=== PATIENT | male | born 1950 | race Caucasian/White ===

== ENCOUNTER 2018-02-12 12:05 | Emergency (ER) | payer MEDICARE, OTHER ==
[~2018-02-12] VITALS: Ht 180.3 cm; Wt 90.8 kg
--- OUTSIDE RECORDS SUMMARY | ~2018-02-12 | XMS | Clinical Summary ---
Demographics + + + | Address | [address] | | | [place] [address] | + + + | Home Phone [...] Team Providers + +------+ + | Care Bereavement Program Coordinator Name | Role | Phone | + +------+ + | Dustin Perez MD | PP | | + +------+ + Source Comments RADHA is fully live on both [facility] Ambulatory and [facility] InPatient.[facility] Allergies Not on File Current Medications Not [...] file Results Not on filefrom Last 3 Months"
--- OUTSIDE RECORDS SUMMARY | ~2018-02-12 | XMS | Clinical Summary ---
Demographics + + + | Address | [address] | | | [place] [address] | + + + | Home Phone | | + + + | Preferred Language | Unknown | + + + | Marital Status | Single | + + + | Taoist Affiliation | NRP | + + + [...] Providers + +------+ + | Care Senior Clinical Project Manager Name | Role | Phone | + +------+ + | Dustin Perez MD | PP | | + +------+ + Source Comments RADHA is fully live on both [facility] Ambulatory and [facility] InPatient.[facility] Allergies Not on File Current [...]
[~2018-02-12 12:05] MED LIST: DAILY MULTIPLE1 EACH PO; DOCUSATE SODIU100 MG PO; DULCOLAX10 MG PR; FLEET ENEMA133 ML PR; FUROSEMIDE40 MG PO; FUROSEMIDE80 MG PO; METOPROLOL SUC100 MG PO; METOPROLOL SUCC50 MG PO; MILK OF MA400 MG/5 M PO; NORCO 7.5-3251 EACH PO; POTASSIUM CHLO20 ME1 PO; SENNA S TABLET1 EA PO; SPIRONOLACTONE25 MG PO
[2018-02-12] MEDS ORDERED: METOPROLOL TART50 MG PO (12:49)
[2018-02-12] MEDS ORDERED: ASPIRIN325 MG PO (12:50)
[2018-02-12] MEDS ORDERED: DIGITEK125 MCG PO (12:50)
[2018-02-12] MEDS ORDERED: GABAPENTIN600 MG PO (12:51)
[2018-02-12] MEDS ORDERED: LACTULOSE20 GM/30 M PO (12:51)
[2018-02-12] MEDS ORDERED: LASIX20 MG PO (12:52)
[2018-02-12] MEDS ORDERED: K-TAB ER20 MEQ PO (14:48)
--- NOTE | 2018-02-12 19:57 | EKG ---
[facility] [address] [facility] [place] [address] Signed Atrial fibrillation Left axis deviation Septal infarct , age undetermined Abnormal ECG When compared with ECG of 01-MAY-2017 09:38, Septal infarct is now present Nonspecific T wave abnormality no longer evident in Inferior leads Confirmed by LINCOLN LOAIZA MD ([id number]) on 02/12/2018 7:57:30 PM Electronically Signed By: LINCOLN LOAIZA MD 02/12/18 1957 PATIENT NAME: DIANE BOTELLO Electrocardiogram DATE OF : 50 PHYSICIAN: LINCOLN LOAIZA MD REPORT #: [id number] REPORT IS CONFIDENTIAL AND NOT TO BE RELEASED WITHOUT AUTHORIZATION
== END 2018-02-12 15:05 | disposition home or self-care (01) ==
LOC: ED 12:05
DX: E87.6 Hypokalemia (principal); E87.1 Hypo-osmolality and hyponatremia; I10 Essential (primary) hypertension; E11.40 Type 2 diabetes mellitus with diabetic neuropathy, unspecified; Z79.899 Other long term (current) drug therapy; Z79.82 Long term (current) use of aspirin
CPT/HCPCS: 80053; 85025; 93005; 93010; 99284; G0480

== ENCOUNTER 2018-09-10 19:58 | Observation (INO) | payer MEDICARE, OTHER ==
[~2018-09-10] VITALS: Ht 180.3 cm; Wt 92.5 kg
--- OUTSIDE RECORDS SUMMARY | ~2018-09-10 | XMS | Clinical Summary ---
Demographics + + + | Address | [address] | | | [place] [address] | + + + | Home Phone | | + + + | Preferred Language | Unknown | + + + | Marital Status | Single | + + + | Scientologist Affiliation | NRP | + + + | Race | White | + + + | Ethnic Group | Other Race | + + + Author + + + | Author | [facility] | + + + | Organization | [facility] | + + + | Address | Unknown | + + + | Phone | Unavailable | + + + Support + + +---------+ + | Name | Relationship | Address | Phone | + + +---------+ + | GREGORIO BOTELLO | ECON | Unknown | | + + +---------+ + Care Team Providers + +------+ + | Care Echo Vascular Tech Name | Role | Phone | + +------+ + | Dustin Perez MD | PP | | + +------+ + Source Comments RADHA is fully live on both [facility] and [facility] InPatient.[facility] Allergies Not on File Current Medications Not on file Active Problems Not on file Social History + +-------+ +--------+------+ | Tobacco [...] on file | | + + + Plan of Treatment Not on file Results Not on filefrom Last 3 Months Insurance + +--------+ +--------+ + + | Payer | Benefi | Subscriber | Type | Phone | Address | | | t Plan | ID | | | | | | / | | | | | | | Group | | | | | + +--------+ +--------+ + + | MEDICARE | MEDICA | xxxxxxxxxx | Medica | +- | [address] | | | RE A & | | re | [phone] | [place] [address] | | | B | | | | | + +--------+ +--------+ + + | MODA MEDICARE | MODA | xxxxxxxxx | POS | +- | [address] [address] | | SUPPLEMENT | MEDICA | | | [address] | [place] [address] | | | RE | | | | | | | SUPPLE | | | | | | | MENT | | | | | + +--------+ +--------+ + + + +--------+ +--------+ + + | Guarantor Name | Accoun | Relation to | Date | Phone | Billing Address | | | t Type | Patient | of | | | | | | | | | | + +--------+ +--------+ + + | DIANE BOTELLO | Person | Self [birth year] Home: | [address] | | | al/Fam | | 1950 | [phone] [address] [place] | | | ursula | | | [phone] | [phone] | + +--------+ +--------+ + +"
--- OUTSIDE RECORDS SUMMARY | ~2018-09-10 | XMS | Clinical Summary ---
Demographics + + + | Address | [address] | | | [place] [address] | + + + | Home Phone | | + + + | Preferred Language | Unknown | + + + | Marital Status | Single | + + + | Islam Affiliation | NRP | + + + [...] Team Providers + +------+ + | Care Shake Splitter Name | Role | Phone | + +------+ + | Dustin Perez MD | PP | | + +------+ + Source Comments RADHA is fully live on both [facility] Ambulatory and [facility] InPatient.[facility] Allergies Not on File Current Medications [...] | re | [phone] | [place] [address] | | | B | | | | | + +--------+ +--------+ + + | MODA MEDICARE | MODA | xxxxxxxxx | POS | +- | [address] [address] | | SUPPLEMENT | MEDICA | | | [address] | [place] [address] | | | RE | | | [...] | ursula | | | [phone] | [phone] | + +--------+ +--------+ + +"
--- OUTSIDE RECORDS SUMMARY | ~2018-09-10 | XMS | Encounter Summary ---
Demographics + + + | Address | [address] | | | [place] [address] | + + + | Home Phone | | + + + | Preferred Language | Unknown | + + + | Marital Status | | + + + | Yazidism Affiliation | Unknown | + + + | Race | Unknown | + + + | Ethnic Group | Unknown | + + + Author + + + | Author | [facility] | + + + | Organization | [facility] [facility] | + + + | Address | Unknown | + + + | Phone | Unavailable | + + + Support + + +---------+ + | Name | Relationship | Address | Phone | + + +---------+ + | Corey An | ECON | Unknown | | + + +---------+ + Care Team Providers + +------+ + | Care Pest Controller Name | Role | Phone | + +------+ + | Dustin Perez MD | PCP | | + +------+ + Encounter Details +--------+ + + + + | Date | Type | Department | Care Team | Description | +--------+ + + + + | 08/26/ | Ancillary | [facility] | Susannah Guo MD | Hypotensive episode | | 2017 | Procedure | ECHO | [address] | | | | | | [place] | | | | | | [address] | | | | | | | | +--------+ + + + + Social History + +-------+ +--------+ + | Tobacco Use | Types | Packs/Day | Years | Date | | | | | Used | | + +-------+ +--------+ + | Former Smoker | | 0.75 | 10 | Quit: 1978 | + +-------+ +--------+ + + +---+---+---+ | Smokeless Tobacco: | | | | | Former User | | | | + +---+---+---+ + + +---------+ + | Alcohol Use | Drinks/We | oz/Week | Comments | | | ek | | | + + +---------+ + | Yes | 42 Cans | 25.2 | | | | of beer | | | + + +---------+ + + + + | Sex Assigned at | Date Recorded | | | | + + + | Not on file | | + + + as of this encounter Plan of Treatment +--------+---------+ + + + | Date | Type | Specialty | Care Team | Description | +--------+---------+ + + + | 10/08/ | Office | Cardiology | John Malin, | | | 2017 | Visit | | MD [address] | | | | | | [place], | | | | | | [place] [address] | | | | | | [phone] | | | | | | | | +--------+---------+ + + + as of this encounter Procedures + +--------+ + + + | Procedure Name | Priori | Date/Time | Associated Diagnosis | Comments | | | ty | | | | + +--------+ + + + | ECHO OUTSIDE | Routin | 08/26/2018 | Hypotensive | Results for this | | INTERPRETATION | e | 11:59 AM | episode | procedure are in the | | STANDARD | | PDT | | results section. | + +--------+ + + + in this encounter Results ECHO outside interpretation standard (08/26/2018 11:59 AM) + + + | Impressions | Performed At | + + + | 1. Overall left ventricular systolic function is normal with, an EF | [facility] | | between 65 - 70 %. 2. The right ventricle is normal in size and | RADIOLOGY | | function. 3. There is mild [...] Monty An Date of : 1950 | [facility] | | Performing Physician: JOHN MALIN MD | RADIOLOGY | | | | | INDICATIONS Hypotensive [...] 3.[address] junct: 2.73 cm | | | LA Diam: 5.29 cm LA Major: 5.75 cm EDV(Teich): 76.40 ml | | | IVSd: 1.12 cm LVIDd: 4.15 cm LVPWd: 1.11 cm LVOT | | | Area: 4.04 cm2 LVOT Diam: 2.27 cm %FS: 26.15 % | | | EF(Teich): 51.72 % ESV(Teich): 36.88 ml LVIDs: 3.06 cm | | | SV(Teich): 39.52 ml RA Major: 5.51 cm RV Major: 5.97 cm | | | RVIDd: 2.70 cm Ao Root: 3.26 cm Ao Diam SVals: 3.33 cm | | | LVEF MOD A2C: 62.83 % SV MOD A2C: 38.89 ml LVEF MOD | | | A4C: 55.79 % SV MOD A4C: 34.12 ml EF Biplane: 58.65 % | | | LVEDV MOD BP: 63.00 ml LVESV MOD BP: 26.05 ml LVEDV MOD | | | A2C: 61.90 ml LVLd A2C: 6.75 cm LVEDV MOD A4C: 61.16 ml | | | LVLd A4C: 7.19 cm LVESV MOD A2C: 23.00 ml LVLs A2C: | | | 5.51 cm LVESV MOD A4C: 27.03 ml LVLs A4C: 6.04 cm | | | LAESV(A-L): 69.96 ml LAESV Index (A-L): 35.33 ml/m2 LAAs | | | A2C: 21.87 cm2 LAESV A-L A2C: 72.13 ml LALs A2C: 5.63 cm | | | LAAs A4C: 21.22 cm2 LAESV A-L A4C: 65.44 ml LALs A4C: | | | 5.84 cm RAAs: 19.08 cm2 RAESV A-L: 51.71 ml RAESV MOD: | | | 49.81 ml RALs: 5.98 cm TAPSE: 2.44 cm AV maxP.91 | | | mmHg AV meanP.88 mmHg AV Vmax: 1.57 m/s AV Vmean: | | | 1.15 m/s AV VTI: 31.23 cm CALI Vmax: 1.51 cm2 CALI (VTI): | | | 1.45 cm2 LVOT maxP.38 mmHg LVOT meanP.74 mmHg LVSI | | | Dopp: 22.93 ml/m2 LVSV Dopp: 45.40 ml LVOT Vmax: 0.58 | | | m/s LVOT Vmean: 0.40 m/s LVOT VTI: 11.22 cm MV A Elliot: | | | 0.22 m/s MV Dec Cavalier: 8.95 m/s2 MV DecT: 108.45 ms MV E | | | Elliot: 0.97 m/s MV E/A Ratio: 4.26 MV PHT: 31.45 ms MVA | | | By PHT: 6.99 cm2 Septal e': 0.08 m/s Septal E/e': 12.09 | | | Lateral e': 0.10 m/s Lateral E/e': 9.28 RAP: 5 mmHg | | | RVSP: 29.30 mmHg TR maxP.30 mmHg TR Vmax: 2.46 m/s | | | Practice Consultant: BJ Authenticated by: JONH MALIN MD Report | | | Date/Time: -- [id number]:[id number] | | + + + + + | Procedure Note | + + | Valdemar, Rad Results In - 08/26/2018 5:30 PM PDT Patient Name: Miladis An of | | : 1950Accession: [id number] Physician: JOHN MALIN MD | | INDICATIONS Hyp | | otensiveCONCLUSIONS 1. Overall left ventricular systolic function is normal | | with, an EF between 65 - 70 %.2. The right ventricle is normal in size and function.3. | | There is mild bi-atrial enlargement. 4. There are no clinically signficant valvular | | abnormalities. 5. There are no clinically significant changes noted in comparison to his | | previous echocardiographic study, done 05/01/17.FINDINGS--------ECG rhythm: Atrial | | fibrillation.Study: A 2-dimensional transthoracic echocardiogram with m-mode, spectral | | and color flow Doppler was perfomed. Study: This was a technically adequate study, | | despite Study: poor subcostal views, unchanged from the prior study.Left Ventricle: | | Overall left ventricular systolic function is normal with, an EF between 65 - 70 %. Left | | Ventricle: The left ventricle cavity size is normal. Left Ventricle: There is mild | | concentric left ventricular hypertrophy. Left Ventricle: No regional wall motion | | abnormalities. Left Ventricle: Atrial fibrillation prevents accurate assessment of | | diastolic function.Right Ventricle: The right ventricle is normal in size and | | function.Left Atrium: The left atrium is mildly enlarged, unchanged from the previous | | study.Right Atrium: The right atrium is mildly enlarged. It was normal in size on the | | previous study.Aortic Valve: The aortic valve appears to be trileaflet. Aortic Valve: | | The non coronary cusp is moderately calcified and immobile, with normal excursion of the | | left and right coronary cusps. Aortic Valve: There is no evidence of aortic | | regurgitation. Aortic Valve: There does not appear to be any significant aortic | | stenosis, with peak/mean pressure gradient of 9.92mmHg / 5.88mmHg, not significantly | | changed from 11/5 mm Hg, as measured on the previous study. The aortic valve area by | | VTI is 1.5cm , 1.56 cm by the continuity equation, although this is reduced | | from 2.12 cm , as calculated on the prior study, with no change in the Aortic | | Valve: maximum velocity across the aortic valve, which is 1.57m/s, and no change in the | | the LVOT diameter measurement. The only difference is a change in the measured LVOT | | velocity from 0.7 m/s previously to 0.6 m/s on the current study.Mitral Valve: The | | mitral valve is normal. Mitral Valve: There is trace mitral regurgitation. Mitral Valve: | | No evidence of MVP.Tricuspid Valve: The tricuspid valve appears structurally normal. | | Tricuspid Valve: Trace tricuspid regurgitation present. Tricuspid Valve: There is no | | obvious evidence of pulmonary hypertension. Tricuspid Valve: The right ventricular | | systolic pressure (pulmonary artery systolic pressure), as measured by Doppler, is 24.8 | | + CVP (which could not be accurately estimated, as the IVC could not be | | visualized).Pulmonic Valve: The pulmonic valve is normal.Pericardium: There is no | | pericardial effusion.IVC/Hepatic Veins: The IVC was not well visualized.Aorta: The | | aortic root, ascending aorta and aortic arch are normal.Mass: No mass | | visualizedThrombus: No clot visualized Thrombus: No vegetation visualized.Septum: No ASD | | observed. Septum: No VSD observed.MEASUREMENTS Ao asc: 3.61 cmAo Diam: | | 3.[address] junct: 2.73 cmLA Diam: 5.29 cmLA Major: 5.75 cmEDV(Teich): 76.40 | | mlIVSd: 1.12 cmLVIDd: 4.15 cmLVPWd: 1.11 cmLVOT Area: 4.04 [id number] Diam: 2.27 | | cm%FS: 26.15 %EF(Teich): 51.72 %ESV(Teich): 36.88 mlLVIDs: 3.06 cmSV(Teich): | | 39.52 mlRA Major: 5.51 cmRV Major: 5.97 cmRVIDd: 2.70 cmAo Root: 3.26 cmAo Diam | | SVals: 3.33 cmLVEF MOD A2C: 62.83 %SV MOD A2C: 38.89 mlLVEF MOD A4C: 55.79 %SV | | MOD A4C: 34.12 mlEF Biplane: 58.65 %LVEDV MOD BP: 63.00 mlLVESV MOD BP: 26.05 | | mlLVEDV MOD A2C: 61.90 mlLVLd A2C: 6.75 cmLVEDV MOD A4C: 61.16 mlLVLd A4C: 7.19 | | cmLVESV MOD A2C: 23.00 mlLVLs A2C: 5.51 cmLVESV MOD A4C: 27.03 mlLVLs A4C: 6.04 | | cmLAESV(A-L): 69.96 mlLAESV Index (A-L): 35.33 ml/m2LAAs A2C: 21.87 [id number] A-L | | A2C: 72.13 mlLALs A2C: 5.63 cmLAAs A4C: 21.22 [id number] A-L A4C: 65.44 mlLALs | | A4C: 5.84 cmRAAs: 19.08 [id number] A-L: 51.71 mlRAESV MOD: 49.81 mlRALs: 5.98 | | cmTAPSE: 2.44 cmAV maxP.91 mmHgAV meanP.88 mmHgAV Vmax: 1.57 m/Brenda | | Vmean: 1.15 m/Brenda VTI: 31.23 cmAVA Vmax: 1.51 cm2AVA (VTI): 1.45 [id number] maxPG: | | 1.38 mmHgLVOT meanP.74 mmHgLVSI Dopp: 22.93 ml/m2LVSV Dopp: 45.40 mlLVOT | | Vmax: 0.58 m/sLVOT Vmean: 0.40 m/sLVOT VTI: 11.22 cmMV A Elliot: 0.22 m/sMV Dec | | Cavalier: 8.95 m/s2MV DecT: 108.45 msMV E Elliot: 0.97 m/sMV E/A Ratio: 4.26 MV PHT: | | 31.45 msMVA By PHT: 6.99 [id number] e': 0.08 m/sSeptal E/e': 12.09 Lateral e': | | 0.10 m/sLateral E/e': 9.28 RAP: 5 mmHgRVSP: 29.30 mmHgTR maxP.30 mmHgTR | | Vmax: 2.46 m/sSonographer: DHAuthenticated by: Dagoberto TORIBIO Date/Time: -- | | [id number]:20:5IMPRESSION:1. Overall left ventricular systolic function is normal | | with, an EF between 65 - 70 %.2. The right ventricle is normal in size and function.3. | | There is mild bi-atrial enlargement. 4. There are no clinically signficant valvular | | abnormalities. 5. There are no clinically significant changes noted in comparison to his | | previous echocardiographic study, done 05/01/17. | |LVIDd: 4.15 cm | |LVPWd: 1.11 [...] A Elliot: 0.22 m/s | |MV Dec Cavalier: 8.95 m/s2 | |MV DecT: 108.45 ms [...] |TR Vmax: 2.46 m/s | | | |Practice Consultant: | |Authenticated by: JOHN MALIN MD | |Report Date/Time: -- [id number]_03:20:5 | | | |IMPRESSION: | |1. Overall [...] echocardiographic study, done 05/01/17. | + + + + + + + | Performing | Address | City/State/Zipcode | Phone Number | | Organization | | | | + + + + + | [facility] | [address] | [place] [address] | | + + + + + in this encounter Visit Diagnoses + + | Diagnosis | + + | Hypotensive episode | + + | Hypotension, unspecified | + +"
--- OUTSIDE RECORDS SUMMARY | ~2018-09-10 | XMS | Clinical Summary ---
Demographics + + + | Address | [address] | | | [place] [address] | + + + | Home Phone | | + + + | Preferred Language | Unknown | + + + | Marital Status | Single | + + + | Mu-Ism Affiliation | NRP | + + + [...] Team Providers + +------+ + | Care Logistic Specialist Name | Role | Phone | + +------+ + | Dustin Perez MD | PP | | + +------+ + Source Comments RADHA is fully live on both [facility] Ambulatory and [facility] InPatient.[facility] Allergies Not on File Current Medications [...] | re | [phone] | [place] [address] | | | B | | | | | + +--------+ +--------+ + + | MODA MEDICARE | MODA | xxxxxxxxx | POS | +- | [address] [address] | | SUPPLEMENT | MEDICA | | | [address] | [place] [address] | | | RE | | | [...] | ursula | | | [phone] | [phone] | + +--------+ +--------+ + +"
--- OUTSIDE RECORDS SUMMARY | ~2018-09-10 | XMS | Clinical Summary ---
Demographics + + + | Address | [address] | | | [place] [address] | + + + | Home Phone | | + + + | Preferred Language | Unknown | + + + | Marital Status | | + + + | Christianity Affiliation | Unknown | + + + | Race | Unknown | + + + | Ethnic Group | Unknown | + + + Author + + + | Author | [facility] | + + + | Organization | [facility] | + + + | Address | Unknown | + + + | Phone | Unavailable | + + + Support + + +---------+ + | Name | Relationship | Address | Phone | + + +---------+ + | Corey An | ECON | Unknown | | + + +---------+ + Care Team Providers + +------+ + | Care Blanket Cutting Machine Operator Name | Role | Phone | + +------+ + | Dustin Perez MD | PP | | + +------+ + Allergies No Known Allergies Current Medications + + +--------+---------+------+------+-------+ | Prescription | Sig. | Disp. | Refills | Star | End | Statu | | | | | | t | Date | s | | | | | | Date | | | + + +--------+---------+------+------+-------+ | digoxin (LANOXIN) | Take 125 mcg by | | | 12/2 | | Activ | | 0.125 MG tablet | mouth daily. | | | 05/01 | | e | | | | | | 17 | | | + + +--------+---------+------+------+-------+ | gabapentin | Take 600 mg by mouth | | | 12/0 | | Activ | | (NEURONTIN) 600 MG | nightly. | | | /20 | | e | | tablet | | | | 17 | | | + + +--------+---------+------+------+-------+ | lactulose | Take 10 mLs by mouth | | | 10/2 | | Activ | | (CHRONULAC) 10 | 3 (three) times | | | 01/29 | | e | | GM/15ML solution | daily. | | | 17 | | | + + +--------+---------+------+------+-------+ | Multiple | Take 1 tablet by | | | | | Activ | | Vitamins-Minerals | mouth daily. | | | | | e | | (MENS MULTIVITAMIN | | | | | | | | PLUS PO) | | | | | | | + + +--------+---------+------+------+-------+ | torsemide | Take 1 tablet by | 60 | 11 | 01/0 | 01/0 | Activ | | (DEMADEX) 20 MG | mouth 2 (two) times | tablet | | 08/01 | 08/01 | e | | tablet | daily. | | | 18 | 19 | | + + +--------+---------+------+------+-------+ | aspirin 325 MG | Take 325 mg by mouth | | | | | Activ | | tablet | daily with | | | | | e | | | breakfast. | | | | | | + + +--------+---------+------+------+-------+ | potassium chloride | Take 20 mEq by mouth | | | | | Activ | | CHANDU GARZA) | 2 (two) times daily | | | | | e | | 20 MEQ tablet | with meals. | | | | | | + + +--------+---------+------+------+-------+ + + +-------+ +------+------+-------+ | Hospital, Clinic, or | Ordered | Route | Frequency | Star | End | Statu | | Other Facility | Dose | | | t | Date | s | | Administered | | | | Date | | | | Medication | | | | | | | + + +-------+ +------+------+-------+ | aspirin EC tablet | 325 mg | PO | Daily With Breakfast | / | 11/ | Activ | | 325 mgIndications: | | | | 08/01 | 03/31 | e | | Persistent atrial | | | | 18 | 18 | | | fibrillation (HCC) | | | | | | | + + +-------+ +------+------+-------+ Active Problems + + + | Problem | Noted Date | + + + | Atrial fibrillation (HCC) | | + + + + + | Overview: persistent, CHADS2 VASc 3, refused anticoagulation | + + + +---+ | Hypertension | | + +---+ | Hypotension (arterial) | | + +---+ | Alcohol abuse | | + +---+ | Cirrhosis, Laennec's (HCC) | | + +---+ Encounters +--------+ + + + + | Date | Type | Specialty | Care Team | Description | +--------+ + + + + | 08/26/ | Ancillary | | Susannah Guo MD | Hypotensive episode | | 2017 | Procedure | | | | +--------+ + + + + | 08/26/ | Ancillary | | Susannah Guo MD | Hypotensive episode | | 2018 | Orders | | | | +--------+ + + + + from Last 3 Months Family History + + +------+ + | Medical History | Relation | Name | Comments | + + +------+ + | Kidney disease | Brother | | | + + +------+ + | Neurologic Disorder | Brother | | quadriplegic (from injury) | + + +------+ + | [...] + +------+ + + Social History + +-------+ +--------+ [...] on file | | + + + Last Filed Vital Signs + + + + | Vital Sign | Reading | Time Taken | + + + + | Blood Pressure | 96/48 | 04/02/2018 2:53 PM PDT | + + + + | Pulse | 96 | 04/02/2018 2:53 PM PDT | + + + + | Temperature | - | - | + + + + | Respiratory Rate | - | - | + + + + | Oxygen Saturation | 97% | 04/02/2018 2:53 PM PDT | + + + + | Inhaled Oxygen | - | - | | Concentration | | | + + + + | Weight | 94.8 kg (209 lb) | 04/02/2018 2:53 PM PDT | + + + + | Height | 180.3 cm (5' 11") | 04/02/2018 2:53 PM PDT | + + + + | Body Mass Index | 29.15 | 04/02/2018 2:53 PM PDT | + + + + Plan of Treatment +--------+---------+ + + + | Date | Type | Specialty | Care Team | Description | +--------+---------+ + + + | 10/08/ | Office | | John Malin, | | | 2017 | Visit | | MD [address] | | | | | | [place], | | | | | | [place] [address] | | | | | | [phone] | | | | | | | | +--------+---------+ + + + + + + + + | Health Maintenance | Due Date | Last Done | Comments | + + + + + | Vaccine: | | | | | Dtap/Tdap/Td (1 - | 9 | | | | Tdap) | | | | + + + + + | Colon Cancer | | | | | Screening | 0 | | | | (Colonoscopy) | | | | + + + + + | Vaccine: Zoster (1 | | | | | of 2) | 0 | | | + + + + + | Vaccine: | | | | | Pneumococcal 65+ | 5 | | | | Low/Medium Risk (1 | | | | | of 2 - PCV13) | | | | + + + + + | Vaccine: Influenza | | | | | (#1) | 8 | | | + + + + [...] section. | + +--------+ + + + from Last 3 Months Results ECHO outside interpretation standard (08/26/2018 11:59 [...] Monty An Date of : 1950 | [facility] | | Performing Physician: JOHN MALIN MD [...] | | | 0.22 m/s MV Dec [place]: 8.95 m/s2 MV DecT: 108.45 ms MV [...] TR Vmax: 2.46 m/s | | | Client Administrator: BJ Authenticated by: JOHN MALIN MD Report | | | Date/Time: -- 55_[id number]_44:20:5 | | + + + + + | Procedure Note | + + | Valdemar, Rad Results In - 08/26/2018 5:30 PM PDT Patient Name: Cece An | | : 1950Accession: [id number] Physician: JOHN MALIN MD | | INDICATIONS [...] cmLVIDd: 4.15 cmLVPWd: 1.11 cmLVOT Area: 4.04 [id number] Diam: 2.27 | | cm%FS: 26.15 %EF(Teich): [...] mlLAESV Index (A-L): 35.33 ml/m2LAAs A2C: 21.87 sw8JQBSE A-L | | A2C: 72.13 mlLALs A2C: 5.63 cmLAAs A4C: 21.22 sl2ZRZDN A-L A4C: 65.44 mlLALs | | A4C: 5.84 cmRAAs: 19.08 bv8TQERU A-L: 51.71 mlRAESV MOD: 49.81 mlRALs: 5.98 | | cmTAPSE: 2.44 cmAV maxP.91 mmHgAV meanP.88 mmHgAV Vmax: 1.57 m/Brenda | | Vmean: 1.15 m/Brenda VTI: 31.23 cmAVA Vmax: 1.51 cm2AVA (VTI): 1.45 rr9WFRW maxPG: | | 1.38 mmHgLVOT meanP.74 mmHgLVSI Dopp: 22.93 ml/m2LVSV Dopp: 45.40 mlLVOT | | Vmax: 0.58 m/sLVOT Vmean: 0.40 m/sLVOT VTI: 11.22 cmMV A [place]: 0.22 m/sMV Dec | | [place]: 8.95 m/s2MV DecT: 108.45 msMV E [place]: 0.97 m/sMV E/A Ratio: 4.26 MV PHT: | | 31.45 msMVA By PHT: 6.99 yp7Iotdew e': 0.08 m/sSeptal E/e': 12.09 Lateral e': | | 0.10 m/sLateral E/e': 9.28 RAP: 5 mmHgRVSP: 29.30 mmHgTR maxP.30 mmHgTR | | Vmax: 2.46 m/sSonographer: DHAuthenticated by: Dagoberto TORIBIO Date/Time: -- | | 26_[id number]_53:20:5IMPRESSION:1. Overall left ventricular systolic function is normal [...] A [place]: 0.22 m/s | |MV Dec [place]: 8.95 m/s2 | |MV DecT: 108.45 ms [...] |TR Vmax: 2.46 m/s | | | |Client Administrator: | |Authenticated by: JOHN MALIN MD | |Report Date/Time: -- 61_[id number]_23:20:5 | | | |IMPRESSION: | |1. Overall [...] | + + + + + | [facility] | [address] | [place] [address] | | + + + + + from Last 3 Months Insurance + +--------+ +------+-------+ + | Payer | Benefi | Subscriber | Type | Phone | Address | | | t Plan | ID | | | | | | / | | | | | | | Group | | | | | + +--------+ +------+-------+ + | MEDICARE | MEDICA | [id number] | | | [address] | | | RE | | | | [place] [address] | | | IP-OP | | | | | + +--------+ +------+-------+ + | ODS HE[employer] PLAN | ODS | [id number] | | | | | | HEALTH | | | | | | | PLAN | | | | | + +--------+ +------+-------+ + + +--------+ +--------+ + + | Guarantor Name | Accoun | Relation to | Date | Phone | Billing Address | | | t Type | Patient | of | | | | | | | | | | + +--------+ +--------+ + + | MONTY AN | Person | Self | [birth year] | Work: | [address] | | | al/Fam | | 1950 | [phone] | [place] | | | ursula | | | [phone] Home: | [address] | | | | | | | | | | | | | [phone] | | | | | | | [address] | | + +--------+ +--------+ + +
--- OUTSIDE RECORDS SUMMARY | ~2018-09-10 | XMS | Encounter Summary ---
Demographics + + + | Address | [address] | | | [place] [address] | + + + | Home Phone | | + + + | Preferred Language | Unknown | + + + | Marital Status | | + + + | Rastafarian Affiliation | Unknown | + + + | Race | Unknown | + + + | Ethnic Group | Unknown | + + + Author + + + | Author | [facility] | + + + | Organization | [facility] | + + + | Address | Unknown | + + + | Phone | Unavailable | + + + Support + + +---------+ + | Name | Relationship | Address | Phone | + + +---------+ + | Corey An | ECON | Unknown | | + + +---------+ + Care Team Providers + +------+ + | Care Asphalt Tamping Machine Operator Name | Role | Phone [...] [place] | | | | | | [address] | | | | | | | [...] | | | | | | [place] [address] | | | | | | [phone] | | | | | | | [...] Monty An Date of : 1950 | [facility] | | Performing Physician: JOHN MALIN MD [...] | | | 0.22 m/s MV Dec [place]: 8.95 m/s2 MV DecT: 108.45 ms MV [...] TR Vmax: 2.46 m/s | | | Waistline Joiner Overlock: BJ Authenticated by: JOHN MALIN MD Report | | | Date/Time: -- 74_[id number]_76:20:5 | | + + + + + | Procedure Note | + + | Valdemar, Rad Results In - 08/26/2018 5:30 PM PDT Patient Name: Miladis An of | | : 1950Accession: [id number] Physician: JOHN MALIN MD | | INDICATIONS [...] cmLVIDd: 4.15 cmLVPWd: 1.11 cmLVOT Area: 4.04 dy2ROAX Diam: 2.27 | | cm%FS: 26.15 %EF(Teich): [...] mlLAESV Index (A-L): 35.33 ml/m2LAAs A2C: 21.87 yp8RUHWF A-L | | A2C: 72.13 mlLALs A2C: 5.63 cmLAAs A4C: 21.22 ia1GLGNQ A-L A4C: 65.44 mlLALs | | A4C: 5.84 cmRAAs: 19.08 et6CMEBH A-L: 51.71 mlRAESV MOD: 49.81 mlRALs: 5.98 | | cmTAPSE: 2.44 cmAV maxP.91 mmHgAV meanP.88 mmHgAV Vmax: 1.57 m/Brenda | | Vmean: 1.15 m/Brenda VTI: 31.23 cmAVA Vmax: 1.51 cm2AVA (VTI): 1.45 sh5GSND maxPG: | | 1.38 mmHgLVOT meanP.74 mmHgLVSI Dopp: 22.93 ml/m2LVSV Dopp: 45.40 mlLVOT | | Vmax: 0.58 m/sLVOT Vmean: 0.40 m/sLVOT VTI: 11.22 cmMV A Elliot: 0.22 m/sMV Dec | | [place]: 8.95 m/s2MV DecT: 108.45 msMV E [place]: 0.97 m/sMV E/A Ratio: 4.26 MV PHT: | | 31.45 msMVA By PHT: 6.99 vn2Jujpjh e': 0.08 m/sSeptal E/e': 12.09 Lateral e': | | 0.10 m/sLateral E/e': 9.28 RAP: 5 mmHgRVSP: 29.30 mmHgTR maxP.30 mmHgTR | | Vmax: 2.46 m/sSonographer: DHAuthenticated by: Dagoberto TORIBIO Date/Time: -- | | 53_53-12-9849_26:20:5IMPRESSION:1. Overall left ventricular systolic function is normal [...] A [place]: 0.22 m/s | |MV Dec [place]: 8.95 m/s2 | |MV DecT: 108.45 ms [...] |TR Vmax: 2.46 m/s | | | |Waistline Joiner Overlock: | |Authenticated by: JOHN MALIN MD | |Report Date/Time: -- 24_30-86-3880_08:20:5 | | | |IMPRESSION: | |1. Overall [...] [facility] | [address] | [place] [address] | | + + + + + in this encounter Visit Diagnoses + + | Diagnosis | + + | Hypotensive episode | + + | Hypotension, unspecified | + +"
--- OUTSIDE RECORDS SUMMARY | ~2018-09-10 | XMS | Clinical Summary ---
Demographics + + + | Address | [address] | | | [place] [address] | + + + | Home Phone | | + + + | Preferred Language | Unknown | + + + | Marital Status | | + + + | Adventist Affiliation | Unknown | + + + | Race | Unknown | + + + | Ethnic Group | Unknown | + + + Author + + + | Author | [facility] | + + + | Organization | [facility] | + + + | Address | Unknown | + + + | Phone | Unavailable | + + + Support + + +---------+ + | Name | Relationship | Address | Phone | + + +---------+ + | Corey An | ECON | Unknown | | + + +---------+ + Care Team Providers + +------+ + | Care Lawn And Garden Technician Name | Role | Phone | [...] | | | | | | [place] [address] | | | | | | [phone] | | | | | | | [...] Monty An Date of : 1950 | [facility] | | Performing Physician: JOHN [...] | | | 0.22 m/s MV Dec [place]: 8.95 m/s2 MV DecT: 108.45 ms MV [...] TR Vmax: 2.46 m/s | | | Kiln Drawer: BJ Authenticated by: JOHN MALIN MD Report | | | Date/Time: -- 62_57-71-8582_13:20:5 | | + + + + + | Procedure Note | + + | Valdemar, Rad Results In - 08/26/2018 5:30 PM PDT Patient Name: Cece An | | : 1950Accession: [id number] Physician: JOHN MALIN MD | | INDICATIONS [...] cmLVIDd: 4.15 cmLVPWd: 1.11 cmLVOT Area: 4.04 us4PKLM Diam: 2.27 | | cm%FS: 26.15 %EF(Teich): [...] mlLAESV Index (A-L): 35.33 ml/m2LAAs A2C: 21.87 ow8QVHLU A-L | | A2C: 72.13 mlLALs A2C: 5.63 cmLAAs A4C: 21.22 xe7GUFOY A-L A4C: 65.44 mlLALs | | A4C: 5.84 cmRAAs: 19.08 np0CJOJX A-L: 51.71 mlRAESV MOD: 49.81 mlRALs: 5.98 | | cmTAPSE: 2.44 cmAV maxP.91 mmHgAV meanP.88 mmHgAV Vmax: 1.57 m/Brenda | | Vmean: 1.15 m/Brenda VTI: 31.23 cmAVA Vmax: 1.51 cm2AVA (VTI): 1.45 vk4DPNG maxPG: | | 1.38 mmHgLVOT meanP.74 mmHgLVSI Dopp: 22.93 ml/m2LVSV Dopp: 45.40 mlLVOT | | Vmax: 0.58 m/sLVOT Vmean: 0.40 m/sLVOT VTI: 11.22 cmMV A [place]: 0.22 m/sMV Dec | | [place]: 8.95 m/s2MV DecT: 108.45 msMV E [place]: 0.97 m/sMV E/A Ratio: 4.26 MV PHT: | | 31.45 msMVA By PHT: 6.99 ac4Dxywzb e': 0.08 m/sSeptal E/e': 12.09 Lateral e': | | 0.10 m/sLateral E/e': 9.28 RAP: 5 mmHgRVSP: 29.30 mmHgTR maxP.30 mmHgTR | | Vmax: 2.46 m/sSonographer: DHAuthenticated by: Dagoberto TORIBIO Date/Time: -- | | 06_51-22-6711_17:20:5IMPRESSION:1. Overall left ventricular systolic function is normal [...] A [place]: 0.22 m/s | |MV Dec [place]: 8.95 m/s2 | |MV DecT: 108.45 ms [...] |TR Vmax: 2.46 m/s | | | |Kiln Drawer: | |Authenticated by: JOHN MALIN MD | |Report Date/Time: -- 05_65-13-0943_17:20:5 | | | |IMPRESSION: | |1. Overall [...] | [address] | [place] [address] | | + + + + + [...] +------+-------+ + | MEDICARE | MEDICA | [id number] | | | [address] | | | RE | | | | [place] [address] | | | IP-OP | | | | | + +--------+ +------+-------+ + | ODS HE[employer] PLAN | ODS | [id number] | | | | | | HEALTH [...] ursula | | | [address] Home: | [address] | | | | | | | | | | | | | +1- | | | | | | | [address] | | + +--------+ +--------+ + +
--- OUTSIDE RECORDS SUMMARY | ~2018-09-10 | XMS | Encounter Summary ---
Demographics + + + | Address | [address] | | | [place] [address] | + + + | Home Phone | | + + + | Preferred Language | Unknown | + + + | Marital Status | | + + + | Confucianism Affiliation | Unknown | + + + | Race | Unknown | + + + | Ethnic Group | Unknown | + + + Author + + + | Author | [facility] | + + + | Organization | [facility] | + + + | Address | Unknown | + + + | Phone | Unavailable | + + + Support + + +---------+ + | Name | Relationship | Address | Phone | + + +---------+ + | Corey An | ECON | Unknown | | + + +---------+ + Care Team Providers + +------+ + | Care Flare Man Name | Role | Phone | [...] episode | | 2018 | Orders | ECHO | [address] | | | | | | [place] | | | | | | [address] | | | | | | | [...] Cardiology | John Malin, | | | 2018 | Visit | | MD [address] | | | | | | [place], | | | | | | [place] [address] | | | | | | [phone] | | | | | | | | +--------+---------+ + + + as of this encounter Results ECHO outside interpretation standard [...] Monty An Date of : 1950 | [facility] | | Performing Physician: JOHN MALIN [...] | | | 0.22 m/s MV Dec [place]: 8.95 m/s2 MV DecT: 108.45 ms MV [...] TR Vmax: 2.46 m/s | | | Catering Staff Member: Authenticated by: JOHN MALIN MD Report | | | Date/Time: -- 01_50-54-8853_93:20:5 | | + + + + + | Procedure Note | + + | Valdemar, Rad Results In - 08/26/2018 5:30 PM PDT Patient Name: Miladis An of | | : 1950Accession: [id number] Physician: JOHN MALIN MD | | INDICATIONS [...] cmLVIDd: 4.15 cmLVPWd: 1.11 cmLVOT Area: 4.04 cq4EPTX Diam: 2.27 | | cm%FS: 26.15 %EF(Teich): [...] mlLAESV Index (A-L): 35.33 ml/m2LAAs A2C: 21.87 hn7JIGCD A-L | | A2C: 72.13 mlLALs A2C: 5.63 cmLAAs A4C: 21.22 ob8CQNIR A-L A4C: 65.44 mlLALs | | A4C: 5.84 cmRAAs: 19.08 tx0QLHPD A-L: 51.71 mlRAESV MOD: 49.81 mlRALs: 5.98 | | cmTAPSE: 2.44 cmAV maxP.91 mmHgAV meanP.88 mmHgAV Vmax: 1.57 m/Brenda | | Vmean: 1.15 m/Brenda VTI: 31.23 cmAVA Vmax: 1.51 cm2AVA (VTI): 1.45 jk6PLGP maxPG: | | 1.38 mmHgLVOT meanP.74 mmHgLVSI Dopp: 22.93 ml/m2LVSV Dopp: 45.40 mlLVOT | | Vmax: 0.58 m/sLVOT Vmean: 0.40 m/sLVOT VTI: 11.22 cmMV A [place]: 0.22 m/sMV Dec | | [place]: 8.95 m/s2MV DecT: 108.45 msMV E [place]: 0.97 m/sMV E/A Ratio: 4.26 MV PHT: | | 31.45 msMVA By PHT: 6.99 gf0Vaibfu e': 0.08 m/sSeptal E/e': 12.09 Lateral e': | | 0.10 m/sLateral E/e': 9.28 RAP: 5 mmHgRVSP: 29.30 mmHgTR maxP.30 mmHgTR | | Vmax: 2.46 m/sSonographer: DHAuthenticated by: Dagoberto TORIBIO Date/Time: -- | | 60_87-63-7082_31:20:5IMPRESSION:1. Overall left ventricular systolic function is normal [...] A [place]: 0.22 m/s | |MV Dec [place]: 8.95 m/s2 | |MV DecT: 108.45 ms [...] |TR Vmax: 2.46 m/s | | | |Catering Staff Member: | |Authenticated by: JOHN MALIN MD | |Report Date/Time: -- 51_30-37-7818_72:20:5 | | | |IMPRESSION: | |1. Overall [...] [facility] | [address] | [place] [address] | | + + + + + in this encounter Visit Diagnoses + + | Diagnosis | + + | Hypotensive episode | + + | Hypotension, unspecified | + +"
--- OUTSIDE RECORDS SUMMARY | ~2018-09-10 | XMS | Encounter Summary ---
Demographics + + + | Address | [address] | | | [place] [address] | + + + | Home Phone | | + + + | Preferred Language | Unknown | + + + | Marital Status | | + + + | Hindu Affiliation | Unknown | + + + | Race | Unknown | + + + | Ethnic Group | Unknown | + + + Author + + + | Author | [facility] | + + + | Organization | [facility] | + + + | Address | Unknown | + + + | Phone | Unavailable | + + + Support + + +---------+ + | Name | Relationship | Address | Phone | + + +---------+ + | Corey An | ECON | Unknown | | + + +---------+ + Care Team Providers + +------+ + | Care Superior Court Justice Name | Role | Phone | + [...] [place] | | | | | | [address] | | | | | | | [...] | | | | | | [place] [address] | | | | | | [phone] | | | | | | | [...] Monty An Date of : 1950 | [facility] | | Performing Physician: JOHN MALIN [...] | | | 0.22 m/s MV Dec [place]: 8.95 m/s2 MV DecT: 108.45 ms MV [...] TR Vmax: 2.46 m/s | | | Coroner Technician: Authenticated by: JOHN MALIN MD Report | | | Date/Time: -- 75_87-75-2997_21:20:5 | | + + + + + | Procedure Note | + + | Valdemar, Rad Results In - 08/26/2018 5:30 PM PDT Patient Name: Miladis An of | | : 1950Accession: [id number] Physician: JOHN MALIN MD | | INDICATIONS [...] cmLVIDd: 4.15 cmLVPWd: 1.11 cmLVOT Area: 4.04 bh8ZITR Diam: 2.27 | | cm%FS: 26.15 %EF(Teich): [...] mlLAESV Index (A-L): 35.33 ml/m2LAAs A2C: 21.87 ta1VQWGK A-L | | A2C: 72.13 mlLALs A2C: 5.63 cmLAAs A4C: 21.22 tp2VANQW A-L A4C: 65.44 mlLALs | | A4C: 5.84 cmRAAs: 19.08 ww0SMZHG A-L: 51.71 mlRAESV MOD: 49.81 mlRALs: 5.98 | | cmTAPSE: 2.44 cmAV maxP.91 mmHgAV meanP.88 mmHgAV Vmax: 1.57 m/Brenda | | Vmean: 1.15 m/Brenda VTI: 31.23 cmAVA Vmax: 1.51 cm2AVA (VTI): 1.45 ms5JSKN maxPG: | | 1.38 mmHgLVOT meanP.74 mmHgLVSI Dopp: 22.93 ml/m2LVSV Dopp: 45.40 mlLVOT | | Vmax: 0.58 m/sLVOT Vmean: 0.40 m/sLVOT VTI: 11.22 cmMV A [place]: 0.22 m/sMV Dec | | [place]: 8.95 m/s2MV DecT: 108.45 msMV E [place]: 0.97 m/sMV E/A Ratio: 4.26 MV PHT: | | 31.45 msMVA By PHT: 6.99 pp3Xwkzny e': 0.08 m/sSeptal E/e': 12.09 Lateral e': | | 0.10 m/sLateral E/e': 9.28 RAP: 5 mmHgRVSP: 29.30 mmHgTR maxP.30 mmHgTR | | Vmax: 2.46 m/sSonographer: DHAuthenticated by: Dagoberto TORIBIO Date/Time: -- | | 74_26-87-3212_47:20:5IMPRESSION:1. Overall left ventricular systolic function is normal [...] A [place]: 0.22 m/s | |MV Dec [place]: 8.95 m/s2 | |MV DecT: 108.45 ms [...] |TR Vmax: 2.46 m/s | | | |Coroner Technician: | |Authenticated by: JOHN MALIN MD | |Report Date/Time: -- 67_14-32-7787_89:20:5 | | | |IMPRESSION: | |1. Overall [...] [facility] | [address] | [place] [address] | | + + + + + in this encounter Visit Diagnoses + + | Diagnosis | + + | Hypotensive episode | + + | Hypotension, unspecified | + +"
--- OUTSIDE RECORDS SUMMARY | ~2018-09-10 | XMS | Clinical Summary ---
Demographics + + + | Address | [address] | | | [place] [address] | + + + | Home Phone | | + + + | Preferred Language | Unknown | + + + | Marital Status | | + + + | Pentecostal Affiliation | Unknown | + + + | Race | Unknown | + + + | Ethnic Group | Unknown | + + + Author + + + | Author | [facility] | + + + | Organization | [facility] | + + + | Address | Unknown | + + + | Phone | Unavailable | + + + Support + + +---------+ + | Name | Relationship | Address | Phone | + + +---------+ + | Corey An | ECON | Unknown | | + + +---------+ + Care Team Providers + +------+ + | Care [place] Agent Name | Role | Phone | + [...] + | 08/26/ | Ancillary | | Susnanah Guo MD | Hypotensive episode | | [...] | | | | | | [place] [address] | | | | | | [phone] | | | | | | | [...] Monty An Date of : 1950 | [facility] | | Performing Physician: JOHN [...] | | | 0.22 m/s MV Dec [place]: 8.95 m/s2 MV DecT: 108.45 ms MV [...] TR Vmax: 2.46 m/s | | | Pipe Bowls Paint Trimmer: BJ Authenticated by: JOHN MALIN MD Report | | | Date/Time: -- [id number]:5 | | + + + + + | Procedure Note | + + | Valdemar, Rad Results In - 08/26/2018 5:30 PM PDT Patient Name: Cece An | | : 1950Accession: [id number] Physician: JOHN MALIN MD | | INDICATIONS [...] cmLVIDd: 4.15 cmLVPWd: 1.11 cmLVOT Area: 4.04 [id number] Diam: 2.27 | | cm%FS: 26.15 %EF(Teich): [...] mlLAESV Index (A-L): 35.33 ml/m2LAAs A2C: 21.87 [id number] A-L | | A2C: 72.13 mlLALs A2C: 5.63 cmLAAs A4C: 21.22 [id number] A-L A4C: 65.44 mlLALs | | A4C: 5.84 cmRAAs: 19.08 [id number] A-L: 51.71 mlRAESV MOD: 49.81 mlRALs: 5.98 | | cmTAPSE: 2.44 cmAV maxP.91 mmHgAV meanP.88 mmHgAV Vmax: 1.57 m/Brenda | | Vmean: 1.15 m/Brenda VTI: 31.23 cmAVA Vmax: 1.51 cm2AVA (VTI): 1.45 mg5TMGN maxPG: | | 1.38 mmHgLVOT meanP.74 mmHgLVSI Dopp: 22.93 ml/m2LVSV Dopp: 45.40 mlLVOT | | Vmax: 0.58 m/sLVOT Vmean: 0.40 m/sLVOT VTI: 11.22 cmMV A [place]: 0.22 m/sMV Dec | | [place]: 8.95 m/s2MV DecT: 108.45 msMV E [place]: 0.97 m/sMV E/A Ratio: 4.26 MV PHT: | | 31.45 msMVA By PHT: 6.99 uj4Lkbhal e': 0.08 m/sSeptal E/e': 12.09 Lateral e': | | 0.10 m/sLateral E/e': 9.28 RAP: 5 mmHgRVSP: 29.30 mmHgTR maxP.30 mmHgTR | | Vmax: 2.46 m/sSonographer: DHAuthenticated by: Dagoberto TORIBIO Date/Time: -- | | [id number]:20:5IMPRESSION:1. Overall left ventricular systolic function is normal [...] A [place]: 0.22 m/s | |MV Dec [place]: 8.95 m/s2 | |MV DecT: 108.45 ms [...] |TR Vmax: 2.46 m/s | | | |Pipe Bowls Paint Trimmer: | |Authenticated by: JOHN MALIN MD | |Report Date/Time: -- [id number]:20:5 | | | |IMPRESSION: | |1. Overall [...] | [address] | [place] [address] | | + + + + + [...] +------+-------+ + | MEDICARE | MEDICA | [id number] | | | [address] | | | RE | | | | [place] [address] | | | IP-OP | | | | | + +--------+ +------+-------+ + | [employer] | ODS | [id number] | | | | | | HEALTH [...] ursula | | | [address]: | [address] | | | | | | | | | | | | | +1- | | | | | | | [address] | | + +--------+ +--------+ + +
--- OUTSIDE RECORDS SUMMARY | ~2018-09-10 | XMS | Encounter Summary ---
Demographics + + + | Address | [address] | | | [place] [address] | + + + | Home Phone | | + + + | Preferred Language | Unknown | + + + | Marital Status | | + + + | Buddhism Affiliation | Unknown | + + + | Race | Unknown | + + + | Ethnic Group | Unknown | + + + Author + + + | Author | [facility] | + + + | Organization | [facility] [facility] | + + + | Address | Unknown | + + + | Phone | Unavailable | + + + Support + + +---------+ + | Name | Relationship | Address | Phone | + + +---------+ + | Corey An | ECON | Unknown | | + + +---------+ + Care Team Providers + +------+ + | Care Junior Linux Administrator Name | Role | Phone | + [...] [place] | | | | | | [address] | | | | | | | [...] | | | | | | [place] [address] | | | | | | [phone] | | | | | | | [...] Monty An Date of : 1950 | [facility] | | Performing Physician: JOHN [...] | | | 0.22 m/s MV Dec [place]: 8.95 m/s2 MV DecT: 108.45 ms MV [...] TR Vmax: 2.46 m/s | | | Infrastructure Developer: BJ Authenticated by: JOHN MALIN MD Report | | | Date/Time: -- [id number]:20:5 | | + + + + + | Procedure Note | + + | Valdemar, Rad Results In - 08/26/2018 5:30 PM PDT Patient Name: Miladis An of | | : 1950Accession: [id number] Physician: JOHN MALIN MD | | INDICATIONS [...] cmLVIDd: 4.15 cmLVPWd: 1.11 cmLVOT Area: 4.04 [id number] Diam: 2.27 | | cm%FS: 26.15 %EF(Teich): [...] mlLAESV Index (A-L): 35.33 ml/m2LAAs A2C: 21.87 [id number] A-L | | A2C: 72.13 mlLALs A2C: 5.63 cmLAAs A4C: 21.22 [id number] A-L A4C: 65.44 mlLALs | | A4C: 5.84 cmRAAs: 19.08 [id number] A-L: 51.71 mlRAESV MOD: 49.81 mlRALs: 5.98 | | cmTAPSE: 2.44 cmAV maxP.91 mmHgAV meanP.88 mmHgAV Vmax: 1.57 m/Brenda | | Vmean: 1.15 m/Brenda VTI: 31.23 cmAVA Vmax: 1.51 cm2AVA (VTI): 1.45 gh3LFQS maxPG: | | 1.38 mmHgLVOT meanP.74 mmHgLVSI Dopp: 22.93 ml/m2LVSV Dopp: 45.40 mlLVOT | | Vmax: 0.58 m/sLVOT Vmean: 0.40 m/sLVOT VTI: 11.22 cmMV A Elliot: 0.22 m/sMV Dec | | [place]: 8.95 m/s2MV DecT: 108.45 msMV E Elliot: 0.97 m/sMV E/A Ratio: 4.26 MV PHT: | | 31.45 msMVA By PHT: 6.99 [id number] e': 0.08 m/sSeptal E/e': 12.09 Lateral e': | | 0.10 m/sLateral E/e': 9.28 RAP: 5 mmHgRVSP: 29.30 mmHgTR maxP.30 mmHgTR | | Vmax: 2.46 m/sSonographer: DHAuthenticated by: Dagoberto TORIBIO Date/Time: -- | | 10_[id number]_65:20:5IMPRESSION:1. Overall left ventricular systolic function is normal [...] A Elliot: 0.22 m/s | |MV Dec [place]: 8.95 m/s2 | |MV DecT: 108.45 ms [...] |TR Vmax: 2.46 m/s | | | |Infrastructure Developer: | |Authenticated by: JOHN MALIN MD | |Report Date/Time: -- 11_[id number]_64:20:5 | | | |IMPRESSION: | |1. Overall [...] [facility] | [address] | [place] [address] | | + + + + + in this encounter Visit Diagnoses + + | Diagnosis | + + | Hypotensive episode | + + | Hypotension, unspecified | + +"
--- OUTSIDE RECORDS SUMMARY | ~2018-09-10 | XMS | Encounter Summary ---
Demographics + + + | Address | [address] | | | [place] [address] | + + + | Home Phone | | + + + | Preferred Language | Unknown | + + + | Marital Status | | + + + | Episcopal Affiliation | Unknown | + + + | Race | Unknown | + + + | Ethnic Group | Unknown | + + + Author + + + | Author | [facility] | + + + | Organization | [facility] | + + + | Address | Unknown | + + + | Phone | Unavailable | + + + Support + + +---------+ + | Name | Relationship | Address | Phone | + + +---------+ + | Corey An | ECON | Unknown | | + + +---------+ + Care Team Providers + +------+ + | Care Property Assistant Name | Role | Phone | [...] [place] | | | | | | [address] | | | | | | | [...] | | | | | | [place] [address] | | | | | | [phone] | | | | | | | [...] An Date of : 1950 | [facility] | | Performing Physician: JOHN MALIN [...] | | | 0.22 m/s MV Dec Cass: 8.95 m/s2 MV DecT: 108.45 ms MV [...] TR Vmax: 2.46 m/s | | | Human Resources Professional: Authenticated by: JOHN MALIN MD Report | | | Date/Time: -- 45_[id number]_35:20:5 | | + + + + + | Procedure Note | + + | Valdemar, Rad Results In - 08/26/2018 5:30 PM PDT Patient Name: Miladis An of | | : 1950Accession: [id number] Physician: JOHN MALIN MD | | INDICATIONS [...] cmLVIDd: 4.15 cmLVPWd: 1.11 cmLVOT Area: 4.04 [id number] Diam: 2.27 | | cm%FS: 26.15 %EF(Teich): [...] mlLAESV Index (A-L): 35.33 ml/m2LAAs A2C: 21.87 [id number] A-L | | A2C: 72.13 mlLALs A2C: 5.63 cmLAAs A4C: 21.22 [id number] A-L A4C: 65.44 mlLALs | | A4C: 5.84 cmRAAs: 19.08 [id number] A-L: 51.71 mlRAESV MOD: 49.81 mlRALs: 5.98 | | cmTAPSE: 2.44 cmAV maxP.91 mmHgAV meanP.88 mmHgAV Vmax: 1.57 m/Brenda | | Vmean: 1.15 m/Brenda VTI: 31.23 cmAVA Vmax: 1.51 cm2AVA (VTI): 1.45 [id number] maxPG: | | 1.38 mmHgLVOT meanP.74 mmHgLVSI Dopp: 22.93 ml/m2LVSV Dopp: 45.40 mlLVOT | | Vmax: 0.58 m/sLVOT Vmean: 0.40 m/sLVOT VTI: 11.22 cmMV A Elliot: 0.22 m/sMV Dec | | Cass: 8.95 m/s2MV DecT: 108.45 msMV E Elliot: 0.97 m/sMV E/A Ratio: 4.26 MV PHT: | | 31.45 msMVA By PHT: 6.99 [id number] e': 0.08 m/sSeptal E/e': 12.09 Lateral e': | | 0.10 m/sLateral E/e': 9.28 RAP: 5 mmHgRVSP: 29.30 mmHgTR maxP.30 mmHgTR | | Vmax: 2.46 m/sSonographer: DHAuthenticated by: Dagoberto TORIBIO Date/Time: -- | | 86_[id number]_59:20:5IMPRESSION:1. Overall left ventricular systolic function is normal [...] A Elliot: 0.22 m/s | |MV Dec Cass: 8.95 m/s2 | |MV DecT: 108.45 ms [...] |TR Vmax: 2.46 m/s | | | |Human Resources Professional: | |Authenticated by: JOHN MALIN MD | |Report Date/Time: -- 29_01-54-4383_06:20:5 | | | |IMPRESSION: | |1. Overall [...] [facility] | [address] | [place] [address] | | + + + + + in this encounter Visit Diagnoses + + | Diagnosis | + + | Hypotensive episode | + + | Hypotension, unspecified | + +"
[~2018-09-10 19:58] MED LIST changes: +ASPIRIN EC81 MG PO; +ASPIRIN325 MG PO; +DEMADEX20 MG PO; +DIGITEK125 MCG PO; +GABAPENTIN600 MG PO; +K-TAB ER20 MEQ PO; +LACTULOSE20 GM/30 M PO; +LASIX20 MG PO; +LIDODERM1 EACH TD; +METOPROLOL TART50 MG PO; +MIDODRINE HCL10 MG PO; +POLY-VITAMIN1 EACH PO
--- OUTSIDE RECORDS SUMMARY | 2018-09-10 20:02 | XMS ---
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 E.D. VISIT COUNT (12 MO.) 3 [facility]INE Patel TOTAL 3 NOTE: Visits indicate total known visits. ED/UCC VISIT TRACKING (12 MO.) 09/10/2018 19:59 [facility] [place] TYPE: Emergency COMPLAINT: - ABD PAIN 08/23/2018 12:32 [facility] [place] TYPE: Emergency COMPLAINT: - WEAKNESS 02/12/2018 12:[address] 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
[2018-09-10] MEDS ORDERED: TYLENOL EXTRA500 MG PO (20:29)
[2018-09-10] MEDS ORDERED: MELATONIN1 MG PO (20:30)
[2018-09-10] MEDS ORDERED: MILK OF MA400 MG/5 M PO (20:30)
[2018-09-10] MEDS ORDERED: DULCOLAX10 MG PR (20:33)
[2018-09-10] MEDS ORDERED: FLEET ENEMA133 ML PR (20:33)
--- NOTE | 2018-09-10 22:39 | EKG ---
[facility] [address] [facility] [place] [address] Signed Atrial fibrillation with rapid ventricular response Left axis deviation Anterior infarct , age undetermined ST \T\ T wave abnormality, consider lateral ischemia Abnormal ECG When compared with ECG of 23-AUG-2018 13:27, Anterior infarct is now present T wave inversion now evident in Anterolateral leads Confirmed by KATHRYN KHALIL MD ([id number]) on 09/10/2018 10:39:26 PM Electronically Signed By: KATHRYN KHALIL MD 09/10/18 2239 PATIENT NAME: DIANE BOTELLO Electrocardiogram DATE OF : 50 PHYSICIAN: KATHRYN KHALIL MD REPORT #: [id number] REPORT IS CONFIDENTIAL AND NOT TO BE RELEASED WITHOUT AUTHORIZATION
--- NOTE | 2018-09-11 01:30 | NUR ---
ADMIT TO CCU PER STRETCHER AT 0010. IS ALERT AND ORIENTED AND COOPERATIVE. INC OF WATERY GREEN STOOL AND ATTENDS CHANGED ON ADMISSION. SKIN TO GUTIERREZ RECTAL AREA IS REDDENED AND EXCORIATED. MOISTURE BARIER APPLIED. RHYTHM IS AFIB RATE ALIYAH TO 106 BUT INC TO 150'S WHEN HAD EMESIS. PT HAD LARGE GREEN EMESIS. DR KHALIL CALLED AND PT GIVEN IV ZOFRAN. BED CHANGED, INC AGAIN OF LARGE WATERY STOOL, SPEC SENT. NAUSEA SUBSIDED AND PT ABLE TO TAKE PO PILLS. READY FOR SLEEP.
--- NOTE | 2018-09-11 02:00 | NUR ---
INC LARGE WATERY GREEN STOOL. ATTENDS CHANGED.
--- NOTE | 2018-09-11 03:13 | NUR ---
PT CALLED SAYING HE HAS STOMACH PAIN. ADMINISTERED TYLENOL AT THIS TIME. HE DENIES FURTHER NEEDS. CALL LIGHT IS WITHIN REACH.
--- NOTE | 2018-09-11 04:22 | NUR ---
PT REPORTED ABD PAIN WORSENING, BUT GOT SOMEWHAT BETTER WHEN DISTRACTED BY TALKING WITH STAFF. PT POINTS TO EPIGASTRIC AREA TO SHOW WHERE PAIN IS, AREA SL TENDER TO PALP NO GUARDING NOTED. PT HAS NOT VOIDED SINCE PRESENTING TO ED. BLADDER SCANNED FOR 22ML. DR KHALIL NOTIFIED OF LACK OF URINE AND OF ABD PAIN. IVF INCREASED TO 150ML/HR. WILL CONT TO MONITOR PAIN IT WAXES AND WANES.
--- NOTE | 2018-09-11 05:32 | NUR ---
PT CALLED AFTER LAB ENTERED THE ROOM, HE HAD 350 OF EMESIS.
--- NOTE | 2018-09-11 05:45 | NUR ---
DR KHALIL CALLED HR HAS BEEN SUSTAINED 140-150'S ORDER FOR DILTAZM BOLUS AND INFUSION RECIEVED.
--- NOTE | 2018-09-11 06:02 | NUR ---
PT GIVEN 10MG BOLUS CARDIZEM AND INFUSTION STARTED. WAS INC OF LIQ GREEN STOOL, ATTENDS CHANGED AND BARRIER CREAM APPLIED. REDNESS TO GUTIERREZ RECTAL AREA IS SL LESS RED NOW.
--- NOTE | 2018-09-11 06:35 | NUR ---
HR 100-115 ON CARDIZEM AT 5MG/HR.
--- NOTE | 2018-09-11 06:48 | NUR ---
PT IS SLEEPING.
--- NOTE | 2018-09-11 07:30 | NUR ---
PT RESTING IN BED AT THIS TIME. PT CALLS APPROPRIATELY. WILL CONTINUE TO CLOSELY MONITOR.
--- NOTE | 2018-09-11 08:58 | NUR ---
PT CALLED, PT HAS HAD 3 LOOSE BMS SINCE 729. PT BEDDING CHANGED. MEDICATIONS ADMINISTERED. LUNGS CLEAR AND PT IS ON RA. PT BOWEL TONES ACTIVE. PT COMPLAINS ON OCCASIONAL EPIGASTRIC "CRAMPING". PT BLADDER SCANNED FOR 173MLS. WILL CALL MD TO UPDATE. WILL CONTINUE TO CLOSELY MONITOR.
[2018-09-11] MEDS ORDERED: LANOXIN125 MCG PO ×2 (09:54)
--- NOTE | 2018-09-11 10:00 | NUR ---
MD IS IN THE UNIT TO SEE PATIENT. PER MD WILL ORDER ULTRASOUND FOR FOLLOW-UP OF GREEN BILE LIQUID STOOL AND ABD PAIN. MD AWARE THAT PT HAS NOT URINATE, BUT BLADDER SCAN SHOWS 173MLS IN BLADDER. PER MD WILL CONTNIUE TO HYDRATE AND MONITOR.
--- NOTE | 2018-09-11 11:45 | NUR ---
PT CARDIZEM GTT TURNED OFF AT 1145. WILL CONTINUE TO CLOSELY MONITOR VITAL SIGNS.
--- NOTE | 2018-09-11 12:18 | NUR ---
CALLED MD TO UPDATE THAT PT ULTRASOUND RESULTS ARE BACK. WILL CONTINUE TO CLOSELY MONITOR.
--- NOTE | 2018-09-11 13:00 | NUR ---
BLADDER SCANNED FOR 183MLS OF URINE IN THE BLADDER. UPDATED MD. PER MD NO NEW ORDERS AT THIS TIME. MD WILL BE OVER TO SEE PATIENT. WILL OCNTINUE TO CLOSELY MONITOR.
--- NOTE | 2018-09-11 13:57 | NUR ---
PT IS ALERT, LABORS TO TALK. SEEMED PLEASED I STOPPED BY. TODAY HE ADMITTED HAS BEEN HARD, AND HE THEN TOLD ME THAT IF THIS IS HIS LAST DAY, HE HAS LIVED A GOOD LIFE. I ASKED HIS IF HE BELIEVED IN A LIFE AFTER THIS ONE, HE STATED, "I BELIEVE I WILL WALK DOWN A LONG MORALES, AND SHERYL WILL BE THERE TO MEET ME". HIS WISH IS THAT HE HAS MADE SOME KIND OF POSITIVE DIFFERENCE IN THIS LIFE, AND THAT SOME GOOD WILL LIVE ON BEYOND HIM. PT REQUESTED I PRAY FOR THOSE THAT WERE KILLED AND THE FAMILIES IN THE [facility] IN [place] LAST WEEK, WHICH I DID AND FOR HIM. WILL FOLLOW NEEDED
--- NOTE | 2018-09-11 14:11 | NUR ---
IN TO SEE PATIENT. PT WILL HAVE A CT DONE FOR FURTHER EVALUATION. NO ZAPATA AT THIS TIME. WILL CONTINUE TO CLOSELY MONITOR KIDNEY FUNCTION WITH LABS AND BLADDER SCANNER.
--- NOTE | 2018-09-11 15:00 | NUR ---
PER MD INSERT RECTAL TUBE FOR CLOSE I/O MONITORING AND TO PROTECT SKIN FROM CONTINUED BREAKDOWN D/T CONTINUOUS STOOLS. WILL CONTINUE TO CLOSELY MONITOR. PT TOELRATED TUBE INSERTION WELL. WILL CONTINUE TO CLOSELY MONITOR.
--- NOTE | 2018-09-11 17:30 | NUR ---
THIS RN WENT WITH PATIENT TO CT SCAN. PT TOLERATED WELL WITH NO ISSUES. PT BACK TO UNIT AND RESTING IN BED AT THIS TIME. WILL CONTINUE TO CLOSELY MONITOR.
--- NOTE | 2018-09-11 18:00 | NUR ---
PT RESTING ON HIS SIDE TO GIVE HIS BOTTOM SOME "AIR". PT BOTOM REMAINS RED AND EXCORIATED. RESTAL TUBE IN PLACE WITH ABOUT 300MLS OUTPUT PRESENT.
--- NOTE | 2018-09-11 18:41 | NUR ---
IN TO SPEAK WITH PATIENT ABOUT FURTHER TREATMENT OPTIONS. PT WILL HAVE A COLONOSCOPY TOMMOROW. PT WILL BE NPO AFTER MIDNIGHT. PT IS AGREEABLE TO THESE PLANS. WILL CONTINUE TO CLOSELY MONITOR.
--- NOTE | 2018-09-11 19:18 | NUR ---
fentanyl 25 mcg iv given for ABD PAIN.
--- NOTE | 2018-09-11 19:30 | NUR ---
PT RESTING WITH EYES CLOSED, RESP EVEN AND UNLABORED, RECENTLY GIVEN PAIN MED BY DAY SHIFT NURSE. APPEARS COMFORTABLE.
--- NOTE | 2018-09-11 21:15 | NUR ---
HS MEDS GIVEN, ASSESSMENT DONE. PT ALERT AND ORIENTED. DENIES NEEDS AT THIS TIME. TOOK PILLS WELL.
--- NOTE | 2018-09-11 22:15 | NUR ---
PT CALLS FOR PAIN MED FOR 7/10 ABDOMINAL PAIN. 25MCG IV FENTANYL GIVEN. PT REPOSITIONED, SOME STOOL LEAKING OUT AROUND RECTAL TUBE, GUTIERREZ AREA CLEANED AND AREA REDDENED, BARRIER CREAM APPLIED.
--- NOTE | 2018-09-11 23:00 | NUR ---
PT SLEEPING AFTER PAIN MED GIVEN, RESP EVEN AND UNLABORED AND HR 100'S AFIB.
--- NOTE | 2018-09-12 00:35 | NUR ---
PT CALLS FOR PAIN MED FOR 7/10 BACK AND ABDOMINAL PAIN. 25MCG IV FENTANYL GIVEN. ASSESSMENT DONE AND UNCHANGED FROM PREVIOUS. RESTING HR 100'S AFIB.
--- NOTE | 2018-09-12 00:45 | NUR ---
PT APPEARS TO BE SLEEPING AFTER PAIN MED, RESP EVEN UNLABORED, HR 100.
--- NOTE | 2018-09-12 03:58 | NUR ---
PT CALLS FOR PAIN MEDICINE, HAD BEEN SLEEPING BUT NOW AWAKE AND WANTING TO TALK. TALKED WITH PT A WHILE THEN ENCOURAGED PT TO TRY TO SLEEP. 25 MCG IV FENTANYL GIVEN.
--- NOTE | 2018-09-12 07:20 | NUR ---
DR MALAVE IN TO SEE PT AND ASSESS FOR PLAN FOR SCOPE LATER TODAY. PT WAS FINALLY ABLE TO VOID 250ML DARK TEA LIKE URINE.
--- NOTE | 2018-09-12 08:00 | NUR ---
Pt is resting in bed watching tv.
--- NOTE | 2018-09-12 08:03 | CONS ---
[facility] [address], [place] [address] Signed DATE OF CONSULTATION: 09/12/2018 CHIEF COMPLAINT: Generalized abdominal pain and diarrhea. HISTORY OF PRESENT ILLNESS: Diane is a 68-year-old gentleman, who is single, lives alone, although he does have two children. He no longer drives. He has a long standing alcoholic with alcoholic cirrhosis. It is from what he tells me, he developed diarrhea and generalized abdominal pain with anorexia and became progressively weaker. He was having nausea and dark urine. He ended up in the hospital with uncontrolled atrial fibrillation on our Internal Medicine Service. He had been treated and was sent to [facility] for ongoing recovery. Unfortunately, he still was not doing well at the local fdc, so he was brought back to the emergency room. He has been readmitted to the Internal Medicine Service. He is very sensitive apparently to Cardizem, so therefore he takes digoxin chronically. His digoxin level course was low. He has been slowly going back on his digoxin. In the meantime, he was still having the generalized abdominal pain. An ultrasound was performed and of course he has a nodular liver. He has a contracted gallbladder with multiple small stones. Common bile duct was unremarkable. However, the transverse colon looked thickened on the ultrasound. Consequently, a followup CT scan was performed and this showed the chronic right pleural effusion with saav-cy-pcwcfwas ascites, nodular liver, but all of his small bowel and large bowel are significantly thickened with haziness in the mesentery and multiple small lymph nodes. Consequently, I was asked to see Diane in consultation. Specifically requested for colonoscopy with possible biopsy. Diane tells me he has never had a previous colonoscopy. He thinks maybe his dad had a couple of colonic polyps. 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 PAST SURGICAL HISTORY: None. SOCIAL HISTORY: He does smoke. He quit drinking several weeks ago. He is single and lives alone in his apartment. He no longer drives. He has two children. Dr. Rio Perez his primary care provider. He was recently at [facility]. FAMILY HISTORY: He thinks his dad may have had some colonic polyps. Electronically Signed By: JOHNNIE MALAVE MD 09/12/18 0803 PATIENT NAME: DIANE BOTELLO CONSULTATION DATE OF : 50 REPORT #: [id number] PHYSICIAN: JOHNNIE MALAVE MD PCP: RIO PEREZ MD REPORT IS CONFIDENTIAL AND NOT TO BE RELEASED WITHOUT AUTHORIZATION [facility] [address], [place] [address] Signed REVIEW OF SYSTEMS: I reviewed 10 systems with Diane, the best we could. He answers slowly, but appropriately. There were no new additions. ALLERGIES: None. MEDICATIONS: Multivitamin, digoxin, aspirin, gabapentin, torsemide, and potassium. PHYSICAL EXAMINATION: VITAL SIGNS: Blood pressure is 122/90, heart rate is 123 in atrial defibrillation, respiratory rate 15, temperature is 97.8, he is 99% on 2 L. He is 5 feet 11 inches, 80 kg. GENERAL: Diane is a 68-year-old gentleman, who is generally clear to auscultation anteriorly, but he has decreased right base. HEART: Irregular, regular. ABDOMEN: Mild to moderately protuberant, but soft. Minimal diffuse tenderness. No peritonitis. He clearly has a reducible umbilical hernia. LABORATORY DATA: His white blood cell count is 8.8, his neutrophils are 80, hemoglobin 13. His BUN 14, creatinine 1.0, pre BUN 3.9. His urinalysis showed some bacteria and blood, although he has no Beebe. His digoxin is low at 0.50. The C. diff toxin is pending. Stool was sent off for culture and it was negative for white blood cells and the cultures are pending. RADIOGRAPHIC STUDIES: The ultrasound showed a contracted gallbladder with stones, a nodular liver and the moderate ascites and a thickened transverse colon. CT scan confirmed the right pleural effusion, ndfb-re-degzumbx ascites, nodular liver and all the small bowel and large bowel are significantly thickened with hazy mesentery and multiple small lymph nodes. ASSESSMENT AND PLAN: Diane is a 68-year-old gentleman, a long-time alcoholic, who appears to have some type of viral gastroenteritis with anorexia and dehydration. Of course, his digoxin levels are low and he has a rapid ventricular heart rate with his atrial fibrillation. He tells me he has never had a colonoscopy and his dad had colonic polyps. I explained to Diane that I have been asked to see him for colonoscopy, probably limited colonoscopy as we would not be able to put him through a bowel prep, also some biopsies. Of course, he would be sedated during the procedure as well. He understands there is risk including, but not limited to gas, bloating, crampy abdominal pain, bleeding, perforation, requiring surgery, and missed diagnosis. He expressed understanding and wished to proceed. Hopefully, we were able to do this later today around the evening. He has expressed Electronically Signed By: JOHNNIE MALAVE MD 09/12/18 0803 PATIENT NAME: DIANE BOTELLO CONSULTATION DATE OF : 50 REPORT #: [id number] PHYSICIAN: JOHNNIE MALAVE MD PCP: RIO PEREZ MD REPORT IS CONFIDENTIAL AND NOT TO BE RELEASED WITHOUT AUTHORIZATION [address] [place] [address] Signed understanding and agrees with the above plan. Johnnie Malave MD ALB/MODL /[id number] cc: MD Johnnie Marie MD Copies: RIO PEREZ MD, ANDREW L MD ~ Electronically Signed By: JOHNNIE MALAVE MD 09/12/18 0803 PATIENT NAME: DIANE BOTELLO CONSULTATION DATE OF : 50 REPORT #: [id number] PHYSICIAN: JOHNNIE MALAVE MD PCP: RIO PEREZ MD REPORT IS CONFIDENTIAL AND NOT TO BE RELEASED WITHOUT AUTHORIZATION
--- NOTE | 2018-09-12 08:30 | NUR ---
PT IS AWAKE AND HAS BEEN NPO SINCE MIDNIGHT. GAVE SOME AM MEDICATIONS WITH A SIP OF WATER. PT IS SCHEDULED FOR A COLONOSCOPY THIS AM AND WILL GO DOEN TO THE OR AREA ABOUT 10 TO 10:30 THIS AM. CONSENT SIGNED AND ON THE CHART.
--- NOTE | 2018-09-12 10:00 | NUR ---
Changed bag of pt rectal tube drainage bag, 350ml
--- NOTE | 2018-09-12 10:14 | NUR ---
PT TRANSFED TO [place] TO GO TO THE OR. COURT BAIL[facility] OR [facility] [place] WITH WITH PT ALSO.
--- NOTE | 2018-09-12 11:11 | NUR ---
09/12/18 1111 Cassie Whitaker7-PATIENT ARRIVED BACK TO ROOM 128 ON RA AWAKE DENIES PAIN OR NAUSEA. RR EVEN. AFIB HR 111-118. RECTAL BAG IN PLACE. IVF INFUSING. ABDOMEN SOFT. 1110-GLUCOSE CHECKED 122. PATIENT COUGHING PRODUCTIVE COUGH CLEAR SPUTUM. AFIB HR 119. DENIES PAIN OR NAUSEA.
--- NOTE | 2018-09-12 11:34 | NUR ---
PT RETURNED FROM PACU, PT PLACED IN CONTRACT ISOLATION AT THIS TIME.
--- NOTE | 2018-09-12 11:44 | NUR ---
PT PLACED IN CONTACT PRECAUTIONS-AZAR FORMAN RECOMMENDED I NOT VISIT AT THIS TIME. WILL FOLLOW NEEDED
--- NOTE | 2018-09-12 14:31 | NUR ---
PT SON CALLED THIS AFTERNOON, ALL QUESTIONS ANSWERED AT THIS TIME. PT IS CURENTTLY ASLEEP APPEARS TO BE RESTING COMFORTABLE AT THIS TIME. STOOL FROM THE RECTAL TUBE HAS SLOWED DOWN COMPARED TO EARLY IN THE SHIFT.
--- NOTE | 2018-09-12 15:00 | NUR ---
PT GIVEN COMPLETE BED BATH AND LINE CHANGE THIS SHIFT. PT HAS BEEN VERY PLEASENT WITH THE PROCESS. RECTAL TUBE REMAINS INPLACE, DRAINING GREEN IN COLOR STOOL. PT IS IN CONTACT ISOLATION. PT ROOM DOOR REMAINS CLOSED WITH HIS CALL LIGHT WITHIN REACH. THIS ELECTRICIAN SUPERVISOR AIRPLANE AGREES WITH STUDENT NURSE FROM [facility] AKIKO Puente CHARTING.
--- NOTE | 2018-09-12 17:25 | NUR ---
REPOSTIONED PT IN BED AND ASSISTED FEEDING PT DINNER, HE REFUSES TO FEED HIMSELF.
--- NOTE | 2018-09-12 18:01 | NUR ---
PT ATE POOLY FOR DINNER ABOUT HALF OF THE CUP OF SOUP. PT ASKED FOR CURTINE TO BE PULLED SO HE COULD TRY TO VOID. PT RECTAL TUBE REMAINS INPLACE AND DRAINING GREEN IN COLOR TAL, WHICH IS LIQUID.
--- NOTE | 2018-09-12 18:03 | NUR ---
PT REPOSITIONED AND GIVEN WARM BLANKET AT THIS TIME.
--- NOTE | 2018-09-12 18:07 | NUR ---
PT VOIDED 250ML OF ZACH IN COLOR URINE AT THIS TIME. PT TOLD PANELBOARD TANK PUMPER THAT I COULD DO ANYTHING WITH THE CURTINE THAT WAS CLOSED WHILE HE WAS VOIDING. SO THIS PANELBOARD TANK PUMPER OPENED THE CURTAIN AND TOLD HIM "IN CCU STANDS FOR I SEE YOU!" PT THEM STARTED TO LAUGH AND SMILE. THE FRIST FOR THE DAY.
--- NOTE | 2018-09-12 18:43 | NUR ---
SEE HARD COPY OF VITAL SIGNS
--- NOTE | 2018-09-12 18:52 | NUR ---
DR MALAVE SCHEDULED A COLONOSCOPY FOR PT AT 10:30AM. PT ARRIVED BACK TO ROOM W/O N/V AND RECTAL TUBE IN PLACE. PT WAS DIAGNOSED W/GASTROENTERITIS VIRUS AND PUT ON CONTACT PRECAUTIONS. PAIN LEVEL HAS DECREASED FROM 9 TO 5 THROUGHOUT THE DAY. PT VOIDED ONCE DURING SHIFT AND RECTAL DRAIN TUBING CHANGE 3X'S.
--- NOTE | 2018-09-12 19:13 | NUR ---
THIS SUPERVISOR WOOD CREW AGREES WITH THE STUDENTS CHART. REPORT GIVEN TO NETWORK SECURITY ANALYST.
--- NOTE | 2018-09-12 19:37 | NUR ---
REPORT RECEIVED FROM DASIA ASKEW. PT IS RESTING IN BED, EYES CLOSED RESP EVEN AND UNLABORED. HR 60'S AFIB.
--- NOTE | 2018-09-12 20:45 | NUR ---
PT CALLS TO ASK FOR PAIN MEDICINE FOR ABDOMINAL PAIN 05/21. 25MCG IV FENTANYL GIVEN. ASSESSMENT DONE AND HS MEDS GIVEN.
--- NOTE | 2018-09-12 23:59 | NUR ---
RECTAL TUBE LEAKING SOME ONTO PADS, LINENS CHANGED AND GOOD GUTIERREZ CARE DONE, BARIER CREAM APPLIED AND PT REPOSITIONED. NEEDS ENCOURAGEMENT TO DO THINGS FOR HIMSELF. NOW SITTING UP IN BED TRYING TO VOID INTO URINAL.
--- NOTE | 2018-09-13 00:15 | NUR ---
PT WAS UNABLE TO VOID. ASSESSMENT DONE AND NOW PT WILL TRY TO SLEEP.
--- NOTE | 2018-09-13 02:38 | NUR ---
PT WAS FINALLY ABLE TO VOID 200 MLAMBER URINE, THEN GIVEN 25MCG IV FENTANYL PER REQUEST. NOW SLEEPING WITH RESP EVEN AND UNLABORED, RR 16 SPO2 99% AND HR 70'S.
--- NOTE | 2018-09-13 04:41 | NUR ---
PT CONT TO SLEEP, RESP EVEN UNLABOED.
--- NOTE | 2018-09-13 07:14 | NUR ---
PT WAS AWAKE IN HIS BED, PT WAS GIVEN GUTIERREZ CARE AND BARRIER CREAM WAS USED ON HIS GUTIERREZ AREA. PT BEDDING WAS CHANGED AFTER BEING SOILED FROM RECTAL DRAIN TUBE. THE DRESSING FROM THE PT PRESSURE UCLER ON L. FOOT WAS CHANGED. PT DRANK ONE BOTTLE OF ENSURE.
--- NOTE | 2018-09-13 07:44 | NUR ---
FULL REPORT RECIEVED FROM DARLINE RN. PT SLEEPING AT THIS TIME, VITALS WNL. PT IN NO OBSERVABLE DISTRESS.
--- NOTE | 2018-09-13 09:42 | NUR ---
RECTAL TUBE REMOVED, PT OWEN WELL.
--- NOTE | 2018-09-13 09:59 | OR ---
[facility] [address], [place] [address] Signed DATE OF OPERATION: 09/12/2018 SURGEON: Johnnie Malave MD COLONOSCOPY REPORT PREOPERATIVE DIAGNOSES: 1. Generalized abdominal pain. 2. Bilious green diarrhea. 3. Thickened small and large bowel on CT scan. POSTOPERATIVE DIAGNOSES: 1. Mild hemorrhagic mucosa of the ileocecal valve and hepatic flexure. 2. Moderate internal hemorrhoids. 3. Moderate external hemorrhoids x2. PROCEDURE: Colonoscopy with cold biopsies of the ileocecal valve and hepatic flexure. ESTIMATED BLOOD LOSS: None. 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 He is known to have gastroesophageal varices. He has peripheral neuropathy. He also has a history of chronic atrial fibrillation. He was having generalized abdominal pain, diarrhea, weakness, anorexia, failure to thrive, nausea, and dark urine. He came into the hospital, under the Internal Medicine Service, seemed to be doing better and was sent [facility] to [facility] for ongoing rehab. Unfortunately, he was failing to thrive with the same symptoms, so he was brought back to the emergency room and readmitted to our Internal Medicine Service. He ended up with an ultrasound of his right upper quadrant, which showed his nodular liver and a contracted gallbladder around multiple small stones. Common bile duct was unremarkable. However, the ultrasound did see a thickened transverse colon. Consequently, a CT scan of the abdomen and pelvis was performed and his entire small bowel and colon are all quite thickened and edematous. He has a lot of haziness out in the mesentery along with mild to moderate ascites and also has multiple small less than 1 cm lymph nodes. He has been hydrated and his digoxin is being re-dosed as his digoxin level is low. Given those findings, I was asked to see him as a general surgeon on-call for a colonoscopy with biopsies. I met with Diane earlier today and we had a long discussion. He told me he has never had a Electronically Signed By: JOHNNIE MALAVE MD 09/13/18 0959 PATIENT NAME: DIANE BOTELLO OPERATIVE REPORT DATE OF : 50 REPORT #: [id number] PHYSICIAN: JOHNNIE MALAVE MD PCP: RIO PEREZ MD REPORT IS CONFIDENTIAL AND NOT TO BE RELEASED WITHOUT AUTHORIZATION [address] [address] Signed previous colonoscopy. He said there is no family history of colon cancer or polyps. I reviewed with Diane the nature of the colonoscopy along with its risks including, but not limited to gas bloating, crampy abdominal pain, bleeding, perforation, requiring surgery, and missed diagnosis. He also understands the need for IV conscious sedation. Given his advanced medical issues and his current debilitated status, we asked an anesthesia provider help us with increased monitoring and sedation with propofol. He had expressed understanding and wished to proceed. PROCEDURE NOTE: Diane was taken into our endoscopy suite and placed in the left lateral decubitus position. He was maintained on IV propofol per our nurse level vial sealer. We deflated the rectal tube and removed that gently. After this, a digital rectal exam was performed and he does have 2 large pedunculated external hemorrhoids/skin tags. Sphincter tone was fine. Prostate is a little indurated, but no dominant nodule. He does have bilious liquid green fluid from the rectum. After this, the adult colonoscope was introduced. We advanced this slowly up the colon and quite honestly, it looked pretty healthy until we got to the hepatic flexure. We saw some mucosal hemorrhage somewhat circumferentially over a few cm and then we saw it again on the ileocecal valve. The scope was then slowly withdrawn. We could not pass the scope into the ileum as we tried several times. The ileocecal valve appears a bit edematous. We took a biopsy of the ileocecal valve and then again in the hepatic flexure. The rest of the colon was unremarkable. He has just a little bit of diverticulosis. The rectum itself was unremarkable. Upon retroflexion of scope, he has standard moderate internal hemorrhoid columns. After this, the gas was suctioned out and the colonoscope removed. The rectal tube was well lubricated. We reinserted that into the rectum and reinflated the balloon and brought it down against the top of the anal canal. After this, Diane was rotated into the supine position and taken back into the ICU in stable, but critical condition. Johnnie Malave MD ALB/MODL /[id number] cc: Rio Perez MD Electronically Signed By: JOHNNIE MALAVE MD 09/13/18 0959 PATIENT NAME: DIANE BOTELLO OPERATIVE REPORT DATE OF : 50 REPORT #: [id number] PHYSICIAN: JOHNNIE MALAVE MD PCP: RIO PEREZ MD REPORT IS CONFIDENTIAL AND NOT TO BE RELEASED WITHOUT AUTHORIZATION [facility] [address] [place], [place] [address] Signed Copies: RIO PEREZ MD ~ Electronically Signed By: JOHNNIE MALAVE MD 09/13/18 0959 PATIENT NAME: DIANE BOTELLO OPERATIVE REPORT DATE OF : 50 REPORT #: [id number] PHYSICIAN: JOHNNIE MALAVE MD PCP: RIO PEREZ MD REPORT IS CONFIDENTIAL AND NOT TO BE RELEASED WITHOUT AUTHORIZATION
--- NOTE | 2018-09-13 10:32 | NUR ---
PT GUTIERREZ CARE DONE, DESITIN CREAM APPLIED TO GROIN FOLDS, BUTTOCKS CREASES, AND SCROTUM. PT GOWN CHANGED. PT OWEN WELL, AWAKE AND ALERT X4, COOPERATIVE. SKIN IN GUTIERREZ AREA RED AND SCATTERED SMALL OPEN SPOTS.
--- NOTE | 2018-09-13 11:14 | NUR ---
PT REPORTS ABD PAIN IS WITHIN PAIN GOAL AT THIS TIME. PT APPEARS TO BE RESTING COMFORTABLY, VITALS WNL.
--- NOTE | 2018-09-13 12:29 | NUR ---
PT STILL UNDER CONTACT PRECAUTIONS-WILL FOLLOW NEEDED
--- NOTE | 2018-09-13 12:30 | NUR ---
full bedside report given to Lizet ASKEW. all pt belongings went with pt to room 112. pt is awake and alert x4 at this time. vitals wnl.
--- NOTE | 2018-09-13 12:50 | NUR ---
NEW ADMIT TO THE FLOOR. PT AWAKE, ALERT AND ORIENTED X3. PT IS ON RA, RESP EVEN AND NON LABORED. PT REPORTS PAIN IS TOLERABLE AT THIS TIME; GENERALIZED. HOB ELEVATED. PERSONAL SUPPLIES AND CALL LIGHT WITHIN REACH OF PT. PT HAS BRIEF ON, DRY AT THIS TIME AND PT DECLINES THE NEED TO VOID.
--- NOTE | 2018-09-13 15:56 | NUR ---
PHYSICAL THERAPY IN WORKING WITH PT.
--- NOTE | 2018-09-13 17:17 | NUR ---
PT TRANSFERRED TO UNIT FROM ICU THIS AFTERNOON. PT HAS BEEN AO&X3. PT ON RA. VSS. OXYCODONE PO IN USE FOR ABD PAIN. CONT IV FLUIDS.@75ML/HR. TELE #4, RATE CONTROLLED WITH DIG-HR LOW TO MID 80'S. CONTACT PRECAUTIONS. C-DIFF NEGATIVE. DIARRHEA THIS ADMIT, NONE ON THIS FLOOR THUS FAR. NEEDS ENCOURAGEMENT FOR ADEQUATE DIET INTAKE. INCONT AT TIMES. 2PA WITH WALKER.
--- NOTE | 2018-09-13 20:00 | NUR ---
RECEIVED REPORT AT 1900. PT HAD NO NEEDS AT THAT TIME.
--- NOTE | 2018-09-13 20:56 | NUR ---
NEW TELE BATTERY PUT IN.
--- NOTE | 2018-09-13 21:30 | NUR ---
VITALS AND I&OS DONE AND CHARTED. CHANGED HIS ATTENDS INCONTINENT WITH BM. BEDSIDE TABLE AND CALL LIGHT IN REACH.
--- NOTE | 2018-09-13 22:00 | NUR ---
V/S ARE WDL. ALL LOBES ARE CLEAR, ABD SOUNDS ARE PRESENT. NO BM'S SO FAR THIS SHIFT. GENERALIZED EDEMA IS MODERATE TO SEVERE. DRESSING CHANGE ON RIGHT HEEL DONE DUE TO DRESSING THAT CAME OFF. PT IS IN A VERY GOOD MOOD AT THIS TIME. NO NEW CONCERNS AT THIS TIME.
--- NOTE | 2018-09-13 22:10 | NUR ---
HELPED PT WITH HIS URINAL PER HIS REQUEST. CHARTED OUTPUT.
--- NOTE | 2018-09-14 00:05 | NUR ---
PT IS AWAKE IN BED AT THIS TIME. PAIN IS 0/10. PT HAS NO NEEDS OR CONCERNS AT THIS TIME.
--- NOTE | 2018-09-14 01:00 | NUR ---
HELPED PT WITH HIS URINAL PER HIS REQUEST TO TRY AND PEE BEFORE HE GOES TO SLEEP. HE DID NOT HAVE ANY OUTPUT AT THIS TIME. HE NEEDS NOTHING MORE AT THIS TIME.
--- NOTE | 2018-09-14 02:00 | NUR ---
PT WAS WOKEN UP FOR V/S. PAIN IS 7/10. ABD SOUNDS ARE PRESENT, ABD IS TENDER TO TOUCH BUT SOFT. PT DENIES N/V AT THIS TIME. UA READY TO BE SENT TO LAB. NO NEW CONCERNS AT THIS TIME. WILL CONTINUE TO MONITOR. SECOND ASSESSMENT HAD NO CHANGES NOTED.
--- NOTE | 2018-09-14 02:00 | NUR ---
IV SITE JUST OCCLUDED. NEW IV SITE TO BE STARTED. PT IS STILL IN GOOD SPIRITS AND STATED THAT HE IS FEELING MUCH BETTER OVERALL. SECOND ASSESSMENT IS UNCHANGED FROM THE FIRST. NO NEW CONCERNS AT THIS TIME.
--- NOTE | 2018-09-14 04:05 | NUR ---
PT IS SLEEPING AT THIS TIME.
--- NOTE | 2018-09-14 05:40 | NUR ---
PT ARRIVED ON FLOOR AT 1940. PT HR WAS IN THE LOW 100'S. 12.5MG IV PHENERGAN HAD TO BE GIVEN BECAUSE ZOFRAN WAS NOT SUFFICIENT ENOUGH TO REAT HIS N/V. SINCE THEN, V/S HAVE BEEN WDL, URINE OUTPUT IS ADEQUATE, PT HAS DENIED N/V SINCE. PAIN IS CONTROLLED WITH AVAILABLE PRN PAIN MEDICATIONS. ABD SOUNDS ARE PRESENT, ABD IS TENDER TO TOUCH BUT SOFT. NO PERIPHERAL EDEMA NOTED, ALL LOBES ARE CLEAR, PT IS AAO X3. WILL CONTINUE TO MONITOR.
--- NOTE | 2018-09-14 05:51 | NUR ---
PT OVERALL HAD AN UNEVENTFUL NIGHT. PT STATED THAT HE FEELS MUCH STRONGER OVERALL AND HE ALSO SEEMS TO BE IN GOOD SPIRITS. LOBES ARE CLEAR, PT HAS MODEREATE TO SEVERE GENERALIZED EDEMA PRESENT THOUGH. NEW IV SITE WAS STARTED. ABD SOUNDS ARE PRESENT. PT SO FAR HAD NO BM THIS SHIFT. PT DENIES N/V. PAIN IS CONTROLLED WELL WITH AVAILABLE PRN PAIN MEDS. DRESSING CHANGE ON THE LEFT HEEL HAD TO BE DONE DUE TO LOOSE DRESSING. NO NEW CONCERNS NOTED SO FAR THIS SHIFT. WILL CONTINUE TO MONITOR.
--- NOTE | 2018-09-14 06:48 | NUR ---
VITALS , I&OS AND BED WEIGHT DONE AND CHARTED. BEDSIDE TABLE AND CALL LIGHT IN REACH.
--- NOTE | 2018-09-14 07:56 | NUR ---
RECEIVED BEDSIDE REPORT FROM AL ASKEW AT 0700. PATIENT SLEEPING AT THIS TIME. ALL QUESTIONS ANSWERED. TELE IN PLACE. WEIGHT RECEIVED FROM BED THIS MORNING. 199#. IVF INFUSING AT 75. LAST OXYCODONE GIVEN AT 2240. LEFT HEEL DRESSSING ALLEVYN CHANGED BY AL. DIGOXIN LEVEL DRAWN THIS MORNING (SEE LABS).
--- NOTE | 2018-09-14 09:50 | NUR ---
DR CARRINGTON IN TO SEE PATIENT THIS MORNING. THIS RN AND PHYSICAL THERAPY GOT PATIENT UP TO BSC AND THEN TO RECLINER. MULTIPLE INCONTINENT EPISODES THROUGHOUT MOVEMENT. TOLERATED STANDING AND AMBULATION WELL. STEADY STEPS WITH FWW. CCU CALLED TO NOTIFY RN OF HR IN 150s. PATIENT EXERTING SELF AND ATTEMPTING TO HAVE FURTHER BMs IN BSC AT THAT TIME. PATIENT REPORTS ABDOMINAL PAIN.
--- NOTE | 2018-09-14 13:07 | NUR ---
PT HAS HAD MULTIPLE INCONTINENT LOOSE, LIQUID BROWN BMs TODAY. AT 1300 PATIENT FOUND TO HAVE BLOOD IN STOOL. HOSPITALIST NOTIFIED. DESITIN CREAM APPLIED WITH EACH ATTENDS CHANGE TO AVOID FURTHER SKIN BREAKDOWN. CALL LIGHT WITHIN REACH. ABDOMEN PAIN. MORPHINE GIVEN IV. CIPRO INFUSING NOW. RIGHT FOREARM FOUND TO HAVE PHLEBITIS. CHANGED IV TO LEFT WRIST.
--- NOTE | 2018-09-14 15:52 | NUR ---
ATTENDS CHANGED. MINGO RED BLOODY STOOL IN ATTENDS. INCONTINENT. MORPHINE GIVEN IV FOR 8/10 REPORTED ABDOMINAL PAIN. CONTINUOUS PULSE OX IN PLACE D/T PRN PAIN MEDS GIVEN FREQUENTLY.
--- NOTE | 2018-09-14 17:51 | NUR ---
ON CLEAR LIQUID DIET D/T INCREASE IN ABDOMINAL PAIN. MAY HAVE ADVANCED DIET TOO QUICKLY. 2PA FWW AND GAIT BELT. WORKED WITH PHYSICAL THERAPY. GAIT STEADY ONCE STANDING. WEAKNESS GENERALIZED. EDEMATOUS GENERALIZED. DAILY WEIGHT-- 199# TODAY. LIDODERM PATCH ON BACK. BLOODY STOOL PROGRESSIVELY THROUGHOUT DAY. INCONTINENT. CHANGED Q2H. TELE4 FOR A-FIB. LOPRESSOR AND DIGOXIN. MORPHINE X2, OXYCODONE X2, TYLENOL X1 FOR ABDOMINAL PAIN. CONTINUOUS PULSE OX IN PLACE D/T MULTIPLE PRN PAIN MEDS GIVEN. LEFT HEEL HAS PRESSURE SORE. WEAPING. HEEL PROTECTORS ON. LABS STABLE WITH BLOODY STOOL. HOSPITALIST AWARE OF PATIENT CONDITION.
--- NOTE | 2018-09-14 18:36 | NUR ---
PATIENT ATTENDS DRY AT THIS TIME. DESITIN CREAM STILL PROTECTING SKIN WELL. DR MALAVE IN TO VISIT PATIENT.
--- NOTE | 2018-09-14 19:05 | NUR ---
IN ROOM FOR REPORT, PT IS AWAKE IN BED AND DENIES FURTHER NEEDS AT THIS TIME. CALL LIGHT IS WITHIN REACH.
--- NOTE | 2018-09-14 21:14 | NUR ---
VS TAKEN AND ENTERED, MEDICATIONS ADMINISTERED. PT REPORTS PAIN AT 5/10 AT THIS TIME AND OXYCODONE WAS GIVEN. REMOVED OLD LIDODERM PATCH AND APPLIED NEW ONE TO HIS LOWER BACK. AL ASKEW ENTERED THE ROOM TO TAKE OVER CARE AT THIS TIME.
--- NOTE | 2018-09-14 21:15 | NUR ---
CARE TAKEN OVER FOR THIS PT AT THIS TIME. ALL LOBES ARE CLEAR. ABD SOUNDS ARE HYPERACTIVE. GENERALIZED EDEMA SEEMS UNCHANGED SINCE LAST NIGHT. URINE OUTPUT IS NOT ADEQUATE AT THIS TIME. WILL MONITOR. PO INTAKE SO FAR THIS SHIFT IS POOR. AT THIS TIME PT HR IS IN THE LOW 100'S. WILL CONTINUE TO MONITOR. PT DENIED PAIN AND N/V AT THIS TIME.
--- NOTE | 2018-09-15 | NUR ---
PT IS SLEEPING AT THIS TIME.
--- NOTE | 2018-09-15 03:00 | NUR ---
PT URINE OUTPUT IS STILL INADEQUATE. BRIEF WAS CHANGED. PT DID NOT WANT TO BE REPOSITIONED. PO INTAKE WAS ENCOURAGED. DRESSING CHANGE ON LEFT HEEL WAS DONE.
--- NOTE | 2018-09-15 04:58 | NUR ---
PT THIS SHIFT HAD INADEQUATE URINE OUTPUT SO FAR. PO INTAKE HAD TO BE ENCOURAGED WELL. LOBES ARE CLEAR. HR IS IN THE 90'S-110 WHILE AWAKE AND MOVING. WHILE SLEEPING HR IS IN THE 70'S OVERALL. LOBES ARE CLEAR, ABD SOUNDS ARE PRESENT. PT DID NOT HAVE A BM THIS SHIFT SO FAR AND HAS DENIED N/V SO FAR WELL. GENERALIZED EDEMA SEEMS TO HAVE IMPROVED SLIGHTLY SINCE YESTERDAY. DRESSING CHANGE ON LEFT HEEL WAS DONE DUE TO LOOSE DRESSING. WILL CALL MD CARRINGTON ABOUT LOW URINE OUTPUT. PAIN OVERALL ALSO IS WELL CONTROLLED.
--- NOTE | 2018-09-15 06:00 | NUR ---
MD CARRINGTON WAS CALLED ABOUT INADEQUATE URINE OUTPUT. NO ORDERS WERE GIVEN.
--- NOTE | 2018-09-15 08:04 | NUR ---
PATEINT IN BED WAITING FOR HIS BREAKFAST, NEEDED NO OTHER ASSISTANCE AT THE TIME
--- NOTE | 2018-09-15 08:05 | NUR ---
[facility]. PT IN BED A/O, SL. DENIES NEEDS AT THIS TIME. CALL LIGHT IN REACH.
--- NOTE | 2018-09-15 09:39 | NUR ---
WENT TO DO PATIENT VITAL SIGNS HE TOLD THIS EXTENDED DAY TEACHER AND THE PHYSICAL THERAPIST "TO LEAVE HIM ALONE AND GET OUT COME BACK IN AN HOUR" WILL REAPPROACH
--- NOTE | 2018-09-15 10:10 | NUR ---
ASSESSMENT COMPLETED. LUNGS CLEAR EXCEPT RLL IS DIM. HEART SOUNDS IRREGULAR. PULSES +2 RADIAL, +1 TIBIAL, +1 RLE +2 LLE EDEMA WITH GENERAL NONPITTING BILAT UE. ACITES NOTED. SCALING SKIN ON FACE AND SCALP. DRY SKIN LE. BOWEL TONES HYPERACTIVE. DENIES PAIN, N/V AT THIS TIME. CALL LIGHT IN REACH. PT UP TO BATHROOM WITH 2PA AND FWW. VOIDED THEM UP TO CHAIR. DENIES FURTHER NEEDS. ENCOURAGE PO INTAKE.
--- NOTE | 2018-09-15 10:36 | NUR ---
ASSISTED PHYSICAL THERAPY WITH PATIENT ACTIVITY, ASSISTED HIM TO THE CHAIR
--- NOTE | 2018-09-15 10:46 | NUR ---
PATIENT USED CALL LIGHT, WANTED ASSISTANCE WITH HIS CHAIR, LEGS ARE UP PILLOW UNDER LEGS, PILLOW BEHIND BACK
--- NOTE | 2018-09-15 11:00 | NUR ---
PHYSICAL THERAPY IN TO WORK WITH PT. ABLE TO WALK TO BATHROOM AND BACK. TOLERATED WELL.
--- NOTE | 2018-09-15 11:30 | NUR ---
ROUNDED WITH DR CARRINGTON, PLAN OF CARE DISCUSSED, QUESTIONS AND CONCERNS ADRESSED. NEW ORDERS RECEIVED.
--- NOTE | 2018-09-15 12:30 | NUR ---
NEW ORDERS FOR MAG (REFER TO EMAR) INFUSING AT 70ML/HR. LUNCH AT BEDSIDE. DENIES N/V OR PAIN AT THIS TIME. CALL LIGHT IN REACH.
--- NOTE | 2018-09-15 17:00 | NUR ---
CALL LIGHT ANSWERED. PT REPORTED FEELING URGE TO VOID. VOIDED 150 IN URINAL. CALL LIGHT IN REACH. DENIES FURTHER NEEDS.
--- NOTE | 2018-09-15 18:28 | NUR ---
NEW BAG OF IV FLUIDS STARTED.
--- NOTE | 2018-09-15 18:37 | NUR ---
PT HAD GOOD DAY. NO N/V, DENIED PAIN,. TOLERATING FULL LIQUIDS, WORKED WITH PT TODAY, TELE #4. HR 80-100 AT REST. UP TO 160-170 WITH ACTIVITY. AWARE. MAG RIDER TODAY. DAILY WEIGHTS. CREAM FOR FACIAL RASH. LR @ [address] AWARE OF LOW OUTPUT. ENCOURAGE PO INTAKE. DIM IN RLL. 1-2PA WITH FWW.
--- NOTE | 2018-09-15 19:15 | NUR ---
REPORT RECEIVED FROM BOBBI RN, PT RESTING IN BED WATCHING TV, IV FLUIDS RUNNING PER EMAR WNL, DENIES ANY NEEDS AT THIS TIME. HYDRATION AT BEDSIDE. CALL LIGHT WITHIN REACH.
--- NOTE | 2018-09-15 21:01 | NUR ---
IN ROOM TO ADMIN EVENING MEDS, SHIFT ASSESSMENT COMPLETE. PT AOX4, APPROPRIATE, TALKATIVE, PT DENIES ANY PAIN OR SOB AT THIS TIME. DENIES ANY NAUSEA. PT'S LS CLEAR, DIMINISHED IN THE BASES BILATERALLY, HEART SOUNDS IRREGULAR RYTHM, PULSES IRREGULAR RYTHM THROUGHOUT, ON TELE #4, SHOWS IRREGULAR RYTHM, HR 75. BT ACTIVE THROUGHOUT, ABD NONTENDER. MILD DISTENTION NOTED. GENERALIZED EDEMA NOTED THROUGHOUT PT'S EXTREMITIES, PULSES STRONG, CAP REFILL WNL. PT'S SKIN DRY, FLAKY, SEVERAL ABRASIONS/SCRATCHES ON EXTREMITIES. SCHEDULED CREAM PLACED TO PT'S FACE PER EMAR. PT'S MUSCULOSKELETAL STRENGTH WEAK, PT STATES HX OF FRACTURES IN LUE. PT STATES HE IS "FEELING MUCH BETTER", ALLEVYN NOTED ON PT'S LEFT HEEL, C/D/I, SCD'S ON, CAP REFILL WNL IN BLE, PT STATES HE HAS NO FEELING IN ANY EXTREMITIES RELATED TO HX OF NEUROPATHY. VSS. IV FLUIDS INFUSING PER EMAR WNL, HYDRATION AT BEDSIDE. CALL LIGHT WITHIN REACH. PT REPOSITIONED IN BED FOR COMFORT. NO FURTHER REQUESTS AT THIS TIME. FALL PRECAUTIONS IN PLACE.
--- NOTE | 2018-09-15 22:08 | NUR ---
PT APPEARS TO BE SLEEPING, BREATHS EVEN, UNLABORED, IV FLUIDS INFUSING PER EMAR WNL. NO REQUESTS AT THIS TIME. FALL PRECAUTIONS IN PLACE. CALL LIGHT WITHIN REACH.
--- NOTE | 2018-09-16 00:06 | NUR ---
CALL LIGHT ANSWERED, PT ASSISTED TO VOID IN URINAL. PT DENIES ANY PAIN AT THIS TIME. DENIES SOB, SKIN IN GUTIERREZ AREA SEEMS DRY, DESATIN NOTED IN GROIN, NO SIGN OF SKIN TEAR NOTED ON SCROTAL AREA, PT DENIES ANY PAIN OR DISCOMFORT IN THE GUTIERREZ AREA. HYDRATION AT BEDSIDE. PT ENCOURAGED TO INCREASE PO INTAKE, IV FLUIDS INFUSING PER EMAR WNL, NO NEEDS AT THIS TIME. CALL LIGHT WITHIN REACH.
--- NOTE | 2018-09-16 01:59 | NUR ---
CALL LIGHT ANSWERED, PT VOIDEDF 175 MLS OF CLEAR YELLOW URINE IN URINAL INDEPENDENTLY, PT C/O A SORE AREA ON HIS MEDIAL THIGH, REDDENED AREA NOTED FROM HIS ATTENDS RUBBING ON INNER THIGH, BARRIER CREAM APPLIED TO AREA PER PT'S REQUEST, PT GIVEN NEW ICE WATER PER PT'S REQUEST. NO FURTHER NEEDS AT THIS TIME. HYDRATION AT BEDSIDE. CALL LIGHT WITHIN REACH. FALL PRECAUTIONS IN PLACE. IV FLUIDS INFUSING PER EMAR WNL.
--- NOTE | 2018-09-16 03:40 | NUR ---
CALL LIGHT ANSWERED, PT ASSISTED TO BATHROOM WITH 2PA/FWW. PT AMBULATED WELL, MODERATE ASSISTANCE NEEDED WITH STANDING. PT'S IV NOTED TO BE PULLED FROM PT'S ARM. THIS RN AND BOO ASKEW ATTEMPTED TO START IV ON PT, FINISH REMOVER CONTACTED FOR IV START. PT NOTED TO BE INCONTINENT OF STOOL WHEN UP TO BATHROOM, ATTENDS CHANGED, BEDDING CHANGED. PT RESTING IN BED NOW. CALL LIGHT WITHIN REACH. NO REQUESTS AT THIS TIME. DENIES ANY SOB/CP WITH AMBULATION, DENIES LIGHT HEADEDNESS OR DIZZINESS.
--- NOTE | 2018-09-16 04:05 | NUR ---
LEAD MINER TO ROOM, NEW 22G IV STARTED IN PT'S LEFT FOREARM, TOLERATED WELL. FLUSHES WELL. WINDOW DRESSING APPLIED, IV FLUIDS NOW RUNNING PER EMAR WNL. NO FURTHER NEEDS AT THIS TIME. CALL LIGHT WITHIN REACH.
--- NOTE | 2018-09-16 04:07 | NUR ---
PT AOX4 THIS SHIFT, APPROPRIATE, VERY COOPERATIVE WITH CARE. NO C/O PAIN. ON RA, NO C/O SOB, DENIES LIGHT HEADEDNESS OR DIZZINESS. PT INCONTINENT OF SMALL STOOL X1 THIS SHIFT, ATTENDS CHANGED, PT AMBULATED WITH 2PA/FWW TO BATHROOM, MODERATE ASSISTANCE NEEDED WITH STANDING, PT ENCOURAGED TO INCREASE PO INTAKE. NEW IV STARTED, 22 G IN LFA. IV FLUIDS INFUSING PER EMAR WNL. URINE OUTPUT QS, VSS, FULL LIQUID DIET.
--- NOTE | 2018-09-16 05:05 | NUR ---
CALL LIGHT ANSWERED, URINAL EMPTIED, 175 ML YELLOW URINE. VITALS STABLE. IVF INFUSING WNL. SCDS AND HEEL PROTECTORS IN PLACE. NO REQUESTS AT THIS TIME, CALL LIGHT IN REACH.
--- NOTE | 2018-09-16 05:37 | NUR ---
NEW IV FLUIDS STARTED. INFUSING PER EMAR WNL. PT DENIES ANY NEEDS AT THIS TIME. RESTING IN BED. CALL LIGHT WITHIN REACH. HYDRATION AT BEDSIDE.
--- NOTE | 2018-09-16 07:15 | NUR ---
REPORT RECEIVED FROM AZAR WYLIE. PT RESTING IN BED. NO REQUESTS OR COMPLAINTS, BED RAILS UP. CALL LIGHT WITHIN REACH.
--- NOTE | 2018-09-16 08:39 | NUR ---
MORNING ASSESSMENT AND MEDICATIONS DUE. THIS RN TO BEDSIDE. PT RESTING IN BED WATCHING TV. PT DENIES PAIN AND NAUSEA. PT ASSISTED WITH ORDERING BREAKFAST. DRESSING TO HEEL WOUND SATURATED, DRESSING CHANGED. WOUND MEASURES 2CM (FROM 12'OCLOCK TO 6 O'CLOCK POSITIONS) BY 2.5 CM (FROM 3-9 O'CLOCK POSITIONS), BASE OF WOUND SHOWS GRANLUATION TISSUE. WOUND CLEANSED WITH SOAP AND WATER. NEW ALLEVYN DRESSING APPLIED. ASSESSMENT DONE. EDEMA NOTED IN EXTREMITIES, NON PITTING, MORE EDEMA IN LEFT LEG THAN RIGHT. MEDICATIONS GIVEN (SEE MAR). PT OFFERED TO GET UP TO CHAIR. PT REFUSES. PTS FACE WASHED AND METRONIDAZOLE CREAM APPLIED. BED RAILS UP. CALL LIGHT WITHIN REACH.
--- NOTE | 2018-09-16 09:15 | NUR ---
PT CALL LIGHT ON. PT STATES HIS DEPENDS IS "PINCHING." THIS RN TO BEDSIDE. DEPENDS SOILED WITH BM. PT CLEANED, GUTIERREZ CARE DONE, DEPENDS CHANGED, CHUX CHANGED. PT ADVISED TO GET UP TO CHAIR. PT DECLINES. BED RAILS UP. CALL LIGHT WITHIN REACH.
[2018-09-16] MEDS ORDERED: METOPROLOL TART25 MG PO (09:57)
[2018-09-16] MEDS ORDERED: PANTOPRAZOLE SO40 MG PO (09:58)
[2018-09-16] MEDS ORDERED: ZOFRAN ODT4 MG SL (10:00)
--- NOTE | 2018-09-16 10:28 | NUR ---
CHART PACKET MADE TO SEND BACK TO [facility] WITH PT. [facility] STATED IT DID NOT NEED TO BE FAXED TO THEM. HOWEVER, I DID FAX ORDERS AND PASRR TO [facility]. LET [facility] KNOW I DID.
--- NOTE | 2018-09-16 11:20 | NUR ---
PT READY FOR DISCHARGE. THIS RN TO BEDSIDE. VITALS TAKEN. PIV DC'D PER PROTOCOL. DEPENDS SOILED AGAIN WITH BM. GUTIERREZ CARE DONE, DEPENDS CHANGED. PT DRESSED IN SCRUB PANTS AND GOWN. PT TRANSFERS SELF TO WHEELCHAIR WITH 2PA AND FWW. DISCHARGE PLAN REVIWED WITH PT. PACKET GIVEN TO TRANSPORT PERSONEL. PT WHEELED FROM UNIT BY TRANSPORT PERSONEL.
--- NOTE | 2018-09-16 11:32 | NUR ---
REPORT CALLED TO JAYLEN. REPORT GIVEN TO AZAR STAUFFER WHO STATES ALL HIS QUESTIONS HAVE BEEN ANSWERED.
--- NOTE | 2018-09-16 11:37 | NUR ---
PT RESTING IN BED-WAITING FOR DC ORDERS TO [facility]. PT SEEMS CALM, SPENT MUCH OF TIME TALKING ABOUT HOW PROUD HE IS OF HIS SON. TAUGHT HIM HOW TO BERNAL, AND SPEND TIME OF OF DOORS. PT REQUESTED PRAYER-AZAR HEWITT IN TO PREP PT FOR DC. WILL FOLLOW NEEDED
== END 2018-09-16 11:20 | disposition home or self-care (01) ==
LOC: ED 19:58 → CCU 23:29 → MS 23:29 → CCU 23:29 → MS 09-13 12:35
PROVIDERS: Colon & Rectal Surgery; ADMIT Internal Medicine
PROC: 0DBL8ZX Excision of Transverse Colon, Via Natural or Artificial Opening Endoscopic, Diagnostic (ICD-10-PCS; 2018-09-12)
PROC: 0DBC8ZX Excision of Ileocecal Valve, Via Natural or Artificial Opening Endoscopic, Diagnostic (ICD-10-PCS; principal; 2018-09-12 10:30)
DX: I48.1 Persistent atrial fibrillation (principal); G62.9 Polyneuropathy, unspecified; I10 Essential (primary) hypertension; R73.03 Prediabetes; K52.9 Noninfective gastroenteritis and colitis, unspecified; F10.20 Alcohol dependence, uncomplicated; K70.31 Alcoholic cirrhosis of liver with ascites; K72.90 Hepatic failure, unspecified without coma; R62.7 Adult failure to thrive; E86.0 Dehydration; K92.2 Gastrointestinal hemorrhage, unspecified; K64.4 Residual hemorrhoidal skin tags; K64.8 Other hemorrhoids; K80.20 Calculus of gallbladder without cholecystitis without obstruction; I85.10 Secondary esophageal varices without bleeding; M47.9 Spondylosis, unspecified; Z83.71 Family history of colonic polyps; Z87.891 Personal history of nicotine dependence; Z79.82 Long term (current) use of aspirin; Z79.899 Other long term (current) drug therapy
CPT/HCPCS: 36415; 51701; 51798; 74177; 76705; 80048; 80053; 80162; 81001; 82550; 83690; 83735; 84100; 84134; 84484; 85025; 85610; 85651; 87045; 87046; 87077; 87205; 87493; 88305; 93005; 93010; 94760; 96361; 96365; 96366; 96367; 96374; 96375; 96376; 97163; 97165; 97530; 99284; G0378; G8978; G8979; J0744; J1160; J1940; J2270; J2405; J2704; J3010; J3475; J7120; Q9967

== ENCOUNTER 2019-09-03 11:25 | Emergency (ER) | payer MEDICARE, OTHER ==
[~2019-09-03] VITALS: Ht 180.3 cm; Wt 93.0 kg
--- OUTSIDE RECORDS SUMMARY | ~2019-09-03 | XMS | Encounter Summary ---
Demographics + + + | Address | [address] | | | [place] [address] | + + + | Home Phone | | + + + | Preferred Language | Unknown | + + + | Marital Status | Single | + + + | Sikh Affiliation | Unknown | + + + | Race | Unknown | + + + | Ethnic Group | Unknown | + + + Author + + + | Author | [facility] | | | and [place] | + + + | Organization | [facility] | | [...] Team Providers + +------+ + | Care Moisture Tester Name | Role | Phone | + +------+ + | Dustin Perez MD | PCP | | + +------+ + Reason for Visit + + + | Reason | Comments | + + + | Follow-up, Office | 2 month | | Visit | | + + + Encounter Details +--------+---------+ + + + | Date | Type | Department | Care Team | Description | +--------+---------+ + + + | 09/01/ | Office | [facility] | Heather Thomas | Longstanding | | 2019 | Visit | CARDIOLOGY [place] | [address] | persistent atrial | | | | [address] | [place] [address] | fibrillation | | | | [address] | [place] [address] | (Primary Dx); | | | | [place], [place] | [phone] | Encounter for | | | | [address] | | monitoring diuretic | | | | [phone] | | therapy; Essential | | | | | | hypertension; | | | | | | Encounter for | | | | | | monitoring digoxin | | | | | | therapy; Cirrhosis, | | | | | | Laennec's (HCC); | | | | | | Alcohol abuse; | | | | | | Bilateral lower | | | | | | extremity edema | +--------+---------+ + + + Social History [...] + +---------+ + | Alcohol Use | Drinks/We | oz/Week | Comments | | | ek | | | + + +---------+ + | Not Currently | | | Alcoholic Drinks/day: states hasnt drank in | | | | | 2.5 months | + + +---------+ + + [...] Filed Vital Signs + + + + | Vital Sign | Reading | Time Taken | + + + + | Blood Pressure | 110/54 | 09/01/20191330 PDT | + + + + | Pulse | 88 | 09/01/20191330 PDT | + + + + | Temperature | - | - | + + + + | Respiratory Rate | - | - | + + + + | Oxygen Saturation | 100% | 09/01/20191330 PDT | + + + + | Inhaled Oxygen | - | - | | Concentration | | | + + + + | Weight | 92.5 kg (204 lb) | 09/01/20191330 PDT | + + + + | Height | 180.3 cm (5' 11") | 09/01/20191330 PDT | + + + + | Body Mass Index | 28.45 | 09/01/20191330 PDT | + + + + documented in this encounter Patient Instructions Patient Instructions Heather Thomas FNP - 09/01/2019 13:30 D[place] have ordered you non -fasting labs to be done at [facility] in 2 weeks I made these changes to medications: Started Torsemide 10 mg daily with potassium 20 Meq t wice a day See me back in 4 weeks documented in this encounter Progress Notes Heather Thomas, RUT - 09/01/2019 1330 PDTFormatting of this note might be different f rom the original. Date of visit: 09/01/2019 Primary Care Physician: Dustin Perez MD CHIEF COMPLAINT: Chief Complaint Patient presents with Follow-up, Office Visit 2 month HISTORY OF PRESENT ILLNESS: Mr.Dale An is a 69 old man who is here today for 2 month follow-up. He is a patient of and last seen by him September 2018. Today, I reviewed all previous documentation available to me in electronic medical [address] and from external sources. He has a history of persistent atrial fibrillation mostly well controlled, alcoholism , hy ponatremia and hypokalemia which limits use of diuretics but resolved when abstinent from al cohol,,cirrhosis ,ascites, esophageal varices , history of syncope secondary to antihyperten sives, frequent falls, peripheral neuropathy to his hands and feet, hypertension though more recently has developed hypotension treated with midodrine, hyperlipidemia, and dependent pe yaritza edema. His [id number] VASC score is 3( age, HTN, DM) giving him an annual stroke risk of 3.2% and id s HAS BLED score is 4( HTN, [...] noted that h is previous hospitalization at [facility] was from viral gastroenteritis, cirrhosis, mi ld ascites, chronic right pleural effusion, A. fib with RVR which was treated with bolus of digoxin as his level had been subtherapeutic and he was treated medically for his multiple g astrointestinal issues His current and previous testing and procedures are detailed below . I saw him last on June 30 when I ordered a CMP and made no changes to medications He was last hospitalized at [facility] in May 2019 for weakness and hyponatremia, a nd after that [place] [facility] [place] approximatel y 3 months for physical and occupational therapy, but reports he will be returning to his [facility] tomorrow. Notes from his hospitalization document that he [...] deconditioned, and was seen and treated by [facility] therapy and Occupational Therapy. He was also noted to have recurrent urinary retention, and he was treated with a Beebe catheter and referred to outpatient neurology for further evaluation and treatment. They st opped his torsemide due to dehydration and hyponatremia, and also noted that his blood press ure was normal without midodrine. He reports today that he continues to feel improved since he has been at [facility], an d remains abstinent from alcohol. His previous weakness and dizziness have resolved, and h felix denies any chest pain, palpitations, but still has mild dyspnea with exertion. He reports he has ongoing chronic lower extremity edema to his left leg which had previous injuries an d surgeries. He reported today that he has had a skin tear, and a non-healing wound to his left heel , and has also had increased edema to his right lower leg since he saw me last, and both leg s are more swollen. He reports he has been getting treated with daily wound care, but recen tly it was noticed that he had a surgical pin protruding through the skin, and he will lik viviana need surgery in the future to revise or remove it. He is a former smoker who quit smoking in 1977 with 3-pack-year history, has remained abs tinent from alcohol but reports that her drinking in 1965, and has consumed at least 6 beers per day daily until he quit In May 2019. He denies any use of recreational or illicit dr ugs and he drinks 2 servings of coffee daily. His ambulation is limited by his lower extrem ity edema, and wound to his left heel, general overall deconditioning, but has improved with physical and Occupational Therapy. REVIEW OF SYSTEMS: Negative except for pertinent items noted in HPI. Constitutional: Reports weakness and fatigue which have improved since he has been at [facility]. Denies unexplained weight loss. Appetite is good. Denies night sweats fevers or chills HENT: Denies nosebleeds. Denies hearing problems. Denies dysphagia Eyes: Denies visual disturbance or double vision. Respiratory/Sleep:: Denies cough and shortness of breath. Denies hemoptysis or excessive s putum production. Denies snoring, orthopnea, PND. Cardiovascular: Increased lower extremity edema, see HPI .denies chest pain, palpitations . Denies history of rheumatic fever. Denies claudication . Gastrointestinal: Alcoholic cirrhosis, esophageal varices, poor nutrition, chronic diarrhea secondary to lactulose now stopped, previous benign tumor removed with hernia surgery . DARRYL D. Denies nausea, vomiting, abdominal pain and blood in stool. Genitourinary: history of acute renal failure several years ago none since. Denies hemat uria. Musculoskeletal:H/o Rhabdomyolysis with ARF, h/o Gout. Denies [...] years.. Denies current EtOH use: started drinking 1965, 6-8 beers per day until 05/2019. Drinks 2 servings o f caffeine daily . Denies recreational or illicit drug use. . Lives in [facility] 05/2019 Outpatient Medications Prior to Visit Medication Sig Dispense Refill aspirin 81 mg EC tablet Take 81 [...] 600 mg by mouth 3 times daily.) loperamide (IMODIUM) 2 mg capsule Take 2 mg by mouth as needed for Diarrhea. magnesium hydroxide (MILK OF MAGNESIA) 400 mg/5 mL suspension Take 30 mLs by mouth Margarita y as needed for Constipation. melatonin 3 mg TABS Take 1 tablet by mouth nightly. Multiple Vitamins-Minerals (MENS MULTIVITAMIN PLUS PO) Take 1 tablet by mouth daily. omeprazole (PRILOSEC) 20 mg capsule Take 20 mg by mouth 2 times daily (before meals). sodium phosphate (FLEET) enema Place 133 mLs rectally Daily as needed for Constipation. tamsulosin (FLOMAX) 0.4 mg CAPS Take 0.4 mg by mouth nightly. thiamine (VITAMIN B-1) 100 mg tablet Take 100 mg by mouth Daily. No facility-administered medications prior to visit. PHYSICAL EXAM: Wt Readings from Last 3 Encounters: 09/01/19 92.5 kg (204 lb) 06/30/19 82.3 kg (181 lb 6.4 oz) 11/20/17 95.1 kg (209 lb 11.2 oz) Temp Readings from Last 3 Encounters: No data found for Temp BP Readings from Last 3 Encounters: 09/01/19 110/54 06/30/19 126/74 11/20/17 112/56 Pulse Readings from Last 3 Encounters: 09/01/19 88 06/30/19 98 11/20/17 95 GENERAL: Fatigued looking [...] is not palpable. EXTREMITIES: Left lower leg 3 + edema, right leg 2 +discolored and dry scaling skin , sk in taut , Dressing from mid ankle to foot on left side. Radial pulses 2+ bilaterally. Fem oral pulses are 1 + bilaterally without bruits. DP and PT pulses are trace bilaterally. N o clubbing. SKIN: Warm and dry, capillary refill [...] QTC 406 ms tracing personally reviewed by va EK05/28/2019:( [facility]) Atrial fibrillation with controlled ventricular response, possibl e previous anteroseptal infarct. Rate 69 bpm, QRS 90 ms, QTC 411 ms, tracing personally rev iewed by va EK06/30/2019: Atrial fibrillation with borderline controlled ventricular response nonspec ific ST abnormality consistent with old septal NE. Rate 98 bpm, QRS 80 ms, QTC 380 ms, trac ing personally reviewed by va LABS Labs: 05/28/2019:[facility]: Phosphorus 2.9. INR 0.9. CMP: Sodium 123, potassium 3, chloride 80, CO2 29, BUN 4, creatinine 0.62, GFR >120, glucose 110, magnesium 2.1 total bili 1.4, AST 50, ALT 30, alk phos 132,, troponin T <0.010, albumin 3.3. Thyroid: TSH 3.62. CB C: WBC 6.3, RBC 3.07, hemoglobin 10.4, hematocrit 29.8, platelets 154. Digoxin: 1.39. Labs: 05/29/2019: [facility]: BMP: Sodium 132, potassium 3.7, chloride 92, CO2 35, glu cose 104, BUN 4, creatinine 0.7, GFR 112. CBC: WBC 4.7, RBC 2.82, hemoglobin 9.7, hematocri t 27.7, platelets 149. Labs: 05/30/2019: [place]: Phosphorus 2.1. BMP: Sodium 134, potassium 3.4, chloride 93, CO2 34, glucose 114, BUN 7, creatinine 0.82, GFR 93. Magnesium 2. CBC: WBC 4.4, RBC 3 .12, hemoglobin 10.9, hematocrit 30.8 Labs: 07/28/2019: Lipids:( no statin) Cholesterol 140, triglycerides 91, HDL 32.8, LDL 89. CMP: Sodium 138, potassium 3.9, chloride 103, glucose 105, BUN 17, creatinine 0.95, GFR 79, AST 11, ALT 5, alk phos 62, total bili 0.5, albumin 2.9. Digoxin: 0.68. ASSESSMENT & PLAN: He was here today for 2 month follow up on labs. He has problems as detailed below. His labs performed on July show his lipids are well controlled without a statin, and his CMP shows resolution of his previous hyponatremia and hypokalemia with normal liver enz ymes, and digoxin level is satisfactory. I reviewed his results in detail with him, and discussed the improvement since he has re mained abstinent from alcohol. He does seem more fluid overloaded today, as his weight is up 23 pounds since I saw him 2 months ago, and he has considerable increase to his lower extremity edema on both legs, a nd skin is taut. He reports he has no further issues with urinary retention I discussed this with him today, and have started his torsemide again at 10 mg daily wit h potassium 20 mEq twice daily to help with increased lower extremity edema and fluid overlo ad. I made no other changes to cardiac medications today, and he should continue aspirin 81 mg daily which was reduced for ongoing GI problems, but should be 325 mg daily for stroke prevention for A. fib with RVR, and digoxin 125 mcg daily. He Is not a candidate for anticoagulation due to his history of falls, as well as liver di sease as discussed in HPI. I have ordered him an updated BMP in 2 weeks to follow-up on his response to torsemide, to make sure he does not return of his hyponatremia and hypokalemia. He is returning home tomorrow, and hopefully he will remain abstinent from alcohol. 1. Longstanding persistent atrial fibrillation 2. Encounter for monitoring diuretic therapy 3. Essential hypertension 4. Encounter for monitoring digoxin therapy 5. Cirrhosis, Laennec's (HCC) 6. Alcohol abuse 7. Bilateral lower extremity edema Orders Placed This Encounter Procedures Basic Metabolic Panel The following portions of the patient's history were personally reviewed by me and updated as appropriate: EKG tracings, other specialty provider and PCP notes,any Hospital admission and discharge summaries, any ER records , current and previous cardiac testing and procedure reports and d eris, vital sign and medication record from [facility]. Allergies, current medications.labs Family history, past medical history, past social history, past surgical history. Problem list. YAMILA Bhagat [facility] 09/01/2019 document ed in this encounter Plan of Treatment +--------+---------+ + + + | Date | Type | Specialty | Care Team | Description | +--------+---------+ + + + | 10/06/ | Office | Cardiology | Heather Thomas | | | 2018 | Visit | | [address] | | | | | | [address] | | | | | | [place] [address] | | | | | | [phone] | | | | | | | | +--------+---------+ + + + + +--------+ + + | Name | Priori | Associated Diagnoses | Order Schedule | | | ty | | | + +--------+ + + | Basic Metabolic Panel | Routin | Encounter for | Expected: | | | e | monitoring diuretic | 09/15/2019, Expires: | | | | therapy | 09/01/2020 | + +--------+ + + documented as of this encounter Visit Diagnoses + + | Diagnosis | + + | Longstanding persistent atrial fibrillation - Primary | + + | Encounter for monitoring diuretic therapy Encounter for therapeutic drug monitoring | + + | Essential hypertension Unspecified essential hypertension | + + | Encounter for monitoring digoxin therapy Encounter for therapeutic drug monitoring | + + | Cirrhosis, Laennec's (HCC) Alcoholic cirrhosis of liver | + + | Alcohol abuse Alcohol abuse, unspecified | + + | Bilateral lower extremity edema Edema | + + documented in this encounter
--- OUTSIDE RECORDS SUMMARY | ~2019-09-03 | XMS | Encounter Summary ---
Demographics + + + | Address | [address] | | | [place] [address] | + + + | Home Phone | | + + + | Preferred Language | Unknown | + + + | Marital Status | Single | + + + | Tenriism Affiliation | Unknown | + + + | Race | Unknown | + + + | Ethnic Group | Unknown | + + + Author + + + | Author | [facility] | | | and [place] | + + + | Organization | [facility] | | | and [...] Team Providers + +------+ + | Care Sleeve Tailor Name | Role | Phone | + [...] + + | 06/30/ | Office | [facility] | Heather Thomas | Persistent atrial | | 2019 | Visit | CARDIOLOGY [place] | [address] | fibrillation (HCC) | | | | [address] | [place] [address] | (Primary Dx); | | | | [address] | [place] [address] | Essential | | | | [place], [place] | [phone] | hypertension; | | | | [address] | | Hypotensive episode; | | | | [phone] | | Pedal edema; | | | [...] | Blood Pressure | 126/74 | 06/30/2019 1413 PDT | + + + + | Pulse | 98 | 06/30/2019 1413 PDT | + + + + | Temperature | - | - | + + + + | Respiratory Rate | - | - | + + + + | Oxygen Saturation | 100% | 06/30/20191412 PDT | + + + + | Inhaled Oxygen | - | - | | Concentration | | | + + + + | Weight | 82.3 kg (181 lb 6.4 | 06/30/20191412 PDT | | | oz) | | + + + + | Height | 180.3 cm (5' 11") | 06/30/20191412 PDT | + + + + | Body Mass Index | 25.3 | 06/30/20191412 PDT | + + + + documented in this encounter Patient Instructions Patient Instructions Heather Thomas FNP - 06/30/2019 14:00 SHANIKAI have ordered you No n fasting labs to be done by [facility] in the next month I made No changes to medications , but suggested decreasing melatonin to 3 mg See me back in 2 months documented in this encounter Progress Notes William Lilliam, RUT - 06/30/2019 1400 PDTFormatting of this note might be different f rom the original. Date of visit: 07/01/2019 Primary [...] midodrine, hyperlipidemia, and dependent pedal edema. His [id number] VASC score is 3( age, HTN, DM) giving him an annual stroke risk of 3.2% and or s HAS BLED score is 4( HTN, liver function, age, ETOH) which gives him an 8.7% risk of major bleed, Dr. Malin had previously indicated he was not a candidate for anticoagulation, but torre d suggested he continue on 325 mg of aspirin daily which was reduced his risk of stroke to 2 .6 %/year. When last seen by Dr. Malin, he noted from a cardiovascular standpoint he was fairly sta ble and his edema was better, and he had made no changes to his medication, and noted that h is previous hospitalization at [facility] was from viral gastroenteritis, cirrhosis, [...] the emergency room and then hospitalized at [facility] in May for weakness and hyponatremia, and after that he was moved to [facility] where he has been for the past [...] retention, and he was treated with a Ebebe catheter and referred to outpatient neurology for further evaluation and treatment. They stopped his torsemide due to dehydration and hyponatremia, and also noted that his blood pressure was n ormal without midodrine. He reports today that he has felt much improved since he has been at [facility], does r favioin abstinent from alcohol. His previous weakness and [...] have improved since he has been at [facility]. Denies unexplained weight loss. Appetite is good. [...] Syncope (5 x in short succession, c. 2011, iatrogenic orthostatic hypotens ion due to antihypertensive [...] in [facility] e 05/2019 Outpatient Medications Prior to Visit [...] QTC 406 ms tracing personally reviewed by nd EK05/28/2019:( [facility]) Atrial fibrillation with controlled ventricular response, possibl e previous anteroseptal infarct. Rate 69 bpm, QRS 90 ms, QTC 411 ms, tracing personally rev iewed by nd EK06/30/2019: Atrial fibrillation with borderline controlled ventricular response nonspec ific ST abnormality consistent with old septal [place]. Rate 98 bpm, QRS 80 ms, QTC 380 ms, trac ing personally reviewed by nd LABS Labs: 05/28/2019:[facility]: Phosphorus 2.9. INR 0.9. CMP: Sodium 123, potassium 3, chloride 80, CO2 29, BUN 4, creatinine 0.62, GFR >120, glucose 110, magnesium 2.1 total bili 1.4, AST 50, ALT 30, alk phos 132,, troponin T <0.010, albumin 3.3. Thyroid: TSH 3.62. CB C: WBC 6.3, RBC 3.07, hemoglobin 10.4, hematocrit 29.8, platelets 154. Digoxin: 1.39. Labs: 05/29/2019: [facility]: BMP: Sodium 132, potassium 3.7, chloride 92, CO2 35, glu cose 104, BUN 4, creatinine 0.7, GFR 112. CBC: WBC 4.7, RBC 2.82, hemoglobin 9.7, hematocri t 27.7, platelets 149. Labs: 05/30/2019: [facility] [place]: Phosphorus 2.1. BMP: Sodium 134, potassium 3.4, chloride 93, CO2 34, glucose 114, BUN 7, creatinine 0.82, GFR 93. Magnesium 2. CBC: WBC 4.4, RBC 3 .12, hemoglobin 10.9, hematocrit 30.8 ASSESSMENT & PLAN: He was here today with customer care coordinator from [facility] as overdue for 6-month follow-up. He has problems as detailed below. Overall he seems quite stable, with previous problems with hypotension and A. fib with RVR resolved on current medications. He reports he has improved greatly since he has been at [facility] for the last 4-5 weeks, and he [...] eris, vital sign and medication record from [facility]. Allergies, current medications.labs Family history, past medical history, past social history, past surgical history. Problem list. YAMILA Bhagat [facility] 07/01/2019 docuashley spear in this encounter Plan of Treatment +--------+---------+ + + + | Date | Type | Specialty | Care Team | Description | +--------+---------+ + + + | 10/06/ | Office | Cardiology | Heather Thomas | | | 2018 | Visit | | [address] | | | | | | [address] | | | | | | [place] [address] | | | | | | [phone] | | | | | | | | +--------+---------+ + + + + +--------+ + + | Name | Priori | Associated Diagnoses | Order Schedule | | | ty | | | + +--------+ + + | Comprehensive Metabolic Panel | Routin | Pedal edema | Expected: | | | e | Hyponatremia | 06/30/2019, Expires: | | | | Hypokalemia | 06/30/2020 | + +--------+ + + | Digoxin Level | Routin | Encounter for | Expected: | | | e | monitoring digoxin | 06/30/2019, Expires: | | | | therapy | 06/30/2020 | + +--------+ + + documented as of this encounter Procedures + +--------+ + + + | Procedure Name | Priori | Date/Time | Associated Diagnosis | Comments | | | ty | | | | + +--------+ + + + | ECG 12 LEAD | Routin | 06/30/2019 | Persistent atrial | Results for this | | | e | 14:18 PDT | fibrillation (HCC) | procedure are in the | | | | | Essential | results section. | | | | | hypertension | | | | | | Hypotensive episode | | | | | | Pedal edema | | | | | | Alcohol abuse | | | | | | Cirrhosis, Laennec's | | | | | | (HCC) Hyponatremia | | | | | | Hypokalemia | | + +--------+ + + + documented in this encounter Results ECG 12 lead (06/30/2019 14:18 PDT) + + + + + + [...] | | | | | by [employer] Read Only, | | | | | | [employer] [place] ([id number]), | | | | | | market editor Moses Webster | | | | | | ([id number]) on 06/30/2019 | | | | | [...] | + + | Persistent atrial fibrillation - Primary Atrial fibrillation | + + [...]
--- OUTSIDE RECORDS SUMMARY | ~2019-09-03 | XMS | Encounter Summary ---
Demographics + + + | Address | [address] | | | [place] [address] | + + + | Home Phone | | + + + | Preferred Language | Unknown | + + + | Marital Status | Single | + + + | Confucianism Affiliation | Unknown | + + + | Race | Unknown | + + + | Ethnic Group | Unknown | + + + Author + + + | Author | [facility] | | | and [place] | + + + | Organization | [facility] | | | and [place] | + + + | Address | Unknown | + + + | Phone | Unavailable | + + + Support + + +---------+ + | Name | Relationship | Address | Phone | + + +---------+ + | Josué An ECON | Unknown | | + + +---------+ + Care Team Providers + +------+ + | Care Magnetic Tape Typewriter Operator Name | Role | Phone | + +------+ + | Dustin Perez MD | PCP | | + +------+ + Encounter Details +--------+ + + + + | Date | Type | Department | Care Team | Description | +--------+ + + + + | 07/03/ | Orders Only | [facility] | Susannah Guo V, | | | 2019 | | CONVERSION [address] | [address] | | | | | [address] | Way [place], [place] | | | | | [place], [place] | [address] | | | | | [address] | | | | | | [phone] | | | +--------+ + + + [...] as of this encounter Plan of Treatment +--------+---------+ + + + | Date | Type | Specialty | Care Team | Description | +--------+---------+ + + + | 10/06/ | Office | Cardiology | Heather Thomas | | | 2019 | Visit | | Lali, [facility] APPRENTICE [address] | | | | | | [address] | | | | | | [place] [address] | | | | | | [phone] | | | | | | | | +--------+---------+ + + + documented as of this encounter Procedures + +--------+ + + + | Procedure Name | Priori | Date/Time | Associated Diagnosis | Comments | | | ty | | | | + +--------+ + + + | ECHO INTERPRETATION | Routin | 05/01/2017 | | Results for this | | OF OUTSIDE FILMS | e | 17:58 PDT | | procedure are in the | | | | | | results section. | + +--------+ + + + documented in this encounter Results ECHO Interpretation of Outside Films (05/01/2017 17:58 PDT) + + | Specimen | + + | | + + + + + | Impressions | Performed At | + + + | 1. Atrial fibrillation. 2. Overall left ventricular systolic | | | function is normal with, an EF between 60 - 65 %. 3. The right | | | ventricle is normal in size and function. 4. The left atrium is | | | mildly enlarged. 5. Mild mitral and tricuspid regurgitation, but no | | | clinically significant valvular abnormalities are present. | | + + + + + + | Narrative | Performed At | + + + | Patient Name: Monty An Date of : 1950 | | | Performing Physician: JOHN CRAFT MD | | | | | | INDICATIONS new onset afib CONCLUSIONS | | | 1. Atrial fibrillation. 2. Overall left ventricular systolic | | | function is normal with, an EF between 60 - 65 %. 3. The right | | | ventricle is normal in size and function. 4. The left atrium is | | | mildly enlarged. 5. Mild mitral and tricuspid regurgitation, but no | | | clinically significant valvular abnormalities are present. | | | FINDINGS -------- ECG rhythm: Atrial fibrillation. Study: A | | | 2-dimensional transthoracic echocardiogram with m-mode, spectral and | | | color flow Doppler was perfomed at [facility]. Study: This | | | was a technically adequate study, although there were Study: poor | | | subcostal views. Left Ventricle: Overall left ventricular systolic | | | function is normal with, an EF between 60 - 65 %. Left Ventricle: The | | | left ventricle cavity size is normal. Left Ventricle: Left | | | ventricular wall thickness is normal. Atri Left Ventricle: al | | | fibrillation prevents accurate assessment of diastolic function. | | | Right Ventricle: The right ventricle is normal in size and function. | | | Left Atrium: The left atrium is mildly enlarged. Right Atrium: The | | | right atrium is normal in size. Aortic Valve: Aortic valve is | | | trileaflet and is moderately thickened, with Aortic Valve: marked | | | focal calcification along the noncoronary cusp, which has restricted | | | motion. The right and left coronary cusps demonstrate normal | | | motility. Aortic Valve: There is no evidence of aortic regurgitation. | | | Aortic Valve: There is no significant aortic stenosis. Aortic | | | Valve: The aortic valve area by continuity equation is 2.1cm | | | Aortic Valve: Peak/mean gradient across the valve is | | | 10.86mmHg/5.32mmHg. Mitral Valve: The mitral valve is normal. Mitral | | | Valve: Mild mitral regurgitation is present. Tricuspid Valve: The | | | tricuspid valve appears structurally normal. Tricuspid Valve: Mild | | | tricuspid regurgitation present. Tricuspid Valve: The right | | | ventricular systolic pressure (pulmonary artery systolic pressure), as | | | measured by Doppler, is 24 mmHg + CVP, which could not be estimated | | | accurately on this study, as the IVC was not visualized. Pulmonic | | | Valve: Pulmonic valve appears structurally normal. Pulmonic Valve: | | | Trace pulmonic regurgitation. Pericardium: There is no pericardial | | | effusion. IVC/Hepatic Veins: The IVC was not visualized. Aorta: The | | | aortic root, ascending aorta and aortic arch are normal. Mass: No | | | mass visualized Thrombus: No clot visualized Thrombus: No vegetation | | | visualized. Septum: No ASD observed. Septum: No VSD observed. | | | MEASUREMENTS Ao asc: 3.03 cm Ao sinus: 3.31 | | | cm EDV(Teich): 117.28 ml IVSd: 1.05 cm LVIDd: 4.98 cm | | | LVPWd: 0.91 cm LVOT Diam: 2.28 cm %FS: 31.66 % | | | EF(Teich): 59.41 % ESV(Teich): 47.59 ml LVIDs: 3.40 cm | | | SV(Teich): 69.68 ml RVIDd: 2.88 cm LVEF MOD A2C: 53.17 % | | | SV MOD A2C: 39.28 ml LVEF MOD A4C: 56.35 % SV MOD A4C: | | | 33.82 ml EF Biplane: 54.18 % LVEDV MOD BP: 67.02 ml LVESV | | | MOD BP: 30.70 ml LVEDV MOD A2C: 73.87 ml LVLd A2C: 7.28 | | | cm LVEDV MOD A4C: 60.01 ml LVLd A4C: 7.40 cm LVESV MOD | | | A2C: 34.59 ml LVLs A2C: 6.13 cm LVESV MOD A4C: 26.19 ml | | | LVLs A4C: 5.83 cm LAESV(A-L): 68.41 ml LAESV Index | | | (A-L): 31.24 ml/m2 LAAs A2C: 19.15 cm2 LAESV A-L A2C: | | | 60.27 ml LALs A2C: 5.16 cm LAAs A4C: 21.74 cm2 LAESV A-L | | | A4C: 77.46 ml LALs A4C: 5.18 cm RAAs: 16.35 cm2 RAESV | | | A-L: 49.97 ml RAESV MOD: 45.62 ml RALs: 4.54 cm AV | | | maxP.86 mmHg AV meanP.31 mmHg AV Vmax: 1.64 m/s | | | AV Vmean: 1.08 m/s AV VTI: 28.52 cm CALI Vmax: 1.70 cm2 | | | CALI (VTI): 2.12 cm2 AVAI Vmax: 0.00 cm2/m2 AVAI (VTI): | | | 0.00 cm2/m2 LVOT maxP.90 mmHg LVOT meanP.13 mmHg | | | LVSI Dopp: 27.66 ml/m2 LVSV Dopp: 60.58 ml LVOT Vmax: | | | 0.68 m/s LVOT Vmean: 0.50 m/s LVOT VTI: 14.83 cm MV E | | | Elliot: 1.12 m/s MV DecT: 129.17 ms TR maxP.27 mmHg | | | TR Vmax: 2.46 m/s Sheet Metal Layout Worker: [email or web address] Authenticated | | | by: JOHN CRAFT MD Report Date/Time: 05-01-2017 17:57:56 | | + + + + + | Procedure Note | + + | Valdemar, Rad Conversion - 07/03/20192020 PDT Patient Name: Miladis An of | | : 1950 Performing Physician: JOHN CRAFT, | | MD INDICATIONS n | | ew onset afib CONCLUSIONS 1. Atrial fibrillation.2. Overall left ventricular | | systolic function is normal with, an EF between 60 - 65 %.3. The right ventricle is | | normal in size and function.4. The left atrium is mildly enlarged. 5. Mild mitral and | | tricuspid regurgitation, but no clinically significant valvular abnormalities are | | present. FINDINGS--------ECG rhythm: Atrial fibrillation.Study: A 2-dimensional | | transthoracic echocardiogram with m-mode, spectral and color flow Doppler was perfomed | | at [facility].Study: This was a technically adequate study, although there | | wereStudy: poor subcostal views.Left Ventricle: Overall left ventricular systolic | | function is normal with, an EF between 60 - 65 %.Left Ventricle: The left ventricle | | cavity size is normal.Left Ventricle: Left ventricular wall thickness is normal. | | AtriLeft Ventricle: al fibrillation prevents accurate assessment of diastolic | | function.Right Ventricle: The right ventricle is normal in size and function.Left | | Atrium: The left atrium is mildly enlarged.Right Atrium: The right atrium is normal in | | size.Aortic Valve: Aortic valve is trileaflet and is moderately thickened, withAortic | | Valve: marked focal calcification along the noncoronary cusp, which has restricted | | motion. The right and left coronary cusps demonstrate normal motility.Aortic Valve: | | There is no evidence of aortic regurgitation.Aortic Valve: There is no significant | | aortic stenosis.Aortic Valve: The aortic valve area by continuity equation is | | 2.1cm Aortic Valve: Peak/mean gradient across the valve is | | 10.86mmHg/5.32mmHg.Mitral Valve: The mitral valve is normal.Mitral Valve: Mild mitral | | regurgitation is present.Tricuspid Valve: The tricuspid valve appears structurally | | normal.Tricuspid Valve: Mild tricuspid regurgitation present.Tricuspid Valve: The right | | ventricular systolic pressure (pulmonary artery systolic pressure), as measured by | | Doppler, is 24 mmHg + CVP, which could not be estimated accurately on this study, as the | | IVC was not visualized.Pulmonic Valve: Pulmonic valve appears structurally | | normal.Pulmonic Valve: Trace pulmonic regurgitation.Pericardium: There is no | | pericardial effusion.IVC/Hepatic Veins: The IVC was not visualized.Aorta: The aortic | | root, ascending aorta and aortic arch are normal.Mass: No mass visualizedThrombus: No | | clot visualizedThrombus: No vegetation visualized.Septum: No ASD observed.Septum: No VSD | | observed. MEASUREMENTS Ao asc: 3.03 cmAo sinus: 3.31 cmEDV(Teich): | | 117.28 mlIVSd: 1.05 cmLVIDd: 4.98 cmLVPWd: 0.91 cmLVOT Diam: 2.28 cm%FS: 31.66 | | %EF(Teich): 59.41 %ESV(Teich): 47.59 mlLVIDs: 3.40 cmSV(Teich): 69.68 mlRVIDd: | | 2.88 cmLVEF MOD A2C: 53.17 %SV MOD A2C: 39.28 mlLVEF MOD A4C: 56.35 %SV MOD A4C: | | 33.82 mlEF Biplane: 54.18 %LVEDV MOD BP: 67.02 mlLVESV MOD BP: 30.70 mlLVEDV | | MOD A2C: 73.87 mlLVLd A2C: 7.28 cmLVEDV MOD A4C: 60.01 mlLVLd A4C: 7.40 cmLVESV | | MOD A2C: 34.59 mlLVLs A2C: 6.13 cmLVESV MOD A4C: 26.19 mlLVLs A4C: 5.83 | | cmLAESV(A-L): 68.41 mlLAESV Index (A-L): 31.24 ml/m2LAAs A2C: 19.15 [id number] A-L | | A2C: 60.27 mlLALs A2C: 5.16 cmLAAs A4C: 21.74 [id number] A-L A4C: 77.46 mlLALs | | A4C: 5.18 cmRAAs: 16.35 [id number] A-L: 49.97 mlRAESV MOD: 45.62 mlRALs: 4.54 | | cmAV maxP.86 mmHgAV meanP.31 mmHgAV Vmax: 1.64 m/Brenda Vmean: 1.08 m/Brenda | | VTI: 28.52 cmAVA Vmax: 1.70 cm2AVA (VTI): 2.12 [id number] Vmax: 0.00 cm2/m2AVAI | | (VTI): 0.00 cm2/m2LVOT maxP.90 mmHgLVOT meanP.13 mmHgLVSI Dopp: 27.66 | | ml/m2LVSV Dopp: 60.58 mlLVOT Vmax: 0.68 m/sLVOT Vmean: 0.50 m/sLVOT VTI: 14.83 | | cmMV E Elliot: 1.12 m/sMV DecT: 129.17 msTR maxP.27 mmHgTR Vmax: 2.46 m/s | | Sheet Metal Layout Worker: [email or web address] by: Dagoberto TORIBIO Date/Time: 05-01-2017 17:57:56 | | IMPRESSION: 1. Atrial fibrillation.2. Overall left ventricular systolic function is | | normal with, an EF between 60 - 65 %.3. The right ventricle is normal in size and | | function.4. The left atrium is mildly enlarged. 5. Mild mitral and tricuspid | | regurgitation, but no clinically significant valvular abnormalities are present. | |Septum: No VSD observed. | | | |MEASUREMENTS | | | |Ao asc: 3.03 cm | |Ao sinus: 3.31 cm | |EDV(Teich): 117.28 ml | |IVSd: 1.05 cm | |LVIDd: 4.98 cm | |LVPWd: 0.91 cm | |LVOT Diam: 2.28 cm | |%FS: 31.66 % | |EF(Teich): 59.41 % | |ESV(Teich): 47.59 ml | |LVIDs: 3.40 cm | |SV(Teich): 69.68 ml | |RVIDd: 2.88 cm | |LVEF MOD A2C: 53.17 % | |SV MOD A2C: 39.28 ml | |LVEF MOD A4C: 56.35 % | |SV MOD A4C: 33.82 ml | |EF Biplane: 54.18 % | |LVEDV MOD BP: 67.02 ml | |LVESV MOD BP: 30.70 ml | |LVEDV MOD A2C: 73.87 ml | |LVLd A2C: 7.28 cm | |LVEDV MOD A4C: 60.01 ml | |LVLd A4C: 7.40 cm | |LVESV MOD A2C: 34.59 ml | |LVLs A2C: 6.13 cm | |LVESV MOD A4C: 26.19 ml | |LVLs A4C: 5.83 cm | |LAESV(A-L): 68.41 ml | |LAESV Index (A-L): 31.24 ml/m2 | |LAAs A2C: 19.15 cm2 | |LAESV A-L A2C: 60.27 ml | |LALs A2C: 5.16 cm | |LAAs A4C: 21.74 cm2 | |LAESV A-L A4C: 77.46 ml | |LALs A4C: 5.18 cm | |RAAs: 16.35 cm2 | |RAESV A-L: 49.97 ml | |RAESV MOD: 45.62 ml | |RALs: 4.54 cm | |AV maxP.86 mmHg | |AV meanP.31 mmHg | |AV Vmax: 1.64 m/s | |AV Vmean: 1.08 m/s | |AV VTI: 28.52 cm | |CALI Vmax: 1.70 cm2 | |CALI (VTI): 2.12 cm2 | |AVAI Vmax: 0.00 cm2/m2 | |AVAI (VTI): 0.00 cm2/m2 | |LVOT maxP.90 mmHg | |LVOT meanP.13 mmHg | |LVSI Dopp: 27.66 ml/m2 | |LVSV Dopp: 60.58 ml | |LVOT Vmax: 0.68 m/s | |LVOT Vmean: 0.50 m/s | |LVOT VTI: 14.83 cm | |MV E Elliot: 1.12 m/s | |MV DecT: 129.17 ms | |TR maxP.27 mmHg | |TR Vmax: 2.46 m/s | | | |Sheet Metal Layout Worker: [email or web address] | |Authenticated by: JOHN CRAFT MD | |Report Date/Time: 05-01-2017 17:57:56 | | | |IMPRESSION: | |1. Atrial fibrillation. | |2. Overall left ventricular systolic function is normal with, an EF between 60 - 65 %. | |3. The right ventricle is normal in size and function. | |4. The left atrium is mildly enlarged. 5. Mild mitral and tricuspid regurgitation, but no c linically significant valvular abnormalities are present. | + + documented in this encounter Visit Diagnoses Not on filedocumented in this encounter"
--- OUTSIDE RECORDS SUMMARY | ~2019-09-03 | XMS | Clinical Summary ---
Demographics + + + | Address | [address] | | | [place] [address] | + + + | Home Phone | | + + + | Preferred Language | Unknown | + + + | Marital Status | Single | + + + | Faith Affiliation | Unknown | + + + [...] Team Providers + +------+ + | Care Catheterization Laboratory Technician Name | Role | Phone | + +------+ + | Dustin Perez MD | PCP | | + +------+ + Allergies No Known Allergies Medications + + + +---------+------+------+-------+ | Medication | Sig | Dispensed | Refills | Star | End | Statu | | | | | | t | Date | s | | | | | | Date | | | + + + +---------+------+------+-------+ | Multiple | Take 1 tablet by | | 0 | /0 | | Activ | | Vitamins-Minerals | mouth daily. | | | 08/01 | | e | | (MENS MULTIVITAMIN | | | | 18 | | | | PLUS PO) | | | | | | | + + + +---------+------+------+-------+ | digoxin (LANOXIN) | Take 125 mcg by | | 0 | 10/13 | | Activ | | 125 mcg tablet | mouth daily. | | | 05/01 | | e | | | | | | 17 | | | + + + +---------+------+------+-------+ | gabapentin | Take 600 mg by mouth | | 0 | 0 | | Activ | | (NEURONTIN) 600 MG | nightly. | | | 05/31 | | e | | tablet | | | | 17 | | | + + + +---------+------+------+-------+ | aspirin 81 mg EC | Take 81 mg by mouth | | 0 | | | Activ | | tablet | Daily. | | | | | e | + + + +---------+------+------+-------+ | magnesium | Take 30 mLs by mouth | | 0 | | | Activ | | hydroxide (MILK OF | Daily as needed for | | | | | e | | MAGNESIA) 400 mg/5 | Constipation. | | | | | | | mL suspension | | | | | | | + + + +---------+------+------+-------+ | bisacodyl | Place 10 mg rectally | | 0 | | | Activ | | (DULCOLAX) 10 mg | Daily as needed for | | | | | e | | suppository | Constipation. | | | | | | + + + +---------+------+------+-------+ | sodium phosphate | Place 133 mLs | | 0 | | | Activ | | (FLEET) enema | rectally Daily as | | | | | e | | | needed for | | | | | | | | Constipation. | | | | | | + + + +---------+------+------+-------+ | loperamide | Take 2 mg by mouth | | 0 | | | Activ | | (IMODIUM) 2 mg | as needed for | | | | | e | | capsule | Diarrhea. | | | | | | + + + +---------+------+------+-------+ | thiamine (VITAMIN | Take 100 mg by mouth | | 0 | | | Activ | | B-1) 100 mg tablet | Daily. | | | | | e | + + + +---------+------+------+-------+ | cyanocobalamin | Take 100 mcg by | | 0 | | | Activ | | (VITAMIN B-12) 100 | mouth Daily. | | | | | e | | MCG tablet | | | | | | | + + + +---------+------+------+-------+ | doxycycline | Take 100 mg by mouth | | 0 | | | Activ | | (MONODOX) 100 mg | 2 times daily. | | | | | e | | capsule | | | | | | | + + + +---------+------+------+-------+ | tamsulosin | Take 0.4 mg by mouth | | 0 | | | Activ | | (FLOMAX) 0.4 mg CAPS | nightly. | | | | | e | + + + +---------+------+------+-------+ | melatonin 3 mg | Take 1 tablet by | | 0 | | | Activ | | TABS | mouth nightly. | | | | | e | + + + +---------+------+------+-------+ | omeprazole | Take 20 mg by mouth | | 0 | | | Activ | | (PRILOSEC) 20 mg | 2 times daily | | | | | e | | capsule | (before meals). | | | | | | + + + +---------+------+------+-------+ | torsemide | Take 1 tablet by | 30 | 11 | 10/2 | | Activ | | (DEMADEX) 10 mg | mouth Daily. | tablet | | 1/20 | | e | | tablet | | | | 19 | | | + + + +---------+------+------+-------+ | potassium chloride | Take 1 tablet by | 60 | 11 | 10/ | | Activ | | (KLOR-CON M20) 20 | mouth 2 times daily. | tablet | | 12/01 | | e | | mEq ER tablet | | | | 19 | | | + + + +---------+------+------+-------+ Active Problems + + + | Problem | Noted Date | + + + | Encounter for monitoring diuretic therapy | 09/01/2019 | + + + | Bilateral lower extremity edema | 06/30/2019 | + + + | Hyponatremia | 06/30/2019 | + + + | Hypokalemia | 06/30/2019 | + + + | Encounter for monitoring digoxin therapy | 06/30/2019 | + + + | Atrial fibrillation | | + + + + + | Overview: persistent, CHADS2 VASc 3, refused anticoagulation | + + + +---+ | Essential hypertension | | + +---+ | Hypotensive episode | | + +---+ | Alcohol abuse | | + +---+ | Cirrhosis, Laennec's | | + +---+ Encounters +--------+ + + + + | Date | Type | Specialty | Care Team | Description | +--------+ + + + + | 09/01/ | Office | Cardiology | Heather Thomas | Longstanding | | 2019 | Visit | | [facility] | persistent atrial | | | | | | fibrillation | | | | | | (Primary Dx); | | | | | | Encounter for | | | | | | monitoring diuretic | | | | | | therapy; Essential | | | | | | hypertension; | | | | | | Encounter for | | | | | | monitoring digoxin | | | | | | therapy; Cirrhosis, | | | | | | Laechace's (HCC); | | | | | | Alcohol abuse; | | | | | | Bilateral lower | | | | | | extremity edema | +--------+ + + + + | 07/03/ | Orders Only | | Susannah Guo V, | | | 2018 | | | MD | | +--------+ + + + + | 06/30/ | Office | Cardiology | William Heather | Persistent atrial | | 2018 | Visit | | [facility] | fibrillation (HCC) | | | | | | (Primary Dx); | | | | | | Essential | | | | | | hypertension; | | | | | | Hypotensive episode; | | | | | | Pedal edema; | | | [...] | | | | | therapy | +--------+ + + + + from Last 3 Months Family History + + +------+ + | Medical History | Relation | Name | Comments | + + +------+ + | Kidney disease | Brother | | | + + +------+ + | Other (see comment) | Brother | | Neurologic Disorder - quadriplegic (from | | | | | injury) | + + +------+ + | Bipolar disorder | Daughter | | | + + +------+ + | Stroke | Father | | | + + +------+ + | COPD | Mother | | | + + +------+ + + +------+ + + | Relation | Name | Status | Comments | + +------+ + + | Brother | | Alive | | + +------+ + + | Brother | | | | + +------+ + + | Daughter | | Alive | | + +------+ + + | Daughter | | | | + +------+ + + | Father | | | CVA | | | | (Age | | | | | 84) | | + +------+ + + | Father | | | | + +------+ + + | Mother | | | emphysema | | | | (Age | | | | | 84) | | + +------+ + + | Mother | | | | + +------+ + + | Son | | Alive | | + +------+ + + Social History + + + [...] recent travel history available. | + + Last Filed Vital Signs + + + + | Vital Sign | Reading | Time Taken | + + + + | Blood Pressure | 110/54 | 09/01/20191330 PDT | + + + + | Pulse | 88 | 09/01/20191330 PDT | + + + + | Temperature | - | - | + + + + | Respiratory Rate | 20 | 10/08/20184 PST | + + + + | Oxygen [...] Body Mass Index | 28.45 | 09/01/2019 1331 PDT | + + + + Plan of Treatment +--------+---------+ + + + | Date | Type | Specialty | Care Team | Description | +--------+---------+ + + + | 10/06/ | Office | Cardiology | Heather Thomas | | | 2018 | Visit | | [facility] [address] | | | | | | [address] | | | | | | [place] [address] | | | | | | [phone] | | | | | | | | +--------+---------+ + + + + + + + + | Health Maintenance | Due Date | Last Done | Comments | + + + + + | Hepatitis C | | | | | Screening | 0 | | | + + + + + | Vaccine: | | | | | Dtap/Tdap/Td (1 - | 9 | | | | Tdap) | | | | + + + + + | Colorectal Cancer | | | | | Screening | 0 | | | | (Colonoscopy) | | | | + + + + + | Vaccine: Zoster (2 | | 12/09/2013 | | | of 3) | 4 | | | + + + + + | AAA Screening | | | | | | 5 | | | + + + + + | Vaccine: | | 07/14/2009 | | | Pneumococcal 65+ | 5 | | | | Low/Medium Risk (1 | | | | | of 2 - PCV13) | | | | + + + + + | Adult Annual | | | | | Wellness Visit | 9 | | | + + + + + | Vaccine: Influenza | | 08/24/2018, 08/18/2016, | | | (#1) | 9 | 01/21/2016, Additional history | | | | | exists | | + + + + + Procedures + +--------+ + + + | [...] | | + +--------+ + + + from Last 3 Months Results ECG 12 lead (06/30/2019 14:18 PDT) [...] INTERPRETAT | Please refer to | | [facility] | | | ION TEXT | Providers office visit | | | | | | note for Providers | | | | | | Interpretation.Confirmed | | | | | | by [facility] Read Only, | | | | | | [facility] ([id number]), | | | | | | graphics editor Moses Webster | | | | | | (253) on 06/30/2019 | | | | | [...] | | | + +---------+ + + from Last 3 Months Insurance + +--------+ +--------+ + +--------+ | Payer | Benefi | Subscriber | Effect | Phone | Address | Type | | | t Plan | ID | corry | | | | | | / | | Dates | | | | | | Group | | | | | | + +--------+ +--------+ + +--------+ | MEDICARE | MEDICA | [id number] | 12/13/19 | [phone] | | Medica | | | RE | | 07-Pre | 5 | | re | | | PART A | | sent | | | | | | AND B | | | | | | + +--------+ +--------+ + +--------+ | MODA | MODA | [id number] | 11/12/19 | [phone] | [address] | Indemn | | | HEALTH | | 19-Pre | 9 | [id number] | ity | | | MDCR | | sent | | [place], | | | | [place] | | | | [place] [address] | | + +--------+ +--------+ + +--------+ + +--------+ +--------+ + + | Guarantor Name | Accoun | Relation to | Date | Phone | Billing Address | | | t Type | Patient | of | | | | | | | | | | + +--------+ +--------+ + + | Monty An | Person | Self [birth year] | [address] | | | al/Fam | | 1950 | [phone] | [address] [place], | | | ursula | | | 2 (Home) | [place] [address] | | | | | | [phone] | | | | | | | 2 (Work) | | + +--------+ +--------+ + + Advance Directives Patient has advance care planning documents on file. For more information, please contact:[facility] [place] [address]
--- OUTSIDE RECORDS SUMMARY | ~2019-09-03 | XMS | Clinical Summary ---
Demographics + + + | Address | [address] | | | [place] [address] | + + + | Home Phone | | + + + | Preferred Language | Unknown | + + + | Marital Status | | + + + | Temple Affiliation | Unknown | + + + | Race | Unknown | + + + | Ethnic Group | Unknown | + + + Author + + + | Author | [facility] [employer] (Historical as of | | | 06-28-19) | + + + | Organization | [facility] [employer] (Historical as of | | | 06-28-19) | + + + | Address | Unknown | + + + | Phone | Unavailable | + + + Support + + +---------+ + | Name | Relationship | Address | Phone | + + +---------+ + | Corey Botello | ECON | Unknown | | + + +---------+ + Care Team Providers + +------+ + | Care Beamer Operator Name | Role | Phone | [...] tablet | mouth daily. | | | 20 | | e | | | | [...] | 3 (three) times | | | 20 | | e | | GM/15ML solution [...] | 60 | 11 | 01/0 | | Activ | | (DEMADEX) 20 MG | mouth 2 (two) times | tablet | | 9/20 | | e | | tablet | daily. | | | 18 | | | + + +--------+---------+------+------+-------+ | aspirin 325 MG | Take 325 mg by mouth | | | | | Activ | | tablet | daily with | | | | | e | | | breakfast. | | | | | | + + +--------+---------+------+------+-------+ | potassium chloride | Take 20 mEq by mouth | | | | | Activ | | SA (CHANDU KU) | 2 (two) times daily | | | | | e | | 20 MEQ tablet | with meals. | | | | | | + + +--------+---------+------+------+-------+ Active Problems + + + | Problem [...] Cirrhosis, Laennec's (HCC) | | + +---+ Family History + + +------+ + | [...] Yes | 42 Cans | 25.2 | states hasnt drank in 2.5 months | | | of beer | | | + + +---------+ + + + + | Sex Assigned at | Date Recorded | | | | + + + | Not on file | | + + + Last Filed Vital Signs + + + + | Vital Sign | Reading | Time Taken | + + + + | Blood Pressure | 130/70 | 10/08/2018 1:02 PM PST | + + + + | Pulse | 74 | 10/08/2018 1:02 PM PST | + + + + | Temperature | - | - | + + + + | Respiratory Rate | 20 | 10/08/2018 1:02 PM PST | + + + + | Oxygen Saturation | 93% | 10/08/2018 1:02 PM PST | + + + + | Inhaled Oxygen | - | - | | Concentration | | | + + + + | Weight | 81.6 kg (180 lb) | 10/08/2018 1:02 PM PST | + + + + | Height | 182.9 cm (6') | 10/08/2018 1:02 PM PST | + + + + | Body Mass Index | 24.41 | 10/08/2018 1:02 PM PST | + + + + Plan of [...] | | | | | (#1) | 9 | | | + + + + + Results Not on filefrom Last 3 Months Insurance + +--------+ +------+-------+ + | Payer | Benefi | Subscriber | Type | Phone | Address | | | t Plan | ID | | | | | | / | | | | | | | Group | | | | | + +--------+ +------+-------+ + | MEDICARE | MEDICA | [id number] | | | [address] | | | RE | | | | [place] [address] | | | IP-OP | | | | | + +--------+ +------+-------+ + | ODS HEALTH PLAN | ODS | [id number] | | | | | | HEALTH [...] [birth year] | Work: | [address] | | | al/Fam | | 1950 | [phone] | [place] | | | ursula | | | [phone] Home: | [place] [address] | | | | | | | | | | | | | [phone] | | | | | | [phone] | | + +--------+ +--------+ + +"
--- OUTSIDE RECORDS SUMMARY | ~2019-09-03 | XMS | Encounter Summary ---
Demographics + + + | Address | [address] | | | [place] [address] | + + + | Home Phone | | + + + | Preferred Language | Unknown | + + + | Marital Status | Single | + + + | Episcopalian Affiliation | NRP | + + + | Race | White | + + + | Ethnic Group | Other Race | + + + Author + + + | Author | [facility] | + + + | Organization | [facility] | + + + | Address | Unknown | + + + | Phone | Unavailable | + + + Support + + +---------+ + | Name | Relationship | Address | Phone | + + +---------+ + | Norberto An | ECON | Unknown | | + + +---------+ + Care Team Providers + +------+ + | Care Account Executive Software Sales Name | Role | Phone | + +------+ + PCP | Unavailable | + +------+ + Encounter Details +--------+ + + + + | Date | Type | Department | Care Team | Description | +--------+ + + + + | 08/23/ | Hospital | LAB SURGICAL | | | | 2009 | Encounter | PATHOLOGY [address] | | | [address] | | | | | | [place], [place] | | | | | | [address] | | | +--------+ + + + [...] | + +--------+ + + + | SURGICAL PATHOLOGY | Routin | 08/23/2010 | | Results for this | | | e | | | procedure are in the | | | | | | results section. 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 There is, | | | | | | however, evidenceof a | | | | | | mild myopathic process, | | | | | | mostly shown by presence | | | | | | of round | | | | | | atrophicmyofibers. | | | | | | There is no | | | | | | inflammation, | | | | | | vasculitis, myofiber | | | | | | necrosis, orgranulomas. | | | | | | MHC-1 is only focally | | | | | | positive. These | | | | | | findings are | | | | | | morecompatible with a | | | | | | statin-induced myopathy, | | | | | | rather than an | | | | | | inflammatoryprocess. | | | | | | Mild mitochondrial | | | | | | changes are present, | | | | | | attributable to | | | | | | normalaging. There is an | | | | | | increased lipid content | | | | | | in type 1 fibers. This | | | | | | is ofunknown | | | | | | significance, and may | | | | | | happen during chronic | | | | | | steroid therapy. | | | | | | Case seen by:Nav Hitchcock | | | | | | Sheri Martinez / | | | | | | NeuropathologistT: | | | | | | 08/30/10; tucker | | | | | | ? | | | | | | ? | | | | | | ? | | | | | | Clinical | | | | | | History:The patient is a | | | | | | 60-year-old male with a | | | | | | history of | | | | | | hyperlipidemia, | | | | | | gout,hypertension, renal | | | | | | insufficiency, and | | | | | | peripheral neuropathy | | | | | | who developedunsteady | | | | | | gait, painful and weak | | | | | | muscles over the course | | | | | | of [id number] | | | | | | days. He was found to | | | | | | have markedly elevated | | | | | | myoglobin and CPK(0381) | | | | | | levels. He takes | | | | | | Crestor for his | | | | | | hyperlipidemia. He has | | | | | | been onAllopurinol. | | | | | | Examination shows | | | | | | severe muscle weakness | | | | | | lasting at least 10days | | | | | | with some muscle pain | | | | | | associated with it. | | | | | | Past medical history | | | | | | ofdyslipidemia, gout, | | | | | | hypertension, renal | | | | | | insufficiency, alcohol | | | | | | use andperipheral | | | | | | neuropathy. Patient's | | | | | | potassium is very low. | | | | | | This raises | | | | | | thesuspicion of periodic | | | | | | paralysis. Patient is | | | | | | suspected to | | | | | | haverhabdomyolysis. | | | | | | Gross Description:The | | | | | | specimen is received | | | | | | fresh from Dr. Canchola | | | | | | [facility] | | | [facility],[place], | | | | | | [place], delivered via | | | | | | fashion show director on moist gauze | | | | | | over ice, labeledwith | | | | | | the patient's name | | | | | | (initials DB) and "left | | | | | | thigh." It consists of | | | | | | apiece of pale red | | | | | | tissue with attached | | | | | | fat, and measures 3.0 x | | | | | | 2.5 x 1.0cm. A portion | | | | | | of the specimen is | | | | | | fixed in formalin for | | | | | | paraffin-embeddingas | | | | | | block A2, a small | | | | | | fragment is fixed in | | | | | | glutaraldehyde for | | | | | | possibleelectron | | | | | | microscopy, and the | | | | | | remainder is frozen for | | | | | | histochemical studies. | | | | | | Cassette Index:A1: | | | | | | Muscle biopsy, | | | | | | frozenA2: Muscle | | | | | | biopsy, paraffin | | | | | | Microscopic | | | | | | Description:Hematoxylin | | | | | | and eosin stained | | | | | | sections reveal numerous | | | | | | angular atrophicfibers, | | | | | | sometimes in groups. | | | | | | There are no | | | | | | inflammatory cells or | | | | | | necroticfibers. | | | | | | Abnormal vacuolization | | | | | | is not observed. | | | | | | Trichrome shows a | | | | | | veryrare ragged red | | | | | | fibers. SDH shows rare | | | | | | ragged blue fibers. | | | | | | Cytochromeoxidase shows | | | | | | rare fibers with no | | | | | | staining with this | | | | | | enzyme. ATPase at | | | | | | 9.4and 4.5 shows atrophy | | | | | | of both fiber types but | | | | | | with a dominance of | | | | | | type 2atrophy. NADH | | | | | | shows targetoid fibers. | | | | | | There is also evidence | | | | | | of typegrouping on | | | | | | ATPase and NADH stained | | | | | | sections. Oil-Red O | | | | | | shows increasedlipid in | | | | | | type 1 fibers. PAS | | | | | | with diastase is | | | | | | unremarkable for | | | | | | abnormaldeposits. | | | | | | Alkaline phosphatase | | | | | | shows no evidence of | | | | | | connective | | | | | | tissuestaining or | | | | | | regenerative fibers. | | | | | | NSE shows rare angular | | | | | | atrophic fibersshowing | | | | | | dark granular staining. | | | | | | Acid phosphatase is | | | | | | unremarkable. | | | | | | MHC-1labels a rare | | | | | | myofiber only, and is | | | | | | mostly confined to the | | | | | | blood vessels. | | | | | | (Analyte specific | | | | | | reagents are used in | | | | | | many laboratory tests | | | | | | necessary forstandard | | | | | | medical care and | | | | | | generally do not require | | | | | | FDA approval. This | | | | | | testwas developed and | | | | | | its performance | | | | | | characteristics | | | | | | determined by | | | | | | [facility]. It has | | | | | | not been cleared or | | | | | | approved by the U.S. | | | | | | Food and | | | | | | DrugAdministration.) | | | | | | My electronic | | | | | | signature indicates that | | | | | | I have personally | | | | | | reviewed alldiagnostic | | | | | | slides, the gross and/or | | | | | | microscopic portion of | | | | | | thisreport and | | | | | | formulated the final | | | | | | diagnosis. | | | | | | Rendering Diagnostician: | | | | | | Nav Martinez | | | | | | SheriPathologistZacharyi | | | | | | devante Signed 09/07/2010 | | | | + + + + + + + + | Specimen | + + | | + + + + + + + | Performing | Address | City/State/Zipcode | Phone Number | | Organization | | | | + + + + + | [facility] | [address] | [place] [address] | | | PATHOLOGY | [address] | | | + + + + + documented in this encounter Visit Diagnoses Not on filedocumented in this encounter
--- OUTSIDE RECORDS SUMMARY | ~2019-09-03 | XMS | Clinical Summary ---
Demographics + + + | Address | [address] | | | [place] [address] | + + + | Home Phone [...] Team Providers + +------+ + | Care Marble Cutter Operator Name | Role | Phone | + +------+ + | Dustin Perez MD | PCP | | + +------+ + Source Comments RADHA is fully live on both [facility] Ambulatory and [facility] InPatient.[facility] Allergies Not on File Medications Not on file Active Problems Not [...] | + + Last Filed Vital Signs Not on file Plan of Treatment Not on file Results [...] + +--------+ | MEDICARE | MEDICA | xxxxxxxxxx | 12/13/19 | [phone] | [address] | Medica | | | RE A & | | 07-Pre | 1 | [address] | re | | | [address] | | sent | | [place], [place] | | | | | | | | [address] | | + +--------+ +--------+ + +--------+ | MODA MEDICARE | MODA | xxxxxxxxx | 11/01/ | [phone] | [address] | [address] | | SUPPLEMENT | MEDICA | | 2015-P | 4 | [phone] | | | | RE | | resent | | [place], | | | | SUPPLE | | | | [place] [address] | | | | MENT | | [...] Self | [birth year] | [address] | | | al/Fam | | 1950 | [phone] | [address] [place] | | | ursula | | | [address] ([place]) | [phone] | + +--------+ +--------+ + +"
--- OUTSIDE RECORDS SUMMARY | ~2019-09-03 | XMS | Clinical Summary ---
Demographics + + + | Address | [address] | | | [place] [address] | + + + | Home Phone | | + + + | Preferred Language | Unknown | + + + | Marital Status | | + + + | Rastafarian Affiliation | Unknown | + + + | Race | Unknown | + + + | Ethnic Group | Unknown | + + + Author + + + | Author | [facility] (Historical as of | | | 06-28-19) | + + + | Organization | [facility] (Historical as of | | | 06-28-19) [...] Team Providers + +------+ + | Care Maple Sugar Maker Name | Role | Phone | [...] +------+-------+ + | MEDICARE | MEDICA | [id number] | | | [address] | | | RE | | | | [place] [address] | | | IP-OP | | | | | + +--------+ +------+-------+ + | ODS HEALTH PLAN | ODS | [id number] | | | | | | HEALTH [...] | | al/Fam | | 1950 | [phone] | [place] | | | ursula | | | [address] Home: | [place] [address] | | | | | | | | | | | | | [phone] | | | | | | | [address] | | + +--------+ +--------+ + +"
--- OUTSIDE RECORDS SUMMARY | ~2019-09-03 | XMS | Encounter Summary ---
Demographics + + + | Address | [address] | | | [place] [address] | + + + | Home Phone | | + + + | Preferred Language | Unknown | + + + | Marital Status | Single | + + + | Buddhism Affiliation | Unknown | + + + [...] Team Providers + +------+ + | Care Internet Marketing Specialist Name | Role | Phone | [...] + + | 06/30/ | Office | [facility] | Heather Thomas | Persistent atrial | | 2019 | Visit | CARDIOLOGY [place] | [address] | fibrillation (HCC) | | | | [address] | [place] | (Primary Dx); | | | | [address] | [place] [address] | Essential | | | | [place], [place] | [phone] | hypertension; | | | | [address] | | Hypotensive episode; | | | | [phone] | | Pedal edema; | | | [...] midodrine, hyperlipidemia, and dependent pedal edema. His [id number] VASC score is 3( age, HTN, DM) [...] noted that h is previous hospitalization at [facility] was from viral gastroenteritis, cirrhosis, mi ld [...] the emergency room and then hospitalized at [facility] in May for weakness and hyponatremia, and after that he was moved to [facility] where he has been for the past [...] much improved since he has been at [place], does r favioin abstinent from alcohol. His [...] have improved since he has been at [facility]. Denies unexplained weight loss. Appetite is good. [...] or illicit drug use. . Lives in [facility] e 05/2019 Outpatient Medications Prior to Visit [...] QTC 406 ms tracing personally reviewed by mt EK05/28/2019:( ER [facility]) Atrial fibrillation with controlled ventricular response, possibl e previous anteroseptal infarct. Rate 69 bpm, QRS 90 ms, QTC 411 ms, tracing personally rev iewed by mt EK06/30/2019: Atrial fibrillation with borderline controlled ventricular response nonspec ific ST abnormality consistent with old septal PR. Rate 98 bpm, QRS 80 ms, QTC 380 ms, trac ing personally reviewed by mt LABS Labs: 05/28/2019:[place] [facility]: Phosphorus 2.9. INR 0.9. CMP: Sodium 123, potassium 3, chloride 80, CO2 29, BUN 4, creatinine 0.62, GFR >120, glucose 110, magnesium 2.1 total bili 1.4, AST 50, ALT 30, alk phos 132,, troponin T <0.010, albumin 3.3. Thyroid: TSH 3.62. CB C: WBC 6.3, RBC 3.07, hemoglobin 10.4, hematocrit 29.8, platelets 154. Digoxin: 1.39. Labs: 05/29/2019: [place] [facility]: BMP: Sodium 132, potassium 3.7, chloride [...] & PLAN: He was here today with healthcare technician from [place] as overdue for 6-month follow-up. He has problems as detailed below. Overall he seems quite stable, with previous problems with hypotension and A. fib with RVR resolved on current medications. He reports he has improved greatly since he has been at [facility] for the last 4-5 weeks, and he [...] eris, vital sign and medication record from [facility]. Allergies, current medications.labs Family history, past medical history, past social history, past surgical history. Problem list. YAMILA Bhagat [facility] 07/01/2019 docuashley spear in this encounter [...] [address] | | | | | | [place] [address] | | | | | | [phone] | | | | | | | [...] | | | | | by [facility] Read Only, | | | | | | [facility] [place] ([id number]), | | | | | | scientific editor Moses Webster | | | | | | [phone]) on 06/30/2019 | | | | | [...]
--- OUTSIDE RECORDS SUMMARY | ~2019-09-03 | XMS | Encounter Summary ---
Demographics + + + | Address | [address] | | | [place] [address] | + + + | Home Phone [...] Team Providers + +------+ + | Care Log Preparer Name | Role | Phone | [...] | | | [address] | [address] [place], [place] | | | | | [place], [place] | [address] | | | | | [address] | | | | | | [phone] | | | +--------+ + + + [...] | 2019 | Visit | | [address] | | | | | | [address] [place] | | | | | | [place] [address] | | | | | | [phone] | | | | | | | [...] | color flow Doppler was perfomed at [facility]. Study: This | | | was a [...] | | | TR Vmax: 2.46 m/s Foxing Cutting Machine Operator: MISTY Authenticated | | | by: JOHN [...] flow Doppler was perfomed | | at [facility].Study: This was a technically adequate study, although [...] mlLAESV Index (A-L): 31.24 ml/m2LAAs A2C: 19.15 [id number] A-L | | A2C: 60.27 mlLALs A2C: 5.16 cmLAAs A4C: 21.74 ll1LUXPQ A-L A4C: 77.46 mlLALs | | A4C: 5.18 cmRAAs: 16.35 xe4OPSEV A-L: 49.97 mlRAESV MOD: 45.62 mlRALs: 4.54 | | cmAV maxP.86 mmHgAV meanP.31 mmHgAV Vmax: 1.64 m/Brenda Vmean: 1.08 m/Brenda | | VTI: 28.52 cmAVA Vmax: 1.70 cm2AVA (VTI): 2.12 cr6CVIT Vmax: 0.00 cm2/m2AVAI | | (VTI): 0.00 cm2/m2LVOT maxP.90 mmHgLVOT meanP.13 mmHgLVSI Dopp: 27.66 | | ml/m2LVSV Dopp: 60.58 mlLVOT Vmax: 0.68 m/sLVOT Vmean: 0.50 m/sLVOT VTI: 14.83 | | cmMV E Elliot: 1.12 m/sMV DecT: 129.17 msTR maxP.27 mmHgTR Vmax: 2.46 m/s | | Foxing Cutting Machine Operator: MISTYAuthenticated by: Dagoberto TORIBIO Date/Time: 05-01-2017 17:57:56 [...] |TR Vmax: 2.46 m/s | | | |Foxing Cutting Machine Operator: DBS | |Authenticated by: JOHN CRAFT MD [...]
--- OUTSIDE RECORDS SUMMARY | ~2019-09-03 | XMS | Clinical Summary ---
Demographics + + + | Address | [address] | | | [place] [address] | + + + | Home Phone | | + + + | Preferred Language | Unknown | + + + | Marital Status | Single | + + + | Protestant Affiliation | Unknown | + + + [...] Team Providers + +------+ + | Care Production Engineer Name | Role | Phone | [...] [address] | | | | | | [place] [address] | | | | | | [phone] | | | | | | | [...] | | | | | by [facility] [place] [facility], | | | | | | [facility] [place] ([id number]), | | | | | | school photograph editor Moses Webster | | | | [...] + +--------+ | MEDICARE | MEDICA | [id number] | 12/13/19 | [phone] | | Medica | | | RE | | 07-Pre | 5 | | re | | | PART A | | sent | | | | | | AND B | | | | | | + +--------+ +--------+ + +--------+ | MODA | MODA | [id number] | 11/12/19 | [phone] | [address] | Indemn | | | HEALTH | | 19-Pre | 9 | [address] | ity | | | MDCR | | sent | | [place], | | | | [place] | | | | [place] [address] | | + +--------+ +--------+ + +--------+ [...] | | al/Fam | | 1950 | [phone] | [address] [place], | | | ursula | | | 2 (Home) | [place] [address] | | | | | | [phone] | | | | | | | 2 (Work) | | + +--------+ +--------+ + + Advance Directives Patient has advance care planning documents on file. For more information, please contact:[facility] [place] [address]
--- OUTSIDE RECORDS SUMMARY | ~2019-09-03 | XMS | Encounter Summary ---
Demographics + + + | Address | [address] | | | [place] [address] | + + + | Home Phone | | + + + | Preferred Language | Unknown | + + + | Marital Status | Single | + + + | Uatsdin Affiliation | Unknown | + + + [...] Team Providers + +------+ + | Care Abrasive Grader Helper Name | Role | Phone | + [...] + + | 09/01/ | Office | [facility] | Heather Thomas | Longstanding | | 2019 | Visit | CARDIOLOGY [place] | [address] | persistent atrial | | | | [address] | [place] [address] | fibrillation | | | | [address] | [place] [address] | (Primary Dx); | | | | [place], [place] | [phone] | Encounter for | | | | [address] | | monitoring diuretic | | | | [phone] | | therapy; Essential | | | [...] non -fasting labs to be done at [facility] in 2 weeks I made these changes [...] hyperlipidemia, and dependent pe yaritza edema. His [id number] VASC score is 3( age, HTN, DM) giving him an annual stroke risk of 3.2% and il s HAS BLED score is 4( HTN, [...] noted that h is previous hospitalization at [facility] was from viral gastroenteritis, cirrhosis, mi ld [...] to medications He was last hospitalized at [facility] in May 2019 for weakness and hyponatremia, a nd after that he was moved to [facility] where he has been for approximatel y 3 months for physical and occupational therapy, but reports he will be returning to his [facility] tomorrow. Notes from his hospitalization [...] deconditioned, and was seen and treated by [facility] therapy and Occupational Therapy. He [...] feel improved since he has been at [place], an d remains abstinent from alcohol. His [...] have improved since he has been at [facility]. Denies unexplained weight loss. Appetite is [...] QTC 406 ms tracing personally reviewed by [place] EK05/28/2019:( ER [facility]) Atrial fibrillation with controlled ventricular response, possibl e previous anteroseptal infarct. Rate 69 bpm, QRS 90 ms, QTC 411 ms, tracing personally rev iewed by wa EK06/30/2019: Atrial fibrillation with borderline controlled ventricular response nonspec ific ST abnormality consistent with old septal SC. Rate 98 bpm, QRS 80 ms, QTC 380 ms, trac ing personally reviewed by wa LABS Labs: 05/28/2019:[place] ER: Phosphorus 2.9. INR 0.9. CMP: Sodium 123, potassium 3, chloride 80, CO2 29, BUN 4, creatinine 0.62, GFR >120, glucose 110, magnesium 2.1 total bili 1.4, AST 50, ALT 30, alk phos 132,, troponin T <0.010, albumin 3.3. Thyroid: TSH 3.62. CB C: WBC 6.3, RBC 3.07, hemoglobin 10.4, hematocrit 29.8, platelets 154. Digoxin: 1.39. Labs: 05/29/2019: [facility]: BMP: Sodium 132, potassium 3.7, chloride [...] eris, vital sign and medication record from [facility]. Allergies, current medications.labs Family history, past medical history, past social history, past surgical history. Problem list. YAMILA Bhagat [facility] 09/01/2019 document ed in this encounter [...] [place] | | | | | | [place] [address] | | | | | | [phone] | | | | | | | [...]
--- OUTSIDE RECORDS SUMMARY | ~2019-09-03 | XMS | Encounter Summary ---
Demographics + + + | Address | [address] | | | [place] [address] | + + + | Home Phone [...] Team Providers + +------+ + | Care Drill Hand Name | Role | Phone | [...] Rd | | | | | | [place], [place] | | | | | | [address] | | | +--------+ + + + [...] | | | | | | of [id number] | | | | | | days. He was found to | | | | | | have markedly elevated | | | | | | myoglobin and CPK(9301) | | | | | | levels. [...] Dexter | | | | | | [facility],[place], | | | | | | [place], delivered via | | | | | | final inspector paper on moist gauze | | | | [...] | + + + + + | [facility] | [address] | [place] [address] | | | PATHOLOGY | [address] | | | + + + + + documented in this encounter Visit Diagnoses Not on filedocumented in this encounter
--- OUTSIDE RECORDS SUMMARY | ~2019-09-03 | XMS | Clinical Summary ---
Demographics + + + | Address | [address] | | | [place] [address] | + + + | Home Phone | | + + + | Preferred Language | Unknown | + + + | Marital Status | Single | + + + | Judaism Affiliation | NRP | + + + [...] Team Providers + +------+ + | Care Player Manager Name | Role | Phone | + +------+ + | Dustin Perez MD | PCP | | + +------+ + Source Comments RADHA is fully live on both [facility] Ambulatory and [facility] InPatient.[facility] Allergies Not on File Medications Not on [...] | B | | sent | | [place], [place] | | | | | | | | [address] | | + +--------+ +--------+ + +--------+ | [employer] MEDICARE | MODA | xxxxxxxxx | 11/01/ | [phone] | [address] | [address] | | SUPPLEMENT | MEDICA | | 2015-P | 4 | [id number] | | | | RE | | resent | | [place], | | | | SUPPLE | | | | [place] [address] | | | | MENT | | [...] | | ursula | | | [address] ([place]) | [address] | + +--------+ +--------+ + +"
[~2019-09-03 11:25] MED LIST changes: +IMODIUM A-D2 M2 PO; +LANOXIN125 MCG PO; +MELATONIN1 MG PO; +METOPROLOL TART25 MG PO; +PANTOPRAZOLE SO40 MG PO; +TORSEMIDE10 MG PO; +TYLENOL EXTRA500 MG PO; +ZOFRAN ODT4 MG SL
== END 2019-09-03 15:13 | disposition short-term general hospital (02) ==
LOC: ED 11:25
DX: L97.429 Non-pressure chronic ulcer of left heel and midfoot with unspecified severity (principal); L03.116 Cellulitis of left lower limb; I10 Essential (primary) hypertension; I25.10 Atherosclerotic heart disease of native coronary artery without angina pectoris; Z79.899 Other long term (current) drug therapy; Z79.82 Long term (current) use of aspirin
CPT/HCPCS: 73610; 80053; 85025; 85651; 86140; 99284-25

== ENCOUNTER 2020-05-24 12:32 | Emergency (ER) | payer MEDICARE, OTHER ==
[~2020-05-24] VITALS: Ht 180.3 cm; Wt 93.0 kg
--- OUTSIDE RECORDS SUMMARY | ~2020-05-24 | XMS | Encounter Summary ---
Demographics + + + | Address | [address] | | | [place] [address] | + + + | Home Phone | | + + + | Preferred Language | Unknown | + + + | Marital Status | Single | + + + | Anglican Affiliation | NRP | + + + | Race | White | + + + | Ethnic Group | Not or | + + + Author + + + | Author | [facility] | + + + | Organization | [facility] | + + + | [...] Team Providers + +------+ + | Care Inpatient Services Director Name | Role | Phone | [...] | +--------+ + + + + | 09/06/ | Anesthesia | 6A Intra Op 3181 | Lo Fagan, | | | 2019 | Event | [address] | [address] | | | | | [facility] | [address] | | | | | Hospital Admitting | [place], [place] | | | | | Desk Located on the | [address] | | | | | 9 floor | [phone] | | | | | [place], [place] | | | | | | [address] | | | +--------+ + + + + Anesthesia Record + + + + + | Procedure Name | Responsible | Anesthesia Start | Anesthesia Stop Time | | | Anesthesiologist | Time | | + + + + + | LEFT LEG AND FOOT | Lo Fagan MD | 09/06/19 1115 | 09/06/19 1405 | | INCISION AND | | | | | DRAINAGE, FASCIOTOMY | | | | | CLOSURE (Left Leg) | | | | + + + + + +----+---+ + + | Da | T | Event | Comment | | te | i | | | | | m | | | | | e | | | +----+---+ + + | 10 | 1 | Pt. Check | Prior to anesthesia start, pt. Identified, examined, chart | | /2 | 0 | | reviewed, JAQUELINE held, anesthetic plan made or approved by | | 6/ | 4 | | attending anesthesiologist. NPO status confirmed as appropriate | | 20 | 8 | | for procedure Preoperative evaluation: unchanged | | 19 | | | | +----+---+ + + | | 1 | An Start | | | | 1 | | | | | 1 | | | | | 5 | | | +----+---+ + + | | 1 | Eq Check | Anesthesia machine checked Equipment verified | | | 1 | | | | | 2 | | | | | 6 | | | +----+---+ + + | | 1 | An Start | | | | 1 | Data | | | | 2 | | | | | 6 | | | +----+---+ + + | | 1 | Vitals | Monitors applied Vital signs checked Patient ready for anesthesia | | | 1 | Checked | | | | 3 | | | | | 1 | | | +----+---+ + + | | 1 | ETT | | | | 1 | | | | | 3 | | | | | 6 | | | +----+---+ + + | | 1 | Ready | | | | 1 | | | | | 4 | | | | | 1 | | | +----+---+ + + | | 1 | Abx held | Contraindicated, or not indicated for this procedure, or already | | | 2 | Medical or | receiving antibiotics | | | 0 | Surgical | | | | 0 | Reason | | +----+---+ + + | | 1 | Timeout | | | | 2 | | | | | 0 | | | | | 3 | | | +----+---+ + + | | 1 | Incision | | | | 2 | | | | | 0 | | | | | 5 | | | +----+---+ + + | | 1 | Surgery end | | | | 3 | | | | | 4 | | | | | 7 | | | +----+---+ + + | | 1 | An Extubate | Neuromuscular function Intact. Pharynx suctioned. Patient obeys | | | 3 | | commands. Adequate pulmonary mechanics. | | | 5 | | | | | 3 | | | +----+---+ + + | | 1 | an stop | | | | 3 | data | | | | 5 | | | | | 6 | | | +----+---+ + + | | 1 | PACU Rpt | | | | 4 | Given | | | | 0 | | | | | 5 | | | +----+---+ + + | | 1 | Anesthesia | | | | 4 | End | | | | 0 | | | | | 5 | | | +----+---+ + + | | 1 | Post-Op | | | | 5 | Page | | | | 0 | | | | | 0 | | | +----+---+ + + +------+ | Meds | +------+ + + + | Name | Total | + + + | PHENYLEPHrine INF (25mg/250mL) | 3,119.56 mcg | + + + | vancomycin (VANCOCIN) IV 1,250 mg | 1,250 mg | + + + | lidocaine 2% | 60 mg | + + + | propofol | 100 mg | + + + | fentaNYL | 200 mcg | + + + | rocuronium | 30 mg | + + + | metoprolol | 2 mg | + + + | HYDROmorphone | 0.8 mg | + + + | glycopyrrolate | 0.6 mg | + + + | neostigmine vial | 3 mg | + + + | ondansetron | 4 mg | + + + | PHENYLEPHrine | 100 mcg | + + + | lactated ringers IV | 800 mL | + + + | LR | 500 mL | + + + + + | Name | + + | O2 FR Avance (Total Liters) | + + | N2O FR Avance (l/min) | + + | Air FR Avance (l/min) | + + | Insp Sevo | + + | Et Sevo | + + | Insp Iso | + + | Et Iso | + + | EtN2O % | + + | Insp N2O % | + + + + | No blood administrations on file. | + + +--------+ + + + | Type | Details | Placement | Removal | +--------+ + + + | Wound | 09/03/19; 1907; Yes; Left; foot | 09/03/191907 by | | | | | Gwyn Craw | | +--------+ + + + | Wound | 09/04/19; 0; Left; heel; | 09/04/19 0330 by | | | | Ulceration | Brodie Frances RN | | +--------+ + + + | Incisi | 09/04/19; 1015; Elan. ; Left; | 09/04/19 1015 by | | | on | Medial, Lower; leg | Cary Jones RN | | +--------+ + + + | Incisi | 09/04/19; 1017; Elan. ; Left; | 09/04/19 1017 by | | | on | Lateral, [...] +--------+ + + + | ETT | 09/06/19; 1136 (created via | 09/06/19 1136 by | 09/06/19 1353 by | | | procedure documentation); 7.5; | Rolanda Gerber, | Rolanda Gerber, | | | Oral; Cuffed; 09/06/19; 1353 | QUALITY COMPLIANCE CONSULTANT | QUALITY COMPLIANCE CONSULTANT | +--------+ + + + | Periph | 09/06/19; 1141; Sharif Gerber QUALITY COMPLIANCE CONSULTANT; | 09/06/19 1141 by | 09/08/19 1256 by | | eral | Right; Hand; 18 g; Positive; | Rolanda Gerber, | Blair Brewer RN | | IV | 09/08/19; 1256; Catheter damage, | QUALITY COMPLIANCE CONSULTANT | | | | Site problems, No longer present | | | +--------+ + + + [...] physical, mental, or emotional | No | 09/05/2019 | | condition, do you have serious difficulty | | | | doing errands alone such as visiting the | | | | doctor? | | | + + + + + + + + | Cognitive Status | Response | Date of Assessment | + + + + | Because of a physical, mental, or emotional | No | 09/05/2019 | | condition, do you have serious [...] + | ANE ETT | Routin | 09/06/2019 | | Results for this | | | e | 12:09 PM | | procedure are in the | | | | PDT | | results section. | + +--------+ + + + documented in this encounter Results ETT (09/06/2019 12:09 PM PDT) + + + | Narrative | Performed At | + + + | Rolanda Gerber CRNA 09/06/2019 12:10 PM [employer] | | | - ETT Time of Placement: 09/06/2019 11:36 AM Intubation Reason: For | | | surgical procedure Positioning: Supine Location Performed:OR | | | OXYGENATION Patient was preoxygenated Grade: Grade 2 - Ventilated by | | | mask with oral airway/adjuvant Induction:Routine, without Cricoid | | | Pressure INTUBATION ATTEMPT 1 Blade Type: Romero Blade #: 2 | | | Laryngoscopic View: Grade II Surgical Airway: no Surgical Airway | | | ETT DETAILS ETT Type:Standard, Hi-Lo Cuffed Intubation Type: Oral | | | Cuff Status: Cuffed Size: 7.5 ETT secured with adhesive tape | | | Depth at Lip: 23 cm Airway Leak: No CONFIRMATION Number of | | | Attempts: 1 Atraumatic placement Positive for EtCO2:Waveform | | | capnography Breath Sounds: Bilateral and equal NARRATIVE | | | Attending was physically present for the critical portions of the | | | procedure as described in the procedure note Attending/Authorizing | | | Provider: Lo Fagan MD Performing Provider: Rolanda Gerber | | | CARROLL Procedure Comments: Grade 3 view, 2-3 with BURP, consider | | | using glidescope with next DL | | + + + documented in this encounter Visit Diagnoses Not on filedocumented in this encounter Administered Medications + +--------+ +--------+------+------+ | Medication Order | MAR | Action | Dose | Rate | Site | | | Action | Date | | | | + +--------+ +--------+------+------+ | fentaNYL (SUBLIMAZE) injection | Given | 09/06/20 | 50 mcg | | | | INTRAPROCEDURE PRN, Starting Sat | | 19 1:44 | | | | | 09/06/19 at 1136, Until Sat | | PM PDT | | | | | 09/06/19 at 1356 | | | | | | + +--------+ +--------+------+------+ +-------+ +---------+---+---+ | Given | 09/06/20 | 50 mcg | | | | | 19 12:39 | | | | | | PM PDT | | | | +-------+ +---------+---+---+ | Given | 09/06/20 | 100 mcg | | | | | 19 11:36 | | | | | | AM PDT | | | | +-------+ +---------+---+---+ +---+---+ | | | +---+---+ + +-------+ +--------+---+---+ | glycopyrrolate (PF) (VIKTORIYA) | Given | 09/06/20 | 0.6 mg | | | | injection soln INTRAPROCEDURE | | 19 12:55 | | | | | PRN, Starting 09/06/19 at | | PM PDT | | | | | 1255, Until 09/06/19 at 1356 | | | | | | + +-------+ +--------+---+---+ +---+---+ | | | +---+---+ + +-------+ +--------+---+---+ | HYDROmorphone (DILAUDID) | Given | 09/06/20 | 0.4 mg | | | | injection INTRAPROCEDURE PRN, | | 19 1:44 | | | | | Starting 09/06/19 at 1241, | | PM PDT | | | | | Until 09/06/19 at 1356 | | | | | | + +-------+ +--------+---+---+ +-------+ +--------+---+---+ | Given | 09/06/20 | 0.4 mg | | | | | 19 12:41 | | | | | | PM PDT | | | | +-------+ +--------+---+---+ +---+---+ | | | +---+---+ + + + +---+---+---+ | lactated ringers IV 500 mL, | given by | 09/06/20 | | | | | intravenous, POSTPROCEDURE PRN, 1 | | 19 12:56 | | | | | dose, Starting 09/06/19 at | anesthes | PM PDT | | | | | 1105, Until 09/06/19 at 1115, | iology | | | | | | systolic blood pressure less | | | | | | | than 90 mmHg. 1st line | | | | | | + + + +---+---+---+ +---------+ +---+---+---+ | New Bag | 09/06/20 | | | | | | 19 11:15 | | | | | | AM PDT | | | | +---------+ +---+---+---+ +---+---+ | | | +---+---+ + + + +---+---+---+ | lactated ringers IV | given by | 09/06/20 | | | | | INTRAPROCEDURE CONTINUOUS PRN, | | 19 12:56 | | | | | Starting 09/06/19 at 1141, | anesthes | PM PDT | | | | | Until 09/06/19 at 1356 | iology | | | | | + + + +---+---+---+ +---------+ +---+---+---+ | New Bag | 09/06/20 | | | | | | 19 11:41 | | | | | | AM PDT | | | | +---------+ +---+---+---+ +---+---+ | | | +---+---+ + +-------+ +-------+---+---+ | lidocaine (XYLOCAINE MPF) 2 % | Given | 09/06/20 | 60 mg | | | | (20 mg/mL) injection | | 19 11:36 | | | | | INTRAPROCEDURE PRN, Starting Sat | | AM PDT | | | | | 09/06/19 at 1136, Until Sat | | | | | | | 09/06/19 at 1356 | | | | | | + +-------+ +-------+---+---+ +---+---+ | | | +---+---+ + +-------+ +------+---+---+ | metoprolol (LOPRESSOR) | Given | 09/06/20 | 2 mg | | | | injection intravenous, | | 19 11:39 | | | | | INTRAPROCEDURE PRN, Starting Sat | | AM PDT | | | | | 09/06/19 at 1139, Until Sat | | | | | | | 09/06/19 at 1356 | | | | | | + +-------+ +------+---+---+ +---+---+ | | | +---+---+ + +-------+ +------+---+---+ | neostigmine (PROSTIGMIN) | Given | 09/06/20 | 3 mg | | | | intravenous, INTRAPROCEDURE PRN, | | 19 12:55 | | | | | Starting 09/06/19 at 1255, | | PM PDT | | | | | Until 09/06/19 at 1356 | | | | | | + +-------+ +------+---+---+ +---+---+ | | | +---+---+ + +-------+ +------+---+---+ | ondansetron (ZOFRAN) injection | Given | 09/06/20 | 4 mg | | | | INTRAPROCEDURE PRN, Starting Sat | | 19 1:17 | | | | | 09/06/19 at 1317, Until Sat | | PM PDT | | | | | 09/06/19 at 1356 | | | | | | + +-------+ +------+---+---+ +---+---+ | | | +---+---+ + +-------+ +---------+---+---+ | PHENYLEPHrine 100 mcg/mL IV | Given | 09/06/20 | 100 mcg | | | | syringe INTRAPROCEDURE PRN, | | 19 1:49 | | | | | Starting 09/06/19 at 1349, | | PM PDT | | | | | Until 09/06/19 at 1356 | | | | | | + +-------+ +---------+---+---+ +---+---+ | | | +---+---+ + + + + +--------+---+ | PHENYLEPHrine 25 mg/250 mL (0.1 | Rate/Dos | 09/06/20 | 0.4 | 22.42 | | | mg/mL) IV infusion (ADC) | e Change | 19 12:49 | mcg/kg/m | mL/hr | | | intravenous, INTRAPROCEDURE | | PM PDT | in | | | | CONTINUOUS PRN, Starting Sat | | | | | | | 09/06/19 at 1202, Until Sat | | | | | | | 09/06/19 at 1356 | | | | | | + + + + +--------+---+ + + + +--------+---+ | Rate/Dose Change | 09/06/20 | 0.2 | 11.21 | | | | 19 12:17 | mcg/kg/m | mL/hr | | | | PM PDT | in | | | + + + +--------+---+ | Rate/Dose Change | 09/06/20 | 0.4 | 22.42 | | | | 19 12:09 | mcg/kg/m | mL/hr | | | | PM PDT | in | | | + + + +--------+---+ +---+---+ | | | +---+---+ + +-------+ +--------+---+---+ | propofol (DIPRIVAN) injection | Given | 09/06/20 | 100 mg | | | | INTRAPROCEDURE PRN, Starting Sat | | 19 11:36 | | | | | 09/06/19 at 1136, Until Sat | | AM PDT | | | | | 09/06/19 at 1356 | | | | | | + +-------+ +--------+---+---+ +---+---+ | | | +---+---+ + +-------+ +-------+---+---+ | rocuronium injection | Given | 09/06/20 | 30 mg | | | | INTRAPROCEDURE PRN, Starting Sat | | 19 11:36 | | | | | 09/06/19 at 1136, Until Sat | | AM PDT | | | | | 09/06/19 at 1356 | | | | | | + +-------+ +-------+---+---+ +---+---+ | | | +---+---+ + +---------+ + +---+---+ | vancomycin (VANCOCIN) IV 1,250 | New Bag | 09/07/20 | 1,250 mg | | | | mg 1,250 mg, intravenous, EVERY | | 19 11:42 | | | | | 12 HOURS, First dose on Shania | | AM PDT | | | | | 09/04/19 at 2200, Until | | | | | | | Discontinued | | | | | | + +---------+ + +---+---+ +---------+ + +---+---+ | New Bag | 09/07/20 | 1,250 mg | | | | | 19 12:00 | | | | | | AM PDT | | | | +---------+ + +---+---+ | Given | 09/06/20 | 1,250 mg | | | | | 19 12:00 | | | | | | PM PDT | | | | +---------+ + +---+---+ +---+---+ | | | +---+---+ documented in this encounter"
--- OUTSIDE RECORDS SUMMARY | ~2020-05-24 | XMS | Encounter Summary ---
Demographics + + + | Address | [address] | | | [place] [address] | + + + | Home Phone | | + + + | Preferred Language | Unknown | + + + | Marital Status | Single | + + + | Hoahaoism Affiliation | Unknown | + + + | Race | Unknown | + + + | Ethnic Group | Unknown | + + + Author + + + | Author | [facility] | | | and [place] | + + + | Organization | [facility] | | | and [place] | + + + | Address | Unknown | + + + | Phone | Unavailable | + + + Support + + +---------+ + | Name | Relationship | Address | Phone | + + +---------+ + | Josué An | ECON | Unknown | | + + +---------+ + Care Team Providers + +------+ + | Care Pool Attendant Name | Role | Phone | + +------+ + | Dustin Perez MD | PCP | | + +------+ + Reason for Visit + + + | Reason | Comments | + + + | Follow-up | over due 6 months | + + + Encounter Details +--------+---------+ + + + | Date | Type | Department | Care Team | Description | +--------+---------+ + + + | 06/30/ | Office | [facility] | Heather Thomas | Persistent atrial | | 2019 | Visit | [facility]ARDIOLOG[facility] [place] | [address] | fibrillation (HCC) | | | | [address] | ASHLYN MENDEZ F | (Primary Dx); | | | | [address] | [place] [address] | Essential | | | | [place], [place] | [phone] | hypertension; | | | | [address] | | Hypotensive episode; | | | | [phone] | | Pedal edema; | | | | | | Alcohol abuse; | | | | | | Cirrhosis, Laennec's | | | | | | (HCC); | | | | | | Hyponatremia; | | | | | | Hypokalemia; | | | | | | Encounter for | | | | | | monitoring digoxin | | | | | | therapy | +--------+---------+ + + + Social History + + + +--------+ + | Tobacco Use | Types | Packs/Day | Years | Date | | | | | Used | | + + + +--------+ + | Former Smoker | Cigarettes | 0.5 | 6 | 06/30/1972 - | | | | | | 06/30/1978 | + + + +--------+ + + +------+---+ + | Smokeless Tobacco: | Chew | | Quit: | | Former User | | | 06/30/19 | | | | | 79 | + +------+---+ + + + +---------+ + | Alcohol Use | Drinks/Week | oz/Week | Comments | + + +---------+ + | Not Currently | | | Alcoholic | | | | | Drinks/day: states | | | | | hasnt drank in 2.5 | | | | | months | + + +---------+ + + + + | Sex Assigned at | Date Recorded | | | | + + + | Not on file | | + + + documented as of this encounter Last Filed Vital Signs + + + + + | Vital Sign | Reading | Time Taken | Comments | + + + + + | Blood Pressure | 126/74 | 06/30/2019 2:13 PM | | | | | PDT | | + + + + + | Pulse | 98 | 06/30/2019 2:13 PM | | | | | PDT | | + + + + + | Temperature | - | - | | + + + + + | Respiratory Rate | - | - | | + + + + + | Oxygen Saturation | 100% | 06/30/2019 2:13 PM | | | | | PDT | | + + + + + | Inhaled Oxygen | - | - | | | Concentration | | | | + + + + + | Weight | 82.3 kg (181 lb 6.4 | 06/30/2019 2:13 PM | | | | oz) | PDT | | + + + + + | Height | 180.3 cm (5' 11") | 06/30/2019 2:13 PM | | | | | PDT | | + + + + + | Body Mass Index | 25.3 | 06/30/2019 2:13 PM | | | | | PDT | | + + + + + documented in this encounter Patient Instructions Patient Instructions Heather Thomas FNP - 06/30/2019 2:00 PM PDTI have ordered you Non fasting labs to be done by [facility] in the next month I made No changes to medications , but suggested decreasing melatonin to 3 mg See me back in 2 months documented in this encounter Progress Notes Heather Thomas FNP - 06/30/2019 2:00 PM PDTFormatting of this note might be differe nt from the original. Date of visit: 07/01/2019 Primary Care Physician: Dustin Perez MD CHIEF COMPLAINT: Chief Complaint Patient presents with Follow-up over due 6 months HISTORY OF PRESENT ILLNESS: Mr.Dale An is a 69 old man who is here today for 6-month follow-up. He is a patient of and last seen by him September 2018.He is accompanied by joanna Aguiar Today, I reviewed all previous documentation available to me in electronic medical [address] and from external sources. He has a history of persistent atrial fibrillation mostly well controlled, alcoholism , hy ponatremia and hypokalemia which limits use of diuretics ,cirrhosis ,ascites, esophageal eric ices , history of syncope secondary to antihypertensives, frequent falls, peripheral neuropa thy to his hands and feet, hypertension though more recently has developed hypotension treat ed with midodrine, hyperlipidemia, and dependent pedal edema. His ICL2OQ2 VASC score is 3( age, HTN, DM) giving him an annual stroke risk of 3.2% and ny s HAS BLED score is 4( HTN, liver function, age, ETOH) which gives him an 8.7% risk of major bleed, Dr. Malin had previously indicated he was not a candidate for anticoagulation, but torre rainer suggested he continue on 325 mg of aspirin daily which was reduced his risk of stroke to 2 .6 %/year. When last seen by Dr. Malin, he noted from a cardiovascular standpoint he was fairly sta ble and his edema was better, and he had made no changes to his medication, and noted that h is previous hospitalization at [facility] was from viral gastroenteritis, cirrhosis, mi ld ascites, chronic right pleural effusion, A. fib with RVR which was treated with bolus of digoxin as his level had been subtherapeutic and he was treated medically for his multiple g astrointestinal issues His current and previous testing and procedures are detailed below . Since he was last seen, he was seen in the emergency room and then hospitalized at [facility] in May for weakness and hyponatremia, and after that he was moved to [facility] [place] he has been for the past 4-5 weeks. Notes from his hospitalization document that he was admitted on May 28 and discharged on June 02 for hyponatremia secondary to dehydration, acute urinary retention, and oliguria se condary to dehydration. His sodium was 123, and other labs are detailed below. He was hydr ated with IV fluids until sodium levels normalized and his oliguria also resolved with IV fl uid hydration. He was found to be extremely deconditioned, and was seen and treated by phys ical therapy and Occupational Therapy. It was noted that he would need ongoing rehabilitation after his hospitalization. He w as also noted to have recurrent urinary retention, and he was treated with a Beebe catheter and referred to outpatient neurology for further evaluation and treatment. They stopped his torsemide due to dehydration and hyponatremia, and also noted that his blood pressure was n ormal without midodrine. He reports today that he has felt much improved since he has been at [place], does r emain abstinent from alcohol. His previous weakness and dizziness have resolved, and he de nies any chest pain, palpitations, but still has mild dyspnea with exertion. He reports he has ongoing chronic lower extremity edema to his left leg which had previous injuries and kenyon rgeries, and it is noticeably more swollen than his right leg, which has only mild edema. He also has a nonhealing wound to his left heel is being treated with daily wound care an d doxycycline. His blood pressure checked daily x 2 weeks and consistently above 120 systo lic. He is a former smoker who quit smoking in 1977 with 3-pack-year history, has remained absti nent from alcohol but reports that her drinking in 1965, and has consumed at least 6 beers p er day daily until he quit last month. Denies any use of recreational or illicit drugs and he drinks 2 servings of coffee daily. His ambulation is limited by his lower extremity vikki a, and wound to his left heel, general overall deconditioning, but has improved with physica l and Occupational Therapy. REVIEW OF SYSTEMS: Negative except for pertinent items noted in HPI. Constitutional: Reports weakness and fatigue which have improved since he has been at [facility]. Denies unexplained weight loss. Appetite is good. Denies night sweats fevers or chills HENT: Denies nosebleeds. Denies hearing problems. Denies dysphagia Eyes: Denies visual disturbance or double vision. Respiratory/Sleep:: Denies cough and shortness of breath. Denies hemoptysis or excessive s putum production. Denies snoring, orthopnea, PND. Cardiovascular: Denies chest pain, palpitations and leg swelling. Denies history of rheuma tic fever. Denies claudication . Gastrointestinal: Alcoholic cirrhosis, esophageal varices, poor nutrition, chronic diarrhea secondary to lactulose now stopped, previous benign tumor removed with hernia surgery . DARRYL D. Denies nausea, vomiting, abdominal pain and blood in stool. Genitourinary: He has history of acute renal failure several years ago none since. Denies hematuria. Musculoskeletal:H/o Rhabdomyolysis with ARF, h/o Gout. Denies myalgias. Skin: Denies color change. Ongoing problems with skin excoriation to his lower extremitie s with edema, nonhealing left heel ulcer, skin friable and dry. Neurological:h/o Syncope (5 x in short succession, c. 2012, iatrogenic orthostatic hypotens ion due to antihypertensive medications). He has fallen several times, his balance is poor. Peripheral Neuropathy of his hands and feet with pain/numbness Denies history of stroke/T ransient ischemic attack.Denies history of seizures. Hematological/Oncology . Hx anemia, no prior blood transfusion bruises easily. Denies bleed ing Denies history of cancer Endocrine:history of pre-Diabetes Denies thyroid disease. Denies excessive thirst or hunge r. Psychiatric/Behavioral: Chronic Alcohol Abuse,quit 05/2019. mild Depression, anxiety . Vaccines: Current on flu vaccine?. Current on pneumonia vaccine?. Habits/Social : history of smoking, quit 1977 smoked half a pack daily x 6 years.. Denies current EtOH use: started drinking 1966, 6-8 beers per day until 05/2019. Drinks 2 servings o f caffeine daily . Denies recreational or illicit drug use. . Lives in [facility] 05/2019 Outpatient Medications Prior to Visit Medication Sig Dispense Refill aspirin 325 mg tablet Take 325 mg by mouth daily with breakfast. (Patient not taking: R eported on 06/30/2019) aspirin 81 mg EC tablet Take 81 mg by mouth Daily. bisacodyl (DULCOLAX) [address] 10 mg rectally Daily as needed for Constip ation. cyanocobalamin (VITAMIN B-12) 100 MCG tablet Take 100 mcg by mouth Daily. digoxin (LANOXIN) 125 mcg tablet Take 125 mcg by mouth daily. doxycycline (MONODOX) 100 mg capsule Take 100 mg by mouth 2 times daily. gabapentin (NEURONTIN) 600 MG tablet Take 600 mg by mouth nightly. (Patient taking diff erently: Take 600 mg by mouth 3 times daily.) lactulose 10 g/15 mL solution Take 10 mLs by mouth 3 (three) times daily. (Patient not taking: Reported on 06/30/2019) loperamide (IMODIUM) 2 mg capsule Take 2 mg by mouth as needed for Diarrhea. magnesium hydroxide (MILK OF MAGNESIA) 400 mg/5 mL suspension Take 30 mLs by mouth Margarita y as needed for Constipation. Melatonin 10 MG TABS Take 1 tablet by mouth nightly. Multiple Vitamins-Minerals (MENS MULTIVITAMIN PLUS PO) Take 1 tablet by mouth daily. potassium chloride (KLOR-CON M20) 20 mEq ER tablet Take 20 mEq by mouth 2 (two) times d aily with meals. (Patient not taking: Reported on 06/30/2019) sodium phosphate (FLEET) enema Place 133 mLs rectally Daily as needed for Constipation. tamsulosin (FLOMAX) 0.4 mg CAPS Take 0.4 mg by mouth nightly. thiamine (VITAMIN B-1) 100 mg tablet Take 100 mg by mouth Daily. No facility-administered medications prior to visit. PHYSICAL EXAM: Wt Readings from Last 3 Encounters: 06/30/19 82.3 kg (181 lb 6.4 oz) 11/20/17 95.1 kg (209 lb 11.2 oz) Temp Readings from Last 3 Encounters: No data found for Temp BP Readings from Last 3 Encounters: 06/30/19 126/74 11/20/17 112/56 Pulse Readings from Last 3 Encounters: 06/30/19 98 11/20/17 95 GENERAL: Fatigued looking older man, in no distress. Appears approximately stated age. HEENT: Normocephalic, atraumatic. EYES: PERRL, EOM normal. MOUTH: Oral mucosae moist, dentition poor, no lesions noted NECK: No JVD, lymphadenopathy, thyromegaly, bruits. Carotid pulses are 2+ bilaterally LUNGS/CHEST: Clear bilaterally, with no rales, rhonchi or wheezing noted, respirations unl abored HEART: Nondisplaced PMI, irregularly irregular rhythm with controlled rate, S1, S2 normal. No murmurs, rubs or gallops noted. ABDOMEN: Mildly distended. Soft, nontender, palpable liver edge. No masses or bruits. Bowen wel sounds are normal in all 4 quadrants. The abdominal aortic pulsation is not palpable. EXTREMITIES: Left lower leg 2 + edema, right leg trace, discolored and dry scaling skin edema. Radial pulses 2+ bilaterally. Femoral pulses are 1 + bilaterally without bruits. DP and PT pulses are trace bilaterally. No clubbing. SKIN: Warm and dry, capillary refill is normal, no lesions. NEUROLOGIC: Awake, alert and oriented x 3. No focal motor or sensory deficits. PSYCHIATRIC: Appropriate, affect appears normal DATA: Blood tests: No results found for: WBC, RBC, HGB, HCT, PLT No results found for: NA, K, CL, CO2, ANIONGAP, GLUF, BUN, CREATININE, BCR, EGFR No results found for: CHOL, TRIG, LDL, LDL, GLUF No results found for: BNP, TSH, CRP No results found for: TOTEPI CARDIAC PROCEDURES/IMAGING-none VASCULAR TESTING AND PROCEDURES WILDER (04/13/10): reported normal ECHO Echo : 08/27/2018: [facility]: Atrial fibrillation. Technically adequate study. EF 6 5-70%. LV normal in size with mild LVH, no regional wall motion abnormalities. Indetermina te assessment of diastolic function secondary to atrial fib. RV normal in size and function . Both atria mildly enlarged stable. Valve trileaflet, noncoronary cusp moderately calcifi ed and immobile with normal excursion of left and right coronary cusp no AI. No significant aortic stenosis, with peak/mean pressure gradient of 9.92mmHg / 5.88mmHg, not significantly changed from 11/5 mm Hg, as measured on the previous study. The aortic valve area by VTI i s 1.5cm, 1.56 cm by the continuity equation, although this is reduced from 2.12 cm, as calculated on the prior study, with no change in the maximum velocity across th e aortic valve, which is 1.57m/s, and no change in the LVOT diameter measurement. The only d ifference is change in LVOT velocity from 0.7 m/s previously to 0.6 m/s on the current stud y. Mitral valve normal, trace MR, no MVP. Tricuspid valve normal, trace TR. No pulmonary hypertension, RVSP 24.8+ CVP. No pericardial effusion. IVC not well-visualized. Aortic ro ot, ascending aorta, and aortic arch are normal no ASD, no VSD Echo (05/01/17): poor subcostal views, EF 60-65%, normal RV, mild LAE, mild MR, TR EKG/EVENT MONITOR 24-hour Holter (12/12/17): atrial fibrillation was present throughout the entire recording, but a relatively well-controlled VR. There were rare PVCs, and runs of AIVR. EK11/20/2017: Atrial fibrillation controlled ventricular response, left axis deviation, ol d septal infarct. Rate 85 bpm, QRS 84 ms, QTC 406 ms tracing personally reviewed by me EK05/28/2019:( [facility]) Atrial fibrillation with controlled ventricular response, possibl e previous anteroseptal infarct. Rate 69 bpm, QRS 90 ms, QTC 411 ms, tracing personally rev iewed by wa EK06/30/2019: Atrial fibrillation with borderline controlled ventricular response nonspec ific ST abnormality consistent with old septal FL. Rate 98 bpm, QRS 80 ms, QTC 380 ms, trac ing personally reviewed by wa LABS Labs: 05/28/2019:[facility]: Phosphorus 2.9. INR 0.9. CMP: Sodium 123, potassium 3, chloride 80, CO2 29, BUN 4, creatinine 0.62, GFR >120, glucose 110, magnesium 2.1 total bili 1.4, AST 50, ALT 30, alk phos 132,, troponin T <0.010, albumin 3.3. Thyroid: TSH 3.62. CB C: WBC 6.3, RBC 3.07, hemoglobin 10.4, hematocrit 29.8, platelets 154. Digoxin: 1.39. Labs: 05/29/2019: [facility]: BMP: Sodium 132, potassium 3.7, chloride 92, CO2 35, glu cose 104, BUN 4, creatinine 0.7, GFR 112. CBC: WBC 4.7, RBC 2.82, hemoglobin 9.7, hematocri t 27.7, platelets 149. Labs: 05/30/2019: [facility]: Phosphorus 2.1. BMP: Sodium 134, potassium 3.4, chloride 93, CO2 34, glucose 114, BUN 7, creatinine 0.82, GFR 93. Magnesium 2. CBC: WBC 4.4, RBC 3 .12, hemoglobin 10.9, hematocrit 30.8 ASSESSMENT & PLAN: He was here today with rental boats caretaker from [place] as overdue for 6-month follow-up. He has problems as detailed below. Overall he seems quite stable, with previous problems with hypotension and A. fib with RVR resolved on current medications. He reports he has improved greatly since he has been at [facility] for the last 4-5 weeks, and he has remained abstinent from alcohol. EKG today shows atrial fibrillation with mostly controlled ventricular response. I made no changes to cardiac medications today, and he should continue aspirin 81 mg daily which was reduced for ongoing GI problems, but should be 325 mg daily for stroke preve ntion for A. fib with RVR, digoxin 125 mcg daily. He Is not a candidate for anticoagulation due to his history of falls, as well as liver di sease as discussed in HPI. I have ordered him an updated CMP and digoxin level for further evaluation now that he h as had more consistent care, and has remained abstinent from alcohol, and I will see him katie k in approximately 2 months 1. Persistent atrial fibrillation (HCC) 2. Essential hypertension 3. Hypotensive episode 4. Pedal edema 5. Alcohol abuse 6. Cirrhosis, Laennec's (HCC) 7. Hyponatremia 8. Hypokalemia 9. Encounter for monitoring digoxin therapy Orders Placed This Encounter Procedures Comprehensive Metabolic Panel Digoxin Level ECG 12 lead The following portions of the patient's history were personally reviewed by me and updated as appropriate: EKG tracings, other specialty provider and PCP notes,any Hospital admission and discharge summaries, any ER records , current and previous cardiac testing and procedure reports and d eris, vital sign and medication record from [facility]. Allergies, current medications.labs Family history, past medical history, past social history, past surgical history. Problem list. YAMILA Bhagat [facility] Cardiology 07/01/2019 docume nted in this encounter Plan of Treatment + +------+--------+ + + | Name | Type | Priori | Associated Diagnoses | Order Schedule | | | | ty | | | + +------+--------+ + + | Comprehensive | 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 | Pedal edema | Expected: | | Metabolic Panel | | e | Hyponatremia | 06/30/2019, Expires: | | | | | Hypokalemia | 06/30/2020 | + +------+--------+ + + | Digoxin Level | 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 | Encounter for | Expected: | | | | e | monitoring digoxin | 06/30/2019, Expires: | | | | | therapy | 06/30/2020 | + +------+--------+ + + documented as of this encounter Procedures + +--------+ + + + | Procedure Name | Priori | Date/Time | Associated Diagnosis | Comments | | | ty | | | | + +--------+ + + + | ECG 12 LEAD | Routin | 06/30/2019 | Persistent atrial | Results for this | | | e | 2:18 PM | fibrillation (HCC) | procedure are in the | | | | PDT | Essential | results section. | | | | | hypertension | | | | | | Hypotensive episode | | | | | | Pedal edema | | | | | | Alcohol abuse | | | | | | Cirrhosis, Eulogio's | | | | | | (HCC) Hyponatremia | | | | | | Hypokalemia | | + +--------+ + + + documented in this encounter Results ECG 12 lead (06/30/2019 2:18 PM PDT) + + + + + + | Component | Value | Ref Range | Performed | Pathologist | | | | | At | Signature | + + + + + + | VENTRICULAR | 98 | BPM | [facility] | | | RATE EKG | | | | | + + + + + + | ATRIAL RATE | 122 | BPM | [facility] | | + + + + + + | QRS | 80 | ms | [facility] | | | DURATION | | | | | + + + + + + | Q-T | 298 | ms | [facility] | | | INTERVAL | | | | | + + + + + + | Q-T | 380 | ms | [facility] | | | INTERVAL | | | | | | (CORRECTED) | | | | | + + + + + + | QRS AXIS | -33 | degrees | [facility] | | + + + + + + | T AXIS | 47 | degrees | [facility] | | + + + + + + | INTERPRETAT | Please refer to | | [facility] | | | ION TEXT | Providers office visit | | | | | | note for Providers | | | | | | Interpretation.Confirmed | | | | | | by [facility] Read Only, | | | | | | [facility] [place] ([id number]), | | | | | | continuity editor Moses Webster | | | | | | ([id number]) on 06/30/2019 | | | | | | 2:25:41 PM | | | | + + + + + + + + | Specimen | + + | | + + + + + | Narrative | Performed At | + + + | | | + + + + +---------+ + + | Performing | Address | City/State/Zipcode | Phone Number | | Organization | | | | + +---------+ + + | [facility] | | | | + +---------+ + + documented in this encounter Visit Diagnoses + + | Diagnosis | + + | Persistent atrial fibrillation (HCC) - Primary Atrial fibrillation | + + | Essential hypertension Unspecified essential hypertension | + + | Hypotensive episode Hypotension, unspecified | + + | Pedal edema Edema | + + | Alcohol abuse Alcohol abuse, unspecified | + + | Cirrhosis, Laennec's (HCC) Alcoholic cirrhosis of liver | + + | Hyponatremia Hyposmolality and/or hyponatremia | + + | Hypokalemia Hypopotassemia | + + | Encounter for monitoring digoxin therapy Encounter for therapeutic drug monitoring | + + documented in this encounter
--- OUTSIDE RECORDS SUMMARY | ~2020-05-24 | XMS | Encounter Summary ---
Demographics + + + | Address | [address] | | | [place] [address] | + + + | Home Phone | | + + + | Preferred Language | Unknown | + + + | Marital Status | Single | + + + | Adventism Affiliation | Unknown | + + + | Race | Unknown | + + + | Ethnic Group | Unknown | + + + Author + + + | Author | [facility] | | | and [place] | + + + | Organization | [facility] | | | and [...] Team Providers + +------+ + | Care Abstract Writer Name | Role | Phone | + +------+ + | Dustin Perez MD | PCP | | + +------+ + Reason for Visit +---------+ + | Reason | Comments | +---------+ + | Results | [facility]--BUN+Creatinie, Vancomycin | +---------+ + Encounter Details +--------+ + + + + | Date | Type | Department | Care Team | Description | +--------+ + + + + | 10/13/ | Documentati | [facility] | Scotty Donovan DO | Results | | 2019 | on | INFECTIOUS DISEASE | [address] | ([facility]BUN+Crea | | | | [address] | [place] [address] | Ignacio mcguire) | | | | [place], [place] | [phone] | | | | | [address] | | | | | | [phone] | | | +--------+ + + + [...] | + +--------+ + + + | GLADIS GUPTA | Routin | 10/10/2019 | | Results for this | | (NON-ORD) | e | | | procedure are in the | | | | | | results section. | + +--------+ + + + | ANDREW DINH | Routin | 10/10/2019 | | Results for this | | | e | | | procedure are in the | | | | | | results section. | + +--------+ + + + documented in this encounter Results Vancomycin, Trough (10/10/2019) + +-------+ + + + | Component | Value | Ref Range | Performed | Pathologist | | | | | At | Signature | + +-------+ + + + | Vancomycin | 10.2 | ug/mL | REFERENCE | | | Trough | | | LAB | | | | | | [facility] | | + +-------+ + + + + + | Specimen | + + | Blood | + + + + + + + | Performing | Address | City/State/Zipcode | Phone Number | | Organization | | | | + + + + + | REFERENCE LAB | [address] | [place] | [phone] | | [facility] | | [id number] | | + + + + + BUN + Creatinine (10/10/2019) + +-------+ + + + | Component | Value | Ref Range | Performed | Pathologist | | | | | At | Signature | + +-------+ + + + | BUN | 23 | | REFERENCE | | | | | | LAB | | | | | | [facility] | | + +-------+ + + + | Creatinine | 1.21 | | REFERENCE | | | | | | LAB | | | | | | [facility] | | + +-------+ + + + | GFR | 59 | | REFERENCE | | | ESTIMATE | | | LAB | | | (REF) | | | [facility] | | + +-------+ + + + | BUN/Creatin | 19.0 | | REFERENCE | | | ine Ratio | | | LAB | | | | | | [facility] | | + +-------+ + + + + + | Specimen | + + | Blood | + + + + + + + | Performing | Address | City/State/Zipcode | Phone Number | | Organization | | | | + + + + + | REFERENCE LAB | [address] | [place] | [phone] | | [facility] | | [address] | | + + + + + documented in this encounter Visit Diagnoses Not on filedocumented in this encounter"
--- OUTSIDE RECORDS SUMMARY | ~2020-05-24 | XMS | Encounter Summary ---
Demographics + + + | Address | [address] | | | [place] [address] | + + + | Home Phone | | + + + | Preferred Language | Unknown | + + + | Marital Status | Single | + + + | Sikhism Affiliation | Unknown | + + + | Race | Unknown | + + + | Ethnic Group | Unknown | + + + Author + + + | Author | [facility] | | | and [place] | + + + | Organization | [facility] | | | and [...] Team Providers + +------+ + | Care Novelty Balloon Assembler And Packer Name | Role | Phone | + +------+ + | Dustin Perez MD | PCP | | + +------+ + Reason for Visit +--------+ + | Reason | Comments | +--------+ + | Other | Labs from [facility] 10/06/2019 (CBC,CMP,ESR,CRP,VANCO | | | TROUGH).. | +--------+ + Encounter Details +--------+ + + + + | Date | Type | Department | Care Team | Description | +--------+ + + + + | 10/08/ | Documentati | [facility] | Savannah Patel, | Other (Labs from | | 2019 | on | INFECTIOUS DISEASE | Parts Runner | [facility] | | | | [address] | | 10/06/2019 | | | | [place], [place] | | (CBC,CMP,ESR,CRP,VAN | | | | [id number] | | CO TROUGH)..) | | | | [phone] | | | +--------+ + + + [...] + documented as of this encounter Progress Savannah Seo Parts Runner - 10/08/2019 3:36 PM PSTLabs from [facility] (CBC,CMP,ESR,CRP,VANCO TROUGH).. RECEIVED: 10/08/2019 Labs were abstracted into [employer] and sent to scan. Ermelinda CMAElectronclaudette signed by Savannah Patel Parts Runner at 10/08/2019 3:51 PM PS Tdocumented in this encounter Plan of Treatment Not on filedocumented as of this encounter Procedures + +--------+ + + + | Procedure Name | Priori | Date/Time | Associated Diagnosis | Comments | | | ty | | | | + +--------+ + + + | COMPREHENSIVE | Routin | 10/06/2019 | | Results for this | | METABOLIC PANEL | e | 9:36 PM | | procedure are in the | | | | PST | | results section. | + +--------+ + + + | SEDIMENTATION RATE | Routin | 10/06/2019 | | Results for this | | | e | 9:35 PM | | procedure are in the | | | | PST | | results section. | + +--------+ + + + | C-REACTIVE PROTEIN | Routin | 10/06/2019 | | Results for this | | | e | 9:35 PM | | procedure are in the | | | | PST | | results section. | + +--------+ + + + | VANCOMYCIN, TROUGH | Routin | 10/06/2019 | | Results for this | | | e | 9:35 PM | | procedure are in the | | | | PST | | results section. | + +--------+ + + + | CBC W/AUTO | Routin | 09/05/2019 | | Results for this | | DIFFERENTIAL | e | 9:35 PM | | procedure are in the | | | | PDT | | results section. | + +--------+ + + + documented in this encounter Results Comprehensive Metabolic Panel (10/06/2019 9:36 PM PST) + + + + + + | Component | Value | Ref Range | Performed | Pathologist | | | | | At | Signature | + + + + + + | Na | 137 | 132 - 143 | REFERENCE | | | | | mmol/L | LAB | | | | | | [facility] | | | | | | [facility] | | + + + + + + | K | 4.1 | 3.6 - 5.1 | REFERENCE | | | | | mmol/L | LAB | | | | | | [facility] | | | | | | [facility] | | + + + + + + | Cl | 103 | 95 - 112 mmol/L | REFERENCE | | | | | | LAB | | | | | | [facility] | | | | | | [facility] | | + + + + + + | CO2 | 26 | 19 - 31 mmol/L | REFERENCE | | | | | | LAB | | | | | | [facility] | | | | | | [facility] | | + + + + + + | Anion Gap | 12 | 7 - 21 mmol/L | REFERENCE | | | | | | LAB | | | | | | [facility] | | | | | | [facility] | | + + + + + + | Glucose | 122 (A) | 70 - 100 mg/dL | REFERENCE | | | | | | LAB | | | | | | [facility] | | | | | | [facility] | | + + + + + + | BUN | 25 (A) | 6 - 23 mg/dL | REFERENCE | | | | | | LAB | | | | | | [facility] | | | | | | [facility] | | + + + + + + | Creatinine | 1.27 (A) | 0.70 - 1.25 | REFERENCE | | | | | | LAB | | | | | | [facility] | | | | | | [facility] | | + + + + + + | GFR | 56 | | REFERENCE | | | ESTIMATE | | | LAB | | | (REF) | | | [facility] | | | | | | [facility] | | + + + + + + | BUN/Creatin | 19.7 | 6.0 - 28.6 | REFERENCE | | | ine Ratio | | | LAB | | | | | | [facility] | | | | | | BKR | | + + + + + + | Calcium | 9.0 | 8.5 - 10.3 | REFERENCE | | | | | | LAB | | | | | | [facility] | | | | | | [facility]KR | | + + + + + + | AST | 11 (A) | 13 - 39 U/L | REFERENCE | | | | | | LAB | | | | | | [facility] | | | | | | [facility]KR | | + + + + + + | ALT | 5 (A) | 7 - 52 U/L | REFERENCE | | | | | | LAB | | | | | | [facility] | | | | | | [facility]KR | | + + + + + + | Alkaline | 85 | 31 - 120 U/L | REFERENCE | | | Phosphatase | | | LAB | | | | | | [facility] | | | | | | [facility]KR | | + + + + + + | Bilirubin | 0.3 | 0.0 - 1.2 mg/dL | REFERENCE | | | Total | | | LAB | | | | | | [facility] | | | | | | BKR | | + + + + + + | Total | 6.4 | 6.0 - 8.3 g/dL | REFERENCE | | | Protein | | | LAB | | | | | | [facility] | | | | | | BKR | | + + + + + + | Albumin | 3.6 | 3.5 - 5.0 g/dL | REFERENCE | | | | | | LAB | | | | | | [facility] | | | | | | BKR | | + + + + + + | Globulin | 2.8 | 1.8 - 3.5 | REFERENCE | | | | | | LAB | | | | | | [facility] | | | | | | BKR | | + + + + + + | A/G Ratio | 1.3 | 1.1 - 2.4 | REFERENCE | | | | | | LAB | | | | | | [facility] - | | | | | | BKR | | + + + + + + + + | Specimen | + + | Blood | + + + + + + + | Performing | Address | City/State/Zipcode | Phone Number | | Organization | | | | + + + + + | REFERENCE LAB | [address] | [place] | [phone] | | [facility] | | [address] | | + + + + + Vancomycin, Trough (10/06/2019 9:35 PM PST) + + + + + + | Component | Value | Ref Range | Performed | Pathologist | | | | | At | Signature | + + + + + + | Vancomycin | 10.3 | 10.0 - 15.0 | REFERENCE | | | Trough | | ug/mL | LAB | | | | | | [facility] | | | | | | [facility]KR | | + + + + + + | LAST DOSE | NOT STATED | | REFERENCE | | | GIVEN | | | LAB | | | | | | [facility] | | | | | | [facility]KR | | + + + + + + + + | Specimen | + + | Blood | + + + + + + + | Performing | Address | City/State/Zipcode | Phone Number | | Organization | | | | + + + + + | REFERENCE LAB | [address] | [place] | [phone] | | [facility] | | [address] | | + + + + + C-Reactive Protein (10/06/2019 9:35 PM PST) + +-------+ + + + | Component | Value | Ref Range | Performed | Pathologist | | | | | At | Signature | + +-------+ + + + | CRP | 1 | 0 - 5 mg/L | REFERENCE | | | | | | LAB | | | | | | [facility] | | | | | | [facility] | | + +-------+ + + + + + | Specimen | + + | Blood | + + + + + + + | Performing | Address | City/State/Zipcode | Phone Number | | Organization | | | | + + + + + | REFERENCE LAB | [address] | [place] | [phone] | | [facility] | | [address] | | + + + + + Sedimentation Rate (10/06/2019 9:35 PM PST) + +--------+ + + + | Component | Value | Ref Range | Performed | Pathologist | | | | | At | Signature | + +--------+ + + + | Erythrocyte | 42 (A) | 0 - 15 mm/hr | REFERENCE | | | | | | LAB | | | Sedimentati | | | [facility] | | | on Rate | | | BKR | | + +--------+ + + + + + | Specimen | + + | Blood | + + + + + + + | Performing | Address | City/State/Zipcode | Phone Number | | Organization | | | | + + + + + | REFERENCE LAB | [address] | [place], [place] | [phone] | | [facility] | | [address] | | + + + + + CBC w/ Auto Differential (09/05/2019 9:35 PM PDT) + + + + + + | Component | Value | Ref Range | Performed | Pathologist | | | | | At | Signature | + + + + + + | WBC, | 7.0 | 4.5 - 11.0 K/uL | REFERENCE | | | External | | | LAB | | | | | | [facility] | | | | | | [facility]KR | | + + + + + + | RBC, | 4.09 (A) | 4.3 - 5.7 M/uL | REFERENCE | | | External | | | LAB | | | | | | [facility] | | | | | | [facility]KR | | + + + + + + | HGB, | 10.0 (A) | 13.5 - 18.0 | REFERENCE | | | External | | g/dL | LAB | | | | | | [facility] | | | | | | BKR | | + + + + + + | HCT, | 31.6 (A) | 41 - 50 % | REFERENCE | | | External | | | LAB | | | | | | [facility] | | | | | | BKR | | + + + + + + | MCV | 77.4 (A) | 81 - 99 fl | REFERENCE | | | | | | LAB | | | | | | [facility] | | | | | | [facility]KR | | + + + + + + | RDW | 18.8 (A) | 10.5 - 15.0 % | REFERENCE | | | | | | LAB | | | | | | [facility] | | | | | | BKR | | + + + + + + | MCH | 24 (A) | 27 - 33 pg | REFERENCE | | | | | | LAB | | | | | | [facility] | | | | | | [facility]KR | | + + + + + + | MCHC | 32 | 30 - 36 g/dL | REFERENCE | | | | | | LAB | | | | | | [facility] | | | | | | [facility]KR | | + + + + + + | Neutrophils | 56.4 | 39 - 80 % | REFERENCE | | | %, | | | LAB | | | External | | | [facility] | | | | | | BKR | | + + + + + + | Lymphocytes | 23.6 (A) | 24 - 44 % | REFERENCE | | | %, | | | LAB | | | External | | | [facility] | | | | | | BKR | | + + + + + + | Monocytes | 7.2 | 0 - 12 % | REFERENCE | | | %, External | | | LAB | | | | | | [facility] | | | | | | BKR | | + + + + + + | Eosinophils | 11.6 (A) | 0 - 6 % | REFERENCE | | | %, | | | LAB | | | External | | | [facility] | | | | | | [facility]KR | | + + + + + + | Basophils | 1.2 | 0 - 2 % | REFERENCE | | | %, External | | | LAB | | | | | | [facility] | | | | | | [facility]KR | | + + + + + + | Neutrophils | 3.95 | 2.0 - 6.9 K/uL | REFERENCE | | | , Absolute, | | | LAB | | | External | | | [facility] | | | | | | BKR | | + + + + + + | Lymphocytes | 1.65 | 0.6 - 3.4 K/uL | REFERENCE | | | , Absolute, | | | LAB | | | External | | | [facility] | | | | | | BKR | | + + + + + + | Monocytes, | 0.50 | 0.00 - 1.0 K/uL | REFERENCE | | | Absolute, | | | LAB | | | External | | | [facility] | | | | | | BKR | | + + + + + + | Eosinophils | 0.81 (A) | 0.0 - 0.7 K/uL | REFERENCE | | | , Absolute | | | LAB | | | | | | [facility] | | | | | | [facility]KR | | + + + + + + | Basophils, | 0.08 | 0.00 - 0.2 K/uL | REFERENCE | | | Absolute | | | LAB | | | | | | [facility] | | | | | | [facility]KR | | + + + + + + | PLT, | 176 | 140 - 440 K/uL | REFERENCE | | | External | | | LAB | | | | | | [facility] | | | | | | [facility] | | + + + + + + + + | Specimen | + + | Blood | + + + + + + + | Performing | Address | City/State/Zipcode | Phone Number | | Organization | | | | + + + + + | REFERENCE LAB | [address] | [place] | [phone] | | [place] | | [address] | | + + + + + documented in this encounter Visit Diagnoses Not on filedocumented in this encounter"
--- OUTSIDE RECORDS SUMMARY | ~2020-05-24 | XMS | Encounter Summary ---
Demographics + + + | Address | [address] | | | [place] [address] | + + + | Home Phone | | + + + | Preferred Language | Unknown | + + + | Marital Status | Single | + + + | Yazidi Affiliation | Unknown | + + + | Race | Unknown | + + + | Ethnic Group | Unknown | + + + Author + + + | Author | [facility] | | | and [place] | + + + | Organization | [facility] | | [...] Team Providers + +------+ + | Care Naumkeag Operator Name | Role | Phone | + +------+ + | Dustin Perez MD | PCP | | + +------+ + Reason for Visit +--------+--------+ + | Reason | Onset | Comments | | | Date | | +--------+--------+ + | Other | 10/01/ | care coordination/lab orders | | | 2018 | | +--------+--------+ + Encounter Details +--------+ + + + + | Date | Type | Department | Care Team | Description | +--------+ + + + + | 10/01/ | Telephone | [facility] | Heather Russo | Other (care | | 2019 | | INFECTIOUS DISEASE | AZAR De Oliveira | coordination/lab | | | | [address] | | orders) | | | | [place] | | | | | | [address] | | | | | | [phone] | | | +--------+ + + + [...] this encounter Miscellaneous Notes Telephone Encounter - Heather Russo RN - 10/06/2019 3:46 PM PSTCalled [facility] , requested lab resuults be faxed to our office. Lab staff states labs were done on Sunday12/03/2018. [facility] fax number given. Electronically signed by Heather Russo RN at 019 3:47 PM PSTTelephone Encounter - Heather Russo RN - 10/03/2019 10:27 AM PSTContac katlin [facility] to inquire about vancomycin trough level due yesterday 09/13. Staff states they had a MOISTURE CONDITIONER OPERATOR on duty yesterday, who could not draw from patient picc line and she was advised not to draw a peripheral blood sample. Staff at [facility] states there will be a RN on staff tonight and the vancomycin trough will be drawn. Advised if vano mcycin trough levels are out of range to call [facility] reconciliation coordinator doctor. Contact phone number pro vxdvd. Advised [facility] staff our office will follow up next week for lab results . Facility sends their labs to [facility] for processing. elephone Encounter - Heather Russo RN - 019 10:26 AM PSTCalled [facility] lab for vancomycin trough leve due yesterday 10/02, advised no current vancomycin trough level, last labs are from 09/23/2019. Electronic ally signed by Heather Russo RN at 10/03/2019 10:27 AM PSTTelephone Encounter - Heather Katz RN - 10/02/2019 11:33 AM PSTCalled [facility] to verify current Vancom ycin dose and what time patient receives his dose. Spoke to charge nurse at facility who sta bryan patient current regimen is Vancomycin 1500mg IV q24hrs, and time of infusion is 8pm. Pat ient due for Vancomycin trough today, which will be done prior to his evening dose later tod ay. elephone Encoun ter - Heather Russo RN - 10/01/2019 11:01 AM PSTAdded to IV antibiotics tracking 10/01. elephone En counter - Heather Russo RN - 10/01/2019 10:57 AM PSTCalled [facility]. Advised patient will need twice weekly labs while on IV Vancom ycin, informed nurse lab orders per DR Vogel as follows. Every Sunday: cbc, cmp, esr, crp +vanco trough. Every : cbc, cmp and vanco trough. [facility] uses [facility]. Advised patient to follow up with [facility] 10/13/2019. elephone Encounter - Heather Russo RN - 10/01/2019 1 0:57 AM PST----- Message from Savannah Patel Creative Manager sent at 10/01/2019 8:[address] ----- ----- Message ----- From: Liang Gunderson MD Sent: 09/30/2019 5:53 PM PST To: [facility] Clinical Staff Pool Please add the patient to the IV antibiotic list. Obtain twice weekly lab results. documented in this encounter Plan of Treatment Not on filedocumented as of this encounter Visit Diagnoses Not on filedocumented in this encounter"
--- OUTSIDE RECORDS SUMMARY | ~2020-05-24 | XMS | Encounter Summary ---
Demographics + + + | Address | [address] | | | [place] [address] | + + + | Home Phone | | + + + | Preferred Language | Unknown | + + + | Marital Status | Single | + + + | Amish Affiliation | Unknown | + + + | Race | Unknown | + + + | Ethnic Group | Unknown | + + + Author + + + | Author | [facility] | | | and [place] | + + + | Organization | [facility] | | | [...] Team Providers + +------+ + | Care Lockstitch Tunnel Elastic Operator Name | Role | Phone | [...] + + | 09/01/ | Office | [facility] | Heather Thomas | [place] | | 2019 | Visit | [facility] [place] | [address] | persistent atrial | | | | [address] | [place]EN[place] [address] | fibrillation (HCC) | | | | [address] | [place] [address] | (Primary Dx); | | | | [place], [place] | [phone] | Encounter for | | | | [address] | | monitoring diuretic | | | | [phone] | | therapy; Essential | | | [...] | | | | | | extremity edema; | | | | | | Hypokalemia; | | | | | | Hyponatremia | +--------+---------+ + + + Social History [...] + | Blood Pressure | 110/54 | 09/01/2019 1:31 PM | | | | | PDT | | + + + + + | Pulse | 88 | 09/01/2019 1:31 PM | | | | | PDT | | + + + + + | Temperature | - | - | | + + + + + | Respiratory Rate | - | - | | + + + + + | Oxygen Saturation | 100% | 09/01/2019 1:31 PM | | | | | PDT | | + + + + + | Inhaled Oxygen | - | - | | | Concentration | | | | + + + + + | Weight | 92.5 kg (204 lb) | 09/01/2019 1:31 PM | | | | | PDT | | + + + + + | Height | 180.3 cm (5' 11") | 09/01/2019 1:31 PM | | | | | PDT | | + + + + + | Body Mass Index | 28.45 | 09/01/2019 1:31 PM | | | | | PDT | | + + + + + documented in this encounter Patient Instructions Patient Instructions Heather Thomas FNP - 09/01/2019 1:30 PM PDTI have ordered you non-fasting labs to be done at [facility] in 2 weeks I made these changes to medications: Started Torsemide 10 mg daily with potassium 20 Meq t wice a day See me back in 4 weeks documented in this encounter Progress Notes Heather Thomas FNP - 09/01/2019 1:30 PM PDTFormatting of this note might be differe nt from the original. Date of visit: 09/01/2019 Primary [...] hyperlipidemia, and dependent pe yaritza edema. His [id number] VASC score is 3( age, HTN, DM) giving him an annual stroke risk of 3.2% and [facility] HAS BLED score is 4( HTN, liver function, age, ETOH) which gives him an 8.7% risk of major bleed, Dr. Malin had previously indicated he was not a candidate for anticoagulation, but yelitza spear suggested he continue on 325 mg of aspirin daily which was reduced his risk of stroke to 2 .6 %/year. When last seen by Dr. Malin, he noted from a cardiovascular standpoint he was fairly sta ble and his edema was better, and he had made no changes to his medication, and noted that h is previous hospitalization at [facility] was from viral gastroenteritis, cirrhosis, mi ld [...] to medications He was last hospitalized at [facility] in May 2019 for weakness and hyponatremia, a nd after that he was moved to [facility] where he has been for approximatel y 3 months for physical and occupational therapy, but reports he will be returning to his [facility] tomorrow. Notes from his hospitalization document that [...] deconditioned, and [facility] He was also [...] feel improved since he has been at [facility], an d remains abstinent from alcohol. His previous weakness and dizziness have resolved, and [place] denies any chest pain, palpitations, but still [...] treated with daily wound care, but recen xavier it was noticed that he had a [...] have improved since he has been at [facility]. Denies unexplained weight loss. Appetite is good. [...] 411 ms, tracing personally rev iewed by me EK06/30/2019: Atrial fibrillation with borderline controlled ventricular response nonspec ific ST abnormality consistent with old septal ND. Rate 98 bpm, QRS 80 ms, QTC 380 ms, trac ing personally reviewed by [place] LABS Labs: 05/28/2019:[facility]: Phosphorus 2.9. INR 0.9. CMP: Sodium 123, potassium 3, chloride 80, CO2 29, BUN 4, creatinine 0.62, GFR >120, glucose 110, magnesium 2.1 total bili 1.4, AST 50, ALT 30, alk phos 132,, troponin T <0.010, albumin 3.3. Thyroid: TSH 3.62. CB C: WBC 6.3, RBC 3.07, hemoglobin 10.4, hematocrit 29.8, platelets 154. Digoxin: 1.39. Labs: 05/29/2019: [facility]: BMP: Sodium 132, potassium 3.7, chloride [...] total bili 0.5, albumin 2.9. Digoxin: 0.68. Addendum : 10/06/2019: labs: 09/23/2019 1 CMP: Sodium 138, potassium 4.2, chloride 102, gl ucose 104, BUN 14, creatinine 1.17, AST 13, ALT 10, alk phos 80, total bili 0.3, GFR 62, alb umin 3.8. CRP<1. CBC: WBC 8, RBC 4.21, hemoglobin 10.1, hematocrit 32, platelets 338 Labs: 09/23/2019: CMP: Sodium 138, potassium 4.2, chloride 102, glucose 104, BUN 14, creati nine 1.17, AST 13, ALT 10, alk phos 88, total bili 0.3, GFR 62, albumin 3.6. CRP less than 1. CBC: WBC 8, RBC 4.21, hemoglobin 10, hematocrit 32, platelets 338 ASSESSMENT & PLAN: He was here today [...] eris, vital sign and medication record from [facility]. Allergies, current medications.labs Family history, past medical history, past social history, past surgical history. Problem list. YAMILA Bhagat [facility]iology 09/01/2019 docum ented in this encounter Plan of Treatment + +------+--------+ + + | Name | Type | Priori | Associated Diagnoses | Order Schedule | | | | ty | | | + +------+--------+ + + | Basic Metabolic | 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 | Encounter for | Expected: | | Panel | | e | monitoring diuretic | 09/15/2019, Expires: | | | | | therapy | 09/01/2020 | + +------+--------+ + + documented as of this encounter Procedures + +--------+ + + + | Procedure Name | Priori | Date/Time | Associated Diagnosis | Comments | | | ty | | | | + +--------+ + + + | LABS - EXTERNAL SCAN | | 07/29/2019 | | Results for this | | | | 12:00 AM | | procedure are in the | | | | PDT | | results section. | + +--------+ + + + documented in this encounter Results LABS - EXTERNAL SCAN (07/29/2019 12:00 AM PDT) + + + | Narrative | Performed At | + + + | Ordered by an | | | unspecified provider. | | + + + documented in this encounter Visit Diagnoses + + | Diagnosis | + + | Longstanding persistent atrial fibrillation (HCC) - Primary | + + | Encounter [...] lower extremity edema Edema | + + | Hypokalemia Hypopotassemia | + + | Hyponatremia Hyposmolality and/or hyponatremia | + + documented in this encounter
--- OUTSIDE RECORDS SUMMARY | ~2020-05-24 | XMS | Encounter Summary ---
Demographics + + + | Address | [address] | | | [place] [address] | + + + | Home Phone [...] Author + + + | Author | [facility] | + + + | Organization | [facility] | + + + | Address [...] Team Providers + +------+ + | Care Primary Care Sales Representative Name | Role | Phone | + +------+ + | Dustin Perez MD | PCP | | + +------+ + Encounter Details +--------+ + + + + | Date | Type | Department | Care Team | Description | +--------+ + + + + | 09/06/ | Procedure | [address] | | | | 2019 | Pass | [address] | | | | | | [address] [facility] | | | | | | Hospital Admitting | | | | | | Desk Located on the | | | | | | 9th floor | | | | | | [place], [place] | | | | | | [address] | | | +--------+ + + + [...]
--- OUTSIDE RECORDS SUMMARY | ~2020-05-24 | XMS | Encounter Summary ---
Demographics + + + | Address | [address] | | | [place] [address] | + + + | Home Phone | | + + + | Preferred Language | Unknown | + + + | Marital Status | Single | + + + | Moravian Affiliation | NRP | + + + [...] Team Providers + +------+ + | Care New Car Make Ready Worker Name | Role | Phone | + +------+ + | Dustin Perez MD | PCP | | + +------+ + Encounter Details +--------+--------+ + + + | Date | Type | Department | Care Team | Description | +--------+--------+ + + + | 09/04/ | Travel | | | | | 2018 | | | | | +--------+--------+ + [...]
--- OUTSIDE RECORDS SUMMARY | ~2020-05-24 | XMS | Encounter Summary ---
Demographics + + + | Address | [address] | | | [place] [address] | + + + | Home Phone | | + + + | Preferred Language | Unknown | + + + | Marital Status | Single | + + + | Mosque Affiliation | Unknown | + + + | Race | Unknown | + + + | Ethnic Group | Unknown | + + + Author + + + | Author | [facility] | | | and [place] | + + + | Organization | [facility] | | | [...] Team Providers + +------+ + | Care Claims Representative Name | Role | Phone | + +------+ + | Dustin Perez MD | PCP | | + +------+ + Encounter Details +--------+ + + + + | Date | Type | Department | Care Team | Description | +--------+ + + + + | 10/15/ | Orders Only | [facility] | Susannah Guo V, | | | 2018 | | CONVERSION [address] | [address] | | | | | [address] | [address] [place], [place] | | | | | [place], [place] | [address] | | | | | [address] | | | | | | [phone] | | | +--------+ + + + [...] + | ECHO INTERPRETATION | Routin | 08/26/2018 | | Results for this | | OF OUTSIDE FILMS | e | 11:59 AM | | procedure are in the | | | | PDT | | results section. | + +--------+ + + + documented in this encounter Results ECHO Interpretation of Outside Films (08/26/2018 11:59 AM PDT) + + | Specimen | + + | | + + + + + | Impressions | Performed At | + + + | 1. Overall left ventricular systolic function is normal with, an EF | | | between 65 - 70 %. 2. The right ventricle is normal in size and | | | function. 3. There is mild bi-atrial enlargement. 4. There are no | | | clinically signficant valvular abnormalities. 5. There are no | | | clinically significant changes noted in comparison to his previous | | | echocardiographic study, done 05/01/17. | | + + + + + + | Narrative | Performed At | + + + | Patient Name: Monty An Date of : 1950 | | | Performing Physician: JOHN CRAFT MD | | | | | | INDICATIONS Hypotensive CONCLUSIONS 1. | | | Overall left ventricular systolic function is normal with, an EF | | | between 65 - 70 %. 2. The right ventricle is normal in size and | | | function. 3. There is mild bi-atrial enlargement. 4. There are no | | | clinically signficant valvular abnormalities. 5. There are no | | | clinically significant changes noted in comparison to his previous | | | echocardiographic study, done 05/01/17. FINDINGS -------- ECG | | | rhythm: Atrial fibrillation. Study: A 2-dimensional transthoracic | | | echocardiogram with m-mode, spectral and color flow Doppler was | | | perfomed. Study: This was a technically adequate study, despite | | | Study: poor subcostal views, unchanged from the prior study. Left | | | Ventricle: Overall left ventricular systolic function is normal with, | | | an EF between 65 - 70 %. Left Ventricle: The left ventricle cavity | | | size is normal. Left Ventricle: There is mild concentric left | | | ventricular hypertrophy. Left Ventricle: No regional wall motion | | | abnormalities. Left Ventricle: Atrial fibrillation prevents accurate | | | assessment of diastolic function. Right Ventricle: The right | | | ventricle is normal in size and function. Left Atrium: The left | | | atrium is mildly enlarged, unchanged from the previous study. Right | | | Atrium: The right atrium is mildly enlarged. It was normal in size | | | on the previous study. Aortic Valve: The aortic valve appears to be | | | trileaflet. Aortic Valve: The non coronary cusp is moderately | | | calcified and immobile, with normal excursion of the left and right | | | coronary cusps. Aortic Valve: There is no evidence of aortic | | | regurgitation. Aortic Valve: There does not appear to be any | | | significant aortic stenosis, with peak/mean pressure gradient of | | | 9.92mmHg / 5.88mmHg, not significantly changed from 11/5 mm Hg, as | | | measured on the previous study. The aortic valve area by VTI is | | | 1.5cm , 1.56 cm by the continuity equation, although this | | | is reduced from 2.12 cm , as calculated on the prior study, with | | | no change in the Aortic Valve: maximum velocity across the aortic | | | valve, which is 1.57m/s, and no change in the the LVOT diameter | | | measurement. The only difference is a change in the measured LVOT | | | velocity from 0.7 m/s previously to 0.6 m/s on the current study. | | | Mitral Valve: The mitral valve is normal. Mitral Valve: There is | | | trace mitral regurgitation. Mitral Valve: No evidence of MVP. | | | Tricuspid Valve: The tricuspid valve appears structurally normal. | | | Tricuspid Valve: Trace tricuspid regurgitation present. Tricuspid | | | Valve: There is no obvious evidence of pulmonary hypertension. | | | Tricuspid Valve: The right ventricular systolic pressure (pulmonary | | | artery systolic pressure), as measured by Doppler, is 24.8 + CVP | | | (which could not be accurately estimated, as the IVC could not be | | | visualized). Pulmonic Valve: The pulmonic valve is normal. | | | Pericardium: There is no pericardial effusion. IVC/Hepatic Veins: The | | | IVC was not well visualized. Aorta: The aortic root, ascending aorta | | | and aortic arch are normal. Mass: No mass visualized Thrombus: No | | | clot visualized Thrombus: No vegetation visualized. Septum: No ASD | | | observed. Septum: No VSD observed. MEASUREMENTS | | | Ao asc: 3.61 cm Ao Diam: 3.[address] junct: 2.73 cm LA | | | Diam: 5.29 cm LA Major: 5.75 cm EDV(Teich): 76.40 ml IVSd: | | | 1.12 cm LVIDd: 4.15 cm LVPWd: 1.11 cm LVOT Area: 4.04 | | | cm2 LVOT Diam: 2.27 cm %FS: 26.15 % EF(Teich): 51.72 % | | | ESV(Teich): 36.88 ml LVIDs: 3.06 cm SV(Teich): 39.52 ml RA | | | Major: 5.51 cm RV Major: 5.97 cm RVIDd: 2.70 cm Ao Root: | | | 3.26 cm Ao Diam SVals: 3.33 cm LVEF MOD A2C: 62.83 % SV | | | MOD A2C: 38.89 ml LVEF MOD A4C: 55.79 % SV MOD A4C: 34.12 | | | ml EF Biplane: 58.65 % LVEDV MOD BP: 63.00 ml LVESV MOD BP: | | | 26.05 ml LVEDV MOD A2C: 61.90 ml LVLd A2C: 6.75 cm LVEDV | | | MOD A4C: 61.16 ml LVLd A4C: 7.19 cm LVESV MOD A2C: 23.00 ml | | | LVLs A2C: 5.51 cm LVESV MOD A4C: 27.03 ml LVLs A4C: 6.04 | | | cm LAESV(A-L): 69.96 ml LAESV Index (A-L): 35.33 ml/m2 LAAs | | | A2C: 21.87 cm2 LAESV A-L A2C: 72.13 ml LALs A2C: 5.63 cm | | | LAAs A4C: 21.22 cm2 LAESV A-L A4C: 65.44 ml LALs A4C: 5.84 | | | cm RAAs: 19.08 cm2 RAESV A-L: 51.71 ml RAESV MOD: 49.81 ml | | | RALs: 5.98 cm TAPSE: 2.44 cm AV maxP.91 mmHg AV | | | meanP.88 mmHg AV Vmax: 1.57 m/s AV Vmean: 1.15 m/s AV | | | VTI: 31.23 cm CALI Vmax: 1.51 cm2 CALI (VTI): 1.45 cm2 LVOT | | | maxP.38 mmHg LVOT meanP.74 mmHg LVSI Dopp: 22.93 | | | ml/m2 LVSV Dopp: 45.40 ml LVOT Vmax: 0.58 m/s LVOT Vmean: | | | 0.40 m/s LVOT VTI: 11.22 cm MV A Elliot: 0.22 m/s MV Dec Grant: | | | 8.95 m/s2 MV DecT: 108.45 ms MV E Elliot: 0.97 m/s MV E/A | | | Ratio: 4.26 MV PHT: 31.45 ms MVA By PHT: 6.99 cm2 Septal | | | e': 0.08 m/s Septal E/e': 12.09 Lateral e': 0.10 m/s | | | Lateral E/e': 9.28 RAP: 5 mmHg RVSP: 29.30 mmHg TR maxPG: | | | 24.30 mmHg TR Vmax: 2.46 m/s [employer]: BJ Authenticated | | | by: JOHN CRAFT MD Report Date/Time: -- [id number]:20:5 | | + + + + + | Procedure Note | + + | Valdemar, Rad Conversion - 07/03/2019 5:01 PM PDT Patient Name: Miladis An of | | : 1950 Performing Physician: JOHN CRAFT, | | MD INDICATIONS H | | ypotensive CONCLUSIONS 1. Overall left ventricular systolic function is normal | | with, an EF between 65 - 70 %.2. The right ventricle is normal in size and function.3. | | There is mild bi-atrial enlargement. 4. There are no clinically signficant valvular | | abnormalities. 5. There are no clinically significant changes noted in comparison to his | | previous echocardiographic study, done 05/01/17. FINDINGS--------ECG rhythm: Atrial | | fibrillation.Study: A 2-dimensional transthoracic echocardiogram with m-mode, spectral | | and color flow Doppler was perfomed.Study: This was a technically adequate study, | | despiteStudy: poor subcostal views, unchanged from the prior study.Left Ventricle: | | Overall left ventricular systolic function is normal with, an EF between 65 - 70 %.Left | | Ventricle: The left ventricle cavity size is normal.Left Ventricle: There is mild | | concentric left ventricular hypertrophy.Left Ventricle: No regional wall motion | | abnormalities.Left Ventricle: Atrial fibrillation prevents accurate assessment of | | diastolic function.Right Ventricle: The right ventricle is normal in size and | | function.Left Atrium: The left atrium is mildly enlarged, unchanged from the previous | | study.Right Atrium: The right atrium is mildly enlarged. It was normal in size on the | | previous study.Aortic Valve: The aortic valve appears to be trileaflet.Aortic Valve: The | | non coronary cusp is moderately calcified and immobile, with normal excursion of the | | left and right coronary cusps.Aortic Valve: There is no evidence of aortic | | regurgitation.Aortic Valve: There does not appear to be any significant aortic stenosis, | | with peak/mean pressure gradient of 9.92mmHg / 5.88mmHg, not significantly changed from | | 11/5 mm Hg, as measured on the previous study. The aortic valve area by VTI is | | 1.5cm , 1.56 cm by the continuity equation, although this is reduced from | | 2.12 cm , as calculated on the prior study, with no change in theAortic Valve: | | maximum velocity across the aortic valve, which is 1.57m/s, and no change in the the | | LVOT diameter measurement. The only difference is a change in the measured LVOT velocity | | from 0.7 m/s previously to 0.6 m/s on the current study.Mitral Valve: The mitral valve | | is normal.Mitral Valve: There is trace mitral regurgitation.Mitral Valve: No evidence of | | MVP.Tricuspid Valve: The tricuspid valve appears structurally normal.Tricuspid Valve: | | Trace tricuspid regurgitation present.Tricuspid Valve: There is no obvious evidence of | | pulmonary hypertension.Tricuspid Valve: The right ventricular systolic pressure | | (pulmonary artery systolic pressure), as measured by Doppler, is 24.8 + CVP (which could | | not be accurately estimated, as the IVC could not be visualized).Pulmonic Valve: The | | pulmonic valve is normal.Pericardium: There is no pericardial effusion.IVC/Hepatic | | Veins: The IVC was not well visualized.Aorta: The aortic root, ascending aorta and | | aortic arch are normal.Mass: No mass visualizedThrombus: No clot visualizedThrombus: No | | vegetation visualized.Septum: No ASD observed.Septum: No VSD observed. | | MEASUREMENTS Ao asc: 3.61 cmAo Diam: 3.[address] junct: 2.73 cmLA | | Diam: 5.29 cmLA Major: 5.75 cmEDV(Teich): 76.40 mlIVSd: 1.12 cmLVIDd: 4.15 | | cmLVPWd: 1.11 cmLVOT Area: 4.04 [id number] Diam: 2.27 cm%FS: 26.15 %EF(Teich): | | 51.72 %ESV(Teich): 36.88 mlLVIDs: 3.06 cmSV(Teich): 39.52 mlRA Major: 5.51 cmRV | | Major: 5.97 cmRVIDd: 2.70 cmAo Root: 3.26 cmAo Diam SVals: 3.33 cmLVEF MOD A2C: | | 62.83 %SV MOD A2C: 38.89 mlLVEF MOD A4C: 55.79 %SV MOD A4C: 34.12 mlEF Biplane: | | 58.65 %LVEDV MOD BP: 63.00 mlLVESV MOD BP: 26.05 mlLVEDV MOD A2C: 61.90 mlLVLd | | A2C: 6.75 cmLVEDV MOD A4C: 61.16 mlLVLd A4C: 7.19 cmLVESV MOD A2C: 23.00 mlLVLs | | A2C: 5.51 cmLVESV MOD A4C: 27.03 mlLVLs A4C: 6.04 cmLAESV(A-L): 69.96 mlLAESV | | Index (A-L): 35.33 ml/m2LAAs A2C: 21.87 [id number] A-L A2C: 72.13 mlLALs A2C: 5.63 | | cmLAAs A4C: 21.22 [id number] A-L A4C: 65.44 mlLALs A4C: 5.84 cmRAAs: 19.08 | | [id number] A-L: 51.71 mlRAESV MOD: 49.81 mlRALs: 5.98 cmTAPSE: 2.44 cmAV maxPG: | | 9.91 mmHgAV meanP.88 mmHgAV Vmax: 1.57 m/Brenda Vmean: 1.15 m/Brenda VTI: 31.23 | | cmAVA Vmax: 1.51 cm2AVA (VTI): 1.45 [id number] maxP.38 mmHgLVOT meanP.74 | | mmHgLVSI Dopp: 22.93 ml/m2LVSV Dopp: 45.40 mlLVOT Vmax: 0.58 m/sLVOT Vmean: 0.40 | | m/sLVOT VTI: 11.22 cmMV A Elliot: 0.22 m/sMV Dec Grant: 8.95 m/s2MV DecT: 108.45 | | msMV E Elliot: 0.97 m/sMV E/A Ratio: 4.26MV PHT: 31.45 msMVA By PHT: 6.99 [id number] | | e': 0.08 m/sSeptal E/e': 12.09Lateral e': 0.10 m/sLateral E/e': 9.28RAP: 5 | | mmHgRVSP: 29.30 mmHgTR maxP.30 mmHgTR Vmax: 2.46 m/s [employer]: | | DHAuthenticated by: Dagoberto TORIBIO Date/Time: -- 00_[id number]:20:5 | | IMPRESSION: 1. Overall left ventricular systolic function is normal with, an EF between | | 65 - 70 %.2. The right ventricle is normal in size and function.3. There is mild | | bi-atrial enlargement. 4. There are no clinically signficant valvular abnormalities. 5. | | There are no clinically significant changes noted in comparison to his previous | | echocardiographic study, done 05/01/17. | |IVSd: 1.12 cm | |LVIDd: 4.15 cm | |LVPWd: 1.11 cm | |LVOT Area: 4.04 cm2 | |LVOT Diam: 2.27 cm | |%FS: 26.15 % | |EF(Teich): 51.72 % | |ESV(Teich): 36.88 ml | |LVIDs: 3.06 cm | |SV(Teich): 39.52 ml | |RA Major: 5.51 cm | |RV Major: 5.97 cm | |RVIDd: 2.70 cm | |Ao Root: 3.26 cm | |Ao Diam SVals: 3.33 cm | |LVEF MOD A2C: 62.83 % | |SV MOD A2C: 38.89 ml | |LVEF MOD A4C: 55.79 % | |SV MOD A4C: 34.12 ml | |EF Biplane: 58.65 % | |LVEDV MOD BP: 63.00 ml | |LVESV MOD BP: 26.05 ml | |LVEDV MOD A2C: 61.90 ml | |LVLd A2C: 6.75 cm | |LVEDV MOD A4C: 61.16 ml | |LVLd A4C: 7.19 cm | |LVESV MOD A2C: 23.00 ml | |LVLs A2C: 5.51 cm | |LVESV MOD A4C: 27.03 ml | |LVLs A4C: 6.04 cm | |LAESV(A-L): 69.96 ml | |LAESV Index (A-L): 35.33 ml/m2 | |LAAs A2C: 21.87 cm2 | |LAESV A-L A2C: 72.13 ml | |LALs A2C: 5.63 cm | |LAAs A4C: 21.22 cm2 | |LAESV A-L A4C: 65.44 ml | |LALs A4C: 5.84 cm | |RAAs: 19.08 cm2 | |RAESV A-L: 51.71 ml | |RAESV MOD: 49.81 ml | |RALs: 5.98 cm | |TAPSE: 2.44 cm | |AV maxP.91 mmHg | |AV meanP.88 mmHg | |AV Vmax: 1.57 m/s | |AV Vmean: 1.15 m/s | |AV VTI: 31.23 cm | |CALI Vmax: 1.51 cm2 | |CALI (VTI): 1.45 cm2 | |LVOT maxP.38 mmHg | |LVOT meanP.74 mmHg | |LVSI Dopp: 22.93 ml/m2 | |LVSV Dopp: 45.40 ml | |LVOT Vmax: 0.58 m/s | |LVOT Vmean: 0.40 m/s | |LVOT VTI: 11.22 cm | |MV A Elliot: 0.22 m/s | |MV Dec Grant: 8.95 m/s2 | |MV DecT: 108.45 ms | |MV E Elliot: 0.97 m/s | |MV E/A Ratio: 4.26 | |MV PHT: 31.45 ms | |MVA By PHT: 6.99 cm2 | |Septal e': 0.08 m/s | |Septal E/e': 12.09 | |Lateral e': 0.10 m/s | |Lateral E/e': 9.28 | |RAP: 5 mmHg | |RVSP: 29.30 mmHg | |TR maxP.30 mmHg | |TR Vmax: 2.46 m/s | | | |[employer]: | |Authenticated by: JOHN CRAFT MD | |Report Date/Time: -- 11_[id number]_79:20:5 | | | |IMPRESSION: | |1. Overall left ventricular systolic function is normal with, an EF between 65 - 70 %. | |2. The right ventricle is normal in size and function. | |3. There is mild bi-atrial enlargement. 4. There are no clinically signficant valvular abno rmalities. 5. There are no clinically significant changes noted in comparison to his previou s echocardiographic study, done 05/01/17. | + + documented in this encounter Visit Diagnoses Not on filedocumented in this encounter"
--- OUTSIDE RECORDS SUMMARY | ~2020-05-24 | XMS | Encounter Summary ---
Demographics + + + | Address | [address] | | | [place] [address] | + + + | Home Phone | | + + + | Preferred Language | Unknown | + + + | Marital Status | Single | + + + | Mandaeism Affiliation | Unknown | + + + | Race | Unknown | + + + | Ethnic Group | Unknown | + + + Author + + + | Author | [facility] | | | and [place] | + + + | Organization | [facility] | | | [...] Team Providers + +------+ + | Care Ad Operations Coordinator Name | Role | Phone | [...] + + | 10/30/ | Telephone | [facility] | Heather Russo | Other (care | | 2019 | | INFECTIOUS DISEASE | Alvino RN | coordination) | | | | [address] | | | | | | [place] | | | | | | [address] | | | | | | [phone] | | | +--------+ + + + [...] Russo RN - 11/03/2019 3:41 PM PSTCalled [facility], verified with staff at facility, patient picc line was removed prior to patient disch arge on Sunday10/31/2019. Will remove from IV antibiotics tracking registry at this time. E lectronically signed by Heather Russo RN at 11/03/2019 3:44 PM PSTTelephone Encounter - Heather Russo RN - 10/30/2019 10:04 AM PSTReceived voice message from [facility], regarding patient last dose of IV Vancomycin and potential discharge from facility by Wednesday 10/31. Reviewed [facility] progress notes. Patient seen by Dr Donovan 10/29/19, note states under plan section: I have given an order for his PICC line to be removed following his completion of antibioti c therapy evening, to be removed no later than Sunday Prior to discharge. Faxed copy of progress notes to [facility], Fax confirmation received. Called Germain singh and left voice message for RCM with the same information. No further concerns at th is time. documented in this encounter Plan of Treatment Not on filedocumented as of this encounter Visit Diagnoses Not on filedocumented in this encounter"
--- OUTSIDE RECORDS SUMMARY | ~2020-05-24 | XMS | Encounter Summary ---
Demographics + + + | Address | [address] | | | [place] [address] | + + + | Home Phone | | + + + | Preferred Language | Unknown | + + + | Marital Status | Single | + + + | Zoroastrianism Affiliation | NRP | + + + [...] Team Providers + +------+ + | Care Manager Federal Name | Role | Phone | + [...]
--- OUTSIDE RECORDS SUMMARY | ~2020-05-24 | XMS | Encounter Summary ---
Demographics + + + | Address | [address] | | | [place] [address] | + + + | Home Phone | | + + + | Preferred Language | Unknown | + + + | Marital Status | Single | + + + | Gnosticist Affiliation | Unknown | + + + | Race | Unknown | + + + | Ethnic Group | Unknown | + + + Author + + + | Author | [facility] | | | and [place] | + + + | Organization | [facility] | [...] Team Providers + +------+ + | Care Fish Hatchery Worker Name | Role | Phone | [...] + + | 10/29/ | Office | [facility] | Scotty Donovan DO | Subacute | | 2019 | Visit | INFECTIOUS DISEASE | [address] | 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 The patient [...] had apparently some [facility] which were [facility] negative. Prior to [...] 06, 2019 for wound closure. The patient's [place] crobiology showed Staphylococcus aureus (MRSA), Corynebacterium striatum, [...]
--- OUTSIDE RECORDS SUMMARY | ~2020-05-24 | XMS | Encounter Summary ---
Demographics + + + | Address | [address] | | | [place] [address] | + + + | Home Phone | | + + + | Preferred Language | Unknown | + + + | Marital Status | Single | + + + | Yazidism Affiliation | NRP | + + + | Race | White | + + + | Ethnic Group | Not or | + + + Author + + + | Author | [facility] | + + + | Organization | [facility] | + + + | Address [...] Providers + +------+ + | Care Diet Technician Registered Name | Role | Phone | + +------+ + | Dustin Perez MD | PCP | | + +------+ + Encounter Details +--------+ + + + + | Date | Type | Department | Care Team | Description | +--------+ + + + + | 10/08/ | Documentati | Infectious | Trish Baum, | | | 2019 | on | Diseases at [facility] | [address] | | | | | [address] | [address] | | | | | Loop Physician's | [place], [place] | | | | | [facility], [facility] floor | [address] | | | | | [place], [place] | [phone] | | | | | [address] | | | | | | [phone] | | | +--------+ + + + [...]
--- OUTSIDE RECORDS SUMMARY | ~2020-05-24 | XMS | Encounter Summary ---
Demographics + + + | Address | [address] | | | [place] [address] | + + + | Home Phone | | + + + | Preferred Language | Unknown | + + + | Marital Status | Single | + + + | Bahai Affiliation | Unknown | + + + [...] Team Providers + +------+ + | Care Cooker Casing Name | Role | Phone | + [...] + + | 10/23/ | Documentati | [facility] | Jaspreet Gunderson, | Results | | 2019 | on | INFECTIOUS DISEASE | Liang Quintana MD | ([facility], | | | | [address] | [address] | Vanco, CRP, CBC, ESR | | | | [place], [place] | [place] [address] | ) | | | | [address] | [phone] | | | | | [phone] | | | +--------+ + + + [...]
--- OUTSIDE RECORDS SUMMARY | ~2020-05-24 | XMS | Clinical Summary ---
Demographics + + + | Address | [address] | | | [place] [address] | + + + | Home Phone [...] Team Providers + +------+ + | Care Security Police Officer Name | Role | Phone | + +------+ + | Dustin Perez MD | PCP | | + +------+ + Source Comments RADHA is fully live on both [facility] Ambulatory and [facility] InPatient.[facility] Allergies No Known Allergies Medications + [...] Left: | JULISA | | 05/11/ | [id number] | | Gentamicin - | | Foot | | | 2020 | 355 / | | [id number]: Qty: 2 on | | | | | | /[id number] | | 09/04/2019 by Elan, | | | | | | [id number] | | Olivier Mills MD at [facility] | | | | | | | [...] | | | | | | | [address] | | + +--------+ +--------+ + +--------+ | [employer] MEDICARE | MODA | xxxxxxxxx | 11/01/ | [phone] | [address] | [address] | | SUPPLEMENT | MEDICA | | 2015-P | 4 | [id number] | | | | RE | | resent | | [place], | | | | SUPPLE | | | | [place] [address] | | | | MENT | | [...] | 1950 | [phone] | [place] [address] | | | ursula | | | [...]
--- OUTSIDE RECORDS SUMMARY | ~2020-05-24 | XMS | Encounter Summary ---
Demographics + + + | Address | [address] | | | [place] [address] | + + + | Home Phone | | + + + | Preferred Language | Unknown | + + + | Marital Status | Single | + + + | Latter-Day Affiliation | NRP | + + + | Race | White | + + + | Ethnic Group | Not or | + + + Author + + + | Author | [facility] | + + + | Organization | [facility] | + + + | Address [...] Providers + +------+ + | Care Fire Management Officer Name | Role | Phone | [...] | | | | | | Rd [facility] | | | | | | Hospital Admitting | | | | | | Desk Located on the | | | | | | 9th floor | | | | | | [place], [place] | | | | | | [address] | | | +--------+ + + + [...]
--- OUTSIDE RECORDS SUMMARY | ~2020-05-24 | XMS | Encounter Summary ---
Demographics + + + | Address | [address] | | | [place] [address] | + + + | Home Phone | | + + + | Preferred Language | Unknown | + + + | Marital Status | Single | + + + | Mosque Affiliation | NRP | + + + [...] Team Providers + +------+ + | Care Hvac Technician Residential Name | Role | Phone | + [...] | | | | Loop Physician's | [place], [place] | | | | | [address]as, [facility] floor | [address] | | | | | [place], [place] | [phone] | | | | | [address] | | | | | | [phone] | | | +--------+ + + + [...]
--- OUTSIDE RECORDS SUMMARY | ~2020-05-24 | XMS | Encounter Summary ---
Demographics + + + | Address | [address] | | | [place] [address] | + + + | Home Phone [...] Team Providers + +------+ + | Care Patient Service Rep Name | Role | Phone | + [...] | | | | | | Rd [facility] | | | | | | Hospital Admitting | | | | | | Desk Located on the | | | | | | 9th floor | | | | | | [place], [place] | | | | | | [address] | | | +--------+ + + + [...]
--- OUTSIDE RECORDS SUMMARY | ~2020-05-24 | XMS | Encounter Summary ---
Demographics + + + | Address | [address] | | | [place] [address] | + + + | Home Phone [...] + + + | Author | [facility] | | | and [place] | + + + | Organization | [facility] | | | and [...] Team Providers + +------+ + | Care Tractor Drill Operator Name | Role | Phone | [...] | | | [address] | [address] [place], [place] | | | | | [place], [place] | [address] | | | | | [address] | | | | | | [phone] | | | +--------+ + + + [...] | color flow Doppler was perfomed at [facility]. Study: This | | | was a [...] TR | | | Vmax: 2.46 m/s Sewing Machine Mechanic: [email or web address] Authenticated by: JOHN | | | [...] flow Doppler was perfomed | | at [facility].Study: This was a technically adequate study, although [...] mlLAESV Index (A-L): 31.24 ml/m2LAAs A2C: 19.15 [id number] A-L | | A2C: 60.27 mlLALs A2C: 5.16 cmLAAs A4C: 21.74 [id number] A-L A4C: 77.46 mlLALs | | A4C: 5.18 cmRAAs: 16.35 so6RRSSD A-L: 49.97 mlRAESV MOD: 45.62 mlRALs: 4.54 | | cmAV maxP.86 mmHgAV meanP.31 mmHgAV Vmax: 1.64 m/Brenda Vmean: 1.08 m/Brenda | | VTI: 28.52 cmAVA Vmax: 1.70 cm2AVA (VTI): 2.12 mk4YGBZ Vmax: 0.00 cm2/m2AVAI | | (VTI): 0.00 cm2/m2LVOT maxP.90 mmHgLVOT meanP.13 mmHgLVSI Dopp: 27.66 | | ml/m2LVSV Dopp: 60.58 mlLVOT Vmax: 0.68 m/sLVOT Vmean: 0.50 m/sLVOT VTI: 14.83 | | cmMV E Elliot: 1.12 m/sMV DecT: 129.17 msTR maxP.27 mmHgTR Vmax: 2.46 m/s | | Sewing Machine Mechanic: DBSAuthenticated by: Dagoberto TORIBIO Date/Time: 05-01-2017 17:57:56 [...] |TR Vmax: 2.46 m/s | | | |Sewing Machine Mechanic: DBS | |Authenticated by: JOHN CRAFT MD [...]
--- OUTSIDE RECORDS SUMMARY | ~2020-05-24 | XMS | Encounter Summary ---
Demographics + + + | Address | [address] | | | [place] [address] | + + + | Home Phone [...] Team Providers + +------+ + | Care Filler Wiper Name | Role | Phone | + [...] | | | | [facility] | [place], [place] | (Creatinine); | | | | [address], 3rd floor | [address] | Infectious disease | | | | [place], [place] | [phone] | | | | | [address] | | | | | | [phone] | | | +--------+ + + + [...]
--- OUTSIDE RECORDS SUMMARY | ~2020-05-24 | XMS | Encounter Summary ---
Demographics + + + | Address | [address] | | | [place] [address] | + + + | Home Phone | | + + + | Preferred Language | Unknown | + + + | Marital Status | Single | + + + | Holiness Affiliation | NRP | + + + | Race | White | + + + | Ethnic Group | Not or | + + + Author + + + | Author | [facility] | + + + | Organization | [facility] | + + + | [...] Team Providers + +------+ + | Care Parimutuel Ticket Seller Name | Role | Phone | + [...] [address] | | | | | Bogdan [facility] | [address] | | | | | Hospital Admitting | [place], [place] | | | | | Desk Located on the | [address] | | | | | 9th floor | [phone] | | | | | [place], [place] | | | | | | [address] | Fannie Duckworth, | | | | | | [address] | | | | | | [address] | | | | | | [place], [place] | | | | | | [address] | | | | | | [phone] | | | | | | | [...]
--- OUTSIDE RECORDS SUMMARY | ~2020-05-24 | XMS | Encounter Summary ---
Demographics + + + | Address | [address] | | | [place] [address] | + + + | Home Phone | | + + + | Preferred Language | Unknown | + + + | Marital Status | Single | + + + | Baptism Affiliation | NRP | + + + | Race | White | + + + | Ethnic Group | Not or | + + + Author + + + | Author | [facility] | + + + | Organization | [facility] | + + + | Address [...] Team Providers + +------+ + | Care Editor Newspaper Name | Role | Phone | + +------+ + | Dustin Perez MD | PCP | | + +------+ + Reason for Visit + + + | Reason | Comments | + + + | Follow-up visit | | + + + Encounter Details +--------+ + + + + | Date | Type | Department | Care Team | Description | +--------+ + + + + | 05/04/ | Telephone-S | Orthopaedics | Cory Carmen, | Follow-up visit | | 2020 | cheduled | [facility] | [address] | | | | | for Health and | [facility] [place] | | | | | Healing [address] | [address] | | | | | [address] [facility] for | [phone] | | | | | Health and Healing, | | | | | | [facility] | | | | | | Floor [place], [place] | | | | | | [address] | | | | | | [phone] | | | +--------+ + + + [...] encounter Progress Notes Cory Carmen MD - 05/04/2020 3:30 PM PDTFormatting of this note might be different fro joseph the original. [facility] Orthopa[facility] Trauma [facility] Today's date: 10/14/2019 Orthopaedic Diagnoses: MRSA osteomyelitis of left calc/talus/tibia, Failed ankle fusion Surgeries: - 09/04/2019: LLE I&D, HWR of hindfoot IMN, Abx IMN, 4 compartment fasciotomies - 09/06/2019: LLE I&D, fasciotomy closure PHONE VISIT FOR COVSUDHAKAR S: Mr. Monty An is a 69 year old male, he is now 6 months since surgery. Currently he is wlaking and doing great by his report. He is on oral suppression antibitoics with plna to do this until October 2020 per his ID doctor locally. . He is still taking [facility] woun d care. The wounds are almost completely healed and he is not worried about them. He reports that he has never smoked. He has never used smokeless tobacco. ROS: he is not complaining of any syncope, chest pain, SOB, abdominal pain, nausea, bowel or bladder issues . O: Vitals: There were no vitals taken for this visit. None due to phone visit. 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 Agreed that can address hardware failure issues if t hey develop and at this point in time there is more benefit of beginning full weight bearing . We are likely to leave this antibitoic dante forever. He seems to understand and we both w mckenna to avoid future surgeries. 1. Activity: full weight bearing as tolerated. No limits 2. Medication changes: None 3. F/U: 6 months (may call to re-schedule if weather is bad) 4. Repeat pre clinic x-rays: left ankle 3 views Cory Carmen MD [facility] AT [facility] [address] Mailcode: [address] [place] [address] The patients encounter was accomplished via a telephone call today due to COVID-19 precauti onary measures to limit the patient's unnecessary exposure. Patient agrees to a telephone en counter for today's visit. They understand they may be responsible for the balance after ins urance processes the claim. The visit took place via telephone when I was located at a critical access hospital site at [facility]. The patient stated they were located at their home in [place] at the time o f the telephone visit. Time spent on the call: 14 min. Orders Placed This Encounter X-RAY ANKLE 3 VIEWS LEFT OUTSIDE RADIOLOGY - X-RAY documented in this en counter Plan of Treatment + +---------+--------+ + + | Name | Type | Priori | Associated Diagnoses | Order Schedule | | | | ty | | | + +---------+--------+ + + | X-RAY ANKLE 3 VIEWS | Imaging | Routin | Ankle pain, | Expected: | | LEFT | | e | unspecified | 04/30/2020, Expires: | | | | | chronicity, | 05/30/2021 | | | | | unspecified | | | | | | laterality | | + +---------+--------+ + + documented as [...] + + documented in this encounter Results OUTSIDE RADIOLOGY - X-RAY (05/03/2020 12:00 AM PDT) + + + | Narrative | Performed At | + + + | | | + + + documented in [...]
--- OUTSIDE RECORDS SUMMARY | ~2020-05-24 | XMS | Encounter Summary ---
Demographics + + + | Address | [address] | | | [place] [address] | + + + | Home Phone | | + + + | Preferred Language | Unknown | + + + | Marital Status | Single | + + + | Religion Affiliation | NRP | + + + | Race | White | + + + | Ethnic Group | Not or | + + + Author + + + | Author | [facility] | + + + | Organization | [facility] | + + + | [...] Providers + +------+ + | Care Tool Maker Apprentice Name | Role | Phone | + [...] | | | | [facility] | [place], [place] | | | | | [address], [address] floor | [address] | | | | | [place], [place] | [phone] | | | | | [address] | | | | | | [phone] | | | +--------+ + + + [...]
--- OUTSIDE RECORDS SUMMARY | ~2020-05-24 | XMS | Encounter Summary ---
Demographics + + + | Address | [address] | | | [place] [address] | + + + | Home Phone [...] Author + + + | Author | [facility] | + + + | Organization | [facility] | + + + | [...] Team Providers + +------+ + | Care Steam Table Attendant Name | Role | Phone | + +------+ + | Dustin Perez MD | PCP | | + +------+ + Encounter Details +--------+ + + + + | Date | Type | Department | Care Team | Description | +--------+ + + + + | 09/25/ | Documentati | Infectious | Trish Baum, | | | 2019 | on | [facility] at [facility] | [address] | | | | | [address] | [address] | | | | | [address] [facility] | [place], [place] | | | | | [address], [facility] floor | [address] | | | | | [place], [place] | [phone] | | | | | [address] | | | | | | [phone] | | | +--------+ + + + [...]
--- OUTSIDE RECORDS SUMMARY | ~2020-05-24 | XMS | Encounter Summary ---
Demographics + + + | Address | [address] | | | [place] [address] | + + + | Home Phone [...] + + + | Author | [facility] | | | and [place] | + + + | Organization | [facility] | | | [...] Team Providers + +------+ + | Care Loan Analyst Name | Role | Phone | + +------+ + | Dustin Perez MD | PCP | | + +------+ + Encounter Details +--------+ + + + + | Date | Type | Department | Care Team | Description | +--------+ + + + + | 04/02/ | Orders Only | [facility] | Conversion | | | 2018 | | CONVERSION [address] | Transaction, | | | | | [address] | Provider Unknown | | | | | [place], [place] | [phone] | | | | | [address] | | | | | | [phone] | | | +--------+ + + + [...]
--- OUTSIDE RECORDS SUMMARY | ~2020-05-24 | XMS | Encounter Summary ---
Demographics + + + | Address | [address] | | | [place] [address] | + + + | Home Phone [...] Team Providers + +------+ + | Care Lap Grinder Name | Role | Phone | + [...] + + | 09/03/ | Hospital | [facility] [address] | Ariana Guillen, | | | 2019 - | Encounter | [address] | [address] | | | | | 12/S31 [facility] | [address] | | | 09/17/ | | [facility] [place], | [place], [place] | | | 2019 | | [place] [address] | [address] | | | | | [phone] | [phone] | | | | | | | | | | | | Tiffanie Huerta, | | | | | | [address] | | | | | | [address] | | | | | | [place], [place] | | | | | | [address] | | | | | | [phone] | | | | | | | | | | | | Abhilash Fatima MD | | | | | | [address] [facility] | | | | | | [facility], | | | | | | [place] [address] | | | | | | [phone] | | | | | | | | | | | | Elizabeth Cobos, | | | | | | [address] [facility] | | | | | | [facility] | | | | | | [place], [place] | | | | | | [address] | | | | | | [phone] | | | | | | | | | | | | To Henriquez MD | | | | | | [address] [facility] | | | | | | [facility], | | | | | | [place] [address] | | | | | | [phone] | | | | | | | [...] Hemphill MD - 09/17/2019 12:07 PM PST [facility] Discharge Summary Discharging Provider: Johnathan Hemphill MD Discharging Attending Physician: To Henriquez MD PCP: Rio Huerta MD Admission Date: 09/03/2019 Discharge Date: 09/17/2019 Hospital Stay: 14 day(s) Discharge Location: [facility] [place] PH. [phone] [facility] FOLLOW UP NEEDS: 1) Infectious Disease, [facility], ~10/08/2019 2) Orthopedi LILIYA carcamo/[facility] Principal Diagnosis: #) Necrotizing [...] hindfoot. 5. Placement of an external tissue configuration management analyst, area other than breast. 6. Placement of [...] vancomycin trough levels - ID F/U in [place], ~10/08 timeframe - Wound check and suture removal by 09/26/2019; OK for SNF to remove sutures - Ortho F/U ~10/21 timeframe w/ Dr. Carmen in [facility] - Activity restrictions: LLE: NWB, [...] BLED 4. 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 decided against anticoagulation; on 81 mg aspirin [...] follow/manage patient "I certify that post-hospital inpatient shelter facility care is medically necessar y on a continuing basis for treatment of the same condition for which inpatient acute hospit al care was received." JOHNATHAN HEMPHILL MD Discharge Destination - Selection Complete Service Provider Request Status Selected Services Address Phone Number Fax Number Hellen Calvillo Selected [facility] [address], [place] [address] Home [...] Surgery Why: For wound re-check Contact information [facility] [place] [address] RIO HUERTA MD. Go on 09/24/2019. Specialty: Family Medicine Why: Appt: Tuesday, September 24, 2019 @ 08:40am. Address: [address] [place] [address], [address], [place], [place] Contact information [facility] [address] [place] [address] Surya Coffman MD. Go on 09/30/2019. Why: Appt: Monday, September 30, 2019 @ 09:45am Contact information [address] [place], [place] [phone] Contact information for after-discharge care Discharge Destination [facility] . Service: [facility]pc Contact information [address] [place] [id number] Discharge Physical Exam: Last 24 hour min/max [...] PGY - 3 | Internal Medicine | [id number] [facility] [place] Associated attestation - To Henriquez MD - [...] Primary Surrogate Decision Maker Josué An son [phone] TO HENRIQUEZ MD [address] counseling aide Division of Hospital Medicine Department of Medicine [address] 12/[address]31 [place] [address] documented in this encounter Discharge Instructions Discharge [...] follow/manage patient "I certify that post-hospital inpatient shelter facility care is medically necessar y on [...] (per patient w ++ 1st degree FH) Guest Services Coordinator re: skin/foot care (a la DM) 10) Alcohol use disorder, mild, in sustained remission, abuse 11) Encounter for long-term (current) use of antibiotics SURROGATE DECISION MAKER Surrogate Decision Maker Primary Surrogate Decision Maker Josué An son [phone] TO HENRIQUEZ MD [address] counseling aide Division of [facility] Medicine Department of Medicine [address] [place] [address] Amber Wan MD - 1 11/16/2018 7:13 [...] care, follow up recs - follow up: [facility] ID faculty with preference to schedule with [...] BLED 4. 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 - held asa in s/o surgery, has been restarted - continue digoxin - goal resting rate <110 # bilateral lower extremity swelling Unclear etiology. Was seeing fish hatchery superintendent who is prescribing torsemide 10 mg daily [...] Dispo: patient ready to discharge tomorrow to [facility] in [place]. Code Status: Full Code Surrogate Decision Maker Primary Surrogate Decision Maker Josué An son [phone] This patient was staffed with Dr. To [...] there are not currnet signs of decompensation Guest Services Coordinator on his 'near miss' and importance of good 'liver care' in future 9) Neuropathy, hereditary sensory (per patient w ++ 1st degree FH) Not noted in 'history' but with suggestion of pes cavus, and ++ family history it does r aise the qn of Vsupxkl-Teduo-Melkf Could have been contributor to osteo Guest Services Coordinator re: skin/foot care (a la DM) 10) Alcohol use disorder, mild, in sustained remission, abuse 11) Encounter for long-term (current) use of antibiotics SURROGATE DECISION MAKER Surrogate Decision Maker Primary Surrogate Decision Maker Josué An son [phone] TO HENRIQUEZ MD [facility] 4A counseling aide Division of Hospital Medicine Department of Medicine [facility] & [address] 12/[facility] [place] [phone] Amber Wan MD - 1 11/15/2018 6:26 [...] care, follow up recs - follow up: [facility] ID faculty with preference to schedule with [...] BLED 4. 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 - held asa in s/o surgery, has been restarted - continue digoxin - goal resting rate <110 # bilateral lower extremity swelling Unclear etiology. Was seeing fish hatchery superintendent who is prescribing torsemide 10 mg daily [...] used majority of his medicare SNF days, patient case manager working to determine whethe r paying out of pocket is an option vs investigate other dispo options. Code Status: Full Code Surrogate Decision Maker Primary Surrogate Decision Maker Josué An son [phone] This patient was staffed with Dr. To [...] care, follow up recs - follow up: [facility] ID faculty with preference to schedule with [...] BLED 4. 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 - held asa in s/o surgery, has been restarted - continue digoxin - goal resting rate <110 # bilateral lower extremity swelling Unclear etiology. Was seeing fish hatchery superintendent who is prescribing torsemide 10 mg daily [...] used majority of his medicare SNF days, patient case manager working to determine whethe r paying out of pocket is an option vs investigate other dispo options. Code Status: Full Code Surrogate Decision Maker Primary Surrogate Decision Maker Josué An son [phone] This patient was staffed with Dr. To [...] iciency: Aug 26, 2018: [facility] [email or web address]) 7) Essential hypertension 8) "Cirrhosis, Laennec's" (HCC) [...] it does r aise the qn of Rsethdz-Gydmc-Lrbuw Could have been contributor to osteo Guest Services Coordinator re: skin/foot care (a la DM) 10) Alcohol use disorder, mild, in sustained remission, abuse 11) Encounter for long-term (current) use of antibiotics SURROGATE DECISION MAKER Surrogate Decision Maker Primary Surrogate Decision Maker Josué An son [phone] TO HENRIQUEZ MD [address] counseling aide Division of [facility] Medicine Department of Medicine [facility] [address] [place] [phone] To Leach MD - 09/13 12:33 PM [...] stenosis or insuff iciency: Aug 26, 2018: [facility]) 7) Essential hypertension 8) "Cirrhosis, Laennec's" (HCC) [...] it does r aise the qn of Adhynxj-Eygps-Ihmeg Could have been contributor to osteo Guest Services Coordinator re: skin/foot care (a la DM) 10) Alcohol use disorder, mild, in sustained remission, abuse 11) Encounter for long-term (current) use of antibiotics SURROGATE DECISION MAKER Surrogate Decision Maker Primary Surrogate Decision Maker Josué An son [phone] TO HENRIQUEZ MD [address] counseling aide Division of Hospital Medicine Department of Medicine [facility] & [address] [place] [address] Johnathan Roach MD - 12/2018 11:07 AM [...] care, follow up recs - follow up: [facility] ID faculty with preference to schedule with [...] BLED 4. 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 - held asa in s/o surgery, has been restarted - continue digoxin - goal resting rate <110 # bilateral lower extremity swelling Unclear etiology. Was seeing fish hatchery superintendent who is prescribing torsemide 10 mg daily [...] used majority of his medicare SNF days, patient case manager working to determine whethe r paying out of pocket is an option vs investigate other dispo options. Code Status: Full Code Surrogate Decision Maker Primary Surrogate Decision Maker Josué An son [phone] This patient was staffed with Dr. To Henriquez, who agrees with the assessment and plan unle ss otherwise stated. Johnathan Hemphill MD PGY - 3 | Internal Medicine | [id number] [facility] [place] untTo justice MD - 11/2018 8:01 AM [...] stenosis or insuff iciency: Aug 26, 2018: [facility]) 7) Essential hypertension 8) "Cirrhosis, Laennec's" (HCC) [...] it does r aise the qn of Vlhiukc-Qewfw-Uoutr Could have been contributor to osteo Guest Services Coordinator re: skin/foot care (a la DM) 10) Alcohol use disorder, mild, in sustained remission, abuse 11) Encounter for long-term (current) use of antibiotics SURROGATE DECISION MAKER Surrogate Decision Maker Primary Surrogate Decision Maker Josué An son [phone] I spent ~40 minutes in the care of this patient. Greater than 50% of the time was spent co unseling and coordination of care, including visit x 3; extensive chart review (on ramos) TO HENRIQUEZ MD [address] counseling aide Division of Hospital Medicine Department of Medicine [facility] & [address] [place] [phone] Gauri Walsh MD - 09/12/2019 7:07 AM [...] care, follow up recs - follow up: [facility] ID faculty with preference to schedule with [...] BLED 4. 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 - held asa in s/o surgery, has been restarted - continue digoxin - goal resting rate <110 # bilateral lower extremity swelling Unclear etiology. Was seeing fish hatchery superintendent who is prescribing torsemide 10 mg daily [...] used 90/100 of his medicare SNF days, patient case manager working to determine whether paying out of pocket is an option vs investigate other dispo options. Code Status: Full Code Surrogate Decision Maker Primary Surrogate Decision Maker Josué An son [phone] This patient was staffed with Dr. To Henriquez, who agrees with the assessment and plan unle ss otherwise stated. Gauri Strickland MD Internal Medicine [id number] signed by To Henriquez MD at 09/12/2019 [...] care, follow up recs - follow up: [facility] ID faculty with preference to schedule with [...] BLED 4. 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 decided against anticoagulation; on 81 mg aspirin daily (used to be 325 but reduced to 81 12/14 "GI problems"). - held asa in s/o surgery, has been restarted - continue digoxin - goal resting rate <110 # bilateral lower extremity swelling Unclear etiology. Was seeing fish hatchery superintendent who is prescribing torsemide 10 mg daily [...] used 90/100 of his medicare SNF days, patient case manager working to determine whether paying out of pocket is an option vs investigate other dispo options. Code Status: Full Code Surrogate Decision Maker Primary Surrogate Decision Maker Josué An son [phone] This patient was staffed with Dr. Huerta, [...] eager to contin ue conversation with his patient case manager about discharge planning. Physical Examination: [...] care, follow up recs - follow up: [facility] ID faculty with preference to schedule with [...] BLED 4. 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 - held asa in s/o surgery, has been restarted - continue digoxin - goal resting rate <110 # bilateral lower extremity swelling Unclear etiology. Was seeing fish hatchery superintendent who is prescribing torsemide 10 mg daily [...] used 90/100 of his medicare SNF days, patient case manager working to determine whether paying out of pocket is an option vs investigate other dispo options. Code Status: Full Code Surrogate Decision Maker Primary Surrogate Decision Maker Josué An son [phone] This patient was staffed with Dr. Huerta, who agrees with the assessment and plan unless otherwise stated. Gauri Strickland MD Internal Medicine [id number] signed by Tiffanie Huerta MD at 09/10/2019 [...] has not been an issue. Enjoys working [facility] physical therapy. Denies dyspnea, nausea, abdominal pain, constipation. Fine with getting PICC line and understands need for manager terminal IV antibiotics. Physical Examination: Last 24 hour [...] care, follow up recs - follow up: [facility] ID faculty with preference to schedule with [...] BLED 4. 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 - held asa in s/o surgery, has been restarted - continue digoxin - goal resting rate <110 # bilateral lower extremity swelling Unclear etiology. Was seeing fish hatchery superintendent who is prescribing torsemide 10 mg daily [...] Primary Surrogate Decision Maker Josué An son [phone] This patient was staffed with Dr. Huerta, who agrees with the assessment and plan unless otherwise stated. Gauri Strickland MD Internal Medicine [id number] signed by Tiffanie Huerta MD at 09/10/2019 [...] hindfoot. 5. Placement of an external tissue configuration management analyst, area other than breast. 6. Placement of [...] vancomycin, until further notice, ID consult for manager terminal plan 5. Special Concerns: case managment for discharge planning, likely discharge to SNF in [place] Wound Care consulted 6. Dressings/Drains: DRESSING CARE [...] 2 seconds Aidan Antonio MD Orthopedic Surgery [id number] 11:15 AM Cory Shaikh MD - 09/09/2019 [...] the plan as listed. Cory Carmen MD [facility] [address]A [address] [facility] [address] [place] [address] Cory Carmen Gauri Walsh MD - 09/08/2019 7:27 AM PDT General Internal Medicine 3 Progress Note 24 Hour Events: Pharmacy completed med rec via [facility] records per pharm: "Torsemide, potassium chloride, A SA, MVI, vitamin B12, and thiamine were added to FEATURE WRITER medication list. Of note, patient has n [...] BLED 4. 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 decided against anticoagulation; on 81 mg aspirin daily (used to be 325 but reduced to 81 2/ "GI problems"). - held asa in s/o surgery, has been restarted - continue digoxin - goal resting rate <110 # bilateral lower extremity swelling Unclear etiology. Was seeing fish hatchery superintendent who is prescribing torsemide 10 mg daily [...] Primary Surrogate Decision Maker Josué An son [phone] This patient was staffed with Dr. Huerta, who agrees with the assessment and plan unless otherwise stated. Gauri Strickland MD Internal Medicine [id number] signed by Tiffanie Huerta MD at 09/08/2019 [...] present. - he has been comfortable at [facility] assisted living with aggressive PT in the past [facility] is close to [place], his home. Deepthi Collazo AGACNP - 09/08/2019 [...] hindfoot. 5. Placement of an external tissue configuration management analyst, area other than breast. 6. Placement of [...] vancomycin, until further notice, ID consult for manager terminal plan 5. Special Concerns: case managment for discharge planning, likely discharge to SNF in [place] Wound Care consulted 6. Dressings/Drains: DRESSING CARE [...] capillary refill < 2 seconds Deepthi Collazo, [facility] Orthopaedic Trauma Surgery Pager [phone] Associated attestation - Cory Carmen MD - [...] input. I will be following this patient detention, rather than Dr cochran or Elan. I discussed the diagnosis, imaging studies, treatment plan and prognosis with the patient and resident. I have reviewed and the above note and agree with the plan. Please do not he sitate to call me for questions. Cory Carmen MD [facility] [address] [place] [address] Arnold Taylor MD - 09/07/2019 6:22 PM PDTFormatting of this note might be differ ent from the original. Orthopaedic Surgery Progress Note Patient: /Age: MRN: CSN: Date: Admission Date: Hospital Day: Attending Physician: Monty An 1950 69 y.o. [id number] 09/07/2019 09/03/2019 4 Garth Cochran MD Procedure(s) [...] SpO2 98%, BMI 27.94 kg/(m^2). Facility age [facility] for growth percentiles is 18 years. Exam: General: Well appearing, NAD CV/Resp: Breathing comfortably, Neurologic: Awake and alert MSK: LLE Dressings c/d/i Insensate about the lower leg/foot Wiggles toes WWP distally ARNOLD TAYLOR MD Pager: [phone] 09/07/2019 Associated attestation - Garth Cochran MD [...] appetite good, concerns are c entered around manager terminal places, specifically timeline of rehab and wound healing, as well a s what recovery will look like if he were to get a BKA. Reassured that no decisions need to be made now, can involve case management Sunday to look at SNFs. He has been to [facility] in [place] previously. Physical Examination: Last 24 hour min/max [...] BLED 4. 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 - held asa in s/o surgery, restart - continue digoxin - goal resting rate <110 # bilateral lower extremity swelling Unclear etiology. Was seeing fish hatchery superintendent who is prescribing torsemide 10 mg daily [...] Primary Surrogate Decision Maker Josué An son [phone] This patient was staffed with Dr. Huerta, who agrees with the assessment and plan. Gauri Strickland MD Internal Medicine [id number] signed by Tiffanie Huerta MD at 09/07/2019 [...] as outlined in team note. - [facility] in [place] would be a reasonable SNF for him [...] seco nds Aidan Antonio MD Orthopedic Surgery [id number] 7:37 AM 09/06/2019 Gauri Walsh MD - [...] DM); HAS BLED 4. Former discussions with [facility] fish hatchery superintendent decided against anticoagulation; on 81 mg aspirin daily (used to be 325 but r educed to 81 2/ "GI problems"). - hold asa in s/o surgery - continue digoxin - goal resting rate <110 # bilateral lower extremity swelling Unclear etiology. Was seeing fish hatchery superintendent who is prescribing torsemide 10 mg daily [...] Primary Surrogate Decision Maker Josué An son [phone] This patient was staffed with Dr. Huerta, who agrees with the assessment and plan. Gauri Strickland MD Internal Medicine [id number] signed by Tiffanie Huerta MD at 09/06/2019 [...] Orthopaedic Attending: Monty An 1950 69 y.o. [id number] 09/05/2019 09/03/2019 2 Olivier Ansari MD Diagnosis(es): [...] to make a follow up appointment in [facility] 2 weeks with ORTHO TRAUMA & [...] es pink and warm. Noel Baptiste MD [facility] Department of Orthopaedics & Rehabilitation [address] [facility] Mail Code: OP31 [place] [address] Associated attestation - Olivier Ansari MD - [...] DM); HAS BLED 4. Former discussions with [facility] fish hatchery superintendent decided against anticoagulation; on 81 mg aspirin daily (used to be 325 but r educed to 81 2/2 "GI problems"). - hold asa in s/o surgery - continue digoxin - goal resting rate <110 # bilateral lower extremity swelling Unclear etiology. Was seeing fish hatchery superintendent who is prescribing torsemide 10 mg daily [...] Primary Surrogate Decision Maker Josué An son [phone] This patient was staffed with Dr. Huerta, who agrees with the assessment and plan. Gauri Strickland MD Internal Medicine [id number] signed by Tiffanie Huerta MD at 09/06/2019 [...] BLED 4 . Former discussions with his fish hatchery superintendent decided against anticoagulation; on 81 mg aspirin daily (used to be 325 but reduced to 81 2/2 "GI problems"). - hold asa in s/o surgery - continue digoxin - goal resting rate <110 # bilateral lower extremity swelling Unclear etiology. Was seeing fish hatchery superintendent who is prescribing torsemide 10 mg daily [...] Primary Surrogate Decision Maker Josué An son [phone] This patient was staffed with Dr. Huerta, [...] care at facility where he lives in [facility], was discharged to home I called and spoke with night RN at [facility] He discharged home yesterday from facility They had noted exposed hardware last week, cultured wound which has not grown and started o n PO levofloxacin 500mg daily and augmentin on 09/02 He was seen by Dr Castellano at [facility] who requested transfer to [facility] for orthopedic eval From last cardiology note [...] within 24 hours. Please refer to excellent internal grinder set up operator H&P for full problem based plan. ILIR SPIVEY MD Internal Medicine, PGY-3 Pager: [phone] documented in this encou nter Plan of [...] | + + + + + | [facility] | [address] | [place] [address] | | | SERVICES, CORE | DWIGHT [...] | | | | | | gy, [facility] | | | | [facility] | | | | | [...] | + + + + + | [facility] | [address] [place] | [place] [address] | | | PATHOLOGY | [address] [...] | + + + + + | [facility] | [address] | [place] [address] | | | FERMÍN ZABALA | DWIGHT [...] | + + + + + | [facility] | [address] | [facility] [address] | | | FERMÍN ZABALA | DWIGHT [...] | | | LABORATORY | | | CANADIAN | | | SERVICES, | | | [...] | + + + + + | [facility] | [address] | [place] [address] | | | VJ, FERMÍN | DWIGHT [...] | + + + + + | [facility] | [address] | [place] [address] | | | SERVICES, CORE | DWIGHT [...] | + + + + + | [facility] | [address] | [place] [address] | | | SERVICES, CORE | PARK [...] 1.03 | 0.90 - 1.20 INR | [facility] | | | | | | LABORATORY [...] | + + + + + | [facility] | [address] | [place] [address] | | | SERVICES, CORE | DWIGHT [...] [facility] | [address] | [place] [address] | | | SERVICES, CORE | PARK [...] [facility] | [address] | [place] [address] | | | VJ, FERMÍN | DWIGHT [...] | | | LABORATORY | | | CANADIAN | | | SERVICES, | | | [...] | + + + + + | [facility] | [address] | [place] [address] | | | SERVICES, CORE | DWIGHT [...] [facility] | [address] | [place] [address] | | | SERVICES, CORE | PARK [...] | | | LABORATORY | | | CANADIAN | | | SERVICES, | | | [...] MDRD equation recommended by the National | [facility] | | Kidney Disease Education Program. Estimated [...] | + + + + + | [facility] | [address] | [place] [address] | | | SERVICES, [facility] | [address] | | | + + + + + X-RAY PORTABLE CHEST PICC LINE CHECK (09/09/2019 7:29 PM PDT) + + | Specimen | + + | | + + + + + | Narrative | Performed At | + + + | EXAM: NM CHEST PICC LINE CHECK HISTORY: Verify Catheter [...] Interface - 09/09/2019 8:46 PM PDT EXAM: NM CHEST | | PICC LINE CHECK HISTORY: [...] At | + + + | EXAM: NM CHEST 1 VIEW HISTORY: PICC placement COMPARISON: [...] Interface - 09/09/2019 4:46 PM PDT EXAM: NM CHEST 1 | | VIEW HISTORY: PICC [...] Diagnosis: Cellulitis LE Procedure location: Unit: Room: [facility] | | | Providers: Attending name: Attending [...] correct patient, | | | procedure, equipment, collection support specialist and site/side marked as | [...] vein. Catheter lot number: | | | [id number] with a length of 55 cm was [...] [facility] | [address] | [place] [address] | | | SERVICES, CORE | PARK [...] [facility] | [address] | [place] [address] | | | SERVICES, CORE | PARK [...] | + + + + + | [facility] | [address] | [place] [address] | | | VJ, FERMÍN | DWIGHT [...] | + + + + + | [facility] | [address] | [place] [address] | | | SERVICES, CORE | DWIGHT [...] LABORATORY | [address] | [place] [address] | | | SERVICES, CORE | PARK [...] | | | LABORATORY | | | CANADIAN | | | SERVICES, | | | [...] | + + + + + | [facility] | [address] | [place] [address] | | | SERVICES, FERMÍN | PARK [...] | + + + + + | [facility] | [address] | [place] [address] | | | VJ, FERMÍN | PARK [...] [facility] | [address] | [place], [place] | | | [facility] | [address] | [address] | | | TESTS | | | [...] | + + + + + | [facility] | [address] | [place] [address] | | | VJ, FERMÍN | DWIGHT [...] | | | LABORATORY | | | CANADIAN | | | SERVICES, | | | [...] | + + + + + | [facility] | [address] | [place] [address] | | | SERVICES, CORE | DWIGHT [...] [facility] | [address] | [place] [address] | | | SERVICES, | [address] [...] [facility] | [address] | [place] [address] | | | SERVICES, | [address] [...] Note | + + | Service Account, MoPals Res In Interface - 09/05/2019 4:56 PM [...] | | + +---------+ + + | [facility] | | | | | [facility] | | | | [...] | + + + + + | [facility] | [address] | [place] [address] | | | SERVICES, CORE | PARK [...] [facility] | [address] | [place] [address] | | | SERVICES CORE | DWIGHT [...] [facility]PT [facility] | [address] | [place], [place] | | | CARDIOLOGY | [address] | [address] | | + + + + + [...] [facility] | [address] | [place], [place] | | | [facility] | [address] | [address] | | | TESTS | | | [...] | | | | (A) | | [facility] | | + + + [...] B for complete identification and susceptibilities | [facility] | | Enterococcus faecalis Unable to continue [...] + | [facility] - | [address] | [place] [address] | | | [place] | | | | + + + [...] | + + + + + | [facility] - | [address] | [place] [address] | | | [place] | | | | + + + [...] B for complete identification and susceptibilities | [place] | | Enterococcus faecalis Refer to culture [...] + | [facility] - | [address] | [place] [address] | | | [place] | | | [...] squamous epithelial cells Rare polymorphonuclear cells | [facility] | | No organisms seen [...] + | [facility] - | [address] | [place] [address] | | | [place] | | | [...] + | [facility] | [address] | [place] [address] | | | [place] | | | [...] [facility] | [address] | [place] [address] | | | SERVICES, CORE | DWIGHT [...] | + + + + + | [facility] | [address] | [place] [address] | | | SERVICES, CORE | PARK [...] | | | LABORATORY | | | CANADIAN | | | SERVICES, | | | [...] | + + + + + | [facility] | [address] | [place] [address] | | | FERMÍN ZABALA | PARK [...] [facility] | [address] | [place] [address] | | | SERVICES, CORE | PARK [...] | + + + + + | [facility] | [address] | [place] [address] | | | FERMÍN ZABALA | DWIGHT [...] | [facility] | | considered for monitoring detention glycemic control in patients with: | LABORATORY [...] | + + + + + | [facility] | [address] | [place] [address] | | | VJ, SPECIAL | DWIGHT [...] - | | | | | | [place] | | + +---------+ + + + + + | Specimen | + + | Blood - Blood | | (substance) | + + + + + + + | Performing | Address | City/State/Zipcode | Phone Number | | Organization | | | | + + + + + | [email or web address] | [address] | [place] [address] | | | [place] | | | [...] | + + + + + | [facility] | [address] | [place] [address] | | | SERVICES, CORE | PARK [...] | + + + + + | [facility] | [address] | [place] [address] | | | FERMÍN ZABALA | DWIGHT [...] | + + + + + | [facility] | [address] | [place] [address] | | | SERVICES, CORE | PARK [...] | + + + + + | [facility] | [address] | [place] [address] | | | SERVICES, CORE | DWIGHT [...] [facility] | [address] | [place], [place] | | | [facility] | [facility] | [address] | | | TESTS | | | [...] | + + + + + | [facility] | [address] | [place] [address] | | | SERVICES, CORE | [address] | | | + + + + + ETHANOL (ALCOHOL), BLOOD (09/03/2019 7:24 PM PDT) + +-------+ + + + | Component | Value | Ref Range | Performed | Pathologist | | | | | At | Signature | + +-------+ + + + | ETHANOL | <10 | <10 mg/dL | [facility] | | | (ALCOHOL) | | | [...] | + + + + + | [facility] | [address] | [place] [address] | | | SERVICES, FERMÍN | DWIGHT [...] | + + + + + | [facility] | [address] | [place] [address] | | | SERVICES, CORE | DWIGHT [...] [facility] | [address] | [place] [address] | | | SERVICES, CORE | PARK [...] | | | LABORATORY | | | CANADIAN | | | SERVICES, | | | [...] MDRD equation recommended by the National | [facility] | | Kidney Disease Education Program. Estimated [...] | + + + + + | [facility] | [address] | [place] [address] | | | SERVICES, CORE | DWIGHT [...] [facility] | [address] | [place] [address] | | | SERVICES, | [address] [...] | + + + + + | [facility] | [address] | [place] [address] | | | SERVICES, CORE | DWIGHT [...] [facility] | [address] | [place] [address] | | | SERVICES, CORE | PARK [...] | + + + + + | [facility] | [address] | [place] [address] | | | SERVICES, CORE | DWIGHT [...] | | | | | NEEDED, Starting [facility] 09/04/19 at | | 19 4:05 [...] | | | | First dose on [facility] 09/04/19 at | | AM PST [...] PDT | | | | | Starting [facility] 09/04/19 at 1845, | | | | | | | Until [facility] 09/17/19 at 1808, | | | | [...] | | | | | NEEDED, Starting [facility] 09/04/19 at | | | | [...]
--- OUTSIDE RECORDS SUMMARY | ~2020-05-24 | XMS | Encounter Summary ---
Demographics + + + | Address | [address] | | | [place] [address] | + + + | Home Phone | | + + + | Preferred Language | Unknown | + + + | Marital Status | Single | + + + | Sikh Affiliation | NRP | + + + | Race | White | + + + | Ethnic Group | Not or | + + + Author + + + | Author | [facility] | + + + | Organization | [facility] | + + + | [...] Team Providers + +------+ + | Care Geological Manager Name | Role | Phone | [...] [address] | | | | | [facility] | [address] | | | | | Hospital Admitting | [place], [place] | | | | | Desk Located on the | [address] | | | | | 9th floor | [phone] | | | | | [place], [place] | | | | | | [address] | Fannie Duckworth, | | | | | | [address] | | | | | | [address] | | | | | | [place], [place] | | | | | | [address] | | | | | | [phone] | | | | | | | [...] 09/03/191907 by | | | | | wGyn Craw | | +--------+ + + + [...]
--- OUTSIDE RECORDS SUMMARY | ~2020-05-24 | XMS | Encounter Summary ---
Demographics + + + | Address | [address] | | | [place] [address] | + + + | Home Phone | | + + + | Preferred Language | Unknown | + + + | Marital Status | Single | + + + | Jewish Affiliation | Unknown | + + + | Race | Unknown | + + + | Ethnic Group | Unknown | + + + Author + + + | Author | [facility] | | | and [place] | + + + | Organization | [facility] | | | [...] Team Providers + +------+ + | Care Electronics Worker Name | Role | Phone | [...] + + | 10/08/ | Telephone | [facility] | Heather Russo | Other (request lab | | 2019 | | INFECTIOUS DISEASE | AZAR De Oliveira | results) | | | | [address] | | | | | | [place] | | | | | | [address] | | | | | | [phone] | | | +--------+ + + + [...] per Dr Donovan. Advised Dr Nassar is information technology audit manager for [employer], supplied contact phone number. Outside Labs were done 10/03/19, 10/06/19 however they are in process of being entered into [employer]. elephone En counter - Scotty Donovan DO [...] been held/missed:no Managing Facility or Company: Beth Weeks Patient being treated for necrotizing soft tissue infection. Called [facility] to verify, nursing staff states dose is [...]
--- OUTSIDE RECORDS SUMMARY | ~2020-05-24 | XMS | Encounter Summary ---
Demographics + + + | Address | [address] | | | [place] [address] | + + + | Home Phone [...] + + + | Author | [facility] | + + + | Organization | [facility] | + + + [...] Team Providers + +------+ + | Care Proof Sorter Name | Role | Phone | + +------+ + | Dustin Perez MD | PCP | | + +------+ + Reason for Visit + + + | Reason | Comments | + + + | Medication | vancomycin trough | | management | | + + + | Infectious [...] management | | | | [address] | [address] | (vancomycin trough); | | | | [address] | [place], [place] | Infectious disease | | | | [place]as, [facility] floor | [address] | | | | | [place], [place] | [phone] | | | | | [address] | | | | | | [phone] | | | +--------+ + + + [...]
--- OUTSIDE RECORDS SUMMARY | ~2020-05-24 | XMS | Encounter Summary ---
Demographics + + + | Address | [address] | | | [place] [address] | + + + | Home Phone | | + + + | Preferred Language | Unknown | + + + | Marital Status | Single | + + + | Pentecostalism Affiliation | Unknown | + + + [...] Team Providers + +------+ + | Care Event Planning Manager Name | Role | Phone | [...] + + | 10/27/ | Documentati | [facility] | Jaspreet Gunderson, | Results | | 2019 | on | INFECTIOUS DISEASE | Liang Quintana MD | ([facility], | | | | [address] | [address] | [address]) | | | | [place], [place] | [place] [address] | | | | | [address] | [phone] | | | | | [phone] | | | +--------+ + + + [...]
--- OUTSIDE RECORDS SUMMARY | ~2020-05-24 | XMS | Clinical Summary ---
Demographics + + + | Address | [address] | | | [place] [address] | + + + | Home Phone | | + + + | Preferred Language | Unknown | + + + | Marital Status | Single | + + + | Zoroastrian Affiliation | NRP | + + + [...] Team Providers + +------+ + | Care Vacuum Caster Name | Role | Phone | + +------+ + | Dustin Perez MD | PCP | | + +------+ + Source Comments [facility] is fully live on both [facility] and [facility] InPatient.[facility] Allergies No Known Allergies Medications + + [...] Left: | JULISA | | 05/11/ | [id number] | | Gentamicin - | | Foot | | | 2020 | 355 / | | [id number]: Qty: 2 on | | | | | | /[id number] | | 09/04/2019 by Elan, | | | | | | [id number] | | Olivier Mills MD at [facility] | | | | | | | [...] | | | | | | | [address] | | + +--------+ +--------+ + +--------+ | [employer] MEDICARE | MODA | xxxxxxxxx | 11/01/ | [phone] | [address] | [address] | | SUPPLEMENT | MEDICA | | 2015-P | 4 | [phone] | | | | RE | | resent | | [place], | | | | SUPPLE | | | | [place] [address] | | | | MENT | | [...] | 1950 | [phone] | [place] [address] | | | ursula | | | [...]
--- OUTSIDE RECORDS SUMMARY | ~2020-05-24 | XMS | Encounter Summary ---
Demographics + + + | Address | [address] | | | [place] [address] | + + + | Home Phone | | + + + | Preferred Language | Unknown | + + + | Marital Status | Single | + + + | Congregation Affiliation | NRP | + + + | Race | White | + + + | Ethnic Group | Not or | + + + Author + + + | Author | [facility] | + + + | Organization | [facility] | + + + | Address [...] Team Providers + +------+ + | Care Teacher Cclc Name | Role | Phone | + [...] | | | 09/17/ | | [facility] [place], | [place], [place] | | | 2019 | | [place] [address] | [address] | | | | | [phone] | [phone] | | | | | | | | | | | | Tiffanie Huerta, | | | | | | [address] | | | | | | [address] | | | | | | [place], [place] | | | | | | [address] | | | | | | [phone] | | | | | | | | | | | | Abhilash Fatima MD | | | | | | [address] | | | | | | [facility], | | | | | | [place] [address] | | | | | | [phone] | | | | | | | | | | | | Elizabeth Cobos, | | | | | | [address] | | | | | | [facility] | | | | | | [place], [place] | | | | | | [address] | | | | | | [phone] | | | | | | | | | | | | To Henriquez MD | | | | | | [address] | | | | | | [facility], | | | | | | [place] [address] | | | | | | [phone] | | | | | | | [...] Hemphill MD - 09/17/2019 12:07 PM PST [facility] Discharge Summary Discharging Provider: Johnathan Hemphill MD Discharging Attending Physician: To Henriquez MD PCP: Rio Huerta MD Admission Date: 09/03/2019 Discharge Date: 09/17/2019 Hospital Stay: 14 day(s) Discharge Location: [facility] [place] PH. [phone] [facility] FOLLOW UP NEEDS: 1) Infectious Disease, [facility], ~10/08/2019 2) Orthopedi [facility] Principal Diagnosis: #) Necrotizing [...] hindfoot. 5. Placement of an external tissue film painter, area other than breast. 6. Placement of [...] vancomycin trough levels - ID F/U in [place], ~10/08 timeframe - Wound check and suture removal by 09/26/2019; OK for SNF to remove sutures - Ortho F/U ~10/21 timeframe w/ Dr. Carmen in [facility] - Activity restrictions: LLE: NWB, [...] BLED 4. Former discussion s with his fiber technician decided against anticoagulation; on 81 mg aspirin [...] follow/manage patient "I certify that post-hospital inpatient fci facility care is medically necessar y on [...] Surgery Why: For wound re-check Contact information [facility] [place] [phone] RIO HUERTA MD. Go on 09/24/2019. Specialty: Family Medicine Why: Appt: Tuesday, September 24, 2019 @ 08:40am. Address: [address] [place] [address], [address], [place], [place] Contact information [facility] [address] [place] [address] Surya Coffman MD. Go on 09/30/2019. Why: Appt: Monday, September 30, 2019 @ 09:45am Contact information [facility] [place], [place] [phone] Contact information for after-discharge care Discharge Destination [facility] . Service: Correction Contact information [address] [place] [id number] Discharge Physical Exam: Last 24 hour min/max [...] PGY - 3 | Internal Medicine | [id number] [facility] Associated attestation - To Henriquez MD - 09/18/2019 6:57 AM PST INPATIENT FACULTY PROGRESS NOTE - GM 3 Author; TO EHNRIQUEZ MD Attending Physician: To Henriquez MD Hospital [...] Primary Surrogate Decision Maker Josué An son [phone] TO HENRIQUEZ MD [address] tumble tail[employer] turret lathe operator Division of Hospital Medicine Department of Medicine [address] 12[address] [place] [phone] documented in this encounter Discharge Instructions Discharge [...] follow/manage patient "I certify that post-hospital inpatient fci facility care is medically necessar y on [...] | | | | | with hardware ([facility]) | | | | | [...] (per patient w ++ 1st degree FH) District Manager In Training re: skin/foot care (a la DM) 10) Alcohol use disorder, mild, in sustained remission, abuse 11) Encounter for long-term (current) use of antibiotics SURROGATE DECISION MAKER Surrogate Decision Maker Primary Surrogate Decision Maker Josué An son [phone] TO HENRIQUEZ MD [address] [employer] turret lathe operator Division of [facility] Medicine Department of Medicine [address] [place] [address] Amber Wan MD - 1 11/16/2018 7:13 [...] BLED 4. Former discussion s with his fiber technician decided against anticoagulation; on 81 mg aspirin daily (used to be 325 but reduced to 81 2/2 "GI problems"). - held asa in s/o surgery, has been restarted - continue digoxin - goal resting rate <110 # bilateral lower extremity swelling Unclear etiology. Was seeing fiber technician who is prescribing torsemide 10 mg daily [...] Dispo: patient ready to discharge tomorrow to [facility] in [place]. Code Status: Full Code Surrogate Decision Maker Primary Surrogate Decision Maker Josué An son [phone] This patient was staffed with Dr. To [...] there are not currnet signs of decompensation District Manager In Training on his 'near miss' and importance of good 'liver care' in future 9) Neuropathy, hereditary sensory (per patient w ++ 1st degree FH) Not noted in 'history' but with suggestion of pes cavus, and ++ family history it does r aise the qn of Etqasxn-Yfmrv-Emhup Could have been contributor to osteo District Manager In Training re: skin/foot care (a la DM) 10) Alcohol use disorder, mild, in sustained remission, abuse 11) Encounter for long-term (current) use of antibiotics SURROGATE DECISION MAKER Surrogate Decision Maker Primary Surrogate Decision Maker Josué An son [phone] TO HENRIQUEZ MD [facility] [address]A [place] turret lathe operator Division of Hospital Medicine Department of Medicine [facility] & [address] 12/[facility]1 [place] [phone] Amber Wan MD - 1 11/15/2018 6:26 [...] BLED 4. Former discussion s with his fiber technician decided against anticoagulation; on 81 mg aspirin daily (used to be 325 but reduced to 81 2/2 "GI problems"). - held asa in s/o surgery, has been restarted - continue digoxin - goal resting rate <110 # bilateral lower extremity swelling Unclear etiology. Was seeing fiber technician who is prescribing torsemide 10 mg daily [...] used majority of his medicare SNF days, vocational case manager working to determine whethe r paying out of pocket is an option vs investigate other dispo options. Code Status: Full Code Surrogate Decision Maker Primary Surrogate Decision Maker Josué An son [phone] This patient was staffed with Dr. To [...] BLED 4. Former discussion s with his fiber technician decided against anticoagulation; on 81 mg aspirin daily (used to be 325 but reduced to 81 2/2 "GI problems"). - held asa in s/o surgery, has been restarted - continue digoxin - goal resting rate <110 # bilateral lower extremity swelling Unclear etiology. Was seeing fiber technician who is prescribing torsemide 10 mg daily [...] used majority of his medicare SNF days, vocational case manager working to determine whethe r paying out of pocket is an option vs investigate other dispo options. Code Status: Full Code Surrogate Decision Maker Primary Surrogate Decision Maker Josué An son [phone] This patient was staffed with Dr. To [...] stenosis or insuff iciency: Aug 26, 2018: [facility]) 7) Essential hypertension 8) "Cirrhosis, Laennec's" (HCC) [...] it does r aise the qn of Jpdptsc-Ugjik-Jmjar Could have been contributor to osteo District Manager In Training re: skin/foot care (a la DM) 10) Alcohol use disorder, mild, in sustained remission, abuse 11) Encounter for long-term (current) use of antibiotics SURROGATE DECISION MAKER Surrogate Decision Maker Primary Surrogate Decision Maker Josué An son [phone] TO HENRIQUEZ MD [address] [employer] turret lathe operator Division of [facility] Medicine Department of Medicine [facility] [address] [place] [phone] To Leach MD - 09/13 12:33 PM [...] stenosis or insuff iciency: Aug 26, 2018: [facility]) 7) Essential hypertension 8) "Cirrhosis, Laennec's" (HCC) [...] it does r aise the qn of Jkdbpgv-Fyqdi-Ktohu Could have been contributor to osteo District Manager In Training re: skin/foot care (a la DM) 10) Alcohol use disorder, mild, in sustained remission, abuse 11) Encounter for long-term (current) use of antibiotics SURROGATE DECISION MAKER Surrogate Decision Maker Primary Surrogate Decision Maker Josué An son [phone] TO HENRIQUEZ MD [address] tum[employer] [place] turret lathe operator Division of Hospital Medicine Department of Medicine [facility] & [address] [place] [address] Johnathan Roach MD - 12/2018 11:07 AM [...] BLED 4. Former discussion s with his fiber technician decided against anticoagulation; on 81 mg aspirin daily (used to be 325 but reduced to 81 2/2 "GI problems"). - held asa in s/o surgery, has been restarted - continue digoxin - goal resting rate <110 # bilateral lower extremity swelling Unclear etiology. Was seeing fiber technician who is prescribing torsemide 10 mg daily [...] used majority of his medicare SNF days, vocational case manager working to determine whethe r paying out of pocket is an option vs investigate other dispo options. Code Status: Full Code Surrogate Decision Maker Primary Surrogate Decision Maker Josué An son [phone] This patient was staffed with Dr. To Henriquez, who agrees with the assessment and plan unle ss otherwise stated. Johnathan Hemphill MD PGY - 3 | Internal Medicine | [id number] [facility] untTo justice MD - 11/2018 8:01 AM [...] stenosis or insuff iciency: Aug 26, 2018: [facility]) 7) Essential hypertension 8) "Cirrhosis, Laennec's" (HCC) [...] it does r aise the qn of Atcqpxx-Qzpob-Wcrdp Could have been contributor to osteo District Manager In Training re: skin/foot care (a la DM) 10) Alcohol use disorder, mild, in sustained remission, abuse 11) Encounter for long-term (current) use of antibiotics SURROGATE DECISION MAKER Surrogate Decision Maker Primary Surrogate Decision Maker Josué An son [phone] I spent ~40 minutes in the care of this patient. Greater than 50% of the time was spent co unseling and coordination of care, including visit x 3; extensive chart review (on ramos) TO HENRIQUEZ MD [address] [employer] turret lathe operator Division of Hospital Medicine Department of Medicine [facility] & [address] [place] [phone] Gauri Walsh MD - 09/12/2019 7:07 AM [...] BLED 4. Former discussion s with his fiber technician decided against anticoagulation; on 81 mg aspirin daily (used to be 325 but reduced to 81 2/2 "GI problems"). - held asa in s/o surgery, has been restarted - continue digoxin - goal resting rate <110 # bilateral lower extremity swelling Unclear etiology. Was seeing fiber technician who is prescribing torsemide 10 mg daily [...] used 90/100 of his medicare SNF days, vocational case manager working to determine whether paying out of pocket is an option vs investigate other dispo options. Code Status: Full Code Surrogate Decision Maker Primary Surrogate Decision Maker Josué An son [phone] This patient was staffed with Dr. To Henriquez, who agrees with the assessment and plan unle ss otherwise stated. Gauri Strickland MD Internal Medicine [id number] signed by To Henriquez MD at 09/12/2019 [...] BLED 4. Former discussion s with his fiber technician decided against anticoagulation; on 81 mg aspirin daily (used to be 325 but reduced to 81 12/14 "GI problems"). - held asa in s/o surgery, has been restarted - continue digoxin - goal resting rate <110 # bilateral lower extremity swelling Unclear etiology. Was seeing fiber technician who is prescribing torsemide 10 mg daily [...] used 90/100 of his medicare SNF days, vocational case manager working to determine whether paying out of pocket is an option vs investigate other dispo options. Code Status: Full Code Surrogate Decision Maker Primary Surrogate Decision Maker Josué An son [phone] This patient was staffed with Dr. Huerta, [...] eager to contin ue conversation with his vocational case manager about discharge planning. Physical Examination: [...] BLED 4. Former discussion s with his fiber technician decided against anticoagulation; on 81 mg aspirin daily (used to be 325 but reduced to 81 2/2 "GI problems"). - held asa in s/o surgery, has been restarted - continue digoxin - goal resting rate <110 # bilateral lower extremity swelling Unclear etiology. Was seeing fiber technician who is prescribing torsemide 10 mg daily [...] used 90/100 of his medicare SNF days, vocational case manager working to determine whether paying out of pocket is an option vs investigate other dispo options. Code Status: Full Code Surrogate Decision Maker Primary Surrogate Decision Maker Josué An son [phone] This patient was staffed with Dr. Huerta, who agrees with the assessment and plan unless otherwise stated. Gauri Strickland MD Internal Medicine [id number] signed by Tiffanie Huerta MD at 09/10/2019 [...] has not been an issue. Enjoys working [facility] physical therapy. Denies dyspnea, nausea, abdominal pain, constipation. Fine with getting PICC line and understands need for exterminator helper IV antibiotics. Physical Examination: Last 24 hour [...] BLED 4. Former discussion s with his fiber technician decided against anticoagulation; on 81 mg aspirin daily (used to be 325 but reduced to 81 2/2 "GI problems"). - held asa in s/o surgery, has been restarted - continue digoxin - goal resting rate <110 # bilateral lower extremity swelling Unclear etiology. Was seeing fiber technician who is prescribing torsemide 10 mg daily [...] Primary Surrogate Decision Maker Josué An son [phone] This patient was staffed with Dr. Huerta, who agrees with the assessment and plan unless otherwise stated. Gauri Strickland MD Internal Medicine [id number] signed by Tiffanie Huerta MD at 09/10/2019 [...] hindfoot. 5. Placement of an external tissue film painter, area other than breast. 6. Placement of [...] vancomycin, until further notice, ID consult for exterminator helper plan 5. Special Concerns: case managment for discharge planning, likely discharge to SNF in [place] Wound Care consulted 6. Dressings/Drains: DRESSING CARE [...] but please do not scrub at the dressing/chanec gical site. Please do not bath or [...] 2 seconds Aidan Antonio MD Orthopedic Surgery [id number] 11:15 AM Cory Shaikh MD - 09/09/2019 [...] Carmen MD [facility] [address] [address] [place] [address] Cory Carmen Gauri Walsh MD - 09/08/2019 7:27 AM PDT General Internal Medicine 3 Progress Note 24 Hour Events: Pharmacy completed med rec via [facility] records per pharm: "Torsemide, potassium chloride, A SA, MVI, vitamin B12, and thiamine were added to PRESENTATION DESIGNER medication list. Of note, patient has n [...] BLED 4. Former discussion s with his fiber technician decided against anticoagulation; on 81 mg aspirin daily (used to be 325 but reduced to 81 2/ "GI problems"). - held asa in s/o surgery, has been restarted - continue digoxin - goal resting rate <110 # bilateral lower extremity swelling Unclear etiology. Was seeing fiber technician who is prescribing torsemide 10 mg daily [...] Primary Surrogate Decision Maker Josué An son [phone] This patient was staffed with Dr. Huerta, who agrees with the assessment and plan unless otherwise stated. Gauri Strickland MD Internal Medicine [id number] signed by Tiffanie Huerta MD at 09/08/2019 [...] present. - he has been comfortable at [facility] assisted living with aggressive PT in the past [facility] is close to [place], his home. Deepthi Collazo AGACNP - 09/08/2019 [...] hindfoot. 5. Placement of an external tissue film painter, area other than breast. 6. Placement of [...] vancomycin, until further notice, ID consult for exterminator helper plan 5. Special Concerns: case managment for discharge planning, likely discharge to SNF in [place] Wound Care consulted 6. Dressings/Drains: DRESSING CARE [...] capillary refill < 2 seconds Deepthi Collazo, [facility] Orthopaedic Trauma Surgery Pager [phone] Associated attestation - Cory Carmen MD - [...] input. I will be following this patient longterm, rather than Dr cochran or Elan. I discussed the diagnosis, imaging studies, treatment plan and prognosis with the patient and resident. I have reviewed and the above note and agree with the plan. Please do not he sitate to call me for questions. Cory Carmen MD [facility] 4A [address] [place] [address] Arnold Taylor MD - 09/07/2019 6:22 PM PDTFormatting of this note might be differ ent from the original. Orthopaedic Surgery Progress Note Patient: /Age: MRN: CSN: Date: Admission Date: Hospital Day: Attending Physician: Monty An 1950 69 y.o. [id number] 09/07/2019 09/03/2019 4 Garth Cochran MD Procedure(s) [...] SpO2 98%, BMI 27.94 kg/(m^2). Facility age [facility] for growth percentiles is 18 years. Exam: General: Well appearing, NAD CV/Resp: Breathing comfortably, Neurologic: Awake and alert MSK: LLE Dressings c/d/i Insensate about the lower leg/foot Wiggles toes WWP distally ARNOLD TAYLOR MD Pager: [phone] 09/07/2019 Associated attestation - Garth Cochran MD [...] appetite good, concerns are c entered around exterminator helper places, specifically timeline of rehab and wound healing, as well a s what recovery will look like if he were to get a BKA. Reassured that no decisions need to be made now, can involve case management Sunday to look at SNFs. He has been to [facility] in [place] previously. Physical Examination: Last 24 hour min/max [...] BLED 4. Former discussion s with his fiber technician decided against anticoagulation; on 81 mg aspirin daily (used to be 325 but reduced to 81 2/2 "GI problems"). - held asa in s/o surgery, restart - continue digoxin - goal resting rate <110 # bilateral lower extremity swelling Unclear etiology. Was seeing fiber technician who is prescribing torsemide 10 mg daily [...] Primary Surrogate Decision Maker Josué An son [phone] This patient was staffed with Dr. Huerta, who agrees with the assessment and plan. Gauri Strickland MD Internal Medicine [id number] signed by Tiffanie Huerta MD at 09/07/2019 [...] in team note. - [facility] in [place] would be a reasonable SNF for him [...] seco nds Aidan Antonio MD Orthopedic Surgery [id number] 7:37 AM 09/06/2019 Gauri Walsh MD - [...] DM); HAS BLED 4. Former discussions with [facility] fiber technician decided against anticoagulation; on 81 mg aspirin daily (used to be 325 but r educed to 81 2/ "GI problems"). - hold asa in s/o surgery - continue digoxin - goal resting rate <110 # bilateral lower extremity swelling Unclear etiology. Was seeing fiber technician who is prescribing torsemide 10 mg daily [...] Primary Surrogate Decision Maker Josué An son [phone] This patient was staffed with Dr. Huerta, who agrees with the assessment and plan. Gauri Strickland MD Internal Medicine [id number] signed by Tiffanie Huerta MD at 09/06/2019 [...] Orthopaedic Attending: Monty An 1950 69 y.o. [id number] 09/05/2019 09/03/2019 2 Olivier Ansari MD Diagnosis(es): [...] to make a follow up appointment in [facility] 2 weeks with ORTHO TRAUMA & [...] es pink and warm. Noel Baptiste MD [facility] Department of Orthopaedics & Rehabilitation [address] [facility] Mail Code: OP31 [place] [address] Associated attestation - Olivier Ansari MD - [...] DM); HAS BLED 4. Former discussions with [facility] fiber technician decided against anticoagulation; on 81 mg aspirin daily (used to be 325 but r educed to 81 2/2 "GI problems"). - hold asa in s/o surgery - continue digoxin - goal resting rate <110 # bilateral lower extremity swelling Unclear etiology. Was seeing fiber technician who is prescribing torsemide 10 mg daily [...] Primary Surrogate Decision Maker Josué An son [phone] This patient was staffed with Dr. Huerta, who agrees with the assessment and plan. Gauri Strickland MD Internal Medicine [id number] signed by Tiffanie Huerta MD at 09/06/2019 [...] BLED 4 . Former discussions with his fiber technician decided against anticoagulation; on 81 mg aspirin daily (used to be 325 but reduced to 81 2/2 "GI problems"). - hold asa in s/o surgery - continue digoxin - goal resting rate <110 # bilateral lower extremity swelling Unclear etiology. Was seeing fiber technician who is prescribing torsemide 10 mg daily [...] Primary Surrogate Decision Maker Josué An son [phone] This patient was staffed with Dr. Huerta, [...] care at facility where he lives in [facility], was discharged to home I called and spoke with night RN at [facility] He discharged home yesterday from facility They had noted exposed hardware last week, cultured wound which has not grown and started o n PO levofloxacin 500mg daily and augmentin on 09/02 He was seen by Dr Castellano at [facility] who requested transfer to [facility] [...] within 24 hours. Please refer to excellent purchasing intern H&P for full problem based plan. ILIR SPIVEY MD Internal Medicine, PGY-3 Pager: [phone] documented in this encou nter Plan of [...] | + + + + + | [facility] | [address] | [place] [address] | | | SERVICES, CORE | DWIGHT [...] | | | | | | gy, [facility] & | | | | | | [facility] | | | | | | electronic [...] | + + + + + | [facility] | [address] | [place] [address] | | | PATHOLOGY | [address] [...] | + + + + + | [facility] | [address] | [place] [address] | | | FERMÍN ZABALA | DWIGHT [...] | + + + + + | [facility] | [address] | [facility] [place] [address] | | | FERMÍN ZABALA | DWIGHT [...] | + + + + + | [facility] | [address] [address] | [place] [address] | | | VJ, FERMÍN | DWIGHT [...] | + + + + + | [facility] | [address] | [place] [address] | | | SERVICES, CORE | DWIGHT [...] [facility]ENTER [facility] | [address] | [place] [address] | | | SERVICES, CORE | PARK [...] 1.03 | 0.90 - 1.20 INR | [facility] | | | | | | LABORATORY [...] CENTER LABORATORY | [address] | [place] [address] | | | SERVICES, CORE | DWIGHT [...] [facility] | [address] | [place] [address] | | | SERVICES, CORE | PARK [...] [facility] | [address] | [place] [address] | | | VJ, FERMÍN | DWIGHT [...] | + + + + + | [facility] | [address] [address] | [place] [address] | | | SERVICES, CORE | DWIGHT [...] [facility] | [address] | [place] [address] | | | SERVICES, CORE | PARK [...] | + + + + + | [facility] | [address] | [place] [address] | | | SERVICES, [facility] | [address] | | | + [...] Diagnosis: Cellulitis LE Procedure location: Unit: Room: [facility] | | | Providers: Attending [...] correct patient, | | | procedure, equipment, ict support engineer and site/side marked as | [...] vein. Catheter lot number: | | | [id number] with a length of 55 cm was [...] [facility] | [address] | [place] [address] | | | SERVICES, CORE | PARK [...] [facility] | [address] | [place] [address] | | | SERVICES, CORE | PARK [...] | + + + + + | [facility] | [address] | [place] [address] | | | VJ, FERMÍN | DWIGHT [...] | + + + + + | [facility] | [address] | [place] [address] | | | SERVICES, CORE | DWIGHT [...] LABORATORY | [address] | [place] [address] | | | SERVICES, CORE | PARK [...] + + + | [facility] | [address] | [place] [address] | | | SERVICES, FERMÍN | PARK [...] | + + + + + | [facility] | [address] | [place] [address] | | | VJ, FERMÍN | PARK [...] [facility] | [address] | [place], [place] | | | [facility] | [address] | [address] | | | TESTS | | | [...] | + + + + + | [facility] | [address] | [place] [address] | | | VJ, FERMÍN | DWIGHT [...] | + + + + + | [facility] | [address] | [place] [address] | | | SERVICES, CORE | DWIGHT [...] [facility] | [address] | [place] [address] | | | SERVICES, | [address] [...] [facility] | [address] | [place] [address] | | | SERVICES, | [address] [...] Note | + + | Service Account, [employer] Interface - 09/05/2019 4:56 PM [...] [facility] | | | | | [facility] | | | | + [...] | + + + + + | [facility] | [address] | [place] [address] | | | SERVICES, CORE | PARK [...] [facility] | [address] | [place] [address] | | | SERVICES CORE | DWIGHT [...] [facility]PT OF | [address] | [place], [place] | | | CARDIOLOGY | [address] | [address] | | + + + + + [...] [facility] | [address] | [place], [place] | | | LUISA [facility] | [address] | [address] | | | TESTS | | | [...] B for complete identification and susceptibilities | [facility] | | Enterococcus faecalis Unable to continue [...] + | [facility] | [address] | [place] [address] | | | [place] | | | | + + + [...] | + + + + + | [facility] | [address] | [place] [address] | | | [place] | | | | + + + [...] B for complete identification and susceptibilities | [place] | | Enterococcus faecalis Refer to culture [...] + | [facility] | [address] | [place] [address] | | | [place] | | | [...] + | [facility] | [address] | [place] [address] | | | [place] | | | [...] + | [facility] | [address] | [place] [address] | | | [place] | | | [...] [facility] | [address] | [place] [address] | | | SERVICES, CORE | DWIGHT [...] [facility] | [address] | [place] [address] | | | SERVICES, CORE | PARK [...] + + + | [facility] | [address] | [place] [address] | | | FERMÍN ZABALA | PARK [...] + + | [facility] | [address] | [place] [address] | | | SERVICES, CORE | PARK [...] | + + + + + | [facility] | [address] | [place] [address] | | | FERMÍN ZABALA | DWIGHT [...] | [facility] | | considered for monitoring longterm glycemic control in patients with: | LABORATORY [...] | + + + + + | [facility] | [address] | [place] [address] | | | VJ, SPECIAL | DWIGHT [...] - | | | | | | [place] | | + +---------+ + + + + + | Specimen | + + | Blood - Blood | | (substance) | + + + + + + + | Performing | Address | City/State/Zipcode | Phone Number | | Organization | | | | + + + + + | [facility] | [address] | [place] [address] | | | [place] | | | [...] + + + | [facility] | [address] | [place] [address] | | | SERVICES, CORE | PARK [...] | + + + + + | [facility] | [address] | [place] [address] | | | FERMÍN ZABALA | DWIGHT [...] | + + + + + | [facility] | [address] | [place] [address] | | | SERVICES, CORE | PARK [...] | + + + + + | [facility] | [address] | [place] [address] | | | SERVICES, CORE | DWIGHT [...] [facility] | [address] | [place], [place] | | | [facility] | [facility] | [address] | | | TESTS | | | [...] [facility] | [address] | [place] [address] | | | SERVICES, CORE | [address] | | | + + + + + ETHANOL (ALCOHOL), BLOOD (09/03/2019 7:24 PM PDT) + +-------+ + + + | Component | Value | Ref Range | Performed | Pathologist | | | | | At | Signature | + +-------+ + + + | ETHANOL | <10 | <10 mg/dL | [facility] | | | (ALCOHOL) | | | [...] + + | [facility] | [address] | [place] [address] | | | SERVICES, FERMÍN | DWIGHT [...] + + + | [facility] | [address] | [place] [address] | | | SERVICES, CORE | DWIGHT [...] [facility] | [address] | [place] [address] | | | SERVICES, CORE | PARK [...] | + + + + + | [facility] | [address] | [place] [address] | | | SERVICES, CORE | DWIGHT [...] presented. | | | |Final signature: Makeda Jaems MD 09/03/2019 8:31 PM | |Preliminary: Makeda [...] [facility] | [address] | [place] [address] | | | SERVICES, | [address] [...] | + + + + + | [facility] | [address] | [place] [address] | | | SERVICES, CORE | DWIGHT [...] [facility] | [address] | [place] [address] | | | SERVICES, CORE | PARK [...] | + + + + + | [facility] | [address] | [place] [address] | | | SERVICES, CORE | DWIGHT [...] | | | | First dose on [facility] 09/04/19 at | | AM PST [...] | | | | | | Until [facility] 09/17/19 at 1808, | | [...] Starting [facility] 09/04/19 at | | | | [...]
--- OUTSIDE RECORDS SUMMARY | ~2020-05-24 | XMS | Encounter Summary ---
Demographics + + + | Address | [address] | | | [place] [address] | + + + | Home Phone | | + + + | Preferred Language | Unknown | + + + | Marital Status | Single | + + + | Druze Affiliation | NRP | + + + | Race | White | + + + | Ethnic Group | Not or | + + + Author + + + | Author | [facility] | + + + | Organization | [facility] | + + + | [...] Team Providers + +------+ + | Care Sports Intern Name | Role | Phone | + [...] | | | | [facility] | [place], [place] | | | | | [address], [address] floor | [address] | | | | | [place], [place] | [phone] | | | | | [address] | | | | | | [phone] | | | +--------+ + + + [...]
--- OUTSIDE RECORDS SUMMARY | ~2020-05-24 | XMS | Encounter Summary ---
Demographics + + + | Address | [address] | | | [place] [address] | + + + | Home Phone [...] + | Author | [facility] | + + + | Organization | [facility] | + + + | Address [...] Team Providers + +------+ + | Care Sheriffs Detective Name | Role | Phone | + [...] | | | | [facility] | [place], [place] | | | | | [address], [facility] | [address] | | | | | [place], [place] | [phone] | | | | | [address] | | | | | | [phone] | | | +--------+ + + + [...]
--- OUTSIDE RECORDS SUMMARY | ~2020-05-24 | XMS | Encounter Summary ---
Demographics + + + | Address | [address] | | | [place] [address] | + + + | Home Phone [...] Team Providers + +------+ + | Care [employer] Access[employer] Salesperson Name | Role | Phone | + [...] | | SW Tejas Maya | [address] [facility] | LEFT ANKLE | | | | Rd [facility] | Bk Maya | | | | | Hospital Admitting | [place], [place] | | | | | Desk Located on the | [address] | | | | | 9th floor | [phone] | | | | | [place], [place] | | | | | | [address] | | | +--------+---------+ + + + [...] Lockwood MD - 09/17/2019 12:07 PM PST [facility] Discharge Summary Discharging Provider: Johnathan Lockwood MD Discharging Attending Physician: To Henriquez MD PCP: Rio Huerta MD Admission Date: 09/03/2019 Discharge Date: 09/17/2019 Hospital Stay: 14 day(s) Discharge Location: [facility] [place] . [phone] [facility] FOLLOW UP NEEDS: 1) Infectious Disease, [facility], [place], ~10/08/2019 2) Orthopedi cs, [facility] in the Dr. Nella Parry ~10/20 [...] hindfoot. 5. Placement of an external tissue director industrial, area other than breast. 6. Placement of [...] vancomycin trough levels - ID F/U in [place], ~10/08 timeframe - Wound check and suture removal by 09/26/2019; OK for SNF to remove sutures - Ortho F/U ~10/21 timeframe w/ Dr. Carmen in [facility] - Activity restrictions: LLE: NWB, [...] BLED 4. Former discussion s with his pack mule worker decided against anticoagulation; on 81 mg aspirin [...] follow/manage patient "I certify that post-hospital inpatient custodial facility care is medically necessar y on a continuing basis for treatment of the same condition for which inpatient acute hospit al care was received." JOHNATHAN LOCKWOOD MD Discharge Destination - Selection Complete Service Provider Request Status Selected Services Address Phone Number Fax Number Hellen [place] Rajinder [facility] [address], [place] [id number] Home Care Medical No service has been [...] Why: For wound re-check Contact information [address] [place] [phone] RIO HUERTA MD. Go on 09/24/2019. Specialty: Family Medicine Why: Appt: Tuesday, September 24, 2019 @ 08:40am. Address: [address] [place] [address], [address], [place] Contact information [facility] [place] [address] Surya Coffman MD. Go on 09/30/2019. Why: Appt: Monday, September 30, 2019 @ 09:45am Contact information [address] [place] [phone] Contact information for after-discharge care [facility] . Service: [facility] Contact information [address] [place] [address] Discharge Physical Exam: Last 24 hour min/max [...] PGY - 3 | Internal Medicine | [id number] [facility] Associated attestation - To Henriquez MD - [...] Primary Surrogate Decision Maker Josué An son [phone] TO HENRIQUEZ MD [address] automatic corn grinder operator Division of Hospital Medicine Department of Medicine [address] [place] [phone] documented in this encounter Discharge Instructions Discharge [...] follow/manage patient "I certify that post-hospital inpatient custodial facility care is medically necessar y on [...] | | | | | with hardware ([facility]) | | | | | | [...] (per patient w ++ 1st degree FH) Engineering Technical Analyst re: skin/foot care (a la DM) 10) Alcohol use disorder, mild, in sustained remission, abuse 11) Encounter for long-term (current) use of antibiotics SURROGATE DECISION MAKER Surrogate Decision Maker Primary Surrogate Decision Maker Josué An son [phone] TO HENRIQUEZ MD [address] automatic corn grinder operator Division of Hospital Medicine Department of Medicine [facility] [address] 12/[facility] [place] [address] Amber Wan MD - 1 11/16/2018 7:13 [...] care, follow up recs - follow up: [facility] ID faculty with preference to schedule [...] BLED 4. Former discussion s with his pack mule worker decided against anticoagulation; on 81 mg aspirin daily (used to be 325 but reduced to 81 2/2 "GI problems"). - held asa in s/o surgery, has been restarted - continue digoxin - goal resting rate <110 # bilateral lower extremity swelling Unclear etiology. Was seeing pack mule worker who is prescribing torsemide 10 mg daily [...] Dispo: patient ready to discharge tomorrow to [facility] in [place]. Code Status: Full Code Surrogate Decision Maker Primary Surrogate Decision Maker Josué An son [phone] This patient was staffed with Dr. To [...] there are not currnet signs of decompensation Engineering Technical Analyst on his 'near miss' and importance of good 'liver care' in future 9) Neuropathy, hereditary sensory (per patient w ++ 1st degree FH) Not noted in 'history' but with suggestion of pes cavus, and ++ family history it does r aise the qn of Rsgpuyp-Znsyv-Umtsb Could have been contributor to osteo Engineering Technical Analyst re: skin/foot care (a la DM) 10) Alcohol use disorder, mild, in sustained remission, abuse 11) Encounter for long-term (current) use of antibiotics SURROGATE DECISION MAKER Surrogate Decision Maker Primary Surrogate Decision Maker Josué An son [phone] TO HENRIQUEZ MD [address] automatic corn grinder operator Division of [facility] Medicine Department of Medicine [facility] [address] [place] [address] Amber Wan MD - 1 11/15/2018 6:26 [...] care, follow up recs - follow up: [facility] ID faculty with preference to schedule [...] BLED 4. Former discussion s with his pack mule worker decided against anticoagulation; on 81 mg aspirin daily (used to be 325 but reduced to 81 2/2 "GI problems"). - held asa in s/o surgery, has been restarted - continue digoxin - goal resting rate <110 # bilateral lower extremity swelling Unclear etiology. Was seeing pack mule worker who is prescribing torsemide 10 mg daily [...] used majority of his medicare SNF days, shelter case manager working to determine whethe r paying out of pocket is an option vs investigate other dispo options. Code Status: Full Code Surrogate Decision Maker Primary Surrogate Decision Maker Josué An son [phone] This patient was staffed with Dr. To [...] care, follow up recs - follow up: [facility] ID faculty with preference to schedule [...] BLED 4. Former discussion s with his pack mule worker decided against anticoagulation; on 81 mg aspirin daily (used to be 325 but reduced to 81 2/2 "GI problems"). - held asa in s/o surgery, has been restarted - continue digoxin - goal resting rate <110 # bilateral lower extremity swelling Unclear etiology. Was seeing pack mule worker who is prescribing torsemide 10 mg daily [...] used majority of his medicare SNF days, shelter case manager working to determine whethe r paying out of pocket is an option vs investigate other dispo options. Code Status: Full Code Surrogate Decision Maker Primary Surrogate Decision Maker Josué An son [phone] This patient was staffed with Dr. To [...] stenosis or insuff iciency: Aug 26, 2018: [facility] [employer] [facility] [employer]) 7) Essential hypertension 8) "Cirrhosis, Laennec's" (HCC) [...] it does r aise the qn of Mcneiuq-Lolju-Rylby Could have been contributor to osteo Engineering Technical Analyst re: skin/foot care (a la DM) 10) Alcohol use disorder, mild, in sustained remission, abuse 11) Encounter for long-term (current) use of antibiotics SURROGATE DECISION MAKER Surrogate Decision Maker Primary Surrogate Decision Maker Josué An son [phone] TO HENRIQUEZ MD [address] automatic corn grinder operator Division of Hospital Medicine Department of Medicine [address] 12[address] [address] o zuluaga MD - 09/13 12:33 PM [...] stenosis or insuff iciency: Aug 26, 2018: [facility]) 7) Essential hypertension 8) "Cirrhosis, Laennec's" [...] it does r aise the qn of Mpmmxym-Uenim-Tselj Could have been contributor to osteo Engineering Technical Analyst re: skin/foot care (a la DM) 10) Alcohol use disorder, mild, in sustained remission, abuse 11) Encounter for long-term (current) use of antibiotics SURROGATE DECISION MAKER Surrogate Decision Maker Primary Surrogate Decision Maker Josué An son [phone] TO HENRIQUEZ MD [address] automatic corn grinder operator Division of Hospital Medicine Department of Medicine [address] [place] [address] ateJohnathan victor MD - 12/2018 11:07 AM [...] care, follow up recs - follow up: [facility] ID faculty with preference to schedule [...] BLED 4. Former discussion s with his pack mule worker decided against anticoagulation; on 81 mg aspirin daily (used to be 325 but reduced to 81 2/2 "GI problems"). - held asa in s/o surgery, has been restarted - continue digoxin - goal resting rate <110 # bilateral lower extremity swelling Unclear etiology. Was seeing pack mule worker who is prescribing torsemide 10 mg daily [...] used majority of his medicare SNF days, shelter case manager working to determine whethe r paying out of pocket is an option vs investigate other dispo options. Code Status: Full Code Surrogate Decision Maker Primary Surrogate Decision Maker Josué An son [phone] This patient was staffed with Dr. To Henriquez, who agrees with the assessment and plan unle ss otherwise stated. Johnathan Lockwood MD PGY - 3 | Internal Medicine | [id number] [facility] To Mendez MD - 11/2018 8:01 AM [...] stenosis or insuff iciency: Aug 26, 2018: [facility]) 7) Essential hypertension 8) "Cirrhosis, Laennec's" [...] it does r aise the qn of Pdodija-Pfiep-Nmkwy Could have been contributor to osteo Engineering Technical Analyst re: skin/foot care (a la DM) 10) Alcohol use disorder, mild, in sustained remission, abuse 11) Encounter for long-term (current) use of antibiotics SURROGATE DECISION MAKER Surrogate Decision Maker Primary Surrogate Decision Maker Josué An son [phone] I spent ~40 minutes in the care of this patient. Greater than 50% of the time was spent co unseling and coordination of care, including visit x 3; extensive chart review (on ramos) TO HENRIQUEZ MD [address] automatic corn grinder operator Division of Hospital Medicine Department of Medicine [address] [place] [address] auri Strickland MD - 09/12/2019 7:07 AM [...] care, follow up recs - follow up: [facility] ID faculty with preference to schedule [...] BLED 4. Former discussion s with his pack mule worker decided against anticoagulation; on 81 mg aspirin daily (used to be 325 but reduced to 81 2/2 "GI problems"). - held asa in s/o surgery, has been restarted - continue digoxin - goal resting rate <110 # bilateral lower extremity swelling Unclear etiology. Was seeing pack mule worker who is prescribing torsemide 10 mg daily [...] used 90/100 of his medicare SNF days, shelter case manager working to determine whether paying out of pocket is an option vs investigate other dispo options. Code Status: Full Code Surrogate Decision Maker Primary Surrogate Decision Maker Josué An son [phone] This patient was staffed with Dr. To Henriquez, who agrees with the assessment and plan unle ss otherwise stated. Gauri Strickladn MD Internal Medicine [id number] signed by To Henriquez MD at 09/12/2019 [...] care, follow up recs - follow up: [facility] ID faculty with preference to schedule [...] BLED 4. Former discussion s with his pack mule worker decided against anticoagulation; on 81 mg aspirin daily (used to be 325 but reduced to 81 2/2 "GI problems"). - held asa in s/o surgery, has been restarted - continue digoxin - goal resting rate <110 # bilateral lower extremity swelling Unclear etiology. Was seeing pack mule worker who is prescribing torsemide 10 mg daily [...] used 90/100 of his medicare SNF days, shelter case manager working to determine whether paying out of pocket is an option vs investigate other dispo options. Code Status: Full Code Surrogate Decision Maker Primary Surrogate Decision Maker Josué An son [phone] This patient was staffed with Dr. Huerta, [...] eager to contin ue conversation with his shelter case manager about discharge planning. Physical Examination: [...] care, follow up recs - follow up: [facility] ID faculty with preference to schedule [...] BLED 4. Former discussion s with his pack mule worker decided against anticoagulation; on 81 mg aspirin daily (used to be 325 but reduced to 81 2/2 "GI problems"). - held asa in s/o surgery, has been restarted - continue digoxin - goal resting rate <110 # bilateral lower extremity swelling Unclear etiology. Was seeing pack mule worker who is prescribing torsemide 10 mg daily [...] used 90/100 of his medicare SNF days, shelter case manager working to determine whether paying out of pocket is an option vs investigate other dispo options. Code Status: Full Code Surrogate Decision Maker Primary Surrogate Decision Maker Josué An son [phone] This patient was staffed with Dr. Huerta, who agrees with the assessment and plan unless otherwise stated. Gauri Strickland MD Internal Medicine [id number] signed by Tiffanie Huerta MD at 09/10/2019 [...] has not been an issue. Enjoys working [facility] physical therapy. Denies dyspnea, nausea, abdominal pain, constipation. Fine with getting PICC line and understands need for group home IV antibiotics. Physical Examination: Last 24 hour [...] care, follow up recs - follow up: [facility] ID faculty with preference to schedule [...] BLED 4. Former discussion s with his pack mule worker decided against anticoagulation; on 81 mg aspirin daily (used to be 325 but reduced to 81 2/2 "GI problems"). - held asa in s/o surgery, has been restarted - continue digoxin - goal resting rate <110 # bilateral lower extremity swelling Unclear etiology. Was seeing pack mule worker who is prescribing torsemide 10 mg daily [...] Primary Surrogate Decision Maker Josué An son [phone] This patient was staffed with Dr. Huerta, who agrees with the assessment and plan unless otherwise stated. Gauri Strickland MD Internal Medicine [id number] signed by Tiffanie Huerta MD at 09/10/2019 [...] hindfoot. 5. Placement of an external tissue director industrial, area other than breast. 6. Placement of [...] vancomycin, until further notice, ID consult for group home plan 5. Special Concerns: case managment for discharge planning, likely discharge to SNF in [facility] Wound Care consulted 6. Dressings/Drains: DRESSING [...] ok to discharge from ortho perspective o ute OPAT plan and dispo arrangements have been [...] 2 seconds Aidan Antonio MD Orthopedic Surgery [id number] 11:15 AM Cory Shaikh MD - 09/09/2019 [...] the plan as listed. Cory Carmen MD [facility] [address] [place] [address] Cory Carmen Gauri Walsh MD - 09/08/2019 7:27 AM PDT General Internal Medicine 3 Progress Note 24 Hour Events: Pharmacy completed med rec via SNF MAR records per pharm: "Torsemide, potassium chloride, A SA, MVI, vitamin B12, and thiamine were added to IMPROVEMENT ADVISOR medication list. Of note, patient has n [...] BLED 4. Former discussion s with his pack mule worker decided against anticoagulation; on 81 mg aspirin daily (used to be 325 but reduced to 81 2/2 "GI problems"). - held asa in s/o surgery, has been restarted - continue digoxin - goal resting rate <110 # bilateral lower extremity swelling Unclear etiology. Was seeing pack mule worker who is prescribing torsemide 10 mg daily [...] Primary Surrogate Decision Maker Josué An son [phone] This patient was staffed with Dr. Huerta, who agrees with the assessment and plan unless otherwise stated. Gauri Strickland MD Internal Medicine [id number] signed by Tiffanie Huerta MD at 09/08/2019 [...] present. - he has been comfortable at [facility] assisted living with aggressive PT in the past [facility] is close to [place], his home. Deepthi Collazo AGACNP - 09/08/2019 [...] hindfoot. 5. Placement of an external tissue director industrial, area other than breast. 6. Placement of [...] planning, likely discharge to SNF in [facility] Wound Care consulted 6. Dressings/Drains: DRESSING [...] ok to discharge from ortho perspective o ute OPAT plan and dispo arrangements have been [...] Intake/Output Summary (Last 24 hours) at 09/08/2019 0640 Last data filed at 09/08/2019 0645 Gross [...] capillary refill < 2 seconds Deepthi Collazo, [facility] Orthopaedic Trauma Surgery Pager [phone] Associated attestation - Cory Carmen MD - [...] this patient group home, rather than Dr stafford or [facility]. I discussed the diagnosis, imaging studies, treatment plan and prognosis with the patient and resident. I have reviewed and the above note and agree with the plan. Please do not he sitate to call me for questions. Cory Carmen MD [facility] [address]A [address] [facility] [address] [place] [address] Arnold Taylor MD - 09/07/2019 6:22 PM PDTFormatting of this note might be differ ent from the original. Orthopaedic Surgery Progress Note Patient: /Age: MRN: CSN: Date: Admission Date: Hospital Day: Attending Physician: Monty An 1950 69 y.o. [id number] 09/07/2019 09/03/2019 4 Garth Stafford MD Procedure(s) [...] SpO2 98%, BMI 27.94 kg/(m^2). Facility age [facility] percentiles is 18 years. Exam: General: Well appearing, NAD CV/Resp: Breathing comfortably, Neurologic: Awake and alert MSK: LLE Dressings c/d/i Insensate about the lower leg/foot Wiggles toes WWP distally ARNOLD TAYLOR MD Pager: [phone] 09/07/2019 Associated attestation - Garth Stafford MD [...] look at SNFs. He has been to [facility] in [place] previously. Physical Examination: Last 24 hour min/max [...] BLED 4. Former discussion s with his pack mule worker decided against anticoagulation; on 81 mg aspirin daily (used to be 325 but reduced to 81 2/2 "GI problems"). - held asa in s/o surgery, restart - continue digoxin - goal resting rate <110 # bilateral lower extremity swelling Unclear etiology. Was seeing pack mule worker who is prescribing torsemide 10 mg daily [...] Primary Surrogate Decision Maker Josué An son [phone] This patient was staffed with Dr. Huerta, who agrees with the assessment and plan. Gauri Strickland MD Internal Medicine [id number] signed by Tiffanie Huerta MD at 09/07/2019 [...] in team note. - [facility] in [place] would be a reasonable SNF for him [...] seco nds Aidan Antonio MD Orthopedic Surgery [id number] 7:37 AM 09/06/2019 Gauri Walsh MD - [...] DM); HAS BLED 4. Former discussions with [facility] pack mule worker decided against anticoagulation; on 81 mg aspirin daily (used to be 325 but r educed to 81 2/2 "GI problems"). - hold asa in s/o surgery - continue digoxin - goal resting rate <110 # bilateral lower extremity swelling Unclear etiology. Was seeing pack mule worker who is prescribing torsemide 10 mg daily [...] Primary Surrogate Decision Maker Josué An son [phone] This patient was staffed with Dr. Huerta, who agrees with the assessment and plan. Gauri Strickland MD Internal Medicine [id number] signed by Tiffanie Huerta MD at 09/06/2019 [...] Orthopaedic Attending: Monty An 1950 69 y.o. [id number] 09/05/2019 09/03/2019 2 Olivier Ansari MD Diagnosis(es): [...] make a follow up appointment in [facility] 2 weeks with ORTHO TRAUMA & [...] es pink and warm. Noel Baptiste MD [facility] Department of Orthopaedics & Rehabilitation [address] [place] [address] Mail Code: [id number] [facility] [id number] Associated attestation - Olivier Ansari MD - [...] DM); HAS BLED 4. Former discussions with [facility] pack mule worker decided against anticoagulation; on 81 mg aspirin daily (used to be 325 but r educed to 81 2/2 "GI problems"). - hold asa in s/o surgery - continue digoxin - goal resting rate <110 # bilateral lower extremity swelling Unclear etiology. Was seeing pack mule worker who is prescribing torsemide 10 mg daily [...] Primary Surrogate Decision Maker Josué An son [phone] This patient was staffed with Dr. Huerta, who agrees with the assessment and plan. Gauri Strickland MD Internal Medicine [id number] signed by Tiffanie Huerta MD at 09/06/2019 [...] BLED 4 . Former discussions with his pack mule worker decided against anticoagulation; on 81 mg aspirin daily (used to be 325 but reduced to 81 2/2 "GI problems"). - hold asa in s/o surgery - continue digoxin - goal resting rate <110 # bilateral lower extremity swelling Unclear etiology. Was seeing pack mule worker who is prescribing torsemide 10 mg daily [...] Primary Surrogate Decision Maker Josué An son [phone] This patient was staffed with Dr. Huerta, [...] care at facility where he lives in [facility], was discharged to home I called and spoke with night RN at [facility] He discharged home yesterday from facility They had noted exposed hardware last week, cultured wound which has not grown and started o n PO levofloxacin 500mg daily and augmentin on 09/02 He was seen by Dr Castellano at [facility] who requested transfer to [facility] for orthopedic eval From last cardiology [...] within 24 hours. Please refer to excellent record label intern H&P for full problem based plan. ILIR SPIVEY MD Internal Medicine, PGY-3 Pager: [phone] documented in this encou nter Plan of [...] + + | [facility] | [address] | [place] [address] | | | SERVICES, CORE | PARK [...] Hematopathology | | | | | | [facility] Toyin CHANDLER, | | | | | | PhD - | | | | | | HematopathologistPatholo | | | | | | gy, [facility] | | | | | | [facility] | | | | | | electronic [...] | + + + + + | [facility] | [address] | [place] [address] | | | PATHOLOGY | [address] [...] | + + + + + | [facility] | [address] | [place] [address] | | | SERVICES, CORE | PARK [...] | + + + + + | [facility] | [address] | [place] [address] | | | SERVICES, CORE | DWIGHT [...] | | | LABORATORY | | | [place] | | | SERVICES, | | | [...] | + + + + + | [facility] | [address] | [place] [address] | | | FERMÍN ZABALA | PARK [...] | + + + + + | [facility] | [address] | [place] [address] | | | SERVICES, CORE | DWIGHT [...] | + + + + + | [facility] | [address] | [place] [address] | | | VJ, FERMÍN | PARK [...] | + + + + + | [facility] | [address] | [place] [address] | | | SERVICES, CORE | DWIGHT [...] [facility] | [address] | [place] [address] | | | SERVICES, CORE | PARK [...] | + + + + + | [facility] | [address] | [place] [address] | | | VJ, CORE | DWIGHT [...] | | | LABORATORY | | | [place] | | | SERVICES, | | | [...] | + + + + + | [facility] | [address] | [place] [address] | | | SERVICES, CORE | DWIGHT [...] | + + + + + | [facility] | [address] | [place] [address] | | | SERVICES, CORE | DWIGHT [...] | | | LABORATORY | | | [facility] | | | SERVICES, | | | [...] MDRD equation recommended by the National | [facility] | | Kidney Disease Education Program. [...] | + + + + + | [facility] | [address] | [place] [address] | | | SERVICES, CORE | [address] | | | + + + + + X-RAY PORTABLE CHEST PICC LINE CHECK (09/09/2019 7:29 PM PDT) + + | Specimen | + + | | + + + + + | Narrative | Performed At | + + + | EXAM: DC CHEST PICC LINE CHECK HISTORY: Verify Catheter [...] Interface - 09/09/2019 8:46 PM PDT EXAM: DC CHEST | | PICC LINE CHECK HISTORY: [...] At | + + + | EXAM: DC CHEST 1 VIEW HISTORY: PICC placement COMPARISON: [...] Interface - 09/09/2019 4:46 PM PDT EXAM: DC CHEST 1 | | VIEW HISTORY: PICC [...] Assisted by Marty | | | Golden SELF PROPELLED MINING MACHINE OPERATOR VAT Pre-Procedure Consent: written consent | | | obtained Consent given by: Patient Patient identity confirmed per | | | protocol: Yes Team Pause: Immediatly prior to the procedure a pause | | | per protocol was called. A pause verifies correct patient, | | | procedure, equipment, desktop support specialist and site/side marked as | [...] vein. Catheter lot number: | | | [id number] with a length of 55 cm was [...] [facility] | [address] | [place] [address] | | | SERVICES, CORE | PARK [...] | + + + + + | [facility] | [address] | [place] [address] | | | SERVICES, CORE | PARK [...] [facility] | [address] | [place] [address] | | | VJ, CORE | DWIGHT [...] | + + + + + | [facility] | [address] | [place] [address] | | | SERVICES, CORE | [address] | | | + + + + + X-RAY TIBIA & FIBULA 2 VIEWS LT (09/08/2019 1:56 PM PDT) + + | Specimen | + + | | + + + + + | Narrative | Performed At | + + + | EXAM: TIBIA AND FIBULA 2 VIEWS LT HISTORY: s/p Hardware Removal | [facility] | | COMPARISON: 09/03/2019 FINDINGS: There has [...] [facility] | [address] | [place] [address] | | | SERVICES, CORE | PARK [...] | | | LABORATORY | | | [facility] | | | SERVICES, | | | [...] MDRD equation recommended by the National | [facility] | | Kidney Disease Education Program. Estimated GFR Interpretive | LABORATORY | | Information: <60 mL/min/1.73 sq m Chronic Kidney | SERVICES, [facility] | | Disease <15 mL/min/1.73 sq m [...] | + + + + + | [facility] | [address] | [place] [address] | | | SERVICES, [facility] | [address] | [...] | + + + + + | [facility] | [address] | [place] [address] | | | SERVICES, CORE | PARK [...] + | [facility] | [address] | [place], [place] | | | LUISA STE[facility] | [facility] | [address] | | | TESTS | | | [...] [facility] | [address] | [place] [address] | | | VJ, CORE | [address] [...] | | | LABORATORY | | | [place] | | | SERVICES, | | | [...] MDRD equation recommended by the National | [facility] | | Kidney Disease Education Program. [...] | + + + + + | [facility] | [address] | [place] [address] | | | SERVICES, CORE | [address] [...] [facility] | [address] | [place] [address] | | | SERVICES, | [address] [...] [facility] | [address] | [place] [address] | | | SERVICES, | [address] [...] | + + + + + | [facility] | [address] | [place] [address] | | | SERVICES, CORE | DWIGHT [...] | + + + + + | [facility] | [address] | [place] [address] | | | SERVICES, CORE | [address] [...] DEPT OF | [address] | [place], [place] | | | CARDIOLOGY | [address] | [address] | | + + + + + [...] [facility] | [address] | [place], [place] | | | ALEX MORAN [facility] | [facility] | [address] | | | TESTS | | | [...] B for complete identification and susceptibilities | [place] | | Enterococcus faecalis Unable to continue [...] | + + + + + | [facility] - | [address] | [place] [address] | | | [place] | | | [...] + | [facility] - | [address] | [place] [address] | | | [facility] - | | [facility], site B for complete identification and susceptibilities | [place] | | Enterococcus faecalis Refer to culture collected 09/04/2019 at [facility], | | | site E for susceptibilities [...] + | [facility] - | [address] | [place] [address] | | | [place] | | | [...] squamous epithelial cells Rare polymorphonuclear cells | [facility] | | No organisms seen | | [...] | + + + + + | [facility] - | [address] | [place] [address] | | | [place] | | | [...] + | [facility] - | [address] | [place] [address] | | | [place] | | | | + + + [...] | + + + + + | [facility] | [address] | [place] [address] | | | SERVICES, CORE | PARK [...] [facility] | [address] | [place] [address] | | | SERVICES, CORE | PARK [...] | | | LABORATORY | | | [facility] | | | SERVICES, | | | [...] MDRD equation recommended by the National | [facility] | | Kidney Disease Education Program. Estimated GFR Interpretive | LABORATORY | | Information: <60 mL/min/1.73 sq m Chronic Kidney | SERVICES, [facility] | | Disease <15 mL/min/1.73 sq m [...] | + + + + + | [facility] | [address] | [place] [address] | | | SERVICES, FERMÍN | [address] [...] | + + + + + | [facility] | [address] | [place] [address] | | | SERVICES, CORE | PARK [...] | + + + + + | [facility] | [address] | [place] [address] | | | [facility], [facility] | [address] | [...] | + + + + + | [facility] | [address] | [place] [address] | | | SERVICES, SPECIAL | PARK [...] + | [facility] - | [address] | [place] [address] | | | [place] | | | [...] | + + + + + | [facility] | [address] | [place] [address] | | | SERVICES, CORE | DWIGHT [...] | + + + + + | [facility] | [address] | [place] [address] | | | SERVICES, CORE | [address] [...] [facility] | [address] | [place] [address] | | | VJ, FERMÍN | PARK [...] | + + + + + | [facility] | [address] | [place] [address] | | | SERVICES, CORE | [address]IGHT [...] [facility] | [address] | [place], [place] | | | ALEX [facility] | [facility] | [address] | | | TESTS | | | [...] [facility] | [address] | [place] [address] | | | SERVICES, CORE | [address] | | | + + + + + ETHANOL (ALCOHOL), BLOOD (09/03/2019 7:24 PM PDT) + +-------+ + + + | Component | Value | Ref Range | Performed | Pathologist | | | | | At | Signature | + +-------+ + + + | ETHANOL | <10 | <10 mg/dL | [facility] | | | (ALCOHOL) | | | [...] [facility] | [address] | [place] [address] | | | SERVICES, CORE | [address] [...] [facility] | [address] | [place] [address] | | | SERVICES, CORE | PARK [...] [facility] | [address] | [place] [address] | | | SERVICES, CORE | PARK [...] | | | LABORATORY | | | [facility] | | | SERVICES, | | | [...] MDRD equation recommended by the National | [facility] | | Kidney Disease Education Program. [...] | + + + + + | [facility] | [address] | [place] [address] | | | SERVICES, CORE | [address] | | | + + + [...] [facility] | [address] | [place] [address] | | | SERVICES, | [address] [...] | + + + + + | [facility] | [address] | [place] [address] | | | SERVICES, CORE | PARK [...] | + + + + + | [facility] | [address] | [place] [address] | | | SERVICES, CORE | PARK [...] | + + + + + | [facility] | [address] | [place] [address] | | | SERVICES, CORE | [address] [...] | | | | First dose on [facility] 09/04/19 at | | AM PST [...] | | | | | dose on [facility] 09/04/19 at 0900, | | AM [...]
--- OUTSIDE RECORDS SUMMARY | ~2020-05-24 | XMS | Encounter Summary ---
Demographics + + + | Address | [address] | | | [place] [address] | + + + | Home Phone | | + + + | Preferred Language | Unknown | + + + | Marital Status | Single | + + + | Jain Affiliation | Unknown | + + + | Race | Unknown | + + + | Ethnic Group | Unknown | + + + Author + + + | Author | [facility] | | | and [place] | + + + | Organization | [facility] | | | [...] Team Providers + +------+ + | Care Mortgage Underwriter Name | Role | Phone | + [...] + + | 10/29/ | Telephone | [facility] | Scotty Donovan DO | Coordination Of Care | | 2019 | | INFECTIOUS DISEASE | [address] | | | | | [address] | [place] [address] | | | | | [place], [place] | [phone] | | | | | [address] | | | | | | [phone] | | | +--------+ + + + [...] antibiotic s list. elephone E Beatriz Cruz Perishable Freight Inspector - 10/29/2019 3:08 PM PSTPatient to end Antibiot ics on 10/31. Order to D/C picc line on 10/31 send with Patient to [facility]. Beatriz Patel. CMA docum ented in this encounter Plan of Treatment Not on filedocumented as of this encounter Visit Diagnoses Not on filedocumented in this encounter"
--- OUTSIDE RECORDS SUMMARY | ~2020-05-24 | XMS | Encounter Summary ---
Demographics + + + | Address | [address] | | | [place] [address] | + + + | Home Phone | | + + + | Preferred Language | Unknown | + + + | Marital Status | Single | + + + | Sabianism Affiliation | NRP | + + + | Race | White | + + + | Ethnic Group | Not or | + + + Author + + + | Author | [facility] | + + + | Organization | [facility] | + + + | [...] Team Providers + +------+ + | Care Professional Soccer Player Name | Role | Phone | + [...] | | | | | Zulma Mcfadden [place], | | | | | | [place] [address] | | | +--------+--------+ + + + [...]
--- OUTSIDE RECORDS SUMMARY | ~2020-05-24 | XMS | Encounter Summary ---
Demographics + + + | Address | [address] | | | [place] [address] | + + + | Home Phone | | + + + | Preferred Language | Unknown | + + + | Marital Status | Single | + + + | Nondenominational Affiliation | NRP | + + + [...] Providers + +------+ + | Care Vacuum Evaporation Operator Name | Role | Phone | [...] | | | [address] | [facility] | disease; Transfer of | | | | Loop Physician's | [place], [place] | Care | | | | [address] | [address] | | | | | [place], [place] | [phone] | | | | | [address] | | | | | | [phone] | | | +--------+ + + + [...]
--- OUTSIDE RECORDS SUMMARY | ~2020-05-24 | XMS | Encounter Summary ---
Demographics + + + | Address | [address] | | | [place] [address] | + + + | Home Phone [...] Providers + +------+ + | Care Teacher Vocational Training Name | Role | Phone | + [...] | 10/02/ | Documentati | Infectious | Tirsh Baum, | Lab Results | | 2019 | on | [facility] at [facility] | MD [address] | | | | | [address] | [address] | | | | | Loop Physician's | [place], [place] | | | | | Vikas, [facility] floor | [address] | | | | | [place], [place] | [phone] | | | | | [address] | | | | | | [phone] | | | +--------+ + + + [...]
--- OUTSIDE RECORDS SUMMARY | ~2020-05-24 | XMS | Encounter Summary ---
Demographics + + + | Address | [address] | | | [place] [address] | + + + | Home Phone [...] Team Providers + +------+ + | Care Space And Missile Defense Operations Name | Role | Phone | + [...] | | | | | Zulma Mcfadden [place], | | | | | | [place] [address] | | | +--------+--------+ + + + [...]
--- OUTSIDE RECORDS SUMMARY | ~2020-05-24 | XMS | Encounter Summary ---
Demographics + + + | Address | [address] | | | [place] [address] | + + + | Home Phone [...] Team Providers + +------+ + | Care Metal Welder Name | Role | Phone | + [...] Lazaro | | | | | [facility] | [address] | | | | | Hospital Admitting | [place], [place] | | | | | Desk Located on the | [address] | | | | | 9 floor | [phone] | | | | | [place], [place] | | | | | | [address] | | | +--------+ + + + [...] | | Oral; Cuffed; 09/06/19; 1353 | HADOOP DEVELOPER | HADOOP DEVELOPER | +--------+ + + + | Periph | 09/06/19; 1141; Sharif Gerber HADOOP DEVELOPER; | 09/06/19 1141 by | 09/08/19 1256 by | | eral | Right; Hand; 18 g; Positive; | Rolanda Gerber, | Blair Brewer RN | | IV | 09/08/19; 1256; Catheter damage, | HADOOP DEVELOPER | | | | Site problems, No [...]
--- OUTSIDE RECORDS SUMMARY | ~2020-05-24 | XMS | Encounter Summary ---
Demographics + + + | Address | [address] | | | [place] [address] | + + + | Home Phone [...] + + + | Author | [facility] | + + + | Organization | [facility] | + + + | Address [...] Team Providers + +------+ + | Care Health Occupations Instructor Name | Role | Phone | [...] [address] | | | | | [address] | [address] | | | | | Loop Physician's | [place], [place] | | | | | [address] | [address] | | | | | [place], [place] | [phone] | | | | | [address] | | | | | | [phone] | | | +--------+ + + + [...]
--- OUTSIDE RECORDS SUMMARY | ~2020-05-24 | XMS | Encounter Summary ---
Demographics + + + | Address | [address] | | | [place] [address] | + + + | Home Phone | | + + + | Preferred Language | Unknown | + + + | Marital Status | Single | + + + | Confucianism Affiliation | NRP | + + + [...] Team Providers + +------+ + | Care Chief Risk Officer Name | Role | Phone | [...]
--- OUTSIDE RECORDS SUMMARY | ~2020-05-24 | XMS | Encounter Summary ---
Demographics + + + | Address | [address] | | | [place] [address] | + + + | Home Phone | | + + + | Preferred Language | Unknown | + + + | Marital Status | Single | + + + | Anabaptism Affiliation | NRP | + + + | Race | White | + + + | Ethnic Group | Not or | + + + Author + + + | Author | [facility] | + + + | Organization | [facility] | + + + | Address [...] Team Providers + +------+ + | Care Control Clerk Head Name | Role | Phone | + [...] | 2020 | cheduled | [facility] | [address] | | | | | for Health and | [facility] [place] | | | | | Healing [address] | [address] | | | | | Ave [facility] for | [phone] | | | | | Health and Healing, | | | | | | [facility] | | | | | | Floor [place], [place] | | | | | | [address] | | | | | | [phone] | | | +--------+ + + + [...] might be different fro joseph the original. [facility] Today's date: 10/14/2019 Orthopaedic [...] doctor locally. . He is still taking [facility] woun d care. The wounds are almost [...] 3 views Cory Carmen MD [facility] [address] Mailcode: [address] [place] [address] The patients encounter was accomplished via a telephone call today due to COVID-19 precauti onary measures to limit the patient's unnecessary exposure. Patient agrees to a telephone en counter for today's visit. They understand they may be responsible for the balance after ins urance processes the claim. The visit took place via telephone when I was located at a [facility] site at [facility]. The patient stated they were located at [...]
--- OUTSIDE RECORDS SUMMARY | ~2020-05-24 | XMS | Encounter Summary ---
Demographics + + + | Address | [address] | | | [place] [address] | + + + | Home Phone [...] Team Providers + +------+ + | Care Rn Paralegal Name | Role | Phone | + +------+ + | Dustin Perez MD | PCP | | + +------+ + Encounter Details +--------+ + + + + | Date | Type | Department | Care Team | Description | +--------+ + + + + | 09/25/ | Documentati | Infectious | rTish Baum, | | | 2019 | on | [facility] at [facility] | [address] | | | | | [address] | [address] | | | | | Loop Physician's | [place], [place] | | | | | Vikas, [facility] floor | [address] | | | | | [place], [place] | [phone] | | | | | [address] | | | | | | [phone] | | | +--------+ + + + [...]
--- OUTSIDE RECORDS SUMMARY | ~2020-05-24 | XMS | Encounter Summary ---
Demographics + + + | Address | [address] | | | [place] [address] | + + + | Home Phone [...] Team Providers + +------+ + | Care Blister Packaging Machine Operator Name | Role | Phone [...] | | | | | | Rd [facility] | | | | | | Hospital Admitting | | | | | | Desk Located on the | | | | | | 9th floor | | | | | | [place], [place] | | | | | | [address] | | | +--------+ + + + [...]
--- OUTSIDE RECORDS SUMMARY | ~2020-05-24 | XMS | Encounter Summary ---
Demographics + + + | Address | [address] | | | [place] [address] | + + + | Home Phone | | + + + | Preferred Language | Unknown | + + + | Marital Status | Single | + + + | Adventist Affiliation | Unknown | + + + | Race | Unknown | + + + | Ethnic Group | Unknown | + + + Author + + + | Author | [facility] | | | and [place] | + + + | Organization | [facility] | [...] Team Providers + +------+ + | Care Rectangular Tank Cooper Name | Role | Phone | + [...] Provider Unknown | | | | | [place], [place] | [phone] | | | | | [address] | | | | | | [phone] | | | +--------+ + + + [...]
--- OUTSIDE RECORDS SUMMARY | ~2020-05-24 | XMS | Encounter Summary ---
Demographics + + + | Address | [address] | | | [place] [address] | + + + | Home Phone [...] Team Providers + +------+ + | Care Regulator Tester Name | Role | Phone | [...] | | | [address] | [facility] | disease; Transfer of | | | | Loop Physician's | [place], [place] | Care | | | | [address] | [address] | | | | | [place], [place] | [phone] | | | | | [address] | | | | | | [phone] | | | +--------+ + + + [...]
--- OUTSIDE RECORDS SUMMARY | ~2020-05-24 | XMS | Encounter Summary ---
Demographics + + + | Address | [address] | | | [place] [address] | + + + | Home Phone | | + + + | Preferred Language | Unknown | + + + | Marital Status | Single | + + + | Nondenominational Affiliation | Unknown | + + + | Race | Unknown | + + + | Ethnic Group | Unknown | + + + Author + + + | Author | [facility] | | | and [place] | + + + | Organization | [facility] | | | [...] Team Providers + +------+ + | Care Cardiac Cath Lab Radiology Technologist Name | Role | Phone | + [...] | | | | | infection, | [place], [place] | | | | | | unspecified | [address] | | | | | | site | Phone: | | | | | | Chronic | [phone] | | | | | | multifocal | Fax: | | | | | | osteomyeliti | [phone] | | | | | | s, multiple | | | | | | | sites (HCC) | | | | | | | S.aureus & | | | | | | | E.faecalis, | | | | | | | left leg | | | | | | | Procedures | | | | | | | [place] OFFICE | | | | | | | OUTPATIENT | | | | | | | VISIT 25 | | | | | | | MINUTES | | | +--------+--------+ + + + + Encounter Details +--------+---------+ + + + | Date | Type | Department | Care Team | Description | +--------+---------+ + + + | 09/29/ | Office | [facility] | Jaspreet Gunderson, | Necrotizing soft | | 2019 | Visit | INFECTIOUS DISEASE | Liang Quintana MD | tissue infection | | | | [address] | [address] | (Primary Dx); | | | | [place], [place] | [place] [address] | Necrotizing | | | | [address] | [phone] | fasciitis of lower | | | | [phone] | | leg ([facility]); Infected | | | | | | orthopedic implant, | | | | | | initial encounter | | | | | | ([facility]); Polymicrobial | | | | | | bacterial | | | | | | infection; termite exterminator | | | | | | (current) [...] an active role in your treatment. A [employer] gs your supplies, and a nurse shows [...] the pump comes on. Date Last Reviewed: 04/12/201819998192-[address] [employer] [place] [address]. All righ ts reserved. This information is [...] spreading among healthy children and adults outside [facility] healthcare system. A person may be a [...] condition or its treatment Living in a chcf or long-term care facility Recent antibiotic therapy Diabetes Kidney dialysis HIV infection Injection drug use or sharing needles Nursing Home or long-term time Living in any crowded facility, such [...] Outside healthcare settings, MRSA usually spreads through hbgk-ry-ogld contact, shared t owels or athletic equipment, [...] soap and water or an alcohol-based hand kettle cleaner before and after treating each patient. [...] water aren't available, use an alcohol-based hand kettle cleaner. ? Squeeze about a tablespoon of kettle cleaner into the palm of one hand. ? Rub your hands together briskly, cleaning the backs of your hands, the palms, between you r fingers, and up the wrists. ? Rub until the kettle cleaner is gone and your hands are completely dry. Keep cuts and scrapes clean and covered until they heal. Avoid contact with the wounds or bandages of others. Avoid sharing towels, razors, clothing, and athletic equipment. Date Last Reviewed: 08/12/201619996533-3225 [employer]. [address] [place] [address]. All [facility] ts reserved. This information is not intended as a substitute for professional medical care. Always follow your healthcare professional's instructions. documented in this encounter Progress Notes Liang Cho MD - 09/29/2019 1:[address] [facility] Service: Infectious Diseases Initial Outpatient [...] had apparently some cultures obtained at his [facility] facility which were reportedly negative. Prior to [...] 06, 2019 for wound closure. The patient's co crobiology showed Staphylococcus aureus (MRSA), Corynebacterium striatum, [...] file Gets together: Not on file Attends scientology service: Not on file Active member of [...] [facility] Read Only, CLEOPATRA Hardy ([id number]), editor publications Moses Webster ([id number]) on 06/30/20 2:25:41 PM [...] for Providers Interpreta tion. Confirmed by [facility]ite Read Only, CLEOPATRA Hardy ([id number]), editor publications Moses Webster ([id number]) on 06/30/20 2:25:41 PM [...] Infected orthopedic implant, initial encounter ([facility]) Polymicrobial bacterial infection residential (current) use of antibiotics - CBC with [...] CBC with | 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 | termite exterminator | Twice weekly for 4 | | Differential | | e | (current) use of | Occurrences starting | | | | | antibiotics MRSA | 09/29/2019 until | | | | | infection | 09/29/2020 | + +------+--------+ + + | Comprehensive | 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 | residential | Twice weekly for 4 | | Metabolic Panel | | e | (current) use of | Occurrences starting | | | | | antibiotics MRSA | 09/29/2019 until | | | | | infection | 09/29/2020 | + +------+--------+ + + | Vancomycin, Trough | 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 | residential | Twice weekly for 4 | | | | e | (current) use of | Occurrences starting | | | | | antibiotics MRSA | 09/29/2019 until | | | | | infection | 09/29/2020 | + +------+--------+ + + | C-Reactive Protein | 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 | termite exterminator | Weekly for 2 | | | | e | (current) use of | Occurrences starting | | | | | antibiotics MRSA | 09/29/2019 until | | | | | infection | 09/29/2020 | + +------+--------+ + + | Sedimentation Rate | 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 | residential | Weekly for 2 | | | [...] Polymicrobial bacterial infection | + + | residential (current) use of antibiotics | + + [...]
--- OUTSIDE RECORDS SUMMARY | ~2020-05-24 | XMS | Encounter Summary ---
Demographics + + + | Address | [address] | | | [place] [address] | + + + | Home Phone | | + + + | Preferred Language | Unknown | + + + | Marital Status | Single | + + + | Hoahaoism Affiliation | NRP | + + + [...] Team Providers + +------+ + | Care Fuel Oil Clerk Name | Role | Phone | + [...] N[facility] L[facility] | | | | | [address] | | | | | Loop Physician's | [place], [place] | | | | | [address] | [address] | | | | | [place], [place] | [phone] | | | | | [address] | | | | | | [phone] | | | +--------+ + + + [...]
--- OUTSIDE RECORDS SUMMARY | ~2020-05-24 | XMS | Encounter Summary ---
Demographics + + + | Address | [address] | | | [place] [address] | + + + | Home Phone | | + + + | Preferred Language | Unknown | + + + | Marital Status | Single | + + + | Orthodox Affiliation | NRP | + + + [...] Providers + +------+ + | Care Production Inspector Name | Role | Phone | [...] | | | | | unspecified | [place], [place] | | | | | | laterality | [address] | | | | | | Procedures | Phone: | | | | | | PHYSICAL | [phone] | | | | | | THERAPY | Fax: | | | | | | REFERRAL | [phone] | | + +--------+ + + + [...] Rd | | | | | | [place], [place] | [place], [place] | | | | | | [address] | [address] | | | | | | | Phone: | | | | | | | [phone] | | | | | | | Fax: | | | | | | | [phone] | +--------+--------+ + + + + Encounter Details +--------+---------+ + + + | Date | Type | Department | Care Team | Description | +--------+---------+ + + + | 10/14/ | Office | Orthopaedics | Cory Carmen, | Ankle pain, | | 2019 | Visit | [facility] | [address] | unspecified | | | | for Health and | [place], [place] | chronicity, | | | | Healing [address] | [address] | unspecified | | | | [address] [facility] for | [phone] | laterality (Primary | | | | Health and Healing, | | Dx) | | | | | | | | | | Floor [place], [place] | | | | | | [address] | | | | | | [phone] | | | +--------+---------+ + + + [...] might be different fro joseph the original. [facility] Today's date: 10/14/2019 Orthopaedic Diagnoses: MRSA osteomyelitis of left calc/talus/tibia, Failed ankle fusion Surgeries: - 09/04/2019: LLE I&D, HWR of hindfoot IMN, Abx IMN, 4 compartment fasciotomies - 09/06/2019: LLE I&D, fasciotomy closure S: Mr. Monty An is a 69 year old male, he is now ~6wks since surgery. Currently he is NWB. He has remained at a [facility] facility following [facility] discharge for IV-Vanc and wound care. [...] as listed. Cory Carmen MD ORTHOPAEDICS AT [facility] [address] Mailcode: [address] [place] [address] Orders Placed This Encounter X-RAY [...]
--- OUTSIDE RECORDS SUMMARY | ~2020-05-24 | XMS | Encounter Summary ---
Demographics + + + | Address | [address] | | | [place] [address] | + + + | Home Phone | | + + + | Preferred Language | Unknown | + + + | Marital Status | Single | + + + | Mormon Affiliation | NRP | + + + | Race | White | + + + | Ethnic Group | Not or | + + + Author + + + | Author | [facility] | + + + | Organization | [facility] | + + + | [...] Team Providers + +------+ + | Care Ship'S Master Name | Role | Phone | + [...] AND | | | | Rd [facility] | [address] | DRAINAGE, FASCIOTOMY | | | | Hospital Admitting | [place], [place] | CLOSURE | | | | Desk Located on the | [address] | | | | | 9th floor | [phone] | | | | | [place], [place] | | | | | | [address] | | | +--------+---------+ + + + [...] Lockwood MD - 09/17/2019 12:07 PM PST [facility] Discharge Summary Discharging Provider: Johnathan Lockwood MD Discharging Attending Physician: To Henriquez MD PCP: Rio Huerta MD Admission Date: 09/03/2019 Discharge Date: 09/17/2019 Hospital Stay: 14 day(s) [facility] [place] . [phone] [facility] FOLLOW UP NEEDS: 1) Infectious Disease, [facility], ~10/08/2019 2) Orthopedi cs, [facility] in the Dr. Nella Parry ~10/20 Principal [...] hindfoot. 5. Placement of an external tissue route vending machine servicer, area other than breast. 6. Placement of [...] vancomycin trough levels - ID F/U in [place], ~10/08 timeframe - Wound check and suture removal by 09/26/2019; OK for SNF to remove sutures - Ortho F/U ~10/21 timeframe w/ Dr. Carmen in [facility] - Activity restrictions: LLE: NWB, [...] BLED 4. Former discussion s with his principal database developer decided against anticoagulation; on 81 mg aspirin [...] twenty-four hours. To be admixed per infusion [facility] standard policy and/or procedure. Indications: bone/joint [...] follow/manage patient "I certify that post-hospital inpatient long-term facility care is medically necessar y on a continuing basis for treatment of the same condition for which inpatient acute hospit al care was received." JOHNATHAN LOCKWOOD MD Discharge Destination - Selection Complete Service Provider Request Status Selected Services Address Phone Number Fax Number [facility] Selected Correction [address], [place] [address] Home Care Medical No service has been [...] re-check Contact information [address] [place] [phone] RIO HUERTA MD. Go on 09/24/2019. Specialty: Family Medicine Why: Appt: Tuesday, September 24, 2019 @ 08:40am. Address: [address] [place] [address], [address], [place], [place] Contact information [facility] [address] [place] [address] Surya Coffman MD. Go on 09/30/2019. Why: Appt: Monday, September 30, 2019 @ 09:45am Contact information [address], [place] [phone] Contact information for after-discharge care Discharge Destination [facility] . Service: Correction Contact information [address] [facility] [address] Discharge Physical Exam: Last 24 hour min/max [...] PGY - 3 | Internal Medicine | [id number] [facility] [place] Associated attestation - To Henriquez MD - [...] Primary Surrogate Decision Maker Josué An son [phone] TO HENRIQUEZ MD [address] electronic warfare technician Division of Hospital Medicine Department of Medicine [address] [place] [phone] documented in this encounter Discharge Instructions Discharge [...] follow/manage patient "I certify that post-hospital inpatient long-term facility care is medically necessar y on [...] (per patient w ++ 1st degree FH) Tow Driver re: skin/foot care (a la DM) 10) Alcohol use disorder, mild, in sustained remission, abuse 11) Encounter for long-term (current) use of antibiotics SURROGATE DECISION MAKER Surrogate Decision Maker Primary Surrogate Decision Maker Josué An son [phone] TO HENRIQUEZ MD [address] electronic warfare technician Division of Hospital Medicine Department of Medicine [address] [address] Amber Wan MD - 1 11/16/2018 7:13 [...] care, follow up recs - follow up: [facility] ID faculty with preference to schedule with [...] BLED 4. Former discussion s with his principal database developer decided against anticoagulation; on 81 mg aspirin daily (used to be 325 but reduced to 81 2/ "GI problems"). - held asa in s/o surgery, has been restarted - continue digoxin - goal resting rate <110 # bilateral lower extremity swelling Unclear etiology. Was seeing principal database developer who is prescribing torsemide 10 mg daily [...] Dispo: patient ready to discharge tomorrow to [facility] in [place]. Code Status: Full Code Surrogate Decision Maker Primary Surrogate Decision Maker Josué An son [phone] This patient was staffed with Dr. To [...] there are not currnet signs of decompensation Tow Driver on his 'near miss' and importance of good 'liver care' in future 9) Neuropathy, hereditary sensory (per patient w ++ 1st degree FH) Not noted in 'history' but with suggestion of pes cavus, and ++ family history it does r aise the qn of Pjhjszi-Lvrwf-Ecukd Could have been contributor to osteo Tow Driver re: skin/foot care (a la DM) 10) Alcohol use disorder, mild, in sustained remission, abuse 11) Encounter for long-term (current) use of antibiotics SURROGATE DECISION MAKER Surrogate Decision Maker Primary Surrogate Decision Maker Josué An son [phone] TO HENRIQUEZ MD [address] electronic warfare technician Division of [facility] Medicine Department of Medicine [address] [place] [address] Amber Wan MD - 1 11/15/2018 6:26 [...] care, follow up recs - follow up: [facility] ID faculty with preference to schedule with [...] BLED 4. Former discussion s with his principal database developer decided against anticoagulation; on 81 mg aspirin daily (used to be 325 but reduced to 81 2/2 "GI problems"). - held asa in s/o surgery, has been restarted - continue digoxin - goal resting rate <110 # bilateral lower extremity swelling Unclear etiology. Was seeing principal database developer who is prescribing torsemide 10 mg daily [...] used majority of his medicare SNF days, nurse case manager working to determine whethe r paying out of pocket is an option vs investigate other dispo options. Code Status: Full Code Surrogate Decision Maker Primary Surrogate Decision Maker Josué An son [phone] This patient was staffed with Dr. To [...] care, follow up recs - follow up: [facility] ID faculty with preference to schedule with [...] BLED 4. Former discussion s with his principal database developer decided against anticoagulation; on 81 mg aspirin daily (used to be 325 but reduced to 81 2/2 "GI problems"). - held asa in s/o surgery, has been restarted - continue digoxin - goal resting rate <110 # bilateral lower extremity swelling Unclear etiology. Was seeing principal database developer who is prescribing torsemide 10 mg daily [...] used majority of his medicare SNF days, nurse case manager working to determine whethe r paying out of pocket is an option vs investigate other dispo options. Code Status: Full Code Surrogate Decision Maker Primary Surrogate Decision Maker Josué An son [phone] This patient was staffed with Dr. To [...] stenosis or insuff iciency: Aug 26, 2018: [facility]) 7) Essential hypertension 8) "Cirrhosis, Laennec's" (HCC) [...] it does r aise the qn of Ufzjepi-Dqqul-Vfcbr Could have been contributor to osteo Tow Driver re: skin/foot care (a la DM) 10) Alcohol use disorder, mild, in sustained remission, abuse 11) Encounter for long-term (current) use of antibiotics SURROGATE DECISION MAKER Surrogate Decision Maker Primary Surrogate Decision Maker Josué An son [phone] TO HENRIQUEZ MD [address] electronic warfare technician Division of Hospital Medicine Department of Medicine [facility] & [address] [address] o zuluaga MD - 09/13 12:33 PM [...] stenosis or insuff iciency: Aug 26, 2018: [facility]) 7) Essential hypertension 8) "Cirrhosis, Laennec's" (HCC) [...] it does r aise the qn of Yvtpxnv-Temql-Knavp Could have been contributor to osteo Tow Driver re: skin/foot care (a la DM) 10) Alcohol use disorder, mild, in sustained remission, abuse 11) Encounter for long-term (current) use of antibiotics SURROGATE DECISION MAKER Surrogate Decision Maker Primary Surrogate Decision Maker Josué An son [phone] TO HENRIQUEZ MD [address] electronic warfare technician Division of Hospital Medicine Department of Medicine [address] [place] [address] ateJohnathan victor MD - 12/2018 11:07 AM [...] care, follow up recs - follow up: [facility] ID faculty with preference to schedule with [...] BLED 4. Former discussion s with his principal database developer decided against anticoagulation; on 81 mg aspirin daily (used to be 325 but reduced to 81 2/2 "GI problems"). - held asa in s/o surgery, has been restarted - continue digoxin - goal resting rate <110 # bilateral lower extremity swelling Unclear etiology. Was seeing principal database developer who is prescribing torsemide 10 mg daily [...] used majority of his medicare SNF days, nurse case manager working to determine whethe r paying out of pocket is an option vs investigate other dispo options. Code Status: Full Code Surrogate Decision Maker Primary Surrogate Decision Maker Josué An son [phone] This patient was staffed with Dr. To Henriquez, who agrees with the assessment and plan unle ss otherwise stated. Johnathan Lockwood MD PGY - 3 | Internal Medicine | [id number] [facility] To Mendez MD - 11/2018 8:01 [...] stenosis or insuff iciency: Aug 26, 2018: [facility]) 7) Essential hypertension 8) "Cirrhosis, Laennec's" (HCC) [...] it does r aise the qn of Exzzcdj-Yklrf-Kklkl Could have been contributor to osteo Tow Driver re: skin/foot care (a la DM) 10) Alcohol use disorder, mild, in sustained remission, abuse 11) Encounter for long-term (current) use of antibiotics SURROGATE DECISION MAKER Surrogate Decision Maker Primary Surrogate Decision Maker Josué An son [phone] I spent ~40 minutes in the care of this patient. Greater than 50% of the time was spent co unseling and coordination of care, including visit x 3; extensive chart review (on ramos) TO HENRIQUEZ MD [address] electronic warfare technician Division of Hospital Medicine Department of Medicine [facility] & [address] [place] [address] auri Strickland MD - 09/12/2019 7:07 AM [...] care, follow up recs - follow up: [facility] ID faculty with preference to schedule with [...] BLED 4. Former discussion s with his principal database developer decided against anticoagulation; on 81 mg aspirin daily (used to be 325 but reduced to 81 2/2 "GI problems"). - held asa in s/o surgery, has been restarted - continue digoxin - goal resting rate <110 # bilateral lower extremity swelling Unclear etiology. Was seeing principal database developer who is prescribing torsemide 10 mg daily [...] used 90/100 of his medicare SNF days, nurse case manager working to determine whether paying out of pocket is an option vs investigate other dispo options. Code Status: Full Code Surrogate Decision Maker Primary Surrogate Decision Maker Josué An son [phone] This patient was staffed with Dr. To Henriquez, who agrees with the assessment and plan unle ss otherwise stated. Gauri Strickland MD Internal Medicine [id number] signed by To Henriquez MD at 09/12/2019 [...] care, follow up recs - follow up: [facility] ID faculty with preference to schedule with [...] BLED 4. Former discussion s with his principal database developer decided against anticoagulation; on 81 mg aspirin daily (used to be 325 but reduced to 81 2/2 "GI problems"). - held asa in s/o surgery, has been restarted - continue digoxin - goal resting rate <110 # bilateral lower extremity swelling Unclear etiology. Was seeing principal database developer who is prescribing torsemide 10 mg daily [...] used 90/100 of his medicare SNF days, nurse case manager working to determine whether paying out of pocket is an option vs investigate other dispo options. Code Status: Full Code Surrogate Decision Maker Primary Surrogate Decision Maker Josué An son [phone] This patient was staffed with Dr. Huerta, [...] eager to contin ue conversation with his nurse case manager about discharge planning. Physical Examination: [...] care, follow up recs - follow up: [facility] ID faculty with preference to schedule with [...] BLED 4. Former discussion s with his principal database developer decided against anticoagulation; on 81 mg aspirin daily (used to be 325 but reduced to 81 2/2 "GI problems"). - held asa in s/o surgery, has been restarted - continue digoxin - goal resting rate <110 # bilateral lower extremity swelling Unclear etiology. Was seeing principal database developer who is prescribing torsemide 10 mg daily [...] used 90/100 of his medicare SNF days, nurse case manager working to determine whether paying out of pocket is an option vs investigate other dispo options. Code Status: Full Code Surrogate Decision Maker Primary Surrogate Decision Maker Josué An son [phone] This patient was staffed with Dr. Huerta, who agrees with the assessment and plan unless otherwise stated. Gauri Strickland MD Internal Medicine [id number] signed by Tiffanie Huerta MD at 09/10/2019 [...] has not been an issue. Enjoys working [facility] physical therapy. Denies dyspnea, nausea, abdominal pain, constipation. Fine with getting PICC line and understands need for correction IV antibiotics. Physical Examination: Last 24 hour [...] care, follow up recs - follow up: [facility] ID faculty with preference to schedule with [...] BLED 4. Former discussion s with his principal database developer decided against anticoagulation; on 81 mg aspirin daily (used to be 325 but reduced to 81 2/2 "GI problems"). - held asa in s/o surgery, has been restarted - continue digoxin - goal resting rate <110 # bilateral lower extremity swelling Unclear etiology. Was seeing principal database developer who is prescribing torsemide 10 mg daily [...] Primary Surrogate Decision Maker Josué An son [phone] This patient was staffed with Dr. Huerta, who agrees with the assessment and plan unless otherwise stated. Gauri Strickland MD Internal Medicine [id number] signed by Tiffanie Huerta MD at 09/10/2019 [...] hindfoot. 5. Placement of an external tissue route vending machine servicer, area other than breast. 6. Placement of [...] until further notice, ID consult for exterminator termite plan 5. Special Concerns: case managment for discharge planning, likely discharge to SNF in [facility] Wound Care consulted 6. Dressings/Drains: [...] ok to discharge from ortho perspective o wve OPAT plan and dispo arrangements have been [...] 2 seconds Aidan Antonio MD Orthopedic Surgery [id number] 11:15 AM Cory Shaikh MD - 09/09/2019 [...] the plan as listed. Cory Carmen MD [facility] [address] [place] [address] Cory Carmen Gauri Walsh MD - 09/08/2019 7:27 AM PDT General Internal Medicine 3 Progress Note 24 Hour Events: Pharmacy completed med rec via SNF MAR records per pharm: "Torsemide, potassium chloride, A SA, MVI, vitamin B12, and thiamine were added to [employer] medication list. Of note, patient has n [...] BLED 4. Former discussion s with his principal database developer decided against anticoagulation; on 81 mg aspirin daily (used to be 325 but reduced to 81 2/2 "GI problems"). - held asa in s/o surgery, has been restarted - continue digoxin - goal resting rate <110 # bilateral lower extremity swelling Unclear etiology. Was seeing principal database developer who is prescribing torsemide 10 mg daily [...] Primary Surrogate Decision Maker Josué An son [phone] This patient was staffed with Dr. Huerta, who agrees with the assessment and plan unless otherwise stated. Gauri Strickland MD Internal Medicine [id number] signed by Tiffanie Huerta MD at 09/08/2019 [...] present. - he has been comfortable at [facility] assisted living with aggressive PT in the past [facility] is close to [place], his home. Deepthi Collazo AGACNP - 09/08/2019 [...] hindfoot. 5. Placement of an external tissue route vending machine servicer, area other than breast. 6. Placement of [...] until further notice, ID consult for exterminator termite plan 5. Special Concerns: case managment for discharge planning, likely discharge to SNF in [facility] Wound Care consulted 6. Dressings/Drains: [...] capillary refill < 2 seconds Deepthi Collazo, [facility] Orthopaedic Trauma Surgery Pager [phone] Associated attestation - Cory Carmen MD - [...] input. I will be following this patient correction, rather than Dr stafford or Elan. I discussed the diagnosis, imaging studies, treatment plan and prognosis with the patient and resident. I have reviewed and the above note and agree with the plan. Please do not he sitate to call me for questions. Cory Carmen MD [facility] [address]A [address] [place] [address] Arnold Taylor MD - 09/07/2019 6:22 PM PDTFormatting of this note might be differ ent from the original. Orthopaedic Surgery Progress Note Patient: /Age: MRN: CSN: Date: Admission Date: Hospital Day: Attending Physician: Monty An 1950 69 y.o. [id number] 09/07/2019 09/03/2019 4 Garth Stafford MD Procedure(s) [...] 98%, BMI 27.94 kg/(m^2). Facility age [facility] for growth percentiles is 18 years. Exam: General: Well appearing, NAD CV/Resp: Breathing comfortably, Neurologic: Awake and alert MSK: LLE Dressings c/d/i Insensate about the lower leg/foot Wiggles toes WWP distally ARNOLD TAYLOR MD Pager: [phone] 09/07/2019 Associated attestation - Garth Stafford MD [...] good, concerns are c entered around exterminator termite places, specifically timeline of rehab and wound healing, as well a s what recovery will look like if he were to get a BKA. Reassured that no decisions need to be made now, can involve case management Sunday to look at SNFs. He has been to [facility] in [place] previously. Physical Examination: Last 24 hour min/max [...] BLED 4. Former discussion s with his principal database developer decided against anticoagulation; on 81 mg aspirin daily (used to be 325 but reduced to 81 2/2 "GI problems"). - held asa in s/o surgery, restart - continue digoxin - goal resting rate <110 # bilateral lower extremity swelling Unclear etiology. Was seeing principal database developer who is prescribing torsemide 10 mg daily [...] Primary Surrogate Decision Maker Josué An son [phone] This patient was staffed with Dr. Huerta, who agrees with the assessment and plan. Gauri Strickland MD Internal Medicine [id number] signed by Tiffanie Huerta MD at 09/07/2019 [...] in team note. - [facility] in [place] would be a reasonable SNF for him [...] seco nds Aidan Antonio MD Orthopedic Surgery [id number] 7:37 AM 09/06/2019 Gauri Walsh MD - [...] BLED 4. Former discussions with [facility] principal database developer decided against anticoagulation; on 81 mg aspirin daily (used to be 325 but r educed to 81 2/2 "GI problems"). - hold asa in s/o surgery - continue digoxin - goal resting rate <110 # bilateral lower extremity swelling Unclear etiology. Was seeing principal database developer who is prescribing torsemide 10 mg daily [...] Primary Surrogate Decision Maker Josué An son [phone] This patient was staffed with Dr. Huerta, who agrees with the assessment and plan. Gauri Strickland MD Internal Medicine [id number] signed by Tiffanie Huerta MD at 09/06/2019 [...] Orthopaedic Attending: Monty An 1950 69 y.o. [id number] 09/05/2019 09/03/2019 2 Olivier Ansari MD Diagnosis(es): [...] es pink and warm. Noel Baptiste MD [facility] [employer] Department of Orthopaedics & Rehabilitation [address] [place] [address] Mail Code: OP31 [facility] [address] Associated attestation - Olivier Ansari MD [...] BLED 4. Former discussions with [facility] principal database developer decided against anticoagulation; on 81 mg aspirin daily (used to be 325 but r educed to 81 2/ "GI problems"). - hold asa in s/o surgery - continue digoxin - goal resting rate <110 # bilateral lower extremity swelling Unclear etiology. Was seeing principal database developer who is prescribing torsemide 10 mg daily [...] Primary Surrogate Decision Maker Josué An son [phone] This patient was staffed with Dr. Huerta, who agrees with the assessment and plan. Gauri Strickland MD Internal Medicine [id number] signed by Tiffanie Huerta MD at 09/06/2019 [...] BLED 4 . Former discussions with his principal database developer decided against anticoagulation; on 81 mg aspirin daily (used to be 325 but reduced to 81 2/2 "GI problems"). - hold asa in s/o surgery - continue digoxin - goal resting rate <110 # bilateral lower extremity swelling Unclear etiology. Was seeing principal database developer who is prescribing torsemide 10 mg daily [...] Primary Surrogate Decision Maker Josué An son [phone] This patient was staffed with Dr. Huerta, [...] care at facility where he lives in [facility], was discharged to home I called and spoke with night RN at [facility] He discharged home yesterday from facility They had noted exposed hardware last week, cultured wound which has not grown and started o n PO levofloxacin 500mg daily and augmentin on 09/02 He was seen by Dr Castellano at [facility] who requested transfer to [facility] for orthopedic eval From last cardiology note [...] within 24 hours. Please refer to excellent architecture internship H&P for full problem based plan. ILIR SPIVEY MD Internal Medicine, PGY-3 Pager: [phone] documented in this encou nter Plan of [...] | + + + + + | [facility] | [address] | [place] [address] | | | SERVICES, CORE | DWIGHT [...] | | | | | | gy, [facility] | | | | | | [facility] | | | | [...] HEALTH SERVICES | [address] | [place] [address] | | | PATHOLOGY | [address] [...] | + + + + + | [facility] | [address] | [place] [address] | | | SERVICES, CORE | PARK [...] | + + + + + | [facility] | [address] | [place] [address] | | | SERVICES, FERMÍN | DWIGHT [...] | | | LABORATORY | | | [place] | | | SERVICES, | | | [...] MDRD equation recommended by the National | [facility] | | Kidney Disease Education Program. Estimated [...] | + + + + + | [facility] | [address] | [place] [address] | | | SERVICES, CORE | PARK [...] | [facility] | [address] | [place] [address] | | | SERVICES, CORE | PARK [...] [facility] | [address] | [place] [address] | | | SERVICES, CORE | PARK [...] | + + + + + | [facility] HOME | [address] | [place] [address] | | | VJ, FERMÍN | DWIGHT [...] [facility] | [address] | [place] [address] | | | SERVICES, CORE | PARK [...] | + + + + + | [facility] | [address] | [place] [address] | | | SERVICES, FERMÍN | PARK [...] | | | LABORATORY | | | KENYAN | | | SERVICES, | | | [...] | + + + + + | [facility] | [address] | [place] [address] | | | SERVICES, CORE | PARK [...] [facility] | [address] | [place] [address] | | | SERVICES, CORE | PARK [...] | | | LABORATORY | | | KENYAN | | | SERVICES, | | | [...] MDRD equation recommended by the National | [facility] | | Kidney Disease Education Program. Estimated [...] | + + + + + | [facility] | [address] | [place] [address] | | | SERVICES, CORE | [address] | | | + + + + + X-RAY PORTABLE CHEST PICC LINE CHECK (09/09/2019 7:29 PM PDT) + + | Specimen | + + | | + + + + + | Narrative | Performed At | + + + | EXAM: GA CHEST PICC LINE CHECK HISTORY: Verify Catheter [...] Interface - 09/09/2019 8:46 PM PDT EXAM: GA CHEST | | PICC LINE CHECK HISTORY: [...] | | 09/09/2019 8:45 PM Preliminary: Radha Satnoyo MD Dictation initiated: Yonatan Villarreal | 09/09/2019 [...] At | + + + | EXAM: GA CHEST 1 VIEW HISTORY: PICC placement COMPARISON: [...] Interface - 09/09/2019 4:46 PM PDT EXAM: GA CHEST 1 | | VIEW HISTORY: PICC [...] Diagnosis: Cellulitis LE Procedure location: Unit: Room: [facility] | | | Providers: Attending name: [...] correct patient, | | | procedure, equipment, data support specialist and site/side marked as | [...] vein. Catheter lot number: | | | [id number] with a length of 55 cm was [...] [facility] | [address] | [place] [address] | | | SERVICES, CORE | PARK [...] [facility] | [address] | [place] [address] | | | SERVICES, CORE | PARK [...] | + + + + + | [facility] | [address] | [place] [address] | | | SERVICES, CORE | DWIGHT [...] [facility] | [address] | [place] [address] | | | SERVICES, CORE | DWIGHT [...] [facility] | [address] | [place] [address] | | | SERVICES, CORE | PARK [...] | | | LABORATORY | | | KENYAN | | | SERVICES, | | | [...] | + + + + + | [facility] | [address] | [place] [address] | | | SERVICES, FERMÍN | DWIGHT [...] [facility] | [address] | [place] [address] | | | SERVICES, CORE | DWIGHT [...] [facility] | [address] | [place], [place] | | | [facility] | [facility] | [address] | | | TESTS | | | [...] | + + + + + | [facility] | [address] | [place] [address] | | | SERVICES, CORE | DWIGHT [...] | | | LABORATORY | | | KENYAN | | | SERVICES, | | | [...] MDRD equation recommended by the National | [facility] | | Kidney Disease Education Program. Estimated [...] | + + + + + | [facility] | [address] | [place] [address] | | | SERVICES, CORE | DWIGHT [...] [facility] | [address] | [place] [address] | | | SERVICES, | [address] [...] | + + + + + | [facility] | [address] | [place] [address] | | | SERVICES, | [address] [...] | | | + +---------+ + + [facility] VENOUS DUPLEX LOWER EXTREMITY LT (09/05/2019 [...] + + | [facility] | [address] | [place] [address] | | | SERVICES, CORE | PARK [...] | + + + + + | [facility] | [address] | [place] [address] | | | SERVICES, CORE | DWIGHT [...] [facility] | [address] | [place], [place] | | | CARDIOLOGY | [address] | [address] | | + + + + + [...] [facility] | [address] | [place], [place] | | | [facility] | [address] | [address] | | | TESTS | | | [...] B for complete identification and susceptibilities | [place] | | Enterococcus faecalis Unable to continue [...] + | [facility] - | [address] | [place] [address] | | | [facility] | | | | + + + [...] + | [facility] | [address] | [place] [address] | | | [place] | | | [...] Culture Report: Methicillin Resistant Staphylococcus aureus | [facility] - | | Presumptive identification Refer to culture collected 09/04/2019 at | [facility] - | | [address], site [address] for complete identification and susceptibilities | [place] | | Enterococcus faecalis Refer to culture [...] | + + + + + | [facility] - | [address] | [place] [address] | | | [place] | | | | + + + [...] Corynebacterium striatum No Propionibacterium isolated Gram | [facility] | | Stain: No squamous epithelial cells Rare polymorphonuclear cells | [place] | | No organisms seen | | [...] | + + + + + | [facility] - | [address] | [place] [address] | | | [place] | | | [...] + | [facility] - | [address] | [place] [address] | | | [facility] | | | | + + + [...] [facility] | [address] | [place] [address] | | | SERVICES, CORE | PARK [...] [facility] | [address] | [place] [address] | | | SERVICES, CORE | PARK [...] | | | LABORATORY | | | KENYAN | | | SERVICES, | | | [...] | + + + + + | [facility] | [address] | [place] [address] | | | SERVICES, CORE | DWIGHT [...] [facility] | [address] | [place] [address] | | | SERVICES, CORE | PARK [...] | + + + + + | [facility] | [address] | [place] [address] | | | FERMÍN ZABALA | DWIGHT [...] | [facility] | | considered for monitoring correction glycemic control in patients with: | LABORATORY [...] [facility] | [address] | [place] [address] | | | SERVICES, SPECIAL | PARK [...] | + + + + + | [facility] - | [address] | [place] [address] | | | [place] | | | | + + + [...] + + + + + | [facility] | [address] | [place] [address] | | | SERVICES, CORE | PARK [...] | + + + + + | [facility] | [address] | [place] [address] | | | FERMÍN ZABALA | DWIGHT [...] | + + + + + | [facility] | [address] | [place] [address] | | | FERMÍN ZABALA | DW[address] [...] | + + + + + | [facility] | [address] | [place] [address] | | | SERVICES, CORE | [address] | | | + + + + + BG-LAC,POC ISTAT (09/03/2019 7:25 PM PDT) + +-------+ + + + | Component | Value | Ref Range | Performed | Pathologist | | | | | At | Signature | + +-------+ + + + | TOTAL CO2 | 28 | 23 - 29 mmol/L | [facility] | | | [facility]ACIN[facility], POC | [...] [facility] | [address] | [place], [place] | | | [facility] | [address] | [address] | | | TESTS | | | [...] [facility] | [address] | [place] [address] | | | SERVICES, CORE | PARK [...] [facility] | [address] | [place] [address] | | | SERVICES, FERMÍN | PARK [...] | + + + + + | [facility] | [address] | [place] [address] | | | SERVICES, CORE | DWIGHT [...] [facility] | [address] | [place] [address] | | | SERVICES, CORE | PARK [...] | | | LABORATORY | | | KENYAN | | | SERVICES, | | | [...] MDRD equation recommended by the National | [facility] | | Kidney Disease Education Program. Estimated [...] | + + + + + | [facility] | [address] | [place] [address] | | | SERVICES, [facility] | [address] | | | + [...] [facility] | [address] | [place] [address] | | | SERVICES, | [address] [...] | + + + + + | [facility] | [address] | [place] [address] | | | SERVICES, CORE | DWIGHT [...] [facility] | [address] | [place] [address] | | | SERVICES, CORE | PARK [...] | + + + + + | [facility] | [address] | [place] [address] | | | SERVICES, FERMÍN | DWIGHT [...] | | | | | NEEDED, Starting [facility] 09/04/19 at | | 19 4:05 [...] PDT | | | | | Starting [facility] 09/04/19 at 1845, | | | [...] | | | | | dose on [facility] 09/04/19 at 0900, | | AM [...]
--- OUTSIDE RECORDS SUMMARY | ~2020-05-24 | XMS | Clinical Summary ---
Demographics + + + | Address | [address] | | | [place] [address] | + + + | Home Phone [...] Team Providers + +------+ + | Care Reinsurance Claims Analyst Name | Role | Phone | [...] + +--------+ | MEDICARE | MEDICA | [id number] | 12/13/19 | [phone] | | Medica | | | RE | | 07-Pre | 5 | | re | | | PART A | | sent | | | | | | AND B | | | | | | + +--------+ +--------+ + +--------+ | MODA | MODA | [id number] | 11/12/19 | [phone] | [address] | Indemn | | | HEALTH | | 19-Pre | 9 | [phone] | ity | | | MDCR | | sent | | [place], | | | | [place] | | | | [place] [address] | | + +--------+ +--------+ + +--------+ [...] | | al/Fam | | 1950 | [phone] | [address] [place], | | | ursula | | | [address] (Home) | [place] [address] | | | | | | [phone] | | | | | | | 2 (Work) | | + +--------+ +--------+ + + Advance Directives + + + + + | Type | Date Recorded | Patient | Explanation | | | | Claim Approver | | + + + + + | Power of | | | | | Brigadier | | | | + + + + + | Advance | | | | | Directive | | | | + + + + +"
--- OUTSIDE RECORDS SUMMARY | ~2020-05-24 | XMS | Encounter Summary ---
Demographics + + + | Address | [address] | | | [place] [address] | + + + | Home Phone | | + + + | Preferred Language | Unknown | + + + | Marital Status | Single | + + + | Advent Affiliation | NRP | + + + [...] Team Providers + +------+ + | Care Assortment Planner Name | Role | Phone | + [...] INCISION AND | | | | Rd [facility] | [address] | DRAINAGE, FASCIOTOMY | | | | Hospital Admitting | [place], [place] | CLOSURE | | | | Desk Located on the | [address] | | | | | 9th floor | [phone] | | | | | [place], [place] | | | | | | [address] | | | +--------+---------+ + + + [...] Lockwood MD - 09/17/2019 12:[address] [facility] Discharge Summary Discharging Provider: Johnathan Lockwood MD Discharging Attending Physician: To Henriquez MD PCP: Rio Huerta MD Admission Date: 09/03/2019 Discharge Date: 09/17/2019 Hospital Stay: 14 day(s) [facility] [place] . [phone] [facility] FOLLOW UP NEEDS: 1) Infectious Disease, [facility], ~10/08/2019 2) Orthopedi cs, [facility] in the Dr. Nella Parry ~10/20 Principal [...] hindfoot. 5. Placement of an external tissue storage wharfage clerk, area other than breast. 6. Placement of [...] vancomycin trough levels - ID F/U in [place], ~10/08 timeframe - Wound check and suture removal by 09/26/2019; OK for SNF to remove sutures - Ortho F/U ~10/21 timeframe w/ Dr. Carmen in [facility] - Activity restrictions: LLE: NWB, elevated, [...] BLED 4. Former discussion s with his torch heater decided against anticoagulation; on 81 mg aspirin [...] twenty-four hours. To be admixed per infusion [facility] standard policy and/or procedure. Indications: bone/joint [...] Selected Services Address Phone Number Fax Number [facility] Selected Care Home [address], [place] [address] Home Care Medical No service has been [...] wound re-check Contact information [address] [place] [phone] RIO HUERTA MD. Go on 09/24/2019. Specialty: Family Medicine Why: Appt: Tuesday, September 24, 2019 @ 08:40am. Address: [address] [place] [address], [address], [place], [place] Contact information [facility] [address] [place] [address] Surya Coffman MD. Go on 09/30/2019. Why: Appt: Monday, September 30, 2019 @ 09:45am Contact information [address], [place] [phone] Contact information for after-discharge care Discharge Destination [facility] . Service: Care Home Contact information [phone] [facility] [phone] Discharge Physical Exam: Last 24 hour min/max [...] PGY - 3 | Internal Medicine | [id number] [facility] [employer] Associated attestation - To Henriquez MD - [...] Primary Surrogate Decision Maker Josué An son [phone] TO HENRIQUEZ MD [address] ranch hand livestock Division of Hospital Medicine Department of Medicine [address] [place] [phone] documented in this encounter Discharge Instructions Discharge [...] (per patient w ++ 1st degree FH) Warp Spooler re: skin/foot care (a la DM) 10) Alcohol use disorder, mild, in sustained remission, abuse 11) Encounter for long-term (current) use of antibiotics SURROGATE DECISION MAKER Surrogate Decision Maker Primary Surrogate Decision Maker Josué An son [phone] TO HENRIQUEZ MD [address] ranch hand livestock Division of Hospital Medicine Department of Medicine [address] [address] Amber Wan MD - 1 11/16/2018 7:13 [...] care, follow up recs - follow up: [facility] ID faculty with preference to schedule with [...] BLED 4. Former discussion s with his torch heater decided against anticoagulation; on 81 mg aspirin daily (used to be 325 but reduced to 81 2/ "GI problems"). - held asa in s/o surgery, has been restarted - continue digoxin - goal resting rate <110 # bilateral lower extremity swelling Unclear etiology. Was seeing torch heater who is prescribing torsemide 10 mg daily [...] Dispo: patient ready to discharge tomorrow to [facility] in [place]. Code Status: Full Code Surrogate Decision Maker Primary Surrogate Decision Maker Josué An son [phone] This patient was staffed with Dr. To [...] there are not currnet signs of decompensation Warp Spooler on his 'near miss' and importance of good 'liver care' in future 9) Neuropathy, hereditary sensory (per patient w ++ 1st degree FH) Not noted in 'history' but with suggestion of pes cavus, and ++ family history it does r aise the qn of Utlniis-Qpscc-Wgzbo Could have been contributor to osteo Warp Spooler re: skin/foot care (a la DM) 10) Alcohol use disorder, mild, in sustained remission, abuse 11) Encounter for long-term (current) use of antibiotics SURROGATE DECISION MAKER Surrogate Decision Maker Primary Surrogate Decision Maker Josué An son [phone] TO HENRIQUEZ MD [address] ranch hand livestock Division of [facility] Medicine Department of Medicine [address] [place] [address] Amber Wan MD - 1 11/15/2018 6:26 [...] care, follow up recs - follow up: [facility] ID faculty with preference to schedule with [...] BLED 4. Former discussion s with his torch heater decided against anticoagulation; on 81 mg aspirin daily (used to be 325 but reduced to 81 2/2 "GI problems"). - held asa in s/o surgery, has been restarted - continue digoxin - goal resting rate <110 # bilateral lower extremity swelling Unclear etiology. Was seeing torch heater who is prescribing torsemide 10 mg daily [...] used majority of his medicare SNF days, disability case manager working to determine whethe r paying out of pocket is an option vs investigate other dispo options. Code Status: Full Code Surrogate Decision Maker Primary Surrogate Decision Maker Josué An son [phone] This patient was staffed with Dr. To [...] care, follow up recs - follow up: [facility] ID faculty with preference to schedule with [...] BLED 4. Former discussion s with his torch heater decided against anticoagulation; on 81 mg aspirin daily (used to be 325 but reduced to 81 2/2 "GI problems"). - held asa in s/o surgery, has been restarted - continue digoxin - goal resting rate <110 # bilateral lower extremity swelling Unclear etiology. Was seeing torch heater who is prescribing torsemide 10 mg daily [...] used majority of his medicare SNF days, disability case manager working to determine whethe r paying out of pocket is an option vs investigate other dispo options. Code Status: Full Code Surrogate Decision Maker Primary Surrogate Decision Maker Josué An son [phone] This patient was staffed with Dr. To [...] stenosis or insuff iciency: Aug 26, 2018: [facility] [employer]) 7) Essential hypertension 8) "Cirrhosis, Laennec's" (HCC) [...] it does r aise the qn of Wuoxozi-Vwpop-Rhmyj Could have been contributor to osteo Warp Spooler re: skin/foot care (a la DM) 10) Alcohol use disorder, mild, in sustained remission, abuse 11) Encounter for long-term (current) use of antibiotics SURROGATE DECISION MAKER Surrogate Decision Maker Primary Surrogate Decision Maker Josué An son [phone] TO HENRIQUEZ MD [address] ranch hand livestock Division of Hospital Medicine Department of Medicine [facility] & [address] [address] o zuluaga MD - 09/13 12:33 PM [...] stenosis or insuff iciency: Aug 26, 2018: [facility]) 7) Essential hypertension 8) "Cirrhosis, Laennec's" [...] it does r aise the qn of Yignoih-Qgdvu-Tyfzf Could have been contributor to osteo Warp Spooler re: skin/foot care (a la DM) 10) Alcohol use disorder, mild, in sustained remission, abuse 11) Encounter for long-term (current) use of antibiotics SURROGATE DECISION MAKER Surrogate Decision Maker Primary Surrogate Decision Maker Josué An son [phone] TO HENRIQUEZ MD [address] ranch hand livestock Division of Hospital Medicine Department of Medicine [address] [place] [address] ateJohnathan victor MD - 12/2018 11:07 AM [...] care, follow up recs - follow up: [facility] ID faculty with preference to schedule with [...] BLED 4. Former discussion s with his torch heater decided against anticoagulation; on 81 mg aspirin daily (used to be 325 but reduced to 81 2/2 "GI problems"). - held asa in s/o surgery, has been restarted - continue digoxin - goal resting rate <110 # bilateral lower extremity swelling Unclear etiology. Was seeing torch heater who is prescribing torsemide 10 mg daily [...] used majority of his medicare SNF days, disability case manager working to determine whethe r paying out of pocket is an option vs investigate other dispo options. Code Status: Full Code Surrogate Decision Maker Primary Surrogate Decision Maker Josué An son [phone] This patient was staffed with Dr. To Henriquez, who agrees with the assessment and plan unle ss otherwise stated. Johnathan Lockwood MD PGY - 3 | Internal Medicine | [id number] [facility] To Mendez MD - 11/2018 8:01 [...] stenosis or insuff iciency: Aug 26, 2018: [facility]) 7) Essential hypertension 8) "Cirrhosis, Laennec's" [...] it does r aise the qn of Apdfkio-Riuxs-Vopns Could have been contributor to osteo Warp Spooler re: skin/foot care (a la DM) 10) Alcohol use disorder, mild, in sustained remission, abuse 11) Encounter for long-term (current) use of antibiotics SURROGATE DECISION MAKER Surrogate Decision Maker Primary Surrogate Decision Maker Josué An son [phone] I spent ~40 minutes in the care of this patient. Greater than 50% of the time was spent co unseling and coordination of care, including visit x 3; extensive chart review (on ramos) TO HENRIQUEZ MD [address] ranch hand livestock Division of Hospital Medicine Department of Medicine [facility] & [address] [place] [address] auri Strickland MD - 09/12/2019 7:07 AM [...] care, follow up recs - follow up: [facility] ID faculty with preference to schedule with [...] BLED 4. Former discussion s with his torch heater decided against anticoagulation; on 81 mg aspirin daily (used to be 325 but reduced to 81 2/2 "GI problems"). - held asa in s/o surgery, has been restarted - continue digoxin - goal resting rate <110 # bilateral lower extremity swelling Unclear etiology. Was seeing torch heater who is prescribing torsemide 10 mg daily [...] used 90/100 of his medicare SNF days, disability case manager working to determine whether paying out of pocket is an option vs investigate other dispo options. Code Status: Full Code Surrogate Decision Maker Primary Surrogate Decision Maker Josué An son [phone] This patient was staffed with Dr. To Henriquez, who agrees with the assessment and plan unle ss otherwise stated. Gauri Strickland MD Internal Medicine [id number] signed by To Henriquez MD at 09/12/2019 [...] care, follow up recs - follow up: [facility] ID faculty with preference to schedule with [...] BLED 4. Former discussion s with his torch heater decided against anticoagulation; on 81 mg aspirin daily (used to be 325 but reduced to 81 2/2 "GI problems"). - held asa in s/o surgery, has been restarted - continue digoxin - goal resting rate <110 # bilateral lower extremity swelling Unclear etiology. Was seeing torch heater who is prescribing torsemide 10 mg daily [...] used 90/100 of his medicare SNF days, disability case manager working to determine whether paying out of pocket is an option vs investigate other dispo options. Code Status: Full Code Surrogate Decision Maker Primary Surrogate Decision Maker Josué An son [phone] This patient was staffed with Dr. Huerta, [...] eager to contin ue conversation with his disability case manager about discharge planning. Physical Examination: [...] care, follow up recs - follow up: [facility] ID faculty with preference to schedule with [...] BLED 4. Former discussion s with his torch heater decided against anticoagulation; on 81 mg aspirin daily (used to be 325 but reduced to 81 2/2 "GI problems"). - held asa in s/o surgery, has been restarted - continue digoxin - goal resting rate <110 # bilateral lower extremity swelling Unclear etiology. Was seeing torch heater who is prescribing torsemide 10 mg daily [...] used 90/100 of his medicare SNF days, disability case manager working to determine whether paying out of pocket is an option vs investigate other dispo options. Code Status: Full Code Surrogate Decision Maker Primary Surrogate Decision Maker Josué An son [phone] This patient was staffed with Dr. Huerta, who agrees with the assessment and plan unless otherwise stated. Gauri Strickland MD Internal Medicine [id number] signed by Tiffanie Huerta MD at 09/10/2019 [...] getting PICC line and understands need for snf IV antibiotics. Physical Examination: Last 24 hour [...] care, follow up recs - follow up: [facility] ID faculty with preference to schedule with [...] BLED 4. Former discussion s with his torch heater decided against anticoagulation; on 81 mg aspirin daily (used to be 325 but reduced to 81 2/2 "GI problems"). - held asa in s/o surgery, has been restarted - continue digoxin - goal resting rate <110 # bilateral lower extremity swelling Unclear etiology. Was seeing torch heater who is prescribing torsemide 10 mg daily [...] Primary Surrogate Decision Maker Josué An son [phone] This patient was staffed with Dr. Huerta, who agrees with the assessment and plan unless otherwise stated. Gauri Strickland MD Internal Medicine [id number] signed by Tiffanie Huerta MD at 09/10/2019 [...] hindfoot. 5. Placement of an external tissue storage wharfage clerk, area other than breast. 6. Placement of [...] vancomycin, until further notice, ID consult for rodent exterminator plan 5. Special Concerns: case managment for discharge planning, likely discharge to SNF in [facility] Wound Care consulted 6. Dressings/Drains: DRESSING [...] ok to discharge from ortho perspective o nde OPAT plan and dispo arrangements have been [...] 2 seconds Aidan Antonio MD Orthopedic Surgery [id number] 11:15 AM Cory Shaikh MD - 09/09/2019 [...] the plan as listed. Cory Carmen MD [facility] 4A [address] [place] [address] Cory Carmen Guari Walsh MD - 09/08/2019 7:27 AM PDT General Internal Medicine 3 Progress Note 24 Hour Events: Pharmacy completed med rec via SNF MAR records per pharm: "Torsemide, potassium chloride, A SA, MVI, vitamin B12, and thiamine were added to BUSINESS ACCOUNT SPECIALIST medication list. Of note, patient has n [...] BLED 4. Former discussion s with his torch heater decided against anticoagulation; on 81 mg aspirin daily (used to be 325 but reduced to 81 2/2 "GI problems"). - held asa in s/o surgery, has been restarted - continue digoxin - goal resting rate <110 # bilateral lower extremity swelling Unclear etiology. Was seeing torch heater who is prescribing torsemide 10 mg daily [...] Primary Surrogate Decision Maker Josué An son [phone] This patient was staffed with Dr. Huerta, who agrees with the assessment and plan unless otherwise stated. Gauri Strickland MD Internal Medicine [id number] signed by Tiffanie Huerta MD at 09/08/2019 [...] present. - he has been comfortable at [facility] with aggressive PT in the past [facility] is close to [place], his home. Deepthi Collazo AGACNP - 09/08/2019 [...] hindfoot. 5. Placement of an external tissue storage wharfage clerk, area other than breast. 6. Placement of [...] Closure fasciotomy site x2 Assessment & Plan: Monyt An is a 69 y.o.M with the [...] vancomycin, until further notice, ID consult for rodent exterminator plan 5. Special Concerns: case managment for discharge planning, likely discharge to SNF in [facility] Wound Care consulted 6. Dressings/Drains: DRESSING [...] capillary refill < 2 seconds Deepthi Collazo, [facility] Orthopaedic Trauma Surgery Pager [phone] Associated attestation - Cory Carmen MD - [...] input. I will be following this patient snf, rather than Dr stafford or Elan. I discussed the diagnosis, imaging studies, treatment plan and prognosis with the patient and resident. I have reviewed and the above note and agree with the plan. Please do not he sitate to call me for questions. Cory Carmen MD [facility] 4A [address] [place] [address] Arnold Taylor MD - 09/07/2019 6:22 PM PDTFormatting of this note might be differ ent from the original. Orthopaedic Surgery Progress Note Patient: /Age: MRN: CSN: Date: Admission Date: Hospital Day: Attending Physician: Monty An 1950 69 y.o. [id number] 09/07/2019 09/03/2019 4 Garth Stafford MD Procedure(s) [...] 98%, BMI 27.94 kg/(m^2). Facility age [facility] is 18 years. Exam: General: Well appearing, NAD CV/Resp: Breathing comfortably, Neurologic: Awake and alert MSK: LLE Dressings c/d/i Insensate about the lower leg/foot Wiggles toes WWP distally ARNOLD TAYLOR MD Pager: [phone] 09/07/2019 Associated attestation - Garth Stafford MD [...] appetite good, concerns are c entered around rodent exterminator places, specifically timeline of rehab and wound healing, as well a s what recovery will look like if he were to get a BKA. Reassured that no decisions need to be made now, can involve case management Sunday to look at SNFs. He has been to [facility] in [place] previously. Physical Examination: Last 24 hour min/max [...] BLED 4. Former discussion s with his torch heater decided against anticoagulation; on 81 mg aspirin daily (used to be 325 but reduced to 81 2/2 "GI problems"). - held asa in s/o surgery, restart - continue digoxin - goal resting rate <110 # bilateral lower extremity swelling Unclear etiology. Was seeing torch heater who is prescribing torsemide 10 mg daily [...] Primary Surrogate Decision Maker Josué An son [phone] This patient was staffed with Dr. Huerta, who agrees with the assessment and plan. Gauri Strickland MD Internal Medicine [id number] signed by Tiffanie Huerta MD at 09/07/2019 [...] in team note. - [facility] [place] would be a reasonable SNF for him [...] seco nds Aidan Antonio MD Orthopedic Surgery [id number] 7:37 AM 09/06/2019 Gauri Walsh MD - [...] DM); HAS BLED 4. Former discussions with [facility] torch heater decided against anticoagulation; on 81 mg aspirin daily (used to be 325 but r educed to 81 2/2 "GI problems"). - hold asa in s/o surgery - continue digoxin - goal resting rate <110 # bilateral lower extremity swelling Unclear etiology. Was seeing torch heater who is prescribing torsemide 10 mg daily [...] Primary Surrogate Decision Maker Josué An son [phone] This patient was staffed with Dr. Huerta, who agrees with the assessment and plan. Gauri Strickland MD Internal Medicine [id number] signed by Tiffanie Huerta MD at 09/06/2019 [...] Orthopaedic Attending: Monty An 1950 69 y.o. [id number] 09/05/2019 09/03/2019 2 Olivier Ansari MD Diagnosis(es): [...] to make a follow up appointment in [facility] 2 weeks with ORTHO TRAUMA & [...] es pink and warm. Noel Baptiste MD [facility] [employer] Department of Orthopaedics & Rehabilitation [address] [place] [address] Mail Code: [id number] [facility] [id number] Associated attestation - Olivier Ansari MD [...] DM); HAS BLED 4. Former discussions with [facility] torch heater decided against anticoagulation; on 81 mg aspirin daily (used to be 325 but r educed to 81 2/ "GI problems"). - hold asa in s/o surgery - continue digoxin - goal resting rate <110 # bilateral lower extremity swelling Unclear etiology. Was seeing torch heater who is prescribing torsemide 10 mg daily [...] Primary Surrogate Decision Maker Josué An son [phone] This patient was staffed with Dr. Huerta, who agrees with the assessment and plan. aGuri Strickland MD Internal Medicine [id number] signed by Tiffanie Huerta MD at 09/06/2019 [...] BLED 4 . Former discussions with his torch heater decided against anticoagulation; on 81 mg aspirin daily (used to be 325 but reduced to 81 2/2 "GI problems"). - hold asa in s/o surgery - continue digoxin - goal resting rate <110 # bilateral lower extremity swelling Unclear etiology. Was seeing torch heater who is prescribing torsemide 10 mg daily [...] Primary Surrogate Decision Maker Josué An son [phone] This patient was staffed with Dr. Huerta, [...] care at facility where he lives in [facility], was discharged to home I called and spoke with night RN at [facility] He discharged home yesterday from facility They had noted exposed hardware last week, cultured wound which has not grown and started o n PO levofloxacin 500mg daily and augmentin on 09/02 He was seen by Dr Castellano at [facility] who requested transfer to [facility] for orthopedic eval From last cardiology note [...] within 24 hours. Please refer to excellent legal summer intern H&P for full problem based plan. ILIR SPIVEY MD Internal Medicine, PGY-3 Pager: [phone] documented in this encou nter Plan of [...] | + + + + + | [facility] | [address] | [place] [address] | | | SERVICES, CORE | DWIGHT [...] | | | | | | gy, [facility] | | | | | [facility] | | | | | [...] + + + + | [facility] | [address] | [place] [address] | | | PATHOLOGY | [address] [...] | + + + + + | [facility] | [address] | [place] [address] | | | SERVICES, CORE | PARK [...] | + + + + + | [facility] | [address] | [place] [address] | | | SERVICES, FERMÍN | DWIGHT [...] | | | LABORATORY | | | [place] | | | SERVICES, | | | [...] MDRD equation recommended by the National | [facility] | | Kidney Disease Education Program. Estimated [...] | + + + + + | [facility] | [address] | [place] [address] | | | SERVICES, CORE | PARK [...] | [facility] | [address] [address] | [place] [address] | | | SERVICES, CORE | PARK [...] [facility] | [address] | [place] [address] | | | SERVICES, CORE | PARK [...] | + + + + + | [facility] | [address] [facility] [address] | [place] [address] | | | VJ, FERMÍN | DWIGHT [...] [facility] | [address] | [place] [address] | | | SERVICES, CORE | PARK [...] | + + + + + | [facility] | [address] | [place] [address] | | | SERVICES, FERMÍN | PARK [...] | | | LABORATORY | | | [place] | | | SERVICES, | | | [...] | + + + + + | [facility] | [address] | [place] [address] | | | SERVICES, CORE | PARK [...] [facility] | [address] | [place] [address] | | | SERVICES, CORE | PARK [...] | | | LABORATORY | | | [place] | | | SERVICES, | | | [...] MDRD equation recommended by the National | [facility] | | Kidney Disease Education Program. Estimated [...] | + + + + + | [facility] | [address] [facility] [facility] | [place] [address] | | | SERVICES, CORE | [address] | | | + + + [...] Diagnosis: Cellulitis LE Procedure location: Unit: Room: [facility] | | | Providers: Attending [...] correct patient, | | | procedure, equipment, manager sales support and site/side marked as | | [...] vein. Catheter lot number: | | | [id number] with a length of 55 cm was [...] [facility] | [address] [address] | [place] [address] | | | SERVICES, CORE | PARK [...] [facility] | [address] | [place] [address] | | | SERVICES, CORE | PARK [...] | + + + + + | [facility] | [address] | [place] [address] | | | SERVICES, CORE | DWIGHT [...] [facility] | [address] | [place] [address] | | | SERVICES, CORE | DWIGHT [...] [facility] | [address] | [place] [address] | | | SERVICES, CORE | PARK [...] | | | LABORATORY | | | [place] | | | SERVICES, | | | [...] | + + + + + | [facility] | [address] | [place] [address] | | | SERVICES, FERMÍN | DWIGHT [...] [facility] | [address] | [place] [address] | | | SERVICES, CORE | DWIGHT [...] [facility] | [address] | [place], [place] | | | ALEX MORAN [facility] STAR | [facility] | [address] | | | TESTS | | | [...] | + + + + + | [facility] | [address] | [place] [address] | | | SERVICES, CORE | DWIGHT [...] | | | LABORATORY | | | [place] | | | SERVICES, | | | [...] MDRD equation recommended by the National | [facility] | | Kidney Disease Education Program. Estimated [...] | + + + + + | [facility] | [address] | [place] [address] | | | SERVICES, CORE | DWIGHT [...] [facility] | [address] | [place] [address] | | | SERVICES, | [address] [...] | + + + + + | [facility] | [address] | [place] [address] | | | SERVICES, | [address] [...] | | | + +---------+ + + [facility] VENOUS DUPLEX LOWER EXTREMITY [...] | [facility] | [address] [facility] | [place] [address] | | | SERVICES, CORE | PARK [...] | + + + + + | [facility] | [address] [facility] | [place] [address] | | | SERVICES, CORE | DWIGHT [...] [facility]PT OF | [address] | [place], [place] | | | CARDIOLOGY | [address] | [address] | | + + + + + [...] [facility] | [address] | [place], [place] | | | LU[facility] POINT OF CARE | [address] | [address] | | | TESTS | | | [...] B for complete identification and susceptibilities | [place] | | Enterococcus faecalis Unable to continue [...] + | [facility] - | [address] | [place] [address] | | | [facility] | | | | + + + [...] + | [facility] - | [address] | [place] [address] | | | [place] | | | [...] Culture Report: Methicillin Resistant Staphylococcus aureus | [facility] - | | Presumptive identification Refer to culture [facility]2019 [facility] | [facility] | | [facility], site [address] for complete identification and susceptibilities | [place] | | Enterococcus faecalis Refer to culture [...] | + + + + + | [facility] | [address] | [place] [address] | | | [place] | | | | + + + [...] Corynebacterium striatum No Propionibacterium isolated Gram | [facility] | | Stain: No squamous epithelial cells Rare polymorphonuclear cells | [place] | | No organisms seen | | [...] | + + + + + | [facility] - | [address] | [place] [address] | | | [place] | | | [...] + | [facility] - | [address] | [place] [address] | | | [facility] | | | | + + [...] [facility] | [address] | [place] [address] | | | SERVICES, CORE | PARK [...] [facility] | [address] | [place] [address] | | | SERVICES, CORE | PARK [...] | | | LABORATORY | | | [place] | | | SERVICES, | | | [...] | + + + + + | [facility] | [address] [facility] | [place] [address] | | | SERVICES, CORE | DWIGHT [...] [facility] | [address] | [place] [address] | | | SERVICES, CORE | PARK [...] | + + + + + | [facility] | [address] | [place] [address] | | | FERMÍN ZABALA | DWIGHT [...] | [facility] | | considered for monitoring snf glycemic control in patients with: | LABORATORY [...] [facility] | [address] | [place] [address] | | | SERVICES, SPECIAL | PARK [...] | + + + + + | [facility] - | [address] | [place] [address] | | | [place] | | | | + + + [...] + + + + + | [facility] | [address] | [place] [address] | | | SERVICES, CORE | PARK [...] | + + + + + | [facility] | [address] | [place] [address] | | | FERMÍN ZABALA | DWIGHT [...] | + + + + + | [facility] | [address] | [place] [address] | | | FERMÍN ZABALA | DW[address] [...] | + + + + + | [facility] | [address] | [place] [address] | | | SERVICES, CORE | [address] | | | + + + + + BG-LAC,POC ISTAT (09/03/2019 7:25 PM PDT) + +-------+ + + + | Component | Value | Ref Range | Performed | Pathologist | | | | | At | Signature | + +-------+ + + + | TOTAL CO2 | 28 | 23 - 29 mmol/L | [facility] - | | | [facility]ACIN[facility], POC | [...] [facility] | [address] | [place], [place] | | | ALEX M[facility]AN [facility] CARE | [address] | [address] | | | TESTS | | | [...] [facility] | [address] | [place] [address] | | | SERVICES, CORE | PARK [...] [facility] | [address] | [place] [address] | | | SERVICES, FERMÍN | PARK [...] | + + + + + | [facility] | [address] | [place] [address] | | | SERVICES, CORE | DWIGHT [...] [facility] | [address] | [place] [address] | | | SERVICES, CORE | PARK [...] | | | LABORATORY | | | [place] | | | SERVICES, | | | [...] MDRD equation recommended by the National | [facility] | | Kidney Disease Education Program. Estimated [...] | + + + + + | [facility] | [address] | [place] [address] | | | SERVICES, [facility] | [address] | | | + [...] [facility] | [address] | [place] [address] | | | SERVICES, | [address] [...] | + + + + + | [facility] | [address] | [place] [address] | | | SERVICES, CORE | DWIGHT [...] [facility] | [address] | [place] [address] | | | SERVICES, CORE | PARK [...] | + + + + + | [facility] | [address] | [place] [address] | | | SERVICES, FERMÍN | DWIGHT [...] | | | | | NEEDED, Starting [facility] 09/04/19 at | | 19 4:05 [...] PDT | | | | | Starting [facility] 09/04/19 at 1845, | | | [...] | | | | | dose on [facility] 09/04/19 at 0900, | | AM [...]
--- OUTSIDE RECORDS SUMMARY | ~2020-05-24 | XMS | Encounter Summary ---
Demographics + + + | Address | [address] | | | [place] [address] | + + + | Home Phone | | + + + | Preferred Language | Unknown | + + + | Marital Status | Single | + + + | Uatsdin Affiliation | NRP | + + + [...] Team Providers + +------+ + | Care Exhibition Organiser Name | Role | Phone | + [...] | | | [address] | (vancomycin trough); | | | | Loop Physician's | [place], [place] | Infectious disease | | | | [place], [facility] | [address] | | | | | [place], [place] | [phone] | | | | | [address] | | | | | | [phone] | | | +--------+ + + + [...]
--- OUTSIDE RECORDS SUMMARY | ~2020-05-24 | XMS | Encounter Summary ---
Demographics + + + | Address | [address] | | | [place] [address] | + + + | Home Phone | | + + + | Preferred Language | Unknown | + + + | Marital Status | Single | + + + | Episcopal Affiliation | NRP | + + + [...] Team Providers + +------+ + | Care Laminator Hand Name | Role | Phone | + [...] Rd | | | | | | [place], [place] | | | | | | [address] | | | +--------+ + + + [...] | | | | | | of [id number] | | | | | | days. [...] Dexter | | | | | | [facility], | | | | | | [place], delivered via | | | | | | match up worker on moist gauze | | | | [...] | + + + + + | [facility] | [address] | [place] [address] | | | PATHOLOGY | [address] | | | + + + + + documented in this encounter Visit Diagnoses Not on filedocumented in this encounter
--- OUTSIDE RECORDS SUMMARY | ~2020-05-24 | XMS | Encounter Summary ---
Demographics + + + | Address | [address] | | | [place] [address] | + + + | Home Phone | | + + + | Preferred Language | Unknown | + + + | Marital Status | Single | + + + | Sikhism Affiliation | NRP | + + + [...] Team Providers + +------+ + | Care Automation Controls Engineer Name | Role | Phone | [...] | | | | [address] [facility] | [place], [place] | | | | | Health and Healing, | [address] | | | | | [facility] | [phone] | | | | | Floor [place], [place] | | | | | | [address] | | | | | | [phone] | | | +--------+ + + + [...] | | | | | with hardware ([facility]) | | | | | [...]
--- OUTSIDE RECORDS SUMMARY | ~2020-05-24 | XMS | Encounter Summary ---
Demographics + + + | Address | [address] | | | [place] [address] | + + + | Home Phone [...] + + + | Author | [facility] | + + + | Organization | [facility] | + + + | Address [...] Team Providers + +------+ + | Care Bread Wrapping Machine Feeder Name | Role | Phone | + [...] | | SW Tejas Maya | [address] | LEFT ANKLE | | | | Rd [facility] | Bk Maya | | | | | Hospital Admitting | [place], [place] | | | | | Desk Located on the | [address] | | | | | 9th floor | [phone] | | | | | [place], [place] | | | | | | [address] | | | +--------+---------+ + + + [...] Lockwood MD - 09/17/2019 12:07 PM PST [facility]ly [facility] Discharge Summary Discharging Provider: Johnathan Lockwood MD Discharging Attending Physician: To Henriquez MD PCP: Rio Huerta MD Admission Date: 09/03/2019 Discharge Date: 09/17/2019 Hospital Stay: 14 day(s) Discharge Location: [facility] [place] . [phone] [facility] FOLLOW UP NEEDS: 1) Infectious Disease, [facility], [place], ~10/08/2019 2) Orthopedi cs, [facility] in the Dr. Nella Parry [...] hindfoot. 5. Placement of an external tissue linen room worker, area other than breast. 6. Placement of [...] vancomycin trough levels - ID F/U in [place], ~10/08 timeframe - Wound check and suture removal by 09/26/2019; OK for SNF to remove sutures - Ortho F/U ~10/21 timeframe w/ Dr. Carmen in [facility] - Activity restrictions: LLE: NWB, [...] BLED 4. Former discussion s with his endocrinology teacher decided against anticoagulation; on 81 mg aspirin [...] follow/manage patient "I certify that post-hospital inpatient [facility] facility care is medically necessar y on a continuing basis for treatment of the same condition for which inpatient acute hospit al care was received." JOHNATHAN LOCKWOOD MD Discharge Destination - Selection Complete Service Provider Request Status Selected Services Address Phone Number Fax Number Hellen [place] Rajinder Selected [facility] [address], [place] [id number] [facility] Care [facility] No service has been [...] Why: For wound re-check Contact information [address] [place] [phone] RIO HUERTA MD. Go on 09/24/2019. Specialty: Family Medicine Why: Appt: Tuesday, September 24, 2019 @ 08:40am. Address: [address] [place] [address], [address], [place] Contact information [facility] [place] [address] Surya Coffman MD. Go on 09/30/2019. Why: Appt: Monday, September 30, 2019 @ 09:45am Contact information [address] [place] [phone] Contact information for after-discharge care [facility] . Service: [facility] Contact information [address] [place] [id number] Discharge Physical Exam: Last 24 hour min/max [...] PGY - 3 | Internal Medicine | [id number] [facility] [place] Associated attestation - To Henriquez MD - [...] Primary Surrogate Decision Maker Josué An son [phone] TO HENRIQUEZ MD [address] modern dancer Division of Hospital Medicine Department of Medicine [address] [place] [phone] documented in this encounter Discharge Instructions Discharge [...] follow/manage patient "I certify that post-hospital inpatient [facility] facility care is medically necessar y on [...] | | | | | with hardware ([facility]) | | | | [...] (per patient w ++ 1st degree FH) Glove Cleaner re: skin/foot care (a la DM) 10) Alcohol use disorder, mild, in sustained remission, abuse 11) Encounter for long-term (current) use of antibiotics SURROGATE DECISION MAKER Surrogate Decision Maker Primary Surrogate Decision Maker Josué An son [phone] TO HENRIQUEZ MD [address] modern dancer Division of Hospital Medicine Department of Medicine Formerly [facility] [address] 12/[facility] [place] [address] Amber Wan MD - 1 11/16/2018 7:13 [...] follow up recs - follow up: [facility] ID faculty with preference to [...] BLED 4. Former discussion s with his endocrinology teacher decided against anticoagulation; on 81 mg aspirin daily (used to be 325 but reduced to 81 2/2 "GI problems"). - held asa in s/o surgery, has been restarted - continue digoxin - goal resting rate <110 # bilateral lower extremity swelling Unclear etiology. Was seeing endocrinology teacher who is prescribing torsemide 10 mg daily [...] Dispo: patient ready to discharge tomorrow to [facility] in [place]. Code Status: Full Code Surrogate Decision Maker Primary Surrogate Decision Maker Josué An son [phone] This patient was staffed with Dr. To [...] there are not currnet signs of decompensation Glove Cleaner on his 'near miss' and importance of good 'liver care' in future 9) Neuropathy, hereditary sensory (per patient w ++ 1st degree FH) Not noted in 'history' but with suggestion of pes cavus, and ++ family history it does r aise the qn of Wntpzqx-Kiiqa-Wruie Could have been contributor to osteo Glove Cleaner re: skin/foot care (a la DM) 10) Alcohol use disorder, mild, in sustained remission, abuse 11) Encounter for long-term (current) use of antibiotics SURROGATE DECISION MAKER Surrogate Decision Maker Primary Surrogate Decision Maker Josué An son [phone] TO HENRIQUEZ MD [address] modern dancer Division of [facility] Medicine Department of Medicine Formerly [facility] [address] [place] [address] Amber Wan MD - 1 11/15/2018 6:26 [...] follow up recs - follow up: [facility] ID faculty with preference to [...] BLED 4. Former discussion s with his endocrinology teacher decided against anticoagulation; on 81 mg aspirin daily (used to be 325 but reduced to 81 2/2 "GI problems"). - held asa in s/o surgery, has been restarted - continue digoxin - goal resting rate <110 # bilateral lower extremity swelling Unclear etiology. Was seeing endocrinology teacher who is prescribing torsemide 10 mg daily [...] majority of his medicare SNF days, case coordinator working to determine whethe r paying out of pocket is an option vs investigate other dispo options. Code Status: Full Code Surrogate Decision Maker Primary Surrogate Decision Maker Josué An son [phone] This patient was staffed with Dr. To [...] follow up recs - follow up: [facility] ID faculty with preference to [...] BLED 4. Former discussion s with his endocrinology teacher decided against anticoagulation; on 81 mg aspirin daily (used to be 325 but reduced to 81 2/2 "GI problems"). - held asa in s/o surgery, has been restarted - continue digoxin - goal resting rate <110 # bilateral lower extremity swelling Unclear etiology. Was seeing endocrinology teacher who is prescribing torsemide 10 mg daily [...] majority of his medicare SNF days, case coordinator working to determine whethe r paying out of pocket is an option vs investigate other dispo options. Code Status: Full Code Surrogate Decision Maker Primary Surrogate Decision Maker Josué An son [phone] This patient was staffed with Dr. To [...] stenosis or insuff iciency: Aug 26, 2018: [facility]) 7) Essential hypertension 8) "Cirrhosis, Laennec's" (HCC) [...] it does r aise the qn of Gamwsqn-Krfig-Ujhfq Could have been contributor to osteo Glove Cleaner re: skin/foot care (a la DM) 10) Alcohol use disorder, mild, in sustained remission, abuse 11) Encounter for long-term (current) use of antibiotics SURROGATE DECISION MAKER Surrogate Decision Maker Primary Surrogate Decision Maker Josué An son [phone] TO HENRIQUEZ MD [address] modern dancer Division of Hospital Medicine Department of Medicine [address] 12/[address] [address] o zuluaga MD - 09/13 12:33 PM [...] stenosis or insuff iciency: Aug 26, 2018: [facility]) 7) Essential hypertension 8) "Cirrhosis, Laennec's" [...] it does r aise the qn of Hneqagk-Bgmes-Yctfx Could have been contributor to osteo Glove Cleaner re: skin/foot care (a la DM) 10) Alcohol use disorder, mild, in sustained remission, abuse 11) Encounter for long-term (current) use of antibiotics SURROGATE DECISION MAKER Surrogate Decision Maker Primary Surrogate Decision Maker Josué An son [phone] TO HENRIQUEZ MD [address] modern dancer Division of Hospital Medicine Department of Medicine [address] [place] [address] ateJohnathan victor MD - 12/2018 11:07 AM [...] follow up recs - follow up: [facility] ID faculty with preference to [...] BLED 4. Former discussion s with his endocrinology teacher decided against anticoagulation; on 81 mg aspirin daily (used to be 325 but reduced to 81 2/2 "GI problems"). - held asa in s/o surgery, has been restarted - continue digoxin - goal resting rate <110 # bilateral lower extremity swelling Unclear etiology. Was seeing endocrinology teacher who is prescribing torsemide 10 mg daily [...] majority of his medicare SNF days, case coordinator working to determine whethe r paying out of pocket is an option vs investigate other dispo options. Code Status: Full Code Surrogate Decision Maker Primary Surrogate Decision Maker Josué An son [phone] This patient was staffed with Dr. To Henriquez, who agrees with the assessment and plan unle ss otherwise stated. Johnathan Lockwood MD PGY - 3 | Internal Medicine | [id number] [facility] [place] To Mendez MD - 11/2018 8:01 AM [...] stenosis or insuff iciency: Aug 26, 2018: [facility]) 7) Essential hypertension 8) "Cirrhosis, Laennec's" [...] it does r aise the qn of Ypvqlrz-Apgld-Avvsh Could have been contributor to osteo Glove Cleaner re: skin/foot care (a la DM) 10) Alcohol use disorder, mild, in sustained remission, abuse 11) Encounter for long-term (current) use of antibiotics SURROGATE DECISION MAKER Surrogate Decision Maker Primary Surrogate Decision Maker Josué An son [phone] I spent ~40 minutes in the care of this patient. Greater than 50% of the time was spent co unseling and coordination of care, including visit x 3; extensive chart review (on ramos) TO HENRIQUEZ MD [address] modern dancer Division of Hospital Medicine Department of Medicine [address] [place] [address] auri Strickland MD - 09/12/2019 7:07 AM [...] follow up recs - follow up: [facility] ID faculty with preference to [...] BLED 4. Former discussion s with his endocrinology teacher decided against anticoagulation; on 81 mg aspirin daily (used to be 325 but reduced to 81 2/2 "GI problems"). - held asa in s/o surgery, has been restarted - continue digoxin - goal resting rate <110 # bilateral lower extremity swelling Unclear etiology. Was seeing endocrinology teacher who is prescribing torsemide 10 mg daily [...] 90/100 of his medicare SNF days, case coordinator working to determine whether paying out of pocket is an option vs investigate other dispo options. Code Status: Full Code Surrogate Decision Maker Primary Surrogate Decision Maker Josué An son [phone] This patient was staffed with Dr. To Henriquez, who agrees with the assessment and plan unle ss otherwise stated. Gauri Strickland MD Internal Medicine [id number] signed by To Henriquez MD at 09/12/2019 [...] follow up recs - follow up: [facility] ID faculty with preference to [...] BLED 4. Former discussion s with his endocrinology teacher decided against anticoagulation; on 81 mg aspirin daily (used to be 325 but reduced to 81 2/2 "GI problems"). - held asa in s/o surgery, has been restarted - continue digoxin - goal resting rate <110 # bilateral lower extremity swelling Unclear etiology. Was seeing endocrinology teacher who is prescribing torsemide 10 mg daily [...] 90/100 of his medicare SNF days, case coordinator working to determine whether paying out of pocket is an option vs investigate other dispo options. Code Status: Full Code Surrogate Decision Maker Primary Surrogate Decision Maker Josué An son [phone] This patient was staffed with Dr. Huerta, [...] to contin ue conversation with his case coordinator about discharge planning. Physical Examination: Last 24 [...] follow up recs - follow up: [facility] ID faculty with preference to [...] BLED 4. Former discussion s with his endocrinology teacher decided against anticoagulation; on 81 mg aspirin daily (used to be 325 but reduced to 81 2/2 "GI problems"). - held asa in s/o surgery, has been restarted - continue digoxin - goal resting rate <110 # bilateral lower extremity swelling Unclear etiology. Was seeing endocrinology teacher who is prescribing torsemide 10 mg daily [...] 90/100 of his medicare SNF days, case coordinator working to determine whether paying out of pocket is an option vs investigate other dispo options. Code Status: Full Code Surrogate Decision Maker Primary Surrogate Decision Maker Josué An son [phone] This patient was staffed with Dr. Huerta, who agrees with the assessment and plan unless otherwise stated. Gauri Strickland MD Internal Medicine [id number] signed by Tiffanie Hureta MD at 09/10/2019 4:49 PM PDT Associated [...] has not been an issue. Enjoys working [facility] physical therapy. Denies dyspnea, nausea, abdominal [...] follow up recs - follow up: [facility] ID faculty with preference to [...] BLED 4. Former discussion s with his endocrinology teacher decided against anticoagulation; on 81 mg aspirin daily (used to be 325 but reduced to 81 2/2 "GI problems"). - held asa in s/o surgery, has been restarted - continue digoxin - goal resting rate <110 # bilateral lower extremity swelling Unclear etiology. Was seeing endocrinology teacher who is prescribing torsemide 10 mg daily [...] Primary Surrogate Decision Maker Josué An son [phone] This patient was staffed with Dr. Huerta, who agrees with the assessment and plan unless otherwise stated. Gauri Strickland MD Internal Medicine [id number] signed by Tiffanie Huerta MD at 09/10/2019 [...] hindfoot. 5. Placement of an external tissue linen room worker, area other than breast. 6. Placement of [...] vancomycin, until further notice, ID consult for snf plan 5. Special Concerns: case managment for discharge planning, likely discharge to SNF in [facility] Wound Care consulted 6. Dressings/Drains: [...] 2 seconds Aidan Antonio MD Orthopedic Surgery [id number] 11:15 AM Cory Shaikh MD - 09/09/2019 [...] plan as listed. Cory Carmen MD [facility] [address] [place] [address] Cory Carmen Gauri Walsh MD - 09/08/2019 7:27 AM PDT General Internal Medicine 3 Progress Note 24 Hour Events: Pharmacy completed med rec via SNF MAR records per pharm: "Torsemide, potassium chloride, A SA, MVI, vitamin B12, and thiamine were added to ELECTRIC DISTRIBUTION CHECKER medication list. Of note, patient has n [...] BLED 4. Former discussion s with his endocrinology teacher decided against anticoagulation; on 81 mg aspirin daily (used to be 325 but reduced to 81 2/2 "GI problems"). - held asa in s/o surgery, has been restarted - continue digoxin - goal resting rate <110 # bilateral lower extremity swelling Unclear etiology. Was seeing endocrinology teacher who is prescribing torsemide 10 mg daily [...] Primary Surrogate Decision Maker Josué An son [phone] This patient was staffed with Dr. Huerta, who agrees with the assessment and plan unless otherwise stated. Gauri Strickland MD Internal Medicine [id number] signed by Tiffanie Huerta MD at 09/08/2019 [...] present. - he has been comfortable at [facility] assisted living with aggressive PT in the past [facility] is close to [place], his home. Deepthi Collazo AGACNP - 09/08/2019 [...] hindfoot. 5. Placement of an external tissue linen room worker, area other than breast. 6. Placement of [...] vancomycin, until further notice, ID consult for salvage determiner plan 5. Special Concerns: case managment for discharge planning, likely discharge to SNF in [facility] Wound Care consulted 6. Dressings/Drains: [...] Intake/Output Summary (Last 24 hours) at 09/08/2019 0660 Last data filed at 09/08/2019 0645 Gross [...] [facility] Orth[facility] Surgery Pager [phone] Associated attestation - Cory Carmen MD - [...] me for questions. Cory Carmen MD [facility] [address]A [address] [facility] [address] [place] [address] Arnold Taylor MD - 09/07/2019 6:22 PM PDTFormatting of this note might be differ ent from the original. Orthopaedic Surgery Progress Note Patient: /Age: MRN: CSN: Date: Admission Date: Hospital Day: Attending Physician: Monty An 1950 69 y.o. [id number] 09/07/2019 09/03/2019 4 Garth Stafford MD Procedure(s) [...] SpO2 98%, BMI 27.94 kg/(m^2). Facility age [facility] for growth percentiles is 18 years. Exam: General: Well appearing, NAD CV/Resp: Breathing comfortably, Neurologic: Awake and alert MSK: LLE Dressings c/d/i Insensate about the lower leg/foot Wiggles toes WWP distally ARNOLD TAYLOR MD Pager: [phone] 09/07/2019 Associated attestation - Garth Stafford MD [...] appetite good, concerns are c entered around salvage determiner places, specifically timeline of rehab and wound healing, as well a s what recovery will look like if he were to get a BKA. Reassured that no decisions need to be made now, can involve case management Sunday to look at SNFs. He has been to [facility] in [place] previously. Physical Examination: Last 24 hour min/max [...] BLED 4. Former discussion s with his endocrinology teacher decided against anticoagulation; on 81 mg aspirin daily (used to be 325 but reduced to 81 2/2 "GI problems"). - held asa in s/o surgery, restart - continue digoxin - goal resting rate <110 # bilateral lower extremity swelling Unclear etiology. Was seeing endocrinology teacher who is prescribing torsemide 10 mg daily [...] Primary Surrogate Decision Maker Josué An son [phone] This patient was staffed with Dr. Huerta, who agrees with the assessment and plan. Gauri Strickland MD Internal Medicine [id number] signed by Tiffanie Huerta MD at 09/07/2019 [...] in team note. - [facility] in [place] would be a reasonable SNF for him [...] seco nds Aidan Antonio MD Orthopedic Surgery [id number] 7:37 AM 09/06/2019 Gauri Walsh MD - [...] DM); HAS BLED 4. Former discussions with [facility] endocrinology teacher decided against anticoagulation; on 81 mg aspirin daily (used to be 325 but r educed to 81 2/2 "GI problems"). - hold asa in s/o surgery - continue digoxin - goal resting rate <110 # bilateral lower extremity swelling Unclear etiology. Was seeing endocrinology teacher who is prescribing torsemide 10 mg daily [...] Primary Surrogate Decision Maker Josué An son [phone] This patient was staffed with Dr. Huerta, who agrees with the assessment and plan. Gauri Strickland MD Internal Medicine [id number] signed by Tiffanie Huerta MD at 09/06/2019 [...] Orthopaedic Attending: Monty An 1950 69 y.o. [id number] 09/05/2019 09/03/2019 2 Olivier Ansari MD Diagnosis(es): [...] to make a follow up appointment in [facility] 2 weeks with ORTHO TRAUMA & [...] pink and warm. Noel Baptiste MD [facility] [place] Department of Orthopaedics & Rehabilitation [address] [place] [address] Mail Code: OP31 [facility] [id number] Associated attestation - Olivier Ansari MD - [...] DM); HAS BLED 4. Former discussions with [facility] endocrinology teacher decided against anticoagulation; on 81 mg aspirin daily (used to be 325 but r educed to 81 2/2 "GI problems"). - hold asa in s/o surgery - continue digoxin - goal resting rate <110 # bilateral lower extremity swelling Unclear etiology. Was seeing endocrinology teacher who is prescribing torsemide 10 mg daily [...] Primary Surrogate Decision Maker Josué An son [phone] This patient was staffed with Dr. Huerta, who agrees with the assessment and plan. Gauri Strickland MD Internal Medicine [id number] signed by Tiffanie Huerta MD at 09/06/2019 [...] BLED 4 . Former discussions with his endocrinology teacher decided against anticoagulation; on 81 mg aspirin daily (used to be 325 but reduced to 81 2/2 "GI problems"). - hold asa in s/o surgery - continue digoxin - goal resting rate <110 # bilateral lower extremity swelling Unclear etiology. Was seeing endocrinology teacher who is prescribing torsemide 10 mg daily [...] Primary Surrogate Decision Maker Josué An son [phone] This patient was staffed with Dr. Huerta, [...] at facility where he lives in [facility], was discharged to home I called and spoke with night RN at [facility] He discharged home yesterday from facility They had noted exposed hardware last week, cultured wound which has not grown and started o n PO levofloxacin 500mg daily and augmentin on 09/02 He was seen by Dr Castellano at [facility] who requested transfer to [facility] for orthopedic eval From last [...] within 24 hours. Please refer to excellent technology intern H&P for full problem based plan. ILIR SPIVEY MD Internal Medicine, PGY-3 Pager: [phone] documented in this encou nter Plan of [...] | [facility] | [address] [facility] [facility] | [place] [address] | | | SERVICES, CORE | PARK [...] Hematopathology | | | | | | [facility] Toyin CHANDLER, | | | | | | PhD - | | | | | | HematopathologistPatholo | | | | | | gy, [facility] | | | | [facility] | | | | | [...] | + + + + + | [facility] | [address] | [place] [address] | | | PATHOLOGY | [address] [...] | + + + + + | [facility] | [address] [address] | [place] [address] | | | SERVICES, CORE | PARK [...] | + + + + + | [facility] | [address] | [place] [address] | | | SERVICES, CORE | DWIGHT [...] | | | LABORATORY | | | TURKISH | | | SERVICES, | | | [...] | + + + + + | [facility] | [address] | [place] [address] | | | FERMÍN ZABALA | PARK [...] | + + + + + | [facility] | [address] | [place] [address] | | | SERVICES, CORE | DWIGHT [...] + + + + + | [facility] | [address] | [place] [address] | | | VJ, FERMÍN | PARK [...] + + + + + | [facility] | [address] | [place] [address] | | | SERVICES, CORE | DWIGHT [...] [facility] | [address] | [place] [address] | | | SERVICES, CORE | PARK [...] | + + + + + | [facility] | [address] | [place] [address] | | | VJ, CORE | DWIGHT [...] | | | LABORATORY | | | TURKISH | | | SERVICES, | | | [...] + + + + + | [facility] [employer] | [address] [facility] [address] | [place] [address] | | | SERVICES, CORE | DWIGHT [...] | + + + + + | [facility] | [address] | [place] [address] | | | SERVICES, CORE | DWIGHT [...] | | | LABORATORY | | | TURKISH | | | SERVICES, | | | [...] equation recommended by the National | [facility] | | Kidney Disease Education [...] + + + + + | [facility] | [address] | [place] [address] | | | SERVICES, CORE | [address] | | | + + + + + X-RAY PORTABLE CHEST PICC LINE CHECK (09/09/2019 7:29 PM PDT) + + | Specimen | + + | | + + + + + | Narrative | Performed At | + + + | EXAM: MO CHEST PICC LINE CHECK HISTORY: Verify Catheter [...] Interface - 09/09/2019 8:46 PM PDT EXAM: MO CHEST | | PICC LINE CHECK HISTORY: [...] At | + + + | EXAM: MO CHEST 1 VIEW HISTORY: PICC placement COMPARISON: [...] Interface - 09/09/2019 4:46 PM PDT EXAM: MO CHEST 1 | | VIEW HISTORY: PICC [...] Diagnosis: Cellulitis LE Procedure location: Unit: Room: [facility] | | | Providers: Attending name: Attending physically present: No PICC | | | Nurse name: Yenifer Barboza RN BSN VAT Assisted by Marty | | | Golden BUILDING ANALYST/SUPERVISOR VAT Pre-Procedure Consent: written consent | | | obtained Consent given by: Patient Patient identity confirmed per | | | protocol: Yes Team Pause: Immediatly prior to the procedure a pause | | | per protocol was called. A pause verifies correct patient, | | | procedure, equipment, senior administrative support and site/side marked as | | [...] vein. Catheter lot number: | | | [id number] with a length of 55 cm was [...] [facility] | [address] | [place] [address] | | | SERVICES, CORE | PARK [...] | + + + + + | [facility] | [address] | [place] [address] | | | SERVICES, CORE | PARK [...] [facility] | [address] | [place] [address] | | | VJ, CORE | DWIGHT [...] + + + + + | [facility] | [address] | [place] [address] | | | SERVICES, CORE | [address] | | | + + + + + X-RAY TIBIA & FIBULA 2 VIEWS LT (09/08/2019 1:56 PM PDT) + + | Specimen | + + | | + + + + + | Narrative | Performed At | + + + | EXAM: TIBIA AND FIBULA 2 VIEWS LT HISTORY: s/p Hardware Removal | [facility] | | COMPARISON: 09/03/2019 FINDINGS: There has [...] 3:15 PM Preliminary: | | | Damion Baxtre DO Dictation initiated: Damion Baxter DO | [...] [facility] | [address] | [place] [address] | | | SERVICES, CORE | PARK [...] | | | LABORATORY | | | TURKISH | | | SERVICES, | | | [...] equation recommended by the National | [facility] | | Kidney Disease Education Program. Estimated GFR Interpretive | LABORATORY | | Information: <60 mL/min/1.73 sq m Chronic Kidney | SERVICES, [facility] | | Disease <15 mL/min/1.73 sq m [...] + + + + + | [facility] | [address] | [place] [address] | | | SERVICES, [facility] [...] | + + + + + | [facility] | [address] | [place] [address] | | | SERVICES, CORE | PARK [...] - [facility] | [address] | [place], [place] | | | [facility] R[facility]INE [facility] | [facility] | [address] | | | TESTS | | | [...] [facility] | [address] | [place] [address] | | | VJ, CORE | DWIGHT [...] | | | LABORATORY | | | [place]ISH | | | SERVICES, | | | [...] equation recommended by the National | [facility] | | Kidney Disease Education [...] | + + + + + | [facility] | [address] | [place] [address] | | | SERVICES, CORE | DWIGHT [...] [facility] | [address] | [place] [address] | | | SERVICES, | [address] [...] [facility] | [address] | [place] [address] | | | SERVICES, | [address] [...] + + + + + | [facility] | [address] | [place] [address] | | | SERVICES, CORE | DWIGHT [...] + + + + + | [facility] | [address] | [place] [address] | | | SERVICES, CORE | DWIGHT [...] DEPT OF | [address] | [place], [place] | | | CARDIOLOGY | [address] | [address] | | + + + + + [...] [facility] | [address] | [place], [place] | | | ALEX MORAN [facility] | [facility] | [address] | | | TESTS | | | [...] B for complete identification and susceptibilities | [place] | | Enterococcus faecalis Unable to continue [...] | + + + + + | [facility] - AIRPORT - | [address] | [place] [address] | | | [place] | | | [...] + | [facility] - | [address] | [place] [address] | | | [facility] | [...] | [facility] | | [facility], site B for complete identification and susceptibilities | [place] | | Enterococcus faecalis Refer to culture [...] + | [facility] - | [address] | [place] [address] | | | [place] | | | [...] | + + + + + | [facility] - AIR[facility] - | [address] | [place] [address] | | | [place] | | | [...] + | [facility] - | [address] | [place] [address] | | | [place] | | | | + + + [...] | + + + + + | [facility] | [address] | [place] [address] | | | SERVICES, CORE | PARK [...] [facility] | [address] | [place] [address] | | | SERVICES, CORE | PARK [...] | | | LABORATORY | | | [place]ISH | | | SERVICES, | | | [...] equation recommended by the National | [facility] | | Kidney Disease Education Program. Estimated GFR Interpretive | LABORATORY | | Information: <60 mL/min/1.73 sq m Chronic Kidney | SERVICES, [facility] | | Disease <15 mL/min/1.73 sq m [...] + + + + + | [facility] | [address] | [place] [address] | | | SERVICES, FERMÍN | DWIGHT [...] | + + + + + | [facility] | [address] | [place] [address] | | | SERVICES, CORE | PARK [...] | + + + + + | [facility] | [address] | [place] [address] | | | [facility], [facility] | [...] | [facility] | | considered for monitoring salvage determiner glycemic control in patients with: | LABORATORY [...] | + + + + + | [facility] | [address] | [place] [address] | | | SERVICES, SPECIAL | PARK [...] + | [facility] AIR[facility] - | [address] | [place] [address] | | | [place] | | | [...] | + + + + + | [facility] | [address] | [place] [address] | | | SERVICES, CORE | DWIGHT [...] | + + + + + | [facility] | [address] | [place] [address] | | | SERVICES, CORE | DWIGHT [...] [facility] | [address] | [place] [address] | | | VJ, FERMÍN | PARK [...] | + + + + + | [facility] | [address] | [place] [address] | | | SERVICES, CORE | DW[address] [...] [facility] | [address] | [place], [place] | | | ALEX MORAN OF STAR | [facility] | [address] | | | TESTS | | | [...] [facility] | [address] | [place] [address] | | | SERVICES, CORE | [address] | | | + + + + + ETHANOL (ALCOHOL), BLOOD (09/03/2019 7:24 PM PDT) + +-------+ + + + | Component | Value | Ref Range | Performed | Pathologist | | | | | At | Signature | + +-------+ + + + | ETHANOL | <10 | <10 mg/dL | [facility] | | | (ALCOHOL) | | | [...] [facility] | [address] | [place] [address] | | | SERVICES, CORE | DWIGHT [...] [facility] | [address] | [place] [address] | | | SERVICES, CORE | PARK [...] [facility] | [address] | [place] [address] | | | SERVICES, CORE | PARK [...] | | | LABORATORY | | | [place] | | | SERVICES, | | | [...] equation recommended by the National | [facility] | | Kidney Disease Education [...] | + + + + + | [facility] | [address] | [place] [address] | | | SERVICES, CORE | DWIGHT [...] Makeda James MD | |Dictation initiated: Makeda Jaems MD 09/03/2019 8:15 PM | + + [...] [facility] | [address] | [place] [address] | | | SERVICES, | [address] [...] + + + + + | [facility] | [address] | [place] [address] | | | SERVICES, CORE | PARK [...] | + + + + + | [facility] | [address] | [place] [address] | | | SERVICES, CORE | PARK [...] + + + + + | [facility] | [address] | [place] [address] | | | SERVICES, CORE | DWIGHT [...] | | | | First dose on [facility] 09/04/19 at | | AM PST [...] | | | | | dose on [facility] 09/04/19 at 0900, | | AM [...]
--- OUTSIDE RECORDS SUMMARY | ~2020-05-24 | XMS | Encounter Summary ---
Demographics + + + | Address | [address] | | | [place] [address] | + + + | Home Phone | | + + + | Preferred Language | Unknown | + + + | Marital Status | Single | + + + | Spiritism Affiliation | Unknown | + + + | Race | Unknown | + + + | Ethnic Group | Unknown | + + + Author + + + | Author | [facility] | | | and [place] | + + + | Organization | [facility] | | | [...] Team Providers + +------+ + | Care Administrator Pesticide Name | Role | Phone | + [...] + + | 10/24/ | Telephone | [facility] | Heather Russo | Other (lab results) | | 2019 | | INFECTIOUS DISEASE | [address] | | | | | [address] | | | | | | [place] | | | | | | [address] | | | | | | [phone] | | | +--------+ + + + [...] Russo RN - 10/28/2019 10:00 AM PSTCalled [facility] requested vancomycin trough results [...]
--- OUTSIDE RECORDS SUMMARY | ~2020-05-24 | XMS | Encounter Summary ---
Demographics + + + | Address | [address] | | | [place] [address] | + + + | Home Phone [...] + + + | Author | [facility] | + + + | Organization | [facility] | + + + | Address | [...] Team Providers + +------+ + | Care Life Specialist Name | Role | Phone | [...] | | | | [address] [facility] | [place], [place] | | | | | Health and Healing, | [address] | | | | | [facility] | [phone] | | | | | Floor [place], [place] | | | | | | [address] | | | | | | [phone] | | | +--------+ + + + [...]
--- OUTSIDE RECORDS SUMMARY | ~2020-05-24 | XMS | Encounter Summary ---
Demographics + + + | Address | [address] | | | [place] [address] | + + + | Home Phone [...] + + + | Author | [facility] | | | and [place] | + + + | Organization | [facility] | | [...] Team Providers + +------+ + | Care Radioisotope Production Operator Name | Role | Phone | [...] + + | 10/13/ | Documentati | [facility] | Scotty Donovan DO | Results | | 2019 | on | INFECTIOUS DISEASE | [address] | ([facility], | | | | [address] | [place] [address] | Vacno, CRP, CBC, ESR | | | | [place], [place] | [phone] | ) | | | | [address] | | | | | | [phone] | | | +--------+ + + + [...] + + | REFERENCE LAB | [address] | [place] | [phone] | | [facility] | | [address] | | + + + + + [...] + + | REFERENCE LAB | [address] | [place], [place] | [phone] | | [facility] | | [address] | | + + + + + [...] [address] | [place] | [phone] | | [facility] | | [address] | | + + + + + [...] | [address] | [place] | [phone] | | [facility] | | [address] | | + + + + + [...] [address] | [place] | [phone] | | [facility] | | [address] | | + + + + + documented in this encounter Visit Diagnoses Not on filedocumented in this encounter"
--- OUTSIDE RECORDS SUMMARY | ~2020-05-24 | XMS | Encounter Summary ---
Demographics + + + | Address | [address] | | | [place] [address] | + + + | Home Phone [...] Team Providers + +------+ + | Care Vocational Rehabilitation Counselor Name | Role | Phone | + [...] [address] | | | | | | [place], [place] | | | | | | [address] | | | +--------+ + + + [...] | | | | | | of [email or web address] | | | | | | days. [...] Dexter | | | | | | [facility], | | | | | | [place], delivered via | | | | | | instrumentation technician on moist gauze | | | | [...] | + + + + + | [facility] | [address] | [place] [address] | | | PATHOLOGY | [address] | | | + + + + + documented in this encounter Visit Diagnoses Not on filedocumented in this encounter
--- OUTSIDE RECORDS SUMMARY | ~2020-05-24 | XMS | Encounter Summary ---
Demographics + + + | Address | [address] | | | [place] [address] | + + + | Home Phone [...] Providers + +------+ + | Care Senior Advisory Name | Role | Phone | + [...] | | | | Loop [facility] | [place], [place] | (Creatinine); | | | | [place], 3rd floor | [address] | Infectious disease | | | | [place], [place] | [phone] | | | | | [address] | | | | | | [phone] | | | +--------+ + + + [...]
--- OUTSIDE RECORDS SUMMARY | ~2020-05-24 | XMS | Encounter Summary ---
Demographics + + + | Address | [address] | | | [place] [address] | + + + | Home Phone [...] Team Providers + +------+ + | Care Grout Pump Operator Name | Role | Phone | [...]
--- OUTSIDE RECORDS SUMMARY | ~2020-05-24 | XMS | Encounter Summary ---
Demographics + + + | Address | [address] | | | [place] [address] | + + + | Home Phone [...] Team Providers + +------+ + | Care Laundry Assistant Name | Role | Phone | [...] | | | | | unspecified | [place], [place] | | | | | | laterality | [address] | | | | | | Procedures | Phone: | | | | | | PHYSICAL | [phone] | | | | | | THERAPY | Fax: | | | | | | REFERRAL | [phone] | | + +--------+ + + + [...] Rd | | | | | | [place], [place] | [place], [place] | | | | | | [address] | [address] | | | | | | | Phone: | | | | | | | [phone] | | | | | | | Fax: | | | | | | | [phone] | +--------+--------+ + + + + Encounter Details +--------+---------+ + + + | Date | Type | Department | Care Team | Description | +--------+---------+ + + + | 10/14/ | Office | Orthopaedics | Cory Carmen, | Ankle pain, | | 2019 | Visit | [facility] | [address] | unspecified | | | | for Health and | [place], [place] | chronicity, | | | | Healing [address] | [address] | unspecified | | | | [address] [facility] for | [phone] | laterality (Primary | | | | Health and Healing, | | Dx) | | | | | | | | | | Floor [place], [place] | | | | | | [address] | | | | | | [phone] | | | +--------+---------+ + + + [...] might be different fro joseph the original. [facility] Orthopa[facility] Trauma [facility] Today's [...] is NWB. He has remained at a [facility] facility following [facility] discharge for IV-Vanc and wound care. He [...] as listed. Cory Carmen MD [facility] [address] Mailcode: [address] [place] [address] Orders Placed This Encounter X-RAY [...]
--- OUTSIDE RECORDS SUMMARY | ~2020-05-24 | XMS | Encounter Summary ---
Demographics + + + | Address | [address] | | | [place] [address] | + + + | Home Phone [...] + + + | Author | [facility] | | | and [place] | + + + | Organization | [facility] | | | [...] Team Providers + +------+ + | Care Shed Boss Name | Role | Phone | + [...] + + | 10/13/ | Office | [facility] | Scotty Donovan DO | Subacute | | 2019 | Visit | INFECTIOUS DISEASE | [address] | osteomyelitis of | | | | [address] | [place] [address] | left ankle (HCC) | | | | [place], [place] | [phone] | (Primary Dx); | | | | [address] | | Infection of lower | | | | [phone] | | extremity associated | | | [...] extremity edema, atrial fibrillation, hypertension, 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 The patient [...] had apparently some cultures obtained at his [facility] facility which were reportedly negative. [...] 06, 2019 for wound closure. The patient's ut crobiology showed Staphylococcus aureus (MRSA), Corynebacterium striatum, [...] weekend. He has follow-up with orthopedics at [facility] later this week. He denies any nausea, [...]
[2020-05-24] MEDS ORDERED: POTASSIUM CHLO20 ME1 PO (14:17)
[2020-05-24] MEDS ORDERED: LASIX40 MG PO (18:03)
[2020-05-24] MEDS ORDERED: KEFLEX500 MG PO (18:03)
--- NOTE | 2020-05-25 09:08 | EKG ---
[facility] [address] [place] [address] Signed Atrial fibrillation Left axis deviation Septal infarct (cited on or before 12-FEB-2018) Abnormal ECG When compared with ECG of 28-MAY-2019 12:05, Questionable change in initial forces of Anterior leads T wave amplitude has increased in Anterior leads Confirmed by LINCOLN LOAIZA MD ([id number]) on 05/25/2020 9:08:27 AM Electronically Signed By: LINCOLN LOAIZA MD 05/25/20 0908 PATIENT NAME: DIANE BOTELLO Electrocardiogram DATE OF : 50 PHYSICIAN: LINCOLN LOAIZA MD REPORT #: [id number] REPORT IS CONFIDENTIAL AND NOT TO BE RELEASED WITHOUT AUTHORIZATION
== END 2020-05-24 18:29 | disposition home or self-care (01) ==
LOC: ED 12:32
DX: R60.0 Localized edema (principal); I11.0 Hypertensive heart disease with heart failure; I50.9 Heart failure, unspecified; E11.42 Type 2 diabetes mellitus with diabetic polyneuropathy; I48.91 Unspecified atrial fibrillation; Z79.899 Other long term (current) drug therapy; Z79.82 Long term (current) use of aspirin
CPT/HCPCS: 71045; 80053; 80162; 83605; 83880; 84484; 85025; 93005; 93010; 99284-25

== ENCOUNTER 2020-06-01 11:08 | Emergency (ER) | payer MEDICARE, OTHER ==
[~2020-06-01] VITALS: Ht 182.9 cm; Wt 88.5 kg
--- OUTSIDE RECORDS SUMMARY | ~2020-06-01 | XMS | Encounter Summary ---
Demographics + + + | Address | [address] | | | [place] [address] | + + + | Home Phone | | + + + | Preferred Language | Unknown | + + + | Marital Status | Single | + + + | Muslim Affiliation | NRP | + + + | Race | White | + + + | Ethnic Group | Not or | + + + Author + + + | Author | [facility] | + + + | Organization | [facility] | + + + | [...] Team Providers + +------+ + | Care Wheel Tuner Name | Role | Phone | + +------+ + | Dustin Perez MD | PCP | | + +------+ + Reason for Visit AUTH/CERT +--------+--------+ + + + + | Status | Reason | Specialty | Diagnoses / | Referred By | Referred To | | | | | Procedures | Contact | Contact | +--------+--------+ + + + + | | | | | | | +--------+--------+ + + + + Encounter Details +--------+ + + + + | Date | Type | Department | Care Team | Description | +--------+ + + + + | 09/04/ | Anesthesia | 6A Intra Op 3181 | Raimundo Hernandez, | | | 2019 | Event | [address] | [address] | | | | | [facility] | [address] | | | | | Hospital Admitting | [place], [place] | | | | | Desk Located on the | [address] | | | | | 9th floor | [phone] | | | | | [place], [place] | | | | | | [address] | Fannie Duckworth, | | | | | | [address] | | | | | | [address] | | | | | | [place], [place] | | | | | | [address] | | | | | | [phone] | | | | | | | | +--------+ + + + + Anesthesia Record + + + + + | Procedure Name | Responsible | Anesthesia Start | Anesthesia Stop Time | | | Anesthesiologist | Time | | + + + + + | HARDWARE REMOVAL | Raimundo Hernandez MD | 09/04/19 0913 | 09/04/19 1404 | | LEFT ANKLE (Left | | | | | Leg) | | | | + + + + + +----+---+ + + | Da | T | Event | Comment | | te | i | | | | | m | | | | | e | | | +----+---+ + + | 10 | 0 | | | | /2 | 9 | | | | 4/ | 1 | | | | 20 | 2 | | | | 19 | | | | +----+---+ + + | | 0 | Pt. Check | Prior to anesthesia start, pt. Identified, examined, chart | | | 9 | | reviewed, PARQ held, anesthetic plan made or approved by | | | 1 | | attending anesthesiologist. NPO status confirmed as appropriate | | | 2 | | for procedure Preoperative evaluation: unchanged | +----+---+ + + | | 0 | An Start | | | | 9 | | | | | 1 | | | | | 3 | | | +----+---+ + + | | 0 | An Start | | | | 9 | Data | | | | 2 | | | | | 1 | | | +----+---+ + + | | 0 | Vitals | Monitors applied Vital signs checked Patient ready for anesthesia | | | 9 | Checked | | | | 2 | | | | | 5 | | | +----+---+ + + | | 0 | ETT | | | | 9 | | | | | 3 | | | | | 3 | | | +----+---+ + + | | 0 | Ready | | | | 9 | | | | | 3 | | | | | 4 | | | +----+---+ + + | | 0 | Abx | | | | 9 | Administere | | | | 4 | d | | | | 2 | | | +----+---+ + + | | 0 | Timeout | | | | 9 | | | | | 5 | | | | | 0 | | | +----+---+ + + | | 0 | Incision | | | | 9 | | | | | 5 | | | | | 2 | | | +----+---+ + + | | 0 | Quick Note | Unable to obtain NIBP measurement. Patient continues to have | | | 9 | | radial pulses. Giving phenylephrine empirically while continuing | | | 5 | | to troubleshoot NIBP cuff. | | | 5 | | | +----+---+ + + | | 1 | Surgery end | | | | 3 | | | | | 4 | | | | | 2 | | | +----+---+ + + | | 1 | An Extubate | Neuromuscular function Intact. Pharynx suctioned. Patient obeys | | | 3 | | commands. Adequate pulmonary mechanics. | | | 4 | | | | | 5 | | | +----+---+ + + | | 1 | an stop | | | | 3 | data | | | | 4 | | | | | 9 | | | +----+---+ + + | | 1 | PACU Rpt | | | | 4 | Given | | | | 0 | | | | | 4 | | | +----+---+ + + | | 1 | Anesthesia | | | | 4 | End | | | | 0 | | | | | 4 | | | +----+---+ + + | | 1 | Post-Op | | | | 5 | Page | | | | 4 | | | | | 5 | | | +----+---+ + + +------+ | Meds | +------+ + + + | Name | Total | + + + | fentaNYL | 250 mcg | + + + | lidocaine 2% | 100 mg | + + + | propofol (DIPRIVAN) 200 mg | 260 mg | + + + | rocuronium | 40 mg | + + + | ceFAZolin | 2,000 mg | + + + | vancomycin | 1,500 mg | + + + | PHENYLEPHrine | 500 mcg | + + + | magnesium sulfate 2 g | 2 g | + + + | PHENYLEPHrine INF (25mg/250mL) | 9,583 mcg | + + + | ondansetron | 4 mg | + + + | glycopyrrolate | 0.2 mg | + + + | neostigmine vial | 1 mg | + + + | LR | 2,000 mL | + + + + + | Name | + + | O2 FR Avance (Total Liters) | + + | Air FR Avance (l/min) | + + | Insp Iso | + + | Et Iso | + + + + | No blood administrations on file. | + + +--------+ + + + | Type | Details | Placement | Removal | +--------+ + + + | Wound | 09/03/19; 1908; Yes; Left; foot | 09/03/191907 by | | | | | Gwyn Craw | | +--------+ + + + | Wound | 09/04/19; 329; Left; heel; | 09/04/19329 by | | | | Ulceration | Brodie Frances RN | | +--------+ + + + | Incisi | 09/04/19; 1014; Gundle. CHANDLER; Left; | 09/04/191014 by | | | on | Medial, Lower; leg | Cary Jones RN | | +--------+ + + + | Incisi | 09/04/19; 1017; Elan. ; Left; | 09/04/191016 by | | | on | Lateral, Lower; leg | Cary Jones RN | | +--------+ + + + | Incisi | 09/04/19; 1018; Elan. ; Left; | 09/04/19 1018 by | | | on | plantar | Cary Jones RN | | +--------+ + + + | Periph | 09/03/19; EMS; EMS; Left; | 09/03/19 0000 by | 09/07/19 1600 by | | eral | Forearm; 24 g; 09/07/19; 1600; | Maira Lane RN | Phuong Onofre RN | | IV | Infiltrated | | | +--------+ + + + | ETT | 09/04/19; 0933 (created via | 09/04/19 0933 by | 09/04/19 1345 by | | | procedure documentation); 7.5; | Fannie Duckworth MD | Fannie Duckworth MD | | | Oral; Cuffed; 09/04/19; 1345 | | | +--------+ + + + | Periph | 09/04/19; 933; Van Hernandez MD; | 09/04/19933 by | 09/04/192229 by | | paul | Right; Wrist; 16 g; None; No; | Fannie Duckworth MD | Vinay Summers RN | | IV | Positive; 09/04/19; 2229; | | | | | Infiltrated | | | +--------+ + + + documented in this encounter Social History + +-------+ +--------+------+ | Tobacco Use | Types | Packs/Day | Years | Date | | | | | Used | | + +-------+ +--------+------+ | Never Assessed | | | | | + +-------+ +--------+------+ + + + | Sex Assigned at | Date Recorded | | | | + + + | Not on file | | + + + + + + + | Job Start Date | Occupation | Industry | + + + + | Not on file | Not on file | Not on file | + + + + + + + + | Travel History | Travel Start | Travel End | + + + + + + | No recent travel history available. | + + documented as of this encounter Plan of Treatment Not on filedocumented as of this encounter Procedures + +--------+ + + + | Procedure Name | Priori | Date/Time | Associated Diagnosis | Comments | | | ty | | | | + +--------+ + + + | ANE ETT | Routin | 09/04/2019 | | Results for this | | | e | 10:10 AM | | procedure are in the | | | | PDT | | results section. | + +--------+ + + + documented in this encounter Results ETT (09/04/2019 10:10 AM PDT) + + + | Narrative | Performed At | + + + | Fannie Duckworth MD 09/04/2019 10:13 AM AIRWAY MANAGEMENT - | | | ETT Time of Placement: 09/04/2019 9:33 AM Intubation Reason: For | | | surgical procedure Positioning: Supine Location Performed:OR | | | OXYGENATION Patient was preoxygenated Grade: Grade 2 - Ventilated by | | | mask with oral airway/adjuvant Induction:Routine INTUBATION | | | ATTEMPT 1 Blade Type: Mikhail Blade #: 3 Laryngoscopic View: | | | Grade II ATTEMPT 2 Blade Type: Mikhail Blade #: 4 | | | Laryngoscopic View: Grade II ETT DETAILS ETT Type:Standard, Hi-Lo | | | Cuffed Intubation Type: Oral Cuff Status: Cuffed Size: 7.5 ETT | | | secured with adhesive tape Depth at Lip: 23 cm CONFIRMATION | | | Number of Attempts: 2 Positive for EtCO2:Waveform capnography Breath | | | Sounds: Bilateral and equal Procedural Complications: Esophageal | | | intubation NARRATIVE Attending was physically present for the | | | critical portions of the procedure as described in the procedure | | | note Attending/Authorizing Provider: Raimundo Hernandez MD Performing | | | Provider: Fannie Duckworth MD Procedure Comments: First attempt | | | with grade IIa view. Vocal cords anterior with some difficulty | | | advancing ETT to anteriorly to cords due to shape of tube. | | | Esophageal, only single breath given, immediately noted and ETT | | | withdrawn. Patient mask ventilated while ETT reshaped to allow for | | | more anterior passage. Second attempt again with grade IIa view. ETT | | | easily advanced through vocal cords. | | + + + documented in this encounter Visit Diagnoses Not on filedocumented in this encounter Administered Medications + +--------+ + +------+------+ | Medication Order | MAR | Action | Dose | Rate | Site | | | Action | Date | | | | + +--------+ + +------+------+ | ceFAZolin (ANCEF) injection | Given | 09/04/20 | 2,000 mg | | | | INTRAPROCEDURE PRN, Starting Shania | | 19 9:42 | | | | | 09/04/19 at 0942, Until Shania | | AM PDT | | | | | 09/04/19 at 1349 | | | | | | + +--------+ + +------+------+ +---+---+ | | | +---+---+ + +-------+ +--------+---+---+ | fentaNYL (SUBLIMAZE) injection | Given | 09/04/20 | 50 mcg | | | | INTRAPROCEDURE PRN, Starting Shania | | 19 1:32 | | | | | 09/04/19 at 0929, Until Shania | | PM PDT | | | | | 09/04/19 at 1349 | | | | | | + +-------+ +--------+---+---+ +-------+ +--------+---+---+ | Given | 09/04/20 | 50 mcg | | | | | 19 12:27 | | | | | | PM PDT | | | | +-------+ +--------+---+---+ | Given | 09/04/20 | 50 mcg | | | | | 19 10:58 | | | | | | AM PDT | | | | +-------+ +--------+---+---+ +---+---+ | | | +---+---+ + +-------+ +--------+---+---+ | glycopyrrolate (PF) (VIKTORIYA) | Given | 09/04/20 | 0.2 mg | | | | injection soln INTRAPROCEDURE | | 19 1:33 | | | | | PRN, Starting Shania 09/04/19 at | | PM PDT | | | | | 1333, Until Shania 09/04/19 at 1349 | | | | | | + +-------+ +--------+---+---+ +---+---+ | | | +---+---+ + +---------+ +---+---+---+ | lactated ringers IV | New Bag | 09/04/20 | | | | | intravenous, INTRAPROCEDURE | | 19 1:29 | | | | | CONTINUOUS PRN, Starting Shania | | PM PDT | | | | | 09/04/19 at 0913, Until Shania | | | | | | | 09/04/19 at 1349 | | | | | | + +---------+ +---+---+---+ + + +---+---+---+ | New Bag | 09/04/20 | | | | | | 19 10:40 | | | | | | AM PDT | | | | + + +---+---+---+ | given by anesthesiology | 09/04/20 | | | | | | 19 10:16 | | | | | | AM PDT | | | | + + +---+---+---+ +---+---+ | | | +---+---+ + +-------+ +--------+---+---+ | lidocaine (XYLOCAINE MPF) 2 % | Given | 09/04/20 | 100 mg | | | | (20 mg/mL) injection | | 19 9:29 | | | | | intravenous, INTRAPROCEDURE PRN, | | AM PDT | | | | | Starting Shania 09/04/19 at 0929, | | | | | | | Until Shania 09/04/19 at 1349 | | | | | | + +-------+ +--------+---+---+ +---+---+ | | | +---+---+ + +-------+ +-----+---+---+ | magnesium sulfate in water IV | Given | 09/04/20 | 2 g | | | | (RTU) intravenous, | | 19 10:00 | | | | | INTRAPROCEDURE PRN, Starting Shania | | AM PDT | | | | | 09/04/19 at 1000, Until Shania | | | | | | | 09/04/19 at 1349 | | | | | | + +-------+ +-----+---+---+ +---+---+ | | | +---+---+ + +-------+ +------+---+---+ | neostigmine (PROSTIGMIN) | Given | 09/04/20 | 1 mg | | | | intravenous, INTRAPROCEDURE PRN, | | 19 1:33 | | | | | Starting Shania 09/04/19 at 1333, | | PM PDT | | | | | Until Shania 09/04/19 at 1349 | | | | | | + +-------+ +------+---+---+ +---+---+ | | | +---+---+ + +-------+ +------+---+---+ | ondansetron (ZOFRAN) injection | Given | 09/04/20 | 4 mg | | | | INTRAPROCEDURE PRN, Starting Shania | | 19 1:13 | | | | | 09/04/19 at 1313, Until Shania | | PM PDT | | | | | 09/04/19 at 1349 | | | | | | + +-------+ +------+---+---+ +---+---+ | | | +---+---+ + +-------+ +---------+---+---+ | PHENYLEPHrine 100 mcg/mL IV | Given | 09/04/20 | 100 mcg | | | | syringe INTRAPROCEDURE PRN, | | 19 10:31 | | | | | Starting Shania 10/24/19 at 0955, | | AM PDT | | | | | Until Shania 09/04/19 at 1349 | | | | | | + +-------+ +---------+---+---+ +-------+ +---------+---+---+ | Given | 09/04/20 | 100 mcg | | | | | 19 10:19 | | | | | | AM PDT | | | | +-------+ +---------+---+---+ | Given | 09/04/20 | 100 mcg | | | | | 19 10:12 | | | | | | AM PDT | | | | +-------+ +---------+---+---+ +---+---+ | | | +---+---+ + + + + +--------+---+ | PHENYLEPHrine 25 mg/250 mL (0.1 | Rate/Dos | 09/04/20 | 0.3 | 16.65 | | | mg/mL) IV infusion (ADC) | e Change | 19 1:36 | mcg/kg/m | mL/hr | | | intravenous, INTRAPROCEDURE | | PM PDT | in | | | | CONTINUOUS PRN, Starting Shania | | | | | | | 09/04/19 at 1021, Until Shania | | | | | | | 10/24/19 at 1349 | | | | | | + + + + +--------+---+ + + + +--------+---+ | Rate/Dose Change | 09/04/20 | 0.6 | 33.3 | | | | 19 12:47 | mcg/kg/m | mL/hr | | | | PM PDT | in | | | + + + +--------+---+ | Rate/Dose Change | 09/04/20 | 0.5 | 27.75 | | | | 19 10:31 | mcg/kg/m | mL/hr | | | | AM PDT | in | | | + + + +--------+---+ +---+---+ | | | +---+---+ + +-------+ +-------+---+---+ | propofol (DIPRIVAN) 200 mg | Bolus | 09/04/20 | 30 mg | | | | intravenous, INTRAPROCEDURE | | 19 12:25 | | | | | CONTINUOUS PRN, Starting Shania | | PM PDT | | | | | 09/04/19 at 0929, Until Shania | | | | | | | 09/04/19 at 1349 | | | | | | + +-------+ +-------+---+---+ +-------+ +-------+---+---+ | Bolus | 09/04/20 | 30 mg | | | | | 19 10:55 | | | | | | AM PDT | | | | +-------+ +-------+---+---+ | Bolus | 09/04/20 | 50 mg | | | | | 19 9:32 | | | | | | AM PDT | | | | +-------+ +-------+---+---+ +---+---+ | | | +---+---+ + +-------+ +-------+---+---+ | rocuronium injection | Given | 09/04/20 | 40 mg | | | | intravenous, INTRAPROCEDURE PRN, | | 19 9:30 | | | | | Starting Shania 09/04/19 at 0930, | | AM PDT | | | | | Until Shania 09/04/19 at 1349 | | | | | | + +-------+ +-------+---+---+ +---+---+ | | | +---+---+ + +-------+ + +---+---+ | vancomycin (VANCOCIN) injection | Given | 09/04/20 | 1,500 mg | | | | INTRAPROCEDURE PRN, Starting | | 19 9:50 | | | | | Shania 09/04/19 at 0950, Until Shania | | AM PDT | | | | | 09/04/19 at 1349 | | | | | | + +-------+ + +---+---+ +---+---+ | | | +---+---+ documented in this encounter"
--- OUTSIDE RECORDS SUMMARY | ~2020-06-01 | XMS | Encounter Summary ---
Demographics + + + | Address | [address] | | | [place] [address] | + + + | Home Phone | | + + + | Preferred Language | Unknown | + + + | Marital Status | Single | + + + | Church Affiliation | Unknown | + + + | Race | Unknown | + + + | Ethnic Group | Unknown | + + + Author + + + | Author | [facility] | | | and [place] | + + + | Organization | [facility] | | | and [place] | + + + | Address | Unknown | + + + | Phone | Unavailable | + + + Support + + +---------+ + | Name | Relationship | Address | Phone | + + +---------+ + | Joséu An | ECON | Unknown | | + + +---------+ + Care Team Providers + +------+ + | Care Sweat Band Sewer Name | Role | Phone | + +------+ + | Dustin Perez MD | PCP | | + +------+ + Reason for Visit +---------+ + | Reason | Comments | +---------+ + | Results | [facility]--CMP, Vanco, CRP, CBC, ESR | +---------+ + Encounter Details +--------+ + + + + | Date | Type | Department | Care Team | Description | +--------+ + + + + | 10/23/ | Documentati | [facility] | Jaspreet Gunderson, | Results | | 2019 | on | INFECTIOUS DISEASE | Liang Quintana MD | ([facility]--CMP, | | | | [address] | [address] | Vanco, CRP, CBC, ESR | | | | [place], [place] | [place] [address] | ) | | | | [address] | [phone] | | | | | [phone] | | | +--------+ + + + [...] | + +--------+ + + + | SEDIMENTATION RATE | Routin | 10/20/2019 | | Results for this | | | e | | | procedure are in the | | | | | | results section. | + +--------+ + + + | CBC WITH | Routin | 10/20/2019 | | Results for this | | DIFFERENTIAL | e | | | procedure are in the | | | | | | results section. | + +--------+ + + + | C-REACTIVE PROTEIN | Routin | 10/20/2019 | | Results for this | | | e | | | procedure are in the | | | | | | results section. | + +--------+ + + + | VANCOMYCIN, TROUGH | Routin | 10/20/2019 | | Results for this | | | e | | | procedure are in the | | | | | | results section. | + +--------+ + + + | COMPREHENSIVE | Routin | 10/20/2019 | | Results for this | | METABOLIC PANEL | e | | | procedure are in the | | | | | | results section. | + +--------+ + + + documented in this encounter Results Sedimentation Rate (10/20/2019) + +--------+ + + + | Component | Value | Ref Range | Performed | Pathologist | | | | | At | Signature | + +--------+ + + + | Erythrocyte | 46 (A) | 0 - 10 mm/hr | | | | | | | | | | Sedimentati | | | | | | on Rate | | | | | + +--------+ + + + + + | Specimen | + + | Blood | + + C-Reactive Protein (10/20/2019) + +-------+ + + + | Component | Value | Ref Range | Performed | Pathologist | | | | | At | Signature | + +-------+ + + + | CRP | 23 | mg/L | | | + +-------+ + + + + + | Specimen | + + | Blood | + + CBC with Differential (10/20/2019) + +-------+ + + + | Component | Value | Ref Range | Performed | Pathologist | | | | | At | Signature | + +-------+ + + + | WBC | 7.9 | | | | + +-------+ + + + | RBC COUNT. | 4.66 | | | | + +-------+ + + + | Hemoglobin | 11.1 | | | | + +-------+ + + + | HCT, | 34.8 | | | | | External | | | | | + +-------+ + + + | MCV | 74.7 | | | | + +-------+ + + + | RDW | 18.8 | | | | + +-------+ + + + | MCH | 24 | | | | + +-------+ + + + | MCHC | 32 | | | | + +-------+ + + + | PLT, | 32 | | | | | External | | | | | + +-------+ + + + | NEUTROPHILS | 59.8 | % | | | | BL | | | | | + +-------+ + + + | LYMPHOCYTES | 19.5 | % | | | | BL | | | | | + +-------+ + + + | MONOCYTES | 9.4 | | | | | BAL | | | | | + +-------+ + + + | Eosinophil | 10.4 | | | | | Count | | | | | + +-------+ + + + | Basos | 0.9 | | | | + +-------+ + + + + + | Specimen | + + | Blood | + + Vancomycin, Trough (10/20/2019) + +-------+ + + + | Component | Value | Ref Range | Performed | Pathologist | | | | | At | Signature | + +-------+ + + + | Vancomycin | 14.3 | ug/mL | | | | Trough | | | | | + +-------+ + + + + + | Specimen | + + | Blood | + + Comprehensive Metabolic Panel (10/20/2019) + +-------+ + + + | Component | Value | Ref Range | Performed | Pathologist | | | | | At | Signature | + +-------+ + + + | Na | 140 | mmol/L | | | + +-------+ + + + | K | 4.1 | 3.2 - 5.7 | | | | | | mmol/L | | | + +-------+ + + + | Cl | 104 | mmol/L | | | + +-------+ + + + | CO2 | 28 | mmol/L | | | + +-------+ + + + | Anion Gap | 12 | mmol/L | | | + +-------+ + + + | Glucose | 114 | mg/dL | | | + +-------+ + + + | Urea | 28 | | | | | Nitrogen, | | | | | | Body fluid | | | | | + +-------+ + + + | CREA | 1.19 | 0.50 - 1.30 | | | | | | mg/dL | | | + +-------+ + + + | GFR | 61 | | | | | ESTIMATE | | | | | | (REF) | | | | | + +-------+ + + + | BUN/Creatin | 23.5 | | | | | ine Ratio | | | | | + +-------+ + + + | Calcium | 9.2 | | | | + +-------+ + + + | AST | 11 | U/L | | | + +-------+ + + + | ALT (SGPT) | 7 | U/L | | | | (REF) | | | | | + +-------+ + + + | Alkaline | 94 | U/L | | | | Phosphatase | | | | | + +-------+ + + + | Bilirubin | 0.3 | mg/dL | | | | Total | | | | | + +-------+ + + + | Protein, | 6.9 | | | | | Total | | | | | + +-------+ + + + | Albumin | 3.8 | g/dL | | | + +-------+ + + + | Globulin | 3.1 | | | | + +-------+ + + + | Albumin/Amanda | 1.2 | | | | | bulin Ratio | | | | | + +-------+ + + + + + | Specimen | + + | Blood | + + documented in this encounter Visit Diagnoses Not on filedocumented in this encounter"
--- OUTSIDE RECORDS SUMMARY | ~2020-06-01 | XMS | Encounter Summary ---
Demographics + + + | Address | [address] | | | [place] [address] | + + + | Home Phone | | + + + | Preferred Language | Unknown | + + + | Marital Status | Single | + + + | Jewish Affiliation | NRP | + + + [...] Team Providers + +------+ + | Care Brushing Operator Name | Role | Phone | + +------+ + | Dustin Perez MD | PCP | | + +------+ + Encounter Details +--------+ + + + + | Date | Type | Department | Care Team | Description | +--------+ + + + + | 09/04/ | Procedure | [id number] | | | | 2019 | Pass | [address] | | | | | | Rd [facility] | | | | | | Hospital Admitting | | | | | | Desk Located on the | | | | | | 9th floor | | | | | | [place], [place] | | | | | | [address] | | | +--------+ + + + + Social History + +-------+ +--------+------+ | Tobacco [...]
--- OUTSIDE RECORDS SUMMARY | ~2020-06-01 | XMS | Encounter Summary ---
Demographics + + + | Address | [address] | | | [place] [address] | + + + | Home Phone | | + + + | Preferred Language | Unknown | + + + | Marital Status | Single | + + + | Restorationist Affiliation | NRP | + + + | Race | White | + + + | Ethnic Group | Not or | + + + Author + + + | Author | [facility] | + + + | Organization | [facility] | + + + | Address | [...] Team Providers + +------+ + | Care Blower Blast Furnace Name | Role | Phone | + [...] | | | | | | Rd [facility] | | | | | | Hospital Admitting | | | | | | Desk Located on the | | | | | | 9th floor | | | | | | [place], [place] | | | | | | [address] | | | +--------+ + + + [...]
--- OUTSIDE RECORDS SUMMARY | ~2020-06-01 | XMS | Encounter Summary ---
Demographics + + + | Address | [address] | | | [place] [address] | + + + | Home Phone | | + + + | Preferred Language | Unknown | + + + | Marital Status | Single | + + + | Restoration Affiliation | NRP | + + + | Race | White | + + + | Ethnic Group | Not or | + + + Author + + + | Author | [facility] | + + + | Organization | [facility] | + + + | [...] Team Providers + +------+ + | Care Farmworker Bulbs Name | Role | Phone | + +------+ + | Rio Huerta MD | PCP | | + +------+ + Reason for Visit + + + | Reason | Comments | + + + | Cellulitis | | + + + AUTH/CERT +--------+--------+ + + + + | Status | Reason | Specialty | Diagnoses / | Referred By | Referred To | | | | | Procedures | Contact | Contact | +--------+--------+ + + + + | | | | | | | +--------+--------+ + + + + Encounter Details +--------+---------+ + + + | Date | Type | Department | Care Team | Description | +--------+---------+ + + + | 09/04/ | Surgery | [id number] | Olivier Ansari, | HARDWARE REMOVAL | | 2019 | | [address] | [address] [facility] | LEFT ANKLE | | | | [address] [facility] | [address] [place] | | | | | Hospital Admitting | [place], [place] | | | | | Desk Located on the | [id number] | | | | | 9th floor | [phone] | | | | | [place], [place] | | | | | | [address] | | | +--------+---------+ + + + Social History + +-------+ [...] + + + | Blood Pressure | 122/70 | 09/17/2019 7:39 AM | | | | | PST | | + + + + + | Pulse | 94 | 09/17/2019 7:39 AM | | | | | PST | | + + + + + | Temperature | 36.8 C (98.2 F) | 09/17/2019 7:39 AM | | | | | PST | | + + + + + | Respiratory Rate | 16 | 09/17/2019 7:39 AM | | | | | PST | | + + + + + | Oxygen Saturation | 97% | 09/17/2019 7:39 AM | | | | | PST | | + + + + + | Inhaled Oxygen | - | - | | | Concentration | | | | + + + + + | Weight | 93.4 kg (206 lb) | 09/04/2019 7:00 PM | not sure how the bed | | | | PDT | was zeroed | + + + + + | Height | 182.9 cm (6') | 09/06/2019 8:22 AM | | | | | PDT | | + + + + + | Body Mass Index | 27.94 | 09/04/2019 7:00 PM | | | | | PDT [...] documented as of this encounter Discharge Summaries Johnathan Lockwood MD - 09/17/2019 12:07 PM PST [facility] Discharge Summary Discharging Provider: Johnathan Lockwood MD Discharging Attending Physician: To Henriquez MD PCP: Rio Huerta MD Admission Date: 09/03/2019 Discharge Date: 09/17/2019 Hospital Stay: 14 day(s) Discharge Location: [facility] [place] . [phone] [facility] FOLLOW UP NEEDS: 1) Infectious Disease, [facility], [place], ~10/08/2019 2) Orthopedi cs, [facility] in the Dr. 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 Four-compartment fasciotomy, left leg, with incision, irrigation and debridement , via 2 incisions. 2. Removal of hardware deep implant with curettage of the calcaneus and talus. 3. Incision, irrigation and debridement of a left ankle incomplete fusion. 4. Ankle fusion spanning antibiotic nail through the hindfoot. 5. Placement of an external tissue clerk guide, area other than breast. 6. Placement of a non-prefabricated negative pressure wound therapy device, area gr eater than 50 sq cm. 09/06 Procedure(s) Performed: 1. Irrigation and excisional debridement fasciotomy sites left ankle, medial site 6 centime ters by 32 centimeters. Lateral site 3 centimeters by 28 centimeters. 2. Irrigation and excisional debridement plantar foot wound 2 centimeters by 4 centimeters 3. Closure fasciotomy site x2 Reason for Admission: 69 y.o. M w/ PMH of AF, reported hx of ETOH resulting in ETOH Cirrhosis, and L ankle fusion 3 years ago who presented on 09/03/2019 with exposed screw on the dorsum of the left foot w ith overlying LLE cellulitis, left heel pressure ulcer, left leg fluctuance as well as gross edema and purulent drainage from screw exposure site. He was taken to the OR on 09/04 and a gain on 09/06 for operative treatment for infection. Hospital Course by Problem: #) Necrotizing soft tissue infection of the LLE #) Infection of the LE associated with hardware #) MRSA Osteomyelitis of the L ankle #) Left Heel Ulcer #) Post Operative pain S/P OR with ortho on 09/04, completed 4-compartment fasciotomy, hardware removed, I&D, plac ed antibiotic nail and wound vac; returned to OR 09/06 for repeat washout, additional debrid ement, and fasciotomy closure. Per ortho, skin quality poor, will have a prolonged course an d may fail to heal, in which case he would require a BKA. Will keep abx nail in place for no w. Deep wound cultures growing MRSA and E faecalis. Followed by ID as well and started on va ncomycin to run a total 6 week course (to be completed on 10/17) via LUE PICC (placed on 08-13). - Vancomycin 09-06-2019 until 10-17-2019 (6 wk course); goal trough to be 13-17mg/dl - Weekly CBC w diff, CMP, CRP, and vancomycin trough levels - ID F/U in [place], ~10/08 timeframe - Wound check and suture removal by 09/26/2019; OK for SNF to remove sutures - Ortho F/U ~10/21 timeframe w/ Dr. Carmen in [facility] - Activity restrictions: LLE: NWB, elevated, Rooke pressure boot (concern for d evelopment of pressure sore) - Wound care: daily wet-to-dry dressing changes - Maintain PICC line per protocol; placed on 09-09-2019 - Pain control: APAP 1000mg Q8H; oxycodone 5mg q6H PRN Pain + bowel regimen - Continue PT/OT at next level of care. #) Persistent Atrial Fibrillation On home digoxin. Has been well rate controlled here although per ortho report was in afib w ith RVR intraoperatively on 09/04. CHADsVASc 3 (age, htn, DM); HAS BLED 4. 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 No history of complications. - Continue home torsemide 10mg daily - Continue home KCl 20 mEq daily - Continue home gabapentin 600mg TID - Continue home thiamine 100mg daily - Continue home B12 supplements #) BPH - Continue tamsulosin 0.4mg qHS Consultants (service): #) Orthopedics, Dr. Carmen #) Infectious Disease, Dr. De León Discharge Medications: Medication List START taking these medications acetaminophen 500 mg Tab Commonly known as: TYLENOL Take 2 tablets by mouth three times daily. oxyCODONE (immediate release) 5 mg Tab Commonly known as: ROXICODONE Take 1 tablet by mouth every six hours as needed for moderate pain (unresponsive to non-opi oid medication). polyethylene glycol 17 gram Pwpk Commonly known as: MIRALAX Mix 1 packet and take orally once daily. vancomycin Solr Commonly known as: VANCOCIN Inject 1,250 mg into the vein (IV) every twenty-four hours. To be admixed per infusion phar jaylen standard policy and/or procedure. Indications: bone/joint infection CHANGE how you take these medications * gabapentin 600 mg Tab Commonly known as: NEURONTIN Take 600 mg by mouth three times daily. Indications: alcoholism What changed: Another medication with the same name was added. Make sure you understand ho w and when to take each. * gabapentin 300 mg Cap Commonly known as: NEURONTIN Take 2 capsules by mouth three times daily. Indications: alcoholism What changed: You were already taking a medication with the same name, and this prescripti on was added. Make sure you understand how and when to take each. potassium chloride SR 20 mEq Tbtq Commonly known as: K-DUR Take 1 tablet by mouth once daily. What changed: when to take this * This list has 2 medication(s) that are the same as other medications prescribed for you. Read the directions carefully, and ask your doctor or other care provider to review them wi th you. CONTINUE taking these medications aspirin EC 81 mg Tbec Take 81 mg by mouth once daily. Indications: atrial fibrillation cyanocobalamin 100 mcg Tab Commonly known as: VITAMIN B-12 Take 500 mcg by mouth once daily. digoxin 125 mcg Tab Commonly known as: LANOXIN Take 125 mcg by mouth once daily. Indications: Ventricular Rate Control in Atrial Fibrillat ion melatonin 3 mg Tab Take 3 mg by mouth once daily in the evening. multivitamin-iron Tab Commonly known as: ONE DAILY with IRON Take 1 tablet by mouth once daily. omeprazole 20 mg Cpdr Commonly known as: PRILOSEC Take 20 mg by mouth two times daily. Administer 30 to 60 minutes before meals tamsulosin 0.4 mg Cap Commonly known as: FLOMAX Take 0.4 mg by mouth once daily. thiamine mononitrate 100 mg Tab Take 100 mg by mouth once daily. torsemide 10 mg Tab Commonly known as: DEMADEX Take 10 mg by mouth once daily in the morning. Indications: visible water retention Rationale for Medication Changes: None Allergies: No Known Allergies Code Status: Full POLST completed: no Additional Instructions: - Other Orders & Follow-up Plan Wound Care: Dressings/Drains: DRESSING CARE He will need daily wet-to-dry dressing changes on his posterior heel on the affected extrem ity. Leave dressing in place until follow up appointment, or at a minimum, 7-10 days after leavi ng the hospital. After that time, you may change your dressing daily and check the incision for any signs of infection, such as: redness, swelling, unusual pain, or increasing draina ge. Your incision should be kept clean and dry. If you have sutures or giselle, do not get your wound wet for 5-7 days after your operation: either sponge bathe or cover the incision with a waterproof bandage. You may shower, but please do not scrub at the dressing/surgical site. Please do not bath or soak the dressing. Keep your incision covered with a dressing until there is no discharge on bandage. Do not soak in a bath tub or hot tub until your wound is completely healed, this usually ta kes 3-4 weeks Do not shave over the incision. Do not use lotions, powders, oils, or ointmen ts on your incision. 8. Follow-up: We would be happy to see Mr An in clinic for wound check and suture remov al but understand this may require a long transport. OK for SNF to remove sutures in 3weeks (~09/29/2019) then follow up 6weeks (~10/20/2019) with Dr Carmen. Please call the clinic to make a follow up appointment ORTHO TRAUMA & FRACTURE, . Daily weights Physical Therapy: Evaluate & Treat Occupational Therapy: Evaluate & Treat Maintain PICC Line, dressing change per facility protocol or every week AND PRN soiling. Full Code PPD per policy Facility MD to follow/manage patient "I certify that post-hospital inpatient longterm facility care is medically necessar y on a continuing basis for treatment of the same condition for which inpatient acute hospit al care was received." JOHNATHAN LOCKWOOD MD Discharge Destination - Selection Complete Service Provider Request Status Selected Services Address Phone Number Fax Number Hellen [place] Rajinder Selected Alf [address], [place] [id number] Home Care Medical No service has been selected for the patient. Community Resources No service has been selected for the patient. Durable Medical Equipment No service has been selected for the patient. Dialysis/Infusion No service has been selected for the patient. Follow Up: Contact information for other follow-up providers Cory Carmen MD. Schedule an appointment as soon as possible for a visit on 10/20/2019. Specialty: Orthopedic Surgery Why: For wound re-check Contact information [address] [place] [phone] RIO HUERTA MD. Go on 09/24/2019. Specialty: Family Medicine Why: Appt: Tuesday, September 24, 2019 @ 08:40am. Address: [address] [place] [address], [address], [place] Contact information [facility] [place] [address] Surya Coffman MD. Go on 09/30/2019. Why: Appt: Monday, September 30, 2019 @ 09:45am Contact information [address] [place] [phone] Contact information for after-discharge care [facility] . Service: Alf Contact information [address] [place] [id number] Discharge Physical Exam: Last 24 hour min/max Temp: 36.8 C (98.2 F) Temp Min: 36.4 C (97.5 F) Max: 36.8 C (98.2 F) Pulse: 94 Pulse Min: 92 Max: 94 Resp: 16 Resp Min: 16 Max: 16 BP: 122/70 BP Min: 122/70 Max: 131/71 SpO2: 97 % SpO2 Min: 97 % Max: 98 % Body mass index is 27.94 kg/m. General: elderly appearing male in NAD HEENT/Neck: JVP not observed Pulmonary: breathing comfortably on RA. Musculoskeletal: LLE wrapped and elevated Neuro: Facial muscles intact. MS in tact Psych: no apparent distress Lines: LUE PICC in place Johnathan Lockwood MD PGY - 3 | Internal Medicine | [id number] [facility] [place] Associated attestation - To Henriquez MD - 09/18/2019 6:57 AM PST INPATIENT FACULTY PROGRESS NOTE - GM 3 Author; TO HENRIQUEZ MD Attending Physician: To Henriquez MD Hospital Day: 14 PCP: Rio Huerta MD PCP PCP Late Entry for September 17, 2019, when I completely evaluated, examined, and documented, th en 'pended' my note, & 'pasted' it below, in order to allow for the resident's autonomous co mpletion of their assessment Patient's Name: Monty An Today's Date: 09/18/2019 Leaner Attestation Statement A resident (Dr. Lockwood) assisted with documenting this service. I saw the patient and review ed and verified all information documented by the resident, and made modifications to such i nformation, when appropriate. 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 9) Gynecomastia, male (Juni III) 10) Neuropathy, hereditary sensory (per patient w ++ 1st degree FH) 11) Alcohol use disorder, mild, in sustained remission, abuse 12) Encounter for long-term (current) use of antibiotics SURROGATE DECISION MAKER Surrogate Decision Maker Primary Surrogate Decision Maker Josué An son [phone] TO HENRIQUEZ MD [address] agricultural equipment sales manager Division of Hospital Medicine Department of Medicine [address] [place] [id number] documented in this encounter Discharge Instructions Discharge Instr - Diet (facility) Johnathan Lockwood MD - 09/15/2019 9:38 PM PSTDiet Type: Re gular diet Discharge Instr - Activity (facility) Johnathan Lockwood MD - 09/15/2019 9:35 PM PSTFormattin g of this note might be different from the original. Activity: Weight bearing: non-weight bearing, left lower extremity ROM: Elevate leg as much as tolerated, keep LLE in posterior foot splint Discharge Instr - Additional Instructions (facility) Johnathan Lockwood MD - 09/15/2019 9:39 PM PST Wound Care: Dressings/Drains: DRESSING CARE He will need daily wet-to-dry dressing changes on his posterior heel on the affected extrem ity. Leave dressing in place until follow up appointment, or at a minimum, 7-10 days after leavi ng the hospital. After that time, you may change your dressing daily and check the incision for any signs of infection, such as: redness, swelling, unusual pain, or increasing draina ge. Your incision should be kept clean and dry. If you have sutures or giselle, do not get your wound wet for 5-7 days after your operation: either sponge bathe or cover the incision with a waterproof bandage. You may shower, but please do not scrub at the dressing/surgical site. Please do not bath or soak the dressing. Keep your incision covered with a dressing until there is no discharge on bandage. Do not soak in a bath tub or hot tub until your wound is completely healed, this usually ta kes 3-4 weeks Do not shave over the incision. Do not use lotions, powders, oils, or ointmen ts on your incision. Follow-up: We would be happy to see Mr An in clinic for wound check and suture remov al but understand this may require a long transport. OK for SNF to remove sutures in 3weeks (~09/29/2019) then follow up 6weeks (~10/20/2019) with Dr Carmen. Please call the clinic to make a follow up appointment ORTHO TRAUMA & FRACTURE, . Daily weights Physical Therapy: Evaluate & Treat Occupational Therapy: Evaluate & Treat Maintain PICC Line, dressing change per facility protocol or every week AND PRN soiling. Full Code PPD per policy Facility MD to follow/manage patient "I certify that post-hospital inpatient longterm facility care is medically necessar y on a continuing basis for treatment of the same condition for which inpatient acute hospit al care was received." JOHNATHAN LOCKWOOD MD Discharge Instr - Electronic Signature Johnathan Lockwood MD - 09/15/2019 9:39 PM PSTAfter Vi sit Summary Signature Electronically signed by: JOHNATHAN LOCKWOOD MD, 09/15/2019 at 9:39 PM documented in this encounter Medications at Time of Discharge + + + +---------+ + + | Medication | Sig | Dispensed | Refills | Start | End Date | | | | | | Date | | + + + +---------+ + + | acetaminophen 500 | Take 2 tablets by | | 0 | 09/17/20 | | | mg oral | mouth three times | | | 19 | | | tabletIndications: | daily. | | | | | | Infection of lower | | | | | | | extremity associated | | | | | | | with hardware ([facility]) | | | | | | + + + +---------+ + + | aspirin EC 81 mg | Take 81 mg by mouth | | 0 | | | | oral tablet,delayed | once daily. | | | | | | release | Indications: atrial | | | | | | (DR/EC)Indications: | fibrillation | | | | | | atrial fibrillation | | | | | | + + + +---------+ + + | cyanocobalamin 100 | Take 500 mcg by | | 0 | | | | mcg oral tablet | mouth once daily. | [...] + + +---------+ + + | gabapentin 300 mg | Take 2 capsules by | 90 | 0 | 09/17/20 | | | oral | mouth three times | capsule | | 19 | | | capsuleIndications: | daily. Indications: | | | | | | alcoholism | alcoholism | | | | | + + + +---------+ + + | gabapentin 600 mg | Take 600 mg by mouth | | 0 | | | | oral | three times daily. | | | | | | tabletIndications: | Indications: | | | | | | alcoholism | alcoholism | | | | | + + + +---------+ + + | melatonin 3 mg | Take 3 mg by mouth | | 0 | [...] + | omeprazole 20 mg | Take 20 mg by mouth | | 0 | | | | oral capsule,delayed | two times daily. | | | | | | release(DR/EC) | Administer 30 to 60 | | | | | | | minutes before meals | | | | | + + + +---------+ + + | polyethylene | Mix 1 packet and | | 0 | 09/17/20 | | | glycol 17 gram oral | take orally once | | | 19 | | | powder in packet | daily. | | | | | + + + +---------+ + + | potassium chloride | Take 1 tablet by | 30 | 0 | 09/17/20 | | | SR 20 mEq oral | mouth once daily. | tablet | | 19 | | | tablet,ER | | | | | | | particles/crystals | | | | | | + + + +---------+ + + | tamsulosin 0.4 mg | Take 0.4 mg by mouth | | 0 | | | | oral capsule | once daily. | | | | | + + + +---------+ + + | thiamine | Take 100 mg by mouth | | 0 | | | | mononitrate 100 mg | once daily. | | | | | | oral tablet | | | | | | + + + +---------+ + + | torsemide 10 mg | Take 10 mg by mouth | | 0 | | | | oral | once daily in the | | | | | | tabletIndications: | morning. | | | | | | edema | Indications: visible | | | | | | | water retention | | | | | + + + +---------+ + + | oxyCODONE | Take 1 tablet by | 60 | 0 | 09/17/20 | | | (immediate release) | mouth every six | tablet | | 19 | 9 | | 5 mg oral | hours as needed for | | | | | | tabletIndications: | moderate pain | | | | | | Infection of lower | (unresponsive to | | | | | | extremity associated | non-opioid | | | | | | with hardware (HCC) | medication). | | | | | + + + +---------+ + + documented as of this encounter Progress Notes To Henriquez MD - 09/16/2019 10:04 AM PSTFormatting of this note might be different from t he original. INPATIENT FACULTY PROGRESS NOTE - GM 2 Author; TO HENRIQUEZ MD Attending Physician: To Henriquez MD Hospital Day: 13 PCP: Rio Huerta MD PCP PCP Late Entry for September 16, 2019, when I completely evaluated, examined, and documented, th en 'pended' my note, & 'pasted' it below, in order to allow for the resident's autonomous co mpletion of their assessment Patient's Name: Monty An Today's Date: 09/17/2019 Leaner Attestation Statement A resident (Dr. Niño) assisted with documenting this service. I saw the patient and review ed and verified all information documented by the resident, and made modifications to such i nformation, when appropriate. 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 F/U PCP, NO liver toxins) 9) Neuropathy, hereditary sensory (per patient w ++ 1st degree FH) Composite Mechanic re: skin/foot care (a la DM) 10) Alcohol use disorder, mild, in sustained remission, abuse 11) Encounter for long-term (current) use of antibiotics SURROGATE DECISION MAKER Surrogate Decision Maker Primary Surrogate Decision Maker Josué An son [phone] TO HENRIQUEZ MD [address] agricultural equipment sales manager Division of Hospital Medicine Department of Medicine [facility] & [address] 12/[facility] [place] [address] Amber Wan MD - 1 11/16/2018 7:13 AM PST General Internal Medicine 3 Progress Note 24 Hour Events: No acute events overnight. Current Symptoms: Pain continues to be well controlled. Asking about how to take care of PICC. Physical Examination: Last 24 hour min/max Temp: 36.8 C (98.2 F) Temp Min: 36.3 C (97.3 F) Max: 37.2 C (99 F) Pulse: 90 Pulse Min: 66 Max: 90 Resp: 14 Resp Min: 14 Max: 18 BP: 103/49 BP Min: 103/49 Max: 129/69 SpO2: 96 % SpO2 Min: 96 % Max: 100 % Body mass index is 27.94 kg/m. General: older male lying in bed with elevated left leg, pleasant, no distress HEENT: EOMI grossly Lungs: normal respiratory effort, CTAB, no wheezes CV: irregularly irregular, regular rate, systolic murmur (not new) heard best in right and left 2nd intercostal spaces Abd: Prominent gynecomastia bilaterally, otherwise soft, nontender, nondistended. MSK: LLE wrapped. RLE with venous stasis dermatitis. Left arm PICC Neuro: AAOx3, no focal deficits Laboratory Interpretation: CBC with diff last 72 hours (or 3 results) - Refreshable Recent Labs 09/15/19 0419 WBC 8.96 HB 9.5* HCT 30.8* PLT 395 NEUTROPERC 64.4 LYMPHPERC 16.9* MONOPERC 8.4 BASOPERC 0.8 EOSPERC 8.7* Chemistries: Last 72 Hours (or 3 results) - Refreshable Recent Labs 09/15/19 0400 NA 139 K 4.3 CL 104 BICARB 31 BUN 22* EGFRAFRICAN >60 CR 1.11 GLU 122* CA 9.1 Micro: Tissue culture 09/04: MRSA, Enterococcus faecalis, Corynebacterium striatum Blood culture 09/03: NG 5 days EK/24- irregularly irregular, rate 96, Qtc 507 Imaging Interpretation: 09/08 tib/fib XR Interval left ankle hardware removal and antibiotic nail placement with decreased subcutane ous edema. No aggressive bone destruction identified. 09/09 CXR Left PICC with tip in the region of the superior cavoatrial junction. Small right pleural effusion and associated atelectasis with stable elevation of the right hemidiaphragm. Assessment and Plan 69 y.o. M with AF on digoxin, ETOH cirrhosis, ETOH Use D/O in remission, left ankle fusion 3 years ago presenting with exposed hardware, now s/p four-compartment fasciotomy, debrideme nt, removal of hardware, followed by repeat debridement and fasciotomy closure, on vancomyci n for MRSA SSTI/OM. # Infected L ankle fusion s/p hardware removal, fasciotomy/debridement x2 followed by closu re of fasciotomy # left heel ulcer S/p OR with ortho on 09/04, completed 4-compartment fasciotomy, hardware removed, I&D, plac ed antibiotic nail and wound vac; returned to OR 09/06 for repeat washout, additional debrid ement, and fasciotomy closure. Per ortho, skin quality poor, will have a prolonged course an d may fail to heal, in which case he would require a BKA. Deep wound cultures growing MRSA and E faecalis. Ortho and ID following - on vancomycin, goal trough 13-17, anticipated duration 6 weeks from last debridement (-10/17) - PICC placed 09/09 - Activity restrictions: NWB for 6 weeks, elevated, rooke boot in place while in bed - PT following - see ortho note 09/09 for details on dressing care, follow up recs - follow up: [facility] ID faculty with preference to schedule with next available clinic provid er in 3 weeks post hospital discharge. # post operative pain Pain is well controlled on current regimen. Patient alert and interactive today. -oxycodone 5 mg q 6 hours prn # persistent atrial fibrillation On home digoxin. Has been well rate controlled here although per ortho report was in afib w ith RVR intraoperatively on 09/04. CHADsVASc 3 (age, htn, DM); HAS BLED 4. 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 - held asa in s/o surgery, has been restarted - continue digoxin - goal resting rate <110 # bilateral lower extremity swelling Unclear etiology. Was seeing freight handler who is prescribing torsemide 10 mg daily for the swelling, however not noted to have diagnosis of heart failure, echo reviewed, normal EF. Po ssible diastolic dysfunction but besides trace LE swelling with chronic venous stasis change s, does not appear volume overloaded at this time. - Continue torsemide, restarted home KCl - Continue to monitor volume status, I&Os # Hx of etoh use disorder # reported etoh cirrhosis Unclear h/o cirrhosis. No records regarding any complications related to this. Quit drinkin g a few months ago. INR decreased to within normal range after Vit K challenge suggesting th at there was a nutritional component to his INR and that hepatic synthetic function is intac t. - continue home gabapentin 600mg tid Dispo: patient ready to discharge tomorrow to [place] in [place]. Code Status: Full Code Surrogate Decision Maker Primary Surrogate Decision Maker Josué An son [phone] This patient was staffed with Dr. To Henriquez, who agrees with the assessment and plan unle ss otherwise stated. Amber Niño Internal Medicine, PGY-1 To Leach MD - 1 11/15/2018 3:19 PM PST INPATIENT FACULTY PROGRESS NOTE - GM 2 Author; TO HENRIQUEZ MD Attending Physician: To Henriquez MD Hospital Day: 12 PCP: Rio Huerta MD PCP PCP Late Entry for September 15, 2019, when I completely evaluated, examined, and documented, th en 'pended' my note, & 'pasted' it below, in order to allow for the resident's autonomous co mpletion of their assessment Patient's Name: Monty An Today's Date: 09/16/2019 Leaner Attestation Statement A resident (Dr. Niño) assisted with documenting this service. I saw the patient and review ed and verified all information documented by the resident, and made modifications to such i nformation, when appropriate. 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 Splenomegaly, +++ gynecomas tia, +/- palmar erythema Does have mild INR coagulopathy, plt normal INR improved with Replete Vit K (thus while still likley occult cirrhosis, there are not currnet signs of decompensation Composite Mechanic on his 'near miss' and importance of good 'liver care' in future 9) Neuropathy, hereditary sensory (per patient w ++ 1st degree FH) Not noted in 'history' but with suggestion of pes cavus, and ++ family history it does r aise the qn of Yzpbirs-Tlhdd-Dtgwy Could have been contributor to osteo Composite Mechanic re: skin/foot care (a la DM) 10) Alcohol use disorder, mild, in sustained remission, abuse 11) Encounter for long-term (current) use of antibiotics SURROGATE DECISION MAKER Surrogate Decision Maker Primary Surrogate Decision Maker Josué An son [phone] TO HENRIQUEZ MD [address] agricultural equipment sales manager Division of [facility] Medicine Department of Medicine [facility] & [id number] [place] [address] Amber Wan MD - 1 11/15/2018 6:26 AM PST General Internal Medicine 3 Progress Note 24 Hour Events: NAEO Current Symptoms: Pain remains well controlled. Physical Examination: Last 24 hour min/max Temp: 36.7 C (98.1 F) Temp Min: 36.5 C (97.7 F) Max: 36.8 C (98.2 F) Pulse: 85 Pulse Min: 71 Max: 85 Resp: 16 Resp Min: 16 Max: 18 BP: 111/55 BP Min: 107/66 Max: 119/67 SpO2: 98 % SpO2 Min: 97 % Max: 98 % Body mass index is 27.94 kg/m. General: older male lying in bed with elevated left leg, pleasant, no distress HEENT: EOMI grossly Lungs: normal respiratory effort, CTAB, no wheezes CV: irregularly irregular, regular rate Abd: Prominent gynecomastia bilaterally, otherwise soft, nontender, nondistended. MSK: LLE wrapped. RLE with venous stasis dermatitis. Left arm PICC Neuro: AAOx3, no focal deficits Laboratory Interpretation: CBC with diff last 72 hours (or 3 results) - Refreshable Recent Labs 09/15/19 0419 WBC 8.96 HB 9.5* HCT 30.8* PLT 395 NEUTROPERC 64.4 LYMPHPERC 16.9* MONOPERC 8.4 BASOPERC 0.8 EOSPERC 8.7* Chemistries: Last 72 Hours (or 3 results) - Refreshable Recent Labs 09/15/19 0400 NA 139 K 4.3 CL 104 BICARB 31 BUN 22* EGFRAFRICAN >60 CR 1.11 GLU 122* CA 9.1 Micro: Tissue culture 09/04: MRSA, Enterococcus faecalis, Corynebacterium striatum Blood culture 09/03: NG 5 days EK/24- irregularly irregular, rate 96, Qtc 507 Imaging Interpretation: 09/08 tib/fib XR Interval left ankle hardware removal and antibiotic nail placement with decreased subcutane ous edema. No aggressive bone destruction identified. 09/09 CXR Left PICC with tip in the region of the superior cavoatrial junction. Small right pleural effusion and associated atelectasis with stable elevation of the right hemidiaphragm. Assessment and Plan 69 y.o. M with AF on digoxin, ETOH cirrhosis, ETOH Use D/O in remission, left ankle fusion 3 years ago presenting with exposed hardware, now s/p four-compartment fasciotomy, debrideme nt, removal of hardware, followed by repeat debridement and fasciotomy closure, on vancomyci n for MRSA SSTI/OM. # Infected L ankle fusion s/p hardware removal, fasciotomy/debridement x2 followed by closu re of fasciotomy # left heel ulcer S/p OR with ortho on 09/04, completed 4-compartment fasciotomy, hardware removed, I&D, plac ed antibiotic nail and wound vac; returned to OR 09/06 for repeat washout, additional debrid ement, and fasciotomy closure. Per ortho, skin quality poor, will have a prolonged course an d may fail to heal, in which case he would require a BKA. Deep wound cultures growing MRSA and E faecalis. Ortho and ID following - on vancomycin, goal trough 13-17, anticipated duration 6 weeks from last debridement (-10/17) - PICC placed 09/09 - Activity restrictions: NWB for 6 weeks, elevated, rooke boot in place while in bed - PT following - see ortho note 09/09 for details on dressing care, follow up recs - follow up: [facility] ID faculty with preference to schedule with next available clinic provid er in 3 weeks post hospital discharge. # post operative pain Pain is well controlled on current regimen. Patient alert and interactive today. -oxycodone 5 mg q 6 hours prn # persistent atrial fibrillation On home digoxin. Has been well rate controlled here although per ortho report was in afib w ith RVR intraoperatively on 09/04. CHADsVASc 3 (age, htn, DM); HAS BLED 4. 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 - held asa in s/o surgery, has been restarted - continue digoxin - goal resting rate <110 # bilateral lower extremity swelling Unclear etiology. Was seeing freight handler who is prescribing torsemide 10 mg daily for the swelling, however not noted to have diagnosis of heart failure, echo reviewed, normal EF. Po ssible diastolic dysfunction but besides trace LE swelling with chronic venous stasis change s, does not appear volume overloaded at this time. - Continue torsemide, restarted home KCl - Continue to monitor volume status, I&Os # Hx of etoh use disorder # reported etoh cirrhosis Unclear h/o cirrhosis. No records regarding any complications related to this. Quit drinkin g a few months ago. INR decreased to within normal range after Vit K challenge suggesting th at there was a nutritional component to his INR and that hepatic synthetic function is intac t. - continue home gabapentin 600mg tid Dispo: has used majority of his medicare SNF days, case management director working to determine whethe r paying out of pocket is an option vs investigate other dispo options. Code Status: Full Code Surrogate Decision Maker Primary Surrogate Decision Maker Josué An son [phone] This patient was staffed with Dr. To Henriquez, who agrees with the assessment and plan unle ss otherwise stated. Amber Niño Internal Medicine, PGY-1 Amber Wan MD - 09/14/2019 2:42 PM PST General Internal Medicine 3 Progress Note 24 Hour Events: NAEO Current Symptoms: Pain remains well controlled. Physical Examination: Last 24 hour min/max Temp: 36.7 C (98.1 F) Temp Min: 36.6 C (97.8 F) Max: 36.7 C (98.1 F) Pulse: 84 Pulse Min: 81 Max: 97 Resp: 16 Resp Min: 16 Max: 16 BP: 107/55 BP Min: 100/54 Max: 128/55 SpO2: 98 % SpO2 Min: 97 % Max: 100 % Body mass index is 27.94 kg/m. General: older male lying in bed with elevated left leg, pleasant, no distress HEENT: EOMI grossly Lungs: normal respiratory effort, right sided crackles, no wheezes CV: irregularly irregular, Abd: Prominent gynecomastia bilaterally, otherwise soft, nontender, nondistended. MSK: LLE wrapped. RLE with venous stasis dermatitis. Left arm PICC Neuro: AAOx3, no focal deficits Laboratory Interpretation: CBC with diff last 72 hours (or 3 results) - Refreshable Recent Labs 09/12/19 0532 WBC 6.74 HB 9.0* HCT 29.3* PLT 379 Chemistries: Last 72 Hours (or 3 results) - Refreshable Recent Labs 09/12/19 0531 NA 139 K 3.9 CL 105 BICARB 30 BUN 14 EGFRAFRICAN >60 CR 1.06 GLU 138* CA 8.7 Micro: Tissue culture 09/04: MRSA, Enterococcus faecalis, Corynebacterium striatum Blood culture 09/03: NG 5 days EK/24- irregularly irregular, rate 96, Qtc 507 Imaging Interpretation: 09/08 tib/fib XR Interval left ankle hardware removal and antibiotic nail placement with decreased subcutane ous edema. No aggressive bone destruction identified. 09/09 CXR Left PICC with tip in the region of the superior cavoatrial junction. Small right pleural effusion and associated atelectasis with stable elevation of the right hemidiaphragm. Assessment and Plan 69 y.o. M with AF on digoxin, ETOH cirrhosis, ETOH Use D/O in remission, left ankle fusion 3 years ago presenting with exposed hardware, now s/p four-compartment fasciotomy, debrideme nt, removal of hardware, followed by repeat debridement and fasciotomy closure, on vancomyci n for MRSA SSTI/OM. # Infected L ankle fusion s/p hardware removal, fasciotomy/debridement x2 followed by closu re of fasciotomy # left heel ulcer S/p OR with ortho on 09/04, completed 4-compartment fasciotomy, hardware removed, I&D, plac ed antibiotic nail and wound vac; returned to OR 09/06 for repeat washout, additional debrid ement, and fasciotomy closure. Per ortho, skin quality poor, will have a prolonged course an d may fail to heal, in which case he would require a BKA. Deep wound cultures growing MRSA and E faecalis. Ortho and ID following - on vancomycin, goal trough 13-17, anticipated duration 6 weeks from last debridement (-10/17) - PICC placed 09/09 - Activity restrictions: NWB for 6 weeks, elevated, rooke boot in place while in bed - PT following - see ortho note 09/09 for details on dressing care, follow up recs - follow up: [facility] ID faculty with preference to schedule with next available clinic provid er in 3 weeks post hospital discharge. # post operative pain Pain is well controlled on current regimen. Patient alert and interactive today. -oxycodone 5 mg q 6 hours prn # persistent atrial fibrillation On home digoxin. Has been well rate controlled here although per ortho report was in afib w ith RVR intraoperatively on 09/04. CHADsVASc 3 (age, htn, DM); HAS BLED 4. 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 - held asa in s/o surgery, has been restarted - continue digoxin - goal resting rate <110 # bilateral lower extremity swelling Unclear etiology. Was seeing freight handler who is prescribing torsemide 10 mg daily for the swelling, however not noted to have diagnosis of heart failure, echo reviewed, normal EF. Po ssible diastolic dysfunction but besides trace LE swelling with chronic venous stasis change s, does not appear volume overloaded at this time. - Continue torsemide, restarted home KCl - Continue to monitor volume status, I&Os # Hx of etoh use disorder # reported etoh cirrhosis Unclear h/o cirrhosis. No records regarding any complications related to this. Quit drinkin g a few months ago. - continue home gabapentin 600mg tid - PO challenge of Vit K 11/2 10mg to see if INR corrects Dispo: has used majority of his medicare SNF days, case management director working to determine whethe r paying out of pocket is an option vs investigate other dispo options. Code Status: Full Code Surrogate Decision Maker Primary Surrogate Decision Maker Josué An son [phone] This patient was staffed with Dr. oT Henriquez, who agrees with the assessment and plan unle ss otherwise stated. Amber Niño Internal Medicine, PGY-1 To Leach MD - 09/14 12:27 PM PST INPATIENT FACULTY PROGRESS NOTE - GM 2 Author; TO HENRIQUEZ MD Attending Physician: To Henriquez MD Hospital Day: 11 PCP: Rio Huerta MD PCP PCP Late Entry for September 14, 2019, when I completely evaluated, examined, and documented, th en 'pended' my note, & 'pasted' it below, in order to allow for the resident's autonomous co mpletion of their assessment Patient's Name: Monty An Today's Date: 09/15/2019 Leaner Attestation Statement A resident (Dr. Niño) assisted with documenting this service. I saw the patient and review ed and verified all information documented by the resident, and made modifications to such i nformation, when appropriate. Re-examined TODAY (no change in below exam) Cor: III/ cresc/desccresc systolic murmur radiating to R clavicle. 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 Could be anemia of chronic inflammation, but is suggestive if Fe defi ency Send smear, ferritin, Fe/TIBC 7) Murmur My suspicion is that it is not new, but newly documented Prior echo's (notable for a trileaflet aortic valve sclerosis, but no stenosis or insuff iciency: Aug 26, 2018: [facility]) 7) Essential hypertension 8) "Cirrhosis, Laennec's" (HCC) = per chart Pt reports no hx of decompensations Exam is c/w prior decompensations/metabolic derangements (?? Splenomegaly, +++ gynecomas tia, +/- palmar erythema Does have mild INR coagulopathy, plt normal Replete Vit K, re-assess INR to ddx nutritional vs hepatic dysfunction 9) Neuropathy, hereditary sensory (per patient w ++ 1st degree FH) Not noted in 'history' but with suggestion of pes cavus, and ++ family history it does r aise the qn of Gmujjab-Wtbcl-Nrgha Could have been contributor to osteo Composite Mechanic re: skin/foot care (a la DM) 10) Alcohol use disorder, mild, in sustained remission, abuse 11) Encounter for long-term (current) use of antibiotics SURROGATE DECISION MAKER Surrogate Decision Maker Primary Surrogate Decision Maker Josué An son [phone] TO HENRIQUEZ MD [address] agricultural equipment sales manager Division of Hospital Medicine Department of Medicine [address] [id number] o zuluaga MD - 09/13 12:33 PM PDT INPATIENT FACULTY PROGRESS NOTE - GM 2 Author; TO HENRIQUEZ MD Attending Physician: To Henriquez MD Hospital Day: 10 PCP: Rio Huerta MD PCP PCP Late Entry for September 13, 2019, when I completely evaluated, examined, and documented, th en 'pended' my note, & 'pasted' it below, in order to allow for the resident's autonomous co mpletion of their assessment Patient's Name: Monty An Today's Date: 09/13/2019 Leaner Attestation Statement A resident (Dr. Lockwood) assisted with documenting this service. I saw the patient and review ed and verified all information documented by the resident, and made modifications to such i nformation, when appropriate. (same today) Cor: III/ cresc/desccresc systolic murmur radiating to R clavicle (not pr eviously documented, but my suspicion is that it is not new). Suggest of a delayed peak, bu t pulses seem brisk with only a slight apical-radial delay, but no apical-carotid & no brach ial-radial delay Marked, overt, Juin III bilateral gynecomastia (same today) ++ abd bowel sounds; no overt palpable splenomegaly, but likely has inspira tory dullness @ Traube's space (Same today): Skin: +/- mild palmar erythema; no spider telangiectasia but does have linear chest wall telangiectasias & visible chest vessels (draining cephalad) Reduced LE sensation to ~ tibial tuberosity, absent achilles DTR's Mild Right pes cavus Active Issues: (really as per yesterday) Apparently he is prepared to pay out of pocket for SNF post medicare coverage end. 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 Splenomegaly, +++ gynecomas tia, +/- palmar erythema Does have mild INR coagulopathy, plt normal Replete Vit K, re-assess INR to ddx nutritional vs hepatic dysfunction 9) Neuropathy, hereditary sensory (per patient w ++ 1st degree FH) Not noted in 'history' but with suggestion of pes cavus, and ++ family history it does r aise the qn of Bdeotsz-Barny-Pcpnt Could have been contributor to osteo Composite Mechanic re: skin/foot care (a la DM) 10) Alcohol use disorder, mild, in sustained remission, abuse 11) Encounter for long-term (current) use of antibiotics SURROGATE DECISION MAKER Surrogate Decision Maker Primary Surrogate Decision Maker Josué An son [phone] TO HENRIQUEZ MD [address] agricultural equipment sales manager Division of Hospital Medicine Department of Medicine [id number] [place] [address] ateJohnathan victor MD - 12/2018 11:07 AM PDT General Internal Medicine 3 Progress Note 24 Hour Events: NAEO Current Symptoms: Pain remains well controlled, Wondering about dispo No CP, SOB. Physical Examination: Last 24 hour min/max Temp: 36.3 C (97.3 F) Temp Min: 36.3 C (97.3 F) Max: 36.8 C (98.2 F) Pulse: 64 Pulse Min: 64 Max: 101 Resp: 16 Resp Min: 16 Max: 18 BP: 110/52 BP Min: 108/65 Max: 134/58 SpO2: 96 % SpO2 Min: 94 % Max: 100 % Body mass index is 27.94 kg/m. General: older male on comode, pleasant, no distress HEENT: EOMI grossly Lungs: CTAB, no wheezes, rales, rhonchi CV: irregularly irregular, regular rate, III/ systolic murmur Abd: Prominent gynecomastia bilaterally, otherwise soft, nontender, nondistended. MSK: LLE wrapped. RLE with venous stasis dermatitis. Left arm PICC Neuro: AAOx3, no focal deficits Laboratory Interpretation: CBC with diff last 72 hours (or 3 results) - Refreshable Recent Labs 09/12/19 0532 WBC 6.74 HB 9.0* HCT 29.3* PLT 379 Chemistries: Last 72 Hours (or 3 results) - Refreshable Recent Labs 09/12/19 0531 NA 139 K 3.9 CL 105 BICARB 30 BUN 14 EGFRAFRICAN >60 CR 1.06 GLU 138* CA 8.7 Micro: Tissue culture 09/04: MRSA, Enterococcus faecalis, Corynebacterium striatum Blood culture 09/03: NG 5 days EK/24- irregularly irregular, rate 96, Qtc 507 Imaging Interpretation: 09/08 tib/fib XR Interval left ankle hardware removal and antibiotic nail placement with decreased subcutane ous edema. No aggressive bone destruction identified. 09/09 CXR Left PICC with tip in the region of the superior cavoatrial junction. Small right pleural effusion and associated atelectasis with stable elevation of the right hemidiaphragm. Assessment and Plan 69 y.o. M with AF on digoxin, ETOH cirrhosis, ETOH Use D/O in remission, left ankle fusion 3 years ago presenting with exposed hardware, now s/p four-compartment fasciotomy, debrideme nt, removal of hardware, followed by repeat debridement and fasciotomy closure, on vancomyci n for MRSA SSTI/OM. # Infected L ankle fusion s/p hardware removal, fasciotomy/debridement x2 followed by closu re of fasciotomy # left heel ulcer S/p OR with ortho on 09/04, completed 4-compartment fasciotomy, hardware removed, I&D, plac ed antibiotic nail and wound vac; returned to OR 09/06 for repeat washout, additional debrid ement, and fasciotomy closure. Per ortho, skin quality poor, will have a prolonged course an d may fail to heal, in which case he would require a BKA. Deep wound cultures growing MRSA and E faecalis. Ortho and ID following - on vancomycin, goal trough 13-17, anticipated duration 6 weeks from last debridement (-10/17) - PICC placed 09/09 - Activity restrictions: NWB for 6 weeks, elevated, rooke boot in place while in bed - PT following - see ortho note 09/09 for details on dressing care, follow up recs - follow up: [facility] ID faculty with preference to schedule with next available clinic provid er in 3 weeks post hospital discharge. # post operative pain Pain is well controlled on current regimen. Patient alert and interactive today. -oxycodone 5 mg q 6 hours prn # persistent atrial fibrillation On home digoxin. Has been well rate controlled here although per ortho report was in afib w ith RVR intraoperatively on 09/04. CHADsVASc 3 (age, htn, DM); HAS BLED 4. 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 - held asa in s/o surgery, has been restarted - continue digoxin - goal resting rate <110 # bilateral lower extremity swelling Unclear etiology. Was seeing freight handler who is prescribing torsemide 10 mg daily for the swelling, however not noted to have diagnosis of heart failure, echo reviewed, normal EF. Po ssible diastolic dysfunction but besides trace LE swelling with chronic venous stasis change s, does not appear volume overloaded at this time. - Continue torsemide, restarted home KCl - Continue to monitor volume status, I&Os # Hx of etoh use disorder # reported etoh cirrhosis Unclear h/o cirrhosis. No records regarding any complications related to this. Quit drinkin g a few months ago. - continue home gabapentin 600mg tid - PO challenge of Vit K 09/13 10mg to see if INR corrects Dispo: has used majority of his medicare SNF days, case management director working to determine whethe r paying out of pocket is an option vs investigate other dispo options. Code Status: Full Code Surrogate Decision Maker Primary Surrogate Decision Maker Josué An son [phone] This patient was staffed with Dr. oT Henriquez, who agrees with the assessment and plan unle ss otherwise stated. Johnathan Lockwood MD PGY - 3 | Internal Medicine | [id number] [facility] [place] To Mendez MD - 11/2018 8:01 AM PDT INPATIENT FACULTY PROGRESS NOTE - GM 2 Author; TO HENRIQUEZ MD Attending Physician: To Henriquez MD Hospital Day: 9 PCP: Rio Huerta MD PCP PCP Patient's Name: Monty An Today's Date: 09/12/2019 Leaner Attestation Statement A resident assisted with documenting this service. I saw the patient and reviewed and verif ied all information documented by the resident, and made modifications to such information, when appropriate. ROS: No BM x 3 days, no distention, 'constipation-sense', + flatus, no dyspnea, CP, abd karly n, oral pain. He has no awareness of "cirrhosis" or signs/symptoms of decompensation (I ask ed) OC/OP Clear JVP ~ 8 cm Cor: III/ cresc/desccresc systolic murmur radiating to R clavicle (not previously docu mented, but my suspicion is that it is not new). 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 Splenomegaly, +++ gynecomas tia, +/- palmar erythema Does have mild INR coagulopathy, plt normal Replete Vit K, re-assess INR to ddx nutritional vs hepatic dysfunction 9) Neuropathy, hereditary sensory (per patient w ++ 1st degree FH) Not noted in 'history' but with suggestion of pes cavus, and ++ family history it does r aise the qn of [id number] Could have been contributor to osteo Composite Mechanic re: skin/foot care (a la DM) 10) Alcohol use disorder, mild, in sustained remission, abuse 11) Encounter for long-term (current) use of antibiotics SURROGATE DECISION MAKER Surrogate Decision Maker Primary Surrogate Decision Maker Josué An son [phone] I spent ~40 minutes in the care of this patient. Greater than 50% of the time was spent co unseling and coordination of care, including visit x 3; extensive chart review (on ramos) TO HENRIQUEZ MD [address] agricultural equipment sales manager Division of Hospital Medicine Department of Medicine [address] [place] [address] auri Strickland MD - 09/12/2019 7:07 AM PDT General Internal Medicine 3 Progress Note 24 Hour Events: NAEO Current Symptoms: Pain remains well controlled, enjoys working with PT although finds it very challenging to bear weight on right leg only. Says last bowel movement was a couple days ago, does not feel bloated or constipated. Good appetite, no fevers, chills, nausea. Physical Examination: Last 24 hour min/max Temp: 36.2 C (97.2 F) Temp Min: 36.2 C (97.2 F) Max: 36.9 C (98.4 F) Pulse: 82 Pulse Min: 58 Max: 94 Resp: 16 Resp Min: 16 Max: 18 BP: 118/67 BP Min: 114/62 Max: 127/49 SpO2: 96 % SpO2 Min: 96 % Max: 100 % Body mass index is 27.94 kg/m. General: older male laying in bed, pleasant, no distress HEENT: PERRLA, EOMI, MMM Lungs: CTAB, no wheezes, rales, rhonchi CV: irregularly irregular, regular rate, III/ systolic murmur Abd: soft, nontender, nondistended, BS+. Gynecomastia bilaterally. MSK: LLE wrapped and elevated, RLE with venous stasis dermatitis and 1+ edema. Left arm PIC C line site without swelling, tenderness, or erythema. Bilateral muscle wasting of hands. Skin: few linear telangiectasias on chest. Neuro: AAOx3, no focal deficits, BLE with diminished sensation to just distal of knees Laboratory Interpretation: CBC with diff last 72 hours (or 3 results) - Refreshable Recent Labs 09/10/19 0605 09/12/19 0532 WBC 5.90 6.74 HB 8.9* 9.0* HCT 29.2* 29.3* PLT 388 379 Chemistries: Last 72 Hours (or 3 results) - Refreshable Recent Labs 09/10/19 0605 09/12/19 0531 NA 141 139 K 4.0 3.9 CL 106 105 BICARB 30 30 BUN 11 14 EGFRAFRICAN >60 >60 CR 0.97 1.06 GLU 98 138* CA 8.4* 8.7 Micro: Tissue culture 09/04: MRSA, Enterococcus faecalis, Corynebacterium striatum Blood culture 09/03: NG 5 days EK/24- irregularly irregular, rate 96, Qtc 507 Imaging Interpretation: 09/08 tib/fib XR Interval left ankle hardware removal and antibiotic nail placement with decreased subcutane ous edema. No aggressive bone destruction identified. 09/09 CXR Left PICC with tip in the region of the superior cavoatrial junction. Small right pleural effusion and associated atelectasis with stable elevation of the right hemidiaphragm. Assessment and Plan 69 y.o. M with a fib on digoxin, etoh cirrhosis, etoh use disorder in remission, left ankle fusion 3 years ago presenting with exposed hardware, now s/p four-compartment fasciotomy, d ebridement, removal of hardware, followed by repeat debridement and fasciotomy closure, on v ancomycin for MRSA SSTI. # Infected L ankle fusion s/p hardware removal, fasciotomy/debridement x2 followed by closu re of fasciotomy # left heel ulcer S/p OR with ortho on 09/04, completed 4-compartment fasciotomy, hardware removed, I&D, plac ed antibiotic nail and wound vac; returned to OR 09/06 for repeat washout, additional debrid ement, and fasciotomy closure. Per ortho, skin quality poor, will have a prolonged course an d may fail to heal, in which case he would require a BKA. Deep wound cultures growing MRSA and E faecalis. Ortho and ID following - on vancomycin 1500 daily, goal trough 13-17, anticipated duration 6 weeks from last debr idement (09/06-10/17) - PICC placed 09/09 - Activity restrictions: NWB for 6 weeks, elevated, rooke boot in place while in bed - PT following - see ortho note 09/09 for details on dressing care, follow up recs - follow up: [facility] ID faculty with preference to schedule with next available clinic provid er in 3 weeks post hospital discharge. # post operative pain Pain is well controlled on current regimen. Patient alert and interactive today. -oxycodone 5 mg q 6 hours prn # persistent atrial fibrillation On home digoxin. Has been well rate controlled here although per ortho report was in afib w ith RVR intraoperatively on 09/04. CHADsVASc 3 (age, htn, DM); HAS BLED 4. 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 - held asa in s/o surgery, has been restarted - continue digoxin - goal resting rate <110 # bilateral lower extremity swelling Unclear etiology. Was seeing freight handler who is prescribing torsemide 10 mg daily for the swelling, however not noted to have diagnosis of heart failure, echo reviewed, normal EF. Po ssible diastolic dysfunction but besides trace LE swelling with chronic venous stasis change s, does not appear volume overloaded at this time. - Continue torsemide, restarted home KCl - Continue to monitor volume status, I&Os # Hx of etoh use disorder # reported etoh cirrhosis Unclear h/o cirrhosis. No records regarding any complications related to this. Quit drinkin g a few months ago. - continue home gabapentin 600mg tid Dispo: has used 90/100 of his medicare SNF days, case management director working to determine whether paying out of pocket is an option vs investigate other dispo options. Code Status: Full Code Surrogate Decision Maker Primary Surrogate Decision Maker Josué An son [phone] This patient was staffed with Dr. To Henriquez, who agrees with the assessment and plan unle ss otherwise stated. Gauri Strickland MD Internal Medicine [id number] signed by To Henriquez MD at 09/12/2019 4:53 PM PDTSt Mary davis MD - 09/11/2019 2:03 PM PDT General Internal Medicine 3 Progress Note 24 Hour Events: PICC line placed without complications Current Symptoms: Has questions about returning to SNF. Overall feels well, good appetite, pain well controll ed. No fevers, chills. Physical Examination: Last 24 hour min/max Temp: 36.6 C (97.9 F) Temp Min: 36.4 C (97.5 F) Max: 36.6 C (97.9 F) Pulse: 91 Pulse Min: 53 Max: 91 Resp: 16 Resp Min: 12 Max: 18 BP: 116/66 BP Min: 116/66 Max: 130/68 SpO2: 98 % SpO2 Min: 98 % Max: 100 % Body mass index is 27.94 kg/m. General: pleasant, no distress HEENT: PERRLA, EOMI, MMM Lungs: CTAB, no wheezes, rales, rhonchi Heart: irregularly irregular, regular rate, no murmurs Abd: soft NTND MSK: LLE wrapped and elevated, RLE with venous stasis dermatitis and 1+ edema. Left arm PIC C line site without swelling, tenderness, or erythema. Neuro: AAOx3, no focal deficits, BLE with diminished sensation to knees Laboratory Interpretation: CBC with diff last 72 hours (or 3 results) Recent Labs 09/10/19 0605 WBC 5.90 HB 8.9* HCT 29.2* PLT 388 Chemistries: Last 72 Hours (or 3 results): Recent Labs 09/10/19 0605 NA 141 K 4.0 CL 106 BICARB 30 BUN 11 EGFRAFRICAN >60 CR 0.97 GLU 98 CA 8.4* Micro: Tissue culture 09/04: MRSA, Enterococcus faecalis, Corynebacterium striatum Blood culture 09/03: NG 5 days EKG: irregularly irregular, rate 96, Qtc 507 Imaging Interpretation: 09/08 tib/fib XR Interval left ankle hardware removal and antibiotic nail placement with decreased subcutane ous edema. No aggressive bone destruction identified. 09/09 CXR Left PICC with tip in the region of the superior cavoatrial junction. Small right pleural effusion and associated atelectasis with stable elevation of the right hemidiaphragm. Assessment and Plan 69 y.o. M with a fib on digoxin, etoh cirrhosis, etoh use disorder in remission, left ankle fusion 3 years ago presenting with exposed hardware, now s/p four-compartment fasciotomy, d ebridement, removal of hardware, followed by repeat debridement and fasciotomy closure. # Infected L ankle fusion s/p hardware removal, fasciotomy/debridement x2 followed by closu re of fasciotomy # left heel ulcer S/p OR with ortho on 09/04, completed 4-compartment fasciotomy, hardware removed, I&D, plac ed antibiotic nail and wound vac; returned to OR 09/06 for repeat washout, additional debrid ement, and fasciotomy closure. Per ortho, skin quality poor, will have a prolonged course an d may fail to heal, in which case he would require a BKA. Deep wound cultures growing MRSA and E faecalis. Ortho and ID following - on vancomycin 1500 daily, goal trough 13-17, anticipated duration 6 weeks from last debr idement (09/06-10/17) - PICC placed 09/09 - Activity restrictions: NWB for 6 weeks, elevated, rooke boot in place while in bed - PT following - see ortho note 09/09 for details on dressing care, follow up recs - follow up: [facility] ID faculty with preference to schedule with next available clinic provid er in 3 weeks post hospital discharge. # post operative pain Pain is well controlled on current regimen. Patient alert and interactive today. -oxycodone 5 mg q 6 hours prn # persistent atrial fibrillation On home digoxin. Has been well rate controlled here although per ortho report was in afib w ith RVR intraoperatively on 09/04. CHADsVASc 3 (age, htn, DM); HAS BLED 4. 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 - held asa in s/o surgery, has been restarted - continue digoxin - goal resting rate <110 # bilateral lower extremity swelling Unclear etiology. Was seeing freight handler who is prescribing torsemide 10 mg daily for the swelling, however not noted to have diagnosis of heart failure, echo reviewed, normal EF. Po ssible diastolic dysfunction but besides trace LE swelling with chronic venous stasis change s, does not appear volume overloaded at this time. - Continue torsemide - Continue to monitor volume status, I&Os # Hx of etoh use disorder # reported etoh cirrhosis Unclear h/o cirrhosis. No records regarding any complications related to this. Quit drinkin g a few months ago. - continue home gabapentin 600mg tid Dispo: has used 90/100 of his medicare SNF days, case management director working to determine whether paying out of pocket is an option vs investigate other dispo options. Code Status: Full Code Surrogate Decision Maker Primary Surrogate Decision Maker Josué An son [phone] This patient was staffed with Dr. Huerta, who agrees with the assessment and plan unless otherwise stated. Mary Beltran MD PGY-3, Internal Medicine A M PDT Associated attestation - Tiffanie Huerta MD - 09/12/2019 10:41 AM PDTGM attending I personally interviewed the patient, performed the cespedes elements of the physical examinatio n, and personally formulated the assessment and plan with the resident. See resident Dr. Hope's note for details. "I am doing well and don't mind being here" He is asking to talk with CM about information on how much it would cost to stay at the [facility] and pay out of pocket after his 10 days are used up. 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 No abdominal pain, appetite good, had a bowel movement yesterday. Has questions about returning to SNF since he only has 10 of his 100 days left through medicare, eager to contin ue conversation with his case management director about discharge planning. Physical Examination: Last 24 hour min/max Temp: 36.4 C (97.5 F) Temp Min: 36.3 C (97.3 F) Max: 36.6 C (97.9 F) Pulse: 74 Pulse Min: 58 Max: 83 Resp: 18 Resp Min: 18 Max: 18 BP: 125/58 BP Min: 116/53 Max: 129/60 SpO2: 97 % SpO2 Min: 97 % Max: 100 % Body mass index is 27.94 kg/m. General: pleasant, no distress HEENT: PERRLA, EOMI, MMM Lungs: CTAB, no wheezes, rales, rhonchi Heart: irregularly irregular, regular rate, no murmurs Abd: soft NTND MSK: LLE wrapped and elevated, RLE with venous stasis dermatitis and 1+ edema. Left arm PIC C line site without swelling, tenderness, or erythema. Neuro: AAOx3, no focal deficits, BLE with diminished sensation to knees Laboratory Interpretation: -CBC: Hgb 8.9 (stable), WBC 5.9, plt 388 -BMP wnl 09/09- CRP 70.8, ESR 78 Micro: Tissue culture 09/04: MRSA, Enterococcus faecalis, Corynebacterium striatum Blood culture 09/03: NG 5 days EKG: irregularly irregular, rate 96, Qtc 507 Imaging Interpretation: 09/08 tib/fib XR Interval left ankle hardware removal and antibiotic nail placement with decreased subcutane ous edema. No aggressive bone destruction identified. 09/09 CXR Left PICC with tip in the region of the superior cavoatrial junction. Small right pleural effusion and associated atelectasis with stable elevation of the right hemidiaphragm. Assessment and Plan 69 y.o. M with a fib on digoxin, etoh cirrhosis, etoh use disorder in remission, left ankle fusion 3 years ago presenting with exposed hardware, now s/p four-compartment fasciotomy, d ebridement, removal of hardware, followed by repeat debridement and fasciotomy closure. # Infected L ankle fusion s/p hardware removal, fasciotomy/debridement x2 followed by closu re of fasciotomy # left heel ulcer S/p OR with ortho on 09/04, completed 4-compartment fasciotomy, hardware removed, I&D, plac ed antibiotic nail and wound vac; returned to OR 09/06 for repeat washout, additional debrid ement, and fasciotomy closure. Per ortho, skin quality poor, will have a prolonged course an d may fail to heal, in which case he would require a BKA. Deep wound cultures growing MRSA and E faecalis. Ortho and ID following - on vancomycin 1500 daily, goal trough 13-17, anticipated duration 6 weeks from last debr idement (09/06-10/17) - PICC placed 09/09 - Activity restrictions: NWB for 6 weeks, elevated, rooke boot in place while in bed - PT following - see ortho note 09/09 for details on dressing care, follow up recs - follow up: [facility] ID faculty with preference to schedule with next available clinic provid er in 3 weeks post hospital discharge. # post operative pain Pain is well controlled on current regimen. Patient alert and interactive today. -oxycodone 5 mg q 6 hours prn # persistent atrial fibrillation On home digoxin. Has been well rate controlled here although per ortho report was in afib w ith RVR intraoperatively on 09/04. CHADsVASc 3 (age, htn, DM); HAS BLED 4. 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 - held asa in s/o surgery, has been restarted - continue digoxin - goal resting rate <110 # bilateral lower extremity swelling Unclear etiology. Was seeing freight handler who is prescribing torsemide 10 mg daily for the swelling, however not noted to have diagnosis of heart failure, echo reviewed, normal EF. Po ssible diastolic dysfunction but besides trace LE swelling with chronic venous stasis change s, does not appear volume overloaded at this time. - Restart home torsemide today - Continue to monitor volume status, I&Os # Hx of etoh use disorder # reported etoh cirrhosis Unclear h/o cirrhosis. No records regarding any complications related to this. Quit drinkin g a few months ago. - continue home gabapentin 600mg tid Dispo: has used 90/100 of his medicare SNF days, case management director working to determine whether paying out of pocket is an option vs investigate other dispo options. Code Status: Full Code Surrogate Decision Maker Primary Surrogate Decision Maker Josué An son [phone] This patient was staffed with Dr. Huerta, who agrees with the assessment and plan unless otherwise stated. Gauri Strickland MD Internal Medicine [id number] signed by Tiffanie Huerta MD at 09/10/2019 4:49 PM PDT Associated attestation - Tiffanie Huerta MD - 09/10/2019 4:49 PM PDT GM attending I personally interviewed the patient, performed the cespedes elements of the physical examinatio n, and personally formulated the assessment and plan with the resident. See resident Dr. Robert vázquez's note for details. " I am feeling better" " I would like to know how much a day at rehab costs" He is looking forward to eating ice cream. Slept well Last Vitals: BP 121/59 (BP Location: Right upper arm, Patient Position: Lying on back) | P ulse 82 | Temp 36.6 C (97.9 F) (Oral) | Resp 16 | Ht 1.829 m (6') | Wt 93.4 kg (206 lb) Comment: not sure how the bed was zeroed | SpO2 98% | BMI 27.94 kg/m | BSA 2.18 m 24 Hour Vital Min/Max: Systolic (24hrs), Av , Min:116 , Max:145 Diastolic (24hrs), Av, Min:47, Max:64 Pulse Min: 47 Max: 83 Temp Min: 36.3 C (97.3 F) Max: 36.6 C (97.9 F) Resp Min: 16 Max: 18 SpO2 Min: 97 % Max: 100 % Intake/Output Summary (Last 24 hours) at 09/10/2019 1643 Last data filed at 09/10/2019 1637 Gross per 24 hour Intake 1790 ml Output 3080 ml Net -1290 ml PE as described Right LE in boot CBC with diff last 72 hours (or 3 results) Recent Labs 09/08/1945109/10/19 0605 WBC 5.51 5.90 HB 8.8* 8.9* HCT 29.3* 29.2* PLT 306 388 Chemistries: Last 72 Hours (or 3 results): Recent Labs 09/08/1945109/10/19 0605 NA 138 141 K 3.9 4.0 CL 108 106 BICARB 24 30 BUN 9 11 EGFRAFRICAN >60 >60 CR 0.80 0.97 GLU 95 98 CA 8.0* 8.4* 69 y.o. male with remote alcohol hx a fib on digoxin, etoh cirrhosis, with a complec ankl e issue, left ankle fusion 3 years ago presenting with exposed hardware, now s/p four-compar tment fasciotomy, debridement, removal of hardware, on IV vanc with s/p debridement and fasc iotomy closure. 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 - Care management to see patient about cost of rehab - cont IV abx, will need MRSA isolation - PT / OT eval and treat Rest as per team note.Gauri Strickland MD - 09/09/2019 3:37 PM PDTFormatting of this no te might be different from the original. General Internal Medicine 3 Progress Note 24 Hour Events: No acute events overnight Current Symptoms: Mr An feels well this morning, pain control has not been an issue. Enjoys working [facility] physical therapy. Denies dyspnea, nausea, abdominal pain, constipation. Fine with getting PICC line and understands need for skilled nursing IV antibiotics. Physical Examination: Last 24 hour min/max Temp: 36.5 C (97.7 F) Temp Min: 36.3 C (97.3 F) Max: 36.6 C (97.9 F) Pulse: 58 Pulse Min: 58 Max: 79 Resp: 18 Resp Min: 18 Max: 18 BP: 129/60 BP Min: 121/70 Max: 129/60 SpO2: 100 % SpO2 Min: 96 % Max: 100 % Body mass index is 27.94 kg/m. General: pleasant, no distress HEENT: PERRLA, EOMI, MMM Lungs: CTAB, no wheezes, rales, rhonchi Heart: irregularly irregular, no murmurs Abd: soft NTND MSK: LLE wrapped and elevated, RLE with venous stasis dermatitis and 1+ edema Neuro: AAO, no focal deficits, sensations of RLE diminished Laboratory Interpretation: No new CBC or BMP today, prior day's labs -CBC: Hgb 8.8 (stable), WBC 5.51, plt 306 -BMP wnl 09/09- CRP 70.8, ESR 78 Micro: Tissue culture 09/04: MRSA, Enterococcus faecalis, Corynebacterium striatum Blood culture 09/03: NG 5 days EKG: irregularly irregular, rate 96, Qtc 507 Imaging Interpretation: 09/08 tib/fib XR Interval left ankle hardware removal and antibiotic nail placement with decreased subcutane ous edema. No aggressive bone destruction identified. Assessment and Plan 69 y.o. M with a fib on digoxin, etoh cirrhosis, etoh use disorder in remission, left ankle fusion 3 years ago presenting with exposed hardware, now s/p four-compartment fasciotomy, d ebridement, removal of hardware, followed by repeat debridement and fasciotomy closure. # Infected L ankle fusion s/p hardware removal, fasciotomy/debridement x2 followed by closu re of fasciotomy # left heel ulcer S/p OR with ortho on 09/04, completed 4-compartment fasciotomy, hardware removed, I&D, plac ed antibiotic nail and wound vac; returned to OR 09/06 for repeat washout, additional debrid ement, and fasciotomy closure. Per ortho, skin quality poor, will have a prolonged course an d may fail to heal, in which case he would require a BKA. Deep wound cultures growing MRSA and E faecalis. Ortho and ID following - on vancomycin 1500 daily, goal trough 13-17, anticipated duration 6 weeks from last debr idement (09/06-10/17) - PICC placement today - Activity restrictions: NWB for 6 weeks, elevated, rooke boot in place while in bed - PT following - see ortho note 09/09 for details on dressing care, follow up recs - follow up: [facility] ID faculty with preference to schedule with next available clinic provid er in 3 weeks post hospital discharge. # post operative pain Pain is well controlled on current regimen. Patient alert and interactive today. -oxycodone 5 mg q 6 hours prn # persistent atrial fibrillation On home digoxin. Has been well rate controlled here although per ortho report was in afib w ith RVR intraoperatively on 09/04. CHADsVASc 3 (age, htn, DM); HAS BLED 4. 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 - held asa in s/o surgery, has been restarted - continue digoxin - goal resting rate <110 # bilateral lower extremity swelling Unclear etiology. Was seeing freight handler who is prescribing torsemide 10 mg daily for the swelling, however not noted to have diagnosis of heart failure, echo reviewed, normal EF. Po ssible diastolic dysfunction but besides trace LE swelling with chronic venous stasis change s, does not appear volume overloaded at this time. - Holding torsemide, consider restarting prior to DC - Continue to monitor volume status, I&Os # Hx of etoh use disorder # reported etoh cirrhosis Unclear h/o cirrhosis. No records regarding any complications related to this. Quit drinkin g a few months ago. - continue home gabapentin 600mg tid Code Status: Full Code Surrogate Decision Maker Primary Surrogate Decision Maker Josué An son [phone] This patient was staffed with Dr. Huerta, who agrees with the assessment and plan unless otherwise stated. Gauri Strickland MD Internal Medicine [id number] signed by Tiffanie Huerta MD at 09/10/2019 5:42 AM PDT Associated attestation - Tiffanie Huerta MD - 09/10/2019 5:42 AM PDTGM attending I personally interviewed the patient, performed the cespedes elements of the physical examinatio n, and personally formulated the assessment and plan with the resident. See resident note f or details. No new complaint. 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 Orthopaedic Surgery Progress Note Date: 09/09/2019 Hospital Day: 6 Orthopaedic Attending: Cory Carmen MD Diagnosis(es): 1. Infected hardware, right ankle. 2. Failure of fusion, right ankle. 3. Diffuse soft tissue swelling concerning for deep infection, left pat f. Orthopaedic Procedure(s) & Date(s): 09/04/2019 1. Four-compartment fasciotomy, left leg, with incision, irrigation and debridement , via 2 incisions. 2. Removal of hardware deep implant with curettage of the calcaneus and talus. 3. Incision, irrigation and debridement of a left ankle incomplete fusion. 4. Ankle fusion spanning antibiotic nail through the hindfoot. 5. Placement of an external tissue clerk guide, area other than breast. 6. Placement of a non-prefabricated negative pressure wound therapy device, area gr eater than 50 sq cm. 09/06/2019 1. Irrigation and excisional debridement fasciotomy sites left ankle, medial site 6 centime ters by 32 centimeters. Lateral site 3 centimeters by 28 centimeters. 2. Irrigation and excisional debridement plantar foot wound 2 centimeters by 4 centimeters 3. Closure fasciotomy site x2 Assessment & Plan: Monty An is a 69 y.o.M with the orthopaedic diagnoses and procedur es listed above. # Infected L ankle fusion s/p DILAN & Antibiotic Nail placement, fasciotomy/I&D x2 followed b y closure # left heel ulcer - OR with ortho on 09/04, completed 4-compartment fasciotomy, hardware removed, I&D, placed antibiotic nail and wound vac; - returned to OR 09/06 for repeat washout, additional debridement, and fasciotomy closure. -Skin quality poor, will have a prolonged course and may fail to heal, in which case he wo uld require a BKA after antibiotic course - Deep wound cultures growing Staph aureus and E faecalis. Ortho following. - Plan to leave abx nail in definitively for now - continue vancomycin - ID rec 6 wks IV Vanc - Peak & Trough pending - 1g q12hrs - Activity restrictions: NWB, elevated, rooke boot in place while in bed - Wound Care: stop WTD dressing changes, - PT following - Remainder of Care per primary team - Ok for discharge from Orthopedics perspective, once PICC line and Abx finalized - Ortho will follow peripherally while he remains inpatient Care Protocol Items: 1. Activity: 1. Weight bearing: non-weight bearing, left lower extremity 2. ROM: Elevate leg as much as tolerated, keep LLE in posterior foot splint 2. VTE prophylaxis: high risk, lovenox SC 40mg daily or by weight, sequential compression d evices 3. Pain management: oral analgesia 4. Antibiotics: vancomycin, until further notice, ID consult for skilled nursing plan 5. Special Concerns: case managment for discharge planning, likely discharge to SNF in [facility] Wound Care consulted 6. Dressings/Drains: DRESSING CARE He will need daily wet-to-dry dressing changes on his posterior heel on the affected extrem ity. Leave dressing in place until your follow up appointment, or at a minimum, 7-10 days after leaving the hospital. After that time, you may change your dressing daily and check the inc ision for any signs of infection, such as: redness, swelling, unusual pain, or increasing d rainage. Your incision should be kept clean and dry. If you have sutures or giselle, do not get your wound wet for 5-7 days after your operation: either sponge bathe or cover the inci jerrod with a waterproof bandage. You may shower, but please do not scrub at the dressing/chance gical site. Please do not bath or soak the dressing. Keep your incision covered with a yifan ssing until there is no discharge on bandage. Do not soak in a bath tub or hot tub until your wound is completely healed, this usually ta kes 3-4 weeks Do not shave over the incision. Do not use lotions, powders, oils, or ointmen ts on your incision. 7. Dispo/Discharge: Continue acute inpatient care, ok to discharge from ortho perspective o mde OPAT plan and dispo arrangements have been made. 8. Follow-up: We would be happy to see Mr An in clinic for wound check and suture re moval but understand this may require a long transport. OK for SNF to remove sutures in 3we eks then follow up 6weeks with Dr Carmen. Please call the clinic to make a follow up appoint ment ORTHO TRAUMA & FRACTURE, . Subjective: Feeling ok, denies pain though endorses baseline neuropathy that likely helps reduce sensat ion. Very talkative, per baseline today Objective: 24 hour Vitals: Temp Av.5 C (97.7 F) Min: 36.3 C (97.3 F) Max: 36.6 C (97.9 F) Systolic (24hrs), Av , Min:111 , Max:129 Diastolic (24hrs), Av, Min:50, Max:70 Pulse Av.6 Min: 58 Max: 111 SpO2 Av.6 % Min: 96 % Max: 100 % Intake/Output Summary (Last 24 hours) at 09/09/2019 1108 Last data filed at 09/09/2019 0800 Gross per 24 hour Intake 1380 ml Output 1200 ml Net 180 ml Exam: General: appropriate, oriented LEFT LOWER EXTREMITY: Inspection: Acewrapped foot to knee, no strikethrough in Posterior foot splint elevated on blue ramp, PSF removed and rooke boot placed Motor: weakly fires EHL, fires FHL, Sensory: Reduced sensation to light touch, medial, lateral, dorsal, 1st dorsal web space , plantar ( reduced at baseline due to Neuropathy ) Vascular: digits warm & well perfused, capillary refill < 2 seconds Aidan Antonio MD Orthopedic Surgery [id number] 11:15 AM Cory Shaikh MD - 09/09/2019 9:04 AM PDTOrthopaedics Attending Note Good apin control. Hoping to get closer to home soon. BP 129/60 (BP Location: Right upper arm, Patient Position: Lying on back) | Pulse 58 | Te mp 36.5 C (97.7 F) (Oral) | Resp 18 | Ht 1.829 m (6') | Wt 93.4 kg (206 lb) Comment: not sure how the bed was zeroed | SpO2 100% | BMI 27.94 kg/m | BSA 2.18 m 24 Hour Vital Min/Max: Systolic (24hrs), Av , Min:110 , Max:129 Diastolic (24hrs), Av, Min:50, Max:70 Pu lse Av.2 Min: 58 Max: 111 Temp Av.6 C (97.8 F) Min: 36.3 C (97.3 F) Max: 36.6 C (97.9 F) Talkative. Eating regular diet tolearting antibiotics. Left leg dressign changed. Most of the incisions are dry and intact. The midportion of the medial wound has some fibrinous debrids and several other sptos have very slight drainage. Overall healing. Minimal erythema. Swelling is resovling. The dorsal foot wound is 5mm op en but still healing. Posterior heel pressure wound is clean, no erythema. Not yet granula ting. The ankle has basically fixed ROM. Stable. Wound care has recommended a borded foam dressing. We can get this started. Tibial xrays with antibitoiic dante look stable. Assessment and Plan: left ankle limb threatening infection. 1. Appreciate ID plan. Will work in that direction. 2. Will adjust wound care. Stop wet to dry dressing changes. I'm worried that a misshape n gauze sponge may worsen the pressure on the posteriro heel. The pressure sore on the back of the heel can go to bortdered foam dressing as recommended by wound care team. Remainder of leg is just wrppaed with dry kerlix and homer wrap. 3. Stop using black PFS splint. I'm concnered it will cause a pressure sore. The ankle i s nearly fused and very stable. 4. Start using a rooke pressure boot. Wear when in bed. Take off when out of bed. 5. nonweight bearing left leg for planned 6 weeks (same time frame as antibiotics I have seen the patient and performed and independent history and physical exam. I discuss ed the diagnosis, imaging studies, treatment plan and prognosis with the patient and residen t. I have reviewed and edited the above note and agree with the plan as listed. Cory Carmen MD [facility] [address] [place] [address] Cory Carmen Gauri Walsh MD - 09/08/2019 7:27 AM PDT General Internal Medicine 3 Progress Note 24 Hour Events: Pharmacy completed med rec via SNF MAR records per pharm: "Torsemide, potassium chloride, A SA, MVI, vitamin B12, and thiamine were added to [employer] medication list. Of note, patient has n ot been taking torsemide regularly per SNF but did receive KCl supplement on 09/02 prior to admission. Loperamide was removed from home med list." Current Symptoms: Pain remains well controlled, says that the feeling in his legs was never very good. Denies dyspnea, chest or abdominal pain. Understands that he will be nonweightbearing on left leg for the foreseeable future. Physical Examination: Last 24 hour min/max Temp: 36.6 C (97.9 F) Temp Min: 36.4 C (97.5 F) Max: 37 C (98.6 F) Pulse: 65 Pulse Min: 63 Max: 104 Resp: 18 Resp Min: 16 Max: 18 BP: 110/43 BP Min: 101/41 Max: 127/54 SpO2: 96 % SpO2 Min: 95 % Max: 98 % Body mass index is 27.94 kg/m. General: pleasant, no distress HEENT: PERRLA, EOMI, MMM Lungs: CTAB, no wheezes, rales, rhonchi Heart: irregularly irregular, no murmurs Abd: soft NTND MSK: LLE wrapped and elevated, RLE with venous stasis dermatitis and 1+ edema Neuro: AAO, no focal deficits, sensations of RLE diminished Laboratory Interpretation: CBC: Hgb 8.8 (stable), WBC 5.51, plt 306 BMP wnl Micro: Tissue culture 09/04: MSSA, Enterococcus faecalis Blood culture 09/03: NGTD EKG: irregularly irregular, rate 96, Qtc 507 Imaging Interpretation: 09/03 tib/fib and ankle XR Extensive expansile lucency is noted throughout the musculature of the calf consistent with gas throughout the soft tissues indicating necrotizing fasciitis. Extensive subcutaneous fa t edema is also noted, in keeping with a history of cellulitis. Normal alignment seen at the knees. Postsurgical and likely posttraumatic deformity of the ankle is noted with fusion ac ross the subtalar and tibiotalar joint spaces. There is loosening around both distal screws concerning for motion. A deep soft tissue ulcer is present over the calcaneus. Assessment and Plan 69 y.o. M with a fib on digoxin, etoh cirrhosis, etoh use disorder in remission, left ankle fusion 3 years ago presenting with exposed hardware, now s/p four-compartment fasciotomy, d ebridement, removal of hardware, followed by repeat debridement and fasciotomy closure. # Infected L ankle fusion s/p hardware removal, fasciotomy/debridement x2 followed by closu re of fasciotomy # left heel ulcer S/p OR with ortho on 09/04, completed 4-compartment fasciotomy, hardware removed, I&D, plac ed antibiotic nail and wound vac; returned to OR 09/06 for repeat washout, additional debrid ement, and fasciotomy closure. Per ortho, skin quality poor, will have a prolonged course an d may fail to heal, in which case he would require a BKA. Deep wound cultures growing Staph aureus and E faecalis. Ortho following. - on vancomycin - ID consult to determine IV vs PO abx and duration - Activity restrictions: NWB, elevated, posterior black foot splint - PT following - wound consult ordered for left heel ulcer - plan from ortho is to finish abx, see how wound heals - eventually will need to return to the OR in the future for abx implant removal - see ortho note 09/08 for details on dressing care, follow up recs # post operative pain Pain is well controlled on current regimen. Patient alert and interactive today. -oxycodone 5 mg q 6 hours prn -discontinue dilaudid IV PRN # persistent atrial fibrillation On home digoxin. Has been well rate controlled here although per ortho report was in afib w ith RVR intraoperatively on 09/04. CHADsVASc 3 (age, htn, DM); HAS BLED 4. 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 - held asa in s/o surgery, has been restarted - continue digoxin - goal resting rate <110 # bilateral lower extremity swelling Unclear etiology. Was seeing freight handler who is prescribing torsemide 10 mg daily for the swelling, however not noted to have diagnosis of heart failure, echo reviewed, normal EF. Po ssible diastolic dysfunction but besides trace LE swelling with chronic venous stasis change s, does not appear volume overloaded at this time. - Holding torsemide, consider restarting tomorrow - Continue to monitor volume status, I&Os # Hx of etoh use disorder # reported etoh cirrhosis Unclear h/o cirrhosis. No records regarding any complications related to this. Quit drinkin g a few months ago. - continue home gabapentin 600mg tid Code Status: Full Code Surrogate Decision Maker Primary Surrogate Decision Maker Josué An son [phone] This patient was staffed with Dr. Huerta, who agrees with the assessment and plan unless otherwise stated. Gauri Strickland MD Internal Medicine [id number] signed by Tiffanie Huerta MD at 09/08/2019 3:03 PM PDT Associated attestation - Tiffanie Huerta MD - 09/08/2019 3:03 PM PDTGM attending I personally interviewed the patient, performed the cespedes elements of the physical examinatio n, and personally formulated the assessment and plan with the resident. See resident Dr. Robert vázquez's note for details. 69 y.o. M with a fib on digoxin, etoh cirrhosis, etoh use disorder in remission, has had re peated debridement and fasciotomy closure. With orthopedics. 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 - on vancomycin - ID consult for assistance with route and duration while he continues to have osteo / jameson rce control. - while not currently drinking he is at risk for relapse with all of the issues present. - he has been comfortable at [place] assisted [facility] with aggressive PT in the past [facility] is close to [place], his home. Deepthi Collazo AGACNP - 09/08/2019 6:49 AM PDTFormatting of this note might be differe nt from the original. Orthopaedic Surgery Progress Note Date: 09/08/2019 Hospital Day: 5 Orthopaedic Attending: Cory Carmen MD Diagnosis(es): 1. Infected hardware, right ankle. 2. Failure of fusion, right ankle. 3. Diffuse soft tissue swelling concerning for deep infection, left pat f. Orthopaedic Procedure(s) & Date(s): 09/04/2019 1. Four-compartment fasciotomy, left leg, with incision, irrigation and debridement , via 2 incisions. 2. Removal of hardware deep implant with curettage of the calcaneus and talus. 3. Incision, irrigation and debridement of a left ankle incomplete fusion. 4. Ankle fusion spanning antibiotic nail through the hindfoot. 5. Placement of an external tissue clerk guide, area other than breast. 6. Placement of a non-prefabricated negative pressure wound therapy device, area gr eater than 50 sq cm. 09/06/2019 1. Irrigation and excisional debridement fasciotomy sites left ankle, medial site 6 centime ters by 32 centimeters. Lateral site 3 centimeters by 28 centimeters. 2. Irrigation and excisional debridement plantar foot wound 2 centimeters by 4 centimeters 3. Closure fasciotomy site x2 Assessment & Plan: Monty An is a 69 y.o.M with the orthopaedic diagnoses and procedur es listed above. # Infected L ankle fusion s/p hardware removal, fasciotomy/debridement x2 followed by closu re of fasciotomy # left heel ulcer S/p OR with ortho on 09/04, completed 4-compartment fasciotomy, hardware removed, I&D, plac ed antibiotic nail and wound vac; returned to OR 09/06 for repeat washout, additional debrid ement, and fasciotomy closure. Skin quality poor, will have a prolonged course and may fail to heal, in which case he would require a BKA after antibiotic course Deep wound cultures growing Staph aureus and E faecalis. Ortho following. - continue vancomycin - ID consult - Activity restrictions: NWB, elevated, posterior black foot splint - PT following - wound consult ordered for left heel ulcer - Eventually will need to return to the OR in the future for abx implant remova l vs BKA Care Protocol Items: 1. Activity: 1. Weight bearing: non-weight bearing, left lower extremity 2. ROM: Elevate leg as much as tolerated, keep LLE in posterior foot splint 2. VTE prophylaxis: high risk, lovenox SC 40mg daily or by weight, sequential compression d evices 3. Pain management: oral analgesia 4. Antibiotics: vancomycin, until further notice, ID consult for termite control technician plan 5. Special Concerns: case managment for discharge planning, likely discharge to SNF in [facility] Wound Care consulted 6. Dressings/Drains: DRESSING CARE He will need daily wet-to-dry dressing changes on his posterior heel on the affected extrem ity. Leave dressing in place until your follow up appointment, or at a minimum, 7-10 days after leaving the hospital. After that time, you may change your dressing daily and check the inc ision for any signs of infection, such as: redness, swelling, unusual pain, or increasing d rainage. Your incision should be kept clean and dry. If you have sutures or giselle, do not get your wound wet for 5-7 days after your operation: either sponge bathe or cover the inci jerrod with a waterproof bandage. You may shower, but please do not scrub at the dressing/chance gical site. Please do not bath or soak the dressing. Keep your incision covered with a yifan ssing until there is no discharge on bandage. Do not soak in a bath tub or hot tub until your wound is completely healed, this usually ta kes 3-4 weeks Do not shave over the incision. Do not use lotions, powders, oils, or ointmen ts on your incision. 7. Dispo/Discharge: Continue acute inpatient care, ok to discharge from ortho perspective o mde OPAT plan and dispo arrangements have been made. 8. Follow-up: We would be happy to see Mr An in clinic for wound check and suture re moval but understand this may require a long transport. OK for SNF to remove sutures in 3we eks then follow up 6weeks with Dr Carmen. Please call the clinic to make a follow up appoint ment ORTHO TRAUMA & FRACTURE, . Subjective: Feeling ok, denies pain though endorses baseline neuropathy that likely helps reduce sensat ion. Objective: 24 hour Vitals: Temp Av.6 C (97.9 F) Min: 36.4 C (97.5 F) Max: 37 C (98.6 F) Systolic (24hrs), Av , Min:101 , Max:127 Diastolic (24hrs), Av, Min:41, Max:76 Pulse Av.7 Min: 63 Max: 104 SpO2 Av.6 % Min: 95 % Max: 98 % Intake/Output Summary (Last 24 hours) at 09/08/2019 0656 Last data filed at 09/08/2019 0645 Gross per 24 hour Intake 1268 ml Output 3665 ml Net -2397 ml Exam: General: appropriate, oriented LEFT LOWER EXTREMITY: Inspection: Acewrapped foot to knee, no strikethrough in Posterior foot splint elevated on blue ramp Motor: fires tibialis anterior, fires gastrocsoleus complex, fires EHL, fires FHL, Sensory: grossly intact to light touch, medial, lateral, dorsal, 1st dorsal web space, p lantar ( reduced baseline Neuropathy ) Vascular: palpable dorsalis pedis, palpable posterior tibial, digits warm & well perfuse d, capillary refill < 2 seconds Deepthi Collazo, [facility] Orthopaedic Trauma Surgery Pager [phone] Associated attestation - Cory Carmen MD - 09/08/2019 5:06 PM PDTORTHO STAFF NOTE I have personally seen, examined, and performed and independent history and physical exam o n Monty An today. I have discussed the findings with the orthopaedic trauma team resid ents and agree with the full plan as detailed in the note above. Complex right ankle infected hardware. Working on wound care for the heel wound still Setting up antibiotics for afterdischarge. Appreciate infectious disease input. I will be following this patient skilled nursing, rather than Dr stafford or Elan. I discussed the diagnosis, imaging studies, treatment plan and prognosis with the patient and resident. I have reviewed and the above note and agree with the plan. Please do not he sitate to call me for questions. Cory Carmen MD [facility] [address] [facility] [address] [place] [address] Arnold Taylor MD - 09/07/2019 6:22 PM PDTFormatting of this note might be differ ent from the original. Orthopaedic Surgery Progress Note Patient: /Age: MRN: CSN: Date: Admission Date: Hospital Day: Attending Physician: Monty An [id number] y.o. [id number] 09/07/2019 09/03/2019 4 Garth Stafford MD Procedure(s) Performed: 1. Irrigation and excisional debridement fasciotomy sites left ankl e, medial site 6 centimeters by 32 centimeters. Lateral site 3 centimeters by 28 centimeter s. 2. Irrigation and excisional debridement plantar foot wound 2 centimeters by 4 centimeters 3. Closure fasciotomy site x2 Date of surgery: 09/06/2019 Assessment and Plan: Monty An is a 69 y.o.M with the diagnoses/procedures listed above. Today's specific concerns include: -Discussed likely possibility of requiring BKA at a later date given his poor wound healing , infection, and non-union. -Wound consult placed, he will need daily wet-to-dry dressing changes on his posterior heel on the affected extremity. -He will need to continue to be non-weight bearing likely for a very prolonged duration and eventually will need to return to the OR in the future for abx implant removal. -We will discuss further care with either the tumor or trauma teams on Sunday. Post Operative Plan: PT / OT - Non-weight bearing on affected extremity. Keep extremity elevated while in bed. Wound care Daily wet-to-dry dressing changes on the posterior heel Antibiotics - Abx to continue per ID recommendations Orthopaedic Follow-up: The patient should call to schedule/confirm a follow up appointment in approximately 2 weeks. Subjective: Pain well controlled. He reports he is nearly insensate about the LLE. Objective: Last Vitals: Ht 1.829 m (6'), Wt 93.4 kg (206 lb), BP 113/70, Pulse 63, Temperature 36.4 C (97.5 F), Temperature source Oral, RR 16, SpO2 98%, BMI 27.94 kg/(m^2). Facility age [facility] for growth percentiles is 18 years. Exam: General: Well appearing, NAD CV/Resp: Breathing comfortably, Neurologic: Awake and alert MSK: LLE Dressings c/d/i Insensate about the lower leg/foot Wiggles toes WWP distally ARNOLD TAYLOR MD Pager: [phone] 09/07/2019 Associated attestation - Garth Stafford MD - 09/08/2019 12:11 PM PDTI agree with the docu mentation of our resident as contained in this note. I personally interviewed the patient, d uplicated the pertinent parts of the physical examination and personally formulated the plan with the resident. I have reviewed, entered my findings, and agree with the above document ation. -He seemed very receptive to considering below-knee amputation. We will have him continue this conversation with either Dr. Fam or Dr. Carmen as his orthopaedic care will be trans itioned to them. I am happy to be available to speak with him again if he would ever like. 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 Reassured that no decisions need to be made now, can involve case management Sunday to look at SNFs. He has been to [facility] in [place] previously. Physical Examination: Last 24 hour min/max Temp: 36.9 C (98.4 F) Temp Min: 36 C (96.8 F) Max: 36.9 C (98.4 F) Pulse: 89 Pulse Min: 48 Max: 102 Resp: 16 Resp Min: 11 Max: 18 BP: 97/49 BP Min: 97/49 Max: 132/101 SpO2: 94 % SpO2 Min: 90 % Max: 100 % Body mass index is 27.94 kg/m. General: pleasant, no distress HEENT: PERRLA, EOMI, MMM Lungs: CTAB, no wheezes, rales, rhonchi Heart: irregularly irregular, no murmurs Abd: soft NTND MSK: LLE wrapped and elevated, RLE with venous stasis dermatitis and 1+ edema Neuro: AAO, no focal deficits, sensations of RLE diminished; LLE not examined Laboratory Interpretation: No new labs today, previously: CBC: Hgb 9.1 (stable), WBC 6.77, plt 280 BMP wnl Micro: Tissue culture 09/04: Staph aureus, Enterococcus faecalis Blood culture 09/03: NGTD EKG: irregularly irregular, rate 96, Qtc 507 Imaging Interpretation: 09/03 tib/fib and ankle XR Extensive expansile lucency is noted throughout the musculature of the calf consistent with gas throughout the soft tissues indicating necrotizing fasciitis. Extensive subcutaneous fa t edema is also noted, in keeping with a history of cellulitis. Normal alignment seen at the knees. Postsurgical and likely posttraumatic deformity of the ankle is noted with fusion ac ross the subtalar and tibiotalar joint spaces. There is loosening around both distal screws concerning for motion. A deep soft tissue ulcer is present over the calcaneus. Assessment and Plan 69 y.o. M with a fib on digoxin, etoh cirrhosis, etoh use disorder in remission, left ankle fusion 3 years ago presenting with exposed hardware, now s/p four-compartment fasciotomy, d ebridement, removal of hardware, on abx and awaiting serial debridements, plan for OR again today. # Infected L ankle fusion s/p hardware removal, fasciotomy/debridement x2 followed by closu re of fasciotomy # left heel ulcer S/p OR with ortho on 09/04, completed 4-compartment fasciotomy, hardware removed, I&D, plac ed antibiotic nail and wound vac; returned to OR 09/06 for repeat washout, additional debrid ement, and fasciotomy closure. Per ortho, skin quality poor, will have a prolonged course an d may fail to heal, in which case he would require a BKA. Deep wound cultures growing Staph aureus and E faecalis. Ortho following. - fu cultures - continue vancomycin - will consult ID to discuss antibiotic plan - Activity restrictions: NWB, elevated, posterior black foot splint - PT following - wound consult ordered for left heel ulcer - patient is interested in hearing more about recovery time course and resources as he con siders possible BKA. # post operative pain Pain is well controlled on current regimen. Patient alert and interactive today. -oxycodone 5 mg q 6 hours prn -dilaudid IV PRN for breakthrough pain # persistent atrial fibrillation On home digoxin. Has been well rate controlled here although per ortho report was in afib w ith RVR intraoperatively on 09/04. CHADsVASc 3 (age, htn, DM); HAS BLED 4. 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 - held asa in s/o surgery, restart - continue digoxin - goal resting rate <110 # bilateral lower extremity swelling Unclear etiology. Was seeing freight handler who is prescribing torsemide 10 mg daily for the swelling, however not noted to have diagnosis of heart failure, echo reviewed, normal EF. Po ssible diastolic dysfunction but besides trace LE swelling with chronic venous stasis change s, does not appear volume overloaded at this time. - Holding torsemide in s/o monitoring for potential evolving infection/sepsis. Continue to monitor volume status, I&Os # Hx of etoh use disorder # reported etoh cirrhosis Unclear h/o cirrhosis. No records regarding any complications related to this. Quit drinkin g a few months ago. - gabapentin 600mg tid per home dose Code Status: Full Code Surrogate Decision Maker Primary Surrogate Decision Maker Josué An son [phone] This patient was staffed with Dr. Huerta, who agrees with the assessment and plan. Gauri Strickland MD Internal Medicine [id number] signed by Tiffanie Huerta MD at 09/07/2019 7:08 PM PDT Associated attestation - Tiffanie Huerta MD - 09/07/2019 7:08 PM PDT GM attending I personally interviewed the patient, performed the cespedes elements of the physical examinatio n, and personally formulated the assessment and plan with the resident. See resident note f or details. " feeling good" after procedure yesterday. Pain is well controled / wants to talk about the notion of a BKA and what that would look l natasha. Last Vitals: BP 113/70 (BP Location: Left upper arm, Patient Position: Lying on back) | Pu lse 63 | Temp 36.4 C (97.5 F) (Oral) | Resp 16 | Ht 1.829 m (6') | Wt 93.4 kg (206 l b) Comment: not sure how the bed was zeroed | SpO2 98% | BMI 27.94 kg/m | BSA 2.18 m 24 Hour Vital Min/Max: Systolic (24hrs), Av , Min:97 , Max:119 Diastolic (24hrs), Av, Min:49, Max:76 Pulse Min: 60 Max: 98 Temp Min: 36.3 C (97.3 F) Max: 37 C (98.6 F) Resp Min: 16 Max: 16 SpO2 Min: 94 % Max: 99 % Intake/Output Summary (Last 24 hours) at 09/07/2019 1904 Last data filed at 09/07/2019 1756 Gross per 24 hour Intake 1413 ml Output 2715 ml Net -1302 ml PE as described 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) 3) Abscess 4) Atrial fibrillation (HCC) 5) Alcohol use disorder, mild, in sustained remission, abuse - agree with plan as outlined in team note. - [facility] in [place] would be a reasonable SNF for him he reports ( though the food is "terrible" the PT is excellent) Aidan Antonio MD - 09/06/2019 7:37 AM PDTORTHOPAEDICS BRIEF PROGRESS NOTE Patient: Monty An Date: 09/06/2019 Time: 7:37 AM Patient to go to OR today with Dr. Stafford. He is doing otherwise well this morning LEFT LOWER EXTREMITY: Inspection: HOMER dressing intact to the LLE, with a PFS in place elevated on a blue ramp Palpation: Compartments firm but compressible ROM: full A/ROM foot, toes Motor: fires EHL, fires FHL Sensory: grossly intact to light touch, medial, lateral, dorsal, 1st dorsal web space, pl vira Vascular: palpable dorsalis pedis, digits warm & well perfused, capillary refill < 2 seco nds Aidan Antonio MD Orthopedic Surgery [id number] 7:37 AM 09/06/2019 Gauri Walsh MD - 09/06/2019 7:02 AM PDT General Internal Medicine 3 Progress Note 24 Hour Events: Wound culture grew gram positive cocci Current Symptoms: Pain is well controlled, eager to make some progress by going back to OR today. No bowel mo vement yet today. Denies new swelling in lower extremities, no abdominal or chest pain. Physical Examination: Last 24 hour min/max Temp: 36.3 C (97.3 F) Temp Min: 36.3 C (97.3 F) Max: 36.9 C (98.4 F) Pulse: 56 Pulse Min: 56 Max: 99 Resp: 16 Resp Min: 16 Max: 16 BP: 105/56 BP Min: 103/60 Max: 110/44 SpO2: 95 % SpO2 Min: 95 % Max: 97 % There is no height or weight on file to calculate BMI. General: pleasant, no distress HEENT: PERRLA, EOMI, MMM Lungs: CTAB, no wheezes, rales, rhonchi Heart: irregularly irregular, no murmurs Abd: soft NTND MSK: LLE wrapped and elevated, RLE with venous stasis dermatitis and 1+ edema Neuro: AAO, no focal deficits, sensations of RLE diminished; LLE not examined Laboratory Interpretation: CBC: Hgb 9.1 (stable), WBC 6.77, plt 280 BMP wnl Micro: Tissue culture 09/04: Staph aureus, Enterococcus faecalis Blood culture 09/03: NGTD EKG: irregularly irregular, rate 96, Qtc 507 Imaging Interpretation: 09/03 tib/fib and ankle XR Extensive expansile lucency is noted throughout the musculature of the calf consistent with gas throughout the soft tissues indicating necrotizing fasciitis. Extensive subcutaneous fa t edema is also noted, in keeping with a history of cellulitis. Normal alignment seen at the knees. Postsurgical and likely posttraumatic deformity of the ankle is noted with fusion ac ross the subtalar and tibiotalar joint spaces. There is loosening around both distal screws concerning for motion. A deep soft tissue ulcer is present over the calcaneus. Assessment and Plan 69 y.o. M with a fib on digoxin, etoh cirrhosis, etoh use disorder in remission, left ankle fusion 3 years ago presenting with exposed hardware, now s/p four-compartment fasciotomy, d ebridement, removal of hardware, on abx and awaiting serial debridements, plan for OR again today. # Infected L ankle fusion s/p fasciotomy/debridement/hardware removal # left heel ulcer S/p OR with ortho on 09/04, completed 4-compartment fasciotomy, hardware removed, I&D, plac ed antibiotic nail and wound vac. Deep wound cultures growing Staph aureus and E faecalis. O rtho following, planning for serial debridements, will be going to OR again today. Wound culture growing Staph aureus, Enterococcus faecalis. - NPO since midnight, hold anticoagulation - will restart diet after OR - fu intra op cultures and blood cultures - will discontinue pip/tazo now that wound cultures have speciated - continue vancomycin - Activity restrictions: NWB, elevated, posterior black foot splint - PT ordered # post operative pain Pain is well controlled on current regimen. Patient alert and interactive today. -oxycodone 5 mg q 6 hours prn -dilaudid IV PRN for breakthrough pain # Hx of etoh use disorder # reported etoh cirrhosis Unclear h/o cirrhosis. No records regarding any complications related. - gabapentin 600mg tid per home dose # persistent atrial fibrillation On home digoxin. Has been well rate controlled here although per ortho report was in afib w ith RVR intraoperatively. CHADsVASc 3 (age, htn, DM); HAS BLED 4. Former discussions with [facility] freight handler decided against anticoagulation; on 81 mg aspirin daily (used to be 325 but r educed to 81 2/2 "GI problems"). - hold asa in s/o surgery - continue digoxin - goal resting rate <110 # bilateral lower extremity swelling Unclear etiology. Was seeing freight handler who is prescribing torsemide 10 mg daily for the swelling, however not noted to have diagnosis of heart failure, echo reviewed, normal EF. Po ssible diastolic dysfunction but besides trace LE swelling with chronic venous stasis change s, does not appear volume overloaded at this time. Holding torsemide in s/o monitoring for p otential evolving infection/sepsis. Code Status: Full Code Surrogate Decision Maker Primary Surrogate Decision Maker Josué An son [phone] This patient was staffed with Dr. Huerta, who agrees with the assessment and plan. Gauri Strickland MD Internal Medicine [id number] signed by Tiffanie Huerta MD at 09/06/2019 8:14 PM PDT Associated attestation - Tiffanie Huerta MD - 09/06/2019 8:14 PM PDTGm attending I personally interviewed the patient, performed the cespedes elements of the physical examinatio n, and personally formulated the assessment and plan with the resident. See resident Dr. Robert vázquez's note for details. "I am feeling better" and is overall more energetic - but sleepy from surgery and slower to respond 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) 3) Abscess 4) Atrial fibrillation (HCC) 5) Alcohol use disorder, mild, in sustained remission, abuse - agree with plan as outlined in team note.Noel Baptiste MD - 09/05/2019 11:15 AM PDTForma tting of this note might be different from the original. Orthopaedic Surgery Progress Note Patient: /Age: MRN: CSN: Date: Admission Date: Hospital Day: Orthopaedic Attending: Monty An 1950 69 y.o. [id number] 09/05/2019 09/03/2019 2 Olivier Ansari MD Diagnosis(es): 1. Infected hardware right ankle Orthopaedic Procedure(s) & Date(s): 09/04/19: 4-compartment fasciotomy right leg, removal o f hardware right leg, I&D right leg, placement of antibiotic nail, wound vac placement Assessment & Plan: Monty An is a 69 y.o.M with the diagnoses/procedures listed above. Today's specific concerns include: - Patient was in a fib with RVR intraoperatively, workup per primary team. Patient was not in RVR at end of case. - NWB, elevated, posterior black foot splint - continue IV abx, f/u cultures - nutrition (ortho ordered high protein shakes post-op) - glucose control - plan for return to OR and repeat I&D, likely Sunday or Sunday - Please make NPO tonight - Okay to cancel CT scan of leg as it is likely to show post-surgical changes - Please hold anticoagulation the night prior to any surgeries Care Protocol Items: 1. Immobility due to illness 1. Weight bearing: non-weight bearing, left lower extremity 2. ROM: Maintain posterior foot splint 2. VTE prophylaxis: high risk, lovenox SC 40mg daily or by weight, sequential compression d evices, hold until perioperative bleeding risk decreased 3. Antibiotics: vancomycin, piperacillin/tazobactam, until further notice 4. Special Concerns: PT, 5. Drains: Maintain WV at 125 or 150 mmHg suction. Reinforce PRN (okay for nursing to gurwinder nforce without call to ortho). 6. Dressings: DRESSING CARE Leave dressing in place until your follow up appointment, or at a minimum, 7-10 days after leaving the hospital. After that time, you may change your dressing daily and check the inc ision for any signs of infection, such as: redness, swelling, unusual pain, or increasing d rainage. Your incision should be kept clean and dry. If you have sutures or giselle, do not get your wound wet for 5-7 days after your operation: either sponge bath or cover the incis ion with a waterproof bandage. You may shower, but please do not scrub at the dressing/surg ical site. Please do not soak the dressing in pool, tub, or jacuzzi. Keep your incision co mira with a dressing until there is no discharge on bandage. 5. Orthopaedic Follow-up: Please call the clinic to make a follow up appointment in [facility] 2 weeks with ORTHO TRAUMA & FRACTURE, Subjective: Overnight Events: None. Doing well. Nursing reinforced the wound vac as there was a small a mount of drainage after getting ultrasound. Objective: Last Vitals: Pulse: 59 BP: 103/60 Temp: 36.6 C (97.9 F) SpO2: 97 % Resp: 16 24 Hour Vital Min/Max: Pulse Av Min: 59 Max: 196 BP Min: 94/52 Max: 142/66 Temp Av.3 C (97.4 F) Min: 36 C (96.8 F) Max: 36.7 C (98.1 F) SpO2 Av.1 % Min: 96 % Max: 100 % Resp Av.8 Min: 12 Max: 19 Recent Laboratory Data: Lab Results Component Value Date WBC 6.34 09/05/2019 HCT 28.4 09/05/2019 ESR 92 09/03/2019 CRP 178.0 09/03/2019 Exam: General: appropriate, oriented Respiratory: regular, appropriate effort, not auscultated LLE - dressings c/d/i. WV in place holding suction. Motor intact to ankle dorsiflexion & pl antarflexion, extensor hallucis longus, flexor hallucis longus. No sensation in the foot. to es pink and warm. Noel Baptiste MD [facility] [place] Department of Orthopaedics & Rehabilitation [address] [place] [address] Mail Code: OP31 [facility] [id number] Associated attestation - Olivier Ansari MD - 09/06/2019 6:21 AM PDTPatient seen/examin ed. Agree with note/plan. Discussed with Dr Stafford, plan for washout likely tomorrow. Gauri Adames MD - 09/05/2019 6:57 AM PDT General Internal Medicine 3 Progress Note 24 Hour Events: 4-compartment fasciotomy of left LE, removal of hardware, I&D with ortho yesterday Current Symptoms: Pain well controlled, no new symptoms today, denies abdominal pain, has not eaten yet but f eels hungry. No chest pain or dyspnea. Understands he is nonweightbearing on LLE, but that h e should work with PT as able. Physical Examination: Last 24 hour min/max Temp: 36.6 C (97.9 F) Temp Min: 36 C (96.8 F) Max: 36.7 C (98.1 F) Pulse: 107 Pulse Min: 59 Max: 196 Resp: 16 Resp Min: 12 Max: 19 BP: 114/52 BP Min: 94/52 Max: 131/61 SpO2: 99 % SpO2 Min: 96 % Max: 100 % There is no height or weight on file to calculate BMI. General: pleasant, no distress HEENT: PERRLA, EOMI, MMM Lungs: CTAB, no wheezes, rales, rhonchi Heart: irregularly irregular, no murmurs Abd: soft NTND MSK: LLE wrapped and elevated, RLE with venous stasis dermatitis and 1+ edema Neuro: AAO, no focal deficits, sensations of RLE diminished; LLE not examined Laboratory Interpretation: CBC remarkable for Hgb 10.7 -> 8.8, WBC 6.34, plt 304 BMP wnl Micro: Tissue culture 09/04: Gram positive cocci Blood culture 09/03: NGTD EKG: irregularly irregular, rate 96, Qtc 507 Imaging Interpretation: 09/03 tib/fib and ankle XR Extensive expansile lucency is noted throughout the musculature of the calf consistent with gas throughout the soft tissues indicating necrotizing fasciitis. Extensive subcutaneous fa t edema is also noted, in keeping with a history of cellulitis. Normal alignment seen at the knees. Postsurgical and likely posttraumatic deformity of the ankle is noted with fusion ac ross the subtalar and tibiotalar joint spaces. There is loosening around both distal screws concerning for motion. A deep soft tissue ulcer is present over the calcaneus. Assessment and Plan 69 y.o. M with a fib on digoxin, etoh cirrhosis, etoh use disorder in remission, left ankle fusion 3 years ago presenting with exposed hardware, now s/p four-compartment fasciotomy, d ebridement, removal of hardware, on abx and awaiting serial debridements. # Infected L ankle fusion s/p fasciotomy/debridement/hardware removal # left heel ulcer Ortho to OR 09/04, completed 4-compartment fasciotomy, hardware removed, I&D, placed antibi otic nail and wound vac. Deep wound cultures growing gram positive cocci. Ortho following, p leonor for serial debridements, next likely tomorrow or Sunday. - NPO at midnight, hold anticoagulation - fu intra op cultures and blood cultures - continue vancomycin and pip/tazo - Activity restrictions: NWB, elevated, posterior black foot splint - PT ordered # post operative pain Pain is well controlled on current regimen. Patient alert and interactive today. -oxycodone 5 mg q 6 hours prn -dilaudid IV PRN for breakthrough pain # Hx of etoh use disorder # reported etoh cirrhosis Unclear h/o cirrhosis. No records regarding any complications related. - gabapentin 600mg tid per home dose # persistent atrial fibrillation On home digoxin. Has been well rate controlled here although per ortho report was in afib w ith RVR intraoperatively. CHADsVASc 3 (age, htn, DM); HAS BLED 4. Former discussions with [facility] freight handler decided against anticoagulation; on 81 mg aspirin daily (used to be 325 but r educed to 81 2/2 "GI problems"). - hold asa in s/o surgery - continue digoxin - goal resting rate <110 # bilateral lower extremity swelling Unclear etiology. Was seeing freight handler who is prescribing torsemide 10 mg daily for the swelling, however not noted to have diagnosis of heart failure, echo reviewed, normal EF. Po ssible diastolic dysfunction but besides trace LE swelling with chronic venous stasis change s, does not appear volume overloaded at this time. Holding torsemide in s/o monitoring for p otential evolving infection/sepsis. Code Status: Full Code Surrogate Decision Maker Primary Surrogate Decision Maker Josué An son [phone] This patient was staffed with Dr. Huerta, who agrees with the assessment and plan. Gauri Strickland MD Internal Medicine [id number] signed by Tiffanie Huerta MD at 09/06/2019 8:13 PM PDT Associated attestation - Tiffanie Huerta MD - 09/06/2019 8:13 PM PDTGM attending I personally interviewed the patient, performed the cespedes elements of the physical examinatio n, and personally formulated the assessment and plan with the resident. See resident Dr. Robert vázquez's note for details. Patients Hospital Problem List: 69 y.o. M with a fib on digoxin, etoh cirrhosis, etoh use disorder in remission, left ankle fusion 3 years ago presenting with exposed hardware, now s/p four-compartment fasciotomy, d ebridement, removal of hardware, on abx and awaiting serial debridements. - stable and alert and doing well. Active Hospital Problems 1) *soft tissue infection cellulitis 2) 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) - getting surgical treatmen t 3) Abscess 4) Atrial fibrillation (HCC) 5) Alcohol use disorder, mild, in sustained remission, abuse - agree with plan as outlined in team note.Mary Beltran MD - 09/04/2019 6:22 PM PDTForma tting of this note might be different from the original. General Internal Medicine 3 Progress Note 24 Hour Events: Admitted overnight In OR today Current Symptoms: He is quite sleepy, sedated appearing after surgery. No complaints. Denies CP, palpitations , dyspnea. No pain in lower extremities. Physical Examination: Last 24 hour min/max Temp: 36.3 C (97.3 F) Temp Min: 36 C (96.8 F) Max: 37.1 C (98.7 F) Pulse: 125 Pulse Min: 59 Max: 125 Resp: 16 Resp Min: 12 Max: 19 BP: 131/61 BP Min: 95/61 Max: 139/58 SpO2: 97 % SpO2 Min: 96 % Max: 100 % There is no height or weight on file to calculate BMI. General: pleasant, no distress HEENT: Pupils 2 mm and reactive, EOMI, MMM Lungs: CTAB, no wheezes, rales, rhonchi Heart: irregularly irregular, no murmurs, JVP 8 cmH20 at 60 degrees Abd: soft NTND MSK: LLE wrapped and elevated, RLE with venous stasis dermatitis and 1+ edema Neuro: AAO, no focal deficits, sensations of RLE diminished; LLE not examined Laboratory Interpretation: CBC with diff last 72 hours (or 3 results) Recent Labs 09/03/19191009/04/19521 WBC 8.07 6.44 HB 10.2* 10.7* HCT 32.8* 33.8* PLT 363 338 NEUTROPERC 74.1* -- LYMPHPERC 12.1* -- MONOPERC 10.0* -- BASOPERC 0.4 -- EOSPERC 3.0 -- Chemistries: Last 72 Hours (or 3 results): Recent Labs 09/03/19192309/04/19 0509/04/19 1401 NA 137 138 -- K 3.7 3.7 -- CL 104 105 -- BICARB 28 26 -- BUN 15 14 -- EGFRAFRICAN >60 >60 -- CR 0.92 0.87 -- GLU 84 83 89 CA 8.9 9.1 -- MG -- 2.2 -- EKG: irregularly irregular, rate 96, Qtc 507 Echo : 08/27/2018: [place]: Atrial fibrillation. Technically adequate study. EF 65- 70%. LV normal in size with mild LVH, no regional wall motion abnormalities. Indeterminate a ssessment of diastolic function secondary to atrial fib. RV normal in size and function. Bot h atria mildly enlarged stable. Valve trileaflet, noncoronary cusp moderately calcified and immobile with normal excursion of left and right coronary cusp no AI. No significant aortic stenosis, with peak/mean pressure gradient of 9.92mmHg / 5.88mmHg, not significantly changed from 11/5 mm Hg, as measured on the previous study. The aortic valve area by VTI is 1.5cm , 1.56 cm by the continuity equation, although this is reduced from 2.12 cm, as calculated on the prior study, with no change in the maximum velocity across the aortic valve, which is 1.57m/s, and no change in the LVOT diameter measurement. The only difference is change in LVOT velocity from 0.7 m/s previously to 0.6 m/s on the current study. Mitral valve normal, trace MR, no MVP. Tricuspid valve normal, trace TR. No pulmonary hypertension, RVSP 24.8+ CVP. No pericardial effusion. IVC not well-visualized. Aortic root, ascending ao rta, and aortic arch are normal no ASD, no VSD Echo (05/01/17): poor subcostal views, EF 60-65%, normal RV, mild LAE, mild MR, TR Imaging Interpretation: 09/03 tib/fib and ankle XR Extensive expansile lucency is noted throughout the musculature of the calf consistent with gas throughout the soft tissues indicating necrotizing fasciitis. Extensive subcutaneous fa t edema is also noted, in keeping with a history of cellulitis. Normal alignment seen at the knees. Postsurgical and likely posttraumatic deformity of the ankle is noted with fusion ac ross the subtalar and tibiotalar joint spaces. There is loosening around both distal screws concerning for motion. A deep soft tissue ulcer is present over the calcaneus. Assessment and Plan 69 y.o. M with a fib on digoxin, etoh cirrhosis, etoh use disorder in remission, left ankle fusion 3 years ago presenting with exposed hardward, s/p four-compartment fasciotomy, debri darshan, removal of hardware. # Infected L ankle fusion # left heel ulcer Ortho to OR today. Took cultures. Ortho following, planning for serial debridements. - Wound culture from rehab is sterile from 09/02 (was on abx) - f/u intra op cultures and blood cultures - continue vancomycin and pip/tazo # post operative pain On my examination after surgery, patient with small pupils but oxygenating well w good resp irations. He denies pain at all in his leg. Will decrease oxycodone. -oxycodone 5 mg q 6 hours prn # Hx of etoh use disorder # reported etoh cirrhosis Unclear h/o cirrhosis. No records regarding any complications related. - gabapentin 600mg tid per home dose # persistent atrial fibrillation On home digoxin. Has been well rate controlled here. CHADsVASc 3 (age, htn, DM); HAS BLED 4 . 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 - hold asa in s/o surgery - continue digoxin - goal resting rate <110 # bilateral lower extremity swelling Unclear etiology. Was seeing freight handler who is prescribing torsemide 10 mg daily for the swelling, however not noted to have diagnosis of heart failure, echo reviewed, normal EF. Po ssible diastolic dysfunction but besides trace LE swelling with chronic venous stasis change s, does not appear volume overloaded at this time. Holding torsemide in s/o monitoring for p otential evolving infection/sepsis. Code Status: Full Code Surrogate Decision Maker Primary Surrogate Decision Maker Josué An son [phone] This patient was staffed with Dr. Huerta, who agrees with the assessment and plan. Mary Beltran MD PGY-3, Internal Medicine P M PDT Associated attestation - Tiffanie Huerta MD - 09/04/2019 9:33 PM PDT GM attending I personally interviewed the patient, performed the cespedes elements of the physical examinatio n, and personally formulated the assessment and plan with the resident. See resident Dr. Hope's note for details. Patients Hospital Problem List: 69 y.o. M with a fib on digoxin, etoh cirrhosis, etoh use disorder in remission, left ankle fusion 3 years ago presenting with exposed hardward, s/p four-compartment fasciotomy, debri darshan, removal of hardware. - answering all questions post op - no CP no SOB - Alert and oriented times three PE Right LE with large pins and wrapped Lungs clear CV irreg irreg Abd soft No rash CBC with diff last 72 hours (or 3 results) Recent Labs 09/03/19191009/04/19 0522 WBC 8.07 6.44 HB 10.2* 10.7* HCT 32.8* 33.8* PLT 363 338 NEUTROPERC 74.1* -- LYMPHPERC 12.1* -- MONOPERC 10.0* -- BASOPERC 0.4 -- EOSPERC 3.0 -- Chemistries: Last 72 Hours (or 3 results): Recent Labs 09/03/19 19209/04/19 0522 09/04/19 1401 NA 137 138 -- K 3.7 3.7 -- CL 104 105 -- BICARB 28 26 -- BUN 15 14 -- EGFRAFRICAN >60 >60 -- CR 0.92 0.87 -- GLU 84 83 89 CA 8.9 9.1 -- MG -- 2.2 -- Active problems -Infected L ankle fusion - left heel ulcer - getting surgery by ortho today with follow up debridement planned -culture data pending. No evidence of sepsis -Hx of etoh use disorder -reported etoh cirrhosis - no etoh in 4 month per pt -persistent atrial fibrillation - long standing, on dig, no RVR - currently on medicine service until we see how he does over night and reassess. Patric Chandler, Ilir Martins - 09/03/2019 9:35 PM PDTInternal Medicine - Brief Resident Admit Note ID/HPI: Was seen by cardiology 09/01 who note exposed screw, stated he had noticed this ~1 week ago Has been getting wound care at facility where he lives in [facility], was discharged to home I called and spoke with night RN at [facility] He discharged home yesterday from facility They had noted exposed hardware last week, cultured wound which has not grown and started o n PO levofloxacin 500mg daily and augmentin on 09/02 He was seen by Dr Castellano at [facility] who requested transfer to [facility] for orthopedic eval From last cardiology note 09/01/19 "He has a history of persistent atrial fibrillation mostly well controlled, alcoholism , hy ponatremia and hypokalemia which limits use of diuretics but resolved when abstinent from al cohol,,cirrhosis ,ascites, esophageal varices , history of syncope secondary to antihyperten sives, frequent falls, peripheral neuropathy to his hands and feet, hypertension though more recently has developed hypotension treated with midodrine, hyperlipidemia, and dependent pe yaritza edema" He reports no pain in leg, has been walking on it, no fevers, noticed screw about 1 week ag o, leg progressively swollen and red over same period. Objective Findings: AF, hr 105, HD stable on RA Comfortable in bed, heart irregular, no murmur, JVP 8, lungs clear infront, belly soft and obese, left LE very red, warm and swollen, is non-tender, 3-4 CM ulcer on heel, screw 1/2 cm out of top of foot with pus, 1+ DP pulses, 1-2 cm inguinal adenopathy on left Labs with pH 7.44, CMP notable for albumin 2.5, lactate 0.8, ESR 92, CRp 178, CBC WBC 8, Hg 10, platelets 363, INR 1.3 X-ray - Extensive expansile lucency is noted throughout the musculature of the calf consist ent with gas throughout the soft tissues indicating necrotizing fasciitis. Extensive subcuta neous fat edema is also noted, in keeping with a history of cellulitis. Normal alignment see n at the knees. Postsurgical and likely posttraumatic deformity of the ankle is noted with f usion across the subtalar and tibiotalar joint spaces. There is loosening around both distal screws concerning for motion. A deep soft tissue ulcer is present over the calcaneus. Problem List: #Necrotising soft tissue infection, left lower extremity #atrial fibrillation, not on anticoagulation #Cirrhosis, chart history of esophageal varices #Alcohol abuse, reportedly in remission #HTN #Peripheral neuropathy #Coagulopathy, likely due to liver disease #ORIF left ankle fracture 01/20/16 #Left foot fusion 02/14/16 Meds (faxed from prior facility) --torsemide 10mg, digoxin 0.125, asa 81, KCl, thiamine, gabapentin 600mg, levofloxacin and augmentin Assessment & Plan: 69 yo man with cirrhosis due to etoh (chart history of ascites and EV), afib on asa, alcoho l abuse in remission, prior ORIF and foot fusion on left in 2016 admitted via ED with expose d hardware and necrotizing soft tissue infection in left lower extremity. He is not systemi devante ill despite extensive soft tissue infection. Wound culture from rehab is sterile from 09/02, has been on levofloxacin and augmentin. He was evaluated by orthopedics in ED who r ec holding antibiotics, plan for OR tomorrow. He is admitted to medicine due to medical com plexity. Would be appropriate to transfer patient to surgical service after procedure tomorrow as hi s comorbid medical conditions are stable and not significantly contributing to acute hospita l needs. --continue digoxin, gabapentin, torsemide --restart asa once OK by ortho --full set coags, digoxin level with am labs --ortho and gen surg consulting Code Status: Full Surrogate Decision Maker Documentation: This patient will be staffed with attending physician, Dr. Huerta within 24 hours. Please refer to excellent analysis intern H&P for full problem based plan. ILIR SPIVEY MD Internal Medicine, PGY-3 Pager: [phone] documented in this encou nter Plan of Treatment + +---------+--------+ + + | Name | Type | Priori | Associated Diagnoses | Date/Time | | | | ty | | | + +---------+--------+ + + | X-RAY FLUOROSCOPY IN | Imaging | Urgent | | 09/04/2019 1:16 PM | | OR > 1 HOUR | | | | PDT | + +---------+--------+ + + + + +--------+ + + | Name | Type | Priori | Associated Diagnoses | Order Schedule | | | | ty | | | + + +--------+ + + | RBC MORPHOLOGY | Lab - | Routin | | 09/03/2019 until | | | [facility] | e | | discontinued, 1 | | | Performable | | | completed | | | s | | | | + + +--------+ + + | X-RAY FLUOROSCOPY IN | Imaging | Urgent | | One Time for 1 | | OR > 1 HOUR | | | | Occurrences starting | | | | | | 09/04/2019 until | | | | | | 09/04/2019 | + + +--------+ + + | RBC MORPHOLOGY | Lab - | Routin | | 09/05/2019 until | | | [facility] | e | | discontinued, 1 | | | Performable | | | completed | | | s | | | | + + +--------+ + + | PATHOLOGY SMEAR | Lab - | Routin | | 09/15/2019 until | | REVIEW | [facility] | e | | discontinued, 1 | | | Performable | | | completed | | | s | | | | + + +--------+ + + documented as of this encounter Procedures + +--------+ + + + | Procedure Name | Priori | Date/Time | Associated Diagnosis | Comments | | | ty | | | | + +--------+ + + + | VANCOMYCIN, TROUGH | Routin | 09/15/2019 | | Results for this | | | e | 8:48 PM | | procedure are in the | | | | PST | | results section. | + +--------+ + + + | HEMATOPATHOLOGY | Routin | 09/15/2019 | | | | SLIDE CREATION | e | 4:19 AM | | | | | | PST | | | + +--------+ + + + | PATHOLOGY SMEAR | Routin | 09/15/2019 | | Results for this | | REVIEW | e | 4:19 AM | | procedure are in the | | | | PST | | results section. | + +--------+ + + + | CBC AND AUTO DIFF | Routin | 09/15/2019 | | Results for this | | | e | 4:19 AM | | procedure are in the | | | | PST | | results section. | + +--------+ + + + | CBC, WITH | Routin | 09/15/2019 | | Results for this | | DIFFERENTIAL | e | 4:19 AM | | procedure are in the | | | | PST | | results section. | + +--------+ + + + | HEMATOPATHOLOGY | Routin | 09/15/2019 | | Results for this | | SMEAR REVIEW | e | 4:00 AM | | procedure are in the | | | | PST | | results section. | + +--------+ + + + | BASIC METABOLIC SET | Routin | 09/15/2019 | | Results for this | | (NA, K, CL, TCO2, | e | 4:00 AM | | procedure are in the | | BUN, CR, GLU, CA) | | PST | | results section. | + +--------+ + + + | COAGULOPATHY PANEL | Routin | 09/15/2019 | | Results for this | | (INR,APTT,FIBRINOGEN | e | 4:00 AM | | procedure are in the | | ) | | PST | | results section. | + +--------+ + + + | FERRITIN | Routin | 09/15/2019 | | Results for this | | | e | 4:00 AM | | procedure are in the | | | | PST | | results section. | + +--------+ + + + | IRON AND TIBC, SERUM | Routin | 09/15/2019 | | Results for this | | | e | 4:00 AM | | procedure are in the | | | | PST | | results section. | + +--------+ + + + | VANCOMYCIN, TROUGH | Routin | 09/12/2019 | | Results for this | | | e | 8:59 PM | | procedure are in the | | | | PDT | | results section. | + +--------+ + + + | CBC (HEMOGRAM) ONLY | Routin | 09/12/2019 | | Results for this | | | e | 5:32 AM | | procedure are in the | | | | PDT | | results section. | + +--------+ + + + | CBC ONLY | Routin | 09/12/2019 | | Results for this | | | e | 5:32 AM | | procedure are in the | | | | PDT | | results section. | + +--------+ + + + | BASIC METABOLIC SET | Routin | 09/12/2019 | | Results for this | | (NA, K, CL, TCO2, | e | 5:31 AM | | procedure are in the | | BUN, CR, GLU, CA) | | PDT | | results section. | + +--------+ + + + | CBC (HEMOGRAM) ONLY | Routin | 09/10/2019 | | Results for this | | | e | 6:05 AM | | procedure are in the | | | | PDT | | results section. | + +--------+ + + + | BASIC METABOLIC SET | Routin | 09/10/2019 | | Results for this | | (NA, K, CL, TCO2, | e | 6:05 AM | | procedure are in the | | BUN, CR, GLU, CA) | | PDT | | results section. | + +--------+ + + + | CBC ONLY | Routin | 09/10/2019 | | Results for this | | | e | 6:05 AM | | procedure are in the | | | | PDT | | results section. | + +--------+ + + + | X-RAY PORTABLE CHEST | Urgent | 09/09/2019 | | Results for this | | PICC LINE | | 7:29 PM | | procedure are in the | | CHECK | | PDT | | results section. | | | | | | | + +--------+ + + + | X-RAY PORTABLE CHEST | Urgent | 09/09/2019 | | Results for this | | 1 VIEW | | 3:24 PM | | procedure are in the | | | | PDT | | results section. | + +--------+ + + + | PICC LINE | Routin | 09/09/2019 | | Results for this | | | e | 2:53 PM | | procedure are in the | | | | PDT | | results section. | + +--------+ + + + | VAT: PICC INSERTION | Routin | 09/09/2019 | | Results for this | | W/US | e | 2:03 PM | | procedure are in the | | | | PDT | | results section. | + +--------+ + + + | VANCOMYCIN, TROUGH | Routin | 09/09/2019 | | Results for this | | | e | 11:26 AM | | procedure are in the | | | | PDT | | results section. | + +--------+ + + + | C-REACTIVE PROTEIN | Routin | 09/09/2019 | | Results for this | | | e | 5:18 AM | | procedure are in the | | | | PDT | | results section. | + +--------+ + + + | SEDIMENTATION RATE | Routin | 09/09/2019 | | Results for this | | | e | 5:18 AM | | procedure are in the | | | | PDT | | results section. | + +--------+ + + + | VANCOMYCIN, TROUGH | Routin | 09/08/2019 | | Results for this | | | e | 11:05 PM | | procedure are in the | | | | PDT | | results section. | + +--------+ + + + | X-RAY TIBIA & FIBULA | Routin | 09/08/2019 | | Results for this | | 2 VIEWS LT | e | 1:56 PM | | procedure are in the | | | | PDT | | results section. | + +--------+ + + + | CBC (HEMOGRAM) ONLY | Routin | 09/08/2019 | | Results for this | | | e | 4:52 AM | | procedure are in the | | | | PDT | | results section. | + +--------+ + + + | BASIC METABOLIC SET | Routin | 09/08/2019 | | Results for this | | (NA, K, CL, TCO2, | e | 4:52 AM | | procedure are in the | | BUN, CR, GLU, CA) | | PDT | | results section. | + +--------+ + + + | CBC ONLY | Routin | 09/08/2019 | | Results for this | | | e | 4:52 AM | | procedure are in the | | | | PDT | | results section. | + +--------+ + + + | VANCOMYCIN, TROUGH | Routin | 09/07/2019 | | Results for this | | | e | 11:08 AM | | procedure are in the | | | | PDT | | results section. | + +--------+ + + + | CARDIOLOGY | | 09/07/2019 | | Results for this | | | | 12:00 AM | | procedure are in the | | | | PDT | | results section. | + +--------+ + + + | CAPILLARY BLOOD | Routin | 09/06/2019 | Infection of lower | Results for this | | GLUCOSE (NO CHG), | e | 2:00 PM | extremity | procedure are in the | | POC | | PDT | associated with | results section. | | | | | hardware (HCC) | | + +--------+ + + + | CBC (HEMOGRAM) ONLY | Routin | 09/06/2019 | | Results for this | | | e | 4:20 AM | | procedure are in the | | | | PDT | | results section. | + +--------+ + + + | BASIC METABOLIC SET | Routin | 09/06/2019 | | Results for this | | (NA, K, CL, TCO2, | e | 4:20 AM | | procedure are in the | | BUN, CR, GLU, CA) | | PDT | | results section. | + +--------+ + + + | CBC ONLY | Routin | 09/06/2019 | | Results for this | | | e | 4:20 AM | | procedure are in the | | | | PDT | | results section. | + +--------+ + + + | CARDIOLOGY | | 09/06/2019 | | Results for this | | | | 12:00 AM | | procedure are in the | | | | PDT | | results section. | + +--------+ + + + | CARDIOLOGY | | 09/06/2019 | | Results for this | | | | 12:00 AM | | procedure are in the | | | | PDT | | results section. | + +--------+ + + + | CARDIOLOGY | | 09/06/2019 | | Results for this | | | | 12:00 AM | | procedure are in the | | | | PDT | | results section. | + +--------+ + + + | ANTIBODY SCREEN | Routin | 09/05/2019 | | Results for this | | | e | 7:47 PM | | procedure are in the | | | | PDT | | results section. | + +--------+ + + + | TYPE AND SCREEN | Routin | 09/05/2019 | | Results for this | | | e | 7:47 PM | | procedure are in the | | | | PDT | | results section. | + +--------+ + + + | ABO & RH TYPE | Routin | 09/05/2019 | | Results for this | | | e | 7:47 PM | | procedure are in the | | | | PDT | | results section. | + +--------+ + + + | VASC LAB ANKLE BRACH | Urgent | 09/05/2019 | | Results for this | | INDICS W WAVEFORM | | 1:51 PM | | procedure are in the | | BILAT | | PDT | | results section. | + +--------+ + + + | VASC LAB VENOUS | Urgent | 09/05/2019 | | Results for this | | DUPLEX LOWER | | 1:48 PM | | procedure are in the | | EXTREMITY LT | | PDT | | results section. | + +--------+ + + + | RBC MORPHOLOGY | Routin | 09/05/2019 | | Results for this | | | e | 5:00 AM | | procedure are in the | | | | PDT | | results section. | + +--------+ + + + | CBC AND AUTO DIFF | Routin | 09/05/2019 | | Results for this | | | e | 5:00 AM | | procedure are in the | | | | PDT | | results section. | + +--------+ + + + | CBC, WITH | Routin | 09/05/2019 | | Results for this | | DIFFERENTIAL | e | 5:00 AM | | procedure are in the | | | | PDT | | results section. | + +--------+ + + + | CARDIOLOGY | | 09/05/2019 | | Results for this | | | | 12:00 AM | | procedure are in the | | | | PDT | | results section. | + +--------+ + + + | PROCEDURE NOTE | Routin | 09/04/2019 | | Results for this | | | e | 11:55 PM | | procedure are in the | | | | PDT | | results section. | + +--------+ + + + | 12 LEAD ECG | Routin | 09/04/2019 | | Results for this | | | e | 4:14 PM | | procedure are in the | | | | PDT | | results section. | + +--------+ + + + | CAPILLARY BLOOD | Routin | 09/04/2019 | Infection of lower | Results for this | | GLUCOSE (NO CHG), | e | 2:01 PM | extremity | procedure are in the | | POC | | PDT | associated with | results section. | | | | | hardware (HCC) | | + +--------+ + + + | X-RAY ANKLE 2 VIEWS | Urgent | 09/04/2019 | | Results for this | | LEFT | | 1:18 PM | | procedure are in the | | | | PDT | | results section. | + +--------+ + + + | CULTURE, | Urgent | 09/04/2019 | | Results for this | | TISSUE-PROSTHETIC | | 12:21 PM | | procedure are in the | | JOINT INFECTION AER | | PDT | | results section. | | AND SAMMIE | | | | | + +--------+ + + + | CULTURE, | Urgent | 09/04/2019 | | Results for this | | TISSUE-PROSTHETIC | | 12:21 PM | | procedure are in the | | JOINT INFECTION AER | | PDT | | results section. | | AND SAMMIE | | | | | + +--------+ + + + | CULTURE, | Urgent | 09/04/2019 | | Results for this | | TISSUE-PROSTHETIC | | 12:21 PM | | procedure are in the | | JOINT INFECTION AER | | PDT | | results section. | | AND SAMMIE | | | | | + +--------+ + + + | CULTURE, | Urgent | 09/04/2019 | | Results for this | | TISSUE-PROSTHETIC | | 12:21 PM | | procedure are in the | | JOINT INFECTION AER | | PDT | | results section. | | AND SAMMIE | | | | | + +--------+ + + + | CULTURE, | Urgent | 09/04/2019 | | Results for this | | TISSUE-PROSTHETIC | | 12:09 PM | | procedure are in the | | JOINT INFECTION AER | | PDT | | results section. | | AND SAMMIE | | | | | + +--------+ + + + | FOOT AND ANKLE SOFT | Electi | 09/04/2019 | INFECTED LEFT | | | TISSUE PROCEDURE | ve | 9:18 AM | ANKLE FUSION | | | | Surgic | PDT | | | | | al | | | | + +--------+ + + + | FOOT AND ANKLE | Electi | 09/04/2019 | INFECTED LEFT | | | HARDWARE REMOVAL | ve | 9:18 AM | ANKLE FUSION | | | | Surgic | PDT | | | | | al | | | | + +--------+ + + + | CBC (HEMOGRAM) ONLY | Routin | 09/04/2019 | | Results for this | | | e | 5:22 AM | | procedure are in the | | | | PDT | | results section. | + +--------+ + + + | BASIC METABOLIC SET | Urgent | 09/04/2019 | | Results for this | | (NA, K, CL, TCO2, | | 5:22 AM | | procedure are in the | | BUN, CR, GLU, CA) | | PDT | | results section. | + +--------+ + + + | CBC ONLY | Routin | 09/04/2019 | | Results for this | | | e | 5:22 AM | | procedure are in the | | | | PDT | | results section. | + +--------+ + + + | COAGULOPATHY PANEL | Urgent | 09/04/2019 | | Results for this | | (INR,APTT,FIBRINOGEN | | 5:22 AM | | procedure are in the | | ) | | PDT | | results section. | + +--------+ + + + | MAGNESIUM, PLASMA | Urgent | 09/04/2019 | | Results for this | | | | 5:22 AM | | procedure are in the | | | | PDT | | results section. | + +--------+ + + + | DRUG | Routin | 09/04/2019 | | Results for this | | SCREEN,URINE;W/CONFI | e | 3:30 AM | | procedure are in the | | RM | | PDT | | results section. | + +--------+ + + + | CARDIOLOGY | | 09/04/2019 | | Results for this | | | | 12:00 AM | | procedure are in the | | | | PDT | | results section. | + +--------+ + + + | PREALBUMIN, SERUM | Urgent | 09/03/2019 | | Results for this | | | | 9:52 PM | | procedure are in the | | | | PDT | | results section. | + +--------+ + + + | HEMOGLOBIN A1C, | Urgent | 09/03/2019 | | Results for this | | BLOOD | | 9:52 PM | | procedure are in the | | | | PDT | | results section. | + +--------+ + + + | CULTURE, BLOOD BACTI | Urgent | 09/03/2019 | | Results for this | | & YEAST [facility] | | 7:25 PM | | procedure are in the | | | | PDT | | results section. | + +--------+ + + + | RAINBOW HOLD TUBE - | Urgent | 09/03/2019 | | | | RED TOP | | 7:25 PM | | | | | | PDT | | | + +--------+ + + + | RAINBOW HOLD TUBE - | Urgent | 09/03/2019 | | | | BLUE TOP | | 7:25 PM | | | | | | PDT | | | + +--------+ + + + | BG-LAC,POC ISTAT | Urgent | 09/03/2019 | | Results for this | | | | 7:25 PM | | procedure are in the | | | | PDT | | results section. | + +--------+ + + + | RAINBOW HOLD, CORE | Urgent | 09/03/2019 | | Results for this | | PANEL | | 7:25 PM | | procedure are in the | | | | PDT | | results section. | + +--------+ + + + | INR | Urgent | 09/03/2019 | | Results for this | | | | 7:25 PM | | procedure are in the | | | | PDT | | results section. | + +--------+ + + + | CULTURE, BLOOD BACTI | Urgent | 09/03/2019 | | Results for this | | & YEAST | | 7:25 PM | | procedure are in the | | | | PDT | | results section. | + +--------+ + + + | CULTURE, BLOOD BACTI | Urgent | 09/03/2019 | | Results for this | | & YEAST [facility] | | 7:24 PM | | procedure are in the | | | | PDT | | results section. | + +--------+ + + + | COMPLETE METABOLIC | Urgent | 09/03/2019 | | Results for this | | SET | | 7:24 PM | | procedure are in the | | (NA,K,CL,CO2,BUN,CRE | | PDT | | results section. | | AT,GLUC,CA,AST,ALT,B | | | | | | LUPE TOTAL,ALK | | | | | | PHOS,ALB,PROT TOTAL) | | | | | + +--------+ + + + | C-REACTIVE PROTEIN | Urgent | 09/03/2019 | | Results for this | | | | 7:24 PM | | procedure are in the | | | | PDT | | results section. | + +--------+ + + + | CULTURE, BLOOD BACTI | Urgent | 09/03/2019 | | Results for this | | & YEAST | | 7:24 PM | | procedure are in the | | | | PDT | | results section. | + +--------+ + + + | DIGOXIN, PLASMA | Urgent | 09/03/2019 | | Results for this | | | | 7:24 PM | | procedure are in the | | | | PDT | | results section. | + +--------+ + + + | ETHANOL (ALCOHOL), | Urgent | 09/03/2019 | | Results for this | | BLOOD | | 7:24 PM | | procedure are in the | | | | PDT | | results section. | + +--------+ + + + | X-RAY ANKLE 2 VIEWS | Urgent | 09/03/2019 | | Results for this | | LEFT | | 7:22 PM | | procedure are in the | | | | PDT | | results section. | + +--------+ + + + | X-RAY TIBIA & FIBULA | Urgent | 09/03/2019 | | Results for this | | 2 VIEWS LT | | 7:22 PM | | procedure are in the | | | | PDT | | results section. | + +--------+ + + + | SEDIMENTATION RATE | Urgent | 09/03/2019 | | Results for this | | | | 7:16 PM | | procedure are in the | | | | PDT | | results section. | + +--------+ + + + | BLOOD BANK HOLD TUBE | Urgent | 09/03/2019 | | Results for this | | - DON | | 7:16 PM | | procedure are in the | | | | PDT | | results section. | | T PROCESS | | | | | + +--------+ + + + | RBC MORPHOLOGY | Routin | 09/03/2019 | | | | | e | 7:11 PM | | | | | | PDT | | | + +--------+ + + + | CBC AND AUTO DIFF | Urgent | 09/03/2019 | | Results for this | | | | 7:11 PM | | procedure are in the | | | | PDT | | results section. | + +--------+ + + + | CBC, WITH | Urgent | 09/03/2019 | | Results for this | | DIFFERENTIAL | | 7:11 PM | | procedure are in the | | | | PDT | | results section. | + +--------+ + + + documented in this encounter Results VANCOMYCIN, TROUGH (09/15/2019 8:48 PM PST) + +-------+ + + + | Component | Value | Ref Range | Performed | Pathologist | | | | | At | Signature | + +-------+ + + + | VANCOMYCIN, | 14.2 | 10.0 - 20.0 | [facility] | | | TROUGH | | ug/mL | LABORATORY | | | | | [...] + + | [facility] | [address] | [place] [address] | | | SERVICES, CORE | [address] | | | + + + + + PATHOLOGY SMEAR REVIEW (09/15/2019 4:19 AM PST) + + + + +--------- --------+ | Component | Value | Ref Range | Performed | Patholog ist | | | | | At | Signatur e | + + + + +--------- --------+ | Final | Peripheral blood, | | [facility] | Electron ically | | Pathologic | morphologic review: - | | DEPARTMENT | signed b y Adrian | | Diagnosis | Normocytic, hypochromic | | OF | M Nikki mackay MD | | | anemia - Mild absolute | | PATHOLOGY | on 2018 at | | | eosinophilia - No | | | 10:40 A M | | | dysplastic changesCase | | | | | | seen by:Robert Walker MD | | | | | | - Hematopathology | | | | | | [facility] Toyin CHANDLER, | | | | | | PhD - | | | | | | HematopathologistPatholo | | | | | | gy, [facility] & | | | | | | [facility] | | | | | | electronic signature | | | | | | indicates that I have | | | | | | personally reviewed all | | | | | | diagnostic slides, the | | | | | | gross and/or microscopic | | | | | | portion of this report | | | | | | and formulated the final | | | | | | diagnosis.CLINICAL | | | | | | HISTORY: 69 year old | | | | | | male with history of | | | | | | atrial fibrillation and | | | | | | ETOH cirrhosis, now with | | | | | | microcytic, hypochromic | | | | | | anemiaCBC:Resulted Date | | | | | | and Time: 09/15/2019 | | | | | | 0427 PST | | | | | | | | | | | | Component Result | | | | | | Reference Range WHITE | | | | | | CELL COUNT 8.96 | | | | | | 3.50-10.80 K/cu mm RED | | | | | | CELL COUNT 3.81 | | | | | | 4.50-6.00 M/cu mm | | | | | | HEMOGLOBIN 9.5 | | | | | | 13.5-17.5 g/dL | | | | | | HEMATOCRIT 30.8 | | | | | | 41.0-53.0 % MCV 80.8 | | | | | | 80.0-100.0 fL MCHC | | | | | | 30.8 32.0-36.0 g/dL | | | | | | RDW SD 47.7 35.1-46.3 | | | | | | fL PLATELET COUNT 395 | | | | | | 150-400 K/cu mm MPV 9.9 | | | | | | 9.7-12.3 fL NRBC% 0.0 | | | | | | 0.0-0.3 % NRBC# 0.00 | | | | | | 0.00-0.02 K/cu mm | | | | | | PERIPHERAL BLOOD | | | | | | DIFFERENTIAL | | | | | | | | | | | | Component | | | | | | Result Reference | | | | | | Range NEUTROPHIL % 64.4 | | | | | | 50.0-70.0 % LYMPHOCYTE | | | | | | % 16.9 18.0-42.0 % | | | | | | MONOCYTE % 8.4 3.5-9.0 % | | | | | | EOS % 8.7 1.0-3.0 % | | | | | | BASO % 0.8 0.0-2.0 % | | | | | | IG% 0.8 0.0-1.0 % | | | | | | NEUTROPHIL # 5.78 | | | | | | 1.80-7.70 K/cu mm | | | | | | LYMPHOCYTE # 1.51 | | | | | | 1.00-4.80 K/cu mm | | | | | | MONOCYTE # 0.75 | | | | | | 0.10-0.90 K/cu mm EOS # | | | | | | 0.78 0.00-0.50 K/cu | | | | | | mm BASO # 0.07 0.00-0.10 | | | | | | K/cu mm IG# 0.07 | | | | | | 0.00-0.10 K/cu mm | | | | | | PERIPHERAL BLOOD | | | | | | MORPHOLOGY:WBC: | | | | | | Neutrophils show normal | | | | | | nuclear lobation and | | | | | | cytoplasmic granularity. | | | | | | Some neutrophils show | | | | | | mild toxic granulation. | | | | | | Monocytes appear | | | | | | mature. No blasts are | | | | | | identified. The | | | | | | lymphocytes are | | | | | | morphologically | | | | | | heterogeneous. RBC: | | | | | | Hypochromia. Mild | | | | | | polychromasia. | | | | | | Platelets: Unremarkable. | | | | | | Normal granularity. | | | | | | Rare large platelets. | | | | | | 0.07 | | | | | | 0.00-0.10 K/cu mm | | | | | | | | | | | | | | | | | |PERIPHERAL BLOOD MORPHOLOGY: | | | | | |WBC: Neutrophils show normal nuclear lobation and cytoplasmic granularity. So me neutrophils show mild toxic granulation. Monocytes appear mature. No blasts are identifi ed. The lymphocytes are morphologically heterogeneous. | | | | | |RBC: Hypochromia. Mild polychromasia. | | | | | |Platelets: Unremarkable. Normal granularity. Rare large platelets. | | | | + + + + +--------- --------+ | Gross | A Olivares-stained | | [facility] | | | Description | peripheral blood smear | | DEPARTMENT | | | | was reviewed. | | OF | | | | | | PATHOLOGY | | + + + + +--------- --------+ | Ancillary | Analyte specific | | [facility] | | | Information | reagents are used in | | DEPARTMENT | | | | many laboratory tests | | OF | | | | necessary for standard | | PATHOLOGY | | | | medical care. This test | | | | | | was developed and its | | | | | | performance | | | | | | characteristics | | | | | | determined by [facility] | | | | | | laboratories. It has not | | | | | | been cleared or | | | | | | approved by the [place] Food | | | | | | and Drug Administration | | | | | | (FDA). FDA does not | | | | | | require this test to go | | | | | | through premarket FDA | | | | | | review. This test is | | | | | | used for clinical | | | | | | purposes. It should not | | | | | | be regarded as | | | | | | investigational or for | | | | | | research. This | | | | | | laboratory is certified | | | | | | under the Clinical | | | | | | Laboratory Improvement | | | | | | Amendments (CLIA) as | | | | | | qualified to perform | | | | | | high complexity clinical | | | | | | laboratory testing. If | | | | | | immunohistochemical | | | | | | analysis (IHC) was | | | | | | performed concurrently | | | | | | with flow cytometry, the | | | | | | IHC was done to allow | | | | | | assessment of | | | | | | immunoarchitecture, | | | | | | which is not supplied by | | | | | | flow cytometry. Flow | | | | | | cytometry enables better | | | | | | assessment of clonality | | | | | | and antigen aberrancy | | | | | | than IHC. Appropriate | | | | | | positive controls and/or | | | | | | negative controls were | | | | | | used for all stains, | | | | | | including | | | | | | immunohistochemical | | | | | | stains, special stains, | | | | | | and in situ | | | | | | hybridization, and these | | | | | | reacted appropriately. | | | | + + + + +--------- --------+ + + | Specimen | + + | Blood - Blood | | (substance) | + + + + + + + | Performing | Address | City/State/Zipcode | Phone Number | | Organization | | | | + + + + + | [facility] | [address] | [place] [address] | | | PATHOLOGY | [address] | | | + + + + + CBC AND AUTO DIFF (09/15/2019 4:19 AM PST) + + + + + + | Component | Value | Ref Range | Performed | Pathologist | | | | | At | Signature | + + + + + + | WHITE CELL | 8.96 | 3.50 - 10.80 | [facility] | | | COUNT | | K/cu mm | LABORATORY | | | | | | SERVICES, | | | | | | CORE | | + + + + + + | RED CELL | 3.81 (L) | 4.50 - 6.00 | [facility] | | | COUNT | | M/cu mm | LABORATORY | | | | | | SERVICES, | | | | | | CORE | | + + + + + + | HEMOGLOBIN | 9.5 (L) | 13.5 - 17.5 | [facility] | | | | | g/dL | LABORATORY | | | | | | SERVICES, | | | | | | CORE | | + + + + + + | HEMATOCRIT | 30.8 (L) | 41.0 - 53.0 % | [facility] | | | | | | LABORATORY | | | | | | SERVICES, | | | | | | CORE | | + + + + + + | MCV | 80.8 | 80.0 - 100.0 fL | [facility] | | | | | | LABORATORY | | | | | | SERVICES, | | | | | | CORE | | + + + + + + | MCHC | 30.8 (L) | 32.0 - 36.0 | [facility] | | | | | g/dL | LABORATORY | | | | | | SERVICES, | | | | | | CORE | | + + + + + + | RDW SD | 47.7 (H) | 35.1 - 46.3 fL | [facility] | | | | | | LABORATORY | | | | | | SERVICES, | | | | | | CORE | | + + + + + + | PLATELET | 395 | 150 - 400 K/cu | [facility] | | | COUNT | | mm | LABORATORY | | | | | | SERVICES, | | | | | | CORE | | + + + + + + | MPV | 9.9 | 9.7 - 12.3 fL | [facility] [...] + + + + + + | NEUTROPHIL | 64.4 | 50.0 - 70.0 % | [facility] | | | % | | | LABORATORY | | | | | | SERVICES, | | | | | | CORE | | + + + + + + | LYMPHOCYTE | 16.9 (L) | 18.0 - 42.0 % | [facility] | | | % | | | LABORATORY | | | | | | SERVICES, | | | | | | CORE | | + + + + + + | MONOCYTE % | 8.4 | 3.5 - 9.0 % | [facility] | | | | | | LABORATORY | | | | | | SERVICES, | | | | | | CORE | | + + + + + + | EOS % | 8.7 (H) | 1.0 - 3.0 % | [facility] | | | | | | LABORATORY | | | | | | SERVICES, | | | | | | CORE | | + + + + + + | BASO % | 0.8 | 0.0 - 2.0 % | [facility] | | | | | | LABORATORY | | | | | | SERVICES, | | | | | | CORE | | + + + + + + | IG% | 0.8 | 0.0 - 1.0 % | [facility] | | | | | | LABORATORY | | | | | | SERVICES, | | | | | | CORE | | + + + + + + | NEUTROPHIL | 5.78 | 1.80 - 7.70 | [facility] | | | # | | K/cu mm | LABORATORY | | | | | | SERVICES, | | | | | | CORE | | + + + + + + | LYMPHOCYTE | 1.51 | 1.00 - 4.80 | [facility] | | | # | | K/cu mm | LABORATORY | | | | | | SERVICES, | | | | | | CORE | | + + + + + + | MONOCYTE # | 0.75 | 0.10 - 0.90 | [facility] | | | | | K/cu mm | LABORATORY | | | | | | SERVICES, | | | | | | CORE | | + + + + + + | EOS # | 0.78 (H) | 0.00 - 0.50 | [facility] | | | | | K/cu mm | LABORATORY | | | | | | SERVICES, | | | | | | CORE | | + + + + + + | BASO # | 0.07 | 0.00 - 0.10 | [facility] | | | | | K/cu mm | LABORATORY | | | | | | SERVICES, | | | | | | CORE | | + + + + + + | IG# | 0.07 | 0.00 - 0.10 | [facility] | | | | | K/cu mm | LABORATORY | | | | | | SERVICES, | | | | | | CORE | | + + + + + + + + | Specimen | + + | Blood - Blood | | (substance) | + + + + + | Narrative | Performed At | + + + | Increased immature granulocytes (IG) define a left shift. Immature | [facility] | | granulocytes (IG) are an automated count of metamyelocytes, myelocytes | LABORATORY | | and promyelocytes. Bands are not included in the IG count. Bands are | SERVICES, CORE | | included in the neutrophil count. | | + + + + + + + + | Performing | Address | City/State/Zipcode | Phone Number | | Organization | | | | + + + + + | [facility] | [address] | [place] [address] | | | SERVICES, CORE | [address] | | | + + + + + HEMATOPATHOLOGY SLIDE CREATION (09/15/2019 4:19 AM PST) + + | Specimen | + + | Blood - Blood | | (substance) | + + + + + + + | Performing | Address | City/State/Zipcode | Phone Number | | Organization | | | | + + + + + | [facility] | [address] | [place] [address] | | | SERVICES, CORE | [address] | | | + + + + + BASIC METABOLIC SET (NA, K, CL, TCO2, BUN, CR, GLU, CA) (09/15/2019 4:00 AM PST) + +---------+ + + + | Component | Value | Ref Range | Performed | Pathologist | | | | | At | Signature | + +---------+ + + + | GLUCOSE, | 122 (H) | 70 - 99 mg/dL | [facility] | | | PLASMA | | | LABORATORY | | | (LAB) | | | SERVICES, | | | | | | CORE | | + +---------+ + + + | BUN, PLASMA | 22 (H) | 6 - 20 mg/dL | [facility] | | | (LAB) | | | LABORATORY | | | | | | SERVICES, | | | | | | CORE | | + +---------+ + + + | CREATININE | 1.11 | 0.70 - 1.30 | [facility] | | | PLASMA | | mg/dL | LABORATORY | | | (LAB) | | | SERVICES, | | | | | | CORE | | + +---------+ + + + | EGFR | >60 | >60 mL/min | [facility] | | | - | | | LABORATORY | | | [place] | | | SERVICES, | | | | | | CORE | | + +---------+ + + + | EGFR NON | >60 | >60 mL/min | [facility] | | | -FÉLIX | | | LABORATORY | | | RICAN | | | SERVICES, | | | | | | CORE | | + +---------+ + + + | SODIUM, | 139 | 136 - 145 | [facility] | | | PLASMA | | mmol/L | LABORATORY | | | (LAB) | | | SERVICES, | | | | | | CORE | | + +---------+ + + + | POTASSIUM, | 4.3 | 3.4 - 5.0 | [facility] | [...] +---------+ + + + | CALCIUM, | 9.1 | 8.6 - 10.2 | [facility] | [...] | + + + + + | [facility] | [address] | [place] [address] | | | FERM[address]N ZABALA | [address] | | | + + + + + IRON AND TIBC (09/15/2019 4:00 AM PST) + +--------+ + + + | Component | Value | Ref Range | Performed | Pathologist | | | | | At | Signature | + +--------+ + + + | IRON | 31 (L) | 50 - 170 ug/dL | [facility] | | | | | | LABORATORY | | | | | | SERVICES, | | | | | | CORE | | + +--------+ + + + | IRON BIND | 252 | 240 - 450 ug/dL | [facility] | | | CAP | | | LABORATORY | | | | | | SERVICES, | | | | | | CORE | | + +--------+ + + + | % | 12 (L) | 20 - 50 % | [facility] | | | SATURATION | | | LABORATORY | | | TRANSFERRIN | | | SERVICES, | | | , | | | CORE | | + +--------+ + + + + + | Specimen | + + | Blood - Blood | | (substance) | + + + + + + + | Performing | Address | City/State/Zipcode | Phone Number | | Organization | | | | + + + + + | [facility] | [address] | [place] [address] | | | SERVICES, CORE | [address] | | | + + + + + FERRITIN (09/15/2019 4:00 AM PST) + + + + + + | Component | Value | Ref Range | Performed | Pathologist | | | | | At | Signature | + + + + + + | FERRITIN | 145Comment: Male and | 50 - 200 ng/mL | [facility] | | | | Female >18 years: | | LABORATORY | | | | <20 ng/mL: | | SERVICES, | | | | Consistant with iron | | CORE | | | | deficiency 21-50 | | | | | | ng/mL: Possible | | | | | | iron deficiency 51-99 | | | | | | ng/mL: Iron | | | | | | deficiency unlikely | | | | | | unless inflammation | | | | | | present or | | | | | | patient | | | | | | >65 years of age | | | | | | 100-200 ng/mL: | | | | | | Normal, not consistent | | | | | | with iron deficiency | | | | | | >200 ng/mL: If | | | | | | transferrin saturation | | | | | | >45%, consider | | | | | | hemochromatosis | | | | + + + + + + + + | Specimen | + + | Blood - Blood | | (substance) | + + + + + + + | Performing | Address | City/State/Zipcode | Phone Number | | Organization | | | | + + + + + | [facility] | [address] | [place] [address] | | | VJ, FERM[address]N | [address] | | | + + + + + COAGULOPATHY PANEL (INR,APTT,FIBRINOGEN) (09/15/2019 4:00 AM PST) + + + + + + | Component | Value | Ref Range | Performed | Pathologist | | | | | At | Signature | + + + + + + | INR | 1.03 | 0.90 - 1.20 INR | [facility] | | | | | | LABORATORY | | | | | | SERVICES, | | | | | | CORE | | + + + + + + | APTT | 38.1 (H) | 26.0 - 36.0 | [facility] | | | | | seconds | LABORATORY | | | | | | SERVICES, | | | | | | CORE | | + + + + + + | FIBRINOGEN | 522 (H) | 150 - 450 mg/dL | [facility] | | | LEVEL | | | LABORATORY | | | [...] Therapeutic ranges for full anticoagulation: INR for | [facility] | | Venous Thromboembolism (2.0 - 3.0) INR INR for | LABORATORY | | most patients with mech. valves (2.5 - 3.5) INR APTT values for | SERVICES, CORE | | monitoring heparin therapy may be affected by specimens processed >1 | | | hour after collection. APTT Therapeutic Range: | | | (75 - 120) sec Heparin levels of 0.35 - 0.7 U/mL | | | | | + + + + + + + + | Performing | Address | City/State/Zipcode | Phone Number | | Organization | | | | + + + + + | [facility] | [address] | [place] [address] | | | SERVICES, CORE | [address] | | | + + + + + VANCOMYCIN, TROUGH (09/12/2019 8:59 PM PDT) + +-------+ + + + | Component | Value | Ref Range | Performed | Pathologist | | | | | At | Signature | + +-------+ + + + | VANCOMYCIN, | 16.9 | 10.0 - 20.0 | [facility] | | | TROUGH | | ug/mL | LABORATORY | | | | | [...] + | [facility] | [address] | [place] [address] | | | SERVICES, CORE | [address] | | | + + + + + CBC (HEMOGRAM) ONLY (09/12/2019 5:32 AM PDT) + + + + + + | Component | Value | Ref Range | Performed | Pathologist | | | | | At | Signature | + + + + + + | WHITE CELL | 6.74 | 3.50 - 10.80 | [facility] | | | COUNT | | K/cu mm | LABORATORY | | | | | | SERVICES, | | | | | | CORE | | + + + + + + | RED CELL | 3.68 (L) | 4.50 - 6.00 | [facility] | | | COUNT | | M/cu mm | LABORATORY | | | | | | SERVICES, | | | | | | CORE | | + + + + + + | HEMOGLOBIN | 9.0 (L) | 13.5 - 17.5 | [facility] | | | | | g/dL | LABORATORY | | | | | | SERVICES, | | | | | | CORE | | + + + + + + | HEMATOCRIT | 29.3 (L) | 41.0 - 53.0 % | [facility] | | | | | | LABORATORY | | | | | | SERVICES, | | | | | | CORE | | + + + + + + | MCV | 79.6 (L) | 80.0 - 100.0 fL | [facility] | | | | | | LABORATORY | | | | | | SERVICES, | | | | | | CORE | | + + + + + + | MCHC | 30.7 (L) | 32.0 - 36.0 | [facility] | | | | | g/dL | LABORATORY | | | | | | SERVICES, | | | | | | CORE | | + + + + + + | RDW SD | 45.0 | 35.1 - 46.3 fL | [facility] | | | | | | LABORATORY | | | | | | SERVICES, | | | | | | CORE | | + + + + + + | PLATELET | 379 | 150 - 400 K/cu | [facility] | | | COUNT | | mm | LABORATORY | | | | | | SERVICES, | | | | | | CORE | | + + + + + + | MPV | 9.3 (L) | 9.7 - 12.3 fL | [...] | 0.00 | 0.00 - 0.02 | [facility] | | | | | K/cu mm [...] | + + + + + | [facility] | [address] | [place] [address] | | | VJ, CORE | [address] | | | + + + + + BASIC METABOLIC SET (NA, K, CL, TCO2, BUN, CR, GLU, CA) (09/12/2019 5:31 AM PDT) + +---------+ + + + | Component | Value | Ref Range | Performed | Pathologist | | | | | At | Signature | + +---------+ + + + | GLUCOSE, | 138 (H) | 70 - 99 mg/dL | [facility] | | | PLASMA | | | LABORATORY | | | (LAB) | | | SERVICES, | | | | | | CORE | | + +---------+ + + + | BUN, PLASMA | 14 | 6 - 20 mg/dL | [facility] | | | (LAB) | | | LABORATORY | | | | | | SERVICES, | | | | | | CORE | | + +---------+ + + + | CREATININE | 1.06 | 0.70 - 1.30 | [facility] | | | PLASMA | | mg/dL | LABORATORY | | | (LAB) | | | SERVICES, | | | | | | CORE | | + +---------+ + + + | EGFR | >60 | >60 mL/min | [facility] | | | - | | | LABORATORY | | | [place] | | | SERVICES, | | | | | | CORE | | + +---------+ + + + | EGFR NON | >60 | >60 mL/min | [facility] | | | -F[facility]LIX | | | LABORATORY | | | RICAN | | | SERVICES, | | | | | | CORE | | + +---------+ + + + | SODIUM, | 139 | 136 - 145 | [facility] | | | PLASMA | | mmol/L | LABORATORY | | | (LAB) | | | SERVICES, | | | | | | CORE | | + +---------+ + + + | POTASSIUM, | 3.9 | 3.4 - 5.0 | [facility] | | | PLASMA | | mmol/L | LABORATORY | | | (LAB) | | | SERVICES, | | | | | | CORE | | + +---------+ + + + | CHLORIDE, | 105 | 97 - 108 mmol/L | [facility] [...] | + + + + + | [facility] [employer] | [address] | [place] [address] | | | SERVICES, CORE | [address] | | | + + + + + CBC (HEMOGRAM) ONLY (09/10/2019 6:05 AM PDT) + + + + + + | Component | Value | Ref Range | Performed | Pathologist | | | | | At | Signature | + + + + + + | WHITE CELL | 5.90 | 3.50 - 10.80 | [facility] | | | COUNT | | K/cu mm | LABORATORY | | | | | | SERVICES, | | | | | | CORE | | + + + + + + | RED CELL | 3.63 (L) | 4.50 - 6.00 | [facility] | | | COUNT | | M/cu mm | LABORATORY | | | | | | SERVICES, | | | | | | CORE | | + + + + + + | HEMOGLOBIN | 8.9 (L) | 13.5 - 17.5 | [facility] | | | | | g/dL | LABORATORY | | | | | | SERVICES, | | | | | | CORE | | + + + + + + | HEMATOCRIT | 29.2 (L) | 41.0 - 53.0 % | [facility] | | | | | | LABORATORY | | | | | | SERVICES, | | | | | | CORE | | + + + + + + | MCV | 80.4 | 80.0 - 100.0 fL | [facility] | | | | | | LABORATORY | | | | | | SERVICES, | | | | | | CORE | | + + + + + + | MCHC | 30.5 (L) | 32.0 - 36.0 | [facility] | [...] + + + + | PLATELET | 388 | 150 - 400 K/cu | [facility] [...] | + + + + + | [facility] | [address] | [place] [address] | | | SERVICES, CORE | [address] | | | + + + + + BASIC METABOLIC SET (NA, K, CL, TCO2, BUN, CR, GLU, CA) (09/10/2019 6:05 AM PDT) + +---------+ + + + | Component | Value | Ref Range | Performed | Pathologist | | | | | At | Signature | + +---------+ + + + | GLUCOSE, | 98 | 70 - 99 mg/dL | [facility] [...] +---------+ + + + | CREATININE | 0.97 | 0.70 - 1.30 | [facility] | | | PLASMA | | mg/dL | LABORATORY | | | (LAB) | | | SERVICES, | | | | | | CORE | | + +---------+ + + + | EGFR | >60 | >60 mL/min | [facility] | | | - | | | LABORATORY | | | [place] | | | SERVICES, | | | | | | CORE | | + +---------+ + + + | EGFR NON | >60 | >60 mL/min | [facility] | | | -[facility] | | | LABORATORY | | | [place] | | | SERVICES, | | | | | | CORE | | + +---------+ + + + | SODIUM, | 141 | 136 - 145 | [facility] | [...] +---------+ + + + | CALCIUM, | 8.4 [...] MDRD equation recommended by the National | [facility] | | Kidney Disease Education Program. Estimated [...] | + + + + + | [facility] | [address] | [place] [address] | | | SERVICES, CORE | [address] | | | + + + + + X-RAY PORTABLE CHEST PICC LINE CHECK (09/09/2019 7:29 PM PDT) + + | Specimen | + + | | + + + + + | Narrative | Performed At | + + + | EXAM: CA CHEST PICC LINE CHECK HISTORY: Verify Catheter tip; | [facility] | | Catheter pulled back after inital cheat film. Need to verify | RADIOLOGY VOICE | | catheter tip placement now that line has been adjusted. | RECOGNITION 2 | | COMPARISON: 09/09/2019 FINDINGS: Left PICC in the superior vena | | | cava with tip in the region of the superior cavoatrial junction. | | | Small right pleural effusion and associated atelectasis with stable | | | elevation of the right hemidiaphragm. No pneumothorax. No pulmonary | | | edema. The cardiomediastinal silhouette is stable in appearance. | | | The fixation instrumentation seen in the left humerus. No new acute | | | osseous abnormality. IMPRESSION: Left PICC with tip in the | | | region of the superior cavoatrial junction. Small right pleural | | | effusion and associated atelectasis with stable elevation of the right | | | hemidiaphragm. I have personally reviewed the images and, if | | | necessary, edited the report. I agree with the report as now | | | presented. Final signature: Radha Santoyo MD 09/09/2019 8:45 | | | PM Preliminary: Radha Santoyo MD Dictation initiated: Radha Tam | Yonatan Santoyo MD 09/09/2019 8:43 PM | | + + + + + | Procedure Note | + + | Service Account, Radiant Res In Interface - 09/09/2019 8:46 PM PDT EXAM: CA CHEST | | PICC LINE CHECK HISTORY: Verify Catheter tip; Catheter pulled back after inital cheat | | film. Need to verify catheter tip placement now that line has been adjusted. | | COMPARISON: 09/09/2019 FINDINGS: Left PICC in the superior vena cava with tip in the | | region of the superior cavoatrial junction. Small right pleural effusion and associated | | atelectasis with stable elevation of the right hemidiaphragm. No pneumothorax. No | | pulmonary edema. The cardiomediastinal silhouette is stable in appearance. The fixation | | instrumentation seen in the left humerus. No new acute osseous abnormality. IMPRESSION: | | Left PICC with tip in the region of the superior cavoatrial junction. Small right | | pleural effusion and associated atelectasis with stable elevation of the right | | hemidiaphragm. I have personally reviewed the images and, if necessary, edited the | | report. I agree with the report as now presented. Final signature: Radha Santoyo MD | | 09/09/2019 8:45 PM Preliminary: Radha Santoyo MD Dictation initiated: Radha Santoyo | | 09/09/2019 8:43 PM | |Left PICC with tip in the region of the superior cavoatrial junction. | | | |Small right pleural effusion and associated atelectasis with stable elevation of the right hemidiaphragm. | | | |I have personally reviewed the images and, if necessary, edited the report. I agree with th e report as now presented. | | | |Final signature: Radha Santoyo MD 09/09/2019 8:45 PM | |Preliminary: Radha Santoyo MD | |Dictation initiated: Radha Santoyo MD 09/09/2019 8:43 PM | + + + +---------+ + + | Performing | Address | City/State/Zipcode | Phone Number | | Organization | | | | + +---------+ + + | [facility] | | | | | VOICE RECOGNITION 2 | | | | + +---------+ + + X-RAY PORTABLE CHEST 1 VIEW (09/09/2019 3:24 PM PDT) + + | Specimen | + + | | + + + + + | Narrative | Performed At | + + + | EXAM: CA CHEST 1 VIEW HISTORY: PICC placement COMPARISON: | [facility] | | None. FINDINGS: Left PICC terminates in the IVC, | RADIOLOGY VOICE | | approximately 7 cm below the cavoatrial junction,. The | RECOGNITION 2 | | cardiomediastinal contour is enlarged. There is elevation and tenting | | | of the right hemidiaphragm with associated compressive atelectasis, | | | with an upper lobe medial opacity. There is no pleural effusion or | | | pneumothorax. There is no pulmonary edema. Humeral head fixation is | | | noted, with no acute osseous abnormalities. IMPRESSION: Left | | | PICC terminates in the IVC approximately 7 cm below the cavoatrial | | | junction, recommend retraction. Right hemidiaphragmatic elevation | | | may be attributable to right hemidiaphragmatic eventration. Comparison | | | with prior imaging and/or 2 view radiograph suggested.. I have | | | personally reviewed the images and, if necessary, edited the report. I | | | agree with the report as now presented. Final signature: | | | Lalita Guerra MD 09/09/2019 4:45 PM Preliminary: Fannie | | | MD Scar Dictation initiated: Fannie Abbott MD | | | 09/09/2019 4:04 PM | | + + + + + | Procedure Note | + + | Service Account, Radiant Res In Interface - 09/09/2019 4:46 PM PDT EXAM: CA CHEST 1 | | VIEW HISTORY: PICC placement COMPARISON: None. FINDINGS: Left PICC terminates in the | | IVC, approximately 7 cm below the cavoatrial junction,. The cardiomediastinal contour is | | enlarged. There is elevation and tenting of the right hemidiaphragm with associated | | compressive atelectasis, with an upper lobe medial opacity. There is no pleural effusion | | or pneumothorax. There is no pulmonary edema. Humeral head fixation is noted, with no | | acute osseous abnormalities. IMPRESSION: Left PICC terminates in the IVC approximately 7 | | cm below the cavoatrial junction, recommend retraction. Right hemidiaphragmatic | | elevation may be attributable to right hemidiaphragmatic eventration. Comparison with | | prior imaging and/or 2 view radiograph suggested.. I have personally reviewed the images | | and, if necessary, edited the report. I agree with the report as now presented. Final | | signature: Lalita Guerra MD 09/09/2019 4:45 PM Preliminary: Fannie Abbott MD | | Dictation initiated: Fannie Abbott MD 09/09/2019 4:04 PM | |IMPRESSION: | | | |Left PICC terminates in the IVC approximately 7 cm below the cavoatrial junction, recommend retraction. | | | |Right hemidiaphragmatic elevation may be attributable to right hemidiaphragmatic eventratio n. Comparison with prior imaging and/or 2 view radiograph suggested.. | | | |I have personally reviewed the images and, if necessary, edited the report. I agree with th e report as now presented. | | | |Final signature: Lalita Guerra MD 09/09/2019 4:45 PM | |Preliminary: Fannie Abbott MD | |Dictation initiated: Fannie Abbott MD 09/09/2019 4:04 PM | + + + +---------+ + + | Performing | Address | City/State/Zipcode | Phone Number | | Organization | | | | + +---------+ + + | [facility] | | | | | VOICE RECOGNITION 2 | | | | + +---------+ + + PICC LINE (09/09/2019 2:53 PM PDT) + + + | Narrative | Performed At | + + + | Yenifer Crouch RN 09/09/2019 3:30 PM PICC LINE Performed | | | by: Yenifer Crouch RN Authorized by: Tiffanie Huerta MD | | | PICC/Midline Insertion Procedure Note Indications:Antibiotics | | | Diagnosis: Cellulitis LE Procedure location: Unit: Room: [facility] | | | Providers: Attending name: Attending physically present: No PICC | | | Nurse name: Yenifer Barboza RN BSN VAT Assisted by Marty | | | [employer] VAT Pre-Procedure Consent: written consent | | | obtained Consent given by: Patient Patient identity confirmed per | | | protocol: Yes Team Pause: Immediatly prior to the procedure a pause | | | per protocol was called. A pause verifies correct patient, | | | procedure, equipment, bioinformatics support specialist and site/side marked as | | | required. CLABSI Prevention Bundle: Skin preparation: | | | Chloraprep Protective barrier: Cap, Mask, Hand scrub, Gown, | | | Gloves and Full body drape. Cap and mask worn by assistive | | | personnel.Sterile Ultrasound techniques (sterile gel, and sterile | | | probe cover) used Dressing: Dressing | | | applied prior of removal of full barrier drape and hemostatic agent | | | applied Sedation/Anesthesia/Analgesia Local Anesthetic: Lidocaine | | | 1% w/o epinephrine Anesthetic total (ml): 1 Procedure | | | Details Patient was placed in appropriate position The vascular | | | anatomy was identified by Ultrasound Guidance.wire through the | | | needle, introducer over the wire, then catheter through the introducer | | | Tip was placed using TLS (Tip Locating System) and TPS (Tip | | | Positioning System). . A non-tunneled PICC Single lumen 4 Fr | | | was placed in the Arm area Basilic vein. Catheter lot number: | | | [id number] with a length of 55 cm was selected and trimmed 0 to a | | | remaining length of 55 cm All ports aspirated for blood and | | | flushed with saline Procedure comments: W/o tourniquet the Left | | | basilic measured 0.37 cm in diameter, and the L arm had a | | | circumference of 27 cm at 10 cm above the AC Open-ended or valved | | | line: Valved Power-injectable line: yes Attempts 1 attempt(s) were | | | made Complications None PICC catheter tip location Chest | | | radiograph ordered to verify placement and Line verified by | | | radiograph Adjustments made after chest film obtained: Line pulled | | | back 4cm after initial chest film to place PICC tip at the CAJJ | | | External measurement of catheter exposed: 7 cm. PICC catheter tip | | | location: Cavo-Atrial Junction Estimated blood loss: <10mL | | + + + VAT: PICC INSERTION W/US (09/09/2019 2:03 PM PDT) + + | Specimen | + + | | + + + + + | Narrative | Performed At | + + + | See procedure note. | [facility] | | | RADIOLOGY | + + + + +---------+ + + | Performing | Address | City/State/Zipcode | Phone Number | | Organization | | | | + +---------+ + + | [facility] | | | | + +---------+ + + VANCOMYCIN, TROUGH (09/09/2019 11:26 AM PDT) + + + + + + | Component | Value | Ref Range | Performed | Pathologist | | | | | At | Signature | + + + + + + | VANCOMYCIN, | 21.6 (H) | 10.0 - 20.0 | [facility] | | | TROUGH | | ug/mL | LABORATORY | | | | | [...] + | [facility] | [address] | [place] [address] | | | SERVICES, CORE | [address] | | | + + + + + C-REACTIVE PROTEIN (09/09/2019 5:18 AM PDT) + + + + + + | Component | Value | Ref Range | Performed | Pathologist | | | | | At | Signature | + + + + + + | C-REACTIVE | 70.8 (H) | <10.0 mg/L | [facility] | [...] | + + + + + | [facility] | [address] | [place] [address] | | | SERVICES, CORE | [address] | | | + + + + + SEDIMENTATION RATE (09/09/2019 5:18 AM PDT) + +--------+ + + + | Component | Value | Ref Range | Performed | Pathologist | | | | | At | Signature | + +--------+ + + + | SEDIMENTATI | 78 (H) | 0 - 20 mm/hr | [...] + | [facility] | [address] | [place] [address] | | | VJ, CORE | [address] | | | + + + + + VANCOMYCIN, TROUGH (09/08/2019 11:05 PM PDT) + + + + + + | Component | Value | Ref Range | Performed | Pathologist | | | | | At | Signature | + + + + + + | VANCOMYCIN, | 21.1 (H) | 10.0 - 20.0 | [facility] | | | TROUGH | | ug/mL | LABORATORY | | | | | [...] | + + + + + | [facility] | [address] | [place] [address] | | | SERVICES, CORE | [address] | | | + + + + + X-RAY TIBIA & FIBULA 2 VIEWS LT (09/08/2019 1:56 PM PDT) + + | Specimen | + + | | + + + + + | Narrative | Performed At | + + + | EXAM: TIBIA AND FIBULA 2 VIEWS LT HISTORY: s/p Hardware Removal | [facility] | | COMPARISON: 09/03/2019 FINDINGS: There has been interval | RADIOLOGY VOICE | | fasciotomy and left ankle hardware removal with placement of a | RECOGNITION 2 | | retrograde antibiotic nail. 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 | | | There is no acute fracture. No aggressive focal bone destruction is | | | identified. The joint spaces of the knee are maintained. The extensive | | | subcutaneous edema has decreased. IMPRESSION: Interval left | | | ankle hardware removal and antibiotic nail placement with decreased | | | subcutaneous edema. No aggressive bone destruction identified. I | | | have personally reviewed the images and, if necessary, edited the | | | report. I agree with the report as now presented. Final | | | signature: Bernarda Street MD 09/08/2019 3:15 PM Preliminary: | | | Damion Baxter DO Dictation initiated: Damion Baxter DO | | | 09/08/2019 2:20 PM | | + + + + + | Procedure Note | + + | Service Account, Radiant Res In Interface - 09/08/2019 3:17 PM PDT EXAM: TIBIA AND | | FIBULA 2 VIEWS LT HISTORY: s/p Hardware Removal COMPARISON: 09/03/2019 FINDINGS: There | | has been interval fasciotomy and left ankle hardware removal with placement of a | | retrograde antibiotic nail. There is unchanged posttraumatic/postsurgical ankle | | deformity with osseous tibiotalar fusion; the subtalar joint remains narrowed but is | | partially outlined. There is no acute fracture. No aggressive focal bone destruction is | | identified. The joint spaces of the knee are maintained. The extensive subcutaneous | | edema has decreased. IMPRESSION: Interval left ankle hardware removal and antibiotic | | nail placement with decreased subcutaneous edema. No aggressive bone destruction | | identified. I have personally reviewed the images and, if necessary, edited the report. | | I agree with the report as now presented. Final signature: Bernarda Street MD | | 09/08/2019 3:15 PM Preliminary: Damion Baxter DO Dictation initiated: Damion Baxter DO 09/08/2019 2:20 PM | |Interval left ankle hardware removal and antibiotic nail placement with decreased subcutane ous edema. No aggressive bone destruction identified. | | | |I have personally reviewed the images and, if necessary, edited the report. I agree with e report as now presented. | | | |Final signature: Bernarda Street MD 09/08/2019 3:15 PM | |Preliminary: Damion Baxter DO | |Dictation initiated: Damion Baxter DO 09/08/2019 2:20 PM | + + + +---------+ + + | Performing | Address | City/State/Zipcode | Phone Number | | Organization | | | | + +---------+ + + | [facility] | | | | | VOICE RECOGNITION 2 | | | | + +---------+ + + CBC (HEMOGRAM) ONLY (09/08/2019 4:52 AM PDT) + + + + + + | Component | Value | Ref Range | Performed | Pathologist | | | | | At | Signature | + + + + + + | WHITE CELL | 5.51 | 3.50 - 10.80 | [facility] | | | COUNT | | K/cu mm | LABORATORY | | | | | | SERVICES, | | | | | | CORE | | + + + + + + | RED CELL | 3.62 (L) | 4.50 - 6.00 | [facility] | | | COUNT | | M/cu mm | LABORATORY | | | | | | SERVICES, | | | | | | CORE | | + + + + + + | HEMOGLOBIN | 8.8 (L) | 13.5 - 17.5 | [facility] | | | | | g/dL | LABORATORY | | | | | | SERVICES, | | | | | | CORE | | + + + + + + | HEMATOCRIT | 29.3 (L) | 41.0 - 53.0 % | [facility] | | | | | | LABORATORY | | | | | | SERVICES, | | | | | | CORE | | + + + + + + | MCV | 80.9 | 80.0 - 100.0 fL | [facility] | | | | | | LABORATORY | | | | | | SERVICES, | | | | | | CORE | | + + + + + + | MCHC | 30.0 (L) | 32.0 - 36.0 | [facility] | | | | | g/dL | LABORATORY | | | | | | SERVICES, | | | | | | CORE | | + + + + + + | RDW SD | 44.2 | 35.1 - 46.3 fL | [facility] | | | | | | LABORATORY | | | | | | SERVICES, | | | | | | CORE | | + + + + + + | PLATELET | 306 | 150 - 400 K/cu | [facility] [...] + | [facility] | [address] | [place] [address] | | | SERVICES, CORE | [address] | | | + + + + + BASIC METABOLIC SET (NA, K, CL, TCO2, BUN, CR, GLU, CA) (09/08/2019 4:52 AM PDT) + +---------+ + + + | Component | Value | Ref Range | Performed | Pathologist | | | | | At | Signature | + +---------+ + + + | GLUCOSE, | 95 | 70 - 99 mg/dL | [facility] [...] +---------+ + + + | CREATININE | 0.80 | 0.70 - 1.30 | [facility] | | | PLASMA | | mg/dL | LABORATORY | | | (LAB) | | | SERVICES, | | | | | | CORE | | + +---------+ + + + | EGFR | >60 | >60 mL/min | [facility] | | | - | | | LABORATORY | | | [facility] | | | SERVICES, | | | [...] +---------+ + + + | POTASSIUM, | 3.9 | 3.4 - 5.0 | [facility] | | | PLASMA | | mmol/L | LABORATORY | | | (LAB) | | | SERVICES, | | | | | | CORE | | + +---------+ + + + | CHLORIDE, | 108 | 97 - 108 mmol/L | [facility] | | | PLASMA | | | LABORATORY | | | (LAB) | | | SERVICES, | | | | | | CORE | | + +---------+ + + + | TOTAL CO2, | 24 | 21 - 32 mmol/L | [facility] | | | PLASMA | | | LABORATORY | | | (LAB) | | | SERVICES, | | | | | | CORE | | + +---------+ + + + | CALCIUM, | 8.0 (L) | 8.6 - 10.2 | [facility] | | | PLASMA | | mg/dL | LABORATORY | | | (LAB) | | | SERVICES, | | | | | | CORE | | + +---------+ + + + | ANION GAP | 6 | 4 - 11 mmol/L | [facility] [...] MDRD equation recommended by the National | [facility] | | Kidney Disease Education Program. Estimated GFR Interpretive | LABORATORY | | Information: <60 mL/min/1.73 sq m Chronic Kidney | SERVICES, [facility] | | Disease <15 mL/min/1.73 sq m [...] | + + + + + | [facility] | [address] | [place] [address] | | | SERVICES, [facility] | [address] | | | + + + + + VANCOMYCIN, TROUGH (09/07/2019 11:08 AM PDT) + + + + + + | Component | Value | Ref Range | Performed | Pathologist | | | | | At | Signature | + + + + + + | VANCOMYCIN, | 21.6 (H) | 10.0 - 20.0 | [facility] | | | TROUGH | | ug/mL | LABORATORY | | | | | [...] | + + + + + | [facility] | [address] | [place] [address] | | | SERVICES, CORE | [address] | | | + + + + + CARDIOLOGY (09/07/2019 12:00 AM PDT) + + + | Narrative | Performed At | + + + | | | + + + CAPILLARY BLOOD GLUCOSE (NO CHG), POC (09/06/2019 2:00 PM PDT) + +---------+ + + + | Component | Value | Ref Range | Performed | Pathologist | | | | | At | Signature | + +---------+ + + + | BLOOD | 112 (H) | 70 - 99 mg/dL | [facility] - | | | GLUCOSE, | | | [place] | | | POC | | | [place], POINT | | | | | | OF [...] + | [facility] | [address] | [place], [place] | | | [facility] | [facility] | [address] | | | TESTS | | | | + + + + + CBC (HEMOGRAM) ONLY (09/06/2019 4:20 AM PDT) + + + + + + | Component | Value | Ref Range | Performed | Pathologist | | | | | At | Signature | + + + + + + | WHITE CELL | 6.77 | 3.50 - 10.80 | [facility] | | | COUNT | | K/cu mm | LABORATORY | | | | | | SERVICES, | | | | | | CORE | | + + + + + + | RED CELL | 3.72 (L) | 4.50 - 6.00 | [facility] | | | COUNT | | M/cu mm | LABORATORY | | | | | | SERVICES, | | | | | | CORE | | + + + + + + | HEMOGLOBIN | 9.1 (L) | 13.5 - 17.5 | [facility] | | | | | g/dL | LABORATORY | | | | | | SERVICES, | | | | | | CORE | | + + + + + + | HEMATOCRIT | 30.0 (L) | 41.0 - 53.0 % | [facility] | | | | | | LABORATORY | | | | | | SERVICES, | | | | | | CORE | | + + + + + + | MCV | 80.6 | 80.0 - 100.0 fL | [facility] | | | | | | LABORATORY | | | | | | SERVICES, | | | | | | CORE | | + + + + + + | MCHC | 30.3 (L) | 32.0 - 36.0 | [facility] | | | | | g/dL | LABORATORY | | | | | | SERVICES, | | | | | | CORE | | + + + + + + | RDW SD | 43.5 | 35.1 - 46.3 fL | [facility] [...] + + + + | MPV | 9.7 | 9.7 - 12.3 fL | [facility] [...] | + + + + + | [facility] | [address] | [place] [address] | | | VJ, CORE | [address] | | | + + + + + BASIC METABOLIC SET (NA, K, CL, TCO2, BUN, CR, GLU, CA) (09/06/2019 4:20 AM PDT) + +---------+ + + + | Component | Value | Ref Range | Performed | Pathologist | | | | | At | Signature | + +---------+ + + + | GLUCOSE, | 136 (H) | 70 - 99 mg/dL | [facility] | | | PLASMA | | | LABORATORY | | | (LAB) | | | SERVICES, | | | | | | CORE | | + +---------+ + + + | BUN, PLASMA | 13 | 6 - 20 mg/dL | [facility] | | | (LAB) | | | LABORATORY | | | | | | SERVICES, | | | | | | CORE | | + +---------+ + + + | CREATININE | 0.86 | 0.70 - 1.30 | [facility] | | | PLASMA | | mg/dL | LABORATORY | | | (LAB) | | | SERVICES, | | | | | | CORE | | + +---------+ + + + | EGFR | >60 | >60 mL/min | [facility] | | | - | | | LABORATORY | | | [facility] | | | SERVICES, | | | [...] +---------+ + + + | POTASSIUM, | 3.9 | 3.4 - 5.0 | [facility] | | | PLASMA | | mmol/L | LABORATORY | | | (LAB) | | | SERVICES, | | | | | | CORE | | + +---------+ + + + | CHLORIDE, | 108 | 97 - 108 mmol/L | [facility] [...] +---------+ + + + | CALCIUM, | 8.1 (L) | 8.6 - 10.2 | [facility] [...] MDRD equation recommended by the National | [facility] | | Kidney Disease Education Program. Estimated [...] | + + + + + | [facility] | [address] | [place] [address] | | | SERVICES, CORE | [address] | | | + + + + + CARDIOLOGY (09/06/2019 12:00 AM PDT) + + + | Narrative | Performed At | + + + | | | + + + CARDIOLOGY (09/06/2019 12:00 AM PDT) + + + | Narrative | Performed At | + + + | | | + + + CARDIOLOGY (09/06/2019 12:00 AM PDT) + + + | Narrative | Performed At | + + + | | | + + + ANTIBODY SCREEN (09/05/2019 7:47 PM PDT) + + + + + [...] + | [facility] | [address] | [place] [address] | | | SERVICES, | [address] | | | | TRANSFUSION MEDICINE | | | | + + + + + ABO & RH TYPE (09/05/2019 7:47 PM PDT) + + + + + [...] + | [facility] | [address] | [place] [address] | | | SERVICES, | [address] | | | | TRANSFUSION MEDICINE | | | | + + + + + VASC LAB ANKLE BRACH INDICS W WAVEFORM BILAT (09/05/2019 1:51 PM PDT) + + | Specimen | + + | | + + + + + | Narrative | Performed At | + + + | Bilateral: The brachial blood pressures are 111 mmHg on the right | [facility] | | and 113 mmHg on the left. In the right leg, there is a palpable | RADIOLOGY VASC | | posterior tibial and dorsal pedal pulse. Doppler derived waveforms are | US | | multiphasic at the ankle. The ankle pressures are 177 mmHg in the | | | posterior tibial and 104 mmHg in the dorsal pedal artery. The ankle | | | brachial index is 1.57. The 1st digit pressure is 91 mmHg with a toe | | | brachial index of 0.81. In the left leg, Doppler derived waveforms of | | | the dorsalis pedis artery is biphasic. The posterior tibial could not | | | be located due to presence of a wound vac. The ankle pressures could | | | not be obtained due to presence of a wound vac/drain. The ankle | | | brachial index could not be obtained as described. The 1st digit | | | pressure is 44 mmHg with a toe brachial index of 0.39. | | | Conclusions: A single level physiologic study. The ankle brachial | | | index is supranormal on the right, 1.57. The left ankle/brachial | | | index could not be obtained as described above. I have | | | personally reviewed the images and, if necessary, edited the report. | | | I agree with the report as now presented. | | + + + + + | Procedure Note | + + | Service Account, Radiant Res In Interface - 09/05/2019 4:57 PM PDT Bilateral: The | | brachial blood pressures are 111 mmHg on the right and 113 mmHg on the left.In the right | | leg, there is a palpable posterior tibial and dorsal pedal pulse. Doppler derived | | waveforms are multiphasic at the ankle. The ankle pressures are 177 mmHg in the | | posterior tibial and 104 mmHg in the dorsal pedal artery. The ankle brachial index is | | 1.57. The 1st digit pressure is 91 mmHg with a toe brachial index of 0.81.In the left | | leg, Doppler derived waveforms of the dorsalis pedis artery is biphasic. The posterior | | tibial could not be located due to presence of a wound vac. The ankle pressures could | | not be obtained due to presence of a wound vac/drain. The ankle brachial index could not | | be obtained as described. The 1st digit pressure is 44 mmHg with a toe brachial index | | of 0.39.Conclusions: A single level physiologic study.The ankle brachial index is | | supranormal on the right, 1.57.The left ankle/brachial index could not be obtained as | | described above.I have personally reviewed the images and, if necessary, edited the | | report. I agree with the report as [...] + VASC LAB VENOUS DUPLEX LOWER EXTREMITY LT (09/05/2019 1:48 PM PDT) + + | Specimen | + + | | + + + + + | Narrative | Performed At | + + + | Left: The duplex scanner was used to examine the deep and | [facility] | | superficial veins of the left lower extremity. The left calf | RADIOLOGY VASC | | veins could not be visualized due to swelling and presence of a wound | US | | vac and transparent dressing. All other veins are patent with normal | | | flow and responses to augmentation and compression maneuvers and no | | | other thrombus is noted. There are multiple enlarged echogenic | | | structures in the left groin with the largest measuring 4.3 cm x 3.1 | | | cm x 1.6 cm. The right leg common femoral vein was examined and is | | | patent with normal flow. Conclusions: A venous examination of | | | the left lower extremity. No venous thrombosis detected. The left calf | | | veins could not be identified as described. The limitations of the | | | examination described above indicate that the examination does not | | | conclusively exclude the presence of deep venous thrombosis (DVT). If | | | clinical circumstances continue to suggest the presence of possible | | | DVT a follow-up examination is suggested in 3 to 5 days. There are | | | multiple enlarged echogenic structures in the left groin with the | | | largest measuring 4.3 cm x 3.1 cm x 1.6 cm. The right lower extremity | | | was not examined. I have personally reviewed the images | | | and, if necessary, edited the report. I agree with the report as | | | now presented. | | + + + + + | Procedure Note | + + | Service Account, Radiant Res In Interface - 09/05/2019 4:56 PM PDT Left: The duplex | | scanner was used to examine the deep and superficial veins of the left lower extremity. | | The left calf veins could not be visualized due to swelling and presence of a wound | | vac and transparent dressing. All other veins are patent with normal flow and responses | | to augmentation and compression maneuvers and no other thrombus is noted. There are | | multiple enlarged echogenic structures in the left groin with the largest measuring 4.3 | | cm x 3.1 cm x 1.6 cm.The right leg common femoral vein was examined and is patent with | | normal flow.Conclusions: A venous examination of the left lower extremity. No venous | | thrombosis detected. The left calf veins could not be identified as described. The | | limitations of the examination described above indicate that the examination does not | | conclusively exclude the presence of deep venous thrombosis (DVT). If clinical | | circumstances continue to suggest the presence of possible DVT a follow-up examination | | is suggested in 3 to 5 days.There are multiple enlarged echogenic structures in the left | | groin with the largest measuring 4.3 cm x 3.1 cm x 1.6 cm.The right lower extremity was | | not examined. I have personally reviewed the images and, if necessary, edited the | | report. I agree with the report as now presented. | + + + +---------+ + + | Performing | Address | City/State/Zipcode | Phone Number | | Organization | | | | + +---------+ + + | [facility] | | | | | VASC US | | | | + +---------+ + + RBC MORPHOLOGY (09/05/2019 5:00 AM PDT) + + + + + + | Component | Value | Ref Range | Performed | Pathologist | | | | | At | Signature | + + + + + + | ANISOCYTOSI | 1+(10-25cells/HPF) | | [facility] | | | S | | | LABORATORY | | | | | | SERVICES, | | | | | | CORE | | + + + + + + | MICROCYTOSI | 1+(10-25cells/HPF) | | [facility] | | | S | | | LABORATORY | | | [...] | + + + + + | [facility] [employer] | [address] | [place] [address] | | | SERVICES, CORE | [address] | | | + + + + + CBC AND AUTO DIFF (09/05/2019 5:00 AM PDT) + + + + + + | Component | Value | Ref Range | Performed | Pathologist | | | | | At | Signature | + + + + + + | WHITE CELL | 6.34 | 3.50 - 10.80 | [facility] | [...] + + + + | HEMOGLOBIN | 8.8 (L) | 13.5 - 17.5 | [facility] | | | | | g/dL | LABORATORY | | | | | | SERVICES, | | | | | | CORE | | + + + + + + | HEMATOCRIT | 28.4 (L) | 41.0 - 53.0 % | [facility] | | | | | | LABORATORY | | | | | | SERVICES, | | | | | | CORE | | + + + + + + | MCV | 79.8 (L) | 80.0 - 100.0 fL | [facility] | | | | | | LABORATORY | | | | | | SERVICES, | | | | | | CORE | | + + + + + + | MCHC | 31.0 (L) | 32.0 - 36.0 | [facility] | | | | | g/dL | LABORATORY | | | | | | SERVICES, | | | | | | CORE | | + + + + + + | RDW SD | 43.8 | 35.1 - 46.3 fL | [facility] | | | | | | LABORATORY | | | | | | SERVICES, | | | | | | CORE | | + + + + + + | PLATELET | 304 | 150 - 400 K/cu | [facility] [...] + + + + + + | NEUTROPHIL | 76.0 (H) | 50.0 - 70.0 % | [facility] | | | % | | | LABORATORY | | | | | | SERVICES, | | | | | | CORE | | + + + + + + | LYMPHOCYTE | 6.2 (L) | 18.0 - 42.0 % | [facility] | | | % | | | LABORATORY | | | | | | SERVICES, | | | | | | CORE | | + + + + + + | MONOCYTE % | 9.9 (H) | 3.5 - 9.0 % | [facility] | | | | | | LABORATORY | | | | | | SERVICES, | | | | | | CORE | | + + + + + + | EOS % | 6.8 (H) | 1.0 - 3.0 % | [facility] | | | | | | LABORATORY | | | | | | SERVICES, | | | | | | CORE | | + + + + + + | BASO % | 0.8 | 0.0 - 2.0 % | [facility] | | | | | | LABORATORY | | | | | | SERVICES, | | | | | | CORE | | + + + + + + | IG% | 0.3 | 0.0 - 1.0 % | [facility] | | | | | | LABORATORY | | | | | | SERVICES, | | | | | | CORE | | + + + + + + | NEUTROPHIL | 4.82 | 1.80 - 7.70 | [facility] | | | # | | K/cu mm | LABORATORY | | | | | | SERVICES, | | | | | | CORE | | + + + + + + | LYMPHOCYTE | 0.39 (L) | 1.00 - 4.80 | [facility] | | | # | | K/cu mm | LABORATORY | | | | | | SERVICES, | | | | | | CORE | | + + + + + + | MONOCYTE # | 0.63 | 0.10 - 0.90 | [facility] | | | | | K/cu mm | LABORATORY | | | | | | SERVICES, | | | | | | CORE | | + + + + + + | EOS # | 0.43 | 0.00 - 0.50 | [facility] | | | | | K/cu mm | LABORATORY | | | | | | SERVICES, | | | | | | CORE | | + + + + + + | BASO # | 0.05 | 0.00 - 0.10 | [facility] | | | | | K/cu mm | LABORATORY | | | | | | SERVICES, | | | | | | CORE | | + + + + + + | IG# | 0.02 | 0.00 - 0.10 | [facility] | | | | | K/cu mm | LABORATORY | | | | | | SERVICES, | | | | | | CORE | | + + + + + + + + | Specimen | + + | Blood - Blood | | (substance) | + + + + + | Narrative | Performed At | + + + | Increased immature granulocytes (IG) define a left shift. Immature | [facility] | | granulocytes (IG) are an automated count of metamyelocytes, myelocytes | LABORATORY | | and promyelocytes. Bands are not included in the IG count. Bands are | SERVICES, CORE | | included in the neutrophil count. | | + + + + + + + + | Performing | Address | City/State/Zipcode | Phone Number | | Organization | | | | + + + + + | [facility] | [address] | [place] [address] | | | SERVICES, CORE | [address] | | | + + + + + CARDIOLOGY (09/05/2019 12:00 AM PDT) + + + | Narrative | Performed At | + + + | | | + + + PROCEDURE NOTE (09/04/2019 11:55 PM PDT)12 LEAD ECG (09/04/2019 4:14 PM PDT) + + + + + + | Component | Value | Ref Range | Performed | Pathologist | | | | | At | Signature | + + + + + + | VENTRICULAR | 96 | bpm | [facility] | | | RATE | | | OF | | | | | | CARDIOLOGY | | + + + + + + | ATRIAL RATE | 126 | ms | [facility] | | [...] + + + + | QRS | 86 | ms | [facility] | | | DURATION | | | OF | | | | | | CARDIOLOGY | | + + + + + + | QT | 402 | ms | [facility] | | | | | | OF | | | | | | CARDIOLOGY | | + + + + + + | QTC-JENNIFER | 507 | ms | [facility] | | | | | | OF | | | | | | CARDIOLOGY | | + + + + + + | R AXIS | -75 | deg | [facility] | | | | | | OF | | | | | | CARDIOLOGY | | + + + + + + | T AXIS | | | [facility] | | | | | | OF | | | | | | CARDIOLOGY | | + + + + + + | ECG | Atrial fibrillation | | [facility] | | | IMPRESSION | | | OF | | | | | | CARDIOLOGY | | + + + + + + | 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, old | | [facility] | | | IMPRESSION | | | OF | | | | | | CARDIOLOGY | | + + + + + + | ECG | Prolonged QT interval- | | [facility] | | | IMPRESSION | ABNORMAL ECG - | | OF | | | | | | CARDIOLOGY | | + + + + + + | ECG | Electronically signed | | [facility] | | | IMPRESSION | by: ROLY HAWK | | OF | | | | 09-04-2019 18:29:48 | | CARDIOLOGY | | + + [...] + + + + + | [facility] | [address] | [place], [place] | | | CARDIOLOGY | [address] | [address] | | + + + + + CAPILLARY BLOOD GLUCOSE (NO CHG), POC (09/04/2019 2:01 PM PDT) + +-------+ + + + | Component | Value | Ref Range | Performed | Pathologist | | | | | At | Signature | + +-------+ + + + | BLOOD | 89 | 70 - 99 mg/dL | [facility] - | | | GLUCOSE, | | | [facility] | | | POC | | | [facility] | | | | | | OF CARE | | | | | | TESTS | | + +-------+ + + + + + | Specimen | + + | Blood | + + + + + + + | Performing | Address | City/State/Zipcode | Phone Number | | Organization | | | | + + + + + | [facility] | [address] | [place], [place] | | | [facility] | [facility] | [address] | | | TESTS | | | | + + + + + X-RAY ANKLE 2 VIEWS LEFT (09/04/2019 1:18 PM PDT) + + | Specimen | [...] | | + +---------+ + + CULTURE, TISSUE-PROSTHETIC JOINT INFECTION [facility]ER AND SAMMIE (09/04/2019 12:21 PM PDT) + + + + + + | Component | Value | Ref Range | Performed | Pathologist | | | | | At | Signature | + + + + + + | CULTURE | Staphylococcus aureus, | | [facility] | | | RESULT | Methicillin Resistant | | [facility] - | | | | (A) | | [place] | | + + + + + + | CULTURE | Enterococcus faecalis | | [facility] | | | RESULT | (A) | | [facility] | | | | | | [place] | | + + + + + + + + | Specimen | + + | Tissue - Ankle | | region structure | | (body structure) | + + + + + | Narrative | Performed At | + + + | Culture Report: Methicillin Resistant Staphylococcus aureus | [facility] - | | Presumptive identification Refer to culture collected 09/04/2019 at | [facility] - | | 1221, site B for complete identification and susceptibilities | [place] | | Enterococcus faecalis Unable to continue culture for | | | Propionibacterium due to growth of other organsims. Gram Stain: | | | No squamous epithelial cells Rare polymorphonuclear cells No | | | organisms seen | | + + + + + + + + | Organism | Antibiotic | Method | Susceptibility | + + + + + | Enterococcus | Ampicillin | SUSCEPTIBILITY-MADI | Sensitive | | faecalis | | | | + + + + + | Enterococcus | Vancomycin | SUSCEPTIBILITY-MADI | Sensitive | | faecalis | | | | + + + + + + + + + + | Performing | Address | City/State/Zipcode | Phone Number | | Organization | | | | + + + + + | [facility] | [address] | [place] [address] | | | [place] | | | | + + + + + CULTURE, TISSUE-PROSTHETIC JOINT INFECTION AER AND SAMMIE (09/04/2019 12:21 PM PDT) + + | Specimen | + + | Tissue - Ankle | | region structure | | (body structure) | + + + + + | Narrative | Performed At | + + + | Culture Report: No growth at 14 Days Gram Stain: No squamous | [facility] - | | epithelial cells No polymorphonuclear cells No organisms seen | [facility] - | | | [place] | + + + + + + + + | Performing | Address | City/State/Zipcode | Phone Number | | Organization | | | | + + + + + | [facility] | [address] | [place] [address] | | | [facility] | | | | + + + + + CULTURE, TISSUE-PROSTHETIC JOINT INFECTION AER AND SAMMIE (09/04/2019 12:21 PM PDT) + + + + + + | Component | Value | Ref Range | Performed | Pathologist | | | | | At | Signature | + + + + + + | CULTURE | Staphylococcus aureus, | | [facility] | | | RESULT | Methicillin Resistant | | [facility] - | | | | (A) | | [place] | | + + + + + + | CULTURE | Enterococcus faecalis | | [facility] | | | RESULT | (A) | | [facility] - | | | | | | [place] | | + + + + + + + + | Specimen | + + | Tissue - Ankle | | region structure | | (body structure) | + + + + + | Narrative | Performed At | + + + | Culture Report: Methicillin Resistant Staphylococcus aureus | [facility] | | Presumptive identification Refer to culture [facility]2019 at [facility], site B for complete identification and susceptibilities | [place] | | Enterococcus faecalis Refer to culture collected 09/04/2019 at [facility], | | | site E for susceptibilities Unable to continue culture for | | | Propionibacterium due to growth of other organsims. Gram Stain: | | | No squamous epithelial cells Rare polymorphonuclear cells No | | | organisms seen | | + + + + + + + + | Performing | Address | City/State/Zipcode | Phone Number | | Organization | | | | + + + + + | [facility] | [address] | [place] [address] | | | [place] | | | | + + + + + CULTURE, TISSUE-PROSTHETIC JOINT INFECTION AER AND SAMMIE (09/04/2019 12:21 PM PDT) + + + + + + | Component | Value | Ref Range | Performed | Pathologist | | | | | At | Signature | + + + + + + | CULTURE | Staphylococcus aureus, | | [facility] | | | RESULT | Methicillin Resistant | | [facility] - | | | | (A) | | [place] | | + + + + + + | CULTURE | Corynebacterium striatum | | [facility] - | | | RESULT | (A) | | [facility] - | | | | | | [place] | | + + + + + + + + | Specimen | + + | Tissue - Ankle | | region structure | | (body structure) | + + + + + | Narrative | Performed At | + + + | Culture Report: Methicillin Resistant Staphylococcus aureus | [facility] - | | Corynebacterium striatum No Propionibacterium isolated Gram | [facility] - | | Stain: No squamous epithelial cells Rare polymorphonuclear cells | [facility] | | No organisms seen | | + + + + + + + + | Organism | Antibiotic | Method | Susceptibility | + + + + + | Staphylococcus | Vancomycin | SUSCEPTIBILITY - | Sensitive | | aureus, Methicillin | | E-TEST | | | Resistant | | | | + + + + + | Staphylococcus | Cefazolin | SUSCEPTIBILITY - KB | Resistant | | aureus, Methicillin | | | | | Resistant | | | | + + + + + | Staphylococcus | Clindamycin | SUSCEPTIBILITY - KB | Intermediate | | aureus, Methicillin | | | | | Resistant | | | | + + + + + | Staphylococcus | Erythromycin | SUSCEPTIBILITY - KB | Resistant | | aureus, Methicillin | | | | | Resistant | | | | + + + + + | Staphylococcus | Oxacillin | SUSCEPTIBILITY - KB | Resistant | | aureus, Methicillin | | | | | Resistant | | | | + + + + + | Staphylococcus | Penicillin | SUSCEPTIBILITY - KB | Resistant | | aureus, Methicillin | | | | | Resistant | | | | + + + + + | Staphylococcus | Trimethoprim/Sulfa | SUSCEPTIBILITY - KB | Sensitive | | aureus, Methicillin | | | | | Resistant | | | | + + + + + | Staphylococcus | Tetracycline | SUSCEPTIBILITY - KB | Resistant | | aureus, Methicillin | | | | | Resistant | | | | + + + + + + + + + + | Performing | Address | City/State/Zipcode | Phone Number | | Organization | | | | + + + + + | [facility] | [address] | [place] [address] | | | [place] | | | | + + + + + CULTURE, TISSUE-PROSTHETIC JOINT INFECTION AER AND SAMMIE (09/04/2019 12:09 PM PDT) + + | Specimen | + + | Tissue - Ankle | | region structure | | (body structure) | + + + + + | Narrative | Performed At | + + + | Culture Report: No growth at 14 Days Gram Stain: No squamous | [facility] - | | epithelial cells No polymorphonuclear cells No organisms seen | [facility] - | | | [place] | + + + + + + + + | Performing | Address | City/State/Zipcode | Phone Number | | Organization | | | | + + + + + | [facility] | [address] | [place] [address] | | | [place] | | | | + + + + + MAGNESIUM, PLASMA (09/04/2019 5:22 AM PDT) + +-------+ + + + | Component | Value | Ref Range | Performed | Pathologist | | | | | At | Signature | + +-------+ + + + | MAGNESIUM,P | 2.2 | 1.6 - 2.6 mg/dL | [facility] | | | LASMA | | | LABORATORY | | | [...] | + + + + + | [facility] | [address] | [place] [address] | | | SERVICES, CORE | [address] | | | + + + + + CBC (HEMOGRAM) ONLY (09/04/2019 5:22 AM PDT) + + + + + + | Component | Value | Ref Range | Performed | Pathologist | | | | | At | Signature | + + + + + + | WHITE CELL | 6.44 | 3.50 - 10.80 | [facility] | | | COUNT | | K/cu mm | LABORATORY | | | | | | SERVICES, | | | | | | CORE | | + + + + + + | RED CELL | 4.27 (L) | 4.50 - 6.00 | [facility] | | | COUNT | | M/cu mm | LABORATORY | | | | | | SERVICES, | | | | | | CORE | | + + + + + + | HEMOGLOBIN | 10.7 (L) | 13.5 - 17.5 | [facility] [...] + + + + | MCV | 79.2 (L) | 80.0 - 100.0 fL | [facility] | | | | | | LABORATORY | | | | | | SERVICES, | | | | | | CORE | | + + + + + + | MCHC | 31.7 (L) | 32.0 - 36.0 | [facility] | | | | | g/dL | LABORATORY | | | | | | SERVICES, | | | | | | CORE | | + + + + + + | RDW SD | 43.6 | 35.1 - 46.3 fL | [facility] | | | | | | LABORATORY | | | | | | SERVICES, | | | | | | CORE | | + + + + + + | PLATELET | 338 | 150 - 400 K/cu | [facility] | | | COUNT | | mm | LABORATORY | | | | | | SERVICES, | | | | | | CORE | | + + + + + + | MPV | 9.7 | 9.7 - 12.3 fL | [facility] [...] + | [facility] | [address] | [place] [address] | | | SERVICES, CORE | [address] | | | + + + + + BASIC METABOLIC SET (NA, K, CL, TCO2, BUN, CR, GLU, CA) (09/04/2019 5:22 AM PDT) + +---------+ + + + | Component | Value | Ref Range | Performed | Pathologist | | | | | At | Signature | + +---------+ + + + | GLUCOSE, | 83 | 70 - 99 mg/dL | [facility] | | | PLASMA | | | LABORATORY | | | (LAB) | | | SERVICES, | | | | | | CORE | | + +---------+ + + + | BUN, PLASMA | 14 | 6 - 20 mg/dL | [facility] | | | (LAB) | | | LABORATORY | | | | | | SERVICES, | | | | | | CORE | | + +---------+ + + + | CREATININE | 0.87 | 0.70 - 1.30 | [facility] | | | PLASMA | | mg/dL | LABORATORY | | | (LAB) | | | SERVICES, | | | | | | CORE | | + +---------+ + + + | EGFR | >60 | >60 mL/min | [facility] | | | - | | | LABORATORY | | | [place] | | | SERVICES, | | | [...] +---------+ + + + | CHLORIDE, | 105 | 97 - 108 mmol/L | [facility] | | | PLASMA | | | LABORATORY | | | (LAB) | | | SERVICES, | | | | | | CORE | | + +---------+ + + + | TOTAL CO2, | 26 | 21 - 32 mmol/L | [facility] | | | PLASMA | | | LABORATORY | | | (LAB) | | | SERVICES, | | | | | | CORE | | + +---------+ + + + | CALCIUM, | 9.1 | 8.6 - 10.2 | [facility] | | | PLASMA | | mg/dL | LABORATORY | | | (LAB) | | | SERVICES, | | | | | | CORE | | + +---------+ + + + | ANION GAP | 7 | 4 - 11 mmol/L | [facility] [...] MDRD equation recommended by the National | [facility] | | Kidney Disease Education Program. Estimated GFR Interpretive | LABORATORY | | Information: <60 mL/min/1.73 sq m Chronic Kidney | SERVICES, [facility] | | Disease <15 mL/min/1.73 sq m [...] | + + + + + | [facility] | [address] | [place] [address] | | | SERVICES, [place] | [address] | | | + + + + + COAGULOPATHY PANEL (INR,APTT,FIBRINOGEN) (09/04/2019 5:22 AM PDT) + + + + + + | Component | Value | Ref Range | Performed | Pathologist | | | | | At | Signature | + + + + + + | INR | 1.33 (H) | 0.90 - 1.20 INR | [facility] | | | | | | LABORATORY | | | | | | SERVICES, | | | | | | CORE | | + + + + + + | APTT | 37.5 (H) | 26.0 - 36.0 | [facility] | | | | | seconds | LABORATORY | | | | | | SERVICES, | | | | | | CORE | | + + + + + + | FIBRINOGEN | 692 (H) | 150 - 450 mg/dL | [facility] | | | LEVEL | | | LABORATORY | | | [...] Therapeutic ranges for full anticoagulation: INR for | [facility] | | Venous Thromboembolism (2.0 - 3.0) INR INR for | LABORATORY | | most patients with mech. valves (2.5 - 3.5) INR APTT values for | SERVICES, CORE | | monitoring heparin therapy may be affected by specimens processed >1 | | | hour after collection. APTT Therapeutic Range: | | | (75 - 120) sec Heparin levels of 0.35 - 0.7 U/mL | | | | | + + + + + + + + | Performing | Address | City/State/Zipcode | Phone Number | | Organization | | | | + + + + + | [facility] | [address] | [place] [address] | | | SERVICES, CORE | [address] | | | + + + + + DRUG SCREEN,URINE;W/CONFIRM (09/04/2019 3:30 AM PDT) + + + + + + | Component | Value | Ref Range | Performed | Pathologist | | | | | At | Signature | + + + + + + | AMPHETAMINE | Negative | Negative | [facility] | | | , URINE | | | LABORATORY | | | | | | SERVICES, | | | | | | CORE | | + + + + + + | AMPHETAMINE | <125 | <1,000 ng/mL | [facility] | | | CONC, | | | LABORATORY | | | URINE | | | SERVICES, | | | | | | CORE | | + + + + + + | BARBITURATE | Negative | Negative | [facility] | | | S, URINE | | | LABORATORY | | | | | | SERVICES, | | | | | | CORE | | + + + + + + | BARBITURATE | 34 | <200 ng/mL | [facility] | | | S CONC, | | | LABORATORY | | | URINE | | | SERVICES, | | | | | | CORE | | + + + + + + | BENZODIAZEP | Negative | Negative | [facility] | | | CONNIE, URINE | | | LABORATORY | | | | | | SERVICES, | | | | | | CORE | | + + + + + + | BENZODIAZEP | <30 | <200 ng/mL | [facility] | | | INE CONC, | | | LABORATORY | | | URINE | | | SERVICES, | | | | | | CORE | | + + + + + + | Cocaine, | Negative | Negative | [facility] | | | Urine | | | LABORATORY | | | | | | SERVICES, | | | | | | CORE | | + + + + + + | COCAINE | <35 | <300 ng/mL | [facility] | | | CONC, URINE | | | LABORATORY | | | | | | SERVICES, | | | | | | CORE | | + + + + + + | OPIATES, | Negative | Negative | [facility] | | | URINE | | | LABORATORY | | | | | | SERVICES, | | | | | | CORE | | + + + + + + | OPIATE | 168 | <300 ng/mL | [facility] | | | CONC, URINE | | | LABORATORY | | | | | | SERVICES, | | | | | | CORE | | + + + + + + | CANNABINOID | Negative | Negative | [facility] | | | S, URINE | | | LABORATORY | | | | | | SERVICES, | | | | | | CORE | | + + + + + + | CANNABINOID | <15 | <50 ng/mL | [facility] | | | CONC, | | | LABORATORY | | | URINE | | | SERVICES, | | | | | | CORE | | + + + + + + | METHADONE, | Negative | Negative | [facility] | | | URINE | | | LABORATORY | | | | | | SERVICES, | | | | | | CORE | | + + + + + + | METHADONE | <107 | <300 ng/mL | [facility] | | | CONC, URINE | | | LABORATORY | | | | | | SERVICES, | | | | | | CORE | | + + + + + + | OXYCODONE, | Negative | Negative | [facility] | | | URINE | | | LABORATORY | | | | | | SERVICES, | | | | | | CORE | | + + + + + + + + | Specimen | + + | Urine - Urine | | (substance) | + + + + + | Narrative | Performed At | + + + | Minimum drug concentration yielding a positive urine drug screen | [facility] | | Amphetamines >=1000 ng/mL | LABORATORY | | Barbiturates >=200 ng/mL | SERVICES, CORE | | Benzodiazepine >=200 ng/mL Cocaine | | | >=300 ng/mL Methadone | | | >=300 ng/mL Opiates >=300 ng/mL | | | Oxycodone >=100 ng/mL THC - | | | Cannabinoid >=50 ng/mL Screening results are not | | | confirmed by alternate method unless requested. Results are to be | | | used for medical (i.e. treatment) purposes only. The reported | | | result is an estimated concentration of drug that can be detected by | | | the method of analysis. Amphetamine Note: Benzphetamine and | | | Selegiline may produce positive results with this assay. Opiates | | | Notes: Therapeutic doses of Ofloxcin (Floxin) or Levofloxacin | | | (Levaquin) may produce positive results with this assay. The | | | substaces being tested for must include Amphetamines, Benzodiazepines, | | | Cocaine, Alcohol, Cannabinoids, Opiates. | | + + + + + + + + | Performing | Address | City/State/Zipcode | Phone Number | | Organization | | | | + + + + + | [facility] | [address] | [place] [address] | | | [facility] | [address] | | | + + + + + CARDIOLOGY (09/04/2019 12:00 AM PDT) + + + | Narrative | Performed At | + + + | | | + + + HEMOGLOBIN A1C, BLOOD (09/03/2019 9:52 PM PDT) + + + + + + | Component | Value | Ref Range | Performed | Pathologist | | | | | At | Signature | + + + + + + | HEMOGLOBIN | 5.2Comment: Hgb A1C | <5.7 % | [facility] [...] + + + + | ESTIMATED | 103Comment: The | mg/dL | [facility] | | [...] | [facility] | | considered for monitoring termite control technician glycemic control in patients with: | LABORATORY [...] | + + + + + | [facility] | [address] | [place] [address] | | | SERVICES, SPECIAL | [address] | | | | IMM + COAG | | | | + + + + + PREALBUMIN (09/03/2019 9:52 PM PDT) + +---------+ + + + | Component | Value | Ref Range | Performed | Pathologist | | | | | At | Signature | + +---------+ + + + | PREALBUMIN | 6.0 (L) | 17.0 - 42.0 | [facility] | | | | | mg/dL | [facility] | | | | | | [place] | | + +---------+ + + + + + | Specimen | + + | Blood - Blood | | (substance) | + + + + + + + | Performing | Address | City/State/Zipcode | Phone Number | | Organization | | | | + + + + + | [facility] | [address] | [place] [address] | | | [place] | | | | + + + + + INR (09/03/2019 7:25 PM PDT) + + + + + + | Component | Value | Ref Range | Performed | Pathologist | | | | | At | Signature | + + + + + + | INR | 1.30 (H) | 0.90 - 1.20 INR | [facility] [...] mech. valves (2.5 - 3.5) INR | SERVICES, CORE | + + + + + + + + | Performing | Address | City/State/Zipcode | Phone Number | | Organization | | | | + + + + + | [facility] | [address] | [place] [address] | | | SERVICES, CORE | [address] | | | + + + + + RAINBOW HOLD TUBE - RED TOP (09/03/2019 7:25 PM PDT) + + | Specimen | + + | Blood - Blood | | (substance) | + + + + + + + | Performing | Address | City/State/Zipcode | Phone Number | | Organization | | | | + + + + + | [facility] | [address] | [place] [address] | | | SERVICES, CORE | [address] | | | + + + + + RAINBOW HOLD TUBE - BLUE TOP (09/03/2019 7:25 PM PDT) + + | Specimen | + + | Blood - Blood | | (substance) | + + + + + + + | Performing | Address | City/State/Zipcode | Phone Number | | Organization | | | | + + + + + | [facility] | [address] | [place] [address] | | | [place], [place] | [address] | | | + + + + + CULTURE, BLOOD BACTI & YEAST [facility] (09/03/2019 7:25 PM PDT) + + + + + [...] | + + + + + | [facility] | [address] | [place] [address] | | | SERVICES, CORE | [address] | | | + + + + + BG-LAC,POC ISTAT (09/03/2019 7:25 PM PDT) + +-------+ + + + | Component | Value | Ref Range | Performed | Pathologist | | | | | At | Signature | + +-------+ + + + | TOTAL CO2 | 28 | 23 - 29 mmol/L | [facility] - | | | [facility], POC | | | [facility] | | | | | | [facility] | | | | | | OF CARE | | | | | | TESTS | | + +-------+ + + + | PH VENOUS, | 7.44 | 7.35 - 7.45 | [facility] - | | | POC | | | [facility] | | | | | | [facility] | | | | | | OF CARE | | | | | | TESTS | | + +-------+ + + + | PCO2 | 40 | 35 - 50 mmHg | [facility] - | | | VENOUS, POC | | | [facility] | | | | | | [place] | | | | | | OF CARE | | | | | | TESTS | | + +-------+ + + + | HCO3 | 27 | 22 - 28 mmol/L | [facility] - | | | VENOUS, POC | | | [facility] | | | | | | [place] | | | | | | OF CARE | | | | | | TESTS | | + +-------+ + + + | PO2 VENOUS, | 41 | 30 - 55 mmHg | [facility] - | | | POC | | | [facility] | | | | | | [facility] | | | | | | OF CARE | | | | | | TESTS | | + +-------+ + + + | O2 SAT | 79 | 95 - 98 % | [facility] - | | | [facility]EN[facility], POC | | | [facility] | | | | | | [facility] | | | | | | OF CARE | | | | | | TESTS | | + +-------+ + + + | LACTATE | 0.8 | 0.5 - 2.0 | [facility] - | | | VENOUS, POC | | mmol/L | [facility] | | | | | | [facility], [facility] | | | | | | OF CARE | | | | | | TESTS | | + +-------+ + + + | PAT TEMP | 97.8 | | [facility] - | | | VENOUS,POC | | | [facility] | | | | | | [facility] | | | | | | OF CARE | | | | | | TESTS | | + +-------+ + + + | BASE EXCESS | 3.0 | -2 - 3 mmol/L | [facility] - | | | EILEEN [facility] | | | [facility] | | | | | | ALEX MORAN | | [...] [facility] | [address] | [place], [place] | | | ALEX M[facility] | [facility] | [id number] | | | TESTS | | | | + + + + + DIGOXIN, PLASMA (09/03/2019 7:24 PM PDT) + +---------+ + + + | Component | Value | Ref Range | Performed | Pathologist | | | | | At | Signature | + +---------+ + + + | DIGOXIN | 0.7 (L) | 0.8 - 2.0 ng/mL | [...] + | [facility] | [address] | [place] [address] | | | SERVICES, CORE | [address] | | | + + + + + ETHANOL (ALCOHOL), BLOOD (09/03/2019 7:24 PM PDT) + +-------+ + + + | Component | Value | Ref Range | Performed | Pathologist | | | | | At | Signature | + +-------+ + + + | ETHANOL | <10 | <10 mg/dL | [facility] | | | (ALCOHOL) | | | LABORATORY | | | [...] | + + + + + | [facility] | [address] | [place] [address] | | | SERVICES, CORE | [address] | | | + + + + + CULTURE, BLOOD BACTI & YEAST RADHA (09/03/2019 7:24 PM PDT) + + + + + [...] + | [facility] | [address] | [place] [address] | | | SERVICES, CORE | [address] | | | + + + + + C-REACTIVE PROTEIN (09/03/2019 7:24 PM PDT) + + + + + + | Component | Value | Ref Range | Performed | Pathologist | | | | | At | Signature | + + + + + + | C-REACTIVE | 178.0 (H) | <10.0 mg/L | [facility] | [...] + | [facility] | [address] | [place] [address] | | | SERVICES, CORE | [address] | | | + + + + + COMPLETE METABOLIC SET (NA,K,CL,CO2,BUN,CREAT,GLUC,CA,AST,ALT,BILI TOTAL,ALK PHOS,ALB,PROT TOTAL) (09/03/2019 7:24 PM PDT) + +---------+ + + + | Component | Value | Ref Range | Performed | Pathologist | | | | | At | Signature | + +---------+ + + + | GLUCOSE, | 84 | 70 - 99 mg/dL | [facility] | | | PLASMA | | | LABORATORY | | | (LAB) | | | SERVICES, | | | | | | CORE | | + +---------+ + + + | BUN, PLASMA | 15 | 6 - 20 mg/dL | [facility] | | | (LAB) | | | LABORATORY | | | | | | SERVICES, | | | | | | CORE | | + +---------+ + + + | CREATININE | 0.92 | 0.70 - 1.30 | [facility] | | | PLASMA | | mg/dL | LABORATORY | | | (LAB) | | | SERVICES, | | | | | | CORE | | + +---------+ + + + | EGFR | >60 | >60 mL/min | [facility] | | | - | | | LABORATORY | | | [place] | | | SERVICES, | | | [...] + + + | TOTAL CO2, | 28 | 21 - 32 mmol/L | [facility] [...] | + +---------+ + + + | CALCIUM(ALB | 10.1 | 8.6 - 10.2 | [facility] | | | CORRECTED) | | mg/dL | LABORATORY | | | | | | SERVICES, | | | | | | CORE | | + +---------+ + + + | BILIRUBIN | 0.5 | 0.3 - 1.2 mg/dL | [facility] | | | TOTAL | | | LABORATORY | | | | | | SERVICES, | | | | | | CORE | | + +---------+ + + + | TOTAL | 7.2 | 6.4 - 8.2 g/dL | [facility] | | | PROTEIN, | | | LABORATORY | | | PLASMA | | | SERVICES, | | | (LAB) | | | CORE | | + +---------+ + + + | ALBUMIN, | 2.5 (L) | 3.5 - 4.7 g/dL | [facility] | | | PLASMA | | | LABORATORY | | | (LAB) | | | SERVICES, | | | | | | CORE | | + +---------+ + + + | ALK PHOS | 118 | 56 - 119 U/L | [facility] | | | | | | LABORATORY | | | | | | SERVICES, | | | | | | CORE | | + +---------+ + + + | AST(SGOT) | 14 | <=41 U/L | [facility] | | | | | | LABORATORY | | | | | | SERVICES, | | | | | | CORE | | + +---------+ + + + | ALT (SGPT) | 12 | <=60 U/L | [facility] | | [...] + +---------+ + + + | ANION | 8 [...] | + +---------+ + + + | BILI T CMNT | No Hemo | | [facility] | | | | | | LABORATORY | | | | | | SERVICES, | | | | | | CORE | | + +---------+ + + + | AST CMNT | [...] MDRD equation recommended by the National | [facility] | | Kidney Disease Education Program. Estimated [...] | + + + + + | [facility] | [address] | [place] [address] | | | SERVICES, CORE | [address] | | | + + + + + X-RAY ANKLE 2 VIEWS LEFT (09/03/2019 7:22 PM PDT) + + | Specimen | + + | | + + + + + | Narrative | Performed At | + + + | EXAM: TIBIA AND FIBULA 2 VIEWS LT, ANKLE 2 VIEWS LEFT HISTORY: | [facility] | | cellulitis, hardware in place, concern for associated hardware | RADIOLOGY VOICE | | infection COMPARISON: None. IMPRESSION: Extensive | RECOGNITION 2 | | expansile lucency is noted throughout the musculature of the calf | | | consistent with gas throughout the soft tissues indicating necrotizing | | | fasciitis. Extensive subcutaneous fat edema is also noted, in keeping | | | with a history of cellulitis. Normal alignment seen at the knees. | | | Postsurgical and likely posttraumatic deformity of the ankle is noted | | | with fusion across the subtalar and tibiotalar joint spaces. There is | | | loosening around both distal screws concerning for motion. A deep soft | | | tissue ulcer is present over the calcaneus. Critical results were | | | discussed with the orthopedic surgery resident in the emergency | | | department on 09/03/2019 8:30 PM by Makeda James MD : | | | I have personally reviewed the images and, if necessary, edited | | | the report. I agree with the report as now presented. Final | | | signature: Makeda James MD 09/03/2019 8:31 PM Preliminary: | | | Makeda James MD Dictation initiated: Makeda James MD | | | 09/03/2019 8:15 PM | | + + + + + | Procedure Note | + + | Service Account, Radiant Res In Interface - 09/03/2019 8:32 PM PDT EXAM: TIBIA AND | | FIBULA 2 VIEWS LT, ANKLE 2 VIEWS LEFT HISTORY: cellulitis, hardware in place, concern | | for associated hardware infection COMPARISON: None. IMPRESSION: Extensive expansile | | lucency is noted throughout the musculature of the calf consistent with gas throughout | | the soft tissues indicating necrotizing fasciitis. Extensive subcutaneous fat edema is | | also noted, in keeping with a history of cellulitis. Normal alignment seen at the knees. | | Postsurgical and likely posttraumatic deformity of the ankle is noted with fusion | | across the subtalar and tibiotalar joint spaces. There is loosening around both distal | | screws concerning for motion. A deep soft tissue ulcer is present over the calcaneus. | | Critical results were discussed with the orthopedic surgery resident in the emergency | | department on 09/03/2019 8:30 PM by Makeda James MD : I have personally reviewed | | the images and, if necessary, edited the report. I agree with the report as now | | presented. Final signature: Makeda James MD 09/03/2019 8:31 PM Preliminary: Makeda James MD Dictation initiated: Makeda James MD 09/03/2019 8:15 PM | | | | | |: | | | | | | | |I have personally reviewed the images and, if necessary, edited the report. I agree with th e report as now presented. | | | |Final signature: Makeda James MD 09/03/2019 8:31 PM | |Preliminary: Makeda James MD | |Dictation initiated: Makeda James MD 09/03/2019 8:15 PM | + + + +---------+ + + | Performing | Address | City/State/Zipcode | Phone Number | | Organization | | | | + +---------+ + + | [facility] | | | | | VOICE RECOGNITION 2 | | | | + +---------+ + + X-RAY TIBIA & FIBULA 2 VIEWS LT (09/03/2019 7:22 PM PDT) + + | Specimen | + + | | + + + + + | Narrative | Performed At | + + + | EXAM: TIBIA AND FIBULA 2 VIEWS LT, ANKLE 2 VIEWS LEFT HISTORY: | [facility] | | cellulitis, hardware in place, concern for associated hardware | RADIOLOGY VOICE | | infection COMPARISON: None. IMPRESSION: Extensive | RECOGNITION 2 | | expansile lucency is noted throughout the musculature of the calf | | | consistent with gas throughout the soft tissues indicating necrotizing | | | fasciitis. Extensive subcutaneous fat edema is also noted, in keeping | | | with a history of cellulitis. Normal alignment seen at the knees. | | | Postsurgical and likely posttraumatic deformity of the ankle is noted | | | with fusion across the subtalar and tibiotalar joint spaces. There is | | | loosening around both distal screws concerning for motion. A deep soft | | | tissue ulcer is present over the calcaneus. Critical results were | | | discussed with the orthopedic surgery resident in the emergency | | | department on 09/03/2019 8:30 PM by Makeda James MD : | | | I have personally reviewed the images and, if necessary, edited | | | the report. I agree with the report as now presented. Final | | | signature: Makeda James MD 09/03/2019 8:31 PM Preliminary: | | | Makeda James MD Dictation initiated: Makeda James MD | | | 09/03/2019 8:15 PM | | + + + + + | Procedure Note | + + | Service Account, Radiant Res In Interface - 09/03/2019 8:32 PM PDT EXAM: TIBIA AND | | FIBULA 2 VIEWS LT, ANKLE 2 VIEWS LEFT HISTORY: cellulitis, hardware in place, concern | | for associated hardware infection COMPARISON: None. IMPRESSION: Extensive expansile | | lucency is noted throughout the musculature of the calf consistent with gas throughout | | the soft tissues indicating necrotizing fasciitis. Extensive subcutaneous fat edema is | | also noted, in keeping with a history of cellulitis. Normal alignment seen at the knees. | | Postsurgical and likely posttraumatic deformity of the ankle is noted with fusion | | across the subtalar and tibiotalar joint spaces. There is loosening around both distal | | screws concerning for motion. A deep soft tissue ulcer is present over the calcaneus. | | Critical results were discussed with the orthopedic surgery resident in the emergency | | department on 09/03/2019 8:30 PM by Makeda James MD : I have personally reviewed | | the images and, if necessary, edited the report. I agree with the report as now | | presented. Final signature: Makeda James MD 09/03/2019 8:31 PM Preliminary: Makeda James MD Dictation initiated: Makeda James MD 09/03/2019 8:15 PM | | | | | |: | | | | | | | |I have personally reviewed the images and, if necessary, edited the report. I agree with th e report as now presented. | | | |Final signature: Makeda James MD 09/03/2019 8:31 PM | |Preliminary: Makeda James MD | |Dictation initiated: Makeda James MD 09/03/2019 8:15 PM | + + + +---------+ + + | Performing | Address | City/State/Zipcode | Phone Number | | Organization | | | | + +---------+ + + | [facility] | | | | | VOICE RECOGNITION 2 | | | | + +---------+ + + BLOOD BANK HOLD TUBE - DON T PROCESS (09/03/2019 7:16 PM PDT) + + + + + [...] + | [facility] | [address] | [place] [address] | | | SERVICES, | [address] | | | | TRANSFUSION MEDICINE | | | | + + + + + SEDIMENTATION RATE (09/03/2019 7:16 PM PDT) + +--------+ + + + | Component | Value | Ref Range | Performed | Pathologist | | | | | At | Signature | + +--------+ + + + | SEDIMENTATI | 92 (H) | 0 - 20 mm/hr | [...] | + + + + + | [facility] | [address] | [place] [address] | | | SERVICES, CORE | [address] | | | + + + + + RBC MORPHOLOGY (09/03/2019 7:11 PM PDT) + + | Specimen | + + | Blood - Blood | | (substance) | + + + + + + + | Performing | Address | City/State/Zipcode | Phone Number | | Organization | | | | + + + + + | [facility] | [address] | [place] [address] | | | SERVICES, CORE | [address] | | | + + + + + CBC AND AUTO DIFF (09/03/2019 7:11 PM PDT) + + + + + + | Component | Value | Ref Range | Performed | Pathologist | | | | | At | Signature | + + + + + + | WHITE CELL | 8.07 | 3.50 - 10.80 | [facility] | | | COUNT | | K/cu mm | LABORATORY | | | | | | SERVICES, | | | | | | CORE | | + + + + + + | RED CELL | 4.15 (L) | 4.50 - 6.00 | [facility] | | | COUNT | | M/cu mm | LABORATORY | | | | | | SERVICES, | | | | | | CORE | | + + + + + + | HEMOGLOBIN | 10.2 (L) | 13.5 - 17.5 | [facility] | | | | | g/dL | LABORATORY | | | | | | SERVICES, | | | | | | CORE | | + + + + + + | HEMATOCRIT | 32.8 (L) | 41.0 - 53.0 % | [facility] | | | | | | LABORATORY | | | | | | SERVICES, | | | | | | CORE | | + + + + + + | MCV | 79.0 (L) | 80.0 - 100.0 fL | [facility] | | | | | | LABORATORY | | | | | | SERVICES, | | | | | | CORE | | + + + + + + | MCHC | 31.1 (L) | 32.0 - 36.0 | [facility] | | | | | g/dL | LABORATORY | | | | | | SERVICES, | | | | | | CORE | | + + + + + + | RDW SD | 43.6 | 35.1 - 46.3 fL | [facility] | | | | | | LABORATORY | | | | | | SERVICES, | | | | | | CORE | | + + + + + + | PLATELET | 363 | 150 - 400 K/cu | [facility] | | | COUNT | | mm | LABORATORY | | | | | | SERVICES, | | | | | | CORE | | + + + + + + | MPV | 9.7 | 9.7 - 12.3 fL | [facility] [...] + + + + + + | NEUTROPHIL | 74.1 (H) | 50.0 - 70.0 % | [facility] | | | % | | | LABORATORY | | | | | | SERVICES, | | | | | | CORE | | + + + + + + | LYMPHOCYTE | 12.1 (L) | 18.0 - 42.0 % | [facility] | | | % | | | LABORATORY | | | | | | SERVICES, | | | | | | CORE | | + + + + + + | MONOCYTE % | 10.0 (H) | 3.5 - 9.0 % | [facility] | | | | | | LABORATORY | | | | | | SERVICES, | | | | | | CORE | | + + + + + + | EOS % | 3.0 | 1.0 - 3.0 % | [facility] | | | | | | LABORATORY | | | | | | SERVICES, | | | | | | CORE | | + + + + + + | BASO % | 0.4 | 0.0 - 2.0 % | [facility] | | | | | | LABORATORY | | | | | | SERVICES, | | | | | | CORE | | + + + + + + | IG% | 0.4 | 0.0 - 1.0 % | [facility] | | | | | | LABORATORY | | | | | | SERVICES, | | | | | | CORE | | + + + + + + | NEUTROPHIL | 5.98 | 1.80 - 7.70 | [facility] | | | # | | K/cu mm | LABORATORY | | | | | | SERVICES, | | | | | | CORE | | + + + + + + | LYMPHOCYTE | 0.98 (L) | 1.00 - 4.80 | [facility] | | | # | | K/cu mm | LABORATORY | | | | | | SERVICES, | | | | | | CORE | | + + + + + + | MONOCYTE # | 0.81 | 0.10 - 0.90 | [facility] | | | | | K/cu mm | LABORATORY | | | | | | SERVICES, | | | | | | CORE | | + + + + + + | EOS # | 0.24 | 0.00 - 0.50 | [facility] | | | | | K/cu mm | LABORATORY | | | | | | SERVICES, | | | | | | CORE | | + + + + + + | BASO # | 0.03 | 0.00 - 0.10 | [facility] | | | | | K/cu mm | LABORATORY | | | | | | SERVICES, | | | | | | CORE | | + + + + + + | IG# | 0.03 | 0.00 - 0.10 | [facility] | | | | | K/cu mm | LABORATORY | | | | | | SERVICES, | | | | | | CORE | | + + + + + + + + | Specimen | + + | Blood - Blood | | (substance) | + + + + + | Narrative | Performed At | + + + | Increased immature granulocytes (IG) define a left shift. Immature | [facility] | | granulocytes (IG) are an automated count of metamyelocytes, myelocytes | LABORATORY | | and promyelocytes. Bands are not included in the IG count. Bands are | SERVICES, CORE | | included in the neutrophil count. | | + + + + + + + + | Performing | Address | City/State/Zipcode | Phone Number | | Organization | | | | + + + + + | [facility] | [address] | [place] [address] | | | SERVICES, CORE | [address] | | | + + + + + documented in this encounter Visit Diagnoses Not on filedocumented in this encounter Administered Medications + +--------+ + +------+------+ | Medication Order | MAR | Action | Dose | Rate | Site | | | Action | Date | | | | + +--------+ + +------+------+ | acetaminophen (TYLENOL) tablet | Given | 09/17/20 | 1,000 mg | | | | 1,000 mg 1,000 mg, oral, THREE | | 19 9:19 | | | | | TIMES DAILY, First dose on Shania | | AM PST | | | | | 09/04/19 at 1600, Until | | | | | | | Discontinued | | | | | | + +--------+ + +------+------+ +-------+ + +---+---+ | Given | 09/16/20 | 1,000 mg | | | | | 19 9:55 | | | | | | PM PST | | | | +-------+ + +---+---+ | Given | 09/16/20 | 1,000 mg | | | | | 19 4:39 | | | | | | PM PST | | | | +-------+ + +---+---+ +---+---+ | | | +---+---+ + +-------+ +-------+---+---+ | aspirin chewable tablet 81 mg | Given | 09/17/20 | 81 mg | | | | 81 mg, oral, DAILY, First dose on | | 19 9:20 | | | | | 09/08/19 at 0900, Until | | AM PST | | | | | Discontinued | | | | | | + +-------+ +-------+---+---+ +-------+ +-------+---+---+ | Given | 09/16/20 | 81 mg | | | | | 19 8:25 | | | | | | AM PST | | | | +-------+ +-------+---+---+ | Given | 09/15/20 | 81 mg | | | | | 19 8:21 | | | | | | AM PST | | | | +-------+ +-------+---+---+ + +---+ | | | + +---+ | bisacodyl (DULCOLAX) | | | suppository 10 mg 10 mg, rectal, | | | DAILY NEEDED, Starting Fri | | | 09/05/19 at 1330, Until Wed | | | 09/17/19 at 1808, 2nd line for no | | | BM in past 2 days or if no | | | response to MIRALAX or if patient | | | unable to tolerate oral | | + +---+ | | | + +---+ + +-------+ +---+---+---+ | calamine lotion topical, | Given | 09/16/20 | | | | | NEEDED, Starting Shania 09/04/19 at | | 19 4:05 | | | | | 0239, Until 09/17/19 at 1808, | | AM PST | | | | | itching | | | | | | + +-------+ +---+---+---+ +-------+ +--------+---+------+ | Given | 09/10/20 | | | Back | | | 19 9:00 | | | | | | AM PDT | | | | +-------+ +--------+---+------+ | Given | 09/09/20 | 177 mL | | | | | 19 1:14 | | | | | | AM PDT | | | | +-------+ +--------+---+------+ +---+---+ | | | +---+---+ + +-------+ +---------+---+---+ | digoxin (LANOXIN) tablet 125 | Given | 09/17/20 | 125 mcg | | | | mcg 125 mcg, oral, DAILY, First | | 19 9:24 | | | | | dose on Shania 09/04/19 at 0900, | | AM PST | | | | | Until Discontinued | | | | | | + +-------+ +---------+---+---+ +-------+ +---------+---+---+ | Given | 09/16/20 | 125 mcg | | | | | 19 8:27 | | | | | | AM PST | | | | +-------+ +---------+---+---+ | Given | 09/15/20 | 125 mcg | | | | | 19 8:30 | | | | | | AM PST | | | | +-------+ +---------+---+---+ +---+---+ | | | +---+---+ + +-------+ +-------+---+---------+ | enoxaparin (LOVENOX) injection | Given | 09/16/20 | 40 mg | | Abdomen | | 40 mg 40 mg, subcutaneous, EVERY | | 19 9:54 | | | | | EVENING, First dose on Sun | | PM PST | | | | | 09/07/19 at 2100, Until | | | | | | | Discontinued | | | | | | + +-------+ +-------+---+---------+ +-------+ +-------+---+---------+ | Given | 09/15/20 | 40 mg | | Abdomen | | | 19 8:59 | | | | | | PM PST | | | | +-------+ +-------+---+---------+ | Given | 09/14/20 | 40 mg | | Abdomen | | | 19 8:05 | | | | | | PM PST | | | | +-------+ +-------+---+---------+ +---+---+ | | | +---+---+ + +-------+ +--------+---+---+ | gabapentin (NEURONTIN) capsule | Given | 09/17/20 | 600 mg | | | | 600 mg 600 mg, oral, THREE TIMES | | 19 9:19 | | | | | DAILY, First dose on Shania | | AM PST | | | | | 09/04/19 at 0900, Until | | | | | | | Discontinued | | | | | | + +-------+ +--------+---+---+ +-------+ +--------+---+---+ | Given | 09/16/20 | 600 mg | | | | | 19 9:55 | | | | | | PM PST | | | | +-------+ +--------+---+---+ | Given | 09/16/20 | 600 mg | | | | | 19 4:39 | | | | | | PM PST | | | | +-------+ +--------+---+---+ +---+---+ | | | +---+---+ + +-------+ +------+---+---+ | melatonin tablet 3 mg 3 mg, | Given | 09/16/20 | 3 mg | | | | oral, EVERY EVENING, First dose | | 19 9:56 | | | | | on Shania 09/04/19 at 0315, Until | | PM PST | | | | | Discontinued | | | | | | + +-------+ +------+---+---+ +-------+ +------+---+---+ | Given | 09/15/20 | 3 mg | | | | | 19 8:58 | | | | | | PM PST | | | | +-------+ +------+---+---+ | Given | 09/14/20 | 3 mg | | | | | 19 9:30 | | | | | | PM PST | | | | +-------+ +------+---+---+ +---+---+ | | | +---+---+ + +-------+ +---+---+ + | Mixture - tobramycin-vancomycin | Given | 09/04/20 | | | Left | | (cement antibiotic) | | 19 10:43 | | | Lower | | INTRAPROCEDURE PRN, Starting Shania | | AM PDT | | | Extremit | | 09/04/19 at 1043, Until Shania | | | | | y | | 09/04/19 at 1355 | | | | | | + +-------+ +---+---+ + +---+---+ | | | +---+---+ + +-------+ +-------+---+---+ | omeprazole (PRILOSEC) capsule | Given | 09/17/20 | 20 mg | | | | 20 mg 20 mg, oral, TWICE DAILY, | | 19 9:20 | | | | | First dose on [facility] 09/04/19 at | | AM PST | | | | | 0900, Until Discontinued | | | | | | + +-------+ +-------+---+---+ +-------+ +-------+---+---+ | Given | 09/16/20 | 20 mg | | | | | 19 9:55 | | | | | | PM PST | | | | +-------+ +-------+---+---+ | Given | 09/16/20 | 20 mg | | | | | 19 8:26 | | | | | | AM PST | | | | +-------+ +-------+---+---+ +---+---+ | | | +---+---+ + +-------+ +------+---+---+ | oxyCODONE (immediate release) | Given | 09/07/20 | 5 mg | | | | (ROXICODONE) tablet 5 mg 5 mg, | | 19 9:40 | | | | | oral, EVERY 6 HOURS NEEDED, | | PM PDT | | | | | Starting Shania 09/04/19 at 1845, | | | | | | | Until Sun09/17/19 at 1808, | | | | | | | moderate pain, unresponsive to | | | | | | | non-opioid medication | | | | | | + +-------+ +------+---+---+ +-------+ +------+---+---+ | Given | 09/06/20 | 5 mg | | | | | 19 11:25 | | | | | | PM PDT | | | | +-------+ +------+---+---+ + +---+ | | | + +---+ | polyethylene glycol (MIRALAX) | | | packet 17 g 17 g, oral, DAILY, | | | First dose on Sun09/12/19 at | | | 1045, Until Discontinued | | + +---+ | | | + +---+ + +-------+ +------+---+---+ | polyethylene glycol (MIRALAX) | Given | 09/11/20 | 34 g | | | | packet 34 g 34 g, oral, THREE | | 19 6:25 | | | | | TIMES DAILY NEEDED, Starting | | PM PDT | | | | | 09/05/19 at 1330, Until Wed | | | | | | | 09/17/19 at 1808, 1st line - for | | | | | | | no BM for 2 days | | | | | | + +-------+ +------+---+---+ +-------+ +------+---+---+ | Given | 09/08/20 | 34 g | | | | | 19 9:18 | | | | | | AM PDT | | | | +-------+ +------+---+---+ +---+---+ | | | +---+---+ + +-------+ +--------+---+---+ | potassium chloride SR (K-DUR) | Given | 09/17/20 | 20 mEq | | | | tablet 20 mEq 20 mEq, oral, | | 19 9:20 | | | | | DAILY, First dose on Sun09/12/19 | | AM PST | | | | | at 1045, Until Discontinued | | | | | | + +-------+ +--------+---+---+ +-------+ +--------+---+---+ | Given | 09/16/20 | 20 mEq | | | | | 19 8:26 | | | | | | AM PST | | | | +-------+ +--------+---+---+ | Given | 09/15/20 | 20 mEq | | | | | 19 8:21 | | | | | | AM PST | | | | +-------+ +--------+---+---+ +---+---+ | | | +---+---+ + + + +---+---+---+ | probiotic yogurt (NAIN'S | Given - | 09/16/20 | | | | | YOGURT) oral, TWICE DAILY, First | Food | 19 8:29 | | | | | dose on Sun09/11/19 at 1300, | | AM PST | | | | | Until Discontinued | | | | | | + + + +---+---+---+ + + +---+---+---+ | Given - Food | 09/15/20 | | | | | | 19 8:23 | | | | | | AM PST | | | | + + +---+---+---+ | Given - Food | 09/14/20 | | | | | | 19 8:11 | | | | | | PM PST | | | | + + +---+---+---+ +---+---+ | | | +---+---+ + +-------+ + +---+---+ | senna-docusate (SENOKOT S) | Given | 09/16/20 | 1 tablet | | | | 8.6-50 mg 1 tablet 1 tablet, | | 19 9:55 | | | | | oral, TWICE DAILY, First dose on | | PM PST | | | | | 09/05/19 at 2100, Until | | | | | | | Discontinued | | | | | | + +-------+ + +---+---+ +-------+ + +---+---+ | Given | 09/15/20 | 1 tablet | | | | | 19 8:58 | | | | | | PM PST | | | | +-------+ + +---+---+ | Given | 09/14/20 | 1 tablet | | | | | 19 8:04 | | | | | | PM PST | | | | +-------+ + +---+---+ +---+---+ | | | +---+---+ + +-------+ +--------+---+---+ | tamsulosin (FLOMAX) capsule 0.4 | Given | 09/17/20 | 0.4 mg | | | | mg 0.4 mg, oral, DAILY, First | | 19 9:20 | | | | | dose on [facility] 09/04/19 at 0900, | | AM PST | | | | | Until Discontinued | | | | | | + +-------+ +--------+---+---+ +-------+ +--------+---+---+ | Given | 09/16/20 | 0.4 mg | | | | | 19 8:26 | | | | | | AM PST | | | | +-------+ +--------+---+---+ | Given | 09/15/20 | 0.4 mg | | | | | 19 8:21 | | | | | | AM PST | | | | +-------+ +--------+---+---+ +---+---+ | | | +---+---+ + +-------+ +--------+---+---+ | thiamine tablet 100 mg 100 mg, | Given | 09/17/20 | 100 mg | | | | oral, DAILY, First dose on [facility] | | 19 9:20 | | | | | 09/04/19 at 0900, Until | | AM PST | | | | | Discontinued | | | | | | + +-------+ +--------+---+---+ +-------+ +--------+---+---+ | Given | 09/16/20 | 100 mg | | | | | 19 8:25 | | | | | | AM PST | | | | +-------+ +--------+---+---+ | Given | 09/15/20 | 100 mg | | | | | 19 8:21 | | | | | | AM PST | | | | +-------+ +--------+---+---+ +---+---+ | | | +---+---+ + +-------+ +-------+---+---+ | torsemide (DEMADEX) tablet 10 | Given | 09/17/20 | 10 mg | | | | mg 10 mg, oral, DAILY, First | | 19 9:24 | | | | | dose on Sun09/10/19 at 1030, | | AM PST | | | | | Until Discontinued | | | | | | + +-------+ +-------+---+---+ +-------+ +-------+---+---+ | Given | 09/16/20 | 10 mg | | | | | 19 8:25 | | | | | | AM PST | | | | +-------+ +-------+---+---+ | Given | 09/15/20 | 10 mg | | | | | 19 8:30 | | | | | | AM PST | | | | +-------+ +-------+---+---+ +---+---+ | | | +---+---+ + +---------+ + +---+---+ | vancomycin (VANCOCIN) IV 1,250 | New Bag | 09/16/20 | 1,250 mg | | | | mg 1,250 mg, intravenous, EVERY | | 19 8:43 | | | | | 24 HOURS, First dose (after last | | PM PST | | | | | reorder) on 09/13/19 at 2030, | | | | | | | Until Discontinued | | | | | | + +---------+ + +---+---+ +---------+ + +---+---+ | New Bag | 09/15/20 | 1,250 mg | | | | | 19 8:58 | | | | | | PM PST | | | | +---------+ + +---+---+ | New Bag | 09/14/20 | 1,250 mg | | | | | 19 8:06 | | | | | | PM PST | | | | +---------+ + +---+---+ [...]
--- OUTSIDE RECORDS SUMMARY | ~2020-06-01 | XMS | Encounter Summary ---
Demographics + + + | Address | [address] | | | [place] [address] | + + + | Home Phone | | + + + | Preferred Language | Unknown | + + + | Marital Status | Single | + + + | Caodaism Affiliation | NRP | + + + | Race | White | + + + | Ethnic Group | Not or | + + + Author + + + | Author | [facility] | + + + | Organization | [facility] | + + + | Address [...] Team Providers + +------+ + | Care Power Machine Operator Name | Role | Phone | + +------+ + | Dustin Perez MD | PCP | | + +------+ + Reason for Visit + + + | Reason | Comments | + + + | Transitional Care | [facility] | | Management | | + + + | Infectious disease | | + + + Encounter Details +--------+ + + + + | Date | Type | Department | Care Team | Description | +--------+ + + + + | 09/19/ | Telephone | Infectious | Chyna Aponte, | Transitional Care | | 2019 | | Diseases at [facility] | RN [address] | Management ([facility]); | | | | [address] | [address] | Infectious disease | | | | [address] [facility] | [place], [place] | | | | | [address], 3rd floor | [address] | | | | | [place], [place] | [phone] | | | | | [address] | | | | | | [phone] | | | +--------+ + + + [...]
--- OUTSIDE RECORDS SUMMARY | ~2020-06-01 | XMS | Encounter Summary ---
Demographics + + + | Address | [address] | | | [place] [address] | + + + | Home Phone | | + + + | Preferred Language | Unknown | + + + | Marital Status | Single | + + + | Protestant Affiliation | NRP | + + + | Race | White | + + + | Ethnic Group | Not or | + + + Author + + + | Author | [facility] | + + + | Organization | [facility] | + + + | [...] Team Providers + +------+ + | Care Credit Product Analyst Name | Role | Phone | + +------+ + | Dustin Perez MD | PCP | | + +------+ + Encounter Details +--------+ + + + + | Date | Type | Department | Care Team | Description | +--------+ + + + + | 10/14/ | Hospital | Radiology/Imaging | Cory Carmen, | | | 2019 | Encounter | Lab at [facility] [address] | | | | | [address] [facility] | [place], [place] | | | | | [facility], | [address] | | | | | [facility] | [phone] | | | | | Floor [place], [place] | | | | | | [address] | | | | | | [phone] | | | +--------+ + + + [...] + + documented as of this encounter Medications at Time of Discharge [...] | | | | | with hardware ([facility]) | | | | | | + [...] daily. | | | | | | release(/MUNA) | Administer 30 to 60 | | [...] + + + +---------+ + + | vancomycin | Inject 1,500 mg into | 330 mL | 0 | 09/25/20 | | | intravenous recon | the vein (IV) every | | | 19 | 9 | | solnIndications: | twenty-four hours | | | | | | bone/joint infection | for 22 days. To be | | | | | | | admixed per infusion | | | | | | | pharmacy standard | | | | | | | policy and/or | | | | | | | procedure. | | | | | | | Indications: | | | | | | | bone/joint infection | | | | | + + + +---------+ + + documented as of this encounter Plan of Treatment Not on filedocumented as of this encounter Procedures + +--------+ + + + | Procedure Name | Priori | Date/Time | Associated Diagnosis | Comments | | | ty | | | | + +--------+ + + + | X-RAY ANKLE 3 VIEWS | Routin | 10/14/2019 | Ankle pain, | Results for this | | LEFT | e | 3:27 PM | unspecified | procedure are in the | | | | PST | chronicity, | results section. | | | | | unspecified | | | | | | laterality | | + +--------+ + + + documented in this encounter Results X-RAY ANKLE 3 VIEWS LEFT (10/14/2019 3:27 PM PST) + + | Specimen | + + | | + + + + + | Narrative | Performed At | + + + | EXAM: ANKLE 3 VIEWS LEFT HISTORY: lt ankle pain COMPARISON: | [facility] | | September 08, 2019 FINDINGS: Evidence of prior | RADIOLOGY VOICE | | tibiotalar/subtalar ankle arthrodesis extraction is unchanged. An | RECOGNITION 2 | | antibiotic nail is unchanged in configuration. There is no clear | | | progression of periprosthetic osteolysis. The tibiotalar joint is | | | fused. Configuration of the subtalar joints is unchanged. Areas of | | | multifocal periosteal bone production are unchanged. Subcutaneous | | | edema is unchanged. Diffuse fatty infiltration of the musculature is | | | unchanged. IMPRESSION: No significant change in appearance of | | | the prior hindfoot arthrodesis after hardware extraction and | | | antibiotic nail placement. Subcutaneous edema is unchanged. I have | | | personally reviewed the images and, if necessary, edited the report. | | | I agree with the report as now presented. Final signature: Marino | | | Joselito Alston MD 10/14/2019 3:33 PM Preliminary: Marino Alston MD | | | Dictation initiated: Marino Alston MD 10/14/2019 3:28 PM | | + + + + + | Procedure Note | + + | Service Account, Radiant Res In Interface - 10/14/2019 3:34 PM PST EXAM: ANKLE 3 | | VIEWS LEFT HISTORY: lt ankle pain COMPARISON: September 08, 2019 FINDINGS: Evidence of | | prior tibiotalar/subtalar ankle arthrodesis extraction is unchanged. An antibiotic nail | | is unchanged in configuration. There is no clear progression of periprosthetic | | osteolysis. The tibiotalar joint is fused. Configuration of the subtalar joints is | | unchanged. Areas of multifocal periosteal bone production are unchanged. Subcutaneous | | edema is unchanged. Diffuse fatty infiltration of the musculature is unchanged. | | IMPRESSION: No significant change in appearance of the prior hindfoot arthrodesis after | | hardware extraction and antibiotic nail placement. Subcutaneous edema is unchanged. I | | have personally reviewed the images and, if necessary, edited the report. I agree with | | the report as now presented. Final signature: Marino Alston MD 10/14/2019 3:33 PM | | Preliminary: Marino Alston MD Dictation initiated: Marino Alston MD 10/14/2019 3:28 | | PM | |No significant change in appearance of the prior hindfoot arthrodesis after hardware extrac tion and antibiotic nail placement. Subcutaneous edema is unchanged. | | | |I have personally reviewed the images and, if necessary, edited the report. I agree with th e report as now presented. | | | |Final signature: Marino Alston MD 10/14/2019 3:33 PM | |Preliminary: Marino Alston MD | |Dictation initiated: Marino Alston MD 10/14/2019 3:28 PM | + + + +---------+ + + | Performing | Address | City/State/Zipcode | Phone Number | | Organization | | | | + +---------+ + + | [facility] | | | | | VOICE RECOGNITION 2 | | | | + +---------+ + + documented in this encounter Visit Diagnoses + + | Diagnosis | + + | Ankle pain, unspecified chronicity, unspecified laterality | + + documented in this encounter Additional Health Concerns [...]
--- OUTSIDE RECORDS SUMMARY | ~2020-06-01 | XMS | Encounter Summary ---
Demographics + + + | Address | [address] | | | [place] [address] | + + + | Home Phone | | + + + | Preferred Language | Unknown | + + + | Marital Status | Single | + + + | Voodoo Affiliation | Unknown | + + + | Race | Unknown | + + + | Ethnic Group | Unknown | + + + Author + + + | Author | [facility] | | | and [place] | + + + | Organization | [facility] | | | [...] Team Providers + +------+ + | Care Videographer Name | Role | Phone | + +------+ + | Dustin Perez MD | PCP | | + +------+ + Reason for Visit +---------+ + | Reason | Comments | +---------+ + | Results | [facility]MP, Vacno, CRP, CBC, ESR | +---------+ + Encounter Details +--------+ + + + + | Date | Type | Department | Care Team | Description | +--------+ + + + + | 10/13/ | Documentati | [facility] | Scotty Donovan DO | Results | | 2019 | on | INFECTIOUS DISEASE | [address] | ([facility], | | | | [address] | [place] [address] | Vacno, CRP, CBC, ESR | | | | [place], [place] | [phone] | ) | | | | [address] | | | | | | [phone] | | | +--------+ + + + [...] + | SEDIMENTATION RATE | Routin | 10/13/2019 | | Results for this | | | e | | | procedure are in the | | | | | | results section. | + +--------+ + + + | CBC NO DIFFERENTIAL | Routin | 10/13/2019 | | Results for this | | | e | | | procedure are in the | | | | | | results section. | + +--------+ + + + | C-REACTIVE PROTEIN | Routin | 10/13/2019 | | Results for this | | | e | | | procedure are in the | | | | | | results section. | + +--------+ + + + | VANCOMYCIN, TROUGH | Routin | 10/13/2019 | | Results for this | | | e | | | procedure are in the | | | | | | results section. | + +--------+ + + + | COMPREHENSIVE | Routin | 10/13/2019 | | Results for this | | METABOLIC PANEL | e | | | procedure are in the | | | | | | results section. | + +--------+ + + + documented in this encounter Results Sedimentation Rate (10/13/2019) + +-------+ + + + | Component | Value | Ref Range | Performed | Pathologist | | | | | At | Signature | + +-------+ + + + | ESR | 46 | | REFERENCE | | | | [...] + + | REFERENCE LAB | [address] | [place] | [phone] | | [facility] | | [address] | | + + + + + CBC no Differential (10/13/2019) + +-------+ + + + | Component | Value | Ref Range | Performed | Pathologist | | | | | At | Signature | + +-------+ + + + | WBC | 7.4 | | REFERENCE | | | | | | LAB | | | | | | [facility] | | + +-------+ + + + | RBC COUNT. | 4.56 | | REFERENCE | | | | | | LAB | | | | | | [facility] | | + +-------+ + + + | Hemoglobin | 10.9 | | REFERENCE | | | | | | LAB | | | | | | [facility] | | + +-------+ + + + | HCT, | 34.3 | | REFERENCE | | | External | | | LAB | | | | | | [facility] | | + +-------+ + + + | PLT, | 317 | | REFERENCE | | | External | | | LAB | | | | | | [facility] | | + +-------+ + + + | NEUTROPHILS | 59.1 | % | REFERENCE | | | BL | | | LAB | | | | | | [facility] | | + +-------+ + + + | % Bands | 0 | | REFERENCE | | | | | | LAB | | | | | | [facility] | | + +-------+ + + + | LYMPHOCYTES | 19.9 | % | REFERENCE | | | BL | | | LAB | | | | | | [facility] | | + +-------+ + + + | MONOCYTES | 9.5 | | REFERENCE | | | BAL | | | LAB | | | | | | [facility] | | + +-------+ + + + + + | Specimen | + + | Blood | + + + + + + + | Performing | Address | City/State/Zipcode | Phone Number | | Organization | | | | + + + + + | REFERENCE LAB | [address] | [place], [place] | [phone] | | [facility] | | [address] | | + + + + + C-Reactive Protein (10/13/2019) + +-------+ + + + | Component | Value | Ref Range | Performed | Pathologist | | | | | At | Signature | + +-------+ + + + | CRP | 21.3 | mg/L | REFERENCE | | | | [...] [address] | [place] | [phone] | | [facility] | | [address] | | + + + + + Vancomycin, Trough (10/13/2019) + +-------+ + + + | Component | Value | Ref Range | Performed | Pathologist | | | | | At | Signature | + +-------+ + + + | Vancomycin | 13.8 | ug/mL | REFERENCE | | | [...] + + | REFERENCE LAB | [address] | [place] | [phone] | | [facility] | | [address] | | + + + + + Comprehensive Metabolic Panel (10/13/2019) + +-------+ + + + | Component | Value | Ref Range | Performed | Pathologist | | | | | At | Signature | + +-------+ + + + | Na | 139 | mmol/L | REFERENCE | | | | | | LAB | | | | | | [facility] | | + +-------+ + + + | K | 4.2 | 3.2 - 5.7 | REFERENCE | | | | | mmol/L | LAB | | | | | | [facility] | | + +-------+ + + + | Cl | 103 | mmol/L | REFERENCE | | | | | | LAB | | | | | | [facility] | | + +-------+ + + + | Glucose | 99 | mg/dL | REFERENCE | | | | | | LAB | | | | | | [facility] | | + +-------+ + + + | Urea | 23 | | REFERENCE | | | Nitrogen, | | | LAB | | | Body fluid | | | [facility] | | + +-------+ + + + | Creatinine | 1.29 | | REFERENCE | | | | | | LAB | | | | | | [facility] | | + +-------+ + + + | AST (SGOT) | 11 | | REFERENCE | | | (REF) | | | LAB | | | | | | [facility] | | + +-------+ + + + | ALT (SGPT) | 9 | U/L | REFERENCE | | | (REF) | | | LAB | | | | | | [facility] | | + +-------+ + + + | Alkaline | 94 | U/L | REFERENCE | | | Phosphatase | | | LAB | | | | | | [facility] | | + +-------+ + + + | Bilirubin | 0.3 | mg/dL | REFERENCE | | | Total [...] [address] | [place] | [phone] | | [facility] | | [address] | | + + + + + documented in this encounter Visit Diagnoses Not on filedocumented in this encounter"
--- OUTSIDE RECORDS SUMMARY | ~2020-06-01 | XMS | Encounter Summary ---
Demographics + + + | Address | [address] | | | [place] [address] | + + + | Home Phone | | + + + | Preferred Language | Unknown | + + + | Marital Status | Single | + + + | Spiritism Affiliation | NRP | + + + | Race | White | + + + | Ethnic Group | Not or | + + + Author + + + | Author | [facility] | + + + | Organization | [facility] | + + + | Address [...] Team Providers + +------+ + | Care Inclusion Internship Name | Role | Phone | + [...] | +--------+ + + + + | 09/03/ | Hospital | [facility] [address] | Ariana Guillen, | | | 2019 - | Encounter | [address] | [address] | | | | | 12/S31 [facility] | [address] | | | 09/17/ | | [facility] [place], | [place], [place] | | | 2019 | | [place] [address] | [address] | | | | | [phone] | [phone] | | | | | | | | | | | | Tiffanie Huerta, | | | | | | [address] | | | | | | [address] | | | | | | [place], [place] | | | | | | [address] | | | | | | [phone] | | | | | | | | | | | | Abhilash Fatima MD | | | | | | [address] | | | | | | [facility], | | | | | | [place] [address] | | | | | | [phone] | | | | | | | | | | | | Elizabeth Cobos, | | | | | | [address] [facility] [address] [facility] | | | | | | [facility] | | | | | | [place], [place] | | | | | | [address] | | | | | | [phone] | | | | | | | | | | | | To Henriquez MD | | | | | | [address] | | | | | | [facility], | | | | | | [place] [address] | | | | | | [phone] | | | | | | | [...] as of this encounter Discharge Summaries Johnathan Hemphill MD - 09/17/2019 12:07 PM PST [facility] Discharge Summary Discharging Provider: Johnathan Hemphill MD Discharging Attending Physician: To Henriquez MD PCP: Rio Huerta MD Admission Date: 09/03/2019 Discharge Date: 09/17/2019 Hospital Stay: 14 day(s) Discharge Location: [facility] [place] PH. [phone] [facility] FOLLOW UP NEEDS: 1) Infectious Disease, [facility], ~10/08/2019 2) Orthopedi LILIYA carcamo/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 5. Placement of an external tissue certified master safecracker, area other than breast. 6. Placement of [...] vancomycin trough levels - ID F/U in [place], ~10/08 timeframe - Wound check and suture removal by 09/26/2019; OK for SNF to remove sutures - Ortho F/U ~10/21 timeframe w/ Dr. Carmen in [facility] - Activity restrictions: LLE: NWB, elevated, [...] BLED 4. Former discussion s with his hire car driver decided against anticoagulation; on 81 mg aspirin daily (used to be 325 but reduced to 81 12/14 "GI problems"). - ASA 81 mg daily [...] follow/manage patient "I certify that post-hospital inpatient nursing home facility care is medically necessar y on a continuing basis for treatment of the same condition for which inpatient acute hospit al care was received." JOHNATHAN HEMPHILL MD Discharge Destination - Selection Complete Service Provider Request Status Selected Services Address Phone Number Fax Number Hellen Calvillo Selected Correction [address], [place] [address] Home Care Medical No service has been [...] Surgery Why: For wound re-check Contact information [facility] [place] [address] RIO HUERTA MD. Go on 09/24/2019. Specialty: Family Medicine Why: Appt: Tuesday, September 24, 2019 @ 08:40am. Address: [address] [place] [address], [address], [place], [place] Contact information [facility] [address] [place] [address] Surya Coffman MD. Go on 09/30/2019. Why: Appt: Monday, September 30, 2019 @ 09:45am Contact information [address] [place], [place] [phone] Contact information for after-discharge care Discharge Destination [facility] . Service: Correction Contact information [address] [place] [address] Discharge Physical Exam: Last 24 hour min/max [...] distress Lines: LUE PICC in place Johnathan Hemphill MD PGY - 3 | Internal Medicine | [id number] [facility] Associated attestation - To Henriquez MD - [...] 09/18/2019 Leaner Attestation Statement A resident (Dr. Hemphill) assisted with documenting this service. I saw [...] Primary Surrogate Decision Maker Josué An son [phone] TO HENRIQUEZ MD [address] completions manager Division of Hospital Medicine Department of Medicine [address] [place] [phone] documented in this encounter Discharge Instructions Discharge Instr - Diet (facility) Johnathan Hemphill MD - 09/15/2019 9:38 PM PSTDiet Type: Re gular diet Discharge Instr - Activity (facility) Johnathan Hemphill MD - 09/15/2019 9:35 PM PSTFormattin g of this note might be different from the original. Activity: Weight bearing: non-weight bearing, left lower extremity ROM: Elevate leg as much as tolerated, keep LLE in posterior foot splint Discharge Instr - Additional Instructions (facility) Johnathan Hemphill MD - 09/15/2019 9:39 PM PST Wound [...] follow/manage patient "I certify that post-hospital inpatient nursing home facility care is medically necessar y on a continuing basis for treatment of the same condition for which inpatient acute hospit al care was received." JOHNATHAN HEMPHILL MD Discharge Instr - Electronic Signature Johnathan Hemphill MD - 09/15/2019 9:39 PM PSTAfter Vi sit Summary Signature Electronically signed by: JOHNATHAN HEMPHILL MD, 09/15/2019 at 9:39 PM documented in [...] | | | | | with hardware ([facility]) | | | | | | + [...] (per patient w ++ 1st degree FH) Scraper Burrer re: skin/foot care (a la DM) 10) Alcohol use disorder, mild, in sustained remission, abuse 11) Encounter for long-term (current) use of antibiotics SURROGATE DECISION MAKER Surrogate Decision Maker Primary Surrogate Decision Maker Josué An son [phone] TO HENRIQUEZ MD [address] completions manager Division of [facility] Medicine Department of Medicine [address] [place] [address] Amber Wan MD - 1 11/16/2018 7:13 [...] care, follow up recs - follow up: [facility] ID faculty with preference to schedule with [...] BLED 4. Former discussion s with his hire car driver decided against anticoagulation; on 81 mg aspirin daily (used to be 325 but reduced to 81 2/2 "GI problems"). - held asa in s/o surgery, has been restarted - continue digoxin - goal resting rate <110 # bilateral lower extremity swelling Unclear etiology. Was seeing hire car driver who is prescribing torsemide 10 mg daily [...] Dispo: patient ready to discharge tomorrow to [facility] in [place]. Code Status: Full Code Surrogate Decision Maker Primary Surrogate Decision Maker Josué An son [phone] This patient was staffed with Dr. To [...] there are not currnet signs of decompensation Scraper Burrer on his 'near miss' and importance of good 'liver care' in future 9) Neuropathy, hereditary sensory (per patient w ++ 1st degree FH) Not noted in 'history' but with suggestion of pes cavus, and ++ family history it does r aise the qn of Khkuxsf-Sewuo-Qaans Could have been contributor to osteo Scraper Burrer re: skin/foot care (a la DM) 10) Alcohol use disorder, mild, in sustained remission, abuse 11) Encounter for long-term (current) use of antibiotics SURROGATE DECISION MAKER Surrogate Decision Maker Primary Surrogate Decision Maker Josué An son [phone] [facility] 4A completions manager Division of Hospital Medicine Department of Medicine [facility] & [address]/[facility] [place] [phone] Amber Wan MD - 1 11/15/2018 6:26 [...] care, follow up recs - follow up: [facility] ID faculty with preference to schedule with [...] BLED 4. Former discussion s with his hire car driver decided against anticoagulation; on 81 mg aspirin daily (used to be 325 but reduced to 81 2/2 "GI problems"). - held asa in s/o surgery, has been restarted - continue digoxin - goal resting rate <110 # bilateral lower extremity swelling Unclear etiology. Was seeing hire car driver who is prescribing torsemide 10 mg daily [...] used majority of his medicare SNF days, pillowcase cleaner working to determine whethe r paying out of pocket is an option vs investigate other dispo options. Code Status: Full Code Surrogate Decision Maker Primary Surrogate Decision Maker Josué An son [phone] This patient was staffed with Dr. To Henriquez, who agrees with the assessment and plan unle ss otherwise stated. Amber Nñio Internal Medicine, PGY-1 Amber Wan MD - [...] care, follow up recs - follow up: [facility] ID faculty with preference to schedule with [...] BLED 4. Former discussion s with his hire car driver decided against anticoagulation; on 81 mg aspirin daily (used to be 325 but reduced to 81 2/2 "GI problems"). - held asa in s/o surgery, has been restarted - continue digoxin - goal resting rate <110 # bilateral lower extremity swelling Unclear etiology. Was seeing hire car driver who is prescribing torsemide 10 mg daily [...] used majority of his medicare SNF days, pillowcase cleaner working to determine whethe r paying out of pocket is an option vs investigate other dispo options. Code Status: Full Code Surrogate Decision Maker Primary Surrogate Decision Maker Josué An son [phone] This patient was staffed with Dr. To [...] stenosis or insuff iciency: Aug 26, 2018: Located [facility] [employer]) 7) Essential hypertension 8) "Cirrhosis, Laennec's" (HCC) [...] it does r aise the qn of Webwyjz-Hdctu-Hyrgd Could have been contributor to osteo Scraper Burrer re: skin/foot care (a la DM) 10) Alcohol use disorder, mild, in sustained remission, abuse 11) Encounter for long-term (current) use of antibiotics SURROGATE DECISION MAKER Surrogate Decision Maker Primary Surrogate Decision Maker Josué An son [phone] TO HENRIQUEZ MD [address] completions manager Division of [facility] Medicine Department of Medicine [facility] [address] [place] [phone] To Leach MD - 09/13 12:33 PM PDT INPATIENT [...] 09/13/2019 Leaner Attestation Statement A resident (Dr. Hemphill) assisted with documenting this service. I saw [...] & no brach ial-radial delay Marked, overt, Juni III bilateral gynecomastia (same today) ++ abd [...] stenosis or insuff iciency: Aug 26, 2018: [facility]) 7) Essential hypertension 8) "Cirrhosis, Laennec's" [...] it does r aise the qn of Slmejfa-Wxhso-Pxgxu Could have been contributor to osteo Scraper Burrer re: skin/foot care (a la DM) 10) Alcohol use disorder, mild, in sustained remission, abuse 11) Encounter for long-term (current) use of antibiotics SURROGATE DECISION MAKER Surrogate Decision Maker Primary Surrogate Decision Maker Josué An son [phone] TO HENRIQUEZ MD [address] completions manager Division of Hospital Medicine Department of Medicine [facility] & [address] [place] [address] Johnathan Roach MD - 12/2018 11:07 AM PDT General [...] care, follow up recs - follow up: [facility] ID faculty with preference to schedule with [...] BLED 4. Former discussion s with his hire car driver decided against anticoagulation; on 81 mg aspirin daily (used to be 325 but reduced to 81 2/2 "GI problems"). - held asa in s/o surgery, has been restarted - continue digoxin - goal resting rate <110 # bilateral lower extremity swelling Unclear etiology. Was seeing hire car driver who is prescribing torsemide 10 mg daily [...] used majority of his medicare SNF days, pillowcase cleaner working to determine whethe r paying out of pocket is an option vs investigate other dispo options. Code Status: Full Code Surrogate Decision Maker Primary Surrogate Decision Maker Josué An son [phone] This patient was staffed with Dr. To Henriquez, who agrees with the assessment and plan unle ss otherwise stated. Johnathan Hemphill MD PGY - 3 | Internal Medicine | [id number] [facility] untTo justice MD - 11/2018 8:01 AM PDT INPATIENT FACULTY PROGRESS NOTE - GM 2 Author; OT HENRIQUEZ MD Attending Physician: To Henriquez MD [...] stenosis or insuff iciency: Aug 26, 2018: [facility]) 7) Essential hypertension 8) "Cirrhosis, Laennec's" [...] it does r aise the qn of Yabwtkt-Juwcj-Yzjdi Could have been contributor to osteo Scraper Burrer re: skin/foot care (a la DM) 10) Alcohol use disorder, mild, in sustained remission, abuse 11) Encounter for long-term (current) use of antibiotics SURROGATE DECISION MAKER Surrogate Decision Maker Primary Surrogate Decision Maker Josué An son [phone] I spent ~40 minutes in the care of this patient. Greater than 50% of the time was spent co unseling and coordination of care, including visit x 3; extensive chart review (on ramos) TO HENRIQUEZ MD [address] completions manager Division of Hospital Medicine Department of Medicine [facility] & [address] [place] [phone] Gauri Walsh MD - 09/12/2019 7:07 AM PDT General [...] care, follow up recs - follow up: [facility] ID faculty with preference to schedule with [...] BLED 4. Former discussion s with his hire car driver decided against anticoagulation; on 81 mg aspirin daily (used to be 325 but reduced to 81 2/2 "GI problems"). - held asa in s/o surgery, has been restarted - continue digoxin - goal resting rate <110 # bilateral lower extremity swelling Unclear etiology. Was seeing hire car driver who is prescribing torsemide 10 mg daily [...] used 90/100 of his medicare SNF days, pillowcase cleaner working to determine whether paying out of pocket is an option vs investigate other dispo options. Code Status: Full Code Surrogate Decision Maker Primary Surrogate Decision Maker Josué An son [phone] This patient was staffed with Dr. To Henriquez, who agrees with the assessment and plan unle ss otherwise stated. Gauri Strickland MD Internal Medicine [id number] signed by To Henriquez MD at 09/12/2019 [...] care, follow up recs - follow up: [facility] ID faculty with preference to schedule with [...] BLED 4. Former discussion s with his hire car driver decided against anticoagulation; on 81 mg aspirin daily (used to be 325 but reduced to 81 12/14 "GI problems"). - held asa in s/o surgery, has been restarted - continue digoxin - goal resting rate <110 # bilateral lower extremity swelling Unclear etiology. Was seeing hire car driver who is prescribing torsemide 10 mg daily [...] used 90/100 of his medicare SNF days, pillowcase cleaner working to determine whether paying out of pocket is an option vs investigate other dispo options. Code Status: Full Code Surrogate Decision Maker Primary Surrogate Decision Maker Josué An son [phone] This patient was staffed with Dr. Huerta, [...] eager to contin ue conversation with his pillowcase cleaner about discharge planning. Physical Examination: Last 24 [...] care, follow up recs - follow up: [facility] ID faculty with preference to schedule with [...] BLED 4. Former discussion s with his hire car driver decided against anticoagulation; on 81 mg aspirin daily (used to be 325 but reduced to 81 2/2 "GI problems"). - held asa in s/o surgery, has been restarted - continue digoxin - goal resting rate <110 # bilateral lower extremity swelling Unclear etiology. Was seeing hire car driver who is prescribing torsemide 10 mg daily [...] used 90/100 of his medicare SNF days, pillowcase cleaner working to determine whether paying out of pocket is an option vs investigate other dispo options. Code Status: Full Code Surrogate Decision Maker Primary Surrogate Decision Maker Josué An son [phone] This patient was staffed with Dr. Huerta, who agrees with the assessment and plan unless otherwise stated. Gauri Strickland MD Internal Medicine [id number] signed by Tiffanie Huerta MD at 09/10/2019 [...] 72 hours (or 3 results) Recent Labs 09/08/19 0452 09/10/19 0605 WBC 5.51 5.90 HB 8.8* 8.9* HCT 29.3* 29.2* PLT 306 388 Chemistries: Last 72 Hours (or 3 results): Recent Labs 09/08/19 0452 09/10/19 0605 NA 138 141 K 3.9 4.0 [...] has not been an issue. Enjoys working [facility] physical therapy. Denies dyspnea, nausea, abdominal pain, constipation. Fine with getting PICC line and understands need for terminal operator IV antibiotics. Physical Examination: Last 24 hour [...] care, follow up recs - follow up: [facility] ID faculty with preference to schedule with [...] BLED 4. Former discussion s with his hire car driver decided against anticoagulation; on 81 mg aspirin daily (used to be 325 but reduced to 81 2/2 "GI problems"). - held asa in s/o surgery, has been restarted - continue digoxin - goal resting rate <110 # bilateral lower extremity swelling Unclear etiology. Was seeing hire car driver who is prescribing torsemide 10 mg daily [...] Primary Surrogate Decision Maker Josué An son [phone] This patient was staffed with Dr. Huerta, who agrees with the assessment and plan unless otherwise stated. Gauri Strickland MD Internal Medicine [id number] signed by Tiffanie Huerta MD at 09/10/2019 [...] hindfoot. 5. Placement of an external tissue certified master safecracker, area other than breast. 6. Placement of [...] vancomycin, until further notice, ID consult for terminal operator plan 5. Special Concerns: case managment for discharge planning, likely discharge to SNF in [place] Wound Care consulted 6. Dressings/Drains: DRESSING CARE [...] ok to discharge from ortho perspective o nce OPAT plan and dispo arrangements have been [...] 2 seconds Aidan Antonio MD Orthopedic Surgery [id number] 11:15 AM Cory Shaikh MD - 09/09/2019 [...] the plan as listed. Cory Carmen MD [facility] 4A [address] [facility] [address] [place] [address] Cory Carmen Gauri Walsh MD - 09/08/2019 7:27 AM PDT General Internal Medicine 3 Progress Note 24 Hour Events: Pharmacy completed med rec via [facility] records per pharm: "Torsemide, potassium chloride, A SA, MVI, vitamin B12, and thiamine were added to GENERAL SALES MANAGER medication list. Of note, patient has n [...] BLED 4. Former discussion s with his hire car driver decided against anticoagulation; on 81 mg aspirin daily (used to be 325 but reduced to 81 2/ "GI problems"). - held asa in s/o surgery, has been restarted - continue digoxin - goal resting rate <110 # bilateral lower extremity swelling Unclear etiology. Was seeing hire car driver who is prescribing torsemide 10 mg daily [...] Primary Surrogate Decision Maker Josué An son [phone] This patient was staffed with Dr. Huerta, who agrees with the assessment and plan unless otherwise stated. Gauri Strickland MD Internal Medicine [id number] signed by Tiffanie Huerta MD at 09/08/2019 [...] present. - he has been comfortable at [facility] assisted living with aggressive PT in the past [facility] is close to [place], his home. Deepthi Collazo AGACNP - 09/08/2019 [...] hindfoot. 5. Placement of an external tissue certified master safecracker, area other than breast. 6. Placement of [...] vancomycin, until further notice, ID consult for terminal operator plan 5. Special Concerns: case managment for discharge planning, likely discharge to SNF in [place] Wound Care consulted 6. Dressings/Drains: DRESSING CARE [...] ok to discharge from ortho perspective o nce OPAT plan and dispo arrangements have been [...] Intake/Output Summary (Last 24 hours) at 09/08/2019 0649 Last data filed at 09/08/2019 0645 Gross [...] capillary refill < 2 seconds Deepthi Collazo, [facility] Orthopaedic Trauma Surgery Pager [phone] Associated attestation - Cory Carmen MD - [...] input. I will be following this patient usp, rather than Dr cochran or Elan. I discussed the diagnosis, imaging studies, treatment plan and prognosis with the patient and resident. I have reviewed and the above note and agree with the plan. Please do not he sitate to call me for questions. Cory Carmen MD [facility] 4A [address] [place] [address] Arnold Taylor MD - 09/07/2019 6:22 PM PDTFormatting of this note might be differ ent from the original. Orthopaedic Surgery Progress Note Patient: /Age: MRN: CSN: Date: Admission Date: Hospital Day: Attending Physician: Monty An 1950 69 y.o. [id number] 09/07/2019 09/03/2019 4 Garth Cochran MD Procedure(s) Performed: 1. Irrigation and excisional [...] SpO2 98%, BMI 27.94 kg/(m^2). Facility age [facility] for growth percentiles is 18 years. Exam: General: Well appearing, NAD CV/Resp: Breathing comfortably, Neurologic: Awake and alert MSK: LLE Dressings c/d/i Insensate about the lower leg/foot Wiggles toes WWP distally ARNOLD TAYLOR MD Pager: [phone] 09/07/2019 Associated attestation - Garth Cochran MD - 09/08/2019 12:11 PM PDTI agree [...] appetite good, concerns are c entered around terminal operator places, specifically timeline of rehab and wound healing, as well a s what recovery will look like if he were to get a BKA. Reassured that no decisions need to be made now, can involve case management Sunday to look at SNFs. He has been to [facility] in [place] previously. Physical Examination: Last 24 hour min/max [...] BLED 4. Former discussion s with his hire car driver decided against anticoagulation; on 81 mg aspirin daily (used to be 325 but reduced to 81 2/2 "GI problems"). - held asa in s/o surgery, restart - continue digoxin - goal resting rate <110 # bilateral lower extremity swelling Unclear etiology. Was seeing hire car driver who is prescribing torsemide 10 mg daily [...] Primary Surrogate Decision Maker Josué An son [phone] This patient was staffed with Dr. Huerta, who agrees with the assessment and plan. Gauri Strickland MD Internal Medicine [id number] signed by Tiffanie Huerta MD at 09/07/2019 [...] in team note. - [facility] in [place] would be a reasonable SNF for him he reports ( though the food is "terrible" the PT is excellent) Aidan Antonio MD - 09/06/2019 7:37 AM PDTORTHOPAEDICS BRIEF PROGRESS NOTE Patient: Monty nA Date: 09/06/2019 Time: 7:37 AM Patient to go to OR today with Dr. Cochran. He is doing otherwise well this morning [...] seco nds Aidan Antonio MD Orthopedic Surgery [id number] 7:37 AM 09/06/2019 Gauri Walsh MD - [...] DM); HAS BLED 4. Former discussions with [facility] hire car driver decided against anticoagulation; on 81 mg aspirin daily (used to be 325 but r educed to 81 2/ "GI problems"). - hold asa in s/o surgery - continue digoxin - goal resting rate <110 # bilateral lower extremity swelling Unclear etiology. Was seeing hire car driver who is prescribing torsemide 10 mg daily [...] Primary Surrogate Decision Maker Josué An son [phone] This patient was staffed with Dr. Huerta, who agrees with the assessment and plan. Gauri Strickland MD Internal Medicine [id number] signed by Tiffanie Huerta MD at 09/06/2019 [...] Orthopaedic Attending: Monty An 1950 69 y.o. [id number] 09/05/2019 09/03/2019 2 Olivier Ansari MD Diagnosis(es): [...] to make a follow up appointment in [facility] 2 weeks with ORTHO TRAUMA & FRACTURE, [...] es pink and warm. Noel Baptiste MD [facility] Department of Orthopaedics & Rehabilitation [address] [facility] Mail Code: OP31 [place] [address] Associated attestation - Olivier Ansari MD - 09/06/2019 6:21 AM PDTPatient seen/examin ed. Agree with note/plan. Discussed with Dr Cochran, plan for washout likely tomorrow. Gauri Adames [...] p leonor for serial debridements, next likely tomorr or Sunday. - NPO at midnight, hold [...] DM); HAS BLED 4. Former discussions with [facility] hire car driver decided against anticoagulation; on 81 mg aspirin daily (used to be 325 but r educed to 81 2/2 "GI problems"). - hold asa in s/o surgery - continue digoxin - goal resting rate <110 # bilateral lower extremity swelling Unclear etiology. Was seeing hire car driver who is prescribing torsemide 10 mg daily [...] Primary Surrogate Decision Maker Josué An son [phone] This patient was staffed with Dr. Huerta, who agrees with the assessment and plan. Gauri Strickland MD Internal Medicine [id number] signed by Tiffanie Huerta MD at 09/06/2019 [...] 72 Hours (or 3 results): Recent Labs 09/03/19192309/04/1952109/04/19 1401 NA 137 138 -- K 3.7 3.7 -- CL 104 105 -- BICARB 28 26 -- BUN 15 14 -- EGFRAFRICAN >60 >60 -- CR 0.92 0.87 -- GLU 84 83 89 CA 8.9 9.1 -- MG -- 2.2 -- EKG: irregularly irregular, rate 96, Qtc 507 Echo : 08/27/2018: [facility]: Atrial fibrillation. Technically adequate study. EF 65- [...] BLED 4 . Former discussions with his hire car driver decided against anticoagulation; on 81 mg aspirin daily (used to be 325 but reduced to 81 2/2 "GI problems"). - hold asa in s/o surgery - continue digoxin - goal resting rate <110 # bilateral lower extremity swelling Unclear etiology. 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 Huerta, [...] 72 hours (or 3 results) Recent Labs 09/03/19 1911 09/04/19 0522 WBC 8.07 6.44 HB 10.2* 10.7* HCT 32.8* 33.8* PLT 363 338 NEUTROPERC 74.1* -- LYMPHPERC 12.1* -- MONOPERC 10.0* -- BASOPERC 0.4 -- EOSPERC 3.0 -- Chemistries: Last 72 Hours (or 3 results): Recent Labs 09/03/19 1924 09/04/19 0522 09/04/19 1401 NA 137 138 -- [...] he does over night and reassess. Patric Salazar, Ilir Martins - 09/03/2019 9:35 PM PDTInternal Medicine - Brief Resident Admit Note ID/HPI: Was seen by cardiology 09/01 who note exposed screw, stated he had noticed this ~1 week ago Has been getting wound care at facility where he lives in [facility], was discharged to home I called and spoke with night RN at [facility] He discharged home yesterday from facility They had noted exposed hardware last week, cultured wound which has not grown and started o n PO levofloxacin 500mg daily and augmentin on 09/02 He was seen by Dr Castellano at [facility] who requested transfer to [facility] for orthopedic eval From last cardiology note [...] within 24 hours. Please refer to excellent investigator internal affairs H&P for full problem based plan. ILIR SPIVEY MD Internal Medicine, PGY-3 Pager: [phone] documented in this encou nter Plan of [...] | | 09/03/2019 until | | | [facility] | [...] + | ANDREW DINH | Routin | 09/09/2019 | | Results [...] FOOT AND ANKLE SOFT | Electi | 09/06/2019 | left foot | | | TISSUE PROCEDURE | ve | 11:21 AM | infection | | | | Surgic | PDT [...] | + + + + + | [facility] | [address] | [place] [address] | | | SERVICES, CORE | [address] | | | + + + [...] Hematopathology | | | | | | FellowMarrosa Deal MD, | | | | | | PhD - | | | | | | HematopathologistPatholo | | | | | | gy, [facility] & | | | | | | [facility] | | | | | | [...] + + +--------- --------+ | Gross | Gilbert Olivares-stained | | [facility] | | | [...] | + + + + + | [facility] | [address] | [place] [address] | | | PATHOLOGY | [address] [...] | + + + + + | [facility] | [address] | [place] [address] | | | FERMÍN ZABALA | [address] | | | + + + + + HEMATOPATHOLOGY SLIDE CREATION (09/15/2019 4:19 AM PST) + + | Specimen | + + | Blood - Blood | | (substance) | + + + + + + + | Performing | Address | City/State/Zipcode | Phone Number | | Organization | | | | + + + + + | [facility] | [address] | [place] [address] | | | FERMÍN ZABALA | [address] | | | + [...] | | | LABORATORY | | | [place] [place]IAN | | | SERVICES, | | | [...] | + + + + + | [facility] | [address] [facility] [facility] | [place] [address] | | | VJ, FERMÍN | [address] | | | [...] | + + + + + | [facility] | [address] | [place] [address] | | | SERVICES, CORE | [address] [...] | + + + + + | [facility] | [address] | [place] [address] | | | SERVICES, CORE | PARK [...] 1.03 | 0.90 - 1.20 INR | [facility] | | | | | | LABORATORY | | | | | | VJ, | | | | | | FERMÍN | | + + + + + [...] | + + + + + | [facility] | [address] | [place] [address] | | | SERVICES, CORE | DW[address] [...] + | [facility] | [address] | [place] [address] | | | SERVICES, CORE | PARK [...] + + + + + | [facility] | [address] | [place] [address] | | | VJ, FERMÍN | [address] | | | [...] | | | LABORATORY | | | SAUD[place] ARABIAN | | | SERVICES, | | | [...] | + + + + + | [facility] | [address] [facility] [address] [facility] [facility] | [place] [address] | | | SERVICES, CORE | DW[address] [...] + + | [facility] | [address] | [place] [address] | | | SERVICES, CORE | PARK [...] | | | LABORATORY | | | SAUD[place] | | | SERVICES, | | | [...] MDRD equation recommended by the National | [facility] | | Kidney Disease Education Program. Estimated [...] | + + + + + | [facility] | [address] | [place] [address] | | | SERVICES, [facility] | [address] | | | + + + + + X-RAY PORTABLE CHEST PICC LINE CHECK (09/09/2019 7:29 PM PDT) + + | Specimen | + + | | + + + + + | Narrative | Performed At | + + + | EXAM: AL CHEST PICC LINE CHECK HISTORY: Verify Catheter tip; | [facility] | | Catheter pulled back after inital [...] Radha Santoyo MD Dictation initiated: Radha Santoyo MD 09/09/2019 8:43 PM | | + + + + + | Procedure Note | + + | Service Account, Igor Res In Interface - 09/09/2019 8:46 PM PDT EXAM: AL CHEST | | PICC LINE CHECK HISTORY: [...] At | + + + | EXAM: AL CHEST 1 VIEW HISTORY: PICC placement COMPARISON: [...] Interface - 09/09/2019 4:46 PM PDT EXAM: AL CHEST 1 | | VIEW HISTORY: PICC [...] Diagnosis: Cellulitis LE Procedure location: Unit: Room: [facility] | | | Providers: Attending name: Attending physically present: No PICC | | | Nurse name: Yenifer Barboza RN BSN VAT Assisted by Marty | | | Chantel HALLN VAT Pre-Procedure Consent: written consent | | | obtained Consent given by: Patient Patient identity confirmed per | | | protocol: Yes Team Pause: Immediatly prior to the procedure a pause | | | per protocol was called. A pause verifies correct patient, | | | procedure, equipment, applications support engineer and site/side marked as | | | [...] vein. Catheter lot number: | | | [id number] with a length of 55 cm was [...] [facility] | [address] | [place] [address] | | | SERVICES, CORE | PARK [...] [facility] | [address] | [place] [address] | | | SERVICES, CORE | PARK [...] | + + + + + | [facility] | [address] [facility] [facility] | [place] [address] | | | VJ, FERMÍN | [address] | | | [...] | + + + + + | [facility] | [address] [facility] | [place] [address] | | | SERVICES, CORE | [address] | | | + + + + + X-RAY TIBIA & FIBULA 2 VIEWS LT (09/08/2019 1:56 PM PDT) + + | Specimen | + + | | + + + + + | Narrative | Performed At | + + + | EXAM: TIBIA AND FIBULA 2 VIEWS LT HISTORY: s/p Hardware Removal | [facility] | | COMPARISON: 09/03/2019 FINDINGS: There has [...] Preliminary: Damion Baxter DO Dictation initiated: Damion | | DO Vee 09/08/2019 2:20 PM | |Interval left ankle [...] | [facility] | [address] | [place] [address] | | | SERVICES, CORE | PARK [...] | | | LABORATORY | | | [place] [place] | | | SERVICES, | | | [...] | + + + + + | [facility] | [address] [facility] | [place] [address] | | | SERVICES, FERMÍN | [address] | | | [...] | + + + + + | [facility] | [address] | [place] [address] | | | VJ, FERMÍN | [address] [...] [facility] | [address] | [place], [place] | | | LUISA POINT OF CARE | [address] | [address] | | | TESTS | | | [...] | + + + + + | [facility] | [address] | [place] [address] | | | VJ, FERMÍN | [address] | | | [...] | | | LABORATORY | | | [place] [place] | | | SERVICES, | | | [...] | + + + + + | [facility] | [address] | [place] [address] | | | SERVICES, CORE | DW[address] [...] [facility] | [address] | [place] [address] | | | SERVICES, | [address] [...] [facility] | [address] | [place] [address] | | | SERVICES, | [address] | | | | TRANSFUSION MEDICINE | | | | + + + + + VASC LAB ANKLE BRACH INDICS W YUAN ALTMAN (09/05/2019 1:51 PM PDT) + + | [...] | | | + +---------+ + + VAS LAB VENOUS DUPLEX LOWER EXTREMITY LT (09/05/2019 [...] Note | + + | Service Account, [place] Res In Interface - 09/05/2019 4:56 PM [...] | | + +---------+ + + | [facility] | | | | | [facility] | | | | + +---------+ [...] | + + + + + | [facility] | [address] | [place] [address] | | | SERVICES, CORE | PARK [...] [facility] | [address] | [place] [address] | | | SERVICES CORE | [address] | | | [...] + + + + + + | [facility] | 507 | ms | [facility] [...] DEPT OF | [address] | [place], [place] | | | CARDIOLOGY | [address] | [address] | | + + + + + [...] + + + | [facility] | [address] | [place], [place] | | | [facility] | [address] | [address] | | | TESTS | | | [...] | | | | (A) | | [facility] | | + + + + + [...] B for complete identification and susceptibilities | [facility] | | Enterococcus faecalis Unable to continue [...] + | [facility] - | [address] | [place] [address] | | | [place] | | | | + + + [...] | + + + + + | [facility] | [address] | [place] [address] | | | [place] | | | | + + + [...] 09/04/2019 at | AIRPORT - | | 122, site B for complete identification and susceptibilities | [place] | | Enterococcus faecalis Refer to culture collected 09/04/2019 at 1221, | | | site E for susceptibilities [...] + | [facility] - | [address] | [place] [address] | | | [place] | | | [...] squamous epithelial cells Rare polymorphonuclear cells | [facility] | | No organisms seen | [...] + | [facility] - | [address] | [place] [address] | | | [place] | | | [...] 14 Days Gram Stain: No squamous | [facility] - | | epithelial cells No polymorphonuclear cells No organisms seen | [facility] - | | | [place] | + + + + + + + + | Performing | Address | City/State/Zipcode | Phone Number | | Organization | | | | + + + + + | [facility] | [address] | [place] [address] | | | [place] | | | [...] [facility] | [address] | [place] [address] | | | SERVICES, CORE | [address] [...] | + + + + + | [facility] | [address] | [place] [address] | | | SERVICES, CORE | PARK [...] | | | LABORATORY | | | SAUD[place]IAN | | | SERVICES, | | | [...] | + + + + + | [facility] | [address] [facility] [facility] | [place] [address] | | | FERMÍN ZABALA | [address] [...] [facility] | [address] | [place] [address] | | | SERVICES, CORE | PARK [...] | + + + + + | [facility] | [address] | [place] [address] | | | FERMÍN ZABALA | [address] | | | + [...] | [facility] | | considered for monitoring usp glycemic control in patients with: | LABORATORY [...] | + + + + + | [facility] | [address] | [place] [address] | | | VJ, SPECIAL | [address] | | | | IMM + [...] - | | | | | | [place] | | + +---------+ + + + + + | Specimen | + + | Blood - Blood | | (substance) | + + + + + + + | Performing | Address | City/State/Zipcode | Phone Number | | Organization | | | | + + + + + | [facility] | [address] | [place] [address] | | | [place] | | | [...] | + + + + + | [facility] | [address] | [place] [address] | | | SERVICES, CORE | PARK [...] | + + + + + | [facility] | [address] | [place] [address] | | | FERMÍN ZABALA | [address] | | | + + + + + RAINBOW HOLD TUBE - BLUE TOP (09/03/2019 7:25 PM PDT) + + | Specimen | + + | Blood - Blood | | (substance) | + + + + + + + | Performing | Address | City/State/Zipcode | Phone Number | | Organization | | | | + + + + + | [facility] | [address] | [place] [address] | | | SERVICES, CORE | PARK [...] | + + + + + | [facility] | [address] | [place] [address] | | | SERVICES, CORE | [address] | | | + + + + + BG-JARODPOC ISTAT (09/03/2019 7:25 PM PDT) + +-------+ + + + | Component | Value | Ref Range | Performed | Pathologist | | | | | At | Signature | + +-------+ + + + | TOTAL CO2 | 28 | 23 - 29 mmol/L | [facility] | | | JACINTO, POC | | | [facility] | | | | | | [facility] | | | | | | OF CARE | | | | | | TESTS | | + +-------+ + + + | PH VENOUS, | 7.44 | 7.35 - 7.45 | [facility] - | | | POC | | | [facility] | | | | | | ALEX [facility] | | | | | | OF CARE | | | | | | TESTS | | + +-------+ + + + | PCO2 | 40 | 35 - 50 mmHg | [facility] - | | | VENOUS, POC | | | [facility] | | | | | | [facility]LEX [facility] | | | | | | OF CARE | | | | | | TESTS | | + +-------+ + + + | HCO3 | 27 | 22 - 28 mmol/L | [facility] - | | | VENOUS, POC | | | [facility] | | | | | | [facility]LEX [facility] | | | | | | OF CARE | | | | | | TESTS | | + +-------+ + + + | PO2 VENOUS, | 41 | 30 - 55 mmHg | [facility] - | | | POC | | | [facility] | | | | | | [facility]LEX [facility] | | | | | | OF CARE | | | | | | TESTS | | + +-------+ + + + | O2 SAT | 79 | 95 - 98 % | [facility] - | | | VENOUS, POC | | | [facility] | | | | | | [facility]LEX [facility] | | | | | | OF CARE | | | | | | TESTS | | + +-------+ + + + | LACTATE | 0.8 | 0.5 - 2.0 | [facility] - | | | VENOUS, POC | | mmol/L | [facility] | | | | | | [facility]LEX [facility] | | | | | | OF CARE | | | | | | TESTS | | + +-------+ + + + | PAT TEMP | 97.8 | | [facility] - | | | VENOUS,POC | | | [facility] | | | | | | [facility] | | | | | | OF CARE | | | | | | TESTS | | + +-------+ + + + | BASE EXCESS | 3.0 | -2 - 3 mmol/L | [facility] | | | JAC[facility], POC | | | [facility] | | | | | | ALEX [...] + + + | [facility] | [address] | [place], [place] | | | ALEX MORAN OF STAR | [facility] | [address] | | | TESTS | | | [...] | + + + + + | [facility] | [address] | [place] [address] | | | SERVICES, CORE | [address] | | | + + + + + ETHANOL (ALCOHOL), BLOOD (09/03/2019 7:24 PM PDT) + +-------+ + + + | Component | Value | Ref Range | Performed | Pathologist | | | | | At | Signature | + +-------+ + + + | ETHANOL | <10 | <10 mg/dL | [facility] | | | (ALCOHOL) | | | [...] | + + + + + | [facility] | [address] | [place] [address] | | | SERVICES, FERMÍN | [address] [...] | + + + + + | [facility] | [address] | [place] [address] | | | SERVICES, CORE | [address] [...] [facility] | [address] | [place] [address] | | | SERVICES, CORE | [address] [...] | | | LABORATORY | | | [place] | | | SERVICES, | | | [...] MDRD equation recommended by the National | [facility] | | Kidney Disease Education Program. Estimated [...] | + + + + + | [facility] | [address] | [place] [address] | | | SERVICES, CORE | [address] | | | + + + + + X-RAY ANKLE 2 VIEWS LEFT (09/03/2019 7:22 PM PDT) + + | Specimen | + + | | + + + + + | Narrative | Performed At | + + + | EXAM: TIBIA AND FIBULA 2 VIEWS LT, ANKLE 2 VIEWS LEFT HISTORY: | [place] | | cellulitis, hardware in place, concern [...] [facility] | [address] | [place] [address] | | | SERVICES, | [address] [...] | + + + + + | [facility] | [address] | [place] [address] | | | SERVICES, CORE | [address] [...] + | [facility] | [address] | [place] [address] | | | SERVICES, CORE | P[address] [...] | + + + + + | [facility] | [address] | [place] [address] | | | SERVICES, CORE | [address] | | | + + + + + documented in this encounter Visit Diagnoses + + | Diagnosis | + + | Necrotizing soft tissue infection - Primary | + + | 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) | + + | Abscess Cellulitis and abscess of unspecified site | + + | Osteomyelitis of left ankle, unspecified type (HCC) | + + | Atrial fibrillation (HCC) Atrial fibrillation | + + | Alcohol use disorder, mild, in sustained remission, abuse | + + | Encounter for long-term (current) use of antibiotics | + + | MRSA (methicillin resistant Staphylococcus aureus) Methicillin resistant | | Staphylococcus aureus in conditions classified elsewhere and of unspecified site | + + | "Cirrhosis, 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 | + + | Essential hypertension | + + | Neuropathy, 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 | + + | Gynecomastia, male (Juni III) Hypertrophy of breast | + + documented in this encounter [...] First dose on Sun | | AM PST | | | [...] | | | | | NEEDED, Starting [facility] 09/04/19 at | | 19 4:05 | | | | | 0239, Until Sun09/17/19 at 1808, | | AM PST | [...] (SUBLIMAZE) injection | Given | 09/06/20 | 25 mcg | | | | 25-50 mcg 25-50 mcg, | | 19 2:41 | | | | | intravenous, POSTPROCEDURE PRN, 8 | | PM PDT | | | | | doses, Starting 09/06/19 at | | | | | | | 1105, Until 09/06/19 at 1639, | | | | | | | [...] +--------+---+---+ | HYDROmorphone (DILAUDID) | Given | 09/04/20 | 0.5 mg | | | | injection 0.2-0.5 mg 0.2-0.5 mg, | | 19 3:31 | | | | | intravenous, POSTPROCEDURE PRN, | | PM PDT | | | | | Starting Shania 09/04/19 at 1039, | | | | | | | Until Shania 09/04/19 at 1628, | | | | | | | moderate pain while in Phase I | | | | | | | Recovery, if unable to take PO | | | | | | + +-------+ +--------+---+---+ +-------+ +--------+---+---+ | Given | 09/04/20 | 0.5 mg | | | | | 19 3:14 | | | | | | PM PDT | | | | +-------+ +--------+---+---+ | Given | 09/04/20 | 0.5 mg | | | | | 19 2:59 | | | | | | PM PDT | | | | +-------+ +--------+---+---+ +---+---+ | | | +---+---+ + +-------+ +--------+---+---------+ | influenza high-dose vaccine | Given | 09/17/20 | 0.5 mL | | Left | | (FLUZONE HIGH-DOSE) (PF) IM | | 19 9:25 | | | Deltoid | | injection (age 65 years or | | AM PST | | | | | greater) 0.5 mL 0.5 mL, | | | | | | | intramuscular, DAY OF DISCHARGE, | | | | | | | 1 dose, Starting Shania 09/04/19 at | | | | | | | 0743, Until 09/17/19 at 0925, | | | | | | | Flu vaccination per delegation | | | | | | | protocol | | | | | | + +-------+ +--------+---+---------+ +---+---+ | | | +---+---+ + +---------+ + +---+---+ | lactated ringers IV 1,000 mL, | New Bag | 09/03/20 | 1,000 mL | | | | intravenous, ONCE, 1 dose, Wed | | 19 7:24 | | | | | 09/03/19 at 1930 | | PM PDT | | | | + +---------+ + +---+---+ +---+---+ | | | [...] | | | | First dose on [facility] 09/04/19 at | | AM PST [...] PDT | | | | | Starting [facility] 09/04/19 at 1845, | | | | | | | Until [facility] 09/17/19 at 1808, | | | | | [...] | oxyCODONE (immediate release) | Given | 09/04/20 | 5 mg | | | | (ROXICODONE) tablet 5-10 mg 5-10 | | 19 4:12 | | | | | mg, oral, EVERY 3 HOURS | | PM PDT | | | | | NEEDED, Starting [facility] 09/04/19 at | | | | | | | 1449, Until Shania 09/04/19 at 1836, | | | | | | | moderate pain, unresponsive to | | | | | | | non-opioid medication | | | | | | + +-------+ +------+---+---+ +---+---+ | | | +---+---+ + +-------+ +-------+---+---+ | phytonadione (vitamin K1) | Given | 09/13/20 | 10 mg | | | | (VITAMIN K, MEPHYTON) tablet | | 19 3:14 | | | | | mg 10 mg, oral, ONCE, 1 dose, | | PM PDT | | | | | 09/13/19 at 1315 | | | | | | + +-------+ +-------+---+---+ +---+---+ | | | +---+---+ + +---------+ +---------+---+---+ | piperacillin-tazobactam (ZOSYN) | New Bag | 09/06/20 | 3.375 g | | | | IV (minibag+) 3.375 g 3.375 g, | | 19 7:48 | | | | | intravenous, EVERY 8 HOURS, First | | AM PDT | | | | | dose on Shania 09/04/19 at 2330, | | | | | | | Until Discontinued | | | | | | + +---------+ +---------+---+---+ +---------+ +---------+---+---+ | New Bag | 09/06/20 | 3.375 g | | | | | 19 12:38 | | | | | | AM PDT | | | | +---------+ +---------+---+---+ | New Bag | 09/05/20 | 3.375 g | | | | | 19 4:23 | | | | | | PM PDT | | | | +---------+ +---------+---+---+ +---+---+ | | | +---+---+ + +---------+ +-------+---+---+ | piperacillin-tazobactam (ZOSYN) | New Bag | 09/04/20 | 4.5 g | | | | IV (minibag+) 4.5 g 4.5 g, | | 19 5:24 | | | | | intravenous, ONCE, 1 dose, Shania | | PM PDT | | | | | 09/04/19 at 1645 | | | | | | + +---------+ +-------+---+---+ + +---+ | | | + [...] PM PDT | | | | | Sun09/05/19 at 1330, Until Wed | | | [...] | | | | dose on Shania 09/11/19 at 1300, | | AM PST | [...] | | | | | dose on 09/10/19 at 1030, | | AM PST | [...] +---------+ + +---+---+ | vancomycin (VANCOCIN) IV 1,000 | New Bag | 09/09/20 | 1,000 mg | | | | mg 1,000 mg, intravenous, EVERY | | 19 12:25 | | | | | 12 HOURS, First dose (after last | | PM PDT | | | | | modification) on 09/08/19 at | | | | | | | 0000, Until Discontinued | | | | | | + +---------+ + +---+---+ +---------+ + +---+---+ | New Bag | 09/08/20 | 1,000 mg | | | | | 19 11:52 | | | | | | PM PDT | | | | +---------+ + +---+---+ | New Bag | 09/08/20 | 1,000 mg | | | | | 19 2:19 | | | | | | PM PDT | | | | +---------+ + +---+---+ +---+---+ | | | +---+---+ + +---------+ [...] +---+---+ +---+---+ | | | +---+---+ + +---------+ [...] +---+---+ +---+---+ | | | +---+---+ + +---------+ + +---+---+ | vancomycin (VANCOCIN) IV 1,500 | New Bag | 09/09/20 | 1,500 mg | | | | mg 1,500 mg, intravenous, EVERY | | 19 8:04 | | | | | 24 HOURS, First dose (after last | | PM PDT | | | | | reorder) on Sun09/09/19 at 1999, | | | | | | | Until Discontinued | | | | | | + +---------+ + +---+---+ +---+---+ | | | +---+---+ + +---------+ + +---+---+ | vancomycin (VANCOCIN) IV 1,500 | New Bag | 09/12/20 | 1,500 mg | | | | mg 1,500 mg, intravenous, EVERY | | 19 8:42 | | | | | 24 HOURS, First dose on Sun | | PM PDT | | | | | 09/10/19 at 1999, Until | | | | | | | Discontinued | | | | | | + +---------+ + +---+---+ +---------+ + +---+---+ | New Bag | 09/11/20 | 1,500 mg | | | | | 19 7:40 | | | | | | PM PDT | | | | +---------+ + +---+---+ | New Bag | 09/10/20 | 1,500 mg | | | | | 19 9:29 | | | | | | PM [...]
--- OUTSIDE RECORDS SUMMARY | ~2020-06-01 | XMS | Encounter Summary ---
Demographics + + + | Address | [address] | | | [place] [address] | + + + | Home Phone | | + + + | Preferred Language | Unknown | + + + | Marital Status | Single | + + + | Orthodoxy Affiliation | NRP | + + + | Race | White | + + + | Ethnic Group | Not or | + + + Author + + + | Author | [facility] | + + + | Organization | [facility] | + + + | [...] Team Providers + +------+ + | Care Microbiology Coordinator Name | Role | Phone | + [...] | | | | [facility] | [place], [place] | | | | | [address], [address] floor | [phone] | | | | | [place], [place] | [phone] | | | | | [phone] | | | | | | [phone] | | | +--------+ + + + [...]
--- OUTSIDE RECORDS SUMMARY | ~2020-06-01 | XMS | Encounter Summary ---
Demographics + + + | Address | [address] | | | [place] [address] | + + + | Home Phone | | + + + | Preferred Language | Unknown | + + + | Marital Status | Single | + + + | Gnosticist Affiliation | NRP | + + + | Race | White | + + + | Ethnic Group | Not or | + + + Author + + + | Author | [facility] | + + + | Organization | [facility] | + + + | Address [...] Team Providers + +------+ + | Care Performing Artist Name | Role | Phone | + [...] Description | +--------+---------+ + + + | 09/06/ | Surgery | 6A Intra Op [id number] | Garth Stafford P, | LEFT LEG AND FOOT | | 2018 | | [address] | [address] | INCISION AND | | | | [address] [facility] | [address] | DRAINAGE, FASCIOTOMY | | | | Hospital Admitting | [place], [place] | CLOSURE | | | | Desk Located on the | [phone] | | | | | 9th floor | [phone] | | | | | [place], [place] | | | | | | [address] | | | +--------+---------+ + + + [...] Lockwood MD - 09/17/2019 12:07 PM PST [facility] Discharge Summary Discharging Provider: Johnathan Lockwood MD Discharging Attending Physician: To Henriquez MD PCP: Rio Huerta MD Admission Date: 09/03/2019 Discharge Date: 09/17/2019 Hospital Stay: 14 day(s) [facility] [place] [facility] [phone] [facility] FOLLOW UP NEEDS: 1) Infectious Disease, [facility], ~10/08/2019 2) Orthopedi cs, [facility] in the Dr. Nella Parry ~10/20 Principal [...] hindfoot. 5. Placement of an external tissue copy messenger, area other than breast. 6. Placement of [...] vancomycin trough levels - ID F/U in [place], ~10/08 timeframe - Wound check and suture removal by 09/26/2019; OK for SNF to remove sutures - Ortho F/U ~10/21 timeframe w/ Dr. Carmen in [facility] - Activity restrictions: LLE: NWB, elevated, [place] [...] BLED 4. Former discussion s with his police judge decided against anticoagulation; on 81 mg aspirin [...] twenty-four hours. To be admixed per infusion [facility] standard policy and/or procedure. Indications: bone/joint infection [...] follow/manage patient "I certify that post-hospital inpatient jail facility care is medically necessar y on a continuing basis for treatment of the same condition for which inpatient acute hospit al care was received." JOHNATHAN LOCKWOOD MD Discharge Destination - Selection Complete Service Provider Request Status Selected Services Address Phone Number Fax Number [facility] Selected [facility] [address], [place] [address] Home Care Medical No service has been [...] Why: For wound re-check Contact information [address] [place] [phone] RIO HUERTA MD. Go on 09/24/2019. Specialty: Family Medicine Why: Appt: Tuesday, September 24, 2019 @ 08:40am. Address: [address] [place] [address], [address], [place], [place] Contact information [facility] [address] [place] [address] Surya Coffman MD. Go on 09/30/2019. Why: Appt: Monday, September 30, 2019 @ 09:45am Contact information [address], [place] [phone] Contact information for after-discharge care Discharge Destination [facility] . Service: [facility] Contact information [address] [facility] [address] Discharge Physical Exam: Last 24 hour min/max [...] PGY - 3 | Internal Medicine | [id number] [facility] Associated attestation - To Henriquez MD - [...] Primary Surrogate Decision Maker Josué An son [phone] TO HENRIQUEZ MD [address] instructor trainer canine service Division of Hospital Medicine Department of Medicine [address] [place] [phone] documented in this encounter Discharge Instructions Discharge [...] follow/manage patient "I certify that post-hospital inpatient jail facility care is medically necessar y on [...] | | | | | with hardware ([facility]) | | | | | | + [...] (per patient w ++ 1st degree FH) Sand Polisher re: skin/foot care (a la DM) 10) Alcohol use disorder, mild, in sustained remission, abuse 11) Encounter for long-term (current) use of antibiotics SURROGATE DECISION MAKER Surrogate Decision Maker Primary Surrogate Decision Maker Josué An son [phone] TO HENRIQUEZ MD [address] instructor trainer canine service Division of Hospital Medicine Department of Medicine [address] [phone] Amber Wan MD - 1 11/16/2018 7:13 [...] care, follow up recs - follow up: [facility] ID faculty with preference to schedule with [...] BLED 4. Former discussion s with his police judge decided against anticoagulation; on 81 mg aspirin daily (used to be 325 but reduced to 81 2/ "GI problems"). - held asa in s/o surgery, has been restarted - continue digoxin - goal resting rate <110 # bilateral lower extremity swelling Unclear etiology. Was seeing police judge who is prescribing torsemide 10 mg daily [...] Dispo: patient ready to discharge tomorrow to [facility] in [place]. Code Status: Full Code Surrogate Decision Maker Primary Surrogate Decision Maker Josué An son [phone] This patient was staffed with Dr. To [...] there are not currnet signs of decompensation Sand Polisher on his 'near miss' and importance of good 'liver care' in future 9) Neuropathy, hereditary sensory (per patient w ++ 1st degree FH) Not noted in 'history' but with suggestion of pes cavus, and ++ family history it does r aise the qn of Isxfoaw-Lrkkb-Ivqnm Could have been contributor to osteo Sand Polisher re: skin/foot care (a la DM) 10) Alcohol use disorder, mild, in sustained remission, abuse 11) Encounter for long-term (current) use of antibiotics SURROGATE DECISION MAKER Surrogate Decision Maker Primary Surrogate Decision Maker Josué An son [phone] TO HENRIQUEZ MD [address] instructor trainer canine service Division of [facility] Medicine Department of Medicine [address] [place] [address] Amber Wan MD - 1 11/15/2018 6:26 [...] care, follow up recs - follow up: [facility] ID faculty with preference to schedule with [...] BLED 4. Former discussion s with his police judge decided against anticoagulation; on 81 mg aspirin daily (used to be 325 but reduced to 81 2/2 "GI problems"). - held asa in s/o surgery, has been restarted - continue digoxin - goal resting rate <110 # bilateral lower extremity swelling Unclear etiology. Was seeing police judge who is prescribing torsemide 10 mg daily [...] majority of his medicare SNF days, case manager specialist working to determine whethe r paying out of pocket is an option vs investigate other dispo options. Code Status: Full Code Surrogate Decision Maker Primary Surrogate Decision Maker Josué An son [phone] This patient was staffed with Dr. To [...] care, follow up recs - follow up: [facility] ID faculty with preference to schedule with [...] BLED 4. Former discussion s with his police judge decided against anticoagulation; on 81 mg aspirin daily (used to be 325 but reduced to 81 2/2 "GI problems"). - held asa in s/o surgery, has been restarted - continue digoxin - goal resting rate <110 # bilateral lower extremity swelling Unclear etiology. Was seeing police judge who is prescribing torsemide 10 mg daily [...] majority of his medicare SNF days, case manager specialist working to determine whethe r paying out of pocket is an option vs investigate other dispo options. Code Status: Full Code Surrogate Decision Maker Primary Surrogate Decision Maker Josué An son [phone] This patient was staffed with Dr. To [...] stenosis or insuff iciency: Aug 26, 2018: [facility]) 7) Essential hypertension 8) "Cirrhosis, Laennec's" (HCC) [...] it does r aise the qn of Nmihjup-Ldnui-Lzkmo Could have been contributor to osteo Sand Polisher re: skin/foot care (a la DM) 10) Alcohol use disorder, mild, in sustained remission, abuse 11) Encounter for long-term (current) use of antibiotics SURROGATE DECISION MAKER Surrogate Decision Maker Primary Surrogate Decision Maker Josué An son [phone] TO HENRIQUEZ MD [address] instructor trainer canine service Division of Hospital Medicine Department of Medicine [facility] [address] [phone] o zuluaga MD - 09/13 12:33 PM [...] stenosis or insuff iciency: Aug 26, 2018: [facility]) 7) Essential hypertension 8) "Cirrhosis, [...] it does r aise the qn of Svgnwal-Chiaz-Mqrrn Could have been contributor to osteo Sand Polisher re: skin/foot care (a la DM) 10) Alcohol use disorder, mild, in sustained remission, abuse 11) Encounter for long-term (current) use of antibiotics SURROGATE DECISION MAKER Surrogate Decision Maker Primary Surrogate Decision Maker Josué nA son [phone] TO HENRIQUEZ MD [address] instructor trainer canine service Division of Hospital Medicine Department of Medicine [address] [place] [address] ateJohnathan victor MD - 12/2018 11:07 AM [...] care, follow up recs - follow up: [facility] ID faculty with preference to schedule with [...] BLED 4. Former discussion s with his police judge decided against anticoagulation; on 81 mg aspirin daily (used to be 325 but reduced to 81 2/2 "GI problems"). - held asa in s/o surgery, has been restarted - continue digoxin - goal resting rate <110 # bilateral lower extremity swelling Unclear etiology. Was seeing police judge who is prescribing torsemide 10 mg daily [...] majority of his medicare SNF days, case manager specialist working to determine whethe r paying out of pocket is an option vs investigate other dispo options. Code Status: Full Code Surrogate Decision Maker Primary Surrogate Decision Maker Josué An son [phone] This patient was staffed with Dr. To Henriquez, who agrees with the assessment and plan unle ss otherwise stated. Johnathan Lockwood MD PGY - 3 | Internal Medicine | [id number] [facility] To Mendez MD - 11/2018 8:01 AM [...] stenosis or insuff iciency: Aug 26, 2018: [facility]) 7) Essential hypertension 8) "Cirrhosis, [...] it does r aise the qn of Fmcizoc-Dxxit-Rjgwp Could have been contributor to osteo Sand Polisher re: skin/foot care (a la DM) 10) Alcohol use disorder, mild, in sustained remission, abuse 11) Encounter for long-term (current) use of antibiotics SURROGATE DECISION MAKER Surrogate Decision Maker Primary Surrogate Decision Maker Josué An son [phone] I spent ~40 minutes in the care of this patient. Greater than 50% of the time was spent co unseling and coordination of care, including visit x 3; extensive chart review (on ramos) TO HENRIQUEZ MD [address] instructor trainer canine service Division of Hospital Medicine Department of Medicine [facility] [address] [place] [address] auri Strickland MD - 09/12/2019 7:07 AM [...] care, follow up recs - follow up: [facility] ID faculty with preference to schedule with [...] BLED 4. Former discussion s with his police judge decided against anticoagulation; on 81 mg aspirin daily (used to be 325 but reduced to 81 2/2 "GI problems"). - held asa in s/o surgery, has been restarted - continue digoxin - goal resting rate <110 # bilateral lower extremity swelling Unclear etiology. Was seeing police judge who is prescribing torsemide 10 mg daily [...] 90/100 of his medicare SNF days, case manager specialist working to determine whether paying out of pocket is an option vs investigate other dispo options. Code Status: Full Code Surrogate Decision Maker Primary Surrogate Decision Maker Josué An son [phone] This patient was staffed with Dr. To Henriquez, who agrees with the assessment and plan unle ss otherwise stated. Gauri Stirckland MD Internal Medicine [id number] signed by To Henriquez MD at 09/12/2019 [...] care, follow up recs - follow up: [facility] ID faculty with preference to schedule with [...] BLED 4. Former discussion s with his police judge decided against anticoagulation; on 81 mg aspirin daily (used to be 325 but reduced to 81 2/2 "GI problems"). - held asa in s/o surgery, has been restarted - continue digoxin - goal resting rate <110 # bilateral lower extremity swelling Unclear etiology. Was seeing police judge who is prescribing torsemide 10 mg daily [...] 90/100 of his medicare SNF days, case manager specialist working to determine whether paying out of pocket is an option vs investigate other dispo options. Code Status: Full Code Surrogate Decision Maker Primary Surrogate Decision Maker Josué An son [phone] This patient was staffed with Dr. Huerta, [...] to contin ue conversation with his case manager specialist about discharge planning. Physical Examination: Last 24 [...] care, follow up recs - follow up: [facility] ID faculty with preference to schedule with [...] BLED 4. Former discussion s with his police judge decided against anticoagulation; on 81 mg aspirin daily (used to be 325 but reduced to 81 2/2 "GI problems"). - held asa in s/o surgery, has been restarted - continue digoxin - goal resting rate <110 # bilateral lower extremity swelling Unclear etiology. Was seeing police judge who is prescribing torsemide 10 mg daily [...] 90/100 of his medicare SNF days, case manager specialist working to determine whether paying out of pocket is an option vs investigate other dispo options. Code Status: Full Code Surrogate Decision Maker Primary Surrogate Decision Maker Josué An son [phone] This patient was staffed with Dr. Huerta, who agrees with the assessment and plan unless otherwise stated. Gauri Strickland MD Internal Medicine [id number] signed by Tiffanie Huerta MD at 09/10/2019 [...] hours (or 3 results) Recent Labs 09/08/1945109/10/19 06 WBC 5.51 5.90 HB 8.8* 8.9* HCT 29.3* 29.2* PLT 306 388 Chemistries: Last 72 Hours (or 3 results): Recent Labs 10/28/19 0452 10/30/19 0605 NA 138 141 K 3.9 4.0 [...] has not been an issue. Enjoys working [facility] physical therapy. Denies dyspnea, nausea, abdominal pain, constipation. Fine with getting PICC line and understands need for residential IV antibiotics. Physical Examination: Last 24 hour [...] care, follow up recs - follow up: [facility] ID faculty with preference to schedule with [...] BLED 4. Former discussion s with his police judge decided against anticoagulation; on 81 mg aspirin daily (used to be 325 but reduced to 81 2/2 "GI problems"). - held asa in s/o surgery, has been restarted - continue digoxin - goal resting rate <110 # bilateral lower extremity swelling Unclear etiology. Was seeing police judge who is prescribing torsemide 10 mg daily [...] Primary Surrogate Decision Maker Josué An son [phone] This patient was staffed with Dr. Huerta, who agrees with the assessment and plan unless otherwise stated. Gauri Strickland MD Internal Medicine [id number] signed by Tiffanie Huerta MD at 09/10/2019 [...] hindfoot. 5. Placement of an external tissue copy messenger, area other than breast. 6. Placement of [...] vancomycin, until further notice, ID consult for laundry aid plan 5. Special Concerns: case managment for discharge planning, likely discharge to SNF in [place] Wound [facility] consulted 6. Dressings/Drains: DRESSING CARE [...] ok to discharge from ortho perspective o mie OPAT plan and dispo arrangements have been [...] 2 seconds Aidan Antonio MD Orthopedic Surgery [id number] 11:15 AM Cory Shaikh MD - 09/09/2019 [...] the plan as listed. Cory Carmen MD [facility] [address] [place] [address] Cory Carmen Gauri Walsh MD - 09/08/2019 7:27 AM PDT General Internal Medicine 3 Progress Note 24 Hour Events: Pharmacy completed med rec via SNF MAR records per pharm: "Torsemide, potassium chloride, A SA, MVI, vitamin B12, and thiamine were added to PLASTIC [employer]WER medication list. Of note, patient has n [...] BLED 4. Former discussion s with his police judge decided against anticoagulation; on 81 mg aspirin daily (used to be 325 but reduced to 81 2/2 "GI problems"). - held asa in s/o surgery, has been restarted - continue digoxin - goal resting rate <110 # bilateral lower extremity swelling Unclear etiology. Was seeing police judge who is prescribing torsemide 10 mg daily [...] Primary Surrogate Decision Maker Josué An son [phone] This patient was staffed with Dr. Huerta, who agrees with the assessment and plan unless otherwise stated. Gauri Strickland MD Internal Medicine [id number] signed by Tiffanie Huerta MD at 09/08/2019 [...] present. - he has been comfortable at [facility] assisted living with aggressive PT in the past [facility] is close to [place], his home. Deepthi Collazo AGACNP - 09/08/2019 [...] hindfoot. 5. Placement of an external tissue copy messenger, area other than breast. 6. Placement of [...] vancomycin, until further notice, ID consult for laundry aid plan 5. Special Concerns: case managment for discharge planning, likely discharge to SNF in [place] Wound [facility] consulted 6. Dressings/Drains: DRESSING CARE [...] capillary refill < 2 seconds Deepthi Collazo, [facility] Orthopaedic Trauma Surgery Pager [phone] Associated attestation - Cory Carmen MD - 09/08/2019 5:06 PM PDTORTHO STAFF NOTE I have personally seen, examined, and performed and independent history and physical exam o dominik An today. I have discussed the findings with the orthopaedic trauma team resid ents and agree with the full plan as detailed in the note above. Complex right ankle infected hardware. Working on wound care for the heel wound still Setting up antibiotics for afterdischarge. Appreciate infectious disease input. I will be following this patient residential, rather than Dr stafford or [facility]. I discussed the diagnosis, imaging studies, treatment plan and prognosis with the patient and resident. I have reviewed and the above note and agree with the plan. Please do not he sitate to call me for questions. Cory Carmen MD [facility] [address] [facility] [address] [facility] [address] [place] [address] Arnold Taylor MD - 09/07/2019 6:22 PM PDTFormatting of this note might be differ ent from the original. Orthopaedic Surgery Progress Note Patient: /Age: MRN: CSN: Date: Admission Date: Hospital Day: Attending Physician: Monty An 1950 69 y.o. [id number] 09/07/2019 09/03/2019 4 Garth Stafford MD Procedure(s) [...] SpO2 98%, BMI 27.94 kg/(m^2). Facility age [facility] for growth percentiles is 18 years. Exam: General: Well appearing, NAD CV/Resp: Breathing comfortably, Neurologic: Awake and alert MSK: LLE Dressings c/d/i Insensate about the lower leg/foot Wiggles toes WWP distally ARNOLD TAYLOR MD Pager: [phone] 09/07/2019 Associated attestation - Garth Stafford MD [...] appetite good, concerns are c entered around laundry aid places, specifically timeline of rehab and wound healing, as well a s what recovery will look like if he were to get a BKA. Reassured that no decisions need to be made now, can involve case management Sunday to look at SNFs. He has been to [facility] in [place] previously. Physical Examination: Last 24 hour min/max [...] BLED 4. Former discussion s with his police judge decided against anticoagulation; on 81 mg aspirin daily (used to be 325 but reduced to 81 2/2 "GI problems"). - held asa in s/o surgery, restart - continue digoxin - goal resting rate <110 # bilateral lower extremity swelling Unclear etiology. Was seeing police judge who is prescribing torsemide 10 mg daily [...] Primary Surrogate Decision Maker Josué An son [phone] This patient was staffed with Dr. Huerta, who agrees with the assessment and plan. Gauri Strickland MD Internal Medicine [id number] signed by Tiffanie Huerta MD at 09/07/2019 [...] in team note. - [facility] in [place] would be a reasonable SNF for him [...] seco nds Aidan Antonio MD Orthopedic Surgery [id number] 7:37 AM 09/06/2019 Gauri Walsh MD - [...] DM); HAS BLED 4. Former discussions with [facility] police judge decided against anticoagulation; on 81 mg aspirin daily (used to be 325 but r educed to 81 2/2 "GI problems"). - hold asa in s/o surgery - continue digoxin - goal resting rate <110 # bilateral lower extremity swelling Unclear etiology. Was seeing police judge who is prescribing torsemide 10 mg daily [...] Primary Surrogate Decision Maker Josué An son [phone] This patient was staffed with Dr. Huerta, who agrees with the assessment and plan. Gauri Strickland MD Internal Medicine [id number] signed by Tiffanie Huerta MD at 09/06/2019 [...] Orthopaedic Attending: Monty An 1950 69 y.o. [id number] 09/05/2019 09/03/2019 2 Olivier Ansari MD Diagnosis(es): [...] to make a follow up appointment in [facility] 2 weeks with ORTHO TRAUMA & FRACTURE, [...] es pink and warm. Noel Baptiste MD [facility] Department of Orthopaedics & Rehabilitation [address] [place] [address] Mail Code: [id number] [facility] [address] Associated attestation - Olivier Ansari MD - [...] DM); HAS BLED 4. Former discussions with [facility] police judge decided against anticoagulation; on 81 mg aspirin daily (used to be 325 but r educed to 81 2/ "GI problems"). - hold asa in s/o surgery - continue digoxin - goal resting rate <110 # bilateral lower extremity swelling Unclear etiology. Was seeing police judge who is prescribing torsemide 10 mg daily [...] Primary Surrogate Decision Maker Josué An son [phone] This patient was staffed with Dr. Huerta, who agrees with the assessment and plan. Gauri Strickland MD Internal Medicine [id number] signed by Tiffanie Huerta MD at 09/06/2019 [...] 72 Hours (or 3 results): Recent Labs 09/03/19192309/04/19521 09/04/19 1401 NA 137 138 -- K [...] BLED 4 . Former discussions with his police judge decided against anticoagulation; on 81 mg aspirin daily (used to be 325 but reduced to 81 2/2 "GI problems"). - hold asa in s/o surgery - continue digoxin - goal resting rate <110 # bilateral lower extremity swelling Unclear etiology. Was seeing police judge who is prescribing torsemide 10 mg daily [...] Primary Surrogate Decision Maker Josué An son [phone] This patient was staffed with Dr. Huerta, [...] hours (or 3 results) Recent Labs 09/03/19191009/04/19 05 WBC 8.07 6.44 HB 10.2* 10.7* HCT 32.8* 33.8* PLT 363 338 NEUTROPERC 74.1* -- LYMPHPERC 12.1* -- MONOPERC 10.0* -- BASOPERC 0.4 -- EOSPERC 3.0 -- Chemistries: Last 72 Hours (or 3 results): Recent Labs 09/03/19192309/04/19 0522 09/04/19 1401 NA 137 138 -- [...] care at facility where he lives in [facility], was discharged to home I called and spoke with night RN at [facility] He discharged home yesterday from facility They had noted exposed hardware last week, cultured wound which has not grown and started o n PO levofloxacin 500mg daily and augmentin on 09/02 He was seen by Dr Castellano at [facility] who requested transfer to [facility] for orthopedic eval From last cardiology note [...] within 24 hours. Please refer to excellent graduate internship H&P for full problem based plan. ILIR SPIVEY MD Internal Medicine, PGY-3 Pager: [phone] documented in this encou nter Plan of [...] | | 09/03/2019 until | | | [facility] | e | | discontinued, 1 [...] | + +--------+ + + + | VANCOMYCIN TROUGH | Routin | 09/07/2019 | | [...] | + + + + + | [facility] | [address] | [place] [address] | | | SERVICES, CORE | DWIGHT [...] Hematopathology | | | | | | FellowMarc Toyin CHANDLER, | | | | | | PhD - | | | | | | HematopathologistPatholo | | | | | | gy, [facility] | | | | | | [facility] | | | | | | electronic [...] | + + + + + | [facility] | [address] | [place] [address] | | | PATHOLOGY | [address] [...] | + + + + + | [facility] | [address] | [place] [address] | | | SERVICES, CORE | PARK [...] | + + + + + | [facility] | [address] | [place] [address] | | | SERVICES, FERMÍN | DWIGHT [...] | | | LABORATORY | | | [place] | | | SERVICES, | | | [...] MDRD equation recommended by the National | [facility] | | Kidney Disease Education Program. Estimated [...] | + + + + + | [facility] | [address] | [place] [address] | | | SERVICES, CORE | PARK [...] + + | [facility] | [address] | [place] [address] | | | SERVICES, CORE | PARK [...] [facility] | [address] | [place] [address] | | | SERVICES, CORE | PARK [...] | + + + + + | [facility] | [address] | [place] [address] | | | VJ, FERMÍN | DWIGHT [...] [facility] | [address] | [place] [address] | | | SERVICES, CORE | PARK [...] | + + + + + | [facility] | [address] | [place] [address] | | | SERVICES, FERMÍN | PARK [...] | | | LABORATORY | | | [place] | | | SERVICES, | | | [...] | + + + + + | [facility] | [address] | [place] [address] | | | SERVICES, CORE | PARK [...] [facility] | [address] | [place] [address] | | | SERVICES, CORE | PARK [...] | | | LABORATORY | | | [place] | | | SERVICES, | | | | | | CORE | | + +---------+ + + + | EGFR NON | >60 | >60 mL/min | [facility] | | | -[facility] | | | LABORATORY | | | [...] MDRD equation recommended by the National | [facility] | | Kidney Disease Education Program. Estimated [...] | + + + + + | [facility] | [address] | [place] [address] | | | SERVICES, CORE | [address] | | | + + + + + X-RAY PORTABLE CHEST PICC LINE CHECK (09/09/2019 7:29 PM PDT) + + | Specimen | + + | | + + + + + | Narrative | Performed At | + + + | EXAM: IN CHEST PICC LINE CHECK HISTORY: Verify Catheter [...] Interface - 09/09/2019 8:46 PM PDT EXAM: IN CHEST | | PICC LINE CHECK HISTORY: [...] PM Preliminary: Radha Santoyo MD Dictation initiated: Yonatan Villarreal | 09/09/2019 8:43 PM | |Left PICC [...] At | + + + | EXAM: IN CHEST 1 VIEW HISTORY: PICC placement COMPARISON: [...] Interface - 09/09/2019 4:46 PM PDT EXAM: IN CHEST 1 | | VIEW HISTORY: PICC [...] Diagnosis: Cellulitis LE Procedure location: Unit: Room: [facility] | | | Providers: Attending name: Attending physically present: No PICC | | | Nurse name: AZAR Leon VAT Assisted by Marty | | | Chantel MURO Pre-Procedure Consent: written consent | | | obtained Consent given by: Patient Patient identity confirmed per | | | protocol: Yes Team Pause: Immediatly prior to the procedure a pause | | | per protocol was called. 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 Catheter lot number: | | | [id number] with a length of 55 cm was [...] [facility] | [address] | [place] [address] | | | SERVICES, CORE | PARK [...] [facility] | [address] | [place] [address] | | | SERVICES, CORE | PARK [...] | + + + + + | [facility] | [address] | [place] [address] | | | SERVICES, CORE | DWIGHT [...] [facility] | [address] | [place] [address] | | | SERVICES, CORE | DWIGHT [...] [facility] | [address] | [place] [address] | | | SERVICES, CORE | PARK [...] | | | LABORATORY | | | [place] | | | SERVICES, | | | [...] | + + + + + | [facility] | [address] | [place] [address] | | | SERVICES, FREMÍN | [address] | | | + [...] [facility] | [address] | [place] [address] | | | SERVICES, CORE | DWIGHT [...] [facility] | [address] | [place], [place] | | | ALEX M[facility] OF STAR | [facility] | [address] | | | TESTS | | | [...] | + + + + + | [facility] | [address] | [place] [address] | | | SERVICES, CORE | DWIGHT [...] | | | LABORATORY | | | [place] | | | SERVICES, | | | [...] MDRD equation recommended by the National | [facility] | | Kidney Disease Education Program. Estimated [...] | + + + + + | [facility] | [address] | [place] [address] | | | SERVICES, CORE | DWIGHT [...] [facility] | [address] | [place] [address] | | | SERVICES, | [address] [...] | + + + + + | [facility] | [address] | [place] [address] | | | SERVICES, | [address] | | | | TRANSFUSION MEDICINE [...] [facility] | | | | | VAS US | | | | + +---------+ + + [facility] VENOUS DUPLEX LOWER EXTREMITY LT (09/05/2019 [...] + + | [facility] | [address] | [place] [address] | | | SERVICES, CORE | PARK [...] | + + + + + | [facility] | [address] | [place] [address] | | | SERVICES, CORE | DWIGHT [...] + + + + + + | [facility]GELINE[facility]JENNIF[facility] | 507 | ms | [facility] [...] DEPT OF | [address] | [place], [place] | | | CARDIOLOGY | [address] | [phone] | | + + + + + [...] [facility] | [address] | [place], [place] | | | LUISA POINT OF CARE | [address] | [phone] | | | TESTS | | | [...] B for complete identification and susceptibilities | [place] | | Enterococcus faecalis Unable to continue [...] + | [facility] - | [address] | [place] [address] | | | [facility] | | | | + + + [...] + | [facility] | [address] | [place] [address] | | | [place] | | | [...] Culture Report: Methicillin Resistant Staphylococcus aureus | [facility] - | | Presumptive identification Refer to culture collected [facility]04[facility]2019 at | [facility] | | [facility], site [address] for complete identification and susceptibilities | [place] | | Enterococcus faecalis Refer to culture [...] | + + + + + | [facility] | [address] | [place] [address] | | | [place] | | | | + + + [...] Corynebacterium striatum No Propionibacterium isolated Gram | [facility] | | Stain: No squamous epithelial cells Rare polymorphonuclear cells | [place] | | No organisms seen | | [...] | + + + + + | [email or web address] - | [address] | [place] [address] | | | [place] | | | [...] + | [facility] - | [address] | [place] [address] | | | [facility] | | | | + + + [...] [facility] | [address] | [place] [address] | | | SERVICES, CORE | PARK [...] [facility] | [address] | [place] [address] | | | SERVICES, CORE | PARK [...] | | | LABORATORY | | | [place] | | | SERVICES, | | | [...] | + + + + + | [facility] | [address] | [place] [address] | | | SERVICES, CORE | DWIGHT [...] [facility] | [address] | [place] [address] | | | SERVICES, CORE | PARK [...] | + + + + + | [facility] | [address] | [place] [address] | | | FERMÍN ZABALA | DWIGHT [...] | [facility] | | considered for monitoring residential glycemic control in patients with: | LABORATORY [...] [facility] | [address] | [place] [address] | | | SERVICES, SPECIAL | PARK [...] | + + + + + | [facility] - | [address] | [place] [address] | | | [place] | | | | + + + [...] + + + + + | [facility] | [address] | [place] [address] | | | SERVICES, CORE | PARK [...] | + + + + + | [facility] | [address] | [place] [address] | | | FERMÍN ZABALA | DWIGHT [...] | + + + + + | [facility] | [address] | [place] [address] | | | FERMÍN ZABALA | DWIGHT [...] | + + + + + | [facility] | [address] | [place] [address] | | | SERVICES, CORE | [address] | | | + + + + + BG-LAC,POC ISTAT (09/03/2019 7:25 PM PDT) + +-------+ + + + | Component | Value | Ref Range | Performed | Pathologist | | | | | At | Signature | + +-------+ + + + | TOTAL CO2 | 28 | 23 - 29 mmol/L | [facility] - | | | JACINTO, POC | [...] [facility] | | | | | | LUISA, POINT | | | | | | [...] [facility] | [address] | [place], [place] | | | ALEX MORAN OF CARE | [address] | [address] | | | TESTS | | | [...] [facility] | [address] | [place] [address] | | | SERVICES, CORE | [address] | | | + + + + + ETHANOL (ALCOHOL), BLOOD (09/03/2019 7:24 PM PDT) + +-------+ + + + | Component | Value | Ref Range | Performed | Pathologist | | | | | At | Signature | + +-------+ + + + | ETHANOL | <10 | <10 mg/dL | [facility] | | | (ALCOHOL) | | | [...] [facility] | [address] | [place] [address] | | | SERVICES, FERMÍN | [address] | | | + + + + + CULTURE, BLOOD BACTI & YEAST [facility] (09/03/2019 7:24 PM PDT) + + + [...] | + + + + + | [facility] | [address] | [place] [address] | | | SERVICES, CORE | DWIGHT [...] [facility] | [address] | [place] [address] | | | SERVICES, CORE | PARK [...] | | | LABORATORY | | | [place] | | | SERVICES, | | | [...] MDRD equation recommended by the National | [facility] | | Kidney Disease Education Program. Estimated [...] | + + + + + | [facility] | [address] | [place] [address] | | | SERVICES, [facility] | [address] | | | + [...] [facility] | [address] | [place] [address] | | | SERVICES, | [address] [...] | + + + + + | [facility] | [address] | [place] [address] | | | SERVICES, CORE | DWIGHT [...] [facility] | [address] | [place] [address] | | | SERVICES, CORE | PARK [...] | + + + + + | [facility] | [address] | [place] [address] | | | SERVICES, FERMÍN | DWIGHT [...] | | | | | NEEDED, Starting [facility] 09/04/19 at | | 19 4:05 | [...] | | | | First dose on Shania 09/04/19 at | | AM PST | [...] PDT | | | | | Starting [facility] 09/04/19 at 1845, | | | | | | | Until 09/17/19 at 1808, | | | | [...] | | | | | dose on [facility] 09/04/19 at 0900, | | AM PST [...] DAILY, First dose on Sun | | 19 9:20 | | | [...]
--- OUTSIDE RECORDS SUMMARY | ~2020-06-01 | XMS | Encounter Summary ---
Demographics + + + | Address | [address] | | | [place] [address] | + + + | Home Phone | | + + + | Preferred Language | Unknown | + + + | Marital Status | Single | + + + | Buddhist Affiliation | NRP | + + + [...] Team Providers + +------+ + | Care Joint Cutter Machine Name | Role | Phone | + [...]
--- OUTSIDE RECORDS SUMMARY | ~2020-06-01 | XMS | Encounter Summary ---
Demographics + + + | Address | [address] | | | [place] [address] | + + + | Home Phone | | + + + | Preferred Language | Unknown | + + + | Marital Status | Single | + + + | Yarsanism Affiliation | NRP | + + + [...] Team Providers + +------+ + | Care Training Generalist Name | Role | Phone | + +------+ + | Dustin Perez MD | PCP | | + +------+ + Reason for Visit + + + | Reason | Comments | + + + | Lab findings, | Creatinine | | teaching, guidance, | | | and counseling | | + + + | Infectious disease | | + + + Encounter Details +--------+ + + + + | Date | Type | Department | Care Team | Description | +--------+ + + + + | 10/10/ | Telephone | Infectious | Chyna Aponte, | Lab findings, | | 2019 | | Diseases at [facility] | RN [address] | teaching, guidance, | | | | [address] | [address] | and counseling | | | | [facility] | [place], [place] | (Creatinine); | | | | [address], [address] floor | [address] | Infectious disease | | | | [place], [place] | [phone] | | | | | [address] | | | | | | [phone] | | | +--------+ + + + [...]
--- OUTSIDE RECORDS SUMMARY | ~2020-06-01 | XMS | Encounter Summary ---
Demographics + + + | Address | [address] | | | [place] [address] | + + + | Home Phone | | + + + | Preferred Language | Unknown | + + + | Marital Status | Single | + + + | Catholic Affiliation | Unknown | + + + | Race | Unknown | + + + | Ethnic Group | Unknown | + + + Author + + + | Author | [facility] | | | and [place] | + + + | Organization | [facility] | | | [...] Team Providers + +------+ + | Care Overcoil Stepper Name | Role | Phone | + [...] + + | 10/29/ | Office | [facility] | Scotty Donovan DO | Subacute | | 2019 | Visit | INFECTIOUS DISEASE | [address] | 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 The patient [...] had apparently some cultures obtained at his [facility] facility which were reportedly negative. [...] 06, 2019 for wound closure. The patient's nm crobiology showed Staphylococcus aureus (MRSA), Corynebacterium striatum, [...]
--- OUTSIDE RECORDS SUMMARY | ~2020-06-01 | XMS | Encounter Summary ---
Demographics + + + | Address | [address] | | | [place] [address] | + + + | Home Phone | | + + + | Preferred Language | Unknown | + + + | Marital Status | Single | + + + | Alevism Affiliation | Unknown | + + + | Race | Unknown | + + + | Ethnic Group | Unknown | + + + Author + + + | Author | [facility] | | | and [place] | + + + | Organization | [facility] | | | [...] Team Providers + +------+ + | Care Director Of Emergency Nursing Name | Role | Phone | + [...] + + | 09/01/ | Office | [facility] | Heather Thomas | [place] | | 2019 | Visit | CARDIOLOGY [place] | [address] | persistent atrial | | | | [address] | [place]N MENDEZ F | fibrillation (HCC) | | | | [address] | [place] [address] | (Primary Dx); | | | | [place], [place] | [phone] | Encounter for | | | | [address] | | monitoring diuretic | | | | [phone] | | therapy; Essential | | | [...] you non-fasting labs to be done at [facility] in 2 weeks I made these changes [...] hyperlipidemia, and dependent pe yaritza edema. His [id number] VASC score is 3( age, HTN, DM) giving him an annual stroke risk of 3.2% and [facility] HAS BLED score is 4( HTN, [...] noted that h is previous hospitalization at [facility] was from viral gastroenteritis, cirrhosis, mi ld [...] to medications He was last hospitalized at [facility] in May 2019 for weakness and hyponatremia, a nd after that he was moved to [facility] where he has been for approximatel y 3 months for physical and occupational therapy, but reports he will be returning to his [facility] tomorrow. Notes from his hospitalization document [...] deconditioned, [facility]. He [...] feel improved since he has been at [place], an d remains abstinent from alcohol. His [...] have improved since he has been at [facility]. Denies unexplained weight loss. Appetite is [...] or illicit drug use. . 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 Rate 98 bpm, QRS 80 ms, QTC 380 ms, trac ing personally reviewed by mi LABS Labs: 05/28/2019:[facility]: Phosphorus 2.9. [...] eris, vital sign and medication record from [facility]. Allergies, current medications.labs Family history, past medical history, past social history, past surgical history. Problem list. YAMILA Bhagat [facility] Cardiology 09/01/2019 docum ented in [...]
--- OUTSIDE RECORDS SUMMARY | ~2020-06-01 | XMS | Encounter Summary ---
Demographics + + + | Address | [address] | | | [place] [address] | + + + | Home Phone | | + + + | Preferred Language | Unknown | + + + | Marital Status | Single | + + + | Congregational Affiliation | NRP | + + + | Race | White | + + + | Ethnic Group | Not or | + + + Author + + + | Author | [facility] | + + + | Organization | [facility] | + + + | [...] Team Providers + +------+ + | Care Building Maintenance Superintendent Name | Role | Phone | + [...] INCISION AND | | | | Rd [facility] | [address] | DRAINAGE, FASCIOTOMY | | | | Hospital Admitting | [place], [place] | CLOSURE | | | | Desk Located on the | [address] | | | | | 9th floor | [phone] | | | | | [place], [place] | | | | | | [address] | | | +--------+---------+ + + + [...] Lockwood MD - 09/17/2019 12:07 PM PST [facility] Discharge Summary Discharging Provider: Johnathan Lockwood MD Discharging Attending Physician: To Henriquez MD PCP: Rio Huerta MD Admission Date: 09/03/2019 Discharge Date: 09/17/2019 Hospital Stay: 14 day(s) [facility] [place] . [phone] [facility] FOLLOW UP NEEDS: 1) Infectious Disease, [facility], ~10/08/2019 2) Orthopedi cs, [facility] in the Dr. Nella Parry ~10/20 Principal [...] hindfoot. 5. Placement of an external tissue insole beveler, area other than breast. 6. Placement of [...] vancomycin trough levels - ID F/U in [place], ~10/08 timeframe - Wound check and suture removal by 09/26/2019; OK for SNF to remove sutures - Ortho F/U ~10/21 timeframe w/ Dr. Carmen in [facility] - Activity restrictions: LLE: NWB, elevated, [place] [...] BLED 4. Former discussion s with his subject scientific research decided against anticoagulation; on 81 mg aspirin [...] twenty-four hours. To be admixed per infusion [facility] standard policy and/or procedure. Indications: bone/joint infection [...] follow/manage patient "I certify that post-hospital inpatient usp facility care is medically necessar y on a continuing basis for treatment of the same condition for which inpatient acute hospit al care was received." JOHNATHAN LOCKWOOD MD Discharge Destination - Selection Complete Service Provider Request Status Selected Services Address Phone Number Fax Number [facility] Selected Penitentiary [address], [place] [address] Home Care Medical No service has been [...] re-check Contact information [address] [place] [phone] RIO HUERTA MD. Go on 09/24/2019. Specialty: Family Medicine Why: Appt: Tuesday, September 24, 2019 @ 08:40am. Address: [address] [place] [address], [address], [place], [place] Contact information [facility] [address] [place] [address] Surya Coffman MD. Go on 09/30/2019. Why: Appt: Monday, September 30, 2019 @ 09:45am Contact information [address], [place] [phone] Contact information for after-discharge care Discharge Destination [facility] . Service: Penitentiary Contact information [address] [facility] [address] Discharge Physical Exam: Last 24 hour min/max [...] PGY - 3 | Internal Medicine | [id number] [facility] [employer] Associated attestation - To Henriquez MD - [...] Primary Surrogate Decision Maker Josué An son [phone] TO HENRIQUEZ MD [address] medical receptionist Division of Hospital Medicine Department of Medicine [address] [place] [phone] documented in this encounter Discharge Instructions Discharge [...] follow/manage patient "I certify that post-hospital inpatient usp facility care is medically necessar y on [...] | | | | | with hardware ([facility]) | | | | | | + [...] (per patient w ++ 1st degree FH) Prison Librarian re: skin/foot care (a la DM) 10) Alcohol use disorder, mild, in sustained remission, abuse 11) Encounter for long-term (current) use of antibiotics SURROGATE DECISION MAKER Surrogate Decision Maker Primary Surrogate Decision Maker Josué An son [phone] TO HENRIQUEZ MD [address] medical receptionist Division of Hospital Medicine Department of Medicine [address] [address] Amber Wan MD - 1 11/16/2018 7:13 [...] care, follow up recs - follow up: [facility] ID faculty with preference to [...] BLED 4. Former discussion s with his subject scientific research decided against anticoagulation; on 81 mg aspirin daily (used to be 325 but reduced to 81 2/ "GI problems"). - held asa in s/o surgery, has been restarted - continue digoxin - goal resting rate <110 # bilateral lower extremity swelling Unclear etiology. Was seeing subject scientific research who is prescribing torsemide 10 mg daily [...] Dispo: patient ready to discharge tomorrow to [facility] in [place]. Code Status: Full Code Surrogate Decision Maker Primary Surrogate Decision Maker Josué An son [phone] This patient was staffed with Dr. To [...] there are not currnet signs of decompensation Prison Librarian on his 'near miss' and importance of good 'liver care' in future 9) Neuropathy, hereditary sensory (per patient w ++ 1st degree FH) Not noted in 'history' but with suggestion of pes cavus, and ++ family history it does r aise the qn of Ktackyv-Nlszx-Zmjek Could have been contributor to osteo Prison Librarian re: skin/foot care (a la DM) 10) Alcohol use disorder, mild, in sustained remission, abuse 11) Encounter for long-term (current) use of antibiotics SURROGATE DECISION MAKER Surrogate Decision Maker Primary Surrogate Decision Maker Josué nA son [phone] TO HENRIQUEZ MD [address] medical receptionist Division of [facility] Medicine Department of Medicine [address] [place] [address] Amber Wan MD - 1 11/15/2018 6:26 [...] care, follow up recs - follow up: [facility] ID faculty with preference to [...] BLED 4. Former discussion s with his subject scientific research decided against anticoagulation; on 81 mg aspirin daily (used to be 325 but reduced to 81 2/2 "GI problems"). - held asa in s/o surgery, has been restarted - continue digoxin - goal resting rate <110 # bilateral lower extremity swelling Unclear etiology. Was seeing subject scientific research who is prescribing torsemide 10 mg daily [...] used majority of his medicare SNF days, gearcase assembler working to determine whethe r paying out of pocket is an option vs investigate other dispo options. Code Status: Full Code Surrogate Decision Maker Primary Surrogate Decision Maker Josué An son [phone] This patient was staffed with Dr. To [...] care, follow up recs - follow up: [facility] ID faculty with preference to [...] BLED 4. Former discussion s with his subject scientific research decided against anticoagulation; on 81 mg aspirin daily (used to be 325 but reduced to 81 2/2 "GI problems"). - held asa in s/o surgery, has been restarted - continue digoxin - goal resting rate <110 # bilateral lower extremity swelling Unclear etiology. Was seeing subject scientific research who is prescribing torsemide 10 mg daily [...] used majority of his medicare SNF days, gearcase assembler working to determine whethe r paying out of pocket is an option vs investigate other dispo options. Code Status: Full Code Surrogate Decision Maker Primary Surrogate Decision Maker Josué An son [phone] This patient was staffed with Dr. To [...] stenosis or insuff iciency: Aug 26, 2018: [facility]) 7) Essential hypertension 8) "Cirrhosis, Laennec's" (HCC) [...] it does r aise the qn of Merawgv-Jsasa-Hmntv Could have been contributor to osteo Prison Librarian re: skin/foot care (a la DM) 10) Alcohol use disorder, mild, in sustained remission, abuse 11) Encounter for long-term (current) use of antibiotics SURROGATE DECISION MAKER Surrogate Decision Maker Primary Surrogate Decision Maker Josué An son [phone] TO HENRIQUEZ MD [address] medical receptionist Division of Hospital Medicine Department of Medicine [facility] & [address] [address] o zuluaga MD - 09/13 12:33 PM [...] stenosis or insuff iciency: Aug 26, 2018: [facility]) 7) Essential hypertension 8) "Cirrhosis, Laennec's" (HCC) [...] it does r aise the qn of Ookipxs-Syvxx-Yzjjc Could have been contributor to osteo Prison Librarian re: skin/foot care (a la DM) 10) Alcohol use disorder, mild, in sustained remission, abuse 11) Encounter for long-term (current) use of antibiotics SURROGATE DECISION MAKER Surrogate Decision Maker Primary Surrogate Decision Maker Josué An son [phone] TO HENRIQUEZ MD [address] medical receptionist Division of Hospital Medicine Department of Medicine [address] [place] [address] ateJohnathan victor MD - 12/2018 11:07 AM [...] care, follow up recs - follow up: [facility] ID faculty with preference to [...] BLED 4. Former discussion s with his subject scientific research decided against anticoagulation; on 81 mg aspirin daily (used to be 325 but reduced to 81 2/2 "GI problems"). - held asa in s/o surgery, has been restarted - continue digoxin - goal resting rate <110 # bilateral lower extremity swelling Unclear etiology. Was seeing subject scientific research who is prescribing torsemide 10 mg daily [...] used majority of his medicare SNF days, gearcase assembler working to determine whethe r paying out of pocket is an option vs investigate other dispo options. Code Status: Full Code Surrogate Decision Maker Primary Surrogate Decision Maker Josué An son [phone] This patient was staffed with Dr. To Henriquez, who agrees with the assessment and plan unle ss otherwise stated. Johnathan Lockwood MD PGY - 3 | Internal Medicine | [id number] [facility] To Mendez MD - 11/2018 8:01 AM [...] stenosis or insuff iciency: Aug 26, 2018: [facility]) 7) Essential hypertension 8) "Cirrhosis, Laennec's" (HCC) [...] it does r aise the qn of Lflsogz-Kqeus-Bykty Could have been contributor to osteo Prison Librarian re: skin/foot care (a la DM) 10) Alcohol use disorder, mild, in sustained remission, abuse 11) Encounter for long-term (current) use of antibiotics SURROGATE DECISION MAKER Surrogate Decision Maker Primary Surrogate Decision Maker Josué An son [phone] I spent ~40 minutes in the care of this patient. Greater than 50% of the time was spent co unseling and coordination of care, including visit x 3; extensive chart review (on ramos) TO HENRIQUEZ MD [address] medical receptionist Division of Hospital Medicine Department of Medicine [facility] & [address] [place] [address] auri Strickland MD - 09/12/2019 7:07 AM [...] care, follow up recs - follow up: [facility] ID faculty with preference to [...] BLED 4. Former discussion s with his subject scientific research decided against anticoagulation; on 81 mg aspirin daily (used to be 325 but reduced to 81 2/2 "GI problems"). - held asa in s/o surgery, has been restarted - continue digoxin - goal resting rate <110 # bilateral lower extremity swelling Unclear etiology. Was seeing subject scientific research who is prescribing torsemide 10 mg daily [...] used 90/100 of his medicare SNF days, gearcase assembler working to determine whether paying out of pocket is an option vs investigate other dispo options. Code Status: Full Code Surrogate Decision Maker Primary Surrogate Decision Maker Josué An son [phone] This patient was staffed with Dr. To Henriquez, who agrees with the assessment and plan unle ss otherwise stated. Gauri Strickland MD Internal Medicine [id number] signed by To Henriquez MD at 09/12/2019 [...] care, follow up recs - follow up: [facility] ID faculty with preference to [...] BLED 4. Former discussion s with his subject scientific research decided against anticoagulation; on 81 mg aspirin daily (used to be 325 but reduced to 81 2/2 "GI problems"). - held asa in s/o surgery, has been restarted - continue digoxin - goal resting rate <110 # bilateral lower extremity swelling Unclear etiology. Was seeing subject scientific research who is prescribing torsemide 10 mg daily [...] used 90/100 of his medicare SNF days, gearcase assembler working to determine whether paying out of pocket is an option vs investigate other dispo options. Code Status: Full Code Surrogate Decision Maker Primary Surrogate Decision Maker Josué An son [phone] This patient was staffed with Dr. Huerta, [...] eager to contin ue conversation with his gearcase assembler about discharge planning. Physical Examination: Last 24 [...] care, follow up recs - follow up: [facility] ID faculty with preference to [...] BLED 4. Former discussion s with his subject scientific research decided against anticoagulation; on 81 mg aspirin daily (used to be 325 but reduced to 81 2/2 "GI problems"). - held asa in s/o surgery, has been restarted - continue digoxin - goal resting rate <110 # bilateral lower extremity swelling Unclear etiology. Was seeing subject scientific research who is prescribing torsemide 10 mg daily [...] used 90/100 of his medicare SNF days, gearcase assembler working to determine whether paying out of pocket is an option vs investigate other dispo options. Code Status: Full Code Surrogate Decision Maker Primary Surrogate Decision Maker Josué An son [phone] This patient was staffed with Dr. Huerta, who agrees with the assessment and plan unless otherwise stated. Gauri Strickland MD Internal Medicine [id number] signed by Tiffanie Huerta MD at 09/10/2019 [...] has not been an issue. Enjoys working [facility] physical therapy. Denies dyspnea, nausea, abdominal pain, constipation. Fine with getting PICC line and understands need for mcfp IV antibiotics. Physical Examination: Last 24 hour [...] care, follow up recs - follow up: [facility] ID faculty with preference to [...] BLED 4. Former discussion s with his subject scientific research decided against anticoagulation; on 81 mg aspirin daily (used to be 325 but reduced to 81 2/2 "GI problems"). - held asa in s/o surgery, has been restarted - continue digoxin - goal resting rate <110 # bilateral lower extremity swelling Unclear etiology. Was seeing subject scientific research who is prescribing torsemide 10 mg daily [...] Primary Surrogate Decision Maker Josué An son [phone] This patient was staffed with Dr. Huerta, who agrees with the assessment and plan unless otherwise stated. Gauri Strickland MD Internal Medicine [id number] signed by Tiffanie Huerta MD at 09/10/2019 [...] hindfoot. 5. Placement of an external tissue insole beveler, area other than breast. 6. Placement of [...] vancomycin, until further notice, ID consult for ferry terminal supervisor plan 5. Special Concerns: case managment for discharge planning, likely discharge to SNF in [facility] consulted 6. Dressings/Drains: DRESSING CARE [...] ok to discharge from ortho perspective o kye OPAT plan and dispo arrangements have been [...] 2 seconds Aidan Antonio MD Orthopedic Surgery [id number] 11:15 AM Cory Shaikh MD - 09/09/2019 [...] the plan as listed. Cory Carmen MD [facility] [address] [place] [address] Cory Carmen Gauri Walsh MD - 09/08/2019 7:27 AM PDT General Internal Medicine 3 Progress Note 24 Hour Events: Pharmacy completed med rec via SNF MAR records per pharm: "Torsemide, potassium chloride, A SA, MVI, vitamin B12, and thiamine were added to PCAT INSTRUCTOR medication list. Of note, patient has n [...] BLED 4. Former discussion s with his subject scientific research decided against anticoagulation; on 81 mg aspirin daily (used to be 325 but reduced to 81 2/2 "GI problems"). - held asa in s/o surgery, has been restarted - continue digoxin - goal resting rate <110 # bilateral lower extremity swelling Unclear etiology. Was seeing subject scientific research who is prescribing torsemide 10 mg daily [...] Primary Surrogate Decision Maker Josué An son [phone] This patient was staffed with Dr. Huerta, who agrees with the assessment and plan unless otherwise stated. Gauri Strickland MD Internal Medicine [id number] signed by Tiffanie Huerta MD at 09/08/2019 [...] present. - he has been comfortable at [facility] assisted living with aggressive PT in the past [facility] is close to [place], his home. Deepthi Collazo AGACNP - 09/08/2019 [...] hindfoot. 5. Placement of an external tissue insole beveler, area other than breast. 6. Placement of [...] vancomycin, until further notice, ID consult for ferry terminal supervisor plan 5. Special Concerns: case managment for discharge planning, likely discharge to SNF in [facility] consulted 6. Dressings/Drains: DRESSING CARE [...] capillary refill < 2 seconds Deepthi Collazo, [facility] Orthopaedic Trauma Surgery Pager [phone] Associated attestation - Cory Carmen MD - [...] input. I will be following this patient mcfp, rather than Dr stafford or Elan. I discussed the diagnosis, imaging studies, treatment plan and prognosis with the patient and resident. I have reviewed and the above note and agree with the plan. Please do not he sitate to call me for questions. Cory Carmen MD [facility] [address]A [address] [place] [address] Arnold Taylor MD - 09/07/2019 6:22 PM PDTFormatting of this note might be differ ent from the original. Orthopaedic Surgery Progress Note Patient: /Age: MRN: CSN: Date: Admission Date: Hospital Day: Attending Physician: Monty An 1950 69 y.o. [id number] 09/07/2019 09/03/2019 4 Garth Stafford MD Procedure(s) [...] 98%, BMI 27.94 kg/(m^2). Facility age [facility] for growth percentiles is 18 years. Exam: General: Well appearing, NAD CV/Resp: Breathing comfortably, Neurologic: Awake and alert MSK: LLE Dressings c/d/i Insensate about the lower leg/foot Wiggles toes WWP distally ARNOLD TAYLOR MD Pager: [phone] 09/07/2019 Associated attestation - Garth Stafford MD [...] appetite good, concerns are c entered around ferry terminal supervisor places, specifically timeline of rehab and wound healing, as well a s what recovery will look like if he were to get a BKA. Reassured that no decisions need to be made now, can involve case management Sunday to look at SNFs. He has been to [facility] in [place] previously. Physical Examination: Last 24 hour min/max [...] BLED 4. Former discussion s with his subject scientific research decided against anticoagulation; on 81 mg aspirin daily (used to be 325 but reduced to 81 2/2 "GI problems"). - held asa in s/o surgery, restart - continue digoxin - goal resting rate <110 # bilateral lower extremity swelling Unclear etiology. Was seeing subject scientific research who is prescribing torsemide 10 mg daily [...] Primary Surrogate Decision Maker Josué An son [phone] This patient was staffed with Dr. Huerta, who agrees with the assessment and plan. Gauri Strickland MD Internal Medicine [id number] signed by Tiffanie Huerta MD at 09/07/2019 [...] in team note. - [facility] in [place] would be a reasonable SNF for him [...] seco nds Aidan Antonio MD Orthopedic Surgery [id number] 7:37 AM 09/06/2019 Gauri Walsh MD - [...] DM); HAS BLED 4. Former discussions with [facility] subject scientific research decided against anticoagulation; on 81 mg aspirin daily (used to be 325 but r educed to 81 2/2 "GI problems"). - hold asa in s/o surgery - continue digoxin - goal resting rate <110 # bilateral lower extremity swelling Unclear etiology. Was seeing subject scientific research who is prescribing torsemide 10 mg daily [...] Primary Surrogate Decision Maker Josué An son [phone] This patient was staffed with Dr. Huerta, who agrees with the assessment and plan. Gauri Strickland MD Internal Medicine [id number] signed by Tiffanie Huerta MD at 09/06/2019 [...] Orthopaedic Attending: Monty An 1950 69 y.o. [id number] 09/05/2019 09/03/2019 2 Olivier Ansari MD Diagnosis(es): [...] to make a follow up appointment in [facility] 2 weeks with ORTHO TRAUMA & FRACTURE, [...] and warm. Noel Baptiste MD [facility] [employer] Department of Orthopaedics & Rehabilitation [address] [place] [address] Mail Code: OP31 [facility] [address] Associated attestation - Olivier Ansari [...] DM); HAS BLED 4. Former discussions with [facility] subject scientific research decided against anticoagulation; on 81 mg aspirin daily (used to be 325 but r educed to 81 2/ "GI problems"). - hold asa in s/o surgery - continue digoxin - goal resting rate <110 # bilateral lower extremity swelling Unclear etiology. Was seeing subject scientific research who is prescribing torsemide 10 mg daily [...] Primary Surrogate Decision Maker Josué An son [phone] This patient was staffed with Dr. Huerta, who agrees with the assessment and plan. Gauri Strickland MD Internal Medicine [id number] signed by Tiffanie Huerta MD at 09/06/2019 [...] BLED 4 . Former discussions with his subject scientific research decided against anticoagulation; on 81 mg aspirin daily (used to be 325 but reduced to 81 2/2 "GI problems"). - hold asa in s/o surgery - continue digoxin - goal resting rate <110 # bilateral lower extremity swelling Unclear etiology. Was seeing subject scientific research who is prescribing torsemide 10 mg daily [...] Primary Surrogate Decision Maker Josué An son [phone] This patient was staffed with Dr. Huerta, [...] at facility where he lives in [facility], was discharged to home I called and spoke with night RN at [facility] He discharged home yesterday from facility They had noted exposed hardware last week, cultured wound which has not grown and started o n PO levofloxacin 500mg daily and augmentin on 09/02 He was seen by Dr Castellano at [facility] who requested transfer to [facility] for orthopedic eval From last [...] within 24 hours. Please refer to excellent director international H&P for full problem based plan. ILIR SPIVEY MD Internal Medicine, PGY-3 Pager: [phone] documented in this encou nter Plan of [...] | + + + + + | [facility] | [address] | [place] [address] | | | SERVICES, CORE | DWIGHT [...] | | | | gy, [facility] & | | | | | | [facility] | | | | | | electronic [...] | + + + + + | [facility] | [address] | [place] [address] | | | PATHOLOGY | [address] [...] | + + + + + | [facility] | [address] | [place] [address] | | | SERVICES, CORE | PARK [...] | + + + + + | [facility] | [address] | [place] [address] | | | SERVICES, FERMÍN | DWIGHT [...] | | | LABORATORY | | | TONGAN | | | SERVICES, | | | [...] MDRD equation recommended by the National | [facility] | | Kidney Disease Education Program. Estimated [...] | + + + + + | [facility] | [address] | [place] [address] | | | SERVICES, CORE | PARK [...] + + | [facility] | [address] | [place] [address] | | | SERVICES, CORE | PARK [...] [facility] | [address] | [place] [address] | | | SERVICES, CORE | PARK [...] | + + + + + | [facility] [facility] | [address] [facility] | [place] [address] | | | JV, FERMÍN | [address] | | | [...] [facility] | [address] | [place] [address] | | | SERVICES, CORE | PARK [...] | + + + + + | [facility] | [address] | [place] [address] | | | SERVICES, FERMÍN | PARK [...] | | | LABORATORY | | | TONGAN | | | SERVICES, | | | [...] | + + + + + | [facility] | [address] | [place] [address] | | | SERVICES, CORE | PARK [...] [facility] | [address] | [place] [address] | | | SERVICES, CORE | PARK [...] | | | LABORATORY | | | TONGAN | | | SERVICES, | | | [...] MDRD equation recommended by the National | [facility] | | Kidney Disease Education [...] | + + + + + | [facility] | [address] [facility] | [place] [address] | | | SERVICES, CORE | [address] | | | + + + + + X-RAY PORTABLE CHEST PICC LINE CHECK (09/09/2019 7:29 PM PDT) + + | Specimen | + + | | + + + + + | Narrative | Performed At | + + + | EXAM: MD CHEST PICC LINE CHECK HISTORY: Verify Catheter [...] Interface - 09/09/2019 8:46 PM PDT EXAM: MD CHEST | | PICC LINE CHECK HISTORY: [...] At | + + + | EXAM: MD CHEST 1 VIEW HISTORY: PICC placement COMPARISON: [...] Interface - 09/09/2019 4:46 PM PDT EXAM: MD CHEST 1 | | VIEW HISTORY: PICC [...] Cellulitis LE Procedure location: Unit: Room: [facility] | | | Providers: Attending name: Attending physically present: No PICC | | | Nurse name: AZAR Leon VAT Assisted by Maryt | | | Chantel MURO Pre-Procedure Consent: written consent | | | obtained Consent given by: Patient Patient identity confirmed per | | | protocol: Yes Team Pause: Immediatly prior to the procedure a pause | | | per protocol was called. A pause verifies correct patient, | | | procedure, equipment, production support supervisor and site/side marked as | | | [...] vein. Catheter lot number: | | | [id number] with a length of 55 cm was [...] [facility] | [address] | [place] [address] | | | SERVICES, CORE | PARK [...] [facility] | [address] | [place] [address] | | | SERVICES, CORE | PARK [...] | + + + + + | [facility] | [address] | [place] [address] | | | SERVICES, CORE | DW[address] [...] [facility] | [address] | [place] [address] | | | SERVICES, CORE | DWIGHT [...] [facility] | [address] | [place] [address] | | | SERVICES, CORE | PARK [...] | | | LABORATORY | | | TONGAN | | | SERVICES, | | | [...] | + + + + + | [facility] | [address] | [place] [address] | | | SERVICES, FERMÍN | [address] | | | + [...] [facility] | [address] | [place] [address] | | | SERVICES, CORE | DWIGHT [...] [facility] | [address] | [place], [place] | | | ALEX [facility] | [facility] | [address] | | | TESTS | | | [...] | + + + + + | [facility] | [address] | [place] [address] | | | SERVICES, CORE | DWIGHT [...] | | | LABORATORY | | | TONGAN | | | SERVICES, | | | [...] MDRD equation recommended by the National | [facility] | | Kidney Disease Education [...] | + + + + + | [facility] | [address] | [place] [address] | | | SERVICES, CORE | DWIGHT [...] [facility] | [address] | [place] [address] | | | SERVICES, | [address] [...] | + + + + + | [facility] | [address] | [place] [address] | | | SERVICES, | [address] [...] | | | + +---------+ + + [facility] VENOUS DUPLEX LOWER EXTREMITY LT (09/05/2019 [...] + + | [facility] | [address] [facility] | [place] [address] | | | SERVICES, CORE | PARK [...] | + + + + + | [facility] | [address] [facility] | [place] [address] | | | SERVICES, CORE | DWIGHT [...] DEPT OF | [address] | [place], [place] | | | CARDIOLOGY | [address] | [address] | | + + + + + [...] [facility] | [address] | [place], [place] | | | [facility] CARE | [address] | [address] | | | TESTS | | | [...] B for complete identification and susceptibilities | [place] | | Enterococcus faecalis Unable to continue [...] + | [facility] - | [address] | [place] [address] | | | [facility] | | | | + + + [...] + | [facility] - | [address] | [place] [address] | | | [place] | | | [...] Culture Report: Methicillin Resistant Staphylococcus aureus | [place] - | | Presumptive identification Refer to culture collected [facility]04[facility]2019 at | [facility] | | [facility], site [address] for complete identification and susceptibilities | [place] | | Enterococcus faecalis Refer to culture [...] | + + + + + | [place] [facility] - | [address] | [place] [address] | | | [place] | | | | + + + [...] No Propionibacterium isolated Gram | [facility] | | Stain: No squamous epithelial cells Rare polymorphonuclear cells | [place] | | No organisms seen | | [...] | + + + + + | [facility] - | [address] | [place] [address] | | | [place] | | | [...] + | [facility] - | [address] | [place] [address] | | | [facility] | | | | + + + [...] [facility] | [address] | [place] [address] | | | SERVICES, CORE | PARK [...] [facility] | [address] | [place] [address] | | | SERVICES, CORE | PARK [...] | | | LABORATORY | | | TONGAN | | | SERVICES, | | | [...] | + + + + + | [facility] | [address] [facility] | [place] [address] | | | SERVICES, CORE | [address] [...] [facility] | [address] | [place] [address] | | | SERVICES, CORE | PARK [...] | + + + + + | [facility] | [address] | [place] [address] | | | FERMÍN ZABALA | [address] [...] | [facility] | | considered for monitoring mcfp glycemic control in patients with: | LABORATORY [...] [facility] | [address] | [place] [address] | | | SERVICES, SPECIAL | PARK [...] | + + + + + | [place] [facility] - | [address] | [place] [address] | | | [place] | | | | + + + [...] + + + + + | [facility] | [address] | [place] [address] | | | SERVICES, CORE | PARK [...] | + + + + + | [facility] | [address] | [place] [address] | | | FERMÍN ZABALA | DWIGHT [...] | + + + + + | [facility] | [address] | [place] [address] | | | FERMÍN ZABALA | DW[address] [...] | + + + + + | [facility] | [address] | [place] [address] | | | SERVICES, CORE | [address] | | | + + + + + BG-LAC,POC ISTAT (09/03/2019 7:25 PM PDT) + +-------+ + + + | Component | Value | Ref Range | Performed | Pathologist | | | | | At | Signature | + +-------+ + + + | TOTAL CO2 | 28 | 23 - 29 mmol/L | [facility] - | | | JACINTO, POC | [...] [facility] | [address] | [place], [place] | | | ALEX [facility] CARE | [address] | [address] | | | TESTS | | | [...] [facility] | [address] | [place] [address] | | | SERVICES, CORE | PARK [...] [facility] | [address] | [place] [address] | | | SERVICES, FERMÍN | PARK [...] | + + + + + | [facility] | [address] | [place] [address] | | | SERVICES, CORE | DWIGHT [...] [facility] | [address] | [place] [address] | | | SERVICES, CORE | PARK [...] | | | LABORATORY | | | TONGAN | | | SERVICES, | | | [...] MDRD equation recommended by the National | [facility] | | Kidney Disease Education [...] | + + + + + | [facility] | [address] | [place] [address] | | | SERVICES, [facility] | [address] | | | + [...] Preliminary: Makeda James MD Dictation initiated: Makeda Jamse MD 09/03/2019 8:15 PM | | | [...] MD 09/03/2019 8:31 PM | |Preliminary: Makeda aJmes MD | |Dictation initiated: Makeda James MD [...] [facility] | [address] | [place] [address] | | | SERVICES, | [address] [...] | + + + + + | [facility] | [address] | [place] [address] | | | SERVICES, CORE | DW[address] [...] [facility] | [address] | [place] [address] | | | SERVICES, CORE | PARK [...] | + + + + + | [facility] | [address] | [place] [address] | | | SERVICES, FERMÍN | DW[address] [...] | | | | | NEEDED, Starting [facility] 09/04/19 at | | 19 4:05 [...] PDT | | | | | Starting [facility] 09/04/19 at 1845, | | | [...] | | | | | dose on [facility] 09/04/19 at 0900, | | AM [...]
--- OUTSIDE RECORDS SUMMARY | ~2020-06-01 | XMS | Encounter Summary ---
Demographics + + + | Address | [address] | | | [place] [address] | + + + | Home Phone | | + + + | Preferred Language | Unknown | + + + | Marital Status | Single | + + + | Adventist Affiliation | NRP | + + + | Race | White | + + + | Ethnic Group | Not or | + + + Author + + + | Author | [facility] | + + + | Organization | [facility] | + + + | [...] Team Providers + +------+ + | Care Diet Assistant Name | Role | Phone | + +------+ + | Dustin Perez MD | PCP | | + +------+ + Reason for Visit + + + | Reason | Comments | + + + | Lab Results | | + + + Encounter Details +--------+ + + + + | Date | Type | Department | Care Team | Description | +--------+ + + + + | 10/02/ | Documentati | Infectious | Trish Baum, | Lab Results | | 2019 | on | Diseases at [facility] | MD [address] | | | | | [address] | [address] | | | | | Loop Physician's | [place], [place] | | | | | Vikas, [facility] floor | [address] | | | | | [place], [place] | [phone] | | | | | [address] | | | | | | [phone] | | | +--------+ + + + [...]
--- OUTSIDE RECORDS SUMMARY | ~2020-06-01 | XMS | Encounter Summary ---
Demographics + + + | Address | [address] | | | [place] [address] | + + + | Home Phone | | + + + | Preferred Language | Unknown | + + + | Marital Status | Single | + + + | Lutheran Affiliation | Unknown | + + + | Race | Unknown | + + + | Ethnic Group | Unknown | + + + Author + + + | Author | [facility] | | | and [place] | + + + | Organization | [facility] | | | [...] Team Providers + +------+ + | Care Junction Maker Name | Role | Phone | + +------+ + | Dustin Perez MD | PCP | | + +------+ + Reason for Visit + +--------+ + | Reason | Onset | Comments | | | Date | | + +--------+ + | Coordination Of Care | 10/29/ | | | | 2019 | | + +--------+ + Encounter Details +--------+ + + + + | Date | Type | Department | Care Team | Description | +--------+ + + + + | 10/29/ | Telephone | [facility] | Scotty Donovan DO | Coordination Of Care | | 2019 | | INFECTIOUS DISEASE | [address] | | | | | [address] | [place] [address] | | | | | [place], [place] | [phone] | | | | | [address] | | | | | | [phone] | | | +--------+ + + + [...] Telephone Encounter - Heather Russo RN - 10/29/2019 3:32 PM PSTUpdated IV antibiotic s list. elephone E Beatriz Cruz Liturgical Music Director - 10/29/2019 3:08 PM PSTPatient to end Antibiot ics on 10/31. Order to D/C picc line on 10/31 send with Patient to [place]. Beatriz Patel. CMA docum ented in this encounter Plan of Treatment Not on filedocumented as of this encounter Visit Diagnoses Not on filedocumented in this encounter"
--- OUTSIDE RECORDS SUMMARY | ~2020-06-01 | XMS | Encounter Summary ---
Demographics + + + | Address | [address] | | | [place] [address] | + + + | Home Phone | | + + + | Preferred Language | Unknown | + + + | Marital Status | Single | + + + | Orthodox Affiliation | Unknown | + + + | Race | Unknown | + + + | Ethnic Group | Unknown | + + + Author + + + | Author | [facility] | | | and [place] | + + + | Organization | [facility] | | [...] Team Providers + +------+ + | Care Synthetic Filament Extruder Name | Role | Phone | + [...] + + | 10/30/ | Telephone | [facility] | Heather Russo | Other (care | | 2019 | | INFECTIOUS DISEASE | Alvino RN | coordination) | | | | [address] | | | | | | [place] | | | | | | [address] | | | | | | [phone] | | | +--------+ + + + [...] Russo RN - 11/03/2019 3:41 PM PSTCalled Dewey Olvin berg, verified with staff at facility, patient picc line was removed prior to patient disch arge on Sunday10/31/2019. Will remove from IV antibiotics tracking registry at this time. E lectronically signed by Heather Russo RN at 11/03/2019 3:44 PM PSTTelephone Encounter - Heather Russo RN - 10/30/2019 10:04 AM PSTReceived voice message from Dewey Olvin berg, regarding patient last dose of IV Vancomycin and potential discharge from facility by Wednesday 10/31. Reviewed [facility] progress notes. Patient seen by Dr Donovan 10/29/19, note states under plan section: I have given an order for his PICC line to be removed following his completion of antibioti c therapy evening, to be removed no later than Sunday Prior to discharge. Faxed copy of progress notes to [facility], Fax confirmation received. Called Germain singh and left voice message for RCM with the same information. No further concerns at th is time. documented in this encounter Plan of Treatment Not on filedocumented as of this encounter Visit Diagnoses Not on filedocumented in this encounter"
--- OUTSIDE RECORDS SUMMARY | ~2020-06-01 | XMS | Clinical Summary ---
Demographics + + + | Address | [address] | | | [place] [address] | + + + | Home Phone | | + + + | Preferred Language | Unknown | + + + | Marital Status | Single | + + + | Synagogue Affiliation | NRP | + + + [...] Team Providers + +------+ + | Care Tool Dispatcher Name | Role | Phone | + +------+ + | Dustin Perez MD | PCP | | + +------+ + Source Comments [facility] is fully live on both [facility] Allergies No Known Allergies Medications + + + +---------+------+------+-------+ | Medication | Sig | Dispensed | Refills | Star | End | Statu | | | | | | t | Date | s | | | | | | Date | | | + + + +---------+------+------+-------+ | melatonin 3 mg | Take 3 mg by mouth | | 0 | | | Activ | | oral tablet | once daily in the | | | | | e | | | evening. | | | | | | + + + +---------+------+------+-------+ | gabapentin 600 mg | Take 600 mg by mouth | | 0 | | | Activ | | oral | three times daily. | | | | | e | | tabletIndications: | Indications: | | | | | | | alcoholism | alcoholism | | | | | | + + + +---------+------+------+-------+ | tamsulosin 0.4 mg | Take 0.4 mg by mouth | | 0 | | | Activ | | oral capsule | once daily. | | | | | e | + + + +---------+------+------+-------+ | digoxin 125 mcg | Take 125 mcg by | | 0 | | | Activ | | oral | mouth once daily. | | | | | e | | tabletIndications: | Indications: | | | | | | | ventricular rate | Ventricular Rate | | | | | | | control in atrial | Control in Atrial | | | | | | | fibrillation | Fibrillation | | | | | | + + + +---------+------+------+-------+ | omeprazole 20 mg | Take 20 mg by mouth | | 0 | | | Activ | | oral capsule,delayed | two times daily. | | | | | e | | release(DR/EC) | Administer 30 to 60 | | | | | | | | minutes before meals | | | | | | + + + +---------+------+------+-------+ | torsemide 10 mg | Take 10 mg by mouth | | 0 | | | Activ | | oral | once daily in the | | | | | e | | tabletIndications: | morning. | | | | | | | edema | Indications: visible | | | | | | | | water retention | | | | | | + + + +---------+------+------+-------+ | aspirin EC 81 mg | Take 81 mg by mouth | | 0 | | | Activ | | oral tablet,delayed | once daily. | | | | | e | | release | Indications: atrial | | | | | | | (DR/EC)Indications: | fibrillation | | | | | | | atrial fibrillation | | | | | | | + + + +---------+------+------+-------+ | thiamine | Take 100 mg by mouth | | 0 | | | Activ | | mononitrate 100 mg | once daily. | | | | | e | | oral tablet | | | | | | | + + + +---------+------+------+-------+ | cyanocobalamin 100 | Take 500 mcg by | | 0 | | | Activ | | mcg oral tablet | mouth once daily. | | | | | e | + + + +---------+------+------+-------+ | multivitamin-iron | Take 1 tablet by | | 0 | | | Activ | | oral tablet | mouth once daily. | | | | | e | + + + +---------+------+------+-------+ | potassium chloride | Take 1 tablet by | 30 | 0 | 11/0 | | Activ | | SR 20 mEq oral | mouth once daily. | tablet | | 6/20 | | e | | tablet,ER | | | | 19 | | | | particles/crystals | | | | | | | + + + +---------+------+------+-------+ | acetaminophen 500 | Take 2 tablets by | | 0 | 11/0 | | Activ | | mg oral | mouth three times | | | 6/20 | | e | | tabletIndications: | daily. | | | 19 | | | | Infection of lower | | | | | | | | extremity associated | | | | | | | | with hardware (HCC) | | | | | | | + + + +---------+------+------+-------+ | polyethylene | Mix 1 packet and | | 0 | 11/0 | | Activ | | glycol 17 gram oral | take orally once | | | 6/20 | | e | | powder in packet | daily. | | | 19 | | | + + + +---------+------+------+-------+ | gabapentin 300 mg | Take 2 capsules by | 90 | 0 | 11/0 | | Activ | | oral | mouth three times | capsule | | 6/20 | | e | | capsuleIndications: | daily. 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 Cindy Horan? Other? 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 | 09/04/2019 | + + + | Abscess | 09/04/2019 | + + + Encounters +--------+ + + + + | Date | Type | Specialty | Care Team | Description | +--------+ + + + + | 05/04/ | Telephone-S | Orthopedics | Cory Carmen, | Follow-up visit | | 2020 | cheduled | | MD | | +--------+ + + + + from Last 3 Months Immunizations + + + + | Name | Administration Dates | Next Due | + + + + | Influenza, high dose | 09/17/2019 | | | seasonal, | | | | preservative-free | | | + + + + Social History + [...] | | + + + + + Plan of Treatment + + + + + | Health Maintenance | Due Date | Last Done | Comments | + + + + + | Pneumococcal | | 07/14/2009 | | | vaccination (1 of 2 | 5 | | | | - PCV13) | | | | + + + + + | Influenza (Flu) | Completed | 09/17/2019, 08/24/2018, | | | vaccination | | 08/18/2016, Additional history | | | | | exists | | + + + + + Implants + +------+--------+ +--------+--------+--------+ | Implanted | Type | Area | Manufacture | Device | Shelf | Model | | | | | r | | Expira | / | | | | | | Identi | tion | Serial | | | | | | fier | Date | / Lot | + +------+--------+ +--------+--------+--------+ | Cement Bone Refobacin 1x40 W/ | | Left: | JULISA | | 05/11/ | [id number] | | Gentamicin - | | Foot | | | 2020 | 355 / | | [id number]: Qty: 2 on | | | | | | /[id number] | | 09/04/2019 by Elan, | | | | | | [id number] | | Olivier Mills MD at [facility] | | | | | | | | INPATIENT REV LOC | | | | | | | + +------+--------+ +--------+--------+--------+ Procedures + +--------+ + + + | Procedure Name | Priori | Date/Time | Associated Diagnosis | Comments | | | ty | | | | + +--------+ + + + | OUTSIDE RADIOLOGY - | | 05/03/2020 | | Results for this | | X-RAY | | 12:00 AM | | procedure are in the | | | | PDT | | results section. | + +--------+ + + + from Last 3 Months Results OUTSIDE RADIOLOGY - X-RAY (05/03/2020 12:00 AM PDT) + + + | Narrative | Performed At | + + + | | | + + + from Last 3 Months Additional Health Concerns + + + + + | Infection | Onset Date | Last Indicated | Resolved Time | + + + + + | Methicillin | 09/04/2019 | 09/09/2019 | | | Resistant Staph | | | | | Aureus | | | | + + + + + Insurance + +--------+ +--------+ + +--------+ | Payer | Benefi | Subscriber | Effect | Phone | Address | Type | | | t Plan | ID | corry | | | | | | / | | Dates | | | | | | Group | | | | | | + +--------+ +--------+ + +--------+ | MEDICARE | MEDICA | xxxxxxxxxxx | 12/13/19 | [phone] | [address] | Med[address] | | | RE A & | | 07-Pre | 1 | [phone] | | | B | | sent | | [place] | | | | | | | | [phone] | | + +--------+ +--------+ + +--------+ | MODA MEDICARE | MODA | xxxxxxxxx | 11/01/ | [phone] | [address] | POS | | SUPPLEMENT | MEDICA | | 2015-P | 4 | [id number] | | | | RE | | resent | | [place], | | | | SUPPLE | | | | [place] [address] | | | | MENT | | | | | | + [...] | Self | [birth year] | [address] | | | al/Fam | | 1950 | [phone] | [place] [address] | | | ursula | | | 9 (Home) | | + +--------+ +--------+ + + Advance Directives + + + + + | Code Status | Date | Date | Comments | | | Activated | Inactivated | | + + + + + | Full Code | 09/04/2019 | 09/17/2019 | | | | 2:39 AM | 6:13 PM | | + + + + +
--- OUTSIDE RECORDS SUMMARY | ~2020-06-01 | XMS | Encounter Summary ---
Demographics + + + | Address | [address] | | | [place] [address] | + + + | Home Phone | | + + + | Preferred Language | Unknown | + + + | Marital Status | Single | + + + | Islam Affiliation | Unknown | + + + [...] Team Providers + +------+ + | Care Group Contract Analyst Name | Role | Phone | + +------+ + | Dustin Perez MD | PCP | | + +------+ + Encounter Details +--------+ + + + + | Date | Type | Department | Care Team | Description | +--------+ + + + + | 07/03/ | Orders Only | [facility] | Susannah Guo V, | | | 2019 | | CONVERSION [address] | [address] | | | | | [address] | [address] [place], [place] | | | | | [place], [place] | [address] | | | | | [phone] | | | | | | [phone] | | | +--------+ + + + [...] | OF OUTSIDE FILMS | e | 5:58 PM | | procedure are in the | | | | PDT | | results section. | + +--------+ + + + documented in this encounter Results ECHO Interpretation of Outside Films (05/01/2017 5:58 PM PDT) + + | Specimen | [...] | color flow Doppler was perfomed at [facility]. Study: This | | | [...] Ao asc: 3.03 cm Ao sinus: 3.31 cm | | | EDV(Teich): 117.28 ml IVSd: 1.05 cm LVIDd: 4.98 cm LVPWd: | | | 0.91 cm LVOT Diam: 2.28 cm %FS: 31.66 % EF(Teich): | | | 59.41 % ESV(Teich): 47.59 ml LVIDs: 3.40 cm SV(Teich): | | | 69.68 ml RVIDd: 2.88 cm LVEF MOD A2C: 53.17 % SV MOD A2C: | | | 39.28 ml LVEF MOD A4C: 56.35 % SV MOD A4C: 33.82 ml EF | | | Biplane: 54.18 % LVEDV MOD BP: 67.02 ml LVESV MOD BP: 30.70 | | | ml LVEDV MOD A2C: 73.87 ml LVLd A2C: 7.28 cm LVEDV MOD A4C: | | | 60.01 ml LVLd A4C: 7.40 cm LVESV MOD A2C: 34.59 ml LVLs | | | A2C: 6.13 cm LVESV MOD A4C: 26.19 ml LVLs A4C: 5.83 cm | | | LAESV(A-L): 68.41 ml LAESV Index (A-L): 31.24 ml/m2 LAAs A2C: | | | 19.15 cm2 LAESV A-L A2C: 60.27 ml LALs A2C: 5.16 cm LAAs | | | A4C: 21.74 cm2 LAESV A-L A4C: 77.46 ml LALs A4C: 5.18 cm | | | RAAs: 16.35 cm2 RAESV A-L: 49.97 ml RAESV MOD: 45.62 ml | | | RALs: 4.54 cm AV maxP.86 mmHg AV meanP.31 mmHg AV | | | Vmax: 1.64 m/s AV Vmean: 1.08 m/s AV VTI: 28.52 cm CALI | | | Vmax: 1.70 cm2 CALI (VTI): 2.12 cm2 AVAI Vmax: 0.00 cm2/m2 | | | AVAI (VTI): 0.00 cm2/m2 LVOT maxP.90 mmHg LVOT meanPG: | | | 1.13 mmHg LVSI Dopp: 27.66 ml/m2 LVSV Dopp: 60.58 ml LVOT | | | Vmax: 0.68 m/s LVOT Vmean: 0.50 m/s LVOT VTI: 14.83 cm MV | | | E Elliot: 1.12 m/s MV DecT: 129.17 ms TR maxP.27 mmHg TR | | | Vmax: 2.46 m/s Cash Sales Audit Clerk: MISTY Authenticated by: JOHN | | | MD LUANA Report Date/Time: 05-01-2017 17:57:56 | | + + + + + | Procedure Note | + + | Valdemar, Rad Conversion - 07/03/2019 8:21 PM PDT Patient Name: Cece An | | : 1950 Performing Physician: JOHN [...] flow Doppler was perfomed | | at [facility].Study: This was a technically adequate [...] mlLAESV Index (A-L): 31.24 ml/m2LAAs A2C: 19.15 [id number] A-L | | A2C: 60.27 mlLALs A2C: 5.16 cmLAAs A4C: 21.74 [id number] A-L A4C: 77.46 mlLALs | | A4C: 5.18 cmRAAs: 16.35 [id number] A-L: 49.97 mlRAESV MOD: 45.62 mlRALs: 4.54 | | cmAV maxP.86 mmHgAV meanP.31 mmHgAV Vmax: 1.64 m/Brenda Vmean: 1.08 m/Brenda | | VTI: 28.52 cmAVA Vmax: 1.70 cm2AVA (VTI): 2.12 [id number] Vmax: 0.00 cm2/m2AVAI | | (VTI): 0.00 cm2/m2LVOT maxP.90 mmHgLVOT meanP.13 mmHgLVSI Dopp: 27.66 | | ml/m2LVSV Dopp: 60.58 mlLVOT Vmax: 0.68 m/sLVOT Vmean: 0.50 m/sLVOT VTI: 14.83 | | cmMV E Elliot: 1.12 m/sMV DecT: 129.17 msTR maxP.27 mmHgTR Vmax: 2.46 m/s | | Cash Sales Audit Clerk: DBSAuthenticated by: Dagoberto TORIBIO Date/Time: 05-01-2017 17:57:56 | [...] |TR Vmax: 2.46 m/s | | | |Cash Sales Audit Clerk: DBS | |Authenticated by: JOHN CRAFT MD [...]
--- OUTSIDE RECORDS SUMMARY | ~2020-06-01 | XMS | Encounter Summary ---
Demographics + + + | Address | [address] | | | [place] [address] | + + + | Home Phone [...] + + + | Author | [facility] | + + + | Organization | [facility] | + + + | [...] Team Providers + +------+ + | Care Prep Person Name | Role | Phone | + [...] | | | | | | Rd [facility] | | | | | | Hospital Admitting | | | | | | Desk Located on the | | | | | | 9th floor | | | | | | [place], [place] | | | | | | [phone] | | | +--------+ + + + [...]
--- OUTSIDE RECORDS SUMMARY | ~2020-06-01 | XMS | Encounter Summary ---
Demographics + + + | Address | [address] | | | [place] [address] | + + + | Home Phone [...] Team Providers + +------+ + | Care Swine Genetics Researcher Name | Role | Phone | + [...] + + | 09/03/ | Hospital | [facility] [address] | Ariana Guillen, | | | 2019 - | Encounter | [address] | [address] | | | | | 12/S31 [facility] | [address] | | | 09/17/ | | Hospital [place], | [place], [place] | | | 2019 | | [place] [address] | [address] | | | | | [phone] | [phone] | | | | | | | | | | | | Tiffanie Huerta, | | | | | | [address] | | | | | | [address] | | | | | | [place], [place] | | | | | | [address] | | | | | | [phone] | | | | | | | | | | | | Abhilash Fatima MD | | | | | | [address] [facility] | | | | | | [facility], | | | | | | [place] [address] | | | | | | [phone] | | | | | | | | | | | | Elizabeth Cobos, | | | | | | [address] [facility] | | | | | | [facility] | | | | | | [place], [place] | | | | | | [address] | | | | | | [phone] | | | | | | | | | | | | To Henriquez MD | | | | | | [address] [facility] | | | | | | [facility], | | | | | | [place] [address] | | | | | | [phone] | | | | | | | [...] Hemphill MD - 09/17/2019 12:07 PM PST [facility] Discharge Summary Discharging Provider: Johnathan Hemphill MD Discharging Attending Physician: To Henriquez MD PCP: Rio Huerta MD Admission Date: 09/03/2019 Discharge Date: 09/17/2019 Hospital Stay: 14 day(s) Discharge Location: [facility] [place] PH. [phone] [facility] FOLLOW UP NEEDS: 1) Infectious Disease, [facility], ~10/08/2019 2) Orthopedi LILIYA carcamo/[facility] Principal Diagnosis: #) Necrotizing [...] hindfoot. 5. Placement of an external tissue color consultant, area other than breast. 6. Placement of [...] vancomycin trough levels - ID F/U in [place], ~10/08 timeframe - Wound check and suture removal by 09/26/2019; OK for SNF to remove sutures - Ortho F/U ~10/21 timeframe w/ Dr. Carmen in [facility] - Activity restrictions: LLE: NWB, elevated, [...] BLED 4. Former discussion s with his distiller decided against anticoagulation; on 81 mg aspirin [...] and dry. If you have sutures or igselle, do not get your wound wet for [...] follow/manage patient "I certify that post-hospital inpatient correction facility care is medically necessar y on a continuing basis for treatment of the same condition for which inpatient acute hospit al care was received." JOHNATHAN HEMPHILL MD Discharge Destination - Selection Complete Service Provider Request Status Selected Services Address Phone Number Fax Number Hellen Calvillo Selected [facility] [address], [place] [address] Home [...] Surgery Why: For wound re-check Contact information [facility] [place] [address] RIO HUERTA MD. Go on 09/24/2019. Specialty: Family Medicine Why: Appt: Tuesday, September 24, 2019 @ 08:40am. Address: [address] [place] [address], [address], [place], [place] Contact information [facility] [address] [place] [address] Surya Coffman MD. Go on 09/30/2019. Why: Appt: Monday, September 30, 2019 @ 09:45am Contact information [address] [place], [place] [phone] Contact information for after-discharge care Discharge Destination [facility] . Service: Fdc Contact information [address] [place] [address] Discharge Physical Exam: Last 24 hour min/max [...] PGY - 3 | Internal Medicine | [id number] [facility] [place] Associated attestation - To Henriquez MD - [...] (HCC) = per chart 9) Gynecomastia, male (Ujni III) 10) Neuropathy, hereditary sensory (per patient w ++ 1st degree FH) 11) Alcohol use disorder, mild, in sustained remission, abuse 12) Encounter for long-term (current) use of antibiotics SURROGATE DECISION MAKER Surrogate Decision Maker Primary Surrogate Decision Maker Josué An son [phone] TO HENRIQUEZ MD [address] acquisition marketing manager Division of Hospital Medicine Department of Medicine [address] [place] [phone] documented in this encounter Discharge Instructions Discharge [...] follow/manage patient "I certify that post-hospital inpatient correction facility care is medically necessar y on [...] | | | | | with hardware ([facility]) | | | | | [...] (per patient w ++ 1st degree FH) Funeral Prearrangement Counselor re: skin/foot care (a la DM) 10) Alcohol use disorder, mild, in sustained remission, abuse 11) Encounter for long-term (current) use of antibiotics SURROGATE DECISION MAKER Surrogate Decision Maker Primary Surrogate Decision Maker Josué An son [phone] TO HENRIQUEZ MD [address] acquisition marketing manager Division of [facility] Medicine Department of Medicine [address] [place] [address] Amber Wan MD - 1 11/16/2018 7:13 [...] care, follow up recs - follow up: [facility] ID faculty with preference to schedule [...] BLED 4. Former discussion s with his distiller decided against anticoagulation; on 81 mg aspirin daily (used to be 325 but reduced to 81 2/2 "GI problems"). - held asa in s/o surgery, has been restarted - continue digoxin - goal resting rate <110 # bilateral lower extremity swelling Unclear etiology. Was seeing distiller who is prescribing torsemide 10 mg daily [...] Dispo: patient ready to discharge tomorrow to [facility] in [place]. Code Status: Full Code Surrogate Decision Maker Primary Surrogate Decision Maker Josué An son [phone] This patient was staffed with Dr. To [...] there are not currnet signs of decompensation Funeral Prearrangement Counselor on his 'near miss' and importance of good 'liver care' in future 9) Neuropathy, hereditary sensory (per patient w ++ 1st degree FH) Not noted in 'history' but with suggestion of pes cavus, and ++ family history it does r aise the qn of Yeoatgv-Tqnap-Mbmqt Could have been contributor to osteo Funeral Prearrangement Counselor re: skin/foot care (a la DM) 10) Alcohol use disorder, mild, in sustained remission, abuse 11) Encounter for long-term (current) use of antibiotics SURROGATE DECISION MAKER Surrogate Decision Maker Primary Surrogate Decision Maker Josué An son [phone] TO HENRIQUEZ MD [facility] 4A acquisition marketing manager Division of Hospital Medicine Department of Medicine [facility] & [address] 12/[facility] [place] [phone] Amber Wan MD - 1 11/15/2018 6:26 [...] care, follow up recs - follow up: [facility] ID faculty with preference to schedule [...] BLED 4. Former discussion s with his distiller decided against anticoagulation; on 81 mg aspirin daily (used to be 325 but reduced to 81 2/2 "GI problems"). - held asa in s/o surgery, has been restarted - continue digoxin - goal resting rate <110 # bilateral lower extremity swelling Unclear etiology. Was seeing distiller who is prescribing torsemide 10 mg daily [...] used majority of his medicare SNF days, counseling case manager working to determine whethe r paying out of pocket is an option vs investigate other dispo options. Code Status: Full Code Surrogate Decision Maker Primary Surrogate Decision Maker Josué An son [phone] This patient was staffed with Dr. To [...] care, follow up recs - follow up: [facility] ID faculty with preference to schedule [...] BLED 4. Former discussion s with his distiller decided against anticoagulation; on 81 mg aspirin daily (used to be 325 but reduced to 81 2/2 "GI problems"). - held asa in s/o surgery, has been restarted - continue digoxin - goal resting rate <110 # bilateral lower extremity swelling Unclear etiology. Was seeing distiller who is prescribing torsemide 10 mg daily [...] used majority of his medicare SNF days, counseling case manager working to determine whethe r paying out of pocket is an option vs investigate other dispo options. Code Status: Full Code Surrogate Decision Maker Primary Surrogate Decision Maker Josué An son [phone] This patient was staffed with Dr. To [...] stenosis or insuff iciency: Aug 26, 2018: [facility]) 7) Essential hypertension 8) "Cirrhosis, Laennec's" (HCC) [...] it does r aise the qn of Tgqagxi-Jbcyf-Kifxk Could have been contributor to osteo Funeral Prearrangement Counselor re: skin/foot care (a la DM) 10) Alcohol use disorder, mild, in sustained remission, abuse 11) Encounter for long-term (current) use of antibiotics SURROGATE DECISION MAKER Surrogate Decision Maker Primary Surrogate Decision Maker Josué An son [phone] TO HENRIQUEZ MD [address] acquisition marketing manager Division of [facility] Medicine Department of Medicine [facility] [address] [place] [phone] To Leach MD - 09/13 12:33 PM [...] stenosis or insuff iciency: Aug 26, 2018: [facility]) 7) Essential hypertension 8) "Cirrhosis, [...] it does r aise the qn of Okdupqy-Cfmvc-Eufsq Could have been contributor to osteo Funeral Prearrangement Counselor re: skin/foot care (a la DM) 10) Alcohol use disorder, mild, in sustained remission, abuse 11) Encounter for long-term (current) use of antibiotics SURROGATE DECISION MAKER Surrogate Decision Maker Primary Surrogate Decision Maker Josué An son [phone] TO HENRIQUEZ MD [address] acquisition marketing manager Division of Hospital Medicine Department of Medicine [facility] & [address] [place] [address] Johnathan Roach MD - 12/2018 11:07 AM [...] care, follow up recs - follow up: [facility] ID faculty with preference to schedule [...] BLED 4. Former discussion s with his distiller decided against anticoagulation; on 81 mg aspirin daily (used to be 325 but reduced to 81 2/2 "GI problems"). - held asa in s/o surgery, has been restarted - continue digoxin - goal resting rate <110 # bilateral lower extremity swelling Unclear etiology. Was seeing distiller who is prescribing torsemide 10 mg daily [...] used majority of his medicare SNF days, counseling case manager working to determine whethe r paying out of pocket is an option vs investigate other dispo options. Code Status: Full Code Surrogate Decision Maker Primary Surrogate Decision Maker Josué An son [phone] This patient was staffed with Dr. To Henriquez, who agrees with the assessment and plan unle ss otherwise stated. Johnathan Hemphill MD PGY - 3 | Internal Medicine | [id number] [facility] [place] untTo justice MD - 11/2018 8:01 AM [...] stenosis or insuff iciency: Aug 26, 2018: [facility]) 7) Essential hypertension 8) "Cirrhosis, [...] it does r aise the qn of Sgmkpty-Lvcnf-Qdvue Could have been contributor to osteo Funeral Prearrangement Counselor re: skin/foot care (a la DM) 10) Alcohol use disorder, mild, in sustained remission, abuse 11) Encounter for long-term (current) use of antibiotics SURROGATE DECISION MAKER Surrogate Decision Maker Primary Surrogate Decision Maker Josué An son [phone] I spent ~40 minutes in the care of this patient. Greater than 50% of the time was spent co unseling and coordination of care, including visit x 3; extensive chart review (on ramos) TO HENRIQUEZ MD [address] acquisition marketing manager Division of Hospital Medicine Department of Medicine [facility] & [address] [place] [phone] Gauri Walsh MD - 09/12/2019 7:07 AM [...] care, follow up recs - follow up: [facility] ID faculty with preference to schedule [...] BLED 4. Former discussion s with his distiller decided against anticoagulation; on 81 mg aspirin daily (used to be 325 but reduced to 81 2/2 "GI problems"). - held asa in s/o surgery, has been restarted - continue digoxin - goal resting rate <110 # bilateral lower extremity swelling Unclear etiology. Was seeing distiller who is prescribing torsemide 10 mg daily [...] used 90/100 of his medicare SNF days, counseling case manager working to determine whether paying out of pocket is an option vs investigate other dispo options. Code Status: Full Code Surrogate Decision Maker Primary Surrogate Decision Maker Josué An son [phone] This patient was staffed with Dr. To Henriquez, who agrees with the assessment and plan unle ss otherwise stated. Gauri Strickland MD Internal Medicine [id number] signed by To Henriquez MD at 09/12/2019 [...] care, follow up recs - follow up: [facility] ID faculty with preference to schedule [...] BLED 4. Former discussion s with his distiller decided against anticoagulation; on 81 mg aspirin daily (used to be 325 but reduced to 81 12/14 "GI problems"). - held asa in s/o surgery, has been restarted - continue digoxin - goal resting rate <110 # bilateral lower extremity swelling Unclear etiology. Was seeing distiller who is prescribing torsemide 10 mg daily [...] used 90/100 of his medicare SNF days, counseling case manager working to determine whether paying out of pocket is an option vs investigate other dispo options. Code Status: Full Code Surrogate Decision Maker Primary Surrogate Decision Maker Josué An son [phone] This patient was staffed with Dr. Huerta, [...] eager to contin ue conversation with his counseling case manager about discharge planning. Physical Examination: Last 24 [...] care, follow up recs - follow up: [facility] ID faculty with preference to schedule [...] BLED 4. Former discussion s with his distiller decided against anticoagulation; on 81 mg aspirin daily (used to be 325 but reduced to 81 2/2 "GI problems"). - held asa in s/o surgery, has been restarted - continue digoxin - goal resting rate <110 # bilateral lower extremity swelling Unclear etiology. Was seeing distiller who is prescribing torsemide 10 mg daily [...] used 90/100 of his medicare SNF days, counseling case manager working to determine whether paying out of pocket is an option vs investigate other dispo options. Code Status: Full Code Surrogate Decision Maker Primary Surrogate Decision Maker Josué An son [phone] This patient was staffed with Dr. Huerta, who agrees with the assessment and plan unless otherwise stated. Gauri Strickland MD Internal Medicine [id number] signed by Tiffanie Huerta MD at 09/10/2019 [...] has not been an issue. Enjoys working [facility] physical therapy. Denies dyspnea, nausea, abdominal pain, constipation. Fine with getting PICC line and understands need for intermission coordinator IV antibiotics. Physical Examination: Last 24 hour [...] care, follow up recs - follow up: [facility] ID faculty with preference to schedule [...] BLED 4. Former discussion s with his distiller decided against anticoagulation; on 81 mg aspirin daily (used to be 325 but reduced to 81 2/2 "GI problems"). - held asa in s/o surgery, has been restarted - continue digoxin - goal resting rate <110 # bilateral lower extremity swelling Unclear etiology. Was seeing distiller who is prescribing torsemide 10 mg daily [...] Primary Surrogate Decision Maker Josué An son [phone] This patient was staffed with Dr. Huerta, who agrees with the assessment and plan unless otherwise stated. Gauri Strickland MD Internal Medicine [id number] signed by Tiffanie Huerta MD at 09/10/2019 [...] hindfoot. 5. Placement of an external tissue color consultant, area other than breast. 6. Placement of [...] vancomycin, until further notice, ID consult for intermission coordinator plan 5. Special Concerns: case managment for discharge planning, likely discharge to SNF in [place] Wound Care consulted 6. Dressings/Drains: DRESSING CARE [...] We would be happy to see Mr nA in clinic for wound check and suture [...] 2 seconds Aidan Antonio MD Orthopedic Surgery [id number] 11:15 AM Cory Shaikh MD - 09/09/2019 [...] the plan as listed. Cory Carmen MD [facility] [address]A [address] [facility] [address] [place] [address] Cory Carmen Gauri Walsh MD - 09/08/2019 7:27 AM PDT General Internal Medicine 3 Progress Note 24 Hour Events: Pharmacy completed med rec via [facility] records per pharm: "Torsemide, potassium chloride, A SA, MVI, vitamin B12, and thiamine were added to SMALL ARMS REPAIRER medication list. Of note, patient has n [...] BLED 4. Former discussion s with his distiller decided against anticoagulation; on 81 mg aspirin daily (used to be 325 but reduced to 81 2/ "GI problems"). - held asa in s/o surgery, has been restarted - continue digoxin - goal resting rate <110 # bilateral lower extremity swelling Unclear etiology. Was seeing distiller who is prescribing torsemide 10 mg daily [...] Primary Surrogate Decision Maker Josué An son [phone] This patient was staffed with Dr. Huerta, who agrees with the assessment and plan unless otherwise stated. Gauri Strickland MD Internal Medicine [id number] signed by Tiffanie Huerta MD at 09/08/2019 [...] present. - he has been comfortable at [facility] assisted [facility] with aggressive PT in the past [facility] is close to [place], his home. Deepthi Collazo AGACNP - 09/08/2019 [...] hindfoot. 5. Placement of an external tissue color consultant, area other than breast. 6. Placement of [...] vancomycin, until further notice, ID consult for intermission coordinator plan 5. Special Concerns: case managment for discharge planning, likely discharge to SNF in [place] Wound Care consulted 6. Dressings/Drains: DRESSING CARE [...] capillary refill < 2 seconds Deepthi Collazo, [facility] Orthopaedic Trauma Surgery Pager [phone] Associated attestation - Cory Carmen MD - [...] input. I will be following this patient group home, rather than Dr cochran or [facility]. I discussed the diagnosis, imaging studies, treatment plan and prognosis with the patient and resident. I have reviewed and the above note and agree with the plan. Please do not he sitate to call me for questions. Cory Carmen MD [facility] [address] [place] [address] Arnold Taylor MD - 09/07/2019 6:22 PM PDTFormatting of this note might be differ ent from the original. Orthopaedic Surgery Progress Note Patient: /Age: MRN: CSN: Date: Admission Date: Hospital Day: Attending Physician: Monty An 1950 69 y.o. [id number] 09/07/2019 09/03/2019 4 Garth Cochran MD Procedure(s) [...] SpO2 98%, BMI 27.94 kg/(m^2). Facility age [facility] is 18 years. Exam: General: Well appearing, NAD CV/Resp: Breathing comfortably, Neurologic: Awake and alert MSK: LLE Dressings c/d/i Insensate about the lower leg/foot Wiggles toes WWP distally ARNOLD TAYLOR MD Pager: [phone] 09/07/2019 Associated attestation - Garth Cochran MD [...] appetite good, concerns are c entered around intermission coordinator places, specifically timeline of rehab and wound healing, as well a s what recovery will look like if he were to get a BKA. Reassured that no decisions need to be made now, can involve case management Sunday to look at SNFs. He has been to [facility] in [place] previously. Physical Examination: Last 24 hour min/max [...] BLED 4. Former discussion s with his distiller decided against anticoagulation; on 81 mg aspirin daily (used to be 325 but reduced to 81 2/2 "GI problems"). - held asa in s/o surgery, restart - continue digoxin - goal resting rate <110 # bilateral lower extremity swelling Unclear etiology. Was seeing distiller who is prescribing torsemide 10 mg daily [...] Primary Surrogate Decision Maker Josué An son [phone] This patient was staffed with Dr. Huerta, who agrees with the assessment and plan. Gauri Strickland MD Internal Medicine [id number] signed by Tiffanie Huerta MD at 09/07/2019 [...] in team note. - [facility] in [place] would be a reasonable SNF for him [...] seco nds Aidan Antonio MD Orthopedic Surgery [id number] 7:37 AM 09/06/2019 Gauri Walsh MD - [...] DM); HAS BLED 4. Former discussions with [facility] distiller decided against anticoagulation; on 81 mg aspirin daily (used to be 325 but r educed to 81 2/ "GI problems"). - hold asa in s/o surgery - continue digoxin - goal resting rate <110 # bilateral lower extremity swelling Unclear etiology. Was seeing distiller who is prescribing torsemide 10 mg daily [...] Primary Surrogate Decision Maker Josué An son [phone] This patient was staffed with Dr. Huerta, who agrees with the assessment and plan. Gauri Strickland MD Internal Medicine [id number] signed by Tiffanie Huerta MD at 09/06/2019 [...] Orthopaedic Attending: Monty An 1950 69 y.o. [id number] 09/05/2019 09/03/2019 2 Olivier Ansari MD Diagnosis(es): [...] to make a follow up appointment in [facility] 2 weeks with ORTHO TRAUMA & [...] es pink and warm. Noel Baptiste MD [facility] [place] Department of Orthopaedics & Rehabilitation [address] [facility] Mail Code: OP31 [place] [address] Associated attestation - Olivier Ansari MD - [...] DM); HAS BLED 4. Former discussions with [facility] distiller decided against anticoagulation; on 81 mg aspirin daily (used to be 325 but r educed to 81 2/2 "GI problems"). - hold asa in s/o surgery - continue digoxin - goal resting rate <110 # bilateral lower extremity swelling Unclear etiology. Was seeing distiller who is prescribing torsemide 10 mg daily [...] Primary Surrogate Decision Maker Josué An son [phone] This patient was staffed with Dr. Huerta, who agrees with the assessment and plan. Gauri Strickland MD Internal Medicine [id number] signed by Tiffanie Huerta MD at 09/06/2019 [...] BLED 4 . Former discussions with his distiller decided against anticoagulation; on 81 mg aspirin daily (used to be 325 but reduced to 81 2/2 "GI problems"). - hold asa in s/o surgery - continue digoxin - goal resting rate <110 # bilateral lower extremity swelling Unclear etiology. Was seeing distiller who is prescribing torsemide 10 mg daily [...] Primary Surrogate Decision Maker Josué nA son [phone] This patient was staffed with Dr. Huerta, [...] care at facility where he lives in [facility], was discharged to home I called and spoke with night RN at [facility] He discharged home yesterday from facility They had noted exposed hardware last week, cultured wound which has not grown and started o n PO levofloxacin 500mg daily and augmentin on 09/02 He was seen by Dr Castellano at [facility] who requested transfer to [facility] for orthopedic eval From last cardiology [...] within 24 hours. Please refer to excellent software engineer intern H&P for full problem based plan. ILIR SPIVEY MD Internal Medicine, PGY-3 Pager: [phone] documented in this encou nter Plan of [...] | + + + + + | [facility] | [address] | [place] [address] | | | SERVICES, CORE | DWIGHT [...] | | | | | | FellowMarrosa Dela MD, | | | | | | PhD - | | | | | | HematopathologistPatholo | | | | | | gy, [facility] | | | | | | [facility] | | | | | | [...] | + + + + + | [facility] | [address] | [place] [address] | | | PATHOLOGY | [address] [...] | + + + + + | [facility] | [address] | [place] [address] | | | FERMÍN ZABALA | DWIGHT [...] | + + + + + | [facility] | [address] | [facility] [place] [address] | | | FERMÍN ZABALA | DWIGHT [...] | | | LABORATORY | | | BANGLADESHI | | | SERVICES, | | | [...] | + + + + + | [facility] | [address] | [place] [address] | | | VJ, FERMÍN | DWIGHT [...] | + + + + + | [facility] | [address] | [place] [address] | | | SERVICES, CORE | DWIGHT [...] | + + + + + | [facility] | [address] | [place] [address] | | | SERVICES, CORE | PARK [...] 1.03 | 0.90 - 1.20 INR | INSU | | | | | | LABORATORY [...] | + + + + + | [facility] | [address] | [place] [address] | | | SERVICES, CORE | DWIGHT [...] [facility] | [address] | [place] [address] | | | SERVICES, CORE | PARK [...] [facility] | [address] | [place] [address] | | | VJ, FERMÍN | DWIGHT [...] | | | LABORATORY | | | BANGLADESHI | | | SERVICES, | | | [...] | + + + + + | [facility] | [address] | [place] [address] | | | SERVICES, CORE | DWIGHT [...] [facility] | [address] | [place] [address] | | | SERVICES, CORE | PARK [...] | | | LABORATORY | | | BANGLADESHI | | | SERVICES, | | | [...] MDRD equation recommended by the National | [facility] | | Kidney Disease Education Program. [...] | + + + + + | [facility] | [address] | [place] [address] | | | SERVICES, [facility] | [address] | | | + + + + + X-RAY PORTABLE CHEST PICC LINE CHECK (09/09/2019 7:29 PM PDT) + + | Specimen | + + | | + + + + + | Narrative | Performed At | + + + | EXAM: PA CHEST PICC LINE CHECK HISTORY: Verify Catheter [...] Interface - 09/09/2019 8:46 PM PDT EXAM: PA CHEST | | PICC LINE CHECK HISTORY: [...] At | + + + | EXAM: PA CHEST 1 VIEW HISTORY: PICC placement COMPARISON: [...] Interface - 09/09/2019 4:46 PM PDT EXAM: PA CHEST 1 | | VIEW HISTORY: PICC [...] Diagnosis: Cellulitis LE Procedure location: Unit: Room: [facility] | | | Providers: Attending name: [...] correct patient, | | | procedure, equipment, logistics support and site/side marked as | | | [...] vein. Catheter lot number: | | | [id number] with a length of 55 cm was [...] [facility] | [address] | [place] [address] | | | SERVICES, CORE | PARK [...] [facility] | [address] | [place] [address] | | | SERVICES, CORE | PARK [...] | + + + + + | [facility] | [address] | [place] [address] | | | VJ, FERMÍN | DWIGHT [...] | + + + + + | [facility] | [address] | [place] [address] | | | SERVICES, CORE | DWIGHT [...] LABORATORY | [address] | [place] [address] | | | SERVICES, CORE | PARK [...] | | | LABORATORY | | | BANGLADESHI | | | SERVICES, | | | [...] | + + + + + | [facility] | [address] | [place] [address] | | | SERVICES, FERMÍN | PARK [...] | + + + + + | [facility] | [address] | [place] [address] | | | VJ, FERMÍN | PARK [...] [facility] | [address] | [place], [place] | | | [facility] | [address] | [address] | | | TESTS | | | [...] | + + + + + | [facility] | [address] | [place] [address] | | | VJ, FERMÍN | DWIGHT [...] | | | LABORATORY | | | BANGLADESHI | | | SERVICES, | | | [...] | + + + + + | [facility] | [address] | [place] [address] | | | SERVICES, CORE | DWIGHT [...] [facility] | [address] | [place] [address] | | | SERVICES, | [address] [...] [facility] | [address] | [place] [address] | | | SERVICES, | [address] [...] Note | + + | Service Account, Inside Social Res In Interface - 09/05/2019 4:56 PM [...] | | + +---------+ + + | [facility] | | | | | [facility] | | | | + +---------+ [...] | + + + + + | [facility] | [address] | [place] [address] | | | SERVICES, CORE | PARK [...] [facility] | [address] | [place] [address] | | | SERVICES CORE | DWIGHT [...] [facility]PT [facility] | [address] | [place], [place] | | | CARDIOLOGY | [address] | [address] | | + + + + + [...] [facility] | [address] | [place], [place] | | | [facility] | [address] | [address] | | | TESTS | | | [...] | | | | (A) | | [facility] | | + + + + + [...] for complete identification and susceptibilities | [facility] | | Enterococcus faecalis Unable to continue [...] + | [facility] | [address] | [place] [address] | | | [place] | | | | + + + [...] | + + + + + | [facility] | [address] | [place] [address] | | | [place] | | | | + + + [...] B for complete identification and susceptibilities | [place] | | Enterococcus faecalis Refer to culture [...] + | [facility] | [address] | [place] [address] | | | [place] | | | [...] squamous epithelial cells Rare polymorphonuclear cells | [facility] | | No organisms seen | | [...] + | [facility] | [address] | [place] [address] | | | [place] | | | [...] + | [facility] | [address] | [place] [address] | | | [place] | | | [...] [facility] | [address] | [place] [address] | | | SERVICES, CORE | DWIGHT [...] | + + + + + | [facility] | [address] | [place] [address] | | | SERVICES, CORE | PARK [...] | | | LABORATORY | | | BANGLADESHI | | | SERVICES, | | | [...] | + + + + + | [facility] | [address] | [place] [address] | | | FERMÍN ZABALA | PARK [...] [facility] | [address] | [place] [address] | | | SERVICES, CORE | PARK [...] | + + + + + | [facility] | [address] | [place] [address] | | | FERMÍN ZABALA | DWIGHT [...] | [facility] | | considered for monitoring group home glycemic control in patients with: | LABORATORY [...] | + + + + + | [facility] | [address] | [place] [address] | | | VJ, SPECIAL | DWIGHT [...] - | | | | | | [place] | | + +---------+ + + + + + | Specimen | + + | Blood - Blood | | (substance) | + + + + + + + | Performing | Address | City/State/Zipcode | Phone Number | | Organization | | | | + + + + + | [facility] | [address] | [place] [address] | | | [place] | | | [...] | + + + + + | [facility] | [address] | [place] [address] | | | SERVICES, CORE | PARK [...] | + + + + + | [facility] | [address] | [place] [address] | | | FERMÍN ZABALA | DWIGHT [...] | + + + + + | [facility] | [address] | [place] [address] | | | SERVICES, CORE | PARK [...] | + + + + + | [facility] | [address] | [place] [address] | | | SERVICES, CORE | DWIGHT [...] [facility] | [address] | [place], [place] | | | [facility] | [facility] | [address] | | | TESTS | | | [...] | + + + + + | [facility] | [address] | [place] [address] | | | SERVICES, CORE | [address] | | | + + + + + ETHANOL (ALCOHOL), BLOOD (09/03/2019 7:24 PM PDT) + +-------+ + + + | Component | Value | Ref Range | Performed | Pathologist | | | | | At | Signature | + +-------+ + + + | ETHANOL | <10 | <10 mg/dL | [facility] | | | (ALCOHOL) | | | [...] | + + + + + | [facility] | [address] | [place] [address] | | | SERVICES, FERMÍN | DWIGHT [...] | + + + + + | [facility] | [address] | [place] [address] | | | SERVICES, CORE | DWIGHT [...] [facility] | [address] | [place] [address] | | | SERVICES, CORE | PARK [...] | | | LABORATORY | | | BANGLADESHI | | | SERVICES, | | | [...] MDRD equation recommended by the National | [facility] | | Kidney Disease Education Program. Estimated [...] | + + + + + | [facility] | [address] | [place] [address] | | | SERVICES, CORE | DWIGHT [...] [facility] | [address] | [place] [address] | | | SERVICES, | [address] [...] | + + + + + | [facility] | [address] | [place] [address] | | | SERVICES, CORE | DWIGHT [...] [facility] | [address] | [place] [address] | | | SERVICES, CORE | PARK [...] | + + + + + | [facility] | [address] | [place] [address] | | | SERVICES, CORE | DWIGHT [...] | | | | | NEEDED, Starting [facility] 09/04/19 at | | 19 4:05 [...] | | | | First dose on [facility] 09/04/19 at | | AM PST | [...] PDT | | | | | Starting [facility] 09/04/19 at 1845, | | | | | | | Until [facility] 09/17/19 at 1808, | | | | [...] | | | | | NEEDED, Starting [facility] 09/04/19 at | | | | | [...]
--- OUTSIDE RECORDS SUMMARY | ~2020-06-01 | XMS | Encounter Summary ---
Demographics + + + | Address | [address] | | | [place] [address] | + + + | Home Phone | | + + + | Preferred Language | Unknown | + + + | Marital Status | Single | + + + | Presybeterian Affiliation | NRP | + + + | Race | White | + + + | Ethnic Group | Not or | + + + Author + + + | Author | [facility] | + + + | Organization | [facility] | + + + | Address | [...] Team Providers + +------+ + | Care Sample Patternmaker Name | Role | Phone | + +------+ + | Dustin Perez MD | PCP | | + +------+ + Reason for Visit + + + | Reason | Comments | + + + | RN Care Management | opat | + + + | Infectious disease | | + + + | Transfer of Care | | + + + Encounter Details +--------+ + + + + | Date | Type | Department | Care Team | Description | +--------+ + + + + | 09/18/ | Documentati | Infectious | Caroline Hale, | RN Care Management | | 2019 | on | Diseases at [facility] | RN [address] | (opat); Infectious | | | | [address] | [facility] | disease; Transfer of | | | | [facility] | [place], [place] | Care | | | | [address] | [address] | | | | | [place], [place] | [phone] | | | | | [address] | | | | | | [phone] | | | +--------+ + + + [...]
--- OUTSIDE RECORDS SUMMARY | ~2020-06-01 | XMS | Encounter Summary ---
Demographics + + + | Address | [address] | | | [place] [address] | + + + | Home Phone | | + + + | Preferred Language | Unknown | + + + | Marital Status | Single | + + + | Sabianist Affiliation | NRP | + + + | Race | White | + + + | Ethnic Group | Not or | + + + Author + + + | Author | [facility] | + + + | Organization | [facility] | + + + | Address [...] Team Providers + +------+ + | Care Spinning Operator Name | Role | Phone | [...] | | [address] | [address] | LEFT ANKLE | | | | Rd [facility] | Bk Maya | | | | | Hospital Admitting | [place], [place] | | | | | Desk Located on the | [address] | | | | | 9th floor | [phone] | | | | | [place], [place] | | | | | | [address] | | | +--------+---------+ + + + [...] Lockwood MD - 09/17/2019 12:07 PM PST [facility] Discharge Summary Discharging Provider: Johnathan Lockwood MD Discharging Attending Physician: To Henriquez MD PCP: Rio Huerta MD Admission Date: 09/03/2019 Discharge Date: 09/17/2019 Hospital Stay: 14 day(s) Discharge Location: [facility] [place] . [phone] [facility] FOLLOW UP NEEDS: 1) Infectious Disease, [facility], [place], ~10/08/2019 2) Orthopedi cs, [facility] in the Dr. Nella Parry ~10/20 Principal [...] hindfoot. 5. Placement of an external tissue plant controller, area other than breast. 6. Placement of [...] vancomycin trough levels - ID F/U in [place], ~10/08 timeframe - Wound check and suture removal by 09/26/2019; OK for SNF to remove sutures - Ortho F/U ~10/21 timeframe w/ Dr. Carmen in [facility] - Activity restrictions: LLE: NWB, [...] BLED 4. Former discussion s with his partnership marketing manager decided against anticoagulation; on 81 mg aspirin [...] follow/manage patient "I certify that post-hospital inpatient care home facility care is medically necessar y on a continuing basis for treatment of the same condition for which inpatient acute hospit al care was received." JOHNATHAN LOCKWOOD MD Discharge Destination - Selection Complete Service Provider Request Status Selected Services Address Phone Number Fax Number Hellen Delongowbrook Rajinder Selected [facility]-Way [address], [place] [address] Home Care Medical No service has been [...] Why: For wound re-check Contact information [address] [place] [phone] RIO HUERTA MD. Go on 09/24/2019. Specialty: Family Medicine Why: Appt: Tuesday, September 24, 2019 @ 08:40am. Address: [address] [place] [address], [address], [place] Contact information [facility] [place] [address] Surya Coffman MD. Go on 09/30/2019. Why: Appt: Monday, September 30, 2019 @ 09:45am Contact information [address] [place] [phone] Contact information for after-discharge care [facility] . Service: [facility] Contact information [address] [place] [id number] Discharge Physical Exam: Last 24 hour min/max [...] PGY - 3 | Internal Medicine | [id number] [facility] [employer] Associated attestation - To Henriquez MD - [...] Primary Surrogate Decision Maker Josué An son [phone] TO HENRIQUEZ MD [address] industrial roof plumber Division of Hospital Medicine Department of Medicine [address] [place] [phone] documented in this encounter Discharge Instructions Discharge [...] follow/manage patient "I certify that post-hospital inpatient care home facility care is medically necessar y [...] | | | | | with hardware ([facility]) | | | | | [...] (per patient w ++ 1st degree FH) Cosmetic Sales re: skin/foot care (a la DM) 10) Alcohol use disorder, mild, in sustained remission, abuse 11) Encounter for long-term (current) use of antibiotics SURROGATE DECISION MAKER Surrogate Decision Maker Primary Surrogate Decision Maker Josué An son [phone] TO HENRIQUEZ MD [address] industrial roof plumber Division of Hospital Medicine Department of Medicine [facility] & [address] 12/[facility] [place] [address] Amber Wan MD - 1 11/16/2018 7:13 [...] care, follow up recs - follow up: [facility] ID faculty with preference to schedule with [...] BLED 4. Former discussion s with his partnership marketing manager decided against anticoagulation; on 81 mg aspirin daily (used to be 325 but reduced to 81 2/2 "GI problems"). - held asa in s/o surgery, has been restarted - continue digoxin - goal resting rate <110 # bilateral lower extremity swelling Unclear etiology. Was seeing partnership marketing manager who is prescribing torsemide 10 mg daily [...] Dispo: patient ready to discharge tomorrow to [facility] in [place]. Code Status: Full Code Surrogate Decision Maker Primary Surrogate Decision Maker Josué An son [phone] This patient was staffed with Dr. To [...] there are not currnet signs of decompensation Cosmetic Sales on his 'near miss' and importance of good 'liver care' in future 9) Neuropathy, hereditary sensory (per patient w ++ 1st degree FH) Not noted in 'history' but with suggestion of pes cavus, and ++ family history it does r aise the qn of Kmqknlq-Rvbys-Neoui Could have been contributor to osteo Cosmetic Sales re: skin/foot care (a la DM) 10) Alcohol use disorder, mild, in sustained remission, abuse 11) Encounter for long-term (current) use of antibiotics SURROGATE DECISION MAKER Surrogate Decision Maker Primary Surrogate Decision Maker Josué An son [phone] TO HENRIQUEZ MD [address] industrial roof plumber Division of [facility] Medicine Department of Medicine [facility] & [address] [place] [address] Amber Wan MD - 1 11/15/2018 6:26 [...] care, follow up recs - follow up: [facility] ID faculty with preference to schedule with [...] BLED 4. Former discussion s with his partnership marketing manager decided against anticoagulation; on 81 mg aspirin daily (used to be 325 but reduced to 81 2/2 "GI problems"). - held asa in s/o surgery, has been restarted - continue digoxin - goal resting rate <110 # bilateral lower extremity swelling Unclear etiology. Was seeing partnership marketing manager who is prescribing torsemide 10 mg daily [...] used majority of his medicare SNF days, high risk case manager working to determine whethe r paying out of pocket is an option vs investigate other dispo options. Code Status: Full Code Surrogate Decision Maker Primary Surrogate Decision Maker Josué An son [phone] This patient was staffed with Dr. To [...] care, follow up recs - follow up: [facility] ID faculty with preference to schedule with [...] BLED 4. Former discussion s with his partnership marketing manager decided against anticoagulation; on 81 mg aspirin daily (used to be 325 but reduced to 81 2/2 "GI problems"). - held asa in s/o surgery, has been restarted - continue digoxin - goal resting rate <110 # bilateral lower extremity swelling Unclear etiology. Was seeing partnership marketing manager who is prescribing torsemide 10 mg daily [...] used majority of his medicare SNF days, high risk case manager working to determine whethe r paying out of pocket is an option vs investigate other dispo options. Code Status: Full Code Surrogate Decision Maker Primary Surrogate Decision Maker Josué An son [phone] This patient was staffed with Dr. To [...] stenosis or insuff iciency: [facility]) 7) Essential hypertension 8) "Cirrhosis, Laennec's" (HCC) [...] it does r aise the qn of Hecqkau-Yoqbc-Drhlk Could have been contributor to osteo Cosmetic Sales re: skin/foot care (a la DM) 10) Alcohol use disorder, mild, in sustained remission, abuse 11) Encounter for long-term (current) use of antibiotics SURROGATE DECISION MAKER Surrogate Decision Maker Primary Surrogate Decision Maker Josué An son [phone] TO HENRIQUEZ MD [address] industrial roof plumber Division of Hospital Medicine Department of Medicine [address] [address] o zuluaga MD - 09/13 12:33 PM [...] stenosis or insuff iciency: Aug 26, 2018: [facility]) 7) Essential hypertension 8) "Cirrhosis, [...] it does r aise the qn of Ldjxgen-Dkhwe-Jnddv Could have been contributor to osteo Cosmetic Sales re: skin/foot care (a la DM) 10) Alcohol use disorder, mild, in sustained remission, abuse 11) Encounter for long-term (current) use of antibiotics SURROGATE DECISION MAKER Surrogate Decision Maker Primary Surrogate Decision Maker Josué An son [phone] TO HENRIQUEZ MD [address] industrial roof plumber Division of Hospital Medicine Department of Medicine [address] [place] [address] ateJohnathan victor MD - 12/2018 11:07 AM [...] care, follow up recs - follow up: [facility] ID faculty with preference to schedule with [...] BLED 4. Former discussion s with his partnership marketing manager decided against anticoagulation; on 81 mg aspirin daily (used to be 325 but reduced to 81 2/2 "GI problems"). - held asa in s/o surgery, has been restarted - continue digoxin - goal resting rate <110 # bilateral lower extremity swelling Unclear etiology. Was seeing partnership marketing manager who is prescribing torsemide 10 mg daily [...] used majority of his medicare SNF days, high risk case manager working to determine whethe r paying out of pocket is an option vs investigate other dispo options. Code Status: Full Code Surrogate Decision Maker Primary Surrogate Decision Maker Josué An son [phone] This patient was staffed with Dr. To Henriquez, who agrees with the assessment and plan unle ss otherwise stated. Johnathan Lockwood MD PGY - 3 | Internal Medicine | [id number] [facility] [employer] To Mendez MD - 11/2018 8:01 AM [...] stenosis or insuff iciency: Aug 26, 2018: [facility]) 7) Essential hypertension 8) "Cirrhosis, [...] it does r aise the qn of Mrnassy-Iqzux-Pcpzy Could have been contributor to osteo Cosmetic Sales re: skin/foot care (a la DM) 10) Alcohol use disorder, mild, in sustained remission, abuse 11) Encounter for long-term (current) use of antibiotics SURROGATE DECISION MAKER Surrogate Decision Maker Primary Surrogate Decision Maker Josué An son [phone] I spent ~40 minutes in the care of this patient. Greater than 50% of the time was spent co unseling and coordination of care, including visit x 3; extensive chart review (on [place]) TO HENRIQUEZ MD [address] industrial roof plumber Division of Hospital Medicine Department of Medicine [address] [place] [address] auri Strickland MD - 09/12/2019 7:07 AM [...] care, follow up recs - follow up: [facility] ID faculty with preference to schedule with [...] BLED 4. Former discussion s with his partnership marketing manager decided against anticoagulation; on 81 mg aspirin daily (used to be 325 but reduced to 81 2/2 "GI problems"). - held asa in s/o surgery, has been restarted - continue digoxin - goal resting rate <110 # bilateral lower extremity swelling Unclear etiology. Was seeing partnership marketing manager who is prescribing torsemide 10 mg daily [...] used 90/100 of his medicare SNF days, high risk case manager working to determine whether paying out of pocket is an option vs investigate other dispo options. Code Status: Full Code Surrogate Decision Maker Primary Surrogate Decision Maker Josué An son [phone] This patient was staffed with Dr. To Henriquez, who agrees with the assessment and plan unle ss otherwise stated. Gauri Strickland MD Internal Medicine [id number] signed by To Henriquez MD at 09/12/2019 [...] care, follow up recs - follow up: [facility] ID faculty with preference to schedule with [...] BLED 4. Former discussion s with his partnership marketing manager decided against anticoagulation; on 81 mg aspirin daily (used to be 325 but reduced to 81 2/2 "GI problems"). - held asa in s/o surgery, has been restarted - continue digoxin - goal resting rate <110 # bilateral lower extremity swelling Unclear etiology. Was seeing partnership marketing manager who is prescribing torsemide 10 mg daily [...] used 90/100 of his medicare SNF days, high risk case manager working to determine whether paying out of pocket is an option vs investigate other dispo options. Code Status: Full Code Surrogate Decision Maker Primary Surrogate Decision Maker Josué An son [phone] This patient was staffed with Dr. Huerta, [...] eager to contin ue conversation with his high risk case manager about discharge planning. Physical Examination: [...] care, follow up recs - follow up: [facility] ID faculty with preference to schedule with [...] BLED 4. Former discussion s with his partnership marketing manager decided against anticoagulation; on 81 mg aspirin daily (used to be 325 but reduced to 81 2/2 "GI problems"). - held asa in s/o surgery, has been restarted - continue digoxin - goal resting rate <110 # bilateral lower extremity swelling Unclear etiology. Was seeing partnership marketing manager who is prescribing torsemide 10 mg daily [...] used 90/100 of his medicare SNF days, high risk case manager working to determine whether paying out of pocket is an option vs investigate other dispo options. Code Status: Full Code Surrogate Decision Maker Primary Surrogate Decision Maker Josué An son [phone] This patient was staffed with Dr. Huerta, who agrees with the assessment and plan unless otherwise stated. Gauri Strickland MD Internal Medicine [id number] signed by Tiffanie Huerta MD at 09/10/2019 [...] has not been an issue. Enjoys working [facility] physical therapy. Denies dyspnea, nausea, abdominal pain, constipation. Fine with getting PICC line and understands need for intermediate IV antibiotics. Physical Examination: Last 24 hour [...] care, follow up recs - follow up: [facility] ID faculty with preference to schedule with [...] BLED 4. Former discussion s with his partnership marketing manager decided against anticoagulation; on 81 mg aspirin daily (used to be 325 but reduced to 81 2/2 "GI problems"). - held asa in s/o surgery, has been restarted - continue digoxin - goal resting rate <110 # bilateral lower extremity swelling Unclear etiology. Was seeing partnership marketing manager who is prescribing torsemide 10 mg daily [...] Primary Surrogate Decision Maker Josué An son [phone] This patient was staffed with Dr. Huerta, who agrees with the assessment and plan unless otherwise stated. Gauri Strickland MD Internal Medicine [id number] signed by Tiffanie Huerta MD at 09/10/2019 [...] hindfoot. 5. Placement of an external tissue plant controller, area other than breast. 6. Placement of [...] vancomycin, until further notice, ID consult for intermediate plan 5. Special Concerns: case managment for discharge planning, likely discharge to SNF in [facility] Wound Care consulted 6. Dressings/Drains: DRESSING CARE [...] ok to discharge from ortho perspective o ale OPAT plan and dispo arrangements have been [...] 2 seconds Aidan Antonio MD Orthopedic Surgery [id number] 11:15 AM Cory Shaikh MD - 09/09/2019 [...] the plan as listed. Cory Carmen MD [facility] [address] [place] [address] Cory Carmen Gauri Walsh MD - 09/08/2019 7:27 AM PDT General Internal Medicine 3 Progress Note 24 Hour Events: Pharmacy completed med rec via SNF MAR records per pharm: "Torsemide, potassium chloride, A SA, MVI, vitamin B12, and thiamine were added to GLASS CUT OFF SUPERVISOR medication list. Of note, patient has n [...] BLED 4. Former discussion s with his partnership marketing manager decided against anticoagulation; on 81 mg aspirin daily (used to be 325 but reduced to 81 2/2 "GI problems"). - held asa in s/o surgery, has been restarted - continue digoxin - goal resting rate <110 # bilateral lower extremity swelling Unclear etiology. Was seeing partnership marketing manager who is prescribing torsemide 10 mg daily [...] Primary Surrogate Decision Maker Josué An son [phone] This patient was staffed with Dr. Huerta, who agrees with the assessment and plan unless otherwise stated. Gauri Strickland MD Internal Medicine [id number] signed by Tiffanie Huerta MD at 09/08/2019 [...] present. - he has been comfortable at [facility] assisted [facility] with aggressive PT in the past [facility] is close to [place], his home. Deepthi Collazo AGACNP - 09/08/2019 [...] hindfoot. 5. Placement of an external tissue plant controller, area other than breast. 6. Placement of [...] vancomycin, until further notice, ID consult for long term care pharmacist plan 5. Special Concerns: case managment for discharge planning, likely discharge to SNF in [facility] Wound Care consulted 6. Dressings/Drains: DRESSING CARE [...] ok to discharge from ortho perspective o ale OPAT plan and dispo arrangements have been [...] Intake/Output Summary (Last 24 hours) at 09/08/2019 0653 Last data filed at 09/08/2019 0645 Gross [...] capillary refill < 2 seconds Deepthi Collazo, [facility] Orthopaedic Trauma Surgery Pager [phone] Associated attestation - Cory Carmen MD - [...] input. I will be following this patient intermediate, rather than Dr stafford or Elan. I discussed the diagnosis, imaging studies, treatment plan and prognosis with the patient and resident. I have reviewed and the above note and agree with the plan. Please do not he sitate to call me for questions. Cory Carmen MD [facility] [address]A [address] [facility] [address] [place] [address] Arnold Taylor MD - 09/07/2019 6:22 PM PDTFormatting of this note might be differ ent from the original. Orthopaedic Surgery Progress Note Patient: /Age: MRN: CSN: Date: Admission Date: Hospital Day: Attending Physician: Monty An 1950 69 y.o. [id number] 09/07/2019 09/03/2019 4 Garth Stafford MD Procedure(s) [...] SpO2 98%, BMI 27.94 kg/(m^2). Facility age [facility] percentiles is 18 years. Exam: General: Well appearing, NAD CV/Resp: Breathing comfortably, Neurologic: Awake and alert MSK: LLE Dressings c/d/i Insensate about the lower leg/foot Wiggles toes WWP distally ARNOLD TAYLOR MD Pager: [phone] 09/07/2019 Associated attestation - Garth Stafford MD [...] appetite good, concerns are c entered around long term care pharmacist places, specifically timeline of rehab and wound healing, as well a s what recovery will look like if he were to get a BKA. Reassured that no decisions need to be made now, can involve case management Sunday to look at SNFs. He has been to [facility] in [place] previously. Physical Examination: Last 24 hour min/max [...] BLED 4. Former discussion s with his partnership marketing manager decided against anticoagulation; on 81 mg aspirin daily (used to be 325 but reduced to 81 2/2 "GI problems"). - held asa in s/o surgery, restart - continue digoxin - goal resting rate <110 # bilateral lower extremity swelling Unclear etiology. Was seeing partnership marketing manager who is prescribing torsemide 10 mg daily [...] Primary Surrogate Decision Maker Josué An son [phone] This patient was staffed with Dr. Huerta, who agrees with the assessment and plan. Gauri Strickland MD Internal Medicine [id number] signed by Tiffanie Huerta MD at 09/07/2019 [...] in team note. - [facility] in [place] would be a reasonable SNF for him [...] seco nds Aidan Antonio MD Orthopedic Surgery [id number] 7:37 AM 09/06/2019 Gauri Walsh MD - [...] DM); HAS BLED 4. Former discussions with [facility] partnership marketing manager decided against anticoagulation; on 81 mg aspirin daily (used to be 325 but r educed to 81 2/2 "GI problems"). - hold asa in s/o surgery - continue digoxin - goal resting rate <110 # bilateral lower extremity swelling Unclear etiology. Was seeing partnership marketing manager who is prescribing torsemide 10 mg daily [...] Primary Surrogate Decision Maker Josué An son [phone] This patient was staffed with Dr. Huerta, who agrees with the assessment and plan. Gauri Strickland MD Internal Medicine [id number] signed by Tiffanie Huerta MD at 09/06/2019 [...] Orthopaedic Attending: Monty An 1950 69 y.o. [id number] 09/05/2019 09/03/2019 2 Olivier Ansari MD Diagnosis(es): [...] to make a follow up appointment in [facility] 2 weeks with ORTHO TRAUMA & [...] es pink and warm. Noel Baptiste MD [facility] [employer] Department of Orthopaedics & Rehabilitation [address] [place] [address] Mail Code: OP31 [facility] [id number] Associated attestation - Olivier Ansari MD - [...] DM); HAS BLED 4. Former discussions with [facility] partnership marketing manager decided against anticoagulation; on 81 mg aspirin daily (used to be 325 but r educed to 81 2/2 "GI problems"). - hold asa in s/o surgery - continue digoxin - goal resting rate <110 # bilateral lower extremity swelling Unclear etiology. Was seeing partnership marketing manager who is prescribing torsemide 10 mg daily [...] Primary Surrogate Decision Maker Josué An son [phone] This patient was staffed with Dr. Huerta, who agrees with the assessment and plan. Gauri Strickland MD Internal Medicine [id number] signed by Tiffanie Huerta MD at 09/06/2019 [...] BLED 4 . Former discussions with his partnership marketing manager decided against anticoagulation; on 81 mg aspirin daily (used to be 325 but reduced to 81 2/2 "GI problems"). - hold asa in s/o surgery - continue digoxin - goal resting rate <110 # bilateral lower extremity swelling Unclear etiology. Was seeing partnership marketing manager who is prescribing torsemide 10 mg daily [...] Primary Surrogate Decision Maker Josué An son [phone] This patient was staffed with Dr. Huerta, [...] care at facility where he lives in [facility], was discharged to home I called and spoke with night RN at [facility] He discharged home yesterday from facility They had noted exposed hardware last week, cultured wound which has not grown and started o n PO levofloxacin 500mg daily and augmentin on 09/02 He was seen by Dr Castellano at [facility] who requested transfer to [facility] for orthopedic eval From last cardiology note [...] within 24 hours. Please refer to excellent help desk intern H&P for full problem based plan. ILIR SPIVEY MD Internal Medicine, PGY-3 Pager: [phone] documented in this encou nter Plan of [...] + + | [facility] | [address] | [place] [address] | | | SERVICES, CORE | PARK [...] Hematopathology | | | | | | [facility] Toyin CHANDLER, | | | | | | PhD - | | | | | | HematopathologistPatholo | | | | | | gy, [facility] & | | | | | | [facility] | | | | | [...] | + + + + + | [facility] | [address] | [place] [address] | | | PATHOLOGY | [address] [...] | + + + + + | [facility] | [address] | [place] [address] | | | SERVICES, CORE | PARK [...] | + + + + + | [facility] | [address] | [place] [address] | | | SERVICES, CORE | DWIGHT [...] | | | LABORATORY | | | UKRAINIAN | | | SERVICES, | | | [...] | + + + + + | [facility] | [address] | [place] [address] | | | FERMÍN ZABALA | PARK [...] | + + + + + | [facility] | [address] | [place] [address] | | | SERVICES, CORE | DWIGHT [...] | + + + + + | [facility] | [address] | [place] [address] | | | VJ, FERMÍN | PARK [...] | + + + + + | [facility] | [address] | [place] [address] | | | SERVICES, CORE | DWIGHT [...] [facility] | [address] | [place] [address] | | | SERVICES, CORE | PARK [...] | + + + + + | [facility] | [address] | [place] [address] | | | VJ, CORE | DWIGHT [...] | | | LABORATORY | | | UKRAINIAN | | | SERVICES, | | | [...] | + + + + + | [facility] My Visual Brief | [address] | [place] [address] | | | SERVICES, CORE | DWIGHT [...] | + + + + + | [facility] | [address] | [place] [address] | | | SERVICES, CORE | DWIGHT [...] | | | LABORATORY | | | UKRAINIAN | | | SERVICES, | | | [...] MDRD equation recommended by the National | [facility] | | Kidney Disease Education Program. Estimated [...] | + + + + + | [facility] | [address] | [place] [address] | | | SERVICES, CORE | [address] | | | + + + + + X-RAY PORTABLE CHEST PICC LINE CHECK (09/09/2019 7:29 PM PDT) + + | Specimen | + + | | + + + + + | Narrative | Performed At | + + + | EXAM: NE CHEST PICC LINE CHECK HISTORY: Verify Catheter [...] Interface - 09/09/2019 8:46 PM PDT EXAM: NE CHEST | | PICC LINE CHECK HISTORY: [...] At | + + + | EXAM: NE CHEST 1 VIEW HISTORY: PICC placement COMPARISON: [...] Interface - 09/09/2019 4:46 PM PDT EXAM: NE CHEST 1 | | VIEW HISTORY: PICC [...] Diagnosis: Cellulitis LE Procedure location: Unit: Room: [facility] | | | Providers: Attending name: Attending physically present: No PICC | | | Nurse name: Yenifer Barboza RN BSN VAT Assisted by Marty | | | Golden ROLLER MAN VAT Pre-Procedure Consent: written consent | | | obtained Consent given by: Patient Patient identity confirmed per | | | protocol: Yes Team Pause: Immediatly prior to the procedure a pause | | | per protocol was called. A pause verifies correct patient, | | | procedure, equipment, senior safety support manager and site/side marked as | | | [...] vein. Catheter lot number: | | | [id number] with a length of 55 cm was [...] [facility] | [address] | [place] [address] | | | SERVICES, CORE | PARK [...] | + + + + + | [facility] | [address] | [place] [address] | | | SERVICES, CORE | PARK [...] [facility] | [address] | [place] [address] | | | VJ, CORE | DWIGHT [...] | + + + + + | [facility] | [address] | [place] [address] | | | SERVICES, CORE | [address] | | | + + + + + X-RAY TIBIA & FIBULA 2 VIEWS LT (09/08/2019 1:56 PM PDT) + + | Specimen | + + | | + + + + + | Narrative | Performed At | + + + | EXAM: TIBIA AND FIBULA 2 VIEWS LT HISTORY: s/p Hardware Removal | [facility] | | COMPARISON: 09/03/2019 FINDINGS: There has [...] [facility] | [address] | [place] [address] | | | SERVICES, CORE | PARK [...] | | | LABORATORY | | | UKRAINIAN | | | SERVICES, | | | [...] MDRD equation recommended by the National | [facility] | | Kidney Disease Education Program. Estimated GFR Interpretive | LABORATORY | | Information: <60 mL/min/1.73 sq m Chronic Kidney | SERVICES, [facility] | | Disease <15 mL/min/1.73 sq m [...] | + + + + + | [facility] | [address] | [place] [address] | | | SERVICES, [facility] | [address] | | | + [...] | + + + + + | [facility] | [address] | [place] [address] | | | SERVICES, CORE | PARK [...] - [facility] | [address] | [place], [place] | | | LUISA RES[facility]E [facility] | [facility] | [address] | | | TESTS | | | [...] [facility] | [address] | [place] [address] | | | VJ, CORE | DWIGHT [...] | | | LABORATORY | | | UKRAINIAN | | | SERVICES, | | | [...] MDRD equation recommended by the National | [facility] | | Kidney Disease Education Program. Estimated [...] | + + + + + | [facility] | [address] | [place] [address] | | | SERVICES, CORE | DWIGHT [...] [facility] | [address] | [place] [address] | | | SERVICES, | [address] [...] [facility] | [address] | [place] [address] | | | SERVICES, | [address] [...] | + + + + + | [facility] My Visual Brief | [address] | [place] [address] | | | SERVICES, CORE | DWIGHT [...] | + + + + + | [facility] | [address] | [place] [address] | | | SERVICES, CORE | DWIGHT [...] DEPT OF | [address] | [place], [place] | | | CARDIOLOGY | [address] | [address] | | + + + + + [...] [facility] | [address] | [place], [place] | | | ALEX M[facility]AN [facility] | [facility] | [address] | | | TESTS | | | [...] B for complete identification and susceptibilities | [place] | | Enterococcus faecalis Unable to continue [...] | + + + + + | [facility] - AIRPORT - | [address] | [place] [address] | | | [place] | | | [...] + | [facility] - AIRPORT - | [address] | [place] [address] | | | [facility] | | | | + + [...] Refer to culture [facility]2019 at | [facility] | [facility], site B for complete identification and susceptibilities | [place] | | Enterococcus faecalis Refer to culture collected 09/04/2019 at [facility], | | | site E for susceptibilities [...] + | [facility] - AIRPORT - | [address] | [place] [address] | | | [place] | | | [...] squamous epithelial cells Rare polymorphonuclear cells | [facility] | | No organisms seen | [...] | + + + + + | [facility] - AIRPORT - | [address] | [place] [address] | | | [place] | | | [...] + | [facility] - AIRPORT - | [address] | [place] [address] | | | [place] | | | | + + + [...] | + + + + + | [facility] | [address] | [place] [address] | | | SERVICES, CORE | PARK [...] [facility] | [address] | [place] [address] | | | SERVICES, CORE | PARK [...] | | | LABORATORY | | | UKRAINIAN | | | SERVICES, | | | [...] MDRD equation recommended by the National | [facility] | | Kidney Disease Education Program. Estimated GFR Interpretive | LABORATORY | | Information: <60 mL/min/1.73 sq m Chronic Kidney | SERVICES, [facility] | | Disease <15 mL/min/1.73 sq m [...] | + + + + + | [facility] | [address] | [place] [address] | | | SERVICES, FERMÍN | DWIGHT [...] | + + + + + | [facility] | [address] | [place] [address] | | | SERVICES, CORE | PARK [...] | + + + + + | [facility] | [address] | [place] [address] | | | [facility], [facility] | [address] | | | + [...] | [facility] | | considered for monitoring long term care pharmacist glycemic control in patients with: | LABORATORY [...] | + + + + + | [facility] | [address] | [place] [address] | | | SERVICES, SPECIAL | PARK [...] + | [facility] - AIRPORT - | [address] | [place] [address] | | | [place] | | | [...] | + + + + + | [facility] | [address] | [place] [address] | | | SERVICES, CORE | DWIGHT [...] | + + + + + | [facility] | [address] | [place] [address] | | | SERVICES, CORE | DWIGHT [...] [facility] | [address] | [place] [address] | | | VJ, FERMÍN | PARK [...] | + + + + + | [facility] | [address] | [place] [address] | | | SERVICES, CORE | DWIGHT [...] [facility] | [address] | [place], [place] | | | ALEX MORAN OF [facility] | [facility] | [address] | | | TESTS | | | [...] [facility] | [address] | [place] [address] | | | SERVICES, CORE | [address] | | | + + + + + ETHANOL (ALCOHOL), BLOOD (09/03/2019 7:24 PM PDT) + +-------+ + + + | Component | Value | Ref Range | Performed | Pathologist | | | | | At | Signature | + +-------+ + + + | ETHANOL | <10 | <10 mg/dL | [facility] | | | (ALCOHOL) | | | [...] [facility] | [address] | [place] [address] | | | SERVICES, CORE | DWIGHT [...] [facility] | [address] | [place] [address] | | | SERVICES, CORE | PARK [...] [facility] | [address] | [place] [address] | | | SERVICES, CORE | PARK [...] | | | LABORATORY | | | UKRAINIAN | | | SERVICES, | | | [...] MDRD equation recommended by the National | [facility] | | Kidney Disease Education Program. Estimated [...] | + + + + + | [facility] | [address] | [place] [address] | | | SERVICES, CORE | DWIGHT [...] | department on 09/03/2019 8:30 PM by Mkaeda James MD : I have personally reviewed [...] [facility] | [address] | [place] [address] | | | SERVICES, | [address] [...] | + + + + + | [facility] | [address] | [place] [address] | | | SERVICES, CORE | PARK [...] | + + + + + | [facility] | [address] | [place] [address] | | | SERVICES, CORE | PARK [...] | + + + + + | [facility] | [address] | [place] [address] | | | SERVICES, CORE | DWIGHT [...] | | | | First dose on [facility] 09/04/19 at | | AM PST [...] | | | | | dose on [facility] 09/04/19 at 0900, | | AM [...]
--- OUTSIDE RECORDS SUMMARY | ~2020-06-01 | XMS | Encounter Summary ---
Demographics + + + | Address | [address] | | | [place] [address] | + + + | Home Phone | | + + + | Preferred Language | Unknown | + + + | Marital Status | Single | + + + | Zoroastrianism Affiliation | Unknown | + + + | Race | Unknown | + + + | Ethnic Group | Unknown | + + + Author + + + | Author | [facility] | | | and [place] | + + + | Organization | [facility] | | | [...] Team Providers + +------+ + | Care Leather Flesher Name | Role | Phone | + [...] + + | 10/01/ | Telephone | [facility] | Heather Russo | Other (care | | 2019 | | INFECTIOUS DISEASE | AZ[address]ira | coordination/lab | | | | [address] | | orders) | | | | [place] | | | | | | [address] | | | | | | [phone] | | | +--------+ + + + [...] Russo RN - 10/06/2019 3:46 PM PSTCalled [facility] labs , requested lab resuults be faxed to our office. Lab staff states labs were done on Sunday12/03/2018. [facility] fax number given. Electronically signed by Heather Russo RN at 019 3:47 PM PSTTelephone Encounter - Heather Russo RN - 10/03/2019 10:27 AM PSTContac katlin [facility] to inquire about vancomycin trough level due yesterday 09/13. Staff states they had a FILM LOADER on duty yesterday, who could not draw from patient picc line and she was advised not to draw a peripheral blood sample. Staff at [place] states there will be a RN on staff tonight and the vancomycin trough will be drawn. Advised if vano mcycin trough levels are out of range to call [facility] target protection specialist doctor. Contact phone number pro ovyjd. Advised [facility] staff our office will follow up next week for lab results . Facility sends their labs to [facility] for processing. elephone Encounter - Heather Russo RN - 019 10:26 AM PSTCalled [facility] lab for vancomycin trough leve due yesterday 10/02, advised no current vancomycin trough level, last labs are from 09/23/2019. Electronic ally signed by Heather Russo RN at 10/03/2019 10:27 AM PSTTelephone Encounter - Heather Katz RN - 10/02/2019 11:33 AM PSTCalled [facility] to verify current Vancom ycin dose and [...] Russo RN - 10/01/2019 10:57 AM PSTCalled [facility]. Advised patient will need twice weekly labs while on IV Vancom ycin, informed nurse lab orders per DR Vogel as follows. Every Sunday: cbc, cmp, esr, crp +vanco trough. Every : cbc, cmp and vanco trough. [facility] uses [facility]. Advised patient to follow up with [facility] 10/13/2019. elephone Encounter - Heather Russo RN - 10/01/2019 1 0:57 AM PST----- Message from Savannah Patel [place] Opener sent at 10/01/2019 8:[address] [...]
--- OUTSIDE RECORDS SUMMARY | ~2020-06-01 | XMS | Encounter Summary ---
Demographics + + + | Address | [address] | | | [place] [address] | + + + | Home Phone [...] Author + + + | Author | [facility] | + + + | Organization | [facility] | + + + | Address [...] Team Providers + +------+ + | Care Trestle Mechanic Name | Role | Phone | + +------+ + | Dustin Perez MD | PCP | | + +------+ + Encounter Details +--------+--------+ + + + | Date | Type | Department | Care Team | Description | +--------+--------+ + + + | 09/03/ | Intake | Transfer Center | | N/A | | 2019 | | [address] | | | | | | [place], | | | | | | [place] [address] | | | +--------+--------+ + + + [...]
--- OUTSIDE RECORDS SUMMARY | ~2020-06-01 | XMS | Encounter Summary ---
Demographics + + + | Address | [address] | | | [place] [address] | + + + | Home Phone [...] Author + + + | Author | [facility] | + + + | Organization | [facility] | + + + | Address [...] Team Providers + +------+ + | Care Coil Inspector Name | Role | Phone | + +------+ + PCP | Unavailable | + +------+ + Encounter Details +--------+ + + + + | Date | Type | Department | Care Team | Description | +--------+ + + + + | 08/23/ | Hospital | LAB SURGICAL | | | | 2009 | Encounter | PATHOLOGY [address] | | | | | | [address] | | | | | | [place], [place] | | | | | | [address] | | | +--------+ + + + [...] | | | | | | of -82 | | | | | | days. He was found to | | | | | | have markedly elevated | | | | | | myoglobin and CPK(7649) | | | | | | levels. [...] Dexter | | | | | | [facility],[place], | | | | | | [place], delivered via | | | | | | aix architect on moist gauze | | | | [...] | + + + + + | [facility] | [address] | [place] [address] | | | PATHOLOGY | [address] | | | + + + + + documented in this encounter Visit Diagnoses Not on filedocumented in this encounter
--- OUTSIDE RECORDS SUMMARY | ~2020-06-01 | XMS | Encounter Summary ---
Demographics + + + | Address | [address] | | | [place] [address] | + + + | Home Phone | | + + + | Preferred Language | Unknown | + + + | Marital Status | Single | + + + | Yarsani Affiliation | Unknown | + + + | Race | Unknown | + + + | Ethnic Group | Unknown | + + + Author + + + | Author | [facility] | | | and [place] | + + + | Organization | [facility] | | | [...] Team Providers + +------+ + | Care Agricultural Economics Professor Name | Role | Phone | + +------+ + | Dustin Perez MD | PCP | | + +------+ + Reason for Visit +--------+ + | Reason | Comments | +--------+ + | Other | Labs from [facility] DOS 10/06/2019 (CBC,CMP,ESR,CRP,VANCO | | | TROUGH).. | +--------+ + Encounter Details +--------+ + + + + | Date | Type | Department | Care Team | Description | +--------+ + + + + | 10/08/ | Documentati | [facility] | Savannah Patel, | Other (Labs from | | 2019 | on | INFECTIOUS DISEASE | Brush Hand | [facility] DOS | | | | [address] | | 10/06/2019 | | | | [place], [place] | | (CBC,CMP,ESR,CRP,VAN | | | | [address] | | CO TROUGH)..) | | | | [phone] | | | +--------+ + + + [...] as of this encounter Progress Savannah Seo Brush Hand - 10/08/2019 3:36 PM PSTLabs from [facility] (CBC,CMP,ESR,CRP,VANCO TROUGH).. RECEIVED: 10/08/2019 Labs were abstracted into [employer] and sent to scan. Ermelinda CMAElectronclaudette signed by Savannah Patel Brush Hand at 10/08/2019 3:51 PM PS Tdocumented in [...] + + + | REFERENCE LAB | [address] | [place] | [phone] | | [facility] | | [address] | | + + + + + [...] + | REFERENCE LAB | [address] | [place] | [phone] | | [facility] | | [address] | | + + + + + [...] + + | REFERENCE LAB | [address] | [place] | [phone] | | [facility] | | [address] | | + + + + + [...] + + | REFERENCE LAB | [address] | [place], [place] | [phone] | | [facility] | | [address] | | + + + + + [...] + + + | REFERENCE LAB | [address] | [place] | [phone] | | [facility] | | [address] | | + + + + + documented in this encounter Visit Diagnoses Not on filedocumented in this encounter"
--- OUTSIDE RECORDS SUMMARY | ~2020-06-01 | XMS | Encounter Summary ---
Demographics + + + | Address | [address] | | | [place] [address] | + + + | Home Phone | | + + + | Preferred Language | Unknown | + + + | Marital Status | Single | + + + | Sabianist Affiliation | Unknown | + + + | Race | Unknown | + + + | Ethnic Group | Unknown | + + + Author + + + | Author | [facility] | | | and [place] | + + + | Organization | [facility] | | [...] Team Providers + +------+ + | Care Cylinder Honer Name | Role | Phone | + [...] + + | 10/24/ | Telephone | [facility] | Heather Russo | Other (lab results) | | 2019 | | INFECTIOUS DISEASE | [address] | | | | | [address] | | | | | | [place] | | | | | | [address] | | | | | | [phone] | | | +--------+ + + + [...] Russo RN - 10/28/2019 10:00 AM PSTCalled [facility] requested vancomycin trough results [...]
--- OUTSIDE RECORDS SUMMARY | ~2020-06-01 | XMS | Encounter Summary ---
Demographics + + + | Address | [address] | | | [place] [address] | + + + | Home Phone [...] + + + | Author | [facility] | + + + | Organization | [facility] | + + + | Address [...] Team Providers + +------+ + | Care Jacket Preparer Name | Role | Phone | + +------+ + | Dustin Perez MD | PCP | | + +------+ + Encounter Details +--------+ + + + + | Date | Type | Department | Care Team | Description | +--------+ + + + + | 10/11/ | Telephone | Infectious | Tamera Cervantes, | | | 2019 | | [facility] at [facility] | [address] | | | | | [address] | [address] | | | | | Loop Physician's | [place], [place] | | | | | [address] | [address] | | | | | [place], [place] | [phone] | | | | | [address] | | | | | | [phone] | | | +--------+ + + + [...]
--- OUTSIDE RECORDS SUMMARY | ~2020-06-01 | XMS | Encounter Summary ---
Demographics + + + | Address | [address] | | | [place] [address] | + + + | Home Phone | | + + + | Preferred Language | Unknown | + + + | Marital Status | Single | + + + | Confucianist Affiliation | NRP | + + + | Race | White | + + + | Ethnic Group | Not or | + + + Author + + + | Author | [facility] | + + + | Organization | [facility] | + + + | Address | [...] Providers + +------+ + | Care Hand Method Lasting Machine Operator Name | Role | Phone [...] | | | | | unspecified | [place], [place] | | | | | | laterality | [address] | | | | | | Procedures | Phone: | | | | | | PHYSICAL | [phone] | | | | | | THERAPY | Fax: | | | | | | REFERRAL | [phone] | | + +--------+ + + + [...] [address] | | | | | | [place], [place] | [place], [place] | | | | | | [address] | [address] | | | | | | | Phone: | | | | | | | [phone] | | | | | | | Fax: | | | | | | | [phone] | +--------+--------+ + + + + Encounter Details +--------+---------+ + + + | Date | Type | Department | Care Team | Description | +--------+---------+ + + + | 10/14/ | Office | Orthopaedics | Cory Carmen, | Ankle pain, | | 2019 | Visit | [facility] | [address] | unspecified | | | | for Health and | [place], [place] | chronicity, | | | | Healing [address] | [address] | unspecified | | | | [address] [facility] for | [phone] | laterality (Primary | | | | Health and Healing, | | Dx) | | | | | | | | | | Floor [place], [place] | | | | | | [address] | | | | | | [phone] | | | +--------+---------+ + + + [...] be different fro joseph the original. [facility] Today's date: 10/14/2019 Orthopaedic Diagnoses: MRSA osteomyelitis of left calc/talus/tibia, Failed ankle fusion Surgeries: - 09/04/2019: LLE I&D, HWR of hindfoot IMN, Abx IMN, 4 compartment fasciotomies - 09/06/2019: LLE I&D, fasciotomy closure S: Mr. Monty An is a 69 year old male, he is now ~6wks since surgery. Currently he is NWB. He has remained at a [facility] facility following [facility] discharge for IV-Vanc and wound care. He [...] as listed. Cory Carmen MD ORTHOPAEDICS AT [facility] [address] Mailcode: [address] [address] Orders Placed This Encounter X-RAY [...] report as now presented. Final signature: Marino Aslton MD 10/14/2019 3:33 PM | | Preliminary: [...]
--- OUTSIDE RECORDS SUMMARY | ~2020-06-01 | XMS | Encounter Summary ---
Demographics + + + | Address | [address] | | | [place] [address] | + + + | Home Phone | | + + + | Preferred Language | Unknown | + + + | Marital Status | Single | + + + | Yazdanism Affiliation | Unknown | + + + | Race | Unknown | + + + | Ethnic Group | Unknown | + + + Author + + + | Author | [facility] | | | and [place] | + + + | Organization | [facility] | | | and [...] Team Providers + +------+ + | Care E Learning Manager Name | Role | Phone | + +------+ + | Dustin Perez MD | PCP | | + +------+ + Reason for Visit +---------+ + | Reason | Comments | +---------+ + | Results | [facility], Robo CBC | +---------+ + Encounter Details +--------+ + + + + | Date | Type | Department | Care Team | Description | +--------+ + + + + | 10/27/ | Documentati | [facility] | Jaspreet Gunderson, | Results | | 2019 | on | INFECTIOUS DISEASE | Liang Quintana MD | ([facility], | | | | [address] | [address] | [address]) | | | | [place], [place] | [place] [address] | | | | | [address] | [phone] | | | | | [phone] | | | +--------+ + + + [...] + | CBC WITH | Routin | 10/23/2019 | | Results for this | | DIFFERENTIAL | e | | | procedure are in the | | | | | | results section. | + +--------+ + + + | VANCOMYCIN, TROUGH | Routin | 10/23/2019 | | Results for this | | | e | | | procedure are in the | | | | | | results section. | + +--------+ + + + | COMPREHENSIVE | Routin | 10/23/2019 | | Results for this | | METABOLIC PANEL | e | | | procedure are in the | | | | | | results section. | + +--------+ + + + documented in this encounter Results CBC with Differential (10/23/2019) + +-------+ + + + | Component | Value | Ref Range | Performed | Pathologist | | | | | At | Signature | + +-------+ + + + | WBC | 7.4 | | | | + +-------+ + + + | RBC COUNT. | 4.34 | | | | + +-------+ + + + | Hemoglobin | 10.3 | | | | + +-------+ + + + | HCT, | 32.5 | | | | | External | | | | | + +-------+ + + + | PLT, | 269 | | | | | External | | | | | + +-------+ + + + | NEUTROPHILS | 59.1 | % | | | | BL | | | | | + +-------+ + + + | % Bands | 0 | | | | + +-------+ + + + | LYMPHOCYTES | 18.0 | % | | | | BL | | | | | + +-------+ + + + | MONOCYTES | 11.7 | | | | | BAL | | | | | + +-------+ + + + + + | Specimen | + + | Blood | + + Vancomycin, Trough (10/23/2019) + +-------+ + + + | Component | Value | Ref Range | Performed | Pathologist | | | | | At | Signature | + +-------+ + + + | Vancomycin | 11.9 | ug/mL | | | | Trough | | | | | + +-------+ + + + + + | Specimen | + + | Blood | + + Comprehensive Metabolic Panel (10/23/2019) + +-------+ + + + | Component | Value | Ref Range | Performed | Pathologist | | | | | At | Signature | + +-------+ + + + | Na | 140 | mmol/L | | | + +-------+ + + + | K | 3.9 | 3.2 - 5.7 | | | | | | mmol/L | | | + +-------+ + + + | Cl | 104 | mmol/L | | | + +-------+ + + + | Glucose | 120 | mg/dL | | | + +-------+ + + + | Urea | 23 | | | | | Nitrogen, | | | | | | Body fluid | | | | | + +-------+ + + + | CREA | 1.06 | 0.50 - 1.30 | | | | | | mg/dL | | | + +-------+ + + + | AST | 11 | U/L | | | + +-------+ + + + | ALT | 7 | U/L | | | + +-------+ + + + | Bilirubin | 0.3 | mg/dL | | | | Total | | | | | + +-------+ + + + | Alkaline | 95 | U/L | | | | Phosphatase | | | | | + +-------+ + + + + + | Specimen | + + | Blood | + + documented in this encounter Visit Diagnoses Not on filedocumented in this encounter"
--- OUTSIDE RECORDS SUMMARY | ~2020-06-01 | XMS | Encounter Summary ---
Demographics + + + | Address | [address] | | | [place] [address] | + + + | Home Phone [...] Team Providers + +------+ + | Care Wardrobe Technician Name | Role | Phone | [...] | 2020 | cheduled | [facility] [place] | [address] | | | | | for Health and | [facility] [place] | | | | | Healing [address] | [address] | | | | | Ave [place] for | [phone] | | | | | Health and Healing, | | | | | | [facility] | | | | | | Floor [place], [place] | | | | | | [address] | | | | | | [phone] | | | +--------+ + + + [...] might be different fro joseph the original. [facility] Today's date: 10/14/2019 [...] doctor locally. . He is still taking [place] [facility] w[facility] care. The wounds are almost [...] 3 views Cory Carmen MD [facility]OP[facility] AT [facility] [address] Mailcode: [address] [address] The patients encounter was accomplished via a telephone call today due to COVID-19 precauti onary measures to limit the patient's unnecessary exposure. Patient agrees to a telephone en counter for today's visit. They understand they may be responsible for the balance after ins urance processes the claim. The visit took place via telephone when I was located at a [facility] site at [facility]. The patient stated they were located at their home in [place] at the time o f the telephone [...]
--- OUTSIDE RECORDS SUMMARY | ~2020-06-01 | XMS | Encounter Summary ---
Demographics + + + | Address | [address] | | | [place] [address] | + + + | Home Phone | | + + + | Preferred Language | Unknown | + + + | Marital Status | Single | + + + | Mormonism Affiliation | NRP | + + + [...] Team Providers + +------+ + | Care Polystyrene Molding Machine Tender Name | Role | Phone | [...] | | | | [address] [facility] | [place], [place] | | | | | Health and Healing, | [address] | | | | | [facility] | [phone] | | | | | Floor [place], [place] | | | | | | [address] | | | | | | [phone] | | | +--------+ + + + [...] | | | | | with hardware ([facility]) | | | | | [...]
--- OUTSIDE RECORDS SUMMARY | ~2020-06-01 | XMS | Encounter Summary ---
Demographics + + + | Address | [address] | | | [place] [address] | + + + | Home Phone | | + + + | Preferred Language | Unknown | + + + | Marital Status | Single | + + + | Holiness Affiliation | Unknown | + + + [...] Team Providers + +------+ + | Care Senior Chemical Engineer Name | Role | Phone | [...] + + | 06/30/ | Office | [facility] | Heather Thomas | Persistent atrial | | 2019 | Visit | [facility]ARDIOLOGY [place] | [address] | fibrillation (HCC) | | | | [address] | ASHLYN MENDEZ F | (Primary Dx); | | | | [address] | [place] [address] | Essential | | | | [place], [place] | [phone] | hypertension; | | | | [address] | | Hypotensive episode; | | | | [phone] | | Pedal edema; | | | [...] midodrine, hyperlipidemia, and dependent pedal edema. His [id number] VASC score is 3( age, HTN, DM) giving him an annual stroke risk of 3.2% and mt s HAS BLED score is 4( HTN, [...] noted that h is previous hospitalization at [facility] was from viral gastroenteritis, cirrhosis, mi ld [...] the emergency room and then hospitalized at [facility] in May for weakness and hyponatremia, and after that he was moved to [facility] where he has been for the past [...] much improved since he has been at [place], does r emain abstinent from alcohol. His [...] have improved since he has been at [facility]. Denies unexplained weight loss. Appetite is [...] or illicit drug use. . 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 Rate 98 bpm, QRS 80 ms, QTC 380 ms, trac ing personally reviewed by ok LABS Labs: 05/28/2019:[facility]: Phosphorus 2.9. [...] & PLAN: He was here today with assisted living care manager from [place] as overdue for 6-month follow-up. He has problems as detailed below. Overall he seems quite stable, with previous problems with hypotension and A. fib with RVR resolved on current medications. He reports he has improved greatly since he has been at [facility] for the last 4-5 weeks, and [...] eris, vital sign and medication record from [facility]. Allergies, current medications.labs Family history, past medical history, past social history, past surgical history. Problem list. YAMILA Bhagat [facility] 07/01/2019 docume nted in this encounter [...] | | | | | by [facility] Read Only, | | | | | | [facility] ([id number]), | | | | | | mapping editor Moses Webster | | | | | | ([id number]) on 06/30/2019 | | | | | [...]
--- OUTSIDE RECORDS SUMMARY | ~2020-06-01 | XMS | Encounter Summary ---
Demographics + + + | Address | [address] | | | [place] [address] | + + + | Home Phone | | + + + | Preferred Language | Unknown | + + + | Marital Status | Single | + + + | Mandaen Affiliation | NRP | + + + [...] Team Providers + +------+ + | Care Psychiatric Aide Name | Role | Phone | + [...] | | | | | | Rd [facility] | | | | | | Hospital Admitting | | | | | | Desk Located on the | | | | | | 9th floor | | | | | | [place], [place] | | | | | | [address] | | | +--------+ + + + [...]
--- OUTSIDE RECORDS SUMMARY | ~2020-06-01 | XMS | Clinical Summary ---
Demographics + + + | Address | [address] | | | [place] [address] | + + + | Home Phone | | + + + | Preferred Language | Unknown | + + + | Marital Status | Single | + + + | Nondenominational Affiliation | Unknown | + + + | Race | Unknown | + + + | Ethnic Group | Unknown | + + + Author + + + | Author | [facility] | | | and [place] | + + + | Organization | [facility] | | [...] Team Providers + +------+ + | Care Commissioned Defence Force Officer Name | Role | Phone | [...] mg by mouth | | 0 | /0 | | Activ | | (NEURONTIN) 600 [...] tablet by | 60 | 11 | 10/2 | | Activ | | (KLOR-CON M20) 20 | mouth 2 times daily. | tablet | | 1/20 | | e | | mEq ER tablet | | | | 19 | | | + + + +---------+------+------+-------+ | polyethylene | Take 17 g by mouth. | | 0 | 11/0 | | Activ | | glycol (MIRALAX) | | | | 6/20 | | e | | packet | | | | 19 | | | + + + +---------+------+------+-------+ | acetaminophen | Take 1,000 mg by | | 0 | 11/0 | | Activ | | (TYLENOL) 500 mg | mouth. | | | 6/20 | | e | | tablet | | | | 19 | | | + + + +---------+------+------+-------+ | ferrous sulfate | Take 325 mg by mouth | | 0 | | | Activ | | 325 mg tablet | daily (with | | | | | e | | | breakfast). | | | | | | + + + +---------+------+------+-------+ | ascorbic acid | Take 500 mg by mouth | | 0 | | | Activ | | (VITAMIN C) 500 mg | Daily. | | | | | e | | tablet | | | | | | | + + + +---------+------+------+-------+ Active Problems + + + | Problem | Noted Date | + + + | Gynecomastia, male | 09/14/2019 | + + + | Neuropathy, hereditary sensory | 09/12/2019 | + + + + + | Overview: ? Cindy Potts Other? 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 | 09/04/2019 | + + + | Abscess | 09/04/2019 | + + + | Encounter for [...] | Cirrhosis, Laennec's | | + +---+ Family History + + +------+ + | Medical History | Relation | Name | Comments | + + +------+ + | Other (see comment) | Brother | | Neurologic Disorder - quadriplegic (from | | | | | injury) | + + +------+ + | Kidney disease | Brother | | | + + +------+ + | Bipolar [...] | Height | 182.9 cm (6') | 09/29/2019 1:05 PM | | | | | PST | | + + + + + | Body Mass Index | 27.53 | 09/29/2019 1:05 PM | | | | | PST | | + + + + + Plan of Treatment + + + + + | Health Maintenance | Due Date | Last | Comments | | | | Done | | + + + + + [...] + | Vaccine: Zoster (2 | | 12/09/19 | | | of 3) | 4 | 14 | | + + + + + | AAA Screening | | | | | | 5 | | | + + + + + | Vaccine: | | | | | Pneumococcal 65+ (1 | 5 | | | | of 1 - PPSV23) | | | | + + + + + | Adult Annual | | | | | Wellness Visit | 9 | | | + + + + + | Vaccine: Influenza | | 09/17/20 | | | (#1) | 0 | 19, | | | | | 08/24/20 | | | | | 18, | | | | | 08/18/20 | | | | | 16, | | | | | Addition | | | | | al | | | | | history | | | | | exists [...] + +--------+ | MEDICARE | MEDICA | [id number] | 12/13/19 | [phone] | | Medica | | | RE | | 07-Pre | 5 | | re | | | PART A | | sent | | | | | | AND B | | | | | | + +--------+ +--------+ + +--------+ | MODA | MODA | [id number] | 11/12/19 | [phone] | [address] | Indemn | | | HEALTH | | 19-Pre | 9 | [address] | ity | | | MDCR | | sent | | [place], | | | | [place] | | | | [place] [address] | | + +--------+ +--------+ + +--------+ [...] | [birth year] | | [address] | | | al/Fam | | 1950 | [phone] | [address] [place], | | | [place] | | | 2 (Home) | [place] [address] | | | | | | [phone] | | | | | | | 2 (Work) | | + +--------+ +--------+ + + Advance Directives + + + + + | Type | Date Recorded | Patient | Explanation | | | | Fine Grade Operator | | + + + + + | Power of | | | | | Manager Office | | | | + + + + + | Advance | | | | | Directive | | | | + + + + +"
--- OUTSIDE RECORDS SUMMARY | ~2020-06-01 | XMS | Encounter Summary ---
Demographics + + + | Address | [address] | | | [place] [address] | + + + | Home Phone [...] Team Providers + +------+ + | Care Intermediate School Teacher Name | Role | Phone | + +------+ + | Dustin Perze MD | PCP | | + +------+ [...]
--- OUTSIDE RECORDS SUMMARY | ~2020-06-01 | XMS | Encounter Summary ---
Demographics + + + | Address | [address] | | | [place] [address] | + + + | Home Phone [...] Team Providers + +------+ + | Care Bus Operator Name | Role | Phone | [...] + + | 10/13/ | Documentati | [facility] | Scotty Donovan DO | Results | | 2019 | on | INFECTIOUS DISEASE | [address] | ([facility] | | | | [address] | [place] [address] | Ignacio mcguire) | | | | [place], [place] | [phone] | | | | | [address] | | | | | | [phone] | | | +--------+ + + + [...] [address] | [place] | [phone] | | [facility] | | [address] | | + + + + + [...] [address] | [place] | [phone] | | [facility] | | [address] | | + + + + + documented in this encounter Visit Diagnoses Not on filedocumented in this encounter"
--- OUTSIDE RECORDS SUMMARY | ~2020-06-01 | XMS | Encounter Summary ---
Demographics + + + | Address | [address] | | | [place] [address] | + + + | Home Phone | | + + + | Preferred Language | Unknown | + + + | Marital Status | Single | + + + | Hinduism Affiliation | Unknown | + + + | Race | Unknown | + + + | Ethnic Group | Unknown | + + + Author + + + | Author | [facility] | | | and [place] | + + + | Organization | [facility] | | | and [...] Team Providers + +------+ + | Care School Janitor Name | Role | Phone | + [...] + + | 10/08/ | Telephone | [facility] | Heather Rusos | Other (request lab | | 2019 | | INFECTIOUS DISEASE | AZAR De Oliveira | results) | | | | [address] | | | | | | [place] | | | | | | [address] | | | | | | [phone] | | | +--------+ + + + [...] per Dr Donovan. Advised Dr Nassar is public relations coordinator for [employer] [facility], supplied contact phone number. Outside Labs were done 10/03/19, 10/06/19 however they are in process of being entered into evOLED. elephone En counter - Scotty Donovan DO [...] treated for necrotizing soft tissue infection. Called [facility] to verify, nursing staff states dose [...]
--- OUTSIDE RECORDS SUMMARY | ~2020-06-01 | XMS | Encounter Summary ---
Demographics + + + | Address | [address] | | | [place] [address] | + + + | Home Phone [...] Team Providers + +------+ + | Care Sales And Service Officer Name | Role | Phone | [...]
--- OUTSIDE RECORDS SUMMARY | ~2020-06-01 | XMS | Encounter Summary ---
Demographics + + + | Address | [address] | | | [place] [address] | + + + | Home Phone | | + + + | Preferred Language | Unknown | + + + | Marital Status | Single | + + + | Restorationist Affiliation | Unknown | + + + [...] Team Providers + +------+ + | Care Decatizer Name | Role | Phone | + [...] + + | 10/13/ | Office | [facility] | Scotty Donovan DO | Subacute | | 2019 | Visit | INFECTIOUS DISEASE | [address] | osteomyelitis of | | | | [address] | [place] [address] | left ankle (HCC) | | | | [place], [place] | [phone] | (Primary Dx); | | | | [address] | | Infection of lower | | | | [phone] | | extremity associated | | | [...] - 10/13/2019 2:20 PM PSTOn facility sheet.Electronica chaimy signed by Scotty Donovan DO at 10/13/2019 [...] extremity edema, atrial fibrillation, hypertension, seen in [facility] for orthopedic hardware associated osteomyelitis. The patient [...] apparently some cultures obtained at his [facility] facility which were reportedly negative. Prior to [...] 06, 2019 for wound closure. The patient's in crobiology showed Staphylococcus aureus (MRSA), Corynebacterium striatum, [...] weekend. He has follow-up with orthopedics at [facility] later this week. He denies any nausea, [...]
--- OUTSIDE RECORDS SUMMARY | ~2020-06-01 | XMS | Encounter Summary ---
Demographics + + + | Address | [address] | | | [place] [address] | + + + | Home Phone [...] Author + + + | Author | [facility] | + + + | Organization | [facility] | + + + | Address [...] Team Providers + +------+ + | Care Diesel Mechanic Construction Name | Role | Phone | + [...] | | | | [facility] | [place], [place] | | | | | [address], [facility] floor | [address] | | | | | [place], [place] | [phone] | | | | | [address] | | | | | | [phone] | | | +--------+ + + + [...]
--- OUTSIDE RECORDS SUMMARY | ~2020-06-01 | XMS | Encounter Summary ---
Demographics + + + | Address | [address] | | | [place] [address] | + + + | Home Phone [...] Author + + + | Author | [facility] | + + + | Organization | [facility] | + + + | Address [...] Team Providers + +------+ + | Care Managed Services Consultant Name | Role | Phone | [...] | | | | [address] [facility] | [place], [place] | | | | | [address], [facility] floor | [address] | | | | | [place], [place] | [phone] | | | | | [address] | | | | | | [phone] | | | +--------+ + + + [...]
--- OUTSIDE RECORDS SUMMARY | ~2020-06-01 | XMS | Encounter Summary ---
Demographics + + + | Address | [address] | | | [place] [address] | + + + | Home Phone | | + + + | Preferred Language | Unknown | + + + | Marital Status | Single | + + + | Quaker Affiliation | Unknown | + + + [...] Team Providers + +------+ + | Care Model Maker Plastic Name | Role | Phone | + +------+ + | Dustin Perez MD | PCP | | + +------+ + Reason for Visit + + + | Reason | Comments | + + + | Establish Care | | + + + Evaluate & Treat (Routine) +--------+--------+ + + + + | Status | Reason | Specialty | Diagnoses / | Referred By | Referred To | | | | | Procedures | Contact | Contact | +--------+--------+ + + + + | Closed | | Infectious | Diagnoses | [place], | | | | | Diseases | Methicillin | Joseph Tomlin MD | | | | | | resistant | [address] | | | | | | Staphylococc | Tejas Bourgeois | | | | | | us aureus | [address] | | | | | | infection, | [place], [place] | | | | | | unspecified | [address] | | | | | | site | Phone: | | | | | | Chronic | [phone] | | | | | | multifocal | Fax: | | | | | | osteomyeliti | [phone] | | | | | | s, multiple | | | | | | | sites (HCC) | | | | | | | S.aureus & | | | | | | | E.faecalis, | | | | | | | left leg | | | | | | | Procedures | | | | | | | [place] OFFICE | | | | | | | OUTPATIENT | | | | | | | VISIT 25 | | | | | | | MINUTES | | | +--------+--------+ + + + + Encounter Details +--------+---------+ + + + | Date | Type | Department | Care Team | Description | +--------+---------+ + + + | 09/29/ | Office | [facility] | Jaspreet Gunderson, | Necrotizing soft | | 2019 | Visit | INFECTIOUS DISEASE | Liang Quintana MD | tissue infection | | | | [address] | [address] | (Primary Dx); | | | | [place], [place] | [place] [address] | Necrotizing | | | | [address] | [phone] | fasciitis of lower | | | | [phone] | | leg ([facility]); Infected | | | | | | orthopedic implant, | | | | | | initial encounter | | | | | | ([facility]); Polymicrobial | | | | | | bacterial | | | | | | infection; long term care pharmacist | | | | | | (current) use of | | | | | | antibiotics; MRSA | | | | | | infection; | | | | | | Enterococcal | | | | | | infection; [facility] | | | | | | of Corynebacterium | | | | | | infection | +--------+---------+ + + + Social History [...] + + + | Blood Pressure | 114/68 | 09/29/2019 1:05 PM | | | | | PST | | + + + + + | Pulse | 107 | 09/29/2019 1:05 PM | | | | | PST | | + + + + + | Temperature | 36.9 C (98.4 F) | 09/29/2019 1:05 PM | | | | | PST | | + + + + + | Respiratory Rate | 16 | 09/29/2019 1:05 PM | | | | | PST | | + + + + + | Oxygen Saturation | 98% | 09/29/2019 1:05 PM | | | | | PST | | + + + + + | Inhaled Oxygen | - | - | | | Concentration | | | | + + + + + | Weight | 88 kg (194 lb) | 09/29/2019 1:05 PM | | | | | PST | | + + + + + | Height | 182.9 cm (6') | 09/29/2019 1:05 PM | | | | | PST | | + + + + + | Body Mass Index | 26.31 | 09/29/2019 1:05 PM | | | | | PST | | + + + + + documented in this encounter Patient Instructions Patient Instructions Liang Cho MD - 09/29/2019 1:00 PM PST Home Infusion Therapy Infusion therapy is a safe way to take medicines or fluids that can t be taken by mouth. Instead, they flow through a flexible tube (catheter) that s placed in a vein or just unde r the skin usually on your arm or chest. This is called the infusion site. Advantages of home therapy Home infusion therapy allows you to live a more normal life. Home therapy also costs less t owen treatment in a hospital. With proper care, the risk of infection can be low. Your role With home therapy you take an active role in your treatment. A [facility] healthcare [facility] gs your supplies, and a nurse shows you what to do. You need to know the following: Who to call in an emergency What supplies you need How to prevent infection How to handle and store your supplies safely Where to get support When to call the nurse Call the nurse if you notice any of the following problems: There is redness, swelling, drainage, or pain around the infusion site. Your temperature is higher than normal or you have chills. You have swelling in your chest, arm, or neck. Fluid may be leaking into the tissue. The catheter or tubing comes out. Turn off the system and call the nurse if: The pole falls over and something breaks, or you have a problem putting the pole upright and restarting the system. The solution isn t running smoothly through the tubing. There is a tear or leak in the tubing or the catheter. The alarm on the pump comes on. Date Last Reviewed: 04/12/201819995614-7810 [employer]. [address] [place] [address]. All righ ts reserved. This information is not intended as a substitute for professional medical care. Always follow your healthcare professional's instructions. Methicillin-Resistant Staphylococcus aureus (MRSA) What is MRSA? Staphylococcus aureusbacteria or staph are common germs. They are normally found o n the skin or in the nose of many people. Usually, the bacteria cause no problem. Occasional ly, they can cause mild skin infections. Or severe infections of the skin, lungs,blood, or other organs or tissues may develop. Some staph infections can be easily treated with antib iotics. But one type of staph infection, methicillin-resistant staphylococcus aureus (MRSA) cannot. It is called methicillin-resistant because the antibiotic, methicillin, which used t o be effective treatment, no longer works. MRSA is common in hospitals and nursing homes or long-term care facilities. It is also spreading among healthy children and adults outside [facility]. A person may be a carrier. Or he or she may have the infection. Colonization. When a person carries the MRSA bacteria but is healthy, it's called being colonized. This person can spread MRSA to others but has no infection. Infection. When a person gets sick because of the bacteria, it's called being infected w ith MRSA. This person can also spread MRSA to others. If not treated properly, MRSA infectio ns can be very serious and even cause . What are the risk factors for MRSA? Anyone can getMRSA, although there are factors that increase the risk. Some of these incl ude: Recent or lengthy hospital stay Having a surgical wound or intravenous (IV) line Having a weakened immune system due to a medical condition or its treatment Living in a halfway or long-term care facility Recent antibiotic therapy Diabetes Kidney dialysis HIV infection Injection drug use or sharing needles Fdc or penitentiary time Living in any crowded facility, such as a dormitory service Sharing sports equipment, razors, or other sharp objects How does MRSA spread? People who are colonized with MRSA have MRSA in their noses or on their skin. Though the y may not be sick themselves, they can spread the germs to others. In hospitals and long-term care facilities, MRSAcan spread from patient to patient on the hands of healthcare workers. It can also spread on objects, such as cart or door handles and bedrails. Outside healthcare settings, MRSA usually spreads through haph-ch-yspt contact, shared t owels or athletic equipment, or through close contact with an infected person. What are the symptoms of MRSA infection? MRSA skin infections start as small red bumps on the skin that look like pimples or spider bites. The small bumps usually get larger and become swollen, painful, warm to the touch, an d filled with pus. Fever may be present. MRSA can also start in other ways. And it can sprea d deeper into the body where it can cause one or more of the following: Infections in bones, muscles, and other tissues Pneumonia, an infection in one or both lungs Infection of a surgical wound Infection in the bloodstream (bacteremia) Infection of the lining of the heart (endocarditis) Infection of the urinary tract (bladder and kidneys) How is MRSA diagnosed? A sample of blood, urine, or infected tissue may be taken to diagnose a MRSA infection. A s wab of the inside of the nose is taken to diagnose colonization. The sample is then sent to a laboratory and tested for MRSA. if the infection involves bone, joint, or other organs, a blood test may be done. Imaging studies, such as an X-ray or CT scan, may also be needed. How is MRSA treated? MRSA infections are usually treated with antibiotics. It may begiven by mouth in pill for m or into a vein (intravenous or IV). If a skin abscess is present, it may be drained. Patients who test positive for MRSA colonization may undergo a process called decolonizatio n. A topical antibioticis applied inside the nose or in the nostrils to kill the bacteria. A special soap may be used to cleanse the skin. Can MRSA be prevented? Hospitals and nursing homes help prevent MRSA by doing the following: Handwashing.This is the single most important way to prevent the spread of germs. Heal thcare workers should wash their hands with soap and water or an alcohol-based hand white work cleaner before and after treating each patient. They also should clean their hands after touching an y surface that may be contaminated. Protective clothing.Healthcare workers and visitors may wear gloves and a gown when en tering the room of a patient with MRSA. They remove these items before leaving. Private rooms.Patients with MRSA infections are placed in private rooms or in a room w ith others who have the same infection. Personal care items.Patients with MRSA may have their own patient care items, such as thermometers and stethoscopes. Monitoring. Hospitals monitor the spread of MRSA and educate all staff on the best ways to prevent it. Patients can help prevent MRSA by doing the following: Ask all hospital staff to wash their hands before touching you. Don t be afraid to spe ak up! Wash your own hands frequently with soap and water. Or use an alcohol-based hand gel. Ask that stethoscopes and other instruments be wiped with alcohol before they are used o n you. Be sure you re tested for MRSA if you have a skin infection. If you are taking care of someone with MRSA: Wash your hands well with soap and water before and after any contact with the person. Wear gloves when changing a bandage or touching an infected wound. Discard gloves after each use. Then wash your hands well. Wash the patient's bed linens, towels, and clothing in hot water with detergent or liqui d bleach. Everyone can help prevent MRSA by doing the following: Wash your hands often with warm water and soap. ? Rub your hands together. ? Clean the whole hand, under your nails, between your fingers, and up the wrists. ? Wash for at least 15 to 20 seconds. ? Rinse, letting the water run down your fingers, not up your wrists. ? Dry your hands well. Use a paper towel to turn off the faucet and open the door. If soap and water aren't available, use an alcohol-based hand white work cleaner. ? Squeeze about a tablespoon of white work cleaner into the palm of one hand. ? Rub your hands together briskly, cleaning the backs of your hands, the palms, between you r fingers, and up the wrists. ? Rub until the white work cleaner is gone and your hands are completely dry. Keep cuts and scrapes clean and covered until they heal. Avoid contact with the wounds or bandages of others. Avoid sharing towels, razors, clothing, and athletic equipment. Date Last Reviewed: 08/12/201619995579-3793 [employer]. [address] [place] [address]. All [facility] ts reserved. This information is not intended as a substitute for professional medical care. Always follow your healthcare professional's instructions. 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 History is obtained from: Patient, outside medical records, chart review. The patient has a remote history of [...] had apparently some cultures obtained at his [facility] facility which were reportedly negative. Prior [...] 06, 2019 for wound closure. The patient's oh crobiology showed Staphylococcus aureus (MRSA), Corynebacterium striatum, Enterococcus faeca lis. Culture results are available in "care everywhere". Patient was recommended therefore intravenous vancomycin initially given every 12 hours but noted in his medication ministration record to be at the moment 1250 mg intravenously once daily. At the moment, there are no current labs for review. His last vancomycin level on 2018 was 14.2, and his kidney function showed a creatinine of 1.1. The patient had his wound VAC therapy completed. At the moment he is having dressing diego es. He continues to have a left heel ulceration. He continues to have some leg edema. He denies fevers, chills or night sweats. He denies side effects of antibiotics so far. His tentative stop date was scheduled for October 17, 2019. This would account for a total of 6 weeks of treatment from his last debridement on September 06, 2019. PAST MEDICAL HISTORY Patient Active Problem List Diagnosis Atrial fibrillation Essential hypertension Hypotensive episode Alcohol abuse Cirrhosis, Laennec's Bilateral lower extremity edema Hyponatremia Hypokalemia Encounter for monitoring digoxin therapy Encounter for monitoring diuretic therapy Past Surgical History: Procedure Laterality Date FOOT FUSION Left 02/14/2016 HERNIA REPAIR Bilateral 1980s inguinal herniorrhaphies MUSCLE BIOPSY 09/20/2010 disuse atrophy OTHER SURGICAL HISTORY Left 01/20/2016 ORIF ANKLE FRACTURE OTHER SURGICAL HISTORY Bilateral 2015 CATARACT EXTRACTION OTHER SURGICAL HISTORY Left 2011 ORIF HUMERUS FRACTURE OTHER SURGICAL HISTORY 1979 TONSILLECTOMY AND ADENOIDECTOMY 1954 Social History Socioeconomic History Marital status: Single [...] Tobacco Use Smoking status: Former Smoker Packs/day: 0.50 Years: 6.00 Pack years: 3.00 Types: Cigarettes Start date: 06/30/1972 Last attempt to quit: 06/30/1978 Years since quittin.2 Smokeless tobacco: Former User Types: Chew Quit date: 06/30/1979 Substance and Sexual Activity Alcohol use: Not Currently Comment: Alcoholic Drinks/day: states hasnt drank in 2.5 months Drug use: Never Comment: Drug use: No Sexual activity: Not on file Lifestyle Physical activity: Days per week: Not on file Minutes per session: Not on file Stress: Not on file Relationships Social connections: Talks on phone: Not on file Gets together: Not on file Attends advent service: Not on file Active member of club or organization: Not on file Attends meetings of clubs or organizations: Not on file Relationship status: Not on file Intimate partner violence: Fear of current or ex partner: Not on file Emotionally abused: Not on file Physically abused: Not on file Forced sexual activity: Not on file Other Topics Concern Not on file Social History Narrative Not on file IMMUNIZATIONS: There is no immunization history on file for this patient. stated as current, but no records available Family History Problem Relation Age of Onset COPD Mother Stroke Father Other (see comment) Brother Neurologic Disorder - quadriplegic (from injury) Kidney disease Brother Bipolar disorder Daughter MEDICATIONS As per medication administration record. Current Outpatient Medications: acetaminophen (TYLENOL) 500 mg tablet, Take 1,000 mg by mouth., Disp: , Rfl: ascorbic acid (VITAMIN C) 500 mg tablet, Take 500 mg by mouth Daily., Disp: , Rfl: aspirin 81 mg EC tablet, Take 81 mg by mouth Daily., Disp: , Rfl: bisacodyl (DULCOLAX) 10 mg suppository, Place 10 mg rectally Daily as needed for Const ipation., Disp: , Rfl: cyanocobalamin (VITAMIN B-12) 100 MCG tablet, Take 100 mcg by mouth Daily., Disp: , Rf l: digoxin (LANOXIN) 125 mcg tablet, Take 125 mcg by mouth daily., Disp: , Rfl: doxycycline (MONODOX) 100 mg capsule, Take 100 mg by mouth 2 times daily., Disp: , Rfl : ferrous sulfate 325 mg tablet, Take 325 mg by mouth daily (with breakfast)., Disp: , R fl: gabapentin (NEURONTIN) 600 MG tablet, Take 600 mg by mouth nightly. (Patient taking di fferently: Take 600 mg by mouth 3 times daily.), Disp: , Rfl: loperamide (IMODIUM) 2 mg capsule, Take 2 mg by mouth as needed for Diarrhea., Disp: , Rfl: magnesium hydroxide (MILK OF MAGNESIA) 400 mg/5 mL suspension, Take 30 mLs by mouth Da ursula as needed for Constipation., Disp: , Rfl: melatonin 3 mg TABS, Take 1 tablet by mouth nightly., Disp: , Rfl: Multiple Vitamins-Minerals (MENS MULTIVITAMIN PLUS PO), Take 1 tablet by mouth daily., Disp: , Rfl: omeprazole (PRILOSEC) 20 mg capsule, Take 20 mg by mouth 2 times daily (before meals). , Disp: , Rfl: oxyCODONE (ROXICODONE) 5 mg tablet, Take 5 mg by mouth., Disp: , Rfl: polyethylene glycol (MIRALAX) packet, Take 17 g by mouth., Disp: , Rfl: potassium chloride (KLOR-CON M20) 20 mEq ER tablet, Take 1 tablet by mouth 2 times woody ly., Disp: 60 tablet, Rfl: 11 sodium phosphate (FLEET) enema, Place 133 mLs rectally Daily as needed for Constipatio n., Disp: , Rfl: tamsulosin (FLOMAX) 0.4 mg CAPS, Take 0.4 mg by mouth nightly., Disp: , Rfl: thiamine (VITAMIN B-1) 100 mg tablet, Take 100 mg by mouth Daily., Disp: , Rfl: torsemide (DEMADEX) 10 mg tablet, Take 1 tablet by mouth Daily., Disp: 30 tablet, Rfl: 11 Vancomycin HCl 1500 MG/15ML SOLN, Inject 1,500 mg into the vein every 24 hours., Disp: , Rfl: Vancomycin HCl-Dextrose (VANCOMYCIN IN DEXTROSE) 1.5 g/500 mL IVPB, Inject 1.5 g into the vein every 12 hours., Disp: , Rfl: No Known Allergies REVIEW OF SYSTEMS 12+ systems reviewed. Negative except as per history present illness. PHYSICAL EXAM Vital Signs: BP 114/68 | Pulse 107 | Temp 36.9 C (98.4 F) (Tympanic) | Resp 16 | Ht 1.829 m (6') | Wt 88 kg (194 lb) | SpO2 98% | BMI 26.31 kg/m Estimated body mass index is 26.31 kg/m as calculated from the following: Height as of this encounter: 1.829 m (6'). Weight as of this encounter: 88 kg (194 lb). General Appearance: Alert, cooperative, no distress Head: Normocephalic, without obvious abnormality, atraumatic. Lips, mucosa, and tongue normal; dentition normal; no thrush present. Eyes: PERRL, conjunctiva/corneas clear, EOM's intact. Throat: Oropharynx without exudates. Neck: Supple, symmetrical, trachea midline, no adenopathy; thyroid: no enlargement/tendern ess/nodules; no carotid bruit or JVD Back: Symmetric, no curvature, ROM normal, no CVA tenderness Lungs: Clear to auscultation bilaterally, respirations unlabored Chest Wall: No tenderness or deformity Heart: Regular rate and rhythm, S1 and S2 normal, no murmurs, no rub or gallop Abdomen: Soft, non-tender, bowel sounds active all four quadrants, no masses, no organome janie Extremities: Left lower extremity chronic edema, mild hyperemia, surgical wounds are heali ng well, with wound edges almost completely approximated on the medial aspect. No drainage. No pain to palpation. Pulses: Weak on both extremities. Skin: Skin color, texture, turgor normal, no rashes or lesions Lymph nodes: Cervical, supraclavicular, and axillary nodes normal Neurologic: Alert and oriented to time, place and person. CNII-XII intact, normal strength, sensation and reflexes throughout. No focal neurological deficits Venous access: PICC line in place, no signs of infection REVIEW OF LABS: All labs were reviewed. Results for orders placed or performed in visit on 06/30/19 ECG 12 lead Result Value Ref Range VENTRICULAR RATE EKG 98 BPM ATRIAL RATE 122 BPM QRS DURATION 80 ms Q-T INTERVAL 298 ms Q-T INTERVAL (CORRECTED) 380 ms QRS AXIS -33 degrees T AXIS 47 degrees INTERPRETATION TEXT Please refer to Providers office visit note for Providers Interpretation. Confirmed by [facility] [place] Read Only, CLEOPATRA Hardy ([id number]), fashion editor Moses Webster ([id number]) on 06/30/20 2:25:41 PM Office Visit on 06/30/2019 Component Date Value Ref Range Status VENTRICULAR RATE EKG 06/30/2019 98 BPM Final ATRIAL RATE 06/30/2019 122 BPM Final QRS DURATION 06/30/2019 80 ms Final Q-T INTERVAL 06/30/2019 298 ms Final Q-T INTERVAL (CORRECTED) 06/30/2019 380 ms Final QRS AXIS 06/30/2019 -33 degrees Final T AXIS 06/30/2019 47 degrees Final INTERPRETATION TEXT 06/30/2019 Final Value:Please refer to Providers office visit note for Providers Interpreta tion. Confirmed by [facility] [place] Read Only, CLEOPATRA Hardy ([id number]), fashion editor Moses Webster ([id number]) on 06/30/20 2:25:41 PM CrCl cannot be calculated (No successful lab value found.). MICROBIOLOGY Component Name Value Ref Range CULTURE RESULT Staphylococcus aureus, Methicillin Resistant (A) CULTURE RESULT Enterococcus faecalis (A) Specimen Collected on Tissue - Ankle region structure (body structure) 09/04/2019 12:21 PM Result Narrative Culture Report: Methicillin Resistant Staphylococcus aureus Presumptive identification Refer to culture collected 09/04/2019 at 1221, site B for complete identification and susce ptibilities Enterococcus faecalis Unable to continue culture for Propionibacterium due to growth of other organsims. Gram Stain: No squamous epithelial cells Rare polymorphonuclear cells No organisms seen Organism Antibiotic Method Susceptibility Enterococcus faecalis Ampicillin SUSCEPTIBILITY-MADI Sensitive Vancomycin SUSCEPTIBILITY-MADI Sensitive Component Name Value Ref Range CULTURE RESULT Staphylococcus aureus, Methicillin Resistant (A) CULTURE RESULT Corynebacterium striatum (A) Specimen Collected on Tissue - Ankle region structure (body structure) 09/04/2019 12:21 PM Result Narrative Culture Report: Methicillin Resistant Staphylococcus aureus Corynebacterium striatum No Propionibacterium isolated Gram Stain: No squamous epithelial cells Rare polymorphonuclear cells No organisms seen Organism Antibiotic Method Susceptibility Staphylococcus aureus, Methicillin Resistant Vancomycin SUSCEPTIBILITY - E-TEST Sensitive Cefazolin SUSCEPTIBILITY - KB Resistant Clindamycin SUSCEPTIBILITY - KB Intermediate Erythromycin SUSCEPTIBILITY - KB Resistant Oxacillin SUSCEPTIBILITY - KB Resistant Penicillin SUSCEPTIBILITY - KB Resistant Trimethoprim/Sulfa SUSCEPTIBILITY - KB Sensitive Tetracycline SUSCEPTIBILITY - KB Resistant CULTURE RESULT Staphylococcus aureus, Methicillin Resistant (A) CULTURE RESULT Corynebacterium striatum (A) Specimen Collected on Tissue - Ankle region structure (body structure) 09/04/2019 12:21 PM Result Narrative Culture Report: Methicillin Resistant Staphylococcus aureus Corynebacterium striatum No Propionibacterium isolated Gram Stain: No squamous epithelial cells Rare polymorphonuclear cells No organisms seen Organism Antibiotic Method Susceptibility Staphylococcus aureus, Methicillin Resistant Vancomycin SUSCEPTIBILITY - E-TEST Sensitive Cefazolin SUSCEPTIBILITY - KB Resistant Clindamycin SUSCEPTIBILITY - KB Intermediate Erythromycin SUSCEPTIBILITY - KB Resistant Oxacillin SUSCEPTIBILITY - KB Resistant Penicillin SUSCEPTIBILITY - KB Resistant Trimethoprim/Sulfa SUSCEPTIBILITY - KB Sensitive Tetracycline SUSCEPTIBILITY - KB ASSESSMENT AND RECOMMENDATIONS The patient is a 69 y.o.-year-old male with the following problems: Visit Diagnoses and Associated Orders: Monty was seen today for establish care. Diagnoses and all orders for this visit: Necrotizing soft tissue infection Necrotizing fasciitis of lower leg (HCC) Infected orthopedic implant, initial encounter ([facility]) Polymicrobial bacterial infection skilled nursing (current) use of antibiotics - CBC with Differential; Standing - Comprehensive Metabolic Panel; Standing - Vancomycin, Trough; Standing - C-Reactive Protein; Standing - Sedimentation Rate; Standing MRSA infection - CBC with Differential; Standing - Comprehensive Metabolic Panel; Standing - Vancomycin, Trough; Standing - C-Reactive Protein; Standing - Sedimentation Rate; Standing Enterococcal infection Sequela of Corynebacterium infection The patient presents with a deep-seated infection of the left foot and ankle, reportedly ne crotizing fasciitis, status post surgical debridement, fasciotomy, and appropriate antibioti c therapy. Cultures revealed MRSA, Enterococcus faecalis as well as Corynebacterium striatu m. The patient is clinically responding well to intravenous vancomycin. I do not have recent labs for review and I have written orders for the patient to get CBC, CMP, vancomycin trough level twice weekly Mondays and and also weekly sedimentatio n rate and C-reactive protein. Goal trough for the patient is between 15 and 20. Monitor closely his kidney function. All the orthopedic hardware has been removed and therefore the patient should receive minim um of 6 weeks of antibiotic therapy, perhaps 8 weeks depending on his clinical response. He will return to clinic in 2 weeks to determine his final duration of therapy. He will continue also with PICC line care as well as wound care to the left lower extremity . He has a persistent left heel ulceration. Side effects of medications, duration of therapy, prognosis and importance of adherence wer e discussed with the patient today. Follow up in 2 weeks. Liang Vogel MD, MPH Infectious Diseases 09/29/19 document ed in this encounter Plan of Treatment + +------+--------+ + + | Name | Type | Priori | Associated Diagnoses | Order Schedule | | | | ty | | | + +------+--------+ + + | CBC with | 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 | long term care pharmacist | Twice weekly for 4 | | Differential | | e | (current) use of | Occurrences starting | | | | | antibiotics MRSA | 09/29/2019 until | | | | | infection | 09/29/2020 | + +------+--------+ + + | Comprehensive | 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 | skilled nursing | Twice weekly for 4 | | Metabolic Panel | | e | (current) use of | Occurrences starting | | | | | antibiotics MRSA | 09/29/2019 until | | | | | infection | 09/29/2020 | + +------+--------+ + + | Vancomycin, Trough | 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 | skilled nursing | Twice weekly for 4 | | | | e | (current) use of | Occurrences starting | | | | | antibiotics MRSA | 09/29/2019 until | | | | | infection | 09/29/2020 | + +------+--------+ + + | C-Reactive Protein | 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 | long term care pharmacist | Weekly for 2 | | | | e | (current) use of | Occurrences starting | | | | | antibiotics MRSA | 09/29/2019 until | | | | | infection | 09/29/2020 | + +------+--------+ + + | Sedimentation Rate | 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 | skilled nursing | Weekly for 2 | | | | e | (current) use of | Occurrences starting | | | | | antibiotics MRSA | 09/29/2019 until | | | | | infection | 09/29/2020 | + +------+--------+ + + documented as of this encounter Visit Diagnoses + + | Diagnosis | + + | Necrotizing soft tissue infection - Primary | + + | Necrotizing fasciitis of lower leg (HCC) | + + | Infected orthopedic implant, initial encounter (HCC) | + + | Polymicrobial bacterial infection | + + | skilled nursing (current) use of antibiotics | + + | MRSA infection Methicillin resistant Staphylococcus aureus in conditions classified | | elsewhere and of unspecified site | + + | Enterococcal infection Streptococcus infection in conditions classified elsewhere and | | of unspecified site, group D | + + | Sequela of Corynebacterium infection | + + documented in this encounter
--- OUTSIDE RECORDS SUMMARY | ~2020-06-01 | XMS | Clinical Summary ---
Demographics + + + | Address | [address] | | | [place] [address] | + + + | Home Phone | | + + + | Preferred Language | Unknown | + + + | Marital Status | Single | + + + | Jew Affiliation | NRP | + + + [...] Team Providers + +------+ + | Care Delicatessen Store Manager Name | Role | Phone | + +------+ + | Dustin Perez MD | PCP | | + +------+ + Source Comments RADHA is fully live on both [facility] Ambulatory and [facility] InPatient.[facility] Allergies No Known Allergies Medications + + [...] Left: | JULISA | | 05/11/ | [id number] | | Gentamicin - | | Foot | | | 2020 | 355 / | | [id number]: Qty: 2 on | | | | | | /[id number] | | 09/04/2019 by Elan, | | | | | | [id number] | | Olivier Mills MD at [facility] | | | | | | [...] | | | | | | | [address] | | + +--------+ +--------+ + +--------+ | MODA MEDICARE | MODA | xxxxxxxxx | 11/01/ | [phone] | [address] | [address] | | SUPPLEMENT | MEDICA | | 2015-P | 4 | [id number] | | | | RE | | resent | | [place], | | | | SUPPLE | | | | [place] [address] | | | | MENT | | [...] | 1950 | [phone] | [place] [address] | | | ursula | | | [...]
--- OUTSIDE RECORDS SUMMARY | ~2020-06-01 | XMS | Encounter Summary ---
Demographics + + + | Address | [address] | | | [place] [address] | + + + | Home Phone [...] + + + | Author | [facility] | + + + | Organization | [facility] | + + + | [...] Team Providers + +------+ + | Care Police Service Technician Name | Role | Phone | [...] [address] | | | | | [address] | [address] | | | | | Loop Physician's | [place], [place] | | | | | [address] | [address] | | | | | [place], [place] | [phone] | | | | | [address] | | | | | | [phone] | | | +--------+ + + + [...]
--- OUTSIDE RECORDS SUMMARY | ~2020-06-01 | XMS | Encounter Summary ---
Demographics + + + | Address | [address] | | | [place] [address] | + + + | Home Phone [...] Team Providers + +------+ + | Care Robotics Technician Name | Role | Phone | [...] | | | | Loop Physician's | [place], [place] | | | | | Vikas, [facility] floor | [address] | | | | | [place], [place] | [phone] | | | | | [address] | | | | | | [phone] | | | +--------+ + + + [...]
--- OUTSIDE RECORDS SUMMARY | ~2020-06-01 | XMS | Encounter Summary ---
Demographics + + + | Address | [address] | | | [place] [address] | + + + | Home Phone [...] Team Providers + +------+ + | Care Refrigerator Tester Name | Role | Phone | [...] | | | [address] | [address] [place], [place] | | | | | [place], [place] | [address] | | | | | [address] | | | | | | [phone] | | | +--------+ + + + [...] MV A Elliot: 0.22 m/s MV Dec Benning[place]: | | | 8.95 m/s2 MV DecT: [...] | 24.30 mmHg TR Vmax: 2.46 m/s Grinding Machine Operator Automatic: BJ Authenticated | | | by: JOHN CRAFT MD Report Date/Time: -- 33_[id number]_06:20:5 | | + + + + + [...] | | cmLVPWd: 1.11 cmLVOT Area: 4.04 qd8LFFH Diam: 2.27 cm%FS: 26.15 %EF(Teich): | | [...] | Index (A-L): 35.33 ml/m2LAAs A2C: 21.87 ik1HWADY A-L A2C: 72.13 mlLALs A2C: 5.63 | | cmLAAs A4C: 21.22 ps5DFWSI A-L A4C: 65.44 mlLALs A4C: 5.84 cmRAAs: 19.08 | | td1CCSRL A-L: 51.71 mlRAESV MOD: 49.81 mlRALs: 5.98 cmTAPSE: 2.44 cmAV maxPG: | | 9.91 mmHgAV meanP.88 mmHgAV Vmax: 1.57 m/Brenda Vmean: 1.15 m/Brenda VTI: 31.23 | | cmAVA Vmax: 1.51 cm2AVA (VTI): 1.45 tr4WPFK maxP.38 mmHgLVOT meanP.74 | | mmHgLVSI Dopp: 22.93 ml/m2LVSV Dopp: 45.40 mlLVOT Vmax: 0.58 m/sLVOT Vmean: 0.40 | | m/sLVOT VTI: 11.22 cmMV A Elliot: 0.22 m/sMV Dec Benning[place]: 8.95 m/s2MV DecT: 108.45 | | msMV E Elliot: 0.97 m/sMV E/A Ratio: 4.26MV PHT: 31.45 msMVA By PHT: 6.99 yl4Kphdtc | | e': 0.08 m/sSeptal E/e': 12.09Lateral e': 0.10 m/sLateral E/e': 9.28RAP: 5 | | mmHgRVSP: 29.30 mmHgTR maxP.30 mmHgTR Vmax: 2.46 m/s Grinding Machine Operator Automatic: | | DHAuthenticated by: Dagoberto TORIBIO Date/Time: -- 77_[id number]_29:20:5 | | IMPRESSION: 1. Overall left ventricular [...] A Elliot: 0.22 m/s | |MV Dec Benning[place]: 8.95 m/s2 | |MV DecT: 108.45 ms [...] |TR Vmax: 2.46 m/s | | | |Grinding Machine Operator Automatic: | |Authenticated by: JOHN CRAFT MD | |Report Date/Time: -- 91_[id number]_13:20:5 | | | |IMPRESSION: | |1. Overall [...]
--- OUTSIDE RECORDS SUMMARY | ~2020-06-01 | XMS | Encounter Summary ---
Demographics + + + | Address | [address] | | | [place] [address] | + + + | Home Phone | | + + + | Preferred Language | Unknown | + + + | Marital Status | Single | + + + | Denominational Affiliation | NRP | + + + | Race | White | + + + | Ethnic Group | Not or | + + + Author + + + | Author | [facility] | + + + | Organization | [facility] | + + + | Address [...] Team Providers + +------+ + | Care Cad Intern Name | Role | Phone | [...] | 2020 | cheduled | [facility] [place] | [address] | | | | | for Health and | [facility] [place] | | | | | Healing [address] | [address] | | | | | Ave [place] for | [phone] | | | | | Health and Healing, | | | | | | [facility] | | | | | | Floor [place], [place] | | | | | | [address] | | | | | | [phone] | | | +--------+ + + + [...] might be different fro joseph the original. [facility] Orthopaedic Trauma Clinic Today's date: 10/14/2019 [...] doctor locally. . He is still taking [facility] woun d care. The wounds are [...] 3 views Cory Carmen MD ORTHOPAEDICS AT [facility] [address] Mailcode: [address] [address] The patients encounter was accomplished via a telephone call today due to COVID-19 precauti onary measures to limit the patient's unnecessary exposure. Patient agrees to a telephone en counter for today's visit. They understand they may be responsible for the balance after ins urance processes the claim. The visit took place via telephone when I was located at a [facility] site at [facility]. The patient stated they were located at their home in [place] at the time o f the telephone [...]
--- OUTSIDE RECORDS SUMMARY | ~2020-06-01 | XMS | Encounter Summary ---
Demographics + + + | Address | [address] | | | [place] [address] | + + + | Home Phone | | + + + | Preferred Language | Unknown | + + + | Marital Status | Single | + + + | Pentecostal Affiliation | NRP | + + + | Race | White | + + + | Ethnic Group | Not or | + + + Author + + + | Author | [facility] | + + + | Organization | [facility] | + + + | [...] Team Providers + +------+ + | Care Messaging Architect Name | Role | Phone | + [...] | | | [address] | [address] | (vancomycin trough); | | | | Loop Physician's | [place], [place] | Infectious disease | | | | Vikas, [facility] floor | [address] | | | | | [place], [place] | [phone] | | | | | [address] | | | | | | [phone] | | | +--------+ + + + [...]
--- OUTSIDE RECORDS SUMMARY | ~2020-06-01 | XMS | Encounter Summary ---
Demographics + + + | Address | [address] | | | [place] [address] | + + + | Home Phone [...] Team Providers + +------+ + | Care Dock Or Pier Laborer Name | Role | Phone | + [...] | | | [address] | [address] | (vancomycin trough); | | | | Loop Physician's | [place], [place] | Infectious disease | | | | Vikas, [facility] floor | [address] | | | | | [place], [place] | [phone] | | | | | [address] | | | | | | [phone] | | | +--------+ + + + [...]
--- OUTSIDE RECORDS SUMMARY | ~2020-06-01 | XMS | Encounter Summary ---
Demographics + + + | Address | [address] | | | [place] [address] | + + + | Home Phone [...] Team Providers + +------+ + | Care Avionics Engineer Name | Role | Phone | [...] | | | | Loop Physician's | [place], [place] | | | | | Vikas, [facility] floor | [address] | | | | | [place], [place] | [phone] | | | | | [address] | | | | | | [phone] | | | +--------+ + + + [...]
--- OUTSIDE RECORDS SUMMARY | ~2020-06-01 | XMS | Encounter Summary ---
Demographics + + + | Address | [address] | | | [place] [address] | + + + | Home Phone [...] + + + | Author | [facility] | + + + | Organization | [facility] | + + + | Address | Unknown | + + + | Phone | Unavailable | + + + Support + + +---------+ + | Name | Relationship | Address | Phone | + + +---------+ + | Nroberto An | ECON | Unknown | | + + +---------+ + | Josué An | ECON | Unknown | | + + +---------+ + Care Team Providers + +------+ + | Care Import Export Coordinator Name | Role | Phone | [...] | | | | | Bogdan [facility] | [address] | | | | | Hospital Admitting | [place], [place] | | | | | Desk Located on the | [address] | | | | | 9 floor | [phone] | | | | | [place], [place] | | | | | | [address] | | | +--------+ + + + [...] | on | Medial, Lower; leg | aCry Jones RN | | +--------+ + + [...] | | Oral; Cuffed; 09/06/19; 1353 | TRANSFILL TECHNICIAN | TRANSFILL TECHNICIAN | +--------+ + + + | Periph | 09/06/19; 1141; Sharif Gerber TRANSFILL TECHNICIAN; | 09/06/19 1141 by | 09/08/19 1256 by | | eral | Right; Hand; 18 g; Positive; | Rolanda Gerber, | Blair Brewer RN | | IV | 09/08/19; 1256; Catheter damage, | TRANSFILL TECHNICIAN | | | | Site problems, No [...]
--- OUTSIDE RECORDS SUMMARY | ~2020-06-01 | XMS | Encounter Summary ---
Demographics + + + | Address | [address] | | | [place] [address] | + + + | Home Phone | | + + + | Preferred Language | Unknown | + + + | Marital Status | Single | + + + | Anabaptist Affiliation | NRP | + + + [...] Team Providers + +------+ + | Care Parking Enforcement Technician Name | Role | Phone | [...] | | | | Loop Physician's | [place], [place] | | | | | Vikas, [facility] floor | [address] | | | | | [place], [place] | [phone] | | | | | [address] | | | | | | [phone] | | | +--------+ + + + [...]
--- OUTSIDE RECORDS SUMMARY | ~2020-06-01 | XMS | Encounter Summary ---
Demographics + + + | Address | [address] | | | [place] [address] | + + + | Home Phone | | + + + | Preferred Language | Unknown | + + + | Marital Status | Single | + + + | Hinduism Affiliation | NRP | + + + [...] Team Providers + +------+ + | Care Triage Assistant Name | Role | Phone | [...]
--- OUTSIDE RECORDS SUMMARY | ~2020-06-01 | XMS | Encounter Summary ---
Demographics + + + | Address | [address] | | | [place] [address] | + + + | Home Phone | | + + + | Preferred Language | Unknown | + + + | Marital Status | Single | + + + | Quaker Affiliation | NRP | + + + [...] Team Providers + +------+ + | Care Ecological Technical Officer Name | Role | Phone | [...] | | | | Loop Physician's | [place], [place] | (Creatinine); | | | | Vikas, 3rd floor | [address] | Infectious disease | | | | [place], [place] | [phone] | | | | | [address] | | | | | | [phone] | | | +--------+ + + + [...]
--- OUTSIDE RECORDS SUMMARY | ~2020-06-01 | XMS | Encounter Summary ---
Demographics + + + | Address | [address] | | | [place] [address] | + + + | Home Phone | | + + + | Preferred Language | Unknown | + + + | Marital Status | Single | + + + | Evangelical Affiliation | NRP | + + + [...] Team Providers + +------+ + | Care Audiovisual Tech Name | Role | Phone | [...] | | | | | Zulma Mcfadden [place], | | | | | | [place] [address] | | | +--------+--------+ + + + [...]
--- OUTSIDE RECORDS SUMMARY | ~2020-06-01 | XMS | Encounter Summary ---
Demographics + + + | Address | [address] | | | [place] [address] | + + + | Home Phone [...] Team Providers + +------+ + | Care Test Desk Supervisor Name | Role | Phone | [...] | | | [address] | [facility] | disease; Transfer of | | | | Loop Physician's | [place], [place] | Care | | | | [address] | [address] | | | | | [place], [place] | [phone] | | | | | [address] | | | | | | [phone] | | | +--------+ + + + [...]
--- OUTSIDE RECORDS SUMMARY | ~2020-06-01 | XMS | Encounter Summary ---
Demographics + + + | Address | [address] | | | [place] [address] | + + + | Home Phone [...] Team Providers + +------+ + | Care Planting Material Unloader Name | Role | Phone | + [...] Provider Unknown | | | | | [place], [place] | [phone] | | | | | [address] | | | | | | [phone] | | | +--------+ + + + [...]
--- OUTSIDE RECORDS SUMMARY | ~2020-06-01 | XMS | Encounter Summary ---
Demographics + + + | Address | [address] | | | [place] [address] | + + + | Home Phone [...] + + + | Author | [facility] | | | and [place] | + + + | Organization | [facility] | | [...] Team Providers + +------+ + | Care Business Development Coordinator Name | Role | Phone | [...] Provider Unknown | | | | | [place], [place] | [phone] | | | | | [address] | | | | | | [phone] | | | +--------+ + + + [...]
--- OUTSIDE RECORDS SUMMARY | ~2020-06-01 | XMS | Encounter Summary ---
Demographics + + + | Address | [address] | | | [place] [address] | + + + | Home Phone | | + + + | Preferred Language | Unknown | + + + | Marital Status | Single | + + + | Jain Affiliation | NRP | + + + | Race | White | + + + | Ethnic Group | Not or | + + + Author + + + | Author | [facility] | + + + | Organization | [facility] | + + + | Address [...] Team Providers + +------+ + | Care Ceo & Founder Name | Role | Phone | + [...] | | | | Bogdan [facility] | [address] | | | | | Hospital Admitting | [place], [place] | | | | | Desk Located on the | [address] | | | | | 9 floor | [phone] | | | | | [place], [place] | | | | | | [address] | | | +--------+ + + + [...] | | Oral; Cuffed; 09/06/19; 1353 | CLINICAL LAB TECHNOLOGIST | CLINICAL LAB TECHNOLOGIST | +--------+ + + + | Periph | 09/06/19; 1141; Sharif Gerber CLINICAL LAB TECHNOLOGIST; | 09/06/19 1141 by | 09/08/19 1256 by | | eral | Right; Hand; 18 g; Positive; | Rolanda Gerber, | Blair Brewer RN | | IV | 09/08/19; 1256; Catheter damage, | CLINICAL LAB TECHNOLOGIST | | | | Site problems, No [...]
--- OUTSIDE RECORDS SUMMARY | ~2020-06-01 | XMS | Encounter Summary ---
Demographics + + + | Address | [address] | | | [place] [address] | + + + | Home Phone [...] Team Providers + +------+ + | Care Ocean Export Account Manager Name | Role | Phone [...] [address]azaro | | | | | Bogdan [facility] | [address] | | | | | Hospital Admitting | [place], [place] | | | | | Desk Located on the | [address] | | | | | 9th floor | [phone] | | | | | [place], [place] | | | | | | [address] | Fannie Duckworth, | | | | | | [address] | | | | | | [address] | | | | | | [place], [place] | | | | | | [address] | | | | | | [phone] | | | | | | | [...] 7.5; | Fannie Duckworth MD | Fannie Duckowrth MD | | | Oral; Cuffed; 09/04/19; [...]
--- OUTSIDE RECORDS SUMMARY | ~2020-06-01 | XMS | Encounter Summary ---
Demographics + + + | Address | [address] | | | [place] [address] | + + + | Home Phone [...] + + + | Author | [facility] | + + + | Organization | [facility] | + + + | [...] Team Providers + +------+ + | Care Dictaphone Mechanic Name | Role | Phone | [...] Rd | | | | | | [place], [place] | | | | | | [address] | | | +--------+ + + + [...] | | | | | | of [id number] | | | | | | days. [...] Dexter | | | | | | [facility],[place], | | | | | | [place], delivered via | | | | | | high school assistant football coach on moist gauze | | | | [...] + + + + + | [facility] | [address] | [place] [address] | | | PATHOLOGY | [address] | | | + + + + + documented in this encounter Visit Diagnoses Not on filedocumented in this encounter
--- OUTSIDE RECORDS SUMMARY | ~2020-06-01 | XMS | Encounter Summary ---
Demographics + + + | Address | [address] | | | [place] [address] | + + + | Home Phone | | + + + | Preferred Language | Unknown | + + + | Marital Status | Single | + + + | Tenriism Affiliation | NRP | + + + [...] Team Providers + +------+ + | Care Hydro Plant Site Manager Name | Role | Phone | [...] | | | | | unspecified | [place], [place] | | | | | | laterality | [address] | | | | | | Procedures | Phone: | | | | | | PHYSICAL | [phone] | | | | | | THERAPY | Fax: | | | | | | REFERRAL | [phone] | | + +--------+ + + + [...] Rd | | | | | | [place], [place] | [place], [place] | | | | | | [address] | [address] | | | | | | | Phone: | | | | | | | [phone] | | | | | | | Fax: | | | | | | | [phone] | +--------+--------+ + + + + Encounter [...] | | Healing [address] | [address] | unspecified | | | | [address] for | [phone] | laterality (Primary | | | | Health and Healing, | | Dx) | | | | | | | | | | Floor [place], [place] | | | | | | [address] | | | | | | [phone] | | | +--------+---------+ + + + [...] might be different fro joseph the original. [facility] Orthopaedic Trauma Clinic Today's date: 10/14/2019 Orthopaedic Diagnoses: MRSA osteomyelitis of left calc/talus/tibia, Failed ankle fusion Surgeries: - 09/04/2019: LLE I&D, HWR of hindfoot IMN, Abx IMN, 4 compartment fasciotomies - 09/06/2019: LLE I&D, fasciotomy closure S: Mr. Monty An is a 69 year old male, he is now ~6wks since surgery. Currently he is NWB. He has remained at a [facility] facility following [facility] discharge for IV-Vanc and wound care. He [...] as listed. Cory Carmen MD ORTHOPAEDICS AT [facility] [address] Mailcode: [address] [place] [address] Orders Placed This Encounter X-RAY [...]
[~2020-06-01 11:08] MED LIST changes: +KEFLEX500 MG PO; +LASIX40 MG PO
--- OUTSIDE RECORDS SUMMARY | 2020-06-01 11:10 | XMS ---
PreManage Notification: DIANE BOTELLO Security Topographical Drafter Events No recent Security Events currently on file CRITERIA MET - [facility] - 2 Visits in 30 Days CARE PROVIDERS Name Unknown [facility] Facility Current PHONE: [phone] [facility] 09/11/2018-Current PHONE: [phone] Alcira has no Care Guidelines for this patient. Shadia VISIT COUNT (12 MO.) 1 [facility] and [address] TOTAL 4 NOTE: Visits indicate total known visits. ED/UCC VISIT TRACKING (12 MO.) 06/01/2020 11:09 [facility] [place] TYPE: Emergency COMPLAINT: - LEG PAIN 05/24/2020 12:32 [facility] [place] TYPE: Emergency COMPLAINT: - LEG PAIN DIAGNOSES: - Localized edema - Heart failure, unspecified - Type 2 diabetes mellitus with diabetic polyneuropathy - Pain in right lower leg - Hypertensive heart disease with heart failure - alf (current) use of aspirin - Other custodial (current) drug therapy - Unspecified atrial fibrillation 09/03/2019 18:13 [facility] TYPE: Emergency DIAGNOSES: 33248. cellulitis large ulcer, left lower extremity 21566. Other specified soft tissue disorders 63005. Infection and inflammatory reaction due to other internal ort 03868. 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 Cutaneous abscess, unspecified 00493. Other specified soft tissue disorders 44629. Osteomyelitis, unspecified 95271. Infection and inflammatory reaction due to other internal ort [email or web address]
== END 2020-06-01 19:03 | disposition short-term general hospital (02) ==
LOC: ED 11:08
DX: S82.891D Other fracture of right lower leg, subsequent encounter for closed fracture with routine healing (principal); I10 Essential (primary) hypertension; E11.40 Type 2 diabetes mellitus with diabetic neuropathy, unspecified; I48.91 Unspecified atrial fibrillation; Z79.899 Other long term (current) drug therapy; Z79.82 Long term (current) use of aspirin
CPT/HCPCS: 73610; 80053; 85025; 99284-25

== ENCOUNTER 2020-08-04 11:31 | Emergency (ER) | payer MEDICARE, OTHER ==
[~2020-08-04] VITALS: Ht 182.9 cm; Wt 88.5 kg
--- OUTSIDE RECORDS SUMMARY | ~2020-08-04 | XMS | Encounter Summary ---
Demographics + + + | Address | [address] | | | [place] [address] | + + + | Home Phone | | + + + | Preferred Language | Unknown | + + + | Marital Status | Single | + + + | Methodist Affiliation | NRP | + + + | Race | White | + + + | Ethnic Group | Not or | + + + Author + + + | Author | [facility] | + + + | Organization | [facility] | + + + | Address | Unknown | + + + | Phone | Unavailable | + + + Support + + +---------+ + | Name | Relationship | Address | Phone | + + +---------+ + | Norberto An | ECON | Unknown | | + + +---------+ + | Josué An | ECON | Unknown | | + + +---------+ + Care Team Providers + +------+ + | Care Dietetics Director Name | Role | Phone | + +------+ + | Dustin Perez MD | PCP | | + +------+ + Reason for Visit +--------+--------+ + | Reason | Onset | Comments | | | Date | | +--------+--------+ + | Other | 07/15/ | SET UP PHONE CALL WITH SARWAT | | | 2020 | | +--------+--------+ + Encounter Details +--------+ + + + + | Date | Type | Department | Care Team | Description | +--------+ + + + + | 07/15/ | Telephone | Orthopaedics | Marty Fam, | Other (SET UP PHONE | | 2020 | | [facility] | MD Bart Sal | CALL WITH [facility]) | | | | for Health and | [place], [place] | | | | | [address] | [address] | | | | | [facility] for | [phone] | | | | | Health and Healing, | | | | | | [facility] | | | | | | [place], [place] | | | | | | [address] | | | | | | [phone] | | | +--------+ + + + + Social History + + + +--------+------+ | Tobacco Use | Types | Packs/Day | Years | Date | | | | | Used | | + + + +--------+------+ | Former Smoker | Cigarettes | 1 | 8 | | + + + +--------+------+ + +---+---+---+ | Smokeless Tobacco: | | | | | Never Used | | | | + +---+---+---+ + + +---------+ + | Alcohol Use | Drinks/Week | oz/Week | Comments | + + +---------+ + | Yes | | | daily, 6 pack of | | | | | beer, denies hx of | | | | | withdrawal, last | | | | | drink yesterday | | | | | evening | + + +---------+ + + + + | Sex Assigned at | Date Recorded | | | | + + + | Not on file | | + + + documented as of this encounter Functional Status + + + + | Functional Status | Response | Date of Assessment | + + + + | Because of a physical, mental, or emotional | Yes - Chronic | 06/03/2020 | | condition, do you have serious difficulty | neuropathy - can | | | doing errands alone such as visiting the | only walk ~1 block. | | | doctor? | | | + + + + + + + + | Cognitive Status | Response | Date of Assessment | + + + + | Because of a physical, mental, or emotional | No | 06/03/2020 | | condition, do you have serious difficulty | | | | concentrating, remembering, or making | | | | decisions? (5 years old or older) | | | + + + + documented as of this encounter Miscellaneous Notes Telephone Encounter - Trupti Boyle - 07/16/2020 9:33 AM PDTI've called Camille from Dr. Manisha Coffman Office to inquire the reason/need for MD call. Patient has been seen pt for post- op care was last seen in clinic yesterday. Dr. Coffman is concerned of right medial ankle woun d, skin is broken down. Patient is seeing the wound clinic twice a week and scheduled to see PA next 07/22/2020. I've asked Camille to send us a photo of the wound during pt's v isit next week. Dr. Coffman will be out for a month pt will be seeing PA. Ortho email provided. elephone Encounter - Tejas Goldman - 07/15/2020 10:15 AM PDTPatient: Monty An Last Visit: 05/04/20 at 3:31 pm Next Visit: No future appointments scheduled in Orthopedics. Recent Surgery: Yes- 06-08-2020 Procedure: Right Hindfoot Nailing Provider: Sarwat Reason for call: Camille from Dr Surya Coffman Office called to say that Dr Coffman would like to set up a phone call with Dr Fam regarding the patient. Please advise Dr Surya Coffman Ph. 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
--- OUTSIDE RECORDS SUMMARY | ~2020-08-04 | XMS | Encounter Summary ---
Demographics + + + | Address | [address] | | | [place] [address] | + + + | Home Phone | | + + + | Preferred Language | Unknown | + + + | Marital Status | Single | + + + | Jainism Affiliation | NRP | + + + | Race | White | + + + | Ethnic Group | Not or | + + + Author + + + | Author | [facility] | + + + | Organization | [facility] | + + + | Address | [...] Team Providers + +------+ + | Care Hand Coremaker Name | Role | Phone | + +------+ + | Dustin Perez MD | PCP | | + +------+ + Encounter Details +--------+ + + + + | Date | Type | Department | Care Team | Description | +--------+ + + + + | 06/08/ | Procedure | [id number] | | | | 2020 | Pass | [address] | | | | | | [address] [facility] | | | | | | Hospital Admitting | | | | | | Desk Located on the | | | | | | 9th floor | | | | | | [place], [place] | | | | | | [phone] | | | +--------+ + + + [...] on file | | + + + + + + + | COVID-19 Exposure | Response | Date Recorded | + + + + | In the last month, have you been in contact | No / Unsure | 06/01/2020 10:19 PM | | with someone who was confirmed or | | PDT | | suspected to have Coronavirus / COVID-19? | | | + + + + [...] + + documented as of this encounter Plan of Treatment Not on filedocumented as [...]
--- OUTSIDE RECORDS SUMMARY | ~2020-08-04 | XMS | Encounter Summary ---
Demographics + + + | Address | [id number] | | | [place] [address] | + + + | Home Phone | | + + + | Preferred Language | Unknown | + + + | Marital Status | Single | + + + | Gnosticism Affiliation | NRP | + + + | Race | White | + + + | Ethnic Group | Not or | + + + Author + + + | Author | [facility] | + + + | Organization | [facility] | + + + | [...] Team Providers + +------+ + | Care Double End Tenoner Setter Name | Role | Phone | + +------+ + | Rio Huerta MD | PCP | | + +------+ + Reason for Referral Occupational Therapy (Routine) + +--------+ + + + + | Status | Reason | Specialty | Diagnoses / | Referred By | Referred To | | | | | Procedures | Contact | Contact | + +--------+ + + + + | New Request | | Occupational | Diagnoses | Aguilar, | External | | | | Therapy | Closed | MD Lamine | Order | | | | | trimalleolar | [address] | | | | | | fracture of | [address] | | | | | | right | Rd | | | | | | ankle, | [place], [place] | | | | | | initial | [address] | | | | | | encounter | Phone: | | | | | | Procedures | [phone] | | | | | | OCCUPATIONAL | Fax: | | | | | | THERAPY | [phone] | | | | | | REFERRAL | | | + +--------+ + + + + Physical Therapy (Routine) + +--------+ + + + + | Status | Reason | Specialty | Diagnoses / | Referred By | Referred To | | | | | Procedures | Contact | Contact | + +--------+ + + + + | New Request | | Physical | Diagnoses | Aguilar, | External | | | | Therapy | Closed | MD Lamine | Order | | | | | trimalleolar | [address] | | | | | | fracture of | [address] | | | | | | right | Rd | | | | | | ankle, | [place], [place] | | | | | | initial | [address] | | | | | | encounter | Phone: | | | | | | Procedures | [phone] | | | | | | PHYSICAL | Fax: | | | | | | THERAPY | [phone] | | | | | | REFERRAL | | | + +--------+ + + + + Reason for Visit + + + | Reason | Comments | + + + | Ankle Injury | | + + + AUTH/CERT +--------+--------+ + + + + | [...] | +--------+ + + + + | 06/01/ | Hospital | [facility] [address] | Claudy Flores, | | | 2019 - | Encounter | [address] | MD Guillen, | | | | | Vikas Huerta, | MD [address] | | | 06/11/ | | [place] [address] | [address] [facility] | | | 2019 | | [phone] | Rd [place], [place] | | | | | | [address] | | | | | | [phone] | | | | | | | | | | | | Dago Mcdowell MD | | | | | | [address] | | | | | | [address] | | | | | | [place], [place] | | | | | | [address] | | | | | | [phone] | | | | | | | | | | | | Malik Mcmillan, | | | | | | [address] | | | | | | [address] | | | | | | [place], [place] | | | | | | [address] | | | | | | [phone] | | | | | | | [...] + + + | Blood Pressure | 111/57 | 06/11/2020 4:01 AM | | | | | PDT | | + + + + + | Pulse | 66 | 06/11/2020 4:01 AM | | | | | PDT | | + + + + + | Temperature | 36.5 C (97.7 F) | 06/11/2020 4:01 AM | | | | | PDT | | + + + + + | Respiratory Rate | 16 | 06/10/2020 5:53 AM | | | | | PDT | | + + + + + | Oxygen Saturation | 97% | 06/11/2020 4:01 AM | | | | | PDT | | + + + + + | Inhaled Oxygen | - | - | | | Concentration | | | | + + + + + | Weight | 97.1 kg (214 lb 1.1 | 06/11/2020 5:37 AM | | | | oz) | PDT | | + + + + + | Height | 180.3 cm (5' 11") | 06/01/2020 10:18 PM | | | | | PDT | | + + + + + | Body Mass Index | 29.86 | 06/01/2020 10:18 PM | | | | | PDT | | + + + + + documented in this encounter Functional Status + + + [...] + + documented as of this encounter Discharge Summaries Lamine Aguilar MD - 06/11/2020 10:17 AM PDTFormatting of this note might be different from linus pimentel. DISCHARGE SUMMARY AND INSTRUCTIONS Patient: Diane An Admission Date: 06/01/2020 Discharge Date: 06/11/20 Attending Physician: Dr. 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 male with a history of the above diagnosis(es), admitted on 05/13 for the procedure(s) described above. The inpatient stay related to this procedure(s) took an uncomplicated course with the follo wing exceptions: None The patient was followed closely by the attending providers, resident providers, and medica l/nursing staff. Post operatively, the patient was admitted to the hospital for convalescent care. Pain con trol was managed with medication. The patient made appropriate gains toward activity and fu nctional goals while an inpatient. While on the hospital floor, the patient tolerated intake sufficient to maintain nutrition and hydration. The surgical wound remained clean, dry, and intact without signs concerning f or infection. The patient was felt appropriate for discharge to Senior Living Facility: [facility], and the patient and/or family members agree with this course of action. ----- Diet: Diet Regular Regular diet- There are no restrictions to your diet. You may eat or drink whatever you pr efer, though healthy food choices are recommended. ----- Activity: Non-weight bearing RLE. WBAT LLE ----- ORTHOPAEDIC CLINIC FOLLOW-UP INSTRUCTIONS Imaging at Followup Visit: X ray 3 V left ankle at 6 week Special Instructions: PPD for Facility Administer PPD upon arrival Other Discharge Orders and Instructions Certification of Medical Necessity for Ongoing Care in a SNF "I certify that post-hospital inpatient intermediate facility care is medically necessar y on a continuing basis for treatment of the same condition for which inpatient acute hospit al care was received." 1. MATT () OFFICER TO FOLLOW 2. PPD PER FACILITY PROTOCOL upon arrival 3. PHYSICAL THERAPY evaluate and treat twice daily 4. OCCUPATIONAL THERAPY evaluate and treat 5. SPEECH THERAPY evaluate and treat as appropriate. 6. VITAL SIGNS per protocol. OTHER DISCHARGE ORDERS & INSTRUCTIONS Patient to have 3 week follow up with local orthopedic surgeon. He should have his splint r emoved and incisions inspected. Suture removal at discretion of local orthopedic surgeon. 1. If skin healed, sutures removed and placed in short leg fiberglass(or equivalent) cast f or 3 weeks 2. Cast removed at 6 weeks and skin examined. 3. Follow up in [place] at 6 weeks for check with surgeon Dr. Fam If local surgeon, Dr. Coffman, unable to provide follow up, please have patient follow up in [place] with Dr. Fam's office. Postoperative Discharge Instructions Activity: * Walk and stand using crutches or walker as needed for support and pain relief. * Weightbearing: Non-weight bearing Right leg: Do no let your right leg support any of your weight. * Keep operated foot/ankle elevated above the level of your heart. This requires reclining rather than sitting straight up. Especially in the first few days, you will experience sign ificant pain improvement with elevation of the operative side. Incision Care: * Keep your surgical dressing on at all times. Do not remove it. Do not place anything do wn the dressing/splint. Wear your boot/shoe at all times. Bathing: * Do not get your splint/dressing wet! Cover the dressing/splint with a garbage bag when b athing and keep the surgical leg out of the bathtub when bathing. Alternatively, take a spo nge bath until follow-up. Call the office if you accidentally wet your splint/dressing. Medications * You have been written for a narcotic pain medication (e.g. oxycodone). You will find jonelle t you need these medications most in the first few days after surgery, and you should decrea se the amount you take as soon as you are able. * You may take Tylenol with your pain medication. Do not exceed the recommended dosing of Tylenol. * Narcotics can cause constipation. Please use a laxative of your choice, such as milk of magnesia, magnesium citrate or Colace. These are available over the counter at the pharmacy . * You may have been written for an anti-nausea medication. Take as needed for any postoper ative nausea. * You may have been written for aspirin or lovenox, medications designed to prevent blood c lots. This medication should be taken exactly as prescribed. Special Instructions: * Please call the office for any fever greater than 101.5+ degrees, or excessive redness or swelling in your foot, or if your pain medication is not effective. * Please call 911 for any emergent symptoms, such as chest pain, shortness of breath, diffi culty breathing, or any other significant symptoms. Please do not call the office for these emergent problems. Return Appointment: * Your follow up appointment should be already scheduled, usually at about 10-14 days after surgery. If you have not scheduled this appointment, please contact my coordinator at to schedule follow-up. OTHER DISCHARGE ORDERS & INSTRUCTIONS Opiate medications. Per policy, you will have only been written for 7 days of opiates upon discharge. It is best for your health to taper these medications gradually over the next 7 days. We recommend extend the time interval between the doses to taper. The alternative w ould be to maintain the same time interval, but decrease the dose. Example Taper: DOSE every 4 hours at time of discharge Day 1: DOSE every 4 hr Days 2: DOSE every 5 hours Days 3 - 4: DOSE every 6 hours Day 4 - 5: DOSE every 8 hours Day 6: DOSE every 12 hours Day 7: infrequent dose, only as needed, no more than once a day or with PT Over the Counter Medications: You are encouraged to use acetaminophen (aka Tylenol) as long as you have no history of radha er issues. The maximum daily dose of acetaminophen is 4000mg a day. Please follow the dire ctions on the bottle closely. One commonly used regimen while you are in the hospital is 1, 000mg three times daily, or 650mg four times daily. Please stop using immediately is you ar e having right sided abdominal pain, appear yellow and seek medical attention immediately. You are also encouraged to use NSAIDs, such as ibuprofen (aka, Advil or Motrin) or naproxen (aka, Aleve), as long as you have no history of bleeding disorders or kidney/renal issues. The maximum daily daily of NSAIDs is 3200mg a day. Please follow the directions on the bot tle closely. One commonly used regimen while you are in the hospital is 600mg of motrin fou r times daily. Please stop using if you are having atypical back/flank pain or red in your urine and seek medical attention immediately. Contacting your Orthopaedic Surgeon When to Call: 1. Difficulty breathing, chest pain or unusual shortness of breath 2. Excessive bleeding, drainage, redness, swelling at the operative site (if the wound appe ars to be worse instead of better each day) 3. Fevers, chills, increased pain that is not relieved by pain medications; 4. Persistent nausea or vomiting 5. Other specific concerns related to your surgery Please call: - during business hours (8:00am - 4:30pm) - if after hours and ask for the orthopaedic surgery resident president & ceo [employer]. Pain Management: All medications must be taken as prescribed. No early refills for excessive consumption. At the 6-week post-operative chito, pain management will be reassessed and pain management r ecommendations may be modified by the discretion of the Provider. At the 3-month post-operat corry chito, the patient will be referred to pain management for ongoing pain of poly-trauma, r eferred to PCP, or transitioned to Tylenol. All refills must be requested through a pharmacy . The pharmacy may then either call the office with a request or fax the request to clinic. Patients must give the Outpatient Clinic a minimum of 72 hours to refill or deny narcotic pr escription from the time that they receive request from pharmacy. Requests received after 3p m will not be processed until the following business day. Prescriptions will not be availabl e through our office after-hours, weekends, and holidays. NO EXCEPTIONS ----- Follow Up Appointments: Contact information for other follow-up providers Rio Huerta MD . Specialty: Family Medicine Contact information [address] [place] [phone] Contact information for after-discharge care Discharge Destination [facility] . Service: Senior Living Contact information [address] [address] Code Status for Facility Status: Full Code Discharge Follow Up - Facility MD to follow Facility MD to follow patient. ----- Condition On Discharge: Good Vital Signs at discharge: Ht 1.803 m (5' 11"), Wt 97.1 kg (214 lb 1.1 oz), BP 111/57, Pulse 66, Temperature 36.5 C (97.7 F), Temperature source Oral, RR 16, SpO2 97%, BMI 29.86 kg /(m^2). Facility age limit for growth percentiles is 18 years. ----- Medication Reconciliation: Medication List START taking these medications * apixaban 5 mg Tab Commonly known as: ELIQUIS Take 2 tablets by mouth two times daily for 7 days. Indications: blood clot in a deep vein of the extremities, treatment to prevent blood clots in chronic atrial fibrillation * apixaban 5 mg Tab Commonly known as: ELIQUIS Take 1 tablet by mouth two times daily. Indications: blood clot in a deep vein of the extre mities, treatment to prevent blood clots in chronic atrial fibrillation Start taking on: June 16, 2020 cyanocobalamin (vitamin B-12) 2,000 mcg Tab Take 2,000 mcg by mouth once daily. oxyCODONE (immediate release) 5 mg Tab Commonly known as: ROXICODONE Take 1-2 tablets by mouth every four hours as needed for moderate pain (unresponsive to non -opioid medication). polyethylene glycol 17 gram Pwpk Commonly known as: MIRALAX Mix 1 packet and take orally once daily. senna-docusate 8.6-50 mg Tab Commonly known as: SENOKOT S Take 2 tablets by mouth two times daily. tamsulosin 0.4 mg Cap Commonly known as: FLOMAX Take 1 capsule by mouth once daily. * This list has 2 medication(s) that are the same as other medications prescribed for you. Read the directions carefully, and ask your doctor or other care provider to review them wi th you. CHANGE how you take these medications cephALEXin 500 mg Cap Commonly known as: Keflex Take 1 capsule by mouth every eight hours. Indications: bone/joint infection What changed: when to take this furosemide 20 mg Tab Commonly known as: LASIX Take 1 tablet by mouth once daily. What changed: medication strength how much to take omeprazole 20 mg Cpdr Commonly known as: PRILOSEC Take 1 capsule by mouth two times daily before meals. Administer 30 to 60 minutes before me als What changed: when to take this CONTINUE taking these medications acetaminophen 325 mg Tab Commonly known as: TYLENOL Take 325 mg by mouth every six hours as needed (pain). digoxin 125 mcg Tab Commonly known as: LANOXIN Take 125 mcg by mouth once daily. Indications: Ventricular Rate Control in Atrial Fibrillat ion gabapentin 600 mg Tab Commonly known as: NEURONTIN Take 600 mg by mouth two times daily. melatonin 5 mg Tab Take 5 mg by mouth once daily in the evening. multivitamin-iron Tab Commonly known as: ONE DAILY with IRON Take 1 tablet by mouth once daily. STOP taking these medications aspirin EC 81 mg Tbec ----- Discharge Patient To: Senior Living Facilit Discharging Physician: Lamine Aguilar MD Attending Physician: Dr. Marty Fam Thank you for the opportunity to take care of Diane An during this inpatient stay, it has been our pleasure. Please call with any questions. Lamine Aguilar MD [facility] [place] Department of Orthopaedics and Rehabilitation PGY-3 Pager [phone] documented in this en counter Discharge Instructions Instructions Christina Rhoades, MJ - 06/03/2020Alcohol and Drug Treatment Resources During your hospitalization, you were given a brief substance use screening. If you are int erested in obtaining more information about alcohol or drug treatment, or are curious about available supports in your community, the following resources may be helpful. [facility]'s National Helpline (also known as the Treatment Referral Routing Service) is a conf idential, free, 12-lwcw-s-day, 762-wub-d-year, information service, in Mauritian and Iranian, for individuals and family members facing substance abuse and mental health issues. Call 7-959-967-KNQN (7149) or visit the online treatment locators at http://findtreatment.s [facility] hospitals[facility].gov/ Info Dial from your mobile phone or landline to speak to a specialist who can help you jimmy askew about resources in your area [facility] Alcoholics Anonymous: www.aa.org to find the meeting closest to you [phone] Narcotics Anonymous [phone] Alcohol and Drug Helpline (adults) 2-645-229-HTGA (9936) [phone] (youth/family members) (Iranian speaking) SMART Recovery (Self-Management and Recovery Training) www.EnOcean.org Refuge Recovery (A Islam Path to Recovering from Addiction) http://www.refugeManaged Systems.org Celebrate Recovery (A Mike-Centered Recovery Program) http://www.Cleanify/ Outpatient Treatment [facility] Website: http://www.[facility].org/ Central Contact Services Available By Self-Referral: Adult Outpatient Youth Outpatient Problem Gambling Treatment [facility] Website: http://www.[facility].org/ Services Available By Self-Referral: Women s Residential at [facility] - Detoxification & Stabilization at [facility] - Adult Outpatient at [facility] - Enhanced Youth and Family Services - [employer] Website: http://Excelera/ Central Contact Services Available By Self-Referral: Adult Outpatient Youth Outpatient [employer] [facility] Website: http://www.Simris Alg.org/ Central Contact Phone: or Toll Free Services Available By Self-Referral: Adult Outpatient Youth Outpatient Youth Prevention Enhanced Youth and Family Services Problem Gambling Treatment [facility] Central Contact Services Available By Self-Referral: Medication Assisted Treatment for Opioid Use Residential Treatment [facility] Website: http://www.[facility].org/ Services Available By Self-Referral: Men s and Women s Residential Adult Outpatient at [facility] Medication Assisted Treatment for Opioid Use [facility] Website: http://www.[facility].org/ Adult Gender Specific Residential Adult Outpatient Youth Outpatient [facility] Website: http://www.[facility].org/ Services Available By Self-Referral: Adult Gender Specific Residential (allows couples and children) Adult Outpatient Youth Outpatient [employer] Website: http://www.United Preferenceaor.org/ Services Available By Self-Referral: Adult Outpatient or en Espaol You can also call your insurance directly, as there may be other options covered through [employer] insurance. Harm Reduction Drug Use The safest choice is not to take drugs. However, if you choose to take drugs you can reduce the risk of harm. Avoid using alone Avoid mixing depressant drugs together Take a break from use and ask for help if you start to feel unwell (mentally or physically) Look after your friends if they look like they are getting into trouble, help them to s [facility] help Let first aid responders know what you have taken. Practice safe use. Use lower risk methods of use when possible it s safer not to inje ct drugs, and never share injecting equipment. There are resources in the community for need le exchange and naloxone carry both with you if you can. Strategies to Cut Back Alcohol Use Find different things to do. If drinking takes up a lot of your time, you can fill free chadwick e by thinking of new, healthy things to do. Hobbies you enjoy, making new friends, or spendi ng more time with friends you ve missed. If you are used to drinking to feel more relaxed with others, or cope with feeling sad or angry, or deal with problems, you can seek other, h ealthy ways to deal with those areas of your life. Avoid triggers. What triggers your urge to drink? If some people or places make you d rink even when you don t want to, try to avoid them. If certain things you do, certain chadwick es during the day, or certain feelings trigger the urge to drink, plan something else to do instead of drinking. If drinking at home is a problem, keep little or no alcohol there. Know your no. You re likely to be offered a drink at times when you don t want on e. Have a polite, firm no, thanks ready. The faster you can say no to these offers, th e less likely you are to give in. If you pause, it allows you time to think of reasons to go along and drink. Plan to handle urges. When you cannot avoid a trigger and you feel an urge to drink, think of these choices: Remind yourself of your reasons for changing (it can help to carry them on paper or email them to yourself). Or talk things through with someone you trust. Or get inv olved with a healthy, different thing to do, such as exercise or a hobby. Or, instead of fig hting the urge to drink, wait for it to go away without giving in, knowing that it will soon pass. Long-Term Resources [facility] [address] [place] [address] http://www.[facility].Global [employer]orum 12 step/AA program: 7 p.m. Wed. & Sat. Men's showers: 5:45-6:30 p.m. Mon-Sun Women's shower s: 10:30-11:15 a.m. Wed. Dinner: 5:45 p.m. Sun-Sat Long-Term: 5:45 p.m. Men only, TB card/sobriety required. $5 a night for alf, meal included. Mon.-Sun. Sign up @ 5:45p.m. 12-step/AA program offered. Men's and women's showers available for $1. Bus s ervice: [address] [place] [employer] [place] [address] [place] [facility] [place] [address] http://www.[facility] hospital[facility].org check in 5:45 p.m. Transit: Max All, 16,12,19,20. Men only, TB card, taoist service not required, check in 5:45 p.m., Zamzee system, clean a nd sober. Hours: 24 hours for the [place]. www.[facility] hospital[facility].org Transition [employer] ([employer]) [address] [facility] [place] [id number] http://www.tprojects.org Sign-up, 8 a.m.-12p.m.; 1p.m.- 7:30 p.m., Mon.-Sun. Call for details and to be placed on [facility] wait list. Women's shower sign-up 8 a.m. Transit: [place] Green/Yellow, 4, 9, 17, 77 TB card required, waiting list, case management available, clean/sober (case management carlos illeobardo); [facility] (men only); [facility] (women only) Bus: F[employer]less [employer]. Transitional Housing [employer]les[employer] [phone] http://www.Stax Networks.org Hours: 24/7 Independent living for disabled and dual-diagnosis. Priority for chronically mentally ill. [facility] [address] [place] [facility] [place] [phone] http://Cloudvue Technologiesformerly [facility].org 8:30a.m.- 5p.m. Mon.-Sun. Transit: 4, 6, 33, 44 Mental illness housing referrals; full service mental health clinic; client property manage ment/ payee service; DUII program. [facility] [address] [place] [address] Intake Line: [phone] (initial appointment) http://www.Tale Me Stories.org 24 hours Transit: MAX Homeless and mentally ill persons only, 30 single room occupancy units, transitional housin g; Waitlist for permanent housing. Must be referred through a [facility]. Claudia Sepulveda [address] [facility] [place] [id number] [email or web address] 8:30 a.m.- 5:00 p.m. Sun-Sun. Transit: , Streetcar Maintaining fourteen transitional apartments where homeless families can stay for up to 6 m [facility]. Supporting families with long-term service coordination, advocacy, and referrals. [facility] [address] [place] [phone] [email or web address] 8 a.m.-5 p.m. Mon.-Fri. Closed noon-1 p.m. daily. Transit: 50, 53. A family alf. Call daily for availability. Support to stabilize households that are moiz eless. Families pay 30 percent of their adjusted monthly income. Utility assistance also carlos ilable. [employer] [place] [address] [place] [facility] [place] [address] [email or web address] Hours:9 a.m.-7 p.m., Sun.-.; Sunday by appointment only. Transit: 19, 20, MAX blue line Emergency Housing Assistance program through vouchers for short-term motel stays, placement in local shelters and direct rent assistance for families with children only. Assistance wi th utility bills and some ashley assistance for necessary items. Short-term case management an d bi-lingual information services. [employer] [address] [place] [address] [email or web address] 10 a.m.-3 p.m. Sun.-Sun. Transit: Max Blue, Green, Red, 72, 77 Provides day time drop-in center with coffee, showers, bathrooms, hygiene products, laundry vouchers, mail, limited locker storage, computer use, and free telephone use for both indiv iduals and families. [facility] [place] [address] Transitional housing for adults with severe mental illness. Must be referred through a [facility] macy clinic or other social service agency. Must have a renal case manager; 2 month temporary césar herring. [facility] [address] [place] [address] [email or web address] 9a.m.-5p.m. Mon. Wed.; 9a.m.-8p.m.Thur.; 10a.m.-2p.m. Sun. To assist low-income and homeless families meet basic human needs. _To educate, encourage a nd support families to begin the process toward self-sufficiency. Services require proof of income and follow the Federal Poverty Guidelines. Serving , , and [facility]. documented in this encounter Medications at Time of Discharge + + + +---------+ + + | Medication | Sig | Dispensed | Refills | Start | End Date | | | | | | Date | | + + + +---------+ + + | acetaminophen 325 | Take 325 mg by mouth | | 0 | | | | mg oral tablet | every six hours as | | | | | | | needed (pain). | | | | | + + + +---------+ + + | apixaban 5 mg oral | Take 1 tablet by | 60 | 2 | 06/16/20 | | | tabletIndications: | mouth two times | tablet | | 20 | 0 | | deep venous | daily. Indications: | | | | | | thrombosis, prevent | blood clot in a deep | | | | | | thromboembolism in | vein of the | | | | | | chronic atrial | extremities, | | | | | | fibrillation | treatment to prevent | | | | | | | blood clots in | | | | | | | chronic atrial | | | | | | | fibrillation | | | | | + + + +---------+ + + | cephALEXin | Take 1 capsule by | 15 | 0 | 06/10/20 | | | (KEFLEX) 500 mg oral | mouth every eight | capsule | | 20 | | | capsuleIndications: | hours. Indications: | | | | | | bone/joint | bone/joint infection | | | | | | infection | | | | | | + + + +---------+ + + | cyanocobalamin | Take 2,000 mcg by | | 0 | 06/10/20 | | | 2,000 mcg oral | mouth once daily. | | | 20 | | | tabletIndications: | | | | | | | Closed trimalleolar | | | | | | | fracture of right | | | | | | | ankle, initial | | | | | | | encounter | | | | | | + + + +---------+ + + | digoxin 125 mcg | Take 125 mcg by | | 0 | | | | oral | mouth once daily. | | | | | | tabletIndications: | Indications: | | | | | | ventricular rate | Ventricular Rate | | | | | | control in atrial | Control in Atrial | | | | | | fibrillation | Fibrillation | | | | | + + + +---------+ + + | furosemide 20 mg | Take 1 tablet by | 30 | 0 | 06/10/ | | | oral | mouth once daily. | tablet | | 20 | | | tabletIndications: | | | | | | | Closed trimalleolar | | | | | | | fracture of right | | | | | | | ankle, initial | | | | | | | encounter | | | | | | + + + +---------+ + + | gabapentin 600 mg | Take 600 mg by mouth | | 0 | | | | oral tablet | two times daily. | | | | | + + + +---------+ + + | melatonin 5 mg | Take 5 mg by mouth | | 0 | | | | oral tablet | once daily in the | | | | | | | evening. | | | | | + + + +---------+ + + | multivitamin-iron | Take 1 tablet by | | 0 | | | | oral tablet | mouth once daily. | | | | | + + + +---------+ + + | omeprazole 20 mg | Take 1 capsule by | 30 | 0 | 07/30/20 | | | oral capsule,delayed | mouth two times | capsule | | 20 | | | release(DR/EC) | daily before meals. | | | | | | | Administer 30 to 60 | | | | | | | minutes before meals | | | | | + + + +---------+ + + | oxyCODONE | Take 1-2 tablets by | 30 | 0 | 07/30/20 | | | (immediate release) | mouth every four | tablet | | 20 | | | 5 mg oral tablet | hours as needed for | | | | | | | moderate pain | | | | | | | (unresponsive to | | | | | | | non-opioid | | | | | | | medication). | | | | | + + + +---------+ + + | polyethylene | Mix 1 packet and | | 0 | 06/10/20 | | | glycol 17 gram oral | take orally once | | | 20 | | | powder in packet | daily. | | | | | + + + +---------+ + + | senna-docusate | Take 2 tablets by | | 0 | 06/10/20 | | | 8.6-50 mg oral | mouth two times | | | 20 | | | tablet | daily. | | | | | + + + +---------+ + + | tamsulosin 0.4 mg | Take 1 capsule by | | 0 | 06/10/20 | | | oral capsule | mouth once daily. | | | 20 | | + + + +---------+ + + | apixaban 5 mg oral | Take 2 tablets by | 28 | 0 | 06/10/20 | | | tabletIndications: | mouth two times | tablet | | 20 | 0 | | deep venous | daily for 7 days. | | | | | | thrombosis, prevent | Indications: blood | | | | | | thromboembolism in | clot in a deep vein | | | | | | chronic atrial | of the extremities, | | | | | | fibrillation | treatment to prevent | | | | | | | blood clots in | | | | | | | chronic atrial | | | | | | | fibrillation | | | | | + + + +---------+ + + documented as of this encounter Progress Notes Lamine Aguilar MD - 06/11/2020 6:25 AM PDTFormatting of this note might be different from linus pimentel. ORTHOPAEDIC SURGERY INPATIENT PROGRESS NOTE Date: 06/11/2020 Hospital Day: 10 Orthopaedic Attending: Malik Mcmillan MD and Dr. Marty Fam Orthopaedic Diagnosis(es): 1. Right ankle chronic pilon fracture dislocation 2. Charcot Right ankle Orthopaedic Procedure(s): 06/02/20 Working 1. Insertion of right calcaneal pin 2. Dynamic stress examination of right foot and ankle 3. Closed treatment of right pilon fracture 4. Removal of right calcaneal pin 06/08/2020 [place] 1. Right tibial and fibular osteotomy 2. Right ankle and subtalar joint fusions (hindfoot nail) 3. Right peroneal tendon release Interval events/Subjective: BM yesterday, Tolerating diet well. Denies CP/SOB Minimal pain in right leg. Objective: Vitals: Pulse: 66 BP: 111/57 Temp: 36.5 C (97.7 F) SpO2: 97 % Resp: 16 General: Well appearing, NAD CV/Resp: Breathing comfortably, RRR by palpation Neurologic: A+O x3, face grossly symmetric MSK: RLE: Splint without strikethrough. EHL/FHL No sensation due to baseline neuropathy, WWP toe s. LLE: In Rooke boot with heel floating off bed. 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 He has a charcot ankle, and his ankle had no mobilit y under stress exam. Thus, his ankle was unable to undergo surgical fixation and in its curr ent position is unable to tolerate any weight bearing without continued catastrophic destruc tion and ulcer formation potentially leading to amputation. Had long discussion with patient that limb salvage in this situation would be a large procedure with high risk of infection with his open ulcers and neuropathy and high risk of hardware failure and or complications r equiring return to the operating room. Amputation was discussed but patient wanted to procee d with hindfoot fusion. Very poor skin quality and still very high risk for surgical complic ations making amputation still a very real risk. - s/p definitive treatment - Ancef x 72 hours given poor skin quality and current ulcers. 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 Patient saw Dr. Carmen in clinic (). Recommendations at that time were: "Discussed possibility that could experience torre rdware failure as the Abx nail is significantly weaker than traditional fusion nail. Agreed that can address hardware failure issues if they develop and at this point in time there is more benefit of beginning full weight bearing. We are likely to leave this antibitoic dante f orever. He seems to understand and we both wish to avoid future surgeries." -- WBAT LLE -- ROOKE boot while in bed with heel floating. #DVT R common femoral vein - Plan per medicine - Heparin gtt started (06/02) and discontinued 06/08 -Apixaban 10mg BID x 1w and then 5mg BID after that #Afib Patient with A. Fib chads vascular 2, continue on digoxin, currently holding aspirin, will be on apixaban for 3 months, can restart aspirin following apixaban course. -Continue digoxin 125 mcg daily - Digoxin level 0.5 06/06 - Apixaban as above. #LE Edema - Lasix 20 mg today as Per medicine #Care Protocol Items: - Activity/Immobility: - Weight bearing: -NWB RLE. WBAT LLE - ROM: As tolerated, encouraged. - PT/OT: Ordered - Pain: Multimodal, - Wound care: -maintain splint RLE - ID: ceFAZolin, for 24 hours perioperatively. Status of antibiotic course: Pending - Further Imaging: Reviewed - Labs: BMP, to review when results - Diet: regular - Special concerns: asking if we can find follow up closer. - Orthopaedic Follow-up/Future Appointments: Follow up with Dr. Coffman in [place] 3 weeks from surgery. Disposition: Discharge to SNF later today. Has been accepted to SNF in [place]. Spoke wi th Dr. Parra's clinic in [place] and they are willing to take care of Mr. An' care p ost operatively. Have provided an imaging disk and operative report. Lamine Aguilar MD | PGY-3 [facility] Department of Orthopaedics and Rehabilitation Personal Pager [phone] | For urgent, after-hour, questions please page [phone] amine Aguilar MD - 020 6:21 AM PDT ORTHOPAEDIC SURGERY INPATIENT PROGRESS NOTE Date: 06/10/2020 Hospital Day: 9 Orthopaedic Attending: Malik Mcmillan MD and Dr. Marty Fam Orthopaedic Diagnosis(es): 1. Right ankle chronic pilon fracture dislocation 2. Charcot Right ankle Orthopaedic Procedure(s): 06/02/20 Working 1. Insertion of right calcaneal pin 2. Dynamic stress examination of right foot and ankle 3. Closed treatment of right pilon fracture 4. Removal of right calcaneal pin 06/08/2020 [place] 1. Right tibial and fibular osteotomy 2. Right ankle and subtalar joint fusions (hindfoot nail) 3. Right peroneal tendon release Interval events/Subjective: Pain well controlled Slept well overnight [facility] Objective: Vitals: Pulse: 74 BP: 114/51 Temp: 36.7 C (98 F) SpO2: 93 % Resp: 18 General: Well appearing, NAD CV/Resp: Breathing comfortably, RRR by palpation Neurologic: A+O x3, face grossly symmetric MSK: RLE: Splint without strikethrough. EHL/FHL No sensation due to baseline neuropathy, WWP toe s. 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 He has a charcot ankle, and his ankle had no mobilit y under stress exam. Thus, his ankle was unable to undergo surgical fixation and in its curr ent position is unable to tolerate any weight bearing without continued catastrophic destruc tion and ulcer formation potentially leading to amputation. Had long discussion with patient that limb salvage in this situation would be a large procedure with high risk of infection with his open ulcers and neuropathy and high risk of hardware failure and or complications r equiring return to the operating room. Amputation was discussed but patient wanted to procee d with hindfoot fusion. Very poor skin quality and still very high risk for surgical complic ations making amputation still a very real risk. - s/p definitive treatment - Ancef x 72 hours given poor skin quality and current ulcers. - Will discharge on 5 days of keflex #MRSA osteomyelitis of left calc/talus/tibia #Failed ankle fusion This is not being managed during this hospitalization. Patient saw Dr. Carmen in clinic (). Recommendations at that time were: "Discussed possibility that could experience torre rdware failure as the Abx nail is significantly weaker than traditional fusion nail. Agreed that can address hardware failure issues if they develop and at this point in time there is more benefit of beginning full weight bearing. We are likely to leave this antibitoic dante f orever. He seems to understand and we both wish to avoid future surgeries. " #DVT R common femoral vein - Plan per medicine - Heparin gtt started (06/02) and discontinued 06/08 -Transition to Apixaban 10mg BID x 1w and then 5mg BID after that #Afib Patient with A. Fib chads vascular 2, continue on digoxin, currently holding aspirin, will be on apixaban for 3 months, can restart aspirin following apixaban course. -Continue digoxin 125 mcg daily - Digoxin level 0.5 06/06 - Apixaban as above. #LE Edema - Lasix 20 mg today as Per medicine #Care Protocol Items: - Activity/Immobility: - Weight bearing: -NWB RLE. WGAT LLE - ROM: As tolerated, encouraged. - PT/OT: Ordered - Pain: Multimodal, - Wound care: -maintain splint RLE - ID: ceFAZolin, for 24 hours perioperatively. Status of antibiotic course: Pending - Further Imaging: Reviewed - Labs: BMP tomorrow - Diet: regular - Special concerns: asking if we can find follow up closer. - Orthopaedic Follow-up/Future Appointments: Follow up with Dr. Coffman in [place] or Dr. Joselito sumner 3 weeks from surgery. Disposition: Has been accepted to [facility] in [place] and patient would like to return there d ue to proximity to his social system. Will reach out again to Dr. Parra's office in [place] today. If surgeon there is unable to provide care, will look at getting patient to SNF hardik ser to [place]. Lamine Aguilar MD | PGY-3 [facility] Department of Orthopaedics and Rehabilitation Personal Pager [phone] | For urgent, after-hour, questions please page [phone] Lamine Mathew MD - 020 8:13 AM PDT ORTHOPAEDIC SURGERY INPATIENT PROGRESS NOTE Date: 06/09/2020 Hospital Day: 8 Orthopaedic Attending: Malik Mcmillan MD and Dr. Marty Fam Orthopaedic Diagnosis(es): 1. Right ankle chronic pilon fracture dislocation 2. Charcot Right ankle Orthopaedic Procedure(s): 06/02/20 Working 1. Insertion of right calcaneal pin 2. Dynamic stress examination of right foot and ankle 3. Closed treatment of right pilon fracture 4. Removal of right calcaneal pin 06/08/2020 [place] 1. Right tibial and fibular osteotomy 2. Right ankle and subtalar joint fusions (hindfoot nail) 3. Right peroneal tendon release Interval events/Subjective: OR yesterday "Really no pain in his Objective: Vitals: Pulse: 94 BP: 130/71 Temp: 36.6 C (97.9 F) SpO2: 100 % Resp: 16 General: Well appearing, NAD CV/Resp: Breathing comfortably, RRR by palpation Neurologic: A+O x3, face grossly symmetric MSK: RLE: Splint without strikethrough. EHL/FHL No sensation due to baseline neuropathy, WWP toe s. 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 He has a charcot ankle, and his ankle had no mobilit y under stress exam. Thus, his ankle was unable to undergo surgical fixation and in its curr ent position is unable to tolerate any weight bearing without continued catastrophic destruc tion and ulcer formation potentially leading to amputation. Had long discussion with patient that limb salvage in this situation would be a large procedure with high risk of infection with his open ulcers and neuropathy and high risk of hardware failure and or complications r equiring return to the operating room. Amputation was discussed but patient wanted to procee d with hindfoot fusion. Very poor skin quality and still very high risk for surgical complic ations making amputation still a very real risk. - s/p definitive treatment - Ancef x 72 hours given poor skin quality and current ulcers. #MRSA osteomyelitis of left calc/talus/tibia #Failed ankle fusion This is not being managed during this hospitalization. Patient saw Dr. Carmen in clinic (). Recommendations at that time were: "Discussed possibility that could experience torre rdware failure as the Abx nail is significantly weaker than traditional fusion nail. Agreed that can address hardware failure issues if they develop and at this point in time there is more benefit of beginning full weight bearing. We are likely to leave this antibitoic dante f orever. He seems to understand and we both wish to avoid future surgeries. " #DVT R common femoral vein - Plan per medicine - Heparin gtt started (06/02) and discontinued 06/08 -Transition to Apixaban 10mg BID x 1w and then 5mg BID after that #Afib Patient with A. Fib chads vascular 2, continue on digoxin, currently holding aspirin, will be on apixaban for 3 months, can restart aspirin following apixaban course. -Continue digoxin 125 mcg daily - Digoxin level 0.5 06/06 - Apixaban as above. #LE Edema - Lasix 20 mg today as Per medicine #Care Protocol Items: - Activity/Immobility: - Weight bearing: -NWB RLE. WGAT LLE - ROM: As tolerated, encouraged. - PT/OT: Ordered - Pain: Multimodal, - Wound care: -maintain splint RLE - ID: ceFAZolin, for 24 hours perioperatively. Status of antibiotic course: Pending - Further Imaging: Reviewed - Labs: BMP tomorrow. - Diet: regular - Special concerns: asking if we can find follow up closer. - Orthopaedic Follow-up/Future Appointments: Follow up with Dr. Fam in 2 weeks. Disposition: Will discuss with surgeon closer to home to see if he can assist with wound ch perez and immediate post-operative course. If so, will attempt to discharge patient closer to home in [place]. If surgeon there is unable to provide care, will look at getting patient to SNF closer to [place]. Lamine Aguilar MD | PGY-3 [facility] Department of Orthopaedics and Rehabilitation Personal Pager [phone] | For urgent, after-hour, questions please page [phone] [facility] - 06/07/2020 7:34 AM PDT RLE: In splint Motor: EHL, FHL Sensory: no sensation 2/2 neuropathy Vascular: Digits WWP A/P: s/p the above procedures and diagnosis Orthopaedic problem list is as follows: ORTHOPAEDIC SURGERY INPATIENT PROGRESS NOTE Date: 06/07/2020 Hospital Day: 6 Orthopaedic Attending: Malik Mcmillan MD Orthopaedic Diagnosis(es): 1. Right ankle chronic pilon fracture dislocation 2. Charcot Right ankle Orthopaedic Procedure(s): 06/02/20 Working 1. Insertion of right calcaneal pin 2. Dynamic stress examination of right foot and ankle 3. Closed treatment of right pilon fracture 4. Removal of right calcaneal pin Interval events/Subjective: No pain Appreciative of care being given Objective: Vitals: Pulse: 90 BP: 122/60 Temp: 36.7 C (98.1 F) SpO2: 97 % Resp: 16 General: Well appearing, NAD CV/Resp: Breathing comfortably, RRR by palpation Neurologic: A+O x3, face grossly symmetric MSK: RLE: Splint without strikethrough. EHL/FHL No sensation due to baseline neuropathy, WWP toe s. 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 He has a charcot ankle, and his ankle had no mobilit y under stress exam. Thus, his ankle was unable to undergo surgical fixation and in its curr ent position is unable to tolerate any weight bearing without continued catastrophic destruc tion and ulcer formation potentially leading to amputation. Had long discussion with patient that limb salvage in this situation would be a large procedure with high risk of infection with his open ulcers and neuropathy and high risk of hardware failure and or complications r equiring return to the operating room. Amputation would be likely a quicker recover for him. Given these options, we will discuss with Dr. Carmen and potentially our foot and ankle col leagues and carry out a shared decision making process - Plan is to go to the operating room tomorrow - NPO at midnight -no abx or dvt ppx on d/c #DVT R common femoral vein - Plan per medicine - Heparin gtt started (06/02) #Afib Patient with A. Fib chads vascular 2, continue on digoxin, currently holding aspirin, will be on apixaban for 3 months, can restart aspirin following apixaban course. -Continue digoxin 125 mcg daily - Digoxin level 0.5 06/06 -Heparin drip #LE Edema - Lasix 50 mg started #Care Protocol Items: - Activity/Immobility: - Weight bearing: -NWB RLE - ROM: As tolerated, encouraged. - PT/OT: Ordered - Pain: Multimodal, - Wound care: -maintain splint RLE - ID: ceFAZolin, for 24 hours perioperatively. Status of antibiotic course: Pending - Further Imaging: Reviewed - Labs: BMP, CBC, Ordered and C reactive protein - Diet: regular - DVT prophylaxis: SCDs in bed - Special concerns: asking if we can find follow up closer. - Orthopaedic Follow-up/Future Appointments: TBD Disposition: Hoping to discharge to [facility] near home, JUAN PABLO [facility] Orthopaedic Trauma Surgery Pager: [phone] Phone [phone] Lo Duggan MD - 06/06/2020 10:35 AM PDT Orthopaedic Surgery Progress Note Diagnosis(es): 1. Right ankle chronic pilon fracture dislocation 2. Charcot Right ankle Orthopaedic Procedure(s) & Date(s): 1. Insertion of right calcaneal pin 2. Dynamic stress examination of right foot and ankle 3. Closed treatment of right pilon fracture 4. Removal of right calcaneal pin Attending Physician: Dr. Gan Working S: pain continues to be well controlled in RLE. Splinted. O: Last Vitals: BP 140/61 (BP Location: Left upper arm, Patient Position: Lying on back) | Pu lse 97 | Temp 36.7 C (98.1 F) (Oral) | Resp 16 | Ht 1.803 m (5' 11") | Wt 99.7 kg (2 19 lb 12.8 oz) Comment: sheet only, zero'd | SpO2 98% | BMI 30.66 kg/m | BSA 2.23 m 24 Hour Vital Min/Max: Systolic (24hrs), Av , Min:124 , Max:151 Diastolic (24hrs), Av, Min:59, Max:76 Pulse Min: 61 Max: 115 Temp Min: 36.3 C (97.3 F) Max: 37.2 C (99 F) Resp Min: 14 Max: 22 SpO2 Min: 95 % Max: 100 % Intake/Output Summary (Last 24 hours) at 06/03/2020 0807 Last data filed at 06/03/2020 0732 Gross per 24 hour Intake 1756.62 ml Output 500 ml Net 1256.62 ml General: appropriate, oriented Respiratory: regular, appropriate effort, not auscultated RLE: In splint Motor: EHL, FHL Sensory: no sensation 2/2 neuropathy Vascular: Digits WWP A/P: s/p the above procedures and diagnosis Orthopaedic problem list is as follows: #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 He has a charcot ankle, and his ankle had no mobilit y under stress exam. Thus, his ankle was unable to undergo surgical fixation and in its curr ent position is unable to tolerate any weight bearing without continued catastrophic destruc tion and ulcer formation potentially leading to amputation. Had long discussion with patient that limb salvage in this situation would be a large procedure with high risk of infection with his open ulcers and neuropathy and high risk of hardware failure and or complications r equiring return to the operating room. Amputation would be likely a quicker recover for him. Given these options, we will discuss with Dr. Carmen and potentially our foot and ankle col leagues and carry out a shared decision making process - Plan is to go to the operating room on Sunday or Sunday next week -NWB RLE -maintain splint RLE -no abx or dvt ppx on d/c #DVT R common femoral vein - Plan per medicine - Heparin gtt started (06/02) #Afib Patient with A. Fib chads vascular 2, continue on digoxin, currently holding aspirin, will be on apixaban for 3 months, can restart aspirin following apixaban course. -Continue digoxin 125 mcg daily - Digoxin level Sunday -Heparin drip #LE Edema - Lasix 50 mg started Lo Calderon MD Orthopaedic Surgery, PGY1 [id number] ope, Carolyn Hunt MD - 0 06/05/2020 1:47 PM PDT [facility] Progress Note Hospital Day #4 ID: Mr. An is a 70 y/o man with afib, prior L ankle MRSA, etoh use disorder who present s with right ankle fracture. 24 Hour Events: -No acute events Current Symptoms: -No SOB, cough, he was up to chair once yesterday. No CP, pressure, no hemoptysis, melena. Physical Examination: Last 24 hour min/max Temp: 36.5 C (97.7 F) Temp Min: 36.5 C (97.7 F) Max: 36.7 C (98.1 F) Pulse: 83 Pulse Min: 53 Max: 89 Resp: 16 Resp Min: 16 Max: 18 BP: 129/65 BP Min: 129/65 Max: 137/68 SpO2: 95 % SpO2 Min: 95 % Max: 98 % Body mass index is 30.29 kg/m. Date 06/05/20 0700 - 06/06/20 0659 Shift 5980-7071 0096-6220 2490-0981 24 Hour Total INTAKE Shift Total OUTPUT Urine(mL/kg/hr) 300 300 Shift Total(mL/kg) 300(3) 300(3) Weight (kg) 98.5 98.5 98.5 98.5 General: Comfortable in bed. Head and Eyes: Head atraumatic. EOMI Neck: Supple. Cardiovascular: irregular rate and rhythm no murmurs rubs or gallops Pulmonary: clear bilaterally, no wheezes, rhonchi, rales Abdominal: Soft, nontender, nondistended, normoactive bowel sounds Extremities: 1.5+ LLE edema noted, L heal ulcer noted Laboratory Interpretation: CBC with diff last 72 hours (or 3 results) - Refreshable Recent Labs 06/03/20 0140 06/04/20 0107 06/05/20 0621 WBC 6.48 5.95 4.67 HB 11.2* 12.2* 11.6* HCT 33.8* 37.0* 35.8* PLT 260 276 280 Chemistries: Last 72 Hours (or 3 results) - Refreshable Recent Labs 06/02/20 1437 06/02/20 1801 06/03/20 0140 NA -- -- 135* K -- -- 4.1 CL -- -- 101 BICARB -- -- 31 BUN -- -- 11 EGFRAFRICAN -- -- >60 CR -- -- 0.93 GLU 105* 90 132* CA -- -- 8.2* Imaging Interpretation: No new images. Assessment and Plan Mr. An is a 70 y/o man with afib, prior L ankle MRSA, etoh use disorder who present s with right ankle fracture. #R femoral vein DVT Likely secondary to right ankle fracture, will need 3 months of anticoagulation, will sukhwinder nue on heparin drip prior to surgery and following surgery can transition to apixaban for 3- month course. -Continue heparin drip -Start apixaban following surgery (3 month course) #Neuropathy Most likely multifactorial in the setting of alcohol abuse, B12 deficiency. Will replete B 12. -Start 2000mcg B12 #LE edema Patient with worsening left lower extremity edema, will restart home Lasix today. -Restart home lasix 40mg Daily #Afib Patient with A. Fib chads vascular 2, continue on digoxin, currently holding aspirin, will be on apixaban for 3 months, can restart aspirin following apixaban course. -Continue digoxin 125 mcg daily -Heparin drip #Right ankle fracture Unclear unclear etiology of the fracture, likely surgery next week. We appreciate this consult, will continue to follow along with you. Carolyn Ly MD Clinical Hospitalist [facility] Pager [phone] I spent 37 minutes in the care of this patient. Greater than 50% of the time was spent cou nseling and coordination of care, including treatment of neuropathy, exercise and LE edema. Lo Duggan MD - 0 06/05/2020 9:04 AM PDT Orthopaedic Surgery Progress Note Diagnosis(es): 1. Right ankle chronic pilon fracture dislocation 2. Charcot Right ankle Orthopaedic Procedure(s) & Date(s): 1. Insertion of right calcaneal pin 2. Dynamic stress examination of right foot and ankle 3. Closed treatment of right pilon fracture 4. Removal of right calcaneal pin Attending Physician: Dr. Gan Working S: pain continues to be well controlled in RLE. Splinted. O: Last Vitals: BP 137/68 (BP Location: Left upper arm, Patient Position: Lying on back) | Pu lse 62 | Temp 36.7 C (98.1 F) (Oral) | Resp 16 | Ht 1.803 m (5' 11") | Wt 99.9 kg (2 20 lb 3.8 oz) | SpO2 96% | BMI 30.72 kg/m | BSA 2.24 m 24 Hour Vital Min/Max: Systolic (24hrs), Av , Min:120 , Max:137 Diastolic (24hrs), Av, Min:58, Max:68 Pulse Min: 61 Max: 115 Temp Min: 36.3 C (97.3 F) Max: 37.2 C (99 F) Resp Min: 14 Max: 22 SpO2 Min: 95 % Max: 100 % Intake/Output Summary (Last 24 hours) at 06/03/2020 0807 Last data filed at 06/03/2020 0732 Gross per 24 hour Intake 1756.62 ml Output 500 ml Net 1256.62 ml General: appropriate, oriented Respiratory: regular, appropriate effort, not auscultated RLE: In splint Motor: EHL, FHL Sensory: no sensation 2/2 neuropathy Vascular: Digits WWP A/P: s/p the above procedures and diagnosis Orthopaedic problem list is as follows: #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 He has a charcot ankle, and his ankle had no mobilit y under stress exam. Thus, his ankle was unable to undergo surgical fixation and in its curr ent position is unable to tolerate any weight bearing without continued catastrophic destruc tion and ulcer formation potentially leading to amputation. Had long discussion with patient that limb salvage in this situation would be a large procedure with high risk of infection with his open ulcers and neuropathy and high risk of hardware failure and or complications r equiring return to the operating room. Amputation would be likely a quicker recover for him. Given these options, we will discuss with Dr. Carmen and potentially our foot and ankle col leagues and carry out a shared decision making process - Plan is to go to the operating room on Sunday or Sunday next week -NWB RLE -maintain splint RLE -no abx or dvt ppx on d/c #DVT R common femoral vein - Plan per medicine - Heparin gtt started (06/02) Lo Calderon MD Orthopaedic Surgery, PGY1 [id number] Lo Duggan MD - 0 06/04/2020 10:18 AM PDT Orthopaedic Surgery Progress Note Diagnosis(es): 1. Right ankle chronic pilon fracture dislocation 2. Charcot Right ankle Orthopaedic Procedure(s) & Date(s): 1. Insertion of right calcaneal pin 2. Dynamic stress examination of right foot and ankle 3. Closed treatment of right pilon fracture 4. Removal of right calcaneal pin Attending Physician: Dr. Gan Working S: pain continue to be well controlled in RLE. Splinted. O: Last Vitals: BP 134/67 (BP Location: Left upper arm, Patient Position: Lying on back) | Pu lse 68 | Temp 36.5 C (97.7 F) (Oral) | Resp 16 | Ht 1.803 m (5' 11") | Wt 86.2 kg (1 90 lb) | SpO2 99% | BMI 26.50 kg/m | BSA 2.08 m 24 Hour Vital Min/Max: Systolic (24hrs), Av , Min:122 , Max:150 Diastolic (24hrs), Av, Min:56, Max:101 Pulse Min: 61 Max: 115 Temp Min: 36.3 C (97.3 F) Max: 37.2 C (99 F) Resp Min: 14 Max: 22 SpO2 Min: 95 % Max: 100 % Intake/Output Summary (Last 24 hours) at 06/03/2020 0807 Last data filed at 06/03/2020 0732 Gross per 24 hour Intake 1756.62 ml Output 500 ml Net 1256.62 ml General: appropriate, oriented Respiratory: regular, appropriate effort, not auscultated RLE: In splint Motor: EHL, FHL Sensory: no sensation 2/2 neuropathy Vascular: Digits WWP A/P: s/p the above procedures and diagnosis Orthopaedic problem list is as follows: #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 He has a charcot ankle, and his ankle had no mobilit y under stress exam. Thus, his ankle was unable to undergo surgical fixation and in its curr ent position is unable to tolerate any weight bearing without continued catastrophic destruc tion and ulcer formation potentially leading to amputation. Had long discussion with patient that limb salvage in this situation would be a large procedure with high risk of infection with his open ulcers and neuropathy and high risk of hardware failure and or complications r equiring return to the operating room. Amputation would be likely a quicker recover for him. Given these options, we will discuss with Dr. Carmen and potentially our foot and ankle col leagues and carry out a shared decision making process -NWB RLE -maintain splint RLE -no abx or dvt ppx on d/c #DVT R common femoral vein - Plan per medicine - Heparin gtt started (06/02) Lo Calderon MD Orthopaedic Surgery, PGY1 [id number] Demetria Chapman MD - 06/03/2020 8:07 AM PDT Orthopaedic Surgery Progress Note Diagnosis(es): 1. Right ankle chronic pilon fracture dislocation 2. Charcot Right ankle Orthopaedic Procedure(s) & Date(s): 1. Insertion of right calcaneal pin 2. Dynamic stress examination of right foot and ankle 3. Closed treatment of right pilon fracture 4. Removal of right calcaneal pin Attending Physician: Dr. Gan Working S: pain controlled O: Last Vitals: BP 142/74 (BP Location: Left upper arm, Patient Position: Lying on back) | Pu lse 66 | Temp 36.5 C (97.7 F) (Oral) | Resp 16 | Ht 1.803 m (5' 11") | Wt 86.2 kg (1 90 lb) | SpO2 99% | BMI 26.50 kg/m | BSA 2.08 m 24 Hour Vital Min/Max: Systolic (24hrs), Av , Min:123 , Max:146 Diastolic (24hrs), Av, Min:48, Max:74 Pulse Min: 61 Max: 115 Temp Min: 36.3 C (97.3 F) Max: 37.2 C (99 F) Resp Min: 14 Max: 22 SpO2 Min: 95 % Max: 100 % Intake/Output Summary (Last 24 hours) at 06/03/2020 0807 Last data filed at 06/03/2020 0732 Gross per 24 hour Intake 1756.62 ml Output 500 ml Net 1256.62 ml General: appropriate, oriented Respiratory: regular, appropriate effort, not auscultated RLE: In splint Motor: EHL, FHL Sensory: no sensation 2/2 neuropathy Vascular: Digits WWP A/P: s/p the above procedures and diagnosis -#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 He has a charcot ankle, and his ankle had no mobilit y under stress exam. Thus, his ankle was unable to undergo surgical fixation and in its curr ent position is unable to tolerate any weight bearing without continued catastrophic destruc tion and ulcer formation potentially leading to amputation. Had long discussion with patient that limb salvage in this situation would be a large procedure with high risk of infection with his open ulcers and neuropathy and high risk of hardware failure and or complications r equiring return to the operating room. Amputation would be likely a quicker recover for him. Given these options, we will discuss with Dr. Carmen and potentially our foot and ankle col leagues and carry out a shared decision making process -NWB RLE -maintain splint RLE -no abx or dvt ppx on d/c DEMETRIA LAUREANO MD Chief Resident Orthopedic Surgery [id number] [facility] [phone] [place] [address] ricila Trent - 0 06/02/2020 5:04 PM PDTTransthoracic echocardiogram completed. Final report to follow.Electr onically signed by Pricila Trent at 06/02/2020 5:04 PM PDTdocumented in this encounter H&P Notes Marty Fam MD - 06/08/2020 7:13 AM PDTI have examined the patient and reviewed the H istory and Physical and have confirmed that it is accurate and current. R charcot ankle. U nclear etiology of neuropathy. Plantar medial ulcer 3X3CM. The collapse is of uncertain ch ronology. We discussed attempted salvage to include osteotomy and hindfoot nailing. We dis cussed that this will result in a shortened limb. There is also continued risk of infection and limb loss. This was discussed in detail. I reviewed the planned procedure, alternativ es the associated risks and answered questions. We discussed the risks of the procedure inc luding but not limited to bleeding, infection, damage to nerves/tendons/vessels, possible ne ed for further surgery, possible loss of limb and life, blood clots, and anesthesia complica tions. He expressed understanding, and wishes to proceed. Marty Fam MD o Calderon MD - 06/06/2020 10:35 AM PDT Orthopaedic Surgery Progress Note Diagnosis(es): 1. Right ankle chronic pilon fracture dislocation 2. Charcot Right ankle Orthopaedic Procedure(s) & Date(s): 1. Insertion of right calcaneal pin 2. Dynamic stress examination of right foot and ankle 3. Closed treatment of right pilon fracture 4. Removal of right calcaneal pin Attending Physician: Dr. Gan Working S: pain continues to be well controlled in RLE. Splinted. O: Last Vitals: BP 140/61 (BP Location: Left upper arm, Patient Position: Lying on back) | Pu lse 97 | Temp 36.7 C (98.1 F) (Oral) | Resp 16 | Ht 1.803 m (5' 11") | Wt 99.7 kg (2 19 lb 12.8 oz) Comment: sheet only, zero'd | SpO2 98% | BMI 30.66 kg/m | BSA 2.23 m 24 Hour Vital Min/Max: Systolic (24hrs), Av , Min:124 , Max:151 Diastolic (24hrs), Av, Min:59, Max:76 Pulse Min: 61 Max: 115 Temp Min: 36.3 C (97.3 F) Max: 37.2 C (99 F) Resp Min: 14 Max: 22 SpO2 Min: 95 % Max: 100 % Intake/Output Summary (Last 24 hours) at 06/03/2020 0807 Last data filed at 06/03/2020 0732 Gross per 24 hour Intake 1756.62 ml Output 500 ml Net 1256.62 ml General: appropriate, oriented Respiratory: regular, appropriate effort, not auscultated RLE: In splint Motor: EHL, FHL Sensory: no sensation 2/2 neuropathy Vascular: Digits WWP A/P: s/p the above procedures and diagnosis Orthopaedic problem list is as follows: #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 He has a charcot ankle, and his ankle had no mobilit y under stress exam. Thus, his ankle was unable to undergo surgical fixation and in its curr ent position is unable to tolerate any weight bearing without continued catastrophic destruc tion and ulcer formation potentially leading to amputation. Had long discussion with patient that limb salvage in this situation would be a large procedure with high risk of infection with his open ulcers and neuropathy and high risk of hardware failure and or complications r equiring return to the operating room. Amputation would be likely a quicker recover for him. Given these options, we will discuss with Dr. Friess and potentially our foot and ankle col leagues and carry out a shared decision making process - Plan is to go to the operating room on Sunday or Sunday next week -NWB RLE -maintain splint RLE -no abx or dvt ppx on d/c #DVT R common femoral vein - Plan per medicine - Heparin gtt started (06/02) #Afib Patient with A. Fib chads vascular 2, continue on digoxin, currently holding aspirin, will be on apixaban for 3 months, can restart aspirin following apixaban course. -Continue digoxin 125 mcg daily - Digoxin level Sunday -Heparin drip #LE Edema - Lasix 50 mg started Lo Calderon MD Orthopaedic Surgery, PGY1 [id number] eterson, Yasmeen Solorio MD - 06/01/2020 11:30 PM PDT [facility] DEPARTMENT OF ORTHOPAEDICS & REHABILITATION HISTORY & PHYSICAL EXAMINATION Patient: Diane An Encounter Date: 06/01/2020 Attending Physician: Dago Mcdowell MD Time Consult Received: 2309 Time Patient Evaluated: 2319 HISTORY OF PRESENT ILLNESS: Diane An is a 70 y.o. M with atrial fibrillation, alcoholic cirrhosis, and neuropathy known to the orthopaedic service for left ankle osteomyelitis/failed ankle fusion who is no w transferred for management of right ankle fracture dislocation. He states that he is unsur e how or when this injury occurred. He recalls an event where he slid out of bed about 3 wee ks ago and has noticed his foot slowly externally rotating. He denies any pain due to his un derlying neuropathy. He noted that he walks with a walker at baseline and is only able to ambulate about 1 block . He has chronic neuropathy and insensate to the level of the knees bilaterally. PAST MEDICAL HISTORY: No date: Atrial fibrillation (HCC) No date: Neuropathy PAST SURGICAL HISTORY: No past surgical history on file. SOCIAL HISTORY: Denies current tobacco or recreational drug use. Reports drinking about 72oz of beer daily. Occupation: Retired Lives alone in an apartment in [place] MEDICATIONS: Prior to Admission Medications Prescriptions acetaminophen 500 mg oral tablet Sig: Take 2 tablets by mouth three times daily. aspirin EC 81 mg oral tablet,delayed release (DR/EC) Sig: Take 81 mg by mouth once daily. Indications: atrial fibrillation cephALEXin 500 mg oral capsule cyanocobalamin 100 mcg oral tablet Sig: Take 500 mcg by mouth once daily. digoxin 125 mcg oral tablet Sig: Take 125 mcg by mouth once daily. Indications: Ventricular Rate Control in Atrial Fibr illation furosemide 20 mg oral tablet gabapentin 300 mg oral capsule Sig: Take 2 capsules by mouth three times daily. Indications: alcoholism gabapentin 600 mg oral tablet Sig: Take 600 mg by mouth three times daily. Indications: alcoholism melatonin 3 mg oral tablet Sig: Take 3 mg by mouth once daily in the evening. multivitamin-iron oral tablet Sig: Take 1 tablet by mouth once daily. omeprazole 20 mg oral capsule,delayed release(DR/EC) Sig: Take 20 mg by mouth two times daily. Administer 30 to 60 minutes before meals polyethylene glycol 17 gram oral powder in packet Sig: Mix 1 packet and take orally once daily. potassium chloride SR 20 mEq oral tablet,ER particles/crystals Sig: Take 1 tablet by mouth once daily. tamsulosin 0.4 mg oral capsule Sig: Take 0.4 mg by mouth once daily. thiamine mononitrate 100 mg oral tablet Sig: Take 100 mg by mouth once daily. torsemide 10 mg oral tablet Sig: Take 10 mg by mouth once daily in the morning. Indications: visible water retention Facility-Administered Medications: None ALLERGIES: has No Known Allergies. FAMILY HISTORY: reviewed, non-contrbutory REVIEW OF SYSTEMS: A 10 point review of systems was completed and the pertinent positives and negatives are no katlin above in the history of present illness. PHYSICAL EXAMINATION VITALS: Pulse: 87 BP: 133/55 Temp: 37.1 C (98.7 F) SpO2: 96 % Resp: 19 GENERAL: appropriate, oriented CARD/PULM: appropriate effort, not auscultated NECK: not in cervical collar RIGHT LOWER EXTREMITY: Inspection: obvious deformity of ankle, erythema and edema to knee, ulceration of medial he el as pictured below Palpation: non-tender ROM: full P/ROM hip, knee, unable to assess ankle due to dislocation/deformity Motor: fires tibialis anterior, fires gastrocsoleus complex, fires EHL, fires FHL, fires qu ads, fires hamstrings, fires hip flexors Sensory: no sensation below knee (baseline) Vascular: dorsalis pedis signal, posterior tibial signal, digits warm & well perfused LABORATORY DATA: Lab Results Component Value Date/Time NA 135 (L) 06/01/2020 10:37 PM K 3.7 06/01/2020 10:37 PM CR 0.65 (L) 06/01/2020 10:37 PM HCT 35.1 (L) 06/01/2020 10:37 PM WBC 7.07 06/01/2020 10:37 PM PLT 288 06/01/2020 10:37 PM ESR 78 (H) 09/09/2019 05:18 AM CRP 70.8 (H) 09/09/2019 05:18 AM DIAGNOSTIC IMAGING: XR right ankle and tib/fib, per my read demonstrate: ankle fracture dislocation ASSESSMENT/PLAN: Diane An is a 70 y.o. M with the following orthopaedic injuries/concerns: #Right ankle fracture dislocation - attempt was made to close reduce under conscious sedation in the ED, however this was uns uccessful - likely related to the sub-acute nature of this fracture - placed in a bulky doss short leg splint - MCA for OR - COVID pending - NPO now - appreciate medicine consult for co-management of this patient Disposition: admit to orthopaedic surgery Surgery: yes, procedure tbd, anticipated time: 06/02 Diet: npo effective now Further Imaging: no additional at this time The orthopaedics consult pager is #[phone], please call with questions. Yasmeen Herr MD Orthopaedic Surgery Resident, PGY-2 [facility] [id number] Associated attestation - Malik Mcmillan MD - 06/04/2020 3:56 PM PDTI agree with the d ocumentation of our resident as contained in this note. I personally interviewed the patient , duplicated the pertinent parts of the physical examination and personally formulated the p tawanna with the resident. I have reviewed, entered my findings, and agree with the above docum entation. Malik Mcmillan MD Department of Orthopedics & Rehabilitation - Orthopaedic Trauma [facility] documented in this encounter Consult Notes Carolyn Ly MD - 06/11/2020 10:17 AM PDT [facility] Progress Note Hospital Day #10 ID: Mr. An is a 70 y/o man with afib, prior L ankle MRSA, etoh use disorder who present s with right ankle fracture, s/p R ankle Pin, ankle and subtalar joint fusions and peroneal tendon release 06/08. 24 Hour Events: -No acute events Current Symptoms: -No SOB, cough, hemoptysis or melena, feeling good about D/c and rehab. Physical Examination: Last 24 hour min/max Temp: 36.5 C (97.7 F) Temp Min: 36.5 C (97.7 F) Max: 36.7 C (98.1 F) Pulse: 66 Pulse Min: 61 Max: 95 Resp: 16 No data recorded BP: 111/57 BP Min: 111/57 Max: 128/52 SpO2: 97 % SpO2 Min: 96 % Max: 97 % Body mass index is 29.86 kg/m. Date 06/05/20 0700 - 06/06/20 0659 Shift 5393-3175 8463-0199 4911-5185 24 Hour Total INTAKE Shift Total OUTPUT Urine(mL/kg/hr) 300 300 Shift Total(mL/kg) 300(3) 300(3) Weight (kg) 98.5 98.5 98.5 98.5 General: Comfortable in bed. Head and Eyes: Head atraumatic. EOMI Neck: Supple. Cardiovascular: irregular rate and rhythm no murmurs rubs or gallops Pulmonary: clear bilaterally, no wheezes, rhonchi, rales Abdominal: Soft, nontender, nondistended, normoactive bowel sounds Extremities: trace LLE edema noted, L heal ulcer noted, currently heal floating in boot. Laboratory Interpretation: CBC with diff last 72 hours (or 3 results) - Refreshable Recent Labs 06/09/20 0325 06/10/20 0551 06/11/20 0614 WBC 7.37 5.91 6.33 HB 9.7* 9.6* 10.5* HCT 30.1* 29.4* 32.4* PLT 229 254 258 Chemistries: Last 72 Hours (or 3 results) - Refreshable Recent Labs 06/11/20 0614 NA 136 K 4.0 CL 106 BICARB 25 BUN 10 EGFRAFRICAN >60 CR 1.07 GLU 111* CA 8.6 Imaging Interpretation: No new images. Assessment and Plan Mr. An is a 70 y/o man with afib, prior L ankle MRSA, etoh use disorder who present s with right ankle fracture s/p fusion and repair 06/08 #R femoral vein DVT Likely secondary to right ankle fracture, will need 3 months of anticoagulation, currently on heparin drip however ok to transition to apixaban for a 3 month course (06/02-08/03), will need to hold asa during apixaban (once apixaban is stopped will restart prior home asa). H b currently stable continue on apixiban until 08/03 -Continue apixaban 10mg BID for 1 week, then transition to 5mg BID until 08/03 #Neuropathy Most likely multifactorial in the setting of alcohol abuse, B12 deficiency. Recommend repl etion of B12, currently on loading dose can decrease to 1000mcg daily in 2 weeks. -Continue 2000mcg Cyanocobalamin for 2 weeks then decrease to 1000mcg daily on 06/19 #LE edema Patient with LLE and noted that he does take his lasix daily at home. Slight Cr bump day o f surgery, thus held lasix, now restarting at a slightly lower dose, goal is net 500cc neg p er day. Cr now improved with lower dose of lasix and pt euvolemic on exam thus will contin ue lasix at a low dose on discharge. -Continue lasix 20mg Daily -Continue on Kdur 20mEq daily #Afib Patient with A. Fib chads vascular 2, continue on digoxin, currently holding aspirin, will be on apixaban for 3 months, can restart aspirin following apixaban course. -Continue digoxin 125 mcg daily -Continue Apixiban -Hold home Asprin #L Heal ulceration Continues to be open wound, have been trying to float the heal however moderately unsuccess ful. Discussed boot to float the heal and promote healing. Other recommendations per wound ostomy. -Float heal at all times ([place] boot) #Right ankle fracture Unclear unclear etiology of the fracture, s/p repair. Management per Ortho. We appreciate this consult, will continue to follow along with you. Carolyn Ly MD Clinical Hospitalist [facility] Pager [phone] I spent 39 minutes in the care of this patient. Greater than 50% of the time was spent cou nseling and coordination of care, including treatment of neuropathy, L heal ulcer, LE edema, lasix dosing and B12 repletion. ope, Carolyn Hunt MD - 0 06/10/2020 4:31 PM PDT [facility] Progress Note Hospital Day #9 ID: Mr. An is a 70 y/o man with afib, prior L ankle MRSA, etoh use disorder who present s with right ankle fracture, s/p R ankle Pin, ankle and subtalar joint fusions and peroneal tendon release 06/08. 24 Hour Events: -No acute events Current Symptoms: -No SOB, cough, hemoptysis or melena -Planning on D/c tomorrow. Physical Examination: Last 24 hour min/max Temp: 36.7 C (98.1 F) Temp Min: 36.6 C (97.9 F) Max: 36.7 C (98.1 F) Pulse: 95 Pulse Min: 68 Max: 95 Resp: 16 Resp Min: 16 Max: 18 BP: 120/67 BP Min: 114/51 Max: 127/48 SpO2: 96 % SpO2 Min: 93 % Max: 97 % Body mass index is 30.53 kg/m. Date 06/05/20 0700 - 06/06/20 0659 Shift [id number] 24 Hour Total INTAKE Shift Total OUTPUT Urine(mL/kg/hr) 300 300 Shift Total(mL/kg) 300(3) 300(3) Weight (kg) 98.5 98.5 98.5 98.5 General: Comfortable in bed. Head and Eyes: Head atraumatic. EOMI Neck: Supple. Cardiovascular: irregular rate and rhythm no murmurs rubs or gallops Pulmonary: clear bilaterally, no wheezes, rhonchi, rales Abdominal: Soft, nontender, nondistended, normoactive bowel sounds Extremities: trace LLE edema noted, L heal ulcer noted Laboratory Interpretation: CBC with diff last 72 hours (or 3 results) - Refreshable Recent Labs 06/08/20 0630 06/09/20 0325 06/10/20 0551 WBC 6.62 7.37 5.91 HB 12.5* 9.7* 9.6* HCT 38.8* 30.1* 29.4* PLT 258 229 254 Chemistries: Last 72 Hours (or 3 results) - Refreshable Recent Labs 06/08/20 0630 06/08/20 1108 NA 137 -- K 4.5 -- CL 104 -- BICARB 30 -- BUN 12 -- EGFRAFRICAN >60 -- CR 1.19 -- GLU 117* 97 CA 8.7 -- Imaging Interpretation: No new images. Assessment and Plan Mr. An is a 70 y/o man with afib, prior L ankle MRSA, etoh use disorder who present s with right ankle fracture s/p fusion and repair 06/08 #R femoral vein DVT Likely secondary to right ankle fracture, will need 3 months of anticoagulation, currently on heparin drip however ok to transition to apixaban for a 3 month course (06/02-08/03), will need to hold asa during apixaban (once apixaban is stopped will restart prior home asa). H b currently stable continue on apixiban until 08/03 -Continue apixaban 10mg BID for 1 week, then transition to 5mg BID until 08/03 #Neuropathy Most likely multifactorial in the setting of alcohol abuse, B12 deficiency. Recommend repl etion of B12, currently on loading dose can decrease to 1000mcg daily. -Continue 2000mcg Cyanocobalamin for 2 weeks then decrease to 1000mcg daily on 06/19 #LE edema Patient with LLE and noted that he does take his lasix daily at home. Slight Cr bump day o f surgery, thus held lasix, now restarting at a slightly lower dose, goal is net 500cc neg p er day. Will continue lasix at a low dose on discharge. -Continue lasix 20mg Daily -Continue on Kdur 20mEq daily -Obtain Chem7 daily for the next 3 days #Afib Patient with A. Fib chads vascular 2, continue on digoxin, currently holding aspirin, will be on apixaban for 3 months, can restart aspirin following apixaban course. -Continue digoxin 125 mcg daily -Continue Apixiban #L Heal ulceration Continues to be open wound, have been trying to float the heal however moderately unsuccess ful. Discussed boot to float the heal and promote healing. Other recommendations per wound ostomy. -Float heal at all times (Rooke boot) #Right ankle fracture Unclear unclear etiology of the fracture, s/p repair. Management per Ortho. We appreciate this consult, will continue to follow along with you. Carolyn Ly MD Clinical Hospitalist [facility] Pager [phone] I spent 36 minutes in the care of this patient. Greater than 50% of the time was spent cou nseling and coordination of care, including treatment of neuropathy, L heal ulcer, LE edema. ope, Carolyn Hunt MD - 0 06/09/2020 9:16 AM PDT [facility] Progress Note Hospital Day #8 ID: Mr. An is a 70 y/o man with afib, prior L ankle MRSA, etoh use disorder who present s with right ankle fracture. 24 Hour Events: -S/p R ankle Pin, ankle and subtalar joint fusions and peroneal tendon release 06/08 Current Symptoms: -No SOB, cough, felling well after the surgery. No complaints of pain or other sx. No hemo ptysis or melena -Excited to start thinking about rehab and improving. Physical Examination: Last 24 hour min/max Temp: 36.6 C (97.9 F) Temp Min: 36.3 C (97.3 F) Max: 36.6 C (97.9 F) Pulse: 94 Pulse Min: 69 Max: 96 Resp: 16 Resp Min: 13 Max: 17 BP: 130/71 BP Min: 81/44 Max: 142/58 SpO2: 100 % SpO2 Min: 95 % Max: 100 % Body mass index is 30.53 kg/m. Date 06/05/20 07 - 06/06/20 0659 Shift [id number] [id number] [id number] 24 Hour Total INTAKE Shift Total OUTPUT Urine(mL/kg/hr) 300 300 Shift Total(mL/kg) 300(3) 300(3) Weight (kg) 98.5 98.5 98.5 98.5 General: Comfortable in bed. Head and Eyes: Head atraumatic. EOMI Neck: Supple. Cardiovascular: irregular rate and rhythm no murmurs rubs or gallops Pulmonary: clear bilaterally, no wheezes, rhonchi, rales Abdominal: Soft, nontender, nondistended, normoactive bowel sounds Extremities: 1+ LLE edema noted, L heal ulcer noted (heal not floated Laboratory Interpretation: CBC with diff last 72 hours (or 3 results) - Refreshable Recent Labs 06/07/20 0606/08/20 0606/09/20 0325 WBC 5.78 6.62 7.37 HB 12.2* 12.5* 9.7* HCT 37.9* 38.8* 30.1* PLT 281 258 229 Chemistries: Last 72 Hours (or 3 results) - Refreshable Recent Labs 06/08/20 0606/08/20 1108 NA 137 -- K 4.5 -- CL 104 -- BICARB 30 -- BUN 12 -- EGFRAFRICAN >60 -- CR 1.19 -- GLU 117* 97 CA 8.7 -- Imaging Interpretation: No new images. Assessment and Plan Mr. An is a 70 y/o man with afib, prior L ankle MRSA, etoh use disorder who present s with right ankle fracture s/p fusion and repair 06/08 #R femoral vein DVT Likely secondary to right ankle fracture, will need 3 months of anticoagulation, currently on heparin drip however ok to transition to apixaban for a 3 month course (06/02-08/03), will need to hold asa during apixaban (once apixaban is stopped will restart prior home asa). A lthough the pt had a hb drop, this is likely post-surgical as he has no signs or sx of GIB. -Stop heparin drip -Start apixaban 10mg BID for 1 week, then transition to 5mg BID until 08/03 #Neuropathy Most likely multifactorial in the setting of alcohol abuse, B12 deficiency. Recommend repl etion of B12, currently on loading dose can decrease to 1000mcg daily. -Continue 2000mcg Cyanocobalamin for 2 weeks then decrease to 1000mcg daily on 06/19 #LE edema Patient with LLE and noted that he does take his lasix daily at home. Slight Cr bump day o f surgery, thus held lasix, now restarting at a slightly lower dose, goal is net 500cc neg p er day. -Continue lasix 20mg Daily -Continue on Kdur 20mEq daily -Obtain Chem7 daily for the next 3 days #Afib Patient with A. Fib chads vascular 2, continue on digoxin, currently holding aspirin, will be on apixaban for 3 months, can restart aspirin following apixaban course. -Continue digoxin 125 mcg daily -Stop Heparin drip -Start Apixiban #L Heal ulceration Continues to be open wound, have been trying to float the heal however moderately unsuccess ful. Discussed boot to float the heal and promote healing. Other recommendations per wound ostomy. -Float heal at all times (Rook boot) #Right ankle fracture Unclear unclear etiology of the fracture, s/p repair yesterday. Management per Ortho. We appreciate this consult, will continue to follow along with you. Carolyn Ly MD Clinical Hospitalist [facility] Pager [phone] I spent 39 minutes in the care of this patient. Greater than 50% of the time was spent cou nseling and coordination of care, including treatment of neuropathy, out of bed, L heal ulce r, LE edema. ida Murrieta - 11:33 AM PDT CLINICAL HOSPITALIST SERVICE PROGRESS NOTE 24 Hour Events: - Surgery (0800-11:00am), 400 ml blood loss Current Symptoms: Diane was resting comfortably this afternoon. He denied SOB, chest pain, or dizziness, and r eported minimal pain. He denied any urinary hesitancy or dribbling. And reported that the it chiness of his back has improved. Physical Examination: Last 24 hour min/max Temp: 36.4 C (97.5 F) Temp Min: 36.4 C (97.5 F) Max: 36.7 C (98.1 F) Pulse: 84 Pulse Min: 68 Max: 96 Resp: 14 Resp Min: 14 Max: 16 BP: 106/62 BP Min: 81/44 Max: 133/69 SpO2: 96 % SpO2 Min: 95 % Max: 99 % Body mass index is 30.53 kg/m. Intake/Output 7/28: - Intake: 456 (456 IV) - Output: 1,605 urine (1x output unmeasured) - Net: - 1,148 Daily Weights - 06/01: 86.18 kg - 06/02: none documented - 06/03: none documented - 06/04: 99.9 kg - 06/05: 98.5 kg - 06/06: 99.7 kg - 06/07: 99.3 kg - 06/08: none documented. General: No acute distress, elderly man, with long-finger nails, sitting up brightly in bed HEENT: Atraumatic, normocephalic, no conjunctival injection, mucous membranes moist, sclera anicteric, non-jaundiced Lungs: No increased WOB, CTAB Heart: Irregular rate, no MRG Abd: NT/ND, umbilicus hernia, no fluid wave or distension Extremities: R foot was wrapped. L foot wrinkled w/o pitting or non-pitting edema. Overgrow n toe-nails b/l. Ulcer on the L calcaneus with dressing. Neuro: Alert, oriented, and engaged. Laboratory Interpretation: - Hyponatremia: 137 (06/08) <- 138 (06/06) <- 132 (06/03) <- 135 (06/03) - GFR: 60 (06/08) - Cr: 1.19 (06/08) <- 0.93 <- (06/06) <- 0.93 (06/03) <- 0.65 (06/02) - H&H: 12.2, 37.9 (06/07); 12.2, 37.0 (06/04); 11.2, 33.8 (06/03); 12, 35.1 (06/02) Peripheral Neuropathy Workup - HgbA1c, 5.1 (06/03) - B12, 599 (06/02) - TSH, 3.28 (06/02) - MMA, 0.48 (06/04, elevated) - Homocysteine, 13.4 (06/02, elevated) - Heparin level check (06/08): 0.60 therapeutic Admission Liver Labs (06/01) - Albumin (2.4) - Globulin (4.5) - A/G ratio (0.5) - AST/ALT/Bilirubin, Total Protein wnl Coagulopathy Workup (06/01) - APTT (32.5) - INR: 1.18 - Sed rate: (50) - D-dimer: (3.51) - CRP: 51.2 Original Cardiac Workup - Troponin: <0.02 - BNP: 2,215 - Digoxin: 0.9, therapeutic Micro - COVID-19, negative (06/07) - HIV, negative - Hep C, negative - Hep B, negative - Blood cultures, NGTD Imaging Interpretation: Echo (06/02) -EF (55-60%) Final Impressions: 1. The left ventricular size is normal. 2. There is mild concentric left ventricular hypertrophy. 3. The LV function is normal. 4. Appearance of the aortic valve is suggestive of a prosthesis. The leaflets are mildly c alcified. There is no stenosis or regurgitation. Stroke volume is reduced. 5. There are no obvious valvular vegetations or unexplained regurgitant jets noted on this poor quality transthoracic echocardiogram. 6. There are no prior exams available for comparison. Ibeth Duplex B/L (06/02) "Bilateral: The duplex scanner was used to examine the deep and superficial veins of the ri ght and left lower extremities. Right: There is non-occlusive thrombus in the common femoral vein. The posterior tibial an d peroneal veins were not visualized due to an overlying cast. All other veins are patent wi th otherwise normal flow and responses to augmentation and compression maneuvers and no othe r thrombus is noted. Left: The veins are patent with normal flow and responses to augmentation and compression maneuvers and no thrombus is noted. Conclusions: Abnormal venous examination. Right: There is deep vein thrombosis in the common femoral vein. The echogenic appearance o f the thrombus suggest a chronic process although the vascular laboratory cannot precisely d etermine the age of thrombus. Clinical correlation is suggested. No other thrombus detected . The axial calf veins were no visualized as described above. Left: No deep or superficial venous thrombosis detected. The limitations of the examination described above indicate that the examination does not c onclusively exclude the presence of deep venous thrombosis (DVT). If clinical circumstances continue to suggest the presence of possible DVT a follow-up examination is suggested in 3 t o 5 days." X-Ray Tibia and Fibula 2-way and Ankle 3-way (06/01) "Comminuted, impacted trimalleolar fracture-dislocation with distal tibiofibular syndesmosi s injury, unchanged in alignment compared to same day outside radiograph. No additional frac ture." Brief Summary: Diane An is a 70 y.o. male with a.fib, history of hospitalization (08/2019) for necro tizing soft tissue infection, infection associated with hardware (exposed screw on presentat ion), abscess, osteo of the L ankle, and MRSA, followed w/6 weeks of abx and surgical fixati on (08/2019), presumed EtOH cirrhosis, hx pf varices, undifferentiated b/l peripheral neurop athy, b/l venous stasis, hypertension, and alcohol use disorder (6 beers daily) s/p OR witho ut the surgical correction of a right trimalleolar fracture. In the OR it was decided that catalino [place] was not a good candidate for the particular planned surgery, he is currently awaiting surg [place] on Sunday or Sunday this week. 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 Status: Evolving, was taken to the operating room 06/02, upon starting the procedure surgeon s determined he was not a good candidate for the surgery. Had second surgery today. Plan: -Care per Ortho -Multimodal pain control per Ortho -PT/OT consult #DVT in R common femoral vein. Etiology: Likely secondary to immobilization, leg injury, and infection. Status: Stable. Plan: - Heparin gtt started (06/02) - Recommend starting apixaban at discharge for a minimum of 3 months with close PCP f/u, th ere may be some financial constraints to consider. #Ulcer on L calcaneus Etiology: Skin breakdown likely secondary to immobilization. Status: Ongoing. Plan: - Wound consult completed, appreciate recs: "Gently cleanse with NS and pat dry. Liberally apply Vaseline to periwound skin to soften crusts. Apply a ronaldo-thick layer of Medihoney g el to the open wound bed. Cover with Lyofoam (trach sponge). Secure with stretch net or klin g wrap. Change Q M-W-F and prn. Offload pressure at all times by floating heel off the surfa ce of the mattress." #Skin ulcer/tear on L inner crease of the buttock Etiology: Skin breakdown likely secondary to immobilization. Status: Ongoing. Plan: - Dressing management at the bedside #Pruritus of the back Etiology: Likely secondary to dry skin. Status: Stable, unrelieved with current regimen. Plan: - Recommend continuing moisturizing lotion for relief - Continue hydrocortisone 1% cream #Hyponatremia Etiology: Could be hypervolemic hyponatremia secondary to cirrhotic congestion/intravascula r volume status or hypovolemic hyponatremia due to third spacing due to hypoalbuminemia seco ndary to liver disease. Status: Stabilized. Plan: - Continue to monitor #Creatine bump Etiology: Likely pre-renal related to volume status secondary to furosemid (0.93 to 1.19). Status: Follow. Plan: - Continue to monitor I/Os, and trend Cr - Recommend holding lisinopril today, and halving the dose tomorrow (20 mg vs. 40 mg). - Add on chem 7 tomorrow #Neuropathy Etiology: Chronic bilateral LE neuropathy most likely multifactorial. Suspect related to ch ronic alcohol use and B12 nutritional deficiency. Status: Same as baseline. Plan: - Workup: Hgb a1c (5.1), TSH (wnl), homocysteine (elevated), MMA (elevated), B12 (wnl), HIV (negative), HepB/C (negative). - Recommend to continue home gabapentin 600 TID, discuss decreasing per pt preference - Continue B12 supplementation oral 2000 mcg for 1-2 weeks. Switch to 1000 mcg. #A. Fib Status: Well controlled. Not on AC per choice s/p discussion w/outpatient automation test developer. KERRI [id number] (age, HTN hx). Plan: - Continue home digoxin 125 mcg daily - Resume home ASA 81 per surgeon's comfort - Goal resting rate < 110, continue to monitor #Elevated BNP Etiology: Unclear. In favor of atrial stretching due to volume status. Echo on 06/02 had an EF of 55%-60%, prior echo 08/2018 with EF 65-70%. Plan: - Continue to monitor intravascular status #Cirrhosis #Hypoalbuminemia Etiology: Likely secondary to alcohol use disorder, per H&P intake is about 72oz of beer a day. Status: Well compensated. No encephalopathy, active GI bleeding, variceal bleeding, jaundic e, ascites, or asterixis. LFTs WNL at admission, plts 288, and INR 1.18. Plan: - Recommend daily weights - Hold furosemide 40 mg daily today, halve tomorrow (20 mg), and get chem 7 - Unable to find EGD records (not at [facility], not at [facility]), pt doesn't remember where the pr ocedure occurred. #Alcohol Use Disorder Status: Chronic, uncontrolled. Drinks 72oz of beer a day. No history of withdrawal symptoms per patient and per last admission. Does not report having an issue with his alcohol use. Plan: -Discontinue CIWA protocol -Recommended folic acid 1mg and thiamine 100 mg daily for 3 doses -Appreciate IMPACT reccs. #BPH Status: Controlled. Pt currently asymptomatic Plan: -Recommend restarting tamsulosin 0.4 mg daily Aida Murrieta Sub-Quality Assurance, [employer] [facility] Fourth Year Medical Student Pager #[phone] signed by Carolyn Ly MD at 06/08/2020 5:04 PM PDT Associated attestation - Carolyn Ly MD - 06/08/2020 5:04 PM PDTA student assisted wit h documenting this service. I saw the patient and reviewed and verified all information docu mented by the student and made modifications to such information, when appropriate. Assessment and Problems: Mr. An is a 70 y/o man with afib, prior L ankle MRSA, etoh use disorder who present s with right ankle fracture. S/p reconstruction today. Pt with slight bump in Cr today, wo uld recommend holding Lasix today and decreasing dose to 20mg daily tomorrow. Would recomme nd starting DOAC as soon as it is safe from surgical prospective post operatively. Carolyn Ly MD Ash Worker Clinical and Teaching Hospitalist Services [facility]3] Pager [phone] I spent 37 minutes in the care of this patient. Greater than 50% of the time was spent cou nseling and coordination of care, including treatment of DVT, heal ulcer, PT, discharge plan Aida Pitts - 06/07/2020 8:23 AM PDTFormatting of this note might be different from t he original. CLINICAL HOSPITALIST SERVICE PROGRESS NOTE 24 Hour Events: - Nothing to report Current Symptoms: Diane feels well this morning. He denies any SOB, chest pain, dizziness, N/V, hemoptysis, me roberto, or incontinence. He reports that his back is still itchy despite use the hydrocortison e cream. Denies any alcohol cravings. States that his use fluctuates, and that he is not con cerned about his use. Reports that his urination has increased with the furosemide. Physical Examination: Last 24 hour min/max Temp: 36.4 C (97.5 F) Temp Min: 36.4 C (97.5 F) Max: 36.8 C (98.2 F) Pulse: 72 Pulse Min: 65 Max: 109 Resp: 16 Resp Min: 14 Max: 16 BP: 150/61 BP Min: 126/86 Max: 150/61 SpO2: 98 % SpO2 Min: 95 % Max: 98 % Body mass index is 30.53 kg/m. Intake/Output 06/07: - Intake: 747 (200 PO, 547 IV) - Output: 2,530 urine (1x output stool) - Net: -1,783 ml Daily Weights - 06/01: 86.18 kg - 06/02: none documented - 06/03: none documented - 06/04: 99.9 kg - 06/05: 98.5 kg - 06/06: 99.7 kg - 06/07: 99.3 kg General: No acute distress, elderly man, with long-finger nails, sitting up brightly in bed HEENT: Atraumatic, normocephalic, no conjunctival injection, mucous membranes moist, sclera anicteric, non-jaundiced Lungs: No increased WOB Heart: Irregular rate, no MRG Abd: NT/ND, umbilicus hernia, no fluid wave or distension Extremities: R foot was wrapped.1+ pulse on the L foot. L foot wrinkled w/o pitting or non- pitting edema. Overgrown toe-nails b/l. Ulcer on the L calcaneus with dressing. Neuro: Alert, oriented, and engaged. Laboratory Interpretation: - Hyponatremia: 138 (06/06) <- 132 (06/03) <- 135 (06/03) - Cr: 0.93 <- (06/06) <- 0.93 (06/03) <- 0.65 (06/02) - H&H: 12.2, 37.9 (06/07); 12.2, 37.0 (06/04); 11.2, 33.8 (06/03); 12, 35.1 (06/02) Peripheral Neuropathy Workup - HgbA1c, 5.1 (06/03) - B12, 599 (06/02) - TSH, 3.28 (06/02) - MMA, 0.48 (06/04, elevated) - Homocysteine, 13.4 (06/02, elevated) - Heparin level check (06/07): 0.43 therapeutic Admission Liver Labs (06/01) - Albumin (2.4) - Globulin (4.5) - A/G ratio (0.5) - AST/ALT/Bilirubin, Total Protein wnl Coagulopathy Workup (06/01) - APTT (32.5) - INR: 1.18 - Sed rate: (50) - D-dimer: (3.51) - CRP: 51.2 Original Cardiac Workup - Troponin: <0.02 - BNP: 2,215 - Digoxin: 0.9, therapeutic Micro - COVID-19, negative (06/07) - HIV, negative - Hep C, negative - Hep B, negative - Blood cultures, NGTD Imaging Interpretation: Echo (06/02) -EF (55-60%) Final Impressions: 1. The left ventricular size is normal. 2. There is mild concentric left ventricular hypertrophy. 3. The LV function is normal. 4. Appearance of the aortic valve is suggestive of a prosthesis. The leaflets are mildly c alcified. There is no stenosis or regurgitation. Stroke volume is reduced. 5. There are no obvious valvular vegetations or unexplained regurgitant jets noted on this poor quality transthoracic echocardiogram. 6. There are no prior exams available for comparison. Ibeth Duplex B/L (06/02) "Bilateral: The duplex scanner was used to examine the deep and superficial veins of the ri ght and left lower extremities. Right: There is non-occlusive thrombus in the common femoral vein. The posterior tibial an d peroneal veins were not visualized due to an overlying cast. All other veins are patent wi th otherwise normal flow and responses to augmentation and compression maneuvers and no othe r thrombus is noted. Left: The veins are patent with normal flow and responses to augmentation and compression maneuvers and no thrombus is noted. Conclusions: Abnormal venous examination. Right: There is deep vein thrombosis in the common femoral vein. The echogenic appearance o f the thrombus suggest a chronic process although the vascular laboratory cannot precisely d etermine the age of thrombus. Clinical correlation is suggested. No other thrombus detected . The axial calf veins were no visualized as described above. Left: No deep or superficial venous thrombosis detected. The limitations of the examination described above indicate that the examination does not c onclusively exclude the presence of deep venous thrombosis (DVT). If clinical circumstances continue to suggest the presence of possible DVT a follow-up examination is suggested in 3 t o 5 days." X-Ray Tibia and Fibula 2-way and Ankle 3-way (06/01) "Comminuted, impacted trimalleolar fracture-dislocation with distal tibiofibular syndesmosi s injury, unchanged in alignment compared to same day outside radiograph. No additional frac ture." Brief Summary: Diane An is a 70 y.o. male with a.fib, history of hospitalization (08/2019) for necro tizing soft tissue infection, infection associated with hardware (exposed screw on presentat ion), abscess, osteo of the L ankle, and MRSA, followed w/6 weeks of abx and surgical fixati on (08/2019), presumed EtOH cirrhosis, hx pf varices, undifferentiated b/l peripheral neurop athy, b/l venous stasis, hypertension, and alcohol use disorder (6 beers daily) s/p OR witho ut the surgical correction of a right trimalleolar fracture. In the OR it was decided that catalino [place] was not a good candidate for the particular planned surgery, he is currently awaiting surg [place] on Sunday or Sunday this week. 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 Status: Evolving, was taken to the operating room 06/02, upon starting the procedure surgeon s determined he was not a good candidate for the surgery, and are now contemplating other kenyon rgical options. Will be going back to surgery tomorrow. Plan: -Care per Ortho -Multimodal pain control per Ortho -PT/OT consult #DVT in R common femoral vein. Etiology: Likely secondary to immobilization, leg injury, and infection. Status: Stable. Plan: - Heparin gtt started (06/02) - Recommend starting apixaban at discharge for a minimum of 3 months with close PCP f/u, th ere may be some financial constraints to consider. #Ulcer on L calcaneus Etiology: Skin breakdown likely secondary to immobilization. Status: Ongoing. Plan: - Wound consult completed, appreciate recs: "Gently cleanse with NS and pat dry. Liberally apply Vaseline to periwound skin to soften crusts. Apply a ronaldo-thick layer of Medihoney g el to the open wound bed. Cover with Lyofoam (trach sponge). Secure with stretch net or klin g wrap. Change Q M-W- and prn. Offload pressure at all times by floating heel off the surfa ce of the mattress." #Skin ulcer/tear on L inner crease of the buttock Etiology: Skin breakdown likely secondary to immobilization. Status: Ongoing. Plan: - Dressing management at the bedside #Pruritus of the back Etiology: Likely secondary to dry skin. Status: Stable, unrelieved with current regimen. Plan: - Recommend continuing moisturizing lotion for relief - Continue hydrocortisone 1% cream #Hyponatremia Etiology: Could be hypervolemic hyponatremia secondary to cirrhotic congestion/intravascula r volume status or hypovolemic hyponatremia due to third spacing due to hypoalbuminemia seco ndary to liver disease. Status: Stabilized. Plan: - Add on chem 7 tomorrow #Creatinine bump Etiology: With BUN:CR 10, less likely a prerenal source, in favor of an obstructive/rentent ion process in the setting of BPH and recent anaesthesia. Status: Stable/resolved. Plan: - Continue to monitor I/Os, and trend Cr - Recommend bladder scan post-voids Q6 hrs - Recommend straight cath if PVR >350 - Add on chem 7 tomorrow #Neuropathy Etiology: Chronic bilateral LE neuropathy most likely multifactorial. Suspect related to ch ronic alcohol use and B12 nutritional deficiency. Status: Same as baseline. Plan: - Workup: Hgb a1c (5.1), TSH (wnl), homocysteine (elevated), MMA (elevated), B12 (wnl), HIV (negative), HepB/C (negative). - Recommend to continue home gabapentin 600 TID, discuss decreasing per pt preference - Continue B12 supplementation oral 2000 mcg for 1-2 weeks. #A. Fib Status: Well controlled. Not on AC per choice s/p discussion w/outpatient automation test developer. KERRI [id number] (age, HTN hx). Plan: - Continue home digoxin 125 mcg daily - Resume home ASA 81 per surgeon's comfort - Goal resting rate < 110, continue to monitor #Elevated BNP Etiology: Unclear. In favor of atrial stretching due to volume status. Echo on 06/02 had an EF of 55%-60%, prior echo 08/2018 with EF 65-70%. Plan: - Continue to monitor intravascular status #Cirrhosis #Hypoalbuminemia Etiology: Likely secondary to alcohol use disorder, per H&P intake is about 72oz of beer a day. Status: Well compensated. No encephalopathy, active GI bleeding, variceal bleeding, jaundic e, ascites, or asterixis. LFTs WNL at admission, plts 288, and INR 1.18. Plan: - Recommend daily weights - Restarted furosemide 40 mg daily (06/05) - Unable to find EGD records (not at [facility], not at [facility]), pt doesn't remember where the pr ocedure occurred. #Alcohol Use Disorder Status: Chronic, uncontrolled. Drinks 72oz of beer a day. No history of withdrawal symptoms per patient and per last admission. Does not report having an issue with his alcohol use. Plan: -Discontinue CIWA protocol -Recommended folic acid 1mg and thiamine 100 mg daily for 3 doses -Appreciate IMPACT reccs. #BPH Status: Controlled. Pt currently asymptomatic Plan: -Recommend restarting tamsulosin 0.4 mg daily Aida Murrieta Sub-Quality Assurance, [facility] Fourth Year Medical Student Pager #[phone] signed by Carolyn Ly MD at 06/07/2020 5:28 PM PDT Associated attestation - Carolyn Ly MD - 06/07/2020 5:28 PM PDTA student assisted wit h documenting this service. I saw the patient and reviewed and verified all information docu mented by the student and made modifications to such information, when appropriate. Assessment and Problems: Mr. An is a 70 y/o man with afib, prior L ankle MRSA, etoh use disorder who present s with right ankle fracture. Ortho planning on reconstruction tomorrow. Will need to start apixaban when it is safe from surgical prospective for VTE following surgery. Carolyn Ly MD Ash Worker Clinical and Teaching Hospitalist Services [facility] Pager [phone] I spent 42 minutes in the care of this patient. Greater than 50% of the time was spent cou nseling and coordination of care, including treatment of DVT, leg wounds, discharge planning . Carolyn Ly MD - 06/06/2020 2:33 PM PDT [facility] Progress Note Hospital Day #5 ID: Mr. An is a 70 y/o man with afib, prior L ankle MRSA, etoh use disorder who present s with right ankle fracture. 24 Hour Events: -No acute events Current Symptoms: -No SOB, cough, he was up to chair yesterday. No CP, pressure, no hemoptysis, melena. -Feeling well, eating a healthy meal, looking forward to gaining clarity on surgical plan Physical Examination: Last 24 hour min/max Temp: 36.7 C (98.1 F) Temp Min: 36.7 C (98.1 F) Max: 37 C (98.6 F) Pulse: 97 Pulse Min: 66 Max: 97 Resp: 16 Resp Min: 16 Max: 18 BP: 140/61 BP Min: 124/76 Max: 151/59 SpO2: 98 % SpO2 Min: 94 % Max: 98 % Body mass index is 30.66 kg/m. Date 06/05/20 07 - 06/06/20 0659 Shift [id number] 1211-4617 [id number] 24 Hour Total INTAKE Shift Total OUTPUT Urine(mL/kg/hr) 300 300 Shift Total(mL/kg) 300(3) 300(3) Weight (kg) 98.5 98.5 98.5 98.5 General: Comfortable in bed. Head and Eyes: Head atraumatic. EOMI Neck: Supple. Cardiovascular: irregular rate and rhythm no murmurs rubs or gallops Pulmonary: clear bilaterally, no wheezes, rhonchi, rales Abdominal: Soft, nontender, nondistended, normoactive bowel sounds Extremities: 1.5+ LLE edema noted, L heal ulcer noted Laboratory Interpretation: CBC with diff last 72 hours (or 3 results) - Refreshable Recent Labs 06/04/20 0107 06/05/20 0621 06/06/20 0612 WBC 5.95 4.67 5.78 HB 12.2* 11.6* 12.2* HCT 37.0* 35.8* 37.1* PLT 276 280 280 Chemistries: Last 72 Hours (or 3 results) - Refreshable Recent Labs 06/06/20 0612 NA 138 K 3.7 CL 102 BICARB 31 BUN 9 EGFRAFRICAN >60 CR 0.93 GLU 112* CA 8.9 Imaging Interpretation: No new images. Assessment and Plan Mr. An is a 70 y/o man with afib, prior L ankle MRSA, etoh use disorder who present s with right ankle fracture. #R femoral vein DVT Likely secondary to right ankle fracture, will need 3 months of anticoagulation, will sukhwinder nue on heparin drip prior to surgery and following surgery can transition to apixaban for 3- month course. -Continue heparin drip -Start apixaban following surgery (3 month course) #Neuropathy Most likely multifactorial in the setting of alcohol abuse, B12 deficiency. Recommend repl etion of B12. -Start 2000mcg Cyanocobalamin for 2 weeks then continue on 1000mcg daily after #LE edema Patient with LLE and noted that he does take his lasix daily at home. Will continue lasix currently and monitor Chem7 for the next few days. -Continue home lasix 40mg Daily -Start on Kdur 20mEq daily #Afib Patient with A. Fib chads vascular 2, continue on digoxin, currently holding aspirin, will be on apixaban for 3 months, can restart aspirin following apixaban course. -Continue digoxin 125 mcg daily -Heparin drip #Right ankle fracture Unclear unclear etiology of the fracture, likely surgery next week. We appreciate this consult, will continue to follow along with you. Carolyn Ly MD Clinical Hospitalist [facility] Pager [phone] I spent 36 minutes in the care of this patient. Greater than 50% of the time was spent cou nseling and coordination of care, including treatment of neuropathy, exercise, surgical plan and LE edema. Chioma Benavidez, PharmD - 06/05/2020 2:34 PM PDTAnticipate patient will be transitioned from heparin IV drip to ap ixaban (Eliquis) 5 mg BID at time of discharge or sooner. Due to patient's copay of ~$183 per month. Enrolled patient in [facility] Medication Assistance Program ( ) and initiated paperwork for financial assistance on 06/03/20. Submitted provider portion of application (signed by Dr. Lo Calderon) and patient's kendy d copy of [employer] HIPAA form on 06/04/20. Now awaiting patient's portion of application. Provided patient with his portion of the lee lication at bedside. His portion of the application requires the following information: Patient's annual household income info Patient's signature A signed copy of patient's 2018 or 2018 Federal Tax 1040 form. If patient did not file taxes, one (1) of the following must be provided: ? a copy of 2019 W2 or 1099 ? a copy of 2019 Social Security benefits letter or pension award ? recent [employer] stubs showing year to date totals (30 days accumulative) ? unemployment statement ? If none of these options apply to patient, then a personal letter explaining your current situation is needed He expressed that he is overwhelmed with all that is happening to him, including plan for s urgery/amputation this week. Explained to patient that his portion of the application can be completed after he is discharged to home and work with [employer] on reimbursement if financial as sistance is granted. He stated he is able to pay out of pocket for now. Explained to patient that financial assistance is not guaranteed despite application. He expressed understanding and questions were answered. [facility] will follow up with patient in 2 weeks. [facility] is aware that patient is currently admitted . Chioma Hilliard PharmD 06/05/20 Hoa Dejesus RN - 06/04/2020 10:25 AM PDTAssociated Order(s): IP CONSULT TO WOUND OSTOMYWound Care Consu lt Wound location: Left Calcaneous Dimensions (LxWxD in cm): 4x3.5x.3cm Wound bed: Red, smooth; poor granulation tissue Dry/slightly moist Periwound skin: Dry, flaking, crusted Exudate amount: Scant Exudate type: Serosanguinous Odor: None Topical Care Recommendations: Gently cleanse with NS and pat dry Liberally apply Vaseline to periwound skin to soften crusts Apply a ronaldo-thick layer of Medihoney gel to the open wound bed Cover with Lyofoam (trach sponge) Secure with stretch net or angelito wrap Change Q M-W-F and prn Additional recommendations: Offload pressure at all times by floating heel off the surface of the mattress. MediHoney Please have your TUB MENDER order MediHoney for this patient through [employer]. T he item number for this product is MediHoney Gel #[id number]. Please only order 1-2 dressings at a time and allow 24 hours for the product to be delivere d." rAida mckeon - 06/04/2020 9:15 AM PDT CLINICAL HOSPITALIST SERVICE PROGRESS NOTE 24 Hour Events: - 2 x BM Current Symptoms: Diane feels well this morning and reports getting high quality deep sleep. He denies any SOB , chest pain, or dizziness. He reports that his itchy back has improved with moisturizing lo tion. Denies any shaking or alcohol-related withdrawal symptoms. We discussed where his EGD records could be, and he wasn't sure. We checked [facility] and [facility] and neither facility had his records. Physical Examination: Last 24 hour min/max Temp: 36.6 C (97.9 F) Temp Min: 36.4 C (97.5 F) Max: 36.7 C (98.1 F) Pulse: 65 Pulse Min: 54 Max: 86 Resp: 16 Resp Min: 14 Max: 16 BP: 150/73 BP Min: 122/56 Max: 150/73 SpO2: 95 % SpO2 Min: 95 % Max: 98 % Body mass index is 26.5 kg/m. Intake/Output 06/03: - Intake: 1,885 (1,337 PO, 518 V) - Output: 575 urine (2x output stool) - Net: +1,280 Daily Weights - 06/01: 86.18 kg - 06/02: none documented - 06/03: none documented General: No acute distress, elderly man, with long-finger nails, sitting up in bed drinking coffee and cast on his lower R leg HEENT: Atraumatic, normocephalic, no conjunctival injection, mucous membranes moist, sclera anicteric, non-jaundiced Lungs: CTAB, no increased WOB Heart: Irregular rate, no MRG Abd: NT/ND, umbilicus hernia, no fluid wave or distension Extremities: R foot was wrapped.1+ pulse on the L foot. L foot edematous, w/non-pitting alva ma. Overgrown toe-nails b/l. Ulcer on the L calcaneus measuring approximately 1.5-2 inches i n diameter w/o exudate. Neuro: Alert, oriented, and engaged. Laboratory Interpretation: - Hyponatremia: 132 (06/03) <- 135 (06/03) - Cr: 0.93 (06/03) <- 0.65 (06/02) - H&H: 12.2, 37.0 (06/04); 11.2, 33.8 (06/03); 12, 35.1 (06/02) Peripheral Neuropathy Workup - HgbA1c, 5.1 (06/03) - B12, 599 (06/02) - TSH, 3.28 (06/02) - MMA, 0.48 (06/04, elevated) - Homocysteine, 13.4 (06/02, elevated) - Heparin level check (06/04): 0.39 therapeutic Admission Liver Labs (06/01) - Albumin (2.4) - Globulin (4.5) - A/G ratio (0.5) - AST/ALT/Bilirubin, Total Protein wnl Coagulopathy Workup (06/01) - APTT (32.5) - INR: 1.18 - Sed rate (50) - D-dimer (3.51) - CRP 51.2 Original Cardiac Workup - Troponin <0.02 - BNP 2,215 - Digoxin 0.9, therapeutic Micro - COVID-19, negative - HIV, negative - Hep C/B, pending - Blood cultures, no growth to date, prelim EKG (06/01) Afib, - HR 89 - QRSD 93 - QT 353 - QTcB 429 - QRS -49 - T 39 Imaging Interpretation: Echo (06/02) -EF (55-60%) Final Impressions: 1. The left ventricular size is normal. 2. There is mild concentric left ventricular hypertrophy. 3. The LV function is normal. 4. Appearance of the aortic valve is suggestive of a prosthesis. The leaflets are mildly c alcified. There is no stenosis or regurgitation. Stroke volume is reduced. 5. There are no obvious valvular vegetations or unexplained regurgitant jets noted on this poor quality transthoracic echocardiogram. 6. There are no prior exams available for comparison. Edmond Duplex B/L (06/02) "Bilateral: The duplex scanner was used to examine the deep and superficial veins of the ri ght and left lower extremities. Right: There is non-occlusive thrombus in the common femoral vein. The posterior tibial an d peroneal veins were not visualized due to an overlying cast. All other veins are patent wi th otherwise normal flow and responses to augmentation and compression maneuvers and no othe r thrombus is noted. Left: The veins are patent with normal flow and responses to augmentation and compression maneuvers and no thrombus is noted. Conclusions: Abnormal venous examination. Right: There is deep vein thrombosis in the common femoral vein. The echogenic appearance o f the thrombus suggest a chronic process although the vascular laboratory cannot precisely d etermine the age of thrombus. Clinical correlation is suggested. No other thrombus detected . The axial calf veins were no visualized as described above. Left: No deep or superficial venous thrombosis detected. The limitations of the examination described above indicate that the examination does not c onclusively exclude the presence of deep venous thrombosis (DVT). If clinical circumstances continue to suggest the presence of possible DVT a follow-up examination is suggested in 3 t o 5 days." X-Ray Tibia and Fibula 2-way and Ankle 3-way (06/01) "Comminuted, impacted trimalleolar fracture-dislocation with distal tibiofibular syndesmosi s injury, unchanged in alignment compared to same day outside radiograph. No additional frac ture." Brief Summary: Diane An is a 70 y.o. male with a.fib, history of hospitalization (08/2019) for necro tizing soft tissue infection, infection associated with hardware (exposed screw on presentat ion), abscess, osteo of the L ankle, and MRSA, followed w/6 weeks of abx and surgical fixati on (08/2019), presumed EtOH cirrhosis, hx pf varices, undifferentiated b/l peripheral neurop athy, b/l venous stasis, hypertension, and alcohol use disorder (6 beers daily) s/p OR witho ut the surgical correction of a right trimalleolar fracture. In the OR it was decided that catalino [place]ton was not a good candidate for the particular planned surgery, he is currently waiting surge ry on Sunday/Sunday next week. 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 Status: Evolving, was taken to the operating room 06/02, upon starting the procedure surgeon s determined he was not a good candidate for the surgery, and are now contemplating other kenyon rgical options. Will be going back to surgery Sunday/ next week. Plan: -Care per Ortho -Multimodal pain control per Ortho -Blood cultures, prelim reports, no growth to date -PT/OT consult #DVT in R common femoral vein. Etiology: Likely secondary to immobilization, leg injury, and infection. Status: Stable. Plan: - Heparin gtt started (06/02) - Recommend starting apixaban at discharge for a minimum of 3 months with close PCP f/u, th ere may be some financial constraints to consider. #Ulcer on L calcaneus Etiology: Skin breakdown likely secondary to immobilization. Status: Evolving. Plan: - Wound consult completed, appreciate recs: "Gently cleanse with NS and pat dry. Liberally apply Vaseline to periwound skin to soften crusts. Apply a ronaldo-thick layer of Medihoney g el to the open wound bed. Cover with Lyofoam (trach sponge). Secure with stretch net or klin g wrap. Change Q M-W-F and prn. Offload pressure at all times by floating heel off the surfa ce of the mattress." #Skin ulcer/tear on L inner crease of the buttock Etiology: Skin breakdown likely secondary to immobilization. Status: Evolving. Plan: - Dressing management at the bedside #Pruritus of the back Etiology: Likely secondary to dry skin. Status: Evolving. Plan: - Recommend continuing moisturizing lotion for relief. #Hyponatremia Etiology: Could be hypervolemic hyponatremia secondary to cirrhotic congestion/intravascula r volume status or hypovolemic hyponatremia due to third spacing due to hypoalbuminemia seco ndary to liver disease. In favor of hypervolemic hypovolemia, currently net + 1,030. Status: Evolving, downtrending from 135 to 132. Plan: - Continue to monitor #Creatinine bump Etiology: With BUN:CR 12 less likely a prerenal source, in favor of an obstructive/rententi on process in the setting of BPH and recent anaesthesia. Status: Evolving, from 0.65 to 0.93. Plan: - Continue to monitor I/Os, and trend Cr - Recommend bladder scan post-voids Q6 hrs - Recommend straight cath if PVR >350 #Neuropathy Etiology: Chronic bilateral LE neuropathy most likely multifactorial. Suspect related to ch ronic alcohol use and nutritional deficiency, is low B12. Status: Same as baseline. Plan: - Workup: Hgb a1c (5.1), TSH (wnl), homocysteine (elevated), MMA (elevated), B12 (wnl), HIV (negative) - Hep B/Hep C, pending - Recommend to continue home gabapentin 600 TID, discuss decreasing per pt preference - Recommend starting B12 supplementation oral 1000 to 2000 mcg for 1-2 weeks. #A. Fib Status: Well controlled. Not on AC per choice s/p discussion w/outpatient automation test developer. KERRI [id number] (age, HTN hx). Plan: - Continue home digoxin 125 mcg daily - Resume home ASA 81 per surgeon's comfort - Goal resting rate < 110, continue to monitor #Elevated BNP Etiology: Unclear. In favor of atrial stretching due to volume status. Echo on 06/02 had an EF of 55%-60%, prior echo 08/2018 with EF 65-70%. Plan: - Continue to monitor intravascular status #Cirrhosis #Hypoalbuminemia Etiology: Likely secondary to alcohol use disorder, per H&P intake is about 72oz of beer a day. Status: Well compensated. No encephalopathy, active GI bleeding, variceal bleeding, jaundic e, ascites, or asterixis. LFTs WNL at admission, plts 288, and INR 1.18. Plan: - Recommend daily weights - Hold home furosemide 40 mg daily, restart in the coming days - In the process of trying to find EGD records (not at [facility], not at [facility]) #Alcohol Use Disorder Status: Chronic, uncontrolled. Drinks 72oz of beer a day. No history of withdrawal symptoms per patient and per last admission. Plan: -Discontinue CIWA protocol -Recommend folic acid 1mg and thiamine 100 mg daily for 3 doses -Appreciate IMPACT reccs #BPH Status: Controlled. Pt currently asymptomatic Plan: -Recommend restarting tamsulosin 0.4 mg daily Aida Murrieta Sub-Quality Assurance, [facility] Fourth Year Medical Student Pager #[phone] signed by Carolny Ly MD at 06/04/2020 4:35 PM PDT Associated attestation - Carolyn Ly MD - 06/04/2020 4:35 PM PDTA student assisted wit h documenting this service. I saw the patient and reviewed and verified all information docu mented by the student and made modifications to such information, when appropriate. Assessment and Problems: Mr. An is a 70 y/o man with afib, prior L ankle MRSA, etoh use disorder who present s with right ankle fracture. Currently awaiting ortho plan for surgery. For DVT will need 3 months of apixiban (heparin drip prior to possible surgery). Will recommend B12 repletion . Carolyn Ly MD Ash Worker Clinical and Teaching Hospitalist Services [facility] Pager [phone] I spent 37 minutes in the care of this patient. Greater than 50% of the time was spent cou nseling and coordination of care, including treatment of DVT, leg wounds. Leilani Nixon NP - 06/03/2020 3:26 PM PDTAssociated Order(s): IP CONSULT TO ADDICTION ME DICINEThe following clinical information related to alcohol or drug abuse is CONFIDENTIAL an d protected by Federal Law. ACCESS TO THIS INFORMATION IS ON A [id number] BASIS ONLY AND I S PROVIDED FOR THE PURPOSE OF ASSURING APPROPRIATE MEDICAL CARE. Federal regulations (42 CFR , Part 2) prohibit the release of this information without specific written consent of the p atient. A general authorization for the release of medical information is NOT sufficient for the purpose of releasing the following information. ADDICTION (IMPACT) CONSULT NOTE Author: Leilani Nixon NP Primary Team Attending: Malik Mcmillan MD Hospital Day: 2 Call received from primary team for help with treatment options for Alcohol Use Disorder (A UD) for this patient. Due to current [facility] census, a formal IMPACT team consult will not be completed, but the following information can help guide patient's options for AUD MAT at [facility]. Consult unit for resources. Additionally, if patient is interested in meeting [facility] us next week, please do not hesitant to re-consult us, and we are happy to meet with the patient. Based on review of his record, I would recommend acamprosate 666 mg TID if a medication is considered for him at discharge. Additional information about medications is below. There are 3 FDA approved medications for the treatment of Alcohol Use Disorder 1. Naltrexone (oral and IM) 2. Acamprosate (oral) 3. Disulfram (oral) Clinicians should consider prescribing one of these medications when treating a patient who is dependent on alcohol or who has stopped drinking but is experiencing problems including cravings or relapses. Patients with moderate or severe alcohol use disorder, including those who have physiologic dependence or who are experiencing cravings and have not improved in r esponse to psychosocial approaches alone, are particularly strong candidates for medication- assisted treatment. Medications should be prescribed as part of a comprehensive treatment approach that include s counseling and other psychosocial therapies Please take the following into consideration prior to prescribing 1. Naltrexone - blocks opioid receptors that are involved in the rewarding effects of drink ing and craving for etoh. The ER version is not currently available in the hospital without exception by the IMPACT team. If you would like to have the patient considered for ER naltre xone (vivitrol), please contact the IMPACT team. Patients should be detoxed off of etoh and opioids prior to starting the medication Dose: 50mg orally once daily Efficacy: Oral naltrexone has been shown to reduce relapse to heavy drinking Side Effects: nausea, vomiting, hepatitic toxicity, precipitated opioid withdrawal if given within 5-10 days of opioid use Contraindications: avoid in patients with AST >5 times the ULN Monitoring: check LFTs every 3-6 months 2. Acamprosate - reduces symptoms of protracted abstinence by counteracting the imbalance b etween glutamatergic and GABAergic systems associated with chronic etoh exposure. Patients s hould be abstinent from etoh at the time of treatment initiation for at least 3-5 days. Dose: 666mg oral TID Efficacy: Acamprosate has been shown to be an effective treatment for dependence on alcohol , with no abuse potential and no significant interaction with medications commonly used to t reat substance use and mental disorders.Acamprosate s efficacy is primarily due to its eduardo lity to reduce the negative symptoms associated with the period immediately following alcoho l withdrawal. Side Effects: diarrhea, TORRE, insomnia, anxiety, muscle weakness, dizziness, suicidal ideatio n (rare) CI: severe renal impairment, for patients with moderate renal impairment (30-50mL/min), a r educed dose of acamprosate is recommended (333mg TID) Monitoring: check renal function every 3-6 months or if concern 3. Disulfram - not generally recommended for patients, but can be used for patients committ ed to abstinence and are willing to take disulfram daily with supervision. Dose: 250mg orally once daily Efficacy: prevention and limitation of relapse, less data for benefit than the other 2 medi cations Side Effects: will cause a significant physical reaction including n/v, flusing, and heart palpitations if used with etoh Contraindications: CAD, suicidality, transaminitis Monitoring: check LFTs every 3-6 months I spent 15 minutes in the care of this patient. Greater than 50% of the time was spent coun seling and coordination of care, including alcohol use disorder. , Leilani Nixon, MSN, RADIOLOGY TECHNOLOGIST-C pager [phone] Improving Addiction Care Team ([facility]) Chioma Benavidez, PharmD - 06/03/2020 11:25 AM PDT Pharmacy Services: Admission Medication Reconciliation Prior to Admission Medications: Medication Sig acetaminophen 325 mg oral tablet Take 325 mg by mouth every six hours as needed (pain). aspirin EC 81 mg oral tablet,delayed release (DR/EC) Take 81 mg by mouth once daily. In dications: atrial fibrillation cephALEXin 500 mg oral capsule Take 500 mg by mouth every six hours. digoxin 125 mcg oral tablet Take 125 mcg by mouth once daily. Indications: Ventricular Rate Control in Atrial Fibrillation. furosemide 40 mg oral tablet Take 40 mg by mouth once daily. gabapentin 600 mg oral tablet Take 600 mg by mouth two times daily. melatonin 5 mg oral tablet Take 5 mg by mouth once daily in the evening. multivitamin-iron oral tablet Take 1 tablet by mouth once daily. The above list reflects the patient's prior to admission medication use and is complete and accurate to the best of my knowledge. Home medication assessment: Patient's digoxin and gabapentin has been resumed during this hospital stay. Confirmed with patient and pharmacy records that he has been on gabapentin 600 mg BID prior to admission. Pt reported that he often takes gabapentin 600 mg only once daily, since he d oes not feel it provides benefit. He reports that he was not taking omeprazole or tamsulosin prior to this admission. His [facility] pharmacy also confirmed that they do not have active Rx for these meds. May consider re assess whether patient require these meds during this hospital stay. He also has an active prescription for furosemide, but patient reported that he was not parmjit ing it. He reports taking a potassium dietary supplement that he purchases over the counter. These variations will be discussed with the primary care team to determine clinical appropr iateness. Insurance Status: Medicare Part D [employer] Adherence: Moderate Source of Medication Information: Patient and Pharmacy Pharmacy records from: [id number], [address] [place] [address]; Tel: Reliability: Reliable Anticipated Needs for Discharge: Anticipate patient will need to be on an oral anticoagulant. Called patient's Rx plan, Carlene ( ) and patient has a coinsurance of 40% for brand name prescriptions: - Eliquis 5 mg BID for 30 day supply = $183.07 (same cost for Xarelto and Pradaxa is on a [facility] expensive tier) - warfarin #100 tablet bottle = ~$7 per fill Spoke with Medication Assistance Program at [facility] - submitted application for bakari Downey round time for response is about 2-3 weeks. Discussed cost with patient - he prefer to pay for Eliquis rather than use warfarin. He sta katlin that he can afford $183.07 coinsurance per month if the duration of therapy is 3 months. All questions concerning medications, including OTC and herbal products, were addressed. For questions regarding this information please contact pharmacy, pager [phone] Chioma Hilliard PharmD Aida Deleon - 06/03/2020 8:00 AM PDTFormatting of this note might be different fro m the original. CLINICAL HOSPITALIST SERVICE PROGRESS NOTE 24 Hour Events: - Heparin drip started - Small ulcer/tear buttock - Mild urinary incontinence Current Symptoms: Diane feels well this morning, pain free, and well-rested. He denies any SOB, chest pain, or dizziness. He reports an itchy back this morning and requested some moisturizing lotion. He indicated that he is interested in sitting up in a chair today and is ready to move. He has not had a BM since hospitalization. Physical Examination: Last 24 hour min/max Temp: 36.5 C (97.7 F) Temp Min: 36.3 C (97.3 F) Max: 37.2 C (99 F) Pulse: 66 Pulse Min: 61 Max: 115 Resp: 16 Resp Min: 14 Max: 22 BP: 142/74 BP Min: 123/70 Max: 146/67 SpO2: 99 % SpO2 Min: 95 % Max: 100 % Body mass index is 26.5 kg/m. Intake/Output 06/02: - Intake: 1530 (980 PO, 550 IV) - Output: 500 urine (2x unmeasured urine) - Net: +1,030 General: No acute distress, elderly man, with long-finger nails, and cast on his lower L le g HEENT: Atraumatic, normocephalic, no conjunctival injection, no nasal discharge, mucous mem branes moist, sclera anicteric. Lungs: CTAB, no increased WOB Heart: Irregular rate, no MRG, JVP @ 9cm head of bed at 45 Abd: NT/ND, umbilicus hernia, no fluid wave or distension Extremities: R foot was wrapped. Unable to palpate pulse on L foot. L foot edematous, w/non -pitting edema. Overgrown toe-nails b/l. Ulcer on the R calcaneus measuring approximately 1. 5-2 inches in diameter w/o exudate. Neuro: Alert, oriented, and engaged. No asterixis. Laboratory Interpretation: - Hyponatremia: 132 (06/03) <- 135 (06/03) - Cr: 0.93 (06/03) <- 0.65 (06/02) - H&H: 11.2, 33.8 (06/03); 12, 35.1 (06/02) Peripheral Neuropathy Workup - HgbA1c, 5.1 (06/03) - B12, 599 (06/02) - TSH, 3.28 (06/02) - MMA, pending - Homocysteine, pending Admission Liver Labs (06/01) - Albumin (2.4) - Globulin (4.5) - A/G ratio (0.5) - AST/ALT/Bilirubin, Total Protein wnl Coagulopathy Workup - Heparin level check: 0.23 (subtherapeutic), < 0.10 - APTT (32.5) - INR: 1.18 - Sed rate (50) - D-dimer (3.51) - CRP 51.2 Original Cardiac Workup - Troponin <0.02 - BNP 2,215 - Digoxin 0.9, therapeutic Micro - COVID-19, negative - HIV, pending - Blood cultures, pending EKG (06/01) Afib, - HR 89 - QRSD 93 - QT 353 - QTcB 429 - QRS -49 - T 39 Imaging Interpretation: Echo (06/02) -EF (55-60%) Final Impressions: 1. The left ventricular size is normal. 2. There is mild concentric left ventricular hypertrophy. 3. The LV function is normal. 4. Appearance of the aortic valve is suggestive of a prosthesis. The leaflets are mildly c alcified. There is no stenosis or regurgitation. Stroke volume is reduced. 5. There are no obvious valvular vegetations or unexplained regurgitant jets noted on this poor quality transthoracic echocardiogram. 6. There are no prior exams available for comparison. Ibeth Duplex B/L (06/02) "Bilateral: The duplex scanner was used to examine the deep and superficial veins of the ri ght and left lower extremities. Right: There is non-occlusive thrombus in the common femoral vein. The posterior tibial an d peroneal veins were not visualized due to an overlying cast. All other veins are patent wi th otherwise normal flow and responses to augmentation and compression maneuvers and no othe r thrombus is noted. Left: The veins are patent with normal flow and responses to augmentation and compression maneuvers and no thrombus is noted. Conclusions: Abnormal venous examination. Right: There is deep vein thrombosis in the common femoral vein. The echogenic appearance o f the thrombus suggest a chronic process although the vascular laboratory cannot precisely d etermine the age of thrombus. Clinical correlation is suggested. No other thrombus detected . The axial calf veins were no visualized as described above. Left: No deep or superficial venous thrombosis detected. The limitations of the examination described above indicate that the examination does not c onclusively exclude the presence of deep venous thrombosis (DVT). If clinical circumstances continue to suggest the presence of possible DVT a follow-up examination is suggested in 3 t o 5 days." X-Ray Tibia and Fibula 2-way and Ankle 3-way (06/01) "Comminuted, impacted trimalleolar fracture-dislocation with distal tibiofibular syndesmosi s injury, unchanged in alignment compared to same day outside radiograph. No additional frac ture." Brief Summary: Diane An is a 70 y.o. male with a.fib, history of hospitalization (08/2019) for necro tizing soft tissue infection, infection associated with hardware (exposed screw on presentat ion), abscess, osteo of the L ankle, and MRSA, followed w/6 weeks of abx and surgical fixati on (08/2019), presumed EtOH cirrhosis, hx pf varices, undifferentiated b/l peripheral neurop athy, b/l venous stasis, hypertension, and alcohol use disorder (6 beers daily) s/p OR witho ut the surgical correction of a right trimalleolar fracture. In the OR it was decided that catalino [place] was not a good candidate for the particular surgery that was planned. 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 Status: Evolving, was taken to the operating room yesterday (06/02), upon starting the proce dure surgeons determined he was not a good candidate for the surgery, and are now contemplat ing other surgical options, including amputation. Plan: -Care per Ortho -Multimodal pain control per Ortho -Blood cultures, pending results, we are following -PT/OT consult #DVT in R common femoral vein. Etiology: Likely secondary to immobilization, leg injury, and infection. Status: Stable. Plan: - Heparin gtt started (06/02) - Recommend starting apixaban at discharge for a minimum of 3 months with close PCP f/u, th ere may be some financial constraints to consider. #Ulcer on L calcaneus Etiology: Skin breakdown likely secondary to immobilization. Status: Evolving. Plan: - Recommend wound consult and management. #Skin ulcer/tear on L inner crease of the buttock Etiology: Skin breakdown likely secondary to immobilization. Status: Evolving. Plan: - Dressing management at the bedside #Pruritus of the back Etiology: Likely secondary to dry skin. Status: Evolving. Plan: - Recommend moisturizing lotion for relief. #Hyponatremia Etiology: Could be hypervolemic hyponatremia secondary to cirrhotic congestion/intravascula r volume status or hypovolemic hyponatremia due to third spacing due to hypoalbuminemia seco ndary to liver disease. In favor of hypervolemic hypovolemia, currently net + 1,030. Status: Evolving, downtrending from 135 to 132. Plan: - Continue to monitor #Creatinine bump Etiology: With BUN:CR 12 less likely a prerenal source, in favor of an obstructive/rententi on process in the setting of BPH and recent anaesthesia. Status: Evolving, from 0.65 to 0.93. Plan: - Continue to monitor I/Os, and trend Cr - Recommend bladder scan post-voids Q6 hrs - Recommend straight cath if PVR >350 #Neuropathy Etiology: Chronic bilateral LE neuropathy most likely due to chronic alcohol use. Other pot ential causes could include nutritional deficiency or a medication side effect. Status: Same as baseline. Plan: - Workup: Hgb a1c (5.1), TSH (wnl), homocysteine (pending), MMA (pending), B12 (wnl), HIV p ending - Recommend obtaining Hep B/Hep C - Management: Recommend to continue home gabapentin 600 TID, discuss decreasing per pt pref erence #A. Fib Status: Well controlled. Not on AC per choice s/p discussion w/outpatient automation test developer. KERRI [id number] (age, HTN hx). Plan: - Continue home digoxin 125 mcg daily - Resume home ASA 81 per surgeon's comfort - Goal resting rate < 110, continue to monitor #Elevated BNP Etiology: Unclear. In favor of atrial stretching due to volume status. Echo on 06/02 had an EF of 55%-60%, prior echo 08/2018 with EF 65-70%. Plan: - Continue to monitor intravascular status #Cirrhosis #Hypoalbuminemia Etiology: Likely secondary to alcohol use disorder, per H&P intake is about 72oz of beer a day. Status: Well compensated. No encephalopathy, active GI bleeding, variceal bleeding, jaundic e, ascites, or asterixis. LFTs WNL at admission, plts 288, and INR 1.18. Plan: - Recommend daily weights - Hold home furosemide 40 mg daily, restart in the coming days - In the process of trying to find EGD records (not at [facility], not at [facility]) #Alcohol Use Disorder Status: Chronic, uncontrolled. Drinks 72oz of beer a day. No history of withdrawal symptoms per patient and per last admission. Plan: -Recommend CIWA protocol one more day -Recommend folic acid 1mg and thiamine 100 mg daily for 3 doses -IMPACT consult placed #BPH Status: Controlled. Pt currently asymptomatic Plan: -Recommend restarting tamsulosin 0.4 mg daily Aida Murrieta Sub-Quality Assurance, [facility] Fourth Year Medical Student Pager #[phone] signed by Malik Craig MD at 06/03/2020 5:22 PM PDT Associated attestation - Malik Craig MD - 06/03/2020 5:22 PM PDTCHS ATTENDING CONSULT NOTE ATTESTATION R common femoral DVT, subacute, provoked While appearance on duplex was suggestive of a chronic thrombosis, the clinical history is more consistent with acute (or subacute) clot in the setting of recent injury and subsequent immobilization. Recommend continuing heparin drip for now and transitioning to oral anticoa gulant once no surgeries are planned. Unfortunately it looks like DOAC may be cost prohibiti ve, which would leave warfarin. Patient has a chart history of esophageal varices, however n o EGD report available. While this does increase his risk of major GI bleeding while on anti coagulation, overall his cirrhosis is fairly compensated (MELD 8, normal INR, normal platele ts), so my suspicion that he has large or high risk varices is low. We have requested record s and will try to confirm this. Could consider starting nadolol. Fortunately we can observe him while hospitalized on the heparin drip, which can quickly be shut off/reversed if he block s develop bleeding. Edema I believe his bilateral lower extremity edema is largely driven by chronic venous stasis, i mpaired lymphatic drainage, and DVT (on the right). His cirrhosis/hypoalbuminemia likely als o contributes, though he otherwise does not appear significantly volume overloaded (no obvio us ascites, JVP ~8 today). Will consider resuming diuretics in the next day or so, however w ould like to see his weight/I&O trend first as it turns out he was not actually taking t hem as an outpatient. Creatinine increase His Cr jovi from 0.65->0.9, borderline criteria for JAKI, however looking back at his trend his baseline seems to be around 0.9, so I wonder if the value yesterday was artificially low . Dr. Carolyn Ly will take over as consult attending starting 06/04. Remainder of recommendations per excellent note by MS4 Aida Murrieta. A student assisted with documenting this service. I saw the patient and reviewed and verifi ed all information documented by the student and made modifications to such information, whe n appropriate. Malik Craig MD [employer] Workerauto rental clerk Division of Hospital Medicine Pager [phone] I spent 51 minutes of floor/unit time in care of this patient, of which greater than 50% wa s spent counseling and coordinating care, including counseling patient on anticoagulation, c oordinating care with ortho Aida Murrieta - 06/02/2020 9:06 AM PDTFormatting of this not e might be different from the original. CLINICAL HOSPITALIST SERVICE PROGRESS NOTE 24 Hour Events: - Taken to the OR, did not proceed with surgery - Surgical team considering next steps, future surgery or amputation Current Symptoms: Diane feels well this evening. He was eating and enjoying his dinner during our conversation . He denies any SOB, chest pain, or orthopnea. He is currently pain free, and denies any alc ohol withdrawal symptoms. Physical Examination: Last 24 hour min/max Temp: 36.4 C (97.5 F) Temp Min: 36.4 C (97.5 F) Max: 37.1 C (98.7 F) Pulse: 66 Pulse Min: 65 Max: 108 Resp: 18 Resp Min: 16 Max: 29 BP: 133/61 BP Min: 108/55 Max: 152/49 SpO2: 99 % SpO2 Min: 96 % Max: 100 % Body mass index is 26.5 kg/m. General: No acute distress, elderly man, with long-finger nails HEENT: Atraumatic, normocephalic, no conjunctival injection, no nasal discharge, mucous mem branes moist, sclera anicteric. Lungs: CTAB, no increased WOB Heart: Irregular rate, no MRG Abd: NT/ND Extremities: R foot was wrapped. Unable to palpate L foot. L foot edematous, w/non-pitting edema. Overgrown toe-nails b/l. Neuro: Alert, oriented, and engaged. Laboratory Interpretation: - Hyponatremia 135 - BUN (5) - Cr (0.65) - Albumin (2.4) - Globulin (4.5) - A/G ratio (0.5) - H&H (12, 35.1) - Red cells (3.8) Coagulopathy Workup - INR: 1.18 - Sed rate (50) - D-dimer (3.51) - CRP 51.2 Cardiac Workup - Troponin <0.02 - BNP 2,215 - Digoxin 0.9, therapeutic Peripheral Neuropathy Workup - B12 WNL (599) - TSH WNL (3.28) - HgbA1c, pending - MMA, pending - Homocysteine, pending Micro - COVID-19 negative - HIV, pending - Blood cultures, pending EKG (06/01) Afib, - HR 89 - QRSD 93 - QT 353 - QTcB 429 - QRS -49 - T 39 Imaging Interpretation: X-Ray Tibia and Fibula 2-way and Ankle 3-way (06/01) "Comminuted, impacted trimalleolar fracture-dislocation with distal tibiofibular syndesmosi s injury, unchanged in alignment compared to same day outside radiograph. No additional frac ture." Ibeth Duplex B/L (06/02) "Bilateral: The duplex scanner was used to examine the deep and superficial veins of the ri ght and left lower extremities. Right: There is non-occlusive thrombus in the common femoral vein. The posterior tibial an d peroneal veins were not visualized due to an overlying cast. All other veins are patent wi th otherwise normal flow and responses to augmentation and compression maneuvers and no othe r thrombus is noted. Left: The veins are patent with normal flow and responses to augmentation and compression maneuvers and no thrombus is noted. Conclusions: Abnormal venous examination. Right: There is deep vein thrombosis in the common femoral vein. The echogenic appearance o f the thrombus suggest a chronic process although the vascular laboratory cannot precisely d etermine the age of thrombus. Clinical correlation is suggested. No other thrombus detected . The axial calf veins were no visualized as described above. Left: No deep or superficial venous thrombosis detected. The limitations of the examination described above indicate that the examination does not c onclusively exclude the presence of deep venous thrombosis (DVT). If clinical circumstances continue to suggest the presence of possible DVT a follow-up examination is suggested in 3 t o 5 days." Brief Summary: Diane An is a 70 y.o. male with a.fib, history of hospitalization (08/2019) for necro tizing soft tissue infection, infection associated with hardware (exposed screw on presentat ion), abscess, osteo of the L ankle, and MRSA, followed w/6 weeks of abx and surgical fixati on (08/2019), presumed EtOH cirrhosis, undifferentiated b/l peripheral neuropathy, hypertens ion, and alcohol use disorder (6 beers daily) s/p OR without the surgical correction of a ri ght trimalleolar fracture. In the OR it was decided that he was not a good candidate for the particular surgery that was planned. Assessment and Plan #Right trimalleolar fracture Etiology: He does not recall specific trauma, but has impaired sensation in b/l extremities ; thus, injury is possible due to limited sensation. Status: Evolving, was taken to the operating room today (06/02), upon starting the procedure surgeons determined that he was not a good candidate for the surgery, and are not contempla ting other surgical options, including amputation. Plan: -Care per Ortho -Delirium precautions -Multimodal pain control per Ortho -Blood cultures, pending results, we will follow #DVT Etiology: Likely secondary to immobilization and leg injury and infection. Status: Has DVT in the R common femoral vein. Plan: - Recommend anticoagulation, if additional surgery is needed or concern for bleeding gtt he fermin; otherwise recommend starting apixaban for 3 months with close PCP f/u. #Neuropathy Etiology: Pt has chronic bilateral LE neuropathy most likely due to chronic alcohol use. Ot her potential causes could include D2M, hypothyroidism, nutritional deficiency, or a medicat ion side effect. Status: Same as baseline. Plan: - Workup: Hgb a1c (pending), TSH (wnl), homocysteine (pending), MMA (pending), B12 (wnl) - Management: Recommend to continue home gabapentin 600 TID, PT/OT #A. Fib Status: Well ontrolled. Not on AC per his choice s/p discussion with outpatient cardiologis t. On ASA 81. [id number] (age, HTN hx). Plan: - Continue home digoxin 125 mcg daily - Resume home ASA 81 per surgeon's comfort - Goal resting rate < 110, continue to monitor #Elevated BNP Etiology: Unclear. In favor of atrial stretching due to volume status. Last echo 08/2018 [facility] EF 65-70%, mild bi-atrial enlargement, no clinically significant valvular abnormalities. Plan: -Repeat TTE post-op #Cirrhosis #Hypoalbumnimeia Etiology: Likely secondary to alcohol use disorder, per H&P intake is about 72oz of beer a day. Status: Well compensated. LFTs WNL at admission, plts 288, and INR 1.18. Plan: -Hold home torsemide 10mg daily, restart in the coming days #Alcohol Use Disorder Status: Chronic, uncontrolled. Drinks 72oz of beer a day. No history of withdrawal symptoms per patient and per last admission. Plan: -CIWA post-op -Folic acid 1mg and thiamine 100mg daily for 3 doses -Recommend an [facility] consult, interested in cutting back #BPH Status: Controlled. Pt currently asymptomatic Plan: -Continue home tamsulosin 0.4 mg daily Aida Murrieta Sub-Quality Assurance, [facility] Fourth Year Medical Student Pager #[phone] Associated attestation - Malik Craig MD - 06/02/2020 7:23 PM PDTCHS ATTENDING CONSULT NOTE ATTESTATION - Prior to injury Diane had fair exercise tolerance with no chest pain, dyspnea, orthopnea, or PND - He has thought about decreasing his alcohol intake and is amenable to speaking with [facility] T tomorrow Assessment/Plan: 1) R common femoral DVT, subacute, provoked: While appearance on duplex was suggestive of a chronic thrombosis, the clinical history is more suggestive of acute (or subacute) clot in the setting of recent injury and subsequent i mmobilization. Therefore recommend treating with systemic anticoagulation. Discussed with or thopedics - given evolving plan regarding next surgical steps, recommend heparin infusion fo r now. We placed this order per primary team request. Once no more surgeries are planned wou ld transition to apixaban. Plan for 3 months of treatment for provoked DVT. 2) Alcohol use disorder Patient agreeable to meeting with [facility] His other medical comorbidities (afib, cirrhosis) are stable/compensated. We will follow fo r these but they are not requiring active management at present. Remainder of recommendations per excellent note by MSCarmen Murrieta. A student assisted with documenting this service. I saw the patient and reviewed and verifi ed all information documented by the student and made modifications to such information, whe n appropriate. Malik Craig MD [employer] Worker[employer] rental clerk Division of Hospital Medicine Pager [phone] I spent 50 minutes of floor/unit time in care of this patient, of which greater than 50% wa s spent counseling and coordinating care, including counseling patient on DVT management, co ordinating care with ortho re Uzma Sanders - 06/02/2020 4:17 AM PDTAssociated Order(s): IP CONSULT TO INTERNAL MEDIC INE Internal Medicine Consult Note Chief Complaint: ankle pain Reason for IM Consult: inpatient medical management, pre-op risk stratification HPI: Diane An is a 70 y.o. male with pmhx of a.fib, osteomyelitis of left ankle, cirr hosis, and alcohol use disorder admitted for surgical management of right trimalleolar fract ure. On 05/24, pt went to [facility] in [place], [place] for right ankle pain and was give n the diagnosis of an "infection" and sent home with antibiotics (unsure what abx but last d ose was planned for 06/02). He then sat at home for 7 days, mostly bound to his chair except for using the restroom and eating. He returned to the hospital on 06/01 for escalating pain. OTC pain medications helped some but not much. Movement worsens the pain. He does not know h ow he injured his leg. No recent falls or other trauma. Has been unable to ambulate normally due to pain. At baseline he can walk for a block before he has to stop due to fatigue/gener alized pain. Able to climb stairs with some difficulty due to leg pain and fatigue. No SOB o r CP with exertion. Currently drinks 6 beers a day (total 72oz), former smoker, and no recre ational drugs. Admitted 09/03/19 for an MRSA and E. Faecalis NSTI of LLE necessitating a four-compartment fasciotomy and multiple debridements. Completed 6 wk course of vancomycin through a LUE PICC . Discharged to SNF. Does report fainting 4-5 years ago after an increase in his antihypertensives. He had no LO C and symptoms resolved after sitting. Had a shoulder surgery 5+ years ago without known com plications. Denies fevers, TORRE, CP, SOB, BLOCK, orthopnea, PND, cough, n/v/c/d, dysuria, or new or worseni ng numbness (chronic neuropathy). ROS Negative unless Bolded: Constitutional: fevers, chills, night sweats, weight loss, weight gain, change in appetite, fatigue Head/Neck: headache, vision changes (blurring, diplopia, scotoma), hearing (loss, tinnitus, vertigo), epistaxis, discharge, oral ulcers, sore throat CV: chest pain/pressure, palpitations, paroxysmal nocturnal dyspnea, swelling Pulm: SOB, BLOCK, cough, sputum, hemoptysis GI: nausea, vomiting, heartburn, trouble swallowing, hematemesis, constipation, diarrhea, c hange of color of stool, blood in stool : dysuria, change of frequency, urgency, hematuria, previous UTIs, incontinence, nocturia MSK: arthralgias, myalgias, bilateral LE swelling, problems with gait Skin: dry, flaking skin on bilateral LE, rashes, new lumps/bumps, pruritis Neuro: numbness (chronic), tingling, weakness (chronic), LOC, memory loss Psych: depression, semaj- for depresion: trouble sleeping, loss of interests, guilt, energy , difficulty concentrating, appetite loss/gain, psychomotor retardation/agitation, suicidal ideationpard Past Medical History: I have reviewed and updated the past medical history as appropriate. Past Medical History: Diagnosis Date Atrial fibrillation (HCC) Neuropathy Past Surgical History: I have reviewed and updated the past surgical history as appropriate. History reviewed. No pertinent past surgical history. Family History: I have reviewed and updated the past family history as appropriate. Social History: I have reviewed and updated the past social history as appropriate. Social History Socioeconomic History Marital status: Single Spouse name: Not on file Number of children: Not on file Years of education: Not on file Highest education level: Not on file Occupational History Not on file Social Needs Financial resource strain: Not on file Food insecurity: Worry: Not on file Inability: Not on file Transportation needs: Medical: Not on file Non-medical: Not on file Tobacco Use Smoking status: Former Smoker Packs/day: 1.00 Years: 8.00 Pack years: 8.00 Types: Cigarettes Smokeless tobacco: Never Used Substance and Sexual Activity Alcohol use: Yes Comment: daily, 6 pack of beer, denies hx of withdrawal, last drink yesterday evening Drug use: Not Currently Sexual activity: Not on file Lifestyle Physical activity: Days per week: Not on file Minutes per session: Not on file Stress: Not on file Relationships Social connections: Talks on phone: Not on file Gets together: Not on file Attends yazdanism service: Not on file Active member of club or organization: Not on file Attends meetings of clubs or organizations: Not on file Relationship status: Not on file Other Topics Concern Not on file Social History Narrative Not on file Prior to Arrival Meds: I have reviewed and updated the prior to arrival medications. Prior to Admission Medications Prescriptions acetaminophen 500 mg oral tablet Sig: Take 2 tablets by mouth three times daily. aspirin EC 81 mg oral tablet,delayed release (DR/EC) Sig: Take 81 mg by mouth once daily. Indications: atrial fibrillation cephALEXin 500 mg oral capsule cyanocobalamin 100 mcg oral tablet Sig: Take 500 mcg by mouth once daily. digoxin 125 mcg oral tablet Sig: Take 125 mcg by mouth once daily. Indications: Ventricular Rate Control in Atrial Fibr illation furosemide 20 mg oral tablet gabapentin 300 mg oral capsule Sig: Take 2 capsules by mouth three times daily. Indications: alcoholism gabapentin 600 mg oral tablet Sig: Take 600 mg by mouth three times daily. Indications: alcoholism melatonin 3 mg oral tablet Sig: Take 3 mg by mouth once daily in the evening. multivitamin-iron oral tablet Sig: Take 1 tablet by mouth once daily. omeprazole 20 mg oral capsule,delayed release(DR/EC) Sig: Take 20 mg by mouth two times daily. Administer 30 to 60 minutes before meals polyethylene glycol 17 gram oral powder in packet Sig: Mix 1 packet and take orally once daily. potassium chloride SR 20 mEq oral tablet,ER particles/crystals Sig: Take 1 tablet by mouth once daily. tamsulosin 0.4 mg oral capsule Sig: Take 0.4 mg by mouth once daily. thiamine mononitrate 100 mg oral tablet Sig: Take 100 mg by mouth once daily. torsemide 10 mg oral tablet Sig: Take 10 mg by mouth once daily in the morning. Indications: visible water retention Facility-Administered Medications: None BP 140/68 | Pulse 72 | Temp 37.1 C (98.7 F) (Oral) | Resp 20 | Ht 1.803 m (5' 11") | Wt 86.2 kg (190 lb) | SpO2 100% | BMI 26.50 kg/m | BSA 2.08 m Physical Examination: General: NAD Neurological: CNII-XII intact. Oriented to person, place, time. Mental Status: not responding to internal stimuli HEENT: Atraumatic symmetric skull. Conjunctiva pink, oropharynx without exudates or lesions . Moist mucous membranes Neck: Trachea midline, no lymphadenopathy. Cardiovascular: No JVD. Irregularly irregular rate and rhythm, normal S1 S2, no murmurs, ru bs or gallops. Respiratory: CTAB, no wheezes, rales or rhonchi; bilateral uniform expansion Abdomen: Soft NT, ND. Bowel sounds present. Extremities: Profound edema to bilateral lower extremities, large scar on LLE, RLE wrapped so exam deferred, no palpable pulses bilaterally but per ED note, dopplerable biphasic DP an d TP. Skin: purple pigmented, dry, flaky skin Labs: Na 135, K 3.7, Cr 0.65 WBC 7.07, Hgb 12.0, Plt 288 AST 15, ALT 14, Alk Phos 119, T Bili 0.7, Albumin 2.4, INR 1.18 Sed Rate 50, CRP 51.2 Trop <0.02 BNP 2215 EKG: A.fib, HR 89, LAFB, borderline T wave abnormalities Imaging: Ankle and Tib/Fib X-Ray: right trimalleolar fracture, awaiting official read Assessment: Diane An is a 70 y.o. male with pmhx of a.fib, osteomyelitis of left ankle, cirrhosis , and alcohol use disorder admitted for surgical management of right trimalleolar fracture a nd IM consulted for medical management. Problem List & Plan: #Right trimalleolar fracture Unable to reduce ankle in ED. Plan for OR today per Ortho. Both legs are significantly swol am[place] with a high risk for DVT as pt had a prolonged delay in presentation and did not ambulat e for over a week (had someone bring him food and he sat in his chair). DVT U/S of right leg prior to surgery. Presence of DVT would not stop surgery. If pt hemodynamically decompensat es, high suspicion for DVT provoked PE. Due to the prolonged fracture, elevated CRP, hx of N STI and osteomyelitis, and some broken skin around bone, infectious work-up is indicated. Pt remains afebrile with a normal WBC. -Care per Ortho -Delirium precautions -Bilateral DVT U/S post-op -Blood cultures -D-Dimer -Monitor for sepsis -Multimodal pain control #Neuropathy Pt has chronic bilateral LE neuropathy most likely 2/2 alcohol abuse although cannot rule o ut other causes such as DM, hypothyroidism, or nutritional deficiency. No past Hgb a1c or TS H per chart review. Not on any known neuropathy causing medications. This neuropathy is like ly the unifying cause behind not only the fracture itself but the reason he did not present to the hospital for multiple weeks after fracture. If the neuropathy is addressed, will like ly help reduce potential for future fractures. -Hgb a1c -TSH -Homocysteine, Methylmalonic acid -B12 -continue home gabapentin 600 TID -PT/OT #A. Fib Not on AC. On ASA 81. [id number] (age, HTN hx). Per pt, after a risk/benefit discussio n with automation test developer, decided against chronic AC. -Digoxin Level -Continue home digoxin 125mcg daily -ASA 81 -goal resting rate < 110 #CHF Last echo 08/2018 with EF 65-70%, mild bi-atrial enlargement, no clinically significant sunny vular abnormalities. Elevated BNP may indicate worsening HF. Lungs are clear bilaterally, torre s chronic peripheral edema, no PND, orthopnea, or BLOCK. -Repeat Echo post-op #Cirrhosis Likely 2/2 alcohol abuse with 72oz of beer a day. LFTs are normal on this admission and radha er synthetic function is normal with plts 288 and INR 1.18. -Hold home torsemide 10mg daily #Alcohol Use Disorder Drinks 72oz of beer a day. No history of withdrawal symptoms per patient and per last admis jerrod. -CIWA post-op -Folic acid 1mg and thiamine 100mg daily for 3 doses #BPH Pt currently asymptomatic -Continue home tamsulosin 0.4 mg daily Cardiac Risk Stratification Revised Cardiac Risk Index (RCRI) (1 point for each risk) Known ischemic heart disease: 0 Congestive Heart Failure: 0 Cerebrovascular disease: 0 Renal insufficiency (creatinine level > 2): 0 DM (requiring insulin): 0 Surgery Specific Risk (intraperitoneal; intrathoracic; suprainguinal vascular): 0 Rate of cardiac , non fatal IA, non fatal cardiac arrest 0 risk factors - 0.4% (very low) 1 risk factors - 0.9% (low) 2 risk factors - 6.6%, (moderate) 3 or >risk factors - 11% (high) ACC/AHA Perioperative Guidelines: 1. Need for emergency noncardiac surgery? b. No -> Proceed to next step 2. Active Cardiac Conditions? These conditions mandate further investigation and manageme nt. A. Acute IA within 7 days: no B. Unstable angina/Recent IA (7- 30 days): no C. Decompensated CHF: no D. Significant arrhythmia: None E. Severe valvular disease: NONE 3. Low risk surgery? b. No -> proceed with next step Surgery Specific Risk 4. Good functional capacity? (>4 METS)a. Yes -> proceed with surgery Functional METs 5. Assess Clinical Risk Factors? A. Ischemic heart disease: no B. Compensated / prior heart failure: no C. Diabetes mellitus (requiring Insulin): no D. Renal insufficiency (Cr > 2): no E. Cerebrovascular disease: no ACC/AHA Risk Factor Recommendations: 0 risk factors- proceed with planned surgery Surgery Risk: Intermediate Risk Factor Recommendations: 0 risk factors- proceed with planned surgery Surgery Risk: Intermediate Patient-related risk: Estimated ASA class -- 3 Assessment/Plan:: Preoperative Evaluation: 1. Pt currently medically optimized for surgery 2. Needs DVT U/S 3. Digoxin level prior to OR 4. Pt needs to be on CIWA protocol perioperatively 5. We will work up peripheral neuropathy, volume overload Sedation: NA Stress ulcer ppx: PPI Thromboembolic ppx: Held pre-op Antimicrobials: NA Nutrition/glycemic control: NPO pre-op PCP: Rio Huerta MD Fall Risk: Yes Code Status: Full Code Appreciate opportunity to consult on this patient. Uzma Perez MS4 [facility] [place] Pager #[phone] Associated attestation - Randy Lazo MD - 06/02/2020 7:11 AM PDT A student assisted with documenting this service. I personally interviewed the patient, pe rformed the cespedes elements of the physical examination, have developed an updated assessment a nd plan together with the medical student and made modifications to such information, when a ppropriate. I agree with the history, physical, labs and imaging evaluation, and plans as do cumented. Briefly, this is a very pleasant 70 male, retired [employer], w/ hx of afib, pres umed ETOH cirrhosis, chronic daily ETOH use, and hx of a fairly severe infection of his left lower extremity 08/2019 s/p 6 weeks abx and surgical fixation. Patient has fairly severe un differentiated peripheral neuropathy which he has had for several years, which unfortunately led to an indolent right trimalleolar fracture a few weeks ago (likely around 05/24). He block s not recall any trauma, but does not have very good sensation at all in his lower extremiti es and could have had trauma to it without even knowing. As well, he could not really feel t he extent of the pain in that lower extremity, so had a significant delay in his presentatio n now. After being evaluated in the [facility] ED 05/24 he spent >7 days in a recliner 24 h ours a day and had his friends cook for him, because he could not walk on his foot. He has n oted increased swelling in the RLE, and progressively worsening generalized throbbing pain. Prior to this incident, he was doing OK. His afib is well controlled. He does not endorse a ny hx of ACS or symptoms concerning for CHF. He has a very remote smoking history (smoked fo r 8 years and quit in the 70s) and has no evidence of COPD. He can usually go up a flight of stairs and has 13 stairs up to the door to his house which he was navigating daily w/o ches t pain, SOB, or other issues. Takes all his meds w/o issue. He does drink 6 beers a day and has for many years. He did not go through withdrawals durin g his 08/2019 admission nor thinks he has ever gone through withdrawals. ROS: a full 10 pt ROS was performed. Positives have been documented in the resident note. O ther ROS was negative on our joint review. Exam notable for: BP 134/52 (BP Location: Right upper arm, Patient Position: Lying on back) | Pulse 108 | T emp 36.8 C (98.2 F) (Axillary) | Resp 18 | Ht 1.803 m (5' 11") | Wt 86.2 kg (190 lb) | SpO2 100% | BMI 26.50 kg/m | BSA 2.08 m I directly examined the patient myself and agree with the exam as documented. 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 Right trimalleolar fracture #. High concern for undiagnosed RLE DVT and high risk for perioperative DVT related PE #. Peripheral neuropathy: Patient is currently medically optimized for surgery, please see full consult note below. I had a long discussion with him regarding our concerns for a DVT in his RLE, and that IF thi s were present we would usually proceed with surgery (as the fracture is the inciting inflam matory nidus leading to a DVT in the setting of prolonged immobility) with heparanization af terwards. We discussed the risks of this DVT turning into a PE, that could lead to significa nt clinical decompensation and even loss of life. I stressed that we do not know if he actua lly has one, but the suspicion is high and these are the risks going into surgery. Regardles s, the benefits of fixing this fracture outweighs these risks and is a complication we have successfully managed in previous cases. He was understanding of the risks and OK with venkatesh acosta with surgery. - Proceed with surgery. - DVT US after surgery of both legs, RLE most concerning however. The left is chronic edema . - If any signs of hemodynamic collapse in the perioperative period he may have a DVT provok ed PE and this should be assumed until proven otherwise. - He needs an infectious workup with blood cultures. - We will work up his peripheral neuropathy, it is likely caused by his long ETOH use hx. - His BNP is marginally elevated at 2,225 and he may have some component of ETOH and afib i nduced HFPEF at this point. He is reassuringly asymptomatic from a heart failure standpoint. Will get TTE after surgery. #. ETOH use: - Patient needs CIWA after surgery and monitoring for delirium. #. Afib: - Digoxin level now prior to OR to ensure he is in the therapeutic window. He shows no symp toms of toxicity nor signs of heart block on EKG. - Close monitoring for perioperative RVR. IV beta blockers would be an adequate option for control. - Continue digoxin and asa 81 for AC. Rest as per consult note. We will continue to follow closely and medically co-manage. We ap preciate the consult and opportunity to be involved in Mr Watson's care. Randy Lazo M.D., Ph.D. [facility] Division of Hospitalist Medicine [facility] Pager: [phone] I spent 80 minutes in patient care as well as review of records, bedside care, orders place ment. Greater than 50% was spent counseling the patient regarding his right trimalleolar fra cture and need for medical co-management of his multiple health problems along with the Orth o. . documented in this encounter ED Notes Alessandro Fitzgerald RN - 06/02/2020 5:03 AM PDTReport called to AZAR HunterElectronically kendy d by Alessandro Fitzgerald RN at 06/02/2020 5:04 AM Cedric Fallon MD - 06/02/2020 2:44 AM PDTF ormatting of this note might be different from the original. ED Individual Provider Note, Cedric Flores MD: HPI Diane An is a 70 y.o. male w/ a pmhx of A. fib, osteomyelitis of his left ankle, neur opathy, alcohol use disorder in remission who presents as a transfer for right trimalleolar fracture. He is unable to tell me when he sustained this fracture however notes escalating pain over the last several days. He does not walk on a regular basis however notes that he would be u nable to bear weight on it at this time. He denies specific traumatic injury and cannot rec all on the fracture occurred. He denies falls, chest pain, dyspnea, abdominal pain, headach e, changes in mental status, vision changes, or recent infectious symptoms. He has no pain at this time and cannot feel the fracture. He is unaware that there are is evidence of brui sing and old blisters on his ankle. There was concern for recurrent falls at the referring facility however the patient here de nies this. No known COVID contacts. No infectious symptoms c/w COVID. 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 Charcot Anne Tooth? Other? 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 Medications Prior to Admission Medications Prescriptions Last Dose Informant Patient Reported? Taking? acetaminophen 500 mg oral tablet No No Sig: Take 2 tablets by mouth three times daily. aspirin EC 81 mg oral tablet,delayed release (DR/EC) Yes No Sig: Take 81 mg by mouth once daily. Indications: atrial fibrillation cephALEXin 500 mg oral capsule Yes No cyanocobalamin 100 mcg oral tablet Yes No Sig: Take 500 mcg by mouth once daily. digoxin 125 mcg oral tablet Yes No Sig: Take 125 mcg by mouth once daily. Indications: Ventricular Rate Control in Atrial Fibr illation furosemide 20 mg oral tablet Yes No gabapentin 300 mg oral capsule No No Sig: Take 2 capsules by mouth three times daily. Indications: alcoholism gabapentin 600 mg oral tablet Yes No Sig: Take 600 mg by mouth three times daily. Indications: alcoholism melatonin 3 mg oral tablet Yes No Sig: Take 3 mg by mouth once daily in the evening. multivitamin-iron oral tablet Yes No Sig: Take 1 tablet by mouth once daily. omeprazole 20 mg oral capsule,delayed release(DR/EC) Yes No Sig: Take 20 mg by mouth two times daily. Administer 30 to 60 minutes before meals polyethylene glycol 17 gram oral powder in packet No No Sig: Mix 1 packet and take orally once daily. potassium chloride SR 20 mEq oral tablet,ER particles/crystals No No Sig: Take 1 tablet by mouth once daily. tamsulosin 0.4 mg oral capsule Yes No Sig: Take 0.4 mg by mouth once daily. thiamine mononitrate 100 mg oral tablet Yes No Sig: Take 100 mg by mouth once daily. torsemide 10 mg oral tablet Yes No Sig: Take 10 mg by mouth once daily in the morning. Indications: visible water retention Facility-Administered Medications: None Allergies No Known Allergies Social History Tobacco Use Smoking status: Never Smoker Smokeless tobacco: Never Used Substance Use Topics Alcohol use: Yes Comment: daily, 6 pack of beer, denies hx of withdrawal, last drink yesterday evening Drug use: Not Currently Family History Family history reviewed and no relevant family history obtained Review of Systems Complete ROS performed and negative except as noted in HPI. ED Triage Vitals BP Temp Heart Rate Pulse - Plethysmograph Resp SpO2 06/01/20 2227 06/01/20 2218 06/01/20 [id number]/[id number] (!) 134/52 37.1 C 78 69 pulses/min 18 97 % Physical Exam Constitutional: General: He is not in acute distress. Appearance: He is well-developed. He is not diaphoretic. HENT: Head: Atraumatic. Right Ear: External ear normal. Left Ear: External ear normal. Eyes: General: Right eye: No discharge. Left eye: No discharge. Conjunctiva/sclera: Conjunctivae normal. Neck: Musculoskeletal: Normal range of motion and neck supple. Cardiovascular: Rate and Rhythm: Normal rate. Heart sounds: No murmur. No friction rub. No gallop. Pulmonary: Effort: Pulmonary effort is normal. No respiratory distress. Breath sounds: No wheezing or rales. Abdominal: General: There is no distension. Palpations: Abdomen is soft. Tenderness: There is no abdominal tenderness. There is no guarding or rebound. Musculoskeletal: Comments: Right lower extremity with chronic lower extremity edema. There is an obvious deformity at the right ankle with external rotation. There is an old ruptured blister on t he medial aspect of the calcaneus without visible bone. There is dried old blood in this ar ea. There is a small 1 x 2 cm ulceration on the posterior lateral ankle that reaches the kenyon bcutaneous tissue. There are no palpable pulses however there is dopplerable biphasic DP an d TP pulses. Skin: General: Skin is warm and dry. Findings: No erythema or rash. Neurological: Mental Status: He is alert and oriented to person, place, and time. Psychiatric: Behavior: Behavior normal. ED COURSE AND MEDICAL DECISION MAKING: Diane An is a 70 y.o. male presenting with obvious right ankle deformity. The vitals and physical exam were notable for the following: Does not appear to be uncomfor table despite obvious fracture. A review of some of the patient s prior medical records was performed using chart review and Care Everywhere. Given the patient's history and exam, initial differential diagnosis includes but is not li mited to: Right ankle fracture. No apparent nerve injury however would be difficult to asse ss given deformity and inability to perform motor exam and chronic neuropathy. No apparent vascular injury with intact pulses. Will obtain EKG and other basic labs given expected adm ission for surgical fixation of his ankle. Will maintain on telemetry given possible syncop e leading to fracture however no clear history suggesting his mechanism at this time. Laboratory, EKG, and imaging results were reviewed and interpreted. The patient received the following in the emergency department (including medications, inte rventions, consultations, and reassessments): ED Course as of Jun 02 259e Jun 01, [id number] EKG: Rate: 89 Rhythm: a-fib Irving: LAD Intervals: normal ST/T Segments: no ischemic changes [CR] 2327 Labs reviewed and notable for: - INR normal - CMP reassuring - CBC with mild anemia [CR] ED Course User Index [CR] Claudy Flores MD Reduction initially attempted at bedside after a Ativan for anxiolysis by orthopedic surger y. Unfortunately unable to get reduction which was thought to be related to increased muscl e tone therefore the patient was consented for procedural sedation. PROCEDURE NOTE: PROCEDURAL SEDATION Procedure: Procedural Sedation Indications: Indications for procedure: Fracture and Dislocation to right ankle location. Procedure Details: Informed consent was obtained from patient after a discussion of risks, benefits, and alter natives to the procedure. A timeout was performed. ASA Physical Status: ASA III; Reason: a -fib, cirrhosis. Mallampati score: class 1. The history is complete and documented above i n the provider note. The patient's anesthetic history is: no prior complications. The [facility] sedation checklist, in accordance with [facility] policy, was used. The patient was given propofol with appropriate sedation. Sedation personally performed by Alyssa Flores (EM Attending). The patient was continuousl y monitored throughout the sedation procedure. Please refer to the sedation administration and vitals section of the chart for further details. Sedation: start time 1252, stop time 0105. Sedation: Deep. Findings: Patient recovered from sedation uneventfully and did not require airway intervention. Post Sedation Vitals: BP 139/61 | Pulse 70 | Temp 37.1 C (Oral) | Resp 19 | Ht 1.803 m (5' 11") | Wt 86.2 kg (190 lb) | SpO2 97% | BMI 26.50 kg/m | BSA 2.08 m The attending was present for all portions of the sedation including, as applicable, induct ion and emergence. Unfortunately unable to reduce ankle therefore splinted by ortho with plan for operative fi xation in AM. Pulses confirmed by doppler post manipulation. Given this, patient required admission for further care. We spoke to orthopedics, who acce pted patient to their service. 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 Please see the primary providers note for complete elements of the histo ry, physical exam, and ED course. Illness Severity: Stable Patient Summary: Most recent vital signs: BP (!) 122/54 | Pulse 90 | Temp 37.1 C (Oral) | Resp (!) 26 | Ht 1.803 m (5' 11") | Wt 86.2 kg (190 lb) | SpO2 96% | BMI 26.50 kg/m | BSA 2.08 m Diane An is a 70 y.o. malepresented to the ED w/ dislocated R ankle for extended dennis od of time. Unknown how long its been out. Attempted reduction twice with ortho (once with d eep sedation). Unable to reduce. Lab and imaging results: Lab Results Results for orders placed or performed during the hospital encounter of 06/01/20 COMPLETE METABOLIC SET (NA,K,CL,CO2,BUN,CREAT,GLUC,CA,AST,ALT,BILI TOTAL,ALK PHOS,ALB,PROT TOTAL) Result Value Ref Range GLUCOSE, PLASMA (LAB) 103 (H) 70 - 99 mg/dL BUN, PLASMA (LAB) 5 (L) 6 - 20 mg/dL CREATININE PLASMA (LAB) 0.65 (L) 0.70 - 1.30 mg/dL EGFR - BRITISH >60 >60 mL/min EGFR NON -BRITISH >60 >60 mL/min SODIUM, PLASMA (LAB) 135 (L) 136 - 145 mmol/L POTASSIUM, PLASMA (LAB) 3.7 3.4 - 5.0 mmol/L CHLORIDE, PLASMA (LAB) 101 97 - 108 mmol/L TOTAL CO2, PLASMA (LAB) 30 21 - 32 mmol/L CALCIUM, PLASMA (LAB) 8.4 (L) 8.6 - 10.2 mg/dL CALCIUM(ALB CORRECTED) 9.7 8.6 - 10.2 mg/dL BILIRUBIN TOTAL 0.7 0.3 - 1.2 mg/dL TOTAL PROTEIN, PLASMA (LAB) 6.9 6.4 - 8.2 g/dL ALBUMIN, PLASMA (LAB) 2.4 (L) 3.5 - 4.7 g/dL ALK PHOS 119 56 - 119 U/L AST(SGOT) 15 <=41 U/L ALT (SGPT) 14 <=60 U/L ANION GAP 4 4 - 11 mmol/L ANION GAP(ALB CORRECTED) 8 4 - 11 mmol/L POTASSIUM CMNT No Hemo BILI T CMNT No Hemo AST CMNT No Hemo BUN/CREATININE RATIO 8 8 - 25 GLOBULIN LVL 4.5 (H) 2.3 - 3.5 gm/dL ALBUMIN/GLOBULIN RATIO 0.5 (L) 0.7 - 2.8 BLOOD BANK HOLD TUBE - DON T PROCESS Result Value Ref Range SPECIMEN COLLECTED, HELD Sample received with adeq label/volume to process INR Result Value Ref Range INR 1.18 0.90 - 1.20 INR ABO & RH TYPE Result Value Ref Range ABO Group B Rh Type Positive ANTIBODY SCREEN Result Value Ref Range Antibody Screen Negative COVID-19, RAPID PCR Result Value Ref Range COVID-19 Not Detected Not Detected TROPONIN I, PLASMA Result Value Ref Range TROPONIN I <0.02 <0.80 ng/mL NT-PRO BNP Result Value Ref Range NT-PRO BNP 2,215 (H) <125 pg/mL SEDIMENTATION RATE Result Value Ref Range SEDIMENTATION RATE 50 (H) 0 - 20 mm/hr C-REACTIVE PROTEIN Result Value Ref Range C-REACTIVE PROTEIN 51.2 (H) <10.0 mg/L D-DIMER, (PE OR DIC) Result Value Ref Range D-DIMER (PE OR DIC) 3.51 (H) <0.50 ug/mLFEU 12 LEAD ECG Result Value Ref Range VENTRICULAR RATE 89 bpm ATRIAL RATE 0 ms P-R INTERVAL P AXIS QRS DURATION 93 ms QT 353 ms QTC-BAZETT 429 ms QTC-FRIDERICIA 403 ms R AXIS -60 deg T AXIS 39 deg ECG IMPRESSION Atrial fibrillation ECG IMPRESSION Left anterior fascicular block ECG IMPRESSION Borderline T abnormalities, lateral leads- ABNORMAL ECG - ECG IMPRESSION Electronically signed by: PRELIMINARY - Unconfirmed CBC (HEMOGRAM) ONLY Result Value Ref Range WHITE CELL COUNT 7.07 3.50 - 10.80 K/cu mm RED CELL COUNT 3.80 (L) 4.50 - 6.00 M/cu mm HEMOGLOBIN 12.0 (L) 13.5 - 17.5 g/dL HEMATOCRIT 35.1 (L) 41.0 - 53.0 % MCV 92.4 80.0 - 100.0 fL MCHC 34.2 32.0 - 36.0 g/dL RDW SD 44.0 35.1 - 46.3 fL PLATELET COUNT 288 150 - 400 K/cu mm MPV 8.9 (L) 9.7 - 12.3 fL NRBC% 0.0 0.0 - 0.3 % NRBC# 0.00 0.00 - 0.02 K/cu mm Imaging Results (last 24 hours) No results found. Action plan (To Do): Admit ortho vs medicine ED Course Following Sign Out: Patient was admitted to orthopedics Fab Bennett MD Sveta Snyder RN - 06/02/2020 1:31 AM PDTReport to Alida ASKEW, pt continues to be awake & alert. VSS. Sveta Suárez RN - 06/02/2020 1:04 AM PDTUnable to fully reduce R ankle at this time. Electro nically signed by Sveta Snyder RN at 06/02/2020 1:04 AM Sveta Lagos RN - 06/02 1:02 AM PDTTeam continues to attempt R ankle reduction. Pt tolerating procedure well. Sveta Lagos RN - 06/02/2020 12:40 AM PDTOrtho at bedside to obtain consent for procedureElectronically sign ed by Sveta Snyder RN at 06/02/2020 12:41 AM Sveta Lagos RN - 06/01/2020 10:25 PM PDTPt BIBA txfr from OSH for R ankle fx/ dislocation. Pt denies pain at this time, hx alexis ropathy. DP pulses obtained by doppler. Swelling to bilateral LEs. Able to move toes on affe cted extremity, capillary refill intact. Pt does not know how or when ankle injury occurred, ambulates w walker at baseline but has been unable to for past 14 days. Seen at OSH 8 days ago for pain to LEs & tx for cellulitis, states unable to walk at time of DC, denies having XRs at that time. umiko Mccarty RN - 06/01/2020 10:15 PM PDTBed: 04RS Expected date: Expected time: Means of arrival: Comments: allen,d o Canas RN - 06/01/2020 6:[address] [facility]: Chronic edema to lower legs and neuropathy. Ulcers to heels and left buttock. Baseline block sn't walk. Has home health but not often enough, probably will need SNF placement. Own medical decision maker, no POLST on file. Twisted R foot, fractured and displaced. Pulses present by dopler.Coming for ortho and pos sible operation. No splinting or casting from OSH. No meds given. VSS. Coming BLS, eta 4 hours. d ocumented in this encounter Miscellaneous Notes Plan of Care - Jessica Kee RN - 06/11/2020 10:17 AM PDTPt transported by family via w heelchair to discharge to SNF. AVS/packet and scripts given, pt verbalized understanding. All belongings taken with patient. lan of Care - Rhys Jaylin, PT - 06/11/2020 10:17 AM PDT Physical Therapy Treatment 06/11/2020 10:55 AM Pt admitted on 06/01/2020 10:14 PM, hospital day number 10 Pt seen on 9K Time in: 831 Time out: 919 Patient was seen for a total of 48 minutes of direct one on one skilled physical therapy wh ich included 48 minutes of therapeutic activity Brief Hospital Course: Diane An is a 70 y.o. Mwith atrial fibrillation, alcoholic c irrhosis, and neuropathy known to the orthopaedic service for left ankle osteomyelitis/faile d ankle fusionwhois now transferred for management of right ankle fracture dislocation. He states that he is unsure how or when this injury occurred. He recalls an event where he s lid out of bed about 3 weeks ago and has noticed his foot slowly externally rotating. He den ies any pain due to his underlying neuropathy. (per Dr. Herr's H&P 06/01/20) Orthopaedic Procedure(s): 06/02/20 Working 1. Insertion of right calcaneal pin 2. Dynamic stress examination of right foot and ankle 3. Closed treatment of right pilon fracture 4. Removal of right calcaneal pin 06/08/2020 [place] 1.Right tibial and fibular osteotomy 2.Right ankle and subtalar joint fusions (hindfoot nail) 3.Right peroneal tendon release Status Update: Patient plans to DC to a SNF in [facility] via personal vehicle today. Patien t doesn't know what type of vehicle that his family is bringing in before the end of the PT session. CM updated that patient is going to go with a wheelchair van after PT session. Relevant Precautions: non weight bearing right lower extremity. Reviewed notes and xrays w rylee Aguilar - confirmed left lower extremity weight bear as tolerated. Discussed use of CA M boot as option. Subjective: Patient agreeable to PT session. "Please don't help me. I want to be independen t." re: transfer supine > sitting EOB. Pain: did not rate Individuals present for session other than therapist and pt: vocational rehabilitation consultant (Rose) and later CN A (Violetta) Objective: Supine in bed at start of session. Discussed activity plan and pt in agreement. Reviewed precautions. - Patient able to recall LLE weightbearing as tolerated and RLE NWB precaution. CAM boot do nned in supine. - Patient supine > roll to his left > sit on EOB with standby assist. - Patient sit on EOB > stand from elevated bed height with front wheeled walker and contact guard assist. - Patient attempted stand pivot but unable to pivot on LLE x front wheeled walker, likely d ue to LLE weakness. - Patient stand > sit EOB with front wheeled walker x contact guard assist - Patient transfer EOB > transport chair x slide board x contact guard assist. Set-up and v erbal cues required. - Patient was wheeled to gym and transfer transport chair > car seat x slide board. Set up required x verbal cues for hand placement. - Patient transfer car seat > transport chair x slide board x 1P moderate assist. Set up re quired. - Patient was wheeled back to room and sits on transport chair with all needs met. RN in ro om. [facility] BASIC MOBILITY Difficulty turning over in bed 3 - A Little - Minimal/Contact Guard Assist/Supervision Difficulty sitting/standing from chair w/ arms 2 - Alot - Maximum/Moderate Assistance Difficulty moving from supine to sitting on edge of bed 3 - A Little - Minimal/contact Guar d Assist/Supervision Help needed moving from /to chair/wheelchair 2 - Alot - Maximum/Moderate Assistance Help needed walking in hospital room 1 - Unable to do/total assistance - Total/Dependent As sist Help needed climbing 3-5 steps w/railing 1 - Unable to do/total assistance - Total/Dependen t Assist [facility] Basic Mobility Total Score 12 Interpretation of [facility] Short Form - Basic Mobility: CMS Modifier (G-Code) Score (in points) % of Functional Impairment, Limitation, or Restrict ion CN 6 100% impaired, limited, restricted CM 7-9 At least 80%, but less than 100% impaired, limited, or restricted CL 10-14 At least 60%, but less than 80% impaired, limited, or restricted CK 15-19 At least 40%, but less than 60% impaired, limited, or restricted CJ 20-22 At least 20%, but less than 40% impaired, limited, or restricted CI 23 At least 1%, but less than 20% impaired, limited, or restricted CH 24 0% impaired, limited, or restricted *This score not officially observed but is implied based on other components of patient's m obility and may be an underestimate At end of session patient left supine in bed with call campo in hand and all needs met. RN u pdated. RN in room. Assessment: Patient still presents difficulty transferring EOB <> chair via stand pivot x f ront wheeled walker, likely due to LLE muscle weakness. However, patient able to transfer be d <> chair using slide board x 1P assist. Set-up and verbal cues required. Patient will cont inue to benefit from skilled physical therapist intervention to improve safety with transfer skills and therapeutic activity. ACTIVITY PLAN: *Nursing to re-assess per shift as needed.* - Lights on and curtains open during day hours. - Up to chair for meals or 3x/day with slide board and 1-2 person assist. DISCHARGE RECOMMENDATIONS: 24 hour skilled care;Continued PT at next level of care DME: defer to facility Jaylin Joiner PT Should this patient discharge from the hospital prior to the next physical therapy treatmen t, this note shall serve as the discharge summary. Problem: PT Goals- Adult Goal: Functional Mobility Goal Description Independent with recall and adherence to NWB precautions. Independent with bilateral upper extremity and bilateral lower extremity therapeutic exerci ses. Supine to side lying left/right independently with bed rail. Maintains side lying independently using bed rail for support. Outcome: Gradual progress toward goal andoff - Victor Manuel Krishna RN - 06/11/2020 7:20 AM PDTNursing Handoff Patient Daily Goal: Rest (06/06/202016) [facility] IP NURSE HANDOFF: Cespedes hospital course events: 06/01 ED Admit/Hx tx, s/p fall - R. Ankle fx, severe neuropathy 06/02: R. Calcaneal pin. . R. femoral dvt - Heparin drip started 06/04: Hep has been stable for 2 checks overnight, now starting AM checks 06/08 R hindfoot fusion PMHx: Atrial fibrillation, alcoholic cirrhosis, and neuropathy COMFORT/ANXIETY/BEHAVIOR Patient/Family Target: Adequate pain control to allow activity and rest. Progress to Target: Improving As evidenced by: Diane reported adequate pain control this shift with occasional 5 mg oxycodone. NURSING ASSESSMENT & RECOMMENDATIONS FORWARD Nursing Assessment of Patient Stability Risk: Moderately stable Recommendations Forward: : voids, incontinent at times (stool and urine) Occasional large PVR's- refused bladderscans and SC overnight, but produced good urine outp ut Pain: mostly denies pain (neuropathy), 5 mg oxy available Skin: LLE wound care MWF or PRN (saturation/lack of integrity), breakdown on sacrum, q2hr t urns, promote nutrition, BFD on sacrum. Mobility: sling to chair, RLE NWB - per pt he hasn't been walking in 2 weeks Use sling Daily wt, w/ sling. MDs notified re drainage through splint SNF today, family member to transport him (SNF in [facility]) andoff - Mandi Kearney RN - 06/10/2020 10:21 AM PDTNursing Handoff Patient Daily Goal: Rest (06/06/202016) [facility] IP NURSE HANDOFF: Cespedes hospital course events: 06/01 ED Admit/Hx tx, s/p fall - R. Ankle fx, severe neuropathy 06/02: R. Calcaneal pin. . R. femoral dvt - Heparin drip started 06/04: Hep has been stable for 2 checks overnight, now starting AM checks 06/08 R hindfoot fusion PMHx: Atrial fibrillation, alcoholic cirrhosis, and neuropathy COMFORT/ANXIETY/BEHAVIOR Patient/Family Target: Adequate pain control to allow activity and rest. Progress to Target: Improving As evidenced by: Diane reported adequate pain control this shift with occasional 5 mg oxycodone. NURSING ASSESSMENT & RECOMMENDATIONS FORWARD Nursing Assessment of Patient Stability Risk: Moderately stable Recommendations Forward: : voids, incontinent at times (stool and urine) Occasional large PVR's- str. cath at 1230 for 620 ml Pain: mostly denies pain (neuropathy), 5 mg oxy available Skin: LLE wound care MWF or PRN (saturation/lack of integrity), breakdown on sacrum, q2hr t urns, promote nutrition, BFD on sacrum. Mobility: sling to chair, RLE NWB - per pt he hasn't been walking in 2 weeks Use sling Daily wt, w/ sling. MDs notified re drainage through splint Likely SNF tomorrow andoff - Joselito Leal RN - 06/09/2020 8:42 PM PDTNursing Handoff Patient Daily Goal: Rest (06/06/202016) [facility] IP NURSE HANDOFF: Cespedes hospital course events: 06/01 ED Admit/Hx tx, s/p fall - R. Ankle fx, severe neuropathy 06/02: R. Calcaneal pin. . R. femoral dvt - Heparin drip started 06/04: Hep has been stable for 2 checks overnight, now starting AM checks 06/08 R hindfoot fusion PMHx: Atrial fibrillation, alcoholic cirrhosis, and neuropathy COMFORT/ANXIETY/BEHAVIOR Patient/Family Target: Patient will report controlled pain. Progress to Target: No Change As evidenced by: Patient mostly denies pain, during stay. Continues to receive APAP. [employer] Patient/Family Target: Patient will participate in skin breakdown prevention Progress to Target: Improving As evidenced by: Dressing changed on heel, sunday, per wound care notes. Good strength of extremities. LLE heel floated. NURSING ASSESSMENT & RECOMMENDATIONS FORWARD Nursing Assessment of Patient Stability Risk: Moderately unstable Recommendations Forward: : voids, incontinent at times (stool and urine) Pain: mostly denies pain (neuropathy) Skin: LLE wound care MWF or PRN (saturation/lack of integrity), breakdown on sacrum, q2hr t urns, promote nutrition, BFD on sacrum. Mobility: sling to chair, RLE NWB - per pt he hasn't been walking in 2 weeks Sit to stand x3 today, 2pa Heparin switched to apixaban today Daily wt, w/ sling. Completed this AM MDs notified re drainage through splint Barriers to discharge: mobility lan of Care - Maribell Murphy, PT - 06/09/2020 5:37 PM PDTFormatting of this note might be different from the or iginal. Physical Therapy 06/09/2020 5:38 PM Admitted on 06/01/2020, hospital day 8 Patient seen on 9k Time in: 1110 Time out: 1145 Patient was seen for a total of 35 minutes of direct one on one skilled physical therapy wh ich included 25 minutes of therapeutic activity Brief Hospital Course: Diane An is a 70 y.o. M with atrial fibrillation, alcoholic ci rrhosis, and neuropathy known to the orthopaedic service for left ankle osteomyelitis/failed ankle fusion who is now transferred for management of right ankle fracture dislocation. He states that he is unsure how or when this injury occurred. He recalls an event where he slid out of bed about 3 weeks ago and has noticed his foot slowly externally rotating. He denies any pain due to his underlying neuropathy. (per Dr. Herr's H&P 06/01/20) Orthopaedic Procedure(s): 06/02/20 Working 1. Insertion of right calcaneal pin 2. Dynamic stress examination of right foot and ankle 3. Closed treatment of right pilon fracture 4. Removal of right calcaneal pin 06/08/2020 [place] 1. Right tibial and fibular osteotomy 2. Right ankle and subtalar joint fusions (hindfoot nail) 3. Right peroneal tendon release Relevant Precautions: non weight bearing right lower extremity. Reviewed notes and xrays with Dr. Aguilar - confirmed left lower extremity weight bear as tolerated. Discussed use of C AM boot as option. Subjective: patient reports doing well, would like to go to [facility], awaiting weight bear as tolerated status to get farther along Pain: indicates none/10 Objective: minimal wiggle of right lower extremity toes, able to long arc quad but not to t erminal knee extension. left lower extremity erythema, edematous with ulcer on heel - Dr. Jacinda brenner has ordered rooke boot/dorsiflexion boot to off load per nursing with first option worki ng the best. Better long arc quad on left but still not full extension. Neuropathy bilater al toes with limited sensation, intact near knee. CAM boot explanation - discussed fit (went with medium/large but might benefit from xlarge) . Cueing for donning and doffing and purpose. Supine to sitting minimal assist. Sit<>standing with front wheeled walker with bed raised - repeated x 4 with moderate assist of 1-2 person. Cueing for getting left lower extremity fully extended and positioning right lower extremity up off floor out in front of self. Ful l erect last two repetitions - shakiness noted and fatigue. Focus on posterior chain and ge tting hips over feet and under shoulders. Posture in sitting flexed. Use of ceiling lift bed to chair. Left with call light handy and nursing aware. Those present during session: nursing [facility] BASIC MOBILITY Difficulty turning over in bed 3 - A Little - Minimal/Contact Guard Assist/Supervision Difficulty sitting/standing from chair w/ arms 2 - Alot - Maximum/Moderate Assistance Difficulty moving from supine to sitting on edge of bed 3 - A Little - Minimal/contact Guar d Assist/Supervision Help needed moving from /to chair/wheelchair 1 - Unable to do/total assistance - total/Dep endent Assist Help needed walking in hospital room 1 - Unable to do/total assistance - Total/Dependent As sist Help needed climbing 3-5 steps w/railing 1 - Unable to do/total assistance - Total/Dependen t Assist [facility] Basic Mobility Total Score 11 Interpretation of [facility] Short Form - Basic Mobility: CMS Modifier (G-Code) Score (in points) % of Functional Impairment, Limitation, or Restriction CN 6 100% impaired, limited, restricted CM 7-9 At least 80%, but less than 100% impaired, limited, or restricted CL 10-14 At least 60%, but less than 80% impaired, limited, or restricted CK 15-19 At least 40%, but less than 60% impaired, limited, or restricted CJ 20-22 At least 20%, but less than 40% impaired, limited, or restricted CI 23 At least 1%, but less than 20% impaired, limited, or restricted CH 24 0% impaired, limited, or restricted Assessment: good progression, surgery stabilizing right lower extremity - ultimate goal of limited weight bearing on right foot to allow for healing. Discussed goal of stabilizing le ft lower extremity with need to capitalize off standing and progress accordingly (unsure of effective gait before). Deconditioned, poor balance, limited sensation. Tight hamstrings, needs work on hip mobility. See care plan for goals. Updated Plan & Recommendations: 5x/week for Gait/transfer training, therapeutic exercise, t herapeutic activity, education, neuromuscular reeducation Next Visit: up with two person assist - focus on sit<>standing and range of motion Activity Recommendations for Nursing partners: Recommend performing mobility check before mobilizing patient for possible change in status and use of additional assist/lift if needed. - Lights on and curtains open during day hours. - Up to chair for meals or 3x/day with ceiling lift DISCHARGE RECOMMENDATIONS: 24 hour skilled care;Continued PT at next level of care Consulted with: nursing re: recommendations Equipment needed at discharge: defer Maribell Small PT andlelia - Mao Amaya RN - 06/09/2020 1:54 PM PDTNursing Handoff Patient Daily Goal: Rest (06/06/202016) [facility] IP NURSE HANDOFF: Cespedes hospital course events: 06/01 ED Admit/Hx tx, s/p fall - R. Ankle fx, severe neuropathy 06/02: R. Calcaneal pin. . R. femoral dvt - Heparin drip started 06/04: Hep has been stable for 2 checks overnight, now starting AM checks 06/08 R hindfoot fusion PMHx: Atrial fibrillation, alcoholic cirrhosis, and neuropathy COMFORT/ANXIETY/BEHAVIOR Patient/Family Target: Patient will report controlled pain. Progress to Target: No Change As evidenced by: Patient mostly denies pain, during stay. Continues to receive APAP. HEALTH PROMOTION Patient/Family Target: Patient will participate in skin breakdown prevention Progress to Target: Improving As evidenced by: Dressing changed on heel, sunday, per wound care notes. Good strength of extremities. LLE heel floated. NURSING ASSESSMENT & RECOMMENDATIONS FORWARD Nursing Assessment of Patient Stability Risk: Moderately unstable Recommendations Forward: : voids, incontinent at times (stool and urine) Pain: mostly denies pain (neuropathy) Skin: LLE wound care MWF or PRN (saturation/lack of integrity), breakdown on sacrum, q2hr t urns, promote nutrition, BFD on sacrum. Mobility: sling to chair, RLE NWB - per pt he hasn't been walking in 2 weeks Sit to stand x3 today, 2pa Heparin switched to apixaban today Daily wt, w/ sling. Completed this AM MDs notified re drainage through splint Barriers to discharge: mobility andoff - Barbei Leal RN - 06/08/2020 5:49 PM PDTNursing Handoff Patient Daily Goal: Rest (06/06/202016) [facility] IP NURSE HANDOFF: Cespedes hospital course events: 06/01 ED Admit/Hx tx, s/p fall - R. Ankle fx, severe neuropathy 06/02: R. Calcaneal pin. L ankle reduction. R. femoral dvt - Heparin drip started 06/04: Hep has been stable for 2 checks overnight, now starting AM checks 06/08 R hindfoot fusion PMHx: Atrial fibrillation, alcoholic cirrhosis, and neuropathy COMFORT/ANXIETY/BEHAVIOR Patient/Family Target: Patient will report controlled pain. Progress to Target: No Change As evidenced by: Patient mostly denies pain, during stay. More painful post op today, 5mg oxy given x [address] op, fentanyl and toradol given in PACU Continues to receive APAP. HEALTH PROMOTION Patient/Family Target: Patient will participate in skin breakdown prevention Progress to Target: Improving As evidenced by: Dressing changed on heel, Sunday, per wound care notes. Good strength of extremities. LLE heel floated. NURSING ASSESSMENT & RECOMMENDATIONS FORWARD Nursing Assessment of Patient Stability Risk: Moderately unstable Recommendations Forward: : voids, incontinent at times (stool and urine) Pain: mostly denies pain (neuropathy) Skin: LLE wound care MWF or PRN (saturation/lack of integrity), breakdown on sacrum, q2hr t urns, promote nutrition, BFD on sacrum. Mobility: sling to chair, RLE NWB - per pt he hasn't been walking in 2 weeks qAM Heparin level checks Daily wt, w/ sling. Completed this AM MDs notified re drainage through splint Barriers to discharge: mobility andCosta Candelaria RN - 06/08/2020 2:34 PM PDTNursing Handoff Patient Daily Goal: Rest (06/06/202016) [facility] IP NURSE HANDOFF: Cespedes hospital course events: 06/01 ED Admit/Hx tx, s/p fall - R. Ankle fx, severe neuropathy 06/02: R. Calcaneal pin. L ankle reduction. R. femoral dvt - Heparin drip started 06/04: Hep has been stable for 2 checks overnight, now starting AM checks 06/08 R hindfoot fusion PMHx: Atrial fibrillation, alcoholic cirrhosis, and neuropathy COMFORT/ANXIETY/BEHAVIOR Patient/Family Target: Patient will report controlled pain. Progress to Target: No Change As evidenced by: Patient mostly denies pain, during stay. More painful post op today, 5mg oxy given x [address] op, fentanyl and toradol given in PACU Continues to receive APAP. HEALTH PROMOTION Patient/Family Target: Patient will participate in skin breakdown prevention Progress to Target: Improving As evidenced by: Dressing changed on heel, Sunday, per wound care notes. Good strength of extremities. LLE heel floated. NURSING ASSESSMENT & RECOMMENDATIONS FORWARD Nursing Assessment of Patient Stability Risk: Moderately unstable Recommendations Forward: : voids, incontinent at times (stool and urine) Pain: mostly denies pain (neuropathy) Skin: LLE wound care MWF or PRN (saturation/lack of integrity), breakdown on sacrum, q2hr t urns, promote nutrition, BFD on sacrum. Mobility: sling to chair, RLE NWB - per pt he hasn't been walking in 2 weeks qAM Heparin level checks-waiting to hear from MDs as to restarting post op Daily wt, w/ sling. Completed this AM MDs notified re drainage through sling Barriers to discharge: Surgical course Steve Gomez, Tejas andersen RN - 06/08/2020 12:00 PM PDTSharifa Phase I Discharge Criteria (Stable For Transfer): Yes Major deviations/events or pertinent findings of dennis-operative stay: none Anticipated post-op needs/devices/follow up: pain mgmt * No Diagnosis Codes entered * Surgical Procedure Planned - Actual Procedure Performed: Procedure(s): RIGHT HINDFOOT NAILING Anesthesia: General Length of procedure: In Room/Out of Room: 3 Hr 21 Min 36 Sec Surgeon(s) and Role: * Marty Fam MD - Primary OR positioning comments: none Neuro: POSS Sedation Level: 1 Last pain medication given: Fentanyl Push: 25 mcg (06/08/20 1130) Pain medication totals: 25mcg fentanyl, 15mg toradol Additional pain medication information: none Functional Epidural: No NUCLEAR MEDICINE OFFICER: No Respiratory: RR: 13 , O2 Sat: 96 % , O2 Delivery: None (room air) Breath Sounds: Ex BEBE: LLL: RUL: RLL: MARK No Comment: n/a Cardiac: BP: 92/60 HR: 83 GI: Nausea/Vomiting Status: No Signs/Symptoms: Interventions: Assessment: Comments: water drank in pacu : Last void: straight cath around 1100 in OR Contact Name: na Contact Number: na Family contacted: No Comment:none in chart Belongings:in room p Note - Marty Fam MD - 06/08/2020 11:53 AM PDT . Patient: Diane An : 1950 Date of procedure: 06/08/2020 Times Event Time In Procedure Start SunJun 08, 2020 0820 Procedure Stop SunJun 08, 2020 1056 Location: [facility] Surgeon(s) and Role: * Marty Fam MD - Primary Anesthesiologist: Anesthesiologist: Esteban Rosas MD A[facility] Resident: Alka Rosales MD Staff: Supervisor Sewing Department: Joe Velasquez RN Scrub: ST Debbie Supervisor Sewing Department Relief: Jay Cavanaugh RN Supervisor Sewing Department Orientee: Chito Brooke RN Grade Teacher: Lamine Aguilar MD Pre Op Dx: RIGHT CHARCOT ANKLE Post Op Dx: same Procedure: Right tibial and fibular osteotomy Right ankle and subtalar joint fusions (hindfoot nail) Right peroneal tendon release Anesthesia: Regional/Block And GETA Complications: None Findings: N/A Estimated Blood Loss: 450 Drains: * No LDAs found * Specimens None Implants/Grafts Implant Name Model No. Inv. Item Serial No. Network Operations Lead Lot No. LRB No. Used Action Size NAIL 11.5MM 16CM RIGHT HINDFOOT TRIGEN INTRAMEDULLARY FUSION - [id number] NAIL 11. 5MM 16CM RIGHT HINDFOOT TRIGEN INTRAMEDULLARY FUSION [employer] [id number] Right 1 Impla nted SCREW BONE 5MM 70MM TRIGEN FEMUR LOW PROFILE - [id number] SCREW BONE 5MM 70MM TRIGE N FEMUR LOW PROFILE [employer] [id number] Right 1 Implanted SCREW BONE 5MM 37.5MM TRIGEN FEMUR LOW PROFILE - [id number] SCREW BONE 5MM 37.5MM T RIGEN FEMUR LOW PROFILE [employer] [id number] Right 1 Implanted SCREW BONE 5MM 85MM TRIGEN FEMUR LOW PROFILE - [id number] SCREW BONE 5MM 85MM TRIGE N FEMUR LOW PROFILE [employer] [id number] Right 1 Implanted SCREW BONE 5MM 30MM TRIGEN FEMUR LOW PROFILE - [id number] SCREW BONE 5MM 30MM TRIGE N FEMUR LOW PROFILE [employer] [id number] Right 1 Implanted SCREW BONE 5MM 30MM TRIGEN FEMUR LOW PROFILE - [id number] SCREW BONE 5MM 30MM TRIGE N FEMUR LOW PROFILE [employer] [id number] Right 1 Implanted Indications for Procedure(s): Diane An is a 70 y.o. male with history of charcot ankle. We discussed operative parth lignment and fusion. I reviewed the planned procedure, alternatives the associated risks an d answered questions. We discussed the risks of the procedure including but not limited to bleeding, infection, damage to nerves/tendons/vessels, possible need for further surgery, po ssible loss of limb and life, blood clots, and anesthesia complications. He expressed under standing, and wishes to proceed. Surgical Findings In Brief: [place] edema in RLE Description of the procedure(s) in detail: The patient was seen in the preoperative area where the consent form was reviewed and confi rmed with the patient, the correct site was marked, and the patient freely assented to proce ed with the procedure as planned. The patient was then brought back to the operating room. Anesthesia was induced without event. The patient was positioned appropriately in the supine position, and bony prominances were padded. A tourniquet was not placed around the thigh. The thigh was occluded with a 10-15 drape. The surgical site was prepped and draped in the usual sterile fashion. Prior to the beginning of the procedure the team paused to verify the patient's identity, a s well as the procedure to be performed and the correct side/site. All equipment required w as ready and available. Images were confirmed. The appropriate implants and instruments we re available. Antibiotics were administered prior to incision. Sequential compression denzel diego were placed prior to incision as well. Approach for medial ankle: The incision was planned and then marked on the skin for a medial approach. An incision us ing a 15 blade was made through the skin and subcutaneous tissue. The medial malleolar frag ment and distal tibia were identified and a saw was used to make an osteotomy in the distal tibia. Then both the medial malleolus and distal tibia were carefully delivered and removed . Then the dome of the talus was prepped with a flat cut with saw. Then the anterolateral plafond was noted to be interposed and was removed. Then the intact fibula was noted to be obstructing correction, and an osteotome was introduced and used to osteotomize and free it. Approach for lateral sinus tarsi: The incision was planned and then marked on the skin for a sinus tarsi approach. An incisi on using a 15 blade was made through the skin and subcutaneous tissue. The peroneals were n oted to be contracted. These were released. Then the lateral subtalar joint was accessed a nd prepped with curette, osteotome and rongeur. Then a plantar approach was made. The guide wire was placed and the ankle was held in a ne utral position on AP and lateral. Then the opening reamer was used. Then ball tipped guide was placed; then the canal was reamed to 12.5. Then the 11.5mm X160 nail was placed. Dist al interlocks were placed perc X3. Then the rotation and impaction was set, and then proxim al perc interlocks were placed. Fluoro confirmed alignment and fixation. Wounds were irrigated. Closure was 2-0 nylon. Tobragation 2.4 was used as an irrigant after closure. A sterile dressing was then placed consisting of xeroform, fluffs, ABDs and a short leg gwen ster NWB splint. The patient was woken from anesthesia in the operating room and then trans ferred to the post anesthesia care unit in stable condition. At the end of the case the final instrument and sponge counts were correct. Marty Herrera was present/available during the critical portions of the procedure. Disposition/Post operative plan: 1. Weight Bearing: NWB 2. Acute pain: IV/PO 3. Diet: Advance 4. PACU Disposition: Floor 5. Medications: Resume 6. VTE prophalaxis: Rivaroxiban or lovenox for 6 weeks 7. Anticipated discharge: when D/C goals are met 8. Wound instructions Keep splint Clean, dry, intact 9. First post op visit at 3 weeks, will eval for suture/staple removal 10. Weightbearing at 10-12 weeks 11. Cast placement at 3 weeks postop 12. Imaging at 6 weeks 3V ankle aMrty Fam MD 06/08/2020, 12:00 PM rief Op Note - Lamine Aguilar MD - 06/08/2020 10:51 AM PDTFormatting of this note might be different from the orig inal. Date of procedure: 06/08/2020 Times Event Time In Procedure Start SunJun 08, 2020 0820 Location: [facility] Surgeon(s) and Role: * Marty Fam MD - Primary Anesthesiologist: Anesthesiologist: Esteban Rosas MD [facility] Resident: Alka Rosales MD Staff: Supervisor Sewing Department: Joe Velasquez RN Scrub: ST Debbie Supervisor Sewing Department Relief: Jay Cavanaugh RN Supervisor Sewing Department Orientee: Chito Brokoe RN Grade Teacher: Lamine Aguilar MD Pre Op Dx: RIGHT CHARCOT ANKLE Right leg cellulitis Right heel chronic heel ulcer Post Op Dx: Same Procedure: Right hindfoot fusion Anesthesia: General Estimated Blood Loss: 400mL Specimens None Implants/Grafts Implant Name Model No. Inv. Item Serial No. Network Operations Lead Lot No. LRB No. Used Action Size NAIL 11.5MM 16CM RIGHT HINDFOOT TRIGEN INTRAMEDULLARY FUSION - [id number] NAIL 11. 5MM 16CM RIGHT HINDFOOT TRIGEN INTRAMEDULLARY FUSION [employer] [id number] Right 1 Impla nted SCREW BONE 5MM 70MM TRIGEN FEMUR LOW PROFILE - [id number] SCREW BONE 5MM 70MM TRIGE N FEMUR LOW PROFILE [employer] [id number] Right 1 Implanted SCREW BONE 5MM 37.5MM TRIGEN FEMUR LOW PROFILE - [id number] SCREW BONE 5MM 37.5MM T RIGEN FEMUR LOW PROFILE [employer] [id number] Right 1 Implanted SCREW BONE 5MM 85MM TRIGEN FEMUR LOW PROFILE - [id number] SCREW BONE 5MM 85MM TRIGE N FEMUR LOW PROFILE [employer] [id number] Right 1 Implanted SCREW BONE 5MM 30MM TRIGEN FEMUR LOW PROFILE - [id number] SCREW BONE 5MM 30MM TRIGE N FEMUR LOW PROFILE [employer] [id number] Right 1 Implanted SCREW BONE 5MM 30MM TRIGEN FEMUR LOW PROFILE - [id number] SCREW BONE 5MM 30MM TRIGE N FEMUR LOW PROFILE [employer] [id number] Right 1 Implanted Complications: N/A Lamine Aguilar MD Post Operative Plan: Antibiotics: Ancef x 72hr Weight bearing: NWB RLE ROM: As tolerated through knee. Maintain splint Post operative Images: None Special: Chemothromboppx per primary. Ok to start POD0 lan of Care - , Brina goncalves RN - 06/08/2020 9:56 AM PDT.[facility] - Care Management Reason for Admission: R ankle fracture dislocation. He is uncertain of how this injury occu rred. Transfer form OSH. Chronic edema and neuropathy to lower extremities. RAPT: 4 Procedure: MD Working on 06/02: 1. Insertion of right calcaneal pin. 2. Dynamic stress examination of right foot and ankle. 3. Closed treatment of right pilon fracture. 4. Removal of right calcaneal pin. Living Situation: Retired lives alone in an apartment in [place]. He must ascend 13 steps to enter his apartment, he is hoping to relocate to an apartmentt on the first floor, but d ue to COVID issues, he is having a difficult time getting things moved into that apt Does n ot walk at baseline for over 2 weeks unless he uses a walker. When he walks he can go one bl ock at most. Own medical decision maker, no POLST. Per PT: does not wish to use WC. Discharge Plan: NWB, will go to [facility] in [place] on 06/11/20. Warm Hand-Off: Unit CM Guillermina Oden and Nils Amador given hand-off Please see other disciplines' progress notes for their discharge recommendations. Will cont inue to follow for 90 day episode post discharge. Ld Rodriguez BSc, BSN, MANDO [facility] CJR/ENRIQUEA Branch Coordinator C: [phone] Pager: [phone] @[email or web address] Mail Code: [facility] 8L Steve - Alonso Lin RN - 06/08/2020 12:47 AM PDTNursing Handoff Patient Daily Goal: Rest (06/06/202016) [facility] IP NURSE HANDOFF: Cespedes hospital course events: 06/01 ED Admit/Hx tx, s/p fall - R. Ankle fx, severe neuropathy 06/02: R. Calcaneal pin. L ankle reduction. R. femoral dvt - Heparin drip started 06/04: Hep has been stable for 2 checks overnight, now starting AM checks PMHx: Atrial fibrillation, alcoholic cirrhosis, and neuropathy COMFORT/ANXIETY/BEHAVIOR Patient/Family Target: Patient will report controlled pain. Progress to Target: No Change As evidenced by: Patient denies pain. Continues to receive APAP. HEALTH PROMOTION Patient/Family Target: Patient will participate in skin breakdown prevention Progress to Target: Improving As evidenced by: Dressing changed on heel, per wound care notes. Good strength of extremities. LLE heel fl oated. NURSING ASSESSMENT & RECOMMENDATIONS FORWARD Nursing Assessment of Patient Stability Risk: Moderately unstable Recommendations Forward: : voids, incontinent at times (stool and urine) Pain: denies pain (neuropathy), does not appear painful Skin: LLE wound care MWF or PRN (saturation/lack of integrity), breakdown on sacrum, q2hr t urns, promote nutrition, BFD on sacrum. Mobility: sling to chair, RLE NWB - per pt he hasn't been walking in 2 weeks qAM Heparin level checks Daily wt, w/ sling. Completed this AM Plan for OR tomorrow to finalize repair on R ankle Barriers to discharge: Surgical course Tree Mathews RN - 06/07/2020 8:02 PM PDTNursing Handoff Patient Daily Goal: Rest (06/06/202016) [facility] IP NURSE HANDOFF: Cespedes hospital course events: 06/01 ED Admit/Hx tx, s/p fall - R. Ankle fx, severe neuropathy 06/02: R. Calcaneal pin. L ankle reduction. R. femoral dvt - Heparin drip started 06/04: Hep has been stable for 2 checks overnight, now starting AM checks. HYGIENE/INFECTION Patient/Family Target: Pt will get a bed bath Progress to Target: Improving As evidenced by: Diane was able to get a full bed bath, shampoo, and linen change this AM HEALTH PROMOTION Patient/Family Target: Diane will participate in skin breakdown prevention Progress to Target: Improving As evidenced by: Diane is able to mobilize with minimal assist in bed and demonstrates good strength in ext remities. Air matress in place. NWB BLE (paged for clarification x1, discussion w/ MD x1, states they will update with day team) LLE heel floated, dressing intact Encouraging frequent repositioning and adequate nutrition. Verbalized understanding. NURSING ASSESSMENT & RECOMMENDATIONS FORWARD Nursing Assessment of Patient Stability Risk: Moderately unstable Recommendations Forward: : voids, incontinent at times (stool and urine) Pain: denies pain (neuropathy), does not appear painful Skin: LLE wound care MWF or PRN (saturation/lack of integrity), breakdown on sacrum, q2hr t urns, promote nutrition, BFD on sacrum. Mobility: sling to chair, RLE NWB - per pt he hasn't been walking in 2 weeks qAM Heparin level checks Daily wt, w/ sling. Completed this AM Plan for OR tomorrow to finalize repair on R ankle Barriers to discharge: Surgical course lan of Mavis - Gonzalez Doss - 06/07/2020 1:50 PM PDT Physical Therapy 06/07/2020 1:50 PM Admitted on 06/01/2020, hospital day 6 Patient was seen for a total of 35 minutes of direct one on one skilled physical therapy wh ich included 35 minutes of therapeutic activity Present throughout session other than pt and therapist: none Current unit: 9k 1. Right ankle chronic pilon fracture dislocation 2. Charcot Right ankle Procedure: 1. Insertion of right calcaneal pin 2. Dynamic stress examination of right foot and ankle 3. Closed treatment of right pilon fracture 4. Removal of right calcaneal pin Relevant Precautions:RLE NWB Subjective: haven't seen the doctors today Pain: did not rate/10 Objective: Upon arrival to room pt found supine in the bed. Supine exercises: Heel slides , hip abd/add , ankle pumps left only , quad set verbal cues and monitoring of non weight bearing right lower extremity , glut sets X 10 reps bilatera l. Supine to sit right side of the bed with head of the bed at 30 use of rail. Sat edge of bed for long period of time working on upright tolerance without additional ass ist and exercise : ankle pumps left only, long arc quads , march in place , elbow flexion/ex tension, shoulder flexion, abduction, forward punches, shoulder blade pinches , shoulder shr ugs. left upper extremity lacks full range of motion due to Old injury. Return to supine, Provided pillows right lower extremity for edema management, for left lower extremity for h eel pressure prevention, breakfast arrived and assisted in set up , provided call light, rekha julia and urinals all in reach. [facility] BASIC MOBILITY Difficulty turning over in bed 2 - Alot - Maximum/Moderate Assistance Difficulty sitting/standing from chair w/ arms 1 - Unable to do/total assistance - Total De pendent Assist Difficulty moving from supine to sitting on edge of bed 3 - A Little - Minimal/contact Guar d Assist/Supervision Help needed moving from /to chair/wheelchair 1 - Unable to do/total assistance - total/Dep endent Assist Help needed walking in hospital room 1 - Unable to do/total assistance - Total/Dependent As sist Help needed climbing 3-5 steps w/railing 1 - Unable to do/total assistance - Total/Dependen t Assist [facility] Basic Mobility Total Score 7 Interpretation of [facility] Short Form - Basic Mobility: CMS Modifier (G-Code) Score (in points) % of Functional Impairment, Limitation, or Restriction CN 6 100% impaired, limited, restricted CM 7-9 At least 80%, but less than 100% impaired, limited, or restricted CL 10-14 At least 60%, but less than 80% impaired, limited, or restricted CK 15-19 At least 40%, but less than 60% impaired, limited, or restricted CJ 20-22 At least 20%, but less than 40% impaired, limited, or restricted CI 23 At least 1%, but less than 20% impaired, limited, or restricted CH 24 0% impaired, limited, or restricted Assessment: very pleasant gentleman, motivated to participate See care plan for goals. Updated Plan & Recommendations: Continue with acute care PT. Pt will benefit from re-eval t o progress goals Frequency 4x Discharge Recommendations: 24 hour skilled care (He would like to disch to [facility] in [place].) Equipment recommendations: to be determined Cathie Doss [employer] [id number] Britt Gilmore RN - 06/06/2020 2:01 PM PDTNursing Handoff Patient Daily Goal: RN advocate for mobilization, pain control, hygiene, and pulm exercises (06/05/201953) [facility] IP NURSE HANDOFF: Cespedes hospital course events: 06/01 ED Admit/Hx tx, s/p fall - R. Ankle fx, severe neuropathy 06/02: R. Calcaneal pin. L ankle reduction. R. femoral dvt - Heparin drip started 06/04: Hep has been stable for 2 checks overnight, now starting AM checks. HEALTH PROMOTION Patient/Family Target: Diane will participate in skin breakdown prevention Progress to Target: Improving As evidenced by: Diane is able to mobilize with minimal assist in bed and demonstrates good strength in ext remities. Air matress in place. NWB BLE (paged for clarification x1, discussion w/ MD x1, states they will update with day team) LLE heel floated, dressing intact Encouraging frequent repositioning and adequate nutrition. Verbalized understanding. NURSING ASSESSMENT & RECOMMENDATIONS FORWARD Nursing Assessment of Patient Stability Risk: Moderately unstable Recommendations Forward: : voids, incontinent at times (stool and urine) Pain: denies pain (neuropathy), does not appear painful Skin: LLE wound care MWF or PRN (saturation/lack of integrity), breakdown on sacrum, q2hr t urns, promote nutrition, BFD on sacrum. Mobility: sling to chair, RLE NWB - per pt he hasn't been walking in 2 weeks qAM Heparin level checks Daily wt, w/ sling. Completed this AM Plan for OR next week (Sun/Sun) to finalize repair on R ankle Barriers to discharge: Surgical course Alonso Gay RN - 06/06/2020 6:00 AM PDTNursing Handoff Patient Daily Goal: Rest (06/06/202016) [facility] IP NURSE HANDOFF: Cespedes hospital course events: 06/01 ED Admit/Hx tx, s/p fall - R. Ankle fx, severe neuropathy 06/02: R. Calcaneal pin. L ankle reduction. R. femoral dvt - Heparin drip started 06/04: Hep has been stable for 2 checks overnight, now starting AM checks. HEALTH PROMOTION Patient/Family Target: Patient will participate in skin breakdown prevention Progress to Target: Improving As evidenced by: Patient is able to turn minimal assist in bed and has good strength in bilateral extremit ies. Dressing in place and dry and intact in sacral region. LLE heel floated, dressing intact. Encouraging frequent repositioning and adequate nutrition. Verbalized understanding. Ate 10 0% of meal. NURSING ASSESSMENT & RECOMMENDATIONS FORWARD Nursing Assessment of Patient Stability Risk: Moderately unstable Recommendations Forward: : voids, incontinent at times (stool and urine) Pain: Denies pain (neuropathy) Skin: LLE wound care MWF or PRN (saturation/lack of integrity), breakdown on sacrum, q2hr t urns, promote nutrition, BFD on sacrum. Mobility: sling to chair, RLE NWB - per pt he hasn't been walking in 2 weeks qAM Heparin level checks Daily wt, w/ sling. Completed this AM Plan for OR this week (Sun/Sun) to finalize repair on R ankle Barriers to discharge: Surgical course andoff - Fab Curran RN - 06/06/2020 6:00 AM PDTNursing Handoff Patient Daily Goal: RN advocate for mobilization, pain control, hygiene, and pulm exercises (06/05/201953) [facility] IP NURSE HANDOFF: Cespedes hospital course events: 06/01 ED Admit/Hx tx, s/p fall - R. Ankle fx, severe neuropathy 06/02: R. Calcaneal pin. L ankle reduction. R. femoral dvt - Heparin drip started 06/04: Hep has been stable for 2 checks overnight, now starting AM checks. HEALTH PROMOTION Patient/Family Target: Idane will participate in skin breakdown prevention Progress to Target: Improving As evidenced by: Diane is able to mobilize with minimal assist in bed and demonstrates good strength in ext remities. Air matress in place. NWB BLE (paged for clarification x1, discussion w/ x1, states they will update with day team) LLE heel floated, dressing intact Encouraging frequent repositioning and adequate nutrition. Verbalized understanding. NURSING ASSESSMENT & RECOMMENDATIONS FORWARD Nursing Assessment of Patient Stability Risk: Moderately unstable Recommendations Forward: : voids, incontinent at times (stool and urine) Pain: denies pain (neuropathy), does not appear painful Skin: LLE wound care MWF or PRN (saturation/lack of integrity), breakdown on sacrum, q2hr t urns, promote nutrition, BFD on sacrum. Mobility: sling to chair, RLE NWB - per pt he hasn't been walking in 2 weeks qAM Heparin level checks Daily wt, w/ sling. Completed this AM Plan for OR next week (Sun/Sun) to finalize repair on R ankle Barriers to discharge: Surgical course lan of Care - Cathie Hercules - 06/04/2020 1:24 PM PDTFormatting of this note might be different from the aldair lilli. Physical Therapy 06/04/2020 1:25 PM Admitted on 06/01/2020, hospital day 3 Patient was seen for a total of 40 minutes of direct one on one skilled physical therapy wh ich included 40 minutes of therapeutic activity Present throughout session other than pt and therapist: none Current unit: 9k Brief Hospital Course: Diane An is a 70 yo man who was admitted on 06/01/2020: 1. Right ankle chronic pilon fracture dislocation 2. Charcot Right ankle Procedure: 1. Insertion of right calcaneal pin 2. Dynamic stress examination of right foot and ankle 3. Closed treatment of right pilon fracture 4. Removal of right calcaneal pin Indication for Physical Therapy Evaluation: concerns for impaired mobility to aid in disch planning Relevant Precautions: RLE NWB Subjective: pt very talkative. Reports he may need to get on a bedpan eventually Pain: did not rate /10 Objective: Upon arrival to room pt found supine in the bed. Educated on non weight bearing right lower extremity Supine exercise : ankle pumps left only, quad sets monitoring right lower extremity to ens ure non weight bearing, glut sets, heel slides , hip abduction/ adduction all x 10-15 reps b ilateral Supine to/from sit right side of the bed use of rail, minimum - stand by assist , head of t he bed at 45 degrees. Sat edge of bed for long period of time working on upright tolerance, stand by assist only, ankle pumps left , long arc quads and march in place , upper extremity elbow fleixon, shoul radni flexion limited on left due to old injury, forward punches. Side scoot 8 inches towards head of the bed , blocking left lower extremity to prevent foot from slipping , compliant with non weight bearing right lower extremity . Pt left supine in the bed, pillow tucked under right hip to prevent external rotation, pill ows under bilateral lower extremity 2 for left to prevent heel from touching bed surface, pr ovided phones, call light, urinal and water in reach. [facility] BASIC MOBILITY Difficulty turning over in bed 2 - Alot - Maximum/Moderate Assistance Difficulty sitting/standing from chair w/ arms 1 - Unable to do/total assistance - Total De pendent Assist Difficulty moving from supine to sitting on edge of bed 3 - A Little - Minimal/contact Guar d Assist/Supervision Help needed moving from /to chair/wheelchair 1 - Unable to do/total assistance - total/Dep endent Assist Help needed walking in hospital room 1 - Unable to do/total assistance - Total/Dependent As sist Help needed climbing 3-5 steps w/railing 1 - Unable to do/total assistance - Total/Dependen t Assist [facility] Basic Mobility Total Score 7 Interpretation of [facility] Short Form - Basic Mobility: CMS Modifier (G-Code) Score (in points) % of Functional Impairment, Limitation, or Restriction CN 6 100% impaired, limited, restricted CM 7-9 At least 80%, but less than 100% impaired, limited, or restricted CL 10-14 At least 60%, but less than 80% impaired, limited, or restricted CK 15-19 At least 40%, but less than 60% impaired, limited, or restricted CJ 20-22 At least 20%, but less than 40% impaired, limited, or restricted CI 23 At least 1%, but less than 20% impaired, limited, or restricted CH 24 0% impaired, limited, or restricted Assessment: pt with improved edge of bed tolerance no need for assist See care plan for goals. Updated Plan & Recommendations: Continue per plan of care toward goals Sunday Frequency 4x Discharge Recommendations: 24 hour skilled care (He would like to disch to [facility] in [place].) Equipment recommendations: to be determined JELANI Tristan [id number] lan of Care - Esha Faria OT - 06/04/2020 11:35 AM PDTFormatting of this note might be different from the orig ina. Occupational Therapy Evaluation [id number] DIANE AN Date of : 1950 Start of care: 06/01/2020 Date of onset: 06/01/2020 Referring/Attending Practitioner: Malik Mcmillan MD Primary/Referral Diagnosis/ICD-9: S82.851A Closed trimalleolar fracture of right ankle, ini tial encounter G60.8 Neuropathy, hereditary sensory (per patient w ++ 1st degree FH) I48.91 Atrial fibrillation, unspecified type (HCC) I10 Essential hypertension K70.30 "Cirrhosis, Laennec's" (HCC) = per chart Insurance: Payor: MEDICARE / Plan: MEDICARE A & B / Product Type: Medicare / Service Period: 06/04/2020 to 07/04/2020 07/04/2020 11:36 AM Time in: 1033 Time out: 1123 Pt admitted on 06/01/2020, hospital day # 3. Seen on 9K. Brief Hospital Course: Diane An is a 70 yo man who was admitted on 06/01/2020: 1. Right ankle chronic pilon fracture dislocation 2. Charcot Right ankle Procedure: 1. Insertion of right calcaneal pin 2. Dynamic stress examination of right foot and ankle 3. Closed treatment of right pilon fracture 4. Removal of right calcaneal pin (per 06/04/2020 note) Relevant Precautions: RLE NWB, LLE heel wound Indication for Occupational Therapy Consult: Assess pt's level of function for ADLs and fun ctional mobility,safety with ADL performance, assess need for adaptations, educate pt and/or family on precautions and determine adaptive equipment and safety techniques for discharge planning Past Medical History: Diagnosis Date Atrial fibrillation (HCC) Neuropathy History reviewed. No pertinent past surgical history. Present in Session: Nursing staff and Patient Only Living Environment and Prior Level of Function: Per patient he lived in an apartment, inde pendently, with caregiver assistance-for making dinner at night and health aid 2x a week. Patient / Family Goal: to get better to get to a rehab place Barriers: Clinical course, Wt bearing restricitions Pain: No pain at this time.lack of sensation Bilateral lower extremity could be contributi ng to no pain. Vital signs: Not tested. patient asymptomatic Cognitive Screen Level of alertness: Alert Orientation: O x 3 Quality of responses: Good coherent, was able to follow 2 steps instructions with visual cues and demonstration as needed. Command following: Intact, 2 steps Memory: Presents as Intact. Not formally tested. Judgement / safety awareness: Affected Attention / Concentration: Intact Barriers to Learning: None Affect: APpropriate CAM: Negative Visual Perception: Visual tracking Intact Visual Field not formally tested, able to locate itme in the vicinity UE Physical Assessment Dominant Hand: Right ROM:WFL Rt upper extremity, Affected Left upper extremity at shoulder from prior injury. M ild limitations at end ROM Strength: WFL, UE Edema: None upper extremity, presents LE Skin Integrity: Intact upper extremity, Left heel pressure wound, per orders Keep heel fl oating at all times. UE Neurological Function Sensation: Intact upper extremity, affected lower extremity- hypoesthesia Bilateral lower extremity up to the knees. Muscle Tone: WNL Proprioception: WFL Gross Motor: WFL Fine Motor: Affected however functional, Mild tremors Bilateral hands Activities of Daily Living: UB Dressing: SBA UB Grooming: SBA LB Dressing: modA Toileting: Urination uses urinal independently. Uses bed matias with max A Ambulation with ADL: Not applicable. patient Non Wt bearing t lower extremity and has a he el pressure sore on Left heel. Transfers: Dependent transfers with ceiling lift assist [facility] daily activity assessment [facility] DAILY ACTIVITY - How much help from another person does the patient currently need f or: Lower body dressing 2 - Alot Bathing 2 - Alot Toileting 2 - Alot Upper body dressing 3 - Little Personal grooming 3 - Little Eating meals 4 - None [facility] Daily Activity Total Score 16 1 - Unable to do/total assistance = Total/Dependent Assist 2 - A lot = Maximum/Moderate Assistance 3 - A little = Minimal/Contact Guard Assist/Supervision 4 None = Modified independent/Independent Interpretation of [facility] Short Form Daily Activity: CMS Modifier (G-Code) Score (in points) % of Functional Impairment, Limitation, or Restriction CN 6 100% impaired, limited, restricted CM 7-9 At least 80%, but less than 100% impaired, limited, or restricted CL 10-14 At least 60%, but less than 80% impaired, limited, or restricted CK 15-19 At least 40%, but less than 60% impaired, limited, or restricted CJ 20-22 At least 20%, but less than 40% impaired, limited, or restricted CI 23 At least 1%, but less than 20% impaired, limited, or restricted CH 24 0% impaired, limited, or restricted Treatment provided this date: Order received, chart reviewed and OT evaluation completed. Approached patient for therapy, agreeable to participate. Education: Educated patient in role of OT and POC. Discussed self care goals and patient sp ecific goals. patient expressed interest I self shaving and LB dressing. ADL training: OT encouraged bed mobility using step by step verbal instructions for lower e xtremity positioning off the bed. CGA for supine to sit up a edge of bed. Sit balance good. patient able to maintain sustained sitting at edge of bed without balance issues for 30 min. Set up A for grooming at edge of bed level. Mod A for cleaning UB, LB and back with wet wash cloth. patient initiating the task however gets distracted talking Discussed small NEVAEH goals at edge of bed- grooming-shaving self, feeding self at edge of be d and in prep for near future LB dressing . Therapeutic activity: Therapist facilitated side scooting at edge of bed with instructions to forefoot wt bearing only for Left foot to ensure heel offload. OT consulted RN, Physical Therapist to get clarification on left heel wt bearing. Educated patient to maintain guarded wt bearing on left heel; until clarification. patient agreeable. Ended session: patient back in bed, all needs in reach, ASSESSMENT: DIANE AN presents well below baseline after recent change in medical status and is li mited by wt bearing restrictions in lower extremity, skin conditions, neuropathy affecting l ower extremity functioning, weakness, easy fatigue, increased assistance need for mobility a nd transfers as well as ADL participation, deficits in judgement, safety , problem solving e tc DIANE AN will benefit with skilled OT to improve in strength, coordination and endura nce for safe ADL participation with/without adaptive techniques/devices, improve mobility to participate in safe transfers at least restrictive mobility device and get safe discharge t o skilled care as a next level of care. Short term goals: 1. patient will participate in LB dressing at edge of bed level with min A for pulling them over hips 2. patient will demonstrate improved ease with side to side transfers/scooting at edge of b ed in prep for potential slid board transfers on/off a BSC 3. patient will complete sit to stand transition within wt bearing precautions at Front whe eled walker level in prep for standing and reaching for objects at bedside. ACTIVITY/ENVIRONMENTAL RECOMMENDATIONS: *Nursing to re-assess per shift as needed.* Ceiling lift to bedside chair, OOB for all meals, encourage ADL participation Cognitive Pyramid : Memory & New Learning: Highly structured environment - Minimal distraction - Provide external orientation aids: utilize white board and cue correct date, place, sit uation, simple goals for the day - For safe mobility: Raise awareness of possible fall hazards, demonstrate safety strateg ies - Provide assist to identify when problem is occurring, help generate possible solutions - Focus on one activity or one person at a time - Help patient to prioritize activities - Provide immediate and objective feedback during the activity - Anticipate need for frequent repetition for understanding - Guide prioritization of top 2 goals for patient to focus on - Acknowledge frustration as needed and address concerns in a timely manner DISCHARGE RECOMMENDATIONS: PLAN: ADL training, Therapeutic activity and Therapeutic exercises Frequency: 3 x week, Duration: 3 weeks DIANE AN knowledge of disease process: Fair The above plan of care and goals were developed and reviewed with the patient. The skills o f this therapist are necessary to safely and effectively furnish a recognized therapy servic e whose goal is improvement of an impairment or functional limitation. Evaluation Complexity (MODERATE): History of 1-2 personal factors or comorbidities Examination using tests or measures for 3+ elements of body structure/function, activity li mitation or participation restriction Clinical presentation is evolving and changing characteristics Clinical decision making of moderate complexity Time in: 1033 Time out: 1123 Patient was seen for an OT evaluation total time 50 min and a total of minutes of 25 direct one on one skilled OT treatment which included: - ADL Trainin minutes - Esha Faria OT andoff - Sada Serrano RN - 06/04/2020 8:20 AM PDTNursing Handoff Patient Daily Goal: "get up to chair and get to moving" (06/03/20 0852) [facility] IP NURSE HANDOFF: Cespedes hospital course events: 06/01 ED Admit/Hx tx, s/p fall - R. Ankle fx, severe neuropathy 06/02: R. Calcaneal pin. L ankle reduction. R. femoral dvt - Heparin drip started 06/04: Hep has been stable for 2 checks overnight, now starting AM checks. As evidenced by: HEALTH PROMOTION Patient/Family Target: Pt will have no further skin breakdown Progress to Target: No Change As evidenced by: Encouraging pt to turn Q2-4, pt able to turn well in bed. Air mattress in place now. NURSING ASSESSMENT & RECOMMENDATIONS FORWARD Nursing Assessment of Patient Stability Risk: Moderately unstable Recommendations Forward: GI: Reg : voids, incontinent at times (stool and urine) - hold bowel care Pain: denies pain Skin: small ulcer/tear buttock - mepilex removed and Calazime applied. Mobility: sling to chair, R. LE NWB - per pt he hasn't been walking in 2 weeks CIWA - pt reports about 6 beers daily, scoring low Next Hep level tmrw AM Plan for OR next week to finalize repair on R ankle *Pt needs daily weights now, but we have been out of bed slings for about 24hrs, bed weight done overnight but seems inaccurate - despite bed being zeroed. Try to use Lift scale today ? lan of Care - Christina Rhoades MSW - 06/03/2020 5:15 PM PDTReferral Source: [facility] for [facility] Consult: Alcohol d ependence - Brief intervention Assessment: The patient was given the AUDIT alcohol screening form(s) today and the score(s ) placed the patient into the harmful zone(s) use. We did not pursue this further because th e patient expressed an unwillingness to do so. SW visited Pt in his room. Pt reports he drinks 6 beers per day. Pt said his drinking is no t a problem and doesn't have a plan to stop drinking at this time. Said he can stop drinking whenever. Pt stated his PCP advised him to stop drinking. When SW asked reason PCP advised him to stop drinking, Pt became upset and asked SW to stop the assessment. Plan: SW placed substance use resources in Pt's AVS. MJ Bustamante, [facility] Evening/Weekend Social Work Pager: [phone] lan of Care - Shruthi Tanner LCSW - 06/03/2020 3:55 PM PDTReason for referral: SBIRT Referral source: [facility] SW consult referral Assessment/Intervention: SW acknowledged Epic SW consult referral for SBIRT. Per chart review, pt drinks 6 beers woody ly. SW attempted multiple times to reach pt by phone (this personal lines underwriter is working remotely today) but pt's phone kept ringing busy each time. Plan (including collaboration with other disciplines): SW handing off to Evening SW to complete in person if able to, otherwise this personal lines underwriter will r e-attempt tomorrow. Shruthi Peterson WINNIE Float Quarter Inspector Pager [phone] lan of Danny Downs, PT - 06/03/2020 2:17 PM PDTFormatting of this note might be different from t he original. 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 Brief Hospital Course: Diane An is a 70 yo man who was admitted on 06/01/2020: 1. Right ankle chronic pilon fracture dislocation 2. Charcot Right ankle Procedure: 1. Insertion of right calcaneal pin 2. Dynamic stress examination of right foot and ankle 3. Closed treatment of right pilon fracture 4. Removal of right calcaneal pin Indication for Physical Therapy Evaluation: concerns for impaired mobility to aid in disch planning Relevant Precautions: RLE NWB Past Medical History: Diagnosis Date Atrial fibrillation (HCC) Neuropathy History reviewed. No pertinent past surgical history. Present at bedside other than patient and physical therapist: -- Subjective: feels like an invalid, [facility] an excellent facility. He expresses that he does not want to use a wheelchair, he wants to be able to walk, he knows there are further surgical options that he may need t o look into to get back up and walking. Living Environment: lives alone in an apt, he must ascend 13 steps to enter his apt, hopefu lly, he'll be able to relocate to an apt on the first floor, but due to COVID issues, he is having a difficult time getting things moved into that apt Prior level of function: for the past 8 days he has been stuck in his recliner, not able to stand at all, toileting has been happening in the recliner and someone has to clean him up, Prior to that he was home bound, but able to walk short distances with front wheeled walke r. He has a cook coming in daily to cook him dinner, health aide coming in 2 days/week adan ting with assisting him with self care, cleaning, errands, and a cleaning lady, unclear how often Equipment: front wheeled walker Patient / Family Goal: get better Communication: Mauritian Barriers: None Pain: no reports of pain with mobility Cognitive Screen: Level of alertness: awake Orientation: Person, place, situation Quality of responses: Appropriate Command following: within functional limits Judgment / safety awareness: Impaired, decreased insight to severity and chronicity of mo bility deficits Physical Assessment: ROM: Bilateral upper extremity active range of motion is within functional limits with mo bility for rolling in bed. Active assist range of motion at bilateral lower extremity is wit hin functional limits at hips and knees Strength: Minimal participation, bilateral hip/knee flex/ext ~2/5, bilateral upper extrem ity at least 3/5 Edema: none noted Skin Integrity: Incision covered at right ankle, left heel with would mepilex rolling off revealing wound, RN is aware. Skin breakdown along sacrum and lower back Gross Motor: Impaired, difficulty coordinating UE/LE to assist with mobility, as well, de creased strength also limiting Balance: Not able to sit without back support today, Functional Mobility and Gait: Rolling supine to side lying maximal assist x 2 supine to sit dependent Sit to stand Not assessed Gait Not assessed Outcome Measure: 1. [facility] BASIC MOBILITY Difficulty turning over in bed 2 - Alot - Maximum/Moderate Assistance Difficulty sitting/standing from chair w/ arms 1 - Unable to do/total assistance - Total De pendent Assist Difficulty moving from supine to sitting on edge of bed 1 - Unable to do/total assistance - Total/ Dependent Assist Help needed moving from /to chair/wheelchair 1 - Unable to do/total assistance - total/Dep endent Assist Help needed walking in hospital room 1 - Unable to do/total assistance - Total/Dependent As sist Help needed climbing 3-5 steps w/railing 1 - Unable to do/total assistance - Total/Dependen t Assist [facility] Basic Mobility Total Score 7 Interpretation of [facility] Short Form - Basic Mobility: Predicts discharge post hospitalization ([facility] raw score: 6-24) Home = 20.1 Home with home care = 17.9 [facility]DC facility = 13.6 Inpatient rehabilitation facility = 13.6 senior living care = 11.5 Vivienne Parra S. The use of functional outcome measure in acute care to guide discharg e recommendations. J Acute Well Control Instructor. 2012;3(3):248 Pt Education/Treatment: (1440 to 1511) S: Thinks he needs to have a BM, it comes on quickly, of late he has been, unfortunately, h aving BMs in a recliner O: PT assists with maximal assist to dependent roll, pt has had BM, diarrhea PT and RN roll pt to right and left with maximal assist x 1-2 people, verbal cues for pt to reach cross body and pull on railing, in side lying pt requires moderate assist to maximal assist to maintain side lying, he is not able to maintain position with either LE. Seated sl ing placed under pt, crossed leg straps instead of using dignity strap for his comfort, depe ndent to recliner, maximal assist to dependent to reposition in recliner, he is not able to depress through bilateral upper extremity to clear buttocks and shift hips. A: Significantly impaired mobility. P: therapeutic exercises, mobility, progress to mobility to edge of bed as appropriate Time in: 1414 Time out: 1511 Patient was seen for direct one on one skilled physical therapy which included 31 minutes o f therapeutic exercises. Ended session: At end of treatment pt seated in recliner bilateral lower extremity elevated , with call campo at side and RN updated. ASSESSMENT: Mr. An is on 9K after surgical intervention at his RIGHT ankle, for whi ch he is now NWB. Of note, last September 2019, he was admitted to [facility] for management of a 3 year old LEFT ankle fusion with exposed hardware, treated surgically with a four-compartmen t fasciotomy, debridement, removal of hardware, followed by repeat debridement and fasciotom y closure, on vancomycin for MRSA SSTI/OM. He spent extended time at a SNF and was able to p rogress to home. Given his current RIGHT ankle impairments, deconditioning while recliner delilah und at home, as well as the wound on his LEFT heel, his mobility progression will be challen ging. This patient has good rehabilitation potential to achieve stated goals (see Care Plan for goals) and requires continued rehabilitation services, given the patient's treatment is at a level of complexity or sophistication requiring the skills of a therapist, specifically pro dotty therapeutic exercises to improve his strength and progress his mobility as tolerated. Interpretation of [facility] Short Form - Basic Mobility: CMS Modifier (G-Code) Score (in points) % of Functional Impairment, Limitation, or Restrict ion CN 6 100% impaired, limited, restricted CM 7-9 At least 80%, but less than 100% impaired, limited, or restricted CL 10-14 At least 60%, but less than 80% impaired, limited, or restricted CK 15-19 At least 40%, but less than 60% impaired, limited, or restricted CJ 20-22 At least 20%, but less than 40% impaired, limited, or restricted CI 23 At least 1%, but less than 20% impaired, limited, or restricted CH 24 0% impaired, limited, or restricted *This score not officially observed but is implied based on other components of patient's m obility and may be an underestimate Activity Plan: Nursing to re-assess per shift as needed. - Lights on and curtains open during day hours. - Up to chair 3x/day Discharge Recommendations: 24 hour skilled care Complexity: high Diane's knowledge of disease process: Fair. The patient requires services that can be safely and effectively performed only by a quali fied therapist to address the aforementioned and highlighted problems and goals. Goals discussed and agreed upon with Diane. PLAN: Therapeutic exercises, precaution education, progress to mobility as appropriate. Th e skills of this therapist are necessary to safely and effectively furnish a recognized ther apy service whose goal is improvement of an impairment or functional limitation. Frequency: 4x/wk Duration: 1 week Goals to be met in one week: Independent with recall and adherence to NWB precautions. Independent with bilateral upper extremity and bilateral lower extremity therapeutic exerci ses. Supine to side lying left/right independently with bed rail. Maintains side lying independently using bed rail for support. Patient's mobility and activity recommendations communicated to RN verbally for handoff com munication. The above plan of care and goals were developed and reviewed with the patient. Should this patient discharge from the hospital prior to the next physical therapy treatmen t, this note shall serve as the discharge summary. Danny Collier PT, DPT Pager: [phone] andoff - Mickey Bains RN - 06/03/2020 2:15 PM PDTNursing Handoff Patient Daily Goal: "get up to chair and get to moving" (06/03/20 0844) [facility] IP NURSE HANDOFF: Cespedes hospital course events: 06/01 ED Admit/Hx tx, s/p fall - R. Ankle fx, severe neuropathy 06/02: R. Calcaneal pin. L ankle reduction. R. femoral dvt - Heparin drip started SAFETY Patient/Family Target: Diane will not have worsening Blood clot. Progress to Target: No Change As evidenced by: Diane has a heparin gtt running to help treat Femoral blood clot. Q 6hr Heparin checks. Is not therapeutic yet. Increased rate and gave bolus with check at 1100. Next check due at 17 00. COMFORT/ANXIETY/BEHAVIOR Patient/Family Target: Diane will have good pain control to allow for participation in ADL's with Nursing/PT/OT. Progress to Target: Improving As evidenced by: Diane has had minimal to no pain per his report. Diane tommie not like to take Narcs, stating that he does not like to not be in control Or the way they make him feel. -has scheduled Tylenol and states that this seems to work pretty good. HEALTH PROMOTION Patient/Family Target: Pt will have no further skin breakdown Progress to Target: No Change As evidenced by: Encouraging pt to turn Q2-4, pt able to turn well in bed. Recommend an Air mattress today .-ordered this afternoon. Awaiting its arrival. This RN ordered Calazime for Skin tear on Bu ttocks. Also a Wound consult to be placed by MD for Left Heel Pressure Ulcer patient admitte d with. Mepilex placed to help protect until consult happens. NURSING ASSESSMENT & RECOMMENDATIONS FORWARD Nursing Assessment of Patient Stability Risk: Moderately unstable Recommendations Forward: GI: Reg : voids, incontinent overnight. Had incontinence of stool this afternoon (thank you José Miguel) Pain: min pain Skin: small ulcer/tear buttock - mepilex removed and Calazime applied. -ordered air mattress today Mobility: sling to chair, R. LE NWB - per pt he hasn't been walking in 2 weeks CIWA - pt reports about 6 beers daily, scoring low Next hep level is by 1700 andoff - Radha Serrano RN - 06/03/2020 8:10 AM PDTNursing Handoff Patient Daily Goal: to eat tonight (06/02/20 1611) [facility] IP NURSE HANDOFF: Cespedes hospital course events: 06/01 ED Admit/Hx tx, s/p fall - R. Ankle fx, severe neuropathy 06/02: R. Calcaneal pin. L ankle reduction. R. femoral dvt - Heparin drip started HEALTH PROMOTION Patient/Family Target: Pt will have no further skin breakdown Progress to Target: Improving As evidenced by: Encouraging pt to turn Q2-4, pt able to turn well in bed. Recommend an Air mattress today NURSING ASSESSMENT & RECOMMENDATIONS FORWARD Nursing Assessment of Patient Stability Risk: Moderately unstable Recommendations Forward: GI: Reg : voids, incontinent overnight Pain: denies pain Skin: small ulcer/tear buttock - mepilex in place -rec air mattress today Mobility: BedrestPennie NWB - per pt he hasn't been walking in 2 weeks? CIWA - pt reports about 6 beers daily Next hep level is by 0830 andoff - Chris Bteh RN - 06/02/2020 3:08 PM PDTMeets Phase I Discharge Criteria (Stable For Transfer): Major deviations/events or pertinent findings of dennis-operative stay: stable and awake in p acu. Denying pain. HR 60's-70's-A fib,BP 120's-130's/50's RA sat mid 90's. Last void pre op @ 1245 PIV x2 Anticipated post-op needs/devices/follow up: pain control * No Diagnosis Codes entered * Surgical Procedure Planned - Actual Procedure Performed: Procedure(s): placement of calcaneal pin, stress exam under anesthesia right ankle Anesthesia: General Length of procedure: In Room/Out of Room: 1 Hr 17 Min 0 Sec Surgeon(s) and Role: * Malik Mcmillan MD - Primary OR positioning comments: Neuro: POSS Sedation Level: 2 Last pain medication given: Pain medication totals: see mar Additional pain medication information: none Functional Epidural: N/A NUCLEAR MEDICINE OFFICER: N/A Respiratory: RR: 17 , O2 Sat: 97 % , O2 Delivery: None (room air) Breath Sounds: WDL BEBE: LLL: RUL: RLL: MARK No Comment: none Cardiac: BP: 124/48 HR: 76 GI: Nausea/Vomiting Status: No Signs/Symptoms: Interventions: Assessment: Comments: : Last void: preop Contact Name: no need to update anyone Contact Number: Family contacted: No Comment:n/a Belongings:none in pacu rief Op Note - Malik Watkins MD - 06/02/2020 2:14 PM PDTFormatting of this note might be different from [place] original. Date of procedure: 06/02/2020 Times Event Time In Procedure Start SunJun 02, 2020 1356 Location: [facility] Surgeon(s) and Role: * Malik Mcmillan MD - Primary Anesthesiologist: Anesthesiologist: Raimundo Hernandez MD BOX COVERER HAND: John Villarreal CRNA Staff: Supervisor Sewing Department: Ni Ramirez RN Scrub: ST Debbie Hydraulic Jack Adjuster: Varun Patel RT Grade Teacher: Alana Willard MD; Demetria Laureano MD Pre Op Dx: Right Ankle fracture Dislocation Post Op Dx: 1. Right ankle chronic pilon fracture dislocation 2. Charcot Right ankle Procedure: 1. Insertion of right calcaneal pin 2. Dynamic stress examination of right foot and ankle 3. Closed treatment of right pilon fracture 4. Removal of right calcaneal pin Anesthesia: General Estimated Blood Loss: 5ccs Specimens None Implants/Grafts None Complications: N/A Leander Mcmillan MD D Teaching Notes - Cedric Flores MD - 06/02/2020 2:59 AM PDTTeaching not needed. Please see separate provide r note. Cedric Flores MD p Note - Rolly Mcmillan MD - 06/02/2020 2:52 AM PDTDate of Service: 06/02/2020 Attending Surgeon:Malik Mcmillan MD Sas Architect(s):MD Alana Ferrera MD Preoperative Diagnosis: Right ankle fracture dislocation. Postoperative Diagnosis: 1.Right ankle chronic pilon fracture dislocation. 2.Charcot, right ankle. Procedure Performed: 1.Insertion of right calcaneal pin. 2.Dynamic stress examination of right foot and ankle. 3.Closed treatment of right pilon fracture. 4.Removal of right calcaneal pin. Anesthesia: General. Estimated Blood Loss: 5 cc. Intravenous Fluids: Please see anesthesia record. Urine Output: Please see anesthesia record. Specimens: None. Drains: None. Implant: None. Findings: 1.Lower extremity injury of unknown, but prolonged, chronicity. 2.Fracture dislocation is fixed in shape and position, would require extensive deep operati ve debridement to realign lower extremity. 3.Calcaneal pin removed prior to placement of tibial pins in order to not risk infectious v suzanne to proximal tibia, possibly complicating future amputation efforts by necessitating a higher level of amputation. Complications: None immediately apparent. Indications: Diane An is a 70-year-old male. He has been taken care by my partner, who has been nursing him through a very terrible left ankle situation, ultimately resulting in a failed hindfoot fusion nail and conversion to an antibiotic nail and prolonged antibiot ic situation. He came to the emergency department last night reporting subacute injury less than 2 weeks ago where he had been unable to bear weight. There was a closed reduction att empt in the emergency department last night, but really with minimal sedation, so the plan w as to put him on for closed reduction and either internal or external fixation today. I had a discussion with Diane in the preop setting that we are likely just going to frame him and not risk definitive fixation of his leg due to a giant ulcer on his heel, that I am concerne d placement of a hindfoot nail would ultimately result in opening of that chronic eschar. Diane understands that we are just going to try to temporize his leg today, and we will proc eed. Procedure In Detail: Diane was brought back to room 10. General endotracheal anesthesia wa s induced. He was transferred to his operative table, and the drapes were put up. A time-o ut was performed in accordance with protocol, confirming the delivery of preoperative antibi otics, and the case was begun. We began by attempting a manual-based reduction. His tibia did not move. We took a true lateral of the foot rather than a lateral of the tibia to find that it appeared that he had a significant amount of callus superiorly above his remnant of his anterior tibia that had been unavailable to us on prior radiographic views as the diffe rence between his lateral of the tibia and the lateral of the foot is approximately a ____ angle of 35 to 40 degrees. It does appear likely that the reason he has this losaft-gb-raxsxfbz scar is likely because he has been walking on it. At this point in time, we made the decision to place a transcalcaneal pin, which we inserte d on a perfect lateral of the hindfoot. Once in place, we took a confirmatory fluoroscopy s hot to confirm that it was bicortical to the bone. We then advanced to attempting aggressiv e longitudinal traction under complete relaxation. We were able to actuate no change in the position of his ankle. As such, we decided that he was not going to be a candidate for the procedure we had indicated him for. I think Diane is going to need either an extensive operative debridement and release in orde r to convert to a hindfoot nail, or he is going to require an amputation. 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 His lower extremity salvage plan will n eed to be linked between the 2 sides. We decided to wake Diane up, which we did so after rem oving the calcaneal pin and placing a bulky Doss dressing and splint on his lower extremity . The case was then ended. All counts were correct, and I was present for all portions of the case. Diane was successfully extubated and wheeled to the PACU in stable condition witho ut incident. Future Plans: We are going to have a discussion with Dr. Purcell and decide our collective next course of action. Malik Mcmillan MD ZMW/ARCHIEL /[id number] signed by Malik Mcmillan MD at 06/04/2020 8:29 AM [facility]THen[facility] - [facility] Ojeda - 06/01/2020 9:53 PM PDTMedic 5 BP 100/50 HR 88 o2 sat 98% on RA eta 10 min doc umented in this encounter Plan of Treatment + +---------+--------+ + + | Name | Type | Priori | Associated Diagnoses | Date/Time | | | | ty | | | + +---------+--------+ + + | X-RAY FLUOROSCOPY | Imaging | Urgent | | 06/02/2020 3:07 AM | | <=1 HOUR | | | | PDT | + +---------+--------+ + + | X-RAY FLUOROSCOPY IN | Imaging | Urgent | | 06/02/2020 2:19 PM | | OR > 1 HOUR | | | | PDT | + +---------+--------+ + + | X-RAY FLUOROSCOPY IN | Imaging | Urgent | | 06/08/2020 10:28 AM | | OR > 1 HOUR | | | | PDT | + +---------+--------+ + + + +---------+--------+ + + | Name | Type | Priori | Associated Diagnoses | Order Schedule | | | | ty | | | + +---------+--------+ + + | X-RAY FLUOROSCOPY | Imaging | Urgent | | One Time for 1 | | <=1 HOUR | | | | Occurrences starting | | | | | | 06/01/2020 until | | | | | | 06/01/2020 | + +---------+--------+ + + | X-RAY FLUOROSCOPY IN | Imaging | Urgent | | One Time for 1 | | OR > 1 HOUR | | | | Occurrences starting | | | | | | 06/02/2020 until | | | | | | 06/02/2020 | + +---------+--------+ + + | X-RAY FLUOROSCOPY IN | Imaging | Urgent | | One Time for 1 | | OR > 1 HOUR | | | | Occurrences starting | | | | | | 06/08/2020 until | | | | | | 06/08/2020 | + +---------+--------+ + + documented as of this encounter Procedures + +--------+ + + + | Procedure Name | Priori | Date/Time | Associated Diagnosis | Comments | | | ty | | | | + +--------+ + + + | CBC (HEMOGRAM) ONLY | Urgent | 06/11/2020 | | Results for this | | | | 6:14 AM | | procedure are in the | | | | PDT | | results section. | + +--------+ + + + | BASIC METABOLIC SET | Routin | 06/11/2020 | | Results for this | | (NA, K, CL, TCO2, | e | 6:14 AM | | procedure are in the | | BUN, CR, GLU, CA) | | PDT | | results section. | + +--------+ + + + | CBC ONLY | Urgent | 06/11/2020 | | Results for this | | | | 6:14 AM | | procedure are in the | | | | PDT | | results section. | + +--------+ + + + | COVID-19 | Urgent | 06/10/2020 | | Results for this | | | | 1:02 PM | | procedure are in the | | | | PDT | | results section. | + +--------+ + + + | CBC (HEMOGRAM) ONLY | Urgent | 06/10/2020 | | Results for this | | | | 5:51 AM | | procedure are in the | | | | PDT | | results section. | + +--------+ + + + | CBC ONLY | Urgent | 06/10/2020 | | Results for this | | | | 5:51 AM | | procedure are in the | | | | PDT | | results section. | + +--------+ + + + | CBC (HEMOGRAM) ONLY | Urgent | 06/09/2020 | | Results for this | | | | 3:25 AM | | procedure are in the | | | | PDT | | results section. | + +--------+ + + + | HB-LAB | Urgent | 06/09/2020 | | Results for this | | HEPARIN,EITHER | | 3:25 AM | | procedure are in the | | STD/LMW | | PDT | | results section. | + +--------+ + + + | CBC ONLY | Urgent | 06/09/2020 | | Results for this | | | | 3:25 AM | | procedure are in the | | | | PDT | | results section. | + +--------+ + + + | PROCEDURE NOTE | Routin | 06/08/2020 | | Results for this | | | e | 3:44 PM | | procedure are in the | | | | PDT | | results section. | + +--------+ + + + | CAPILLARY BLOOD | Routin | 06/08/2020 | Closed | Results for this | | GLUCOSE (NO CHG), | e | 11:08 AM | trimalleolar | procedure are in the | | POC | | PDT | fracture of right | results section. | | | | | ankle, initial | | | | | | encounter | | + +--------+ + + + | X-RAY ANKLE 2 VIEWS | Urgent | 06/08/2020 | | Results for this | | RIGHT | | 10:30 AM | | procedure are in the | | | | PDT | | results section. | + +--------+ + + + | PROCEDURE NOTE | Routin | 06/08/2020 | | Results for this | | | e | 9:09 AM | | procedure are in the | | | | PDT | | results section. | + +--------+ + + + | HINDFOOT NAIL FUSION | | 06/08/2020 | RIGHT CHARCOT | | | | | 7:37 AM | ANKLE | | | | | PDT | | | + +--------+ + + + | CBC (HEMOGRAM) ONLY | Urgent | 06/08/2020 | | Results for this | | | | 6:30 AM | | procedure are in the | | | | PDT | | results section. | + +--------+ + + + | HB-LAB | Urgent | 06/08/2020 | | Results for this | | HEPARIN,EITHER | | 6:30 AM | | procedure are in the | | STD/LMW | | PDT | | results section. | + +--------+ + + + | BASIC METABOLIC SET | Routin | 06/08/2020 | | Results for this | | (NA, K, CL, TCO2, | e | 6:30 AM | | procedure are in the | | BUN, CR, GLU, CA) | | PDT | | results section. | + +--------+ + + + | C-REACTIVE PROTEIN | Routin | 06/08/2020 | | Results for this | | | e | 6:30 AM | | procedure are in the | | | | PDT | | results section. | + +--------+ + + + | CBC ONLY | Urgent | 06/08/2020 | | Results for this | | | | 6:30 AM | | procedure are in the | | | | PDT | | results section. | + +--------+ + + + | ANTIBODY SCREEN | Routin | 06/08/2020 | | Results for this | | | e | 6:30 AM | | procedure are in the | | | | PDT | | results section. | + +--------+ + + + | TYPE AND SCREEN | Routin | 06/08/2020 | | Results for this | | | e | 6:30 AM | | procedure are in the | | | | PDT | | results section. | + +--------+ + + + | ABO & RH TYPE | Routin | 06/08/2020 | | Results for this | | | e | 6:30 AM | | procedure are in the | | | | PDT | | results section. | + +--------+ + + + | CARDIOLOGY | | 06/08/2020 | | Results for this | | | | | | procedure are in the | | | | | | results section. | + +--------+ + + + | CBC (HEMOGRAM) ONLY | Urgent | 06/07/2020 | | Results for this | | | | 6:22 AM | | procedure are in the | | | | PDT | | results section. | + +--------+ + + + | HB-LAB | Urgent | 06/07/2020 | | Results for this | | HEPARIN,EITHER | | 6:22 AM | | procedure are in the | | STD/LMW | | PDT | | results section. | + +--------+ + + + | CBC ONLY | Urgent | 06/07/2020 | | Results for this | | | | 6:22 AM | | procedure are in the | | | | PDT | | results section. | + +--------+ + + + | COVID-19 | Urgent | 06/06/2020 | | Results for this | | | | 9:55 AM | | procedure are in the | | | | PDT | | results section. | + +--------+ + + + | CBC (HEMOGRAM) ONLY | Urgent | 06/06/2020 | | Results for this | | | | 6:12 AM | | procedure are in the | | | | PDT | | results section. | + +--------+ + + + | HB-LAB | Urgent | 06/06/2020 | | Results for this | | HEPARIN,EITHER | | 6:12 AM | | procedure are in the | | STD/LMW | | PDT | | results section. | + +--------+ + + + | BASIC METABOLIC SET | Routin | 06/06/2020 | | Results for this | | (NA, K, CL, TCO2, | e | 6:12 AM | | procedure are in the | | BUN, CR, GLU, CA) | | PDT | | results section. | + +--------+ + + + | CBC ONLY | Urgent | 06/06/2020 | | Results for this | | | | 6:12 AM | | procedure are in the | | | | PDT | | results section. | + +--------+ + + + | DIGOXIN, PLASMA | Routin | 06/06/2020 | | Results for this | | | e | 6:12 AM | | procedure are in the | | | | PDT | | results section. | + +--------+ + + + | CBC (HEMOGRAM) ONLY | Urgent | 06/05/2020 | | Results for this | | | | 6:21 AM | | procedure are in the | | | | PDT | | results section. | + +--------+ + + + | HB-LAB | Urgent | 06/05/2020 | | Results for this | | HEPARIN,EITHER | | 6:21 AM | | procedure are in the | | STD/LMW | | PDT | | results section. | + +--------+ + + + | CBC ONLY | Urgent | 06/05/2020 | | Results for this | | | | 6:21 AM | | procedure are in the | | | | PDT | | results section. | + +--------+ + + + | HB-LAB | Urgent | 06/04/2020 | | Results for this | | HEPARIN,EITHER | | 5:22 AM | | procedure are in the | | STD/LMW | | PDT | | results section. | + +--------+ + + + | HEPATITIS B SURFACE | Routin | 06/04/2020 | | Results for this | | AG W/REFLEX IF | e | 5:00 AM | | procedure are in the | | INDICATED | | PDT | | results section. | + +--------+ + + + | HEPATITIS B SURFACE | Routin | 06/04/2020 | | Results for this | | AB QUAL, SERUM | e | 5:00 AM | | procedure are in the | | | | PDT | | results section. | + +--------+ + + + | HEPATITIS B CORE AB, | Routin | 06/04/2020 | | Results for this | | SERUM | e | 5:00 AM | | procedure are in the | | | | PDT | | results section. | + +--------+ + + + | HEPATITIS C VIRUS | Routin | 06/04/2020 | | Results for this | | W/CONFIRMATION | e | 5:00 AM | | procedure are in the | | | | PDT | | results section. | + +--------+ + + + | CBC (HEMOGRAM) ONLY | Urgent | 06/04/2020 | | Results for this | | | | 1:07 AM | | procedure are in the | | | | PDT | | results section. | + +--------+ + + + | CBC ONLY | Urgent | 06/04/2020 | | Results for this | | | | 1:07 AM | | procedure are in the | | | | PDT | | results section. | + +--------+ + + + | HB-LAB | Urgent | 06/03/2020 | | Results for this | | HEPARIN,EITHER | | 10:19 PM | | procedure are in the | | STD/LMW | | PDT | | results section. | + +--------+ + + + | HB-LAB | Urgent | 06/03/2020 | | Results for this | | HEPARIN,EITHER | | 4:23 PM | | procedure are in the | | STD/LMW | | PDT | | results section. | + +--------+ + + + | HB-LAB | Urgent | 06/03/2020 | | Results for this | | HEPARIN,EITHER | | 10:52 AM | | procedure are in the | | STD/LMW | | PDT | | results section. | + +--------+ + + + | HB-LAB | Urgent | 06/03/2020 | | Results for this | | HEPARIN,EITHER | | 1:41 AM | | procedure are in the | | STD/LMW | | PDT | | results section. | + +--------+ + + + | CBC (HEMOGRAM) ONLY | Urgent | 06/03/2020 | | Results for this | | | | 1:40 AM | | procedure are in the | | | | PDT | | results section. | + +--------+ + + + | BASIC METABOLIC SET | Routin | 06/03/2020 | | Results for this | | (NA, K, CL, TCO2, | e | 1:40 AM | | procedure are in the | | BUN, CR, GLU, CA) | | PDT | | results section. | + +--------+ + + + | HIV AB/AG SCREENING | Routin | 06/03/2020 | | Results for this | | W/REFLEX TO CONFIRM | e | 1:40 AM | | procedure are in the | | | | PDT | | results section. | + +--------+ + + + | CBC ONLY | Urgent | 06/03/2020 | | Results for this | | | | 1:40 AM | | procedure are in the | | | | PDT | | results section. | + +--------+ + + + | X-RAY ANKLE 3 VIEWS | Urgent | 06/02/2020 | | Results for this | | RIGHT | | 8:55 PM | | procedure are in the | | | | PDT | | results section. | + +--------+ + + + | HB-LAB | Urgent | 06/02/2020 | | Results for this | | HEPARIN,EITHER | | 6:41 PM | | procedure are in the | | STD/LMW | | PDT | | results section. | + +--------+ + + + | APTT (ACT. PART. | Urgent | 06/02/2020 | | Results for this | | THROMBO TIME) | | 6:41 PM | | procedure are in the | | | | PDT | | results section. | + +--------+ + + + | CAPILLARY BLOOD | Routin | 06/02/2020 | Closed | Results for this | | GLUCOSE (NO CHG), | e | 6:01 PM | trimalleolar | procedure are in the | | POC | | PDT | fracture of right | results section. | | | | | ankle, initial | | | | | | encounter | | + +--------+ + + + | TRANSTHORACIC | Routin | 06/02/2020 | | Results for this | | ECHOCARDIOGRAM, | e | 4:29 PM | | procedure are in the | | ADULT | | PDT | | results section. | + +--------+ + + + | CAPILLARY BLOOD | Routin | 06/02/2020 | Closed | Results for this | | GLUCOSE (NO CHG), | e | 2:37 PM | trimalleolar | procedure are in the | | POC | | PDT | fracture of right | results section. | | | | | ankle, initial | | | | | | encounter | | + +--------+ + + + | X-RAY ANKLE 3 VIEWS | Urgent | 06/02/2020 | | Results for this | | RIGHT | | 2:19 PM | | procedure are in the | | | | PDT | | results section. | + +--------+ + + + | ANKLE OPEN REDUCTION | | 06/02/2020 | Right Ankle | | | INTERNAL FIXATION | | 1:12 PM | fracture Dislocation | | | | | PDT | | | + +--------+ + + + | VASC LAB VENOUS | Urgent | 06/02/2020 | | Results for this | | DUPLEX LOWER | | 11:10 AM | | procedure are in the | | EXTREMITY BILAT COMP | | PDT | | results section. | + +--------+ + + + | CULTURE, BLOOD BACTI | Urgent | 06/02/2020 | | Results for this | | & YEAST [facility] | | 6:29 AM | | procedure are in the | | | | PDT | | results section. | + +--------+ + + + | TSH W/REFLEX TO FREE | Urgent | 06/02/2020 | | Results for this | | T4(IF ABNORMAL) | | 6:29 AM | | procedure are in the | | | | PDT | | results section. | + +--------+ + + + | HOMOCYSTEINE TOTAL, | Routin | 06/02/2020 | | Results for this | | PLASMA | e | 6:29 AM | | procedure are in the | | | | PDT | | results section. | + +--------+ + + + | METHYLMALONIC ACID, | Routin | 06/02/2020 | | Results for this | | SERUM | e | 6:29 AM | | procedure are in the | | | | PDT | | results section. | + +--------+ + + + | CULTURE, BLOOD BACTI | Urgent | 06/02/2020 | | Results for this | | & YEAST | | 6:29 AM | | procedure are in the | | | | PDT | | results section. | + +--------+ + + + | D-DIMER, (PE OR DIC) | Routin | 06/02/2020 | | Results for this | | | e | 6:29 AM | | procedure are in the | | | | PDT | | results section. | + +--------+ + + + | DIGOXIN, PLASMA | Routin | 06/02/2020 | | Results for this | | | e | 6:29 AM | | procedure are in the | | | | PDT | | results section. | + +--------+ + + + | VITAMIN B-12 | Routin | 06/02/2020 | | Results for this | | | e | 6:29 AM | | procedure are in the | | | | PDT | | results section. | + +--------+ + + + | CULTURE, BLOOD BACTI | Urgent | 06/02/2020 | | Results for this | | & YEAST [facility] | | 6:28 AM | | procedure are in the | | | | PDT | | results section. | + +--------+ + + + | CULTURE, BLOOD BACTI | Urgent | 06/02/2020 | | Results for this | | & YEAST | | 6:28 AM | | procedure are in the | | | | PDT | | results section. | + +--------+ + + + | COVID-19, RAPID PCR | Urgent | 06/02/2020 | | Results for this | | | | 3:10 AM | | procedure are in the | | | | PDT | | results section. | + +--------+ + + + | NT-PRO BNP | Urgent | 06/02/2020 | | Results for this | | | | 3:10 AM | | procedure are in the | | | | PDT | | results section. | + +--------+ + + + | TROPONIN I, PLASMA | Urgent | 06/02/2020 | | Results for this | | | | 3:10 AM | | procedure are in the | | | | PDT | | results section. | + +--------+ + + + | C-REACTIVE PROTEIN | Urgent | 06/02/2020 | | Results for this | | | | 3:10 AM | | procedure are in the | | | | PDT | | results section. | + +--------+ + + + | SEDIMENTATION RATE | Urgent | 06/02/2020 | | Results for this | | | | 3:10 AM | | procedure are in the | | | | PDT | | results section. | + +--------+ + + + | HEMOGLOBIN A1C, | Urgent | 06/02/2020 | | Results for this | | BLOOD | | 3:10 AM | | procedure are in the | | | | PDT | | results section. | + +--------+ + + + | X-RAY ANKLE 3 VIEWS | Urgent | 06/02/2020 | | Results for this | | RIGHT | | 3:05 AM | | procedure are in the | | | | PDT | | results section. | + +--------+ + + + | X-RAY TIBIA & FIBULA | Urgent | 06/02/2020 | | Results for this | | 2 VIEWS RT | | 3:04 AM | | procedure are in the | | | | PDT | | results section. | + +--------+ + + + | CARDIOLOGY | | 06/02/2020 | | Results for this | | | | | | procedure are in the | | | | | | results section. | + +--------+ + + + | COVID-19 | Urgent | 06/01/2020 | | Results for this | | | | 11:10 PM | | procedure are in the | | | | PDT | | results section. | + +--------+ + + + | 12 LEAD ECG | Extrem | 06/01/2020 | | Results for this | | | e | 11:04 PM | | procedure are in the | | | Emerge | PDT | | results section. | | | ncy | | | | + +--------+ + + + | RAINBOW HOLD TUBE - | Urgent | 06/01/2020 | | | | BLUE TOP | | 10:37 PM | | | | | | PDT | | | + +--------+ + + + | CBC (HEMOGRAM) ONLY | Urgent | 06/01/2020 | | Results for this | | | | 10:37 PM | | procedure are in the | | | | PDT | | results section. | + +--------+ + + + | INR | Urgent | 06/01/2020 | | Results for this | | | | 10:37 PM | | procedure are in the | | | | PDT | | results section. | + +--------+ + + + | COMPLETE METABOLIC | Urgent | 06/01/2020 | | Results for this | | SET | | 10:37 PM | | procedure are in the | | (NA,K,CL,CO2,BUN,CRE | | PDT | | results section. | | AT,GLUC,CA,AST,ALT,B | | | | | | LUPE TOTAL,ALK | | | | | | PHOS,ALB,PROT TOTAL) | | | | | + +--------+ + + + | CBC ONLY | Urgent | 06/01/2020 | | Results for this | | | | 10:37 PM | | procedure are in the | | | | PDT | | results section. | + +--------+ + + + | ANTIBODY SCREEN | Urgent | 06/01/2020 | | Results for this | | | | 10:37 PM | | procedure are in the | | | | PDT | | results section. | + +--------+ + + + | BLOOD BANK HOLD TUBE | Urgent | 06/01/2020 | | Results for this | | - DON | | 10:37 PM | | procedure are in the | | | | PDT | | results section. | | T PROCESS | | | | | + +--------+ + + + | TYPE AND SCREEN | Urgent | 06/01/2020 | | Results for this | | | | 10:37 PM | | procedure are in the | | | | PDT | | results section. | + +--------+ + + + | ABO & RH TYPE | Urgent | 06/01/2020 | | Results for this | | | | 10:37 PM | | procedure are in the | | | | PDT | | results section. | + +--------+ + + + | ED INFORMATION | Routin | 06/01/2020 | | Results for this | | EXCHANGE | e | 10:14 PM | | procedure are in the | | | | PDT | | results section. | + +--------+ + + + documented in this encounter Results CBC (HEMOGRAM) ONLY (06/11/2020 6:14 AM PDT) + + + + + + | Component | Value | Ref Range | Performed | Pathologist | | | | | At | Signature | + + + + + + | WHITE CELL | 6.33 | 3.50 - 10.80 | [facility] | | | COUNT | | K/cu mm | LABORATORY | | | | | | SERVICES, | | | | | | CORE | | + + + + + + | RED CELL | 3.38 (L) | 4.50 - 6.00 | [facility] | | | COUNT | | M/cu mm | LABORATORY | | | | | | SERVICES, | | | | | | CORE | | + + + + + + | HEMOGLOBIN | 10.5 (L) | 13.5 - 17.5 | [facility] | | | | | g/dL | LABORATORY | | | | | | SERVICES, | | | | | | CORE | | + + + + + + | HEMATOCRIT | 32.4 (L) | 41.0 - 53.0 % | [facility] | | | | | | LABORATORY | | | | | | SERVICES, | | | | | | CORE | | + + + + + + | MCV | 95.9 | 80.0 - 100.0 fL | [facility] | | | | | | LABORATORY | | | | | | SERVICES, | | | | | | CORE | | + + + + + + | MCHC | 32.4 | 32.0 - 36.0 | [facility] | | | | | g/dL | LABORATORY | | | | | | SERVICES, | | | | | | CORE | | + + + + + + | RDW SD | 45.1 | 35.1 - 46.3 fL | [facility] | | | | | | LABORATORY | | | | | | SERVICES, | | | | | | CORE | | + + + + + + | PLATELET | 258 | 150 - 400 K/cu | [facility] | | | COUNT | | mm | LABORATORY | | | | | | SERVICES, | | | | | | CORE | | + + + + + + | MPV | 9.5 (L) | 9.7 - 12.3 fL | [facility] | | | | | | LABORATORY | | | | | | SERVICES, | | | | | | CORE | | + + + + + + | NRBC% | 0.0 | 0.0 - 0.3 % | [facility] | | | | | | LABORATORY | | | | | | SERVICES, | | | | | | CORE | | + + + + + + | NRBC# | 0.00 | 0.00 - 0.02 | [facility] | | | | | K/cu mm | LABORATORY | | | | | | SERVICES, | | | | | | CORE | | + + + + + + + + | Specimen | + + | Blood - Blood | | (substance) | + + + + + + + | Performing | Address | City/State/Zipcode | Phone Number | | Organization | | | | + + + + + | [facility] | [address] | [place] [address] | | | SERVICES, CORE | [address] | | | + + + + + BASIC METABOLIC SET (NA, K, CL, TCO2, BUN, CR, GLU, CA) (06/11/2020 6:14 AM PDT) + +---------+ + + + | Component | Value | Ref Range | Performed | Pathologist | | | | | At | Signature | + +---------+ + + + | GLUCOSE, | 111 (H) | 70 - 99 mg/dL | [facility] | | | PLASMA | | | LABORATORY | | | (LAB) | | | VJ, | | | | | | CORE | | + +---------+ + + + | BUN, PLASMA | 10 | 6 - 20 mg/dL | [facility] | | | (LAB) | | | LABORATORY | | | | | | SERVICES, | | | | | | CORE | | + +---------+ + + + | CREATININE | 1.07 | 0.70 - 1.30 | [facility] | | | PLASMA | | mg/dL | LABORATORY | | | (LAB) | | | SERVICES, | | | | | | CORE | | + +---------+ + + + | EGFR | >60 | >60 mL/min | [facility] | | | - | | | LABORATORY | | | BRITISH | | | SERVICES, | | | | | | CORE | | + +---------+ + + + | EGFR NON | >60 | >60 mL/min | [facility] | | | -FÉLIX | | | LABORATORY | | | RICAN | | | SERVICES, | | | | | | CORE | | + +---------+ + + + | SODIUM, | 136 | 136 - 145 | [facility] | | | PLASMA | | mmol/L | LABORATORY | | | (LAB) | | | SERVICES, | | | | | | CORE | | + +---------+ + + + | POTASSIUM, | 4.0 | 3.4 - 5.0 | [facility] | | | PLASMA | | mmol/L | LABORATORY | | | (LAB) | | | SERVICES, | | | | | | CORE | | + +---------+ + + + | CHLORIDE, | 106 | 97 - 108 mmol/L | [facility] | | | PLASMA | | | LABORATORY | | | (LAB) | | | SERVICES, | | | | | | CORE | | + +---------+ + + + | TOTAL CO2, | 25 | 21 - 32 mmol/L | [facility] | | | PLASMA | | | LABORATORY | | | (LAB) | | | SERVICES, | | | | | | CORE | | + +---------+ + + + | CALCIUM, | 8.6 | 8.6 - 10.2 | [facility] | | | PLASMA | | mg/dL | LABORATORY | | | (LAB) | | | SERVICES, | | | | | | CORE | | + +---------+ + + + | ANION GAP | 5 | 4 - 11 mmol/L | [facility] | | | | | | LABORATORY | | | | | | SERVICES, | | | | | | CORE | | + +---------+ + + + | POTASSIUM | No Hemo | | [facility] | | | CMNT | | | LABORATORY | | | | | | SERVICES, | | | | | | CORE | | + +---------+ + + + | BUN/CREATIN | 9 | 8 - 25 | [facility] | | | INE RATIO | | | LABORATORY | | | | | | SERVICES, | | | | | | CORE | | + +---------+ + + + + + | Specimen | + + | Blood - Blood | | (substance) | + + + + + | Narrative | Performed At | + + + | GFR is estimated using the MDRD equation recommended by the National | [facility] | | Kidney Disease Education Program. Estimated GFR Interpretive | LABORATORY | | Information: <60 mL/min/1.73 sq m Chronic Kidney | SERVICES, CORE | | Disease <15 mL/min/1.73 sq m Kidney Failure | | | Estimated GFR greater than 60 mL/min/1.73 sq m is of limited clinical | | | value. The MDRD equation is not valid in the following situations: | | | - Patients under 18 years of age - Severe malnutrition or obesity | | | - Vegetarian diet - Rapidly changing kidney function - Amputees, | | | paraplegics, or other muscle-wasting diseases | | + + + + + + + + | Performing | Address | City/State/Zipcode | Phone Number | | Organization | | | | + + + + + | [facility] | [address] | [place] [address] | | | SERVICES, CORE | [address] | | | + + + + + COVID-19, PCR (06/10/2020 1:02 PM PDT) + + + + + + | Component | Value | Ref Range | Performed | Pathologist | | | | | At | Signature | + + + + + + | COVID-19, | Not Detected | Not Detected | [facility] | | | PCR | | | MOLECULAR | | | | | | MICROBIOLIG | | | | | | Y LAB | | + + + + + + + + | Specimen | + + | Swab - Nasopharynx | + + + + + | Narrative | Performed At | + + + | Not Detected results do not preclude SARS-CoV-2 infection and should | [facility] | | not be used as the sole basis for treatment or other patient | MOLECULAR | | management decisions. Not Detected results must be combined with | MICROBIOLIGY | | clinical observations, patient history, and epidemiological | LAB | | information. Analyte specific reagents are used in many laboratory | | | tests necessary for standard medical care. This test was developed and | | | its performance characteristics determined by [employer]. It | | | has not been cleared or approved by the US Food and Drug | | | Administration (FDA). FDA does not require this test to go through | | | premarket FDA review. This test is used for clinical purposes. It | | | should not be regarded as investigational or for research. The | | | laboratory is certified under the Clinical Laboratory Improvement | | | Amendments (CLIA) as qualified to perform high complexity clinical | | | laboratory testing. | | + + + + + + + + | Performing | Address | City/State/Zipcode | Phone Number | | Organization | | | | + + + + + | [facility] | [address] | [place] [address] | | | MICROBIOLOGY LAB | [address] | | | + + + + + | [facility] | [address] | [place], [place] | | | MICROBIOLIGY LAB | [address] | [id number], [place] | | + + + + + CBC (HEMOGRAM) ONLY (06/10/2020 5:51 AM PDT) + + + + + + | Component | Value | Ref Range | Performed | Pathologist | | | | | At | Signature | + + + + + + | WHITE CELL | 5.91 | 3.50 - 10.80 | [facility] | | | COUNT | | K/cu mm | LABORATORY | | | | | | SERVICES, | | | | | | CORE | | + + + + + + | RED CELL | 3.07 (L) | 4.50 - 6.00 | [facility] | | | COUNT | | M/cu mm | LABORATORY | | | | | | SERVICES, | | | | | | CORE | | + + + + + + | HEMOGLOBIN | 9.6 (L) | 13.5 - 17.5 | [facility] | | | | | g/dL | LABORATORY | | | | | | SERVICES, | | | | | | CORE | | + + + + + + | HEMATOCRIT | 29.4 (L) | 41.0 - 53.0 % | [facility] | | | | | | LABORATORY | | | | | | SERVICES, | | | | | | CORE | | + + + + + + | MCV | 95.8 | 80.0 - 100.0 fL | [facility] | | | | | | LABORATORY | | | | | | SERVICES, | | | | | | CORE | | + + + + + + | MCHC | 32.7 | 32.0 - 36.0 | [facility] | | | | | g/dL | LABORATORY | | | | | | SERVICES, | | | | | | CORE | | + + + + + + | RDW SD | 46.4 (H) | 35.1 - 46.3 fL | [facility] | | | | | | LABORATORY | | | | | | SERVICES, | | | | | | CORE | | + + + + + + | PLATELET | 254 | 150 - 400 K/cu | [facility] | | | COUNT | | mm | LABORATORY | | | | | | SERVICES, | | | | | | CORE | | + + + + + + | MPV | 9.5 (L) | 9.7 - 12.3 fL | [facility] | | | | | | LABORATORY | | | | | | SERVICES, | | | | | | CORE | | + + + + + + | NRBC% | 0.0 | 0.0 - 0.3 % | [facility] | | | | | | LABORATORY | | | | | | SERVICES, | | | | | | CORE | | + + + + + + | NRBC# | 0.00 | 0.00 - 0.02 | [facility] | | | | | K/cu mm | LABORATORY | | | | | | SERVICES, | | | | | | CORE | | + + + + + + + + | Specimen | + + | Blood - Blood | | (substance) | + + + + + + + | Performing | Address | City/State/Zipcode | Phone Number | | Organization | | | | + + + + + | [facility] | [address] | [place] [address] | | | SERVICES, CORE | [address] | | | + + + + + CBC (HEMOGRAM) ONLY (06/09/2020 3:25 AM PDT) + + + + + + | Component | Value | Ref Range | Performed | Pathologist | | | | | At | Signature | + + + + + + | WHITE CELL | 7.37 | 3.50 - 10.80 | [facility] | | | COUNT | | K/cu mm | LABORATORY | | | | | | SERVICES, | | | | | | CORE | | + + + + + + | RED CELL | 3.09 (L) | 4.50 - 6.00 | [facility] | | | COUNT | | M/cu mm | LABORATORY | | | | | | SERVICES, | | | | | | CORE | | + + + + + + | HEMOGLOBIN | 9.7 (L) | 13.5 - 17.5 | [facility] | | | | | g/dL | LABORATORY | | | | | | SERVICES, | | | | | | CORE | | + + + + + + | HEMATOCRIT | 30.1 (L) | 41.0 - 53.0 % | [facility] | | | | | | LABORATORY | | | | | | SERVICES, | | | | | | CORE | | + + + + + + | MCV | 97.4 | 80.0 - 100.0 fL | [facility] | | | | | | LABORATORY | | | | | | SERVICES, | | | | | | CORE | | + + + + + + | MCHC | 32.2 | 32.0 - 36.0 | [facility] | | | | | g/dL | LABORATORY | | | | | | SERVICES, | | | | | | CORE | | + + + + + + | RDW SD | 46.6 (H) | 35.1 - 46.3 fL | [facility] | | | | | | LABORATORY | | | | | | SERVICES, | | | | | | CORE | | + + + + + + | PLATELET | 229 | 150 - 400 K/cu | [facility] | | | COUNT | | mm | LABORATORY | | | | | | SERVICES, | | | | | | CORE | | + + + + + + | MPV | 9.2 (L) | 9.7 - 12.3 fL | [facility] | | | | | | LABORATORY | | | | | | SERVICES, | | | | | | CORE | | + + + + + + | NRBC% | 0.0 | 0.0 - 0.3 % | [facility] | | | | | | LABORATORY | | | | | | SERVICES, | | | | | | CORE | | + + + + + + | NRBC# | 0.00 | 0.00 - 0.02 | [facility] | | | | | K/cu mm | LABORATORY | | | | | | SERVICES, | | | | | | CORE | | + + + + + + + + | Specimen | + + | Blood - Blood | | (substance) | + + + + + + + | Performing | Address | City/State/Zipcode | Phone Number | | Organization | | | | + + + + + | [facility] | [address] | [place] [address] | | | SERVICES, CORE | [address] | | | + + + + + HEPARIN, EITHER STANDARD / LMW, BLOOD (06/09/2020 3:25 AM PDT) + +-------+ + + + | Component | Value | Ref Range | Performed | Pathologist | | | | | At | Signature | + +-------+ + + + | HEPARIN, | 0.35 | U/mL | [facility] | | | STD LMW | | | LABORATORY | | | | | | SERVICES, | | | | | | CORE | | + +-------+ + + + + + | Specimen | + + | Blood - Blood | | (substance) | + + + + + | Narrative | Performed At | + + + | Venous Disease Heparin Protocol Heparin level 6 hrs after every | [facility] | | heparin rate change; If heparin level within target range for 2 | LABORATORY | | consecutive results, recheck every AM. Heparin, Either STD/LMW - | SERVICES, CORE | | Therapeutic Ranges: Heparin, Unfractionated: 0.35 - 0.70 U/mL | | | Enoxaparin, LMWH: 0.70 - 1.20 U/mL Dalteparin, LMWH: | | | 0.70 - 1.20 U/mL Tinzaparin, LMWH: Therapeutic | | | range not established. | | | Preliminary studies suggest range | | | similar to dalteparin. Clinical | | | correlation required. Heparin levels may be unreliable for: | | | Total bilirubin >28.8 mg/dL | | | Triglycerides >690 mg/dL | | | or Moderate to Gross Hemolysis | | + + + + + + + + | Performing | Address | City/State/Zipcode | Phone Number | | Organization | | | | + + + + + | [facility] | [address] | [place] [address] | | | SERVICES, CORE | [address] | | | + + + + + PROCEDURE NOTE (06/08/2020 3:44 PM PDT)CAPILLARY BLOOD GLUCOSE (NO CHG), POC (06/08/2020 1 1:08 AM PDT) + +-------+ + + + | Component | Value | Ref Range | Performed | Pathologist | | | | | At | Signature | + +-------+ + + + | BLOOD | 97 | 70 - 99 mg/dL | [facility] - | | | GLUCOSE, | | | [facility] | | | POC | | | [facility] | | | | | | OF [facility] | | | | | | TESTS | | + +-------+ + + + + + | Specimen | + + | Blood | + + + + + + + | Performing | Address | City/State/Zipcode | Phone Number | | Organization | | | | + + + + + | [facility] | [address] | [place], [place] | | | [facility] | [address] | [address] | | | TESTS | | | | + + + + + X-RAY ANKLE 2 VIEWS RIGHT (06/08/2020 10:30 AM PDT) + + | Specimen | + + | | + + + + + | Narrative | Performed At | + + + | - At the time of the study, no professional interpretation was | [facility] | | requested. - | RADIOLOGY | + + + + +---------+ + + | Performing | Address | City/State/Zipcode | Phone Number | | Organization | | | | + +---------+ + + | [facility] | | | | + +---------+ + + PROCEDURE NOTE (06/08/2020 9:09 AM PDT)ANTIBODY SCREEN (06/08/2020 6:30 AM PDT) + + + + + + | Component | Value | Ref Range | Performed | Pathologist | | | | | At | Signature | + + + + + + | Antibody | Negative | | [facility] | | | Screen | | | LABORATORY | | | | | | SERVICES, | | | | | | TRANSFUSION | | | | | | MEDICINE | | + + + + + + + + | Specimen | + + | Blood - Blood | | (substance) | + + + + + + + | Performing | Address | City/State/Zipcode | Phone Number | | Organization | | | | + + + + + | [facility] | [address] | [place] [address] | | | SERVICES, | [address] | | | | TRANSFUSION MEDICINE | | | | + + + + + ABO & RH TYPE (06/08/2020 6:30 AM PDT) + + + + + + | Component | Value | Ref Range | Performed | Pathologist | | | | | At | Signature | + + + + + + | ABO Group | B | | [facility] | | | | | | LABORATORY | | | | | | SERVICES, | | | | | | TRANSFUSION | | | | | | MEDICINE | | + + + + + + | Rh Type | Positive | | [facility] | | | | | | LABORATORY | | | | | | SERVICES, | | | | | | TRANSFUSION | | | | | | MEDICINE | | + + + + + + + + | Specimen | + + | Blood - Blood | | (substance) | + + + + + + + | Performing | Address | City/State/Zipcode | Phone Number | | Organization | | | | + + + + + | [facility] | [address] | [place] [address] | | | SERVICES, | [address] | | | | TRANSFUSION MEDICINE | | | | + + + + + HEPARIN, EITHER STANDARD / LMW, BLOOD (06/08/2020 6:30 AM PDT) + +-------+ + + + | Component | Value | Ref Range | Performed | Pathologist | | | | | At | Signature | + +-------+ + + + | HEPARIN, | 0.60 | U/mL | [facility] | | | STD LMW | | | LABORATORY | | | | | | SERVICES, | | | | | | CORE | | + +-------+ + + + + + | Specimen | + + | Blood - Blood | | (substance) | + + + + + | Narrative | Performed At | + + + | Venous Disease Heparin Protocol Heparin level 6 hrs after every | [facility] | | heparin rate change; If heparin level within target range for 2 | LABORATORY | | consecutive results, recheck every AM. Heparin, Either STD/LMW - | SERVICES, CORE | | Therapeutic Ranges: Heparin, Unfractionated: 0.35 - 0.70 U/mL | | | Enoxaparin, LMWH: 0.70 - 1.20 U/mL Dalteparin, LMWH: | | | 0.70 - 1.20 U/mL Tinzaparin, LMWH: Therapeutic | | | range not established. | | | Preliminary studies suggest range | | | similar to dalteparin. Clinical | | | correlation required. Heparin levels may be unreliable for: | | | Total bilirubin >28.8 mg/dL | | | Triglycerides >690 mg/dL | | | or Moderate to Gross Hemolysis | | + + + + + + + + | Performing | Address | City/State/Zipcode | Phone Number | | Organization | | | | + + + + + | [facility] | [address] | [place] [address] | | | SERVICES, CORE | [address] | | | + + + + + CBC (HEMOGRAM) ONLY (06/08/2020 6:30 AM PDT) + + + + + + | Component | Value | Ref Range | Performed | Pathologist | | | | | At | Signature | + + + + + + | WHITE CELL | 6.62 | 3.50 - 10.80 | [facility] | | | COUNT | | K/cu mm | LABORATORY | | | | | | SERVICES, | | | | | | CORE | | + + + + + + | RED CELL | 3.98 (L) | 4.50 - 6.00 | [facility] | | | COUNT | | M/cu mm | LABORATORY | | | | | | SERVICES, | | | | | | CORE | | + + + + + + | HEMOGLOBIN | 12.5 (L) | 13.5 - 17.5 | [facility] | | | | | g/dL | LABORATORY | | | | | | SERVICES, | | | | | | CORE | | + + + + + + | HEMATOCRIT | 38.8 (L) | 41.0 - 53.0 % | [facility] | | | | | | LABORATORY | | | | | | SERVICES, | | | | | | CORE | | + + + + + + | MCV | 97.5 | 80.0 - 100.0 fL | [facility] | | | | | | LABORATORY | | | | | | SERVICES, | | | | | | CORE | | + + + + + + | MCHC | 32.2 | 32.0 - 36.0 | [facility] | | | | | g/dL | LABORATORY | | | | | | SERVICES, | | | | | | CORE | | + + + + + + | RDW SD | 47.3 (H) | 35.1 - 46.3 fL | [facility] | | | | | | LABORATORY | | | | | | SERVICES, | | | | | | CORE | | + + + + + + | PLATELET | 258 | 150 - 400 K/cu | [facility] | | | COUNT | | mm | LABORATORY | | | | | | SERVICES, | | | | | | CORE | | + + + + + + | MPV | 8.8 (L) | 9.7 - 12.3 fL | [facility] | | | | | | LABORATORY | | | | | | SERVICES, | | | | | | CORE | | + + + + + + | NRBC% | 0.0 | 0.0 - 0.3 % | [facility] | | | | | | LABORATORY | | | | | | SERVICES, | | | | | | CORE | | + + + + + + | NRBC# | 0.00 | 0.00 - 0.02 | [facility] | | | | | K/cu mm | LABORATORY | | | | | | SERVICES, | | | | | | CORE | | + + + + + + + + | Specimen | + + | Blood - Blood | | (substance) | + + + + + + + | Performing | Address | City/State/Zipcode | Phone Number | | Organization | | | | + + + + + | [facility] | [address] | [place] [address] | | | [place], [place] | [address] | | | + + + + + C-REACTIVE PROTEIN (06/08/2020 6:30 AM PDT) + + + + + + | Component | Value | Ref Range | Performed | Pathologist | | | | | At | Signature | + + + + + + | C-REACTIVE | 16.4 (H) | <10.0 mg/L | [facility] | | | PROTEIN | | | LABORATORY | | | | | | SERVICES, | | | | | | CORE | | + + + + + + + + | Specimen | + + | Blood - Blood | | (substance) | + + + + + + + | Performing | Address | City/State/Zipcode | Phone Number | | Organization | | | | + + + + + | [facility] | [address] | [place] [address] | | | SERVICES, CORE | [address] | | | + + + + + BASIC METABOLIC SET (NA, K, CL, TCO2, BUN, CR, GLU, CA) (06/08/2020 6:30 AM PDT) + +---------+ + + + | Component | Value | Ref Range | Performed | Pathologist | | | | | At | Signature | + +---------+ + + + | GLUCOSE, | 117 (H) | 70 - 99 mg/dL | [facility] | | | PLASMA | | | LABORATORY | | | (LAB) | | | SERVICES, | | | | | | CORE | | + +---------+ + + + | BUN, PLASMA | 12 | 6 - 20 mg/dL | [facility] | | | (LAB) | | | LABORATORY | | | | | | SERVICES, | | | | | | CORE | | + +---------+ + + + | CREATININE | 1.19 | 0.70 - 1.30 | [facility] | | | PLASMA | | mg/dL | LABORATORY | | | (LAB) | | | SERVICES, | | | | | | CORE | | + +---------+ + + + | EGFR | >60 | >60 mL/min | [facility] | | | - | | | LABORATORY | | | BRITISH | | | SERVICES, | | | | | | CORE | | + +---------+ + + + | EGFR NON | 60 (L) | >60 mL/min | [facility] | | | -FÉLIX | | | LABORATORY | | | RICAN | | | SERVICES, | | | | | | CORE | | + +---------+ + + + | SODIUM, | 137 | 136 - 145 | [facility] | | | PLASMA | | mmol/L | LABORATORY | | | (LAB) | | | SERVICES, | | | | | | CORE | | + +---------+ + + + | POTASSIUM, | 4.5 | 3.4 - 5.0 | [facility] | | | PLASMA | | mmol/L | LABORATORY | | | (LAB) | | | SERVICES, | | | | | | CORE | | + +---------+ + + + | CHLORIDE, | 104 | 97 - 108 mmol/L | [facility] | | | PLASMA | | | LABORATORY | | | (LAB) | | | SERVICES, | | | | | | CORE | | + +---------+ + + + | TOTAL CO2, | 30 | 21 - 32 mmol/L | [facility] | | | PLASMA | | | LABORATORY | | | (LAB) | | | SERVICES, | | | | | | CORE | | + +---------+ + + + | CALCIUM, | 8.7 | 8.6 - 10.2 | [facility] | | | PLASMA | | mg/dL | LABORATORY | | | (LAB) | | | SERVICES, | | | | | | CORE | | + +---------+ + + + | ANION GAP | 3 (L) | 4 - 11 mmol/L | [facility] | | | | | | LABORATORY | | | | | | SERVICES, | | | | | | CORE | | + +---------+ + + + | POTASSIUM | No Hemo | | [facility] | | | CMNT | | | LABORATORY | | | | | | SERVICES, | | | | | | CORE | | + +---------+ + + + | BUN/CREATIN | 10 | 8 - 25 | [facility] | | | INE RATIO | | | LABORATORY | | | | | | SERVICES, | | | | | | CORE | | + +---------+ + + + + + | Specimen | + + | Blood - Blood | | (substance) | + + + + + | Narrative | Performed At | + + + | GFR is estimated using the MDRD equation recommended by the National | [facility] | | Kidney Disease Education Program. Estimated GFR Interpretive | LABORATORY | | Information: <60 mL/min/1.73 sq m Chronic Kidney | SERVICES, CORE | | Disease <15 mL/min/1.73 sq m Kidney Failure | | | Estimated GFR greater than 60 mL/min/1.73 sq m is of limited clinical | | | value. The MDRD equation is not valid in the following situations: | | | - Patients under 18 years of age - Severe malnutrition or obesity | | | - Vegetarian diet - Rapidly changing kidney function - Amputees, | | | paraplegics, or other muscle-wasting diseases | | + + + + + + + + | Performing | Address | City/State/Zipcode | Phone Number | | Organization | | | | + + + + + | [facility] | [address] | [place] [address] | | | FERMÍN ZABALA | [address] | | | + + + + + CARDIOLOGY (06/08/2020) + + + | Narrative | Performed At | + + + | | | + + + HEPARIN, EITHER STANDARD / LMW, BLOOD (06/07/2020 6:22 AM PDT) + +-------+ + + + | Component | Value | Ref Range | Performed | Pathologist | | | | | At | Signature | + +-------+ + + + | HEPARIN, | 0.43 | U/mL | [facility] | | | STD LMW | | | LABORATORY | | | | | | SERVICES, | | | | | | CORE | | + +-------+ + + + + + | Specimen | + + | Blood - Blood | | (substance) | + + + + + | Narrative | Performed At | + + + | Venous Disease Heparin Protocol Heparin level 6 hrs after every | [facility] | | heparin rate change; If heparin level within target range for 2 | LABORATORY | | consecutive results, recheck every AM. Heparin, Either STD/LMW - | SERVICES, CORE | | Therapeutic Ranges: Heparin, Unfractionated: 0.35 - 0.70 U/mL | | | Enoxaparin, LMWH: 0.70 - 1.20 U/mL Dalteparin, LMWH: | | | 0.70 - 1.20 U/mL Tinzaparin, LMWH: Therapeutic | | | range not established. | | | Preliminary studies suggest range | | | similar to dalteparin. Clinical | | | correlation required. Heparin levels may be unreliable for: | | | Total bilirubin >28.8 mg/dL | | | Triglycerides >690 mg/dL | | | or Moderate to Gross Hemolysis | | + + + + + + + + | Performing | Address | City/State/Zipcode | Phone Number | | Organization | | | | + + + + + | [facility] | [address] | [place] [address] | | | SERVICES, [place] | [address] | | | + + + + + CBC (HEMOGRAM) ONLY (06/07/2020 6:22 AM PDT) + + + + + + | Component | Value | Ref Range | Performed | Pathologist | | | | | At | Signature | + + + + + + | WHITE CELL | 5.78 | 3.50 - 10.80 | [facility] | | | COUNT | | K/cu mm | LABORATORY | | | | | | SERVICES, | | | | | | CORE | | + + + + + + | RED CELL | 3.93 (L) | 4.50 - 6.00 | [facility] | | | COUNT | | M/cu mm | LABORATORY | | | | | | SERVICES, | | | | | | CORE | | + + + + + + | HEMOGLOBIN | 12.2 (L) | 13.5 - 17.5 | [facility] | | | | | g/dL | LABORATORY | | | | | | SERVICES, | | | | | | CORE | | + + + + + + | HEMATOCRIT | 37.9 (L) | 41.0 - 53.0 % | [facility] | | | | | | LABORATORY | | | | | | SERVICES, | | | | | | CORE | | + + + + + + | MCV | 96.4 | 80.0 - 100.0 fL | [facility] | | | | | | LABORATORY | | | | | | SERVICES, | | | | | | CORE | | + + + + + + | MCHC | 32.2 | 32.0 - 36.0 | [facility] | | | | | g/dL | LABORATORY | | | | | | SERVICES, | | | | | | CORE | | + + + + + + | RDW SD | 46.6 (H) | 35.1 - 46.3 fL | [facility] | | | | | | LABORATORY | | | | | | SERVICES, | | | | | | CORE | | + + + + + + | PLATELET | 281 | 150 - 400 K/cu | [facility] | | | COUNT | | mm | LABORATORY | | | | | | SERVICES, | | | | | | CORE | | + + + + + + | MPV | 8.7 (L) | 9.7 - 12.3 fL | [facility] | | | | | | LABORATORY | | | | | | SERVICES, | | | | | | CORE | | + + + + + + | NRBC% | 0.0 | 0.0 - 0.3 % | [facility] | | | | | | LABORATORY | | | | | | SERVICES, | | | | | | CORE | | + + + + + + | NRBC# | 0.00 | 0.00 - 0.02 | [facility] | | | | | K/cu mm | LABORATORY | | | | | | SERVICES, | | | | | | CORE | | + + + + + + + + | Specimen | + + | Blood - Blood | | (substance) | + + + + + + + | Performing | Address | City/State/Zipcode | Phone Number | | Organization | | | | + + + + + | [facility] | [address] | [place] [address] | | | SERVICES, CORE | [address] | | | + + + + + COVID-19 06/06/2020 9:55 AM PDT) + + + + + + | Component | Value | Ref Range | Performed | Pathologist | | | | | At | Signature | + + + + + + | COVID-19, | Not Detected | Not Detected | [facility] | | | PCR | | | MOLECULAR | | | | | | MICROBIOLIG | | | | | | Y LAB | | + + + + + + + + | Specimen | + + | Swab - Nasopharynx | + + + + + | Narrative | Performed At | + + + | Not Detected results do not preclude SARS-CoV-2 infection and should | [facility] | | not be used as the sole basis for treatment or other patient | MOLECULAR | | management decisions. Not Detected results must be combined with | MICROBIOLIGY | | clinical observations, patient history, and epidemiological | LAB | | information. Analyte specific reagents are used in many laboratory | | | tests necessary for standard medical care. This test was developed and | | | its performance characteristics determined by [employer]. It | | | has not been cleared or approved by the US Food and Drug | | | Administration (FDA). FDA does not require this test to go through | | | premarket FDA review. This test is used for clinical purposes. It | | | should not be regarded as investigational or for research. The | | | laboratory is certified under the Clinical Laboratory Improvement | | | Amendments (CLIA) as qualified to perform high complexity clinical | | | laboratory testing. | | + + + + + + + + | Performing | Address | City/State/Zipcode | Phone Number | | Organization | | | | + + + + + | [facility] | [address] | [place] [address] | | | MICROBIOLOGY LAB | [address] | | | + + + + + | [facility] | [address] | [place], [place] | | | MICROBIOLOSCARY LAB | [address] | [address], [place] | | + + + + + HEPARIN, EITHER STANDARD / LMW, BLOOD (06/06/2020 6:12 AM PDT) + +-------+ + + + | Component | Value | Ref Range | Performed | Pathologist | | | | | At | Signature | + +-------+ + + + | HEPARIN, | 0.47 | U/mL | [facility] | | | STD LMW | | | LABORATORY | | | | | | SERVICES, | | | | | | CORE | | + +-------+ + + + + + | Specimen | + + | Blood - Blood | | (substance) | + + + + + | Narrative | Performed At | + + + | Venous Disease Heparin Protocol Heparin level 6 hrs after every | [facility] | | heparin rate change; If heparin level within target range for 2 | LABORATORY | | consecutive results, recheck every AM. Heparin, Either STD/LMW - | SERVICES, CORE | | Therapeutic Ranges: Heparin, Unfractionated: 0.35 - 0.70 U/mL | | | Enoxaparin, LMWH: 0.70 - 1.20 U/mL Dalteparin, LMWH: | | | 0.70 - 1.20 U/mL Tinzaparin, LMWH: Therapeutic | | | range not established. | | | Preliminary studies suggest range | | | similar to dalteparin. Clinical | | | correlation required. Heparin levels may be unreliable for: | | | Total bilirubin >28.8 mg/dL | | | Triglycerides >690 mg/dL | | | or Moderate to Gross Hemolysis | | + + + + + + + + | Performing | Address | City/State/Zipcode | Phone Number | | Organization | | | | + + + + + | [facility] | [address] | [place] [address] | | | SERVICES, CORE | [address] | | | + + + + + CBC (HEMOGRAM) ONLY (06/06/2020 6:12 AM PDT) + + + + + + | Component | Value | Ref Range | Performed | Pathologist | | | | | At | Signature | + + + + + + | WHITE CELL | 5.78 | 3.50 - 10.80 | [facility] | | | COUNT | | K/cu mm | LABORATORY | | | | | | SERVICES, | | | | | | CORE | | + + + + + + | RED CELL | 3.84 (L) | 4.50 - 6.00 | [facility] | | | COUNT | | M/cu mm | LABORATORY | | | | | | SERVICES, | | | | | | CORE | | + + + + + + | HEMOGLOBIN | 12.2 (L) | 13.5 - 17.5 | [facility] | | | | | g/dL | LABORATORY | | | | | | SERVICES, | | | | | | CORE | | + + + + + + | HEMATOCRIT | 37.1 (L) | 41.0 - 53.0 % | [facility] | | | | | | LABORATORY | | | | | | SERVICES, | | | | | | CORE | | + + + + + + | MCV | 96.6 | 80.0 - 100.0 fL | [facility] | | | | | | LABORATORY | | | | | | SERVICES, | | | | | | CORE | | + + + + + + | MCHC | 32.9 | 32.0 - 36.0 | [facility] | | | | | g/dL | LABORATORY | | | | | | SERVICES, | | | | | | CORE | | + + + + + + | RDW SD | 46.5 (H) | 35.1 - 46.3 fL | [facility] | | | | | | LABORATORY | | | | | | SERVICES, | | | | | | CORE | | + + + + + + | PLATELET | 280 | 150 - 400 K/cu | [facility] | | | COUNT | | mm | LABORATORY | | | | | | SERVICES, | | | | | | CORE | | + + + + + + | MPV | 8.7 (L) | 9.7 - 12.3 fL | [facility] | | | | | | LABORATORY | | | | | | SERVICES, | | | | | | CORE | | + + + + + + | NRBC% | 0.0 | 0.0 - 0.3 % | [facility] | | | | | | LABORATORY | | | | | | SERVICES, | | | | | | CORE | | + + + + + + | NRBC# | 0.00 | 0.00 - 0.02 | [facility] | | | | | K/cu mm | LABORATORY | | | | | | SERVICES, | | | | | | CORE | | + + + + + + + + | Specimen | + + | Blood - Blood | | (substance) | + + + + + + + | Performing | Address | City/State/Zipcode | Phone Number | | Organization | | | | + + + + + | [facility] | [address] | [place] [address] | | | SERVICES, CORE | [address] | | | + + + + + BASIC METABOLIC SET (NA, K, CL, TCO2, BUN, CR, GLU, CA) (06/06/2020 6:12 AM PDT) + +---------+ + + + | Component | Value | Ref Range | Performed | Pathologist | | | | | At | Signature | + +---------+ + + + | GLUCOSE, | 112 (H) | 70 - 99 mg/dL | [facility] | | | PLASMA | | | LABORATORY | | | (LAB) | | | SERVICES, | | | | | | CORE | | + +---------+ + + + | BUN, PLASMA | 9 | 6 - 20 mg/dL | [facility] | | | (LAB) | | | LABORATORY | | | | | | SERVICES, | | | | | | CORE | | + +---------+ + + + | CREATININE | 0.93 | 0.70 - 1.30 | [facility] | | | PLASMA | | mg/dL | LABORATORY | | | (LAB) | | | SERVICES, | | | | | | CORE | | + +---------+ + + + | EGFR | >60 | >60 mL/min | [facility] | | | - | | | LABORATORY | | | BRITISH | | | SERVICES, | | | | | | CORE | | + +---------+ + + + | EGFR NON | >60 | >60 mL/min | [facility] | | | -FÉLIX | | | LABORATORY | | | RICAN | | | SERVICES, | | | | | | CORE | | + +---------+ + + + | SODIUM, | 138 | 136 - 145 | [facility] | | | PLASMA | | mmol/L | LABORATORY | | | (LAB) | | | SERVICES, | | | | | | CORE | | + +---------+ + + + | POTASSIUM, | 3.7 | 3.4 - 5.0 | [facility] | | | PLASMA | | mmol/L | LABORATORY | | | (LAB) | | | SERVICES, | | | | | | CORE | | + +---------+ + + + | CHLORIDE, | 102 | 97 - 108 mmol/L | [facility] | | | PLASMA | | | LABORATORY | | | (LAB) | | | SERVICES, | | | | | | CORE | | + +---------+ + + + | TOTAL CO2, | 31 | 21 - 32 mmol/L | [facility] | | | PLASMA | | | LABORATORY | | | (LAB) | | | SERVICES, | | | | | | CORE | | + +---------+ + + + | CALCIUM, | 8.9 | 8.6 - 10.2 | [facility] | | | PLASMA | | mg/dL | LABORATORY | | | (LAB) | | | SERVICES, | | | | | | CORE | | + +---------+ + + + | ANION GAP | 5 | 4 - 11 mmol/L | [facility] | | | | | | LABORATORY | | | | | | SERVICES, | | | | | | CORE | | + +---------+ + + + | POTASSIUM | No Hemo | | [facility] | | | CMNT | | | LABORATORY | | | | | | SERVICES, | | | | | | CORE | | + +---------+ + + + | BUN/CREATIN | 10 | 8 - 25 | [facility] | | | INE RATIO | | | LABORATORY | | | | | | SERVICES, | | | | | | CORE | | + +---------+ + + + + + | Specimen | + + | Blood - Blood | | (substance) | + + + + + | Narrative | Performed At | + + + | GFR is estimated using the MDRD equation recommended by the National | [facility] | | Kidney Disease Education Program. Estimated GFR Interpretive | LABORATORY | | Information: <60 mL/min/1.73 sq m Chronic Kidney | SERVICES, CORE | | Disease <15 mL/min/1.73 sq m Kidney Failure | | | Estimated GFR greater than 60 mL/min/1.73 sq m is of limited clinical | | | value. The MDRD equation is not valid in the following situations: | | | - Patients under 18 years of age - Severe malnutrition or obesity | | | - Vegetarian diet - Rapidly changing kidney function - Amputees, | | | paraplegics, or other muscle-wasting diseases | | + + + + + + + + | Performing | Address | City/State/Zipcode | Phone Number | | Organization | | | | + + + + + | [facility] | [address] | [place] [address] | | | VJ, [place]ER[place] | [address] | | | + + + + + DIGOXIN, PLASMA (06/06/2020 6:12 AM PDT) + +---------+ + + + | Component | Value | Ref Range | Performed | Pathologist | | | | | At | Signature | + +---------+ + + + | DIGOXIN | 0.5 (L) | 0.8 - 2.0 ng/mL | [facility] | | | CONCENTRATI | | | LABORATORY | | | ON | | | SERVICES, | | | | | | CORE | | + +---------+ + + + + + | Specimen | + + | Blood - Blood | | (substance) | + + + + + + + | Performing | Address | City/State/Zipcode | Phone Number | | Organization | | | | + + + + + | [facility] | [address] | [place] [address] | | | VJ, [place] | [address] | | | + + + + + HEPARIN, EITHER STANDARD / LMW, BLOOD (06/05/2020 6:21 AM PDT) + +-------+ + + + | Component | Value | Ref Range | Performed | Pathologist | | | | | At | Signature | + +-------+ + + + | HEPARIN, | 0.50 | U/mL | [facility] | | | STD LMW | | | LABORATORY | | | | | | VJ, | | | | | | CORE | | + +-------+ + + + + + | Specimen | + + | Blood - Blood | | (substance) | + + + + + | Narrative | Performed At | + + + | Venous Disease Heparin Protocol Heparin level 6 hrs after every | [facility] | | heparin rate change; If heparin level within target range for 2 | LABORATORY | | consecutive results, recheck every AM. Heparin, Either STD/LMW - | SERVICES, CORE | | Therapeutic Ranges: Heparin, Unfractionated: 0.35 - 0.70 U/mL | | | Enoxaparin, LMWH: 0.70 - 1.20 U/mL Dalteparin, LMWH: | | | 0.70 - 1.20 U/mL Tinzaparin, LMWH: Therapeutic | | | range not established. | | | Preliminary studies suggest range | | | similar to dalteparin. Clinical | | | correlation required. Heparin levels may be unreliable for: | | | Total bilirubin >28.8 mg/dL | | | Triglycerides >690 mg/dL | | | or Moderate to Gross Hemolysis | | + + + + + + + + | Performing | Address | City/State/Zipcode | Phone Number | | Organization | | | | + + + + + | [facility] | [address] | [place] [address] | | | SERVICES, CORE | [address] | | | + + + + + CBC (HEMOGRAM) ONLY (06/05/2020 6:21 AM PDT) + + + + + + | Component | Value | Ref Range | Performed | Pathologist | | | | | At | Signature | + + + + + + | WHITE CELL | 4.67 | 3.50 - 10.80 | [facility] | | | COUNT | | K/cu mm | LABORATORY | | | | | | SERVICES, | | | | | | CORE | | + + + + + + | RED CELL | 3.73 (L) | 4.50 - 6.00 | [facility] | | | COUNT | | M/cu mm | LABORATORY | | | | | | SERVICES, | | | | | | CORE | | + + + + + + | HEMOGLOBIN | 11.6 (L) | 13.5 - 17.5 | [facility] | | | | | g/dL | LABORATORY | | | | | | SERVICES, | | | | | | CORE | | + + + + + + | HEMATOCRIT | 35.8 (L) | 41.0 - 53.0 % | [facility] | | | | | | LABORATORY | | | | | | SERVICES, | | | | | | CORE | | + + + + + + | MCV | 96.0 | 80.0 - 100.0 fL | [facility] | | | | | | LABORATORY | | | | | | SERVICES, | | | | | | CORE | | + + + + + + | MCHC | 32.4 | 32.0 - 36.0 | [facility] | | | | | g/dL | LABORATORY | | | | | | SERVICES, | | | | | | CORE | | + + + + + + | RDW SD | 46.5 (H) | 35.1 - 46.3 fL | [facility] | | | | | | LABORATORY | | | | | | SERVICES, | | | | | | CORE | | + + + + + + | PLATELET | 280 | 150 - 400 K/cu | [facility] | | | COUNT | | mm | LABORATORY | | | | | | SERVICES, | | | | | | CORE | | + + + + + + | MPV | 8.6 (L) | 9.7 - 12.3 fL | [facility] | | | | | | LABORATORY | | | | | | SERVICES, | | | | | | CORE | | + + + + + + | NRBC% | 0.0 | 0.0 - 0.3 % | [facility] | | | | | | LABORATORY | | | | | | SERVICES, | | | | | | CORE | | + + + + + + | NRBC# | 0.00 | 0.00 - 0.02 | [facility] | | | | | K/cu mm | LABORATORY | | | | | | SERVICES, | | | | | | CORE | | + + + + + + + + | Specimen | + + | Blood - Blood | | (substance) | + + + + + + + | Performing | Address | City/State/Zipcode | Phone Number | | Organization | | | | + + + + + | [facility] | [address] | [place] [address] | | | SERVICES, CORE | [address] | | | + + + + + HEPARIN, EITHER STANDARD / LMW, BLOOD (06/04/2020 5:22 AM PDT) + +-------+ + + + | Component | Value | Ref Range | Performed | Pathologist | | | | | At | Signature | + +-------+ + + + | HEPARIN, | 0.39 | U/mL | [facility] | | | STD LMW | | | LABORATORY | | | | | | SERVICES, | | | | | | CORE | | + +-------+ + + + + + | Specimen | + + | Blood - Blood | | (substance) | + + + + + | Narrative | Performed At | + + + | Venous Disease Heparin Protocol Heparin level 6 hrs after every | [facility] | | heparin rate change; If heparin level within target range for 2 | LABORATORY | | consecutive results, recheck every AM. Heparin, Either STD/LMW - | SERVICES, CORE | | Therapeutic Ranges: Heparin, Unfractionated: 0.35 - 0.70 U/mL | | | Enoxaparin, LMWH: 0.70 - 1.20 U/mL Dalteparin, LMWH: | | | 0.70 - 1.20 U/mL Tinzaparin, LMWH: Therapeutic | | | range not established. | | | Preliminary studies suggest range | | | similar to dalteparin. Clinical | | | correlation required. Heparin levels may be unreliable for: | | | Total bilirubin >28.8 mg/dL | | | Triglycerides >690 mg/dL | | | or Moderate to Gross Hemolysis | | + + + + + + + + | Performing | Address | City/State/Zipcode | Phone Number | | Organization | | | | + + + + + | [facility] | [address] | [place] [address] | | | SERVICES, CORE | [address] | | | + + + + + HEPATITIS B SURFACE AB QUAL, SERUM (06/04/2020 5:00 AM PDT) + + + + + + | Component | Value | Ref Range | Performed | Pathologist | | | | | At | Signature | + + + + + + | HEP B | Not Detected | Not Detected | [facility] | | | SURFACE AB | | | LABORATORY | | | QUAL | | | SERVICES, | | | | | | CORE | | + + + + + + + + | Specimen | + + | Blood - Blood | | (substance) | + + + + + + + | Performing | Address | City/State/Zipcode | Phone Number | | Organization | | | | + + + + + | [facility] | [address] | [place] [address] | | | SERVICES, CORE | [address] | | | + + + + + HEPATITIS B SURFACE AG W/REFLEX CONFIRMATION IF INDETERMINATE RESULTS (06/04/2020 5:00 AM PDT) + + + + + + | Component | Value | Ref Range | Performed | Pathologist | | | | | At | Signature | + + + + + + | HEPATITIS B | | | [facility] | | | SURFACE | | | LABORATORY | | | AG, SERUM | | | SERVICES, | | | | | | CORE | | + + + + + + | HEP B | Not Detected | Not Detected | [facility] | | | SURFACE AG | | | LABORATORY | | | | | | SERVICES, | | | | | | CORE | | + + + + + + + + | Specimen | + + | Blood - Blood | | (substance) | + + + + + + + | Performing | Address | City/State/Zipcode | Phone Number | | Organization | | | | + + + + + | [facility] | [address] | [place] [address] | | | SERVICES, CORE | [address] | | | + + + + + HEPATITIS B CORE AB, SERUM (06/04/2020 5:00 AM PDT) + + + + + + | Component | Value | Ref Range | Performed | Pathologist | | | | | At | Signature | + + + + + + | HEP B CORE | Not Detected | Not Detected | [facility] | | | AB | | | LABORATORY | | | | | | SERVICES, | | | | | | CORE | | + + + + + + + + | Specimen | + + | Blood - Blood | | (substance) | + + + + + + + | Performing | Address | City/State/Zipcode | Phone Number | | Organization | | | | + + + + + | [facility] | [address] | [place] [address] | | | SERVICES, CORE | [address] | | | + + + + + HEPATITIS C VIRUS W/CONFIRMATION (06/04/2020 5:00 AM PDT) + + + + + + | Component | Value | Ref Range | Performed | Pathologist | | | | | At | Signature | + + + + + + | HEP C AB | Not Detected | Not Detected | [facility] | | | | | | LABORATORY | | | | | | SERVICES, | | | | | | CORE | | + + + + + + + + | Specimen | + + | Blood - Blood | | (substance) | + + + + + + + | Performing | Address | City/State/Zipcode | Phone Number | | Organization | | | | + + + + + | [facility] | [address] | [place] [address] | | | SERVICES, CORE | [address] | | | + + + + + CBC (HEMOGRAM) ONLY (06/04/2020 1:07 AM PDT) + + + + + + | Component | Value | Ref Range | Performed | Pathologist | | | | | At | Signature | + + + + + + | WHITE CELL | 5.95 | 3.50 - 10.80 | [facility] | | | COUNT | | K/cu mm | LABORATORY | | | | | | SERVICES, | | | | | | CORE | | + + + + + + | RED CELL | 3.86 (L) | 4.50 - 6.00 | [facility] | | | COUNT | | M/cu mm | LABORATORY | | | | | | SERVICES, | | | | | | CORE | | + + + + + + | HEMOGLOBIN | 12.2 (L) | 13.5 - 17.5 | [facility] | | | | | g/dL | LABORATORY | | | | | | SERVICES, | | | | | | CORE | | + + + + + + | HEMATOCRIT | 37.0 (L) | 41.0 - 53.0 % | [facility] | | | | | | LABORATORY | | | | | | SERVICES, | | | | | | CORE | | + + + + + + | MCV | 95.9 | 80.0 - 100.0 fL | [facility] | | | | | | LABORATORY | | | | | | SERVICES, | | | | | | CORE | | + + + + + + | MCHC | 33.0 | 32.0 - 36.0 | [facility] | | | | | g/dL | LABORATORY | | | | | | SERVICES, | | | | | | CORE | | + + + + + + | RDW SD | 46.3 | 35.1 - 46.3 fL | [facility] | | | | | | LABORATORY | | | | | | SERVICES, | | | | | | CORE | | + + + + + + | PLATELET | 276 | 150 - 400 K/cu | [facility] | | | COUNT | | mm | LABORATORY | | | | | | SERVICES, | | | | | | CORE | | + + + + + + | MPV | 8.8 (L) | 9.7 - 12.3 fL | [facility] | | | | | | LABORATORY | | | | | | SERVICES, | | | | | | CORE | | + + + + + + | NRBC% | 0.0 | 0.0 - 0.3 % | [facility] | | | | | | LABORATORY | | | | | | SERVICES, | | | | | | CORE | | + + + + + + | NRBC# | 0.00 | 0.00 - 0.02 | [facility] | | | | | K/cu mm | LABORATORY | | | | | | SERVICES, | | | | | | CORE | | + + + + + + + + | Specimen | + + | Blood - Blood | | (substance) | + + + + + + + | Performing | Address | City/State/Zipcode | Phone Number | | Organization | | | | + + + + + | [facility] | [address] | [place] [address] | | | SERVICES, CORE | [address] | | | + + + + + HEPARIN, EITHER STANDARD / LMW, BLOOD (06/03/2020 10:19 PM PDT) + +-------+ + + + | Component | Value | Ref Range | Performed | Pathologist | | | | | At | Signature | + +-------+ + + + | HEPARIN, | 0.36 | U/mL | [facility] | | | STD LMW | | | LABORATORY | | | | | | SERVICES, | | | | | | CORE | | + +-------+ + + + + + | Specimen | + + | Blood - Blood | | (substance) | + + + + + | Narrative | Performed At | + + + | Venous Disease Heparin Protocol Heparin level 6 hrs after every | [facility] | | heparin rate change; If heparin level within target range for 2 | LABORATORY | | consecutive results, recheck every AM. Heparin, Either STD/LMW - | SERVICES, CORE | | Therapeutic Ranges: Heparin, Unfractionated: 0.35 - 0.70 U/mL | | | Enoxaparin, LMWH: 0.70 - 1.20 U/mL Dalteparin, LMWH: | | | 0.70 - 1.20 U/mL Tinzaparin, LMWH: Therapeutic | | | range not established. | | | Preliminary studies suggest range | | | similar to dalteparin. Clinical | | | correlation required. Heparin levels may be unreliable for: | | | Total bilirubin >28.8 mg/dL | | | Triglycerides >690 mg/dL | | | or Moderate to Gross Hemolysis | | + + + + + + + + | Performing | Address | City/State/Zipcode | Phone Number | | Organization | | | | + + + + + | [facility] | [address] | [place] [address] | | | SERVICES, CORE | [address] | | | + + + + + HEPARIN, EITHER STANDARD / LMW, BLOOD (06/03/2020 4:23 PM PDT) + +-------+ + + + | Component | Value | Ref Range | Performed | Pathologist | | | | | At | Signature | + +-------+ + + + | HEPARIN, | 0.38 | U/mL | [facility] | | | STD LMW | | | LABORATORY | | | | | | VJ, | | | | | | CORE | | + +-------+ + + + + + | Specimen | + + | Blood - Blood | | (substance) | + + + + + | Narrative | Performed At | + + + | Venous Disease Heparin Protocol Heparin level 6 hrs after every | [facility] | | heparin rate change; If heparin level within target range for 2 | LABORATORY | | consecutive results, recheck every AM. Heparin, Either STD/LMW - | SERVICES, CORE | | Therapeutic Ranges: Heparin, Unfractionated: 0.35 - 0.70 U/mL | | | Enoxaparin, LMWH: 0.70 - 1.20 U/mL Dalteparin, LMWH: | | | 0.70 - 1.20 U/mL Tinzaparin, LMWH: Therapeutic | | | range not established. | | | Preliminary studies suggest range | | | similar to dalteparin. Clinical | | | correlation required. Heparin levels may be unreliable for: | | | Total bilirubin >28.8 mg/dL | | | Triglycerides >690 mg/dL | | | or Moderate to Gross Hemolysis | | + + + + + + + + | Performing | Address | City/State/Zipcode | Phone Number | | Organization | | | | + + + + + | [facility] | [address] | [place] [address] | | | SERVICES, CORE | [address] | | | + + + + + HEPARIN, EITHER STANDARD / LMW, BLOOD (06/03/2020 10:52 AM PDT) + +-------+ + + + | Component | Value | Ref Range | Performed | Pathologist | | | | | At | Signature | + +-------+ + + + | HEPARIN, | 0.14 | U/mL | [facility] | | | STD LMW | | | LABORATORY | | | | | | SERVICES, | | | | | | CORE | | + +-------+ + + + + + | Specimen | + + | Blood - Blood | | (substance) | + + + + + | Narrative | Performed At | + + + | Venous Disease Heparin Protocol Heparin level 6 hrs after every | [facility] | | heparin rate change; If heparin level within target range for 2 | LABORATORY | | consecutive results, recheck every AM. Heparin, Either STD/LMW - | SERVICES, CORE | | Therapeutic Ranges: Heparin, Unfractionated: 0.35 - 0.70 U/mL | | | Enoxaparin, LMWH: 0.70 - 1.20 U/mL Dalteparin, LMWH: | | | 0.70 - 1.20 U/mL Tinzaparin, LMWH: Therapeutic | | | range not established. | | | Preliminary studies suggest range | | | similar to dalteparin. Clinical | | | correlation required. Heparin levels may be unreliable for: | | | Total bilirubin >28.8 mg/dL | | | Triglycerides >690 mg/dL | | | or Moderate to Gross Hemolysis | | + + + + + + + + | Performing | Address | City/State/Zipcode | Phone Number | | Organization | | | | + + + + + | [facility] | [address] | [place] [address] | | | SERVICES, CORE | [address] | | | + + + + + HEPARIN, EITHER STANDARD / LMW, BLOOD (06/03/2020 1:41 AM PDT) + +-------+ + + + | Component | Value | Ref Range | Performed | Pathologist | | | | | At | Signature | + +-------+ + + + | HEPARIN, | 0.23 | U/mL | [facility] | | | STD LMW | | | LABORATORY | | | | | | SERVICES, | | | | | | CORE | | + +-------+ + + + + + | Specimen | + + | Blood - Blood | | (substance) | + + + + + | Narrative | Performed At | + + + | Venous Disease Heparin Protocol Heparin level 6 hrs after every | [facility] | | heparin rate change; If heparin level within target range for 2 | LABORATORY | | consecutive results, recheck every AM. Heparin, Either STD/LMW - | SERVICES, CORE | | Therapeutic Ranges: Heparin, Unfractionated: 0.35 - 0.70 U/mL | | | Enoxaparin, LMWH: 0.70 - 1.20 U/mL Dalteparin, LMWH: | | | 0.70 - 1.20 U/mL Tinzaparin, LMWH: Therapeutic | | | range not established. | | | Preliminary studies suggest range | | | similar to dalteparin. Clinical | | | correlation required. Heparin levels may be unreliable for: | | | Total bilirubin >28.8 mg/dL | | | Triglycerides >690 mg/dL | | | or Moderate to Gross Hemolysis | | + + + + + + + + | Performing | Address | City/State/Zipcode | Phone Number | | Organization | | | | + + + + + | [facility] | [address] | [place] [address] | | | SERVICES, [place] | [address] | | | + + + + + CBC (HEMOGRAM) ONLY (06/03/2020 1:40 AM PDT) + + + + + + | Component | Value | Ref Range | Performed | Pathologist | | | | | At | Signature | + + + + + + | WHITE CELL | 6.48 | 3.50 - 10.80 | [facility] | | | COUNT | | K/cu mm | LABORATORY | | | | | | SERVICES, | | | | | | CORE | | + + + + + + | RED CELL | 3.56 (L) | 4.50 - 6.00 | [facility] | | | COUNT | | M/cu mm | LABORATORY | | | | | | SERVICES, | | | | | | CORE | | + + + + + + | HEMOGLOBIN | 11.2 (L) | 13.5 - 17.5 | [facility] | | | | | g/dL | LABORATORY | | | | | | SERVICES, | | | | | | CORE | | + + + + + + | HEMATOCRIT | 33.8 (L) | 41.0 - 53.0 % | [facility] | | | | | | LABORATORY | | | | | | SERVICES, | | | | | | CORE | | + + + + + + | MCV | 94.9 | 80.0 - 100.0 fL | [facility] | | | | | | LABORATORY | | | | | | SERVICES, | | | | | | CORE | | + + + + + + | MCHC | 33.1 | 32.0 - 36.0 | [facility] | | | | | g/dL | LABORATORY | | | | | | SERVICES, | | | | | | CORE | | + + + + + + | RDW SD | 45.6 | 35.1 - 46.3 fL | [facility] | | | | | | LABORATORY | | | | | | SERVICES, | | | | | | CORE | | + + + + + + | PLATELET | 260 | 150 - 400 K/cu | [facility] | | | COUNT | | mm | LABORATORY | | | | | | SERVICES, | | | | | | CORE | | + + + + + + | MPV | 8.9 (L) | 9.7 - 12.3 fL | [facility] | | | | | | LABORATORY | | | | | | SERVICES, | | | | | | CORE | | + + + + + + | NRBC% | 0.0 | 0.0 - 0.3 % | [facility] | | | | | | LABORATORY | | | | | | SERVICES, | | | | | | CORE | | + + + + + + | NRBC# | 0.00 | 0.00 - 0.02 | [facility] | | | | | K/cu mm | LABORATORY | | | | | | SERVICES, | | | | | | CORE | | + + + + + + + + | Specimen | + + | Blood - Blood | | (substance) | + + + + + + + | Performing | Address | City/State/Zipcode | Phone Number | | Organization | | | | + + + + + | [facility] | [address] | [place] [address] | | | SERVICES, CORE | [address] | | | + + + + + HIV AB/AG SCREENING W/REFLEX TO CONFIRM (06/03/2020 1:40 AM PDT) + + + + + + | Component | Value | Ref Range | Performed | Pathologist | | | | | At | Signature | + + + + + + | HIV-1,2 | Negative | Negative | [facility] | | | AB/HIV-1 | | | LABORATORY | | | P24 AG | | | SERVICES, | | | SCREEN | | | SPECIAL IMM | | | | | | + [place] | | + + + + + + + + | Specimen | + + | Blood - Blood | | (substance) | + + + + + | Narrative | Performed At | + + + | HIV-1 p24 Ag and HIV-1,2 Ab not detected. The performance of the | [facility] | | HEAD WOOD GRINDER HIV Combo test, with or without confirmation, was not | LABORATORY | | tested in pediatric patients less than 2 years of age. [facility] | SERVICES, | | guidelines recommend virologic assays (i.e. HIV 1 VIRAL LOAD) that | SPECIAL IMM + | | directly detect HIV for diagnosis of HIV infection in infants younger | [place] | | than 2 years. | | + + + + + + + + | Performing | Address | City/State/Zipcode | Phone Number | | Organization | | | | + + + + + | [facility] | [address] | [place] [address] | | | SERVICES, SPECIAL | [address] | | | | IMM + [place] | | | | + + + + + BASIC METABOLIC SET (NA, K, CL, TCO2, BUN, CR, GLU, CA) (06/03/2020 1:40 AM PDT) + +---------+ + + + | Component | Value | Ref Range | Performed | Pathologist | | | | | At | Signature | + +---------+ + + + | GLUCOSE, | 132 (H) | 70 - 99 mg/dL | [facility] | | | PLASMA | | | LABORATORY | | | (LAB) | | | SERVICES, | | | | | | CORE | | + +---------+ + + + | BUN, PLASMA | 11 | 6 - 20 mg/dL | [facility] | | | (LAB) | | | LABORATORY | | | | | | SERVICES, | | | | | | CORE | | + +---------+ + + + | CREATININE | 0.93 | 0.70 - 1.30 | [facility] | | | PLASMA | | mg/dL | LABORATORY | | | (LAB) | | | SERVICES, | | | | | | CORE | | + +---------+ + + + | EGFR | >60 | >60 mL/min | [facility] | | | - | | | LABORATORY | | | BRITISH | | | SERVICES, | | | | | | CORE | | + +---------+ + + + | EGFR NON | >60 | >60 mL/min | [facility] | | | -FÉLIX | | | LABORATORY | | | RICAN | | | SERVICES, | | | | | | CORE | | + +---------+ + + + | SODIUM, | 135 (L) | 136 - 145 | [facility] | | | PLASMA | | mmol/L | LABORATORY | | | (LAB) | | | SERVICES, | | | | | | CORE | | + +---------+ + + + | POTASSIUM, | 4.1 | 3.4 - 5.0 | [facility] | | | PLASMA | | mmol/L | LABORATORY | | | (LAB) | | | SERVICES, | | | | | | CORE | | + +---------+ + + + | CHLORIDE, | 101 | 97 - 108 mmol/L | [facility] | | | PLASMA | | | LABORATORY | | | (LAB) | | | SERVICES, | | | | | | CORE | | + +---------+ + + + | TOTAL CO2, | 31 | 21 - 32 mmol/L | [facility] | | | PLASMA | | | LABORATORY | | | (LAB) | | | SERVICES, | | | | | | CORE | | + +---------+ + + + | CALCIUM, | 8.2 (L) | 8.6 - 10.2 | [facility] | | | PLASMA | | mg/dL | LABORATORY | | | (LAB) | | | SERVICES, | | | | | | CORE | | + +---------+ + + + | ANION GAP | 3 (L) | 4 - 11 mmol/L | [facility] | | | | | | LABORATORY | | | | | | SERVICES, | | | | | | CORE | | + +---------+ + + + | POTASSIUM | No Hemo | | [facility] | | | CMNT | | | LABORATORY | | | | | | SERVICES, | | | | | | CORE | | + +---------+ + + + | BUN/CREATIN | 12 | 8 - 25 | [facility] | | | INE RATIO | | | LABORATORY | | | | | | SERVICES, | | | | | | CORE | | + +---------+ + + + + + | Specimen | + + | Blood - Blood | | (substance) | + + + + + | Narrative | Performed At | + + + | GFR is estimated using the MDRD equation recommended by the National | [facility] | | Kidney Disease Education Program. Estimated GFR Interpretive | LABORATORY | | Information: <60 mL/min/1.73 sq m Chronic Kidney | SERVICES, CORE | | Disease <15 mL/min/1.73 sq m Kidney Failure | | | Estimated GFR greater than 60 mL/min/1.73 sq m is of limited clinical | | | value. The MDRD equation is not valid in the following situations: | | | - Patients under 18 years of age - Severe malnutrition or obesity | | | - Vegetarian diet - Rapidly changing kidney function - Amputees, | | | paraplegics, or other muscle-wasting diseases | | + + + + + + + + | Performing | Address | City/State/Zipcode | Phone Number | | Organization | | | | + + + + + | [facility] | [address] | [place] [address] | | | SERVICES, CORE | [address] | | | + + + + + X-RAY ANKLE 3 VIEWS RIGHT (06/02/2020 8:55 PM PDT) + + | Specimen | + + | | + + + + + | Narrative | Performed At | + + + | EXAM: ANKLE 3 VIEWS RIGHT HISTORY: evaluate hardware postop | [facility] | | COMPARISON: 06/02/2020 FINDINGS: Overlying cast material | RADIOLOGY VOICE | | obscures fine bone detail. Redemonstration of a comminuted | RECOGNITION 2 | | displaced trimalleolar fracture not significantly changed in alignment | | | from the comparison imaging. There is anterolateral talar dislocation | | | similar to the prior. No new fracture is identified. | | | IMPRESSION: No significant change in alignment of the comminuted | | | displaced trimalleolar tibiotalar fracture dislocation. I have | | | personally reviewed the images and, if necessary, edited the report. I | | | agree with the report as now presented. Final signature: Silas Delgado | | | MD Bonifaico 06/03/2020 8:39 AM Preliminary: Silas Valdovinos MD | | | Dictation initiated: Silas Valdovinos MD 06/03/2020 8:37 AM | | + + + + + | Procedure Note | + + | Service Account, Radiant Res In Interface - 06/03/2020 8:40 AM PDT EXAM: ANKLE 3 | | VIEWS RIGHT HISTORY: evaluate hardware postop COMPARISON: 06/02/2020 FINDINGS: Overlying | | cast material obscures fine bone detail. Redemonstration of a comminuted displaced | | trimalleolar fracture not significantly changed in alignment from the comparison | | imaging. There is anterolateral talar dislocation similar to the prior. No new fracture | | is identified. IMPRESSION: No significant change in alignment of the comminuted | | displaced trimalleolar tibiotalar fracture dislocation. I have personally reviewed the | | images and, if necessary, edited the report. I agree with the report as now presented. | | Final signature: Silas Valdovinos MD 06/03/2020 8:39 AM Preliminary: Silas Valdovinos, | | Dictation initiated: Silas Valdovinos MD 06/03/2020 8:37 AM | |Redemonstration of a comminuted displaced trimalleolar fracture not significantly changed i n alignment from the comparison imaging. There is anterolateral talar dislocation similar to the prior. | | | |No new fracture is identified. | | | |IMPRESSION: | | | |No significant change in alignment of the comminuted displaced trimalleolar tibiotalar frac ture dislocation. | | | |I have personally reviewed the images and, if necessary, edited the report. I agree with [facility] report as now presented. | | | |Final signature: Silas Valdovinos MD 06/03/2020 8:39 AM | |Preliminary: Silas Valdovinos MD | |Dictation initiated: Silas Valdovinos MD 06/03/2020 8:37 AM | + + + +---------+ + + | Performing | Address | City/State/Zipcode | Phone Number | | Organization | | | | + +---------+ + + | [facility] | | | | | VOICE RECOGNITION 2 | | | | + +---------+ + + HEPARIN, EITHER STANDARD / LMW, BLOOD (06/02/2020 6:41 PM PDT) + +-------+ + + + | Component | Value | Ref Range | Performed | Pathologist | | | | | At | Signature | + +-------+ + + + | HEPARIN, | <0.10 | U/mL | [facility] | | | STD LMW | | | LABORATORY | | | | | | SERVICES, | | | | | | CORE | | + +-------+ + + + + + | Specimen | + + | Blood - Blood | | (substance) | + + + + + | Narrative | Performed At | + + + | Heparin, Either STD/LMW - Therapeutic Ranges: Heparin, | [facility] | | Unfractionated: 0.35 - 0.70 U/mL Enoxaparin, LMWH: 0.70 | LABORATORY | | - 1.20 U/mL Dalteparin, LMWH: 0.70 - 1.20 U/mL | SERVICES, CORE | | Tinzaparin, LMWH: Therapeutic range not established. | | | Preliminary studies suggest range | | | similar to dalteparin. Clinical | | | correlation required. | | | Heparin levels may be unreliable for: | | | Total bilirubin >28.8 mg/dL | | | Triglycerides >690 mg/dL | | | or Moderate to Gross Hemolysis | | + + + + + + + + | Performing | Address | City/State/Zipcode | Phone Number | | Organization | | | | + + + + + | [facility] | [address] | [place] [address] | | | SERVICES, CORE | [address] | | | + + + + + APTT (ACT. PART. THROMBO TIME) (06/02/2020 6:41 PM PDT) + +-------+ + + + | Component | Value | Ref Range | Performed | Pathologist | | | | | At | Signature | + +-------+ + + + | APTT | 32.5 | 26.0 - 36.0 | [facility] | | | | | seconds | LABORATORY | | | | | | SERVICES, | | | | | | CORE | | + +-------+ + + + + + | Specimen | + + | Blood - Blood | | (substance) | + + + + + | Narrative | Performed At | + + + | APTT values for monitoring heparin therapy may be affected by | [facility] | | specimens processed >1 hour after collection. APTT Therapeutic | LABORATORY | | Range: (75 - 120) sec Heparin | SERVICES, CORE | | levels of 0.35 - 0.7 U/mL | | + + + + + + + + | Performing | Address | City/State/Zipcode | Phone Number | | Organization | | | | + + + + + | [facility] | [address] | [place] [address] | | | SERVICES, CORE | [address] | | | + + + + + CAPILLARY BLOOD GLUCOSE (NO CHG), POC (06/02/2020 6:01 PM PDT) + +-------+ + + + | Component | Value | Ref Range | Performed | Pathologist | | | | | At | Signature | + +-------+ + + + | BLOOD | 90 | 70 - 99 mg/dL | [facility] - | | | GLUCOSE, | | | [facility] | | | POC | | | [facility] | | | | | | OF CARE | | | | | | TESTS | | + +-------+ + + + + + | Specimen | + + | Blood | + + + + + + + | Performing | Address | City/State/Zipcode | Phone Number | | Organization | | | | + + + + + | [facility] | [address] | [place], [place] | | | [facility] | [address] | [address] | | | TESTS | | | | + + + + + TRANSTHORACIC ECHOCARDIOGRAM, ADULT (06/02/2020 4:29 PM PDT) + + + + + + | Component | Value | Ref Range | Performed | Pathologist | | | | | At | Signature | + + + + + + | AOV VMN | 8.6 | | [facility] | | | (AORTIC | | | OF | | | VALVE) | | | CARDIOLOGY | | + + + + + + | BIPLANE, EF | 60 | | [facility] | | | | | | OF | | | | | | CARDIOLOGY | | + + + + + + | EJECTION | 55 to 60 | | [facility] | | | FRACTION | | | OF | | | | | | CARDIOLOGY | | + + + + + + | LA | 4.9 | | [facility] | | | DIMENSION | | | OF | | | | | | CARDIOLOGY | | + + + + + + | LVIDD | 4.6 | | [facility] | | | | | | OF | | | | | | CARDIOLOGY | | + + + + + + | MV E? | 0.1 | | [facility] | | | | | | OF | | | | | | CARDIOLOGY | | + + + + + + | MV E VMAX | 1.0 | | [facility] | | | | | | OF | | | | | | CARDIOLOGY | | + + + + + + | MV E/E' | 8.3 | | [facility] | | | (MITRAL | | | OF | | | VALVE) | | | CARDIOLOGY | | + + + + + + | MITRAL | 11.1 | | [facility] | | | ANNULUS | | | OF | | | MEDIAL E/E" | | | CARDIOLOGY | | | (TISSUE | | | | | | DOPPLER) | | | | | + + + + + + | RV TAPSE | 1.7 | | [facility] | | | | | | OF | | | | | | CARDIOLOGY | | + + + + + + | RV TDI S? | 7.9 | | [facility] | | | | | | OF | | | | | | CARDIOLOGY | | + + + + + + | TR VMAX | 3.0 | | [facility] | | | (TRICUSPID | | | OF | | | VALVE) | | | CARDIOLOGY | | + + + + + + | EJECTION | 57.5 | % | [facility] | | | FRACTION | | | OF | | | RANGE MEAN | | | CARDIOLOGY | | | VALUE | | | | | + + + + + + + + | Specimen | + + | | + + + -+ + | Narrative | Performed At | + -+ + | [facility] | [facility] | | [facility] [address] | CARDIOLOGY | | [place], [place] [address] Ph: | | | Pt Name: DIANE AN | | | Study Date/Time 06/02/2020 / 4:29:48 PMMRN: [id number] | | | Most recent prior: -Acc #: [id number] | | | No. previous echos: 0DOB: 1950 70 years Heart Rate: | | | 75 bpmHeight: 71.0 in Blood Pressure: | | | 146/67 mm/HgWeight: 190.0 lb Gender: | | | MBSA: 2.06 m | | | Order ID: [id number] Study | | | [facility] Pricila Trent [facility]ENTERReferring Provider: RANDY Jones | | | ATKINModalities Performed: 2D, Color flow, Spectral Doppler and | | | Definity contrast.Study Quality: This was a technically difficult | | | study, but image quality improved with echo contrast.Imaging | | | Limitations: Supine.Exam Indication: EdemaHistory: 70 y.o. M with | | | atrial fibrillation, alcoholic cirrhosis, and neuropathy known to the | | | orthopaedic service for left ankle osteomyelitis. Patient history has | | | been obtained from the EHR Transthoracic Echocardiographic Report | | | + | | | ---------+ Final Impressions: | | | | | | | | | | | | | | | 1. The left ventricular size is normal. | | | 2. There is mild | | | concentric left ventricular hypertrophy. | | | 3. The LV function is normal. | | | 4. Appearance of the aortic | | | valve is suggestive of a prosthesis. The leaflets are | | | mildly calcified. There is no stenosis or regurgitation. Stroke | | | volume is reduced. | | | 5. There are no obvious | | | valvular vegetations or unexplained regurgitant jets noted on this | | | poor quality transthoracic echocardiogram. | | | | | | 6. There are | | | no prior exams available for comparison. | | | | | | | | | + | | | + Description of Findings: Cardiac Rhythm: Normal sinus | | | rhythm.Left Ventricle: The left ventricular size is normal. Visually | | | estimated left ventricular ejection fraction is 55 - 60%. There is | | | mild concentric left ventricular hypertrophy. The ejection fraction is | | | 59.8 % as measured by Sun's biplane method. The LV function is | | | normal. Due to poor endocardial definition, ultrasound contrast was | | | used (Definity).Left Ventricular Wall Motion: Left ventricular | | | systolic thickening is normal in all segments.Atria: Left atrial size | | | is normal. Normal right atrium.Right Ventricle: The right ventricle is | | | not well visualized. TAPSE measures 1.7cm. The RV TDI s' velocity is | | | 7.9cm/sec.Aortic Valve: No indication of aortic valve regurgitation. | | | The peak & mean transvalvular gradients are 13.6 mmHg and 8.6 mmHg | | | respectively. The DVI is 0.30. The calculated CARLOS is 1.23 cm | | | using an LVOT diameter of 2.30 cm (continuity equation). The | | | indexed stroke volume is 26.2 ml/m | | | . Appearance of the aortic valve is suggestive of a prosthesis. The | | | leaflets are mildly calcified. There is no stenosis or regurgitation. | | | Stroke volume is reduced.Mitral Valve: The mitral valve is | | | structurally normal. Trace mitral valve regurgitation.Tricuspid Valve: | | | The tricuspid valve is structurally normal. Trace tricuspid | | | regurgitation.Pulmonic Valve: The pulmonic valve is structurally | | | normal. No indication of pulmonary valve regurgitation.Aorta: | | | Visualized portions of the ascending aorta and aortic root appear | | | normal.Venous: The inferior vena cava is not well | | | visualized.Pericardium: No pericardial effusion is seen. Additional | | | Findings: There are no obvious valvular vegetations or unexplained | | | regurgitant jets noted on this This was a technically difficult study, | | | but image quality improved with echo contrast. quality transthoracic | | | echocardiogram. There are no prior exams.2D Measurements | | | Doppler Measurements 2D NL Values | | | Aortic MitralLVID(d) 4.60 (3.5-5.7cm) Max Elliot | | | 1.85 Peak E 1.00 cm | | | m/s m/sLVID(s) 2.99 | | | Mean grad 8.6 Peak A cm | | | mmHgIVS(d) 1.25 (0.6-1.1cm) LVOT Elliot | | | 0.55 E/A Ratio cm | | | m/sLVPW(d) 1.14 (0.6-1.1cm) LVOT VTI 0.130 TDI (E/e') | | | 8.3 cm mLA | | | A/Ps 2D 4.90 (2.7-3.9cm) LVOT Diam 2.30 MV mn gd | | | cm cmLA vol A/L 30.7 (16-34) | | | LVOT SV 26.2 MR EROindex ml/m | | | indexed ml/m | | | LA vol MOD 61.6 (40-73ml) Tricuspid PulmonicBP | | | ml TR Vmax 2.98 PV VmaxLA vol MOD | | | 29.9 (16-34) m/sindex ml/m | | | LVEDV 53.87 Aorta: | | | Index:index ml/m | | | Ao Sinus 3.40 (2.1-3.5cm) 16.5Biplane EF | | | 59.8 % cm | | | mm/m | | | Asc Ao 3.30 | | | 16.0 (prox) | | | cm mm/m | | | Evaluation of chamber size and geometry is accomplished through the | | | incorporation of linear, volumetric, and indexed values Report | | | electronically signed by: [id number] Yani Parra MD (06/02/2020, | | | 5:15:57 PM) Final | | |index ml/m | | |LVEDV 53.87 Aorta: Index: | | |index ml/m Ao Sinus 3.40 (2.1-3.5cm) 16.5 | | |Biplane EF 59.8 % cm mm/m | | | Asc Ao 3.30 16.0 | | | (prox) cm mm/m | | |Evaluation of chamber size and geometry is accomplished through the incorporation of | | |linear, volumetric, and indexed values | | | | | |Report electronically signed by: [id number] Yani Parra MD (06/02/2020, 5:15:57 PM) | | | | | | | | | | | | Final | | + -+ + + + | Procedure Note | + + | Interface, Cardiology Results - 06/02/2020 5:16 PM [facility] | | [facility] Echocardiography Laboratory [address] [place] [address] | | [place], [place] [address] Pt Name: DIANE | | ALLEN Study Date/Time 06/02/2020 / 4:29:48 PMMRN: [id number] | | Most recent prior: -Acc #: [id number] No. previous echos: 0DOB: | | 1950 70 years Heart Rate: 75 bpmHeight: 71.0 in Blood | | Pressure: 146/67 mm/HgWeight: 190.0 lb Gender: MBSA: | | 2.06 m | | Order ID: [id number] [facility] Leland | | [facility] Provider: RANDY Sawyer Performed: 2D, Color flow, | | Spectral Doppler and Definity contrast.Study Quality: This was a technically difficult | | study, but image quality improved with echo contrast.Imaging Limitations: Supine.Exam | | Indication: EdemaHistory: 70 y.o. M with atrial fibrillation, alcoholic cirrhosis, and | | neuropathy known to the orthopaedic service for left ankle osteomyelitis. Patient | | history has been obtained from the EHR Transthoracic Echocardiographic | | Report+ + | | Final Impressions: | | | | 1. The left ventricular | | size is normal. 2. There is mild concentric left | | ventricular hypertrophy. 3. The LV function is normal. | | 4. Appearance of the aortic valve is suggestive | | of a prosthesis. The leaflets are mildly calcified. There is no stenosis or | | regurgitation. Stroke volume is reduced. | | 5. There are no obvious valvular vegetations or unexplained regurgitant | | jets noted on this poor quality transthoracic echocardiogram. | | 6. | | There are no prior exams available for comparison. | | | | + + | | Description of Findings: Cardiac Rhythm: Normal sinus rhythm.Left Ventricle: The left | | ventricular size is normal. Visually estimated left ventricular ejection fraction is 55 | | - 60%. There is mild concentric left ventricular hypertrophy. The ejection fraction is | | 59.8 % as measured by Sun's biplane method. The LV function is normal. Due to poor | | endocardial definition, ultrasound contrast was used (Definity).Left Ventricular Wall | | Motion: Left ventricular systolic thickening is normal in all segments.Atria: Left | | atrial size is normal. Normal right atrium.Right Ventricle: The right ventricle is not | | well visualized. TAPSE measures 1.7cm. The RV TDI s' velocity is 7.9cm/sec.Aortic Valve: | | No indication of aortic valve regurgitation. The peak & mean transvalvular gradients | | are 13.6 mmHg and 8.6 mmHg respectively. The DVI is 0.30. The calculated CARLOS is 1.23 | | cm | | using an LVOT diameter of 2.30 cm (continuity equation). The indexed stroke volume is | | 26.2 ml/m | | . Appearance of the aortic valve is suggestive of a prosthesis. The leaflets are | | mildly calcified. There is no stenosis or regurgitation. Stroke volume is reduced.Mitral | | Valve: The mitral valve is structurally normal. Trace mitral valve | | regurgitation.Tricuspid Valve: The tricuspid valve is structurally normal. Trace | | tricuspid regurgitation.Pulmonic Valve: The pulmonic valve is structurally normal. No | | indication of pulmonary valve regurgitation.Aorta: Visualized portions of the ascending | | aorta and aortic root appear normal.Venous: The inferior vena cava is not well | | visualized.Pericardium: No pericardial effusion is seen. Additional Findings: There are | | no obvious valvular vegetations or unexplained regurgitant jets noted on this This was a | | technically difficult study, but image quality improved with echo contrast. quality | | transthoracic echocardiogram. There are no prior exams.2D Measurements | | Doppler Measurements 2D NL Values Aortic MitralLVID(d) 4.60 | | (3.5-5.7cm) Max Elliot 1.85 Peak E 1.00 cm | | m/s m/sLVID(s) 2.99 Mean grad 8.6 Peak A cm | | mmHgIVS(d) 1.25 (0.6-1.1cm) LVOT Elliot 0.55 E/A Ratio | | cm m/sLVPW(d) 1.14 (0.6-1.1cm) LVOT VTI 0.130 TDI | | (E/e') 8.3 cm mLA A/Ps 2D 4.90 (2.7-3.9cm) LVOT | | Diam 2.30 MV mn gd cm cmLA vol A/L 30.7 (16-34) | | LVOT SV 26.2 MR EROindex ml/m | | indexed ml/m | | LA vol MOD 61.6 (40-73ml) Tricuspid PulmonicBP ml TR | | Vmax 2.98 PV VmaxLA vol MOD 29.9 (16-34) m/sindex ml/m | | LVEDV 53.87 Aorta: Index:index ml/m | | Ao Sinus 3.40 (2.1-3.5cm) 16.5Biplane EF 59.8 % | | cm mm/m | | Asc Ao 3.30 16.0 | | (prox) cm mm/m | | Evaluation of chamber size and geometry is accomplished through the incorporation of | | linear, volumetric, and indexed values Report electronically signed by: [id number] | | Yani Parra MD (06/02/2020, 5:15:57 PM) Final | |Aorta: Visualized portions of the ascending aorta and aortic root appear normal. | |Venous: The inferior vena cava is not well visualized. | |Pericardium: No pericardial effusion is seen. | | | |Additional Findings: There are no obvious valvular vegetations or unexplained | |regurgitant jets noted on this This was a technically difficult study, but image | |quality improved with echo contrast. quality transthoracic echocardiogram. There are | |no prior exams. | |2D Measurements Doppler Measurements | | | | 2D NL Values Aortic Mitral | |LVID(d) 4.60 (3.5-5.7cm) Max Elliot 1.85 Peak E 1.00 | | cm m/s m/s | |LVID(s) 2.99 Mean grad 8.6 Peak A | | cm mmHg | |IVS(d) 1.25 (0.6-1.1cm) LVOT Elliot 0.55 E/A Ratio | | cm m/s | |LVPW(d) 1.14 (0.6-1.1cm) LVOT VTI 0.130 TDI (E/e') 8.3 | | cm m | |LA A/Ps 2D 4.90 (2.7-3.9cm) LVOT Diam 2.30 MV mn gd | | cm cm | |LA vol A/L 30.7 (16-34) LVOT SV 26.2 MR ERO | |index ml/m indexed ml/m | |LA vol MOD 61.6 (40-73ml) Tricuspid Pulmonic | |BP ml TR Vmax 2.98 PV Vmax | |LA vol MOD 29.9 (16-34) m/s | |index ml/m | |LVEDV 53.87 Aorta: Index: | |index ml/m Ao Sinus 3.40 (2.1-3.5cm) 16.5 | |Biplane EF 59.8 % cm mm/m | | Asc Ao 3.30 16.0 | | (prox) cm mm/m | |Evaluation of chamber size and geometry is accomplished through the incorporation of | |linear, volumetric, and indexed values | | | |Report electronically signed by: [id number] Yani Parra MD (06/02/2020, 5:15:57 PM) | | | | | | | | Final | + + + + + + + | Performing | Address | City/State/Zipcode | Phone Number | | Organization | | | | + + + + + | [facility] | [address] | [place], [place] | | | CARDIOLOGY | [address] | [address] | | + + + + + CAPILLARY BLOOD GLUCOSE (NO CHG), POC (06/02/2020 2:37 PM PDT) + +---------+ + + + | Component | Value | Ref Range | Performed | Pathologist | | | | | At | Signature | + +---------+ + + + | BLOOD | 105 (H) | 70 - 99 mg/dL | [facility] | | | GLUCOSE, | | | [facility] | | | POC | | | [facility] | | | | | | OF CARE | | | | | | TESTS | | + +---------+ + + + + + | Specimen | + + | Blood | + + + + + + + | Performing | Address | City/State/Zipcode | Phone Number | | Organization | | | | + + + + + | [facility] | [address] | [place] | | | [facility] | [address] | [address] | | | TESTS | | | | + + + + + X-RAY ANKLE 3 VIEWS RIGHT (06/02/2020 2:19 PM PDT) + + | Specimen | + + | | + + + + + | Narrative | Performed At | + + + | - At the time of the study, no professional interpretation was | [facility] | | requested. - | RADIOLOGY | + + + + +---------+ + + | Performing | Address | City/State/Zipcode | Phone Number | | Organization | | | | + +---------+ + + | [facility] | | | | + +---------+ + + VASC LAB VENOUS DUPLEX LOWER EXTREMITY BILAT COMP (06/02/2020 11:10 AM PDT) + + | Specimen | + + | | + + + + + | Narrative | Performed At | + + + | Bilateral: The duplex scanner was used to examine the deep and | [facility] | | superficial veins of the right and left lower extremities. Right: | RADIOLOGY VASC | | There is non-occlusive thrombus in the common femoral vein. The | [place] | | posterior tibial and peroneal veins were not visualized due to an | | | overlying cast. All other veins are patent with otherwise normal flow | | | and responses to augmentation and compression maneuvers and no other | | | thrombus is noted. Left: The veins are patent with normal flow and | | | responses to augmentation and compression maneuvers and no thrombus is | | | noted. Conclusions: Abnormal venous examination. Right: | | | There is deep vein thrombosis in the common femoral vein. The | | | echogenic appearance of the thrombus suggest a chronic process | | | although the vascular laboratory cannot precisely determine the age of | | | thrombus. Clinical correlation is suggested. No other thrombus | | | detected. The axial calf veins were no visualized as described above. | | | Left: No deep or superficial venous thrombosis detected. The | | | limitations of the examination described above indicate that the | | | examination does not conclusively exclude the presence of deep venous | | | thrombosis (DVT). If clinical circumstances continue to suggest the | | | presence of possible DVT a follow-up examination is suggested in 3 to | | | 5 days. I have personally reviewed the images and, if | | | necessary, edited the report. I agree with the report as now | | | presented. | | + + + + + | Procedure Note | + + | Service Account, Radiant Res In Interface - 06/02/2020 11:29 AM PDT Bilateral: The | | duplex scanner was used to examine the deep and superficial veins of the right and left | | lower extremities. Right: There is non-occlusive thrombus in the common femoral vein. | | The posterior tibial and peroneal veins were not visualized due to an overlying cast. | | All other veins are patent with otherwise normal flow and responses to augmentation and | | compression maneuvers and no other thrombus is noted.Left: The veins are patent with | | normal flow and responses to augmentation and compression maneuvers and no thrombus is | | noted. Conclusions: Abnormal venous examination.Right: There is deep vein thrombosis in | | the common femoral vein. The echogenic appearance of the thrombus suggest a chronic | | process although the vascular laboratory cannot precisely determine the age of thrombus. | | Clinical correlation is suggested. No other thrombus detected. The axial calf veins | | were no visualized as described above. Left: No deep or superficial venous thrombosis | | detected.The limitations of the examination described above indicate that the | | examination does not conclusively exclude the presence of deep venous thrombosis (DVT). | | If clinical circumstances continue to suggest the presence of possible DVT a follow-up | | examination is suggested in 3 to 5 days. I have personally reviewed the images and, if | | necessary, edited the report. I agree with the report as now presented. | |I have personally reviewed the images and, if necessary, edited the report. I agree with t he report as now presented. | + + + +---------+ + + | Performing | Address | City/State/Zipcode | Phone Number | | Organization | | | | + +---------+ + + | [facility] | | | | | VASC US | | | | + +---------+ + + CULTURE, BLOOD BACTI & YEAST [facility] (06/02/2020 6:29 AM PDT) + + + + + + | Component | Value | Ref Range | Performed | Pathologist | | | | | At | Signature | + + + + + + | CULTURE | Final Report:No Bacteria | | [facility] | | | RESULT | or Yeast isolated at 5 | | LABORATORY | | | | days. | | SERVICES, | | | | | | CORE | | + + + + + + + + | Specimen | + + | Blood - Structure of | | left hand (body | | structure) | + + + + + + + | Performing | Address | City/State/Zipcode | Phone Number | | Organization | | | | + + + + + | [facility] | [address] | [place] [address] | | | SERVICES, CORE | [address] | | | + + + + + TSH W/REFLEX TO FREE T4(IF ABNORMAL) (06/02/2020 6:29 AM PDT) + +-------+ + + + | Component | Value | Ref Range | Performed | Pathologist | | | | | At | Signature | + +-------+ + + + | TSH | 3.28 | 0.47 - 7.11 | [facility] | | | | | mIU/L | LABORATORY | | | | | | SERVICES, | | | | | | CORE | | + +-------+ + + + + + | Specimen | + + | Blood - Blood | | (substance) | + + + + + | Narrative | Performed At | + + + | TSH reference ranges are influenced by a variety of environmental | [facility] | | influences, age, gender and ethnicity. The supplied reference limits | LABORATORY | | are based on published values utilizing a similar TSH assay, and | SERVICES, CORE | | should be interpreted with caution. | | + + + + + + + + | Performing | Address | City/State/Zipcode | Phone Number | | Organization | | | | + + + + + | [facility] | [address] | [place] [address] | | | SERVICES, [place] | [address] | | | + + + + + METHYLMALONIC ACID, SERUM (06/02/2020 6:29 AM PDT) + + + + + + | Component | Value | Ref Range | Performed | Pathologist | | | | | At | Signature | + + + + + + | METHYLMALON | 0.48 (H)Comment: Slight | 0.00 - 0.40 | [facility] | | | IC ACID | elevation 0.41-0.99 | umol/L | REG UNIV | | | | umol/L | | PTH - [facility] | | | | Consistent with mild | | | | | | vitamin B12 deficiency, | | | | | | renal | | | | | | insufficiency, or | | | | | | intravascular volume | | | | | | contraction. Moderate | | | | | | elevation 1.00-9.99 | | | | | | umol/L | | | | | | Consistent with mild | | | | | | vitamin B12 deficiency. | | | | | | Massive elevation - | | | | | | Greater than or equal to | | | | | | 10 umol/L | | | | | | Consistent with | | | | | | significant vitamin B12 | | | | | | deficiency or | | | | | | with inborn errors of | | | | | | metabolism.INTERPRETIVE | | | | | | INFORMATION: MMA | | | | | | Serum/Plasma, | | | | | | | | | | | | Vitamin B12 Status | | | | | | Test developed and | | | | | | characteristics | | | | | | determined by [facility] | | | | | | Laboratories. See | | | | | | Compliance Statement B: | | | | | | Aunt Kitchen/CSPerformed | | | | | | By: [facility] | | | | | | [facility] | | | | | | [place], [place] [address] | | | | | | Director: Conor Shah | | | | | | MD [place], [place] | | | | + + + + + + + + | Specimen | + + | Blood - Blood | | (substance) | + + + + + + + | Performing | Address | [facility]/State/Zipcode | Phone Number | | Organization | | | | + + + + + | [facility] | [address] | [place], [place] | | | UNIV PTH - INT[facility] | | [phone] | | + + + + + HOMOCYSTEINE TOTAL, PLASMA (06/02/2020 6:29 AM PDT) + + + + + + | Component | Value | Ref Range | Performed | Pathologist | | | | | At | Signature | + + + + + + | HOMOCYSTEIN | 13.4 (H) | 3.5 - 10.4 | [facility] | | | E,PLASMA,TO | | umol/L | LABORATORY | | | [place] | | | SERVICES, | | | | | | SPECIAL IMM | | | | | | + COAG | | + + + + + + + + | Specimen | + + | Blood - Blood | | (substance) | + + + + + + + | Performing | Address | City/State/Zipcode | Phone Number | | Organization | | | | + + + + + | [facility] | [address] | [place] [address] | | | SERVICES, SPECIAL | [address] | | | | IMM + COAG | | | | + + + + + VITAMIN B-12 (06/02/2020 6:29 AM PDT) + +-------+ + + + | Component | Value | Ref Range | Performed | Pathologist | | | | | At | Signature | + +-------+ + + + | VITAMIN B12 | 599 | 193 - 986 pg/mL | [facility] | | | | | | LABORATORY | | | | | | SERVICES, | | | | | | CORE | | + +-------+ + + + + + | Specimen | + + | Blood - Blood | | (substance) | + + + + + + + | Performing | Address | City/State/Zipcode | Phone Number | | Organization | | | | + + + + + | [facility] | [address] | [place] [address] | | | SERVICES, CORE | [address] | | | + + + + + D-DIMER, (PE OR DIC) (06/02/2020 6:29 AM PDT) + + + + + + | Component | Value | Ref Range | Performed | Pathologist | | | | | At | Signature | + + + + + + | D-DIMER (PE | 3.51 (H) | <0.50 ug/mLFEU | [facility] | | | OR DIC) | | | LABORATORY | | | | | | SERVICES, | | | | | | CORE | | + + + + + + + + | Specimen | + + | Blood - Blood | | (substance) | + + + + + | Narrative | Performed At | + + + | D-Dimer Interpretation: <0.5 PE very unlikely 0.50-4.0 | [facility] | | Seen in ill patients but not diagnostic of thrombosis. >4.0 | LABORATORY | | Compatible with DIC but not diagnostic. If clinically | SERVICES, CORE | | indicated request titration of d-dimer. Values >8.0 | | | are strongly suggestive of DIC. | | + + + + + + + + | Performing | Address | City/State/Zipcode | Phone Number | | Organization | | | | + + + + + | [facility] | [address] | [place] [address] | | | SERVICES, CORE | [address] | | | + + + + + DIGOXIN, PLASMA (06/02/2020 6:29 AM PDT) + +-------+ + + + | Component | Value | Ref Range | Performed | Pathologist | | | | | At | Signature | + +-------+ + + + | DIGOXIN | 0.9 | 0.8 - 2.0 ng/mL | [facility] | | | [facility] | | | LABORATORY | | | ON | | | SERVICES, | | | | | | CORE | | + +-------+ + + + + + | Specimen | + + | Blood - Blood | | (substance) | + + + + + + + | Performing | Address | City/State/Zipcode | Phone Number | | Organization | | | | + + + + + | [facility] | [address] | [place] [address] | | | SERVICES, CORE | [address] | | | + + + + + CULTURE, BLOOD BACTI & YEAST [facility] (06/02/2020 6:28 AM PDT) + + + + + + | Component | Value | Ref Range | Performed | Pathologist | | | | | At | Signature | + + + + + + | CULTURE | Final Report:No Bacteria | | [facility] | | | RESULT | or Yeast isolated at 5 | | LABORATORY | | | | days. | | SERVICES, | | | | | | CORE | | + + + + + + + + | Specimen | + + | Blood - Antecubital | | region structure | | (body structure) | + + + + + + + | Performing | Address | City/State/Zipcode | Phone Number | | Organization | | | | + + + + + | [facility] | [address] | [place] [address] | | | SERVICES, CORE | [address] | | | + + + + + HEMOGLOBIN A1C, BLOOD (06/02/2020 3:10 AM PDT) + + + + + + | Component | Value | Ref Range | Performed | Pathologist | | | | | At | Signature | + + + + + + | HEMOGLOBIN | 5.1Comment: Hgb A1C | <5.7 % | [facility] | | | A1C | Interpretive | | LABORATORY | | | | Information: | | SERVICES, | | | | <5.7% - Normal | | SPECIAL IMM | | | | 5.7-6.4% - Consistent | | + COAG | | | | with pre-diabetes | | | | | | >6.4% - Consistent | | | | | | with diabetes | | | | | | | | | | + + + + + + | ESTIMATED | 100Comment: The | mg/dL | [facility] | | | AVERAGE | estimated Average | | LABORATORY | | | GLUCOSE | Glucose (eAG) number is | | SERVICES, | | | | calculated from the | | SPECIAL IMM | | | | result of the A1c test. | | + COAG | | | | The eAG shows what the | | | | | | average blood glucose | | | | | | was over the previous 2 | | | | | | to 3 months. | | | | + + + + + + + + | Specimen | + + | Blood - Blood | | (substance) | + + + + + | Narrative | Performed At | + + + | Alternate forms of testing such as fructosamine should be | [facility] | | considered for monitoring manager intermediate glycemic control in patients with: | LABORATORY | | Increased red cell turnover, certain hemoglobinopathies (e.g., HbS, | SERVICES, | | HbE, HbC and thalassemia syndromes), anemias, blood loss, chronic | SPECIAL IMM + | | liver disease and hemochromatosis (artefactually low HbA1c); iron | COAG | | deficiency anemia (artefactually high HbA1c due to enhanced glycation | | | of hemoglobin). | | + + + + + + + + | Performing | Address | City/State/Zipcode | Phone Number | | Organization | | | | + + + + + | [facility] | [address] | [place] [address] | | | SERVICES, SPECIAL | [address] | | | | IMM + COAG | | | | + + + + + C-REACTIVE PROTEIN (06/02/2020 3:10 AM PDT) + + + + + + | Component | Value | Ref Range | Performed | Pathologist | | | | | At | Signature | + + + + + + | C-REACTIVE | 51.2 (H) | <10.0 mg/L | [facility] | | | PROTEIN | | | LABORATORY | | | | | | SERVICES, | | | | | | CORE | | + + + + + + + + | Specimen | + + | Blood - Blood | | (substance) | + + + + + + + | Performing | Address | City/State/Zipcode | Phone Number | | Organization | | | | + + + + + | [facility] | [address] | [place] [address] | | | SERVICES, CORE | [address] | | | + + + + + SEDIMENTATION RATE (06/02/2020 3:10 AM PDT) + +--------+ + + + | Component | Value | Ref Range | Performed | Pathologist | | | | | At | Signature | + +--------+ + + + | SEDIMENTATI | 50 (H) | 0 - 20 mm/hr | [facility] | | | ON RATE | | | LABORATORY | | | | | | SERVICES, | | | | | | CORE | | + +--------+ + + + + + | Specimen | + + | Blood - Blood | | (substance) | + + + + + + + | Performing | Address | City/State/Zipcode | Phone Number | | Organization | | | | + + + + + | [facility] | [address] | [place] [address] | | | VJ, [place] | [address] | | | + + + + + NT-PRO BNP (06/02/2020 3:10 AM PDT) + + + + + + | Component | Value | Ref Range | Performed | Pathologist | | | | | At | Signature | + + + + + + | NT-PRO BNP | 2,215 (H) | <125 pg/mL | [facility] | | | | | | LABORATORY | | | | | | SERVICES, | | | | | | CORE | | + + + + + + + + | Specimen | + + | Blood - Blood | | (substance) | + + + + + + + | Performing | Address | City/State/Zipcode | Phone Number | | Organization | | | | + + + + + | [facility] | [address] | [place] [address] | | | SERVICES, CORE | [address] | | | + + + + + TROPONIN I, PLASMA (06/02/2020 3:10 AM PDT) + +-------+ + + + | Component | Value | Ref Range | Performed | Pathologist | | | | | At | Signature | + +-------+ + + + | TROPONIN I | <0.02 | <0.80 ng/mL | [facility] | | | | | | LABORATORY | | | | | | SERVICES, | | | | | | CORE | | + +-------+ + + + + + | Specimen | + + | Blood - Blood | | (substance) | + + + + + + + | Performing | Address | City/State/Zipcode | Phone Number | | Organization | | | | + + + + + | [facility] | [address] | [place] [address] | | | SERVICES, CORE | [address] | | | + + + + + COVID-19, RAPID PCR (06/02/2020 3:10 AM PDT) + + + + + + | Component | Value | Ref Range | Performed | Pathologist | | | | | At | Signature | + + + + + + | COVID-19, | Not Detected | Not Detected | [facility] | | | PCR | | | LABORATORY | | | | | | SERVICES, | | | | | | CORE | | + + + + + + + + | Specimen | + + | Swab - Nasopharynx | + + + + + | Narrative | Performed At | + + + | Not Detected results do not preclude SARS-CoV-2 infection and should | [facility] | | not be used as the sole basis for treatment or other patient | LABORATORY | | management decisions. Not Detected results must be combined with | SERVICES, CORE | | clinical observations, patient history, and epidemiological | | | information. Performance of the Xpert Xpress SARS-CoV-2 has only | | | been established in nasopharyngeal swab and nasal wash specimens. | | | Specimen types other than nasopharyngeal swab and nasal wash may | | | give inaccurate results. Fact sheet for patients: | | | https://www.fda.gov/media/462947/download | | + + + + + + + + | Performing | Address | City/State/Zipcode | Phone Number | | Organization | | | | + + + + + | [facility] | [address] | [place] [address] | | | SERVICES, CORE | [address] | | | + + + + + X-RAY ANKLE 3 VIEWS RIGHT (06/02/2020 3:05 AM PDT) + + | Specimen | + + | | + + + + + | Narrative | Performed At | + + + | EXAM: TIBIA AND FIBULA 2 VIEWS RT, ANKLE 3 VIEWS RIGHT HISTORY: | [facility] | | ankle fracture COMPARISON: Same day outside radiograph. | RADIOLOGY VOICE | | FINDINGS: Splint material obscures evaluation of osseous detail. | RECOGNITION 2 | | A comminuted, displaced trimalleolar fracture with anterolateral | | | talar dislocation an impaction resulting in valgus angulation is in | | | unchanged alignment compared to same day outside radiograph. Widening | | | of the syndesmosis is again seen. No additional fracture is | | | identified. No focal osseous destruction. Punctate radiodense foreign | | | bodies are noted within the posterior foot adjacent to the calcaneus. | | | The knee joint spaces are maintained with trace tricompartmental | | | spurring. There is a trace knee joint effusion. A well-corticated | | | ossicle adjacent to the medial femoral condyle likely reflects an old | | | ligamentous avulsion-type injury. IMPRESSION: Comminuted, | | | impacted trimalleolar fracture-dislocation with distal tibiofibular | | | syndesmosis injury, unchanged in alignment compared to same day | | | outside radiograph. No additional fracture. I have | | | personally reviewed the images and, if necessary, edited the report. I | | | agree with the report as now presented. Final signature: Bernarda | | | Gene Street MD 06/02/2020 8:14 AM Preliminary: Varun Augustin MD | | | Dictation initiated: Varun Augustin MD 06/02/2020 7:43 AM | | + + + + -----+ | Procedure Note | + -----+ | Service Account, Radiant Res In Interface - 06/02/2020 8:15 AM PDT EXAM: TIBIA AND | | FIBULA 2 VIEWS RT, ANKLE 3 VIEWS RIGHT HISTORY: ankle fracture COMPARISON: Same day | | outside radiograph. FINDINGS: Splint material obscures evaluation of osseous detail. A | | comminuted, displaced trimalleolar fracture with anterolateral talar dislocation an | | impaction resulting in valgus angulation is in unchanged alignment compared to same day | | outside radiograph. Widening of the syndesmosis is again seen. No additional fracture is | | identified. No focal osseous destruction. Punctate radiodense foreign bodies are noted | | within the posterior foot adjacent to the calcaneus. The knee joint spaces are | | maintained with trace tricompartmental spurring. There is a trace knee joint effusion. A | | well-corticated ossicle adjacent to the medial femoral condyle likely reflects an old | | ligamentous avulsion-type injury. IMPRESSION: Comminuted, impacted trimalleolar | | fracture-dislocation with distal tibiofibular syndesmosis injury, unchanged in alignment | | compared to same day outside radiograph. No additional fracture. I have personally | | reviewed the images and, if necessary, edited the report. I agree with the report as now | | presented. Final signature: Bernarda Street MD 06/02/2020 8:14 AM Preliminary: | | Varun Augustin MD Dictation initiated: Varun Augustin MD 06/02/2020 7:43 AM | | | |Comminuted, impacted trimalleolar fracture-dislocation with distal tibiofibular syndesmosis injury, unchanged in alignment compared to same day outside radiograph. No additional fract ure. | | | | | | | |I have personally reviewed the images and, if necessary, edited the report. I agree with th e report as now presented. | | | |Final signature: Bernarda Street MD 06/02/2020 8:14 AM | |Preliminary: Varun Augustin MD | |Dictation initiated: Varun Augustin MD 06/02/2020 7:43 AM | + -----+ + +---------+ + + | Performing | Address | City/State/Zipcode | Phone Number | | Organization | | | | + +---------+ + + | [facility] | | | | | VOICE RECOGNITION 2 | | | | + +---------+ + + X-RAY TIBIA & FIBULA 2 VIEWS RT (06/02/2020 3:04 AM PDT) + + | Specimen | + + | | + + + + + | Narrative | Performed At | + + + | EXAM: TIBIA AND FIBULA 2 VIEWS RT, ANKLE 3 VIEWS RIGHT HISTORY: | [facility] | | ankle fracture COMPARISON: Same day outside radiograph. | RADIOLOGY VOICE | | FINDINGS: Splint material obscures evaluation of osseous detail. | RECOGNITION 2 | | A comminuted, displaced trimalleolar fracture with anterolateral | | | talar dislocation an impaction resulting in valgus angulation is in | | | unchanged alignment compared to same day outside radiograph. Widening | | | of the syndesmosis is again seen. No additional fracture is | | | identified. No focal osseous destruction. Punctate radiodense foreign | | | bodies are noted within the posterior foot adjacent to the calcaneus. | | | The knee joint spaces are maintained with trace tricompartmental | | | spurring. There is a trace knee joint effusion. A well-corticated | | | ossicle adjacent to the medial femoral condyle likely reflects an old | | | ligamentous avulsion-type injury. IMPRESSION: Comminuted, | | | impacted trimalleolar fracture-dislocation with distal tibiofibular | | | syndesmosis injury, unchanged in alignment compared to same day | | | outside radiograph. No additional fracture. I have | | | personally reviewed the images and, if necessary, edited the report. I | | | agree with the report as now presented. Final signature: Bernarda | | | Gene Street MD 06/02/2020 8:14 AM Preliminary: Varun Augustin MD | | | Dictation initiated: Varun Augustin MD 06/02/2020 7:43 AM | | + + + + -----+ | Procedure Note | + -----+ | Service Account, Radiant Res In Interface - 06/02/2020 8:15 AM PDT EXAM: TIBIA AND | | FIBULA 2 VIEWS RT, ANKLE 3 VIEWS RIGHT HISTORY: ankle fracture COMPARISON: Same day | | outside radiograph. FINDINGS: Splint material obscures evaluation of osseous detail. A | | comminuted, displaced trimalleolar fracture with anterolateral talar dislocation an | | impaction resulting in valgus angulation is in unchanged alignment compared to same day | | outside radiograph. Widening of the syndesmosis is again seen. No additional fracture is | | identified. No focal osseous destruction. Punctate radiodense foreign bodies are noted | | within the posterior foot adjacent to the calcaneus. The knee joint spaces are | | maintained with trace tricompartmental spurring. There is a trace knee joint effusion. A | | well-corticated ossicle adjacent to the medial femoral condyle likely reflects an old | | ligamentous avulsion-type injury. IMPRESSION: Comminuted, impacted trimalleolar | | fracture-dislocation with distal tibiofibular syndesmosis injury, unchanged in alignment | | compared to same day outside radiograph. No additional fracture. I have personally | | reviewed the images and, if necessary, edited the report. I agree with the report as now | | presented. Final signature: Bernarda Street MD 06/02/2020 8:14 AM Preliminary: | | Varun Augustin MD Dictation initiated: Varun Augustin MD 06/02/2020 7:43 AM | | | |Comminuted, impacted trimalleolar fracture-dislocation with distal tibiofibular syndesmosis injury, unchanged in alignment compared to same day outside radiograph. No additional fract ure. | | | | | | | |I have personally reviewed the images and, if necessary, edited the report. I agree with th e report as now presented. | | | |Final signature: Bernarda Street MD 06/02/2020 8:14 AM | |Preliminary: Varun Augustin MD | |Dictation initiated: Varun Augustin MD 06/02/2020 7:43 AM | + -----+ + +---------+ + + | Performing | Address | City/State/Zipcode | Phone Number | | Organization | | | | + +---------+ + + | [facility] | | | | | VOICE RECOGNITION 2 | | | | + +---------+ + + CARDIOLOGY (06/02/2020) + + + | Narrative | Performed At | + + + | | | + + + COVID-19 (06/01/2020 11:10 PM PDT) + + + + + + | Component | Value | Ref Range | Performed | Pathologist | | | | | At | Signature | + + + + + + | COVID-19, | Not Detected | Not Detected | [facility] | | | PCR | | | MOLECULAR | | | | | | MICROBIOLIG | | | | | | Y LAB | | + + + + + + + + | Specimen | + + | Swab - Nasopharynx | + + + + + | Narrative | Performed At | + + + | Not Detected results do not preclude SARS-CoV-2 infection and should | [facility] | | not be used as the sole basis for treatment or other patient | MOLECULAR | | management decisions. Not Detected results must be combined with | MICROBIOLIGY | | clinical observations, patient history, and epidemiological | LAB | | information. Analyte specific reagents are used in many laboratory | | | tests necessary for standard medical care. This test was developed and | | | its performance characteristics determined by [facility]. It | | | has not been cleared or approved by the US Food and Drug | | | Administration (FDA). FDA does not require this test to go through | | | premarket FDA review. This test is used for clinical purposes. It | | | should not be regarded as investigational or for research. The | | | laboratory is certified under the Clinical Laboratory Improvement | | | Amendments (CLIA) as qualified to perform high complexity clinical | | | laboratory testing. | | + + + + + + + + | Performing | Address | City/State/Zipcode | Phone Number | | Organization | | | | + + + + + | [facility] | [address] | [place] [address] | | | MALIK ROMAN | [address] | | | + + + + + | [facility] | [address] | [place], [place] | | | LUIS ROMAN | [address] | [id number], [place] | | + + + + + 12 LEAD ECG (06/01/2020 11:04 PM PDT) + + + + + + | Component | Value | Ref Range | Performed | Pathologist | | | | | At | Signature | + + + + + + | VENTRICULAR | 89 | bpm | [facility] | | | RATE | | | OF | | | | | | CARDIOLOGY | | + + + + + + | ATRIAL RATE | 0 | ms | [facility] | | | | | | OF | | | | | | CARDIOLOGY | | + + + + + + | P-R | | | [facility] | | | INTERVAL | | | OF | | | | | | CARDIOLOGY | | + + + + + + | P AXIS | | | [facility] | | | | | | OF | | | | | | CARDIOLOGY | | + + + + + + | QRS | 93 | ms | [facility] | | | DURATION | | | OF | | | | | | CARDIOLOGY | | + + + + + + | QT | 353 | ms | [facility] | | | | | | OF | | | | | | CARDIOLOGY | | + + + + + + | QTC-JENNIFER | 429 | ms | [facility] | | | | | | OF | | | | | | CARDIOLOGY | | + + + + + + | QTC-KARLAI | 403 | ms | [facility] | | | NERI | | | OF | | | | | | CARDIOLOGY | | + + + + + + | R AXIS | -60 | deg | [facility] | | | | | | OF | | | | | | CARDIOLOGY | | + + + + + + | T AXIS | 39 | deg | [facility] | | | | | | OF | | | | | | CARDIOLOGY | | + + + + + + | ECG | Atrial fibrillation | | [facility] | | | IMPRESSION | | | OF | | | | | | CARDIOLOGY | | + + + + + + | ECG | Left anterior fascicular | | [facility] | | | IMPRESSION | block | | OF | | | | | | CARDIOLOGY | | + + + + + + | ECG | Borderline T | | [facility] | | | IMPRESSION | abnormalities, lateral | | OF | | | | leads- ABNORMAL ECG - | | CARDIOLOGY | | + + + + + + | ECG | Electronically signed | | [facility] | | | IMPRESSION | by: LYNNETTE FLORES | | OF | | | | 06-02-2020 21:01:09 | | CARDIOLOGY | | + + + + + [...] | + + + + + | [facility] | [address] | [place], [place] | | | CARDIOLOGY | [address] | [id number] | | + + + + + ANTIBODY SCREEN (06/01/2020 10:37 PM PDT) + + + + + + | Component | Value | Ref Range | Performed | Pathologist | | | | | At | Signature | + + + + + + | Antibody | Negative | | [facility] | | | Screen | | | LABORATORY | | | | | | SERVICES, | | | | | | TRANSFUSION | | | | | | MEDICINE | | + + + + + + + + | Specimen | + + | Blood - Blood | | (substance) | + + + + + + + | Performing | Address | City/State/Zipcode | Phone Number | | Organization | | | | + + + + + | [facility] | [address] | [place] [address] | | | SERVICES, | [address] | | | | TRANSFUSION MEDICINE | | | | + + + + + ABO & RH TYPE (06/01/2020 10:37 PM PDT) + + + + + + | Component | Value | Ref Range | Performed | Pathologist | | | | | At | Signature | + + + + + + | ABO Group | B | | [facility] | | | | | | LABORATORY | | | | | | SERVICES, | | | | | | TRANSFUSION | | | | | | MEDICINE | | + + + + + + | Rh Type | Positive | | [facility] | | | | | | LABORATORY | | | | | | SERVICES, | | | | | | TRANSFUSION | | | | | | MEDICINE | | + + + + + + + + | Specimen | + + | Blood - Blood | | (substance) | + + + + + + + | Performing | Address | City/State/Zipcode | Phone Number | | Organization | | | | + + + + + | [facility] | [address] | [place] [address] | | | SERVICES, | [address] | | | | TRANSFUSION MEDICINE | | | | + + + + + INR (06/01/2020 10:37 PM PDT) + +-------+ + + + | Component | Value | Ref Range | Performed | Pathologist | | | | | At | Signature | + +-------+ + + + | INR | 1.18 | 0.90 - 1.20 INR | [facility] | | | | | | LABORATORY | | | | | | SERVICES, | | | | | | CORE | | + +-------+ + + + + + | Specimen | + + | Blood - Blood | | (substance) | + + + + + | Narrative | Performed At | + + + | INR Therapeutic ranges for full anticoagulation: INR for Venous | [facility] | | Thromboembolism (2.0 - 3.0) INR INR for most | LABORATORY | | patients with mech. valves (2.5 - 3.5) INR | [facility] | + + + + + + + + | Performing | Address | City/State/Zipcode | Phone Number | | Organization | | | | + + + + + | [facility] | [address] | [place] [address] | | | SERVICESFERMÍN | [address] | | | + + + + + CBC (HEMOGRAM) ONLY (06/01/2020 10:37 PM PDT) + + + + + + | Component | Value | Ref Range | Performed | Pathologist | | | | | At | Signature | + + + + + + | WHITE CELL | 7.07 | 3.50 - 10.80 | [facility] | | | COUNT | | K/cu mm | LABORATORY | | | | | | SERVICES, | | | | | | CORE | | + + + + + + | RED CELL | 3.80 (L) | 4.50 - 6.00 | [facility] | | | COUNT | | M/cu mm | LABORATORY | | | | | | SERVICES, | | | | | | CORE | | + + + + + + | HEMOGLOBIN | 12.0 (L) | 13.5 - 17.5 | [facility] | | | | | g/dL | LABORATORY | | | | | | SERVICES, | | | | | | CORE | | + + + + + + | HEMATOCRIT | 35.1 (L) | 41.0 - 53.0 % | [facility] | | | | | | LABORATORY | | | | | | SERVICES, | | | | | | CORE | | + + + + + + | MCV | 92.4 | 80.0 - 100.0 fL | [facility] | | | | | | LABORATORY | | | | | | SERVICES, | | | | | | CORE | | + + + + + + | MCHC | 34.2 | 32.0 - 36.0 | [facility] | | | | | g/dL | LABORATORY | | | | | | SERVICES, | | | | | | CORE | | + + + + + + | RDW SD | 44.0 | 35.1 - 46.3 fL | [facility] | | | | | | LABORATORY | | | | | | SERVICES, | | | | | | CORE | | + + + + + + | PLATELET | 288 | 150 - 400 K/cu | [facility] | | | COUNT | | mm | LABORATORY | | | | | | SERVICES, | | | | | | CORE | | + + + + + + | MPV | 8.9 (L) | 9.7 - 12.3 fL | [facility] | | | | | | LABORATORY | | | | | | SERVICES, | | | | | | CORE | | + + + + + + | NRBC% | 0.0 | 0.0 - 0.3 % | [facility] | | | | | | LABORATORY | | | | | | SERVICES, | | | | | | CORE | | + + + + + + | NRBC# | 0.00 | 0.00 - 0.02 | [facility] | | | | | K/cu mm | LABORATORY | | | | | | SERVICES, | | | | | | CORE | | + + + + + + + + | Specimen | + + | Blood - Blood | | (substance) | + + + + + + + | Performing | Address | City/State/Zipcode | Phone Number | | Organization | | | | + + + + + | [facility] | [address] | [place] [address] | | | SERVICES, CORE | [address] | | | + + + + + BLOOD BANK HOLD TUBE - DON T PROCESS (06/01/2020 10:37 PM PDT) + + + + + + | Component | Value | Ref Range | Performed | Pathologist | | | | | At | Signature | + + + + + + | SPECIMEN | Sample received with | | [facility] | | | COLLECTED, | adeq label/volume to | | LABORATORY | | | HELD | process | | SERVICES, | | | | | | TRANSFUSION | | | | | | MEDICINE | | + + + + + + + + | Specimen | + + | Blood - Blood | | (substance) | + + + + + + + | Performing | Address | City/State/Zipcode | Phone Number | | Organization | | | | + + + + + | [facility] | [address] | [place] [address] | | | VJ | [address] | | | | TRANSFUSION MEDICINE | | | | + + + + + RAINBOW HOLD TUBE - BLUE TOP (06/01/2020 10:37 PM PDT) + + | Specimen | + + | Blood - Blood | | (substance) | + + + + + + + | Performing | Address | City/State/Zipcode | Phone Number | | Organization | | | | + + + + + | [facility] | [address] | [facility] [place] [address] | | | FERMÍN ZABALA | [address] | | | + + + + + COMPLETE METABOLIC SET (NA,K,CL,CO2,BUN,CREAT,GLUC,CA,AST,ALT,BILI TOTAL,ALK PHOS,ALB,PROT TOTAL) (06/01/2020 10:37 PM PDT) + + + + + + | Component | Value | Ref Range | Performed | Pathologist | | | | | At | Signature | + + + + + + | GLUCOSE, | 103 (H) | 70 - 99 mg/dL | [facility] | | | PLASMA | | | LABORATORY | | | (LAB) | | | SERVICES, | | | | | | CORE | | + + + + + + | BUN, PLASMA | 5 (L) | 6 - 20 mg/dL | [facility] | | | (LAB) | | | LABORATORY | | | | | | SERVICES, | | | | | | CORE | | + + + + + + | CREATININE | 0.65 (L) | 0.70 - 1.30 | [facility] | | | PLASMA | | mg/dL | LABORATORY | | | (LAB) | | | SERVICES, | | | | | | CORE | | + + + + + + | EGFR | >60 | >60 mL/min | [facility] | | | - | | | LABORATORY | | | BRITISH | | | SERVICES, | | | | | | CORE | | + + + + + + | EGFR NON | >60 | >60 mL/min | [facility] | | | -FÉLIX | | | LABORATORY | | | RICAN | | | SERVICES, | | | | | | CORE | | + + + + + + | SODIUM, | 135 (L) | 136 - 145 | [facility] | | | PLASMA | | mmol/L | LABORATORY | | | (LAB) | | | SERVICES, | | | | | | CORE | | + + + + + + | POTASSIUM, | 3.7 | 3.4 - 5.0 | [facility] | | | PLASMA | | mmol/L | LABORATORY | | | (LAB) | | | SERVICES, | | | | | | CORE | | + + + + + + | CHLORIDE, | 101 | 97 - 108 mmol/L | [facility] | | | PLASMA | | | LABORATORY | | | (LAB) | | | SERVICES, | | | | | | CORE | | + + + + + + | TOTAL CO2, | 30 | 21 - 32 mmol/L | [facility] | | | PLASMA | | | LABORATORY | | | (LAB) | | | SERVICES, | | | | | | CORE | | + + + + + + | CALCIUM, | 8.4 (L) | 8.6 - 10.2 | [facility] | | | PLASMA | | mg/dL | LABORATORY | | | (LAB) | | | SERVICES, | | | | | | CORE | | + + + + + + | CALCIUM(ALB | 9.7 | 8.6 - 10.2 | [facility] | | | CORRECTED) | | mg/dL | LABORATORY | | | | | | SERVICES, | | | | | | CORE | | + + + + + + | BILIRUBIN | 0.7 | 0.3 - 1.2 mg/dL | [facility] | | | TOTAL | | | LABORATORY | | | | | | SERVICES, | | | | | | CORE | | + + + + + + | TOTAL | 6.9 | 6.4 - 8.2 g/dL | [facility] | | | PROTEIN, | | | LABORATORY | | | PLASMA | | | SERVICES, | | | (LAB) | | | CORE | | + + + + + + | ALBUMIN, | 2.4 (L) | 3.5 - 4.7 g/dL | [facility] | | | PLASMA | | | LABORATORY | | | (LAB) | | | SERVICES, | | | | | | CORE | | + + + + + + | ALK PHOS | 119 | 56 - 119 U/L | [facility] | | | | | | LABORATORY | | | | | | SERVICES, | | | | | | CORE | | + + + + + + | AST(SGOT) | 15 | <=41 U/L | [facility] | | | | | | LABORATORY | | | | | | SERVICES, | | | | | | CORE | | + + + + + + | ALT (SGPT) | 14 | <=60 U/L | [facility] | | | | | | LABORATORY | | | | | | SERVICES, | | | | | | CORE | | + + + + + + | ANION GAP | 4 | 4 - 11 mmol/L | [facility] | | | | | | LABORATORY | | | | | | SERVICES, | | | | | | CORE | | + + + + + + | ANION | 8 | 4 - 11 mmol/L | [facility] | | | GAP(ALB | | | LABORATORY | | | CORRECTED) | | | SERVICES, | | | | | | CORE | | + + + + + + | POTASSIUM | No Hemo | | [facility] | | | CMNT | | | LABORATORY | | | | | | SERVICES, | | | | | | CORE | | + + + + + + | CAMERONI T CMNT | No Hemo | | [facility] | | | | | | LABORATORY | | | | | | SERVICES, | | | | | | CORE | | + + + + + + | AST CMNT | No Hemo | | [facility] | | | | | | LABORATORY | | | | | | SERVICES, | | | | | | CORE | | + + + + + + | BUN/CREATIN | 8 | 8 - 25 | [facility] | | | INE RATIO | | | LABORATORY | | | | | | SERVICES, | | | | | | CORE | | + + + + + + | GLOBULIN | 4.5 (H) | 2.3 - 3.5 gm/dL | [facility] | | | LVL | | | LABORATORY | | | | | | SERVICES, | | | | | | CORE | | + + + + + + | ALBUMIN/SANCHO | 0.5 (L) | 0.7 - 2.8 | [facility] | | | BULIN RATIO | | | LABORATORY | | | | | | SERVICES, | | | | | | CORE | | + + + + + + + + | Specimen | + + | Blood - Blood | | (substance) | + + + + + | Narrative | Performed At | + + + | GFR is estimated using the MDRD equation recommended by the National | [facility] | | Kidney Disease Education Program. Estimated GFR Interpretive | LABORATORY | | Information: <60 mL/min/1.73 sq m Chronic Kidney | SERVICES, CORE | | Disease <15 mL/min/1.73 sq m Kidney Failure | | | Estimated GFR greater than 60 mL/min/1.73 sq m is of limited clinical | | | value. The MDRD equation is not valid in the following situations: | | | - Patients under 18 years of age - Severe malnutrition or obesity | | | - Vegetarian diet - Rapidly changing kidney function - Amputees, | | | paraplegics, or other muscle-wasting diseases | | + + + + + + + + | Performing | Address | City/State/Zipcode | Phone Number | | Organization | | | | + + + + + | [facility] | [address] | [place] [address] | | | SERVICES, [place] | [address] | | | + + + + + ED INFORMATION EXCHANGE (06/01/2020 10:14 PM PDT) + + | Specimen | + + | | + + + + + | Narrative | Performed At | + + + | COLLECTIVE?NOTIFICATION?06/01/2020 22:14?DIANE AN?MRN: | COLLECTIVE | | [id number] Criteria Met 5 Visits In 12 Months Security | MEDICAL | | and Safety No recent Security Events currently on file ED Care | TECHNOLOGIES | | Guidelines There are currently no ED Care Guidelines for this | | | patient. Please check your facility's medical records system. | | | Prescription Drug Report (12 Mo.) Rx Details Fill Date Drug | | | Description Qty. Prescriber CS MED 2020-04-19 GABAPENTIN 600 MG | | | TABLET 60 RIO HUERTA MD 0 2020-03-18 GABAPENTIN 600 MG | | | TABLET 60 RIO HUERTA MD 0 2020-02-18 GABAPENTIN 600 MG | | | TABLET 60 RIO HUERTA MD 0 2020-01-19 GABAPENTIN 600 MG | | | TABLET 60 RIO HUERTA MD 0 2019-12-18 GABAPENTIN 600 MG | | | TABLET 60 RIO HUERTA MD 0 2019-11-18 GABAPENTIN 600 MG | | | TABLET 60 RIO HUERTA MD 0 2019-09-17 OXYCODONE HCL 5 MG | | | TABLET 30 [facility] 2 28.125 Rx Summary Metric Count CS II-V | | | Rx 1 CS-II Rx 1 Quantity Dispensed 390 [facility] 2 | | | Unique Pharmacies 2 Benzos 0 Opioids 1 Long Acting Opioids 0 | | | E.D. Visit Count (12 mo.) Facility Visits [facility] | | [facility] 2 [facility] 3 Total 5 Note: | | | Visits indicate total known visits. Recent Emergency Department | | | Visit Summary Date Facility City State Type Diagnoses or Chief | | | Complaint Jun 01, 2020 [facility] [place] | | | [place] Emergency 10,151. Righrt ankle fracture and dislocation | | | Jun 01, 2020 [facility]. [place] Emergency Chief | | | Complaint: LEG PAIN/ NON INJURY May 24, 2020 [facility] | | | 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 Emergency 10,151. cellulitis large ulcer, left lower | | | extremity 18,400. Other specified soft tissue disorders | | | 18,400. Infection and inflammatory reaction due to other internal ort | | | 18,400. Cutaneous abscess, unspecified Sep 03, 2019 [facility] | | | 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 Internal Medicine 18,400. Cutaneous abscess, | | | unspecified 18,400. Other specified soft tissue disorders | | | 18,400. Osteomyelitis, unspecified 18,400. Infection and | | | inflammatory reaction due to other internal ort Care Team | | | Provider Specialty Phone Fax Service Dates Unknown Senior Living | | | Facility Current RIO HUERTA , | | | Family Medicine [phone] Sep 11, 2018 - | | | Current Collective Portal This patient has registered at the | | | [facility] Emergency Department For more | | | information visit: | | | [email or web address] | | | [id number] PLEASE NOTE: 1. Any care recommendations and | | | other clinical information are provided as guidelines or for | | | historical purposes only, and providers should exercise their own | | | clinical judgment when providing care. 2. You may only use this | | | information for purposes of treatment, payment or health care | | | operations activities, and subject to the limitations of applicable | | | Collective Policies. 3. You should consult directly with the | | | organization that provided a care guideline or other clinical | | | history with any questions about additional information or accuracy | | | or completeness of information provided. ? 2020 [employer] | | | [employer] - [email or web address] | | + + + + + | Procedure Note | + + | Service Account, Rtf Results Inbound - 06/01/2020 10:16 PM PDT Formatting of this | | note might be different from the original.COLLECTIVE?NOTIFICATION?06/01/2020 | | 22:14?ALLEN DIANE? Met 5 Visits In 12 MonthsSecurity and | | SafetyNo recent Security Events currently on fileED Care GuidelinesThere are currently | | no ED Care Guidelines for this patient. Please check your facility's medical records | | system.Prescription Drug Report (12 Mo.)Rx DetailsFill Date Drug Description Qty. | | Prescriber CS MED 2020-04-19 GABAPENTIN 600 MG TABLET 60 RIO HUERTA MD 0 | | 2020-03-18 GABAPENTIN 600 MG TABLET 60 RIO HUERTA MD 0 2020-02-18 GABAPENTIN 600 | | MG TABLET 60 RIO HUERTA MD 0 2020-01-19 GABAPENTIN 600 MG TABLET 60 RIO | | MD DEANNA 0 2019-12-18 GABAPENTIN 600 MG TABLET 60 RIO HUERTA MD 0 | | 2019-11-18 GABAPENTIN 600 MG TABLET 60 RIO HUERTA MD 0 2019-09-17 OXYCODONE HCL | | 5 MG TABLET 30 [facility] 2 28.125 Rx SummaryMetric Count CS II-V Rx 1 CS-II Rx 1 | | Quantity Dispensed 390 [facility] Pres[facility] 2 [facility] Pharmacies 2 Benzos 0 Opioids 1 Long | | Acting Opioids 0 E.D. Visit Count (12 mo.)Facility Visits [facility] | | [place] 2 [facility] 3 Total 5 Note: Visits indicate total known | | visits. Recent Emergency Department Visit SummaryDate Facility [facility] State Type | | Diagnoses or Chief Complaint Jun 01, 2020 [facility] [place] | | Emergency 10,151. Righrt ankle fracture and dislocation Jun 01, 2020 [facility] | | [place] Emergency Chief Complaint: LEG PAIN/ NON INJURY May 24, 2020 [facility] | | 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 Emergency 10,151. cellulitis large | | ulcer, left lower extremity 18,400. Other specified soft tissue disorders 18,400. | | Infection and inflammatory reaction due to other internal ort 18,400. Cutaneous | | abscess, unspecified Sep 03, 2019 [facility] 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 [place] | | Internal Medicine 18,400. Cutaneous abscess, unspecified 18,400. Other specified | | soft tissue disorders 18,400. Osteomyelitis, unspecified 18,400. Infection and | | inflammatory reaction due to other internal ort Care TeamProvider Specialty Phone Fax | | Service Dates Unknown Senior Living Facility Current | | RIO HUERTA MD Family Medicine Sep 11, 2018 - | | Current [employer] PortalThis patient has registered at the [facility] | [facility] Emergency Department For more information visit: | | [email or web address] PLEASE | | NOTE: 1. Any care recommendations and other clinical information are provided as | | guidelines or for historical purposes only, and providers should exercise their own | | clinical judgment when providing care. 2. You may only use this information for | | purposes of treatment, payment or health care operations activities, and subject to the | | limitations of applicable [employer] Policies. 3. You should consult directly with | | the organization that provided a care guideline or other clinical history with any | | questions about additional information or accuracy or completeness of information | | provided.? 2019 [place] [facility]. - [email or web address] | |Jun 01, 2020 [facility] [place] Emergency | | 10,151. Righrt ankle fracture and dislocation | | | |Jun 01, 2020 [facility] [place] Emergency Chief Complaint: LEG PAIN/ NON INJURY | |May 24, 2020 [facility] [place] [place] Emergency | | Localized edema | | Heart failure, unspecified | | Type 2 diabetes mellitus with diabetic polyneuropathy | | Pain in right lower leg | | Hypertensive heart disease with heart failure | | senior living (current) use of aspirin | | Other fpc (current) drug therapy | | Unspecified atrial fibrillation | | | |Sep 03, 2019 [facility] [place] Emergency | | 10,151. cellulitis large ulcer, left lower extremity | | 18,400. Other specified soft tissue disorders | | 18,400. Infection and inflammatory reaction due to other internal ort | | 18,400. Cutaneous abscess, unspecified | | | |Sep 03, 2019 [facility] [place] 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 [place] Internal Medicine | | 18,400. Cutaneous abscess, unspecified | | 18,400. Other specified soft tissue disorders | | 18,400. Osteomyelitis, unspecified | | 18,400. Infection and inflammatory reaction due to other internal ort | | | | | | | |Care Team | |Provider Specialty Phone Fax Service Dates | |Unknown Senior Living Facility Current | |RIO HUERTA MD Family Medicine Sep 11, 2018 - Current | | | |[employer] | |This patient has registered at the [facility] | |For more information visit: [email or web address] | |PLEASE NOTE: | | 1. Any care recommendations and other clinical information are provided as guidelines or for historical purposes only, and providers should exercise their own clinical judgment whe n providing care. | | 2. You may only use this information for purposes of treatment, payment or health care o perations activities, and subject to the limitations of applicable [employer] Polic[employer]. | | 3. You should consult directly with the organization that provided a care guideline or o ther clinical history with any questions about additional information or accuracy or complet eness of information provided. | | | |? 2020 [place] [facility]. 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 | + + | Atrial fibrillation, unspecified type (HCC) | + + | Essential hypertension | + + | "Cirrhosis, 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 | + + | Closed fracture dislocation of ankle joint, right, initial encounter | + + documented in this encounter Administered Medications + +--------+ + +------+------+ | Medication Order | MAR | Action | Dose | Rate | Site | | | Action | Date | | | | + +--------+ + +------+------+ | acetaminophen (TYLENOL) tablet | Given | 06/11/20 | 1,000 mg | | | | 1,000 mg 1,000 mg, oral, THREE | | 20 9:20 | | | | | TIMES DAILY, First dose on Sun | | AM PDT | | | | | 06/02/20 at 0900, Until | | | | | | | Discontinued | | | | | | + +--------+ + +------+------+ +-------+ + +---+---+ | Given | 06/10/20 | 1,000 mg | | | | | 20 9:37 | | | | | | PM PDT | | | | +-------+ + +---+---+ | Given | 06/10/20 | 1,000 mg | | | | | 20 4:39 | | | | | | PM PDT | | | | +-------+ + +---+---+ +---+---+ | | | +---+---+ + +-------+ +-------+---+---+ | apixaban (ELIQUIS) tablet 10 mg | Given | 06/11/20 | 10 mg | | | | 10 mg, oral, TWICE DAILY, 14 | | 20 9:20 | | | | | doses, First dose on Sun06/09/20 | | AM PDT | | | | | at 0945, Last dose on Sun06/15/20 | | | | | | | at 2100 | | | | | | + +-------+ +-------+---+---+ +-------+ +-------+---+---+ | Given | 06/10/20 | 10 mg | | | | | 20 9:37 | | | | | | PM PDT | | | | +-------+ +-------+---+---+ | Given | 06/10/20 | 10 mg | | | | | 20 9:46 | | | | | | AM PDT | | | | +-------+ +-------+---+---+ + +---+ | | | + +---+ | apixaban (ELIQUIS) tablet 5 mg | | | 5 mg, oral, TWICE DAILY, First | | | dose on Sun06/16/20 at 0900, Until | | | Discontinued | | + +---+ | | | + +---+ + +---------+ +-----+---+---+ | ceFAZolin IV 2 gram in dextrose | New Bag | 06/11/20 | 2 g | | | | (RTU) 2 g, intravenous, EVERY 8 | | 20 2:43 | | | | | HOURS, 9 doses, First dose on | | AM PDT | | | | | 06/09/20 at 1100, Last dose on | | | | | | | 06/12/20 at 0300 | | | | | | + +---------+ +-----+---+---+ +---------+ +-----+---+---+ | New Bag | 06/10/20 | 2 g | | | | | 20 7:24 | | | | | | PM PDT | | | | +---------+ +-----+---+---+ | New Bag | 06/10/20 | 2 g | | | | | 20 10:51 | | | | | | AM PDT | | | | +---------+ +-----+---+---+ +---+---+ | | | +---+---+ + +-------+ +--------+---+---+ | cyanocobalamin (VITAMIN B-12) | Given | 06/11/20 | 2,000 | | | | tablet 2,000 mcg 2,000 mcg, | | 20 9:20 | mcg | | | | oral, DAILY, First dose on Sun | | AM PDT | | | | | 06/06/20 at 1700, Until | | | | | | | Discontinued | | | | | | + +-------+ +--------+---+---+ +-------+ +--------+---+---+ | Given | 06/10/20 | 2,000 | | | | | 20 9:44 | mcg | | | | | AM PDT | | | | +-------+ +--------+---+---+ | Given | 06/09/20 | 2,000 | | | | | 20 9:49 | mcg | | | | | AM PDT | | | | +-------+ +--------+---+---+ +---+---+ | | | +---+---+ + +-------+ +---------+---+---+ | digoxin (LANOXIN) tablet 125 | Given | 06/11/20 | 125 mcg | | | | mcg 125 mcg, oral, DAILY, First | | 20 9:20 | | | | | dose on Sun06/02/20 at 0900, | | AM PDT | | | | | Until Discontinued | | | | | | + +-------+ +---------+---+---+ +-------+ +---------+---+---+ | Given | 06/10/20 | 125 mcg | | | | | 20 9:46 | | | | | | AM PDT | | | | +-------+ +---------+---+---+ | Given | 06/09/20 | 125 mcg | | | | | 20 9:49 | | | | | | AM PDT | | | | +-------+ +---------+---+---+ +---+---+ | | | +---+---+ + +-------+ +--------+---+---+ | fentaNYL (SUBLIMAZE) injection | Given | 06/08/20 | 25 mcg | | | | 25-50 mcg 25-50 mcg, | | 20 11:30 | | | | | intravenous, POSTPROCEDURE PRN, 8 | | AM PDT | | | | | doses, Starting Sun06/08/20 at | | | | | | | 0926, Until Sun06/08/20 at 1228, | | | | | | | severe pain while in Phase I | | | | | | | Recovery | | | | | | + +-------+ +--------+---+---+ +---+---+ | | | +---+---+ + +-------+ +------+---+---+ | folic acid (FOLVITE) tablet 1 | Given | 06/04/20 | 1 mg | | | | mg 1 mg, oral, DAILY, 3 doses, | | 20 9:59 | | | | | First dose on Sun06/02/20 at | | AM PDT | | | | | 0900, Last dose on Sun06/04/20 at | | | | | | | 0900 | | | | | | + +-------+ +------+---+---+ +-------+ +------+---+---+ | Given | 06/03/20 | 1 mg | | | | | 20 8:53 | | | | | | AM PDT | | | | +-------+ +------+---+---+ +---+---+ | | | +---+---+ + +-------+ +-------+---+---+ | furosemide (LASIX) tablet 20 mg | Given | 06/10/20 | 20 mg | | | | 20 mg, oral, DAILY, First dose | | 20 9:45 | | | | | (after last modification) on Wed | | AM PDT | | | | | 06/09/20 at 0900, Until | | | | | | | Discontinued | | | | | | + +-------+ +-------+---+---+ +-------+ +-------+---+---+ | Given | 06/09/20 | 20 mg | | | | | 20 9:49 | | | | | | AM PDT | | | | +-------+ +-------+---+---+ +---+---+ | | | +---+---+ + +-------+ +-------+---+---+ | furosemide (LASIX) tablet 40 mg | Given | 06/07/20 | 40 mg | | | | 40 mg, oral, DAILY, First dose | | 20 9:09 | | | | | on 06/05/20 at 1700, Until | | AM PDT | | | | | Discontinued | | | | | | + +-------+ +-------+---+---+ +-------+ +-------+---+---+ | Given | 06/06/20 | 40 mg | | | | | 20 9:35 | | | | | | AM PDT | | | | +-------+ +-------+---+---+ | Given | 06/05/20 | 40 mg | | | | | 20 6:00 | | | | | | PM PDT | | | | +-------+ +-------+---+---+ +---+---+ | | | +---+---+ + +-------+ +--------+---+---+ | gabapentin (NEURONTIN) capsule | Given | 06/11/20 | 600 mg | | | | 600 mg 600 mg, oral, THREE TIMES | | 20 9:22 | | | | | DAILY, First dose on Sun06/02/20 | | AM PDT | | | | | at 0900, Until Discontinued | | | | | | + +-------+ +--------+---+---+ +-------+ +--------+---+---+ | Given | 06/10/20 | 600 mg | | | | | 20 9:37 | | | | | | PM PDT | | | | +-------+ +--------+---+---+ | Given | 06/10/20 | 600 mg | | | | | 20 4:39 | | | | | | PM PDT | | | | +-------+ +--------+---+---+ +---+---+ | | | +---+---+ + + + +--------+---+---+ | heparin bolus from continuous | Bolus | 06/03/20 | 3,450 | | | | infusion 3,450 Units | from | 20 11:00 | Units | | | | intravenous, BOLUS PRN, Starting | Same Bag | AM PDT | | | | | 06/02/20 at 1830, Until Wed | | | | | | | 06/09/20 at 0925, heparin level | | | | | | | 0.1-0.21 units/mL | | | | | | + + + +--------+---+---+ +---+---+ | | | +---+---+ + + + +--------+---+---+ | heparin bolus from continuous | Bolus | 06/02/20 | 6,900 | | | | infusion 6,900 Units | from | 20 7:49 | Units | | | | intravenous, ONCE, 1 dose, Wed | Same Bag | PM PDT | | | | | 06/02/20 at 1915 | | | | | | + + + +--------+---+---+ +---+---+ | | | +---+---+ + + + + +-------+---+ | heparin in D5W 25,000 Units/250 | Rate/Dos | 06/09/20 | 1,550 | 15.5 | | | mL (100 Units/mL) IV infusion | e Verify | 20 4:12 | Units/hr | mL/hr | | | (RTU) 1-2,500 Units/hr (0.01-25 | | AM PDT | | | | | mL/hr), intravenous, CONTINUOUS, | | | | | | | Starting Sun06/02/20 at 1915, | | | | | | | Until Sun06/09/20 at 0925 | | | | | | + + + + +-------+---+ + + + +-------+---+ | Rate/Dose Verify | 06/08/20 | 1,550 | 15.5 | | | | 20 11:48 | Units/hr | mL/hr | | | | PM PDT | | | | + + + +-------+---+ | New Bag | 06/08/20 | 1,550 | 15.5 | | | | 20 6:06 | Units/hr | mL/hr | | | | PM PDT | | | | + + + +-------+---+ +---+---+ | | | +---+---+ + +-------+ +---+---+---+ | hydrocortisone 1 % cream | Given | 06/09/20 | | | | | topical, THREE TIMES DAILY, First | | 20 9:50 | | | | | dose (after last modification) | | AM PDT | | | | | on Shania 06/03/20 at 1930, Until | | | | | | | Discontinued | | | | | | + +-------+ +---+---+---+ +-------+ +---+---+---+ | Given | 06/08/20 | | | | | | 20 6:13 | | | | | | PM PDT | | | | +-------+ +---+---+---+ | Given | 06/07/20 | | | | | | 20 10:52 | | | | | | PM PDT | | | | +-------+ +---+---+---+ +---+---+ | | | +---+---+ + +-------+ +-------+---+---+ | ketorolac (TORADOL) injection | Given | 06/08/20 | 15 mg | | | | 15 mg 15 mg, intravenous, ONCE, | | 20 11:45 | | | | | 1 dose, [facility] 06/08/20 at 1145 | | AM PDT | | | | + +-------+ +-------+---+---+ + +---+ | | | + +---+ | ketorolac (TORADOL) injection | | | 1 dose, Starting Sun06/08/20 at | | | 1144, Until Sun06/08/20 at 1145 | | + +---+ | | | + +---+ + +-------+ +--------+---+---+ | LORazepam (ATIVAN) injection | Given | 06/02/20 | 0.5 mg | | | | 0.5 mg 0.5 mg, intravenous, | | 20 12:21 | | | | | ONCE, 1 dose, 06/02/20 at 0030 | | AM PDT | | | | + +-------+ +--------+---+---+ +---+---+ | | | +---+---+ + +-------+ +--------+---+---+ | LORazepam (ATIVAN) injection | Given | 06/02/20 | 0.5 mg | | | | 0.5 mg 0.5 mg, intravenous, | | 20 12:50 | | | | | ONCE, 1 dose, Sun06/02/20 at 0115 | | AM PDT | | | | + +-------+ +--------+---+---+ +---+---+ | | | +---+---+ + +-------+ +------+---+---+ | melatonin tablet 3 mg 3 mg, | Given | 06/10/20 | 3 mg | | | | oral, EVERY EVENING, First dose | | 20 9:37 | | | | | on Sun06/02/20 at 2100, Until | | PM PDT | | | | | Discontinued | | | | | | + +-------+ +------+---+---+ +-------+ +------+---+---+ | Given | 06/09/20 | 3 mg | | | | | 20 9:21 | | | | | | PM PDT | | | | +-------+ +------+---+---+ | Given | 06/08/20 | 3 mg | | | | | 20 9:33 | | | | | | PM PDT | | | | +-------+ +------+---+---+ + +---+ | | | + +---+ | menthol-zinc oxide (CALAZIME) | | | topical paste 0.2%-16.5% | | | topical, THREE TIMES DAILY | | | NEEDED, Starting Sun06/03/20 at | | | 1254, Until Sun06/11/20 at 1625, | | | skin irritation/breakdown | | + +---+ | | | + +---+ + +-------+ + +---+---+ | multivitamin (THERA VITAMIN) 1 | Given | 06/04/20 | 1 tablet | | | | tablet 1 tablet, oral, DAILY, 3 | | 20 9:59 | | | | | doses, First dose on Sun06/02/20 | | AM PDT | | | | | at 0900, Last dose on Sun06/04/20 | | | | | | | at 0900 | | | | | | + +-------+ + +---+---+ +-------+ + +---+---+ | Given | 06/03/20 | 1 tablet | | | | | 20 8:52 | | | | | | AM PDT | | | | +-------+ + +---+---+ +---+---+ | | | +---+---+ + +-------+ + +---+---+ | multivitamin-iron (ONE DAILY | Given | 06/11/20 | 1 tablet | | | | with IRON) tablet 1 tablet 1 | | 20 9:22 | | | | | tablet, oral, DAILY, First dose | | AM PDT | | | | | on Sun06/02/20 at 0900, Until | | | | | | | Discontinued | | | | | | + +-------+ + +---+---+ +-------+ + +---+---+ | Given | 06/10/20 | 1 tablet | | | | | 20 9:44 | | | | | | AM PDT | | | | +-------+ + +---+---+ | Given | 06/09/20 | 1 tablet | | | | | 20 9:49 | | | | | | AM PDT | | | | +-------+ + +---+---+ +---+---+ | | | +---+---+ + +-------+ +-------+---+---+ | omeprazole (PRILOSEC) capsule | Given | 06/11/20 | 20 mg | | | | 20 mg 20 mg, oral, TWICE DAILY | | 20 6:41 | | | | | BEFORE MEALS, First dose on Sun | | AM PDT | | | | | 06/02/20 at 0645, Until | | | | | | | Discontinued | | | | | | + +-------+ +-------+---+---+ +-------+ +-------+---+---+ | Given | 06/10/20 | 20 mg | | | | | 20 4:39 | | | | | | PM PDT | | | | +-------+ +-------+---+---+ | Given | 06/10/20 | 20 mg | | | | | 20 5:50 | | | | | | AM PDT | | | | +-------+ +-------+---+---+ +---+---+ | | | +---+---+ + +-------+ +------+---+---+ | oxyCODONE (immediate release) | Given | 06/11/20 | 5 mg | | | | (ROXICODONE) tablet 5-10 mg 5-10 | | 20 2:43 | | | | | mg, oral, EVERY 4 HOURS | | AM PDT | | | | | NEEDED, Starting Sun06/02/20 at | | | | | | | 0605, Until Sun06/11/20 at 1625, | | | | | | | moderate pain, unresponsive to | | | | | | | non-opioid medication | | | | | | + +-------+ +------+---+---+ +-------+ +------+---+---+ | Given | 06/10/20 | 5 mg | | | | | 20 9:37 | | | | | | PM PDT | | | | +-------+ +------+---+---+ | Given | 06/10/20 | 5 mg | | | | | 20 4:39 | | | | | | PM PDT | | | | +-------+ +------+---+---+ +---+---+ | | | +---+---+ + +---------+ +--------+---+---+ | perflutren lipid microspheres | IV Push | 06/02/20 | 1.5 mL | | | | (DEFINITY) injection | | 20 5:03 | | | | | intravenous, PROCEDURE ONCE, 1 | | PM PDT | | | | | dose, 06/02/20 at 1700 | | | | | | + +---------+ +--------+---+---+ +---+---+ | | | +---+---+ + +-------+ +---------+---+---+ | PHENYLEPHrine 100 mcg/mL IV | Given | 06/08/20 | 100 mcg | | | | syringe 50 mcg, intravenous, | | 20 11:07 | | | | | POSTPROCEDURE PRN, 4 doses, | | AM PDT | | | | | Starting Sun06/08/20 at 0926, | | | | | | | Until Sun06/08/20 at 1228, | | | | | | | systolic blood pressure less than | | | | | | | 90 mmHg refractory to IV fluids. | | | | | | + +-------+ +---------+---+---+ +---+---+ | | | +---+---+ + +-------+ +------+---+---+ | polyethylene glycol (MIRALAX) | Given | 06/10/20 | 17 g | | | | packet 17 g 17 g, oral, DAILY, | | 20 9:42 | | | | | First dose on Sun06/02/20 at | | AM PDT | | | | | 0900, Until Discontinued | | | | | | + +-------+ +------+---+---+ +-------+ +------+---+---+ | Given | 06/05/20 | 17 g | | | | | 20 9:37 | | | | | | AM PDT | | | | +-------+ +------+---+---+ | Given | 06/03/20 | 17 g | | | | | 20 8:53 | | | | | | AM PDT | | | | +-------+ +------+---+---+ +---+---+ | | | +---+---+ + +-------+ +--------+---+---+ | potassium chloride (JACQUES-CON Joselito) | Given | 06/06/20 | 20 mEq | | | | tablet 20 mEq 20 mEq, oral, | | 20 9:50 | | | | | TWICE DAILY, 2 doses, First dose | | PM PDT | | | | | on 06/06/20 at 1400, Last dose | | | | | | | on 06/06/20 at 2100 | | | | | | + +-------+ +--------+---+---+ +-------+ +--------+---+---+ | Given | 06/06/20 | 20 mEq | | | | | 20 4:20 | | | | | | PM PDT | | | | +-------+ +--------+---+---+ +---+---+ | | | +---+---+ + +-------+ +--------+---+---+ | potassium chloride (JACQUES-CON Joselito) | Given | 06/11/20 | 20 mEq | | | | tablet 20 mEq 20 mEq, oral, | | 20 9:23 | | | | | DAILY, First dose on Sun06/07/20 | | AM PDT | | | | | at 0900, Until Discontinued | | | | | | + +-------+ +--------+---+---+ +-------+ +--------+---+---+ | Given | 06/10/20 | 20 mEq | | | | | 20 9:46 | | | | | | AM PDT | | | | +-------+ +--------+---+---+ | Given | 06/09/20 | 20 mEq | | | | | 20 9:48 | | | | | | AM PDT | | | | +-------+ +--------+---+---+ +---+---+ | | | +---+---+ + +-------+ +-------+---+ + | propofoL (DIPRIVAN) injection | Given | 06/02/20 | 80 mg | | Left | | intravenous, INTRAPROCEDURE PRN, | | 20 12:53 | | | Antecubi | | Starting Sun06/02/20 at 0053, | | AM PDT | | | leigh ann | | Until Sun06/02/20 at 005 | | | | | | + +-------+ +-------+---+ + +---+---+ | | | +---+---+ + +-------+ +-------+---+---+ | propofoL (DIPRIVAN) injection | Given | 06/02/20 | 20 mg | | | | intravenous, INTRAPROCEDURE PRN, | | 20 1:02 | | | | | Starting Sun06/02/20 at 0057, | | AM PDT | | | | | Until Sun06/02/20 at 0102 | | | | | | + +-------+ +-------+---+---+ +-------+ +-------+---+---+ | Given | 06/02/20 | 40 mg | | | | | 20 12:57 | | | | | | AM PDT | | | | +-------+ +-------+---+---+ +---+---+ | | | +---+---+ + +-------+ +---------+---+---+ | senna-docusate (SENOKOT S) | Given | 06/10/20 | 2 | | | | 8.6-50 mg 2 tablet 2 tablet, | | 20 9:46 | tablets | | | | oral, TWICE DAILY, First dose on | | AM PDT | | | | | 06/02/20 at 0900, Until | | | | | | | Discontinued | | | | | | + +-------+ +---------+---+---+ +-------+ +---------+---+---+ | Given | 06/09/20 | 2 | | | | | 20 9:21 | tablets | | | | | PM PDT | | | | +-------+ +---------+---+---+ | Given | 06/08/20 | 2 | | | | | 20 9:33 | tablets | | | | | PM PDT | | | | +-------+ +---------+---+---+ +---+---+ | | | +---+---+ + +-------+ +--------+---+---+ | tamsulosin (FLOMAX) capsule 0.4 | Given | 06/11/20 | 0.4 mg | | | | mg 0.4 mg, oral, DAILY, First | | 20 9:24 | | | | | dose on Sun06/02/20 at 0900, | | AM PDT | | | | | Until Discontinued | | | | | | + +-------+ +--------+---+---+ +-------+ +--------+---+---+ | Given | 06/10/20 | 0.4 mg | | | | | 20 9:46 | | | | | | AM PDT | | | | +-------+ +--------+---+---+ | Given | 06/09/20 | 0.4 mg | | | | | 20 9:49 | | | | | | AM PDT | | | | +-------+ +--------+---+---+ +---+---+ | | | +---+---+ + +-------+ +--------+---+---+ | thiamine tablet 100 mg 100 mg, | Given | 06/04/20 | 100 mg | | | | oral, DAILY, 3 doses, First dose | | 20 9:59 | | | | | on Sun06/02/20 at 0900, Last | | AM PDT | | | | | dose on Sun06/04/20 at 0900 | | | | | | + +-------+ +--------+---+---+ +-------+ +--------+---+---+ | Given | 06/03/20 | 100 mg | | | | | 20 8:53 | | | | | | AM PDT | | | | +-------+ +--------+---+---+ +---+---+ | | | +---+---+ documented in this encounter Additional Health Concerns + [...]
--- OUTSIDE RECORDS SUMMARY | ~2020-08-04 | XMS | Encounter Summary ---
Demographics + + + | Address | [address] | | | [place] [address] | + + + | Home Phone | | + + + | Preferred Language | Unknown | + + + | Marital Status | Single | + + + | Restorationism Affiliation | NRP | + + + | Race | White | + + + | Ethnic Group | Not or | + + + Author + + + | Organization | Unknown | + + + | Address | [...] Team Providers + +------+ + | Care Child Development Instructor Name | Role | Phone | + +------+ + | Dustin Perez MD | PCP | | + +------+ + Encounter Details +--------+--------+ + + + | Date | Type | Department | Care Team | Description | +--------+--------+ + + + | 10/14/ | Travel | | | | | 2019 | | | | | +--------+--------+ + + + Social History + +-------+ +--------+------+ | Tobacco Use | Types | Packs/Day | Years | Date | | | | | Used | | + +-------+ +--------+------+ | Never Smoker | | | | | + +-------+ +--------+------+ + +---+---+---+ | Smokeless Tobacco: | | | | | Never Used | | | | + +---+---+---+ + + + | Sex Assigned at [...]
--- OUTSIDE RECORDS SUMMARY | ~2020-08-04 | XMS | Encounter Summary ---
Demographics + + + | Address | [address] | | | [place] [address] | + + + | Home Phone | | + + + | Preferred Language | Unknown | + + + | Marital Status | Single | + + + | Yarsani Affiliation | NRP | + + + | Race | White | + + + | Ethnic Group | Not or | + + + Author + + + | Author | [facility] | + + + | Organization | [facility] | + + + | Address | [...] Team Providers + +------+ + | Care Medical Corps Officer Name | Role | Phone | + +------+ + | Dustin Perez MD | PCP | | + +------+ + Encounter Details +--------+ + + + + | Date | Type | Department | Care Team | Description | +--------+ + + + + | 06/11/ | Patient | [facility] | Ld Rodriguez RN | | | 2020 | Outreach | Therapy Services at | [address] | | | | | [facility] | [place], | | | | | [address] | [place] [address] | | | | | [facility] | [phone] | | | | | and Healing, | | | | | | [facility] [address], | | | | | | Floor [place], [place] | | | | | | [address] | | | | | | [phone] | | | +--------+ + + + [...] this encounter Miscellaneous Notes Telephone Encounter - Ld Rodriguez RN - 06/11/2020 11:36 AM PDTSee my IP note on 06/08/20. Will follow-up with Hellen on Sunday06/14/20. Ld Rodriguez BSc, BSN, MANDO [facility] CJR/WALT Pattern Marking Supervisor C: [phone] Pager: [phone] [email or web address] Mail Code: [facility] [id number] documented in this encou nter Plan of Treatment Not on filedocumented as [...]
--- OUTSIDE RECORDS SUMMARY | ~2020-08-04 | XMS | Encounter Summary ---
Demographics + + + | Address | [address] | | | [place] [address] | + + + | Home Phone | | + + + | Preferred Language | Unknown | + + + | Marital Status | Single | + + + | Yarsanism Affiliation | Unknown | + + + | Race | White | + + + | Ethnic Group | Not or | + + + Author + + + | Author | [facility] | | | and [place] | + + + | Organization | [facility] | | | and [...] Team Providers + +------+ + | Care Resource Paraprofessional Name | Role | Phone | + +------+ + | Dustin Perez MD | PCP | | + +------+ + Reason for Visit +--------+--------+ + | Reason | Onset | Comments | | | Date | | +--------+--------+ + | Other | 10/08/ | request lab results | | | 2019 | | +--------+--------+ + Encounter Details +--------+ + + + + | Date | Type | Department | Care Team | Description | +--------+ + + + + | 10/08/ | Telephone | [facility] | Heather Russo | Other (request lab | | 2019 | | INFECTIOUS DISEASE | AZAR De Oliveira | results) | | | | [address] [facility] | | | | | | [facility] [place] | | | | | | [address] | | | | | | [phone] | | | +--------+ + + + [...] Telephone Encounter - Heather Russo RN - 10/08/2019 12:12 PM PSTCalled Beth Jones, spoke to Gustavo nurse regarding ongoing orders. Advised to have creatinine and Vancomyc in trough on SundayOctober 10, per Dr Donovan. Advised Dr Nassar is consumer advocate for [facility], supplied contact phone number. Outside Labs were done 10/03/19, 10/06/19 however they are in process of being entered into [facility]. elephone En counter - Scotty Donovan DO - 10/08/2019 11:18 AM PSTIt looks like the creatinine has increase d from baseline. It does not look like labs have been done twice weekly as requested. I do not see any labs between September 29 and the current results. I am not comfortable increas ing the vancomycin dose. The patient should continue the current treatment regimen and have a repeat creatinine and vancomycin trough level on Wednesday 10/10 with results called to the on-call doc. elephone Enco unter - Heather Russo RN - 10/08/2019 9:42 AM PSTOrdering Provider: Dr Vogel Usual time of vancomycin dose: 8pm Time of Vancomycin Trough Lab : 21:35 Vancomycin Trough Lab results: 10.3 ug/ml Current Vancomycin dose 1500mg IV q/24hrs Creatinine Level 1.27 Have any doses been held/missed:no Managing Facility or Company: [facility] Patient being treated for necrotizing soft tissue infection. Called [facility] to verify, nursing staff states dose is usually given between 8-9pm. Patient next ID clinic fo llow up 10/13/19 Dr Donovan: pls review if any vancomycin dose adjustment is needed. Dr Vogel last note states goal for vanco trough is between 15-20. Electronically signed by Heather Russo RN at 1 12/08/2018 10:02 AM PSTTelephone Encounter - Heather Russo RN - 10/08/2019 9:34 AM PST Working on Iv antibiotics registry: Called [facility] and request this weeks labs results be faxed to ID. Patient on IV V ancomycin through 10/13/2019. 9 :38 AM PSTdocumented in this encounter Plan of Treatment Not on filedocumented as of this encounter Visit Diagnoses Not on filedocumented in this encounter"
--- OUTSIDE RECORDS SUMMARY | ~2020-08-04 | XMS | Encounter Summary ---
Demographics + + + | Address | [address] | | | [place] [address] | + + + | Home Phone | | + + + | Preferred Language | Unknown | + + + | Marital Status | Single | + + + | Church Affiliation | NRP | + + + [...] Team Providers + +------+ + | Care Telecommunications Technician Name | Role | Phone | + [...] | +--------+ + + + + | 06/02/ | Anesthesia | 6A Intra Op [id number] | Raimundo Hernandez, | | | 2020 | Event | [facility] | [address] | | | | | [facility] | [address] | | | | | Hospital Admitting | [place], [place] | | | | | Desk Located on the | [address] | | | | | 9th floor | [phone] | | | | | [place], [place] | | | | | | [address] | Scotty Fuentes MD | | | | | | [address] | | | | | | [facility] | | | | | | [place] [address] | | | | | | [phone] | | | | | | | | +--------+ + + + + Anesthesia Record + + + + + | Procedure Name | Responsible | Anesthesia Start | Anesthesia Stop Time | | | Anesthesiologist | Time | | + + + + + | placement of | Raimundo Hernandez MD | 06/02/20 1307 | 06/02/20 1437 | | calcaneal pin, | | | | | stress exam under | | | | | anesthesia right | | | | | ankle (Right Leg) | | | | + + + + + +----+---+ + + | Da | T | Event | Comment | | te | i | | | | | m | | | | | e | | | +----+---+ + + | 07 | 1 | Eq Check | Anesthesia machine checked Equipment verified | | /2 | 3 | | | | 2/ | 0 | | | | 20 | 0 | | | | 20 | | | | +----+---+ + + | | 1 | Pt. Check | Prior to anesthesia start, pt. Identified, examined, chart | | | 3 | | reviewed, PARQ held, anesthetic plan made or approved by | | | 0 | | attending anesthesiologist. NPO status confirmed as appropriate | | | 0 | | for procedure Preoperative evaluation: unchanged | +----+---+ + + | | 1 | An Start | | | | 3 | | | | | 0 | | | | | 7 | | | +----+---+ + + | | 1 | An Start | | | | 3 | Data | | | | 1 | | | | | 3 | | | +----+---+ + + | | 1 | Vitals | Monitors applied Vital signs checked Patient ready for anesthesia | | | 3 | Checked | | | | 1 | | | | | 5 | | | +----+---+ + + | | 1 | Art Line | | | | 3 | | | | | 2 | | | | | 4 | | | +----+---+ + + | | 1 | ETT | | | | 3 | | | | | 3 | | | | | 0 | | | +----+---+ + + | | 1 | Ready | | | | 3 | | | | | 3 | | | | | 3 | | | +----+---+ + + | | 1 | Abx | | | | 3 | Administere | | | | 4 | d | | | | 5 | | | +----+---+ + + | | 1 | Incision | | | | 3 | | | | | 5 | | | | | 0 | | | +----+---+ + + | | 1 | Surgery end | | | | 4 | | | | | 2 | | | | | 4 | | | +----+---+ + + | | 1 | An Extubate | Neuromuscular function Intact. Pharynx suctioned. Patient obeys | | | 4 | | commands. Adequate pulmonary mechanics. | | | 2 | | | | | 8 | | | +----+---+ + + | | 1 | an stop | | | | 4 | data | | | | 2 | | | | | 9 | | | +----+---+ + + | | 1 | Anesthesia | | | | 4 | End | | | | 3 | | | | | 7 | | | +----+---+ + + | | 1 | PACU Rpt | | | | 4 | Given | | | | 3 | | | | | 7 | | | +----+---+ + + | | 1 | Post-Op | | | | 5 | Page | | | | 0 | | | | | 0 | | | +----+---+ + + +------+ | Meds | +------+ + + + | Name | Total | + + + | propofol | 180 mg | + + + | rocuronium | 60 mg | + + + | PHENYLEPHrine | 100 mcg | + + + | lidocaine 2% | 100 mg | + + + | PHENYLEPHrine INF (25mg/250mL) | 482.72 mcg | + + + | midazolam | 2 mg | + + + | ceFAZolin | 2,000 mg | + + + | sugammadex | 350 mg | + + + | ondansetron | 4 mg | + + + | LR bolus | 500 mL | + + + [...] +--------+ + + + | Wound | 09/03/191907; Yes; Left; foot | 09/03/191907 by | | | | | Gwyn Turpin | | +--------+ + + + | Wound | 09/04/19; 329; Left; heel; | 09/04/19329 by | | | | Ulceration Yonatan Frances RN | | +--------+ + + [...] | 09/04/19; 1018; Elan. ; Left; | 09/04/198 by | | | on | plantar | Cary Jones RN | | +--------+ + + + | Urethr | 09/06/19; 1700; 1; Straight Cath; | 09/06/191699 by Maria Elena | | | al | 14 Fr. | Shania Alcantar RN | | | Tk | | | | | er | | | | +--------+ + + + | PICC - | 09/09/19; 1452; Yenifer Espinosa RN; | 09/09/191451 by | | | | Non-tunneled, Valved; Left; Arm; | Marty Golden RN | | | Single | Basilic; 4 Fr; 1:Red; Yes; | | | | Lumen | [id number] | | | +--------+ + + + | Wound | 09/11/19; 1632; Right; Lower, | 09/11/19 1632 by | | | | Proximal, Anterior; leg; Other | Ty Downs RN | | | | (Comment) (skin tear) | | | +--------+ + + + | Wound | 09/15/19; 1130; Right; Lower, | 09/15/19 1130 by Maria Elena | | | | Anterior; leg; Skin tear | Shania Alcantar RN | | +--------+ + + + | Wound | 06/02/20; 0601; Yes; Right; | 06/02/20 06 by | | | | Lateral; heel; Pressure ulcer | Elsa Romero RN | | +--------+ + + + | Periph | 06/01/20; Other hospital; Left; | 06/01/20 0000 by | 06/05/202343 by | | eral | Forearm; 18 g; 06/05/20; 2343; No | Sveta Snyder RN | Fab Goodman RN | | IV | longer present | | | +--------+ + + + | Periph | 06/02/20; Right; Hand; 18 g; | 06/02/20 0000 by | 06/11/20929 by | | eral | 06/11/20; 929 | Slade Beth RN | Jessica Kee RN | | IV | | | | +--------+ + + + | Arteri | 06/02/20; 1311 (created via | 06/02/20 1311 by | 06/02/20 1500 by | | al | procedure documentation); Raimundo | Raimundo Hernandez MD | Slade Beth RN | | Line | MD David; Standard; Left; | | | | | Radial; 20g; 06/02/20; 1500; Per | | | | | order | | | +--------+ + + + | ETT | 06/02/20; 1330 (created via | 06/02/20 1330 by | 06/02/20 1428 by | | | procedure documentation); John | John Villarreal, | John Villarreal, | | | Sandy Villarreal SUBCONTRACT ADMINISTRATOR; Endotracheal | SUBCONTRACT ADMINISTRATOR | SUBCONTRACT ADMINISTRATOR | | | Tube; 7; Oral; 06/02/20; 1428 | | | +--------+ + + + documented in this encounter Social History + + + +--------+------+ | [...] + + documented as of this encounter [place] Notes Anesthesia Postprocedure Evaluation - John Villarreal CRNA - 06/02/2020 2:38 PM PDTForm atting of this note might be different from the original. Monty An [id number] Vitals Value Taken Time BP 140/62 06/02/2020 2:36 PM Temp Pulse 60 06/02/2020 2:37 PM Resp SpO2 100 % 06/02/2020 2:37 PM Vitals shown include unvalidated device data. EVALUATION VS (BP, HR, RR, SpO2, and Temp) and hydration status are stable ROS including Cards, Resp, Neuro, and GI without evidence of adverse effects No PONV Pain controlled No altered mental status COMPLICATIONS No adverse events nesthesia Proced ure Notes - John Villarreal CRNA - 06/02/2020 1:50 PM PDTAssociated Order(s): ETTAIRWAY MANAGEMENT - ETT Time of Placement: 06/02/2020 1:30 PM Intubation Reason: For surgical procedure Positioning: Supine Location Performed:OR OXYGENATION Patient was preoxygenated Grade: Grade 1 - Ventilated by mask Induction:Routine INTUBATION ATTEMPT 1 Blade Type: Mikhail Blade #: 3 Intubation Adjuncts: w/ Stylet Laryngoscopic View: Grade II ETT DETAILS ETT Type:Standard, Hi-Lo Cuffed Intubation Type: Oral Size: 7 ETT secured with adhesive tape Depth at Lip: 22 cm CONFIRMATION airway not difficult Number of Attempts: 1 Positive for EtCO2:Waveform capnography Breath Sounds: Bilateral and equal NARRATIVE Attending was physically present for the critical portions of the procedure as described in the procedure note Attending/Authorizing Provider: Raimundo Hernandez MD Performing Provider: John Villarreal CRNA nesthesia Procedur e Lamont - Raimundo Hernandez MD - 06/02/2020 1:40 PM PDTAssociated Order(s): Art LineART LI NE Placement Time: 06/02/2020 1:11 PM Inserted: Before Induction 4 minutes to perform. ART Line Type: Standard Type Catheter: Arrowkit Indication: Jdbj-vm-uvve blood pressure monitoring Location Performed: [place] Informed Consent: Included in anesthesia consent Anesthesia Method: Local infiltration with lidocaine PROCEDURE Skin Prep: Chloraprep Protective Barrier: Cap, Mask, Hand scrub, Sterile Gloves and Partially Draped Insertion side: left Insertion Site: radial artery Access device: 20 G Line secured with: tape, dressing applied and statlock ASSESSMENT Number of attempts: 1 Complications: None Assessment: Perfusion checked distal to catheter, Catheter connected to pressure line and f lushed, catheter manually flushed and Tolerated procedure well NARRATIVE Attending was physically present for the critical portions of the procedure as described in the procedure note Attending/Authorizing Provider: Raimundo Hernandez MD Performing Provider: Raimundo Hernandez MD nesthesia Preproce dure Evaluation - Scotty Fuentes MD - 06/02/2020 10:24 AM PDT Monty Nataliya [id number] No Known Allergies NPO: > midnight Last Vitals Temp: 37.2 C (99 F) Heart Rate: 81 Resp: 16 Airway Resp Rate: 21 BP: 142/70 SpO2: 97 % O2 Flow Rate: 4 LPM O2 Delivery Device: None (room air) Preg Status/LMP Patient Active Problem List Diagnosis 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) Abscess Atrial fibrillation (HCC) Alcohol use disorder, mild, in sustained remission, abuse Encounter for long-term (current) use of antibiotics Osteomyelitis of left ankle ([facility]) MRSA (methicillin resistant Staphylococcus aureus) Essential hypertension "Cirrhosis, Laennec's" ([facility]) = per chart Neuropathy, hereditary sensory (per patient w ++ 1st degree FH) Gynecomastia, male (Juni III) Closed trimalleolar fracture of right ankle, initial encounter Atrial fibrillation, unspecified type (HCC) Closed fracture dislocation of ankle joint, right, initial encounter History reviewed. No pertinent past surgical history. Current Medication List Name Sig Last Dose ACETAMINOPHEN 500 MG TABLET Take 2 tablets by mouth three times daily. ASPIRIN 81 MG TABLET,DELAYED RELEASE Take 81 mg by mouth once daily. Indications: atrial fi brillation CEPHALEXIN 500 MG CAPSULE CYANOCOBALAMIN (VIT B-12) 100 MCG TABLET Take 500 mcg by mouth once daily. DIGOXIN 125 MCG (0.125 MG) TABLET Take 125 mcg by mouth once daily. Indications: Ventricula r Rate Control in Atrial Fibrillation Within last 7 days FUROSEMIDE 20 MG TABLET GABAPENTIN 300 MG CAPSULE Take 2 capsules by mouth three times daily. Indications: alcoholi sm GABAPENTIN 600 MG TABLET Take 600 mg by mouth three times daily. Indications: alcoholism Wi thin last 7 days MELATONIN 3 MG TABLET Take 3 mg by mouth once daily in the evening. Within last 7 days MULTIVITAMIN WITH IRON TABLET Take 1 tablet by mouth once daily. OMEPRAZOLE 20 MG CAPSULE,DELAYED RELEASE Take 20 mg by mouth two times daily. Administer 30 to 60 minutes before meals Within last 7 days POLYETHYLENE GLYCOL 3350 17 GRAM ORAL POWDER PACKET Mix 1 packet and take orally once daily . POTASSIUM CHLORIDE ER 20 MEQ TABLET,EXTENDED RELEASE(PART/CRYST) Take 1 tablet by mouth onc e daily. TAMSULOSIN 0.4 MG CAPSULE Take 0.4 mg by mouth once daily. Within last 7 days THIAMINE MONONITRATE (VITAMIN B1) 100 MG TABLET Take 100 mg by mouth once daily. TORSEMIDE 10 MG TABLET Take 10 mg by mouth once daily in the morning. Indications: visible water retention Lab Results Component Value Date RATE 89 06/01/2020 ATRIALRATE 0 06/01/2020 QRS 93 06/01/2020 QT 353 06/01/2020 RAXIS -60 06/01/2020 TAXIS 39 06/01/2020 ANESTHESIA PLAN ASA 3 NPO Status: NPO by protocol ANESTHETIC TECHNIQUE Technique Used: General Induction: Intravenous Comments: GETA; consented for post op block (if possible) only if in extremis (see free betzaida t below) MONITORS/LINES TO BE USED Standard Art line ANESTHETIC CONSIDERATIONS IV when asleep and Large-bore IV access POSTOP PAIN IV analgesics Oral analgesics Postop Block Consent: Consented for postop block BLOOD PRODUCTS T and S INFORMED CONSENT PARQ and risks/benefits of anesthetic plan discussed with Patient Additional Consent Issues: Risk/benefit of blood products discussed Dental Risk discussed with patient PATIENT'S CODE STATUS IN OR FULL - full code COMMENTS Full PARQ with patient regarding general anesthesia. All questions and concerns addressed before the procedure. Patient acknowledged understanding of all risks including but not limited to bruised lip, d ental injury, sore throat, possibility of blood transfusion, addition of invasive lines, str ayden, myocardial infarction, renal injury, other organ damage, , and possibility of aban doning the procedure for any reason. Patient expressed understanding and wishes to proceed. We discussed possible PNB. Given his overlying skin changes as described in the physical ex am (erythema, ulceration in the popliteal fossa on the operative side) and neurologic exam ( significant decreased sensation to the light touch in the lower extremities), the risks of P NB in regard to infection and permament nerve damage likely outweigh the benefit of pain con trol from PNB after the procedure. He has pre-existing neuropathy that limits his mobility a nd function - I discussed how PNB local anesthetics could worsen this. We discussed the poss ibility of postoperative PNB only in the context of severe extremis with exhaustion of other options for pain control. documented in this encounter Miscellaneous Notes PMC/ANE PreOp Note - Raimundo Hernandez MD - 06/02/2020 11:03 AM PDTROS: HPI: 70M here for R ankle ORIF. PMHx is additionally notable for: - Atrial fibrillation, not on anticoagulation - HTN - Cirrhosis, chart history of esophageal varices - Alcohol abuse, 6 beers/day per chart review- re confirmed - HTN - Peripheral neuropathy up to the knee bilaterally - Coagulopathy, likely due to liver disease No reported history of anesthesia related complications. Appropriately NPO. No known drug a llergies. Prior Anesthetic Problems: No Pulmonary: no shortness of breath no cough no wheezing no Recent Respiratory Infection Pt. Has no asthma no COPD No dx of sleep apnea Risk factors for sleep apnea: Age>50 Cardiovascular: TTE 08/26/18 1. Overall left ventricular systolic function is normal with, an EF between 65 - 70 %. 2. The right ventricle is normal in size and function. 3. There is mild bi-atrial enlargement. 4. There are no clinically signficant valvular abnormalities. 5. There are no clinically significant changes noted in comparison to his previous echocard iographic study, done 05/01/17. - palpitations no chest pain no CHF hypertension (recently hypotensive) no CAD Sx no v alvular problems/murmurs arrhythmia Atrial fibrillation/flutter no pacemaker/ICD GI/Hepatic: no GI Bleed no GERD liver disease esophageal varices and cirrhosis Renal: no renal failure electrolyte abnormalities hypokalemia and hyponatremia Endo: Diabetes: type 2 diet no Endocrine Other Neuro/Psych: No Head Conditions No Spine Conditions No Neuromuscular Conditions Psych Disorder: pain Current pain score: 3 Pre-existing neuropathy Musculoskeletal: no arthritis Heme/Onc: Pt. 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 No clott ing disorders No hemoglobin disorders anemia Skin: open wounds Active Skin Infections AutoImmune Disorders: No autoimmune disorders Physical Exam General: Appearance: Age appropriate and No distress LOC: Alert HEENT: Normocephalic/Atraumatic, Oropharyngeal mucosa pink/moist and Normal sclerae/conjunctivae Airway: Dentition: dentition is normal Mallampati: 2 Mouth Opening: > 3 cm TM Distance:> 6 cm C-Spine ROM: Limited extension Neck Anatomy: Normal Jaw Protrusion: Limited (lower incisors only meet upper incisors) Pulmonary: Respiratory: pulmonary exam normal Breath Sounds: breath sounds normal Cardiovascular: Rhythm: Irregular Rate: Normal Heart sounds: murmur Other findings: peripheral edema Cardio vascular comments: 3/6 systolic murmur at LLSB Neuro/Psych: Affect: Normal Cognitive Status: Normal Strength: Decreased Movement: Normal Sensation: Abnormal Comments: Strength intact bilater ally in upper extermities and lower as able to be assessed given splint. Endorses decreased sensation to touch up to the knee on the right and mid-thigh on left lower extremity Skin: Color: , erythema Conditions: Rash Comments: erythema and edema of the LLE up the knee; erythema extending in to the popliteal fossa of the R leg. Rash on the inner thigh of the right lieg documented in this encounter Plan of Treatment Not on filedocumented as of this encounter Procedures + +--------+ + + + | Procedure Name | Priori | Date/Time | Associated Diagnosis | Comments | | | ty | | | | + +--------+ + + + | ANE ETT | Routin | 06/02/2020 | | Results for this | | | e | 1:50 PM | | procedure are in the | | | | PDT | | results section. | + +--------+ + + + | ANE ART LINE | Routin | 06/02/2020 | | Results for this | | | e | 1:40 PM | | procedure are in the | | | | PDT | | results section. | + +--------+ + + + documented in this encounter Results ETT (06/02/2020 1:50 PM PDT) + + + | Narrative | Performed At | + + + | John Villarreal CRNA 06/02/2020 1:51 PM AIRWAY MANAGEMENT | | | - ETT Time of Placement: 06/02/2020 1:30 PM Intubation Reason: For | | | surgical procedure Positioning: Supine Location Performed:OR | | | OXYGENATION Patient was preoxygenated Grade: Grade 1 - Ventilated by | | | mask Induction:Routine INTUBATION ATTEMPT 1 Blade Type: | | | Mikhail Blade #: 3 Intubation Adjuncts: w/ Stylet Laryngoscopic | | | View: Grade II ETT DETAILS ETT Type:Standard, Hi-Lo Cuffed | | | Intubation Type: Oral Size: 7 ETT secured with adhesive tape | | | Depth at Lip: 22 cm CONFIRMATION airway not difficult Number of | | | Attempts: 1 Positive for EtCO2:Waveform capnography Breath Sounds: | | | Bilateral and equal NARRATIVE Attending was physically present | | | for the critical portions of the procedure as described in the | | | procedure note Attending/Authorizing Provider: Raimundo Hernandez MD | | | Performing Provider: John Villarreal CRNA | | + + + Art Line (06/02/2020 1:40 PM PDT) + + + | Narrative | Performed At | + + + | Raimundo Hernandez MD 06/07/2020 3:41 PM ART LINE Placement | | | Time: 06/02/2020 1:11 PM Inserted: Before Induction 4 minutes to | | | perform. ART Line Type: Standard Type Catheter: Arrowkit | | | Indication: [id number]-hm-fkuw blood pressure monitoring Location | | | Performed: [place] Informed Consent: Included in anesthesia consent | | | Anesthesia Method: Local infiltration with lidocaine PROCEDURE | | | Skin Prep: Chloraprep Protective Barrier: Cap, Mask, Hand scrub, | | | Sterile Gloves and Partially Draped Insertion side: left | | | Insertion Site: radial artery Access device: 20 G Line secured | | | with: tape, dressing applied and statlock ASSESSMENT Number of | | | attempts: 1 Complications: None Assessment: Perfusion checked | | | distal to catheter, Catheter connected to pressure line and flushed, | | | catheter manually flushed and Tolerated procedure well | | | NARRATIVE Attending was physically present for the critical portions | | | of the procedure as described in the procedure note | | | Attending/Authorizing Provider: Raimundo Hernandez MD Performing | | | Provider: Raimundo Hernandez MD | | + + + documented in this encounter Visit Diagnoses Not on filedocumented in this encounter Administered Medications + +--------+ + +------+------+ | Medication Order | MAR | Action | Dose | Rate | Site | | | Action | Date | | | | + +--------+ + +------+------+ | ceFAZolin (ANCEF) injection | Given | 06/02/20 | 2,000 mg | | | | INTRAPROCEDURE PRN, Starting Sun | | 20 1:45 | | | | | 06/02/20 at 1345, Until Wed | | PM PDT | | | | | 06/02/20 at 1437 | | | | | | + +--------+ + +------+------+ +---+---+ | | | +---+---+ + + + +---+---------+---+ | lactated ringers (LR) bolus | given by | 06/02/20 | | 0 mL/hr | | | INTRAPROCEDURE CONTINUOUS PRN, | | 20 1:55 | | | | | Starting Sun06/02/20 at 1300, | anesthes | PM PDT | | | | | Until Sun06/02/20 at 1437 | iology | | | | | + + + +---+---------+---+ +---------+ +---+---+---+ | New Bag | 06/02/20 | | | | | | 20 1:00 | | | | | | PM PDT | | | | +---------+ +---+---+---+ +---+---+ | | | +---+---+ + +-------+ +--------+---+---+ | lidocaine (XYLOCAINE MPF) 2 % | Given | 06/02/20 | 100 mg | | | | (20 mg/mL) injection | | 20 1:28 | | | | | INTRAPROCEDURE PRN, Starting Wed | | PM PDT | | | | | 06/02/20 at 1328, Until Wed | | | | | | | 06/02/20 at 1437 | | | | | | + +-------+ +--------+---+---+ +---+---+ | | | +---+---+ + +-------+ +------+---+---+ | midazolam (PF) (VERSED) | Given | 06/02/20 | 2 mg | | | | injection INTRAPROCEDURE PRN, | | 20 1:07 | | | | | Starting Sun06/02/20 at 1307, | | PM PDT | | | | | Until Sun06/02/20 at 1437 | | | | | | + +-------+ +------+---+---+ +---+---+ | | | +---+---+ + +-------+ +------+---+---+ | ondansetron (ZOFRAN) injection | Given | 06/02/20 | 4 mg | | | | INTRAPROCEDURE PRN, Starting Sun | | 20 2:17 | | | | | 06/02/20 at 1417, Until Wed | | PM PDT | | | | | 06/02/20 at 1437 | | | | | | + +-------+ +------+---+---+ +---+---+ | | | +---+---+ + +-------+ +--------+---+---+ | PHENYLEPHrine 100 mcg/mL IV | Given | 06/02/20 | 50 mcg | | | | syringe INTRAPROCEDURE PRN, | | 20 1:29 | | | | | Starting Sun06/02/20 at 1328, | | PM PDT | | | | | Until 06/02/20 at 1437 | | | | | | + +-------+ +--------+---+---+ +-------+ +--------+---+---+ | Given | 06/02/20 | 50 mcg | | | | | 20 1:28 | | | | | | PM PDT | | | | +-------+ +--------+---+---+ +---+---+ | | | +---+---+ + + + + +--------+---+ | PHENYLEPHrine 25 mg/250 mL (0.1 | Rate/Dos | 06/02/20 | 0.5 | 25.86 | | | mg/mL) IV infusion (ADC) | e Change | 20 1:48 | mcg/kg/m | mL/hr | | | intravenous, INTRAPROCEDURE | | PM PDT | in | | | | CONTINUOUS PRN, Starting Wed | | | | | | | 06/02/20 at 1341, Until Wed | | | | | | | 06/02/20 at 1437 | | | | | | + + + + +--------+---+ +---------+ + +--------+---+ | New Bag | 06/02/20 | 0.3 | 15.52 | | | | 20 1:41 | mcg/kg/m | mL/hr | | | | PM PDT | in | | | +---------+ + +--------+---+ +---+---+ | | | +---+---+ + +-------+ +-------+---+---+ | propofoL (DIPRIVAN) injection | Given | 06/02/20 | 30 mg | | | | INTRAPROCEDURE PRN, Starting Wed | | 20 1:34 | | | | | 06/02/20 at 1328, Until Wed | | PM PDT | | | | | 06/02/20 at 1437 | | | | | | + +-------+ +-------+---+---+ +-------+ +-------+---+---+ | Given | 06/02/20 | 50 mg | | | | | 20 1:30 | | | | | | PM PDT | | | | +-------+ +-------+---+---+ | Given | 06/02/20 | 50 mg | | | | | 20 1:29 | | | | | | PM PDT | | | | +-------+ +-------+---+---+ +---+---+ | | | +---+---+ + +-------+ +-------+---+---+ | rocuronium injection | Given | 06/02/20 | 10 mg | | | | INTRAPROCEDURE PRN, Starting Wed | | 20 2:02 | | | | | 06/02/20 at 1329, Until Wed | | PM PDT | | | | | 06/02/20 at 1437 | | | | | | + +-------+ +-------+---+---+ +-------+ +-------+---+---+ | Given | 06/02/20 | 50 mg | | | | | 20 1:29 | | | | | | PM PDT | | | | +-------+ +-------+---+---+ +---+---+ | | | +---+---+ + +-------+ +--------+---+---+ | sugammadex (BRIDION) IV | Given | 06/02/20 | 350 mg | | | | INTRAPROCEDURE PRN, Starting Wed | | 20 2:15 | | | | | 06/02/20 at 1415, Until Wed | | PM PDT | | | | | 06/02/20 at 1437 | | | | | | + [...]
--- OUTSIDE RECORDS SUMMARY | ~2020-08-04 | XMS | Encounter Summary ---
Demographics + + + | Address | [address] | | | [place] [address] | + + + | Home Phone [...] Author + + + | Author | [facility] | | | and [place] | + + + | Organization | [facility] | | [...] Team Providers + +------+ + | Care Coal Washer Tender Name | Role | Phone | + +------+ + | Dustin Perez MD | PCP | | + +------+ + Reason for Visit +--------+--------+ + | Reason | Onset | Comments | | | Date | | +--------+--------+ + | Other | 10/30/ | care coordination | | | 2019 | | +--------+--------+ + Encounter Details +--------+ + + + + | Date | Type | Department | Care Team | Description | +--------+ + + + + | 10/30/ | Telephone | [facility] | HadleygideonradhaHeather | Other (care | | 2019 | | INFECTIOUS DISEASE | Alvino RN | coordination) | | | | [address] | | | | | | [place] | | | | | | [address] | | | | | | [phone] | | | +--------+ + + + [...] Telephone Encounter - Heather Russo RN - 11/03/2019 3:41 PM PSTCalled [place] [facility], verified with staff at facility, patient picc line was removed prior to patient disch arge on Sunday10/31/2019. Will remove from IV antibiotics tracking registry at this time. E lectronically signed by Heather Russo RN at 11/03/2019 3:44 PM PSTTelephone Encounter - Heather Russo RN - 10/30/2019 10:04 AM PSTReceived voice message from [place] [facility], regarding patient last dose of IV Vancomycin and potential discharge from facility by Wednesday 10/31. [facility] ID progress notes. Patient seen by Dr Donovan 10/29/19, note states under plan section: I have given an order for his PICC line to be removed following his completion of antibioti c therapy evening, to be removed no later than Sunday Prior to discharge. Faxed copy of progress notes to [facility], Fax confirmation received. Called Germain singh and left voice message for RCM with the same information. No further concerns at th is time. documented in this encounter Plan of Treatment Not on filedocumented as of this encounter Visit Diagnoses Not on filedocumented in this encounter"
--- OUTSIDE RECORDS SUMMARY | ~2020-08-04 | XMS | Encounter Summary ---
Demographics + + + | Address | [address] | | | [place] [address] | + + + | Home Phone [...] + + + | Author | [facility] | + + + | Organization | [facility] | + + + | Address | [...] Team Providers + +------+ + | Care Computer Systems Engineer Name | Role | Phone | + +------+ + | Dustin Perez MD | PCP | | + +------+ + Encounter Details +--------+--------+ + + + | Date | Type | Department | Care Team | Description | +--------+--------+ + + + | 06/01/ | Intake | Transfer Center | | | | 2019 | | [address] | | | | | | [place], | | | | | | [place] [address] | | | +--------+--------+ + + + [...]
--- OUTSIDE RECORDS SUMMARY | ~2020-08-04 | XMS | Encounter Summary ---
Demographics + + + | Address | [address] | | | [place] [address] | + + + | Home Phone | | + + + | Preferred Language | Unknown | + + + | Marital Status | Single | + + + | Latter-Day Affiliation | Unknown | + + + | Race | White | + + + | Ethnic Group | Not or | + + + Author + + + | Author | [facility] | | | and [place] | + + + | Organization | [facility] | | | and [place] | + + + | Address | Unknown | + + + | Phone | Unavailable | + + + Support + + +---------+ + | Name | Relationship | Address | Phone | + + +---------+ + | Josué nA | ECON | Unknown | | + + +---------+ + Care Team Providers + +------+ + | Care Doughnut Maker Name | Role | Phone | + [...] + + | 10/23/ | Documentati | [facility] | Jaspreet Gunderson, | Results | | 2019 | on | INFECTIOUS DISEASE | Liang Quintana MD | ([facility]CMP, | | | | [address] | [address] | Vanco, CRP, CBC, ESR | | | | [place], [place] | [place] [address] | ) | | | | [address] | [phone] | | | | | [phone] | | | +--------+ + + + [...]
--- OUTSIDE RECORDS SUMMARY | ~2020-08-04 | XMS | Encounter Summary ---
Demographics + + + | Address | [address] | | | [place] [address] | + + + | Home Phone | | + + + | Preferred Language | Unknown | + + + | Marital Status | Single | + + + | Yazidism Affiliation | Unknown | + + + | Race | White | + + + | Ethnic Group | Not or | + + + Author + + + | Author | [facility] | | | and [place] | + + + | Organization | [facility] | | | [...] Team Providers + +------+ + | Care Mold Sheet Cleaner Name | Role | Phone | + +------+ + | Dustin Perez MD | PCP | | + +------+ + Reason for Visit + + + | Reason | Comments | + + + | Follow-up | Subacute osteomyelitis of left ankle | + + + Encounter Details +--------+---------+ + + + | Date | Type | Department | Care Team | Description | +--------+---------+ + + + | 10/29/ | Office | [facility] | Scotty Donovan DO | Subacute | | 2019 | Visit | INFECTIOUS DISEASE | [address] | osteomyelitis of | | | | [address] | [place] [address] | left ankle (HCC) | | | | [place], [place] | [phone] | (Primary Dx) | | | | [address] | | | | | | [phone] | | | +--------+---------+ + + + [...] + + + | Blood Pressure | 133/94 | 10/29/2019 2:16 PM | | | | | PST | | + + + + + | Pulse | 106 | 10/29/2019 2:16 PM | | | | | PST | | + + + + + | Temperature | 36.3 C (97.4 F) | 10/29/2019 2:16 PM | | | | | PST | | + + + + + | Respiratory Rate | 16 | 10/29/2019 2:16 PM | | | | | PST | | + + + + + | Oxygen Saturation | 97% | 10/29/2019 2:16 PM | | | | | PST | | + + + + + | Inhaled Oxygen | - | - | | | Concentration | | | | + + + + + | Weight | 92.1 kg (203 lb) | 10/29/2019 2:16 PM | | | | | PST | | + + + + + | Height | - | - | | + + + + + | Body Mass Index | 27.53 | 09/29/2019 1:05 PM | | | | | PST | | + + + + + documented in this encounter Patient Instructions Patient Instructions Scotty Donovan DO - 10/29/2019 2:20 PM PSTYou can complete your course of vancomyin on Sunday. Call if you have any fevers, or if you have any recurrent redness, pain or swelling in the left leg. Please have your labs drawn at least 1 day before your next visit. documented in this encounter Progress Notes Scotty Donovan DO - 10/29/2019 2:20 PM PST Subjective Patient ID: Monty An is a 69 y.o. male. Chief complaint: Follow-up left ankle osteomyelitis Background history: 69 y.o.-year-old male with significant PMH of multiple medical problems including cirrhosis , chronic bilateral lower extremity edema, atrial fibrillation, hypertension, seen in [facility] for orthopedic hardware associated osteomyelitis. The patient has a remote history of left ankle fusion approximately 3 years ago. He presen [place] to an outside hospital on September 03, 2019 with a 5-day history of exposed screw with as sociated lower extremity edema as well as purulent drainage which started on the dorsal aspe ct of the left foot. The patient was noted to have cellulitis in the emergency department, left heel ulceration and a left leg fluctuance. The patient had no pain in the leg at prese ntation but he suffers from neuropathy. He had apparently some cultures obtained at his [facility] facility which were reportedly negative. Prior to his presentation to the hospital the patient had been started on oral levofloxacin and Augmentin. The patient was taken to the operating room on September 04, 2019 for 4 compartment fasciotomy, incision, irrigation and de bridement. The patient underwent removal of the orthopedic hardware deep implants with cure ttage of the calcaneus bone and the talus, debridement of the left ankle incomplete fusion, and the patient underwent spanning antibiotic nail through the hind foot. The patient also was started on wound VAC therapy. The patient had a repeat operation on September 06, 2019 for wound closure. The patient's ak crobiology showed Staphylococcus aureus (MRSA), Corynebacterium striatum, Enterococcus faeca lis. Culture results are available in "care everywhere". The patient was written to contin ue intravenous vancomycin for a total of 6 weeks from his most recent debridement which will be finished on October 17, and was seen for initial consultation here on September 29. He w as noted to be making steady progress, although it was felt that he may benefit from extensi on of the antibiotic course to 8 weeks, and it was ultimately extended to a total of 8 weeks through October 31. Interim history: The patient presents for follow-up today and reports that his wounds have been making slow steady progress. He is having multilayer dressings applied every 2 to 3 days, with a final layer of Coban. He notes that the underlying layers are always wet when the dressings are r emoved. He denies any fevers or chills. The following elements of the patient's history were reviewed and updated as appropriate. T hey are available elsewhere in the patient record. allergies, current medications, past med ical history, past social history and problem list Review of Systems Constitutional: Negative for chills, diaphoresis and fever. Respiratory: Negative for cough, shortness of breath and wheezing. Gastrointestinal: Negative for diarrhea, nausea and vomiting. Musculoskeletal: Negative for myalgias. Skin: Negative for rash. Neurological: Negative for weakness. Objective There were no vitals taken for this visit. Physical Exam Vitals signs reviewed. Constitutional: Appearance: He is well-developed. Cardiovascular: Rate and Rhythm: Normal rate and regular rhythm. Pulmonary: Effort: Pulmonary effort is normal. Breath sounds: Normal breath sounds. Abdominal: General: Bowel sounds are normal. Palpations: Abdomen is soft. Tenderness: There is no tenderness. Skin: General: Skin is warm and dry. Findings: No rash. Comments: PICC line insertion site unremarkable, no tenderness or distal edema Left leg has blanching hyperemia which resolves with elevation. There is lymphedema, and e vidence of serous fluid weeping from the wounds. Where these fluids were soaking into the d ressing, there was a musty odor and a greenish-blue discoloration. Neurological: Mental Status: He is alert and oriented to person, place, and time. Psychiatric: Thought Content: Thought content normal. Assessment /Plan 1. Subacute osteomyelitis of left ankle (HCC) Wounds from hardware removal are making slow but steady progress. These continue to have s erous fluid weeping in the setting of profound lymphedema and venous stasis, and I would adv ise against applying a solid dressing such as co-band, especially when wrapped from the knee all the way to the end of the foot, which entrapped the moisture. There is a strong odor o f Pseudomonas in a greenish-blue discoloration in the dressings, but that odor completely re solved once the dressings were discarded. There is no evidence of such color or odor in the wounds themselves. These wounds should be covered with nonadhesive dressings, wrapped with a loose bulky gauze that is breathable and secured in place with a stocking. I would advis e against any dressing which will entrap the moisture. Antibiotic therapy can be completed on Sunday as planned. We will plan to check back in about 3 weeks with repeat inflammatory markers at that time, sooner if needed. The patient was advised to call if he has any incre ased redness pain or swelling in the left leg, or any unexplained fevers. I have given an order for his PICC line to be removed following his completion of antibioti c therapy evening, to be removed no later than Sunday prior to his discharge. - CBC with Differential; Future - C-Reactive Protein; Future - Sedimentation Rate; Future A total of 15 minutes was spent face to face with the patient, of which greater than 10 min utes was spent in education and councilling regarding the above issues. documented in this encoun ter Plan of Treatment + +------+--------+ + + | Name | Type | Priori | Associated Diagnoses | Order Schedule | | | | ty | | | + +------+--------+ + + | CBC with | 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 | Subacute | Expected: | | Differential | | e | osteomyelitis of | 10/29/2019, Expires: | | | | | left ankle (HCC) | 10/29/2020 | + +------+--------+ + + | C-Reactive Protein | 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 | Subacute | Expected: | | | | e | osteomyelitis of | 10/29/2019, Expires: | | | | | left ankle (HCC) | 10/29/2020 | + +------+--------+ + + | Sedimentation Rate | 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 | Subacute | Expected: | | | | e | osteomyelitis of | 10/29/2019, Expires: | | | | | left ankle (HCC) | 10/29/2020 | + +------+--------+ + + documented as of this encounter Procedures + +--------+ + + + | Procedure Name | Priori | Date/Time | Associated Diagnosis | Comments | | | ty | | | | + +--------+ + + + | LABS - EXTERNAL SCAN | | 10/23/2019 | | Results for this | | | | 12:00 AM | | procedure are in the | | | | PST | | results section. | + +--------+ + + + | LABS - EXTERNAL SCAN | | 10/20/2019 | | Results for this | | | | 12:00 AM | | procedure are in the | | | | PST | | results section. | + +--------+ + + + documented in this encounter Results LABS - EXTERNAL SCAN (10/23/2019 12:00 AM PST) + + + | Narrative | Performed At | + + + | Ordered by an | | | unspecified provider. | | + + + LABS - EXTERNAL SCAN (10/20/2019 12:00 AM PST) + + + | Narrative | Performed At | + + + | Ordered by an | | | unspecified provider. | | + + + documented in this encounter Visit Diagnoses + + | Diagnosis | + + | Subacute osteomyelitis of left ankle (HCC) - Primary | + + documented in this encounter
--- OUTSIDE RECORDS SUMMARY | ~2020-08-04 | XMS | Encounter Summary ---
Demographics + + + | Address | [address] | | | [place] [address] | + + + | Home Phone | | + + + | Preferred Language | Unknown | + + + | Marital Status | Single | + + + | Taoism Affiliation | NRP | + + + | Race | White | + + + | Ethnic Group | Not or | + + + Author + + + | Author | [facility] | + + + | Organization | [facility] | + + + | Address [...] Team Providers + +------+ + | Care Die Cast Engineer Name | Role | Phone | + +------+ + | Dustin Perez MD | PCP | | + +------+ + Encounter Details +--------+ + + + + | Date | Type | Department | Care Team | Description | +--------+ + + + + | 07/26/ | Patient | [facility] | Ld Rodriguez RN | | | 2020 | Outreach | Therapy Services at | [address] | | | | | [facility] | [place], | | | | | [address] | [place] [address] | | | | | [facility] | [phone] | | | | | and Healing, | | | | | | [facility] [address], | | | | | | Floor [place], [place] | | | | | | [address] | | | | | | [phone] | | | +--------+ + + + [...] Telephone Encounter - Ld Rodriguez RN - 07/26/2020 10:32 AM PDTUpdate [facility] 1. He is [facility] [place] for transfers and all ADL s 2. He is unable to walk which is holding up discharge really about the weight bearing is in parallel bars, he is required to walk up stairs - 13 3. Had F/u Ortho 07/22, no change to WB status, another f/u next week 4. Receives 2x/wk dressing changes at the wound clinic (This could be done as OP) Stage III Pressure Ulcer to left heel End of 90 days 09/09/20. Will continue to follow for remainder of 90 days in the bundle. Ld Rodriguez BSc, BSN, MANDO [facility] CJR/BPCIA Peoplesoft Developer C: [phone] Pager: [phone] [email or web address] Mail Code: [id number] documented in this [...]
--- OUTSIDE RECORDS SUMMARY | ~2020-08-04 | XMS | Encounter Summary ---
Demographics + + + | Address | [address] | | | [place] [address] | + + + | Home Phone [...] Author + + + | Author | [facility] | | | and [place] | + + + | Organization | [facility] | | [...] Team Providers + +------+ + | Care Third Rigger Name | Role | Phone | + +------+ + | Dustin Perez MD | PCP | | + +------+ + Reason for Visit +--------+--------+ + | Reason | Onset | Comments | | | Date | | +--------+--------+ + | Other | 10/24/ | lab results | | | 2019 | | +--------+--------+ + Encounter Details +--------+ + + + + | Date | Type | Department | Care Team | Description | +--------+ + + + + | 10/24/ | Telephone | [facility] | Heather Russo | Other (lab results) | | 2019 | | INFECTIOUS DISEASE | [address] | | | | | [address] | | | | | | [place] | | | | | | [address] | | | | | | [phone] | | | +--------+ + + + [...] Telephone Encounter - Heather Russo RN - 10/28/2019 10:00 AM [facility] trough results that were due Sunday10/27/19 be faxed t o [facility], patient on iv Vancomycin through 10/31/2019. elephone Encounter - Heather Russo RN - 10/24/2019 2:12 PM PSTBeth Calvillo calls [facility]. Vancomycin trough done 10/23/2019 at 2105 is 11.9. Creatinine 1.06 Current Vancomycin dose is 1750mg IV q24hrs, which is being given at [address] Jaimes in office for further advise. Dr Jaimes advised to keep same do se for now. Recheck vancomycin trough again Sunday10/27/19 as scheduled. Called Beth Calvillo back, spoke to Nae, advised of Dr Jaimes's recommendation to keep Vancomycin dose the same 1750mg IV q24h, and recheck vancomycin trough again on Sunday10/27/19. Patient to follow up in clinic 10/29/2019 as scheduled. documented in this encounter Plan of Treatment Not on filedocumented as of this encounter Visit Diagnoses Not on filedocumented in this encounter"
--- OUTSIDE RECORDS SUMMARY | ~2020-08-04 | XMS | Encounter Summary ---
Demographics + + + | Address | [address] | | | [place] [address] | + + + | Home Phone [...] Team Providers + +------+ + | Care Fire Chief Deputy Name | Role | Phone | + +------+ + | Dustin Perez MD | PCP | | + +------+ + Reason for Referral Physical Therapy (Routine) + +--------+ + + + + | Status | Reason | Specialty | Diagnoses / | Referred By | Referred To | | | | | Procedures | Contact | Contact | + +--------+ + + + + | New Request | | Physical | Diagnoses | Frifrancisca, | | | | | Therapy | Ankle pain, | Cory Yee MD | | | | | | unspecified | [address] | | | | | | chronicity, | Ave | | | | | | unspecified | [place], [place] | | | | | | laterality | [address] | | | | | | Procedures | Phone: | | | | | | PHYSICAL | [phone] | | | | | | THERAPY | Fax: | | | | | | REFERRAL | [phone] | | + +--------+ + + + + Reason for Visit +---------+ + | Reason | Comments | +---------+ + | Post Op | | +---------+ + Benefits Check (Routine) +--------+--------+ + + + + | Status | Reason | Specialty | Diagnoses / | Referred By | Referred To | | | | | Procedures | Contact | Contact | +--------+--------+ + + + + | Closed | | Orthopedics | | Emergency | [facility] | | | | | | Adult Prof | Olivier Mills MD | | | | | | [address] | [address] | | | | | | [address] | | | | | | Rd | Rd | | | | | | [place], [place] | [place], [place] | | | | | | [address] | [address] | | | | | | | Phone: | | | | | | | [phone] | | | | | | | Fax: | | | | | | | [phone] | +--------+--------+ + + + + Encounter Details +--------+---------+ + + + | Date | Type | Department | Care Team | Description | +--------+---------+ + + + | 10/14/ | Office | Orthopaedics | Cory Carmen, | Ankle pain, | | 2019 | Visit | [facility] | [address] | unspecified | | | | for Health and | [place], [place] | chronicity, | | | | Healing [address] | [address] | unspecified | | | | [address] [facility] for | [phone] | laterality (Primary | | | | Health and Healing, | | Dx) | | | | | | | | | | Floor [place], [place] | | | | | | [address] | | | | | | [phone] | | | +--------+---------+ + + + [...] + + + | Blood Pressure | - | - | | + + + + + | Pulse | - | - | | + + + + + | Temperature | - | - | | + + + + + | Respiratory Rate | - | - | | + + + + + | Oxygen Saturation | - | - | | + + + + + | Inhaled Oxygen | - | - | | | Concentration | | | | + + + + + | Weight | 93.4 kg (206 lb) | 10/14/2019 3:21 PM | | | | | PST | | + + + + + | Height | 182.9 cm (6') | 10/14/2019 3:21 PM | | | | | PST | | + + + + + | Body Mass Index | 27.94 | 10/14/2019 3:21 PM | | | | | PST [...] documented as of this encounter Progress Notes Cory Carmen MD - 10/14/2019 3:40 PM PSTFormatting of this note might be different fro joseph the original. [facility] Orthopaedic Trauma Clinic Today's date: 10/14/2019 Orthopaedic Diagnoses: MRSA osteomyelitis of left calc/talus/tibia, Failed ankle fusion Surgeries: - 09/04/2019: LLE I&D, HWR of hindfoot IMN, Abx IMN, 4 compartment fasciotomies - 09/06/2019: LLE I&D, fasciotomy closure S: Mr. Monty An is a 69 year old male, he is now ~6wks since surgery. Currently he is NWB. He has remained at a [facility] care facility following [facility] discharge for IV-Vanc and wound care. He feels like he is doing "excellent" as he has no pain and his wounds are healing. He saw his local ID doctor yesterday who recommended continuing IV-Abx through 10/13. He reports that he has never smoked. He has never used smokeless tobacco. ROS: he is not complaining of any syncope, chest pain, SOB, abdominal pain, nausea, bowel or bladder issues . O: Vitals: Ht 1.829 m (6') | Wt 93.4 kg (206 lb) | BMI 27.94 kg/m | BSA 2.18 m General- Awake & alert male; No acute distress; Alert & oriented to person/place/time; Appr opriate pleasant affect LLE: Healing lateral incision w/ ~3cm area of superficial granulating wound, healing medial incision w/ nearly complete superficial granulating wound w/o francisco pus, healed plantar wou nd. NTTP. Minimal ankle ROM. Fires EHL/FHL. 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 Agreed wounds appear to be slowly healing w/ granulation tissue, but overall picture with his LLE lymphedema makes potential for further wound issues significant. Encouraged re garding ongoing wound care and keeping wound clean/dry. At this point can progress to WBAT. Discussed possibility that could experience hardware failure as the Abx nail is significantl y weaker than traditional fusion nail. Agreed that can address hardware failure issues if th ey develop and at this point in time there is more benefit of beginning full weight bearing. 1. Activity: full weight bearing as tolerated. No limits 2. Medication changes: None 3. F/U: 2-3 months (may call to re-schedule if weather is bad) 4. Repeat pre clinic x-rays: left ankle 3 views Parish Villa MD I have seen the patient and performed and independent history and physical exam. I discuss ed the diagnosis, imaging studies, treatment plan and prognosis with the patient and residen t. I have reviewed and edited the above note and agree with the plan as listed. Cory Carmen MD [facility]THOPAEDICS AT [facility] [address] [place] [address] Mailcode: [address] [place] [address] Orders Placed This Encounter X-RAY ANKLE 3 VIEWS LEFT PHYSICAL THERAPY REFERRAL documented in this en counter Plan of Treatment Not on filedocumented as of this encounter Results X-RAY ANKLE 3 VIEWS [...] presented. Final signature: Marino | | | Joseph Alston MD 10/14/2019 3:33 PM Preliminary: Marino Alston MD | | | Dictation initiated: Marino Alston MD 10/14/2019 3:28 PM | | + + + + + | Procedure Note | + + | Service Account, [employer] In Interface - 10/14/2019 3:34 PM [...] | Ankle pain, unspecified chronicity, unspecified laterality - Primary | + + documented in [...]
--- OUTSIDE RECORDS SUMMARY | ~2020-08-04 | XMS | Encounter Summary ---
Demographics + + + | Address | [address] | | | [place] [address] | + + + | Home Phone | | + + + | Preferred Language | Unknown | + + + | Marital Status | Single | + + + | Oriental Orthodox Affiliation | Unknown | + + + | Race | White | + + + | Ethnic Group | Not or | + + + Author + + + | Author | [facility] | | | and [place] | + + + | Organization | [facility] | | | [...] Team Providers + +------+ + | Care Contact Lens Inspector Name | Role | Phone | + [...] 2018 | | [address] | [address] | | | | | [address] | [address] [place], [place] | | | | | [place], [place] | [address] | | | | | [address] | | | | | | [phone] | | | +--------+ + + + [...] MV A Elliot: 0.22 m/s MV Dec [place] Nort[place]: | | | 8.95 m/s2 MV DecT: [...] | 24.30 mmHg TR Vmax: 2.46 m/s Surgeon/President: BJ Authenticated | | | by: JOHN CRAFT MD Report Date/Time: -- 74_[id number]_73:20:5 | | + + + + + [...] | | cmLVPWd: 1.11 cmLVOT Area: 4.04 hr7ELWB Diam: 2.27 cm%FS: 26.15 %EF(Teich): | | [...] | Index (A-L): 35.33 ml/m2LAAs A2C: 21.87 ts6FJEEC A-L A2C: 72.13 mlLALs A2C: 5.63 | | cmLAAs A4C: 21.22 dm8BNBMV A-L A4C: 65.44 mlLALs A4C: 5.84 cmRAAs: 19.08 | | tu7BAORG A-L: 51.71 mlRAESV MOD: 49.81 mlRALs: 5.98 cmTAPSE: 2.44 cmAV maxPG: | | 9.91 mmHgAV meanP.88 mmHgAV Vmax: 1.57 m/Brenda Vmean: 1.15 m/Brenda VTI: 31.23 | | cmAVA Vmax: 1.51 cm2AVA (VTI): 1.45 aa9PIUV maxP.38 mmHgLVOT meanP.74 | | mmHgLVSI Dopp: 22.93 ml/m2LVSV Dopp: 45.40 mlLVOT Vmax: 0.58 m/sLVOT Vmean: 0.40 | | m/sLVOT VTI: 11.22 cmMV A Elliot: 0.22 m/sMV Dec [place]: 8.95 m/s2MV DecT: 108.45 | | msMV E Elliot: 0.97 m/sMV E/A Ratio: 4.26MV PHT: 31.45 msMVA By PHT: 6.99 re0Kexsix | | e': 0.08 m/sSeptal E/e': 12.09Lateral e': 0.10 m/sLateral E/e': 9.28RAP: 5 | | mmHgRVSP: 29.30 mmHgTR maxP.30 mmHgTR Vmax: 2.46 m/s Surgeon/President: | | DHAuthenticated by: Dagoberto TORIBIO Date/Time: -- 70_99-42-9578_07:20:5 | | IMPRESSION: 1. Overall left ventricular [...] A Elliot: 0.22 m/s | |MV Dec [place]: 8.95 m/s2 | |MV DecT: 108.45 ms [...] |TR Vmax: 2.46 m/s | | | |Surgeon/President: | |Authenticated by: JOHN CRAFT MD | |Report Date/Time: -- 60_[id number]_[id number]:20:5 | | | |IMPRESSION: | |1. Overall [...]
--- OUTSIDE RECORDS SUMMARY | ~2020-08-04 | XMS | Encounter Summary ---
Demographics + + + | Address | [address] | | | [place] [address] | + + + | Home Phone [...] Author + + + | Author | [facility] | + + + | Organization | [facility] | + + + | [...] Team Providers + +------+ + | Care Shellfish Weigher Name | Role | Phone | + [...] | | | | | | Rd [facility] | | | | | | Hospital Admitting | | | | | | Desk Located on the | | | | | | 9th floor | | | | | | [place], [place] | | | | | | [address] | | | +--------+ + + + [...]
--- OUTSIDE RECORDS SUMMARY | ~2020-08-04 | XMS | Encounter Summary ---
Demographics + + + | Address | [address] | | | [place] [address] | + + + | Home Phone | | + + + | Preferred Language | Unknown | + + + | Marital Status | Single | + + + | Yazidi Affiliation | NRP | + + + | Race | White | + + + | Ethnic Group | Not or | + + + Author + + + | Author | [facility] | + + + | Organization | [facility] | + + + | Address | [...] Team Providers + +------+ + | Care Crossbow Maker Name | Role | Phone | + +------+ + | Dustin Perez MD | PCP | | + +------+ + Encounter Details +--------+ + + + + | Date | Type | Department | Care Team | Description | +--------+ + + + + | 06/10/ | Pharmacy | Outpatient Retail | | | | 2019 | Visit | Clinic Pharmacy | | | | | | [address] | | | | | | [address] [place], [place] | | | | | | [address] | | | | | | [phone] | | | +--------+ + + + [...] of | | | | | beer, densamina hx of | | | | | [...]
--- OUTSIDE RECORDS SUMMARY | ~2020-08-04 | XMS | Encounter Summary ---
Demographics + + + | Address | [address] | | | [place] [address] | + + + | Home Phone | | + + + | Preferred Language | Unknown | + + + | Marital Status | Single | + + + | Jehovah'S Witness Affiliation | NRP | + + + [...] Team Providers + +------+ + | Care Ordering Box Operator Name | Role | Phone | [...] [address] | | | | | [facility] | [address] | | | | | Hospital Admitting | [place], [place] | | | | | Desk Located on the | [address] | | | | | 9th floor | [phone] | | | | | [place], [place] | | | | | | [address] | Fannie Duckworth, | | | | | | [address] | | | | | | [address] | | | | | | [place], [place] | | | | | | [address] | | | | | | [phone] | | | | | | | [...] encounter [place] Notes Anesthesia Postprocedure Evaluation - Fannie Duckworth MD - 09/04/2019 2:05 PM PDTFormat ting of this note might be different from the original. Monty An [id number] Vitals Value Taken Time BP 108/62 09/04/2019 2:01 PM Temp 36.4 C (97.5 F) 09/04/2019 2:01 PM Pulse 99 09/04/2019 2:04 PM Resp 16 09/04/2019 2:04 PM SpO2 100 % 09/04/2019 2:04 PM Vitals shown include unvalidated device data. EVALUATION VS (BP, HR, RR, SpO2, and Temp) and hydration status are stable ROS including Cards, Resp, Neuro, and GI without evidence of adverse effects No PONV Pain controlled No altered mental status COMPLICATIONS No adverse events nesthesia Procedur e Notes - Fannie Duckworth MD - 09/04/2019 10:10 AM PDTAssociated Order(s): ETTAIRWAY JULIANA GEMENT - ETT Time of Placement: 09/04/2019 9:33 AM Intubation Reason: For surgical procedure Positioning: Supine Location Performed:OR OXYGENATION Patient was preoxygenated Grade: Grade 2 - Ventilated by mask with oral airway/adjuvant Induction:Routine INTUBATION ATTEMPT 1 Blade Type: Mikhail Blade #: 3 Laryngoscopic View: Grade II ATTEMPT 2 Blade Type: Mikhail Blade #: 4 Laryngoscopic View: Grade II ETT DETAILS ETT Type:Standard, Hi-Lo Cuffed Intubation Type: Oral Cuff Status: Cuffed Size: 7.5 ETT secured with adhesive tape Depth at Lip: 23 cm CONFIRMATION Number of Attempts: 2 Positive for EtCO2:Waveform capnography Breath Sounds: Bilateral and equal Procedural Complications: Esophageal intubation NARRATIVE Attending was physically present for the critical portions of the procedure as described in the procedure note Attending/Authorizing Provider: Raimundo Hernandez MD Performing Provider: Fannie Duckworth MD Procedure Comments: First attempt with grade IIa view. Vocal cords anterior with some diffi culty advancing ETT to anteriorly to cords due to shape of tube. Esophageal, only single kathleen ath given, immediately noted and ETT withdrawn. Patient mask ventilated while ETT reshaped t o allow for more anterior passage. Second attempt again with grade IIa view. ETT easily adva nced through vocal cords. nesthesia Preproce dure Evaluation - Fannie Duckworth MD - 09/04/2019 9:11 AM PDTFormatting of this note rene ht be different from the original. 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 No pertinent past surgical history. Current Medication List Name Sig Last Dose AMOXICILLIN 500 MG-POTASSIUM CLAVULANATE 125 MG TABLET Take 1 tablet by mouth every eight h ours. Indications: skin infection Within last 7 days DIGOXIN 125 MCG (0.125 MG) TABLET Take 125 mcg by mouth once daily. Indications: Ventricula r Rate Control in Atrial Fibrillation Within last 7 days GABAPENTIN 600 MG TABLET Take 600 mg by mouth three times daily. Indications: alcoholism Wi thin last 7 days LEVOFLOXACIN 500 MG TABLET Take 500 mg by mouth once daily. Indications: bone/joint infecti on Within last 7 days LOPERAMIDE 2 MG CAPSULE Take 2 mg by mouth four times daily as needed for diarrhea. Within last 7 days MELATONIN 3 MG TABLET Take 3 mg by mouth once daily in the evening. Within last 7 days OMEPRAZOLE 20 MG CAPSULE,DELAYED RELEASE Take 20 mg by mouth two times daily. Administer 30 to 60 minutes before meals Within last 7 days TAMSULOSIN 0.4 MG CAPSULE Take 0.4 mg by mouth once daily. Within last 7 days No results found for: RATE, ATRIALRATE, [place], QRS, QT, QTC, PAXIS, RAXIS, TAXIS, EKGDX ANESTHESIA PLAN ASA 4 NPO Status: NPO by protocol ANESTHETIC TECHNIQUE Technique Used: General Induction: Intravenous MONITORS/LINES TO BE USED Standard Comments: Consent for possible arterial line, possible central line ANESTHETIC CONSIDERATIONS IV when asleep Additional Considerations: Consented for possible post-op ICU intubated POSTOP PAIN IV analgesics Oral analgesics BLOOD PRODUCTS T and S INFORMED CONSENT PARQ and risks/benefits of anesthetic plan discussed with Patient Additional Consent Issues: Risk/benefit of blood products discussed Dental Risk discussed with patient PATIENT'S CODE STATUS IN OR FULL - full code documented in this encounter Miscellaneous Notes PMC/ANE PreOp Note - Fannie Duckworth MD - 09/04/2019 9:07 AM PDTROS: HPI: Monty An is an 69 y.o. 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 PMHx is additionally notable for: - Atrial fibrillation, not on anticoagulation - HTN - Cirrhosis, chart history of esophageal varices - Alcohol abuse, reportedly in remission - HTN - Peripheral neuropathy - Coagulopathy, likely due to liver disease No reported history of anesthesia related complications. Appropriately NPO. No known drug a llergies. Pulmonary: no shortness of breath no cough [...] CHF hypertension (recently hypotensive) no CAD Sx arrh ythmia Atrial fibrillation/flutter no pacemaker/ICD GI/Hepatic: no GI Bleed no GERD liver disease esophageal varices and cirrhosis Renal: no renal failure electrolyte abnormalities hypokalemia and hyponatremia Endo: Diabetes: type 2 diet no Endocrine Other Neuro/Psych: No Head Conditions No Spine Conditions No Neuromuscular Conditions pain Current pain scor e: Pre-existing neuropathy Musculoskeletal: no arthritis Heme/Onc: Pt. 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 No clott ing disorders Hemoglobin Disorders anemia Skin: open wounds Active Skin Infections AutoImmune Disorders: No autoimmune disorders Physical Exam General: Appearance: Age appropriate, No distress and Smiling LOC: Alert HEENT: Normocephalic/Atraumatic and Oropharyngeal mucosa pink/moist Airway: Dentition: chipped teeth Mallampati: 3 Mouth Opening: > 3 cm TM Distance:< 6 cm Clemons: No C-Spine ROM: Normal Neck Anatomy: Normal Jaw Protrusion: Normal (lower incisors go above upper incisors) Pulmonary: Respiratory: pulmonary exam normal Breath Sounds: breath sounds normal Cardiovascular: Rhythm: Irregular Rate: Normal Abdomen: General: Body Habitus: normal Neuro/Psych: Affect: Normal Cognitive Status: Normal Speech: Normal speech Skin: Color: Comments: venous stasis of bilateral lower extremities, significant edema and erythema of l eft lower extremity Other Implanted Devices: Implanted devices: None documented in this encounter Plan of Treatment [...] PDT | | | | | Starting [facility] 09/04/19 at 0929, | | | | | | | Until [facility] 09/04/19 at 1349 | | | | [...] | | | Starting [facility] 09/04/19 at 0955, | | AM PDT | [...]
--- OUTSIDE RECORDS SUMMARY | ~2020-08-04 | XMS | Encounter Summary ---
Demographics + + + | Address | [address] | | | [place] [address] | + + + | Home Phone | | + + + | Preferred Language | Unknown | + + + | Marital Status | Single | + + + | Scientology Affiliation | NRP | + + + [...] Team Providers + +------+ + | Care Hull Outfit Supervisor Name | Role | Phone | + +------+ + | Dustin Perez MD | PCP | | + +------+ + Reason for Visit + +--------+ + | Reason | Onset | Comments | | | Date | | + +--------+ + | Medication | 09/30/ | vancomycin trough | | management | 2018 | | + +--------+ + | Infectious disease | 09/30/ | | | | 2019 | | + +--------+ + Encounter Details +--------+ + + + + | Date | Type | Department | Care Team | Description | +--------+ + + + + | 09/30/ | Telephone | Infectious | Yas Lake RN | Medication | | 2019 | | [facility] at [facility] | [address] | management | | | | [address] | [address] | (vancomycin trough); | | | | Loop [facility] | [place], [place] | Infectious disease | | | | Vikas, [address] [place] [address] | [address] | | | | | [place], [place] | [phone] | | | | | [address] | | | | | | [phone] | | | +--------+ + + + [...] this encounter Miscellaneous Notes Telephone Encounter - Yas Lake RN - 09/30/2019 3:00 PM PSTReceived call from Nae with SNF. She called to report that vancomycin dose was 1250mg Q24 hours until last night ( [facility] requested change to 1500mg 09/25) and is asking if vancomycin tr ough should be drawn today or at a later date. Confirmed with Rosanne FRIAS PharmD, that vanc omycin trough should be drawn 10/02. Marti verbally acknowledged and agreed to the plan and does not have any further questions or concerns at this time. documented in this enc ounter Plan of Treatment Not on filedocumented as [...]
--- OUTSIDE RECORDS SUMMARY | ~2020-08-04 | XMS | Encounter Summary ---
Demographics + + + | Address | [address] | | | [place] [address] | + + + | Home Phone [...] | Author | [facility] | + + + | Organization | [facility] | + + + | Address | [...] Team Providers + +------+ + | Care Laboratory Chemist Name | Role | Phone | + +------+ + | Dustin Perez MD | PCP | | + +------+ + Encounter Details +--------+ + + + + | Date | Type | Department | Care Team | Description | +--------+ + + + + | 06/03/ | Pharmacy | Outpatient Retail | | | | 2019 | Visit | Clinic Pharmacy | | | | | | [address] | | | | | | Loop [place], [place] | | | | | | [address] | | | | | | [phone] | | | +--------+ + + + [...]
--- OUTSIDE RECORDS SUMMARY | ~2020-08-04 | XMS | Encounter Summary ---
Demographics + + + | Address | [address] | | | [place] [address] | + + + | Home Phone | | + + + | Preferred Language | Unknown | + + + | Marital Status | Single | + + + | Mandaen Affiliation | Unknown | + + + | Race | White | + + + | Ethnic Group | Not or | + + + Author + + + | Author | [facility] | | | and [place] | + + + | Organization | [facility] | | | [...] Team Providers + +------+ + | Care Jointer Submarine Cable Name | Role | Phone | + +------+ + | Dustin Perez MD | PCP | | + +------+ + Encounter Details +--------+ + + + + | Date | Type | Department | Care Team | Description | +--------+ + + + + | 11/20/ | Orders Only | [facility] | Conversion | | | 2018 | | [address]VERSION [address] | Transaction, | | | | | [address] | Provider Unknown | | | | | [place], [place] | [phone] | | | | | [address] | | | | | | [phone] | | | +--------+ + + + [...]
--- OUTSIDE RECORDS SUMMARY | ~2020-08-04 | XMS | Encounter Summary ---
Demographics + + + | Address | [address] | | | [place] [address] | + + + | Home Phone [...] Team Providers + +------+ + | Care Nurse Coordinator Name | Role | Phone | [...]
--- OUTSIDE RECORDS SUMMARY | ~2020-08-04 | XMS | Encounter Summary ---
Demographics + + + | Address | [address] | | | [place] [address] | + + + | Home Phone [...] Team Providers + +------+ + | Care Customer Sales Distributor Name | Role | Phone | + [...] + + + + | 06/08/ | Anesthesia | 6A Intra Op [id number] | Esteban Rosas | | | 2020 | Event | [address] | MD Gene [address] | | | | | [address] [facility] | [address] | | | | | Hospital Admitting | [place], [place] | | | | | Desk Located on the | [address] | | | | | 9th floor | [phone] | | | | | [place], [place] | | | | | | [address] | Alka Rosales MD | | | | | | [address] | | | | | | [address] | | | | | | [place], [place] | | | | | | [address] | | | | | | [phone] | | | | | | | | +--------+ + + + + Anesthesia Record + + + + + | Procedure Name | Responsible | Anesthesia Start | Anesthesia Stop Time | | | Anesthesiologist | Time | | + + + + + | RIGHT HINDFOOT | Esteban Rosas, | 06/08/20 0736 | 06/08/20 1113 | | NAILING (Right Foot) | MD | | | + + + + + +----+---+ + + | Da | T | Event | Comment | | te | i | | | | | m | | | | | e | | | +----+---+ + + | 07 | 0 | Eq Check | Anesthesia machine checked Equipment verified | | /2 | 6 | | | | 8/ | 1 | | | | 20 | 4 | | | | 20 | | | | +----+---+ + + | | 0 | Pt. Check | Prior to anesthesia start, pt. Identified, examined, chart | | | 7 | | reviewed, PARQ held, anesthetic plan made or approved by | | | 2 | | attending anesthesiologist. NPO status confirmed as appropriate | | | 0 | | for procedure Preoperative evaluation: unchanged | +----+---+ + + | | 0 | An Start | | | | 7 | | | | | 3 | | | | | 6 | | | +----+---+ + + | | 0 | An Start | | | | 7 | Data | | | | 3 | | | | | 8 | | | +----+---+ + + | | 0 | Vitals | Monitors applied Vital signs checked Patient ready for anesthesia | | | 8 | Checked | | | | 0 | | | | | 3 | | | +----+---+ + + | | 0 | O2 by FM | | | | 8 | | | | | 0 | | | | | 4 | | | +----+---+ + + | | 0 | ETT | | | | 8 | | | | | 0 | | | | | 6 | | | +----+---+ + + | | 0 | Ready | | | | 8 | | | | | 1 | | | | | 0 | | | +----+---+ + + | | 0 | Quick Note | Avani pratt placed per surgeon. Patient voided at approximately 7am | | | 8 | | | | | 1 | | | | | 0 | | | +----+---+ + + | | 0 | Abx | | | | 8 | Administere | | | | 1 | d | | | | 2 | | | +----+---+ + + | | 0 | Timeout | | | | 8 | | | | | 1 | | | | | 4 | | | +----+---+ + + | | 0 | Quick Note | Surgeon doing xrays | | | 8 | | | | | 1 | | | | | 9 | | | +----+---+ + + | | 0 | Incision | | | | 8 | | | | | 2 | | | | | 0 | | | +----+---+ + + | | 0 | Quick Note | Surgeon manipulating right LE and moving leg to shoot xrays. | | | 9 | | Noticed patient became more hypotensive during this period. | | | 2 | | Resolved with next BP measurement and not intervention | | | 2 | | | +----+---+ + + | | 0 | Quick Note | Noticed patient HR increasing with surgeon manipulation of right | | | 9 | | LE and drilling. Suspect painful stimulation so redosed with | | | 3 | | fentanyl | | | 1 | | | +----+---+ + + | | 1 | Quick Note | Medication interaction noted between LR and digoxin when placing | | | 0 | | pacu orders. Noted that if fast flushes with IV calcium while on | | | 1 | | digoxin, can cause arrythmia. Consulted with pharmacy. Patient | | | 8 | | not hypercalcemic at baseline and LR only run intraoperatively. | | | | | Pharmacy felt LR ok and would not be expected to cause | | | | | arrhythmia. Changed PACU order to have NS boluses for hypo and | | | | | hypertension as as precaution. | +----+---+ + + | | 1 | An Extubate | Neuromuscular function Intact. Pharynx suctioned. Patient obeys | | | 0 | | commands. Adequate pulmonary mechanics. | | | 5 | | | | | 5 | | | +----+---+ + + | | 1 | an stop | | | | 0 | data | | | | 5 | | | | | 5 | | | +----+---+ + + | | 1 | PACU Rpt | | | | 1 | Given | | | | 1 | | | | | 3 | | | +----+---+ + + | | 1 | Anesthesia | | | | 1 | End | | | | 1 | | | | | 3 | | | +----+---+ + + | | 1 | Post-Op | | | | 2 | Page | | | | 0 | | | | | 0 | | | +----+---+ + + +------+ | Meds | +------+ + + + | Name | Total | + + + | fentaNYL | 150 mcg | + + + | propofol | 200 mg | + + + | lidocaine 2% | 100 mg | + + + | rocuronium | 80 mg | + + + | PHENYLEPHrine | 600 mcg | + + + | ondansetron | 4 mg | + + + | ceFAZolin | 2,000 mg | + + + | PHENYLEPHrine INF (25mg/250mL) | 5,660.1 mcg | + + + | HYDROmorphone | 0.8 mg | + + + | neostigmine vial | 1 mg | + + + | glycopyrrolate | 0.2 mg | + + + | LR bolus | 1,200 mL | + + + + + | Name | + + | O2 FR Avance (Total Liters) | + + | Air FR Avance (l/min) | + + | Insp Sevo | + + | Et Sevo | + + + + | No blood administrations on file. | + + +--------+ + + + | Type | Details | Placement | Removal | +--------+ + + + | Wound | 09/03/19; 1907; Yes; Left; foot | 09/03/191907 by | | | | | Gwyn Craw | | +--------+ + + + | Wound | 09/04/19; 329; Left; heel; | 09/04/190 by | | | | Ulceration | Brodie Frances RN | | +--------+ + + + | Incisi | 09/04/19; 5; Elan. ; Left; | 09/04/195 by | | | on | Medial, Lower; leg | Cary Jones RN | | +--------+ + + + | Incisi | 09/04/19; 1017; Gundle. CHANDLER; Left; | 09/04/19 1017 by | | | on | Lateral, Lower; leg | Cary Jones RN | | +--------+ + + + | Incisi | 09/04/19; 1018; Elan. ; Left; | 09/04/191017 by | | | on | plantar | Cary Jones RN | | +--------+ + + + | Urethr | 09/06/19; 1700; 1; Straight Cath; | 09/06/191699 by [facility] | | | al | 14 Fr. | Shania Alcantar RN | | | Cathet | | | | | er | | | | +--------+ + + + | PICC - | 09/09/19; 1452; Yenifer Espinosa RN; | 09/09/19 145 by | | | | Non-tunneled, Valved; Left; Arm; | Marty Golden RN | | | Single | Basilic; 4 Fr; 1:Red; Yes; | | | | Lumen | [id number] | | | +--------+ + + + | Wound | 09/11/19; 1632; Right; Lower, | 09/11/19 1632 by | | | | Proximal, Anterior; leg; Other | Ty Downs RN | | | | (Comment) (skin tear) | | | +--------+ + + + | Wound | 09/15/19; 1130; Right; Lower, | 09/15/19 1130 by [facility] | | | | Anterior; leg; Skin tear | Shania Alcantar RN | | +--------+ + + + | Wound | 06/02/20; 0601; Yes; Right; | 06/02/20 0601 by | | | | Lateral; heel; Pressure ulcer | Elsa Romero RN | | +--------+ + + + | Incisi | 06/03/20; 0910; Right (Ankle); | 06/03/2010 by | | | on | foot (Ankle) | Mickey Bains, | | | | | RN | | +--------+ + + + | Incisi | 06/08/20; 08; MD Fam; Right; | 06/08/20819 by | | | on | Medial, Lower; leg (Ankle) | Chito Brooke RN | | +--------+ + + + | Incisi | 06/08/20; 1001; MD Fam; Right; | 06/08/20 1001 by | | | on | heel | Chito Brooke RN | | +--------+ + + + | Incisi | 06/08/20; 1006; Right; Medial; | 06/08/20 1006 by | | | on | leg | Chito Brooke RN | | +--------+ + + + | Periph | Bobby; Left; Forearm; 20 g; None; | 06/08/20 0912 by | 06/11/20 09 by | | eral | No; Positive; 06/11/20; 929 | | Jessica Kee RN | | IV | | | | +--------+ + + + | Periph | 06/02/20; Right; Hand; 18 g; | 06/02/20 0000 by | 06/11/20929 by | | eral | 06/11/20; 929 | Slade Beth RN | Jessica Kee RN | | IV | | | | +--------+ + + + | ETT | 06/08/20; 0806 (created via | 06/08/20 08 by | 06/08/20 1055 by | | | procedure documentation); | Alka Rosales MD | Alka Rosales MD | | | Alka Rosales MD; Endotracheal | | | | | Tube; 7.5; Oral; Cuffed; | | | | | 06/08/20; 1055 | | | +--------+ + + + [...] encounter OR Notes Anesthesia Postprocedure Evaluation - Alka Rosales MD - 06/08/2020 11:13 AM PDTFormatt ing of this note might be different from the original. Monty An [id number] Vitals Value Taken Time BP 111/79 06/08/2020 11:12 AM Temp 36.4 C (97.5 F) 06/08/2020 11:12 AM Pulse 101 06/08/2020 11:12 AM Resp 13 06/08/2020 11:12 AM SpO2 99 % 06/08/2020 11:12 AM Vitals shown include unvalidated device data. EVALUATION VS (BP, HR, RR, SpO2, and Temp) and hydration status are stable ROS including Cards, Resp, Neuro, and GI without evidence of adverse effects No PONV Pain controlled No altered mental status COMPLICATIONS No adverse events Other/Comments: Patient reports pain is "ok". Reports "nancy horse in right leg". Pain but reasonable per patient nesthesia Procedure Notes - Alka Rosales MD - 06/08/2020 9:09 AM PDTAssociated Order(s): ETTAIRWAY MANAGE MENT - ETT Time of Placement: 06/08/2020 8:06 AM Intubation Reason: For surgical procedure Positioning: Supine Location Performed:OR OXYGENATION Patient was preoxygenated No apneic oxygenation Grade: Grade 1 - Ventilated by mask Manual in-Line Stabilization: No Induction:Routine, without Cricoid Pressure INTUBATION ATTEMPT 1 Blade Type: Mikhail Blade #: 3 Laryngoscopic View: Grade III Surgical Airway: no Surgical Airway ATTEMPT 2 Videolaryngoscopy: Glidescope Intubation adjuncts: w/ Stylet Laryngoscopic View: Grade I Surgical Airway: no Att 2 Surgical Airway ETT DETAILS ETT Type:Standard, Hi-Lo Cuffed Intubation Type: Oral Cuff Status: Cuffed Size: 7.5 ETT secured with adhesive tape Depth at Lip: 23 cm Airway Leak: No CONFIRMATION airway not difficult Number of Attempts: 2 Atraumatic placement Positive for EtCO2:Waveform capnography Breath Sounds: Bilateral and equal NARRATIVE Attending was physically present for the critical portions of the procedure as described in the procedure note Attending/Authorizing Provider: Esteban Rosas MD Performing Provider: Alka Rosales MD Procedure Comments: First attempt with MAC 3 blade. Grade 3 view. May have needed longer bl zenaida or Romero blade. Decided to change to glidescope. Re-bag masked patient before second at tempt with glidescope. Grade 1 view with glidescope. nesthesia Prepro cedure Evaluation - Alka Rosales MD - 06/07/2020 9:35 PM PDTFormatting of this note mi ght be different from the original. Monty An [id number] No Known Allergies NPO: > midnight Last Vitals Temp: 36.7 C (98.1 F) Heart Rate: 90 Resp: 16 Airway Resp Rate: 21 BP: 122/60 SpO2: 97 % O2 Flow Rate: 8 LPM O2 Delivery Device: None (room air) [...] Medication List Name Sig Last Dose ACETAMINOPHEN 325 MG TABLET Take 325 mg by mouth every six hours as needed (pain). ASPIRIN 81 MG TABLET,DELAYED RELEASE Take 81 mg by mouth once daily. Indications: atrial fi brillation CEPHALEXIN 500 MG CAPSULE Take 500 mg by mouth every six hours. DIGOXIN 125 MCG (0.125 MG) TABLET Take 125 mcg by mouth once daily. Indications: Ventricula r Rate Control in Atrial Fibrillation Within last 7 days FUROSEMIDE 40 MG TABLET Take 40 mg by mouth once daily. GABAPENTIN 600 MG TABLET Take 600 mg by mouth two times daily. MELATONIN 5 MG TABLET Take 5 mg by mouth once daily in the evening. MULTIVITAMIN WITH IRON TABLET Take 1 tablet by mouth once daily. Lab Results Component Value Date RATE 89 06/01/2020 ATRIALRATE 0 06/01/2020 QRS 93 06/01/2020 QT 353 06/01/2020 RAXIS -60 06/01/2020 TAXIS 39 06/01/2020 ANESTHESIA PLAN ASA 3 NPO Status: NPO by protocol ANESTHETIC TECHNIQUE Technique Used: General Induction: Intravenous MONITORS/LINES TO BE USED Standard Art line Comments: Will plan for a-line if needed intraop. Discussed with patient as well as possibl e additional PIVs ANESTHETIC CONSIDERATIONS Large-bore IV access and IV when asleep POSTOP PAIN IV analgesics Oral analgesics BLOOD PRODUCTS None ordered INFORMED CONSENT PARQ and risks/benefits of anesthetic plan discussed with Patient Additional Consent Issues: Risk/benefit of blood products discussed Dental Risk discussed with patient PATIENT'S CODE STATUS IN OR FULL - full code Associated attestation - Esteban Rosas MD - 06/08/2020 7:32 AM PDTPt seen and exami indigo; agree with documentation and plandocumented in this encounter Miscellaneous Notes PMC/ANE PreOp Note - Alka Rosales MD - 06/07/2020 9:26 PM PDTROS: HPI: Monty An is a 70yo male presenting for a RIGHT HIND FOOT NAILING 2/2 right charcot an kle fracture. PMHx is notable for: - Atrial fibrillation, not on AC - HTN - Cirrhosis, chart history of esophageal varices - etoh abuse (6 beers/day per chart review) - Peripheral neuropathy (to knees bilaterally) - Coagulopathy, likely due to liver disease - DVT right common femoral vein (on heparin) No reported history of anesthesia related complications. Appropriately NPO. No known drug allergies. COVID 19 negative on 06/07 Prior Anesthetic Problems: No Reported Grade 3 view in 2019, maybe 2-3 with BURP. Recomm ended using glideoscope Pulmonary: no shortness of breath no cough no wheezing no Recent Respiratory Infection Pt. Has no asthma no COPD No dx of sleep apnea Risk factors for sleep apnea: Age>50 Cardiovascular: Reported 3/6 systolic murmur at LLSB Lab Results Component Value Date WBC 5.78 06/07/2020 HB 12.2 06/07/2020 HCT 37.9 06/07/2020 PLT 281 06/07/2020 MCV 96.4 06/07/2020 RDW 46.6 06/07/2020 TTE 06/02/20 - EF 55-60& - normal LV size - mild concentric LVH - LV function normal - appearance of AV valve is suggestive of a prosthesis. Leaflets mildy calcified. No stenos is or regurgitation. Stroke volume is decreased - no obvious valvular vegetations TTE 08/26/18 1. Overall left ventricular systolic function is normal with, an EF between 65 - 70 %. 2. The right ventricle is normal in size and function. 3. There is mild bi-atrial enlargement. 4. There are no clinically signficant valvular abnormalities. 5. There are no clinically significant changes noted in comparison to his previous echocard iographic study, done 05/01/17. Functional Capacity: Low - palpitations no chest pain no CHF hypertension (recently hypotensive) no CAD Sx no v alvular problems/murmurs arrhythmia Atrial fibrillation/flutter no pacemaker/ICD GI/Hepatic: Liver Tests: Last 72 hours (or 3 results) no GI Bleed no GERD liver disease (reported six beers per day ) esophageal varices and cirrhosis Renal: Lab Results Component Value Date NA 138 06/06/2020 K 3.7 06/06/2020 CL 102 06/06/2020 BICARB 31 06/06/2020 BUN 9 06/06/2020 EGFRAFRICAN >60 06/06/2020 EGFRNONAFR >60 06/06/2020 CR 0.93 06/06/2020 GLU 112 06/06/2020 CA 8.9 06/06/2020 ANIONGAP 5 06/06/2020 ANIONALBCOR 8 06/01/2020 no renal failure electrolyte abnormalities hypokalemia and hyponatremia 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 No clot ting disorders No hemoglobin disorders Infectious Disease:Hospitalization in 08/2019 for necrotizing soft tissue infection associa katlin with hardware, abscess, and osteomyelitis of left ankle & MRSA. S/p 6 weeks vanc. Skin: open wounds Active Skin Infections AutoImmune Disorders: No autoimmune disorders Physical Exam General: Appearance: Age appropriate and No distress LOC: Alert HEENT: Normocephalic/Atraumatic, Oropharyngeal mucosa pink/moist and Normal sclerae/conjunctivae Airway: Dentition: dentition is normal Dentition Comments: chipped tooth upper right back [place] ti: 2 Mouth Opening: > 3 cm TM Distance:> 6 cm C-Spine ROM: Limited extension Neck Anatomy: Normal Jaw Protrusion: Limited (lower incisors only meet upper incisors) Pulmonary: Respiratory: pulmonary exam normal Breath Sounds: breath sounds normal Cardiovascular: Rhythm: Irregular Rate: Normal Other findings: peripheral edema Abdomen: General: Distended and Ascites Body Habitus: obesity Bowel Sounds: bowel sounds are normal GI Comments: distended abdomen with fluid wave Musculoskeletal: Range of Motion: Normal range of motion Musculoskeletal Comments: Moving all extremities s pontaneously in bed. Limited ability to assess ROM but grossly normal Neuro/Psych: Affect: Normal Cognitive Status: Normal Speech: Normal speech Strength: Decreased Muscle Tone: Decreased Movement: Normal Sensation: Abnormal Comments: Strength intact bilaterally in upper extermities and lower as able to be assessed. Endorses decreased sensation to touch up to the knee on the right and left lower extremity. Moving al l extremities spontaneously. Grossly normal as able to assess Skin: Venous stasis changes bilaterally on LE Upper extremities with multiple areas of ecchymoses on hands and forearms. On left forearm and arm, multiple areas of hypopigmentation Color: , erythema and altered pigmentation Temperature: Warm Conditions: Rash Comments: erythema and edema of the LLE up the knee; [place] thema extending into the popliteal fossa of the R leg. Rash on the inner thigh of the right lieg Associated attestation - Esteban Rosas MD - 06/08/2020 7:32 AM PDTPt seen and exami indigo; agree with documentationdocumented in this encounter Plan of Treatment Not on filedocumented as of this encounter Procedures + +--------+ + + + | Procedure Name | Priori | Date/Time | Associated Diagnosis | Comments | | | ty | | | | + +--------+ + + + | ANE ETT | Routin | 06/08/2020 | | Results for this | | | e | 9:09 AM | | procedure are in the | | | | PDT | | results section. | + +--------+ + + + documented in this encounter Results ETT (06/08/2020 9:09 AM PDT) + + + | Narrative | Performed At | + + + | Alka Rosales MD 06/08/2020 9:11 AM AIRWAY MANAGEMENT - | | | ETT Time of Placement: 06/08/2020 8:06 AM Intubation Reason: For | | | surgical procedure Positioning: Supine Location Performed:OR | | | OXYGENATION Patient was preoxygenated No apneic oxygenation Grade: | | | Grade 1 - Ventilated by mask Manual in-Line Stabilization: No | | | Induction:Routine, without Cricoid Pressure INTUBATION ATTEMPT | | | 1 Blade Type: Mikhail Blade #: 3 Laryngoscopic View: Grade III | | | Surgical Airway: no Surgical Airway ATTEMPT 2 Videolaryngoscopy: | | | Glidescope Intubation adjuncts: w/ Stylet Laryngoscopic View: Grade | | | I Surgical Airway: no Att 2 Surgical Airway ETT DETAILS ETT | | | Type:Standard, Hi-Lo Cuffed Intubation Type: Oral Cuff Status: | | | Cuffed Size: 7.5 ETT secured with adhesive tape Depth at Lip: 23 | | | cm Airway Leak: No CONFIRMATION airway not difficult Number | | | of Attempts: 2 Atraumatic placement Positive for EtCO2:Waveform | | | capnography Breath Sounds: Bilateral and equal NARRATIVE | | | Attending was physically present for the critical portions of the | | | procedure as described in the procedure note Attending/Authorizing | | | Provider: Esteban Rosas MD Performing Provider: Alka | | | MD Bobby Procedure Comments: First attempt with MAC 3 blade. | | | Grade 3 view. May have needed longer blade or Romero blade. Decided | | | to change to glidescope. Re-bag masked patient before second attempt | | | with glidescope. Grade 1 view with glidescope. | | + + + documented in this encounter Visit Diagnoses Not on filedocumented in this encounter Administered Medications + +--------+ + +------+------+ | Medication Order | MAR | Action | Dose | Rate | Site | | | Action | Date | | | | + +--------+ + +------+------+ | ceFAZolin (ANCEF) injection | Given | 06/08/20 | 2,000 mg | | | | INTRAPROCEDURE PRN, Starting Tue | | 20 8:12 | | | | | 06/08/20 at 0812, Until Tue | | AM PDT | | | | | 06/08/20 at 1113 | | | | | | + +--------+ + +------+------+ +---+---+ | | | +---+---+ + +-------+ +--------+---+---+ | fentaNYL (SUBLIMAZE) injection | Given | 06/08/20 | 50 mcg | | | | INTRAPROCEDURE PRN, Starting Tue | | 20 9:30 | | | | | 06/08/20 at 0804, Until Tue | | AM PDT | | | | | 06/08/20 at 1113 | | | | | | + +-------+ +--------+---+---+ +-------+ +---------+---+---+ | Given | 06/08/20 | 100 mcg | | | | | 20 8:04 | | | | | | AM PDT | | | | +-------+ +---------+---+---+ +---+---+ | | | +---+---+ + +-------+ +--------+---+---+ | glycopyrrolate (PF) (VIKTORIYA) | Given | 06/08/20 | 0.2 mg | | | | injection soln INTRAPROCEDURE | | 20 10:37 | | | | | PRN, Starting Sun06/08/20 at | | AM PDT | | | | | 1037, Until Sun06/08/20 at 1113 | | | | | | + +-------+ +--------+---+---+ +---+---+ | | | +---+---+ + +-------+ +--------+---+---+ | HYDROmorphone (DILAUDID) | Given | 06/08/20 | 0.3 mg | | | | injection INTRAPROCEDURE PRN, | | 20 10:07 | | | | | Starting Sun06/08/20 at 0939, | | AM PDT | | | | | Until Sun06/08/20 at 1113 | | | | | | + +-------+ +--------+---+---+ +-------+ +--------+---+---+ | Given | 06/08/20 | 0.3 mg | | | | | 20 9:44 | | | | | | AM PDT | | | | +-------+ +--------+---+---+ | Given | 06/08/20 | 0.2 mg | | | | | 20 9:39 | | | | | | AM PDT | | | | +-------+ +--------+---+---+ +---+---+ | | | +---+---+ + + + +---+---+---+ | lactated ringers (LR) bolus | given by | 06/08/20 | | | | | INTRAPROCEDURE CONTINUOUS PRN, | | 20 10:06 | | | | | Starting Sun06/08/20 at 0720, | anesthes | AM PDT | | | | | Until Sun06/08/20 at 1113 | iology | | | | | + + + +---+---+---+ + + +---+---+---+ | given by anesthesiology | 06/08/20 | | | | | | 20 9:50 | | | | | | AM PDT | | | | + + +---+---+---+ | given by anesthesiology | 06/08/20 | | | | | | 20 9:35 | | | | | | AM PDT | | | | + + +---+---+---+ +---+---+ | | | +---+---+ + +-------+ +--------+---+---+ | lidocaine (XYLOCAINE MPF) 2 % | Given | 06/08/20 | 100 mg | | | | (20 mg/mL) injection | | 20 8:04 | | | | | INTRAPROCEDURE PRN, Starting Tue | | AM PDT | | | | | 06/08/20 at 0804, Until Tue | | | | | | | 06/08/20 at 1113 | | | | | | + +-------+ +--------+---+---+ +---+---+ | | | +---+---+ + +-------+ +------+---+---+ | neostigmine (PROSTIGMIN) | Given | 06/08/20 | 1 mg | | | | intravenous, INTRAPROCEDURE PRN, | | 20 10:37 | | | | | Starting 06/08/20 at 1037, | | AM PDT | | | | | Until 06/08/20 at 1113 | | | | | | + +-------+ +------+---+---+ +---+---+ | | | +---+---+ + +-------+ +------+---+---+ | ondansetron (ZOFRAN) injection | Given | 06/08/20 | 4 mg | | | | INTRAPROCEDURE PRN, Starting Tue | | 20 10:40 | | | | | 06/08/20 at 1040, Until Tue | | AM PDT | | | | | 06/08/20 at 1113 | | | | | | + +-------+ +------+---+---+ +---+---+ | | | +---+---+ + +-------+ +---------+---+---+ | PHENYLEPHrine 100 mcg/mL IV | Given | 06/08/20 | 100 mcg | | | | syringe INTRAPROCEDURE PRN, | | 20 9:49 | | | | | Starting 06/08/20 at 0807, | | AM PDT | | | | | Until 06/08/20 at 1113 | | | | | | + +-------+ +---------+---+---+ +-------+ +---------+---+---+ | Given | 06/08/20 | 100 mcg | | | | | 20 9:46 | | | | | | AM PDT | | | | +-------+ +---------+---+---+ | Given | 06/08/20 | 100 mcg | | | | | 20 8:28 | | | | | | AM PDT | | | | +-------+ +---------+---+---+ +---+---+ | | | +---+---+ + + + + +--------+---+ | PHENYLEPHrine 25 mg/250 mL (0.1 | Rate/Dos | 06/08/20 | 0.6 | 35.75 | | | mg/mL) IV infusion (ADC) | e Change | 20 10:10 | mcg/kg/m | mL/hr | | | intravenous, INTRAPROCEDURE | | AM PDT | in | | | | CONTINUOUS PRN, Starting Tue | | | | | | | 06/08/20 at 0840, Until Tue | | | | | | | 06/08/20 at 1113 | | | | | | + + + + +--------+---+ + + + +--------+---+ | Rate/Dose Change | 06/08/20 | 0.7 | 41.71 | | | | 20 10:05 | mcg/kg/m | mL/hr | | | | AM PDT | in | | | + + + +--------+---+ | Rate/Dose Change | 06/08/20 | 0.5 | 29.79 | | | | 20 10:03 | mcg/kg/m | mL/hr | | | | AM PDT | in | | | + + + +--------+---+ +---+---+ | | | +---+---+ + +-------+ +-------+---+---+ | propofoL (DIPRIVAN) injection | Given | 06/08/20 | 30 mg | | | | INTRAPROCEDURE PRN, Starting Tue | | 20 8:13 | | | | | 06/08/20 at 0805, Until Tue | | AM PDT | | | | | 06/08/20 at 1113 | | | | | | + +-------+ +-------+---+---+ +-------+ +--------+---+---+ | Given | 06/08/20 | 170 mg | | | | | 20 8:05 | | | | | | AM PDT | | | | +-------+ +--------+---+---+ +---+---+ | | | +---+---+ + +-------+ +-------+---+---+ | rocuronium injection | Given | 06/08/20 | 20 mg | | | | INTRAPROCEDURE PRN, Starting Tue | | 20 9:22 | | | | | 06/08/20 at 0804, Until Tue | | AM PDT | | | | | 06/08/20 at 1113 | | | | | | + +-------+ +-------+---+---+ +-------+ +-------+---+---+ | Given | 06/08/20 | 60 mg | | | | | 20 8:04 | | | | | | AM PDT | | | | +-------+ +-------+---+---+ +---+---+ | | | +---+---+ documented in [...]
--- OUTSIDE RECORDS SUMMARY | ~2020-08-04 | XMS | Encounter Summary ---
Demographics + + + | Address | [address] | | | [place] [address] | + + + | Home Phone [...] Team Providers + +------+ + | Care Financial Compliance Officer Name | Role | Phone | + +------+ + | Dustin Perez MD | PCP | | + +------+ + Reason for Visit + +--------+ + | Reason | Onset | Comments | | | Date | | + +--------+ + | Medication | 06/03/ | Nasreen | | Assistance Referral | 2020 | | + +--------+ + Encounter Details +--------+ + + + + | Date | Type | Department | Care Team | Description | +--------+ + + + + | 06/03/ | Documentati | Medication | Anthony Fry [address] | Medication | | 2020 | on | Assistance Prgm | [address] | Assistance Referral | | | | Pharmacy [address] [place], [place] | ([place]) | | | | [address] | [address] | | | | | [place], [place] | | | | | | [address] | | | | | | [phone] | | | +--------+ + + + [...] this encounter Miscellaneous Notes Telephone Encounter - Nick Lo E - 07/15/2020 4:10 PM PDTDocumentation needed to comp lete the application process has not been provided by the patient. Referring back to clinic. Please note: MAP will not actively pursue this referral until the necessary documentation i s provided. No further MAP follow up. TTelephone Encounter - Anthony Fry - 06/16/2020 9:39 AM PDTMAP Status Update - Eliquis LDVM to check status of patient's portion of application and to call MAP back immediately i f not received or prefer to be re-sent with other methods (mail, e-mail, fax). Next MAP follow up date: 1 month elephone Encounter - Tad Fry - 06/04/2020 3:28 PM PDTMAP Status Update: Eliaditi Patient: Received MAP HIPPA form awaiting patient's portion of application Provider: Received from provider (Signed by Dr. Lo Calderon) Next MAP follow up: 2 weeks elephone Encounter - Tad Fry - 06/03/2020 3:56 PM PDTReceived a referral for [facility] to identify available assistance for Eliquis Contact to Patient: LDVM and mail to patient and also e-mailed Chioma Hilliard since patient is currently admitted. Provider: E-mailed to Chioma Hilliard Next MAP follow up: 2 weeks documented in this encounter Plan of Treatment [...]
--- OUTSIDE RECORDS SUMMARY | ~2020-08-04 | XMS | Encounter Summary ---
Demographics + + + | Address | [address] | | | [place] [address] | + + + | Home Phone | | + + + | Preferred Language | Unknown | + + + | Marital Status | Single | + + + | Synagogue Affiliation | Unknown | + + + | Race | White | + + + | Ethnic Group | Not or | + + + Author + + + | Author | [facility] | | | and [place] | + + + | Organization | [facility] | | [...] Providers + +------+ + | Care Fire Support Man Name | Role | Phone | + +------+ + | Dustin Perez MD | PCP | | + +------+ + Reason for Visit +---------+ + | Reason | Comments | +---------+ + | Results | [facility] | +---------+ + Encounter Details +--------+ + + + + | Date | Type | Department | Care Team | Description | +--------+ + + + + | 10/27/ | Documentati | [facility] | Jaspreet Gunderson, | Results | | 2019 | on | INFECTIOUS DISEASE | Liang Quintana MD | ([facility], | | | | [address] | [address] | [address]) | | | | [place], [place] | [place] [address] | | | | | [address] | [phone] | | | | | [phone] | | | +--------+ + + + [...]
--- OUTSIDE RECORDS SUMMARY | ~2020-08-04 | XMS | Encounter Summary ---
Demographics + + + | Address | [address] | | | [place] [address] | + + + | Home Phone [...] Team Providers + +------+ + | Care Air Moving Technician Name | Role | Phone | + +------+ + | Dustin Perez MD | PCP | | + +------+ + Encounter Details +--------+--------+ + + + | Date | Type | Department | Care Team | Description | +--------+--------+ + + + | 06/01/ | Travel | | | | | 2020 | | | | | +--------+--------+ + [...]
--- OUTSIDE RECORDS SUMMARY | ~2020-08-04 | XMS | Encounter Summary ---
Demographics + + + | Address | [address] | | | [place] [address] | + + + | Home Phone | | + + + | Preferred Language | Unknown | + + + | Marital Status | Single | + + + | Hindu Affiliation | NRP | + + + [...] Team Providers + +------+ + | Care Refueling Rampman Name | Role | Phone | + [...] | 2020 | cheduled | [facility] | [address] | | | | | for Health and | [facility] [place] | | | | | Healing [address] | [address] | | | | | [address] [place] for | [phone] | | | | | Health and Healing, | | | | | | [facility] | | | | | | Floor [place], [place] | | | | | | [address] | | | | | | [phone] | | | +--------+ + + + [...] PDTFormatting of this note might be different tonie ruiz the original. [facility] Orth[facility] Today's date: 10/14/2019 Orthopaedic Diagnoses: MRSA osteomyelitis of left calc/talus/tibia, Failed ankle fusion Surgeries: - 09/04/2019: LLE I&D, HWR of hindfoot IMN, Abx IMN, 4 compartment fasciotomies - 09/06/2019: LLE I&D, fasciotomy closure PHONE VISIT FOR TWAN Araujo: Mr. Monty An is a 69 year old male, he is now 6 months since surgery. Currently he is wlaking and doing great by his report. He is on oral suppression antibitoics with plna to do this until October 2020 per his ID doctor locally. . He is still taking local woun d care. The wounds are almost [...] 3 views Cory Carmen MD [facility] [address] Mailcode: [address] [place] [address] The patients encounter was accomplished [...] at a critical access hospital site at [facility]. The patient stated they were located at their home in [place] at the time o f the telephone [...]
--- OUTSIDE RECORDS SUMMARY | ~2020-08-04 | XMS | Encounter Summary ---
Demographics + + + | Address | [address] | | | [place] [address] | + + + | Home Phone [...] Team Providers + +------+ + | Care Strap Stitcher Name | Role | Phone | + +------+ + | Dustin Perez MD | PCP | | + +------+ + Reason for Visit + +--------+ + | Reason | Onset | Comments | | | Date | | + +--------+ + | Lab Results | 10/02/ | | | | 2019 | | [...] | | | [address] | [facility] | | | | | Loop Physician's | [place], [place] | | | | | Pavilion, [facility] floor | [address] | | | | | [place], [place] | [phone] | | | | | [address] | | | | | | [phone] | | | +--------+ + + + [...] this encounter Miscellaneous Notes Telephone Encounter - Rosa Mills MA - 10/02/2019 8:24 AM PSTReceived lab results fr 09/23/19 not from current week. Rosa Landon Appointment Coordinator [facility], Infectious Disease documented in this e ncounter Plan of Treatment Not on filedocumented as [...]
--- OUTSIDE RECORDS SUMMARY | ~2020-08-04 | XMS | Encounter Summary ---
Demographics + + + | Address | [address] | | | [place] [address] | + + + | Home Phone [...] + + + | Author | [facility] | + + + | Organization | [facility] | + + + | Address [...] Team Providers + +------+ + | Care Surgical Technology Instructor Name | Role | Phone | [...] Description | +--------+---------+ + + + | 06/08/ | Surgery | 6A Intra Op [id number] | Marty Fam, | RIGHT HINDFOOT | | 2020 | | [address] | [address] | NAILING | | | | [facility] | [place], [place] | | | | | Hospital Admitting | [address] | | | | | Desk Located on the | [phone] | | | | | 9th floor | | | | | | [place], [place] | | | | | | [address] | | | +--------+---------+ + + + [...] + + + | Blood Pressure | 133/69 | 06/08/2020 6:53 AM | | | | | PDT | | + + + + + | Pulse | 77 | 06/08/2020 6:53 AM | | | | | PDT | | + + + + + | Temperature | 36.7 C (98.1 F) | 06/08/2020 6:53 AM | | | | | PDT | | + + + + + | Respiratory Rate | 15 | 06/08/2020 6:53 AM | | | | | PDT | | + + + + + | Oxygen Saturation | 96% | 06/08/2020 6:53 AM | | | | | PDT | | + + + + + | Inhaled Oxygen | - | - | | | Concentration | | | | + + + + + | Weight | 99.3 kg (218 lb 14.7 | 06/07/2020 6:45 AM | | | | oz) | [...] patient was felt appropriate for [facility] and the patient and/or family members agree [...] a SNF "I certify that post-hospital inpatient usp facility care is medically necessar y on a continuing basis for treatment of the same condition for which inpatient acute hospit al care was received." 1. MATT NELSON) OFFICER TO FOLLOW 2. PPD PER FACILITY [...] and skin examined. 3. Follow up in [place] at 6 weeks for check with surgeon Dr. Fam If local surgeon, Dr. Coffman, unable to provide follow up, please have patient follow up in [place] with Dr. Fam's office. Postoperative Discharge Instructions [...] and ask for the orthopaedic surgery resident care companion. Pain Management: All medications must be taken [...] MD . Specialty: Family Medicine Contact information [address] [place] [address] Contact information for after-discharge care Discharge Destination [facility] . Service: Half-Way Contact information [address] [address] Code Status for Facility Status: Full Code [...] 81 mg Tbec ----- Discharge Patient To: [facility]-Way Facilit Discharging Physician: Lamine Aguilar MD Attending Physician: Dr. Maryt Fam Thank you for the opportunity to take care of Diane An during this inpatient stay, it has been our pleasure. Please call with any questions. Lamine Aguilar MD [facility] Department of Orthopaedics and Rehabilitation PGY-3 Pager [phone] documented in this en counter Discharge Instructions Instructions Christina Rhoades MSW - 06/03/2020Alcohol and Drug Treatment Resources During your hospitalization, you were given a brief substance use screening. If you are int erested in obtaining more information about alcohol or drug treatment, or are curious about available supports in your community, the following resources may be helpful. [facility]'s National Helpline (also known as the Treatment Referral Routing Service) is a conf idential, free, 76-gtft-s-day, 857-vus-l-year, information service, in Arabic and South African, for individuals and family members facing substance abuse and mental health issues. Call 1-043-084Go Kin Packs (3904) or visit the online treatment locators at http://findtreatment.s [facility].gov/ Info Dial from your mobile phone or landline to speak to a specialist who can help you jimmy askew about resources in your area Fellowship Alcoholics Anonymous: www.aa.org to find the meeting closest to you [phone] Narcotics Anonymous [phone] Alcohol and Drug Helpline (adults) 9-656-514-RVPH (3679) [phone] (youth/family members) (South African speaking) SMART Recovery (Self-Management and Recovery Training) www.Ipanema Technologies.org Refuge Recovery (A Yarsani Path to Recovering from Addiction) http://www.refugeSignix.org Celebrate Recovery (A Mike-Centered Recovery Program) http://www.ITao/ Outpatient Treatment [facility] Website: http://www.[facility].org/ Central Contact Services Available By Self-Referral: Adult Outpatient Youth Outpatient Problem Gambling Treatment [facility] Website: http://www.[facility].org/ Services Available By Self-Referral: Women s Residential at [facility] - Detoxification & Stabilization at [facility] - Adult Outpatient at [facility] - Enhanced Youth and Family Services - [employer] Website: http://Range Fuels/ Central Contact Services Available By Self-Referral: Adult Outpatient Youth Outpatient [facility] [place] Website: http://www.lifeTaste Guru.org/ Central Contact Phone: or Toll Free Services Available By Self-Referral: Adult Outpatient Youth Outpatient Youth Prevention Enhanced Youth and Family Services Problem Gambling Treatment [facility] Central Contact Services Available By Self-Referral: Medication Assisted Treatment for Opioid Use Residential Treatment [facility] Health, Recovery & Community Website: http://www.codainc.org/ Services Available By Self-Referral: Men s and Women s Residential Adult Outpatient at [facility] Medication Assisted Treatment for Opioid Use [facility] Website: http://www.depnixonreatmentcenters.org/ Adult Gender Specific Residential Adult Outpatient Youth Outpatient [facility] Website: http://www.[facility].org/ Services Available By Self-Referral: Adult Gender Specific Residential (allows couples and children) Adult Outpatient Youth Outpatient [facility] Website: http://www.SinDelantal.Mxaor.org/ Services Available By Self-Referral: Adult Outpatient or en Espaol You can also call your insurance directly, as there may be other options covered through authorGEN insurance. Harm Reduction Drug Use The safest [...] getting into trouble, help them to s elim ira medical help Let first aid responders know [...] in, knowing that it will soon pass. Fci Resources [facility] Team [employer]ries [address] [place] [address] http://www.[facility].org 12 step/AA program: 7 p.m. Wed. & Sat. Men's showers: 5:45-6:30 p.m. Sun-Sun Women's shower s: 10:30-11:15 a.m. Wed. Dinner: 5:45 p.m. Sun-Sat Fci: 5:45 p.m. Men only, TB card/sobriety required. $5 a night for senior care, meal included. -Sun. Sign up @ 5:45p.m. 12-step/AA program offered. Men's and women's showers available for $1. Bus s ervice: 6 [place] [facility] [address] [place] [place] [address] http://www.[facility] hospital[facility].org check in 5:45 p.m. Transit: Max All, 16,12,19,20. Men only, TB card, baptism service not required, check in 5:45 p.m., ONOFFMIX (?)Tegile Systems system, clean a nd sober. Hours: 24 hours for the [place]. www.[facility] hospital[facility]emission.org [employer] (TPI) [address] [facility] [place] [id number] http://www.tprojects.org Sign-up, 8 a.m.-12p.m.; 1p.m.- 7:30 p.m., Mon.-Fri. Call for details and to be placed on [facility] wait list. Women's shower sign-up 8 a.m. Transit: [facility]/Yellow, 4, 9, 17, 77 TB card required, waiting list, case management available, clean/sober (case management [facility]); [facility] (men only); [facility] (women only) Bus: [employer]. Transitional Housing [employer] [phone] http://www.Favbuy.org Hours: 24/7 Independent living for disabled and dual-diagnosis. Priority for chronically mentally ill. [facility] [address] [place] [phone] http://Plazapoints (Cuponium).org 8:30a.m.- 5p.m. Mon.-Sun. Transit: 4, 6, 33, 44 Mental illness housing referrals; full service mental health clinic; client property manage ment/ payee service; DUII program. [facility] [address] [place] [address] Intake Line: [phone] (initial appointment) http://www.Plazapoints (Cuponium).org 24 hours Transit: DELMAR Homeless and mentally ill persons only, 30 single room occupancy units, transitional housin g; Waitlist for permanent housing. Must be referred through a [place] clinic. Claudia Sepulveda [address] [place] [address] [place] [phone] http://www.[facility].org 8:30 a.m.- 5:00 p.m. Mon-Fri. Transit: , Streetcar Maintaining fourteen transitional apartments where homeless families can stay for up to 6 m [facility]. Supporting families with long-term service coordination, advocacy, and referrals. [employer] (Umesh) [address] [place] [phone] http://www.Doutíssima.org 8 a.m.-5 p.m. Mon.-Fri. Closed noon-1 p.m. daily. Transit: 50, 53. A family senior care. Call daily for availability. Support to stabilize households that are moiz eless. Families pay 30 percent of their adjusted monthly income. Utility assistance also carlos ilable. [facility] [address] [place] [address] http://www.VoIPshield Systemsnw.org Hours:9 a.m.-7 p.m., Sun.-.; Sunday by appointment only. Transit: 19, 20, MAX Canal Internet line Emergency Housing Assistance program through vouchers for short-term motel stays, placement in local shelters and direct rent assistance for families with children only. Assistance wi th utility bills and some ashley assistance for necessary items. Short-term case management an d bi-lingual information services. JOIN [address] [place] [address] http://www.Z80 Labs Technology Incubator 10 a.m.-3 p.m. Sun.-Sun. Transit: Max Blue, Green, Red, 72, 77 Provides day time drop-in center with coffee, showers, bathrooms, hygiene products, laundry vouchers, mail, limited locker storage, computer use, and free telephone use for both indiv iduals and families. [facility] [place] [address] Transitional housing for adults with severe mental illness. Must be referred through a [facility] macy clinic or other social service agency. Must have a case managers; 2 month temporary césar herring. [facility] [address] [place] [address] http://www.Access ScientificMeta.org 9a.m.-5p.m. Mon. Wed.; 9a.m.-8p.m.Thur.; 10a.m.-2p.m. Fri. To assist low-income and homeless families meet basic human needs. _To educate, encourage a nd support families to begin the process toward self-sufficiency. Services require proof of income and follow the Federal Poverty Guidelines. Serving , , and [facility]. documented in this encounter Medications at [...] Appointments: Follow up with Dr. Coffman in [place] 3 weeks from surgery. Disposition: Discharge to SNF later today. Has been accepted to SNF in [place]. Spoke wi th Dr. Parra's clinic in [place] and they are willing to take care of Mr. An' care p ost operatively. Have provided an imaging disk and operative report. Lamine Aguilar MD | PGY-3 [facility] Department of Orthopaedics and Rehabilitation Personal Pager [phone] | For urgent, after-hour, questions please page [phone] ondLamine MD - 020 6:21 AM PDT ORTHOPAEDIC [...] events/Subjective: Pain well controlled Slept well overnight [facility] Objective: Vitals: Pulse: 74 BP: 114/51 Temp: [...] likely to leave this antibitoic dante f cydneyver. He seems to understand and we both [...] Appointments: Follow up with Dr. Coffman in [place] or Dr. Joselito sumner 3 weeks from surgery. Disposition: Has been accepted to SNF in [place] and patient would like to return there d ue to proximity to his social system. Will reach out again to Dr. Parra's office in [place] today. If surgeon there is unable to provide care, will look at getting patient to SNF hardik ser to [place]. Lamine Aguilar MD | PGY-3 [facility] Department of Orthopaedics and Rehabilitation Personal Pager [phone] | For urgent, after-hour, questions please page [phone] ondLamine MD - 020 8:13 AM PDT ORTHOPAEDIC [...] likely to leave this antibitoic dante f savage. He seems to understand and we both [...] to discharge patient closer to home in [place]. If surgeon there is unable to provide care, will look at getting patient to SNF closer to [place]. Lamine Aguilar MD | PGY-3 [facility] Department of Orthopaedics and Rehabilitation Personal Pager [phone] | For urgent, after-hour, questions please page [phone] Leanna Deepthi AGACN - 06/07/2020 7:34 AM PDT RLE: In [...] Appointments: TBD Disposition: Hoping to discharge to [place] near home, JUAN PABLO Barnett Orthopaedic Trauma Surgery Pager: [phone] Phone [phone] Lo Duggan MD - 06/06/2020 10:35 AM [...] started Lo Calderon MD Orthopaedic Surgery, PGY1 [id number] ope, Carolyn Hunt MD - 0 06/05/2020 1:47 PM PDT [facility] Progress Note Hospital Day #4 ID: [...] mass index is 30.29 kg/m. Date 06/05/20 07 - 06/06/20 0659 Shift [id number] 24 Hour Total INTAKE Shift Total OUTPUT [...] with you. Carolyn Ly MD Clinical Hospitalist [facility] Pager [phone] I spent 37 minutes in the care [...] (06/02) Lo Calderon MD Orthopaedic Surgery, PGY1 [id number] Lo Duggan MD - 0 06/04/2020 10:18 [...] (06/02) Lo Calderon MD Orthopaedic Surgery, PGY1 [id number] Demetria Chapman MD - 06/03/2020 8:07 AM [...] DEMETRIA LAUREANO MD Chief Resident Orthopedic Surgery [id number] [facility] [address] [place] [address] ricila Trent - 0 06/02/2020 5:04 PM [...] started Lo Calderon MD Orthopaedic Surgery, PGY1 [id number] IKAPetersYasmeen otero MD - 06/01/2020 11:30 PM PDT [facility] DEPARTMENT OF ORTHOPAEDICS & REHABILITATION HISTORY & [...] Retired Lives alone in an apartment in [place] MEDICATIONS: Prior to Admission Medications Prescriptions acetaminophen [...] this time The orthopaedics consult pager is #[phone], please call with questions. Yasmeen Herr MD Orthopaedic Surgery Resident, PGY-2 [facility] [id number] Associated attestation - Malik Mcmillan MD - [...] of Orthopedics & Rehabilitation - Orthopaedic Trauma [facility] documented in this encounter Consult Notes Carolyn Ly MD - 06/11/2020 10:17 AM PDT [facility] Progress Note Hospital Day #10 ID: [...] Date 06/05/20 0700 - 06/06/20 0659 Shift [phone] [phone] 24 Hour Total INTAKE Shift Total OUTPUT [...] with you. Carolyn Ly MD Clinical Hospitalist [facility] Pager [phone] I spent 39 minutes in the care of this patient. Greater than 50% of the time was spent cou nseling and coordination of care, including treatment of neuropathy, L heal ulcer, LE edema, lasix dosing and B12 repletion. ope, Carolyn Hunt MD - 0 06/10/2020 4:31 PM PDT [facility] Progress Note Hospital Day #9 ID: [...] Date 06/05/20 07 - 06/06/20 0659 Shift [phone] [phone] 24 Hour Total INTAKE Shift Total OUTPUT [...] with you. Carolyn Ly MD Clinical Hospitalist [facility] Pager [phone] I spent 36 minutes in the care of this patient. Greater than 50% of the time was spent cou nseling and coordination of care, including treatment of neuropathy, L heal ulcer, LE edema. ope, Carolyn Hunt MD - 0 06/09/2020 9:16 AM PDT [facility] Progress Note Hospital Day #8 ID: [...] Date 06/05/20 0700 - 06/06/20 0659 Shift [phone] 24 Hour Total INTAKE Shift Total OUTPUT [...] results) - Refreshable Recent Labs 06/07/20 0606/08/20 0630 06/09/20 0325 WBC 5.78 6.62 7.37 HB 12.2* [...] with you. Carolyn Ly MD Clinical Hospitalist [facility] Pager [phone] I spent 39 minutes in the care [...] Body mass index is 30.53 kg/m. Intake/Output 06/08: - Intake: 456 (456 IV) - Output: [...] are no prior exams available for comparison. [place] Duplex B/L (06/02) "Bilateral: The duplex scanner [...] In the OR it was decided that sophia washington was not a good candidate for [...] on AC per choice s/p discussion w/outpatient venture capital analyst. KERRI [id number] (age, HTN hx). Plan: - Continue home [...] Unable to find EGD records (not at [facility], not at [facility]), pt doesn't remember where the pr ocedure [...] restarting tamsulosin 0.4 mg daily Aida Murrieta Sub-Medical Office Professional Instructor, [facility] Fourth Year Medical Student Pager #[phone] signed by Carolyn Ly MD at 06/08/2020 [...] surgical prospective post operatively. Carolyn Ly MD Radio Director Clinical and Teaching Hospitalist Services [facility] Pager [phone] I spent 37 minutes in the care of this patient. Greater than 50% of the time was spent cou nseling and coordination of care, including treatment of DVT, heal ulcer, PT, discharge plan Aida Pitts - 06/07/2020 8:23 AM PDTFormatting of this note might be different from t migdalia original. CLINICAL HOSPITALIST SERVICE PROGRESS NOTE 24 [...] In the OR it was decided that sophia washington was not a good candidate for [...] on AC per choice s/p discussion w/outpatient venture capital analyst. KERRI [id number] (age, HTN hx). Plan: - Continue home [...] Unable to find EGD records (not at [facility], not at [facility]), pt doesn't remember where the pr ocedure [...] restarting tamsulosin 0.4 mg daily Aida Murrieta Sub-Medical Office Professional Instructor, [facility] Fourth Year Medical Student Pager #[phone] signed by Carolyn Ly MD at 06/07/2020 [...] for VTE following surgery. Carolyn Ly MD Radio Director Clinical and Teaching Hospitalist Services [facility] Pager [phone] I spent 42 minutes in the care of this patient. Greater than 50% of the time was spent cou nseling and coordination of care, including treatment of DVT, leg wounds, discharge planning . Carolyn Ly MD - 06/06/2020 2:33 PM PDT [facility] Progress Note Hospital Day #5 ID: [...] Date 06/05/20 07 - 06/06/20 0659 Shift [phone] 24 Hour Total INTAKE Shift Total OUTPUT [...] with you. Carolyn Ly MD Clinical Hospitalist [facility] Pager [phone] I spent 36 minutes in the care of this patient. Greater than 50% of the time was spent cou nseling and coordination of care, including treatment of neuropathy, exercise, surgical plan and LE edema. hiChioma arriaza, PharmD - 06/05/2020 2:34 PM PDTAnticipate patient will be transitioned from heparin IV drip to ap ixaban (Eliquis) 5 mg BID at time of discharge or sooner. Due to patient's copay of ~$183 per month. Enrolled patient in [facility] Medication Assistance Program ( ) and initiated [...] benefits letter or pension award ? recent paycheck stubs showing year to date totals (30 [...] He expressed understanding and questions were answered. [facility] will follow up with patient in 2 weeks. [facility] is aware that patient is currently [...] of the mattress. MediHoney Please have your MINE EQUIPMENT DESIGN ENGINEER order MediHoney for this patient through [employer] Web Catalog. T he item number for this product is MediHoney Gel #[id number]. Please only order 1-2 dressings at a time and allow 24 hours for the product to be delivere d." ida Murrieta - 06/04/2020 9:15 AM PDT CLINICAL HOSPITALIST [...] be, and he wasn't sure. We checked [facility] and [facility] Sy stems and neither facility had his [...] are no prior exams available for comparison. [place] Duplex B/L (06/02) "Bilateral: The duplex scanner [...] In the OR it was decided that sophia washington was not a good candidate for [...] on AC per choice s/p discussion w/outpatient venture capital analyst. KERRI [id number] (age, HTN hx). Plan: - Continue home [...] trying to find EGD records (not at [facility], not at [facility]) #Alcohol Use Disorder Status: Chronic, uncontrolled. Drinks 72oz of beer a day. No history of withdrawal symptoms per patient and per last admission. Plan: -Discontinue CIWA protocol -Recommend folic acid 1mg and thiamine 100 mg daily for 3 doses -Appreciate IMPACT reccs #BPH Status: Controlled. Pt currently asymptomatic Plan: -Recommend restarting tamsulosin 0.4 mg daily Aida Murrieta Sub-Medical Office Professional Instructor, [facility] Fourth Year Medical Student Pager #[phone] signed by Carolyn Ly MD at 06/04/2020 4:35 PM PDT [...] recommend B12 repletion . Carolyn Ly MD Radio Director Clinical and Teaching Hospitalist Services [facility] Pager [phone] I spent 37 minutes in the care [...] ACCESS TO THIS INFORMATION IS ON A WUMM-DO-WZMP BASIS ONLY AND I S PROVIDED FOR [...] UD) for this patient. Due to current IMPACT census, a formal IMPACT team consult will not be completed, but the following information can help guide patient's options for AUD MAT at [facility]. Consult unit for resources. Additionally, if patient is interested in meeting [facility] next week, please do not hesitant [...] alcohol use disorder. , Leilani Nixon, MSN, ACCOUNT SUPPORT MANAGER-C pager [phone] Improving Addiction Care Team (IMPACT) Chioma Benavidez PharmD - 06/03/2020 11:25 AM PDT Pharmacy [...] or tamsulosin prior to this admission. His [facility] pharmacy also confirmed that they do not [...] Information: Patient and Pharmacy [id number], [address] [place] [address]; Tel: Reliability: Reliable Anticipated Needs for Discharge: Anticipate patient will need to be on an oral anticoagulant. Called patient's Rx plan, Carlene ( ) and patient has a coinsurance of 40% for brand name prescriptions: - Eliquis 5 mg BID for 30 day supply = $183.07 (same cost for Xarelto and Pradaxa is on a m ore expensive tier) - warfarin #100 tablet bottle = ~$7 per fill Spoke with Medication Assistance Program at [facility] - submitted application for bakari Downey round [...] regarding this information please contact pharmacy, pager [phone] Chioma Hilliard PharmD Aida Deleon - 06/03/2020 [...] are no prior exams available for comparison. [place] Duplex B/L (06/02) "Bilateral: The duplex scanner [...] In the OR it was decided that sophia washington was not a good candidate for [...] on AC per choice s/p discussion w/outpatient venture capital analyst. KERRI [id number] (age, HTN hx). Plan: - Continue home [...] trying to find EGD records (not at [facility], not at [facility]) #Alcohol Use Disorder Status: Chronic, uncontrolled. Drinks 72oz of beer a day. No history of withdrawal symptoms per patient and per last admission. Plan: -Recommend CIWA protocol one more day -Recommend folic acid 1mg and thiamine 100 mg daily for 3 doses -IMPACT consult placed #BPH Status: Controlled. Pt currently asymptomatic Plan: -Recommend restarting tamsulosin 0.4 mg daily Aida Murrieta Sub-Medical Office Professional Instructor, [facility] Fourth Year Medical Student Pager #[phone] signed by Malik Craig MD at 06/03/2020 [...] information, whe n appropriate. Malik Craig MD [employer] [place] Division of Hospital Medicine Pager [phone] I spent 51 minutes of floor/unit time [...] with outpatient cardiologis t. On ASA 81. [id number] (age, HTN hx). Plan: - Continue home digoxin 125 mcg daily - Resume home ASA 81 per surgeon's comfort - Goal resting rate < 110, continue to monitor #Elevated BNP Etiology: Unclear. In favor of atrial stretching due to volume status. Last echo 08/2018 [facility] home EF 65-70%, mild bi-atrial enlargement, no clinically [...] home tamsulosin 0.4 mg daily Aida Murrieta Sub-Medical Office Professional Instructor, [facility] Fourth Year Medical Student Pager #[phone] Associated attestation - Malik Craig MD - [...] information, whe n appropriate. Malik Craig MD [employer] [place] Division of Hospital Medicine Pager [phone] I spent 50 minutes of floor/unit time in care of this patient, of which greater than 50% wa s spent counseling and coordinating care, including counseling patient on DVT management, co ordinating care with ortho Uzma Espinal same - 06/02/2020 4:17 AM PDTAssociated Order(s): IP [...] fract ure. On 05/24, pt went to [facility] in [place], [place] for right ankle pain and was [...] file Gets together: Not on file Attends yarsani service: Not on file Active member of [...] Fib Not on AC. On ASA 81. [id number] (age, HTN hx). Per pt, after a risk/benefit discussio n with venture capital analyst, decided against chronic AC. -Digoxin Level -Continue [...] 0 Rate of cardiac , non fatal SC, non fatal cardiac arrest 0 risk factors - 0.4% (very low) 1 risk factors - 0.9% (low) 2 risk factors - 6.6%, (moderate) 3 or >risk factors - 11% (high) ACC/AHA Perioperative Guidelines: 1. Need for emergency noncardiac surgery? b. No -> Proceed to next step 2. Active Cardiac Conditions? These conditions mandate further investigation and manageme nt. A. Acute SC within 7 days: no B. Unstable angina/Recent SC (7- 30 days): no C. Decompensated CHF: [...] consult on this patient. 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 After being evaluated in the [place] ED 05/24 he spent >7 days in [...] of the risks and OK with venkatesh ding with surgery. - Proceed with surgery. - [...] Mr Watson's care. Randy Lazo M.D., Ph.D. 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 Medications Prior to [...] Resp SpO2 06/01/20 2227 06/01/20 2218 06/01/20 22206/01/20 22206/01/20222606/01/20 222 (!) 134/52 37.1 C 78 69 pulses/min [...] 01, 20202325 EKG: Rate: 89 Rhythm: a-fib [place]: LAD Intervals: normal ST/T Segments: no ischemic changes [CR] 2326 Labs reviewed and notable for: - INR [...] anesthetic history is: no prior complications. The [facility] sedation checklist, in accordance with [facility] policy, was used. The patient was given [...] mg 0.5 mg intravenous Given 06/02/2020 005 propofoL (DIPRIVAN) injection 80 mg intravenous Given [...] (L) 0.70 - 1.30 mg/dL EGFR - [facility] >60 >60 mL/min EGFR NON -[facility] >60 >60 mL/min SODIUM, PLASMA (LAB) 135 [...] continues to be awake & alert. VSS. veta Graham RN - 06/02/2020 1:04 AM PDTUnable to [...] - 06/01/2020 6:[address] [facility]: Chronic edema to lower legs and neuropathy. [...] taken with patient. lan of Care - Jaylin Joiner, PT - 06/11/2020 10:17 AM PDT Physical [...] Removal of right calcaneal pin 06/08/2020 [place] 1.Right tibial and fibular osteotomy 2.Right ankle and subtalar joint fusions (hindfoot nail) 3.Right peroneal tendon release Status Update: Patient plans to DC to a SNF in [facility] via personal vehicle today. Patien t doesn't know what type of vehicle that his family is bringing in before the end of the PT session. CM updated that patient is going to go with a wheelchair van after PT session. Relevant Precautions: non weight bearing right lower extremity. Reviewed notes and xrays w [facility] Dr. Aguilar - confirmed left lower extremity weight bear as tolerated. Discussed use of CA M boot as option. Subjective: Patient agreeable to PT session. "Please don't help me. I want to be independen t." re: transfer supine > sitting EOB. Pain: did not rate Individuals present for session other than therapist and pt: rehabilitation construction specialist (Rose) and later CN A (Violetta) Objective: [...] all needs met. RN in ro om. [facility] BASIC MOBILITY Difficulty turning over in bed [...] to do/total assistance - Total/Dependen t Assist [facility] Basic Mobility Total Score 12 Interpretation of [facility] Short Form - Basic Mobility: CMS Modifier [...] in hand and all needs met. RN tiki cuevas. RN in room. Assessment: Patient still presents [...] PDTNursing Handoff Patient Daily Goal: Rest (06/06/202016) [facility] IP NURSE HANDOFF: Cespedes hospital course events: [...] family member to transport him (SNF in [facility]) andoff - Mandi Kearney RN - 06/10/2020 10:21 AM PDTNursing Handoff Patient Daily Goal: Rest (06/06/202016) [facility] IP NURSE HANDOFF: Cespedes hospital course events: [...] PDTNursing Handoff Patient Daily Goal: Rest (06/06/202016) [facility] IP NURSE HANDOFF: Cespedes hospital course events: [...] 4. Removal of right calcaneal pin 06/08/2020 [place] 1. Right tibial and fibular osteotomy 2. Right ankle and subtalar joint fusions (hindfoot nail) 3. Right peroneal tendon release Relevant Precautions: non weight bearing right lower extremity. Reviewed notes and xrays with Dr. Aguilar - confirmed left lower extremity weight bear as tolerated. Discussed use of C AM boot as option. Subjective: patient reports doing well, would like to go to [facility], awaiting weight bear as tolerated status to [...] nursing aware. Those present during session: nursing [facility] BASIC MOBILITY Difficulty turning over in bed [...] to do/total assistance - Total/Dependen t Assist [facility] Basic Mobility Total Score 11 Interpretation of [facility] Short Form - Basic Mobility: CMS Modifier [...] needed at discharge: defer Maribell Small PT andoff - Mao Amaya RN - 06/09/2020 1:54 PM PDTNursing Handoff Patient Daily Goal: Rest (06/06/202016) [facility] IP NURSE HANDOFF: Cespedes hospital course events: [...] Improving As evidenced by: Dressing changed on , sunday, per wound care notes. Good strength [...] splint Barriers to discharge: mobility andoff - Barbie Leal RN - 06/08/2020 5:49 PM PDTNursing Handoff Patient Daily Goal: Rest (06/06/202016) [facility] IP NURSE HANDOFF: Cespedes hospital course events: [...] splint Barriers to discharge: mobility andoff - Monique, Costa kennedy RN - 06/08/2020 2:34 PM PDTNursing Handoff Patient Daily Goal: Rest (06/06/202016) [facility] IP NURSE HANDOFF: Cespedes hospital course events: [...] Tejas andersen RN - 06/08/2020 12:00 PM Carisa Phase I Discharge Criteria (Stable For Transfer): [...] pain medication information: none Functional Epidural: No PYROTECHNIC MIXER: No Respiratory: RR: 13 , O2 Sat: [...] Procedure Stop SunJun 08, 2020 1056 Location: [facility] Surgeon(s) and Role: * Marty Fam MD - Primary Anesthesiologist: Anesthesiologist: Esteban Rosas MD [facility] Resident: Akla Rosales MD Staff: Graduate Assistant: Joe Velasquez RN Scrub: ST Debbie Graduate Assistant Relief: Jay Cavanaugh RN Graduate Assistant Orientee: Chito Brooke RN Blog Writer: Lamine Aguilar MD Pre Op Dx: RIGHT CHARCOT ANKLE Post Op Dx: same Procedure: Right tibial and fibular osteotomy Right ankle and subtalar joint fusions (hindfoot nail) Right peroneal tendon release Anesthesia: Regional/Block And GETA Complications: None Findings: N/A Estimated Blood Loss: 450 Drains: * No LDAs found * Specimens None Implants/Grafts Implant Name Model No. Inv. Item Serial No. Hand Hide Stretcher Lot No. LRB No. Used Action Size NAIL 11.5MM 16CM RIGHT HINDFOOT TRIGEN INTRAMEDULLARY FUSION - [id number] NAIL 11. 5MM 16CM RIGHT HINDFOOT TRIGEN INTRAMEDULLARY FUSION [employer] [id number] Right 1 Impla nted SCREW BONE 5MM 70MM TRIGEN FEMUR LOW PROFILE - [id number] SCREW BONE 5MM 70MM TRIGE N FEMUR LOW PROFILE [employer] [id number] Right 1 Implanted SCREW BONE 5MM 37.5MM TRIGEN FEMUR LOW PROFILE - [id number] SCREW BONE 5MM 37.5MM T RIGEN FEMUR LOW PROFILE [employer] [id number] Right 1 Implanted SCREW BONE 5MM 85MM TRIGEN FEMUR LOW PROFILE - [id number] SCREW BONE 5MM 85MM TRIGE N FEMUR LOW PROFILE [employer] [id number] Right 1 Implanted SCREW BONE 5MM 30MM TRIGEN FEMUR LOW PROFILE - [id number] SCREW BONE 5MM 30MM TRIGE N FEMUR LOW PROFILE [employer] [id number] Right 1 Implanted SCREW BONE 5MM 30MM TRIGEN FEMUR LOW PROFILE - [id number] SCREW BONE 5MM 30MM TRIGE N FEMUR LOW PROFILE [employer] [id number] Right 1 Implanted Indications for Procedure(s): Diane [...] wishes to proceed. Surgical Findings In Brief: Avery edema in RLE Description of the procedure(s) [...] 12. Imaging at 6 weeks 3V ankle Marty Fam MD 06/08/2020, 12:00 PM rief Op Note - Lamine Aguilar MD - 06/08/2020 10:51 AM PDTFormatting of this note might be different from the orig inal. Date of procedure: 06/08/2020 Times Event Time In Procedure Start SunJun 08, 2020 0820 Location: [facility] Surgeon(s) and Role: * Marty Fam MD - Primary Anesthesiologist: Anesthesiologist: Esteban Rosas MD [facility] Resident: Alka Rosales MD Staff: Graduate Assistant: Joe Velasquez RN Scrub: ST Debbie Graduate Assistant Relief: Jay Cavanaugh RN Graduate Assistant Orientee: Chito Brooke RN Blog Writer: Lamine Aguilar MD Pre Op Dx: RIGHT CHARCOT ANKLE Right leg cellulitis Right heel chronic heel ulcer Post Op Dx: Same Procedure: Right hindfoot fusion Anesthesia: General Estimated Blood Loss: 400mL Specimens None Implants/Grafts Implant Name Model No. Inv. Item Serial No. Hand Hide Stretcher Lot No. LRB No. Used Action Size NAIL 11.5MM 16CM RIGHT HINDFOOT TRIGEN INTRAMEDULLARY FUSION - [id number] NAIL 11. 5MM 16CM RIGHT HINDFOOT TRIGEN INTRAMEDULLARY FUSION [employer] [id number] Right 1 Impla nted SCREW BONE 5MM 70MM TRIGEN FEMUR LOW PROFILE - [id number] SCREW BONE 5MM 70MM TRIGE N FEMUR LOW PROFILE [employer] [id number] Right 1 Implanted SCREW BONE 5MM 37.5MM TRIGEN FEMUR LOW PROFILE - [id number] SCREW BONE 5MM 37.5MM T RIGEN FEMUR LOW PROFILE [employer] [id number] Right 1 Implanted SCREW BONE 5MM 85MM TRIGEN FEMUR LOW PROFILE - [id number] SCREW BONE 5MM 85MM TRIGE N FEMUR LOW PROFILE [employer] [id number] Right 1 Implanted SCREW BONE 5MM 30MM TRIGEN FEMUR LOW PROFILE - [id number] SCREW BONE 5MM 30MM TRIGE N FEMUR LOW PROFILE [employer] [id number] Right 1 Implanted SCREW BONE 5MM 30MM TRIGEN FEMUR LOW PROFILE - [id number] SCREW BONE 5MM 30MM TRIGE N FEMUR LOW PROFILE [employer] [id number] Right 1 Implanted Complications: N/A Lamine Aguilar MD Post Operative Plan: Antibiotics: Ancef x 72hr Weight bearing: NWB RLE ROM: As tolerated through knee. Maintain splint Post operative Images: None Special: Chemothromboppx per primary. Ok to start POD0 lan of Care - Brina Rodriguez RN - 06/08/2020 9:56 AM PDT.[facility] - Care Management Reason for Admission: [...] Retired lives alone in an apartment in [place]. He must ascend 13 steps to enter [...] WC. Discharge Plan: NWB, will [facility] [place] on 06[facility]11/20. Warm Hand-Off: Unit CM Guillermina Oden and Nils Amador given hand-off Please see other disciplines' progress notes for their discharge recommendations. Will cont inue to follow for 90 day episode post discharge. Ld Rodriguez BSc, BSN, MANDO [facility] CJR/WALT Tool Room Gear Machine Operator C: [phone] Pager: [phone] [email or web address] Mail Code: S 8L amryn - Alonso Lin RN - 06/08/2020 12:47 AM PDTNursing Handoff Patient Daily Goal: Rest (06/06/202016) [facility] IP NURSE HANDOFF: Cespedes hospital course events: [...] R ankle Barriers to discharge: Surgical course amryn - Tree Fall RN - 06/07/2020 8:02 PM PDTNursing Handoff Patient Daily Goal: Rest (06/06/202016) [facility] IP NURSE HANDOFF: Cespedes hospital course events: [...] to discharge: Surgical course lan of Mavis Preciado Yobani Gonzalez randolphnitin - 06/07/2020 1:50 PM PDT Physical Therapy [...] rekha julia and urinals all in reach. [facility] BASIC MOBILITY Difficulty turning over in bed [...] to do/total assistance - Total/Dependen t Assist [facility] Basic Mobility Total Score 7 Interpretation of [facility] Short Form - Basic Mobility: CMS Modifier [...] care (He would like to disch to [facility] in [place].) Equipment recommendations: to be determined Cathie Doss, HOME COMFORT ADVISOR [id number] Steve - Britt Amaya RN - 06/06/2020 2:01 PM PDTNursing Handoff Patient Daily Goal: RN advocate for mobilization, pain control, hygiene, and pulm exercises (06/05/201953) [facility] IP NURSE HANDOFF: Cespedes hospital course events: [...] R ankle Barriers to discharge: Surgical course andlelia - Alonso Carter RN - 06/06/2020 6:00 AM PDTNursing Handoff Patient Daily Goal: Rest (06/06/202016) [facility] IP NURSE HANDOFF: Cespedes hospital course events: [...] pain control, hygiene, and pulm exercises (06/05/201953) [facility] IP NURSE HANDOFF: Cespedes hospital course events: [...] place , upper extremity elbow fleixon, shoul randi flexion limited on left due to old [...] call light, urinal and water in reach. [facility] BASIC MOBILITY Difficulty turning over in bed [...] to do/total assistance - Total/Dependen t Assist [facility] Basic Mobility Total Score 7 Interpretation of [facility] Short Form - Basic Mobility: CMS Modifier [...] care ([facility] [place] Equipment recommendations: to be determined JELANI Tristan [id number] lan of Care - Esha Faria OT - 06/04/2020 11:35 AM PDTFormatting of this note might be different from the orig ina. Occupational Therapy Evaluation [id number] DIANE AN Date of : 1950 Start [...] Transfers: Dependent transfers with ceiling lift assist [facility] daily activity assessment [facility] DAILY ACTIVITY - How much help from another person does the patient currently need f or: Lower body dressing 2 - Alot Bathing 2 - Alot Toileting 2 - Alot Upper body dressing 3 - Little Personal grooming 3 - Little Eating meals 4 - None [facility] Daily Activity Total Score 16 1 - Unable to do/total assistance = Total/Dependent Assist 2 - A lot = Maximum/Moderate Assistance 3 - A little = Minimal/Contact Guard Assist/Supervision 4 None = Modified independent/Independent Interpretation of [facility] Short Form Daily Activity: CMS Modifier (G-Code) [...] Esha Faria OT andoff - Sada Serrano AZAR - 06/04/2020 8:20 AM PDTNursing Handoff Patient Daily Goal: "get up to chair and get to moving" (06/03/20 0852) [facility] IP NURSE HANDOFF: Cespedes hospital course events: [...] 06/03/2020 5:15 PM PDTReferral Source: Handoff for [facility] Consult: Alcohol d ependence - [...] substance use resources in Pt's AVS. MJ Bustamante CSWA Evening/Weekend Social Work Pager: [phone] lan of Mavis - Shruthi Tanner LCSW - 06/03/2020 3:55 PM PDTReason for referral: SBIRT Referral source: [facility] SW consult referral Assessment/Intervention: SW acknowledged [facility] SW consult referral for SBIRT. Per chart review, pt drinks 6 beers woody ly. SW attempted multiple times to reach pt by phone (this tag writer is working remotely today) but pt's phone kept ringing busy each time. Plan (including collaboration with other disciplines): SW handing off to Evening SW to complete in person if able to, otherwise this tag writer will r e-attempt tomorrow. ROBBIE Lao Float Cellar Pumper Pager [phone] lan of Danny Downs, PT - 06/03/2020 2:17 PM PDTFormatting of this note might be different from t he original. Physical Therapy Evaluation [id number] [facility] Day: 2 Date of : 1950 Start [...] invalid, he would like to go to [facility] in [place], felix feels it is an excellent facility. He [...] Patient / Family Goal: get better Communication: Arabic Barriers: None Pain: no reports of pain [...] assessed Gait Not assessed Outcome Measure: 1. [facility] BASIC MOBILITY Difficulty turning over in bed [...] to do/total assistance - Total/Dependen t Assist [facility] Basic Mobility Total Score 7 Interpretation of [facility] Short Form - Basic Mobility: Predicts discharge post hospitalization ([facility] raw score: 6-24) Home = 20.1 Home with home care = 17.9 custodial facility = 13.6 Inpatient rehabilitation facility = 13.6 jail care = 11.5 Vivienne Parra S. The use of functional outcome measure in acute care to guide discharg e recommendations. J Acute Chemical Waste Management Technician. 2012;3(3):248 Pt Education/Treatment: (1440 to 1511) S: [...] edge of bed as appropriate Time in: 141 Time out: 1511 Patient was seen for [...] last September 2019, he was admitted to [facility] for management of a 3 year old [...] progress his mobility as tolerated. Interpretation of [facility] Short Form - Basic Mobility: CMS Modifier [...] discharge summary. Danny Collier PT, DPT Pager: [phone] andoff - Mickey Bains RN - 06/03/2020 2:15 PM PDTNursing Handoff Patient Daily Goal: "get up to chair and get to moving" (06/03/20 0819) [facility] IP NURSE HANDOFF: Cespedes hospital course events: [...] air mattress today Mobility: sling to chair, REfrem SPAULDING NWB - per pt he hasn't been walking in 2 weeks CIWA - pt reports about 6 beers daily, scoring low Next hep level is by 1700 andoff - Radha Serrano RN - 06/03/2020 8:10 AM PDTNursing Handoff Patient Daily Goal: to eat tonight (06/02/20 1611) [facility] IP NURSE HANDOFF: Cespedes hospital course events: [...] level is by 0830 andoff - Chris Beth RN - 06/02/2020 3:08 PM PDTMeets Phase [...] pain medication information: none Functional Epidural: N/A PYROTECHNIC MIXER: N/A Respiratory: RR: 17 , O2 Sat: [...] Procedure Start SunJun 02, 2020 1356 Location: [facility] Surgeon(s) and Role: * Malik Mcmillan MD - Primary Anesthesiologist: Anesthesiologist: Raimundo Hernandez MD COMMERCIAL LENDER: John Villarreal CRNA Staff: Graduate Assistant: Ni Ramirez RN Scrub: ST Debbie Mail Processor: Varun Patel RT Blog Writer: Alana Willard MD; Demetria Laureano MD Pre [...] of Service: 06/02/2020 Attending Surgeon:Malik Mcmillan MD Administrator Social Welfare(s):MD Alana Ferrera MD Preoperative Diagnosis: Right ankle [...] likely that the reason he has this kpgrtd-km-teinvfta scar is likely because he has been [...] going to require an amputation. This requires leah e decision making as this side appears [...] next course of action. Malik Mcmillan MD ZMW/KAMILAH /[id number] signed by Malik Mcmillan MD at 06/04/2020 8:29 AM [facility] - [facility] Ojeda - 06/01/2020 9:53 [...] [facility] | [address] | [place] [address] | | | SERVICES, CORE | PARK [...] | | | LABORATORY | | | [facility] | | | SERVICES, | | | [...] MDRD equation recommended by the National | [facility] | | Kidney Disease Education Program. Estimated GFR Interpretive | LABORATORY | | Information: <60 mL/min/1.73 sq m Chronic Kidney | SERVICES, [facility] | | Disease <15 mL/min/1.73 sq m [...] | + + + + + | [facility] | [address] | [place] [address] | | | SERVICES, [place] | ZULMA [...] | | its performance characteristics determined by [facility]. It | | | has not been [...] + + | Performing | Address | City/State/[facility] | Phone Number | | Organization | | | | + + + + + | [facility] | [address] | [place] [address] | | | MICROBIOLOGY LAB | [place]ma [place]en | | | + + + + + | [facility] | [address] | [place], [place] | | | MICROBIOLIGY LAB | [place] | [address], [place] | | + + + + [...] [facility] | [address] | [place] [address] | | | SERVICES, CORE | PARK [...] [facility] | [address] | [place] [address] | | | SERVICES, CORE | PARK [...] | + + + + + | [facility] | [address] | [place] [address] | | | SERVICES, [place] | ZULMA [...] 97 | 70 - 99 mg/dL | [facility] - | | | GLUCOSE, | | [...] | [facility] | [address] | [place], [place] | | | ALEX M[facility]AN [facility] | [facility] | [id number] | | | TESTS | | | [...] [facility] | [address] | [place] [address] | | | SERVICES, | [address] [...] | + + + + + | [facility] | [address] | [place] [address] | | | SERVICES, | [address] [...] | + + + + + | [facility] | [address] | [place] [address] | | | SERVICES, F[place]N | ZULMA [...] [facility] | [address] | [place] [address] | | | SERVICES, CORE | ZULMA [...] | + + + + + | [facility] | [address] | [place] [address] | | | SERVICES, CORE | PARK [...] | | | LABORATORY | | | [facility] | | | SERVICES, | | | [...] | 10 | 8 - 25 | [facility] | | | INE RATIO | | [...] | + + + + + | [facility] | [address] | [place] [address] | | | SERVICES, FERM[place]N | ZULMA [...] | + + + + + | [facility] | [address] | [place] [address] | | | SERVICES, CORE | PARK [...] | + + + + + | [facility] | [address] | [place] [address] | | | SERVICES, CORE | [address] | | | + + + + + COVID-19 (06/06/2020 9:55 AM PDT) + + + + [...] | | its performance characteristics determined by [facility]. It | | | has not been [...] + + + + + | [facility] | [address] | [place] [address] | | | MICROBIOLOGY LAB | [place]ulma [place]en | | | + + + + + | [facility] | [address] | [place], [place] | | | MICROBIOLIGY LAB | [address] [place] | [address], | | + + + + + [...] | + + + + + | [facility] | [address] | [place] [address] | | | SERVICES, CORE | ZULMA [...] | + + + + + | [facility] | [address] | [place] [address] | | | SERVICES, CORE | ZULMA [...] | | | LABORATORY | | | [facility] | | | SERVICES, | | | [...] | + + + + + | [facility] | [address] | [place] [address] | | | SERVICES, FERMÍN | ZULMA [...] | [facility] | [address] | [place] [address] | | | SERVICES, CORE | ZULMA [...] [facility] | [address] | [place] [address] | | | SERVICES, CORE | PARK [...] [facility] | [address] | [place] [address] | | | SERVICES, CORE | ZULMA [...] [facility] | [address] | [place] [address] | | | SERVICES, CORE | PARK [...] | + + + + + | [facility] | [address] | [place] [address] | | | SERVICES, CORE | ZULMA [...] [facility] | [address] | [place] [address] | | | SERVICES, CORE | PARK [...] | + + + + + | [facility] | [address] | [place] [address] | | | SERVICES, CORE | ZULMA [...] [facility] | [address] | [place] [address] | | | SERVICES, CORE | PARK [...] | + + + + + | [facility] | [address] | [place] [address] | | | SERVICES, CORE | ZULMA [...] | + + + + + | [facility] | [address] | [place] [address] | | | SERVICES, CORE | ZULMA [...] | + + + + + | [facility] | [address] | [place] [address] | | | SERVICES, CORE | ZULMA [...] [facility] | [address] | [place] [address] | | | SERVICES, CORE | PARK [...] | + + + + + | [facility] | [address] | [place] [address] | | | SERVICES, CORE | PARK [...] [facility] | [address] | [place] [address] | | | SERVICES, CORE | ZULMA [...] not detected. The performance of the | DESU | | SUPERVISOR TESTING HIV Combo test, with or without confirmation, was not | LABORATORY | | tested in pediatric patients less than 2 years of age. NIH | SERVICES, | | guidelines recommend virologic [...] [facility] | [address] | [place] [address] | | | SERVICES, SPECIAL | PARK [...] | | | LABORATORY | | | [facility] | | | SERVICES, | | | [...] | + + + + + | [facility] | [address] | [place] [address] | | | SERVICES, CORE | ZULMA [...] signature: Silas Delgado | | | MD Bonifacio 06/03/2020 8:39 AM Preliminary: Silas Valdovinos MD [...] Valdovinos MD 06/03/2020 8:39 AM Preliminary: Silas Valdovinos | | Dictation initiated: Silas Valdovinos MD [...] | + + + + + | [facility] | [address] | [place] [address] | | | SERVICES, CORE | ZULMA [...] Range: (75 - 120) sec Heparin | VJ CORE | | levels of 0.35 - 0.7 U/mL | | + + + + + + + + | Performing | Address | City/State/Zipcode | Phone Number | | Organization | | | | + + + + + | [facility] | [address] | [place] [address] | | | FERMÍN ZABALA | [address] | | | + + + + + CAPILLARY BLOOD GLUCOSE (NO CHG), POC (06/02/2020 6:01 PM PDT) + +-------+ + + + | Component | Value | Ref Range | Performed | Pathologist | | | | | At | Signature | + +-------+ + + + | BLOOD | 90 | 70 - 99 mg/dL | [facility] - | | | GLUCOSE, | | | [facility] | | | POC | | | [place] | | | | | | [...] + + + + | [facility] | [address] | [place], [place] | | | [facility] | [address] | [address] | | | TESTS | | | [...] Performed At | + -+ + | [facility] | [facility] DEPT OF | | [facility] Adult Echocardiography Laboratory [address] | CARDIOLOGY | | [place], [place] [address] Ph: | | | Pt Name: DIANE AN | | | Study Date/Time 06/02/2020 / 4:29:48 PMMRN: [id number] | | | Most recent prior: -[facility] #: [id number] | | | No. previous echos: 0DOB: 1950 70 years Heart Rate: | | | 75 bpmHeight: 71.0 in Blood Pressure: | | | 146/67 mm/HgWeight: 190.0 lb Gender: | | | MBSA: 2.06 m | | | Order ID: [id number] Study | | | [facility] Pricila Trent RCSReferring Provider: RANDY Jones | | | ATKINModalities [...] Report | | | electronically signed by: [id number] Yani Parra MD (06/02/2020, | | | [...] | | | |Report electronically signed by: [id number] Yani Parra MD (06/02/2020, 5:15:57 PM) | | | | | | | | | | | | Final | | + -+ + + + | Procedure Note | + + | Interface, Cardiology Results - 06/02/2020 5:16 PM [facility] [email or web address] | | [facility] Echocardiography Laboratory [facility] | | [place], [place] [address] Pt Name: DIANE | | ALLEN Study Date/Time 06/02/2020 / 4:29:48 PMMRN: [id number] | | Most recent prior: -[facility] #: [id number] No. previous echos: 0DOB: | | 1950 70 years Heart Rate: 75 bpmHeight: 71.0 in Blood | | Pressure: 146/67 mm/HgWeight: 190.0 lb Gender: MBSA: | | 2.06 m | | Order ID: [id number] Study [facility] Pricila | | [facility] Provider: RANDY Sawyer Performed: 2D, Color flow, [...] and indexed values Report electronically signed by: [id number] | | Yani Parra MD (06/02/2020, 5:15:57 [...] | | | |Report electronically signed by: [id number] Yani Parra MD (06/02/2020, 5:15:57 PM) | | | | | | | | Final | + + + + + + + | Performing | Address | City/State/Zipcode | Phone Number | | Organization | | | | + + + + + | [facility] | [address] | [place], [place] | | | CARDIOLOGY | [address] | [address] | | + + + + + [...] | [facility] | [address] | [place], [place] | | | [facility] | [address] | [address] | | | TESTS | | | [...] Note | + + | Service Account, ImpressPages Res In Interface - 06/02/2020 11:29 AM [...] | | + +---------+ + + | [facility] RADIOLOGY | | | | | [facility] | | | | + +---------+ + [...] [facility] | [address] | [place] [address] | | | SERVICES, CORE | PARK [...] | + + + + + | [facility] | [address] | [place] [address] | | | SERVICES, CORE | PARK [...] | | | | | determined by [facility] | | | | | | Laboratories. See | | | | | | Compliance Statement B: | | | | | | iHELP World/CSPerformed | | | | | | By: [employer] [id number] | | | | | | [facility] | | | | | | [place], [place] [address]Afwaqrvoxa | | | | | | Director: [...] [facility] | [address] | [place], [place] | | | [facility] | | [address] | | + + + + + [...] [facility] | [address] | [place] [address] | | | SERVICES, SPECIAL | PARK [...] [facility] | [address] | [place] [address] | | | SERVICES, CORE | PARK [...] [facility] | [address] | [place] [address] | | | SERVICES, CORE | PARK [...] | + + + + + | [facility] | [address] | [place] [address] | | | SERVICES, CORE | [address] | | | + + + + + CULTURE, BLOOD BACTI & YEAST RADHA (06/02/2020 6:28 AM PDT) + + + [...] [facility] | [address] | [place] [address] | | | SERVICES, CORE | ZULMA [...] 5.1Comment: Hgb A1C | <5.7 % | [facility] | | | A1C | Interpretive | [...] | [facility] | | considered for monitoring termination clerk glycemic control in patients with: | LABORATORY [...] | + + + + + | [facility] | [address] | [place] [address] | | | SERVICES, SPECIAL | PARK [...] [facility] | [address] | [place] [address] | | | SERVICES, CORE | PARK [...] [facility] | [address] | [place] [address] | | | SERVICES, CORE | PARK [...] + + + + + | [facility] | [address] | [place] [address] | | | SERVICES, FERMÍN | [address] | | | + + + + + TROPONIN I, PLASMA (06/02/2020 3:10 AM PDT) + +-------+ + + + | Component | Value | Ref Range | Performed | Pathologist | | | | | At | Signature | + +-------+ + + + | TROPONIN I | <0.02 | <0.80 ng/mL | [facility] | | | | | [...] | + + + + + | [facility] | [address] | [place] [address] | | | SERVICES, CORE | ZULMA [...] | | | information. Performance of the [employer] Xpress SARS-CoV-2 has only | | | been established in nasopharyngeal swab and nasal wash specimens. | | | Specimen types other than nasopharyngeal swab and nasal wash may | | | give inaccurate results. Fact sheet for patients: | | | https://www.fda.gov/media/310723/download | | + + + + + + + + | Performing | Address | City/State/Zipcode | Phone Number | | Organization | | | | + + + + + | [facility] | [address] | [place] [address] | | | SERVICES, [facility] | [address] | | | + + + + + X-RAY ANKLE 3 VIEWS RIGHT (06/02/2020 3:05 AM PDT) + + | Specimen | + + | | + + + + + | Narrative | Performed At | + + + | EXAM: TIBIA AND FIBULA 2 VIEWS RT, ANKLE 3 VIEWS RIGHT HISTORY: | [facility] | | ankle fracture COMPARISON: Same day [...] Note | + -----+ | Service Account, ImpressPages Res In Interface - 06/02/2020 8:15 AM [...] Note | + -----+ | Service Account, judo In Interface - 06/02/2020 8:15 AM PDT [...] | | its performance characteristics determined by [facility]. It | | | has not been [...] + + | Performing | Address | City/State/Unm [facility] Hospitalcode | Phone Number | | Organization | | | | + + + + + | [facility] | [address] | [place] [address] | | | MICROBIOLOGY LAB | [address] | | | + + + + + | [facility] | [address] | [place], [place] | | | LUIS ROMAN | [address] | [address], [place] | | + + + + [...] + + + + | [facility] | 429 | ms | [facility] | | | | | | OF | | | | | | CARDIOLOGY | | + + + + + + | [facility]FRID[facility] | 403 | ms | [facility] [...] | [facility] | [address] | [place], [place] | | | CARDIOLOGY | [address] | [address] | | + + + + + [...] [facility] | [address] | [place] [address] | | | SERVICES, | [address] [...] | + + + + + | [facility] | [address] | [place] [address] | | | SERVICES, | [address] | | | | TRANSFUSION MEDICINE [...] | + + + + + | [facility] | [address] | [place] [address] | | | SERVICES, CORE | PARK [...] [facility] | [address] | [place] [address] | | | SERVICES, CORE | ZULMA [...] | + + + + + | [facility] | [address] | [place] [address] | | | SERVICES, | [address] [...] | + + + + + | [facility] | [address] | [place] [address] | | | SERVICES, CORE | [address] [...] | | | LABORATORY | | | [facility] | | | SERVICES, | | | [...] + + + + + + | BILI T CMNT [...] MDRD equation recommended by the National | DESU | | Kidney Disease Education Program. Estimated [...] | + + + + + | [facility] | [address] | [place] [address] | | | SERVICES, CORE | [address] | | | + + + + + ED INFORMATION EXCHANGE (06/01/2020 10:14 PM PDT) + + | Specimen | + + | | + + + + + | Narrative | Performed At | + + + | COLLECTIVE?NOTIFICATION?06/01/2020 22:14?DIANE AN?MRN: | [facility] | | [id number] Criteria Met 5 Visits In 12 Months [...] 5 MG | | | TABLET 30 [facility] 2 28.125 Rx Summary Metric Count CS II-V | | | Rx 1 CS-II Rx 1 Quantity Dispensed 390 [facility] Pres[facility] 2 | | | Unique Pharmacies 2 Benzos 0 Opioids 1 Long Acting Opioids 0 | | | E.D. Visit Count (12 mo.) Facility Visits [facility] | | | [facility] 2 [facility] 3 Total 5 Note: | | | Visits indicate total known visits. Recent Emergency Department | | | Visit Summary Date Facility City State Type Diagnoses or Chief | | | Complaint Jun 01, 2020 [facility] [place] | | [place] Emergency 10,151. Righrt ankle fracture and dislocation | | | Jun 01, 2020 [facility]. [place] Emergency Chief | | | Complaint: LEG PAIN/ NON INJURY May 24, 2020 [facility]. | | | 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 | | | [place] Emergency 10,151. cellulitis large ulcer, left lower | | | extremity 18,400. Other specified soft tissue disorders | | | 18,400. Infection and inflammatory reaction due to other internal ort | | | 18,400. Cutaneous abscess, unspecified Sep 03, [address] [facility] [address] | | | Balw[place] SophiaEfrem 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 | | | [place] Internal Medicine 18,400. Cutaneous abscess, | | | unspecified 18,400. Other specified soft tissue disorders | | | 18,400. Osteomyelitis, unspecified 18,400. Infection and | | | inflammatory reaction due to other internal ort Care Team | | | Provider Specialty Phone Fax Service Dates Unknown Half-Way | | | Facility Current RIO HUERTA , | | | Family Medicine Sep 11, 2018 - | | | Current [employer] Portal This patient has registered at the | | | [facility] Emergency Department For more | | | information visit: | | | [email or web address] | | | [email or web address] PLEASE NOTE: 1. Any care recommendations [...] or completeness of information provided. ? 2020 [employer] | | | [employer]. - www.[email or web address] | | + + + + + | Procedure Note | + + | Service Account, Rtf Results Inbound - 06/01/2020 10:16 PM PDT Formatting of this | | note might be different from the original.COLLECTIVE?NOTIFICATION?06/01/2020 | | 22:14?DIANE AN? Met 5 Visits In 12 MonthsSecurity and [...] HCL | | 5 MG TABLET 30 [facility] 2 28.125 Rx SummaryMetric Count CS II-V Rx 1 CS-II Rx 1 | | Quantity Dispensed 390 [facility] Pres[facility] 2 [facility] Pharm[facility] 2 Benzos 0 Opioids 1 Long | | Acting Opioids 0 E.D. Visit Count (12 mo.)[address] [facility] | | [address] 3 Total 5 Note: Visits indicate total known | | visits. Recent Emergency Department Visit SummaryDate Facility City State Type | | Diagnoses or Chief Complaint Jun 01, 2020 [facility] [place] | | Emergency 10,151. Righrt ankle fracture and dislocation Jun 01, [address] [facility] [address] | | [place] Emergency Chief Complaint: LEG PAIN/ NON INJURY [facility] 2020 [facility] | [facility] [place] Emergency Localized edema Heart failure, unspecified | | Type 2 diabetes mellitus with diabetic polyneuropathy Pain in right lower leg | | Hypertensive heart disease with heart failure termination clerk (current) use of aspirin | | Other termination clerk (current) drug therapy Unspecified atrial fibrillation Sep 03, 2019 | | [facility] [place] Emergency 10,151. cellulitis large | | ulcer, left lower extremity 18,400. Other specified soft tissue disorders 18,400. | | Infection and inflammatory reaction due to other internal ort 18,400. Cutaneous | | abscess, unspecified Sep 03, 2019 [facility] [place] 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 [place] | | Internal Medicine 18,400. Cutaneous abscess, unspecified 18,400. Other specified | | soft tissue disorders 18,400. Osteomyelitis, unspecified 18,400. Infection and | | inflammatory reaction due to other internal ort Care TeamProvider Specialty Phone Fax | | Service Dates Unknown Half-Way Facility Current | | RIO HUERTA MD Family Medicine Sep 11, 2018 - | | Current [employer] Software PortalThis patient has registered at the [facility] | | [place] [facility] For more information visit: | | [email or web address] PLEASE | | NOTE: 1. Any care [...] to the | | limitations of applicable Collective Policies. 3. You should consult directly with | | the organization that provided a care guideline or other clinical history with any | | questions about additional information or accuracy or completeness of information | | provided.? 2019 [employer]. - www.[email or web address] | |Jun 01, 2020 [facility] [place] Emergency | | 10,151. Righrt ankle fracture and dislocation | | | |Jun 01, 2020 [facility] [place] Emergency Chief Complaint: LEG PAIN/ NON INJURY | |May 24, 2020 [facility] [place] Emergency | | Localized edema | | Heart failure, unspecified | | Type 2 diabetes mellitus with diabetic polyneuropathy | | Pain in right lower leg | | Hypertensive heart disease with heart failure | | jail (current) use of aspirin | | Other chcf (current) drug therapy | | Unspecified atrial fibrillation | | | |Sep 03, 2019 [facility] [place] Emergency | | 10,151. cellulitis large ulcer, left lower extremity | | 18,400. Other specified soft tissue disorders | | 18,400. Infection and inflammatory reaction due to other internal ort | | 18,400. Cutaneous abscess, unspecified | | | |Sep 03, 2019 [facility] 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 [place] Internal Medicine | | 18,400. Cutaneous abscess, unspecified | | 18,400. Other specified soft tissue disorders | | 18,400. Osteomyelitis, unspecified | | 18,400. Infection and inflammatory reaction due to other internal ort | | | | | | | |Care Team | |Provider Specialty Phone Fax Service Dates | |Unknown Half-Way Facility Current | |RIO HUERTA MD Family [facility] Sep 11, 2018 - Current | | | |Collective Portal | |This patient has registered at the [facility] [place] [facility] t | |For more information visit: [email or web address] | |PLEASE NOTE: | | 1. Any [...] information provided. | | | |? 2020 [employer]. - www.[email or web address] | + + + + + + + | Performing | Address | City/State/Zipcode | Phone Number | | Organization | | | | + + + + + | [facility] | [address] | [place], [place] | [phone] | | TECHNOLOGIES | [address] | [address] | | + + + + + documented in this encounter Visit Diagnoses Not on filedocumented in this encounter Administered Medications + +--------+ + +------+------+ | Medication Order | MAR | Action | Dose | Rate | Site | | | Action | Date | | | | + +--------+ + +------+------+ | acetaminophen (TYLENOL) tablet | Given | 07/31/20 | 1,000 mg | | | | [...] + +---+ + +-------+ + +---+---+ | multivitamin-iron (ONE [...] +---+---+ + +-------+ +--------+---+---+ | potassium chloride (CHANDU Yee) | Given | 06/11/20 | 20 mEq [...] | +---+---+ + +-------+ +-------+---+ + | tobramycin (NEBCIN) injection | Given | 06/08/20 | 2.4 g | | Surgical | | INTRAPROCEDURE PRN, Starting Tue | | 20 9:43 | | | Site | | 06/08/20 at 0943, Until Tue | | AM PDT | | | | | 06/08/20 at 1059 | | | | | | + +-------+ +-------+---+ + +---+---+ | | | +---+---+ documented in [...]
--- OUTSIDE RECORDS SUMMARY | ~2020-08-04 | XMS | Encounter Summary ---
Demographics + + + | Address | [address] | | | [place] [address] | + + + | Home Phone [...] Author + + + | Author | [facility] | + + + | Organization | [facility] | + + + | [...] Team Providers + +------+ + | Care Polishing Wheel Repairer Name | Role | Phone | + +------+ + | Dustin Perez MD | PCP | | + +------+ + Encounter Details +--------+ + + + + | Date | Type | Department | Care Team | Description | +--------+ + + + + | 06/02/ | Procedure | [address] Intra Op [address] | | | | 2020 | Pass | [address] | | | | | | [address] [facility] | | | | | | Hospital Admitting | | | | | | Desk Located on the | | | | | | 9th floor | | | | | | | | | | | | [address] | | | +--------+ + + + [...]
--- OUTSIDE RECORDS SUMMARY | ~2020-08-04 | XMS | Encounter Summary ---
Demographics + + + | Address | [address] | | | [place] [address] | + + + | Home Phone | | + + + | Preferred Language | Unknown | + + + | Marital Status | Single | + + + | Voodoo Affiliation | NRP | + + + | Race | White | + + + | Ethnic Group | Not or | + + + Author + + + | Author | [facility] | + + + | Organization | [facility] | + + + | Address | [...] Team Providers + +------+ + | Care Interlocking Tower Operator Name | Role | Phone | + +------+ + | Dustin Perez MD | PCP | | + +------+ + Encounter Details +--------+ + + + + | Date | Type | Department | Care Team | Description | +--------+ + + + + | 07/12/ | Patient | [facility] | Ld Rodriguez RN | | | 2020 | Outreach | Therapy Services at | [address] | | | | | [facility] | [address] [place], | | | | | [address] | [place] [address] | | | | | [facility] | [phone] | | | | | and Healing, | | | | | | [facility] [address], | | | | | | Floor [place], [place] | | | | | | [address] | | | | | | [phone] | | | +--------+ + + + [...] Telephone Encounter - Ld Rodriguez RN - 07/12/2020 9:07 AM PDTUpdate 07/12/20 from Amie e: Not walking still non-WB. Had him at parallel bars and is doing well showing good upper bod y strength. Currently non WB still. Wound infection now on oral abx. WB by 07/23 hopefully. End of 90 days is 09/09/20. Will continue to follow for remainder of 90 day bundle. Ld Rodriguez BSc, BSN, MANDO [facility] CJR/BPTAYA Software Project Lead C: [phone] Pager: [phone] @[facility] Mail Code: [facility] 8L documented in this [...]
--- OUTSIDE RECORDS SUMMARY | ~2020-08-04 | XMS | Encounter Summary ---
Demographics + + + | Address | [address] | | | [place] [address] | + + + | Home Phone [...] Team Providers + +------+ + | Care Humanities Professor Name | Role | Phone | [...] | | | | | | Rd [facility] | | | | | | Hospital Admitting | | | | | | Desk Located on the | | | | | | 9th floor | | | | | | [place], [place] | | | | | | [address] | | | +--------+ + + + [...]
--- OUTSIDE RECORDS SUMMARY | ~2020-08-04 | XMS | Encounter Summary ---
Demographics + + + | Address | [address] | | | [place] [address] | + + + | Home Phone [...] Author | [facility] | + + + | Organization | [facility] | + + + | Address | [...] Team Providers + +------+ + | Care Bone Drier Name | Role | Phone | + [...] | 6A Intra Op [address] | Garth Cochran P, | LEFT LEG AND FOOT | | 2018 | | [address] | [address] | INCISION AND | | | | Rd [facility] | [address] | DRAINAGE, FASCIOTOMY | | | | Hospital Admitting | EXPORT, [place] | CLOSURE | | | | Desk Located on the | [address] | | | | | 9th floor | [phone] | | | | | [place], [place] | | | | | | [address] | | | +--------+---------+ + + + [...] + + + | Blood Pressure | 109/48 | 09/06/2019 8:05 AM | | | | | PDT | | + + + + + | Pulse | 67 | 09/06/2019 8:05 AM | | | | | PDT | | + + + + + | Temperature | 36.6 C (97.9 F) | 09/06/2019 8:05 AM | | | | | PDT | | + + + + + | Respiratory Rate | 18 | 09/06/2019 8:05 AM | | | | | PDT | | + + + + + | Oxygen Saturation | 97% | 09/06/2019 8:05 AM | | | | | PDT [...] Hemphill MD - 09/17/2019 12:07 PM PST [facility] Discharge Summary Discharging Provider: Johnathan Hemphill MD Discharging Attending Physician: To Henriquez MD PCP: Rio Huerta MD Admission Date: 09/03/2019 Discharge Date: 09/17/2019 Hospital Stay: 14 day(s) Discharge Location: [facility] [place] . [phone] [facility] FOLLOW UP NEEDS: 1) Infectious Disease, [facility], ~10/08/2019 2) Orthopedi dona [facility] in the Dr. Nella Parry ~10/20 [...] hindfoot. 5. Placement of an external tissue thermoforming operator, area other than breast. 6. Placement of [...] vancomycin trough levels - ID F/U in [place], ~10/08 timeframe - Wound check and suture removal by 09/26/2019; OK for SNF to remove sutures - Ortho F/U ~10/21 timeframe w/ Dr. Carmen in [facility] - Activity restrictions: LLE: NWB, elevated, [place] [...] BLED 4. Former discussion s with his physical geographer decided against anticoagulation; on 81 mg aspirin [...] follow/manage patient "I certify that post-hospital inpatient fpc facility care is medically necessar y on a continuing basis for treatment of the same condition for which inpatient acute hospit al care was received." JOHNATHAN HEMPHILL MD Discharge Destination - Selection Complete Service Provider Request Status Selected Services Address Phone Number Fax Number Hellen Calvillo [phone], [place] [phone] [facility] No service has been [...] Why: For wound re-check Contact information [address] [place] [address] RIO HUERTA MD. Go on 09/24/2019. Specialty: Family Medicine Why: Appt: Tuesday, September 24, 2019 @ 08:40am. Address: [address] [place] [address], [address], [place], [place] Contact information [facility] [address] [place] [address] Surya Coffman MD. Go on 09/30/2019. Why: Appt: Monday, September 30, 2019 @ 09:45am Contact information [address] [place] [phone] Contact information for after-discharge care Discharge Destination [facility] . Service: [address] Contact information [address] [place] [address] Discharge Physical Exam: Last 24 hour min/max [...] PGY - 3 | Internal Medicine | [id number] [facility] [place] Associated attestation - To Henriquez MD - [...] co mpletion of their assessment Patient's Name: Diane An Today's Date: 09/18/2019 Leaner Attestation Statement [...] Primary Surrogate Decision Maker Josué An son [phone] TO HENRIQUEZ MD [address] design engineering technician Division of [facility] Medicine Department of Medicine [address] [place] [address] documented in this encounter Discharge Instructions Discharge [...] follow/manage patient "I certify that post-hospital inpatient fpc facility care is medically necessar y on [...] co mpletion of their assessment Patient's Name: Diane An Today's Date: 09/17/2019 Leaner Attestation Statement [...] (per patient w ++ 1st degree FH) Mold 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 ID faculty with preference to schedule [...] BLED 4. Former discussion s with his physical geographer decided against anticoagulation; on 81 mg aspirin daily (used to be 325 but reduced to 81 2/ "GI problems"). - held asa in s/o surgery, has been restarted - continue digoxin - goal resting rate <110 # bilateral lower extremity swelling Unclear etiology. Was seeing physical geographer who is prescribing torsemide 10 mg daily [...] Dispo: patient ready to discharge tomorrow to [facility] in [place]. Code Status: Full Code Surrogate Decision Maker Primary Surrogate Decision Maker Josué An son [phone] This patient was staffed with Dr. To [...] co mpletion of their assessment Patient's Name: Diane An Today's Date: 09/16/2019 Leaner Attestation Statement [...] there are not currnet signs of decompensation Mold Yard Crane Operator on his 'near miss' and importance of good 'liver care' in future 9) Neuropathy, hereditary sensory (per patient w ++ 1st degree FH) Not noted in 'history' but with suggestion of pes cavus, and ++ family history it does r aise the qn of Sfsbgqi-Kwdxz-Qkpbs Could have been contributor to osteo Mold Yard Crane Operator re: skin/foot care (a la DM) 10) Alcohol use disorder, mild, in sustained remission, abuse 11) Encounter for long-term (current) use of antibiotics SURROGATE DECISION MAKER Surrogate Decision Maker Primary Surrogate Decision Maker Josué An son [phone] TO HENRIQUEZ MD [address] design engineering technician Division of [facility] Medicine Department of Medicine [facility] & [address] [address] Amber Wan MD - 1 11/15/2018 6:26 [...] care, follow up recs - follow up: [facility] ID faculty with preference to schedule [...] BLED 4. Former discussion s with his physical geographer decided against anticoagulation; on 81 mg aspirin daily (used to be 325 but reduced to 81 2/2 "GI problems"). - held asa in s/o surgery, has been restarted - continue digoxin - goal resting rate <110 # bilateral lower extremity swelling Unclear etiology. Was seeing physical geographer who is prescribing torsemide 10 mg daily [...] used majority of his medicare SNF days, shoe parts caser working to determine whethe r paying out of pocket is an option vs investigate other dispo options. Code Status: Full Code Surrogate Decision Maker Primary Surrogate Decision Maker Josué An son [phone] This patient was staffed with Dr. To [...] care, follow up recs - follow up: [facility] ID faculty with preference to schedule with [...] BLED 4. Former discussion s with his physical geographer decided against anticoagulation; on 81 mg aspirin daily (used to be 325 but reduced to 81 2/2 "GI problems"). - held asa in s/o surgery, has been restarted - continue digoxin - goal resting rate <110 # bilateral lower extremity swelling Unclear etiology. Was seeing physical geographer who is prescribing torsemide 10 mg daily [...] used majority of his medicare SNF days, shoe parts caser working to determine whethe r paying out of pocket is an option vs investigate other dispo options. Code Status: Full Code Surrogate Decision Maker Primary Surrogate Decision Maker Josué An son [phone] This patient was staffed with Dr. To [...] co mpletion of their assessment Patient's Name: Diane An Today's Date: 09/15/2019 Leaner Attestation Statement [...] insuff iciency: Aug 26, 2018: [facility]) 7) Essential hypertension 8) "Cirrhosis, Laennec's" (HCC) [...] it does r aise the qn of Hckfsyw-Wxmvr-Mwher Could have been contributor to osteo Mold Yard Crane Operator re: skin/foot care (a la DM) 10) Alcohol use disorder, mild, in sustained remission, abuse 11) Encounter for long-term (current) use of antibiotics SURROGATE DECISION MAKER Surrogate Decision Maker Primary Surrogate Decision Maker Josué An son [phone] TO HENRIQUEZ MD [address] design engineering technician Division of Hospital Medicine Department of Medicine [facility] & [address] [phone] o Henriquez MD - 09/13 12:33 PM PDT INPATIENT [...] co mpletion of their assessment Patient's Name: Diane An Today's Date: 09/13/2019 Leaner Attestation Statement [...] insuff iciency: Aug 26, 2018: [facility]) 7) Essential hypertension 8) "Cirrhosis, Laennec's" (HCC) [...] it does r aise the qn of Redrqvz-Tkpux-Pecvp Could have been contributor to osteo Mold Yard Crane Operator re: skin/foot care (a la DM) 10) Alcohol use disorder, mild, in sustained remission, abuse 11) Encounter for long-term (current) use of antibiotics SURROGATE DECISION MAKER Surrogate Decision Maker Primary Surrogate Decision Maker Josué An son [phone] TO HENRIQUEZ MD [address] design engineering technician Division of Hospital Medicine Department of Medicine [facility] [address] [place] [address] Johnathan Roach MD - 12/2018 11:07 AM [...] care, follow up recs - follow up: [facility] ID faculty with preference to schedule [...] BLED 4. Former discussion s with his physical geographer decided against anticoagulation; on 81 mg aspirin daily (used to be 325 but reduced to 81 2/2 "GI problems"). - held asa in s/o surgery, has been restarted - continue digoxin - goal resting rate <110 # bilateral lower extremity swelling Unclear etiology. Was seeing physical geographer who is prescribing torsemide 10 mg daily [...] used majority of his medicare SNF days, shoe parts caser working to determine whethe r paying out of pocket is an option vs investigate other dispo options. Code Status: Full Code Surrogate Decision Maker Primary Surrogate Decision Maker Josué An son [phone] This patient was staffed with Dr. To Henriquez, who agrees with the assessment and plan unle ss otherwise stated. Johnathan Hemphill MD PGY - 3 | Internal Medicine | [id number] [facility] To Mendez MD - 11/2018 8:01 AM PDT INPATIENT FACULTY PROGRESS NOTE - GM 2 Author; TO HENRIQUEZ MD Attending Physician: To Henriquez MD Hospital Day: 9 PCP: Rio Huerta MD PCP PCP Patient's Name: Diane An Today's Date: 09/12/2019 Leaner Attestation Statement [...] insuff iciency: Aug 26, 2018: [facility]) 7) Essential hypertension 8) "Cirrhosis, Laennec's" (HCC) [...] it does r aise the qn of Qobwotj-Mmlto-Hjkkj Could have been contributor to osteo Mold Yard Crane Operator re: skin/foot care (a la DM) 10) Alcohol use disorder, mild, in sustained remission, abuse 11) Encounter for long-term (current) use of antibiotics SURROGATE DECISION MAKER Surrogate Decision Maker Primary Surrogate Decision Maker Josué An son [phone] I spent ~40 minutes in the care of this patient. Greater than 50% of the time was spent co unseling and coordination of care, including visit x 3; extensive chart review (on ramos) TO HENRIQUEZ MD [address] design engineering technician Division of Hospital Medicine Department of Medicine [facility] [address] [place] [address] auri Strickland MD - 09/12/2019 7:07 AM [...] care, follow up recs - follow up: [facility] ID faculty with preference to schedule [...] BLED 4. Former discussion s with his physical geographer decided against anticoagulation; on 81 mg aspirin daily (used to be 325 but reduced to 81 2/2 "GI problems"). - held asa in s/o surgery, has been restarted - continue digoxin - goal resting rate <110 # bilateral lower extremity swelling Unclear etiology. Was seeing physical geographer who is prescribing torsemide 10 mg daily [...] used 90/100 of his medicare SNF days, shoe parts caser working to determine whether paying out of pocket is an option vs investigate other dispo options. Code Status: Full Code Surrogate Decision Maker Primary Surrogate Decision Maker Josué An son [phone] This patient was staffed with Dr. To Henriquez, who agrees with the assessment and plan unle ss otherwise stated. Gauri Strickland MD Internal Medicine [id number] signed by To Henriquez MD at 09/12/2019 [...] care, follow up recs - follow up: [facility] ID faculty with preference to schedule [...] BLED 4. Former discussion s with his physical geographer decided against anticoagulation; on 81 mg aspirin daily (used to be 325 but reduced to 81 2/2 "GI problems"). - held asa in s/o surgery, has been restarted - continue digoxin - goal resting rate <110 # bilateral lower extremity swelling Unclear etiology. Was seeing physical geographer who is prescribing torsemide 10 mg daily [...] used 90/100 of his medicare SNF days, shoe parts caser working to determine whether paying out of pocket is an option vs investigate other dispo options. Code Status: Full Code Surrogate Decision Maker Primary Surrogate Decision Maker Josué An son [phone] This patient was staffed with Dr. Huerta, [...] eager to contin ue conversation with his shoe parts caser about discharge planning. Physical Examination: Last 24 [...] care, follow up recs - follow up: [facility] ID faculty with preference to schedule [...] BLED 4. Former discussion s with his physical geographer decided against anticoagulation; on 81 mg aspirin daily (used to be 325 but reduced to 81 2/2 "GI problems"). - held asa in s/o surgery, has been restarted - continue digoxin - goal resting rate <110 # bilateral lower extremity swelling Unclear etiology. Was seeing physical geographer who is prescribing torsemide 10 mg daily [...] used 90/100 of his medicare SNF days, shoe parts caser working to determine whether paying out of pocket is an option vs investigate other dispo options. Code Status: Full Code Surrogate Decision Maker Primary Surrogate Decision Maker Josué An son [phone] This patient was staffed with Dr. Huerta, who agrees with the assessment and plan unless otherwise stated. Gauri Strickland MD Internal Medicine [id number] signed by Tiffanie Huerta MD at 09/10/2019 [...] has not been an issue. Enjoys working pa [facility] physical therapy. Denies dyspnea, nausea, abdominal pain, [...] care, follow up recs - follow up: [facility] ID faculty with preference to schedule [...] BLED 4. Former discussion s with his physical geographer decided against anticoagulation; on 81 mg aspirin daily (used to be 325 but reduced to 81 2/2 "GI problems"). - held asa in s/o surgery, has been restarted - continue digoxin - goal resting rate <110 # bilateral lower extremity swelling Unclear etiology. Was seeing physical geographer who is prescribing torsemide 10 mg daily [...] Primary Surrogate Decision Maker Josué An son [phone] This patient was staffed with Dr. Huerta, who agrees with the assessment and plan unless otherwise stated. Gauri Strickland MD Internal Medicine [id number] signed by Tiffanie Huerta MD at 09/10/2019 [...] hindfoot. 5. Placement of an external tissue thermoforming operator, area other than breast. 6. Placement of [...] Closure fasciotomy site x2 Assessment & Plan: Diane An is a 69 y.o.M with the [...] vancomycin, until further notice, ID consult for fci plan 5. Special Concerns: case managment for discharge planning, likely discharge to SNF in [facility] [place] Wound Care consulted 6. Dressings/Drains: DRESSING CARE [...] ok to discharge from ortho perspective o dce OPAT plan and dispo arrangements have been [...] 2 seconds Aidan Antonio MD Orthopedic Surgery [id number] 11:15 AM riesCory gudino MD - 09/09/2019 9:04 AM PDTOrthopaedics Attending [...] the plan as listed. Cory Carmen MD [facility] [address] [place] [address] Cory Carmen Gauri Walsh MD - 09/08/2019 7:27 AM PDT General Internal Medicine 3 Progress Note 24 Hour Events: Pharmacy completed med rec via [facility] records per pharm: "Torsemide, potassium chloride, A SA, MVI, vitamin B12, and thiamine were added to [facility] [employer] medication list. Of note, patient has n [...] BLED 4. Former discussion s with his physical geographer decided against anticoagulation; on 81 mg aspirin daily (used to be 325 but reduced to 81 2/2 "GI problems"). - held asa in s/o surgery, has been restarted - continue digoxin - goal resting rate <110 # bilateral lower extremity swelling Unclear etiology. Was seeing physical geographer who is prescribing torsemide 10 mg daily [...] Primary Surrogate Decision Maker Josué An son [phone] This patient was staffed with Dr. Huerta, who agrees with the assessment and plan unless otherwise stated. Gauri Strickland MD Internal Medicine [id number] signed by Tiffanie Huerta MD at 09/08/2019 [...] present. - he has been comfortable at [facility] assisted [facility] with aggressive PT in the past [facility] is close to [place], his home. Deepthi Collazo AGACNP - 09/08/2019 [...] hindfoot. 5. Placement of an external tissue thermoforming operator, area other than breast. 6. Placement of [...] Closure fasciotomy site x2 Assessment & Plan: Diane An is a 69 y.o.M with the [...] discharge planning, likely discharge to SNF in [facility] [place] [place] Wound Care consulted 6. Dressings/Drains: DRESSING CARE [...] capillary refill < 2 seconds Deepthi Collazo, [facility] Orthopaedic Trauma Surgery Pager [phone] Associated attestation - Cory Carmen MD - 09/08/2019 5:06 PM PDTORTHO STAFF NOTE I have personally seen, examined, and performed and independent history and physical exam o n Diane An today. I have discussed the findings with the orthopaedic trauma team resid ents and agree with the full plan as detailed in the note above. Complex right ankle infected hardware. Working on wound care for the heel wound still Setting up antibiotics for afterdischarge. Appreciate infectious disease input. I will be following this patient fci, rather than Dr cochran or El[facility]. I discussed the diagnosis, imaging studies, treatment plan and prognosis with the patient and resident. I have reviewed and the above note and agree with the plan. Please do not he sitate to call me for questions. Cory Carmen MD [facility] [address] [place] [address] Arnold Taylor MD - 09/07/2019 6:22 PM PDTFormatting of this note might be differ ent from the original. Orthopaedic Surgery Progress Note Patient: /Age: MRN: CSN: Date: Admission Date: Hospital Day: Attending Physician: Diane An 1950 69 y.o. [id number] 09/07/2019 09/03/2019 4 Garth Cochran MD Procedure(s) Performed: 1. Irrigation and excisional debridement fasciotomy sites left ankl e, medial site 6 centimeters by 32 centimeters. Lateral site 3 centimeters by 28 centimeter s. 2. Irrigation and excisional debridement plantar foot wound 2 centimeters by 4 centimeters 3. Closure fasciotomy site x2 Date of surgery: 09/06/2019 Assessment and Plan: Diane An is a 69 y.o.M with the [...] 98%, BMI 27.94 kg/(m^2). Facility age [facility] is 18 years. Exam: General: Well appearing, NAD CV/Resp: Breathing comfortably, Neurologic: Awake and alert MSK: LLE Dressings c/d/i Insensate about the lower leg/foot Wiggles toes WWP distally ARNOLD TAYLOR MD Pager: [phone] 09/07/2019 Associated attestation - Garth Cochran MD [...] to [facility] in [place] previously. Physical Examination: Last 24 hour min/max [...] BLED 4. Former discussion s with his physical geographer decided against anticoagulation; on 81 mg aspirin daily (used to be 325 but reduced to 81 2/ "GI problems"). - held asa in s/o surgery, restart - continue digoxin - goal resting rate <110 # bilateral lower extremity swelling Unclear etiology. Was seeing physical geographer who is prescribing torsemide 10 mg daily [...] Primary Surrogate Decision Maker Josué An son [phone] This patient was staffed with Dr. Huerta, who agrees with the assessment and plan. Gauri Strickland MD Internal Medicine [id number] signed by Tiffanie Huerta MD at 09/07/2019 [...] in team note. - [facility] in [place] would be a reasonable SNF for him he reports ( though the food is "terrible" the PT is excellent) Aidan Antonio MD - 09/06/2019 7:37 AM PDTORTHOPAEDICS BRIEF PROGRESS NOTE Patient: Diane An Date: 09/06/2019 Time: 7:37 AM Patient [...] seco nds Aidan Antonio MD Orthopedic Surgery [id number] 7:37 AM 09/06/2019 Gauri Walsh MD - [...] DM); HAS BLED 4. Former discussions with [facility] physical geographer decided against anticoagulation; on 81 mg aspirin daily (used to be 325 but r educed to 81 2/2 "GI problems"). - hold asa in s/o surgery - continue digoxin - goal resting rate <110 # bilateral lower extremity swelling Unclear etiology. Was seeing physical geographer who is prescribing torsemide 10 mg daily [...] Decision Maker Primary Surrogate Decision Maker Josué aviles [phone] This patient was staffed with Dr. Huerta, who agrees with the assessment and plan. Gauri Strickland MD Internal Medicine [id number] signed by Tiffanie Huerta MD at 09/06/2019 [...] Date: Admission Date: Hospital Day: Orthopaedic Attending: Diane An 1950 69 y.o. [id number] 09/05/2019 09/03/2019 2 Olivier Ansari MD Diagnosis(es): 1. Infected hardware right ankle Orthopaedic Procedure(s) & Date(s): 09/04/19: 4-compartment fasciotomy right leg, removal o f hardware right leg, I&D right leg, placement of antibiotic nail, wound vac placement Assessment & Plan: Diane An is a 69 y.o.M with the [...] to make a follow up appointment in [facility] 2 weeks with ORTHO TRAUMA [...] es pink and warm. Noel Baptiste MD [facility] [place] Department of Orthopaedics & Rehabilitation [address] [place] [address] Mail Code: [id number] [facility] [id number] Associated attestation - Olivier Ansari MD - [...] DM); HAS BLED 4. Former discussions with [facility] physical geographer decided against anticoagulation; on 81 mg aspirin daily (used to be 325 but r educed to 81 2/2 "GI problems"). - hold asa in s/o surgery - continue digoxin - goal resting rate <110 # bilateral lower extremity swelling Unclear etiology. Was seeing physical geographer who is prescribing torsemide 10 mg daily [...] Primary Surrogate Decision Maker Josué An son [phone] This patient was staffed with Dr. Huerta, who agrees with the assessment and plan. Gauri Strickland MD Internal Medicine [id number] signed by Tiffanie Huerta MD at 09/06/2019 [...] BLED 4 . Former discussions with his physical geographer decided against anticoagulation; on 81 mg aspirin daily (used to be 325 but reduced to 81 2/2 "GI problems"). - hold asa in s/o surgery - continue digoxin - goal resting rate <110 # bilateral lower extremity swelling Unclear etiology. Was seeing physical geographer who is prescribing torsemide 10 mg daily [...] Primary Surrogate Decision Maker Josué An son [phone] This patient was staffed with Dr. Huerta, [...] care at facility where he lives in [facility], was discharged to home I called and spoke with night RN at [facility] He discharged home yesterday from facility They had noted exposed hardware last week, cultured wound which has not grown and started o n PO levofloxacin 500mg daily and augmentin on 09/02 [address] was seen by Dr Castellano at [facility] who requested transfer to [facility] for orthopedic eval From last cardiology [...] within 24 hours. Please refer to excellent gallery intern H&P for full problem based plan. ILIR SPIVEY MD Internal Medicine, PGY-3 Pager: [phone] documented in this encou nter H&P Notes Bk Delacruz MD - 09/03/2019 9:26 PM PDT Internal Medicine History and Physical Attending Physician: Elizabeth Cobos Chief Complaint: HPI: 69 y.o. M w/ pmg AFIB RVR , etoh cirrhosis, left ankle fusion 3 years ago who presents with exposed screw on the dorsum of the left foot with overlying LLE cellulitis, left heel press ure ulcer, left leg fluctuance as well as gross edema and purulent drainage from screw expos ure site. He states that his leg was maybe was swollen for >1wk. He notes no pain in the leg, and is able to walk adequately with walker. He states that he first noticed screw poking through skin approximately 5 days ago, and his [facility] facility has been doing dressing changes at the screw site. They had cultured the wound which has not grown and started on PO levofloxacin 500mg daily and augme ntin on 09/02. He was thend discharged from the facility He was seen by Dr Castellano at [facility] who requested transfer to [facility] for orthopedic eval ED: VSS; clueless to severity of situation Xray-->NSTI; air on film Ortho saw him. Plans for procedure in morning. EGS saw him. Recommend hold off on abx as he is currently stable LABS: relatively unremarkable Lactate: 0.8 ESR and CRP elevated LRinec 6 No WBC; no Na derangements Past Medical History: I have updated the Problem List with the patient's relevant diagnoses. Past Medical History None I have updated the Medical History with the patient's relevant diagnoses: History reviewed . No pertinent past medical history. Review of Systems: Denies: fevers, chills, n/v, Chest pain, SOB, abd pain, heart palpitations ROS otherwise normal. Home Medications: I have obtained and documented the prior to admission medication list and it is accurate. Prior to Admission Medications Prescriptions amoxicillin-clavulanate 500-125 mg oral tablet Sig: Take 1 tablet by mouth every eight hours. Indications: skin infection digoxin 125 mcg oral tablet Sig: Take 125 mcg by mouth once daily. Indications: Ventricular Rate Control in Atrial Fibr illation gabapentin 600 mg oral tablet Sig: Take 600 mg by mouth three times daily. Indications: alcoholism levoFLOXacin 500 mg oral tablet Sig: Take 500 mg by mouth once daily. Indications: bone/joint infection loperamide 2 mg oral capsule Sig: Take 2 mg by mouth four times daily as needed for diarrhea. melatonin 3 mg oral tablet Sig: Take 3 mg by mouth once daily in the evening. tamsulosin 0.4 mg oral capsule Sig: Take 0.4 mg by mouth once daily. Facility-Administered Medications: None Allergies I have reviewed and updated the allergy list. Allergies No Known Allergies Social History I have updated the Social Hx as appropriate. Social History Tobacco Use Smoking status: Not on file Substance Use Topics Alcohol use: Not on file Social History Patient does not qualify to have social determinant information on file (likely too young ). Social History Narrative Not on file Family History Physical Exam: Last 24 hour min/max Temp: 36.6 C (97.8 F) Temp Min: 36.6 C (97.8 F) Max: 37.1 C (98.7 F) No data recorded No data recorded BP: 128/71 BP Min: 128/71 Max: 142/66 SpO2: 100 % SpO2 Min: 100 % Max: 100 % There is no height or weight on file to calculate BMI. Gen: a/ox4, NAD HENT: NC, AT, EOMI, CV: NR, RR, no mrg Pulm: CTAB, no resp distress, no wheezes Abd: soft, nttp, benign, Extremities: Has palpable DP pulse on left and venous stasis dermatitis on BLE. Numbness in left leg up to mid calf. Left lower extremity with market erythema, swelling and fluctuance versus crepitance exten ding from inferior to the knee all the way to the toes. Sensation decreased. Dorsum of the left foot demonstrates a protruding screw covered in purulent material. normal muscle tone, Skin: Skin is warm and dry. No erythema. Laboratory Interpretation: Lab Results Component Value Date WBC 8.07 09/03/2019 HB 10.2 09/03/2019 HCT 32.8 09/03/2019 PLT 363 09/03/2019 MCV 79.0 09/03/2019 RDW 43.6 09/03/2019 Lab Results Component Value Date NA 137 09/03/2019 K 3.7 09/03/2019 CL 104 09/03/2019 BICARB 28 09/03/2019 BUN 15 09/03/2019 EGFRAFRICAN >60 09/03/2019 EGFRNONAFR >60 09/03/2019 CR 0.92 09/03/2019 GLU 84 09/03/2019 CA 8.9 09/03/2019 ANIONGAP 5 09/03/2019 ANIONALBCOR 8 09/03/2019 Lab Results Component Value Date CRP 178.0 (H) 09/03/2019 Lab Results Component Value Date ESR 92 (H) 09/03/2019 Lab Results Component Value Date INRPT 1.30 (H) 09/03/2019 Lab Results Component Value Date LACTICACID 0.8 09/03/2019 Micro: Pending BCX Imaging Interpretation: 09/03 TIBIA AND FIBULA 2 VIEWS LT, ANKLE 2 VIEWS LEFT Extensive expansile lucency is noted throughout the [...] is present over the calcaneus. Assessment and Plan: 69 y.o. M w/ pmg AFIB RVR, etoh cirrhosis, ETOH use disorder in remission, left ankle fusio n 3 years ago presenting with exposed hardward over dorsum of LLE and concerns for NSTI. 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 Has been well rate controlled here. - restarted digoxin - digoxin level - goal rate <110 - torsemide #Other - restart asa 81 after ok'd by ortho - restart torsemide once surgery complete F: IVF E: replete as needed N: npo after midnight Code Status: Full Code Bk Delacruz MD Internal Medicine, PGY1 P. [id number] Associated attestation - Tiffanie Huerta MD - 09/04/2019 9:24 PM PDTGM attending Admiss ion Note I personally interviewed the patient, performed the cespedes elements of the physical examinatio n, and personally formulated the assessment and plan with the resident Dr. Delacruz. See resid ent note for details.69 y.o. M w/ pmg AFIB RVR , etoh cirrhosis, left ankle fusion 3 years a go who presents with exposed screw on the dorsum of the left foot with overlying LLE celluli tis, left heel pressure ulcer, left leg fluctuance as well as gross edema and purulent drain age from screw exposure site. Concern for active infection. Going to OR in am.documented in this encounter Procedure Notes Yenifer Crouch RN - 09/09/2019 2:53 PM PDTAssociated Order(s): PICC LINE PICC LINE Performed by: Yenifer Crouch RN Authorized by: Tiffanie Huerta MD PICC/Midline Insertion Procedure Note Indications:Antibiotics Diagnosis: Cellulitis LE Procedure location: Unit: Room: [facility] Providers: Attending name: Attending physically present: No PICC Nurse name: Yenifer Barboza RN BSN VAT Assisted by Marty Golden RN BSN VAT Pre-Procedure Consent: written consent obtained Consent given by: Patient Patient identity confirmed per protocol: Yes Team Pause: Immediatly prior to the procedure a pause per protocol was called. A pause veri fies correct patient, procedure, equipment, customer support associate and site/side marked as required. CLABSI Prevention Bundle: Skin preparation: Chloraprep Protective barrier: Cap, Mask, Hand scrub, Gown, Gloves and Full body drape. Cap and mask worn by assistive personnel.Sterile Ultrasound techniques (sterile gel, and sterile probe c over) used Dressing: Dressing applied prior of removal of full barrier drape and hemost atic agent applied Sedation/Anesthesia/Analgesia Local Anesthetic: Lidocaine 1% w/o epinephrine Anesthetic total (ml): 1 Procedure Details Patient was placed in appropriate position The vascular anatomy was identified by Ultrasound Guidance.wire through the needle, introdu cer over the wire, then catheter through the introducer Tip was placed using TLS (Tip Locati ng System) and TPS (Tip Positioning System). . A non-tunneled PICC Single lumen 4 Fr was placed in the Arm area Basilic vein. Catheter lot number: [id number] with a length of 55 cm was selected and trimmed 0 to a remaining amalia gth of 55 cm All ports aspirated for blood and flushed with saline Procedure comments: W/o tourniquet the Left basilic measured 0.37 cm in diameter, and the L arm had a circumference of 27 cm at 10 cm above the AC Open-ended or valved line: Valved Power-injectable line: yes Attempts 1 attempt(s) were made Complications None PICC catheter tip location Chest radiograph ordered to verify placement and Line verified by radiograph Adjustments made after chest film obtained: Line pulled back 4cm after initial chest film t o place PICC tip at the CAJJ External measurement of catheter exposed: 7 cm. PICC catheter tip location: Cavo-Atrial Junction Estimated blood loss: <10mL Yenifer Barboza RN BSN VAT documented in this encounter Consult Notes Yasmeen Singh PharmD - 09/16/2019 10:40 AM PSTFormatting of this note might be diffe rent from the original. Pharmacist Managed Vancomycin: Monitoring Note Indication: bone infection Goal trough: 13-17mg/L Level: 14.2 mg/L was drawn late, approximately 24.5 hours after the last dose. Do not anti cipate true trough to significantly higher. Estimated Creatinine Clearance: 74.5 mL/min (based on SCr of 1.11 mg/dL). Urine output: no change in urine output Renal function: worsening Plan: Continue with current regimen of 1250 mg IV every 24 hours. Repeat level: Pharmacist will order another trough level in 3-5 days or sooner if renal fun ction declines significantly Please page clinical pharmacist [phone]) or call central inpatient pharmacy ([phone]) with qu estions. Actual body weight: Weight: 93.4 kg (206 lb) (not sure how the bed was zeroed) ( 09/04/19 1900) Labs: CREATININE PLASMA (LAB) (mg/dL) Date Value 09/15/2019 1.11 09/12/2019 1.06 09/10/2019 0.97 BUN, PLASMA (LAB) (mg/dL) Date Value 09/15/2019 22 (H) 09/12/2019 14 09/10/2019 11 WHITE CELL COUNT (K/cu mm) Date Value 09/15/2019 8.96 09/12/2019 6.74 09/10/2019 5.90 VANCOMYCIN, TROUGH (ug/mL) Date/Time Value 09/15/20198 14.2 09/12/20199 16.9 09/09/2019 1126 21.6 (H) Thank you for the consult, Yasmeen Singh PharmD, [facility] Clinical Pharmacist, Transplant/Urology Pager: [phone] Deuce Kaur, PharmD - 09/12/2019 9:34 PM PDTFormatting of this note might be different from the orig inal. Pharmacist Managed Vancomycin: Monitoring Note Indication: bone infection Goal trough: 13-17, per ID recs Level: 16.9 mg/L was drawn late, approximately 14 hours after the last dose. Estimated Creatinine Clearance: 78.1 mL/min (based on SCr of 1.06 mg/dL). Urine output: no change in urine output Renal function: stable Plan: Decrease from 1500 mg IV every 24 hours to 1250 mg IV every 24 hours to ensure adequate autumn arance Repeat level: Pharmacist will order another trough level prior to third dose. (due before 11/15 dose) Please page clinical pharmacist [phone]) or call central inpatient pharmacy ([phone]) with qu estions. Actual body weight: Weight: 93.4 kg (206 lb) (not sure how the bed was zeroed) ( 09/04/19 1900) Labs: CREATININE PLASMA (LAB) (mg/dL) Date Value 09/12/2019 1.06 09/10/2019 0.97 09/08/2019 0.80 BUN, PLASMA (LAB) (mg/dL) Date Value 09/12/2019 14 09/10/2019 11 09/08/2019 9 WHITE CELL COUNT (K/cu mm) Date Value 09/12/2019 6.74 09/10/2019 5.90 09/08/2019 5.51 VANCOMYCIN, TROUGH (ug/mL) Date/Time Value 09/12/2019 2059 16.9 09/09/2019 1126 21.6 (H) 09/08/2019 2305 21.1 (H) Thank you, Diandra Reed, PharmD Clinical Pharmacist Scott Gómez, PharmD - 09/09/2019 1:04 PM PDTFormatting of this note might be different from the orig inal. Pharmacist Managed Vancomycin: Monitoring Note Indication: bone infection Goal trough: 13-17 mg/Lper ID recs Level: 2.16 mg/L was drawn appropriately, approximately 12 hours after the last dose. Estimated Creatinine Clearance: 103.4 mL/min (based on SCr of 0.8 mg/dL). Urine output: no change in urine output Renal function: stable Plan: Decrease vancomycin to 1500 mg IV every 24 hours. Will delay start to allow further clearan ce and initiate new schedule starting tonight at 2000. Repeat level: Pharmacist will order another trough level prior to third dose. Please page clinical pharmacist [phone]) or call central inpatient pharmacy ([phone]) with qu estions. Actual body weight: Weight: 93.4 kg (206 lb) (not sure how the bed was zeroed) ( 09/04/19 1900) Labs: CREATININE PLASMA (LAB) (mg/dL) Date Value 09/08/2019 0.80 09/06/2019 0.86 09/04/2019 0.87 BUN, PLASMA (LAB) (mg/dL) Date Value 09/08/2019 9 09/06/2019 13 09/04/2019 14 WHITE CELL COUNT (K/cu mm) Date Value 09/08/2019 5.51 09/06/2019 6.77 09/05/2019 6.34 VANCOMYCIN, TROUGH (ug/mL) Date/Time Value 09/09/2019 1126 21.6 (H) 09/08/2019 2305 21.1 (H) 09/07/2019 1108 21.6 (H) Thank you for the consult, Yasmeen Singh, XinD, [facility] Clinical Pharmacist, Transplant/Urology Pager: [phone] Vinod Siddiqui MD - 09/09/2019 12:02 PM PDTFormatting of this note might be different from the origi nal. 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 faecalis Antibiotic agent and dosing: Antimicrobials Antibiotic Dose, route, frequency Duration Effective Start Date Anticipated Stop Date date calculator Comments Vancomycin, goal trough 13-17 1500 mg IV q 24 hours 6 weeks 09/06/19 10/17/19 Last debrid ement on 09/06 OPAT labs: weekly CBC with Differential, CMP and Vancomycin Trough level Potential safe infusion settings from ID perspective no : Home infusion no : Infusion center yes : SNF yes : LTACH yes : In hospital n/a : Hemodialysis Barriers to safe OPAT: Living environment: doubt patient can dress the wound or care for PI CC line unless he has fpc Vascular Access: Ok to place PICC Follow Up: [facility] ID faculty with preference to schedule with next available clinic provider in 3 weeks post hospital discharge. ID: Please route your note to the "p OPAT/infectious Diseases Clinic" pool Pay Station Collector: For all patients requiring IV antibiotic therapy, please route your OPAT Carina n of Care Note (.CMOPAT) to [facility] "p OPAT/Infectious Diseases clinic" Pool at discharge. Ple ase communicate to primary team that you will be notifying Infectious Diseases of the OPAT P tawanna of Care. Joseph De León MD ID Attending Alexy, Bk Morales MD - 09/09/2019 8:13 AM PDT INPATIENT INFECTIOUS DISEASE CONSULT NOTE Infectious Disease Team B Patient: [facility] Room/Bed: 44/01 Requesting Provider: Ariana Guillen MD at bedside 6:36 PM 09/03/19 Abhilash Fatima MD at bedside 11:10 PM 09/03/19 ID Attending Physician: Sarthak PCP: Rio Huerta MD Author: Bk Delacruz MD Date of Admission: 09/03/2019 Hospital Day: 6 Date of Service: 09/09/2019 Chief Complaint/Reason for Consult: LLE hardware infection with enterococcus faecalis and staph aureus ASSESSMENT AND PLAN Assessment: 69 yo male with hx of etoh cirrhosis, left ankle fusion 3 years ago presenting with exposed hardware, now s/p four-compartment fasciotomy, debridement, removal of hardware, followed b y repeat debridement and fasciotomy closure. Problem List: Principal Problem: Necrotizing soft tissue infection Active Problems: 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) Abscess Atrial fibrillation (HCC) Alcohol use disorder, mild, in sustained remission, abuse Recommendations: - continue IV vanc 1g q12h (dose adjusted per pharm) with plan for 6 weeks IV therapy - primary team planning for picc placement today - concern on placement and patient ability to use PICC and administer IV medications himsel f - staph aureus sensitivities per [place] indicate MRSA On Discharge: - will need CBC w/ diff, Creatinine, and vanc level weekly while on this regimen - please refer to OPAT note for outpatient followup - ID team B signing off. Please dont hesitate to contact us with any questions. Please contact Dr. De León for any questions regarding this patient on 09/09. Recommendations were communicated directly to the primary team. This patient was staffed [facility] Dr. De León, who agrees with the above assessment and plan unless otherwise documented. Thank you for the consult. Bk Delacruz MD Internal Medicine, PGY1 P. [phone] SUBJECTIVE HPI: 69 y.o. M w/ pmg AFIB RVR , etoh cirrhosis, left ankle fusion 3 years ago who presents with exposed screw on the dorsum of the left foot with overlying LLE cellulitis, left heel press ure ulcer, left leg fluctuance as well as gross edema and purulent drainage from screw expos ure site. He states that his leg was maybe was swollen for >1wk. He notes no pain in the leg, and is able to walk adequately with walker. He states that he first noticed screw poking through skin approximately 5 days ago, and his [facility] nursing facility has been doing dressing changes at the screw site. They had cultured the wound which has not grown and started on PO levofloxacin 500mg dailyand augm entin on 09/02. He was thend discharged from the facility He was seen by Dr Castellano at [facility] who requested transfer to [facility] for orthopedic eval. Taken by orthopedics for 09/04 fasciotomy of the left leg, removal of hardware with curreta ge of calcaneous and talus, I&D of left ankle incomplete fusion, ankle fusion spanning antib iotic nail through hindfoot. Repeat I&D of left ankle fasciotomoy sites, and plantar round w ith closure on 09/06. Deep wound cultures from procedure grew Staph Aureus and Enterococcus Faecalis. Continued o n vancomycin ROS: A review of systems was performed and was negative except as outlined in the HPI or as ment ioned below: Denies fevers, chills, night sweats, chest pain, SOB, abd pain, change in bm or urination PMH: No past medical history on file. No past surgical history on file. Prior Medications: Medications Prior to Admission Medication Sig Dispense Refill aspirin EC 81 mg oral tablet,delayed release (DR/EC) Take 81 mg by mouth once daily. In dications: atrial fibrillation cyanocobalamin 100 mcg oral tablet Take 500 mcg by mouth once daily. digoxin 125 mcg oral tablet Take 125 mcg by mouth once daily. Indications: Ventricular Rate Control in Atrial Fibrillation gabapentin 600 mg oral tablet Take 600 mg by mouth three times daily. Indications: alco holism melatonin 3 mg oral tablet Take 3 mg by mouth once daily in the evening. multivitamin-iron oral tablet Take 1 tablet by mouth once daily. omeprazole 20 mg oral capsule,delayed release(DR/EC) Take 20 mg by mouth two times margarita y. Administer 30 to 60 minutes before meals potassium chloride SR 20 mEq oral tablet,ER particles/crystals Take 20 mEq by mouth two times daily. tamsulosin 0.4 mg oral capsule Take 0.4 mg by mouth once daily. thiamine mononitrate 100 mg oral tablet Take 100 mg by mouth once daily. torsemide 10 mg oral tablet Take 10 mg by mouth once daily in the morning. Indications: visible water retention Current Medications: Current Facility-Administered Medications Medication Dose Route Frequency acetaminophen (TYLENOL) tablet 1,000 mg 1,000 mg oral TID aspirin chewable tablet 81 mg 81 mg oral DAILY bisacodyl (DULCOLAX) suppository 10 mg 10 mg rectal DAILY PRN calamine lotion topical PRN digoxin (LANOXIN) tablet 125 mcg 125 mcg oral DAILY enoxaparin (LOVENOX) injection 40 mg 40 mg subcutaneous QPM gabapentin (NEURONTIN) capsule 600 mg 600 mg oral TID HYDROmorphone (DILAUDID) injection 0.2 mg 0.2 mg intravenous Q3H PRN influenza high-dose vaccine (FLUZONE HIGH-DOSE) (PF) IM injection (age [address]) 0.5 mL 0.5 mL intramuscular Day of Discharge loperamide (IMODIUM) capsule 2 mg 2 mg oral QID PRN melatonin tablet 3 mg 3 mg oral QPM naloxone (NARCAN) injection intravenous PRN omeprazole (PRILOSEC) capsule 20 mg 20 mg oral BID ondansetron ODT (ZOFRAN ODT) tablet 8 mg 8 mg oral Q12H PRN oxyCODONE (immediate release) (ROXICODONE) tablet 5 mg 5 mg oral Q6H PRN polyethylene glycol (MIRALAX) packet 34 g 34 g oral TID PRN prochlorperazine (COMPAZINE) injection 5-10 mg 5-10 mg intravenous Q6H PRN prochlorperazine (COMPAZINE) tablet 5-10 mg 5-10 mg oral Q6H PRN senna-docusate (SENOKOT S) 8.6-50 mg 1 tablet 1 tablet oral BID tamsulosin (FLOMAX) capsule 0.4 mg 0.4 mg oral DAILY thiamine tablet 100 mg 100 mg oral DAILY vancomycin (VANCOCIN) IV 1,000 mg 1,000 mg intravenous Q12H Antibiotic Course: Cefazolin 09/04 only Zosyn 09/04-09/06 Vanc 09/04-present Allergies No Known Allergies Social History Social History Tobacco Use Smoking status: Not on file Substance Use Topics Alcohol use: Not on file Social History Patient does not qualify to have social determinant information on file (likely too young ). Social History Narrative Not on file Family History: No family history on file. OBJECTIVE Physical Exam: BP 121/70 (BP Location: Right upper arm, Patient Position: Lying on back) | Pulse 74 | Te mp 36.3 C (97.3 F) (Oral) | Resp 18 | Ht 1.829 m (6') | Wt 93.4 kg (206 lb) Comment: not sure how the bed was zeroed | SpO2 96% | BMI 27.94 kg/m | BSA 2.18 m Systolic (24hrs), Av , Min:110 , Max:129 Diastolic (24hrs), Av, Min:50, Max:70 Pulse Av Min: 63 Max: 104 Temp Av.6 C (97.8 F) Min: 36.4 C (97.5 F) Max: 36.7 C (98.1 F) Resp Av.7 Min: 16 Max: 18 SpO2 Av.3 % Min: 95 % Max: 99 % General: pleasant, no distress HEENT: PERRLA, EOMI, MMM Lungs: CTAB, no wheezes, rales, rhonchi Heart: irregularly irregular, no murmurs Abd: soft NTND MSK: LLE wrapped and elevated, RLE with venous stasis dermatitis and 1+ edema Neuro: AAO, no focal deficits, sensations of RLE diminished; LLE not examined Lines/drains: piv, straight catherized Data: Recent Labs 09/03/19191009/05/1949909/06/1941909/08/19451 WBC 8.07 < > 6.34 6.77 5.51 RBC 4.15* < > 3.56* 3.72* 3.62* HB 10.2* < > 8.8* 9.1* 8.8* HCT 32.8* < > 28.4* 30.0* 29.3* PLT 363 < > 304 280 306 NEUTROPERC 74.1* -- 76.0* -- -- LYMPHPERC 12.1* -- 6.2* -- -- MONOPERC 10.0* -- 9.9* -- -- BASOPERC 0.4 -- 0.8 -- -- EOSPERC 3.0 -- 6.8* -- -- < > = values in this interval not displayed. Recent Labs 09/04/19 0522 09/06/1941909/06/19 1400 09/08/19451 NA 138 -- 137 -- 138 K 3.7 -- 3.9 -- 3.9 CL 105 -- 108 -- 108 BICARB 26 -- 25 -- 24 BUN 14 -- 13 -- 9 CR 0.87 -- 0.86 -- 0.80 GLU 83 < > 136* 112* 95 CA 9.1 -- 8.1* -- 8.0* < > = values in this interval not displayed. Recent Labs 09/03/191923 AST 14 ALT 12 AP 118 TBILI 0.5 TP 7.2 ALB 2.5* Lab Results Lab Test Name Results Date/Time APTT 37.5 09/04/19 FIBRINOGEN 692 09/04/19 Lab Results Component Value Date ESR 78 09/09/2019 ESR 92 09/03/2019 Lab Results Component Value Date CRP 70.8 09/09/2019 CRP 178.0 09/03/2019 Microbiology Data: Micro: 1. 09/03 blood cultures x negative to date 2. 09/04 intra-op specimen A from left ankle tissue showed no organisms, no squamous cells and no PMNs; culture negative so far 3. 09/04 intra-op specimen B from left ankle tissue showed no organisms, no squamous cells and rare PMNs; culture growing Staphylococcus aureus and 1+ Corynebacterium striatum 4. 09/04 intra-op specimen A from left ankle tissue showed no organisms, no squamous cells and rare PMNs; culture growing S. aureus and E. faecalis 5. 09/04 intra-op specimen D from left ankle tissue showed no organisms, no squamous cells and no PMNs; culture negative so far 6. 09/04 intra-op specimen E from left ankle tissue showed no organisms, no squamous cells and no PMNs; culture growing S. aureus and E. faecalis (susceptible to ampicillin and vancom ycin CULTURE RESULT (no units) Date Value 09/04/2019 Staphylococcus aureus (A) 09/04/2019 Enterococcus faecalis (A) 09/04/2019 Staphylococcus aureus (A) 09/04/2019 Enterococcus faecalis (A) 09/04/2019 Staphylococcus aureus (A) 09/04/2019 Corynebacterium striatum (A) 09/03/2019 No growth to date. 09/03/2019 No growth to date. Imagin/28 Xray Tibia and Fibula IMPRESSION: Interval left ankle hardware removal and antibiotic nail placement with decreased subcutane ous edema. No aggressive bone destruction identified. 09/03 Xray Tibia and Fibula IMPRESSION: Extensive expansile lucency is noted throughout the [...] tissue ulcer is present over the calcaneus. Associated attestation - Joseph De León MD - 09/09/2019 5:42 PM PDTID Attending Attes tation Patient discussed on rounds with Dr. Bk Delacruz. I agree with the assessment and recommen dations outlined in his note from today except that the vancomycin dosing should be 1500 mg IV q 24 hours. OPAT note placed and ID Team B will sign off. Joseph De León MD ID Attending Joseph De León MD - 09/08/2019 5:46 PM PDTID Attending Team B Initial Inpatient C onsult Note We were asked to see this patient by Dr. Huerta s team to provide antibiotic recommenda tions. I interviewed and examined the patient today with Dr. Bk Delacruz and I agree with the HPI, PMH, medications, allergies, SH, FH, ROS, labs and microbiology outlined in his note from velvet [facility]. Briefly, this patient with multiple medical problems underwent a left ankle fusion ~ 3 year s ago. Presented 09/03 with a five day history of having an exposed screw (with associated L E edema and purulent drainage) on the dorsal aspect of the left foot. In the ED, patient was noted to have overlying cellulitis, a left heel ulcer and left leg fluctuance. Patient had no pain in the leg at presentation. Early culture obtained at the SNF where he was staying w as apparently negative. Of note, he was started on oral levofloxacin amox/clav one day prior to presentation. At [facility], antibiotics were initially held but then he received one dose of cefazolin and then vancomycin (09/04- present) and pip-tazo (09/04-09/06) were started. Taken to OR on 09/04, s/p four-compartment fasciotomy, left leg, with incision, irrigation and debridement, via two incisions; removal of hardware deep implant with curettage of the c alcaneus and talus; incision, irrigation and debridement of a left ankle incomplete fusion; ankle fusion spanning antibiotic nail through the hind foot; placement of an external tissue thermoforming operator; and placement of a negative pressure wound therapy device. Ortho noted purulence within the screw site and they fashioned an antibiotic nail that was placed during the procedure. Taken back to the OR on 09/06, s/p I & D of the left ankle fasciotomy sites and plantar foot wound with closure. Ortho is concerned about healing and has discussed the pot ential of amputation with patient. Will also need to return to OR at some point for removal of antibiotic nail. Patient doing well and tolerating the current antibiotic regimen without problems. No F/C/S . My exam showed a man lying in bed and in NAD. Vitals Temp = 36.6 degrees, 99, 18, 110/58; N C/AT, EOMI, no icterus and no petechial hemorrhages in the conjunctiva. Oropharynx is clear without thrush or exudate. Neck supple without nodes. Lungs CTA. Cor RRR without g/m/r. Abdo men with normal BS. Soft and NT without g/m/r. Extremities reveal chronic stasis changes ove r the right lower leg. The left foot, ankle and lower leg are covered with a surgical dressi ng and splint. Toes are warm. No rash. Pertinent labs from today include WBC = 5.51 and creatinine = 0.80; vanco level = 21.6 on 1 ; CRP 178 and CRP = 92 on 09/03 Micro: 1) 09/03 blood cultures x negative to date 2) 09/04 intra-op specimen A from left ankle tissue showed no organisms, no squamous cells and no PMNs; culture negative so far 3) 09/04 intra-op specimen B from left ankle tissue showed no organisms, no squamous cells and rare PMNs; culture growing Staphylococcus aureus and 1+ Corynebacterium striatum 4) 09/04 intra-op specimen A from left ankle tissue showed no organisms, no squamous cells and rare PMNs; culture growing S. aureus and E. faecalis 5) 09/04 intra-op specimen D from left ankle tissue showed no organisms, no squamous cells and no PMNs; culture negative so far 6) 09/04 intra-op specimen E from left ankle tissue showed no organisms, no squamous cells and no PMNs; culture growing S. aureus and E. faecalis (susceptible to ampicillin and vancom ycin) Imaging: Left ankle, tibia and fibula films on 09/03 showed extensive expansile lucency thr oughout the musculature of the calf consistent with gas throughout the soft tissues indicati ng necrotizing fasciitis. Extensive subcutaneous fat edema is also noted, in keeping with a history of cellulitis. Postsurgical and likely posttraumatic deformity of the ankle is noted with fusion across the subtalar and tibiotalar joint spaces. There is loosening around both distal screws concerning for motion. A deep soft tissue ulcer is present over the calcaneus . A/P: Patient who presented with necrotizing fasciitis of the left LE together with deep inf ection involving the ankle bones. He underwent debridement including fasciotomy and hardware removal on 09/04/19. The intra-op cultures are growing Corynebacterium, S. aureus and E. fa ecalis. Assuming he does not undergo a BKA, he will need six weeks of antibiotics to treat t his complicated skin, soft tissue and bone infection. If the skin breaks down, then a BKA wi ll likely be needed to achieve a cure. We still do not know if this is MSSA or MRSA so we sh ould use vancomycin while we wait for the micro data. 1) Continue vancomycin 1,000 mg IV q 12 hours (dose adjusted yesterday per pharmacy as a re sult of the high trough level) 2) Target vancomycin trough level is 13-17 3) Duration of therapy is six weeks from the last debridement (09/06/19 = day one and is tentative stop date) 4) OK to place PICC line 5) CBC with diff and vanco level once weekly while on this regimen 6) Await micro data before finalizing regimen for OPAT 7) ESR and CRP to establish baseline so progress can be monitored. Joseph De León MD ID Attending Bk Tracey M D - 09/08/2019 1:57 PM PDT INPATIENT INFECTIOUS DISEASE CONSULT NOTE Infectious Disease Team B Patient: [facility] Room/Bed: / Requesting Provider: Ariana Guillen MD at bedside 6:36 PM 09/03/19 Abhilash Fatima MD at bedside 11:10 PM 09/03/19 ID Attending Physician: Sarthak PCP: Rio Huerta MD Author: Bk Delacruz MD Date of Admission: 09/03/2019 Hospital Day: 5 Date of Service: 09/08/2019 Chief Complaint/Reason for Consult: LLE hardware infection with enterococcus faecalis and staph aureus ASSESSMENT AND PLAN Assessment: 69 yo male with hx of etoh cirrhosis, left ankle fusion 3 years ago presenting with exposed hardware, now s/p four-compartment fasciotomy, debridement, removal of hardware, followed b y repeat debridement and fasciotomy closure. 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 De León for any questions regarding this patient on 09/08. Recommendations were communicated directly to the primary team. This patient was staffed [facility] Dr. De León, who agrees with the above assessment and plan unless otherwise documented. Thank you for the consult, we will follow along with you. Bk Delacruz MD Internal Medicine, PGY1 P. [phone] SUBJECTIVE HPI: 69 y.o. M w/ pmg AFIB RVR , etoh cirrhosis, left ankle fusion 3 years ago who presents with exposed screw on the dorsum of the left foot with overlying LLE cellulitis, left heel press ure ulcer, left leg fluctuance as well as gross edema and purulent drainage from screw expos ure site. He states that his leg was maybe was swollen for >1wk. He notes no pain in the leg, and is able to walk adequately with walker. He states that he first noticed screw poking through skin approximately 5 days ago, and his [facility] nursing facility has been doing dressing changes at the screw site. They had cultured the wound which has not grown and started on PO levofloxacin 500mg dailyand augm entin on 09/02. He was thend discharged from the facility He was seen by Dr Castellano at [facility] who requested transfer to [facility] for orthopedic eval. Taken by orthopedics for 09/04 fasciotomy of the left leg, removal of hardware with curreta ge of calcaneous and talus, I&D of left ankle incomplete fusion, ankle fusion spanning antib iotic nail through hindfoot. Repeat I&D of left ankle fasciotomoy sites, and plantar round w ith closure on 09/06. Deep wound cultures from procedure grew Staph Aureus and Enterococcus Faecalis. Continued o n vancomycin ROS: A review of systems was performed and was negative except as outlined in the HPI or as ment ioned below: Denies fevers, chills, night sweats, chest pain, SOB, abd pain, change in bm or urination PMH: No past medical history on file. No past surgical history on file. Prior Medications: Medications Prior to Admission Medication Sig Dispense Refill aspirin EC 81 mg oral tablet,delayed release (DR/EC) Take 81 mg by mouth once daily. In dications: atrial fibrillation cyanocobalamin 100 mcg oral tablet Take 500 mcg by mouth once daily. digoxin 125 mcg oral tablet Take 125 mcg by mouth once daily. Indications: Ventricular Rate Control in Atrial Fibrillation gabapentin 600 mg oral tablet Take 600 mg by mouth three times daily. Indications: alco holism melatonin 3 mg oral tablet Take 3 mg by mouth once daily in the evening. multivitamin-iron oral tablet Take 1 tablet by mouth once daily. omeprazole 20 mg oral capsule,delayed release(DR/EC) Take 20 mg by mouth two times margarita y. Administer 30 to 60 minutes before meals potassium chloride SR 20 mEq oral tablet,ER particles/crystals Take 20 mEq by mouth two times daily. tamsulosin 0.4 mg oral capsule Take 0.4 mg by mouth once daily. thiamine mononitrate 100 mg oral tablet Take 100 mg by mouth once daily. torsemide 10 mg oral tablet Take 10 mg by mouth once daily in the morning. Indications: visible water retention Current Medications: Current Facility-Administered Medications Medication Dose Route Frequency acetaminophen (TYLENOL) tablet 1,000 mg 1,000 mg oral TID aspirin chewable tablet 81 mg 81 mg oral DAILY bisacodyl (DULCOLAX) suppository 10 mg 10 mg rectal DAILY PRN calamine lotion topical PRN digoxin (LANOXIN) tablet 125 mcg 125 mcg oral DAILY enoxaparin (LOVENOX) injection 40 mg 40 mg subcutaneous QPM gabapentin (NEURONTIN) capsule 600 mg 600 mg oral TID HYDROmorphone (DILAUDID) injection 0.2 mg 0.2 mg intravenous Q3H PRN influenza high-dose vaccine (FLUZONE HIGH-DOSE) (PF) IM injection (age [address]) 0.5 mL 0.5 mL intramuscular Day of Discharge loperamide (IMODIUM) capsule 2 mg 2 mg oral QID PRN melatonin tablet 3 mg 3 mg oral QPM naloxone (NARCAN) injection intravenous PRN omeprazole (PRILOSEC) capsule 20 mg 20 mg oral BID ondansetron ODT (ZOFRAN ODT) tablet 8 mg 8 mg oral Q12H PRN oxyCODONE (immediate release) (ROXICODONE) tablet 5 mg 5 mg oral Q6H PRN polyethylene glycol (MIRALAX) packet 34 g 34 g oral TID PRN prochlorperazine (COMPAZINE) injection 5-10 mg 5-10 mg intravenous Q6H PRN prochlorperazine (COMPAZINE) tablet 5-10 mg 5-10 mg oral Q6H PRN senna-docusate (SENOKOT S) 8.6-50 mg 1 tablet 1 tablet oral BID tamsulosin (FLOMAX) capsule 0.4 mg 0.4 mg oral DAILY thiamine tablet 100 mg 100 mg oral DAILY vancomycin (VANCOCIN) IV 1,000 mg 1,000 mg intravenous Q12H Antibiotic Course: Cefazolin 09/04 only Zosyn 09/04-09/06 Vanc 09/04-present Allergies No Known Allergies Social History Social History Tobacco Use Smoking status: Not on file Substance Use Topics Alcohol use: Not on file Social History Patient does not qualify to have social determinant information on file (likely too young ). Social History Narrative Not on file Family History: No family history on file. OBJECTIVE Physical Exam: BP 110/58 (BP Location: Right upper arm, Patient Position: Lying on back) | Pulse 99 | Te mp 36.6 C (97.9 F) (Oral) | Resp 18 | Ht 1.829 m (6') | Wt 93.4 kg (206 lb) Comment: not sure how the bed was zeroed | SpO2 98% | BMI 27.94 kg/m | BSA 2.18 m Systolic (24hrs), Av , Min:101 , Max:127 Diastolic (24hrs), Av, Min:41, Max:70 Pulse Av Min: 63 Max: 104 Temp Av.6 C (97.8 F) Min: 36.4 C (97.5 F) Max: 36.7 C (98.1 F) Resp Av.7 Min: 16 Max: 18 SpO2 Av.3 % Min: 95 % Max: 99 % General: pleasant, no distress HEENT: PERRLA, EOMI, MMM Lungs: CTAB, no wheezes, rales, rhonchi Heart: irregularly irregular, no murmurs Abd: soft NTND MSK: LLE wrapped and elevated, RLE with venous stasis dermatitis and 1+ edema Neuro: AAO, no focal deficits, sensations of RLE diminished; LLE not examined Lines/drains: piv, straight catherized Data: Recent Labs 09/03/19191009/05/1949909/06/1941909/08/19451 WBC 8.07 < > 6.34 6.77 5.51 RBC 4.15* < > 3.56* 3.72* 3.62* HB 10.2* < > 8.8* 9.1* 8.8* HCT 32.8* < > 28.4* 30.0* 29.3* PLT 363 < > 304 280 306 NEUTROPERC 74.1* -- 76.0* -- -- LYMPHPERC 12.1* -- 6.2* -- -- MONOPERC 10.0* -- 9.9* -- -- BASOPERC 0.4 -- 0.8 -- -- EOSPERC 3.0 -- 6.8* -- -- < > = values in this interval not displayed. Recent Labs 09/04/19 0522 09/06/1941909/06/19 1400 09/08/19451 NA 138 -- 137 -- 138 K 3.7 -- 3.9 -- 3.9 CL 105 -- 108 -- 108 BICARB 26 -- 25 -- 24 BUN 14 -- 13 -- 9 CR 0.87 -- 0.86 -- 0.80 GLU 83 < > 136* 112* 95 CA 9.1 -- 8.1* -- 8.0* < > = values in this interval not displayed. Recent Labs 09/03/191923 AST 14 ALT 12 AP 118 TBILI 0.5 TP 7.2 ALB 2.5* Lab Results Lab Test Name Results Date/Time APTT 37.5 09/04/19 FIBRINOGEN 692 09/04/19 Lab Results Lab Test Name Value Date ESR 92 09/03/2019 Lab Results Lab Test Name Value Date CRP 178.0 09/03/2019 Microbiology Data: Micro: 1. 09/03 blood cultures x negative to date 2. 09/04 intra-op specimen A from left ankle tissue showed no organisms, no squamous cells and no PMNs; culture negative so far 3. 09/04 intra-op specimen B from left ankle tissue showed no organisms, no squamous cells and rare PMNs; culture growing Staphylococcus aureus and 1+ Corynebacterium striatum 4. 09/04 intra-op specimen A from left ankle tissue showed no organisms, no squamous cells and rare PMNs; culture growing S. aureus and E. faecalis 5. 09/04 intra-op specimen D from left ankle tissue showed no organisms, no squamous cells and no PMNs; culture negative so far 6. 09/04 intra-op specimen E from left ankle tissue showed no organisms, no squamous cells and no PMNs; culture growing S. aureus and E. faecalis (susceptible to ampicillin and vancom ycin CULTURE RESULT (no units) Date Value 09/04/2019 Staphylococcus aureus (A) 09/04/2019 Enterococcus faecalis (A) 09/04/2019 Staphylococcus aureus (A) 09/04/2019 Enterococcus faecalis (A) 09/04/2019 Staphylococcus aureus (A) 09/04/2019 Corynebacterium striatum (A) 09/03/2019 No growth to date. 09/03/2019 No growth to date. Imagin/28 Xray Tibia and Fibula IMPRESSION: Interval left ankle hardware removal and antibiotic nail placement with decreased subcutane ous edema. No aggressive bone destruction identified. 09/03 Xray Tibia and Fibula IMPRESSION: Extensive expansile lucency is noted throughout the [...] tissue ulcer is present over the calcaneus. Associated attestation - Joseph De León MD - 09/08/2019 8:24 PM PDTID Attending Attes tation Patient seen and examined on rounds today with Dr. Bk Delacruz. Please see my note from yara goncalves for my full attestation, exam, assessment and plan. Joseph De León MD ID Attending Justine Luciano RN - 09/08/2019 8:24 AM PDTAssociated Order(s): IP CONSULT TO WO UND OSTOMYConsulted for "Left heel ulcer" "Recommend daily wet-to-dry dressing changes." I'm unclear about the purpose of this consult. The team can enter a wound care order for NS moistened gauze dressing changes BID and bedside nursing will provide this wound care. Wound assessed via wound photography from 09-03. The wound appears without much depth. The wound could also be dressed with a bordered foam dressing. The Left heel should be floated at all times to promote blood flow the wound bed. Abdon low signed by Justine Luciano RN at 09/08/2019 8:28 AM Jack Lanza - 09/07 3:18 PM PDT Pharmacy Services: Student Admission Medication Reconciliation I have reviewed the patient s home medication list and found it to be accurate with the f ollowing exceptions: Medications Omitted from Prior to Admission list: Medication Dose Route Frequency Source of Information Torsemide 10mg By mouth Every morning [facility] Potassium chloride 20meq By mouth Twice daily [facility] Aspirin 81mg By mouth Every morning [facility] OTC/Herbal Products: Product Dose Route Frequency multivitamin 1 tablet By mouth Once daily Vitamin B12 100mg By mouth Once daily Thiamine 100mg By mouth Once daily Allergies: No Known Allergies Diane An is a 69 year old male admitted to for cellulitis and exposed hardware on left foot Pharmacy Preferences: No preferred pharmacy on file. Source of Medication Information: [facility] Reliability: Moderate Insurance Status: MEDICARE - MEDICARE A & B DIANE AN 1950 Male [id number] [birth year]06 [address] [employer] MEDICARE SUPPLEMENT - [place]* DIANE AN 1950 Male [id number] [birth year] [id number] [address] [address] Adherence: Good The above changes will be reviewed with the supervising pharmacist. The patient s prior t o admission medication list will be updated accordingly. A total of 15 minutes were spent on this activity. All questions concerning medications, in cluding OTC and herbal products, were addressed. For questions regarding this information contact Jack Alcantar Candidate Class of 2019 Pager # [phone] Associated attestation - Tammy Nguyen PharmD - 09/07/2019 6:30 PM PDT Pharmacy Services: Admission Medication Reconciliation Prior to Admission Medications: Medications Prior to Admission Medication Sig Dispense Refill Last Dose aspirin EC 81 mg oral tablet,delayed release (DR/EC) Take 81 mg by mouth once daily. Indic ations: atrial fibrillation cyanocobalamin 100 mcg oral tablet Take 500 mcg by mouth once daily. digoxin 125 mcg oral tablet Take 125 mcg by mouth once daily. Indications: Ventricular Rat e Control in Atrial Fibrillation Within last 7 days at Unknown time gabapentin 600 mg oral tablet Take 600 mg by mouth three times daily. Indications: alcohol ism Within last 7 days at Unknown time melatonin 3 mg oral tablet Take 3 mg by mouth once daily in the evening. Within last 7 d ays at Unknown time multivitamin-iron oral tablet Take 1 tablet by mouth once daily. omeprazole 20 mg oral capsule,delayed release(DR/EC) Take 20 mg by mouth two times daily. Administer 30 to 60 minutes before meals Within last 7 days at Unknown time potassium chloride SR 20 mEq oral tablet,ER particles/crystals Take 20 mEq by mouth two ti mes daily. tamsulosin 0.4 mg oral capsule Take 0.4 mg by mouth once daily. Within last 7 days at Un known time thiamine mononitrate 100 mg oral tablet Take 100 mg by mouth once daily. torsemide 10 mg oral tablet Take 10 mg by mouth once daily in the morning. Indications: vi sible water retention The above list was reviewed and verified with SNF MAR records. Torsemide, potassium chlorid e, ASA, MVI, vitamin B12, and thiamine were added to [facility] medication list. Of note, patient h as not been taking torsemide regularly per SNF but did receive KCl supplement on 10/22 prior to admission. Loperamide was removed from home med list. For questions regarding this information please contact pharmacy, pager [phone]. Thank you, Tammy Nguyen, PharmD pg [phone] Bowen PharmD - 09/07/2019 1:58 PM PDTFormatting of this note might be diffe rent from the original. Pharmacist Managed Vancomycin: Monitoring Note Indication: soft tissue infection Goal trough: 10-15 Level: 21.6 mg/L Estimated Creatinine Clearance: 96.2 mL/min (based on SCr of 0.86 mg/dL). Plan: Decrease from 1250 mg mg IV every 12 hours to 1000 mg IV every 12 hours. Repeat level: Pharmacist will order another trough level prior to third dose. Please page clinical pharmacist [phone]) or call central inpatient pharmacy ([phone]) with qu estions. Actual body weight: Weight: 93.4 kg (206 lb) (not sure how the bed was zeroed) ( 09/04/19 1900) Labs: CREATININE PLASMA (LAB) (mg/dL) Date Value 09/06/2019 0.86 09/04/2019 0.87 09/03/2019 0.92 BUN, PLASMA (LAB) (mg/dL) Date Value 09/06/2019 13 09/04/2019 14 09/03/2019 15 WHITE CELL COUNT (K/cu mm) Date Value 09/06/2019 6.77 09/05/2019 6.34 09/04/2019 6.44 VANCOMYCIN, TROUGH (ug/mL) Date/Time Value 09/07/2019 1108 21.6 (H) Thank you for the consult, Manuel Bowen Pager [phone] signed by Manuel Bowen PharmD at 09/07/2019 2:00 PM PDTWabola, Lisandra negron PharmD - 09/04/2019 7:04 PM PDTFormatting of this note might be different from the o riginal. Pharmacist Managed Vancomycin: Initial Note Indication: soft tissue infection Goal trough: 10-15 CrCl cannot be calculated (Unknown ideal weight.). Urine output: no change in urine output Renal function: stable Assessment/Plan: - Received vancomycin 1500 mg, will start vancomycin 1250 mg IV every 12 hours - Pharmacist will order trough level prior to fourth dose. Please page clinical pharmacist [phone]) or call central inpatient pharmacy ([phone]) with qu estions. Actual body weight: Labs: CREATININE PLASMA (LAB) (mg/dL) Date Value 09/04/2019 0.87 09/03/2019 0.92 BUN, PLASMA (LAB) (mg/dL) Date Value 09/04/2019 14 09/03/2019 15 WHITE CELL COUNT (K/cu mm) Date Value 09/04/2019 6.44 09/03/2019 8.07 Pertinent cultures/sensitivities: NGTD Thank you for the consult, Benitez Anthony PharmD ancho Stauffer M D - 09/03/2019 10:28 PM PDTAssociated Order(s): IP CONSULT TO EMERGENCY GENERAL SURGERYForma tting of this note might be different from the original. DEPARTMENT OF SURGERY Emergency General Surgery Consult Patient: Diane An ([id number]) Date: 09/03/2019 Reason for consultation: NSTI Requesting provider: MD Jase History of Present Illness: Diane An is a(n) 69 y.o. male alcoholism, cirrhosis (JUSTINO D=9, esophageal varices, ascites), HTN, atrial fibrillation, BLE neuropathy with edema and v enous stasis disease, who presented from facility to [facility] ED with LLE infection. EGS consul katlin for possible NSTI. Patient reports that at his facility approximately 5 days ago it was noted that hardware from a prior surgery (multiple years ago) was eroding through his skin. Purulent drainage has been noted since that time. They began performing dressing changes; however, in the past 24hrs his LLE became erythematous. Although he has neuropathy, he has slight pain with palpation but no pain at rest. He can move his extremity without exacerba ting the pain. There has been increasing edema per patient. He is also noted to have a LLE pressure ulcer on his heel. Past Surgical History: L ankle surgery, otherwise no pertinent past surgical history. Past Medical History: AF LE edema LE neuropathy Venous stasis disease Alcohol abuse Cirrhosis HTN Medications: (per CareEverywhere 09/01/19) " aspirin 81 mg EC tablet Take 81 [...] tablet Take 100 mg by mouth Daily. " Allergies No Known Allergies Family History: No pertinent family history of heart disease, diabetes, or cancer. Father - neuropathy Social History Socioeconomic History Marital status: Single [...] Not on file Tobacco Use Smoking status: Not on file Substance and Sexual Activity Alcohol use: Not on file Drug use: Not on file Sexual activity: Not on file Lifestyle Physical activity: Days per week: Not on file Minutes per session: Not on file Stress: Not on file Relationships Social connections: Talks on phone: Not on file Gets together: Not on file Attends zoroastrian service: Not on file Active member of club or organization: Not on file Attends meetings of clubs or organizations: Not on file Relationship status: Not on file Other Topics Concern Not on file Social History Narrative Not on file Review of Systems: A 10-point review of systems was negative except as noted above in HPI. BP 130/65 | Temp 36.6 C (97.8 F) (Oral) | SpO2 100% General: alert, NAD HEENT: EOMI, anicteric sclera Resp: symmetric expansion, non-labored breathing on room air CV: regular rate Abd: soft, non-tender, non-distended Extremities: venous stasis disease BLE LLE: edematous, erythema; scaling; anterior ankle with <1cm hardware protruding and active ly draining purulence; no crepitus; no pain out of proportion; no pain with passive motion; 2+ DP pulse Neuro: no gross deficits Data Recent Labs 09/03/191923 NA 137 K 3.7 CL 104 BICARB 28 BUN 15 CR 0.92 GLU 84 CA 8.9 Assessment and Plan: Diane An is a 69 y.o. male alcoholism, cirrhosis, HTN, atrial fibrillation, BLE neuro didi with edema and venous stasis disease, who presents with LLE infected hardware and cell ulitis. Patient hemodynamically normal, has no leukocytosis, not hyponatremic, euglycemic, and has no physical exam findings which would warrant emergent intervention. However, infla mmatory markers indeed elevated. Given these findings, it seems that patient likely does no t have a NSTI, rather, there is likely air in the soft tissues because of his exposed hardwa re. Patient to go to OR with orthopedic surgery. No other operative intervention needed. - Patient with cellulitis and infected hardware, low concern for NSTI - OR as planned with ortho, please do not hesitate to contact intraop if concerning finding s - Would obtain LLE imaging to ensure no VTE contributing to edema - EGS will sign off, please do not hesitate to contact with questions or concerns Sancho Stauffer MD General Surgery Oc Ramos MD - 09/03/2019 7:13 PM PDTAssociated Order(s): IP CONSULT TO ORTHOPEDIC SURGERYFormatting of th is note might be different from the original. [facility] DEPARTMENT OF ORTHOPAEDICS & REHABILITATION HISTORY & PHYSICAL EXAMINATION Patient: Diane An Encounter Date: 09/03/2019 Attending Physician: Marty Fam MD Arrived within 30 minutes of being paged HISTORY OF PRESENT ILLNESS: Diane An is a 69 y.o. M w/ PMH Afib with RVR (does not remember if he's on blood thin ners), EtOH cirrhosis, takes "water pills", and left ankle fusion 3 years ago (Dr. Surya barron in [place]) who presents with exposed screw on dorsum of left foot, LLE cellulitis, l eft heel pressure ulcer, and left leg fluctuance. He says he first noticed the screw poking out 5 days ago and says his facility has continued doing daily dressing changes at the screw site since then. He says he noticed left leg was red one day ago and that it may have been more swollen for a week or so, but seemed worse today. He has a palpable DP pulse on left an d venous stasis dermatitis on BLE. Denies smoking, says he quit drinking 3 months ago. Ambul ates currently with a walker. Lives at halfway facility in [place]. Says he broke hi s left ankle "just walking for 5 days" 3 years back, no trauma, just noticed pain for 5 days , then fell and noticed left ankle deformity. Says he has neuropathy in both feet and hands, says he's been worked up for diabetes but never formally diagnosed. He says his facility gave him 1 or 2 days of antibiotics yesterday or the day before after noticing his exposed hardware, says he only got a few doses but does not remember what abx h e got. In ED: AF, VSS WBC: 8 ESR: 92 CRP: 178 Na: 137 Total Protein: 7.2 Albumin: 2.5 Pre-albumin: pending A1C: pending INR: pending LRINEC score: 6 PAST MEDICAL HISTORY: Afib w/ RVR (? Blood thinners) Takes "water pills" EtOH cirrhosis BLE Venous stasis dermatitis PAST SURGICAL HISTORY: No past surgical history on file. SOCIAL HISTORY: Denies smoking or recreational Says he quit drinking 3 months ago (hx of EtOH cirrhosis) MEDICATIONS: None ALLERGIES: has No Known Allergies. FAMILY HISTORY: Reviewed, non-contributory REVIEW OF SYSTEMS: A 10 point review of systems was completed and the pertinent positives and negatives are no katlin above in the history of present illness. PHYSICAL EXAMINATION VITALS: BP: 142/66 Temp: 37.1 C (98.7 F) SpO2: 100 % GENERAL: alert, oriented CARD/PULM: appropriate effort, not auscultated NECK: not in cervical collar PELVIS: non-tender, stable to compression RIGHT UPPER EXTREMITY: Inspection: unremarkable Palpation: unremarkable ROM: Full AROM, PROM Motor: makes OK sign, crosses and abducts fingers, gives thumbs up, fires wrist extensors, fires wrist flexors, fires biceps, fires triceps, fires deltoid Sensory: grossly intact to light touch, median, ulnar, radial, axillary Vascular: palpable radial, digits warm, well perfused, capillary refill <2 sec Reflexes: not performed LEFT UPPER EXTREMITY: Inspection: unremarkable Palpation: unremarkable ROM: Full AROM, PROM Motor: makes OK sign, crosses and abducts fingers, gives thumbs up, fires wrist extensors, fires wrist flexors, fires biceps, fires triceps, fires deltoid Sensory: grossly intact to light touch, median, ulnar, radial, axillary Vascular: palpable radial, digits warm, well perfused, capillary refill <2 sec Reflexes: not performed RIGHT LOWER EXTREMITY: Inspection: venous stasis dermatitis Palpation: unremarkable ROM: Full AROM, PROM Motor: fires tibialis anterior, fires gastrocsoleus complex, fires EHL, fires FHL, fires qu ads, fires hamstrings, fires hip flexors Sensory: grossly intact to light touch, medial, lateral, dorsal, 1st dorsal web space, plan tar Vascular: palpable dorsalis pedis, palpable posterior tibial, digits warm & well perfused, capillary refill < 2 seconds, WILDER not indicated Reflexes: not performed LEFT LOWER EXTREMITY: Inspection: significant erythema from knee to ankle, significant edema from knee and distal , fluctuance in foot, ankle, calf, pressure ulcer on heel with some evidence of granulation tissue, exposed screw on dorsum of foot with expressible purulence Palpation: TTP over calf, LLE warm vs right ROM: Full AROM, PROM Motor: fires tibialis anterior, fires gastrocsoleus complex, fires EHL, fires FHL, fires qu ads, fires hamstrings, fires hip flexors Sensory: dimnished sensation in stocking distribution Vascular: palpable dorsalis pedis, palpable posterior tibial, digits warm & well perfused, capillary refill < 2 seconds Reflexes: not performed LABORATORY DATA: No results found for: NA, K, CR, HGB, HCT, WBC, PLT, ESR, CRP DIAGNOSTIC IMAGING: XR left tib/fib and ankle, per my read demonstrate: prior left ankle fusion nail, evidence of loosening of both distal screws with dorsally angulated calcaneal screw protrusion throug h the skin on dorsum of foot. Soft tissue defect over calcaneus. ASSESSMENT: Diane An is a 69 y.o. M with the following orthopaedic injuries/concerns: -concern for infected left ankle fusion nail hardware PLAN: -Some concern for necrotizing fasciitis on presentation given description of symptom onset, clinical picture, LRINEC score of 6. EGS evaluated the patient and thought low concern for NSTI, appreciate their involvement. -Admitted to medicine, appreciate their involvement -NPO now for potential OR today for I&D, possible HWR, possible additional procedures -Marked, consented, added on to OR schedule -Recommend Duplex US of LLE to eval for possible DVT Disposition: admitted to medicine Surgery: yes, to be determined Diet: npo effective now Further Imaging: no additional at this time Supervision: Plan will be discussed with Dr. Marty Fam, Orthopaedic Attending. Follow up:Please call the clinic to make a follow up appointment in approximately 1-2 weeks with ORTHO TRAUMA & FRACTURE, The orthopaedics consult pager is #[phone], please call with questions. Oc Santiago MD, MPH Orthopaedic Surgery Resident p [id number] signed by Olivier Ansari MD at 09/04/2019 4:04 PM PDT Associated attestation - Olivier Ansari MD - 09/04/2019 4:04 PM PDT Agree with note. Patient seen/examined. Briefly, Mr An is a 69yoM with Afib, cirrhosis, neuropathy, and prior trauma and ult imately a left ankle fusion by hindfoot nail 3 years ago in [place] - he presents with wor sening wound and a visiable screw anteriorly. It has been exposed about 5 days. He also has a left heel ulcer. On exam, nontoxic. NAD. No increased WOb no wheeze LLE with severe swelling of the calf, very different from his other side. There is fluctuan ce and cellulitis. Compartments not firm. No pain with passive great toe PF/Df though alread y insensate (baseline). Active great toe dorsi/plantarflexion. 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 I was asked to see him in order to expedi te getting him to OR in the setting of a severe problem. Recommend I&D. Discussed that amputation may well be best option. He is keen to avoid this, and I think we can today. Will include serial debridements. If after 1-2 washouts it doesn' t look viable, will recommend amputation. Discussed with my partners as well. Patient expres ses an understanding. Consent confirmed. Plan to OR this AM.documented in this encounter ED Notes Abdias Laguna MD - 09/04/2019 12:17 AM PDT ED Shared Provider Note, co-authored by Dr. Guillen and Abdias Laguna MD: HPI HPI 69-year-old M with hx of atrial fibrillation, HTN, DM who presents to the ED with L LE pain, swelling, redness, and drainage. He says his symptoms have been present for the pas t 2-3 days. Per chart review, he has a history of chronic lower extremity edema to his left leg with previous injuries, surgeries, and hardware in place. He has a nonhealing wound to h is left heel that is being treated with daily wond care and doxycycline. PCP: Rio Huerta MD There are no active problems to display for this patient. Past medical history: Atrial fibrillation Hypertension Diabetes Past surgical history: None reported Medications None Allergies No Known Allergies Social history: Denies Review of Systems Complete ROS performed and negative except as noted in HPI. ED Triage Vitals BP Temp Pulse Pulse - Plethysmograph Resp SpO2 09/03/19 1821 09/03/197 -- 09/03/19 1825 -- 09/03/191824 142/66 37.1 C 105 pulses/min 100 % Physical Exam Constitutional: He is oriented to person, place, and time. He appears well-developed and we ll-nourished. No distress. HENT: Head: Normocephalic and atraumatic. Eyes: Conjunctivae and EOM are normal. Neck: Normal range of motion. Neck supple. No tracheal deviation present. Cardiovascular: Normal rate, regular rhythm, normal heart sounds and intact distal pulses. No murmur heard. Pulmonary/Chest: Effort normal and breath sounds normal. No respiratory distress. He has no wheezes. He has no rales. Abdominal: Soft. He exhibits no distension. There is no tenderness. There is no rebound and no guarding. Musculoskeletal: Comments: Left lower extremity with market erythema, swelling and fluctuance versus crep itance extending from inferior to the knee all the way to the toes. Sensation decreased. D orsum of the left foot demonstrates a protruding screw covered in purulent material. Neurological: He is alert and oriented to person, place, and time. He has normal strength. No cranial nerve deficit or sensory deficit. He exhibits normal muscle tone. Coordination no rmal. Skin: Skin is warm and dry. No erythema. Psychiatric: His behavior is normal. Nursing note and vitals reviewed. Lab Results Results for orders placed or performed during the hospital encounter of 09/03/19 COMPLETE METABOLIC SET (NA,K,CL,CO2,BUN,CREAT,GLUC,CA,AST,ALT,BILI TOTAL,ALK PHOS,ALB,PROT TOTAL) Result Value Ref Range GLUCOSE, PLASMA (LAB) 84 70 - 99 mg/dL BUN, PLASMA (LAB) 15 6 - 20 mg/dL CREATININE PLASMA (LAB) 0.92 0.70 - 1.30 mg/dL EGFR - CROATIAN >60 >60 mL/min EGFR NON -CROATIAN >60 >60 mL/min SODIUM, PLASMA (LAB) 137 136 - 145 mmol/L POTASSIUM, PLASMA (LAB) 3.7 3.4 - 5.0 mmol/L CHLORIDE, PLASMA (LAB) 104 97 - 108 mmol/L TOTAL CO2, PLASMA (LAB) 28 21 - 32 mmol/L CALCIUM, PLASMA (LAB) 8.9 8.6 - 10.2 mg/dL CALCIUM(ALB CORRECTED) 10.1 8.6 - 10.2 mg/dL BILIRUBIN TOTAL 0.5 0.3 - 1.2 mg/dL TOTAL PROTEIN, PLASMA (LAB) 7.2 6.4 - 8.2 g/dL ALBUMIN, PLASMA (LAB) 2.5 (L) 3.5 - 4.7 g/dL ALK PHOS 118 56 - 119 U/L AST(SGOT) 14 <=41 U/L ALT (SGPT) 12 <=60 U/L ANION GAP 5 4 - 11 mmol/L ANION GAP(ALB CORRECTED) 8 4 - 11 mmol/L POTASSIUM CMNT No Hemo BILI T CMNT No Hemo AST CMNT No Hemo SEDIMENTATION RATE Result Value Ref Range SEDIMENTATION RATE 92 (H) 0 - 20 mm/hr C-REACTIVE PROTEIN Result Value Ref Range C-REACTIVE PROTEIN 178.0 (H) <10.0 mg/L BLOOD BANK HOLD TUBE - DON T PROCESS Result Value Ref Range SPECIMEN COLLECTED, HELD Sample received with adeq label/volume to process INR Result Value Ref Range INR 1.30 (H) 0.90 - 1.20 INR BG-LAC,POC ISTAT Result Value Ref Range TOTAL CO2 JACINTO, POC 28 23 - 29 mmol/L PH VENOUS, POC 7.44 7.35 - 7.45 PCO2 VENOUS, POC 40 35 - 50 mmHg HCO3 VENOUS, POC 27 22 - 28 mmol/L PO2 VENOUS, POC 41 30 - 55 mmHg O2 SAT VENOUS, POC 79 95 - 98 % LACTATE VENOUS, POC 0.8 0.5 - 2.0 mmol/L PAT TEMP VENOUS,POC 97.8 BASE EXCESS JACINTO, POC 3.0 -2 - 3 mmol/L CBC AND AUTO DIFF Result Value Ref Range WHITE CELL COUNT 8.07 3.50 - 10.80 K/cu mm RED CELL COUNT 4.15 (L) 4.50 - 6.00 M/cu mm HEMOGLOBIN 10.2 (L) 13.5 - 17.5 g/dL HEMATOCRIT 32.8 (L) 41.0 - 53.0 % MCV 79.0 (L) 80.0 - 100.0 fL MCHC 31.1 (L) 32.0 - 36.0 g/dL RDW SD 43.6 35.1 - 46.3 fL PLATELET COUNT 363 150 - 400 K/cu mm MPV 9.7 9.7 - 12.3 fL NRBC% 0.0 0.0 - 0.3 % NRBC# 0.00 0.00 - 0.02 K/cu mm NEUTROPHIL % 74.1 (H) 50.0 - 70.0 % LYMPHOCYTE % 12.1 (L) 18.0 - 42.0 % MONOCYTE % 10.0 (H) 3.5 - 9.0 % EOS % 3.0 1.0 - 3.0 % BASO % 0.4 0.0 - 2.0 % IG% 0.4 0.0 - 1.0 % NEUTROPHIL # 5.98 1.80 - 7.70 K/cu mm LYMPHOCYTE # 0.98 (L) 1.00 - 4.80 K/cu mm MONOCYTE # 0.81 0.10 - 0.90 K/cu mm EOS # 0.24 0.00 - 0.50 K/cu mm BASO # 0.03 0.00 - 0.10 K/cu mm IG# 0.03 0.00 - 0.10 K/cu mm Imaging Results (last 24 hours) X-ray Ankle 2 Views Left Result Date: 09/03/2019 EXAM: TIBIA AND FIBULA 2 VIEWS LT, ANKLE 2 VIEWS LEFT HISTORY: cellulitis, hardware in carina ce, concern for associated hardware infection COMPARISON: None. IMPRESSION: Extensive exp ansile lucency is noted throughout the musculature of the calf consistent with gas throughou t the soft tissues indicating necrotizing fasciitis. Extensive subcutaneous fat edema is als o noted, in keeping with a history of cellulitis. Normal alignment seen at the knees. Postsu rgical and likely posttraumatic deformity of the ankle is noted with fusion across the subta lar and tibiotalar joint spaces. There is loosening around both distal screws concerning for motion. A deep soft tissue ulcer is present over the calcaneus. Critical results were disc ussed with the orthopedic surgery resident in the emergency department on 09/03/2019 8:30 PM by Makeda James MD : I have personally reviewed the images and, if necessary, edit ed the report. I agree with the report as now presented. Final signature: Joselito Faulkner 09/03/2019 8:31 PM Preliminary: Makeda James MD Dictation initiated: Makeda Young i, MD 09/03/2019 8:15 PM X-ray Tibia & Fibula 2 Views Lt Result Date: 09/03/2019 EXAM: TIBIA AND FIBULA 2 VIEWS LT, ANKLE 2 VIEWS LEFT HISTORY: cellulitis, hardware in carina ce, concern for associated hardware infection COMPARISON: None. IMPRESSION: Extensive exp ansile lucency is noted throughout the musculature of the calf consistent with gas throughou t the soft tissues indicating necrotizing fasciitis. Extensive subcutaneous fat edema is als o noted, in keeping with a history of cellulitis. Normal alignment seen at the knees. Postsu rgical and likely posttraumatic deformity of the ankle is noted with fusion across the subta lar and tibiotalar joint spaces. There is loosening around both distal screws concerning for motion. A deep soft tissue ulcer is present over the calcaneus. Critical results were disc ussed with the orthopedic surgery resident in the emergency department on 09/03/2019 8:30 PM by Makeda James MD : I have personally reviewed the images and, if necessary, edit ed the report. I agree with the report as now presented. Final signature: Joselito Faulkner 09/03/2019 8:31 PM Preliminary: Makeda James MD Dictation initiated: Makeda Young i, MD 09/03/2019 8:15 PM ED COURSE AND MEDICAL DECISION MAKING: The patient is a 69-year-old male who presents with concern for left lower extremity infect ion. Vitals reviewed and unremarkable. Physical exam as above. Differential includes but is not limited to cellulitis, osteomyelitis, abscess, necrotizing skin infection. Labs imaging reviewed and notable for the following findings: Microcytic anemia with hemoglobin of 10.2, elevated INR to 1.3, normal lactate, elevated CR P and ESR, normal CMP. X-rays of the left lower extremity demonstrate extensive gas concerning for a necrotizing s kin infection. At this point, general surgery and orthopedic surgery were consulted who saw the patient at bedside. At this point, they are concerned for either abscess versus necrotizing skin infe ction. They requested that we hold off on antibiotics unless the patient become unstable he modynamically. We believe this is a fair request. The patient was admitted to internal [facility] with the services following for management of severe lower extremity infection. ED Medication Administration from 09/03/2019 1809 to 09/04/2019 0017 Date/Time Order Dose Route Action 09/03/2019 1924 lactated ringers IV 1,000 mL intravenous New Bag Admit Requested: Sep 03, 2019 9:57 PM IMPRESSION: M79.89 Necrotizing soft tissue infection T84.7XXA 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) L02.91 Abscess PLAN, DISPOSITION AND FOLLOW-UP: Admit medicine, gen surg and ortho following Abdias Laguna MD New Prescriptions No medications on file Abhilash Vinson MD - 09/03/2019 11:10 PM PDTIPAS(S) Handoff Note I received sign-out and accepted care of this patient from the departing resident and atten ding at 11:10 PM. Please see the primary providers note for complete elements of the hist ory, physical exam, and ED course. Illness Severity: Stable Patient Summary: Most recent vital signs: BP 130/65 | Temp 36.6 C (Oral) | SpO2 100% Diane An is a 69 y.o. male with a PMHx of afib, htn, dm presented to the ED with leg infection, abscess vs NSTI, gensurg/ortho consulting, admit med. No abx. Not septic. Lab and imaging results: N/a Action plan (To Do): [ ] admitted. Abx if becomes septic ED Course Following Sign Out: N/a Abhilash Fatima MD Jai Butler RN - 6:13 PM PDTBed: 06 Expected date: Expected time: Means of arrival: Comments: Rosalindayaritza nixRufuslectronically signed by Jai Harris RN at 09/03/2019 6:13 PM Basilio Butler RN - 09/03/2019 3:09 PM PDTOHSU Peds/Adult ED Referral Note Call From (Facility/Staff): [facility] Demographics/PMHx: foot surg in 2015, etoh use afib, type 2 Chief Complaint: local ortho believes implanted pin is moving Expectation of care from [facility]: ortho eval? Code Status/Polst: full Interventions performed/Meds given: xray pushed, l wrist 20g Pertinent Labs: wbc 8.7, reactive pending VS/Weight:: BP 100/64, hr 98, 02 sats 100, 98.4 temp Transportation/ETA: 6:30 coming pov documented in this encou nter Miscellaneous Notes Plan of Care - Caroline White RN - 09/17/2019 12:07 PM PSTCase Management OPAT Plan of Ca re: Hospital discharge date: 09/17/2019 This patient will be followed for all post hospital OPAT care needs by: [facility] OPAT/[facility], ; IV antibiotic orders were provided to: [facility], Phone: [phone], , Liaison has viewable access to Vascular access note Parenteral supportive orders for labs and vascular access care were provided to: Same as gilbert maria elena Other details pertinent to OPAT Plan of care: TBD lan of Care - Anne Isidro RN - 09/17/2019 12:07 PM PSTNursing Discharge Note Discharge Date: 09/17/2019 Additional Discharge Information: Reported called to SNF, given package for facility. Danielito dalal off unit and into vehicle with nurse, discharge to SNF via private vehicle. Discharge Nurse: ANNE ISIDRO RN andoff - Juan J Ambriz RN - 09/16/2019 2:50 PM PSTNursing Handoff Patient Daily Goal: "Sleep tonight." (09/16/19 0011) Patient Specific Preferences: Cluster care ([id number]) [facility] IP NURSE HANDOFF: Cespedes hospital course events: 09/04 Sp Left leg irrigation and debrid ement. Left leg fasciotomy. Left leg removal of hardware. Placement of wound vac initially. Hx; 69 y.o. M w/ PMH AFIB RVR , etoh cirrhosis, left ankle fusion 3 years ago who presents with exposed screw on the dorsum of the left foot with overlying LLE cellulitis, left heel p ressure ulcer, left leg fluctuance as well as gross edema and purulent drainage from screw e xposure site (per MD note). 09-04-19 S/p LLE hardware removal, I&D. 09/06 s/p fasciotomy closure. SAFETY Patient/Family Target: Diane will call for assist and use call light. Progress to Target: Improving As evidenced by: Diane uses call light appropriately. Does not attempt to get OOB. Uses urinal at bedside. Unsteady on R leg, 2 person with max assisted for stand up. Using ceiling lift with seated sling up to chair with nursing, using sit to stand lift with PT. PT got up in Standing appar atus today, pt states he did well. COMFORT/ANXIETY/BEHAVIOR Patient/Family Target: Diane's pain will be adequately controlled Progress to Target: Improving As evidenced by: Denied pain this shift. States he is happy with current scheduled pain medications. HYGIENE/INFECTION Patient/Family Target: Diane will be free from infection Progress to Target: No Change As evidenced by: PICC line Left arm. Using urinal. Hx MRSA RESTORATIVE MEASURES/SELF-MANAGEMENT Patient/Family Target: Diane will be able to get oob independently Diane will have normal BM Diane will have adequate intake Progress to Target: Improving As evidenced by: Able to turns independently in bed but need reminder to move/turns. Generalized weakness that still need lift to get in/out of bed. Small appetite and needs reminders to order food, pt may order from cafeteria now. Had large BM this am. NURSING ASSESSMENT & RECOMMENDATIONS FORWARD Nursing Assessment of Patient Stability Risk: Moderately stable Recommendations Forward: - Pt would like his Flu shot day of discharge 09/17/19. - Continue to elevate left leg. Wear rooke boot in bed. - PICC line L arm -Dressing changed 09/15, next dressing change 09/17 - Assess pain and medicate PRN, no complaints so far today. - Encourage foot pump exercise while in bed and PT/OT to follow. Barriers to discharge: long term IV antibiotics, increased mobility. He would like to retur n to his previous facility for PT/recovery. Pt to be discharged back to his facility in [place] tomorrow, pt will call his ride who i s picking him up tomorrow. andoff - Katina, Indu hewitt RN - 09/16/2019 1:48 PM PSTNursing Handoff Patient Daily Goal: "Sleep tonight." (09/16/19 0011) Patient Specific Preferences: Cluster care (09/04/191945) [facility] IP NURSE HANDOFF: Cespedes hospital course events: 09/04 Sp Left leg irrigation and debrid ement. Left leg fasciotomy. Left leg removal of hardware. Placement of wound vac initially. Hx; 69 y.o. M w/ PMH AFIB RVR , etoh cirrhosis, left ankle fusion 3 years ago who presents with exposed screw on the dorsum of the left foot with overlying LLE cellulitis, left heel p ressure ulcer, left leg fluctuance as well as gross edema and purulent drainage from screw e xposure site (per MD note). 09-04-19 S/p LLE hardware removal, I&D. 09/06 s/p fasciotomy closure. SAFETY Patient/Family Target: Diane will call for assist and use call light. Progress to Target: Improving As evidenced by: Diane uses call light appropriately. Does not attempt to get OOB. Uses urinal at bedside. Unsteady on R leg, 2 person with max assisted for stand up. Using ceiling lift with seated sling up to chair with nursing, using sit to stand lift with PT. PT got up in Standing appar atus today, pt states he did well. COMFORT/ANXIETY/BEHAVIOR Patient/Family Target: Diane's pain will be adequately controlled Progress to Target: Improving As evidenced by: Denied pain this shift. States he is happy with current scheduled pain medications. HYGIENE/INFECTION Patient/Family Target: Diane will be free from infection Progress to Target: No Change As evidenced by: PICC line Left arm. Using urinal. Hx MRSA RESTORATIVE MEASURES/SELF-MANAGEMENT Patient/Family Target: Diane will be able to get oob independently Diane will have normal BM Diane will have adequate intake Progress to Target: Improving As evidenced by: Able to turns independently in bed but need reminder to move/turns. Generalized weakness that still need lift to get in/out of bed. Small appetite and needs reminders to order food, pt may order from cafeteria now. Had large BM this am. NURSING ASSESSMENT & RECOMMENDATIONS FORWARD Nursing Assessment of Patient Stability Risk: Moderately stable Recommendations Forward: - Continue to elevate left leg. Wear rooke boot in bed. - PICC line L arm -Dressing changed 09/15, next dressing change 09/17 - Assess pain and medicate PRN, no complaints so far today. - Encourage foot pump exercise while in bed and PT/OT to follow. Barriers to discharge: group home IV antibiotics, increased mobility. He would like to retur n to his previous facility for PT/recovery. Pt to be discharged back to his facility in [place] tomorrow, pt will call his ride who i s picking him up tomorrow. 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 Present throughout session in addition to patient and therapist: no one Brief Hospital Course: 69 y.o. Mwith AF on digoxin, ETOH cirrhosis, ETOH Use D/O in remis jerrod, left ankle fusion 3 years ago presenting with exposed hardware, now s/p four-compartme nt fasciotomy, debridement, removal of hardware, followed by repeat debridement and fascioto my closure, on vancomycin for MRSA SSTI/OM (per MD note, 09/15) Status Update: no acute changes Relevant Precautions: non weight bearing left lower extremity, fall risk d/t deconditionin g and weakness Subjective: "That was the best I think I have done!" Pain: no pain reported, does not endorse pain this visit Objective: Supine in bed at start of session. Discussed activity plan and pt in agreement. Reviewed precautions. PT to assist don of beside AFO and socks in supine Patient Mod (I) supine <> sit with head of bed slightly elevated, no rails. Supervision to scoot toward edge of bed, maintaining NWBing precautions Sit to stand with Lumex, Mod A x1, tactile cueing at hips and shoulders. Left lower extremi ty resting on Lumex with AFO on. Performed static standing x1 for 30 seconds, seated rest break between standing. Performed static standing x1 for 30 seconds, then peformed standing partial squat in Lumex x 5 Returned to supine, Min A for LE management. Education: regarding NBWing precautions, mobilizing frequent, therapeutic exercises for bed . Therapeutic exercise: discussed supine ankle pumps 1 x 10 reps, glut squeezes 1 x 15 reps, bilateral quad squeeze, 1 x 15 reps. Patient left supine in bed, call light and necessities in reach. RN consulted of session. [facility] BASIC MOBILITY Difficulty turning over in bed 4 - None - Modified Independent/Independent Difficulty sitting/standing from chair w/ arms 2 [...] to do/total assistance - Total/Dependen t Assist [facility] Basic Mobility Total Score 12 Interpretation of [facility] Short Form - Basic Mobility: CMS [...] 24 0% impaired, limited, or restricted Assessment: Diane was very eager to participate during today's session and quite pleased wit h how well her performed today. 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 While he demonstrates improved strength, he does con tinue to have limited endurance and activity tolerance which impacts his functional mobility . Continue to recommend DC to SNF due to the above impairments. PT will continue to follow. Goals: Problem: PT Goals- Adult Goal: Functional Mobility Goal Description Patient will perform bed mobility independently Patient will perform supine to edge of bed independently Patient will be independent with lower extremity strength training exercises 09/12/19 Patient will perform sit to stand transfer with mod assist x 1 P, using standing frame Outcome: Gradual progress toward goal Updated Plan & Recommendations: continue sit to stand with Lumex, therex as tolerated ACTIVITY PLAN: *Nursing to re-assess per shift as needed.* - Lights on and curtains open during day hours. - Up to chair for meals or 1-2x/day with overhead lift and 2P for safety DISCHARGE RECOMMENDATIONS: 24 hour skilled care;Continued PT at next level of care Equipment recommendations: defer Shamar Ley PT, DPT Should this patient discharge from the hospital prior to the next physical therapy treatmen t, this note shall serve as the discharge summary. Wilfrid - Kaden Hilton RN - 09/16/2019 1:19 AM PSTNursing Handoff Patient Daily Goal: "Sleep tonight." (09/16/19 0011) Patient Specific Preferences: Cluster care (09/04/19 0483) [facility] IP NURSE HANDOFF: Cespedes hospital course events: 09/04 Sp Left leg irrigation and debrid ement. Left leg fasciotomy. Left leg removal of hardware. Placement of wound vac. Hx; 69 y.o. M w/ PMH AFIB RVR , etoh cirrhosis, left ankle fusion 3 years ago who presents with exposed screw on the dorsum of the left foot with overlying LLE cellulitis, left heel p ressure ulcer, left leg fluctuance as well as gross edema and purulent drainage from screw e xposure site (per MD note). 09-04-19 S/p LLE hardware removal, I&D. 09/06 s/p fasciotomy closure. SAFETY Patient/Family Target: Diane will call for assist and use call light. Progress to Target: Improving As evidenced by: Diane uses call light appropriately. Does not attempt to get OOB on own. Uses urinal at be dside. Unsteady on R leg, 2 person with max assisted for stand up. Using ceiling lift with seated sling up to chair with nursing, using sit to stand lift with PT. COMFORT/ANXIETY/BEHAVIOR Patient/Family Target: Diane's pain will be adequately controlled Progress to Target: Improving As evidenced by: Denied pain this shift. States he is happy with current scheduled pain medications. HYGIENE/INFECTION Patient/Family Target: Diane will be free from infection Progress to Target: No Change As evidenced by: Devante bath done 09/15 and IS use. VSS. RESTORATIVE MEASURES/SELF-MANAGEMENT Patient/Family Target: Dinae will be able to get oob independently Diane will have normal BM Diane will have adequate intake Progress to Target: Improving As evidenced by: Able to turns independently in bed but need reminder to move/turns. Generalized weakness that still need lift to get in/out of bed. Small appetite and needs reminders to order food. NURSING ASSESSMENT & RECOMMENDATIONS FORWARD Nursing Assessment of Patient Stability Risk: Moderately stable Recommendations Forward: - Continue to elevate left leg. Wear rooke boot in bed. - PICC line L arm -Dressing changed 09/15, next dressing change 09/17 - Assess pain and medicate PRN - OOB to chair, Encourage foot pump exercise while in bed and PT/OT to follow. 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 He would like to retur n to his previous facility for PT/recovery lan of Care - Crystal Galvin, PT - 09/15/2019 11:07 AM PSTFormatting of this note might be different from the orig inal. Physical Therapy 09/15/2019 11:07 AM Time in: 1022 Time out: 1100 Patient was seen for a total of 38 minutes of direct one on one skilled physical therapy wh ich included 28 minutes of therapeutic activity and 10 minutes of therapeutic exercise Patient seen on 09/15/2019 Hospital Day: 12 Present throughout session: RN initially Brief Hospital Course: 69 y.o. Mwith AF on digoxin, ETOH cirrhosis, ETOH Use D/O in remis jerrod, left ankle fusion 3 years ago presenting with exposed hardware, now s/p four-compartme nt fasciotomy, debridement, removal of hardware, followed by repeat debridement and fascioto my closure, on vancomycin for MRSA SSTI/OM (per MD note, 09/15) Status Update: No acute changes Relevant Precautions: non weight bearing left lower extremity, fall risk d/t deconditionin g and weakness Subjective: Diane presents awake in bed, agreeable to working with PT. Pain: No pain reported Objective: Bed Mobility - stand by assist supine to sit with use of bed rails; able to manage left lower extremity independent - fair seated balance upon sitting edge of bed - able to scoot self when seated edge of bed at stand by assist - stand by assist sit to supine at end of session - able to scoot and position self in bed independent Transfers and Gait - sit to stand with Lumex with elevated bed height: initially minimum assist with regressio n to moderate assist x2 by last stand. Had pt place left lower extremity on hernandez block to pr event pt from placing weight bearing through left lower extremity - tolerated about 2-3 minutes of standing in Lumex before requesting to sit, fair standing balance with heavy reliance on bilateral upper extremities for support - attempted to do mini squats with use of flaps down however, pt did not like the flaps, ge tting annoyed and demanding for the flaps to "get out of his way" Balance - fair seated balance, uses bilateral upper extremities for support and tends to posteriorl y lean - fair standing balance within Lumex with heavy reliance on bilateral upper extremities for support Therapeutic Exercise - straight leg raise 10 reps - heel slides 10 reps - hip abduction 10 reps Education - continue home exercise program - safety with mobility - pacing with activity End of session: Pt in bed with call light within reach and all needs met, RN updated on all findings. Assessment: Diane continues to demonstrate improvements with tolerance to activity however, he is still significantly limited by fatigue and pain. Continuing to recommend skilled nursi [facility], PT to follow. Problem: PT Goals- Adult Goal: Functional Mobility Goal Description Patient will perform bed mobility independently Patient will perform supine to edge of bed independently Patient will be independent with lower extremity strength training exercises 09/12/19 Patient will perform sit to stand transfer with mod assist x 1 P, using standing frame Outcome: Gradual progress toward goal Activity Recommendations for Nursing partners: *Nursing to re-assess per shift as needed.* - Lights on and curtains open during day hours. - Up to chair for meals or 1-2x/day with overhead lift and 2P for safety DISCHARGE RECOMMENDATIONS: 24 hour skilled care;Continued PT at next level of care DME Needs: defer Valeria Galvin PT, DPT Pager [phone] Should this patient discharge from the hospital prior to the next physical therapy treatmen t, this note shall serve as the discharge summary. andoff - Maribel Alcantar RN - 09/13/2019 5:56 PM PDTNursing Handoff Patient Daily Goal: bowel care, increase activities, prevention of infection and skin break down, and promote diet (09/12/19 0800) Patient Specific Preferences: Cluster care (09/04/19 1946) [facility] IP NURSE HANDOFF: Cespedes hospital course events: 09/04 Sp Left leg irrigation and debrid ement. Left leg fasciotomy. Left leg removal of hardware. Placement of wound vac. Hx; 69 y.o. M w/ PMH AFIB RVR , etoh cirrhosis, left ankle fusion 3 years ago who presents with exposed screw on the dorsum of the left foot with overlying LLE cellulitis, left heel p ressure ulcer, left leg fluctuance as well as gross edema and purulent drainage from screw e xposure site (per MD note). 09-04-19 S/p LLE hardware removal, I&D. 09/06 s/p fasciotomy closure. SAFETY Patient/Family Target: Diane will call for assist and use call light. Progress to Target: Improving As evidenced by: Diane uses call light appropriately. Does not attempt to get OOB on own. Uses urinal at be dside. Unsteady on R leg, 2 person with max assisted for stand up. Need lift to chair this shift. COMFORT/ANXIETY/BEHAVIOR Patient/Family Target: Diane's pain will be adequately controlled Progress to Target: Improving As evidenced by: Denied pain during the evening. States he is happy with current scheduled pain medication s. HYGIENE/INFECTION Patient/Family Target: Diane will be free from infection Progress to Target: No Change As evidenced by: Devante bath done and IS use. Dressing change done. RESTORATIVE MEASURES/SELF-MANAGEMENT Patient/Family Target: Diane will be able to get oob independently Diane will have normal BM Diane will have adequate intake Progress to Target: Improving As evidenced by: Got 2 soft non formed stool this am. Laxative hold this shift. Able to turns independently in bed but need reminder to move/turns. Generalized weakness that still need lift to get in/out of bed. Sit in the chair most of m y shift. Small appetite and needs reminders to order food. NURSING ASSESSMENT & RECOMMENDATIONS FORWARD Nursing Assessment of Patient Stability Risk: Moderately stable Recommendations Forward: - Continue to elevate left leg. Wear rooke boot in bed. - Next dressing change 09/15. - PICC line L arm - Assess pain and medicate PRN - OOB to chair, Encourage foot pump exercise while in bed and PT/OT to follow. 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 He would like to retur n to his previous facility for PT/recovery lan of Care - Maria Elena Alcantar RN - 09/13/2019 5:56 PM PDT Problem: General Plan of Care (Adult) Goal: Individualization/Patient-Specific Goal: Increase activities: OOB to chair Bowel care: normal BM Nutrition: encourage healthy diet and eat more than 50% of 3 meals Infection control: daily devante bath and dressing change. Outcome: goal met for this shift andoff - Kendall Ford se, RN - 09/13/2019 1:25 AM PDTNursing Handoff Patient Daily Goal: bowel care, increase activities, prevention of infection and skin break down, and promote diet (09/12/19 0800) Patient Specific Preferences: Cluster care (09/04/19 194) [facility] IP NURSE HANDOFF: Cespedes hospital course events: 09/04 Sp Left leg irrigation and debrid ement. Left leg fasciotomy. Left leg removal of hardware. Placement of wound vac. Hx; 69 y.o. M w/ PMH AFIB RVR , etoh cirrhosis, left ankle fusion 3 years ago who presents with exposed screw on the dorsum of the left foot with overlying LLE cellulitis, left heel p ressure ulcer, left leg fluctuance as well as gross edema and purulent drainage from screw e xposure site (per MD note). 09-04-19 S/p LLE hardware removal, I&D. 09/06 s/p fasciotomy closure. SAFETY Patient/Family Target: Diane will call for assist and use call light Progress to Target: Improving As evidenced by: Diane uses call light appropriately. Does not attempt to get OOB on own. Uses urinal at be dside. Unsteady on R leg. Need lift to help with OOB to BSC. COMFORT/ANXIETY/BEHAVIOR Patient/Family Target: Diane's pain will be adequately controlled Progress to Target: Improving As evidenced by: Diane stated he is happy with current scheduled pain medications. HYGIENE/INFECTION Patient/Family Target: Diane will be free from infection Progress to Target: No Change As evidenced by: IV dressing was changed yesterday during the day. RESTORATIVE MEASURES/SELF-MANAGEMENT Patient/Family Target: Diane will be able to get oob independently Diane will have normal BM Progress to Target: Improving As evidenced by: Diane declined offer to use BSC this evening, preferred to try and use the bedpan tonight if needed. Able to turns independently in bed but need reminder to move/turns. Continues to work with PT to increase mobility and time OOB. Recliner chair ordered and Diane agreed to get OOB to c hair more often. NURSING ASSESSMENT & RECOMMENDATIONS FORWARD Nursing Assessment of Patient Stability Risk: Moderately stable Recommendations Forward: - Continue to elevate left leg. Wear rooke boot in bed. - Next dressing change 09/13. - PICC line L arm - Assess pain and medicate PRN -Bowel care. Diane would like to discuss suppository 11 AM if he has not had BM by them -OOB to chair, Encourage foot pump exercise while in bed and PT/OT to follow. Barriers to discharge: fci IV antibiotics, increased mobility. He would like to retur n to his previous facility for PT/recovery lan of Care - Gilbert Alcantar RN - 09/12/2019 6:00 PM PDT Problem: General Plan of Care (Adult) Goal: Individualization/Patient-Specific Goal: bowel care, increase activities, prevention of infection and skin breakdown, and promote diet Outcome: Expected progress toward goal Electronically signed by [facility] Shania Alcantar RN at 09/13/2019 5:57 PM PDTPlan of Care - Irina Shah, PT - 09/12/2019 3:51 PM PDTFormatting of this note might be different from the o riginal. Problem: PT Goals- Adult Goal: Functional Mobility Goal Description Patient will perform bed mobility independently Patient will perform supine to edge of bed independently Patient will be independent with lower extremity strength training exercises 09/12/19 Patient will perform sit to stand transfer with mod assist x 1 P, using standing frame Outcome: Gradual progress toward goal Physical Therapy 09/12/2019 3:51 PM Admit Date : 09/03/2019 Hospital Day: 9 Age : 69 y.o. Time in: 1410 Time out: 1450 Patient was seen for a total of 40 minutes of direct one on one skilled physical therapy wh ich included 30 minutes of therapeutic activities ,15 minutes of therapeutic exercises Brief Hospital Course: 69 y.o. Mwith a fib on digoxin, etoh cirrhosis, etoh use disorder in remission, left ankle fusion 3 years ago presenting with exposed hardware, now s/p four-c ompartment fasciotomy, debridement, removal of hardware, followed by repeat debridement and fasciotomy closure As per MD notes,09/12/19 History reviewed. No pertinent past medical history. Status Update: no acute changes Relevant Precautions: left lower extremity non weight bearing- 6 weeks, elevated Subjective: Patient agreed to work with PT,"This machine is helpful.I have never used it be fore." Pain: none endorsed Objective: Patient received sitting in chair, left lower extremity -elevated, rooke boot on, Patient performed bilateral lower extremity -hip flexion,long arc quads and ankle toe movem ents-10 reps each- active range of motion Patient was transfered from chair to edge of bed- dependent transfer Standing frame-lumex used for sit to stand tranfers- gait belt on,RN present in room to ass ist-maintained left lower extremity -non weight bearing, mod assist x 1 P, increased bed hei ght,static standing 2 mins,no bucking of right knee, non weight bearing left lower extremit y, max assist x 1P, static standing 3 mins, no bucking of right knee,verbal cues for correct hand and feet placement, rest break after each rep, left lower extremity placed over left k nee block area-to prevent any weight bearing on left lower extremity, Sit to stand from edge of bed -increased height-max assist x 2P,RN present in room to danielito t, unable to stand tall,able to lift off bed, was tired, Patient was positioned back in bed, standby assist, cues to scoot back,sit pivot transfer b ack to bed, In bed, lower extremity strength training exercises- ankle toe movements,heel slides, hip f lexion, hip abduction, isometric quads and gleuts-10 reps each, active range of motion ,bila teral lower extremity Patient education on lower extremity strength training exercises-provided with handout,impo rtance of out of bed activities,NWB precautions- left lower extremity Patient vitals stable pre and post therapy session,asymptoamic Patient was left in bed,call campo within reach and RN was notified [facility] BASIC MOBILITY Difficulty turning over in bed 4 - None - Modified Independent/Independent Difficulty sitting/standing from chair w/ arms 2 [...] to do/total assistance - Total/Dependen t Assist [facility] Basic Mobility Total Score 12 Assessment: Patient was motivated to try standing actvitiy .Patent progressed to sit to sta nd trnasfers using lumex-standing frame in today's session.Patient showed increased activity tolerance to sit to stand.Fatigue limiting further sit to stand transfers in today's sessio n. This patient has good rehabilitation potential to achieve stated goals and requires contin ued skilled physical therapy rehabilitation services - gait training ,neuromuscular re-educa tion,therapeutic activities to meet his goals. Interpretation of [facility] Short Form - Basic Mobility: CMS [...] CH 24 0% impaired, limited, or restricted See care plan for goals. Updated Plan & Recommendations: ACTIVITY PLAN: *Nursing to re-assess per shift as needed.* - Lights on and curtains open during day hours. - Up to chair 3 x/day for meals and as needed with ceiling lift and 2 person assist. Discharge Recommendations: 24 hour skilled care;Continued PT at next level of care DME needed at discharge: defer to facility RN was notified of discharge recommendations. Should this patient discharge from the hospital prior to the next physical therapy treatmen t, this note shall serve as the discharge summary. Next visit: sit to stand-lumex Irina Hernández PT #[id number] signed by Irina Hernánedz PT at 09/12/2019 4:12 PM PDTPlan of Care - C Irina san, PT - 09/12/2019 3:51 PM PDT Problem: PT Goals- Adult Goal: Functional Mobility Goal Description Patient will perform bed mobility independently Patient will perform supine to edge of bed independently Patient will be independent with lower extremity strength training exercises 09/12/19 Patient will perform sit to stand transfer with mod assist x 1 P, using standing frame Outcome: Gradual progress toward goal onzalez Manrique, RN - 09/12/2019 3:44 AM PDTNursing Handoff Patient Daily Goal: order breakfast. (09/11/19 0905) Patient Specific Preferences: Cluster care (09/04/191945) [facility] IP NURSE HANDOFF: Cespedes hospital course events: 09/04 Sp Left leg irrigation and debrid ement. Left leg fasciotomy. Left leg removal of hardware. Placement of wound vac. Hx; 69 y.o. M w/ PMH AFIB RVR , etoh cirrhosis, left ankle fusion 3 years ago who presents with exposed screw on the dorsum of the left foot with overlying LLE cellulitis, left heel p ressure ulcer, left leg fluctuance as well as gross edema and purulent drainage from screw e xposure site (per MD note). 09-04-19 S/p LLE hardware removal, I&D. 09/06 s/p fasciotomy closure. SAFETY Patient/Family Target: Diane will call for assist and use call light Progress to Target: Improving As evidenced by: Diane uses call light appropriately. Does not attempt to get OOB on own. Uses urinal at be dside. Unsteady on R leg. Need lift to help with OOB to BSC. COMFORT/ANXIETY/BEHAVIOR Patient/Family Target: Diane's pain will be adequately controlled Progress to Target: Improving As evidenced by: Denied pain during the evening. States he is happy with current scheduled pain medication s. HYGIENE/INFECTION Patient/Family Target: Diane will be free from infection Progress to Target: No Change As evidenced by: Devante bath done and IS use. Dressing change this am. RESTORATIVE MEASURES/SELF-MANAGEMENT Patient/Family Target: Diane will be able to get oob independently Diane will have normal BM Progress to Target: Improving As evidenced by: Diane declined offer to use BSC this evening, preferred to try and use the bedpan. Small s mear BM, Diane agreed to discuss suppository in the morning if he had not had regular BM by velvet yang. Able to turns independently in bed but need reminder to move/turns. Continues to work with PT to increase mobility and time OOB. Recliner chair ordered and Diane agreed to get OOB to c hair more often. NURSING ASSESSMENT & RECOMMENDATIONS FORWARD Nursing Assessment of Patient Stability Risk: Moderately stable Recommendations Forward: - Continue to elevate left leg. Wear rooke boot in bed. - Next dressing change 09/13. - PICC line L arm - Assess pain and medicate PRN -Bowel care. Diane would like to discuss suppository 09/12 AM if he has not had BM by them -OOB to chair, Encourage foot pump exercise while in bed and PT/OT to follow. Barriers to discharge: fci IV antibiotics, increased mobility. He would like to retur n to his previous facility for PT/recovery lan of Care - Solitario Weathers, PT - 09/11/2019 4:21 PM PDTFormatting of this note might be different from the normaa anoop Physical Therapy 09/11/2019 4:21 PM Time in: 1515 Time out: 1555 Hospital Day: 8 Patient was seen on 4A. Present during session other than PT and patient: none Patient was seen for a total of 40 minutes of direct one on one skilled Physical Therapy wh ich included 40 minutes of therapeutic activity. Brief Hospital Course: 69 y.o. Mwith a fib on digoxin, etoh cirrhosis, etoh use disorder in remission, left ankle fusion 3 years ago presenting with exposed hardware, now s/p four-c ompartment fasciotomy, debridement, removal of hardware, followed by repeat debridement and fasciotomy closure.(per MD Devin 09/11/19) Status Update: no acute change Relevant Precautions: left lower extremity NWB Subjective: Patient reports just now feeling like he is thinking clearly. Pain: controlled Vital Signs: stable based on observation, no shortness of breath/dizziness/lightheadedness Objective: Patient received in supine, agrees to therapy. Environment set-up and patient educated on stand pivot transfer and use of slide board. Phy sical therapist demonstrated proper set-up for transfer and use of slide board. Patient transferred from supine to sitting with cuing to maintain left lower extremity NWB. Patient scooted to edge of bed once in sitting with cuing for weight shifting and hand plac ement with increased effort. Patient assisted with wheelchair setup and slide board set. Attempted slide board transfer from edge of bed to wheelchair with cuing for hand placement, foot placement, anterior weigh t shift, and assist. Patient was unable to perform transfer properly with max cuing, multipl e demonstration due to poor technique. Patient would not anterior weight over right foot, in stead leaning posteriorly each time causing right foot to slide anteriorly. Physical therapi st attempted blocking right lower extremity, additional demonstration, and breaking task merle n step by step. Patient continued to be unable to perform with proper biomechanics. Attempt ed to just scoot left and right at edge of bed and again patient unable to weight shift ante riorly despite cuing and facilitation. Patient transferred to supine and was able to scoot up in bed with left lower extremity sukhjinder dging. [facility] BASIC MOBILITY Difficulty turning over in bed 4 - None - Modified Independent/Independent Difficulty sitting/standing from chair w/ arms 1 [...] to do/total assistance - Total/Dependen t Assist [facility] Basic Mobility Total Score 11 Ended session: Patient left in supine with call campo within reach and RN updated. ASSESSMENT: Patient unable to perform slide board or stand pivot transfer while maintaining left lower extremity NWB precautions. Patient did demonstrate good strength in right lower extremity with bridge and scooting in supine. Seems patient's inability to perform transfers to difficult motor planning/biomechanics that just strength deficits. Will continue to work toward improved transfers and mobility. This patient has good rehabilitation potential to achieve stated goals (see Care Plan for g oals) and requires continued rehabilitation services, given the patient's treatment is at a level of complexity or sophistication requiring the skills of a therapist. Problem: PT Goals- Adult Goal: Functional Mobility Goal Description Patient will perform bed mobility independently Patient will perform supine to edge of bed independently Patient will be independent with lower extremity strength training exercises Updated 09/11/19: Patient will perform stand pivot transfer with moderate assist while maintaining left lower extremity NWB Outcome: Unable to show progress Plan: ACTIVITY PLAN: *Nursing to re-assess per shift as needed.* - Lights on and curtains open during day hours. - Up to chair for meals or 3x/day with lift and 2 person assist. DISCHARGE: RECOMMENDATIONS: 24 hour assist;Continued PT at next level of care Next physical therapy session: Patient will be seen 4 times per week for focus on transfers , HEP, mobility. Carmelita Weathers DPT Should this patient discharge from the hospital prior to the next physical therapy treatmen t, this note shall serve as the discharge summary. lan of Care - Maria Elena Alcantar RN - 09/11/2019 2:23 PM PDT Problem: General Plan of Care (Adult) Goal: Individualization/Patient-Specific Goal: devante bath, bowel care, increase activities, and prevention of skin breakdown Outcome: Devante bath done. Attempt to BSC without success, able to transfer self to BSC but need transfer back to bed by ceiling lift with 2 persons assisted. Recliner chair ordered and Diane agreed to get OOB to chair more often. Able to turns independently in bed but need reminder to move/turns. Electronically signed by [facility] Shania Alcantar RN at 09/11/2019 2:23 PM PDTHandoff - Maribel Alcantar RN - 09/11/2019 2:22 PM PDTNursing Handoff Patient Daily Goal: order breakfast. (09/11/19904) Patient Specific Preferences: Cluster care (09/04/191945) [facility] IP NURSE HANDOFF: Cespedes hospital course events: 09/04 Sp Left leg irrigation and debrid ement. Left leg fasciotomy. Left leg removal of hardware. Placement of wound vac. Hx; 69 y.o. M w/ PMH AFIB RVR , etoh cirrhosis, left ankle fusion 3 years ago who presents with exposed screw on the dorsum of the left foot with overlying LLE cellulitis, left heel p ressure ulcer, left leg fluctuance as well as gross edema and purulent drainage from screw e xposure site (per MD note). 09-04-19 S/p LLE hardware removal, I&D. 09/06 s/p fasciotomy closure. SAFETY Patient/Family Target: Diane will call for assist and use call light Progress to Target: Improving As evidenced by: Diane uses call light appropriately. Does not attempt to get OOB on own. Uses urinal at be dside. Unsteady on R leg. Need lift to help with OOB to BSC. COMFORT/ANXIETY/BEHAVIOR Patient/Family Target: Diane's pain will be adequately controlled Progress to Target: Improving As evidenced by: Denied pain. As evidenced by: Devante bath done and IS use. Dressing change this am. RESTORATIVE MEASURES/SELF-MANAGEMENT Patient/Family Target: Diane will be able to get oob independently Diane will have normal BM As evidenced by: Attempt to BSC for BM without success. Able to transfer self to BSC but need transfer ba ck to bed by ceiling lift with 2 persons assisted. Recliner chair ordered and Diane agreed t o get OOB to chair more often. Able to turns independently in bed but need reminder to move/turns. NURSING ASSESSMENT & RECOMMENDATIONS FORWARD Nursing Assessment of Patient Stability Risk: Moderately stable Recommendations Forward: - Continue to elevate left leg. Wear rooke boot in bed - Next dressing change 09/13. - PICC - Assess pain and medicate PRN -Bowel care. -OOB to chair, Encourage foot pump exercise while in bed and PT/OT to follow. Barriers to discharge: fci IV antibiotics, increased mobility Electronically signed by [facility] Shania Alcantar RN at 09/11/2019 2:23 PM PDTHandoff - Xavier Garcia RN - 09/11/2019 4:43 AM PDTNursing Handoff Patient Daily Goal: get a bath (09/07/19 0836) Patient Specific Preferences: Cluster care (09/04/191945) [facility] IP NURSE HANDOFF: Cespedes hospital course events: 09/04 Sp Left leg irrigation and debrid ement. Left leg fasciotomy. Left leg removal of hardware. Placement of wound vac. Hx; 69 y.o. M w/ PMH AFIB RVR , etoh cirrhosis, left ankle fusion 3 years ago who presents with exposed screw on the dorsum of the left foot with overlying LLE cellulitis, left heel p ressure ulcer, left leg fluctuance as well as gross edema and purulent drainage from screw e xposure site (per MD note). 09-04-19 S/p LLE hardware removal, I&D. 09/06 s/p fasciotomy closure. SAFETY Patient/Family Target: Diane will call for assist and use call light Progress to Target: Improving As evidenced by: Diane uses call light appropriately. Does not attempt to get OOB on own. Uses urinal at be dside. COMFORT/ANXIETY/BEHAVIOR Patient/Family Target: Diane's pain will be adequately controlled Progress to Target: Improving As evidenced by: Pt c/o baseline 3/10 neuropathy pain throughout shift. He received scheduled Tylenol and Gabapentin, which was effective in controlling pain. He did not require administration of an y PRN pain medication. NURSING ASSESSMENT & RECOMMENDATIONS FORWARD Nursing Assessment of Patient Stability Risk: Moderately stable Recommendations Forward: - Continue to elevate left leg. Wear rooke boot in bed - Next dressing change . Wet to dry - PICC - Assess pain and medicate PRN - Encourage fluids when awake, monitor urinary output Barriers to discharge: manager terminal IV antibiotics, increased mobility andoff - Sheeba Oden RN - 09/11/2019 12:14 AM PDTNursing Handoff Patient Daily Goal: get a bath (09/07/19 5613) Patient Specific Preferences: Cluster care (09/04/19 2876) [facility] IP NURSE HANDOFF: Cespedes hospital course events: 09/04 Sp Left leg irrigation and debrid ement. Left leg fasciotomy. Left leg removal of hardware. Placement of wound vac. Hx; 69 y.o. M w/ PMH AFIB RVR , etoh cirrhosis, left ankle fusion 3 years ago who presents with exposed screw on the dorsum of the left foot with overlying LLE cellulitis, left heel p ressure ulcer, left leg fluctuance as well as gross edema and purulent drainage from screw e xposure site (per MD note). 09-04-19 S/p LLE hardware removal, I&D. 09/06 s/p fasciotomy closure. SAFETY Patient/Family Target: Diane will call for assist and use call light Progress to Target: Improving As evidenced by: Calls appropriately, alert and oriented, urinal within reach and call light within reach, remained in bed this shift. No impulsive behaviors noted COMFORT/ANXIETY/BEHAVIOR Patient/Family Target: Debbies pain will be adequately controlled Progress to Target: Improving As evidenced by: Pt c/o baseline 3/10 neuropathy pain throughout shift. He received scheduled Tylenol and Gabapentin, which was effective in controlling pain. He did not require administration of an y PRN pain medication. NURSING ASSESSMENT & RECOMMENDATIONS FORWARD Nursing Assessment of Patient Stability Risk: Moderately stable Recommendations Forward: - Continue to elevate left leg. Wear rooke boot in bed - Next dressing change . Wet to dry - PICC - Assess pain and medicate PRN - Encourage fluids when awake, monitor urinary output Barriers to discharge: PICC placement, fci IV antibiotic use, increased mobility andoff - Lani Briggs RN - 09/10/2019 4:50 PM PDTNursing Handoff Patient Daily Goal: get a bath (09/07/19 3836) Patient Specific Preferences: Cluster care (09/04/19 1946) [facility] IP NURSE HANDOFF: Cespedes hospital course events: 09/04 Sp Left leg irrigation and debrid ement. Left leg fasciotomy. Left leg removal of hardware. Placement of wound vac. Hx; 69 y.o. M w/ PMH AFIB RVR , etoh cirrhosis, left ankle fusion 3 years ago who presents with exposed screw on the dorsum of the left foot with overlying LLE cellulitis, left heel p ressure ulcer, left leg fluctuance as well as gross edema and purulent drainage from screw e xposure site (per MD note). 09-04-19 S/p LLE hardware removal, I&D. 09/06 s/p fasciotomy closure. SAFETY Patient/Family Target: Diane will remain free and safe from falls Progress to Target: No Change As evidenced by: Calls appropriately, alert and oriented, urinal within reach and call light within reach, remained in bed this shift. No impulsive behaviors noted COMFORT/ANXIETY/BEHAVIOR Patient/Family Target: Diane's pain will be adequately controlled Progress to Target: Improving As evidenced by: Pt c/o baseline 01/19 neuropathy pain throughout shift. He received scheduled Tylenol and Gabapentin, which was effective in controlling pain. He did not require administration of an y PRN pain medication. NURSING ASSESSMENT & RECOMMENDATIONS FORWARD Nursing Assessment of Patient Stability Risk: Moderately stable Recommendations Forward: - Continue to elevate left leg. Wear rooke boot in bed - Next dressing change . Wet to dry - PICC placed today - Assess pain and medicate PRN - Encourage fluids when awake, monitor urinary output Barriers to discharge: PICC placement, manager terminal IV antibiotic use, increased mobility lan of Mavis - Lakshmi Damon, RD - 09/10/2019 4:06 PM PDTFormatting of this note might be different from the origin al. Problem: Nutrition Interventions Intervention: Food and nutrient distribution type or amount Patient reports good appetite. He states he is skipping breakfast but eating a large lunch and dinner. Today he had all of an enchilada, a salad with ranch dressing, milk and an Ens ure Compact. He disliked the [place] protein shake he tried. He is willing to continue Ens ure Compact at lunch and dinner. Patient is requesting chocolate Haagen Dazs as a snack margarita y. Rec: - Continue Regular diet - Continue Ensure Compact with lunch and dinner - Encourage regular meals, especially including high protein foods such as eggs, meat, fis h and dairy products - Will provide a snack of 2 chocolate Haagen Dazs ice creams daily - Consider Nain's probiotic yogurt of Culturelle - Please get a wt if possible - Bowel care prn Nutrition Dx: Increased nutrient needs 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 Following, Jane Damon, MS, RD, LD Pager #[phone] Note: Admitting Dx: Diane An is a 69 y.o. male with a fib on digoxin, etoh cirrhosis,etoh use disorder in remission,left ankle fusion 3 years ago presenting with exposed hardward , s/p four-compartment fasciotomy, debridement, removal of hardware. Diet: Regular PO Intake: 100% of meals Fluid Intake: 1280 ml so far today Oral Supplements: Ensure Compact with breakfast and lunch Pertinent Meds: prilosec, zosyn, thiamine, vancomycin Labs incl: Prealb 6.0 (09/03) GI: Loose BM x 2 (09/09) Drain: 100 ml Skin: four compartment fasciotomy on LLE I/O: net - 1.0 L since admit. Lab Results Component Value Date A1C 5.2 09/03/2019 Ht: 72" Admit wt: 93.4 kg (bed wt 09/04) BMI: 27.9 kg/m2 IBW: 80.9 kg Wt hx: 81.6 kg (10/08/18) Estimated Nutrition Needs: 5316-9446 kcals (23-27 kcal/kg), 112-137 gm protein (1.2-1.5 gm/ kg) andoff - Isa Quiroga RN - 09/10/2019 1:43 AM PDTNursing Handoff Patient Daily Goal: get a bath (09/07/19 5318) Patient Specific Preferences: Cluster care (09/04/19 5676) [facility] IP NURSE HANDOFF: Cespedes hospital course events: 09/04 Sp Left leg irrigation and debrid ement. Left leg fasciotomy. Left leg removal of hardware. Placement of wound vac. Hx; 69 y.o. M w/ PMH AFIB RVR , etoh cirrhosis, left ankle fusion 3 years ago who presents with exposed screw on the dorsum of the left foot with overlying LLE cellulitis, left heel p ressure ulcer, left leg fluctuance as well as gross edema and purulent drainage from screw e xposure site (per MD note). 09-04-19 S/p LLE hardware removal, I&D. 09/06 s/p fasciotomy closure. SAFETY Patient/Family Target: Patient will remain free and safe from falls Progress to Target: No Change As evidenced by: Calls appropriately, alert and oriented, urinal within reach and call light within reach, remained in bed this shift COMFORT/ANXIETY/BEHAVIOR Patient/Family Target: Patient will report pain less than 5 on a 0-10 pain scale Progress to Target: Improving As evidenced by: Pt complained of baseline neuropathy pain. Getting scheduled tylenol and gabapentin. Has PRN pain meds. Did not need during shift. RESTORATIVE MEASURES/SELF-MANAGEMENT Patient/Family Target: Diane will sleep for 6 or more hours Progress to Target: No Change As evidenced by: Diane slept between 4-6 hours, he reports he has been having trouble sleeping now that his mind is more clear and he has more clarity on things. He reports that he has a lot to think about. That being said he does seem to have a positive demeanor overall in regards to his s ituation. NURSING ASSESSMENT & RECOMMENDATIONS FORWARD Nursing Assessment of Patient Stability Risk: Moderately stable Recommendations Forward: -continue to elevate left leg. Wear rooke boot in bed -Next dressing change . Wet to dry -PICC placed today -Assess pain and medicate PRN -encourage fluids when awake, monitor urinary output Barriers to discharge: PICC placement, fci IV antibiotic use, increased mobility andoff - Blair Brewer RN - 09/09/2019 5:46 PM PDTNursing Handoff Patient Daily Goal: get a bath (09/07/19 2475) Patient Specific Preferences: Cluster care (09/04/19 8224) [facility] IP NURSE HANDOFF: Cespedes hospital course events: 09/04 Sp Left leg irrigation and debrid ement. Left leg fasciotomy. Left leg removal of hardware. Placement of wound vac. Hx; 69 y.o. M w/ PMH AFIB RVR , etoh cirrhosis, left ankle fusion 3 years ago who presents with exposed screw on the dorsum of the left foot with overlying LLE cellulitis, left heel p ressure ulcer, left leg fluctuance as well as gross edema and purulent drainage from screw e xposure site (per MD note). 09-04-19 S/p LLE hardware removal, I&D. 09/06 s/p fasciotomy closure. SAFETY Patient/Family Target: Patient will remain free and safe from falls Progress to Target: No Change As evidenced by: Calls appropriately, alert and oriented, urinal within reach and call light within reach, remained in bed this shift COMFORT/ANXIETY/BEHAVIOR Patient/Family Target: Patient will report pain less than 5 on a 0-10 pain scale Progress to Target: Improving As evidenced by: Pt complained of baseline neuropathy pain. Getting scheduled tylenol and gabapentin. Has PRN pain meds. Did not need during shift. [employer] Patient/Family Target: Patient encouraged to wiggle toes on left foot to promote circulation and assess use As evidenced by: Patient able to demonstrate movement of toes to RN during assessments. NURSING ASSESSMENT & RECOMMENDATIONS FORWARD Nursing Assessment of Patient Stability Risk: Moderately stable Recommendations Forward: -continue to elevate left leg. Wear rooke boot in bed -Next dressing change . Wet to dry -PICC placed today. Start IV vanco tonight -Assess pain and medicate PRN -encourage fluids when awake, monitor urinary output Barriers to discharge: PICC placement, fci IV antibiotic use, increased mobility lan of Care - Manda Reich, PT - 09/09/2019 10:01 AM PDTFormatting of this note might be different f rom the original. Physical Therapy Treatment Note 09/09/2019 10:02 AM Hospital day 6 Patient seen on 4A Brief Hospital Course: 69 yo male with hx of etoh cirrhosis, left ankle fusion 3 years ago presenting with exposed hardware, now s/p four-compartment fasciotomy, debridement, removal of hardware,followed by repeat debridement and fasciotomy closure.(Dr. 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 He says , "I'd like to work with you. I love physical therapy." Pain: Patient does not currently report any pain Objective: Patient encountered in bed left leg elevated. Patient was educated on walker use and transfer during stand pivot transfer with non weight bearing left lower extremity. Patient educated on weight bearing precautions Right lower extremity strength screen - Ankle and knee 5/5, hip flexion 4/5. Left lower extremity - patient able to flex hip and extend knee in supine Brief warm up of heel slides x 10 and ankle pumps x 10 right side, short arc quad x 10 left side. Donned posterior foot splint Patient transferred from supine to sitting at edge of bed with minimum assistance at left l ower extremity and cues for lower extremity management Scoot to edge of bed with cues for hand placement on rails and weight shifts Patient attempted to stand x 3 with moderate to max assistance with non weight bearing on l eft lower extremity. Cues for foot placement, hand placement and sequencing. Blocked right l ower extremity second and third attempts due to right foot sliding on first attempt. Patient able to elevate buttocks 6-8 inches off bed but unable to achieve full standing position. Patient left seated at edge of bed with left lower extremity elevated at bed per patient re quest to remain in seated position [facility] BASIC MOBILITY Difficulty turning over in bed 4 - None - Modified Independent/Independent Difficulty sitting/standing from chair w/ arms 1 [...] to do/total assistance - Total/Dependen t Assist [facility] Basic Mobility Total Score 11 *Note: activity was not directly observed and scoring is based on skills and deficits demon strated today 1 - Unable to do/total assistance = Total/Dependent Assist 2 - A lot = Maximum/Moderate Assistance 3 - A little = Minimal/Contact Guard Assist/Supervision 4 None = Modified independent/Independent Interpretation of [facility] Short Form - Basic Mobility: CMS [...] limited, or restricted Treatment provided this date: therapeutic exercise, transfer training, patient education Ended session: Patient seated at edge of bed, call light within reach, handoff to nurse Log an following session Assessment: Diane responded well to physical therapy treatment session saying, "it feels goo d to get up and move." Diane would benefit from being able to get into a chair in order to p revent further deconditioning. Next visit consider trying slide board and wheelchair with el evating leg rest in order to facilitate a sitting position for an extended period of time. P atient would also benefit from room with ceiling lift if available in order to facilitate in creased out of bed mobility with nursing staff. See care plan for goals. ACTIVITY PLAN: *Nursing to re-assess per shift as needed.* - Lights on and curtains open during day hours. - Up to edge of bed with 1 person assist for meals or 3x/day DISCHARGE RECOMMENDATIONS: 24 hour assist;Continued PT at next level of care DME: defer to facility RN Blair consulted re: recommendations PLAN: Therapeutic exercise, transfer to chair Brittazeina Raza Time in: 905 Time out: 929 This patient was seen for a total of 24 minutes of direct one-on-one skilled physical thera py which included 10 minutes of therapeutic exercise and 14 minutes of therapeutic activity. Should this patient discharge from the hospital prior to the next physical therapy treatmen t, this note shall serve as the discharge summary. Gradual progress toward goal Patient will perform bed mobility independently Patient will perform supine to edge of bed independently Patient will be independent with lower extremity strength training exercises I was present and in the room for the entire session. The student participated in the [facility] of services while I directed the service, made the skilled judgment, and was responsible for the assessment and treatment. I verify that I directed the plan of care and was immediately available for assistance as n ecessary both during the session and documentation. Manda Arroyo PT, DPT Physical Therapist Pager #[phone] signed by Manda Arroyo PT at 09/09/2019 1:31 PM Melinda Kim RN - 09/09/2019 4:23 AM PDTNursing Handoff Patient Daily Goal: get a bath (09/07/19 3883) Patient Specific Preferences: Cluster care (09/04/19 9016) [facility] IP NURSE HANDOFF: Cespedes hospital course events: 09/04 Sp Left leg irrigation and debrid ement. Left leg fasciotomy. Left leg removal of hardware. Placement of wound vac. Hx; 69 y.o. M w/ PMH AFIB RVR , etoh cirrhosis, left ankle fusion 3 years ago who presents with exposed screw on the dorsum of the left foot with overlying LLE cellulitis, left heel p ressure ulcer, left leg fluctuance as well as gross edema and purulent drainage from screw e xposure site (per MD note). 09-04-19 S/p LLE hardware removal, I&D. 09/06 s/p fasciotomy closure. SAFETY Patient/Family Target: Patient will remain free and safe from falls Progress to Target: No Change As evidenced by: Calls appropriately, alert and oriented, urinal within reach and call light within reach, remained in bed this shift COMFORT/ANXIETY/BEHAVIOR Patient/Family Target: Patient will report pain less than 5 on a 0-10 pain scale Progress to Target: Improving As evidenced by: Pt complained of baseline neuropathy pain, treated with gabapentin, pt is resting comfort ably throughout the night. HEALTH PROMOTION Patient/Family Target: Patient encouraged to wiggle toes on left foot to promote circulation and assess use As evidenced by: Patient able to demonstrate movement of toes to RN during assessments. NURSING ASSESSMENT & RECOMMENDATIONS FORWARD Nursing Assessment of Patient Stability Risk: Moderately stable Recommendations Forward: -continue to elevate left leg and wear boot -anticipate placement of PICC for 6 week course of IV vanco per MD note -Assess pain and medicate PRN -encourage fluids when awake, monitor urinary output -last BM 09/08 with aid of suppository, no BM this shift Barriers to discharge: PICC placement, fci IV antibiotic use, increased mobility andoff - Alvino Brewer RN - 09/08/2019 5:50 PM PDTNursing Handoff Patient Daily Goal: get a bath (09/07/19 0836) Patient Specific Preferences: Cluster care (09/04/19 1946) [facility] IP NURSE HANDOFF: Cespedes hospital course events: 09/04 Sp Left leg irrigation and debrid ement. Left leg fasciotomy. Left leg removal of hardware. Left leg placement of antibiotic n ail. Placement of wound vac. Hx; 69 y.o. M w/ PMH AFIB RVR , etoh cirrhosis, left ankle fusion 3 years ago who presents with exposed screw on the dorsum of the left foot with overlying LLE cellulitis, left heel p ressure ulcer, left leg fluctuance as well as gross edema and purulent drainage from screw e xposure site (per MD note). 09-04-19 S/p LLE hardware removal, I&D. 09/06 s/p fasciotomy closure. SAFETY Patient/Family Target: Diane will not have a fall. Progress to Target: Improving As evidenced by: Diane has been calling appropriately. Urinal within reach and call light within reach. Has not been OOB yet. Working with Pt. COMFORT/ANXIETY/BEHAVIOR Patient/Family Target: Pain will be well-managed Progress to Target: No Change As evidenced by: Denied pain during shift. Taking scheduled gabapentin and tylenol. Has PRN oxycodone if n eeded. NURSING ASSESSMENT & RECOMMENDATIONS FORWARD Nursing Assessment of Patient Stability Risk: Moderately stable Recommendations Forward: -L leg NWB, elevated, posterior black foot splint -PIV x 1. -Getting IV vanco. Will need a PICC. Six week course -Assess pain and medicate PRN - Ortho discussed possible BKA, no decision made yet - A-fib at baseline -positive cultures for Lt ankle tissue. Barriers to discharge: IV abx plan, may need PICC placement andoff - Sada Onofre RN - 09/07/2019 5:23 PM PDTNursing Handoff Patient Daily Goal: get a bath (09/07/19 8836) Patient Specific Preferences: Cluster care (09/04/19 1946) [facility] IP NURSE HANDOFF: Cespedes hospital course events: 09/04 Sp Left leg irrigation and debrid ement. Left leg fasciotomy. Left leg removal of hardware. Left leg placement of antibiotic n ail. Placement of wound vac. Hx; 69 y.o. M w/ PMH AFIB RVR , etoh cirrhosis, left ankle fusion 3 years ago who presents with exposed screw on the dorsum of the left foot with overlying LLE cellulitis, left heel p ressure ulcer, left leg fluctuance as well as gross edema and purulent drainage from screw e xposure site (per MD note). 09-04-19 S/p LLE hardware removal, I&D. 09/06 s/p fasciotomy closure. SAFETY Patient/Family Target: Diane will not have a fall. Progress to Target: Improving As evidenced by: Diane has been calling appropriately. Urinal within reach and call light within reach. Has not been OOB yet, sat at EOB with PT on 09/06. COMFORT/ANXIETY/BEHAVIOR Patient/Family Target: Pain will be well-managed Progress to Target: No Change As evidenced by: Denied pain, taking scheduled gabapentin and tylenol NURSING ASSESSMENT & RECOMMENDATIONS FORWARD Nursing Assessment of Patient Stability Risk: Moderately stable Recommendations Forward: -L leg NWB, elevated, posterior black foot splint -Diabetic diet. -PIV x 1 -Assess pain and medicate PRN - Ortho discussed possible BKA, no decision made yet Barriers to discharge: IV abx plan, may need PICC placement andoff - Gilbert Alcantar co Shaina, RN - 09/06/2019 6:35 PM PDTNursing Handoff Patient Daily Goal: Remain free from pain to facilitate sleep (09/04/191945) Patient Specific Preferences: Cluster care (09/04/191945) [facility] IP NURSE HANDOFF: Cespedes hospital course events: 09/04 Sp Left leg irrigation and debrid ement. Left leg fasciotomy. Left leg removal of hardware. Left leg placement of antibiotic n ail. Placement of wound vac. Hx; 69 y.o. M w/ PMH AFIB RVR , etoh cirrhosis, left ankle fusion 3 years ago who presents with exposed screw on the dorsum of the left foot with overlying LLE cellulitis, left heel p ressure ulcer, left leg fluctuance as well as gross edema and purulent drainage from screw e xposure site (per MD note). 09-04-19 S/p LLE hardware removal, I&D. 09/06 s/p fasciotomy closure. SAFETY Patient/Family Target: Diane will not have a fall. Progress to Target: Improving As evidenced by: Diane has been calling appropriately. Urinal within reach and call light within reach. COMFORT/ANXIETY/BEHAVIOR Patient/Family Target: Pain will be well-managed to a level of 1/10. Progress to Target: No Change As evidenced by: Denied pain all night. RESTORATIVE MEASURES/SELF-MANAGEMENT Patient/Family Target: Diane can void spontaneously As evidenced by: Diane back from pacu with pvr of more than 500ml. Attempt to void without success. Straig ht cath x1 with 550ml out around 1700. NURSING ASSESSMENT & RECOMMENDATIONS FORWARD Nursing Assessment of Patient Stability Risk: Moderately stable Recommendations Forward: -L leg NWB, elevated, posterior black foot splint -Diabetic diet. -PIV x 2 - on IV Antibiotics -Assess pain and medicate PRN -Monitor void. Next due to void around 10-11pm. Barriers to discharge: Planned OR today 09-06-19 Electronically signed by [facility] Shania Alcantar RN at 09/06/2019 6:35 PM PDTOp Note - Vincent Cochran nd, MD - 09/06/2019 11:35 AM PDTFormatting of this note might be different from the origin al. [facility] [place] Department of Orthopaedics & Rehabilitation OPERATIVE NOTE Patient: /Age: MRN: CSN: Date: Admission Date: Hospital Day: Diane An 1950 69 y.o. [id number] 09/06/2019 09/03/2019 3 Attending Surgeon: Garth Cochran MD Video News Editor(s): 1. Arnold Taylor MD Preoperative Diagnosis(es): 1. 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 2. Deep infection, left calf status post four compartment fasciotomies 4. Cirrhosis. 5. Lower extremity neuropathy. 6. Hypertension. Postoperative Diagnosis(es): 1. Same Procedure(s) Performed: 1. Irrigation and excisional debridement fasciotomy sites left ankl e, medial site 6 centimeters by 32 centimeters. Lateral site 3 centimeters by 28 centimeter s. 2. Irrigation and excisional debridement plantar foot wound 2 centimeters by 4 centimeters 3. Closure fasciotomy site x2 Anesthesia Type: General Estimated Blood Loss: 200 mL IV Fluids: Please see the anesthesia record Tourniquet: None used Complications: None Apparent Orthopaedic Implants: 1. Retained antibiotic delivery device (retrograde antibiotics impreg nated nail placed by Dr. Ansari). Specimens: 1. None Drains: None OR Disposition: Transferred from the OR in stable condition. PACU Disposition: Admit to primary service, ortho consulting, and transfer to the hospital [facility], acute care INDICATIONS: This patient had recently undergone hardware removal of an infected hindfoot fusion device for a left ankle infected non-union with Dr. Ansari and at that time there was an antibiotic delivery device placed and 2 incision 4 compartment fasciotomy done with wound vac placed, he returns today for an irrigation and debridement and wound closure of the fasciotomy sites . A discussion in the form of informed consent was had with the patient prior to surgery exp laining as clearly as possible the potential risks and benefits of surgery. The risks includ e but are not limited to nonhealing of the tissues and need for reoperation, nerve injury, b leeding or blood loss requiring transfusion, hematoma or complications of anticoagulation us ed to prevent blood clots, infection requiring further surgery or removal of implants, massi ve infection requiring amputation, or continued or worse pain. We also discussed worsening of chronic medical conditions and life-threatening complication s including stroke, clot, heart attack, pulmonary embolism and related to the surgery or anesthesia, or other factors. The patient understands these risks and benefits of surgery and wishes to proceed, and has signed consent willfully. PROCEDURE: Consent was verified and the surgical site was signed in the preoperative holding area. The patient was brought to the operating room. Anesthesia was induced. The patient was position ed we then removed the tissue thermoforming operator device and the wound vac, all giselle were removed an d we performed out trauma prep with betadine wet prep and a hibiclens wet prep. Then the le g was sterilely prepped and draped in the normal fashion. Surgical time out, verifying the p atient's identity, signed operative site, surgical plan, patient position, administration of preoperative antibiotics and the availability of implants was performed. We started with our debridement, using currettes, rongeurs we debrided any non-viable tissu e from the skin, muscle and fascia in the medial, lateral and dorsal foot wounds. We then p roceeded with our hibiclens wash. Following this we irrigated all the wounds with 9 liters of NS through cysto tubing. We then proceeded to close the dorsal foot wound with 3-0 nylon in vertical mattress fashio n, We closed the lateral fasciotomy site with 2-0 nylon also using mattress sutures. The medi al fasciotomy site we placed multiple retention sutures to bring the skin together then clos ed between with 2-0 nylon vertical mattress suture. There was some tension on this repair a nd the skin quality is poor, with dense woody skin and subcutaneous tissue, however we felt that with his co-morbid ites he would not be a candidate for skin graft coverage so one oppo rtunity at closure is indicated. If this fails to heal he is looking at a below-knee amputa tion which he may be headed for anyway's. Sterile dressings were applied followed by a posterior foot splint. The final instrument, needle and sponge counts were correct. The patient was awakened from anesthesia and taken to the PACU. The patient arrived in PACU in stable condition with no ap parent complications. I was scrubbed and present for the entirety of the procedure as described in the note for t his patient Garth Cochran MD Patient: Diane An : 1950 Date of procedure: 09/03/2019 - 09/06/2019 Location: [facility] Surgeon(s) and Role: * Garth Cochran MD - Primary Staff: Perfume Maker: Naeem Lane RN Scrub: ST Luke Scrub Relief: ST Cabrera Pre Op Dx left foot infection Post Op Dx: Same Procedure: See above Anesthesia: General Findings/Complications: None Estimated Blood Loss: 200 mL Drains: * No LDAs found * Specimens None Implants/Grafts None Procedure Description: Garth Cochran MD lan of Care - Wild Aguayos, PT - 09/06/2019 9:24 AM PDTFormatting of this note might be different from the or iginal. Problem: PT Goals- Adult Goal: Functional Mobility Goal Description Patient will perform bed mobility independently Patient will perform supine to edge of bed independently Patient will be independent with lower extremity strength training exercises Outcome: Gradual progress toward goal Physical Therapy Evaluation [id number] [facility] Day: 3 Date of : 1950 Start of care: 09/06/2019 Attending Practitioner: Tiffanie Huerta MD Primary/Referral Diagnosis/ICD-9: T84.7XXA Infection of lower extremity associated with ney dware ([facility]) M79.89 Necrotizing soft tissue infection L02.91 Abscess Insurance: Payor: MEDICARE / Plan: MEDICARE A & B / Product Type: Medicare / Service period from: 09/06/2019 to 12/05/2019 Time in: 0910 Time out: 0950 Patient was seen for a total of 40 minutes of direct one on one skilled physical therapy wh ich included evaluation and 10 minutes of therapeutic activities Patient seen on 4A Others Present for PT session besides patient and therapist: RN, end of session Consulted/Discussed patient's care with: RN Brief Hospital Course: Diagnosis(es): 1. Infected hardware right ankle Orthopaedic Procedure(s) & Date(s): 09/04/19: 4-compartment fasciotomy right leg, removal o f hardware right leg, I&D right leg, placement of antibiotic nail, wound vac placement As per MD notes/09/06/19 Relevant Precautions: Fall risk,left lower extremity - non weight bearing,maintain posteri or foot splint Indication for PT Evaluation: Decline in functional mobility No past medical history on file. No past surgical history on file. Subjective:Patient agreed to work with PT, "I haven't been out of bed since days.Feels good to be sitting up." Living Environment: Patient lives by himself in an apartment with 13 steps to enter,hand ra iling -left side.Limited assistance at home, has friends-can help with cooking and visit him on some days. Bathroom Set-up: tub shower; no shower chair,uses wipes for a shower Prior Level of Function: Mobility: independent with bed mobility,transfers,ambulation- four wheeled walker-reports unable to stand for long duration,stairs-railing support-mostly stays indoors,does not drive , cooking-meals on wheels,has help for cleaning and grocery shopping,was in a skilled nursin g facility past 1-2 months Equipment at home: four wheeled walker, Fall history - 5-6 falls past 6 months, knee buckling Patient / Family Goal: get stronger and walk better Communication/Barriers: [place]/ fatigue Pain: 4/10 left ankle pain Vital Signs: stable pre and post session,asymptoamtic Cognitive Screen Level of alertness: awake and alert Orientation: OX4 Quality of responses: appropriate to open end questions Command following: appropriate to multi step commands Judgment / safety awareness: intact Physical Assessment ROM: within functional limits bilateral lower extremity Strength: 3/5 bilateral lower extremity Edema: left lower extremity ,bilateral feet Skin Integrity: impaired- left foot Posture: within functional limits Neurological Function Sensation: impaired- bilateral hand and feet-neuropathy at baseline Muscle Tone: not tested Proprioception: impaired- bilateral hands and feet Gross Motor: within functional limits- bed mobility, supine to edge of bed , other transfe rs,ambulation not tested today- refused further mobility Fine Motor: within functional limits Balance: Sitting static: normal,independent Sitting dynamic: normal,independent Standing static: not tested,refused further functional mobility,was tired Standing dynamic: not tested Functional Balance Grades Normal Static: Patient able to maintain steady balance without handhold support Dynamic: Patient accepts maximal challenge and can shift weight easily within full range in all directions Good Static: Patient able to maintain balance without handhold support, limited postural sw ay Dynamic: Patient accepts moderate challenge; able to maintain balance while picking object off floor Fair Static: Patient able to maintain balance with handhold support; may require occasional minimal assistance Dynamic: Patient accepts minimal challenge; able to maintain balance while turning head/imani nk Poor Static: Patient requires handhold support and moderate to maximal assistance to mainta in position Dynamic: Patient unable to accept challenge or move without loss of balance O Henri Kay and Nikos White (2007). Physical rehabilitation: assessment and treatme nt (5th ed.). [place]: Teja Brizuela [facility]. p.254 Mobility & Transfers: Supine to sit: standby assist Sit to supine: not tested , left sitting edge of bed-RN present in room Sit to stand/Stand to sit: not tested, refused further functional mobility,was tired Scoot: not tested Stand pivot transfer: not tested Gait: not tested Outcome Measure: [facility] BASIC MOBILITY Difficulty turning over in bed 4 - None - Modified Independent/Independent Difficulty sitting/standing from chair w/ arms 1 [...] to do/total assistance - Total/Dependen t Assist [facility] Basic Mobility Total Score 11 Interpretation of [facility] Short Form - Basic Mobility: CMS [...] m obility and may be an underestimate Treatment and education provided this date: orders received,chart reviewed,patient was eval uated,DME screening done,patient education on lower extremity strength training exercises,NW B precautions -left lower extremity,importance of out of bed activities Patient received supine in bed, left lower extremity- posterior foot splint on-throughout s ession, elevated on wedge, In bed, lower extremity strength training exercises- ankle toe movements(not performed on l eft),heel slides, hip flexion, hip abduction, isometric quads andgleuts-10 reps each, active range of motion ,bilateral lower extremity Supine to edge of bed -standby assist, verbal cues for correct hand and feet placement,stat ic sitting edge of bed - independent, edge of bed - Patient performed bilateral lower extremity -hip flexion,long arc quads and a nkle toe movements(not performed on left side) -10 reps each- active range of motion Patient refused further functional mobility, wanted to sit at edge of bed, reported has inc reased itch on his back, update RN for his body cream, RN updated, present in room Ended session: Patient left edge of bed sitting- left knee elevated- positioned on chair, w ith call campo within reach and RN updated, present in room ASSESSMENT: Diane An is a 69 year old admitted on 09/03/2019 with prior level of fun ction independent with bed mobility,transfers,ambulation- four wheeled walker-reports unable to stand for long duration,stairs-railing support-mostly stays indoors. Patient presents he re with assistance for transfers, anticipate- assistance for sit to stand and ambulation- torre s left lower extremity -non weight bearing.Patient has reduced strength bilateral lower extr emity ,history of falls in past 6 months, reports knee buckling, unable to stand up for long duration.Patient has reduced activity tolerance to perform all activities,does better with rest breaks . Patient has impaired left foot integumentary system,impaired sensation - bilat eral upper extremity and lower extremity.Acute PT services indicated to address the above me ntioned deficits. This patient has good rehabilitation potential to achieve stated goals (see Care Plan for g oals) and requires continued rehabilitation services, given the patient's medical condition is such that the skills of a therapist are required for monitoring and adjustment of interve ntions See Care Plan for goals. Personal factors/Comorbidities; High - 3 or more personal factors. Behavior: None Learning Factors: Appears anxious/dissociated. Social Issues: Medical conditions, Housing situation impacts discharge, Transportation issu es and Multiple hospitalizations Medical Conditions Impacting Care: Multiple co-morbidities, Cardiac, Physically decondition ed, Challenged integumentary system and Orthopedic Body Systems Elements: High - 4 or more elements Body structures & functions: Pain, Range of motion, Strength, Cardiopulmonary status, Areli ce, Endurance, Motor control and Sensation Activity limitations: Impaired bed mobility, Impaired transfers, Impaired gait, Difficulty with stairs and Difficulty with activities of daily living Participation restrictions: Community activities and Bowel/bladder care. Clinical Presentation: High - Unstable: Drains/lines/tubes, Vital signs response, Pain resp onse, Ongoing surgical interventions requiring reassessment and adjustment of plan of care a nd Rapid decline of current condition leading to hospitalization Clinical decision making: High Complexity: Multiple problems requiring prioritizing interve ntions, DME requirements and Clinical coordination of care Complexity: high Diane's knowledge of disease process: Good . The patient requires services that can be safely and effectively performed only by a quali fied therapist to address the aforementioned and highlighted problems and goals. Goals discussed and agreed upon with Diane. Activity Recommendations for Nursing partners: *Nursing to re-assess per shift as needed.* - Lights on and curtains open during day hours. - Up to chair for meals or 3x/day with ceiling lift and 2 person assist. DISCHARGE RECOMMENDATIONS: 24 hour assist;Continued PT at next level of care Durable medical equipment- defer Consulted with: RN: recommendations PLAN: Physical therapy plan of care and sessions will concentrate on increasing activity t olerance, strength, balance, and functional mobility through therapeutic exercise, neuromusc ular re-education, and gait and transfer training, as well as education on precautions, safe ty, and activity recommendations specific to patient. Frequency: 4/week Duration: 1 week The above plan of care and goals were developed and reviewed with the patient. Should this patient discharge from the hospital prior to the next physical therapy treatmen t, this note shall serve as the discharge summary. andoff - Vinay Summers RN - 09/06/2019 3:55 AM PDTNursing Handoff Patient Daily Goal: Remain free from pain to facilitate sleep (09/04/191945) Patient Specific Preferences: Cluster care (09/04/191945) [facility] IP NURSE HANDOFF: Cespedes hospital course events: 09/04 Sp Left leg irrigation and debrid ement. Left leg fasciotomy. Left leg removal of hardware. Left leg placement of antibiotic n ail. Placement of wound vac. Hx; 69 y.o. M w/ PMH AFIB RVR , etoh cirrhosis, left ankle fusion 3 years ago who presents with exposed screw on the dorsum of the left foot with overlying LLE cellulitis, left heel p ressure ulcer, left leg fluctuance as well as gross edema and purulent drainage from screw e xposure site (per MD note). 09-04-19 S/p LLE hardware removal, I&D. SAFETY Patient/Family Target: Diane will not have a fall. Progress to Target: Improving As evidenced by: Diane has been calling appropriately. Urinal within reach. Not OOB yet. Call light and uri nal within reach. COMFORT/ANXIETY/BEHAVIOR Patient/Family Target: Pain will be well-managed to a level of 1/10. Progress to Target: No Change As evidenced by: Denied pain all night; slept between care. NURSING ASSESSMENT & RECOMMENDATIONS FORWARD Nursing Assessment of Patient Stability Risk: Moderately stable Recommendations Forward: -L leg NWB, elevated, posterior black foot splint; WV in place at 150mmHg -Diabetic diet. NPO today for surgery. -PIV x 2 - on IV Antibiotics -Voiding in urinal without issues, reports incontinence sometimes -Assess pain and medicate PRN Barriers to discharge: Planned OR today 09-06-19 lan of Care - Gilbert Alcantar RN - 09/05/2019 6:40 PM PDT Problem: General Plan of Care (Adult) Goal: Individualization/Patient-Specific Goal: pain control, prevention of worsen infection , promote healthy diet, and maintain skin integrity and proper suction with wound vac. Outcome: Expected progress toward goal Goal: Plan of Care Review Outcome: Expected progress toward goal andoff - Maribel Alcantar RN - 09/05/2019 6:12 PM PDTNursing Handoff Patient Daily Goal: Remain free from pain to facilitate sleep (09/04/191945) Patient Specific Preferences: Cluster care (09/04/191945) [facility] IP NURSE HANDOFF: Cespedes hospital course events: 09/04 Sp Left leg irrigation and debrid ement. Left leg fasciotomy. Left leg removal of hardware. Left leg placement of antibiotic n ail. Placement of wound vac. Hx; 69 y.o. M w/ PMH AFIB RVR , etoh cirrhosis, left ankle fusion 3 years ago who presents with exposed screw on the dorsum of the left foot with overlying LLE cellulitis, left heel p ressure ulcer, left leg fluctuance as well as gross edema and purulent drainage from screw e xposure site (per MD note). 09-04-19 S/p LLE hardware removal, I&D. SAFETY Patient/Family Target: Diane will not have a fall. Progress to Target: Improving As evidenced by: Diane has been calling appropriately when he needs something. Urinal within reach. He has not been out of bed yet. Remind turns reposition in bed. PT order in. Call light and urinal within reach. COMFORT/ANXIETY/BEHAVIOR Patient/Family Target: Pain will be well-managed to a level of 1/10. Progress to Target: No Change As evidenced by: Adequate pain control with schedule pain med. HYGIENE/INFECTION Patient/Family Target: Diane will not develop infection As evidenced by: No spike of T; wound vac intact. On vanco and zosyn. Tissue cx back with G+ cocci. New piv NURSING ASSESSMENT & RECOMMENDATIONS FORWARD Nursing Assessment of Patient Stability Risk: Moderately stable Recommendations Forward: -L leg NWB, elevated, posterior black foot splint; WV in place at 150mmHg -Diabetic diet -PIV x 2 - on IV Antibiotics -Voiding in urinal without issues, reports incontinence sometimes -Assess pain and medicate PRN -NPO tonight Barriers to discharge: Per MD note: plan for return to OR and repeat I&D, likely Sunday o r Sunday lan of Care - Jane Damon RD - 09/05/2019 3:52 PM PDTFormatting of this note might be different from the aldair ginal. Problem: Nutrition Interventions Intervention: Food and nutrient distribution type or amount Patient did not order breakfast or lunch today. Provided a Regular menu and encouraged ord ering. He has not yet tried Ensure Compact ordered as supplement but he says he has been ta aron them regularly as snacks at Rehab. Since he missed lunch, he was willing to try a [place] Od[place]a protein shake. Patient states he has been working with physical therapy and f eels he gained wt and got stronger over the past month. Discussed current increased protein needs for healing and encouraged regular meals. Patient initially thought to have DM2 but H bA1c 5.2 with CBG's well controlled. Rec: - Continue Regular diet - Continue Ensure Compact with breakfast and lunch - Will send a chocolate Odwalla protein shake for the patient to try - Encourage regular meals, especially including high protein foods such as eggs, meat, fis h and dairy products - Consider Nain's probiotic yogurt of Culturelle - Bowel care prn Nutrition Dx: Increased nutrient needs 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 Following, Jane Damon, MS, RD, LD Pager #[phone] Note: Admitting Dx: Diane An is a 69 y.o. male with a fib on digoxin, etoh cirrhosis,etoh use disorder in remission, left ankle fusion 3 years ago presenting with exposed hardward, s/p four-compartment fasciotomy, debridement, removal of hardware. Diet: Regular PO Intake: None yet today Fluid Intake: None today Oral Supplements: Ensure Compact with breakfast and lunch Pertinent Meds: prilosec, zosyn, thiamine, vancomycin Labs incl: Prealb 6.0 (09/03) GI: Last BM (09/03) Drain: 100 ml Skin: four compartment fasciotomy on LLE I/O: net + 1.4 L since admit. Lab Results Component Value Date A1C 5.2 09/03/2019 Ht: 72" Admit wt: 93.4 kg BMI: 27.9 kg/m2 IBW: 80.9 kg Wt hx: 81.6 kg (10/08/18) Estimated Nutrition Needs: 7933-6718 kcals (23-27 kcal/kg), 112-137 gm protein (1.2-1.5 gm/ kg) andoff - Vinay Summers RN - 09/05/2019 6:55 AM PDTNursing Handoff Patient Daily Goal: Remain free from pain to facilitate sleep (09/04/191945) Patient Specific Preferences: Cluster care (09/04/191945) [facility] IP NURSE HANDOFF: Cespedes hospital course events: 09/04 Sp Left leg irrigation and debrid ement. Left leg fasciotomy. Left leg removal of hardware. Left leg placement of antibiotic n ail. Placement of wound vac. Hx; 69 y.o. M w/ PMH AFIB RVR , etoh cirrhosis, left ankle fusion 3 years ago who presents with exposed screw on the dorsum of the left foot with overlying LLE cellulitis, left heel p ressure ulcer, left leg fluctuance as well as gross edema and purulent drainage from screw e xposure site (per MD note). 09-04-19 S/p LLE hardware removal, I&D. SAFETY Patient/Family Target: Diane will not have a fall. Progress to Target: Improving As evidenced by: Diane has been calling appropriately when he needs something. Urinal within reach. He has not been out of bed yet. Call light and urinal within reach. COMFORT/ANXIETY/BEHAVIOR Patient/Family Target: Pain will be well-managed to a level of 1/10. Progress to Target: No Change As evidenced by: Denied pain all night; slept between care. NURSING ASSESSMENT & RECOMMENDATIONS FORWARD Nursing Assessment of Patient Stability Risk: Moderately stable Recommendations Forward: -L leg NWB, elevated, posterior black foot splint; WV in place at 150mmHg -Diabetic diet -PIV x 1 - on IV Antibiotics -Voiding in urinal without issues, reports incontinence sometimes -Assess pain and medicate PRN Barriers to discharge: Per MD note: plan for return to OR and repeat I&D, likely Sunday o sunday andoff - Elliott Mahajan RN - 09/04/2019 6:02 PM PDTNursing Handoff [place] IP NURSE HANDOFF: Cespedes hospital course events: 09/04 Sp Left leg irrigation and debrid ement. Left leg fasciotomy. Left leg removal of hardware. Left leg placement of antibiotic n ail. Placement of wound vac. Hx; 69 y.o. M w/ pmg AFIB RVR , etoh cirrhosis, left ankle fusion 3 years ago who presents with exposed screw on the dorsum of the left foot with overlying LLE cellulitis, left heel p ressure ulcer, left leg fluctuance as well as gross edema and purulent drainage from screw e xposure site (per MD note). SAFETY Patient/Family Target: Diane will not have a fall. Progress to Target: Improving As evidenced by: Diane has been calling appropriately when he needs something. Urinal within reach. He has not been out of bed yet. Call light and urinal within reach. COMFORT/ANXIETY/BEHAVIOR Patient/Family Target: Pain will be well-managed. Progress to Target: Improving As evidenced by: Diane has been c/o of L leg surgical pain since after surgery. PRN oxycodone and scheduled Tylenol and Gabapentin seemed to help. He also has PRN Dilaudid IV for severe pain. As evidenced by: Devante bath done this AM prior to OR. NURSING ASSESSMENT & RECOMMENDATIONS FORWARD Nursing Assessment of Patient Stability Risk: Moderately stable Recommendations Forward: -L leg NWB, elevated, posterior black foot splint; WV in place at 150mmHg -Diabetic diet -PIV x 2 - on IV Antibiotics -Voiding in urinal without issues, reports incontinence sometimes -Assess pain and medicate PRN Barriers to discharge: Per MD note: plan for return to OR and repeat I&D, likely Sunday o sunday p Note - Zak Ansari MD - 09/04/2019 4:51 PM PDTDate of Service: 09/04/2019 Attending Surgeon:Olivier Ansari MD Preoperative Diagnoses: 1.Infected hardware, right ankle. 2.Failure of fusion, right ankle. 3.Diffuse soft tissue swelling concerning for deep infection, left calf. 4.Cirrhosis. 5.Lower extremity neuropathy. 6.Hypertension. Postoperative Diagnoses: 1.Infected hardware, right ankle. 2.Failure of fusion, right ankle. 3.Diffuse soft tissue swelling concerning for deep infection, left calf. 4.Cirrhosis. 5.Lower extremity neuropathy. 6.Hypertension. Procedures Performed: 1.Four-compartment fasciotomy, left leg, with incision, irrigation and debridement, via 2 i ncisions. 2.Removal of hardware deep implant with curettage of the calcaneus and talus. 3.Incision, irrigation and debridement of a left ankle incomplete fusion. 4.Ankle fusion spanning antibiotic nail through the hindfoot. 5.Placement of an external tissue thermoforming operator, area other than breast. 6.Placement of a non-prefabricated negative pressure wound therapy device, area greater jonelle n 50 sq cm. Anesthesia: General. Estimated Blood Loss: 400 mL. Specimens: Deep tissue, left leg and bone, to Microbiology for extended spectrum and one t o Pathology, as well as the implants that were removed. Implants Placed: [employer] bone cement with gentamicin, to which 1 g of vancomycin and 1.2 g of tobramycin were added per bag used with a total of 2 bags. Complications: None. Findings: Significant edema, but no dishwater fluid or purulence in the calf. All the ney dware was removed. There was purulence at the screw sites and within the canal of the tibia . Placed an antibiotic-laden nail. Good wound vac seal at the end. Indications: Mr. An is a 69-year-old man with history of trauma to his left lower e xtremity. He ultimately underwent a hindfoot fusion nail. He now presents with several day s of an exposed screw anteriorly. He also has a plantar ulcer over the calcaneus. He is in sensate in his legs. He has extreme swelling of his calf and x-ray findings concerning for gas within the soft tissues. Overall clinically somewhat stable, but certainly indicated fo r removal of hardware and debridement. Talked with the patient at some length about the ser iousness of his condition. I am concerned about the viability of limb salvage. He is keen to keep his leg if possible. Offered him debridement, including opening up his calf to expl ore it to ensure no other foci of infection. We did talk about possible amputation today or at a later date if it were not viable. We had a full PARQ discussion, including the risk o f , damage to surrounding structures, amputation, repeat operations, and ultimately christo lure of limb salvage. Certainly we plan this as serial procedures. He expressed a good und erstanding, wished to proceed, and signed informed consent. Description Of Procedure: The patient was greeted in the preoperative holding area. Conse nt was confirmed, the side was marked. He was brought to the operating theater, surrendered to general endotracheal anesthesia. The left lower extremity had a trauma prep and then wa s prepped and draped in the usual sterile fashion. He received preoperative antibiotics jus t before an incision. A time-out was done. We marked out the incision for a below-knee amputation in case this was necessary coming do wn off the tibial tubercle by at least a handsbreadth. We then actually made the medial and lateral incisions to allow us to investigate all 4 compartments and do a fasciotomy and nestor ridement. We came sharply through skin, electrocautery through subcutaneous tissues and the n on the medial side opening the fascia of the posterior compartment. There was some signif icant edema, but no dishwater fluid or other evidence of a necrotizing fasciitis. There was no gross purulence. We then also ensured that we got into the deep posterior compartment. The muscle was not under undue stress. On the lateral side came to the fascia over the lateral compartment and then separately fou nd and opened the fascia over the anterior compartment. There was no purulence or dishwater fluid, but there was edema. The anterior compartment in particular had a lot of fatty dege neration, but no gross purulence. We debrided both of these wounds excisionally with knife, Bovie, Potter, rongeur and dissection scissors. We then turned our attention to removing the hardware. We opened up an incision over where one of the screws had come through the anterior mid-foot. We came sharply through skin and then blunt dissection through subcutaneous tissues down onto the screw. We grabbed this an d turned it counter-clockwise to advance it distally and found where it was coming through o n the plantar aspect. We were able to grasp it here and remove the screw. There was purule nce within the screw site. We took some deep cultures. We thoroughly curetted out the calc aneus from the back. We did open up the incision where the previous hindfoot nail was place d and came down onto the hindfoot nail itself. Deep cultures were taken. All the screws torre d basically dislodged and shortened in on the nail. We similarly made a small counter-incis ion and found the tip of the screw medially in the hindfoot and rotated it backwards to find where it was coming from laterally, made a small counter-incision and removed the screw. T here was also purulence in this location. I also debrided the calcaneus through this locati on. The final screw was quite difficult to feel or move. It had migrated into the mid-foot. Calista washington actually placed the jig of the hindfoot nail to check our trajectories of the screw and we re able to advance a guidewire pin and drill and then curettes to open a path to get at the screw from the medial side. Ultimately we were able to grasp it with needle drivers and slowly and methodically back it out. Once this was done we could remove the actual nail and again took deep cultures and d ebrided the calcaneus with the curettes and rongeur and Bovie and knife. We finished taking our deep cultures. We then sequentially reamed the canal up to a size of 13. At this point we finished with our debridement and left all viable tissues. We then copiou sly irrigated with more than 6 L of normal saline. It looked machine fur cleaner and the swelling in th e leg seemed to be somewhat down at this point. To provide some support, as well as local antibiotics we then constructed an antibiotic niki l. We used a ball-tip guidewire, sized it, and on the back table mixed 2 bags of antibiotic cement with gentamicin, to which a total of 2 g of vancomycin and 2.4 g of tobramycin were added. This was mixed and then formed into a cylinder around the ball-tipped guidewire. Th is was allowed to fully polymerize. We had taken biplanar fluoroscopic views in order to gu geo our removing the hardware. We then reinserted his antibiotic nail as a fusion nail thro ugh the plantar hindfoot. We checked this location on biplanar fluoroscopy and were satisfi ed. We did leave the ball-tipped guidewire portion in the distal aspect to aid in its ultim ate removal. This will allow for local antibiotic infiltration through this non-biodegradab le drug delivery implant. Looking at the wounds, we wanted to allow for serial debridements. Laterally it looked lik viviana they would ultimately be closable. We used a vessel loop and tied it and then zaki chandler stapled it in Jesus sandal fashion. Medially I was a bit more concerned about the abili ty to close this, especially if it is left open under tension for several days. I therefore elected to place a tissue thermoforming operator. This was the DermaClose device, regular size. We cayetano indigo the area of the skin. We placed the wound vac sponge down sized appropriately and stapl ed to the skin a bit, Adaptic over this. We placed a total of 6 of the giselle, held them i n place and then used the DermaClose device in a standard fashion. We placed the device merle n onto the anterior skin, which would be removed if necessary with a below-knee amputation. We placed DuoDerm down to protect the skin and a single 3-0 nylon to secure the device. It was then tensioned, which really helped in bringing together the wound and I think will hel p over the ensuing days to ensure that it does not retract to the point where he might need a split-thickness skin graft to help with closure. With all of that in place we were able to close some of the distal wounds with 3-0 nylon in vertical mattress fashion. We then protected the skin and created a somewhat complicated n egative pressure wound therapy apparatus. We placed skin bridges between the plantar ulcer which we had debrided and the medial wound which we had Adaptic over. Laterally we made the skin bridge to the anterior wound which we did not think was ready for closure. We cut lee ropriate wound vac sponges to fit, held them in place with some giselle and then used V.A.C. drape and Ioban over all of it. We connected these with a Y-connector and then to a wound vac machine where it had good suction in the green range. Satisfied, the drapes were taken down. He was put into a posterior black foot splint and e levated on a blue leg ramp. He was extubated and taken to PACU in stable condition. Postoperative Plan: He should be on broad-spectrum IV antibiotics and we will follow up on cultures. We will plan on returning to the operating room in 2 to 3 days for a repeat debr idement and possibly starting to close some of his wounds. He should be nonweightbearing an d should maximally elevate. We should also work on nutrition and sugar control. I, Olivier Ansari, was present and scrubbed for the entire procedure. Counts were correct at the end. Olivier Ansari MD KRG/MODL /[id number] signed by Olivier Ansari MD at 09/05/2019 5:43 A M Tosin Henderson RN - 09/04/2019 3:36 PM PDTMenimesh Phase I Discharge Criteria (St able For Transfer): Major deviations/events or pertinent findings of dennis-operative stay: Routine PACU stay. Mitch barnett woke up slightly Confused, took some time to clear. Now oriented x 4. Anticipated post-op needs/devices/follow up: Education, pain control. * No Diagnosis Codes entered * Surgical Procedure Planned - Actual Procedure Performed: Procedure(s): HARDWARE REMOVAL LEFT ANKLE IRRIGATION AND DEBRIDEMENT LEFT ANKLE Anesthesia: General Length of procedure: In Room/Out of Room: 4 Hr 36 Min 47 Sec Surgeon(s) and Role: * Olivier Ansari MD - Primary OR positioning comments: Neuro: POSS Sedation Level: 1 Last pain medication given: Hydromorphone push (mg): 0.5 mg (09/04/19 6294) Pain medication totals: 2 mg Dilaudid IVP Additional pain medication information: Functional Epidural: N/A TEACHER OF THE DEAF: N/A Respiratory: RR: 17 , O2 Sat: 98 % , O2 Delivery: None (room air) Breath Sounds: WDL BEBE: LLL: RUL: RLL: MARK No Comment: Cardiac: BP: 115/53 HR: 101 GI: Nausea/Vomiting Status: No Signs/Symptoms: Interventions: Assessment: Comments: : Last void: 1350 - episode of incontinence moving from OR table to bed. Contact Name: Josué - son Contact Number: [phone] Family contacted: Yes Comment:Off campus. Given update. Belongings:Returning to room. rief Op Note - Carmen Ansari MD - 09/04/2019 1:46 PM PDTFormatting of this note might be different from the or iginal. Date of procedure: 09/03/2019 - 09/04/2019 Times Event Time In Procedure Start Shania Sep 04, 2019 0954 Procedure Stop Shania Sep 04, 2019 1339 Location: [facility] Surgeon(s) and Role: * Olivier Ansari MD - Primary Staff: Perfume Maker: Geneva Mills RN Scrub: Brady Anderson RN Perfume Maker Relief: Lise Xiong RN; Sveta Graham RN Scrub Relief: ST Scott Scrub Orientee: ST Rodo Residency Director: Varun Patel, RT Additional RN: Cary Jones RN Meat Blender: Noel Baptiste MD Pre Op Dx INFECTED LEFT ANKLE FUSION Cirrhosis Post Op Dx: Same Procedure: 1. Four compartment fasciotomy left leg, with incision irrigation and debridement, two-inci sions 2. Removal of hardware deep implant, with curettage of calcaneus 3. Irrigation/incision/debridement of left ankle incomplete fusion 4. Spanning ankle fusion antibiotic nail 5. Placement external tissue thermoforming operator, area other than breast 6. Placement non-prefabricated Negative Pressure Wound Therapy, area >50sqcm Anesthesia: General Estimated Blood Loss: 400cc Specimens ID Type Source Tests Collected by Time Destination A : Deep tissue and bone left leg Tissue Ankle CULTURE, TISSUE-PROSTHETIC JOINT INFECTION A ER AND SAMMIE Ansari MD 09/04/2019 1209 B : Deep tissue and bone left leg Tissue Ankle CULTURE, TISSUE-PROSTHETIC JOINT INFECTION A EDNA AND SAMMIE Ansari MD 09/04/2019 1221 C : Deep tissue and bone left leg Tissue Ankle CULTURE, TISSUE-PROSTHETIC JOINT INFECTION A EDAN AND SAMMIE Ansari MD 09/04/2019 1221 D : Deep tissue and bone left leg Tissue Ankle CULTURE, TISSUE-PROSTHETIC JOINT INFECTION A EDNA AND SAMMIE Ansari MD 09/04/2019 1221 E : Deep tissue and bone left leg Tissue Ankle CULTURE, TISSUE-PROSTHETIC JOINT INFECTION A ER AND SAMMIE Olivier Ansari MD 09/04/2019 1221 Implants/Grafts Implant Name Type Inv. Item Serial No. Harvest Manager Lot No. [id number] No. Used Action Size CEMENT BONE REFOBACIN 1X40 W/ GENTAMICIN - [id number] CEMENT BONE REFOBACIN 1X40 W/ GENTAMI MAIA JAMES [id number] Left 2 Implanted Complications: None Findings: Edema but no dishwater fluid or purulence in the leg. All hardware removed. Place d an antibiotic-laden nail. Purulence along all the screws, and within the canal of the tibi a. Good wound vac seal at the end. Plan: - NWB, elevated, posterior black foot splint - continue IV abx, f/u cultures - nutrition - glucose control - plan for return to OR and repeat I&D, likely Sunday or Sunday Olivier Ansari MD D RN Student Note - Gwyn Turpin - 09/04/2019 2:00 AM PDTRN Admission/Transfer Note Reason for admission: Necrotizing soft tissue infection Pertinent physical findings (Focused assessment, Pain/discomfort, Neuro, Cards/tele and Resp assessment): Afib, limited sensation in left leg, denies pain, red, alva ma hardware is visible from the skin, serous fluid draining. Patient-specific pain target: 0 Pertinent PMHx (See also Code Status, MAR, Results, Allergies, Medication reconciliation & Medical History): PAST MEDICAL HISTORY: Afib w/ RVR denies taking medications for this Takes "water pills" EtOH cirrhosis BLE Venous stasis dermatitis PAST SURGICAL HISTORY: No past surgical history on file. SOCIAL HISTORY: Denies smoking or recreational Says he quit drinking 3 months ago (hx of EtOH cirrhosis) Restrictions: none Psych/social assessment & interventions: No pertinent issues noted. No interventions needed . Safety risks (Identify patient triggers/safety concerns & effective interventions): no safe ty risks noted Isolation status: None Legal status: Voluntary Medical/psychosocial stability: Moderately Stable Transport/transitions concerns as related to stability: None Orders to follow up on: none Belongings check: Completed; Secured Report called to: Anderson ASKEW in 4C unit. MD report called? yes Education provided to the patient/family: plan of careElectronically signed by Gwyn verdin 09/04/2019 2:05 AM PDTED RN Student Note - Gwyn Turpin - 09/04/2019 1:28 AM PDTCalled to give report, was informed that RN was almost available to give report, gave floor number to reach me. D RN Student Note - Gwyn Turpin - 09/04/2019 1:00 AM PDTAttempted to call report to 4A, but was informed that they would call back in 30 min when another nurse came to the floor to take this admit.Elect ronically signed by Gwyn Turpin at 09/04/2019 1:01 AM PDTED Teaching Notes - Matt Guillen MD - 09/04/2019 12:49 AM PDTAriana Guillen MD, Faculty Note: I saw and evaluated the patient and discussed the diagnosis, management, and interpretation of results with the resident. I performed and confirmed the cespedes portions of the service. I have reviewed and agree with the documentation in the provider note. D RN Student Note - Gwyn Turpin - 9 8:04 PM PDTPt talking to brother on phoneElectronically signed by Gwyn Turpin at 9 8:04 PM PDTBaraga [facility] - Alida Johnson - 09/03/2019 5:46 PM PDTPendleton 69 yom with poss L leg sepsis below knee. BP 100/54, T 99.4, Sat 96% RR 20, HR 120-130 ETA 15 min documented in this enc ounter Plan of Treatment + +---------+--------+ + + [...] | + +--------+ + + + | ALLEGRA TROUGH | Routin | 09/12/2019 | | [...] | + +--------+ + + + | EILEEN POP | Urgent | 09/03/2019 | | Results [...] + | [facility] | [address] | [place] [address] | | | SERVICES, CORE | DWIGHT [...] HematopathologistPatholo | | | | | | , [facility] & | | | | [...] + + + + + | [facility] | [address] | [place] [address] | | | PATHOLOGY | [address] [...] | + + + + + | [facility] | [address] | [place] [address] | | | FERMÍN ZABALA | DWIGHT [...] | + + + + + | [facility] | [address] | [place] [address] | | | FERMÍN ZABALA | DWIGHT [...] | | | LABORATORY | | | CROATIAN | | | SERVICES, | | | [...] | + + + + + | [facility] | [address] | [place] [address] | | | SERVICES, CORE | DWIGHT [...] | + + + + + | [facility] | [address] | [place] [address] | | | SERVICES, CORE | PARK [...] [facility] | [address] | [place] [address] | | | SERVICES, CORE | PARK [...] | + + + + + | [facility] | [address] | [place] [address] | | | SERVICES, CORE | DWIGHT [...] [facility] | [address] | [place] [address] | | | SERVICES, CORE | PARK [...] [facility] | [address] | [place] [address] | | | SERVICES, CORE | PARK [...] | | | LABORATORY | | | CROATIAN | | | SERVICES, | | | [...] MDRD equation recommended by the National | [facility] | | Kidney Disease Education Program. [...] | + + + + + | [facility] | [address] | [place] [address] | | | SERVICES, CORE | PARK [...] [facility] | [address] | [place] [address] | | | SERVICES, CORE | PARK [...] | | | LABORATORY | | | CROATIAN | | | SERVICES, | | | [...] MDRD equation recommended by the National | [facility] | | Kidney Disease Education Program. [...] | + + + + + | [facility] | [address] | [place] [address] | | | SERVICES, [facility] | [address] | | | + [...] | | Diagnosis: Cellulitis LE Procedure location: [facility]: Room: [facility] | | [...] correct patient, | | | procedure, equipment, customer support associate and site/side marked as | | | [...] vein. Catheter lot number: | | | [id number] with a length of 55 cm was [...] | | | + +---------+ + + ANDREW DINH (09/09/2019 11:26 AM PDT) + + + [...] [facility] | [address] | [place] [address] | | | SERVICES, CORE | PARK [...] + + | [facility] | [address] | [place] [address] | | | SERVICES, CORE | PARK [...] | + + + + + | [facility] | [address] | [place] [address] | | | SERVICES, CORE | DWIGHT [...] [facility] | [address] | [place] [address] | | | SERVICES, CORE | PARK [...] [facility] | [address] | [place] [address] | | | SERVICES, CORE | DWIGHT [...] | | | LABORATORY | | | CROATIAN | | | SERVICES, | | | [...] | + + + + + | [facility] | [address] | [place] [address] | | | SERVICES, FERMÍN | DWIGHT [...] | + + + + + | [facility] | [address] | [place] [address] | | | VJ, FERMÍN | [address] | | | [...] [facility] | [address] | [place], [place] | | | ALEX MORAN OF CARE | [address] | [address] | | | TESTS | | | [...] | + + + + + | [facility] | [address] | [place] [address] | | | SERVICES, CORE | DWIGHT [...] | | | LABORATORY | | | CROATIAN | | | SERVICES, | | | [...] MDRD equation recommended by the National | [facility] | | Kidney Disease Education Program. [...] | + + + + + | [facility] | [address] | [place] [address] | | | SERVICES, CORE | DWIGHT [...] [facility] | [address] | [place] [address] | | | SERVICES, | [address] [...] + + | [facility] | [address] | [place] [address] | | | SERVICES, | [address] | | | | TRANSFUSION MEDICINE | | | | + + + + + VASC LAB ANKLE BRACH INDICS W YUAN BILAT (09/05/2019 1:51 PM PDT) + + [...] | | + +---------+ + + | [facility] | | | | | [facility] | | | | + [...] | | + +---------+ + + | [facility] RADIOLOGY | | | | | [facility] | | | | + +---------+ + + RBC MORPHOLOGY (09/05/2019 5:00 AM PDT) + + + + + + | Component | Value | Ref Range | Performed | Pathologist | | | | | At | Signature | + + + + + + | ANISOCYTOSI | 1+(-25cells/HPF) | | [facility] | | | S | | | LABORATORY | | | | | | SERVICES, | | | | | | CORE | | + + + + + + | MICROCYTOSI | 1+(-25cells/HPF) | | [facility] | | | S [...] | + + + + + | [facility] | [address] | [place] [address] | | | SERVICES, CORE | PARK [...] | + + + + + | [facility] | [address] | [place] [address] | | | SERVICES, CORE | PARK [...] DEPT OF | [address] | [place], [place] | | | CARDIOLOGY | [address] | [address] | | + + + + + [...] + | [facility] | [address] | [place], [place] | | | [place] [facility] | [address] | [address] | | | TESTS | | | [...] | | | | (A) | | [place] | | + + + + + + | CULTURE | Enterococcus faecalis | | [facility] | | | RESULT | (A) | | [facility] | | | | | | [place] | | + + + + + [...] B for complete identification and susceptibilities | [place] | | Enterococcus faecalis Unable to continue [...] + | [facility] | [address] | [place] [address] | | | [place] | | | [...] | + + + + + | [facility] - | [address] | [place] [address] | | | [place] | | | | + + + [...] B for complete identification and susceptibilities | [place] | | Enterococcus faecalis Refer to culture [...] + | [facility] | [address] | [place] [address] | | | [place] | | | [...] squamous epithelial cells Rare polymorphonuclear cells | [facility] | | No organisms seen | | [...] + | [facility] | [address] | [place] [address] | | | [place] | | | [...] + | [facility] | [address] | [place] [address] | | | [place] | | | [...] [facility] | [address] | [place] [address] | | | SERVICES, CORE | PARK [...] [facility] | [address] | [place] [address] | | | SERVICES, CORE | PARK [...] | | | LABORATORY | | | CROATIAN | | | SERVICES, | | | [...] | + + + + + | [facility] | [address] | [place] [address] | | | SERVICES, FERMÍN | DWIGHT [...] [facility] | [address] | [place] [address] | | | SERVICES, CORE | PARK [...] | Negative | [facility] | | | IRINA, URINE | | | LABORATORY | | [...] | + + + + + | [facility] | [address] | [place] [address] | | | FERMÍN ZABALA | [address] | | | + + + + + CARDIOLOGY 09/04/2019 12:00 AM PDT) + + + | [...] | [facility] | | considered for monitoring fci glycemic control in patients with: | LABORATORY [...] [facility] | [address] | [place] [address] | | | SERVICES, SPECIAL | [address] | | | [...] + | [facility] | [address] | [place] [address] | | | [place] | | | [...] + | [facility] | [address] | [place] [address] | | | SERVICES, CORE [...] | + + + + + | [facility] | [address] | [place] [address] | | | FERMÍN ZABALA | DWIGHT [...] | + + + + + | [facility] | [address] | [place] [address] | | | VJ, FERMÍN | DWIGHT [...] | + + + + + | [facility] | [address] | [place] [address] | | | SERVICES, CORE | DWIGHT [...] | | JACINTO, POC | | | NASH | | | [...] [facility] | | | | | | [place] | | | | | | OF CARE | | | | | | TESTS | | + +-------+ + + + | LACTATE | 0.8 | 0.5 - 2.0 | [facility] | | | VENOUS, POC | | mmol/L | [facility] | | | | | | [place] | | | | | | OF CARE | | | | | | TESTS | | + +-------+ + + + | PAT TEMP | 97.8 | | [facility] | | | VENOUS,POC | | | [facility] | | | | | | [place] | | | | | | OF CARE | | | | | | TESTS | | + +-------+ + + + | BASE EXCESS | 3.0 | -2 - 3 mmol/L | [facility] - | | | JACINTO, POC | | | [facility] | | | | | | [place] | | [...] [facility]O | [address] | [place], [place] | | | [place]INT OF CARE | [address] | [address] | | | TESTS | | | [...] [facility] | [address] | [place] [address] | | | SERVICES, CORE | PARK [...] [facility] | [address] | [place] [address] | | | SERVICES, CORE | PARK [...] | + + + + + | [facility] | [address] | [place] [address] | | | SERVICES, CORE | DWIGHT [...] [facility] | [address] | [place] [address] | | | SERVICES, CORE | PARK [...] | | | LABORATORY | | | CROATIAN | | | SERVICES, | | | [...] MDRD equation recommended by the National | [facility] | | Kidney Disease Education Program. [...] | + + + + + | [facility] | [address] | [place] [address] | | | SERVICES, [facility] | [address] | | | + [...] department on 09/03/2019 8:30 PM by Makeda Jaems MD : I have personally reviewed | [...] James MD 09/03/2019 8:31 PM Preliminary: Makeda | | Alvino James MD Dictation initiated: Makeda James MD [...] [facility] | [address] | [place] [address] | | | SERVICES, | [address] [...] | + + + + + | [facility] | [address] | [place] [address] | | | SERVICES, CORE | DWIGHT [...] [facility] | [address] | [place] [address] | | | SERVICES, CORE | PARK [...] + + + | [facility] | [address] | [place] [address] | | | SERVICES, CORE | DWIGHT [...] | | | | | NEEDED, Starting [facility] 09/04/19 at | | 19 4:05 [...] | | | | | dose on Sun09/04/19 at 0900, | | AM PST | [...] | | | | First dose on Sun09/04/19 at | | AM PST | | [...] PDT | | | | | Starting [facility] 09/04/19 at 1845, | | | [...]
--- OUTSIDE RECORDS SUMMARY | ~2020-08-04 | XMS | Encounter Summary ---
Demographics + + + | Address | [address] | | | [place] [address] | + + + | Home Phone [...] Author + + + | Author | [facility] | | | and [place] | + + + | Organization | [facility] | | | [...] Team Providers + +------+ + | Care Outside Sales Account Manager Name | Role | Phone | [...] Provider Unknown | | | | | [place], [place] | [phone] | | | | | [address] | | | | | | [phone] | | | +--------+ + + + [...]
--- OUTSIDE RECORDS SUMMARY | ~2020-08-04 | XMS | Encounter Summary ---
Demographics + + + | Address | [address] | | | [place] [address] | + + + | Home Phone [...] Team Providers + +------+ + | Care Marine Cargo Surveyor Name | Role | Phone | + +------+ + | Dustin Perez MD | PCP | | + +------+ + Reason for Visit + +--------+ + | Reason | Onset | Comments | | | Date | | + +--------+ + | Lab findings, | 10/10/ | Creatinine | | teaching, guidance, | 2018 | | | and counseling | | | + +--------+ + | Infectious disease | 10/10/ | | | | 2019 | | [...] | | | [address] | [address] | and counseling | | | | [facility] | [place], [place] | (Creatinine); | | | | [address], [facility] floor | [address] | Infectious disease | | | | [place], [place] | [phone] | | | | | [address] | | | | | | [phone] | | | +--------+ + + + [...] this encounter Miscellaneous Notes Telephone Encounter - Caroline Hale RN - 10/14/2019 1:30 PM PSTSpoke with nurse Montse at [facility] ([phone]) and confirmed that they are all aware that pt is ortiz ng followed by [facility], they are now sending all lab results to that office and ID provide r has followed up regarding those abnormal results. Nothing more for [facility] to do. Caroline Hale RN el ephone Encounter - Chyna Aponte RN - 10/10/2019 1:31 PM PSTPatient's labs were faxed to our clinic. Cr slightly elevated. Per Dr. Baum's request, called SNF to check on patient. Called and spoke to a Jody, nurse at the SNF, who reported that patient does not have diar naga, is getting adequate PO fluids. They are drawing Cr and vanc tonight. Of note, this patient is being followed by [facility] and sees them on Sunday. I asked that the labs be sent to that ID clinic. Dr. Baum: We can call on Sunday to make sure his Cr is stable. Chyna Aponte, RN documented in this en counter Plan of [...]
--- OUTSIDE RECORDS SUMMARY | ~2020-08-04 | XMS | Encounter Summary ---
Demographics + + + | Address | [address] | | | [place] [address] | + + + | Home Phone | | + + + | Preferred Language | Unknown | + + + | Marital Status | Single | + + + | Mormonism Affiliation | Unknown | + + + | Race | White | + + + | Ethnic Group | Not or | + + + Author + + + | Author | [facility] | | | and [place] | + + + | Organization | [facility] | | [...] Team Providers + +------+ + | Care Human Resources Temp Name | Role | Phone | + +------+ + | Dustin Perez MD | PCP | | + +------+ + Reason for Visit + + + | Reason | Comments | + + + | Follow-up | Infection left leg | + + + Encounter Details +--------+---------+ + + + | Date | Type | Department | Care Team | Description | +--------+---------+ + + + | 10/13/ | Office | [facility] | Marie DonovanianDO | Subacute | | 2019 | Visit | INFECTIOUS DISEASE | [address] | osteomyelitis of | | | | [address] | [place] [address] | left ankle (HCC) | | | | [place], [place] | [phone] | (Primary Dx); | | | | [address] | | Infection of lower | | | | [phone] | | extremity associated | | | | | | with hardware | | | | | | (HCC); MRSA | | | | | | (methicillin | | | | | | resistant | | | | | | Staphylococcus | | | | | | aureus) | +--------+---------+ + + + Social History [...] + + + | Blood Pressure | 135/77 | 10/13/2019 2:33 PM | | | | | PST | | + + + + + | Pulse | 76 | 10/13/2019 2:33 PM | | | | | PST | | + + + + + | Temperature | 36.6 C (97.9 F) | 10/13/2019 2:33 PM | | | | | PST | | + + + + + | Respiratory Rate | 16 | 10/13/2019 2:33 PM | | | | | PST | | + + + + + | Oxygen Saturation | 100% | 10/13/2019 2:33 PM | | | | | PST | | + + + + + | Inhaled Oxygen | - | - | | | Concentration | | | | + + + + + | Weight | 90.3 kg (199 lb) | 10/13/2019 2:33 PM | | | | | PST | | + + + + + | Height | - | - | | + + + + + | Body Mass Index | 26.99 | 09/29/2019 1:05 PM | | | | | PST | | + + + + + documented in this encounter Patient Instructions Patient Instructions Scotty Donovan DO - 10/13/2019 2:20 PM PSTOn facility sheet.Electronica lly signed by Scotty Donovan DO at 10/13/2019 2:54 PM PST documented in this encounter Progress Notes Scotty Donovan DO - 10/13/2019 2:20 PM PST Subjective Patient ID: Monty [...] had apparently some cultures obtained at his [facility] facility which were reportedly negative. Prior to [...] 06, 2019 for wound closure. The patient's wi crobiology showed Staphylococcus aureus (MRSA), Corynebacterium striatum, [...] on of the antibiotic course to 8 weeks. Interim history: The patient presents for follow-up today and reports that he continues to have drainage wee ping into his dressings every day, and the dressings are changed daily. He has not had any significant pain there. He denies any fevers or chills. He had labs collected on Sunday an d does believe that his dose of vancomycin was adjusted over the weekend. He has follow-up with orthopedics at [facility] later this week. He denies any nausea, vomiting or diarrhea. The following elements of the patient's history [...] tenderness or distal edema Left leg has venous stasis and lymphedema. Incisions appear to be healing well by secondar y intention, and there is evidence of serous fluid weeping into the dressings, but no purule nt drainage. Neurological: Mental Status: He is alert and oriented to person, place, and time. Psychiatric: Thought Content: Thought content normal. Assessment /Plan 1. Subacute osteomyelitis of left ankle / Infection of lower extremity associated with hard medrano / MRSA (methicillin resistant Staphylococcus aureus) Laboratory studies are showing good improvement with sed rate down to 42, CRP down to 1 (no rmal at that laboratory). The wounds have been delayed in healing, although likely confound ed by serous drainage in the setting of lymphedema and venous stasis. I would favor extendi ng the IV antibiotics to a total of 8 weeks following debridement, through October 31. Cre atinine has been fluctuating, but is stable overall. Vancomycin dose has been adjusted to 1 750 mg every 24 hours. We will continue to follow trough levels and renal function twice we ekly. Follow-up in 2 weeks to review clinical progress. A total of 15 minutes was spent face to face with the patient, of which greater than 10 min utes was spent in education and councilling regarding the above issues. documented in this encoun ter Plan of Treatment Not on filedocumented as of this encounter Procedures + +--------+ + + + | Procedure Name | Priori | Date/Time | Associated Diagnosis | Comments | | | ty | | | | + +--------+ + + + | LABS - EXTERNAL SCAN | | 10/27/2019 | | Results for this | | | | 12:00 AM | | procedure are in the | | | | PST | | results section. | + +--------+ + + + | LABS - EXTERNAL SCAN | | 10/13/2019 | | Results for this | | | | 12:00 AM | | procedure are in the | | | | PST | | results section. | + +--------+ + + + | LABS - EXTERNAL SCAN | | 10/10/2019 | | Results for this | | | | 12:00 AM | | procedure are in the | | | | PST | | results section. | + +--------+ + + + documented in this encounter Results LABS - EXTERNAL SCAN (10/27/2019 12:00 AM PST) + + + | Narrative | Performed At | + + + | Ordered by an | | | unspecified provider. | | + + + LABS - EXTERNAL SCAN (10/13/2019 12:00 AM PST) + + + | Narrative | Performed At | + + + | Ordered by an | | | unspecified provider. | | + + + LABS - EXTERNAL SCAN (10/10/2019 12:00 AM PST) + + + | Narrative | Performed At | + + + | Ordered by an | | | unspecified provider. | | + + + documented in this encounter Visit Diagnoses + + | Diagnosis | + + | Subacute osteomyelitis of left ankle (HCC) - Primary | + + | 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) | + + | MRSA (methicillin resistant Staphylococcus aureus) Methicillin resistant | | Staphylococcus aureus in conditions classified elsewhere and of unspecified site | + + documented in this encounter
--- OUTSIDE RECORDS SUMMARY | ~2020-08-04 | XMS | Encounter Summary ---
Demographics + + + | Address | [address] | | | [place] [address] | + + + | Home Phone | | + + + | Preferred Language | Unknown | + + + | Marital Status | Single | + + + | Faith Affiliation | NRP | + + + [...] Team Providers + +------+ + | Care Talent Development Consultant Name | Role | Phone | + [...] | [address] [facility] | [place], [place] | | | | | [facility], | [address] | | | | | [facility] | [phone] | | | | | Floor [place], [place] | | | | | | [address] | | | | | | [phone] | | | +--------+ + + + [...]
--- OUTSIDE RECORDS SUMMARY | ~2020-08-04 | XMS | Encounter Summary ---
Demographics + + + | Address | [address] | | | [place] [address] | + + + | Home Phone | | + + + | Preferred Language | Unknown | + + + | Marital Status | Single | + + + | Temple Affiliation | Unknown | + + + | Race | White | + + + | Ethnic Group | Not or | + + + Author + + + | Author | [facility] | | | and [place] | + + + | Organization | [facility] | | | [...] Team Providers + +------+ + | Care Construction Project Engineer Name | Role | Phone | [...] + + | 10/13/ | Documentati | [facility] | Scotty Donovan DO | Results | | 2019 | on | INFECTIOUS DISEASE | [address] | ([facility] | | | | [address] | [place] [address] | Ignacio mcguire) | | | | [place], [place] | [phone] | | | | | [address] | | | | | | [phone] | | | +--------+ + + + [...] + +--------+ + + + | GLADIS + ALONSO | Routin | 10/10/2019 | | Results [...] [address] | [place] | [phone] | | [facility] | | [address] | | + + + + + [...] [address] | [place] | [phone] | | [facility] | | [address] | | + + + + + documented in this encounter Visit Diagnoses Not on filedocumented in this encounter"
--- OUTSIDE RECORDS SUMMARY | ~2020-08-04 | XMS | Encounter Summary ---
Demographics + + + | Address | [address] | | | [place] [address] | + + + | Home Phone | | + + + | Preferred Language | Unknown | + + + | Marital Status | Single | + + + | Mu-Ism Affiliation | Unknown | + + + | Race | White | + + + | Ethnic Group | Not or | + + + Author + + + | Author | [facility] | | | and [place] | + + + | Organization | [facility] | | | and [...] Team Providers + +------+ + | Care It Risk Advisor Name | Role | Phone | + +------+ + | Dustin Perez MD | PCP | | + +------+ + Reason for Visit +--------+--------+ + | Reason | Onset | Comments | | | Date | | +--------+--------+ + | Other | 10/01/ | care coordination/lab orders | | | 2019 | | +--------+--------+ + Encounter Details +--------+ + + + + | Date | Type | Department | Care Team | Description | +--------+ + + + + | 10/01/ | Telephone | [facility] | Heather Russo | Other (care | | 2019 | | INFECTIOUS DISEASE | AZAR De Oliveira | coordination/lab | | | | [address] | | orders) | | | | [place] | | | | | | [address] | | | | | | [phone] | | | +--------+ + + + [...] Russo RN - 10/06/2019 3:46 PM PSTCalled [facility] , requested lab resuults be faxed to our office. Lab staff states labs were done on Sunday12/03/2018. [facility] fax number given. Electronically signed by Heather Russo RN at 019 3:47 PM PSTTelephone Encounter - Heather Russo RN - 10/03/2019 10:27 AM PSTContac katlin [facility] to [facility] about vancomycin trough level due yesterday 09/13. Staff states they had a SPEED BELT SANDER on duty yesterday, who could not draw from patient picc line and she was advised not to draw a peripheral blood sample. Staff at [place] states there will be a RN on staff tonight and the vancomycin trough will be drawn. Advised if vano mcycin trough levels are out of range to call [facility] director corporate communications doctor. Contact phone number pro sctjd. Advised [facility] staff our office will follow up next week for lab results . Facility sends their labs to [facility] for processing. elephone Encounter - Heather Russo RN - 019 10:26 AM PSTCalled [facility] lab for vancomycin trough leve due yesterday 10/02, advised no current vancomycin trough level, last labs are from 09/23/2019. Electronic ally signed by Heather Russo RN at 10/03/2019 10:27 AM PSTTelephone Encounter - Heather Katz RN - 10/02/2019 11:33 AM PST[facility] and what time patient receives his dose. Spoke to charge nurse at facility who sta bryan patient current regimen is Vancomycin 1500mg IV q24hrs, and time of infusion is 8pm. Pat ient due for Vancomycin trough today, which will be done prior to his evening dose later tod ivanna. elephone Encoun ter - Heather Russo RN - 10/01/2019 11:01 AM PSTAdded to IV antibiotics tracking 10/01. elephone En counter - Heather Russo RN - 10/01/2019 10:57 AM PSTCalled [facility] Leon De La [facility] regarding [facility]. Advised patient will need twice weekly labs while on IV Vancom ycin, informed nurse lab orders per DR Vogel as follows. Every Sunday: cbc, cmp, esr, crp +vanco trough. Every : cbc, cmp and vanco trough. [facility] uses [facility]. Advised patient to follow up with [facility] 10/13/2019. elephone Encounter - Heather Russo RN - 10/01/2019 1 0:57 AM PST----- Message from Savannah Patel [employer] Voltage Electrician sent at 10/01/2019 8:[address] ----- ----- Message ----- From: Liang Gunderson MD Sent: 09/30/2019 5:53 PM PST To: [facility] Clinical Staff Pool Please add the patient to the IV antibiotic list. Obtain twice weekly lab results. documented in this encounter Plan of Treatment Not on filedocumented as of this encounter Visit Diagnoses Not on filedocumented in this encounter"
--- OUTSIDE RECORDS SUMMARY | ~2020-08-04 | XMS | Encounter Summary ---
Demographics + + + | Address | [address] | | | [place] [address] | + + + | Home Phone | | + + + | Preferred Language | Unknown | + + + | Marital Status | Single | + + + | Temple Affiliation | NRP | + + + [...] Team Providers + +------+ + | Care Claim Investigator Name | Role | Phone | + [...] | | | | | | [place] [address] | | | +--------+--------+ + + + [...]
--- OUTSIDE RECORDS SUMMARY | ~2020-08-04 | XMS | Encounter Summary ---
Demographics + + + | Address | [address] | | | [place] [address] | + + + | Home Phone | | + + + | Preferred Language | Unknown | + + + | Marital Status | Single | + + + | Adventism Affiliation | NRP | + + + [...] Team Providers + +------+ + | Care Diabetes Specialist Name | Role | Phone | [...] | | | | [facility] | [place], [place] | | | | | [address], [address] floor | [address] | | | | | [place], [place] | [phone] | | | | | [address] | | | | | | [phone] | | | +--------+ + + + [...]
--- OUTSIDE RECORDS SUMMARY | ~2020-08-04 | XMS | Clinical Summary ---
Demographics + + + | Address | [address] | | | [place] [address] | + + + | Home Phone [...] Team Providers + +------+ + | Care Checkering Machine Operator Name | Role | Phone | + +------+ + | Rio Huerta MD | PCP | | + +------+ + Source Comments [facility] is fully live on both [facility] and [facility] Allergies No Known Allergies Medications + + [...] | | + + + +---------+------+------+-------+ | multivitamin-iron | Take 1 tablet by | | 0 | | | Activ | | oral tablet | mouth once daily. | | | | | e | + + + +---------+------+------+-------+ | acetaminophen 325 | Take 325 mg by mouth | | 0 | | | Activ | | mg oral tablet | every six hours as | | | | | e | | | needed (pain). | | | | | | + + + +---------+------+------+-------+ | melatonin 5 mg | Take 5 [...] | Activ | | oral tablet | two times daily. | | | | | e | + + + +---------+------+------+-------+ | apixaban 5 mg oral | Take 1 tablet by | 60 | 2 | 08/0 | 10/2 | Activ | | tabletIndications: | mouth two times | tablet | | /20 | 5 | e | | deep venous | daily. Indications: | | | 20 | 20 | | | thrombosis, prevent | blood clot in a deep | | | | | | | thromboembolism in | vein of the | | | | | | | chronic atrial | extremities, | | | | | | | fibrillation | treatment to prevent | | | | | | | | blood clots in | | | | | | | | chronic atrial | | | | | | | | fibrillation | | | | | | + + + +---------+------+------+-------+ | furosemide 20 mg | Take 1 tablet by | 30 | 0 | 07/3 | | Activ | | oral | mouth once daily. | tablet | | 0/20 | | e | | tabletIndications: | | | | 20 | | | | Closed trimalleolar | | | | | | | | fracture of right | | | | | | | | ankle, initial | | | | | | | | encounter | | | | | | | + + + +---------+------+------+-------+ | tamsulosin 0.4 mg | Take 1 capsule by | | 0 | 07/3 | | Activ | | oral capsule | mouth once daily. | | | 0/20 | | e | | | | | | 20 | | | + + + +---------+------+------+-------+ | omeprazole 20 mg | Take 1 capsule by | 30 | 0 | 07/3 | | Activ | | oral capsule,delayed | mouth two times | capsule | | 0/20 | | e | | release(DR/EC) | daily before meals. | | | 20 | | | | | Administer 30 to 60 | | | | | | | | minutes before meals | | | | | | + + + +---------+------+------+-------+ | cyanocobalamin | Take 2,000 mcg by | | 0 | 07/3 | | Activ | | 2,000 mcg oral | mouth once daily. | | | 0/20 | | e | | tabletIndications: | | | | 20 | | | | Closed trimalleolar | | | | | | | | fracture of right | | | | | | | | ankle, initial | | | | | | | | encounter | | | | | | | + + + +---------+------+------+-------+ | oxyCODONE | Take 1-2 tablets by | 30 | 0 | 07/3 | | Activ | | (immediate release) | mouth every four | tablet | | 0/20 | | e | | 5 mg oral tablet | hours as needed for | | | 20 | | | | | moderate pain | | | | | | | | (unresponsive to | | | | | | | | non-opioid | | | | | | | | medication). | | | | | | + + + +---------+------+------+-------+ | polyethylene | Mix 1 packet and | | 0 | 07/3 | | Activ | | glycol 17 gram oral | take orally once | | | 0/20 | | e | | powder in packet | daily. | | | 20 | | | + + + +---------+------+------+-------+ | senna-docusate | Take 2 tablets by | | 0 | 07/3 | | Activ | | 8.6-50 mg oral | mouth two times | | | 0/20 | | e | | tablet | daily. | | | 20 | | | + + + +---------+------+------+-------+ | cephALEXin | Take 1 capsule by | 15 | 0 | 07/3 | | Activ | | (KEFLEX) 500 mg oral | mouth every eight | capsule | | 0/20 | | e | | capsuleIndications: | hours. Indications: | | | 20 | | | | bone/joint | bone/joint infection | | | | | | | infection | | | | | | | + + + +---------+------+------+-------+ Active Problems + + + | Problem | Noted Date | + + + | Closed trimalleolar fracture of right ankle, initial encounter | 06/02/2020 | + + + | Atrial fibrillation, unspecified type | 06/02/2020 | + + + | Closed fracture dislocation of ankle joint, right, initial | 06/02/2020 | | encounter | | + + + | Gynecomastia, male (Juni III) | 09/14/2019 | + + + | Essential hypertension | 09/12/2019 | + + + | "Cirrhosis, Laennec's" (HCC) = per chart | 09/12/2019 | + + + | Neuropathy, 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 Cnidy Horan? Other? | + + + + [...] + + | 07/26/ | Patient | Physical Therapy | Ld Rodriguez RN | | 2019 | Outreach | | | | +--------+ + + + + | 07/15/ | Telephone | Orthopedics | Marty Fam, | Solange (SET UP PHONE | 2019 | | | MD | CALL WITH BETH) | +--------+ + + + + | 07/12/ | Patient | Physical Therapy | Ld Rodriguez RN | | | 2019 | Outreach | | | | +--------+ + + + + | 06/21/ | Patient | Physical Therapy | Ld Rodriguez RN | | | 2019 | Outreach | | | | +--------+ + + + + | 06/14/ | Patient | Physical Therapy | Ld Rodirguez RN | | | 2019 | Outreach | | | | +--------+ + + + + | 06/11/ | Patient | Physical Therapy | Ld Rodriguez RN | | | 2019 | Outreach | | | | +--------+ + + + + | 06/10/ | Pharmacy | | | | | 2019 | Visit | | | | +--------+ + + + + | 06/08/ | Anesthesia | Surgery | Esteban Rosas | | | 2019 | Event | | RMD Rosales, | | | | | | MD Alka | | +--------+ + + + + | 06/08/ | Surgery | Surgery | Marty Fam, | RIGHT HINDFOOT | | 2019 | | | | NAILING | +--------+ + + + + | 06/08/ | Procedure | Surgery | | | | 2020 | Pass | | | | +--------+ + + + + | 06/03/ | Documentati | | Anthony Fry | Medication | | 2020 | on | | | Assistance Referral | | | | | | (Nasreen) | +--------+ + + + + | 06/03/ | Pharmacy | | | | | 2020 | Visit | | | | +--------+ + + + + | 06/02/ | Anesthesia | Surgery | Raimundo Hernandez, | | | 2020 | Event | | Scotty Villalobos, | | | | | | MD | | +--------+ + + + + | 06/02/ | Surgery | Surgery | Malik Mcmillan | placement of | | 2019 | | | MD Joselito | calcaneal pin, | | | | | | stress exam under | | | | | | anesthesia right | | | | | | ankle | +--------+ + + + + | 06/02/ | Procedure | Surgery | | | | 2019 | Pass | | | | +--------+ + + + + | 06/01/ | Hospital | Adult Acute Care | Claudy Flores, | | | 2019 - | Encounter | | MD Guillen | | | | | | MD Ariana | | | 06/11/ | | | Dago Mcdowell MD | | | 2019 | | | Malik Mcmillan | | | | | | MD Joselito | | +--------+ + + + + | 06/01/ | Travel | | | | | 2019 | | | | | +--------+ + + + + | 06/01/ | Intake | | | | | 2019 | | | | | +--------+ + + + + | 05/04/ | Telephone-S | Orthopedics | Cory Carmen, | Follow-up visit | | 2020 | cheduled | | MD | | +--------+ + + + + from Last 3 Months Immunizations + + + + | Name | Administration Dates | Next Due | + + + + | Influenza, | 09/17/2019 | | | High-Dose, | | | | Trivalent, | | | | Preservative-Free | | | + + + + Family History + +------+ + + | Relation | Name | Status | Comments | + +------+ + + | Father | | | | + +------+ + + | Mother | | | | + +------+ + + Social [...] + + + | Pneumococcal | | 07/14/20 | | | vaccination (1 of 1 | 5 | 09 | | | - PPSV23) | | | | + + + + + | Influenza (Flu) | | 09/17/20 | | | vaccination (#1) | 0 | 19, | | [...] Left: | JULISA | | 05/11/ | [id number] | | Gentamicin - | | Foot | | | 2020 | 355 / | | [id number]: Qty: 2 on | | | | | | /[id number] | | 09/04/2019 by Elan, | | | | | | [id number] | | Olivier Mills MD at [facility] | | | | | | | | INPATIENT REV LOC | | | | | | | + +------+--------+ +--------+--------+--------+ | Nail 11.5mm 16cm Right | | Right: | OMI & | | 11/14/ | [id number] | | Hindfoot Trigen | | Foot | NEPHEW | | 2030 | 16R / | | Intramedullary Fusion - | | | | | | /20AM0 | | [id number]: Qty: 1 on | | | | | | [id number] | | 06/08/2020 by Marty Fam | | | | | | | | MD Marixa at [facility] INPATIENT REV | | | | | | | | LOC | | | | | | | + +------+--------+ +--------+--------+--------+ | Screw Bone 5mm 70mm Trigen | | Right: | OMI & | | 02/09/ | [id number] | | Femur Low Profile - | | Foot | NEPHEW | | 2029 | 70 / | | [id number]: Qty: 1 on | | | | | | /20DM0 | | 06/08/2020 by Marty Fam | | | | | | [id number] | | MD Marixa at [facility] INPATIENT REV | | | | | | | | LOC | | | | | | | + +------+--------+ +--------+--------+--------+ | Screw Bone 5mm 37.5mm Trigen | | Right: | OMI & | | | [id number] | | Femur Low Profile - | | Foot | NEPHEW | | | 37 / | | [id number]: Qty: 1 on | | | | | | /[id number] | | 06/08/2020 by Marty Fam | | | | | | [id number] | | MD Marixa at [facility] INPATIENT REV | | | | | | | | LOC | | | | | | | + +------+--------+ +--------+--------+--------+ | Screw Bone 5mm 85mm Trigen | | Right: | OMI & | | 12/09/ | [id number] | | Femur Low Profile - | | Foot | NEPHEW | | 2030 | 85 / | | [id number]: Qty: 1 on | | | | | | /20AM2 | | 06/08/2020 by Marty Fam | | | | | | 0280 | | MD Marixa at [facility] INPATIENT REV | | | | | | | | LOC | | | | | | | + +------+--------+ +--------+--------+--------+ | Screw Bone 5mm 30mm Trigen | | Right: | OMI & | | 01/15/ | [id number] | | Femur Low Profile - | | Foot | NEPHEW | | 2029 | 30 / | | [id number]: Qty: 1 on | | | | | | /20CM0 | | 06/08/2020 by Marty Fam | | | | | | 8660 | | E, MD at [facility] INPATIENT REV | | | | | | | | LOC | | | | | | | + +------+--------+ +--------+--------+--------+ | Screw Bone 5mm 30mm Trigen | | Right: | OMI & | | 03/03/ | [id number] | | Femur Low Profile - | | Foot | NEPHEW | | 2029 | 30 / | | [id number]: Qty: 1 on | | | | | | /20DM1 | | 06/08/2020 by Marty Fam | | | | | | 4462 | | E, MD at [facility] INPATIENT REV | | | | | | | | LOC | | | | | | | + +------+--------+ +--------+--------+--------+ + +------+--------+ +--------+--------+--------+ | Explanted | Type | Area | Manufacture | Device | Shelf | Model | | | | | r | | Expira | / | | | | | | Identi | tion | Serial | | | | | | fier | Date | / Lot | + +------+--------+ +--------+--------+--------+ | Pin Fixation 225mm 6mm | | Right: | [employer] | | | 294.95 | | Steinmann Stainless Steel | | Ankle | | | | 0 / / | | Transfixation Nonsterile - | | | | | | | | [id number]: Qty: | | | | | | | | 1Explanted: Qty: 1 on | | | | | | | | 06/02/2020 at [facility] INPATIENT | | | | | | | | REV LOC | | | | | [...] + + from Last 3 Months Results CBC (HEMOGRAM) ONLY (06/11/2020 6:14 AM PDT)Only the most recent of 10 results within the time period is included. + + + + + + | [...] | + + + + + | [facility] | [address] | [place] [address] | | | SERVICES, CORE | [address] | | | + + + + + BASIC METABOLIC SET (NA, K, CL, TCO2, BUN, CR, GLU, CA) (06/11/2020 6:14 AM PDT)Only the m kaykay recent of 4 results within the time period is included. + +---------+ + + + | Component [...] | | | LABORATORY | | | PERUVIAN | | | SERVICES, | | | [...] | + + + + + | [facility] | [address] | [place] [address] | | | SERVICES, CORE | [address] | | | + + + + + COVID-19, PCR (06/10/2020 1:02 PM PDT)Only the most recent of 3 results within the time eddie soto is included. + + + + + + | [...] | | its performance characteristics determined by [facility] [employer]. It | | | has not been [...] | + + + + + | [facility] | [address] | [place] [address] | | | MICROBIOLOGY LAB | [address] | | | + + + + + | [facility] | [address] | [place], [place] | | | MICROBIOLIGY LAB | [address] | [address], | | + + + + + HEPARIN, EITHER STANDARD / LMW, BLOOD (06/09/2020 3:25 AM PDT)Only the most recent of 11 r esults within the time period is included. + +-------+ + + + | Component [...] | + + + + + | [facility] | [address] | [place] [address] | | | SERVICES, CORE | [address] | | | + + + + + PROCEDURE NOTE (06/08/2020 3:44 PM PDT)CAPILLARY BLOOD GLUCOSE (NO CHG), POC (06/08/2020 1 1:08 AM PDT)Only the most recent of 3 results within the time period is included. + +-------+ + + + | Component [...] [facility] | [address] | [place], [place] | | | [facility] | [address] | [address] | | | TESTS | | | [...] + + PROCEDURE NOTE (06/08/2020 9:09 AM PDT)ETT (06/08/2020 9:09 AM PDT) + + + [...] with glidescope. | | + + + C-REACTIVE PROTEIN (06/08/2020 6:30 AM PDT)Only the most recent of 2 results within the period is included. + + + + + + | [...] | + + + + + | [facility] | [address] | [place] [address] | | | SERVICES, FERMÍN | [address] | | | + + + + + ANTIBODY SCREEN (06/08/2020 6:30 AM PDT)Only the most recent of 2 results within the time period is included. + + + + + + | [...] [facility] | [address] | [place] [address] | | | SERVICES, | [address] | | | | TRANSFUSION MEDICINE | | | | + + + + + ABO & RH TYPE (06/08/2020 6:30 AM PDT)Only the most recent of 2 results within the time eddie soto is included. + + + + + + | [...] + + + + + | [facility] | [address] | [place] [address] | | | VJ, | [address] | | | | TRANSFUSION MEDICINE | | | | + + + + + CARDIOLOGY (06/08/2020)Only the most recent of 2 results within the time period is included . + + + | Narrative | Performed At | + + + | | | + + + DIGOXIN, PLASMA (06/06/2020 6:12 AM PDT)Only the most recent of 2 results within the time period is included. + +---------+ + + + | Component [...] | + + + + + | [facility] | [address] | [place] [address] | | | SERVICES, CORE | [address] [...] [facility] | [address] | [place] [address] | | | SERVICES, CORE | [address] [...] [facility] | [address] | [place] [address] | | | SERVICES, CORE | [address] [...] | + + + + + | [facility] | [address] | [place] [address] | | | SERVICES, CORE | [address] [...] [facility] | [address] | [place] [address] | | | SERVICES, CORE | [address] [...] not detected. The performance of the | [facility] | | INDUSTRIAL MAINTENANCE TECHNICIAN HIV Combo test, with or without confirmation, [...] | + + + + + | [facility] | [address] | [place] [address] | | | SERVICES, SPECIAL | [address] | | | | IMM + COAG | | | | + + + + + X-RAY ANKLE 3 VIEWS RIGHT (06/02/2020 8:55 PM PDT)Only the most recent of 3 results within the time period is included. + + | Specimen | + + [...] | | | + +---------+ + + APTT (ACT. PART. THROMBO TIME) [...] Range: (75 - 120) sec Heparin | [place] [place]AL[place] | | levels of 0.35 - 0.7 U/mL | | + + + + + + + + | Performing | Address | City/State/Zipcode | Phone Number | | Organization | | | | + + + + + | [facility] | [address] | [place] [address] | | | [place] | [address] [...] Performed At | + -+ + | [facility] | [facility] | | [facility]ch[facility] [address] | CARDIOLOGY | | [place], [place] [address] Ph: | | | Pt Name: DIANE AN | | | Study Date/Time 06/02/2020 / 4:29:48 PMMRN: [id number] | | | Most recent prior: -Acc #: [id number] | | | No. previous echos: 0DOB: 1950 70 years Heart Rate: | | | 75 bpmHeight: 71.0 in Blood Pressure: | | | 146/67 mm/HgWeight: 190.0 lb Gender: | | | MBSA: 2.06 m | | | Order ID: [id number] Study | | | [facility] Pricila Trent [facility]ITReferring Provider: COLEMAN Jones | | | ATKINModalities Performed: 2D, [...] | | | been obtained from the [facility] Transthoracic Echocardiographic Report | | | + [...] respectively. The DVI is 0.30. The calculated CALI is 1.23 cm | | | using [...] Report | | | electronically signed by: [id number] Yani Parra MD (06/02/2020, | | | [...] | | | |Report electronically signed by: [id number] Yani Parra MD (06/02/2020, 5:15:57 PM) | | | | | | | | | | | | Final | | + -+ + + + | Procedure Note | + + | Interface, Cardiology Results - 06/02/2020 5:16 PM [facility] | | [facility] Echocardiography Laboratory [address] [place] [address] | | [place], [place] [address] Pt Name: DIANE | | NATALIYA Study Date/Time 06/02/2020 / 4:29:48 PMMRN: [id number] | | Most recent prior: -Acc #: [id number] No. previous echos: 0DOB: | | 1950 70 years Heart Rate: 75 bpmHeight: 71.0 in Blood | | Pressure: 146/67 mm/HgWeight: 190.0 lb Gender: MBSA: | | 2.06 m | | Order ID: [id number] [facility] [place] | | [facility] Provider: COLEMAN Sawyer Performed: 2D, Color flow, | | [...] respectively. The DVI is 0.30. The calculated CALI is 1.23 | | cm | | [...] and indexed values Report electronically signed by: [id number] | | Yani Parra MD (06/02/2020, 5:15:57 [...] | | | |Report electronically signed by: [id number] Yani Parra MD (06/02/2020, 5:15:57 PM) | | | | | | | | Final | + + + + + + + | Performing | Address | City/State/Zipcode | Phone Number | | Organization | | | | + + + + + | [facility] | [address] | [place], [place] | | | CARDIOLOGY | [address] | [address] | | + + + + + ETT (06/02/2020 1:50 PM PDT) + + [...] Type Catheter: Arrowkit | | | Indication: [id number] blood pressure monitoring Location | | | [...] Hernandez MD | | + + + VASC LAB VENOUS DUPLEX LOWER [...] Note | + + | Service Account, [email or web address] In Interface - 06/02/2020 11:29 AM PDT [...] BACTI & YEAST [facility] (06/02/2020 6:29 AM PDT)Only the most recent of 2 result s within the time period is included. + + + + + + | [...] | + + + + + | [facility] | [address] | [place] [address] | | | SERVICES, CORE | [address] [...] | + + + + + | [facility] | [address] | [place] [address] | | | SERVICES, CORE | [address] [...] | + + + + + | [facility] | [address] | [place] [address] | | | SERVICES, SPECIAL | [address] [...] | | | | | determined by [facility] | | | | | | Laboratories. See | | | | | | Compliance Statement B: | | | | | | [employer]/CSPerformed | | | | | | By: [employer] | | | | | | [facility] | | | | | | [place], [place] [address]Xcuchppnlo | | | | | | Director: [...] [facility] | [address] | [place], [place] | | | UN[facility] | | [address] | | + + + + + [...] [facility] | [address] | [place] [address] | | | SERVICES, CORE | [address] [...] | + + + + + | [facility] | [address] | [place] [address] | | | SERVICES, CORE | [address] [...] Fact sheet for patients: | | | https://www.fda.gov/media/480178/download | | + + + + + + + + | Performing | Address | City/State/Zipcode | Phone Number | | Organization | | | | + + + + + | [facility] | [address] | [place] [address] | | | SERVICES, CORE | [address] [...] [facility] | [address] | [place] [address] | | | SERVICES, CORE | PARK [...] + | [facility] | [address] | [place] [address] | | | SERVICES, CORE | P[address] [...] + + + + + | [facility] | [address] | [place] [address] | | | SERVICES, CORE | [address] [...] [facility] | | considered for monitoring long filler cigar roller machine glycemic control in patients with: | LABORATORY [...] | + + + + + | [facility] | [address] | [place] [address] | | | SERVICES, SPECIAL | [address] | | | | IMM + [...] presented. Final signature: Bernarda | | | Gnee Street MD 06/02/2020 8:14 AM Preliminary: Varun Augustin MD | | | Dictation initiated: Varun Augustin MD 06/02/2020 7:43 AM | | + + + + -----+ | Procedure Note | + -----+ | Service Account, [employer] In Interface - 06/02/2020 8:15 AM [...] | | | + +---------+ + + 12 LEAD ECG (06/01/2020 11:04 [...] + + + + + + | [facility] | 403 | ms | [facility] [...] DEPT OF | [address] | [place], [place] | | | CARDIOLOGY | [address] | [address] | | + + + + + RAINBOW HOLD TUBE - BLUE TOP (06/01/2020 10:37 PM PDT) + + | Specimen | + + | Blood - Blood | | (substance) | + + + + + + + | Performing | Address | City/State/Zipcode | Phone Number | | Organization | | | | + + + + + | [facility] | [address] | [place] [address] | | | SERVICES, CORE | [address] [...] mech. valves (2.5 - 3.5) INR | VJ, CORE | + + + + + + + + | Performing | Address | City/State/Zipcode | Phone Number | | Organization | | | | + + + + + | [facility] | [address] | [place] [address] | | | SERVICES, FERMÍN | [address] [...] | | | LABORATORY | | | PERUVIAN | | | SERVICES, | | | [...] MDRD equation recommended by the National | [facility] | | Kidney Disease Education Program. Estimated [...] | + + + + + | [facility] | [address] | [place] [address] | | | SERVICES, CORE | [address] [...] + | [facility] | [address] | [place] [address] | | | SERVICES, | [address] | | | | TRANSFUSION MEDICINE | | | | + + + + + ED INFORMATION EXCHANGE (06/01/2020 10:14 PM PDT) + + | Specimen | + + | | + + + + + | Narrative | Performed At | + + + | COLLECTIVE?NOTIFICATION?06/01/2020 22:14?DIANE AN?MRN: | COLLECTIVE | | [id number] Criteria Met 5 Visits In 12 Months [...] Drug | | | Description Qty. Prescriber MED 2020-04-19 GABAPENTIN 600 MG | | [...] 5 MG | | | TABLET 30 [facility] 2 28.125 Rx Summary Metric Count CS II-V | | | Rx 1 CS-II Rx 1 Quantity Dispensed 390 [facility] 2 | | | [facility] Pharm[facility] 2 Benzos 0 Opioids 1 Long Acting Opioids 0 | | | E.D. Visit Count (12 mo.) Facility Visits [facility] and | | | [facility] 2 [facility] 3 Total 5 Note: | | | Visits indicate total known visits. Recent Emergency Department | | | Visit Summary Date Facility [facility] Type Diagnoses or Chief | | | Complaint Jun 01, 2020 [facility] [place] | | | [place] Emergency 10,151. Righrt ankle fracture and dislocation | | | Jun 01, 2020 [facility] [place] Emergency Chief | | | Complaint: LEG [facility]/ NON INJUR[facility] 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 Emergency 10,151. cellulitis large ulcer, left lower | | | extremity 18,400. Other specified soft tissue disorders | | | 18,400. Infection and inflammatory reaction due to other internal ort | | | 18,400. Cutaneous abscess, unspecified Sep 03, 2019 [facility] | | | [facility] 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 Internal Medicine 18,400. Cutaneous abscess, | | | unspecified 18,400. Other specified soft tissue disorders | | | 18,400. Osteomyelitis, unspecified 18,400. Infection and | | | inflammatory reaction due to other internal ort Care Team | | | Provider Specialty Phone Fax Service Dates Unknown Jail | | | Facility Current [facility]IO [facility] , | | | Family Medicine Sep 11, 2018 - | | | Current [employer] [facility] This patient has registered at the | | | [facility] Emergency Department For more | | | information visit: | | | [email or web address] | | | [id number] PLEASE NOTE: 1. Any care recommendations [...] the limitations of applicable | | | [employer] Policies. 3. You should consult directly with the | | | organization that provided a care guideline or other clinical | | | history with any questions about additional information or accuracy | | | or completeness of information provided. ? 2020 [employer] | | | [employer]. - [email or web address] | | + + + + + [...] HCL | | 5 MG TABLET 30 [facility] 2 28.125 Rx SummaryMetric Count CS II-V Rx 1 CS-II Rx 1 | | Quantity Dispensed 390 [facility] 2 [facility] 2 Benzos 0 Opioids 1 Long | | Acting Opioids 0 E.D. Visit Count (12 mo.)Facility Visits [facility] | | [place] 2 [facility] 3 Total 5 Note: Visits indicate total known | | visits. Recent Emergency Department Visit SummaryDate Facility City State Type | | Diagnoses or Chief Complaint Jun 01, 2020 [facility] [place] | | Emergency 10,151. Righrt ankle fracture and dislocation Jun 01, 2020 [facility] . | | [place] Emergency Chief Complaint: LEG PAIN/ NON INJURY May 24, 2020 [facility] | | [place] Emergency Localized edema Heart failure, unspecified | | Type 2 diabetes mellitus with diabetic polyneuropathy Pain in right lower leg | | Hypertensive heart disease with heart failure ocean transportation intermediary (current) use of aspirin | | Other fdc (current) drug therapy Unspecified atrial fibrillation Sep 03, 2019 | | [facility] [place] Emergency 10,151. cellulitis large | | ulcer, left lower extremity 18,400. Other specified soft tissue disorders 18,400. | | Infection and inflammatory reaction due to other internal ort 18,400. Cutaneous | | abscess, unspecified [facility] 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 | | Internal Medicine 18,400. Cutaneous abscess, unspecified 18,400. Other specified | | soft tissue disorders 18,400. Osteomyelitis, unspecified 18,400. Infection and | | inflammatory reaction due to other internal ort Care TeamProvider Specialty Phone Fax | | Service Dates Unknown Jail Facility Current | | RIO HUERTA MD Family Medicine Sep 11, 2018 - | | Current [employer] PortalThis patient has registered at the [facility] | | [place] Emergency Department For more information visit: | | [email or web address] PLEASE | | NOTE: 1. Any care [...] completeness of information | | provided.? 2019 [employer]. - [email or web address] | |Jun 01, 2020 [facility] [place] Emergency | | 10,151. Righrt ankle fracture and dislocation | | | |Jun 01, 2020 [facility] [place] [place] Chief Complaint: LEG PAIN/ NON INJURY | |May 24, 2020 [facility] [place] [place] Emergency | | Localized edema | | Heart failure, unspecified | | Type 2 diabetes mellitus with diabetic polyneuropathy | | Pain in right lower leg | | Hypertensive heart disease with heart failure | | ocean transportation intermediary (current) use of aspirin | | Other long filler cigar roller machine (current) drug therapy | | Unspecified atrial fibrillation | | | |Sep 03, 2019 [facility] [place] Emergency | | 10,151. cellulitis large ulcer, left lower extremity | | 18,400. Other specified soft tissue disorders | | 18,400. Infection and inflammatory reaction due to other internal ort | | 18,400. Cutaneous abscess, unspecified | | | |Sep 03, [address] [facility] 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 Internal Medicine | | 18,400. Cutaneous abscess, unspecified | | 18,400. Other specified soft tissue disorders | | 18,400. Osteomyelitis, unspecified | | 18,400. Infection and inflammatory reaction due to other internal ort | | | | | | | |Care Team | |Provider Specialty Phone Fax Service Dates | |Unknown Jail Facility Current | |RIO HUERTA MD Family Medicine Sep 11, 2018 - Current | | | |[employer] Portal | |This patient has registered at the [facility] Emergency Departmen t | |For more information visit: [email or web address] | |PLEASE NOTE: | | 1. Any [...] information provided. | | | |? 2020 [employer]. - [email or web address] | + + + + + + + | Performing | Address | City/State/Zipcode | Phone Number | | Organization | | | | + + + + + | [facility] | [address] | [place], [place] | [phone] | | [employer] | [address] | [address] | | + + + + + [...] + +--------+ | MEDICARE | MEDICA | [id number] | 12/13/19 | [phone] | [address] | Medica | | | RE A & | | 07-Pre | 1 | [address] | re | | | B | | sent | | [place], [place] | | | | | | | | [address] | | + +--------+ +--------+ + +--------+ | MODA MEDICARE | MODA | [id number] | 11/01/ | [phone] | [address] | POS | | SUPPLEMENT | MEDICA | | 2015-P | 4 | [id number] | | | | RE | | resent | | [place], | | | | SUPPLE | | | | [place] [address] | | | | MENT | | | | | | + +--------+ +--------+ + +--------+ + +--------+ +--------+ + + | Guarantor Name | Accoun | Relation to | Date | Phone | Billing Address | | | t Type | Patient | of | | | | | | | | | | + +--------+ +--------+ + + | Diane An | Person | Self | [birth year] | [address] | | | al/Fam | | 1950 | [phone] | [place] [address] | | | ursula | | | 9 (Home) | | + +--------+ +--------+ + + Advance Directives + + + + + | Code Status | Date | Date | Comments | | | Activated | Inactivated | | + + + + + | Full Code | 06/02/2020 | 06/11/2020 | | | | 6:05 AM | 4:25 PM | | + + + + + + + + +---+ | | | | | + + + +---+ | Full Code | 09/04/2019 | 09/17/2019 | | | | 2:39 AM | 6:13 PM | | + + + +---+
--- OUTSIDE RECORDS SUMMARY | ~2020-08-04 | XMS | Encounter Summary ---
Demographics + + + | Address | [address] | | | [place] [address] | + + + | Home Phone | | + + + | Preferred Language | Unknown | + + + | Marital Status | Single | + + + | Rastafarian Affiliation | NRP | + + + [...] Providers + +------+ + | Care Patient Support Assistant Name | Role | Phone | [...] Lazaro | | | | | [facility] | [address] | | | | | Hospital Admitting | [place], [place] | | | | | Desk Located on the | [address] | | | | | 9 floor | [phone] | | | | | [place], [place] | | | | | | [address] | | | +--------+ + + + [...] | | Oral; Cuffed; 09/06/19; 1353 | INSTRUCTOR WATCH ASSEMBLY | INSTRUCTOR WATCH ASSEMBLY | +--------+ + + + | Periph | 09/06/19; 1141; Sharif Gerber INSTRUCTOR WATCH ASSEMBLY; | 09/06/19 1141 by | 09/08/19 1256 by | | eral | Right; Hand; 18 g; Positive; | Rolanda Gerber, | Blair Brewer RN | | IV | 09/08/19; 1256; Catheter damage, | INSTRUCTOR WATCH ASSEMBLY | | | | Site problems, No [...] encounter OR Notes Anesthesia Postprocedure Evaluation - Lo Fagan MD - 09/06/2019 2:52 PM PDTFormat ting of this note might be different from the original. Monty Tellezears [id number] Vitals Value Taken Time BP 91/61 09/06/2019 2:46 PM Temp 36 C (96.8 F) 09/06/2019 2:04 PM Pulse 73 09/06/2019 2:52 PM Resp 17 09/06/2019 2:52 PM SpO2 98 % 09/06/2019 2:52 PM Vitals shown include unvalidated device data. EVALUATION VS (BP, HR, RR, SpO2, and Temp) and hydration status are stable ROS including Cards, Resp, Neuro, and GI without evidence of adverse effects No PONV Pain controlled No altered mental status COMPLICATIONS No adverse events nesthesia Procedur e Notes - Rolanda Gerber CRNA - 09/06/2019 12:09 PM PDTAssociated Order(s): DEE MCGOVERN - ETT Time of Placement: 09/06/2019 11:36 AM Intubation Reason: For surgical procedure Positioning: Supine Location Performed:OR OXYGENATION Patient was preoxygenated Grade: Grade 2 - Ventilated by mask with oral airway/adjuvant Induction:Routine, without Cricoid Pressure INTUBATION ATTEMPT 1 Blade Type: Romero Blade #: 2 Laryngoscopic View: Grade II Surgical Airway: no Surgical Airway ETT DETAILS ETT Type:Standard, Hi-Lo Cuffed Intubation Type: Oral Cuff Status: Cuffed Size: 7.5 ETT secured with adhesive tape Depth at Lip: 23 cm Airway Leak: No CONFIRMATION Number of Attempts: 1 Atraumatic placement Positive for EtCO2:Waveform capnography Breath Sounds: Bilateral and equal NARRATIVE Attending was physically present for the critical portions of the procedure as described in the procedure note Attending/Authorizing Provider: Lo Fagan MD Performing Provider: Rolanda Gerber CRNA Procedure Comments: Grade 3 view, 2-3 with BURP, consider using glidescope with next DL nesthesia Preproce dure Evaluation - Lo Fagan MD - 09/06/2019 10:48 AM PDTFormatting of this note rene ht be different from the original. 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 No pertinent past surgical history. [...] mouth once daily. Within last 7 days Lab Results Component Value Date RATE 96 09/04/2019 ATRIALRATE 126 09/04/2019 QRS 86 09/04/2019 QT 402 09/04/2019 RAXIS -75 09/04/2019 ANESTHESIA PLAN ASA 3 NPO Status: NPO by protocol ANESTHETIC TECHNIQUE Technique Used: General MONITORS/LINES TO BE USED Standard POSTOP PAIN IV analgesics Oral analgesics BLOOD PRODUCTS None ordered INFORMED CONSENT PARQ and risks/benefits of anesthetic plan discussed with Patient Additional Consent Issues: Risk/benefit of blood products discussed Dental Risk discussed with patient PATIENT'S CODE STATUS IN OR FULL - full code documented in this encounter Miscellaneous Notes PMC/ANE PreOp Note - Lo Fagan MD - 09/06/2019 9:08 AM PDTROS: HPI: Monty An is an 69 y.o. M with necrotising soft tissue infection of the left lower ext remity 2/2 hardware exposure who is scheduled to undergo wound debridement. PMHx is additionally notable for: - Atrial [...] Neuromuscular Conditions pain Current pain scor e: 1 Pre-existing neuropathy Musculoskeletal: no arthritis Heme/Onc: Pt. 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 No clott ing disorders Hemoglobin Disorders anemia Skin: open wounds Active Skin Infections AutoImmune Disorders: No autoimmune disorders Physical Exam General: Appearance: Age appropriate, No distress and Smiling LOC: Alert HEENT: Normocephalic/Atraumatic Airway: Dentition: dentition is normal Mallampati: 2 Mouth Opening: > 3 cm TM Distance:> 6 cm C-Spine ROM: Normal Neck Anatomy: Normal Jaw Protrusion: Limited (lower incisors only meet upper incisors) Pulmonary: Respiratory: pulmonary exam normal Breath Sounds: breath sounds normal Cardiovascular: Rhythm: Regular Rate: Normal documented in this encounter Plan of Treatment [...] Provider: Lo Fagan MD Performing Provider: Rolanda Gerber, | | | INSTRUCTOR WATCH ASSEMBLY Procedure Comments: Grade 3 view, 2-3 with [...]
--- OUTSIDE RECORDS SUMMARY | ~2020-08-04 | XMS | Encounter Summary ---
Demographics + + + | Address | [address] | | | [place] [address] | + + + | Home Phone | | + + + | Preferred Language | Unknown | + + + | Marital Status | Single | + + + | Anabaptist Affiliation | Unknown | + + + | Race | White | + + + | Ethnic Group | Not or | + + + Author + + + | Author | [facility] | | | and [place] | + + + | Organization | [facility] | | | and [...] Team Providers + +------+ + | Care Loin Trimmer Name | Role | Phone | + [...] | | | | us aureus | [address] | | | | | | infection, | [place], [place] | | | | | | unspecified | [address] | | | | | | site | Phone: | | | | | | Chronic | [phone] | | | | | | multifocal | Fax: | | | | | | osteomyeliti | [phone] | | | | | | s, multiple | | | | | | | sites (HCC) | | | | | | | S.aureus & | | | | | | | E.faecalis, | | | | | | | left leg | | | | | | | Procedures | | | | | | | GA OFFICE | | | | | | | OUTPATIENT | | | | | | | VISIT 25 | | | | | | | MINUTES | | | +--------+--------+ + + + + Encounter Details +--------+---------+ + + + | Date | Type | Department | Care Team | Description | +--------+---------+ + + + | 09/29/ | Office | [facility] | Jaspreet Gunderson, | Necrotizing soft | | 2019 | Visit | INFECTIOUS DISEASE | Liang Quintana MD | tissue infection | | | | [address] | [address] | (Primary Dx); | | | | [place], [place] | [place] [address] | Necrotizing | | | | [address] | [phone] | fasciitis of lower | | | | [phone] | | leg ([facility]); Infected | | | | | | orthopedic implant, | | | | | | initial encounter | | | | | | ([facility]); Polymicrobial | | | | | | bacterial | | | | | | infection; assisted | | | | | | (current) [...] an active role in your treatment. A [facility] [employer] gs your supplies, and a nurse shows [...] the pump comes on. Date Last Reviewed: 04/12/201819997108-5858 [facility]. [address] [place] [address]. All righ ts reserved. This information is [...] spreading among healthy children and adults outside [facility] healthcare system. A person may be a [...] condition or its treatment Living in a fpc or long-term care facility Recent antibiotic therapy Diabetes Kidney dialysis HIV infection Injection drug use or sharing needles Long Term or skilled nursing time Living in any crowded facility, such [...] Outside healthcare settings, MRSA usually spreads through qfjx-gl-nbqk contact, shared t owels or athletic equipment, [...] soap and water or an alcohol-based hand hand bobbin cleaner before and after treating each patient. [...] water aren't available, use an alcohol-based hand hand bobbin cleaner. ? Squeeze about a tablespoon of hand bobbin cleaner into the palm of one hand. ? Rub your hands together briskly, cleaning the backs of your hands, the palms, between you r fingers, and up the wrists. ? Rub until the hand bobbin cleaner is gone and your hands are completely dry. Keep cuts and scrapes clean and covered until they heal. Avoid contact with the wounds or bandages of others. Avoid sharing towels, razors, clothing, and athletic equipment. Date Last Reviewed: 08/12/201619994378-1065 [employer]. [address] [place] [address]. All righ ts reserved. This information is not intended as a substitute for professional medical care. Always follow your healthcare professional's instructions. documented in this encounter Progress Notes Liang Cho MD - 09/29/2019 1:00 PM PST [facility] Service: Infectious Diseases Initial Outpatient [...] had apparently some cultures obtained at his [facility] facility which were reportedly negative. Prior [...] file Gets together: Not on file Attends alevism service: Not on file Active member of [...] note for Providers Interpretation. Confirmed by [facility] [place] Read Only, CLEOPATRA Hardy ([id number]), editor publications [...] for Providers Interpreta tion. 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 | Twice weekly for 4 | | Metabolic Panel | | e | (current) use of | Occurrences starting | | | | | antibiotics MRSA | 09/29/2019 until | | | | | infection | 09/29/2020 | + +------+--------+ + + | Vancomycin, Trough | 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 | 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 | Twice weekly for 4 | | | | e | (current) use of | Occurrences starting | | | | | antibiotics MRSA | 09/29/2019 until | | | | | infection | 09/29/2020 | + +------+--------+ + + | C-Reactive Protein | 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
--- OUTSIDE RECORDS SUMMARY | ~2020-08-04 | XMS | Encounter Summary ---
Demographics + + + | Address | [address] | | | [place] [address] | + + + | Home Phone | | + + + | Preferred Language | Unknown | + + + | Marital Status | Single | + + + | Christianity Affiliation | Unknown | + + + | Race | White | + + + | Ethnic Group | Not or | + + + Author + + + | Author | [facility] | | | and [place] | + + + | Organization | [facility] | | | and [...] Providers + +------+ + | Care Health Record Technician Name | Role | Phone | [...] Balwinder | | | | | [address] | [address] [place], [place] | | | | | [place], [place] | [address] | | | | | [address] | | | | | | [phone] | | | +--------+ + + + [...] | color flow Doppler was perfomed at [facility]. Study: This | | | [...] TR | | | Vmax: 2.46 m/s Communication Lecturer: MISTY Authenticated by: JOHN | | | MD LUANA Report Date/Time: 05-01-2017 17:57:56 | | + + + + + | Procedure Note | + + | Valdemar, Rad Conversion - 07/03/2019 8:21 PM PDT Patient Name: Miladis An of [...] flow Doppler was perfomed | | at [facility].Study: This was a technically adequate [...] mlLAESV Index (A-L): 31.24 ml/m2LAAs A2C: 19.15 [id number] A-L | | A2C: 60.27 mlLALs A2C: 5.16 cmLAAs A4C: 21.74 [id number] A-L A4C: 77.46 mlLALs | | A4C: 5.18 cmRAAs: 16.35 kn2AJMLR A-L: 49.97 mlRAESV MOD: 45.62 mlRALs: 4.54 | | cmAV maxP.86 mmHgAV meanP.31 mmHgAV Vmax: 1.64 m/Brenda Vmean: 1.08 m/Brenda | | VTI: 28.52 cmAVA Vmax: 1.70 cm2AVA (VTI): 2.12 sk4FSNP Vmax: 0.00 cm2/m2AVAI | | (VTI): 0.00 cm2/m2LVOT maxP.90 mmHgLVOT meanP.13 mmHgLVSI Dopp: 27.66 | | ml/m2LVSV Dopp: 60.58 mlLVOT Vmax: 0.68 m/sLVOT Vmean: 0.50 m/sLVOT VTI: 14.83 | | cmMV E Elliot: 1.12 m/sMV DecT: 129.17 msTR maxP.27 mmHgTR Vmax: 2.46 m/s | | Communication Lecturer: DBSAuthenticated by: Dagoberto TORIBIO Date/Time: 05-01-2017 17:57:56 [...] |TR Vmax: 2.46 m/s | | | |Communication Lecturer: DBS | |Authenticated by: JOHN CRAFT MD [...]
--- OUTSIDE RECORDS SUMMARY | ~2020-08-04 | XMS | Encounter Summary ---
Demographics + + + | Address | [address] | | | [place] [address] | + + + | Home Phone [...] Team Providers + +------+ + | Care Track Announcer Name | Role | Phone | + +------+ + | Dustin Perez MD | PCP | | + +------+ + Encounter Details +--------+ + + + + | Date | Type | Department | Care Team | Description | +--------+ + + + + | 06/14/ | Patient | [facility] | Ld Rodriguez RN | | | 2020 | Outreach | Therapy Services at | [address] | | | | | [facility] | [address] [place] | | | | | [address] | [place] [address] | | | | | [facility] | [phone] | | | | | and Healing, | | | | | | [facility], | | | | | | Floor [place], [place] | | | | | | [address] | | | | | | [phone] | | | +--------+ + + + [...] Telephone Encounter - Ld Rodriguez RN - 06/14/2020 9:06 AM PDT[facility] Arrived [facility] on 06/11. They are familiar with him from 2 prvious SNF days. Plan is to discharge in 14 days 06/25 is projected date and transition to . Seen by PT, OT, OPERATING SYSTEMS SPECIALIST. Pain is very well controlled. Bursing states dressing is intact. Will be NWB on R foot for another 10 days. Will continue to follow for reainder of 90 day period. Ld Rodriguez BSc, BSN, MANDO [facility] CJR/WALT Rn Clinical Appeals C: [phone] Pager: [phone] @[email or web address] Mail Code: [facility] 8L documented in [...]
--- OUTSIDE RECORDS SUMMARY | ~2020-08-04 | XMS | Encounter Summary ---
Demographics + + + | Address | [address] | | | [place] [address] | + + + | Home Phone | | + + + | Preferred Language | Unknown | + + + | Marital Status | Single | + + + | Episcopal Affiliation | Unknown | + + + [...] Team Providers + +------+ + | Care Wrecker Driver Name | Role | Phone | + [...] + + | 10/29/ | Telephone | [facility] | Scotty Donovan DO | Coordination Of Care | | 2019 | | INFECTIOUS DISEASE | [address] | | | | | [address] | [place] [address] | | | | | [place], [place] | [phone] | | | | | [address] | | | | | | [phone] | | | +--------+ + + + [...] IV antibiotic s list. elephone E Beatriz Cruz, Toll Bridge Attendant - 10/29/2019 3:08 PM PSTPatient to end Antibiot ics on 10/31. Order to D/C picc line on 10/31 send with Patient to [place]ta. Beatriz Patel. CMA docum ented in this encounter Plan of Treatment Not on filedocumented as of this encounter Visit Diagnoses Not on filedocumented in this encounter"
--- OUTSIDE RECORDS SUMMARY | ~2020-08-04 | XMS | Encounter Summary ---
Demographics + + + | Address | [address] | | | [place] [address] | + + + | Home Phone [...] Author + + + | Author | [facility] | + + + | Organization | [facility] | + + + | Address [...] Team Providers + +------+ + | Care Qa Analyst Name | Role | Phone | [...] + + | 09/03/ | Hospital | [facility] [address] | Ariana Guillen, | | | 2019 - | Encounter | [address] | [address] | | | | | 12/S31 [facility] | [address] | | | 09/17/ | | [facility] [place], | [place], [place] | | | 2019 | | [place] [address] | [address] | | | | | [phone] | [phone] | | | | | | | | | | | | Tiffanie Huerta, | | | | | | [address] | | | | | | [address] | | | | | | [place], [place] | | | | | | [address] | | | | | | [phone] | | | | | | | | | | | | Abhilash Fatima MD | | | | | | [address] | | | | | | [facility], | | | | | | [place] [address] | | | | | | [phone] | | | | | | | | | | | | Elizabeth Cobos, | | | | | | [address] | | | | | | [place] [address] | | | | | | [phone] | | | | | | | | | | | | To Henriquez MD | | | | | | [address] | | | | | | [facility], | | | | | | [place] [address] | | | | | | [phone] | | | | | | | [...] Hemphill MD - 09/17/2019 12:07 PM PST [facility] Discharge Summary Discharging Provider: Johnathan Hemphill MD Discharging Attending Physician: To Henriquez MD PCP: Rio Huerta MD Admission Date: 09/03/2019 Discharge Date: 09/17/2019 Hospital Stay: 14 day(s) Discharge Location: [facility] [phone] [facility] FOLLOW UP NEEDS: 1) Infectious Disease, [facility], [place], ~10/08/2019 2) Orthopedi cs, [facility] Principal Diagnosis: #) Necrotizing soft tissue [...] hindfoot. 5. Placement of an external tissue component overhaul operator, area other than breast. 6. Placement [...] vancomycin trough levels - ID F/U in [place], ~10/08 timeframe - Wound check and suture removal by 09/26/2019; OK for SNF to remove sutures - Ortho F/U ~10/21 timeframe w/ Dr. Carmen in [facility] - Activity restrictions: LLE: NWB, elevated, [place] [...] BLED 4. Former discussion s with his sales promotion manager decided against anticoagulation; on 81 mg [...] follow/manage patient "I certify that post-hospital inpatient prison facility care is medically necessar y on a continuing basis for treatment of the same condition for which inpatient acute hospit al care was received." JOHNATHAN HEMPHILL MD Discharge Destination - Selection Complete Service Provider Request Status Selected Services Address Phone Number Fax Number Hellen Calvillo Selected [facility] [phone], [place] [id number] [facility] No service has been [...] Surgery Why: For wound re-check Contact information [address] [place] [address] [place] [phone] RIO HUERTA MD. Go on 09/24/2019. Specialty: Family Medicine Why: Appt: Tuesday, September 24, 2019 @ 08:40am. Address: [address] [place] [address], [address], [place], [place] Contact information [facility] [address] [place] [address] [place] [address] Surya Coffman MD. Go on 09/30/2019. Why: Appt: Monday, September 30, 2019 @ 09:45am Contact information [address] [place], [place] [phone] Contact information for after-discharge care Discharge Destination Hellen [place] Rajinder . Service: [facility] Contact information [phone] [place] [id number] Discharge Physical Exam: Last 24 hour min/max [...] PGY - 3 | Internal Medicine | [id number] [facility] Associated attestation - To Henriquez MD - [...] Primary Surrogate Decision Maker Josué An son [phone] TO HENRIQUEZ MD [address] resident physician in radiology Division of Hospital Medicine Department of Medicine [facility] [address] [place] [phone] documented in this encounter Discharge Instructions Discharge [...] follow/manage patient "I certify that post-hospital inpatient prison facility care is medically necessar y on [...] (per patient w ++ 1st degree FH) Anvil Worker re: skin/foot care (a la DM) 10) Alcohol use disorder, mild, in sustained remission, abuse 11) Encounter for long-term (current) use of antibiotics SURROGATE DECISION MAKER Surrogate Decision Maker Primary Surrogate Decision Maker Josué An son [phone] TO HENRIQUEZ MD [address] resident physician in radiology Division of Hospital Medicine Department of Medicine [facility] & [address]31 [place] [phone] Amber Wan MD - 1 11/16/2018 7:13 [...] care, follow up recs - follow up: [facility] ID faculty with preference to [...] BLED 4. Former discussion s with his sales promotion manager decided against anticoagulation; on 81 mg aspirin daily (used to be 325 but reduced to 81 2/2 "GI problems"). - held asa in s/o surgery, has been restarted - continue digoxin - goal resting rate <110 # bilateral lower extremity swelling Unclear etiology. Was seeing sales promotion manager who is prescribing torsemide 10 mg [...] Dispo: patient ready to discharge tomorrow to [facility] in [place]. Code Status: Full Code Surrogate Decision Maker Primary Surrogate Decision Maker Josué An son [phone] This patient was staffed with Dr. To Henriquez, who agrees with the assessment and plan unle ss otherwise stated. Amber Niño Internal Medicine, PGY-1 o Henriquez MD - 1 11/15/2018 3:19 PM PST [...] there are not currnet signs of decompensation Anvil Worker on his 'near miss' and importance of good 'liver care' in future 9) Neuropathy, hereditary sensory (per patient w ++ 1st degree FH) Not noted in 'history' but with suggestion of pes cavus, and ++ family history it does r aise the qn of Zpghbti-Mjtsy-Fzawn Could have been contributor to osteo Anvil Worker re: skin/foot care (a la DM) 10) Alcohol use disorder, mild, in sustained remission, abuse 11) Encounter for long-term (current) use of antibiotics SURROGATE DECISION MAKER Surrogate Decision Maker Primary Surrogate Decision Maker Josué An son [phone] TO HENRIQUEZ MD [address] resident physician in radiology Division of Hospital Medicine Department of Medicine [facility] & [address] 12/[address] [phone] Amber Wan MD - 1 11/15/2018 6:26 [...] care, follow up recs - follow up: [facility] ID faculty with preference to [...] BLED 4. Former discussion s with his sales promotion manager decided against anticoagulation; on 81 mg aspirin daily (used to be 325 but reduced to 81 2/2 "GI problems"). - held asa in s/o surgery, has been restarted - continue digoxin - goal resting rate <110 # bilateral lower extremity swelling Unclear etiology. Was seeing sales promotion manager who is prescribing torsemide 10 mg [...] used majority of his medicare SNF days, disease case manager working to determine whethe r paying out of pocket is an option vs investigate other dispo options. Code Status: Full Code Surrogate Decision Maker Primary Surrogate Decision Maker Josué An son [phone] This patient was staffed with Dr. To [...] care, follow up recs - follow up: [facility] ID faculty with preference to [...] BLED 4. Former discussion s with his sales promotion manager decided against anticoagulation; on 81 mg aspirin daily (used to be 325 but reduced to 81 2/2 "GI problems"). - held asa in s/o surgery, has been restarted - continue digoxin - goal resting rate <110 # bilateral lower extremity swelling Unclear etiology. Was seeing sales promotion manager who is prescribing torsemide 10 mg [...] tid - PO challenge of Vit K / 10mg to see if INR corrects Dispo: has used majority of his medicare SNF days, disease case manager working to determine whethe r paying out of pocket is an option vs investigate other dispo options. Code Status: Full Code Surrogate Decision Maker Primary Surrogate Decision Maker Josué An son [phone] This patient was staffed with Dr. To [...] stenosis or insuff iciency: Aug 26, 2018: [facility] [employer]) 7) Essential hypertension 8) "Cirrhosis, Laennec's" (HCC) [...] it does r aise the qn of Twwpexs-Kxzzy-Fribi Could have been contributor to osteo Anvil Worker re: skin/foot care (a la DM) 10) Alcohol use disorder, mild, in sustained remission, abuse 11) Encounter for long-term (current) use of antibiotics SURROGATE DECISION MAKER Surrogate Decision Maker Primary Surrogate Decision Maker Josué An son [phone] TO HENRIQUEZ MD [address] resident physician in radiology Division of Hospital Medicine Department of Medicine [facility] & [address] [place] [address] To Leach MD - 09/13 12:33 PM [...] stenosis or insuff iciency: Aug 26, 2018: [facility]) 7) Essential hypertension 8) "Cirrhosis, Laennec's" (HCC) [...] it does r aise the qn of Wbtbaoq-Nwxbw-Cqtjd Could have been contributor to osteo Anvil Worker re: skin/foot care (a la DM) 10) Alcohol use disorder, mild, in sustained remission, abuse 11) Encounter for long-term (current) use of antibiotics SURROGATE DECISION MAKER Surrogate Decision Maker Primary Surrogate Decision Maker Josué An son [phone] TO HENRIQUEZ MD [address] resident physician in radiology Division of Hospital Medicine Department of Medicine [facility] & [address] [phone] Johnathan Roach MD - 12/2018 11:07 AM [...] care, follow up recs - follow up: [facility] ID faculty with preference to [...] BLED 4. Former discussion s with his sales promotion manager decided against anticoagulation; on 81 mg aspirin daily (used to be 325 but reduced to 81 2/2 "GI problems"). - held asa in s/o surgery, has been restarted - continue digoxin - goal resting rate <110 # bilateral lower extremity swelling Unclear etiology. Was seeing sales promotion manager who is prescribing torsemide 10 mg [...] used majority of his medicare SNF days, disease case manager working to determine whethe r paying out of pocket is an option vs investigate other dispo options. Code Status: Full Code Surrogate Decision Maker Primary Surrogate Decision Maker Josué An son [phone] This patient was staffed with Dr. To Henriquez, who agrees with the assessment and plan unle ss otherwise stated. Johnathan Hemphill MD PGY - 3 | Internal Medicine | [id number] [facility] To Mendez MD - 11/2018 8:01 [...] stenosis or insuff iciency: Aug 26, 2018: [facility] [employer]) 7) Essential hypertension 8) "Cirrhosis, Laennec's" (HCC) [...] it does r aise the qn of Uoekwbd-Nbfht-Kutcm Could have been contributor to osteo Anvil Worker re: skin/foot care (a la DM) 10) Alcohol use disorder, mild, in sustained remission, abuse 11) Encounter for long-term (current) use of antibiotics SURROGATE DECISION MAKER Surrogate Decision Maker Primary Surrogate Decision Maker Josué An son [phone] I spent ~40 minutes in the care of this patient. Greater than 50% of the time was spent co unseling and coordination of care, including visit x 3; extensive chart review (on ramos) TO HENRIQUZE MD [address] resident physician in radiology Division of [facility] Medicine Department of Medicine [facility] & [address] [place] [address] Gauri Walsh MD - 09/12/2019 7:07 AM [...] care, follow up recs - follow up: [facility] ID faculty with preference to [...] BLED 4. Former discussion s with his sales promotion manager decided against anticoagulation; on 81 mg aspirin daily (used to be 325 but reduced to 81 2/2 "GI problems"). - held asa in s/o surgery, has been restarted - continue digoxin - goal resting rate <110 # bilateral lower extremity swelling Unclear etiology. Was seeing sales promotion manager who is prescribing torsemide 10 mg [...] used 90/100 of his medicare SNF days, disease case manager working to determine whether paying out of pocket is an option vs investigate other dispo options. Code Status: Full Code Surrogate Decision Maker Primary Surrogate Decision Maker Josué An son [phone] This patient was staffed with Dr. To Henriquez, who agrees with the assessment and plan unle ss otherwise stated. Gauri Strickland MD Internal Medicine [id number] signed by To Henriquez MD at 09/12/2019 [...] care, follow up recs - follow up: [facility] ID faculty with preference to [...] BLED 4. Former discussion s with his sales promotion manager decided against anticoagulation; on 81 mg aspirin daily (used to be 325 but reduced to 81 2/2 "GI problems"). - held asa in s/o surgery, has been restarted - continue digoxin - goal resting rate <110 # bilateral lower extremity swelling Unclear etiology. Was seeing sales promotion manager who is prescribing torsemide 10 mg [...] used 90/100 of his medicare SNF days, disease case manager working to determine whether paying out of pocket is an option vs investigate other dispo options. Code Status: Full Code Surrogate Decision Maker Primary Surrogate Decision Maker Josué An son [phone] This patient was staffed with Dr. Huerta, who agrees with the assessment and plan unless otherwise stated. Mary Beltran MD PGY-3, Internal Medicine A M PDT Associated attestation - Tiffanie Huerta MD - 09/12/2019 10:41 AM PDT attending I personally interviewed the patient, performed [...] eager to contin ue conversation with his disease case manager about discharge planning. Physical Examination: [...] care, follow up recs - follow up: [facility] ID faculty with preference to [...] BLED 4. Former discussion s with his sales promotion manager decided against anticoagulation; on 81 mg aspirin daily (used to be 325 but reduced to 81 2/2 "GI problems"). - held asa in s/o surgery, has been restarted - continue digoxin - goal resting rate <110 # bilateral lower extremity swelling Unclear etiology. Was seeing sales promotion manager who is prescribing torsemide 10 mg [...] used 90/100 of his medicare SNF days, disease case manager working to determine whether paying out of pocket is an option vs investigate other dispo options. Code Status: Full Code Surrogate Decision Maker Primary Surrogate Decision Maker Josué An son [phone] This patient was staffed with Dr. Huerta, who agrees with the assessment and plan unless otherwise stated. Gauri Strickland MD Internal Medicine [id number] signed by Tiffanie Huerta MD at 09/10/2019 [...] not been an issue. Enjoys working [facility] physical therapy. Denies dyspnea, nausea, abdominal pain, constipation. Fine with getting PICC line and understands need for half-way IV antibiotics. Physical Examination: Last 24 hour [...] care, follow up recs - follow up: [facility] ID faculty with preference to [...] BLED 4. Former discussion s with his sales promotion manager decided against anticoagulation; on 81 mg aspirin daily (used to be 325 but reduced to 81 2/2 "GI problems"). - held asa in s/o surgery, has been restarted - continue digoxin - goal resting rate <110 # bilateral lower extremity swelling Unclear etiology. Was seeing sales promotion manager who is prescribing torsemide 10 mg [...] Primary Surrogate Decision Maker Josué An son [phone] This patient was staffed with Dr. Huerta, who agrees with the assessment and plan unless otherwise stated. Gauri Strickland MD Internal Medicine [id number] signed by Tiffanie Huerta MD at 09/10/2019 [...] hindfoot. 5. Placement of an external tissue component overhaul operator, area other than breast. 6. Placement [...] until further notice, ID consult for termite inspector plan 5. Special Concerns: case managment for discharge planning, likely discharge to SNF in [place] W[facility] consulted 6. Dressings/Drains: DRESSING CARE [...] 2 seconds Aidan Antonio MD Orthopedic Surgery [id number] 11:15 AM Cory Shaikh MD - 09/09/2019 [...] the plan as listed. Cory Carmen MD [facility] [address] [place] [address] Cory Carmen Gauri Walsh MD - 09/08/2019 7:27 AM PDT General Internal Medicine 3 Progress Note 24 Hour Events: Pharmacy completed med rec via SNF MAR records per pharm: "Torsemide, potassium chloride, A SA, MVI, vitamin B12, and thiamine were added to DOCUMENTATION IMPROVEMENT SPECIALIST medication list. Of note, patient has [...] BLED 4. Former discussion s with his sales promotion manager decided against anticoagulation; on 81 mg aspirin daily (used to be 325 but reduced to 81 2/2 "GI problems"). - held asa in s/o surgery, has been restarted - continue digoxin - goal resting rate <110 # bilateral lower extremity swelling Unclear etiology. Was seeing sales promotion manager who is prescribing torsemide 10 mg [...] Primary Surrogate Decision Maker Josué An son [phone] This patient was staffed with Dr. Huerta, who agrees with the assessment and plan unless otherwise stated. Gauri Strickland MD Internal Medicine [id number] signed by Tiffanie Huerta MD at 09/08/2019 [...] present. - he has been comfortable at [facility] assisted living with aggressive PT in the past whi ch is close to [place], [place] home. Deepthi Collazo AGACNP - 09/08/2019 [...] hindfoot. 5. Placement of an external tissue component overhaul operator, area other than breast. 6. Placement [...] until further notice, ID consult for termite inspector plan 5. Special Concerns: case managment for discharge planning, likely discharge to SNF in [facility] Wound Care consulted 6. Dressings/Drains: [...] % Intake/Output Summary (Last 24 hours) at 09/08/201949 Last data filed at 09/08/2019 0645 Gross [...] capillary refill < 2 seconds Deepthi Collazo, [facility] Orthopaedic Trauma Surgery Pager [phone] Associated attestation - Cory Carmen MD - 09/08/2019 5:06 PM PDTORTHO STAFF NOTE I have personally seen, examined, and performed and independent history and physical exam linsey An today. I have discussed the findings with the orthopaedic trauma team resid ents and agree with the full plan as detailed in the note above. Complex right ankle infected hardware. Working on wound care for the heel wound still Setting up antibiotics for afterdischarge. Appreciate infectious disease input. I will be following this patient termite inspector, rather than Dr cochran or Elan. I discussed the diagnosis, imaging studies, treatment plan and prognosis with the patient and resident. I have reviewed and the above note and agree with the plan. Please do not he sitate to call me for questions. Cory Carmen MD [facility] [address] [place] [address] Arnold Taylor MD - 09/07/2019 6:22 PM PDTFormatting of this note might be differ ent from the original. Orthopaedic Surgery Progress Note Patient: /Age: MRN: CSN: Date: Admission Date: Hospital Day: Attending Physician: Diane ToledoNataliya 1950 69 y.o. [id number] 09/07/2019 09/03/2019 4 Garth Cochran MD Procedure(s) [...] 98%, BMI 27.94 kg/(m^2). Facility age [facility] is 18 years. Exam: General: Well appearing, NAD CV/Resp: Breathing comfortably, Neurologic: Awake and alert MSK: LLE Dressings c/d/i Insensate about the lower leg/foot Wiggles toes WWP distally ARNOLD TAYLOR MD Pager: [phone] 09/07/2019 Associated attestation - Garth Cochran MD [...] good, concerns are c entered around termite inspector places, specifically timeline of rehab and wound healing, as well a s what recovery will look like if he were to get a BKA. Reassured that no decisions need to be made now, can involve case management Sunday to look at SNFs. He has been to [facility] in [place] previously. Physical Examination: Last 24 hour min/max [...] BLED 4. Former discussion s with his sales promotion manager decided against anticoagulation; on 81 mg aspirin daily (used to be 325 but reduced to 81 2/2 "GI problems"). - held asa in s/o surgery, restart - continue digoxin - goal resting rate <110 # bilateral lower extremity swelling Unclear etiology. Was seeing sales promotion manager who is prescribing torsemide 10 mg [...] Primary Surrogate Decision Maker Josué An son [phone] This patient was staffed with Dr. Huerta, who agrees with the assessment and plan. Gauri Strickland MD Internal Medicine [id number] signed by Tiffanie Huerta MD at 09/07/2019 [...] Intake/Output Summary (Last 24 hours) at 09/07/2019 1902 Last data filed at 09/07/2019 1756 [address] [...] in team note. - [facility] in [place] would be a reasonable SNF for him [...] seco nds Aidan Antonio MD Orthopedic Surgery [id number] 7:37 AM 09/06/2019 Gauri Walsh MD - [...] DM); HAS BLED 4. Former discussions with [facility] sales promotion manager decided against anticoagulation; on 81 mg aspirin daily (used to be 325 but r educed to 81 2/ "GI problems"). - hold asa in s/o surgery - continue digoxin - goal resting rate <110 # bilateral lower extremity swelling Unclear etiology. Was seeing sales promotion manager who is prescribing torsemide 10 mg [...] Primary Surrogate Decision Maker Josué An son [phone] This patient was staffed with Dr. Huerta, who agrees with the assessment and plan. Gauri Strickland MD Internal Medicine [id number] signed by Tiffanie Huerta MD at 09/06/2019 [...] Admission Date: Hospital Day: Orthopaedic Attending: Diane Nataliya 1950 69 y.o. [id number] 09/05/2019 09/03/2019 2 Olivier Ansari MD Diagnosis(es): [...] to make a follow up appointment in [facility] 2 weeks with ORTHO TRAUMA & [...] es pink and warm. Noel Baptiste MD [facility] [employer] Department of Orthopaedics & Rehabilitation [address] [facility] Mail Code: [id number] [facility] [id number] Associated attestation - Elan, Olivier Mills MD - 09/06/2019 6:21 AM PDTPatient seen/examin [...] DM); HAS BLED 4. Former discussions with [facility] sales promotion manager decided against anticoagulation; on 81 mg aspirin daily (used to be 325 but r educed to 81 2/2 "GI problems"). - hold asa in s/o surgery - continue digoxin - goal resting rate <110 # bilateral lower extremity swelling Unclear etiology. Was seeing sales promotion manager who is prescribing torsemide 10 mg [...] Primary Surrogate Decision Maker Josué An son [phone] This patient was staffed with Dr. Huerta, who agrees with the assessment and plan. Gauri Strickland MD Internal Medicine [id number] signed by Tiffanie Huerta MD at 09/06/2019 [...] 96, Qtc 507 Echo : 08/27/2018: [facility]: Atrial fibrillation. Technically adequate study. EF 65- [...] BLED 4 . Former discussions with his sales promotion manager decided against anticoagulation; on 81 mg aspirin daily (used to be 325 but reduced to 81 2/2 "GI problems"). - hold asa in s/o surgery - continue digoxin - goal resting rate <110 # bilateral lower extremity swelling Unclear etiology. Was seeing sales promotion manager who is prescribing torsemide 10 mg [...] Primary Surrogate Decision Maker Josué An son [phone] This patient was staffed with Dr. Huerta, [...] hours (or 3 results) Recent Labs 09/03/19 19109/04/19 0522 WBC 8.07 6.44 HB 10.2* 10.7* [...] at facility where he lives in [facility], was discharged to home I called and spoke with night RN at [facility] He discharged home yesterday from facility They had noted exposed hardware last week, cultured wound which has not grown and started o n PO levofloxacin 500mg daily and augmentin on 09/02 [address] was seen by Dr Castellano at [facility] who requested transfer to [facility] for orthopedic eval From last [...] ORIF and foot fusion on left in 2015 admitted via ED with expose d hardware [...] within 24 hours. Please refer to excellent internet consultant H&P for full problem based plan. ILIR SPIVEY MD Internal Medicine, PGY-3 Pager: [phone] documented in this enc nter H&P Notes Bk Delacruz MD - [...] skin approximately 5 days ago, and his [facility] facility has been doing dressing changes at the screw site. They had cultured the wound which has not grown and started on PO levofloxacin 500mg daily and augme ntin on 09/02. He was thend discharged from the facility He was seen by Dr Castellano at [facility] who requested transfer to [facility] for orthopedic eval ED: VSS; clueless [...] Bk Delacruz MD Internal Medicine, PGY1 P. [phone] Associated attestation - Tiffanie Huerta MD - [...] Diagnosis: Cellulitis LE Procedure location: Unit: Room: [facility] Providers: Attending name: Attending physically present: No PICC Nurse name: Yenifer Barboza RN BSN VAT Assisted by Marty Golden RN BSN VAT Pre-Procedure Consent: written consent obtained Consent given by: Patient Patient identity confirmed per protocol: Yes Team Pause: Immediatly prior to the procedure a pause per protocol was called. A pause veri fies correct patient, procedure, equipment, support engineer and site/side marked as required. CLABSI Prevention [...] Arm area Basilic vein. Catheter lot number: [id number] with a length of 55 cm was [...] Junction Estimated blood loss: <10mL Yenifer Barboza FLOOR SPACE ALLOCATOR VAT documented in this encounter Consult Notes Yasmeen Singh, XinD - 09/16/2019 10:40 AM PSTFormatting of this [...] ction declines significantly Please page clinical pharmacist [phone]) or call central inpatient pharmacy ([phone]) with qu estions. Actual body weight: Weight: 93.4 kg (206 lb) (not sure how the bed was zeroed) ( 09/04/191899) Labs: CREATININE PLASMA (LAB) (mg/dL) Date Value 09/15/2019 1.11 09/12/2019 1.06 09/10/2019 0.97 BUN, PLASMA (LAB) (mg/dL) Date Value 09/15/2019 22 (H) 09/12/2019 14 09/10/2019 11 WHITE CELL COUNT (K/cu mm) Date Value 09/15/2019 8.96 09/12/2019 6.74 09/10/2019 5.90 VANCOMYCIN, TROUGH (ug/mL) Date/Time Value 09/15/2019 2048 14.2 09/12/2019 2059 16.9 09/09/2019 1126 21.6 (H) Thank you for the consult, Yasmeen Singh, PharmD, [facility] Clinical Pharmacist, Transplant/Urology Pager: [phone] Deuce Kaur, PharmD - 09/12/2019 9:34 PM [...] level prior to third dose. (due before 1 11/15 dose) Please page clinical pharmacist [phone]) or call central inpatient pharmacy ([phone]) with qu estions. Actual body weight: Weight: 93.4 kg (206 lb) (not sure how the bed was zeroed) ( 09/04/191899) Labs: CREATININE PLASMA (LAB) (mg/dL) Date Value [...] to third dose. Please page clinical pharmacist ([phone]) or call central inpatient pharmacy ([phone]) with qu estions. Actual body weight: Weight: 93.4 kg (206 lb) (not sure how the bed was zeroed) ( 09/04/191899) Labs: CREATININE PLASMA (LAB) (mg/dL) Date Value 09/08/2019 0.80 09/06/2019 0.86 09/04/2019 0.87 BUN, PLASMA (LAB) (mg/dL) Date Value 09/08/2019 9 09/06/2019 13 09/04/2019 14 WHITE CELL COUNT (K/cu mm) Date Value 09/08/2019 5.51 09/06/2019 6.77 09/05/2019 6.34 VANCOMYCIN, TROUGH (ug/mL) Date/Time Value 09/09/2019 1126 21.6 (H) 09/08/2019 2305 21.1 (H) 09/07/2019 1108 21.6 (H) Thank you for the consult, Yasmeen Singh PharmD, [facility] Clinical Pharmacist, Transplant/Urology Pager: [phone] Vinod Siddiqui MD - 09/09/2019 12:02 PM PDTFormatting of this note might be different from the origi nal. [facility] Infectious Diseases OPAT Referral for Discharge Planning Team B: OPAT telecommunications officer: [phone], Pager: [phone] ID Diagnosis: Osteomyelitis of the left ankle [...] for PI CC line unless he has prison Vascular Access: Ok to place PICC Follow Up: [facility] ID faculty with preference to schedule with next available clinic provider in 3 weeks post hospital discharge. ID: Please route your note to the "p OPAT/infectious Diseases Clinic" pool Brewery Pumper: For all patients requiring IV antibiotic therapy, please route your OPAT Carina n of Care Note (.CMOPAT) to [facility] "p OPAT/Infectious Diseases clinic" Pool at discharge. Ple ase communicate to primary team that you will be notifying Infectious Diseases of the OPAT P tawanna of Care. Joseph De León MD ID Attending Bk Tracey MD - 09/09/2019 8:13 AM PDT INPATIENT INFECTIOUS DISEASE CONSULT NOTE Infectious Disease Team B Patient: Diane An Room/Bed: 44/ Requesting Provider: Ariana Guillen MD at bedside [...] himsel f - staph aureus sensitivities per handley indicate MRSA On Discharge: - will need [...] the primary team. This patient was staffed [facility] Dr. De León, who agrees with the above assessment and plan unless otherwise documented. Thank you for the consult. Bk Delacruz MD Internal Medicine, PGY1 P. [phone] SUBJECTIVE HPI: 69 y.o. M w/ pmg [...] skin approximately 5 days ago, and his [facility] nursing facility has been doing dressing changes at the screw site. They had cultured the wound which has not grown and started on PO levofloxacin 500mg dailyand augm entin on 09/02. He was thend discharged from the facility He was seen by Dr Castellano at [facility] who requested transfer to [facility] for orthopedic eval. Taken by orthopedics [...] Lines/drains: piv, straight catherized Data: Recent Labs 09/03/19 1911 09/05/19 0500 09/06/19 0420 09/08/19 0452 WBC 8.07 < > 6.34 6.77 5.51 [...] interval not displayed. Recent Labs 09/04/19 0522 09/06/19 0420 09/06/19 1400 09/08/19 0452 NA 138 -- 137 -- 138 K [...] Patient discussed on rounds with Dr. Bk Delacurz. I agree with the assessment and recommen [...] amox/clav one day prior to presentation. At [facility], antibiotics were initially held but then [...] hind foot; placement of an external tissue component overhaul operator; and placement of a negative pressure [...] monitored. Joseph De León MD ID Attending esai, Joseph Alcantar D - 09/08/2019 1:57 PM PDT INPATIENT INFECTIOUS DISEASE CONSULT NOTE Infectious Disease Team B Patient: Diane An Room/Bed: 44/ Requesting Provider: Ariana Guillen MD at bedside [...] vanc 1g q12h (dose adjusted per pharm y) with plan for 6 weeks IV therapy - vanc trough after 3rd dose; goal 13-17 for osteo - please order ESR and CRP for baseline - ok for PICC placement On Discharge: - will need CBC w/ diff, Creatinine, and vanc level weekly while on this regimen - staph aureus sensitivities to be available tomorrow morning per [facility] Please contact Dr. De León for any questions regarding this patient on 09/08. Recommendations were communicated directly to the primary team. This patient was staffed [facility] Dr. De León, who agrees with the above assessment and plan unless otherwise documented. Thank you for the consult, we will follow along with you. Bk Delacruz MD Internal Medicine, PGY1 P. [phone] SUBJECTIVE HPI: 69 y.o. M w/ pmg [...] skin approximately 5 days ago, and his [facility] facility has been doing dressing changes at the screw site. They had cultured the wound which has not grown and started on PO levofloxacin 500mg dailyand augm entin on 09/02. He was thend discharged from the facility He was seen by Dr Castellano at [facility] who requested transfer to [facility] for orthopedic eval. Taken by orthopedics [...] Lines/drains: piv, straight catherized Data: Recent Labs 09/03/19 1911 09/05/19 0500 09/06/19 0420 09/08/19 0452 WBC 8.07 < > 6.34 6.77 5.51 [...] interval not displayed. Recent Labs 09/04/19 0522 09/06/19 0420 09/06/19 1400 09/08/19 0452 NA 138 -- 137 -- 138 K 3.7 -- 3.9 -- 3.9 CL 105 -- 108 -- 108 BICARB 26 -- 25 -- 24 BUN 14 -- 13 -- 9 CR 0.87 -- 0.86 -- 0.80 GLU 83 < > 136* 112* 95 CA 9.1 -- 8.1* -- 8.0* < > = values in this interval not displayed. Recent Labs 09/03/19 1924 AST 14 ALT 12 AP 118 TBILI [...] Information Torsemide 10mg By mouth Every morning SNF MAR Potassium chloride 20meq By mouth Twice daily SNF MAR Aspirin 81mg By mouth Every morning [facility] MAR OTC/Herbal Products: Product Dose Route Frequency multivitamin 1 tablet By mouth Once daily Vitamin B12 100mg By mouth Once daily Thiamine 100mg By mouth Once daily Allergies: No Known Allergies Diane An is a 69 year old male admitted to for cellulitis and exposed hardware on left foot Pharmacy Preferences: No preferred pharmacy on file. Source of Medication Information: [facility] Reliability: Moderate Insurance Status: MEDICARE - MEDICARE A & B DIANE AN 1950 Male [id number] 12/[birth year] [address] MODA MEDICARE SUPPLEMENT - MO* DIANE AN 1950 Male [id number] 11/01/15 [id number] [address] [address] Adherence: Good The above changes will be reviewed with the supervising pharmacist. The patient s prior t o admission medication list will be updated accordingly. A total of 15 minutes were spent on this activity. All questions concerning medications, in cluding OTC and herbal products, were addressed. For questions regarding this information contact Jack Alcantar Candidate Class of 2019 Pager # [phone] Associated attestation - Tammy Nguyen PharmD - [...] vitamin B12, and thiamine were added to DOCUMENTATION IMPROVEMENT SPECIALIST medication list. Of note, patient h as not been taking torsemide regularly per SNF but did receive KCl supplement on 09/02 prior to admission. Loperamide was removed from home med list. For questions regarding this information please contact pharmacy, pager [phone]. Thank you, Tammy Nguyen, PharmD pg [phone], Ali, PharmD - 09/07/2019 1:58 PM PDTFormatting of [...] to third dose. Please page clinical pharmacist [phone]) or call central inpatient pharmacy ([phone]) with qu estions. Actual body weight: Weight: [...] you for the consult, Manuel Bowen Pager [phone] signed by Manuel Bowen PharmD at 09/07/2019 2:00 PM PDTWang, Xin KeeneD - 09/04/2019 7:04 PM PDTFormatting of this [...] to fourth dose. Please page clinical pharmacist ([phone]) or call central inpatient pharmacy ([phone]) with qu estions. Actual body weight: Labs: CREATININE PLASMA (LAB) (mg/dL) Date Value 09/04/2019 0.87 09/03/2019 0.92 BUN, PLASMA (LAB) (mg/dL) Date Value 09/04/2019 14 09/03/2019 15 WHITE CELL COUNT (K/cu mm) Date Value 09/04/2019 6.44 09/03/2019 8.07 Pertinent cultures/sensitivities: NGTD Thank you for the consult, Benitez Anthony, PharmD ancho Stauffer M D - 09/03/2019 10:28 PM PDTAssociated Order(s): IP CONSULT TO EMERGENCY GENERAL SURGERYForma tting of this note might be different from the original. DEPARTMENT OF SURGERY Emergency General Surgery Consult Patient: Diane An ([id number]) Date: 09/03/2019 Reason for consultation: NSTI Requesting provider: MD Jase History of Present Illness: Diane An is a(n) 69 y.o. male alcoholism, cirrhosis (JUSTINO D=9, esophageal varices, ascites), HTN, atrial fibrillation, BLE neuropathy with edema and v enous stasis disease, who presented from facility to [facility] ED with LLE infection. EGS consul [...] file Gets together: Not on file Attends druze service: Not on file Active member of [...] Neuro: no gross deficits Data Recent Labs 09/03/19 1924 NA 137 K 3.7 CL 104 BICARB [...] note might be different from the original. [facility] DEPARTMENT OF ORTHOPAEDICS & REHABILITATION HISTORY [...] 3 years ago (Dr. Surya barron in [place]) who presents with exposed screw on dorsum [...] ates currently with a walker. Lives at [facility] facility in [place]. Says he broke hi s left ankle [...] & FRACTURE, The orthopaedics consult pager is [phone], please call with questions. Oc Santiago MD, MPH Orthopaedic Surgery Resident p [phone] signed by Olivier Ansari MD at 09/04/2019 4:04 PM PDT Associated attestation - Olivier Ansari MD - 09/04/2019 4:04 PM PDT Agree with note. Patient seen/examined. Briefly, Mr An is a 69yoM with Afib, cirrhosis, neuropathy, and prior trauma and ult imately a left ankle fusion by hindfoot nail 3 years ago in [place] - he presents with wor sening wound [...] Pulse - Plethysmograph Resp SpO2 09/03/19 1821 09/03/19 1827 -- 09/03/19 182 -- 09/03/191824 142/66 37.1 C 105 pulses/min [...] 0.92 0.70 - 1.30 mg/dL EGFR - [place]IZ[place] >60 >60 mL/min EGFR NON -[place]IZ[place] >60 >60 mL/min SODIUM, PLASMA (LAB) 137 [...] the report as now presented. Final signature: Joseph Faulkner 09/03/2019 8:31 PM Preliminary: Makeda James [...] the report as now presented. Final signature: Joseph Faulkner 09/03/2019 8:31 PM Preliminary: Makeda James [...] request. The patient was admitted to internal [facility] with the services following for management of [...] date: Expected time: Means of arrival: Comments: Iron Watsonlectronically signed by Jai Harris RN at 09/03/2019 6:13 PM Basilio Butler RN - 09/03/2019 3:09 PM PDTOHSU Peds/Adult ED Referral Note Call From (Facility/Staff): [facility] Demographics/PMHx: foot surg in 2014, etoh use afib, type 2 Chief Complaint: local ortho believes implanted pin is moving Expectation of care from [facility]: ortho eval? Code Status/Polst: full Interventions performed/Meds given: xray pushed, l wrist 20g Pertinent Labs: wbc 8.7, reactive pending VS/Weight:: BP 100/64, hr 98, 02 sats 100, 98.4 temp Transportation/ETA: 6:30 coming pov documented in this encou nter Miscellaneous Notes Plan of Care - Caroline White, AZAR - 09/17/2019 12:07 PM PSTCase Management OPAT Plan of Ca re: Hospital discharge date: 09/17/2019 This patient will be followed for all post hospital OPAT care needs by: [facility] OPAT/Infectiou s Diseases Clinic, ; [facility]: [phone], , Liaison has viewable access to Vascular access note Parenteral supportive orders for labs and vascular access care were provided to: Same as gilbert arredondo Other details pertinent to OPAT Plan of [...] 0011) Patient Specific Preferences: Cluster care (09/04/19 194) [facility] IP NURSE HANDOFF: Cespedes hospital course [...] and PT/OT to follow. Barriers to discharge: termite inspector IV antibiotics, increased mobility. He would like to retur n to his previous facility for PT/recovery. Pt to be discharged back to his facility in [place] tomorrow, pt will call his ride who i s picking him up tomorrow. andoff - Katina, Indu hewitt RN - 09/16/2019 1:48 PM PSTNursing Handoff Patient Daily Goal: "Sleep tonight." (09/16/1910) Patient Specific Preferences: Cluster care (09/04/191945) [facility] IP NURSE HANDOFF: Cespedes hospital course [...] and PT/OT to follow. Barriers to discharge: halfway IV antibiotics, increased mobility. He would like to retur n to his previous facility for PT/recovery. Pt to be discharged back to his facility in [place] tomorrow, pt will call his ride who i s picking him up tomorrow. 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 RN consulted of session. [facility] BASIC MOBILITY Difficulty turning over in [...] to do/total assistance - Total/Dependen t Assist [facility] Basic Mobility Total Score 12 Interpretation of [facility] Short Form - Basic Mobility: CMS [...] NWBing precautions while mobili zing and successfully seeing eye dog teacher a Lumex. While he demonstrates improved strength, [...] note shall serve as the discharge summary. Kaden Caldwell RN - 09/16/2019 1:19 AM PSTNursing Handoff Patient Daily Goal: "Sleep tonight." (09/16/19 0011) Patient Specific Preferences: Cluster care (09/04/19 1946) [facility] IP NURSE HANDOFF: Cespedes hospital course [...] IS use. VSS. RESTORATIVE MEASURES/SELF-MANAGEMENT Patient/Family Target: Diane will be [...] and PT/OT to follow. Barriers to discharge: half-way IV antibiotics, increased mobility. He would like [...] and pain. Continuing to recommend skilled nursi ng facility, PT to follow. Problem: PT Goals- Adult [...] Needs: defer Valeria Galvin PT, DPT Pager [phone] Should this patient discharge from the hospital prior to the next physical therapy treatmen t, this note shall serve as the discharge summary. andoff - Maribel Alcantar, RN - 09/13/2019 5:56 PM PDTNursing Handoff Patient Daily Goal: bowel care, increase activities, prevention of infection and skin break down, and promote diet (09/12/19 0800) Patient Specific Preferences: Cluster care (09/04/19 194) [facility] IP NURSE HANDOFF: Cespedes hospital course [...] and PT/OT to follow. Barriers to discharge: termite inspector IV antibiotics, increased mobility. He would like [...] Patient Specific Preferences: Cluster care (09/04/19 1946) [facility] IP NURSE HANDOFF: Cespedes hospital course [...] and PT/OT to follow. Barriers to discharge: half-way IV antibiotics, increased mobility. He would like to retur n to his previous facility for PT/recovery lan of Care - Gilbert Alcantar RN - 09/12/2019 6:00 PM PDT Problem: General Plan of Care (Adult) Goal: Individualization/Patient-Specific Goal: bowel care, increase activities, prevention of infection and skin breakdown, and promote diet Outcome: Expected progress toward goal lan of Care - Irina Shah, PT - [...] gait belt on,RN present in room to [facility] ist-maintained left lower extremity -non weight bearing, [...] campo within reach and RN was notified [facility] BASIC MOBILITY Difficulty turning over in [...] to do/total assistance - Total/Dependen t Assist [facility] Basic Mobility Total Score 12 Assessment: [...] activities to meet his goals. Interpretation of [facility] Short Form - Basic Mobility: CMS [...] summary. Next visit: sit to stand-lumex Irina Hernández, PT #[id number] signed by Irina Hernández PT at 09/12/2019 4:12 PM PDTPlan of [...] standing frame Outcome: Gradual progress toward goal andoff - Gonzalez Joseph, RN - 09/12/2019 3:44 AM PDTNursing Handoff Patient Daily Goal: order breakfast. (09/11/19904) Patient Specific Preferences: Cluster care (09/04/191945) [facility] IP NURSE HANDOFF: Cespedes hospital course [...] and PT/OT to follow. Barriers to discharge: termite inspector IV antibiotics, increased mobility. He would like to retur n to his previous facility for PT/recovery lan of Care - Solitario Weathers, PT - 09/11/2019 4:21 PM PDTFormatting of this note might be different from the shellie davalos Physical Therapy 09/11/2019 4:21 PM Time in: [...] bed with left lower extremity sukhjinder dging. [facility] BASIC MOBILITY Difficulty turning over in [...] to do/total assistance - Total/Dependen t Assist [facility] Basic Mobility Total Score 11 Ended [...] in bed but need reminder to move/turns. andoff - Maribel Alcantar, RN - 09/11/2019 2:22 PM PDTNursing Handoff Patient Daily Goal: order breakfast. (09/11/19 6967) Patient Specific Preferences: Cluster care (09/04/191945) [facility] IP NURSE HANDOFF: Cespedes hospital course [...] and PT/OT to follow. Barriers to discharge: termite inspector IV antibiotics, increased mobility Steve - Xavier Garcia RN - 09/11/2019 4:43 AM PDTNursing Handoff Patient Daily Goal: get a bath (09/07/19835) Patient Specific Preferences: Cluster care (09/04/191945) [facility] IP NURSE HANDOFF: Cespedes hospital course [...] awake, monitor urinary output Barriers to discharge: half-way IV antibiotics, increased mobility Sheeba Bernal RN - 09/11/2019 12:14 AM PDTNursing Handoff Patient Daily Goal: get a bath (09/07/19835) Patient Specific Preferences: Cluster care (09/04/191945) [facility] IP NURSE HANDOFF: Cespedes hospital course [...] urinary output Barriers to discharge: PICC placement, termite inspector IV antibiotic use, increased mobility andoff - Lani Briggs RN - 09/10/2019 4:50 PM PDTNursing Handoff Patient Daily Goal: get a bath (09/07/19 7736) Patient Specific Preferences: Cluster care (09/04/19 1946) [facility] IP NURSE HANDOFF: Cespedes hospital course [...] urinary output Barriers to discharge: PICC placement, termite inspector IV antibiotic use, increased mobility lan of Care - Lakshmi Damon, RD - 09/10/2019 4:06 [...] chocolate [employer] as a snack margarita jennings. Rec: - Continue Regular diet - Continue [...] by recent four-compartment fasciotomy debridement. Following, Jane Damon MS, RD, LD Pager #[phone] Note: Admitting Dx: Diane An is a [...] hx: 81.6 kg (10/08/18) Estimated Nutrition Needs: 4359-7486 kcals (23-27 kcal/kg), 112-137 gm protein (1.2-1.5 gm/ kg) andoff - Isa Quiroga RN - 09/10/2019 1:43 AM PDTNursing Handoff Patient Daily Goal: get a bath (09/07/19 7990) Patient Specific Preferences: Cluster care (09/04/19 6566) [facility] IP NURSE HANDOFF: Cespedes hospital course [...] drainage from screw e xposure site (per note). 09-04-19 S/p LLE hardware removal, I&D. [...] urinary output Barriers to discharge: PICC placement, termite inspector IV antibiotic use, increased mobility andoff - Blair Brewer RN - 09/09/2019 5:46 PM PDTNursing Handoff Patient Daily Goal: get a bath (09/07/19 4843) Patient Specific Preferences: Cluster care (09/04/19 1946) [facility] IP NURSE HANDOFF: Cespedes hospital course [...] urinary output Barriers to discharge: PICC placement, half-way IV antibiotic use, increased mobility lan of [...] lower extremity - non weight bearing, maintain cnc machine setter ior foot splint and leg elevated Parties present for session: Physical therapist, physical therapy internet consultant, patient, Consulted/Discussed patient's care with: AZAR Pinto [...] re quest to remain in seated position [facility] BASIC MOBILITY Difficulty turning over in [...] to do/total assistance - Total/Dependen t Assist [facility] Basic Mobility Total Score 11 *Note: activity was not directly observed and scoring is based on skills and deficits demon lance today 1 - Unable to do/total assistance = Total/Dependent Assist 2 - A lot = Maximum/Moderate Assistance 3 - A little = Minimal/Contact Guard Assist/Supervision 4 None = Modified independent/Independent Interpretation of [facility] Short Form - Basic Mobility: CMS [...] level of care DME: defer to facility AZAR Pinto consulted re: recommendations PLAN: Therapeutic exercise, transfer to chair Edy Person Time in: 905 Time out: 929 This [...] entire session. The student participated in the torito claire of services while I directed the service, made the skilled judgment, and was responsible for the assessment and treatment. I verify that I directed the plan of care and was immediately available for assistance as n ecessary both during the session and documentation. Manda Arroyo, PT, DPT Physical Therapist Pager #[phone] signed by Manda Arroyo PT at 09/09/2019 1:31 PM PDTHa ndlelia - Melinda Watson RN - 09/09/2019 4:23 AM PDTNursing Handoff Patient Daily Goal: get a bath (09/07/19 0836) Patient Specific Preferences: Cluster care (09/04/19 1946) [facility] IP NURSE HANDOFF: Cespedes hospital course [...] when awake, monitor urinary output -last BM 10/28 with aid of suppository, no BM this shift Barriers to discharge: PICC placement, termite inspector IV antibiotic use, increased mobility Steve - Alvino Brewer RN - 09/08/2019 5:50 PM PDTNursing Handoff Patient Daily Goal: get a bath (09/07/19 0518) Patient Specific Preferences: Cluster care (09/04/19 5569) [facility] IP NURSE HANDOFF: Cespedes hospital course [...] IV abx plan, may need PICC placement Steve - Sada Onofre RN - 09/07/2019 5:23 PM PDTNursing Handoff Patient Daily Goal: get a bath (09/07/19 0836) Patient Specific Preferences: Cluster care (09/04/191945) [facility] IP NURSE HANDOFF: Cespedes hospital course [...] need PICC placement andoff - Gilbert Alcantar RN - 09/06/2019 6:35 PM PDTNursing Handoff Patient Daily Goal: Remain free from pain to facilitate sleep (09/04/191945) Patient Specific Preferences: Cluster care (09/04/191945) [facility] IP NURSE HANDOFF: Cespedes hospital course [...] Barriers to discharge: Planned OR today 09-06-19 p Note - Vincent Cochran nd, MD - 09/06/2019 11:35 AM PDTFormatting of this note might be different from the origin al. [facility] [place] Department of Orthopaedics & Rehabilitation OPERATIVE NOTE Patient: /Age: MRN: CSN: Date: Admission Date: Hospital Day: Diane An 1950 69 y.o. [id number] 09/06/2019 09/03/2019 3 Attending Surgeon: Garth Cochran MD Heatset Winder Operator(s): 1. Arnold Taylor MD Preoperative Diagnosis(es): 1. [...] position ed we then removed the tissue component overhaul operator device and the wound vac, all [...] Date of procedure: 09/03/2019 - 09/06/2019 Location: [facility] Surgeon(s) and Role: * Garth Cochran MD - Primary Staff: Bariatric Coordinator: Naeem Lane RN Scrub: ST Luke Scrub Relief: ST Cabrera Pre Op Dx left foot infection Post Op Dx: Same Procedure: See above Anesthesia: General Findings/Complications: None Estimated Blood Loss: 200 mL Drains: * No LDAs found * Specimens None Implants/Grafts None Procedure Description: Garth Cochran MD lan of Care - Irina Aguayo, PT - 09/06/2019 9:24 AM PDTFormatting of this note might be different from the or iginal. Problem: PT Goals- Adult Goal: Functional Mobility Goal Description Patient will perform bed mobility independently Patient will perform supine to edge of bed independently Patient will be independent with lower extremity strength training exercises Outcome: Gradual progress toward goal Physical Therapy Evaluation [id number] [facility] Day: 3 Date of : 1950 Start [...] Goal: get stronger and walk better Communication/Barriers: Kazakh/ fatigue Pain: /10 left ankle pain Vital Signs: stable pre [...] challenge or move without loss of balance Henri Marin and Nikos White (2007). Physical rehabilitation: assessment and treatme nt (5th ed.). [place]: [employer]. p.254 Mobility & Transfers: Supine to sit: standby assist Sit to supine: not tested , left sitting edge of bed-RN present in room Sit to stand/Stand to sit: not tested, refused further functional mobility,was tired Scoot: not tested Stand pivot transfer: not tested Gait: not tested Outcome Measure: [facility] BASIC MOBILITY Difficulty turning over in [...] to do/total assistance - Total/Dependen t Assist [facility] Basic Mobility Total Score 11 Interpretation of [facility] Short Form - Basic Mobility: CMS [...] (09/04/191945) Patient Specific Preferences: Cluster care (09/04/191945) [facility] IP NURSE HANDOFF: Cespedes hospital course [...] (09/04/191945) Patient Specific Preferences: Cluster care (09/04/191945) [facility] IP NURSE HANDOFF: Cespedes hospital course [...] will be well-managed to a level of /. Progress to Target: No Change As evidenced [...] r Sunday lan of Care - Jane Damon, RD - 09/05/2019 3:52 PM PDTFormatting of this note might be different from the aldair lilli. Problem: Nutrition Interventions Intervention: Food and nutrient [...] Following, Jane Damon, MS, RD, LD Pager #[phone] Note: Admitting Dx: Diane nA is a 69 y.o. male with a [...] hx: 81.6 kg (10/08/18) Estimated Nutrition Needs: 9635-0480 kcals (23-27 kcal/kg), 112-137 gm protein (1.2-1.5 gm/ kg) andoff - Vinay Summers RN - 09/05/2019 6:55 AM PDTNursing Handoff Patient Daily Goal: Remain free from pain to facilitate sleep (09/04/191945) Patient Specific Preferences: Cluster care (09/04/191945) [facility] IP NURSE HANDOFF: Cespedes hospital course [...] repeat I&D, likely Sunday o r Sunday andoff - Elliott Mahajan RN - 09/04/2019 6:02 PM PDTNursing Handoff [facility] IP NURSE HANDOFF: Cespedes hospital course [...] repeat I&D, likely Sunday o r Sunday p Note - Zak Ansari MD - [...] the hindfoot. 5.Placement of an external tissue component overhaul operator, area other than breast. 6.Placement of [...] move. It had migrated into the mid-foot. W felix actually placed the jig of the hindfoot [...] 6 L of normal saline. It looked metal cleaner and the swelling in th e [...] I therefore elected to place a tissue component overhaul operator. This was the DermaClose device, regular [...] procedure. Counts were correct at the end. MD ROSE Galvan/MODL /[id number] signed by Olivier Ansari MD at 09/05/2019 [...] given: Hydromorphone push (mg): 0.5 mg (09/04/19 1514) Pain medication totals: 2 mg Dilaudid IVP Additional pain medication information: Functional Epidural: N/A TECHNICAL SERVICE REPRESENTATIVE: N/A Respiratory: RR: 17 , O2 Sat: 98 % , O2 Delivery: None (room air) Breath Sounds: WDL BEBE: LLL: RUL: RLL: MARK No Comment: Cardiac: BP: 115/53 HR: 101 GI: Nausea/Vomiting Status: No Signs/Symptoms: Interventions: Assessment: Comments: : Last void: 1350 - episode of incontinence moving from OR table to bed. Contact Name: Josué aviles Contact Number: [phone] Family contacted: Yes Comment:Off campus. Given update. Belongings:Returning to room. rief Op Note - Carmen Ansari MD - 09/04/2019 1:46 PM PDTFormatting of this note might be different from the or iginal. Date of procedure: 09/03/2019 - 09/04/2019 Times Event Time In Procedure Start Shania Sep 04, 2019 0954 Procedure Stop Shania Sep 04, 2019 1339 Location: [facility] Surgeon(s) and Role: * Olivier Ansari MD - Primary Staff: Bariatric Coordinator: Geneva Mills RN Scrub: Brady Anderson RN Bariatric Coordinator Relief: Lise Xiong RN; Sveta Graham RN Scrub Relief: Tristan Perry, Scrub Orientee: Sacha Dudko, ST Office Worker: Varun Patel, RT Additional RN: Cary Jones RN Asset Liability Analyst: Noel Baptitse MD Pre Op Dx INFECTED LEFT ANKLE FUSION Cirrhosis Post Op Dx: Same Procedure: 1. Four compartment fasciotomy left leg, with incision irrigation and debridement, two-inci sions 2. Removal of hardware deep implant, with curettage of calcaneus 3. Irrigation/incision/debridement of left ankle incomplete fusion 4. Spanning ankle fusion antibiotic nail 5. Placement external tissue component overhaul operator, area other than breast 6. Placement [...] A ER AND SAMMIE Ansari MD 09/04/2019 1221 C : Deep tissue and bone left leg Tissue Ankle CULTURE, TISSUE-PROSTHETIC JOINT INFECTION A ER AND SAMMIE Ansari MD 09/04/2019 1221 D : Deep tissue and bone left leg Tissue Ankle CULTURE, TISSUE-PROSTHETIC JOINT INFECTION A ER AND SAMMIE Ansari MD 09/04/2019 1221 E : Deep tissue and bone left leg Tissue Ankle CULTURE, TISSUE-PROSTHETIC JOINT INFECTION A ER AND SAMMIE Ansari MD 09/04/2019 1221 Implants/Grafts Implant Name Type Inv. Item Serial No. Woodwork Salvage Inspector Lot No. LRB No. Used Action Size CEMENT BONE REFOBACIN 1X40 W/ GENTAMICIN - [id number] CEMENT BONE REFOBACIN 1X40 W/ GENTAMI MAIA JAMES [id number] Left 2 Implanted Complications: None Findings: Edema [...] Gwyn verdin 09/04/2019 2:05 AM PDTED RN Gwyn Drake - 09/04/2019 1:28 AM PDTCalled to give report, was informed that RN was almost available to give report, gave floor number to reach me. IKAED RN Blaire Jean - Gwyn Turpin - 09/04/2019 1:00 AM PDTAttempted to call report to 4A, but was informed that they would call back in 30 min when another nurse came to the floor to take this admit.Elect ronically signed by Gwyn Turpin at 09/04/2019 1:01 AM PDTED Teaching Notes - Matt Guillen MD - 09/04/2019 12:49 AM Gildardo Guillen MD, Faculty Note: I saw and evaluated the patient and discussed the diagnosis, management, and interpretation of results with the resident. I performed and confirmed the cespedes portions of the service. I have reviewed and agree with the documentation in the provider note. D RN Student Note - Gwyn Turpin - 9 8:04 PM PDTPt talking to brother on phoneElectronically signed by Gwny Turpin at 9 8:04 PM PDTUp Health System - Alida Johnson - 09/03/2019 5:46 PM [...] | + + + + + | [facility] | [address] | [place] [address] | | | SERVICES, CORE | PARK [...] | | | | | | , [facility] | | | | | | [facility] | | | | | | [...] | + + + + + | [facility] | [address] | [place] [address] | | | PATHOLOGY | [address] [...] [facility] | [address] | [place] [address] | | | FERMÍN ZABALA | DWIGHT [...] [facility] | [address] | [place] [address] | | | FERMÍN ZABALA | DWIGHT [...] | LABORATORY | | | [place] | | | SERVICES, | | | [...] | + + + + + | [facility] | [address] | [place] [address] | | | SERVICES, FERMÍN | DWIGHT [...] | + + + + + | [facility] | [address] | [place] [address] | | | SERVICES, CORE | DWIGHT [...] [facility] | [address] | [place] [address] | | | SERVICES, CORE | PARK [...] | + + + + + | [facility] | [address] | [place] [address] | | | SERVICES, CORE | DWIGHT [...] [facility] | [address] | [place] [address] | | | SERVICES, CORE | PARK [...] [facility] | [address] | [place] [address] | | | SERVICES, CORE | PARK [...] | LABORATORY | | | [place] | | | SERVICES, | | | [...] | + + + + + | [facility] | [address] | [place] [address] | | | SERVICES, FERMÍN | DWIGHT [...] | + + + + + | [facility] | [address] | [place] [address] | | | SERVICES, CORE | DWIGHT [...] | LABORATORY | | | [place] | | | SERVICES, | | | [...] MDRD equation recommended by the National | [facility] | | Kidney Disease Education [...] | + + + + + | [facility] | [address] | [place] [address] | | | SERVICES, [facility] | [address] | | | + + + + + X-RAY PORTABLE CHEST PICC LINE CHECK (09/09/2019 7:29 PM PDT) + + | Specimen | + + | | + + + + + | Narrative | Performed At | + + + | EXAM: MI CHEST PICC LINE CHECK HISTORY: Verify Catheter [...] Santoyo MD Dictation initiated: Radha Tam | | MD Yarelis 09/09/2019 8:43 PM | | + + + + + | Procedure Note | + + | Service Account, Radiant Res In Interface - 09/09/2019 8:46 PM PDT EXAM: MI CHEST | | PICC LINE CHECK HISTORY: [...] At | + + + | EXAM: MI CHEST 1 VIEW HISTORY: PICC placement COMPARISON: [...] Interface - 09/09/2019 4:46 PM PDT EXAM: MI CHEST 1 | | VIEW HISTORY: PICC [...] Diagnosis: Cellulitis LE Procedure location: Unit: Room: [facility] | | | Providers: Attending name: Attending physically present: No PICC | | | Nurse name: AZAR LeonN VAT Assisted by Marty | | | Chantel BENSON VAT Pre-Procedure Consent: written consent | | | obtained Consent given by: Patient Patient identity confirmed per | | | protocol: Yes Team Pause: Immediatly prior to the procedure a pause | | | per protocol was called. A pause verifies correct patient, | | | procedure, equipment, support engineer and site/side marked as | [...] vein. Catheter lot number: | | | [id number] with a length of 55 cm was [...] [facility] | [address] | [place] [address] | | | SERVICES, CORE | PARK [...] [facility] | [address] | [place] [address] | | | SERVICES, CORE | DWIGHT [...] | + + + + + | [facility] | [address] | [place] [address] | | | SERVICES, CORE | DWIGHT [...] | + + + + + | [facility] | [address] | [place] [address] | | | SERVICES, [facility] | [address] | | [...] Damion Baxter DO Dictation initiated: Damion | Yonatan Baxter DO 09/08/2019 2:20 PM | |Interval [...] [facility] | [address] | [place] [address] | | | SERVICES, CORE | PARK [...] | LABORATORY | | | [place] | | | SERVICES, | | | [...] | + + + + + | [facility] | [address] | [place] [address] | | | VJ, FERMÍN | PARK [...] | + + + + + | [facility] | [address] | [place] [address] | | | VJ, FERMÍN | DWIGHT [...] | [facility] | [address] | [place], [place] | | | LUISA POINT OF CARE | [facility] | [address] | | | TESTS | | | [...] | + + + + + | [facility] | [address] | [place] [address] | | | SERVICES, CORE | PARK [...] | LABORATORY | | | [place] | | | SERVICES, | | | [...] MDRD equation recommended by the National | [facility] | | Kidney Disease Education Program. Estimated [...] | + + + + + | [facility] | [address] | [place] [address] | | | SERVICES, CORE | DWIGHT [...] [facility] | [address] | [place] [address] | | | SERVICES, | [address] [...] [facility] | [address] | [place] [address] | | | SERVICES, | [address] [...] Note | + + | Service Account, Shasta Crystalsant Res In Interface - 09/05/2019 4:57 PM [...] Note | + + | Service Account, Quotefish Res In Interface - 09/05/2019 4:56 PM [...] | + + + + + | [facility] | [address] | [place] [address] | | | SERVICES, CORE | DWIGHT [...] | + + + + + | [facility] | [address] | [place] [address] | | | SERVICES, CORE | DWIGHT [...] + + + + + | [facility] | [address] | [place], [place] | | | CARDIOLOGY | [address] | [address] | | + + + + + [...] | | | POC | | | [place] | | | | | | [...] [facility] | [address] | [place], [place] | | | LUISA IUKA OF [facility] | [address] | [address] | | | TESTS | | | | + + + + + X-RAY ANKLE 2 VIEWS LEFT (09/04/2019 1:18 PM PDT) + + | Specimen | + + | | + + + + + | Narrative | Performed At | + + + | - At the time of the study, no professional interpretation was | [facility] | | requested. - | RADIOLOGY | [...] B for complete identification and susceptibilities | [facility] | | Enterococcus faecalis Unable to continue [...] | + + + + + | [facility] | [address] | [place] [address] | | | [place] | | | [...] | + + + + + | [facility] | [address] | [place] [address] | | | [place] | | | | + + + [...] B for complete identification and susceptibilities | [place] | | Enterococcus faecalis Refer to culture [...] + | [facility] | [address] | [place] [address] | | | [place] | | | [...] squamous epithelial cells Rare polymorphonuclear cells | [place] | | No organisms seen | | [...] + | [facility] | [address] | [place] [address] | | | [place] | | | | + + + [...] + | [facility] | [address] | [place] [address] | | | [place] | | | [...] + | [facility] | [address] | [place] [address] | | | SERVICES, CORE | PARK [...] [facility] | [address] | [place] [address] | | | SERVICES, CORE | PARK [...] | LABORATORY | | | [place] | | | SERVICES, | | | [...] mL/min/1.73 sq m Chronic Kidney | SERVICES, [facility] | | Disease <15 mL/min/1.73 sq m [...] | + + + + + | [facility] | [address] | [place] [address] | | | FERMÍN ZABALA | DWIGHT [...] | + + + + + | [facility] | [address] | [place] [address] | | | SERVICES, CORE | PARK [...] | + + + + + | [facility] | [address] | [place] [address] | | | SERVICES, FERMÍN | DWIGHT [...] | [facility] | | considered for monitoring half-way glycemic control in patients with: | LABORATORY [...] | + + + + + | [facility] | [address] | [place] [address] | | | SERVICES, SPECIAL | PARK [...] - | | | | | | [place] | | + +---------+ + + + + + | Specimen | + + | Blood - Blood | | (substance) | + + + + + + + | Performing | Address | City/State/Zipcode | Phone Number | | Organization | | | | + + + + + | [facility] | [address] | [place] [address] | | | [facility] | | | | + + + [...] | + + + + + | [facility] | [address] | [place] [address] | | | SERVICES, CORE | DWIGHT [...] | + + + + + | [facility] | [address] | [place] [address] | | | SERVICES, CORE | PARK [...] [facility] | [address] | [place] [address] | | | SERVICES, CORE | [address] | | | + + + + + CULTURE, BLOOD BACTI & YEAST [facility] (09/03/2019 7:25 PM PDT) + + + [...] | + + + + + | [facility] | [address] | [place] [address] | | | SERVICES, CORE | [address] | | | + + + + + BG-EILEEN OLIVERA (09/03/2019 7:25 PM PDT) + +-------+ + [...] [facility] | [address] | [place], [place] | | | ALEX MORAN OF [facility] | [address] | [address] | | | TESTS | | | [...] | + + + + + | [facility] | [address] | [place] [address] | | | SERVICES, CORE | [address] | | | + + + + + ETHANOL (ALCOHOL), BLOOD (09/03/2019 7:24 PM PDT) + +-------+ + + + | Component | Value | Ref Range | Performed | Pathologist | | | | | At | Signature | + +-------+ + + + | ETHANOL | <10 | <10 mg/dL | [facility] | | | (ALCOHOL) | | | [...] | + + + + + | [facility] | [address] | [place] [address] | | | SERVICES, CORE | PARK [...] | + + + + + | [facility] | [address] | [place] [address] | | | VJ, FERMÍN | DWIGHT [...] [facility] | [address] | [place] [address] | | | SERVICES, CORE | PARK [...] | LABORATORY | | | [place] | | | SERVICES, | | | [...] MDRD equation recommended by the National | [facility] | | Kidney Disease Education [...] | + + + + + | [employer] | [address] | [place] [address] | | | SERVICES, CORE | DWIGHT [...] MD 09/03/2019 8:31 PM Preliminary: Makeda | Yonatan James MD Dictation initiated: Makeda James MD [...] [facility] | [address] | [place] [address] | | | SERVICES, | [address] [...] | + + + + + | [facility] | [address] | [place] [address] | | | SERVICES, CORE | DWIGHT [...] | + + + + + | [facility] | [address] | [place] [address] | | | SERVICES, CORE | DWIGHT [...] | + + + + + | [facility] | [address] | [place] [address] | | | SERVICES, CORE | DWIGHT [...] | | | DAILY, First dose on Sun | | [...] | | | | | 0743, Until Sun09/17/19 at 0925, | | | | | [...] | | | | First dose on [facility] 09/04/19 at | | AM PST | [...] | | | | | NEEDED, Starting Shanai 10/24/19 at | | | | | | | 1449, Until [facility] 09/04/19 at 1836, | | | | | | | moderate pain, unresponsive to | | | | | | | non-opioid medication | | | | | | + +-------+ +------+---+---+ +---+---+ | | | +---+---+ + +-------+ +-------+---+---+ | phytonadione (vitamin K1) | Given | 09/13/20 | 10 mg | | | | (VITAMIN K, MEPHYTON) tablet 3:14 | | | | | mg [...] | | | dose on [facility] 09/04/19 at 0900, | | AM PST [...] | | oral, DAILY, First dose on [facility] | | 19 9:20 | | | [...] | | 12 HOURS, First dose on Sun | | AM [...] +---+---+ | vancomycin (VANCOCIN) IV 1,500 | | 09/09/20 | 1,500 mg | | [...] +---+---+ | vancomycin (VANCOCIN) IV 1,500 | | 09/12/20 | 1,500 mg | | | | mg 1,500 mg, intravenous, EVERY | | 19 8:42 | | | | | 24 HOURS, First dose on Sun | | PM PDT | | | | | 09/10/19 at 2000, Until | | | | | | [...]
--- OUTSIDE RECORDS SUMMARY | ~2020-08-04 | XMS | Encounter Summary ---
Demographics + + + | Address | [address] | | | [place] [address] | + + + | Home Phone | | + + + | Preferred Language | Unknown | + + + | Marital Status | Single | + + + | Bahai Affiliation | NRP | + + + [...] Phone | + + +---------+ + | Norbetro An | ECON | Unknown | | + + +---------+ + | Josué An | ECON | Unknown | | + + +---------+ + Care Team Providers + +------+ + | Care Employment Specialist Name | Role | Phone | [...] Description | +--------+---------+ + + + | 06/02/ | Surgery | 6A Intra Op 3181 | Malik Mcmillan | placement of | | 2019 | | NOVA Maya | MD Joselito [address] | calcaneal pin, | | | | Rd [facility] | [address] | stress exam under | | | | Hospital Admitting | [place], [place] | anesthesia right | | | | Desk Located on the | [address] | ankle | | | | 9th floor | [phone] | | | | | [facility] [place] | | | | | | [address] | | | +--------+---------+ + + + [...] + + + | Blood Pressure | 142/70 | 06/02/2020 10:05 AM | | | | | PDT | | + + + + + | Pulse | 81 | 06/02/2020 10:05 AM | | | | | PDT | | + + + + + | Temperature | 37.2 C (99 F) | 06/02/2020 10:05 AM | | | | | PDT | | + + + + + | Respiratory Rate | 16 | 06/02/2020 10:05 AM | | | | | PDT | | + + + + + | Oxygen Saturation | 97% | 06/02/2020 10:05 AM | | | | | PDT | | + + + + + | Inhaled Oxygen | - | - | | | Concentration | | | | + + + + + | Weight | 86.2 kg (190 lb) | 06/01/2020 10:18 PM | | | [...] degree FH) 5) Atrial fibrillation, unspecified type ([facility]) 6) Closed fracture dislocation of ankle joint, [...] patient was felt appropriate for discharge to [facility] Facility: [facility] Rajinder, and the patient and/or family members agree [...] a SNF "I certify that post-hospital inpatient penitentiary facility care is medically necessar y on [...] and skin examined. 3. Follow up in [place] at 6 weeks for check with surgeon Dr. Fam If local surgeon, Dr. Coffman, unable to provide follow up, please have patient follow up in [place] with Dr. Fam's office. Postoperative Discharge Instructions [...] and ask for the orthopaedic surgery resident automation technologist. Pain Management: All medications must be taken [...] MD . Specialty: Family Medicine Contact information [address] [place] [address] Contact information for after-discharge care Discharge Destination [facility] . Service: [facility] Contact information [address] [address] Code Status for Facility Status: Full Code [...] 81 mg Tbec ----- Discharge Patient To: [facility] Facilit Discharging Physician: Lamine Aguilar MD Attending Physician: Dr. Marty Fam Thank you for the opportunity to take care of Diane An during this inpatient stay, it has been our pleasure. Please call with any questions. Lamine Aguilar MD [facility] Department of Orthopaedics and Rehabilitation PGY-3 Pager [phone] documented in this en counter Discharge Instructions Instructions Stu Rhoadesiza, SPECIALIST PHYSICIAN - 06/03/2020Alcohol and Drug Treatment Resources During your hospitalization, you were given a brief substance use screening. If you are int erested in obtaining more information about alcohol or drug treatment, or are curious about available supports in your community, the following resources may be helpful. [facility]'s National Helpline (also known as the Treatment Referral Routing Service) is a conf idential, free, 57-mqst-v-day, 778-zes-l-year, information service, in German and Chinese, for individuals and family members facing substance abuse and mental health issues. Call 4-126-831-Videology (6400) or visit the online treatment locators at http://findtreatment.[facility].gov/ 12-13- Info Dial from your mobile phone or landline to speak to a specialist who can help you jimmy askew about resources in your area Fellowship Alcoholics Anonymous: www.aa.org to find the meeting closest to you [phone] Narcotics Anonymous [phone] Alcohol and Drug Helpline (adults) 3-217-502-TEEN (7736) 358.639.8035 (youth/family members) (Chinese speaking) SMART Recovery (Self-Management and Recovery Training) www.FansUnite.Hygeia Personal Care Products Refuge Recovery (A Uatsdin Path to Recovering from Addiction) http://www.refugeLaunchRock.org CelebraAbroad101 Recovery (A Mike-Centered Recovery Program) http://www.Shiny Media/ Outpatient Treatment [facility] Website: http://www.[facility].org/ Central Contact Services Available By Self-Referral: Adult Outpatient Youth Outpatient Problem Gambling Treatment [facility] Website: http://www.[facility].org/ Services Available By Self-Referral: Women s Residential at [facility] - Detoxification & Stabilization at [facility] - Adult Outpatient at [facility] - Enhanced Youth and Family Services - [facility] Website: http://Caribou Coffee Company/ Central Contact Services Available By Self-Referral: Adult Outpatient Youth Outpatient [facility] Website: http://www.Flirq.org/ Central Contact Phone: or Toll Free Services Available By Self-Referral: Adult Outpatient Youth Outpatient Youth Prevention Enhanced Youth and Family Services Problem Gambling Treatment [facility] Central Contact Services Available By Self-Referral: Medication Assisted Treatment for Opioid Use Residential Treatment [facility] Health, Recovery & Community Website: http://www.[facility].org/ Services Available By Self-Referral: Men s and Women s Residential Adult Outpatient at [facility] Medication Assisted Treatment for Opioid Use [facility] Treatment Centers Website: http://www.depaultreatmentcenters.org/ Adult Gender Specific Residential Adult Outpatient Youth Outpatient Rehabilitation [facility] Website: http://www.[facility].org/ Services Available By Self-Referral: Adult Gender Specific Residential (allows couples and children) Adult Outpatient Youth Outpatient [employer] Website: http://www.voaor.org/ Services Available By Self-Referral: Adult Outpatient or en Espaol You can also call your insurance directly, as there may be other options covered through pr ivBrandtree insurance. Harm Reduction Drug Use The safest [...] getting into trouble, help them to s [facility] help Let first aid responders know [...] in, knowing that it will soon pass. Retirement Resources [facility] [address] [place] [address] http://www.[facility].Hygeia Personal Care Products 12 step/AA program: 7 p.m. Wed. & Sat. Men's showers: 5:45-6:30 p.m. Mon-Sun Women's shower s: 10:30-11:15 a.m. Wed. Dinner: 5:45 p.m. Sun-Sat Retirement: 5:45 p.m. Men only, TB card/sobriety required. $5 a night for jail, meal included. -Sun. Sign up @ 5:45p.m. 12-step/AA program offered. Men's and women's showers available for $1. Bus s ervice: 6 [place] [facility] [address] [place] [address] http://www.Bridgewater Systemson.org check in 5:45 p.m. Transit: Max All, 16,12,19,20. Men only, TB card, confucianist service not required, check in 5:45 p.m., lottery system, clean a nd sober. Hours: 24 hours for the [employer]. www.miamirescuemission.org [employer] ([employer]) [address] [place] [address] http://www.tprojects.org Sign-up, 8 a.m.-12p.m.; 1p.m.- 7:30 p.m., Mon.-Fri. Call for details and to be placed [facility] wait list. Women's shower sign-up 8 a.m. Transit: Marydel Green/Yellow, 4, 9, 17, 77 TB card required, waiting list, case management available, clean/sober (case management carlos ilable); [facility] (men only); [facility] (women only) Bus: Fareless CallMD. Transitional Housing Double [employer]oods [phone] http://www.WeatherBug.org Hours: 24/7 Independent living for disabled and dual-diagnosis. Priority for chronically mentally ill. [facility] [address] [place] [address] http://RoboDynamics.org 8:30a.m.- 5p.m. Mon.-Fri. Transit: 4, 6, 33, 44 Mental illness housing referrals; full service mental health clinic; client property manage ment/ payee service; DUII program. [facility] [address] [place] [facility] [address] Intake Line: [phone] (initial appointment) http://www.RoboDynamics.org 24 hours Transit: MAX Homeless and mentally ill persons only, 30 single room occupancy units, transitional housin g; Waitlist for permanent housing. Must be referred through a [place] clinic. [facility] [address] [facility] [place] [address] http://www.SpreadShout[facility].org 8:30 a.m.- 5:00 p.m. Mon-Fri. Transit: , Streetcar Maintaining fourteen transitional apartments where homeless families can stay for up to 6 m ont. Supporting families with long-term service coordination, advocacy, and referrals. komootUmesh) [address] [place] [phone] http://www.humansolutions.org 8 a.m.-5 p.m. Mon.-Fri. Closed noon-1 p.m. daily. Transit: 50, 53. A family jail. Call daily for availability. Support to stabilize households that are moiz eless. Families pay 30 percent of their adjusted monthly income. Utility assistance also carlos ilable. [facility] [address] [address] http://www.impact.org Hours:9 a.m.-7 p.m., Sun.-.; Sunday by appointment only. Transit: 19, 20, MAX blue line Emergency Housing Assistance program through vouchers for short-term motel stays, placement in local shelters and direct rent assistance for families with children only. Assistance wi th utility bills and some ashley assistance for necessary items. Short-term case management an d bi-lingual information services. [employer] [address] [place] [address] [place] [address] http://www.Taggable 10 a.m.-3 p.m. Sun.-Sun. Transit: Max Blue, Green, Red, 72, 77 Provides day time drop-in center with coffee, showers, bathrooms, hygiene products, laundry vouchers, mail, limited locker storage, computer use, and free telephone use for both indiv iduals and families. [facility] [place] [address] Transitional housing for adults with severe mental illness. Must be referred through a [facility] macy clinic or other social service agency. Must have a caser in; 2 month temporary césar herring. [facility] [address] [place] [address] http://www.[facility].org 9a.m.-5p.m. Mon. Wed.; 9a.m.-8p.m.Thur.; 10a.m.-2p.m. Fri. To assist low-income and homeless families meet basic human needs. _To educate, encourage a nd support families to begin the process toward self-sufficiency. Services require proof of income and follow the Federal Poverty Guidelines. Serving , , and [facility]. documented in this encounter Medications at [...] of this note might be different from th e original. ORTHOPAEDIC SURGERY INPATIENT PROGRESS NOTE Date: 06/11/2020 [...] Appointments: Follow up with Dr. Coffman in [place] 3 weeks from surgery. Disposition: Discharge to SNF later today. Has been accepted to SNF in [place]. Spoke wi th Dr. Parra's clinic in [place] and they are willing to take care of Mr. An' care p ost operatively. Have provided an imaging disk and operative report. Lamine Aguilar MD | PGY-3 [facility] Department of Orthopaedics and Rehabilitation Personal Pager [phone] | For urgent, after-hour, questions please page [phone] ondLamine MD - 020 6:21 AM PDT [...] events/Subjective: Pain well controlled Slept well overnight SNF Objective: Vitals: Pulse: 74 BP: 114/51 Temp: [...] are likely to leave this antibitoic dante danny wan. He seems to understand and we both [...] Appointments: Follow up with Dr. Coffman in [place] or Dr. Joselito sumner 3 weeks from surgery. Disposition: Has been accepted to SNF in [place] and patient would like to return there d ue to proximity to his social system. Will reach out again to Dr. Parra's office in [place] today. If surgeon there is unable to provide care, will look at getting patient to SNF hardik ser to [place]. Lamine Aguilar MD | PGY-3 [facility] Department of Orthopaedics and Rehabilitation Personal Pager [phone] | For urgent, after-hour, questions please page [phone] amine Aguilar MD - 020 8:13 AM PDT ORTHOPAEDIC [...] to discharge patient closer to home in [place]. If surgeon there is unable to provide care, will look at getting patient to SNF closer to [place]. Lamine Aguilar MD | PGY-3 [facility] Department of Orthopaedics and Rehabilitation Personal Pager [phone] | For urgent, after-hour, questions please page [phone] Deepthi Ram [facility] - 06/07/2020 7:34 AM PDT RLE: In [...] Appointments: TBD Disposition: Hoping to discharge to [place] near home, JUAN PABLO Barnett Orthopaedic Trauma Surgery Pager: [phone] Phone [phone] Lo Duggan MD - 06/06/2020 10:35 AM [...] started Lo Calderon MD Orthopaedic Surgery, PGY1 [id number] ope, Carolyn Hunt MD - 0 06/05/2020 1:47 PM PDT [facility] Progress Note Hospital Day #4 ID: [...] Date 06/05/20 07 - 06/06/20 0659 Shift [phone] 24 Hour Total INTAKE Shift Total OUTPUT [...] with you. Carolyn Ly MD Clinical Hospitalist [facility] Pager [phone] I spent 37 minutes in the care of this patient. Greater than 50% of the time was spent cou nseling and coordination of care, including treatment of neuropathy, exercise and LE edema. o Calderon MD - 0 06/05/2020 9:04 AM PDT [...] (06/02) Lo Calderon MD Orthopaedic Surgery, PGY1 [id number] o Calderon MD - 0 06/04/2020 10:18 AM PDT [...] (06/02) Lo Calderon MD Orthopaedic Surgery, PGY1 [id number] Demetria Chapman MD - 06/03/2020 8:07 AM [...] DEMETRIA LAUREANO MD Chief Resident Orthopedic Surgery [id number] [facility] [id number] [place] [address] ricila Trent - 0 06/02/2020 5:04 PM [...] started Lo Calderon MD Orthopaedic Surgery, PGY1 [id number] eterson, Yasmeen Solorio MD - 06/01/2020 11:30 PM PDT [facility] DEPARTMENT OF ORTHOPAEDICS & REHABILITATION HISTORY & [...] Retired Lives alone in an apartment in [place] MEDICATIONS: Prior to Admission Medications Prescriptions acetaminophen [...] this time The orthopaedics consult pager is #[phone], please call with questions. Yasmeen Herr MD Orthopaedic Surgery Resident, PGY-2 [facility] [phone] Associated attestation - Malik Mcmillan MD - [...] of Orthopedics & Rehabilitation - Orthopaedic Trauma [facility] documented in this encounter Consult Notes Carolyn Ly MD - 06/11/2020 10:17 AM PDT [facility] Progress Note Hospital Day #10 ID: [...] mass index is 29.86 kg/m. Date 06/05/20 07 - 06/06/20 0659 Shift [id number] [phone] 24 Hour Total INTAKE Shift Total OUTPUT [...] with you. Carolyn Ly MD Clinical Hospitalist [facility] Pager [phone] I spent 39 minutes in the care of this patient. Greater than 50% of the time was spent cou nseling and coordination of care, including treatment of neuropathy, L heal ulcer, LE edema, lasix dosing and B12 repletion. ope, Carolyn Hunt MD - 0 06/10/2020 4:31 PM PDT [facility] Progress Note Hospital Day #9 ID: [...] Date 06/05/20 07 - 06/06/20 0659 Shift [id number] [phone] 24 Hour Total INTAKE Shift Total OUTPUT [...] with you. Carolyn Ly MD Clinical Hospitalist [facility] Pager [phone] I spent 36 minutes in the care of this patient. Greater than 50% of the time was spent cou nseling and coordination of care, including treatment of neuropathy, L heal ulcer, LE edema. ope, Carolyn Hunt MD - 0 06/09/2020 9:16 AM PDT [facility] Progress Note Hospital Day #8 ID: [...] Date 06/05/20 07 - 06/06/20 0659 Shift [id number] [phone] 24 Hour Total INTAKE Shift Total OUTPUT [...] 3 results) - Refreshable Recent Labs 06/07/20 0606/08/2062906/09/20 0325 WBC 5.78 6.62 7.37 HB 12.2* [...] with you. Carolyn Ly MD Clinical Hospitalist [facility] Pager [phone] I spent 39 minutes in the care [...] are no prior exams available for comparison. [employer] Duplex B/L (06/02) "Bilateral: The duplex scanner [...] on AC per choice s/p discussion w/outpatient churn operator. KERRI [id number] (age, HTN hx). Plan: - Continue home [...] Unable to find EGD records (not at [facility], not at [facility]), pt doesn't remember where the pr [...] restarting tamsulosin 0.4 mg daily Aida Murrieta Sub-[employer]oolen Mill Utility Worker, [facility] Fourth Year Medical Student Pager #[phone] signed by Carolyn Ly MD at 06/08/2020 [...] surgical prospective post operatively. Carolyn Ly MD Parachute Panel Joiner Clinical and Teaching Hospitalist Services [facility] Pager [phone] I spent 37 minutes in the care [...] on AC per choice s/p discussion w/outpatient churn operator. KERRI [id number] (age, HTN hx). Plan: - Continue home [...] Unable to find EGD records (not at [facility], not at [facility]), pt doesn't remember where the pr [...] restarting tamsulosin 0.4 mg daily Aida Murrieta Sub-[employer] Utility Worker, [facility] Fourth Year Medical Student Pager #[phone] signed by Carolyn Ly MD at 06/07/2020 [...] for VTE following surgery. Carolyn Ly MD Parachute Panel Joiner Clinical and Teaching Hospitalist Services [facility] Pager [phone] I spent 42 minutes in the care of this patient. Greater than 50% of the time was spent cou nseling and coordination of care, including treatment of DVT, leg wounds, discharge planning . Carolyn Ly MD - 06/06/2020 2:33 PM PDT [facility] Progress Note Hospital Day #5 ID: [...] Date 06/05/20 07 - 06/06/20 0659 Shift [phone] 24 Hour Total INTAKE Shift Total OUTPUT [...] with you. Carolyn Ly MD Clinical Hospitalist [facility] Pager [phone] I spent 36 minutes in the care of this patient. Greater than 50% of the time was spent cou nseling and coordination of care, including treatment of neuropathy, exercise, surgical plan and LE edema. hiangChioma, PharmD - 06/05/2020 2:34 PM PDTAnticipate patient will be transitioned from heparin IV drip to ap ixaban (Eliquis) 5 mg BID at time of discharge or sooner. Due to patient's copay of ~$183 per month. Enrolled patient in [facility] Medication Assistance Program ( ) and [...] A signed copy of patient's 2018 or 2019 Federal Tax 1040 form. If patient did not file taxes, one (1) of the following must be provided: ? a copy of 2019 W2 or 1099 ? a copy of 2019 Social Security benefits letter or pension award ? recent payVennli stubs showing year to date totals (30 [...] He expressed understanding and questions were answered. [facility] will follow up with patient in 2 weeks. [facility] is aware that patient is currently admitted . Chioam Hilliard PharmD 06/05/20 Hoa Dejesus RN - [...] stretch net or angelito wrap Change Q M-W- and prn Additional recommendations: Offload pressure at all times by floating heel off the surface of the mattress. MediHoney Please have your BINGO USHER order MediHoney for this patient through [employer] Web Catalog. T he item number for this product is MediHoney Gel #[id number]. Please only order 1-2 dressings at a [...] be, and he wasn't sure. We checked [facility] and [facility] Sy stems and neither facility had [...] are no prior exams available for comparison. [employer] Duplex B/L (06/02) "Bilateral: The duplex scanner [...] on AC per choice s/p discussion w/outpatient churn operator. KERRI [id number] (age, HTN hx). Plan: - Continue home [...] trying to find EGD records (not at [facility], not at [facility]) #Alcohol Use Disorder Status: Chronic, uncontrolled. Drinks 72oz of beer a day. No history of withdrawal symptoms per patient and per last admission. Plan: -Discontinue CIWA protocol -Recommend folic acid 1mg and thiamine 100 mg daily for 3 doses -Appreciate IMPACT reccs #BPH Status: Controlled. Pt currently asymptomatic Plan: -Recommend restarting tamsulosin 0.4 mg daily Aida Murrieta Sub[employer] Utility Worker, [facility] Fourth Year Medical Student Pager #[phone] signed by Carolyn Ly MD at 06/04/2020 [...] recommend B12 repletion . Carolyn Ly MD Parachute Panel Joiner Clinical and Teaching Hospitalist Services [facility] Pager [phone] I spent 37 minutes in the care of this patient. Greater than 50% of the time was spent cou nseling and coordination of care, including treatment of DVT, leg wounds. Leilani Nixon NP - 06/03/2020 3:26 PM PDTAssociated Order(s): IP CONSULT TO ADDICTION SD DICINEThe following clinical information related to alcohol or drug abuse is CONFIDENTIAL an d protected by Federal Law. ACCESS TO THIS INFORMATION IS ON A JCFI-UD-HSEI BASIS ONLY AND I S PROVIDED FOR [...] [facility] for resources. Additionally, if patient is interested in meeting wi us next week, please do not hesitant [...] alcohol use disorder. , Leilani Nixon, MSN, GENERAL MERCHANDISE MANAGER-C pager [phone] Improving Addiction Care Team (IMPACT) Chioma Benavidez [...] or tamsulosin prior to this admission. His [facility] pharmacy also confirmed that they do not [...] Information: Patient and Pharmacy Pharmacy records from: [id number], [address] [place] [address]; Tel: Reliability: Reliable Anticipated Needs for Discharge: [...] fill Spoke with Medication Assistance Program at [facility] - submitted application for Eliquisbakari round time for response is about 2-3 weeks. Discussed cost with patient - he prefer to pay for Eliquis rather than use warfarin. He sta katlin that he can afford $183.07 coinsurance per month if the duration of therapy is 3 months. All questions concerning medications, including OTC and herbal products, were addressed. For questions regarding this information please contact pharmacy, pager [phone] Chioma Hilliard PharmD Aida Deleon - 06/03/2020 [...] on AC per choice s/p discussion w/outpatient churn operator. KERRI [id number] (age, HTN hx). Plan: - Continue home [...] trying to find EGD records (not at [facility], not at [facility]) #Alcohol Use Disorder Status: Chronic, uncontrolled. Drinks 72oz of beer a day. No history of withdrawal symptoms per patient and per last admission. Plan: -Recommend CIWA protocol one more day -Recommend folic acid 1mg and thiamine 100 mg daily for 3 doses -IMPACT consult placed #BPH Status: Controlled. Pt currently asymptomatic Plan: -Recommend restarting tamsulosin 0.4 mg daily Aida uMrrieta [employer] Utility Worker, [facility] Fourth Year Medical Student Pager #[phone] signed by Malik Craig MD at 06/03/2020 [...] information, whe n appropriate. Malik Craig MD Parachute Panel Joinerepic cadence analyst Division [facility] Medicine Pager [phone] I spent 51 minutes of floor/unit time [...] with outpatient cardiologis t. On ASA 81. [id number] (age, HTN hx). Plan: - Continue home digoxin 125 mcg daily - Resume home ASA 81 per surgeon's comfort - Goal resting rate < 110, continue to monitor #Elevated BNP Etiology: Unclear. In favor of atrial stretching due to volume status. Last echo 08/2018 [facility] EF 65-70%, mild bi-atrial enlargement, no clinically [...] home tamsulosin 0.4 mg daily Aida Murrieta [employer] Utility Worker, [facility] Fourth Year Medical Student Pager #[phone] Associated attestation - Malik Craig MD - [...] information, whe n appropriate. Malik Craig MD Parachute Panel Joinerepic cadence analyst Division of Hospital Medicine Pager [phone] I spent 50 minutes of floor/unit time [...] fract ure. On 05/24, pt went to [facility] in [place], [place] for right ankle pain and was [...] file Gets together: Not on file Attends nondenominational service: Not on file Active member of [...] Fib Not on AC. On ASA 81. [id number] (age, HTN hx). Per pt, after a risk/benefit discussio n with churn operator, decided against chronic AC. -Digoxin Level -Continue [...] 0 Rate of cardiac , non fatal VT, non fatal cardiac arrest 0 risk factors - 0.4% (very low) 1 risk factors - 0.9% (low) 2 risk factors - 6.6%, (moderate) 3 or >risk factors - 11% (high) ACC/AHA Perioperative Guidelines: 1. Need for emergency noncardiac surgery? b. No -> Proceed to next step 2. Active Cardiac Conditions? These conditions mandate further investigation and manageme nt. A. Acute VT within 7 days: no B. Unstable angina/Recent VT (7- 30 days): no C. Decompensated CHF: [...] opportunity to consult on this patient. 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 After being evaluated in the [place] ED 05/24 he spent >7 days in [...] understanding of the risks and OK with procee ding with surgery. - Proceed with surgery. [...] Mr Watson's care. Randy Lazo M.D., Ph.D. Parachute Panel Joiner Division of Hospitalist Medicine [facility] Pager: [phone] I spent 80 minutes in patient care [...] of antibiotics 09/09/2019 Osteomyelitis of left ankle ([facility]) 09/09/2019 MRSA (methicillin resistant Staphylococcus aureus) 09/09/2019 Atrial fibrillation ([facility]) 09/06/2019 Overview Note: persistent, CHADS2 VASc 3, [...] Resp SpO2 06/01/20 2227 06/01/20 2218 06/01/20 2227 06/01/20 22206/01/20 22206/01/202226 (!) 134/52 37.1 C 78 69 pulses/min [...] reassessments): ED Course as of Jun 02 259 Tue Jun 01, 20202325 EKG: Rate: 89 Rhythm: a-fib [place]: LAD Intervals: normal ST/T Segments: no ischemic [...] anesthetic history is: no prior complications. The [facility] sedation checklist, in accordance with [facility] policy, was used. The patient was [...] 0.5 mg 0.5 mg intravenous Given 06/02/2020 0050 LORazepam (ATIVAN) injection 0.5 mg 0.5 mg [...] (L) 0.70 - 1.30 mg/dL EGFR - [place] >60 >60 mL/min EGFR NON -[place] >60 >60 mL/min SODIUM, PLASMA (LAB) 135 [...] admitted to orthopedics Fab Bennett MD Sveta Castaneda RN - 06/02/2020 1:31 AM PDTReport to [...] Sveta Snyder RN at 06/02/2020 12:41 AM PDTSveta Snyder RN - 06/01/2020 10:25 PM PDTPt BIBA [...] DC, denies having XRs at that time. Yumiko Alvarado RN - 06/01/2020 10:15 PM PDTBed: 04RS Expected date: Expected time: Means of arrival: Comments: allen,d o Canas RN - 06/01/2020 6:[address] [facility] [facility]: Chronic edema to lower legs and [...] 10 Pt seen on 9K Time in: 08 Time out: 919 Patient was seen for [...] 4. Removal of right calcaneal pin 06/08/2020 Wallace 1.Right tibial and fibular osteotomy 2.Right ankle and subtalar joint fusions (hindfoot nail) 3.Right peroneal tendon release Status Update: Patient plans to DC to a SNF in [facility] via personal vehicle today. Patien t doesn't know what type of vehicle that his family is bringing in before the end of the PT session. CM updated that patient is going to go with a wheelchair van after PT session. Relevant Precautions: non weight bearing right lower extremity. Reviewed notes and xrays w [facility] Dr. Aguilar - confirmed left lower extremity weight bear as tolerated. Discussed use of CA M boot as option. Subjective: Patient agreeable to PT session. "Please don't help me. I want to be independen t." re: transfer supine > sitting EOB. Pain: did not rate Individuals present for session other than therapist and pt: rehab manager (Rose) and later CN A (Violetta) Objective: [...] PDTNursing Handoff Patient Daily Goal: Rest (06/06/202016) [facility] IP NURSE HANDOFF: Cespedes hospital course [...] family member to transport him (SNF in [facility]) andoff - Mandi Kearney RN - 06/10/2020 10:21 AM PDTNursing Handoff Patient Daily Goal: Rest (06/06/202016) [facility] IP NURSE HANDOFF: Cespedes hospital course [...] PDTNursing Handoff Patient Daily Goal: Rest (06/06/202016) [facility] IP NURSE HANDOFF: Cespedes hospital course [...] 4. Removal of right calcaneal pin 06/08/2020 Wallace 1. Right tibial and fibular osteotomy 2. Right ankle and subtalar joint fusions (hindfoot nail) 3. Right peroneal tendon release Relevant Precautions: non weight bearing right lower extremity. Reviewed notes and xrays with Dr. Aguilar - confirmed left lower extremity weight bear as tolerated. Discussed use of C AM boot as option. Subjective: patient reports doing well, would like to go to [facility], awaiting weight bear as tolerated status to [...] PDTNursing Handoff Patient Daily Goal: Rest (06/06/202016) [facility] IP NURSE HANDOFF: Cespedes hospital course [...] PDTNursing Handoff Patient Daily Goal: Rest (06/06/202016) [facility] IP NURSE HANDOFF: Cespedes hospital course [...] splint Barriers to discharge: mobility andoff - Costa Amaya RN - 06/08/2020 2:34 PM PDTNursing Handoff Patient Daily Goal: Rest (06/06/202016) [facility] IP NURSE HANDOFF: Cespedes hospital course [...] sling Barriers to discharge: Surgical course Steve - Patricia, Tejas andersen RN - 06/08/2020 12:00 PM PDTMenimesh Phase I Discharge Criteria (Stable For Transfer): [...] pain medication information: none Functional Epidural: No WIND FARM OPERATIONS MANAGER: No Respiratory: RR: 13 , O2 Sat: [...] Procedure Stop SunJun 08, 2020 1056 Location: [facility] Surgeon(s) and Role: * Marty Fam MD - Primary Anesthesiologist: Anesthesiologist: Esteban Rosas MD Anes Resident: Alka Rosales MD Staff: Abrasive Grader: Joe Velasquez RN Scrub: ST Debbie Abrasive Grader Relief: Jay Cavanaugh RN Abrasive Grader Orientee: Chito Boroke RN Fitness Centre Manager: Lamine Aguilar MD Pre Op Dx: RIGHT CHARCOT ANKLE Post Op Dx: same Procedure: Right tibial and fibular osteotomy Right ankle and subtalar joint fusions (hindfoot nail) Right peroneal tendon release Anesthesia: Regional/Block And GETA Complications: None Findings: N/A Estimated Blood Loss: 450 Drains: * No LDAs found * Specimens None Implants/Grafts Implant Name Model No. Inv. Item Serial No. Independent Sales Representative Lot No. LRB No. Used Action Size NAIL 11.5MM 16CM RIGHT HINDFOOT TRIGEN INTRAMEDULLARY FUSION - [id number] NAIL 11. 5MM 16CM RIGHT HINDFOOT TRIGEN INTRAMEDULLARY FUSION [employer] [id number] Right 1 Impla nted SCREW BONE 5MM 70MM TRIGEN FEMUR LOW PROFILE - [id number] SCREW BONE 5MM 70MM TRIGE N FEMUR LOW PROFILE [employer] [id number] Right 1 Implanted SCREW BONE 5MM 37.5MM TRIGEN FEMUR LOW PROFILE - [id number] SCREW BONE 5MM 37.5MM T RIGEN FEMUR LOW PROFILE [employer] [id number] Right 1 Implanted SCREW BONE 5MM 85MM TRIGEN FEMUR LOW PROFILE - [id number] SCREW BONE 5MM 85MM TRIGE N FEMUR LOW PROFILE [employer] [id number] Right 1 Implanted SCREW BONE 5MM 30MM TRIGEN FEMUR LOW PROFILE - [id number] SCREW BONE 5MM 30MM TRIGE N FEMUR LOW PROFILE [employer] [id number] Right 1 Implanted SCREW BONE 5MM 30MM TRIGEN FEMUR LOW PROFILE - [id number] SCREW BONE 5MM 30MM TRIGE N FEMUR LOW PROFILE [employer] [id number] Right 1 Implanted Indications for Procedure(s): Diane [...] wishes to proceed. Surgical Findings In Brief: [place] edema in RLE Description of the procedure(s) [...] Procedure Start SunJun 08, 2020 0820 Location: [facility] Surgeon(s) and Role: * Marty Fam MD - Primary Anesthesiologist: Anesthesiologist: Esteban Rosas MD [facility] Resident: Alka Rosales MD Staff: Abrasive Grader: Joe Velasquez RN Scrub: ST Debbie Abrasive Grader Relief: Jay Cavanaugh RN Abrasive Grader Orientee: Chito Brooke RN Fitness Centre Manager: Lamine Aguilar MD Pre Op Dx: RIGHT CHARCOT ANKLE Right leg cellulitis Right heel chronic heel ulcer Post Op Dx: Same Procedure: Right hindfoot fusion Anesthesia: General Estimated Blood Loss: 400mL Specimens None Implants/Grafts Implant Name Model No. Inv. Item Serial No. Independent Sales Representative Lot No. LRB No. Used Action Size NAIL 11.5MM 16CM RIGHT HINDFOOT TRIGEN INTRAMEDULLARY FUSION - [id number] NAIL 11. 5MM 16CM RIGHT HINDFOOT TRIGEN INTRAMEDULLARY FUSION [employer] [id number] Right 1 Impla nted SCREW BONE 5MM 70MM TRIGEN FEMUR LOW PROFILE - [id number] SCREW BONE 5MM 70MM TRIGE N FEMUR LOW PROFILE [employer]HEW [id number] Right 1 Implanted SCREW BONE 5MM 37.5MM TRIGEN FEMUR LOW PROFILE - [id number] SCREW BONE 5MM 37.5MM T RIGEN FEMUR LOW PROFILE [employer] [id number] Right 1 Implanted SCREW BONE 5MM 85MM TRIGEN FEMUR LOW PROFILE - [id number] SCREW BONE 5MM 85MM TRIGE N FEMUR LOW PROFILE [employer] [id number] Right 1 Implanted SCREW BONE 5MM 30MM TRIGEN FEMUR LOW PROFILE - [id number] SCREW BONE 5MM 30MM TRIGE N FEMUR LOW PROFILE [employer] [id number] Right 1 Implanted SCREW BONE 5MM 30MM TRIGEN FEMUR LOW PROFILE - [id number] SCREW BONE 5MM 30MM TRIGE N FEMUR LOW PROFILE [employer] [id number] Right 1 Implanted Complications: N/A Lamine Aguilar MD Post Operative Plan: Antibiotics: Ancef x 72hr Weight bearing: NWB RLE ROM: As tolerated through knee. Maintain splint Post operative Images: None Special: Chemothromboppx per primary. Ok to start POD0 lan of Care - Brina Rodriguez RN - 06/08/2020 9:[address] - Care Management Reason for Admission: R [...] Retired lives alone in an apartment in [place]. He must ascend 13 steps to enter [...] WC. Discharge Plan: NWB, [facility] [place] [facility]. Warm Hand-Off: Unit CM Guillermina Oden and Nilsisabel Amador given hand-off Please see other disciplines' progress notes for their discharge recommendations. Will cont inue to follow for 90 day episode post discharge. Ld Rodriguez BSc, BSN, MANDO [facility] CJR/WALT Esl Professor C: [phone] Pager: [phone] @[email or web address] Mail Code: [facility] 8L andoff - Alonso Lin RN - 06/08/2020 12:47 AM PDTNursing Handoff Patient Daily Goal: Rest (06/06/202016) [facility] IP NURSE HANDOFF: Cespedes hospital course [...] R ankle Barriers to discharge: Surgical course Steve - [place] RN - 06/07/2020 8:02 PM PDTNursing Handoff Patient Daily Goal: Rest (06/06/202016) [facility] IP NURSE HANDOFF: Cespedes hospital course [...] Barriers to discharge: Surgical course lan of Gonzalez Monroy - 06/07/2020 1:50 PM PDT Physical Therapy [...] in set up , provided call light, erkha julia and urinals all in reach. LANKENAU [...] care (He would like to disch to [facility] in [place].) Equipment recommendations: to be determined Cathie Doss, COMMUNITY DIETITIAN [id number] Steve - Britt Amaya RN - 06/06/2020 2:01 PM PDTNursing Handoff Patient Daily Goal: RN advocate for mobilization, pain control, hygiene, and pulm exercises (06/05/201953) [facility] IP NURSE HANDOFF: Cespedes hospital course [...] PDTNursing Handoff Patient Daily Goal: Rest (06/06/202016) [facility] IP NURSE HANDOFF: Cespedes hospital course [...] pain control, hygiene, and pulm exercises (06/05/201953) [facility] IP NURSE HANDOFF: Cespedes hospital course [...] care (He would like to disch to [facility] in [place].) Equipment recommendations: to be determined Cathie Doss, COMMUNITY DIETITIAN [id number] lan of Care - Bienvenido Esha, OT - 06/04/2020 11:35 AM PDTFormatting of this note might be different from the orig inal. Occupational Therapy Evaluation [id number] DIANE AN Date of : 1950 Start [...] judgement, safety , problem solving e tc DAINE AN will benefit with skilled OT to [...] chair and get to moving" (06/03/20 0852) [facility] IP NURSE HANDOFF: Cespedes hospital course [...] 5:15 PM PDTReferral Source: Handoff for [facility] Consult: Alcohol d ependence - Brief intervention [...] use resources in Pt's AVS. MJ Bustamante, ROBBIE Evening/Weekend Social Work Pager: [phone] lan of Care - Shruthi Tanner LCSW - 06/03/2020 3:55 PM PDTReason for referral: SBIRT Referral source: [facility] SW consult referral Assessment/Intervention: SW acknowledged [facility] consult referral for SBIRT. Per chart review, pt drinks 6 beers woody ly. SW attempted multiple times to reach pt by phone (this underwriter is working remotely today) but pt's phone kept ringing busy each time. Plan (including collaboration with other disciplines): SW handing off to Evening SW to complete in person if able to, otherwise this underwriter will r e-attempt tomorrow. ROBBIE Lao Float Pasteurizer Pager [phone] lan of Mavis - Danny Francis, PT - 06/03/2020 2:17 PM PDTFormatting of this note might be different from t he original. Physical Therapy Evaluation [id number] DIANE [facility] Day: 2 Date of : 1950 Start [...] to aid in disch planning Relevant Precautions: ERMELINDA DEGROOT Past Medical History: Diagnosis Date Atrial fibrillation (HCC) Neuropathy History reviewed. No pertinent past surgical history. Present at bedside other than patient and physical therapist: -- Subjective: feels like an invalid, he would like to go to [facility] in [place], e feels it is an excellent facility. He [...] Patient / Family Goal: get better Communication: German Barriers: None Pain: no reports of pain [...] 20.1 Home with home care = 17.9 residential facility = 13.6 Inpatient rehabilitation facility = 13.6 truck terminal manager care = 11.5 Vivienne Parra. The use of functional outcome measure in acute care to guide discharg e recommendations. J Acute Supervisor Rod Placing. 2012;3(3):248 Pt Education/Treatment: (1440 to 1512) S: Thinks he needs to have a [...] as appropriate Time in: 141 Time out: 151 Patient was seen for direct one on [...] last September 2019, he was admitted to [facility] for management of a 3 year [...] shall serve as the discharge summary. Danny Collier, PT, DPT Pager: [phone] andoff - Mickey Bains RN - 06/03/2020 2:15 PM PDTNursing Handoff Patient Daily Goal: "get up to chair and get to moving" (06/03/20 0852) [facility] IP NURSE HANDOFF: Cespedes hospital course [...] -ordered air mattress today Mobility: sling to chairPennie - per pt he hasn't been walking in 2 weeks CIWA - pt reports about 6 beers daily, scoring low Next hep level is by 1700 andoff - Radha Serrano RN - 06/03/2020 8:10 AM PDTNursing Handoff Patient Daily Goal: to eat tonight (06/02/20 1611) [facility] IP NURSE HANDOFF: Cespedes hospital course [...] in place -rec air mattress today Mobility: Bedrest, R. LE NWB - per pt he [...] pain medication information: none Functional Epidural: N/A WIND FARM OPERATIONS MANAGER: N/A Respiratory: RR: 17 , O2 Sat: [...] Procedure Start SunJun 02, 2020 1356 Location: [facility] Surgeon(s) and Role: * Malik Mcmillan MD - Primary Anesthesiologist: Anesthesiologist: Raimundo Hernandez MD ASSOCIATION EXECUTIVE: John Villarreal CRNA Staff: Abrasive Grader: Ni Ramirez RN Scrub: ST Debbie Wind Farm Operations Manager: Varun Patel, RT Fitness Centre Manager: Alana Willard MD; Demetria Laureano MD Pre [...] of Service: 06/02/2020 Attending Surgeon:Malik Mcmillan MD Pantograph Watcher(s):MD Alana Ferrera MD Preoperative Diagnosis: Right ankle [...] likely that the reason he has this rgmtgm-qe-zwlzjvmo scar is likely because he has been [...] course of action. Malik Mcmillan MD ZMW/ARCHIEL /[id number] signed by Malik Mcmillan MD at 06/04/2020 8:29 AM PDTComPontiac General Hospital - Yas Ojeda - 06/01/2020 9:53 [...] [facility] | [address] | [place] [address] | | | SERVICES, CORE | ZULMA [...] | | | LABORATORY | | | [place] | | | SERVICES, | | | [...] | + + + + + | [facility] | [address] | [place] [address] | | | FERMÍN ZABALA | ZULMA [...] | | its performance characteristics determined by [facility] [employer]. It | | | has not been [...] [facility] | [address] | [place] [address] | | | MICROBIOLOGY LAB | Zulma Martni | | | + + + + + | [facility] | [address] | [place], [place] | | | MICROBIOLOSCARY LAB | Zulma Martin | [address], [place] | | + + + + [...] [facility] | [address] | [place] [address] | | | SERVICES, CORE | PARK [...] [facility] | [address] | [place] [address] | | | FERMÍN ZABALA | ZULMA [...] | + + + + + | [facility] | [address] | [place] [address] | | | FERMÍN ZABALA | ZULMA [...] 97 | 70 - 99 mg/dL | [facility] - | | | GLUCOSE, | [...] [facility] | [address] | [place], [place] | | | LUISA POINT OF CARE | [address] | [address] | | | TESTS | | | [...] [facility] | [address] | [place] [address] | | | SERVICES, | [address] [...] [facility] | [address] | [place] [address] | | | SERVICES, | [address] [...] + | [facility] | [address] [facility] | [place] [address] | | | SERVICES, CORE | ZULMA [...] [facility] | [address] | [place] [address] | | | SERVICES, CORE | PARK [...] + | [facility] | [address] [facility] | [place] [address] | | | SERVICES, FERMÍN | ZULMA [...] | | | LABORATORY | | | [place] | | | SERVICES, | | | [...] | 10 | 8 - 25 | [facility] | | | INE RATIO | | [...] | + + + + + | [facility] | [address] | [place] [address] | | | SERVICES, FERMÍN | ZULMA [...] | + + + + + | [facility] | [address] | [place] [address] | | | SERVICES, CORE | ZULMA [...] | + + + + + | [facility] | [address] | [place] [address] | | | SERVICES, CORE | ZULMA [...] | | its performance characteristics determined by [facility] [employer]. It | | | has not been [...] [facility] | [address] | [place] [address] | | | MICROBIOLOGY LAB | Zulma Martin | | | + + + + + | [facility] | [address] | [place], [place] | | | MICROBIOLIGY ABEL | Zulma Martin | [address], | | + + + + + [...] + | [facility] | [address] [facility] | [place] [address] | | | SERVICES, CORE | ZULMA [...] | [facility] | [address] | [place] [address] | | | SERVICES, CORE | ZULMA [...] | | | LABORATORY | | | [place] | | | SERVICES, | | | [...] | 10 | 8 - 25 | [facility] | | | INE RATIO | [...] MDRD equation recommended by the National | [facility] | | Kidney Disease Education Program. [...] | [facility] | [address] | [place] [address] | | | SERVICES, CORE | ZULMA [...] [facility] | [address] | [place] [address] | | | SERVICES, FERMÍN | PARK [...] + | [facility] | [address] | [place] [address] | | | SERVICES, CORE | PARK [...] [facility] | [address] | [place] [address] | | | SERVICES, CORE | PARK [...] [facility] | [address] | [place] [address] | | | SERVICES, CORE | PARK [...] | + + + + + | [facility] | [address] | [place] [address] | | | SERVICES, CORE | ZULMA [...] [facility] | [address] | [place] [address] | | | SERVICES, CORE | PARK [...] [facility] | [address] | [place] [address] | | | SERVICES, CORE | PARK [...] | [facility] | [address] | [place] [address] | | | SERVICES, CORE | ZULMA [...] [facility] | [address] | [place] [address] | | | SERVICES, CORE | ZULMA [...] + | [facility] | [address] [facility] | [place] [address] | | | SERVICES, CORE | ZULMA [...] | [facility] | [address] | [place] [address] | | | SERVICES, CORE | PARK [...] [facility] | [address] | [place] [address] | | | SERVICES, CORE | ZULMA [...] [facility] | [address] | [place] [address] | | | SERVICES, CORE | PARK [...] [facility] | [address] | [place] [address] | | | SERVICES, CORE | PARK [...] not detected. The performance of the | [facility] | | HYDROPULPER OPERATOR HIV Combo test, with or without confirmation, [...] [facility] | [address] | [place] [address] | | | SERVICES, SPECIAL | PARK [...] | | | LABORATORY | | | [place] | | | SERVICES, | | | [...] MDRD equation recommended by the National | [facility] | | Kidney Disease Education Program. [...] | + + + + + | [facility] | [address] [facility] | [place] [address] | | | SERVICES, CORE | ZULMA [...] Silas Valdovinos MD 06/03/2020 8:39 AM Preliminary: Yonatan Taveras MD Dictation initiated: Silas Valdovinos MD 06/03/2020 8:37 [...] Dalteparin, LMWH: 0.70 - 1.20 U/mL | VJ, CORE | | Tinzaparin, LMWH: Therapeutic range [...] + + | Performing | Address | City/State[facility] | Phone Number | | Organization | | | | + + + + + | [facility] | [address] | [place] [address] | | | VJ, [facility] | [address] | | | + [...] [facility] | [address] | [place] [address] | | | FERMÍN ZABALA | ZULMA [...] [facility] | [address] | [place], [place] | | | [place] [facility] | [address] | [address] | | | TESTS | | | [...] Performed At | + -+ + | [facility] | [facility] DEPT OF | | [facility]chocardi[facility] [address] CARDIOLOGY | | [address] [place], [place] [address] Ph: | | | Pt Name: DIANEMarixa AN | | | Study Date/Time 06/02/2020 / 4:29:48 PMMRN: [id number] | | | Most recent prior: -Acc #: [id number] | | | No. previous echos: 0DOB: 1950 70 years Heart Rate: | | | 75 bpmHeight: 71.0 in Blood Pressure: | | | 146/67 mm/HgWeight: 190.0 lb Gender: | | | MBSA: 2.06 m | | | Order ID: [id number] Study | | | [facility]ographer: Pricila Trent RCSReferring Provider: RANDY Jones | [...] Report | | | electronically signed by: [id number] Yani Parra MD (06/02/2020, | | | [...] | | | |Report electronically signed by: [id number] Yani Parra MD (06/02/2020, 5:15:57 PM) | | | | | | | | | | | | Final | | + -+ + + + | Procedure Note | + + | Interface, Cardiology Results - 06/02/2020 5:16 PM [facility] | | [facility] Echocardiography Laboratory [address] [place] [address] | | [phone] Pt Name: DIANE | | ALLEN Study Date/Time 06/02/2020 / 4:29:48 PMMRN: [id number] | | Most recent prior: -Acc #: [id number] No. previous echos: 0DOB: | | 1950 70 years Heart Rate: 75 bpmHeight: 71.0 in Blood | | Pressure: 146/67 mm/HgWeight: 190.0 lb Gender: MBSA: | | 2.06 m | | Order ID: [id number] Study [facility] [place] | | [facility] Provider: RANYD Sawyer Performed: 2D, Color flow, | | [...] and indexed values Report electronically signed by: [id number] | | Yani Parra MD (06/02/2020, 5:15:57 [...] | | | |Report electronically signed by: [id number] Yani Parra MD (06/02/2020, 5:15:57 PM) | | | | | | | | Final | + + + + + + + | Performing | Address | City/State/[facility] | Phone Number | | Organization | | | | + + + + + | [facility] | [address] | [place], [place] | | | CARDIOLOGY | [address] | [address] | | + + + + + [...] [facility] | [address] | [place], [place] | | | LUISA POINT OF CARE | [address] | [address] | | | TESTS | | | [...] Note | + + | Service Account, [employer] In Interface - 06/02/2020 11:29 AM [...] [facility] | | | | | [facility] US | | | | [...] [facility] | [address] | [place] [address] | | | SERVICES, FERMÍN | PARK [...] | + + + + + | [facility] | [address] | [place] [address] | | | SERVICES, CORE | [address] [...] | | | | | determined by [employer] | | | | | | Laboratories. See | | | | | | Compliance Statement B: | | | | | | TouchBistro/CSPerformed | | | | | | By: [email or web address] | | | | | | [facility] | | | | | | [place], [place] [address]Suptcedtio | | | | | | Director: [...] [facility] | [address] | [place], [place] | | | UNIV PTH - INTFC | | [address] | | + + + + + [...] | + + + + + | [facility] | [address] | [place] [address] | | | SERVICES, SPECIAL | PARK [...] [facility] | [address] | [place] [address] | | | SERVICES, CORE | PARK [...] [facility] | [address] | [place] [address] | | | SERVICES, CORE | PARK [...] | + + + + + | [facility] | [address] | [place] [address] | | | SERVICES, CORE | [address] | | | + + + + + CULTURE, BLOOD BACTI & YEAST [facility] (06/02/2020 6:28 AM PDT) + + + [...] [facility] | [address] | [place] [address] | | | SERVICES, CORE | PARK [...] | [facility] | | considered for monitoring petroleum terminal plant operator glycemic control in patients with: | LABORATORY [...] | [facility] | [address] | [place] [address] | | | SERVICES, SPECIAL | PARK [...] [facility] | [address] | [place] [address] | | | SERVICES, CORE | PARK [...] [facility] | [address] | [place] [address] | | | SERVICES, CORE | PARK [...] | [facility] | [address] | [place] [address] | | | SERVICES, CORE | [address] [...] [facility] | [address] | [place] [address] | | | SERVICES, FERMÍN | [address] [...] Fact sheet for patients: | | | https://www.fda.gov/media/690094/download | | + + + + + + + + | Performing | Address | City/State/Zipcode | Phone Number | | Organization | | | | + + + + + | [facility] | [address] | [place] [address] | | | SERVICES, CORE | [address] [...] Note | + -----+ | Service Account, [employer] In Interface - 06/02/2020 8:15 AM PDT [...] Note | + -----+ | Service Account, [employer] In Interface - 06/02/2020 8:15 AM PDT [...] | | its performance characteristics determined by [facility] [employer]. It | | | has not been [...] | + + + + + | [facility] | [address] | [place] [address] | | | MICROBIOLOGY LAB | [address] | | | + + + + + | [facility] | [address] | [place], [place] | | | LUIS ROMAN | [address] | [address], [place] | | + + + + [...] + + + + + + | FREDY | [address] | [place] | [facility] [...] DEPT OF | [address] | [place], [place] | | | CARDIOLOGY | [address] | [address] | | + + + + + [...] [facility] | [address] | [place] [address] | | | SERVICES, | [address] [...] | + + + + + | [facility] | [address] | [place] [address] | | | SERVICES, | [address] [...] | [facility] | [address] | [place] [address] | | | SERVICES, CORE | PARK [...] + | [facility] | [address] | [place] [address] | | | SERVICES, CORE | PARK [...] | [facility] | [address] | [place] [address] | | | SERVICES, | [address] [...] + | [facility] | [address] [facility] | [place] [address] | | | SERVICES, CORE | [address] [...] | | | LABORATORY | | | [place] | | | SERVICES, | | | [...] MDRD equation recommended by the National | [facility] | | Kidney Disease Education Program. [...] | + + + + + | [facility] | [address] | [place] [address] | | | SERVICES, CORE | [address] | | | + + + + + ED INFORMATION EXCHANGE (06/01/2020 10:14 PM PDT) + + | Specimen | + + | | + + + + + | Narrative | Performed At | + + + | [facility]?NOTIFICATION?06/01/2020 22:14?DIANE AN?MRN: | [facility] | | [id number] Criteria Met 5 Visits In 12 Months [...] 5 MG | | | TABLET 30 [facility] 2 28.125 Rx Summary Metric Count CS II-V | | | Rx 1 CS-II Rx 1 Quantity Dispensed 390 [facility] 2 | | | Unique Pharmacies 2 Benzos 0 Opioids 1 Long Acting Opioids 0 | | | E.D. Visit Count (12 mo.) Facility Visits [facility] and | | | [facility] 2 [facility] 3 Total 5 Note: | | | Visits indicate total known visits. Recent Emergency Department | | | Visit Summary Date Facility City State Type Diagnoses or Chief | | | Complaint Jun 01, 2020 [facility] [place] | | | [place] Emergency 10,151. Righrt ankle fracture and dislocation | | | Jun 01, 2020 [facility] [place] Emergency Chief | | | Complaint: LEG PAIN/ NON INJURY May 24, 2020 [facility] | | | 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 Emergency 10,151. cellulitis large ulcer, left lower | | | extremity 18,400. Other specified soft tissue disorders | | | 18,400. Infection and inflammatory reaction due to other internal ort | | | 18,400. Cutaneous abscess, unspecified Sep 03, [address] [facility] [address] | | | 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 Internal Medicine 18,400. Cutaneous abscess, | | | unspecified 18,400. Other specified soft tissue disorders | | | 18,400. Osteomyelitis, unspecified 18,400. Infection and | | | inflammatory reaction due to other internal ort Care Team | | | Provider Specialty Phone Fax Service Dates Unknown [facility] | | | Facility Current RIO HUERTA , | | | Family Medicine Sep 11, 2018 - | | | Current [employer] [facility] This patient has registered at the | | | [facility] Emergency Department For more | | | information visit: | | | [email or web address] | | | [email or web address] PLEASE NOTE: 1. Any care recommendations [...] or completeness of information provided. ? 2020 [employer] | | | [employer]. - www.[email or web address] | | + + + + + [...] HCL | | 5 MG TABLET 30 [facility] 2 28.125 Rx SummaryMetric Count CS II-V Rx 1 CS-II Rx 1 | | Quantity Dispensed 390 [facility] 2 [facility] 2 Benzos 0 Opioids 1 Long | | Acting Opioids 0 E.D. Visit Count (12 mo.)Facility Visits [facility] | | [place] 2 [facility] 3 Total 5 Note: Visits indicate total known | | visits. Recent Emergency Department Visit SummaryDate Facility City State Type | | Diagnoses or Chief Complaint Jun 01, 2020 [facility] [place] | | Emergency 10,151. Righrt ankle fracture and dislocation Jun 01, 2020 [facility] | | [place] Emergency Chief Complaint: LEG PAIN/ NON INJURY May [facility], 2020 [facility] | [facility] [place] [facility] [place] Emergency Localized edema Heart failure, unspecified | | Type 2 diabetes mellitus with diabetic polyneuropathy Pain in right lower leg | | Hypertensive heart disease with heart failure intermediate (current) use of aspirin | | Other fdc (current) drug therapy Unspecified atrial fibrillation Sep 03, 2019 | | [facility] [place] Emergency 10,151. cellulitis large | | ulcer, left lower extremity 18,400. Other specified soft tissue disorders 18,400. | | Infection and inflammatory reaction due to other internal ort 18,400. Cutaneous | | abscess, unspecified Sep 03, 2019 [facility] 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 | | Internal Medicine 18,400. Cutaneous abscess, unspecified 18,400. Other specified | | soft tissue disorders 18,400. Osteomyelitis, unspecified 18,400. Infection and | | inflammatory reaction due to other internal ort Care TeamProvider Specialty Phone Fax | | Service Dates Unknown [facility] Facility Current | | RIO HUERTA MD Family Medicine Sep 11, 2018 - | | Current [facility] PortalThis patient has registered at the [facility] Emergency Department For more information visit: | | [email or web address] PLEASE | | NOTE: 1. Any care [...] or completeness of information | | provided.? 2020 [employer]. - www.[email or web address] | |Jun 01, 2020 [facility] [place] Emergency | | 10,151. Righrt ankle fracture and dislocation | | | |Jun 01, 2020 [facility] [place] [facility] [place] Emergency Chief Complaint: LEG PAIN/ NON INJURY | |May 24, 2020 [facility] 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 Emergency | | 10,151. cellulitis large ulcer, left lower extremity | | 18,400. Other specified soft tissue disorders | | 18,400. Infection and inflammatory reaction due to other internal ort | | 18,400. Cutaneous abscess, unspecified | | | |Sep 03, 2019 [facility] [place] [facility] 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 Internal Medicine | | 18,400. Cutaneous abscess, unspecified | | 18,400. Other specified soft tissue disorders | | 18,400. Osteomyelitis, unspecified | | 18,400. Infection and inflammatory reaction due to other internal ort | | | | | | | |Care Team | |Provider Specialty Phone Fax Service Dates | |Unknown [facility] Facility ) [phone] Current | |RIO HUERTA MD Family Medicine [phone] Sep 11, 2018 - Current | | | |[facility] | |This patient has registered at the [facility] and [facility] Emergency Departmen t | |For more information visit: [email or web address] | |PLEASE NOTE: | | 1. Any [...] information provided. | | | |? 2020 [employer]. - [email or web address] | + + + + + + + | Performing | Address | City/State/Zipcode | Phone Number | | Organization | | | | + + + + + | [facility] | [address] | [place], [place] | [phone] | | TECHNOLOGIES | [address] | [address] | | + + + + + [...] | | | (after last modification) on Sun | | AM PDT | [...] 3 mg 3 mg, | Given | 07/30/20 | 3 mg | | | | [...] | | BEFORE MEALS, First dose on Wed | | AM PDT | [...] +---+---+ + +-------+ +--------+---+---+ | potassium chloride (SCOTTOR-CON M) | Given | 06/11/20 | 20 mEq [...]
--- OUTSIDE RECORDS SUMMARY | ~2020-08-04 | XMS | Encounter Summary ---
Demographics + + + | Address | [address] | | | [place] [address] | + + + | Home Phone [...] Author + + + | Author | [facility] | + + + | Organization | [facility] | + + + | [...] Team Providers + +------+ + | Care Anesthesiology Physician Name | Role | Phone | + [...] NOVA Lazaro | | | | | [address] | [address] | | | | | Loop Physician's | [place], [place] | | | | | Vikas, [address] [place] [address] | [address] | | | | | [place], [place] | [phone] | | | | | [address] | | | | | | [phone] | | | +--------+ + + + [...] this encounter Miscellaneous Notes Telephone Encounter - Tamera Cervantes MD - 10/11/2019 5:04 PM PSTCalled by Beth Rivas trough 10.2 last night before dose Receiving 1500 mg po IV QHS Cr 1.21 On chart review goal trough 15-20. Recs: 1. Increase to 1750 Q24. 2. Check trough before 4th dose. 3. Check creatinine tomorrow and Sunday 10/14 Will ask OPAT team to review, and advise SNF if they prefer different plan Tamera Cervantes MD documented in this e ncounter Plan of [...]
--- OUTSIDE RECORDS SUMMARY | ~2020-08-04 | XMS | Encounter Summary ---
Demographics + + + | Address | [address] | | | [place] [address] | + + + | Home Phone | | + + + | Preferred Language | Unknown | + + + | Marital Status | Single | + + + | Taoist Affiliation | Unknown | + + + | Race | White | + + + | Ethnic Group | Not or | + + + Author + + + | Author | [facility] | | | and [place] | + + + | Organization | [facility] | | | and [...] Providers + +------+ + | Care Senior Software Qa Engineer Name | Role | Phone | [...] + + | 09/01/ | Office | [facility] | Heather Thomas | Longstanding | | 2019 | Visit | CARDIOLOGY [place] | [address] | persistent atrial | | | | [address] | [place] F | fibrillation (HCC) | | | | [address] | [place] [address] | (Primary Dx); | | | | [place], [place] | [phone] | Encounter for | | | | [address] | | monitoring diuretic | | | | [phone] | | therapy; Essential | | | [...] be done at [facility] in 2 weeks I made these changes [...] hyperlipidemia, and dependent pe yaritza edema. His [id number] VASC score is 3( age, HTN, DM) giving him an annual stroke risk of 3.2% and ak s HAS BLED score is 4( HTN, [...] noted that h is previous hospitalization at [facility] was from viral gastroenteritis, cirrhosis, mi ld [...] to medications He was last hospitalized at [facility] in May 2019 for weakness and hyponatremia, a nd after that he was moved to [facility] where he has been for approximatel y 3 months for physical and occupational therapy, but reports he will be returning to his [facility] tomorrow. Notes from his hospitalization [...] deconditioned, [facility]. He was also [...] feel improved since he has been at [place], an d remains abstinent from alcohol. His [...] improved since he has been at [facility]. Denies unexplained weight loss. Appetite [...] or illicit drug use. . Lives in [facility] e 05/2019 Outpatient Medications Prior to Visit [...] reported normal ECHO Echo : 08/27/2018: [facility]: Atrial fibrillation. Technically adequate study. 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 Rate 98 bpm, QRS 80 ms, QTC 380 ms, trac ing personally reviewed by ks LABS Labs: 05/28/2019[facility]: Phosphorus 2.9. [...] eris, vital sign and medication record from [facility]. Allergies, current medications.labs Family history, past medical history, past social history, past surgical history. Problem list. YAMILA Bhagat [facility] Cardiology 09/01/2019 docum ented in this encounter [...]
--- OUTSIDE RECORDS SUMMARY | ~2020-08-04 | XMS | Encounter Summary ---
Demographics + + + | Address | [id number] | | | [place] [address] | + + + | Home Phone | | + + + | Preferred Language | Unknown | + + + | Marital Status | Single | + + + | Oriental Orthodox Affiliation | NRP | + + [...] Team Providers + +------+ + | Care Income Tax Manager Name | Role | Phone | + +------+ + | Dustin Perez MD | PCP | | + +------+ + Reason for Visit + +--------+ + | Reason | Onset | Comments | | | Date | | + +--------+ + | RN Care Management | 09/18/ | opat | | | 2018 | | + +--------+ + | Infectious disease | 09/18/ | | | | 2018 | | + +--------+ + | Transfer of Care | 09/18/ | | | | 2018 | | + +--------+ + Encounter Details +--------+ + + + + | Date | Type | Department | Care Team | Description | +--------+ + + + + | 09/18/ | Documentati | Infectious | Stuart Hale, | RN Care Management | | 2019 | on | Diseases at [facility] | RN [address] | (opat); Infectious | | | | [address] | [address] | disease; Transfer of | | | | [facility] | [place], [place] | Care | | | | [address], 3rd floor | [address] | | | | | [place], [place] | [phone] | | | | | [address] | | | | | | [phone] | | | +--------+ + + + [...] this encounter Miscellaneous Notes Telephone Encounter - Lady Solis Ma - 10/02/2019 2:11 PM PSTLajan, from [facility] called back and confirmed patient was seen on 09/29, and has f/u with them on 10/13. Elect ronically signed by Lady Solis Ma at 10/02/2019 2:11 PM PSTTelephone Encounter - Lady Emanuel - 10/02/2019 12:55 PM PSTCalled and Left Message at [facility], to confirm patient was seen on 09/29, and they have assumed care. Staff at [facility], but th ey will return call once they return. elephone Encounter - Rosa Mills MA - 10/02/2019 8:44 AM PSTCalled SNF in regards of message below. After being on hold for 8 minutes I spoke to Rahul and was told that they are in a meeting, was transferred to the care management's (Montse) voicemail to leave a message. Left a detailed voicemail to call our office at earliest convenience at [phone]. Will attempt at a later time. Rosa Mills MA elephone Encounter - Stuart Hale RN - 09/25/2019 2:15 PM PSTClarified with SNF that pt was not seen today by ID. Called [facility] back, spoke with Neelima (misheard name as enzo) and Isiah stated that pt is actually scheduled for Sunday, 09/29 at 1300. MAs - please do not remove pt yet. Please confirm SAMIRA on 09/29 in the afternoon, then can remove pt from the list. Stuart Hale RN el ephone Encounter - Stuart Hale RN - 09/25/2019 2:03 PM PSTSpoke with Enzo at [facility] in [facility]. Enzo stated that pt was seen today at 1300 and they have assume d care of IV abx course. MAs - you may remove from list per SAMIRA process. Stuart Hale RN el ephone Encounter - Stuart Hale RN - 09/23/2019 9:25 AM PSTCalled [facility], spoke with Maria R, confirmed that referral was received. They are attempting to reach facility to [facility]. We will call to check in tomorrow regarding appt details at [facility] ID. Stuart Hale RN el ephone Encounter - Chyna Aponte RN - 09/22/2019 2:32 PM PSTCalled and left a message wi th the referrals desk at [facility] and asked for them to call back to let us know that they rec eived the referral, records and if the patient has been scheduled. I asked that they call rosanna with this info. Chyna Aponte RN elephone Encounter - Lady Solis Ma - 09/19/2019 5:16 PM PSTThis OPAT patient has been entered into the [facility] OPAT system of care. Please contact [facility] at phone: [phone]; fax: [phone] with a ny questions or concerns regarding this patient's infectious disease treatment plan. elephone Encounter - Stuart Rose RN - 09/19/2019 3:40 PM PSTReferral with last ID notes faxed to [facility] - P: , f: . We will follow up on this next week. elephone Uriah margareth - Trish Baum MD - 09/19/2019 3:09 PM PSTPt will need to see ID, so please refer to [facility] for f/u since he cannot come back to [place]. Until that is arranged and p t accepted, we will follow him remotely. You can put me as provider. elephone Encounter - Stuart Hale RN - 12:41 PM PSTShould we follow patient remotely for duration of course or should we t ry to refer pt to ID in [facility]? Electronically signed by Stuart Hale RN at 9 12:43 PM PSTTelephone Encounter - Jennifer Hope - 09/19/2019 11:56 AM PSTSpoke with schedule r @ [employer] and they requested we get a referral going for [facility], as it would be much easier for pt to get to that appt rather than coming all the way to [place]. He does not torre ve any transportation at this time to take him to [place] or even [place]. 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 faecalis Antimicrobials Start Date End Date Antibiotic Dose Duration Effective Start Date Anticipated Stop Date Com ments 09/04/19 Vancomycin IV 1250mg IV q24 hours. 6 weeks 09/06/19 10/17/19 goal trough 13-17, Last debridement on 09/06, dose stable at time of dc weekly CBC with Diff, CMP and Vancomycin Trough level (CRP also ordered due to auto order set) Infusion Service Provider: [facility] ([place]) P: [phone] F: [phone] Line & Lab Provider: " [facility] ([place]) P: [phone] F: [phone] Line Type: Single-Lumen PICC (Comment: Non-tunneled;Valved Left Arm Basilic ) Line Placed (date): 09/09/19 Discharge Service: Internal Medicine Discharge Service Provider: Kory Henriquez MD Consult Service: General Surgery, Orthopedic Assistant Boys Track Coach: Esteban Mar MD, Cory Carmen MD Notes: Team B: OPAT escrow officer: [phone], Pager: [phone] Potential safe infusion settings from ID perspective no : Home infusion no : Infusion center yes : SNF yes : [facility]ACH yes : In hospital n/a : Hemodialysis Barriers to safe OPAT: Living environment: doubt patient can dress the wound or care for PI CC line unless he has penitentiary Follow Up: with next available clinic provider in 3 weeks post hospital discharge. Pt dis charged to SNF in [place] using a virtual bed. Friend providing transportation. Has orth o f/u in the [facility]. We will attempt to schedule pt for [facility] follow up. PAS- if pt un able to travel that far, let us know and we can work on either telemedicine in [place] or referral to [facility]. elephone Encounter - Stuart Hale RN - 09/18/2019 8:33 AM PSTLast ID Consult Recs: 09/08/19 Joseph De León MD A/P: Patient who presented with necrotizing fasciitis [...] while we wait for the micro data. 1. Continue vancomycin 1,000 mg IV q 12 hours (dose adjusted yesterday per pharmacy as a re sult of the high trough level) 2. Target vancomycin trough level is 13-17 3. Duration of therapy is six weeks from the last debridement (09/06/19 = day one and is tentative stop date) 4. OK to place PICC line 5. CBC with diff and vanco level once weekly while on this regimen 6. Await micro data before finalizing regimen for OPAT 7. ESR and CRP to establish baseline so progress can be monitored. documented in this en counter Plan of [...]
--- OUTSIDE RECORDS SUMMARY | ~2020-08-04 | XMS | Encounter Summary ---
Demographics + + + | Address | [address] | | | [place] [address] | + + + | Home Phone [...] Author + + + | Author | [facility] | + + + | Organization | [facility] | + + + | Address [...] Team Providers + +------+ + | Care Coding Clerks Supervisor Name | Role | Phone | [...] | | SW Tejas Maya | [address] | LEFT ANKLE | | | | [address] [facility] | Bk Maya | | | | | Hospital Admitting | [place], [place] | | | | | Desk Located on the | [phone] | | | | | 9th floor | [phone] | | | | | [place], [place] | | | | | | [address] | | | +--------+---------+ + + + [...] + + + | Blood Pressure | 130/74 | 09/04/2019 7:42 AM | | | | | PDT | | + + + + + | Pulse | 91 | 09/04/2019 7:42 AM | | | | | PDT | | + + + + + | Temperature | 36.7 C (98.1 F) | 09/04/2019 7:42 AM | | | | | PDT | | + + + + + | Respiratory Rate | 16 | 09/04/2019 7:42 AM | | | | | PDT | | + + + + + | Oxygen Saturation | 98% | 09/04/2019 7:42 AM | | | | | PDT | | + + + + + | Inhaled Oxygen | - | - | | | Concentration | | | | + + + + + | Weight | - | - | | + + + + + | Height | - | - | | + + + + + | Body Mass Index | - | - | | + [...] Hemphill MD - 09/17/2019 12:07 PM PST [facility] Discharge Summary Discharging Provider: Johnathan Hemphill MD Discharging Attending Physician: To Henriquez MD PCP: Rio Huerta MD Admission Date: 09/03/2019 Discharge Date: 09/17/2019 Hospital Stay: 14 day(s) Discharge Location: [place] [phone] [facility] FOLLOW UP NEEDS: 1) Infectious Disease, [facility], [place], ~10/08/2019 2) Orthopedi cs, [facility] in the Dr. Nella [...] hindfoot. 5. Placement of an external tissue international coordinator, area other than breast. 6. Placement of [...] vancomycin trough levels - ID F/U in [place], ~10/08 timeframe - Wound check and suture removal by 09/26/2019; OK for SNF to remove sutures - Ortho F/U ~10/21 timeframe w/ Dr. Carmen in [facility] - Activity restrictions: LLE: NWB, elevated, [...] BLED 4. Former discussion s with his college or university faculty member decided against anticoagulation; on 81 mg aspirin [...] Phone Number Fax Number Hellen Calvillo [facility] [address], [place] [address] Home Care Medical No service has been [...] re-check Contact information [address] [place] [phone] RIO HUERTA MD. Go on 09/24/2019. Specialty: Family Medicine Why: Appt: Tuesday, September 24, 2019 @ 08:40am. Address: [address] [place] [address], [address], [place], [place] Contact information [facility] [address] [place] [address] Surya Coffman MD. Go on 09/30/2019. Why: Appt: Monday, September 30, 2019 @ 09:45am Contact information [address] [place], [place] [phone] Contact information for after-discharge care Discharge Destination Hellen Calvillo . Service: Prison Contact information [address] [place] [id number] Discharge Physical Exam: Last 24 hour min/max [...] PGY - 3 | Internal Medicine | [id number] [facility] Associated attestation - To Henriquez MD - 09/18/2019 6:57 AM PST INPATIENT FACULTY PROGRESS NOTE - 3 Author; TO HENRIQUEZ MD Attending Physician: [...] Primary Surrogate Decision Maker Josué An son [phone] TO HENRIQUEZ MD [address] medical leader Division of [facility] Medicine Department of Medicine [address] [place] [phone] documented in this encounter Discharge Instructions Discharge Instr - Diet (facility) Johnathan Hemphill MD - 09/15/2019 9:38 PM PSTDiet Type: Re merissa diet Discharge Instr - Activity (facility) Johnathan [...] (per patient w ++ 1st degree FH) Plan Rep re: skin/foot care (a la DM) 10) Alcohol use disorder, mild, in sustained remission, abuse 11) Encounter for long-term (current) use of antibiotics SURROGATE DECISION MAKER Surrogate Decision Maker Primary Surrogate Decision Maker Josué An son [phone] TO HENRIQUEZ MD [address] medical leader Division of Hospital Medicine Department of Medicine [address] [place] [phone] Amber Wan MD - 1 11/16/2018 7:13 [...] care, follow up recs - follow up: [facility] ID faculty with preference [...] BLED 4. Former discussion s with his college or university faculty member decided against anticoagulation; on 81 mg aspirin daily (used to be 325 but reduced to 81 2/2 "GI problems"). - held asa in s/o surgery, has been restarted - continue digoxin - goal resting rate <110 # bilateral lower extremity swelling Unclear etiology. Was seeing college or university faculty member who is prescribing torsemide 10 mg daily [...] Dispo: patient ready to discharge tomorrow to [facility] in [place]. Code Status: Full Code Surrogate Decision Maker Primary Surrogate Decision Maker Josué An son [phone] This patient was staffed with Dr. To [...] there are not currnet signs of decompensation Plan Rep on his 'near miss' and importance of good 'liver care' in future 9) Neuropathy, hereditary sensory (per patient w ++ 1st degree FH) Not noted in 'history' but with suggestion of pes cavus, and ++ family history it does r aise the qn of Zshkbbj-Kjkvx-Wdmfa Could have been contributor to osteo Plan Rep re: skin/foot care (a la DM) 10) Alcohol use disorder, mild, in sustained remission, abuse 11) Encounter for long-term (current) use of antibiotics SURROGATE DECISION MAKER Surrogate Decision Maker Primary Surrogate Decision Maker Josué An son [phone] TO HENRIQUEZ MD [address] medical leader Division of Hospital Medicine Department of Medicine [facility] & [address] [phone] Amber Wan MD - 1 11/15/2018 6:26 [...] care, follow up recs - follow up: [facility] ID faculty with preference [...] BLED 4. Former discussion s with his college or university faculty member decided against anticoagulation; on 81 mg aspirin daily (used to be 325 but reduced to 81 2/2 "GI problems"). - held asa in s/o surgery, has been restarted - continue digoxin - goal resting rate <110 # bilateral lower extremity swelling Unclear etiology. Was seeing college or university faculty member who is prescribing torsemide 10 mg daily [...] used majority of his medicare SNF days, binder caser working to determine whethe r paying out of pocket is an option vs investigate other dispo options. Code Status: Full Code Surrogate Decision Maker Primary Surrogate Decision Maker Josué An son [phone] This patient was staffed with Dr. To [...] care, follow up recs - follow up: [facility] ID faculty with preference [...] BLED 4. Former discussion s with his college or university faculty member decided against anticoagulation; on 81 mg aspirin daily (used to be 325 but reduced to 81 2/2 "GI problems"). - held asa in s/o surgery, has been restarted - continue digoxin - goal resting rate <110 # bilateral lower extremity swelling Unclear etiology. Was seeing college or university faculty member who is prescribing torsemide 10 mg daily [...] used majority of his medicare SNF days, binder caser working to determine whethe r paying out of pocket is an option vs investigate other dispo options. Code Status: Full Code Surrogate Decision Maker Primary Surrogate Decision Maker Josué An son [phone] This patient was staffed with Dr. To [...] stenosis or insuff iciency: Aug 26, 2018[facility]) 7) Essential hypertension 8) "Cirrhosis, Laennec's" (HCC) [...] it does r aise the qn of Arntxoi-Znszf-Ohond Could have been contributor to osteo Plan Rep re: skin/foot care (a la DM) 10) Alcohol use disorder, mild, in sustained remission, abuse 11) Encounter for long-term (current) use of antibiotics SURROGATE DECISION MAKER Surrogate Decision Maker Primary Surrogate Decision Maker Josué An son [phone] TO HENRIQUEZ MD [address] medical leader Division of Hospital Medicine Department of Medicine [facility] & [address] [place] [address] To Leach MD - 09/13 12:33 PM [...] it does r aise the qn of Alyhjkw-Ihwlo-Qumct Could have been contributor to osteo Plan Rep re: skin/foot care (a la DM) 10) Alcohol use disorder, mild, in sustained remission, abuse 11) Encounter for long-term (current) use of antibiotics SURROGATE DECISION MAKER Surrogate Decision Maker Primary Surrogate Decision Maker Josué An son [phone] TO HENRIQUEZ MD [address] medical leader Division of Hospital Medicine Department of Medicine [facility] & [address] [place] [address] ateJohnathan victor MD - 12/2018 11:07 AM [...] care, follow up recs - follow up: [facility] ID faculty with preference [...] BLED 4. Former discussion s with his college or university faculty member decided against anticoagulation; on 81 mg aspirin daily (used to be 325 but reduced to 81 2/ "GI problems"). - held asa in s/o surgery, has been restarted - continue digoxin - goal resting rate <110 # bilateral lower extremity swelling Unclear etiology. Was seeing college or university faculty member who is prescribing torsemide 10 mg daily [...] used majority of his medicare SNF days, binder caser working to determine whethe r paying out of pocket is an option vs investigate other dispo options. Code Status: Full Code Surrogate Decision Maker Primary Surrogate Decision Maker Josué An son [phone] This patient was staffed with Dr. oT Henriquez, who agrees with the assessment and plan unle ss otherwise stated. Johnathan Hemphill MD PGY - 3 | Internal Medicine | [id number] [facility] To Mendez MD - 11/2018 8:01 AM [...] it does r aise the qn of Hqixpxr-Nagyf-Llzcz Could have been contributor to osteo Plan Rep re: skin/foot care (a la DM) 10) Alcohol use disorder, mild, in sustained remission, abuse 11) Encounter for long-term (current) use of antibiotics SURROGATE DECISION MAKER Surrogate Decision Maker Primary Surrogate Decision Maker Josué An son [phone] I spent ~40 minutes in the care of this patient. Greater than 50% of the time was spent co unseling and coordination of care, including visit x 3; extensive chart review (on ramos) TO HENRIQUEZ MD [address] medical leader Division of Hospital Medicine Department of Medicine [facility] & [address] [place] [phone] Gauri Walsh MD - 09/12/2019 7:07 AM [...] care, follow up recs - follow up: [facility] ID faculty with preference [...] BLED 4. Former discussion s with his college or university faculty member decided against anticoagulation; on 81 mg aspirin daily (used to be 325 but reduced to 81 2/2 "GI problems"). - held asa in s/o surgery, has been restarted - continue digoxin - goal resting rate <110 # bilateral lower extremity swelling Unclear etiology. Was seeing college or university faculty member who is prescribing torsemide 10 mg daily [...] used 90/100 of his medicare SNF days, binder caser working to determine whether paying out of pocket is an option vs investigate other dispo options. Code Status: Full Code Surrogate Decision Maker Primary Surrogate Decision Maker Josué An son [phone] This patient was staffed with Dr. To Henriquez, who agrees with the assessment and plan unle ss otherwise stated. Gauri Strickland MD Internal Medicine [id number] signed by To Henriquez MD at 09/12/2019 [...] care, follow up recs - follow up: [facility] ID faculty with preference [...] BLED 4. Former discussion s with his college or university faculty member decided against anticoagulation; on 81 mg aspirin daily (used to be 325 but reduced to 81 2/2 "GI problems"). - held asa in s/o surgery, has been restarted - continue digoxin - goal resting rate <110 # bilateral lower extremity swelling Unclear etiology. Was seeing college or university faculty member who is prescribing torsemide 10 mg daily [...] used 90/100 of his medicare SNF days, binder caser working to determine whether paying out of pocket is an option vs investigate other dispo options. Code Status: Full Code Surrogate Decision Maker Primary Surrogate Decision Maker Josué An son [phone] This patient was staffed with Dr. Huerta, who agrees with the assessment and plan unless otherwise stated. Mary Beltran MD PGY-3, Internal Medicine A M PDT Associated attestation - Tiffanie Huerat MD - 09/12/2019 10:41 AM PDT attending [...] eager to contin ue conversation with his binder caser about discharge planning. Physical Examination: Last [...] care, follow up recs - follow up: [facility] ID faculty with preference [...] BLED 4. Former discussion s with his college or university faculty member decided against anticoagulation; on 81 mg aspirin daily (used to be 325 but reduced to 81 2/2 "GI problems"). - held asa in s/o surgery, has been restarted - continue digoxin - goal resting rate <110 # bilateral lower extremity swelling Unclear etiology. Was seeing college or university faculty member who is prescribing torsemide 10 mg daily [...] used 90/100 of his medicare SNF days, binder caser working to determine whether paying out of pocket is an option vs investigate other dispo options. Code Status: Full Code Surrogate Decision Maker Primary Surrogate Decision Maker Josué An son [phone] This patient was staffed with Dr. Huerta, who agrees with the assessment and plan unless otherwise stated. Gauri Strickland MD Internal Medicine [id number] signed by Tiffanie Huerta MD at 09/10/2019 [...] 72 Hours (or 3 results): Recent Labs 09/08/192 09/10/19 0605 NA 138 141 K 3.9 [...] getting PICC line and understands need for glass wool blanket machine feeder IV antibiotics. Physical Examination: Last 24 hour [...] care, follow up recs - follow up: [facility] ID faculty with preference [...] BLED 4. Former discussion s with his college or university faculty member decided against anticoagulation; on 81 mg aspirin daily (used to be 325 but reduced to 81 2/2 "GI problems"). - held asa in s/o surgery, has been restarted - continue digoxin - goal resting rate <110 # bilateral lower extremity swelling Unclear etiology. Was seeing college or university faculty member who is prescribing torsemide 10 mg daily [...] Primary Surrogate Decision Maker Josué An son [phone] This patient was staffed with Dr. Huerta, who agrees with the assessment and plan unless otherwise stated. Gauri Strickland MD Internal Medicine [id number] signed by Tiffanie Huerta MD at 09/10/2019 [...] hindfoot. 5. Placement of an external tissue international coordinator, area other than breast. 6. Placement of [...] vancomycin, until further notice, ID consult for glass wool blanket machine feeder plan 5. Special Concerns: case managment for discharge planning, likely discharge to SNF in [place] Wound Care consulted 6. Dressings/Drains: DRESSING CARE [...] 2 seconds Aidan Antonio MD Orthopedic Surgery [id number] 11:15 AM Cory Shaikh MD - 09/09/2019 [...] the plan as listed. Cory Carmen MD [facility] [address] [place] [address] Cory Carmen Gauri Walsh MD - 09/08/2019 7:27 AM PDT General Internal Medicine 3 Progress Note 24 Hour Events: Pharmacy completed med rec via SNF MAR records per pharm: "Torsemide, potassium chloride, A SA, MVI, vitamin B12, and thiamine were added to [employer] medication list. Of note, patient has n [...] BLED 4. Former discussion s with his college or university faculty member decided against anticoagulation; on 81 mg aspirin daily (used to be 325 but reduced to 81 2 "GI problems"). - held asa in s/o surgery, has been restarted - continue digoxin - goal resting rate <110 # bilateral lower extremity swelling Unclear etiology. Was seeing college or university faculty member who is prescribing torsemide 10 mg daily [...] Maker Primary Surrogate Decision Maker Josué aviles [phone] This patient was staffed with Dr. Huerta, who agrees with the assessment and plan unless otherwise stated. Gauri Strickland MD Internal Medicine [id number] signed by Tiffanie Huerta MD at 09/08/2019 [...] present. - he has been comfortable at [facility] assisted living with aggressive PT in the past [facility] is close to [place], his home. Deepthi Collazo AGACNP - 09/08/2019 6:49 AM PDTFormatting of this note might be differe nt from the original. Orthopaedic Surgery Progress Note Date: 09/08/2019 Hospital Day: 5 Orthopaedic Attending: Cory Camren MD Diagnosis(es): 1. Infected hardware, right ankle. [...] hindfoot. 5. Placement of an external tissue international coordinator, area other than breast. 6. Placement of [...] vancomycin, until further notice, ID consult for glass wool blanket machine feeder plan 5. Special Concerns: case managment for discharge planning, likely discharge to SNF in [facility] Wound Care consulted 6. Dressings/Drains: DRESSING CARE [...] capillary refill < 2 seconds Deepthi Collazo, [facility] Orthopaedic Trauma Surgery Pager [phone] Associated attestation - Cory Carmen MD - [...] input. I will be following this patient glass wool blanket machine feeder, rather than Dr cochran or Elan. I discussed the diagnosis, imaging studies, treatment plan and prognosis with the patient and resident. I have reviewed and the above note and agree with the plan. Please do not he sitate to call me for questions. Cory Carmen MD [facility] [address] [facility] [facility] [address] [facility] [address] [place] [address] Arnold Taylor MD - 09/07/2019 6:22 PM PDTFormatting of this note might be differ ent from the original. Orthopaedic Surgery Progress Note Patient: /Age: MRN: CSN: Date: Admission Date: Hospital Day: Attending Physician: Diane ToledoNataliya 1950 69 y.o. [id number] 09/07/2019 09/03/2019 4 Garth Cochran MD Procedure(s) [...] 98%, BMI 27.94 kg/(m^2). Facility age [facility] for growth percentiles is 18 years. Exam: General: Well appearing, NAD CV/Resp: Breathing comfortably, Neurologic: Awake and alert MSK: LLE Dressings c/d/i Insensate about the lower leg/foot Wiggles toes WWP distally ARNOLD TAYLOR MD Pager: [phone] 09/07/2019 Associated attestation - Garth Cochran MD [...] appetite good, concerns are c entered around nursing home places, specifically timeline of rehab and wound healing, as well a s what recovery will look like if he were to get a BKA. Reassured that no decisions need to be made now, can involve case management Sunday to look at SNFs. He has been to [facility] in [place] previously. Physical Examination: Last 24 hour min/max [...] BLED 4. Former discussion s with his college or university faculty member decided against anticoagulation; on 81 mg aspirin daily (used to be 325 but reduced to 81 2/2 "GI problems"). - held asa in s/o surgery, restart - continue digoxin - goal resting rate <110 # bilateral lower extremity swelling Unclear etiology. Was seeing college or university faculty member who is prescribing torsemide 10 mg daily [...] Primary Surrogate Decision Maker Josué An son [phone] This patient was staffed with Dr. Huerta, who agrees with the assessment and plan. Guari Strickland MD Internal Medicine [id number] signed by Tiffanie Huerta MD at 09/07/2019 [...] in team note. - [facility] in [place] would be a reasonable SNF for him [...] seco nds Aidan Antonio MD Orthopedic Surgery [id number] 7:37 AM 09/06/2019 Gauri Walsh MD - [...] DM); HAS BLED 4. Former discussions with [facility] college or university faculty member decided against anticoagulation; on 81 mg aspirin daily (used to be 325 but r educed to 81 2/ "GI problems"). - hold asa in s/o surgery - continue digoxin - goal resting rate <110 # bilateral lower extremity swelling Unclear etiology. Was seeing college or university faculty member who is prescribing torsemide 10 mg daily [...] Primary Surrogate Decision Maker Josué An son [phone] This patient was staffed with Dr. Huerta, who agrees with the assessment and plan. Gauri Strickland MD Internal Medicine [id number] signed by Tiffanie Huerta MD at 09/06/2019 [...] Orthopaedic Attending: Diane An 1950 69 y.o. [id number] 09/05/2019 09/03/2019 2 Olivier Ansari MD Diagnosis(es): [...] to make a follow up appointment in [facility] 2 weeks with ORTHO TRAUMA & [...] es pink and warm. Noel Baptiste MD [facility] Department of Orthopaedics & Rehabilitation [address] [facility] Mail Code: OP31 [place] [address] Associated attestation - Elan, Olivier Mills MD [...] DM); HAS BLED 4. Former discussions with [facility] college or university faculty member decided against anticoagulation; on 81 mg aspirin daily (used to be 325 but r educed to 81 2/2 "GI problems"). - hold asa in s/o surgery - continue digoxin - goal resting rate <110 # bilateral lower extremity swelling Unclear etiology. Was seeing college or university faculty member who is prescribing torsemide 10 mg daily [...] Primary Surrogate Decision Maker Josué An son [phone] This patient was staffed with Dr. Huerta, who agrees with the assessment and plan. Gauri Strickland MD Internal Medicine [id number] signed by Tiffanie Huerta MD at 09/06/2019 [...] 96, Qtc 507 Echo : 08/27/2018: [facility]: Atrial fibrillation. Technically adequate study. EF 65- [...] BLED 4 . Former discussions with his college or university faculty member decided against anticoagulation; on 81 mg aspirin daily (used to be 325 but reduced to 81 2/2 "GI problems"). - hold asa in s/o surgery - continue digoxin - goal resting rate <110 # bilateral lower extremity swelling Unclear etiology. Was seeing college or university faculty member who is prescribing torsemide 10 mg daily [...] Primary Surrogate Decision Maker Josué An son [phone] This patient was staffed with Dr. Huerta, [...] care at facility where he lives in [facility], was discharged to home I called and spoke with night RN at [facility] He discharged home yesterday from facility They had noted exposed hardware last week, cultured wound which has not grown and started o n PO levofloxacin 500mg daily and augmentin on 09/02 He was seen by Dr Castellano at [facility] who requested transfer to [facility] for orthopedic eval From [...] 24 hours. Please refer to excellent internet application developer H&P for full problem based plan. ILIR SPIVEY MD Internal Medicine, PGY-3 Pager: [phone] documented in this encou nter H&P Notes [...] skin approximately 5 days ago, and his [facility] facility has been doing dressing changes at the screw site. They had cultured the wound which has not grown and started on PO levofloxacin 500mg daily and augme ntin on 09/02. He was thend discharged from the facility He was seen by Dr Castellano at [facility] who requested transfer to [facility] for orthopedic eval ED: VSS; clueless to [...] Bk Delacruz MD Internal Medicine, PGY1 P. [phone] Associated attestation - Tiffanie Huerta MD - [...] location: Unit: Room: [facility] Providers: Attending name: Attending physically present: No PICC Nurse name: Yenifer Barboza RN BSN VAT Assisted by Marty Golden RN BSN VAT Pre-Procedure Consent: written consent obtained Consent given by: Patient Patient identity confirmed per protocol: Yes Team Pause: Immediatly prior to the procedure a pause per protocol was called. A pause veri fies correct patient, procedure, equipment, director decision support and site/side marked as required. CLABSI Prevention [...] Arm area Basilic vein. Catheter lot number: [id number] with a length of 55 cm was [...] in this encounter Consult Notes Yasmeen Singh, Sathya - 09/16/2019 10:40 AM PSTFormatting of this [...] ction declines significantly Please page clinical pharmacist ([phone]) or call central inpatient pharmacy ([phone]) with qu estions. Actual body weight: Weight: [...] you for the consult, Yasmeen Singh, PharmD, [facility] Clinical Pharmacist, Transplant/Urology Pager: [phone] Deuce Kaur, PharmD - 09/12/2019 9:34 PM [...] 1 11/15 dose) Please page clinical pharmacist ([phone]) or call central inpatient pharmacy ([phone]) with qu estions. Actual body weight: Weight: [...] Thank you, Diandra Reed, PharmD Clinical Pharmacist cott Singh PharmD - 09/09/2019 1:04 PM PDTFormatting of [...] to third dose. Please page clinical pharmacist ([phone]) or call central inpatient pharmacy ([phone]) with qu estions. Actual body weight: Weight: [...] 21.6 (H) Thank you for the consult, Xin SkinnerD, [facility] Clinical Pharmacist, Transplant/Urology Pager: [phone] inod De León MD - 09/09/2019 12:02 PM PDTFormatting of this note might be different from the origi nal. [facility] Infectious Diseases OPAT Referral for Discharge Planning Team B: OPAT bsa/aml compliance officer: [phone], Pager: [phone] ID Diagnosis: Osteomyelitis of the left ankle [...] for PI CC line unless he has long-term Vascular Access: Ok to place PICC Follow Up: [facility] ID faculty with preference to schedule with next available clinic provider in 3 weeks post hospital discharge. ID: Please route your note to the "p OPAT/infectious Diseases Clinic" pool Taper/Finisher: For all patients requiring IV antibiotic therapy, please route your OPAT Carina n of Care Note (.CMOPAT) to [facility] "p OPAT/Infectious Diseases clinic" Pool at discharge. Ple ase communicate to primary team that you will be notifying Infectious Diseases of the OPAT P tawanna of Care. Joseph De León MD ID Attending ayme, Bk Morales MD - 09/09/2019 8:13 AM PDT INPATIENT INFECTIOUS DISEASE CONSULT NOTE Infectious Disease Team B Patient: Diane An Room/Bed: 44/01 Requesting Provider: Ariana Guillen MD [...] Bk Delacruz MD Internal Medicine, PGY1 P. [phone] SUBJECTIVE HPI: 69 y.o. M w/ pmg [...] skin approximately 5 days ago, and his [facility] facility has been doing dressing changes at the screw site. They had cultured the wound which has not grown and started on PO levofloxacin 500mg dailyand augm entin on 09/02. He was thend discharged from the facility He was seen by Dr Castellano at [facility] who requested transfer to [facility] for orthopedic eval. Taken by orthopedics for [...] - 09/09/2019 5:42 PM PDTID Attending Attes tatjayant Patient discussed on rounds with Dr. Bk [...] amox/clav one day prior to presentation. At [facility], antibiotics were initially held but then he [...] hind foot; placement of an external tissue international coordinator; and placement of a negative pressure wound [...] Joseph De León MD ID Attending esai, Joselito Alcantar D - 09/08/2019 1:57 PM PDT [...] sensitivities to be available tomorrow morning per [facility] Please contact Dr. De León for any questions regarding this patient on 09/08. Recommendations were communicated directly to the primary team. This patient was staffed [facility] Dr. De León, who agrees with the above assessment and plan unless otherwise documented. Thank you for the consult, we will follow along with you. Bk Delacruz MD Internal Medicine, PGY1 P. [phone] SUBJECTIVE HPI: 69 y.o. M w/ pmg [...] skin approximately 5 days ago, and his [facility] facility has been doing dressing changes at the screw site. They had cultured the wound which has not grown and started on PO levofloxacin 500mg dailyand augm entin on 09/02. He was thend discharged from the facility He was seen by Dr Castellano at [facility] who requested transfer to [facility] for orthopedic eval. Taken by orthopedics for [...] in this interval not displayed. Recent Labs 09/03/194 AST 14 ALT 12 AP 118 TBILI [...] MAR Aspirin 81mg By mouth Every morning [facility] MAR OTC/Herbal Products: Product Dose Route Frequency multivitamin 1 tablet By mouth Once daily Vitamin B12 100mg By mouth Once daily Thiamine 100mg By mouth Once daily Allergies: No Known Allergies Diane An is a 69 year old male admitted to for cellulitis and exposed hardware on left foot Pharmacy Preferences: No preferred pharmacy on file. Source of Medication Information: [facility] MAR Reliability: Moderate Insurance Status: MEDICARE - MEDICARE A & B DIANE AN 1950 Male [id number] 12/13/06 [address] [employer] MEDICARE SUPPLEMENT - MO* DIANE AN 1950 Male [id number] 11/01/15 [id number] [address] [address] Adherence: Good The above changes will be reviewed with the supervising pharmacist. The patient s prior t o admission medication list will be updated accordingly. A total of 15 minutes were spent on this activity. All questions concerning medications, in cluding OTC and herbal products, were addressed. For questions regarding this information contact Jack Alcantar Candidate Class of 2019 Pager # [phone] Associated attestation - Tammy Nguyen PharmD - [...] vitamin B12, and thiamine were added to [employer] medication list. Of note, patient h as not been taking torsemide regularly per SNF but did receive KCl supplement on 09/02 prior to admission. Loperamide was removed from home med list. For questions regarding this information please contact pharmacy, pager [phone]. Thank you, Tammy Nguyen, PharmD pg [phone], Ali, PharmD - 09/07/2019 1:58 PM PDTFormatting [...] to third dose. Please page clinical pharmacist ([phone]) or call central inpatient pharmacy ([phone]) with qu estions. Actual body weight: Weight: [...] you for the consult, Manuel Bowen Pager [phone] signed by Manuel Bowen PharmRobert at 09/07/2019 2:00 PM PDTWangLisandra PharmD - 09/04/2019 7:04 PM PDTFormatting of [...] to fourth dose. Please page clinical pharmacist ([phone]) or call central inpatient pharmacy ([phone]) with qu estions. Actual body weight: Labs: CREATININE PLASMA (LAB) (mg/dL) Date Value 09/04/2019 0.87 09/03/2019 0.92 BUN, PLASMA (LAB) (mg/dL) Date Value 09/04/2019 14 09/03/2019 15 WHITE CELL COUNT (K/cu mm) Date Value 09/04/2019 6.44 09/03/2019 8.07 Pertinent cultures/sensitivities: NGTD Thank you for the consult, Benitez Anthony PharmD Sancho Douglass M D - 09/03/2019 10:28 PM PDTAssociated Order(s): IP CONSULT TO EMERGENCY GENERAL SURGERYForma tting of this note might be different from the original. DEPARTMENT OF SURGERY Emergency General Surgery Consult Patient: Diane An ([id number]) Date: 09/03/2019 Reason for consultation: NSTI Requesting provider: MD Jase History of Present Illness: Diane An is a(n) 69 y.o. male alcoholism, cirrhosis (JUSTINO D=9, esophageal varices, ascites), HTN, atrial fibrillation, BLE neuropathy with edema and v enous stasis disease, who presented from facility to [facility] ED with LLE infection. EGS consul katlin [...] file Gets together: Not on file Attends mandaen service: Not on file Active member of [...] note might be different from the original. [facility] DEPARTMENT OF ORTHOPAEDICS & REHABILITATION HISTORY & [...] 3 years ago (Dr. Surya barron in [place]) who presents with exposed screw on dorsum [...] ates currently with a walker. Lives at detention facility in [place]. Says he broke hi s left ankle [...] & FRACTURE, The orthopaedics consult pager is [phone], please call with questions. Oc Santiago MD, MPH Orthopaedic Surgery Resident p [phone] signed by Olivier Ansari MD at 09/04/2019 4:04 PM PDT Associated attestation - Olivier Ansari MD - 09/04/2019 4:04 PM PDT Agree with note. Patient seen/examined. Briefly, Mr An is a 69yoM with Afib, cirrhosis, neuropathy, and prior trauma and ult imately a left ankle fusion by hindfoot nail 3 years ago in [place] - he presents with wor sening wound [...] SpO2 09/03/19 1821 09/03/19 1827 -- 09/03/19 1825 -- 09/03/19 1825 142/66 37.1 C 105 pulses/min 100 % [...] 0.92 0.70 - 1.30 mg/dL EGFR - UGANDAN >60 >60 mL/min EGFR NON -UGANDAN >60 >60 mL/min SODIUM, PLASMA (LAB) 137 [...] request. The patient was admitted to internal [facility] with the services following for management of [...] pin is moving Expectation of care from [facility]: ortho eval? Code Status/Polst: full Interventions performed/Meds [...] all post hospital OPAT care needs by: [facility] OPAT/Infectiou s Diseases Clinic, ; IV antibiotic orders were provided to: [facility], Phone: [phone], , Liaison has viewable access to [...] Handoff Patient Daily Goal: "Sleep tonight." (09/16/19 001) Patient Specific Preferences: Cluster care (09/04/191945) [facility] IP NURSE HANDOFF: Cespedes [...] and PT/OT to follow. Barriers to discharge: tar heel IV antibiotics, increased mobility. He would like to retur n to his previous facility for PT/recovery. Pt to be discharged back to his facility in [place] tomorrow, pt will call his ride who i s picking him up tomorrow. andoff - Katina, Indu hewitt RN - 09/16/2019 1:48 PM PSTNursing Handoff Patient Daily Goal: "Sleep tonight." (09/16/19 001) Patient Specific Preferences: Cluster care (09/04/191945) [facility] IP NURSE HANDOFF: Cespedes [...] and PT/OT to follow. Barriers to discharge: retirement IV antibiotics, increased mobility. He would like to retur n to his previous facility for PT/recovery. Pt to be discharged back to his facility in [place] tomorrow, pt will call his ride who i s picking him up tomorrow. lan of Care - Shamar Dougherty am, PT - 09/16/2019 1:14 PM PST Physical Therapy 09/16/2019 1:14 PM Hospital Day: [id number] DIANE AN Date of : 1950 Start [...] necessities in reach. RN consulted of session. 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 While he demonstrates improved strength, [...] note shall serve as the discharge summary. amryn - Kaden Hilton RN - 09/16/2019 1:19 AM PSTNursing Handoff Patient Daily Goal: "Sleep tonight." (09/16/19 0011) Patient Specific Preferences: Cluster care (09/04/19 1946) [facility] IP NURSE HANDOFF: Cespedes [...] and PT/OT to follow. Barriers to discharge: glass wool blanket machine feeder IV antibiotics, increased mobility. He would like [...] and pain. Continuing to recommend skilled nursi facility, PT to follow. Problem: PT Goals- [...] at next level of care DME Needs: chantale Galvin PT, DPT Pager [phone] Should this patient discharge from the hospital prior to the next physical therapy treatmen t, this note shall serve as the discharge summary. andoff - Maribel Alcantar RN - 09/13/2019 5:56 PM PDTNursing Handoff Patient Daily Goal: bowel care, increase activities, prevention of infection and skin break down, and promote diet (09/12/19 0800) Patient Specific Preferences: Cluster care (09/04/19 194) [facility] IP NURSE HANDOFF: Cespedes [...] and PT/OT to follow. Barriers to discharge: nursing home IV antibiotics, increased mobility. He would like to retur n to his previous facility for PT/recovery lan of Care - Katharine Maria Elenacatalino Jauregui RN - 09/13/2019 5:56 PM PDT Problem: [...] Patient Specific Preferences: Cluster care (09/04/19 1946) [facility] IP NURSE HANDOFF: Cespedes [...] and PT/OT to follow. Barriers to discharge: glass wool blanket machine feeder IV antibiotics, increased mobility. He would like [...] gait belt on,RN present in room to [facility] ist-maintained left lower extremity -non weight bearing, [...] campo within reach and RN was notified [facility] BASIC MOBILITY Difficulty turning over in [...] to do/total assistance - Total/Dependen t Assist [facility] Basic Mobility Total Score 12 Assessment: [...] activities to meet his goals. Interpretation of [facility] Short Form - Basic Mobility: CMS [...] visit: sit to stand-lumex Irina Hernández, PT #[id number] signed by Irina Hernández PT at 09/12/2019 4:12 PM PDTPlan of Care - Irina Ny, PT - 09/12/2019 3:51 PM PDT Problem: [...] order breakfast. (09/11/19 0905) Patient Specific Preferences: [facility] care (09/04/191945) [facility] IP NURSE HANDOFF: Cespedes [...] and PT/OT to follow. Barriers to discharge: nursing home IV antibiotics, increased mobility. He would like to retur n to his previous facility for PT/recovery lan of Care - Solitario Weathers, PT - 09/11/2019 4:21 PM PDTFormatting of this note might be different from the shellei davalos Physical Therapy 09/11/2019 4:21 PM Time [...] bed with left lower extremity sukhjinder dging. [facility] BASIC MOBILITY Difficulty turning over in [...] to do/total assistance - Total/Dependen t Assist [facility] Basic Mobility Total Score 11 Ended [...] summary. lan of Care - Maria Elena Alcantar, RN - 09/11/2019 2:23 PM PDT Problem: [...] need reminder to move/turns. andoff - Maribel Alcantar RN - 09/11/2019 2:22 PM PDTNursing Handoff Patient Daily Goal: order breakfast. (09/11/19 0905) Patient Specific Preferences: Cluster care (09/04/191945) [facility] IP NURSE HANDOFF: Cespedes [...] and PT/OT to follow. Barriers to discharge: nursing home IV antibiotics, increased mobility Xavier Escamilla RN - 09/11/2019 4:43 AM PDTNursing Handoff Patient Daily Goal: get a bath (09/07/19 08) Patient Specific Preferences: Cluster care (09/04/191945) [facility] IP NURSE HANDOFF: Cespedes [...] awake, monitor urinary output Barriers to discharge: glass wool blanket machine feeder IV antibiotics, increased mobility Sheeba Bernal RN - 09/11/2019 12:14 AM PDTNursing Handoff Patient Daily Goal: get a bath (10/27/19 0836) Patient Specific Preferences: Cluster care (09/04/191945) [facility] IP NURSE HANDOFF: Cespedes [...] urinary output Barriers to discharge: PICC placement, nursing home IV antibiotic use, increased mobility andoff - Lani Briggs RN - 09/10/2019 4:50 PM PDTNursing Handoff Patient Daily Goal: get a bath (09/07/19835) Patient Specific Preferences: Cluster care (09/04/191945) [facility] IP NURSE HANDOFF: Cespedes [...] urinary output Barriers to discharge: PICC placement, nursing home IV antibiotic use, increased mobility lan of [...] daily - Consider Nain's probiotic yogurt of Oswaldo - Please get a wt if possible - Bowel care prn Nutrition Dx: Increased nutrient needs 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 Following, Jane Damon MS, RD, LD Pager #[phone] Note: Admitting Dx: Diane An is a [...] hx: 81.6 kg (10/08/18) Estimated Nutrition Needs: 7562-5307 kcals (23-27 kcal/kg), 112-137 gm protein (1.2-1.5 gm/ kg) andoff - Isa Quiroga RN - 09/10/2019 1:43 AM PDTNursing Handoff Patient Daily Goal: get a bath (09/07/19 9736) Patient Specific Preferences: Cluster care (09/04/19 1946) [facility] IP NURSE HANDOFF: Cespedes [...] urinary output Barriers to discharge: PICC placement, glass wool blanket machine feeder IV antibiotic use, increased mobility andoff - Blair Brewer RN - 09/09/2019 5:46 PM PDTNursing Handoff Patient Daily Goal: get a bath (09/07/19 8484) Patient Specific Preferences: Cluster care (09/04/19 5916) [facility] IP NURSE HANDOFF: Cespedes [...] urinary output Barriers to discharge: PICC placement, nursing home IV antibiotic use, increased mobility lan of [...] lower extremity - non weight bearing, maintain firer kiln ior foot splint and leg elevated Parties present for session: Physical therapist, physical therapy internet application developer, patient, Consulted/Discussed patient's care with: AZAR Pinto [...] re quest to remain in seated position [facility] BASIC MOBILITY Difficulty turning over in [...] to do/total assistance - Total/Dependen t Assist [facility] Basic Mobility Total Score 11 *Note: activity was not directly observed and scoring is based on skills and deficits michelle lucas today 1 - Unable to do/total assistance = Total/Dependent Assist 2 - A lot = Maximum/Moderate Assistance 3 - A little = Minimal/Contact Guard Assist/Supervision 4 None = Modified independent/Independent Interpretation of [facility] Short Form - Basic Mobility: CMS [...] entire session. The student participated in the [facility] of services while I directed the service, made the skilled judgment, and was responsible for the assessment and treatment. I verify that I directed the plan of care and was immediately available for assistance as n ecessary both during the session and documentation. Manda Arroyo, PT, DPT Physical Therapist Pager #[phone] signed by Manda Arroyo PT at 09/09/2019 1:31 PM Melinda Kim RN - 09/09/2019 4:23 AM PDTNursing Handoff Patient Daily Goal: get a bath (09/07/19 6636) Patient Specific Preferences: Cluster care (09/04/19 1946) [facility] IP NURSE HANDOFF: Cespedes [...] this shift Barriers to discharge: PICC placement, nursing home IV antibiotic use, increased mobility andoff - Alvino Brewer RN - 09/08/2019 5:50 PM PDTNursing Handoff Patient Daily Goal: get a bath (09/07/19 0836) Patient Specific Preferences: Cluster care (09/04/19 1946) [facility] IP NURSE HANDOFF: Cespedes [...] IV abx plan, may need PICC placement amoff - Sada Onofre RN - 09/07/2019 5:23 PM PDTNursing Handoff Patient Daily Goal: get a bath (09/07/19 0836) Patient Specific Preferences: Cluster care (09/04/191945) [facility] IP NURSE HANDOFF: Cespedes [...] IV abx plan, may need PICC placement amryn - Gilbert Alcantar RN - 09/06/2019 6:35 PM PDTNursing Handoff Patient Daily Goal: Remain free from pain to facilitate sleep (09/04/191945) Patient Specific Preferences: Cluster care (09/04/191945) [facility] IP NURSE HANDOFF: Cespedes [...] might be different from the origin al. [facility] Department of Orthopaedics & Rehabilitation OPERATIVE NOTE Patient: /Age: MRN: CSN: Date: Admission Date: Hospital Day: Diane An 1950 69 y.o. [id number] 09/06/2019 09/03/2019 3 Attending Surgeon: Garth Cochran MD Incident Response Engineer(s): 1. Arnold Taylor MD Preoperative Diagnosis(es): 1. [...] position ed we then removed the tissue international coordinator device and the wound vac, all giselle [...] Date of procedure: 09/03/2019 - 09/06/2019 Location: [facility] Surgeon(s) and Role: * Garth Cochran MD - Primary Staff: Contracts Analyst: Naeem Lane RN Scrub: ST [facility] Scrub Relief: ST Cabrera Pre Op Dx left foot infection Post Op Dx: Same Procedure: See above Anesthesia: General Findings/Complications: None Estimated Blood Loss: 200 mL Drains: * No LDAs found * Specimens None Implants/Grafts None Procedure Description: Garth Cochran MD lan of Care - Beto roshan Irina, PT - 09/06/2019 9:24 AM PDTFormatting of this note might be different from the or iginal. Problem: PT Goals- Adult Goal: Functional Mobility Goal Description Patient will perform bed mobility independently Patient will perform supine to edge of bed independently Patient will be independent with lower extremity strength training exercises Outcome: Gradual progress toward goal Physical Therapy Evaluation [id number] [facility] Day: 3 Date of : 1950 Start of care: 09/06/2019 Attending Practitioner: Tiffanie Huerta MD Primary/Referral Diagnosis/ICD-9: T84.7XXA Infection of lower extremity associated with ney dwnakul (HCC) M79.89 Necrotizing soft tissue infection L02.91 [...] Goal: get stronger and walk better Communication/Barriers: [place]/ fatigue Pain: / left ankle pain Vital Signs: stable pre [...] rehabilitation: assessment and treatme nt (5th ed.). [place]: [employer]. p.093 Mobility & Transfers: Supine to sit: standby assist Sit to supine: not tested , left sitting edge of bed-RN present in room Sit to stand/Stand to sit: not tested, refused further functional mobility,was tired Scoot: not tested Stand pivot transfer: not tested Gait: not tested Outcome Measure: [facility] BASIC MOBILITY Difficulty turning over in [...] to do/total assistance - Total/Dependen t Assist [facility] Basic Mobility Total Score 11 Interpretation of [facility] Short Form - Basic Mobility: CMS [...] note shall serve as the discharge summary. Steve - Vinay Summers RN - 09/06/2019 3:55 AM PDTNursing Handoff Patient Daily Goal: Remain free from pain to facilitate sleep (09/04/191945) Patient Specific Preferences: Cluster care (09/04/191945) [facility] IP NURSE HANDOFF: Cespedes [...] (09/04/191945) Patient Specific Preferences: Cluster care (09/04/191945) [facility] IP NURSE HANDOFF: Cespedes [...] note might be different from the aldair reeder. Problem: Nutrition Interventions Intervention: Food and nutrient [...] Following, Jane Damon, MS, RD, LD Pager #[phone] Note: Admitting Dx: Diane An is a [...] hx: 81.6 kg (10/08/18) Estimated Nutrition Needs: 7019-7435 kcals (23-27 kcal/kg), 112-137 gm protein (1.2-1.5 gm/ kg) amryn - Vinay Summers RN - 09/05/2019 6:55 AM PDTNursing Handoff Patient Daily Goal: Remain free from pain to facilitate sleep (09/04/191945) Patient Specific Preferences: Cluster care (09/04/191945) [facility] IP NURSE HANDOFF: Cespedes [...] RN - 09/04/2019 6:02 PM PDTNursing Handoff [facility] NURSE HANDOFF: Cespedes hospital course events: 09/04 [...] the hindfoot. 5.Placement of an external tissue international coordinator, area other than breast. 6.Placement of a [...] It had migrated into the mid-foot. W e actually placed the jig of the hindfoot [...] 6 L of normal saline. It looked curve cleaner and the swelling in th e [...] loop and tied it and then zaki llmichaela stapled it in Jesus sandal fashion. Medially I was a bit more concerned about the abili ty to close this, especially if it is left open under tension for several days. I therefore elected to place a tissue international coordinator. This was the DermaClose device, regular size. [...] were correct at the end. MD ROSE Galvan/ARCHIEL /[id number] signed by Olivier Ansari MD at 09/05/2019 [...] Additional pain medication information: Functional Epidural: N/A PRODUCTION SUPPORT SPECIALIST: N/A Respiratory: RR: 17 , O2 Sat: 98 % , O2 Delivery: None (room air) Breath Sounds: WDL BEBE: LLL: RUL: RLL: MAKR No Comment: Cardiac: BP: 115/53 HR: 101 GI: Nausea/Vomiting Status: No Signs/Symptoms: Interventions: Assessment: Comments: : Last void: 1350 - episode of incontinence moving from OR table to bed. Contact Name: Josué - son Contact Number: [phone] Family contacted: Yes Comment:Off campus. Given update. Belongings:Returning to room. rief Op Note - Carmen Ansari MD - 09/04/2019 1:46 PM PDTFormatting of this note might be different from the or iginal. Date of procedure: 09/03/2019 - 09/04/2019 Times Event Time In Procedure Start Shania Sep 04, 2019 0954 Procedure Stop Shania Sep 04, 2019 1339 Location: [facility] Surgeon(s) and Role: * Olivier Ansari MD - Primary Staff: Contracts Analyst: Geneva Mills RN Scrub: Brady Anderson RN Contracts Analyst Relief: Lise Xiong RN; Sveta Graham RN Scrub Relief: ST Scott Scrub Orientee: ST Rodo Senior Web Analyst: Varun Patel, RT Additional RN: Cary Jones RN Parlor Chaperone: Noel Baptiste MD Pre Op Dx INFECTED LEFT ANKLE FUSION Cirrhosis Post Op Dx: Same Procedure: 1. Four compartment fasciotomy left leg, with incision irrigation and debridement, two-inci sions 2. Removal of hardware deep implant, with curettage of calcaneus 3. Irrigation/incision/debridement of left ankle incomplete fusion 4. Spanning ankle fusion antibiotic nail 5. Placement external tissue international coordinator, area other than breast 6. Placement non-prefabricated [...] Implant Name Type Inv. Item Serial No. Product Evangelist Lot No. LRB No. Used Action Size CEMENT BONE REFOBACIN 1X40 W/ GENTAMICIN - [id number] CEMENT BONE REFOBACIN 1X40 W/ GENTAMI MAIA JAMES [id number] Left 2 Implanted Complications: None Findings: Edema [...] likely Sunday or Sunday Olivier Ansari MD IKAED RN Student Note - Gwyn Turpin - [...] signed by Gwyn verdin 09/04/2019 2:05 AM МАРИАН RN Student Miranda - Gwyn Turpin - 09/04/2019 1:28 AM PDTCalled to give report, was informed that RN was almost available to give report, gave floor number to reach me. МАРИНА RN Student Gwyn Alfred - 09/04/2019 1:00 AM PDTAttempted to call report to 4A, but was informed that they would call back in 30 min when another nurse came to the floor to take this admit.Elect ronically signed by Gwyn Turpin at 09/04/2019 1:01 AM PDTED Teaching Notes - aMtt Guillen MD - 09/04/2019 12:49 AM Gildardo [...] by Gwyn Turpin at 9 8:04 PM PDTFormerly [facility] - Alida Johnson - 09/03/2019 5:46 [...] | + +--------+ + + + | -EILEEN OLIVERA ISTAT | Urgent | 09/03/2019 | | [...] | + + + + + | [facility] | [address] | [place] [address] | | | SERVICES, CORE | DWIGHT [...] Normocytic, hypochromic | | OF | M Nkiki mackay MD | | | anemia - Mild absolute | | PATHOLOGY | on 2018 at | | | eosinophilia - No | | | 10:40 A M | | | dysplastic changesCase | | | | | | seen by:Robert Walker MD | | | | | | - Hematopathology | | | | | | FellowAdrian Deal MD, | | | | | | PhD - | | | | | | HematopathologistPatholo | | | | | | gy, [facility] & | | | | | | [facility] | | | | | | [...] | | | | | determined by [facility] | | | | | | laboratories. [...] + + + + | [facility] | [address] | [place] [address] | | | PATHOLOGY | [address] [...] | + + + + + | [facility] | [address] | [place] [address] | | | SERVICES, CORE | DWIGHT [...] | + + + + + | [facility] | [address] | [place] [address] | | | SERVICES, FERMÍN | DWIGHT [...] | | | LABORATORY | | | UGANDAN | | | SERVICES, | | | [...] | + + + + + | [facility] | [address] | [place] [address] | | | SERVICES, CORE | PARK [...] + + | [facility] | [address] | [place] [address] | | | SERVICES, CORE | PARK [...] [facility] | [address] | [place] [address] | | | SERVICES, CORE | PARK [...] | + + + + + | [facility] | [address] | [place] [address] | | | SERVICES, CORE | DWIGHT [...] [facility] | [address] | [place] [address] | | | SERVICES, CORE | PARK [...] | + + + + + | [facility] | [address] | [place] [address] | | | SERVICES, CORE | DWIGHT [...] | | | LABORATORY | | | UGANDAN | | | SERVICES, | | | [...] MDRD equation recommended by the National | [facility] | | Kidney Disease Education Program. Estimated [...] | + + + + + | [facility] | [address] | [place] [address] | | | SERVICES, CORE | PARK [...] + | [facility] | [address] | [place] [address] | | | SERVICES, CORE | PARK [...] | | | LABORATORY | | | UGANDAN | | | SERVICES, | | | [...] MDRD equation recommended by the National | [facility] | | Kidney Disease Education Program. Estimated GFR Interpretive | LABORATORY | | Information: <60 mL/min/1.73 sq m Chronic Kidney | SERVICES, [facility] | | Disease <15 mL/min/1.73 sq m [...] | + + + + + | [facility] | [address] | [place] [address] | | | VJ, FERMÍN | [address] | | | + + + + + X-RAY PORTABLE CHEST PICC LINE CHECK (09/09/2019 7:29 PM PDT) + + | Specimen | + + | | + + + + + | Narrative | Performed At | + + + | EXAM: [place] CHEST PICC LINE CHECK HISTORY: Verify Catheter [...] Interface - 09/09/2019 8:46 PM PDT EXAM: [place] CHEST | | PICC LINE CHECK HISTORY: [...] At | + + + | EXAM: [place] CHEST 1 VIEW HISTORY: PICC placement COMPARISON: [...] Interface - 09/09/2019 4:46 PM PDT EXAM: [place] CHEST 1 | | VIEW HISTORY: PICC [...] | | Diagnosis: Cellulitis LE Procedure location: [facility]: Room: [facility] | | [...] correct patient, | | | procedure, equipment, director decision support and site/side marked as | | [...] vein. Catheter lot number: | | | [id number] with a length of 55 cm was [...] [facility] | [address] | [place] [address] | | | SERVICES, CORE | DWIGHT [...] [facility] | [address] | [place] [address] | | | SERVICES, CORE | PARK [...] | + + + + + | [facility] | [address] | [place] [address] | | | SERVICES, CORE | DWIGHT [...] [facility] | [address] | [place] [address] | | | SERVICES, CORE | DWIGHT [...] [facility] | [address] | [place] [address] | | | VJ, FERMÍN | PARK [...] | | | LABORATORY | | | UGANDAN | | | SERVICES, | | | [...] MDRD equation recommended by the National | [facility] | | Kidney Disease Education Program. Estimated [...] | + + + + + | [facility] | [address] | [place] [address] | | | SERVICES, CORE | DWIGHT [...] [facility] | [address] | [place] [address] | | | SERVICES, CORE | PARK [...] [facility] | [address] | [place], [place] | | | A[facility] | [address] | [address] | | | TESTS | | | [...] | + + + + + | [facility] | [address] | [place] [address] | | | SERVICES, CORE | DWIGHT [...] | | | LABORATORY | | | UGANDAN | | | SERVICES, | | | [...] MDRD equation recommended by the National | [facility] | | Kidney Disease [...] | + + + + + | [facility] | [address] | [place] [address] | | | SERVICES, CORE | DWIGHT [...] [facility] | [address] | [place] [address] | | | SERVICES, | [address] [...] | + + + + + | [facility] | [address] | [place] [address] | | | SERVICES, | [address] | | | | TRANSFUSION MEDICINE | | | | + + + + + VASC LAB ANKLE SHASHI MAKI W WAVEFORM BILAT (09/05/2019 1:51 PM PDT) [...] + + | Performing | Address | City/State/[facility] | Phone Number | | Organization [...] Note | + + | Service Account, Sien Res In Interface - 09/05/2019 4:56 PM [...] [facility] | [address] | [place] [address] | | | SERVICES, CORE | PARK [...] | + + + + + | [facility] | [address] | [place] [address] | | | SERVICES, CORE | DWIGHT [...] | [facility] | [address] | [place], [place] | | | CARDIOLOGY | [address] | [address] | | + + + + + [...] [facility] | [address] | [place], [place] | | | ALEX [facility] CARE | [address] | [address] | | | TESTS | | | [...] B for complete identification and susceptibilities | [place] | | Enterococcus faecalis Unable to continue [...] + | [facility] | [address] | [place] [address] | | | [place] | | | [...] No polymorphonuclear cells No organisms seen | [facility] | | | [place] | + + + + + + + + | Performing | Address | City/State/Zipcode | Phone Number | | Organization | | | | + + + + + | [facility] | [address] | [place] [address] | | | [facility] | | | | + + + [...] B for complete identification and susceptibilities | [place] | | Enterococcus faecalis Refer to culture [...] | + + + + + | [facility] - | [address] | [place] [address] | | | [place] | | | [...] squamous epithelial cells Rare polymorphonuclear cells | [facility] | | No organisms seen | [...] + | [facility] | [address] | [place] [address] | | | [place] | | | | + + + [...] + | [facility] | [address] | [place] [address] | | | [place] | | | [...] [facility] | [address] | [place] [address] | | | SERVICES, CORE | PARK [...] [facility] | [address] | [place] [address] | | | VJ, FERMÍN | [address] [...] | | | LABORATORY | | | UGANDAN | | | SERVICES, | | | [...] | + + + + + | [facility] | [address] | [place] [address] | | | SERVICES, CORE | DWIGHT [...] [facility] | [address] | [place] [address] | | | SERVICES, CORE | PARK [...] | + + + + + | [facility] | [address] | [place] [address] | | | SERVICES, CORE | DWIGHT [...] | [facility] | | considered for monitoring nursing home glycemic control in patients with: | [...] [facility] | [address] | [place] [address] | | | SERVICES, SPECIAL | PARK [...] | + + + + + | [facility] | [address] | [place] [address] | | | [facility] | | | | + + + [...] | + + + + + | [facility] | [address] | [place] [address] | | | SERVICES, CORE | DWIGHT [...] | + + + + + | [facility] | [address] | [place] [address] | | | FERMÍN ZABALA | DWIGHT [...] | + + + + + | [facility] | [address] | [place] [address] | | | FERMÍN ZABALA | [address] | | | + + + + + CULTURE, BLOOD BACTI & YEAST [facility] (09/03/2019 7:25 PM PDT) + + + [...] | + + + + + | [facility] | [address] | [place] [address] | | | SERVICES, CORE | [address] | | | + + + + + BG-LACPOC ISTAT (09/03/2019 7:25 PM PDT) + +-------+ [...] + + + + + | [facility] | [address] | [place], [place] | | | [facility] CARE | [address] | [address] | | | TESTS | | | [...] [facility] | [address] | [place] [address] | | | SERVICES, CORE | PARK [...] [facility] | [address] | [place] [address] | | | SERVICES, CORE | [address] | | | + + + + + CULTURE, BLOOD BACTI & YEAST [facility] (09/03/2019 7:24 PM PDT) + + + [...] | + + + + + | [facility] | [address] | [place] [address] | | | SERVICES, CORE | DWIGHT [...] [facility] | [address] | [place] [address] | | | SERVICES, CORE | PARK [...] | | | LABORATORY | | | UGANDAN | | | SERVICES, | | | [...] MDRD equation recommended by the National | [facility] | | Kidney Disease [...] | + + + + + | [facility] | [address] | [place] [address] | | | SERVICES, CORE | DWIGHT [...] [facility] | [address] | [place] [address] | | | SERVICES, | [address] [...] | + + + + + | [facility] | [address] | [place] [address] | | | SERVICES, CORE | PARK [...] [facility] | [address] | [place] [address] | | | SERVICES, CORE | PARK [...] [facility] | [address] | [place] [address] | | | SERVICES, CORE | DWIGHT [...] | | | | First dose on [facility] 09/04/19 at | | AM PST | [...] PDT | | | | | Starting [facility] 09/04/19 at 1845, | | | | | | | Until 09/17/19 at 1808, | | | | | | | moderate pain, unresponsive to | | | | | | | non-opioid medication | | | | | | + +-------+ +------+---+---+ +-------+ +------+---+---+ | Given | 09/06/20 | 5 mg | | | | | 11:25 | | | | | | [...] | | | | | dose on [facility] 09/04/19 at 0900, | | AM PST [...]
--- OUTSIDE RECORDS SUMMARY | ~2020-08-04 | XMS | Encounter Summary ---
Demographics + + + | Address | [address] | | | [place] [address] | + + + | Home Phone [...] Author + + + | Author | [facility] | | | and [place] | + + + | Organization | [facility] | | | [...] Team Providers + +------+ + | Care Sign Artist Name | Role | Phone | + +------+ + | Dustin Perez MD | PCP | | + +------+ + Reason for Visit +--------+ + | Reason | Comments | +--------+ + | Other | Labs from [facility] 10/06/2019 (CBC,CMP,ESR,CRP,VANCO | | | TROUGH).. | +--------+ + Encounter Details +--------+ + + + + | Date | Type | Department | Care Team | Description | +--------+ + + + + | 10/08/ | Documentati | [facility] | Savannah Patel, | Other (Labs from | | 2019 | on | INFECTIOUS DISEASE | Respiratory Care Instructor | [facility] | | | | [address] | | 10/06/2019 | | | | [place], [place] | | (CBC,CMP,ESR,CRP,VAN | | | | [address] | | [place] TROUGH)..) | | | | [phone] | | | +--------+ + + + [...] documented as of this encounter Progress Savannah Seo, Respiratory Care Instructor - 10/08/2019 3:36 PM PSTLabs from [facility] (CBC,CMP,ESR,CRP,VANCO TROUGH).. RECEIVED: 10/08/2019 Labs were abstracted into [employer] and sent to scan. Ermelinda CMAElectronclaudette signed by Savannah Patel, Respiratory Care Instructor at 10/08/2019 3:51 PM PS Tdocumented in [...] + + + | REFERENCE LAB | [facility] | [place] | [phone] | | [facility] | | [address] | | + + + + + [...] + + | REFERENCE LAB | [address] | [place] | [phone] | | [facility] | | [address] | | + + + + + [...] + + | REFERENCE LAB | [address] | [place] | [phone] | | [facility] | | [address] | | + + + + + [...] + + | REFERENCE LAB | [address] | [place] | [phone] | | [facility] | | [address] | | + + + + + [...] + + + | REFERENCE LAB | [address] | [place] | [phone] | | [facility] [place] | | [address] | | + + + + + documented in this encounter Visit Diagnoses Not on filedocumented in this encounter"
--- OUTSIDE RECORDS SUMMARY | ~2020-08-04 | XMS | Encounter Summary ---
Demographics + + + | Address | [address] | | | [place] [address] | + + + | Home Phone [...] Team Providers + +------+ + | Care Manufacturing Baker Name | Role | Phone | + [...] [address] | | | | | | [place], [place] | | | | | | [address] | | | +--------+ + + + [...] | | | | | | of [id number] | | | | | | days. He was found to | | | | | | have markedly elevated | | | | | | myoglobin and CPK(3571) | | | | | | levels. [...] [facility] | | | | | | [facility],[place], | | | | | | Zavala, delivered via | | | | | | preforms laminator on moist gauze | | | | [...] Diagnostician: | | | | | | SEfrem Martinez | | | | | | M.D.PathologistElectroni | | | | | | devante Signed 09/07/2010 | | | | + + + + + + + + | Specimen | + + | | + + + + + + + | Performing | Address | City/State/Zipcode | Phone Number | | Organization | | | | + + + + + | [facility] | [address] | [place] [address] | | | PATHOLOGY | [address] | | | + + + + + documented in this encounter Visit Diagnoses Not on filedocumented in this encounter
--- OUTSIDE RECORDS SUMMARY | ~2020-08-04 | XMS | Encounter Summary ---
Demographics + + + | Address | [address] | | | [place] [address] | + + + | Home Phone [...] Team Providers + +------+ + | Care Lining Brusher Name | Role | Phone | + +------+ + | Dustin Perez MD | PCP | | + +------+ + Encounter Details +--------+ + + + + | Date | Type | Department | Care Team | Description | +--------+ + + + + | 06/21/ | Patient | [facility] | Ld Rodriguez RN | | | 2020 | Outreach | Therapy Services at | [address] | | | | | [facility] | Zulma Mcfadden Goldsmith | | | | | [address] | [place] [address] | | | | | [facility] | [phone] | | | | | and Healing, | | | | | | [facility] 1, | | | | | | Floor [place], [place] | | | | | | [address] | | | | | | [phone] | | | +--------+ + + + [...] Telephone Encounter - Ld Rodriguez RN - 06/21/2020 8:51 AM PDTUpdate [facility]. They are familiar with him from 2 previous SNF days . Plan is to discharge in 2-3 more weeks is projected date and transition to 07/05. Seen by PT, OT, DIRECTOR SALES AND TRADE MARKETING. Pain is very well controlled. Nursing states dressing is intact. Will be NWB on R foot for another 2-3 weeks, recent ortho note is NWB until 07/01. Bed mobility wi linus clarkyer still. Poor balance. Indep otherwise with ADL's. Plan is 2-3 weeks until ortho lift s WB status. Will continue to follow for remainder of 90 day period. End of 90 days is 09/09/20. Ld Rodriguez BSc, BSN, MANDO [facility] CJR/WALT Pot Puller C: [phone] Pager: [phone] [email or web address] Mail Code: [facility] 8L documented in [...]
--- OUTSIDE RECORDS SUMMARY | ~2020-08-04 | XMS | Encounter Summary ---
Demographics + + + | Address | [address] | | | [place] [address] | + + + | Home Phone | | + + + | Preferred Language | Unknown | + + + | Marital Status | Single | + + + | Anabaptism Affiliation | Unknown | + + + | Race | White | + + + | Ethnic Group | Not or | + + + Author + + + | Author | [facility] | | | and [place] | + + + | Organization | [facility] | | | [...] Providers + +------+ + | Care Senior Hris Analyst Name | Role | Phone | [...] + + | 10/13/ | Documentati | [facility] | Scotty Donovan DO | Results | | 2019 | on | INFECTIOUS DISEASE | [address] | ([facility], | | | | [address] | [place] [address] | Vacno, CRP, CBC, ESR | | | | [place], [place] | [phone] | ) | | | | [address] | | | | | | [phone] | | | +--------+ + + + [...] + + + | REFERENCE LAB | [address] | [place] | [phone] | | [facility] | | [address] | | + + + + + [...] + + + | REFERENCE LAB | [facility] | [place] | [phone] | | [facility] | | [address] | | + + + + + [...] [address] | [place] | [phone] | | [facility] | | [address] | | + + + + + [...] + | REFERENCE LAB | [address] | [place] | [phone] | | [facility] | | [address] | | + + + + + [...] [address] | [place] | [phone] | | [facility] | | [address] | | + + + + + documented in this encounter Visit Diagnoses Not on filedocumented in this encounter"
--- OUTSIDE RECORDS SUMMARY | ~2020-08-04 | XMS | Clinical Summary ---
Demographics + + + | Address | [address] | | | [place] [address] | + + + | Home Phone [...] Author + + + | Author | [facility] | | | and [place] | + + + | Organization | [facility] | | [...] Team Providers + +------+ + | Care Ripsaw Operator Name | Role | Phone | [...] 1 tablet by | | 0 | 01/0 | | Activ | | Vitamins-Minerals | [...] mg by mouth | | 0 | 12/0 | | Activ | | [...] | + + + + + | Med Mgmt: Mg | | | | | | 0 | | | + + + + + | Medication | | | | | Management | 0 | | | + + [...] | + + + + + | Med Mgmt: ECG | | 06/30/20 | | | | 0 | 19, | | | | | 11/20/19 | | | | | 18 | | + + + + + [...] | + + + + + | Med Mgmt: Ca | | 10/23/20 | | | | 0 | 19, | | | | | 10/20/20 | | | | | 19, | | | | | 10/13/20 | | | | | 19, | | | | | Addition | | | | | al | | | | | history | | | | | exists | | + + + + + | Med Mgmt: Cr | | 10/23/20 | | | | 0 | 19, | | | | | 10/20/20 | | | | | 19, | | | | | 10/13/20 | | | | | 19, | | | | | Addition | | | | | al | | | | | history | | | | | exists | | + + + + + | Med Mgmt: K | | 10/23/20 | | | | 0 | 19, | | | | | 10/20/20 | | | | | 19, | | | | | 10/13/20 | | | | | 19, | | | | | Addition | | | | | al | | | | | history | | | | | exists | | + + + + + | Med Mgmt: Na | | 10/23/20 | | | | 0 | 19, | | | | | 10/20/20 | | | | | 19, | | | | | 10/13/20 | | | | | 19, | | | | | Addition | | | | | al | | | | | history | | | | | exists | | + + + + + | Med Mgmt: eGFR | | 10/23/20 | | | | 0 | 19, | | | | | 10/20/20 | | | | | 19, | | | | | 10/13/20 | | | | | 19, | | | | | Addition | [...] + +--------+ | MEDICARE | MEDICA | [id number] | 12/13/19 | [phone] | | Medica | | | RE | | 07-Pre | 5 | | re | | | PART A | | sent | | | | | | AND B | | | | | | + +--------+ +--------+ + +--------+ | MODA | MODA | [id number] | 11/12/19 | [phone] | [address] | Indemn | | | HEALTH | | 19-Pre | 9 | [address] | ity | | | MDCR | | sent | | [place], | | | | [place] | | | | [place] [address] | | + +--------+ +--------+ + +--------+ [...] | | al/Fam | | 1950 | [phone] | [address] [place], | | | ursula | | | [address] (Home) | [place] [address] | | | | | | [phone] | | | | | | | 2 (Work) | | + +--------+ +--------+ + + Advance Directives + + + + + | Type | Date Recorded | Patient | Explanation | | | | Hand Profiler | | + + + + + | Power of | | | | | Bag Bundler | | | | + + + + + | Advance | | | | | Directive | | | | + + + + +"
--- OUTSIDE RECORDS SUMMARY | ~2020-08-04 | XMS | Encounter Summary ---
Demographics + + + | Address | [address] | | | [place] [address] | + + + | Home Phone [...] Author + + + | Author | [facility] | | | and [place] | + + + | Organization | [facility] | | | and [...] Team Providers + +------+ + | Care Center Consultant Name | Role | Phone | [...] + + | 06/30/ | Office | [facility] | Heather Thomas | Persistent atrial | | 2019 | Visit | CARDIOLOGY [place] | [address] | fibrillation (HCC) | | | | [address] | ASHLYN MENDEZ F | (Primary Dx); | | | | [address] | [place] [address] | Essential | | | | [place], [place] | [phone] | hypertension; | | | | [address] | | Hypotensive episode; | | | | [phone] | | Pedal edema; | | | [...] midodrine, hyperlipidemia, and dependent pedal edema. His [id number] VASC score is 3( age, HTN, DM) giving him an annual stroke risk of 3.2% and [facility] HAS BLED score is 4( HTN, [...] noted that h is previous hospitalization at [facility] was from viral gastroenteritis, cirrhosis, mi ld [...] the emergency room and then hospitalized at [facility] in May for weakness and hyponatremia, and after that he was moved to [facility] where he has been for the past [...] much improved since he has been at [facility], does r favioin abstinent from alcohol. His [...] have improved since he has been at [facility]. Denies unexplained weight loss. Appetite [...] or illicit drug use. . Lives in [facility] e 05/2019 Outpatient Medications Prior to [...] reported normal ECHO Echo : 08/27/2018: [facility]: Atrial fibrillation. Technically adequate study. 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 Rate 98 bpm, QRS 80 ms, QTC 380 ms, trac ing personally reviewed by me LABS Labs: 05/28/2019:[facility]: Phosphorus 2.9. [...] & PLAN: He was here today with director of career services from [facility] as overdue for 6-month follow-up. He has problems as detailed below. Overall he seems quite stable, with previous problems with hypotension and A. fib with RVR resolved on current medications. He reports he has improved greatly since he has been at [facility] for the last 4-5 weeks, and [...] eris, vital sign and medication record from [facility]. Allergies, current medications.labs Family history, past medical history, past social history, past surgical history. Problem list. YAMILA Bhagat [facility] 07/01/2019 docume nted in this encounter [...] | | | | | by [facility] [place] Read Only, | | | | | | [facility] [place] ([id number]), | | | | | | movie editor Moses Webster | | | | | | ([id number]) on 06/30/2019 | | | | | [...]
--- OUTSIDE RECORDS SUMMARY | ~2020-08-04 | XMS | Encounter Summary ---
Demographics + + + | Address | [address] | | | [place] [address] | + + + | Home Phone | | + + + | Preferred Language | Unknown | + + + | Marital Status | Single | + + + | Worship Affiliation | NRP | + + + [...] Team Providers + +------+ + | Care Client Strategist Name | Role | Phone | + [...] | | | | [facility] | [place], [place] | | | | | [address]as, 3rd floor | [address] | | | | | [place], [place] | [phone] | | | | | [address] | | | | | | [phone] | | | +--------+ + + + [...] documented as of this encounter Miscellaneous Notes Addendum Note - Rosanne Steve PharmD - 09/25/2019 3:26 PM PST Addended by: ROSANNE BUENROSTRO on: 09/25/2019 03:26 PM Modules accepted: Orders elephone Encou nter - Rosanne Steve PharmD - 09/25/2019 3:12 PM PSTReviewed labs drawn 09/23 (available in Media Tab). Vancomycin trough subtherapeutic at 9.2 mcg/mL. SCr stable at 1.17 mg/dL. Co nfirmed with AZAR Willard at [facility] that this is a true trough, as vancomycin dose is being administered at 2000 daily. Plan to increase vancomycin from 1250 mg to 1500 mg IV Q24H. Plan communicated to AZAR Willard at [facility] via fax and phone. ALTAGRACIA Kay PharmD 3 :26 PM PSTdocumented in this encounter Plan of Treatment [...]
--- OUTSIDE RECORDS SUMMARY | ~2020-08-04 | XMS | Encounter Summary ---
Demographics + + + | Address | [address] | | | [place] [address] | + + + | Home Phone | | + + + | Preferred Language | Unknown | + + + | Marital Status | Single | + + + | Mandaeism Affiliation | NRP | + + + [...] Team Providers + +------+ + | Care Upholstery Covers Inspector Name | Role | Phone | + +------+ + | Dustin Perez MD | PCP | | + +------+ + Reason for Visit + +--------+ + | Reason | Onset | Comments | | | Date | | + +--------+ + | Transitional Care | 09/19/ | OPAT | | Management | 2018 | | + +--------+ + | Infectious disease | 09/19/ | | | | 2019 | | [...] | | | | [facility] | [place], [place] | | | | | Vikas, [facility] floor | [address] | | | | | [place], [place] | [phone] | | | | | [address] | | | | | | [phone] | | | +--------+ + + + [...] this encounter Miscellaneous Notes Telephone Encounter - Chyna Aponte RN - 09/19/2019 9:06 AM [facility] check in - Transitional Care Management Note ASSESSMENT Spoke with nurse Campo at [facility] at [phone]. Verified fax number: [phone] She stated that infusions of Vancomycin 1250mg IV have b een administered as scheduled at 2029. Denies any s/s of complication of infection, PICC pro blems or medication adverse reactions. PICC dressing change and labs Tuesdays. No ID follow up has been scheduled yet. Phone call routed to ID PAS for scheduling. Sera alston patient's OPAT medications are accurately listed in current medication list. I spent 7 minutes in transitional care communication with or on behalf of this patient. I have no concerns at this time. PLAN Continue daily IV vanc. Continue weekly lab and line care. Encouraged SNF to call with any questions or concerns re: IV antibiotics or PICC line. Clin ic number given. NURSING OUTCOME EVALUATION Previous nursing concern(s): no previous concern(s). The primary barriers to care identified are: None I believe this patient's NURSING STABILITY is Moderately Stable. During this encounter, patient/caregiver verbalizes or demonstrates understanding of educat ion provided and verbalizes agreement with the plan. Notified PAS via routed encounter PERCENT OF NURSE'S TIME DEDICATED TO PATIENT CARE I spent 50% of time on symptom management And 50% of time on medication management RESULTS OF NURSING INTERVENTIONS Interventions during this encounter resulted in call completed without provider involvement Chyna Aponte RN [facility] INFECTIOUS DISEASE [facility] INFECTIOUS DISEASES AT [facility] [address]RD FLOOR [address] [phone] Gyntqxifozphda signed by Chyna Aponte RN at 09/19/2019 9:20 AM PSTdocumente d in this encounter Plan of Treatment Not [...]
--- OUTSIDE RECORDS SUMMARY | 2020-08-04 11:34 | XMS ---
PreManage Notification: DIANE BOTELLO Security Jumpbasting Lining Baster Events No recent Security Events currently on file CRITERIA MET - PDMP CARE PROVIDERS Name Unknown [facility] Facility Current PHONE: [phone] DEANNA [facility] 09/11/2018-Current PHONE: [phone] Alcira has no Care Guidelines for this patient. EKerrie VISIT COUNT (12 MO.) 2 [facility] Carmen Patel TOTAL 6 NOTE: Visits indicate total known visits. ED/UCC VISIT TRACKING (12 MO.) 08/04/2020 11:[address] [facility] TYPE: Emergency COMPLAINT: - BLOOD PRESSURE PROBLEM, POSSIBLE INFECTION R LEG 06/01/2020 22:14 [facility] TYPE: Emergency DIAGNOSES: 82482. Righrt ankle fracture and dislocation 30584. Essential (primary) hypertension 61300. Other hereditary and idiopathic neuropathies 77328. Unspecified atrial fibrillation 62438. Alcoholic cirrhosis of liver without ascites 65110. Displaced trimalleolar fracture of right lower leg, initial e 06/01/2020 11:09 [facility] [place] TYPE: Emergency COMPLAINT: - LEG PAIN/ NON INJURY DIAGNOSES: - Other fracture of right lower leg, subsequent encounter for c - extermination supervisor (current) use of aspirin - Other specified soft tissue disorders - Other group home (current) drug therapy - Type 2 diabetes mellitus with diabetic neuropathy, unspecifie - Essential (primary) hypertension - Unspecified atrial fibrillation 05/24/2020 12:32 [facility] [place] TYPE: Emergency COMPLAINT: - LEG PAIN DIAGNOSES: - Localized edema - Heart failure, unspecified - Type 2 diabetes mellitus with diabetic polyneuropathy - Pain in right lower leg - Hypertensive heart disease with heart failure - retirement (current) use of aspirin - Other intermodal truck driver (current) drug therapy - Unspecified atrial fibrillation 09/03/2019 18:13 [facility] TYPE: Emergency DIAGNOSES: 31788. cellulitis large ulcer, left lower extremity 45355. Other specified soft tissue disorders 75136. Infection and inflammatory reaction due to other internal ort 90290. Cutaneous abscess, unspecified 09/03/2019 11:[address] 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 Alcoholic cirrhosis of liver without ascites 33806. Essential (primary) hypertension 36025. Displaced trimalleolar fracture of right lower leg, initial e 51133. Unspecified atrial fibrillation 48659. Other hereditary and idiopathic neuropathies 09/03/2019 18:13 [facility] TYPE: Internal Medicine DIAGNOSES: 80400. Cutaneous abscess, unspecified 40863. Other specified soft tissue disorders 99064. Osteomyelitis, unspecified 71262. Infection and inflammatory reaction due to other internal ort [email or web address]
[2020-08-04] MEDS ORDERED: VITAMIN B-122000 MC1 PO (12:46)
[2020-08-04] MEDS ORDERED: FLOMAX0.4 MG PO ×2 (12:47→12:48)
[2020-08-04] MEDS ORDERED: LEVOFLOXACIN750 MG PO (12:50)
[2020-08-04] MEDS ORDERED: MELATONIN5 M2 PO (12:51)
[2020-08-04] MEDS ORDERED: ELIQUIS5 MG PO (12:54)
[2020-08-04] MEDS ORDERED: SENNOSIDES-DOC1 EACH PO (12:54)
[2020-08-04] MEDS ORDERED: OMEPRAZOLE20 MG PO (12:55)
== END 2020-08-04 14:00 | disposition home or self-care (01) ==
LOC: ED 11:31
DX: L98.499 Non-pressure chronic ulcer of skin of other sites with unspecified severity (principal); I10 Essential (primary) hypertension; I48.91 Unspecified atrial fibrillation; E11.40 Type 2 diabetes mellitus with diabetic neuropathy, unspecified; Z79.899 Other long term (current) drug therapy
CPT/HCPCS: 73610; 80048; 83605; 85025; 85651; 86140; 99283-25

== ENCOUNTER 2021-07-16 11:07 | Inpatient (IN) | payer MEDICARE, OTHER ==
[~2021-07-16] VITALS: Ht 180.3 cm; Wt 95.1 kg
[~2021-07-16 11:07] MED LIST changes: +ELIQUIS5 MG PO; +FLOMAX0.4 MG PO; +LEVOFLOXACIN750 MG PO; +MELATONIN5 M2 PO; +OMEPRAZOLE20 MG PO; +SENNOSIDES-DOC1 EACH PO; +VITAMIN B-122000 MC1 PO
--- NOTE | 2021-07-16 18:40 | NUR ---
71 YEAR OLD MALE PATIENT ADMITTED TO CCU FROM ED VIA STRETCHER UNDER DR. LOAIZA WITH DX OF LOWER EXTREMITIE CELLULITIS./SEPSIS. UPON ADMIT TO CCU PATIENT IS ALERT, ORIENTED. DENIES PAIN. IVF OF LR HUNG AT 75 ML/HR. INC OF STOOL AND URIEN ON ADMIT. ADMISSION PROCESS STARTED.
--- NOTE | 2021-07-16 19:04 | EKG ---
[facility] [address] [place] [address] Signed Atrial flutter with variable AV block Left axis deviation ST depression, consider subendocardial injury Nonspecific T wave abnormality Abnormal ECG When compared with ECG of 24-MAY-2020 14:37, Significant changes have occurred Confirmed by LINCOLN LOAIZA MD ([id number]) on 07/16/2021 7:03:56 PM Electronically Signed By: LINCOLN LOAIZA MD 07/16/21 1904 PATIENT NAME: DIANE BOTELLON Electrocardiogram DATE OF : 50 PHYSICIAN: LINCOLN LOAIZA MD REPORT #: [id number] REPORT IS CONFIDENTIAL AND NOT TO BE RELEASED WITHOUT AUTHORIZATION
--- NOTE | 2021-07-16 19:11 | NUR ---
TOOK FEW BITES OF ICE CREAM, REPORT TO NEXT SHIFT.
--- NOTE | 2021-07-16 19:39 | NUR ---
report recieved, care of patient assumed at this time.
--- NOTE | 2021-07-16 19:59 | NUR ---
PT ASSESSMENT COMPLETED. PT ALERT AND ORIENTED, ANSWERING ALL QUESTIONS APPROPRIATELY.PT DENIES PAIN AT THIS TIME. LUNGS ARE CLEAR. LOWER EXTREMITIES GERRY, RED, AND WARM TO TOUCH. OPEN AREAS ON BOTH LEGS NOTED. PHOTOS IN PT PAPER CHART. DISCUSSED PLAN OF CARE FOR EVENING. PT VERBALIZED UNDERSTANDING. CALL LIGHT WITHIN REACH. DENIES FURTHER NEEDS AT THIS TIME.
--- NOTE | 2021-07-16 21:14 | NUR ---
IN ROOM FOR MEDICATION ADMINISTRATION. PM CARES PERFROMED. PT DENIES ANY PAIN OR DISCOMFORT AT THIS TIME. CALL LIGHT WITHIN REACH. WILL CONTINUE TO MONITOR.
--- NOTE | 2021-07-16 23:42 | NUR ---
assessment completed. pt incontinent of urine. pericare provided. Allevyn dressing placed on pt's coccyx and barrier cream applied. pt tilted onto left side. IV fluids infusing. Call light within reach. denies further needs at this time.
--- NOTE | 2021-07-17 02:43 | NUR ---
Vancomycin infusing. assisted pt with using the urinal and repositioning in bed. call light within reach. denies needs at this time.
--- NOTE | 2021-07-17 04:00 | NUR ---
vancomycin finished infusing. PT repostioned. denies pain or discomfort. Assessment completed. Call light within reach. will continue to monitor.
--- NOTE | 2021-07-17 05:30 | NUR ---
Lab in room to draw blood at this time.
--- NOTE | 2021-07-17 07:48 | NUR ---
REPORT RECEIVED FROM NIGHTSHIFT RN, WILL CONTINUE PLAN OF CARE.
--- NOTE | 2021-07-17 09:00 | NUR ---
THIS RN IN TO ASSESS PT AND ADMINISTER SCHEDULED MEDICATIONS. PT LAYING IN BED ALERT AND ORIENTED. PT IV'S ASSESSED AT THIS TIME, IV IN LEFT ARM WAS NO LONGER PATENT AND PAINFUL WHEN FLUSHED, IV DC'D. IV CATHETER INTACT AND PT TOLERATED REMOVAL WELL. NEW BAG OF IVF STARTED ORDERED. VITALS TAKEN AND SCHEDULED MEDICATIONS ADMINISTERED ORDERED. PT NOW HAS IV ABX INFUSING. PT ASSESSED AT THIS TIME, LEFT ARM EDEMATOUS AND ELEVATED WITH A WARM BLANKET, HOT PACK PLACED OVER ARM. LEGS EDEMATOUS AND REDDENED, SCABS PRESENT AROUND LEGS, OPEN WOUNDS NOTED ON HEELS, PT HAS NO COMPLAINTS OF PAIN WHEN ASKED. PT REPORTS NO FURTHER NEEDS AT THIS TIME, BREAKFAST ORDERED FOR PT, WILL CONTINUE PLAN OF CARE. CALL LIGHT IN REACH, BED IN LOWEST POSITION, IV ABX INFUSING ORDERED.
[2021-07-17] MEDS ORDERED: FUROSEMIDE20 MG PO (09:22)
[2021-07-17] MEDS ORDERED: FINASTERIDE5 MG PO (09:22)
[2021-07-17] MEDS ORDERED: POTASSIUM CHLO10 ME1 PO (09:22)
--- NOTE | 2021-07-17 10:58 | NUR ---
THIS RN IN TO ADMINISTER SCHEDULED MEDICATION. PT LAYING IN BED AWAKE AND ALERT AT THIS TIME. PO AND IV MEDICATION ADMINISTERED ORDERED (SEE MAR). PT REPOSITIONED ON THE BED AT THIS TIME, PILLOW PLACED UNDER RIGHT HIP. PT REPORTS NO FURTHER NEED WHEN ASKED AND IS RESTING IN BED. CALL LIGHT IN REACH, BED IN LOWEST POSITION, IV MEDICATION INFUSING.
--- NOTE | 2021-07-17 11:00 | NUR ---
THIS RN IN TO ADMINISTER SCHEDULED MEDICATIONS. PT LAYING IN BED RESTING AWAKE AND ALERT. IV MEDICATION ADMINISTERED ALONG WITH SCHEDULED PO MEDICATION (SEE MAR). PT THEN ASSISTED IN REPOSITIONING, PILLOW PLACED UNDER RIGHT HIP AT THIS TIME. PT ASKED IF HE NEEDED TO VOID, PT STATES NO AT THIS TIME. PT HEAD OF BED LAID BACK DOWN PER HIS REQUEST. PT REPRTS NO FURTHER NEEDS AT THIS TIME WHEN ASKED, CALL LIGHT IN REACH, BED IN LOWEST POSITION, IV MEDICATION INFUSING, WILL CONTINUE PLAN OF CARE.
[2021-07-17] MEDS ORDERED: ACETAMINOPHEN325 M1 PO (12:16)
--- NOTE | 2021-07-17 12:53 | NUR ---
THIS RN IN TO ASSESS PT AND TAKE VITALS. PT LAYIN IN BED ALERT AND ORIENTED AND STATES HE IS FINISHED WITH HIS LUNCH. PT VITALS TAKEN AT THIS TIME. PT THEN ASKED IF HE NEEDED TO VOID. PT ABLE TO VOID INTO URINAL WITH ASSISTANCE. PT THEN ASSISTED IN REPOSITIONING IN BED. PT REPORTS NO FURTHER NEEDS AT THIS TIME, IVF INFUSING ORDERED. CALL LIGHT IN REACH, BED IN LOWEST POSITION, WILL CONTINUE PLAN OF CARE.
--- NOTE | 2021-07-17 15:07 | NUR ---
THIS RN IN TO ASSESS PT AND ADMINISTER SCHEDULED MEDICATION. PT LAYING IN BED AWAKE AND ALERT, IVF INFUSING AT ORDERED RATE. PT STATED HE NEEDED TO VOID AT THIS TIME. PT ASSISTED WITH URINAL AT THIS TIME. IV ABX THEN STARTED ORDERED. PT ASSISTED IN REPOSITIONING AT THIS TIME WELL, PILLOW PLACED UNDER LEFT SIDE. PT REPORTS NO FURTHER NEEDS AT THIS TIME WHEN ASKED, WATER PROVIDED TO PT. CALL LIGHT IN REACH, BED IN LOWEST POSITION, WILL CONTINUE PLAN OF CARE.
--- NOTE | 2021-07-17 15:48 | NUR ---
THIS RN IN TO CLEAN PT'S LEGS. PT LAYING IN BED AT THIS TIME ALERT AND ORIENTED, IV ABX INFUSING ORDERED. WOUND CLEANSER USED ON PTS LEGS, GAUZE USED TO PAT OFF DRY SKIN. ONCE DRIED MOISTURIZER WAS APPLIED TO THE LEGS WITH THE EXCEPTION OF THE OPEN WOUNDS. NONADHERENT DRESSINGS THEN PLACED ON OPEN WOUNDS, GAUZE WRAPPED AROUND LEGS TO HOLD DRESSINGS IN PLACE. PT TOLERATED THE CLEANING WELL AND REPORTED NO PAIN. PT NOW RESTING IN BED, NEW PAD IN PLACE UNDER LEGS. DINNER ORDERED FOR PT AT THIS TIME AND PT REPORTS NO FURTHER NEEDS. CALL LIGHT IN REACH, BED IN LOWEST POSITION, IV ABX INFUSING. WILL CONTINUE PLAN OF CARE.
--- NOTE | 2021-07-17 15:50 | NUR ---
REPORT GIVEN TO STANISLAV DAS AT THIS, WILL CONTINUE PLAN OF CARE AND TRANSFER PT TO ROOM 122 ON THE MEDICAL SURGICAL FLOOR.
--- NOTE | 2021-07-17 16:00 | NUR ---
REPORT RECIEVED FROM AZAR MEJIA. PT AWAKE AND WATCHING BASEBALL ON TV. DENIES CONCERNS. CALL LIGHT IN REACH.
--- NOTE | 2021-07-17 16:20 | NUR ---
THIS RN IN TO TRANSFER PT TO THE MEDICAL SURGICAL UNIT. PT LAYING IN BED ALERT AND ORIENTED, IV ABX INFUSING ORDERED. PT BELONGINGS GATHERED AT THIS TIME. PT TRANSFERRED TO MS 122 VIA BED WITH BELONGINGS AND IV ABX. PT NOW RESTING IN ROOM 122, AZAR DAS TO RESUME PLAN OF CARE.
--- NOTE | 2021-07-17 17:31 | NUR ---
SITTING UP IN BED EATING DINNER. ABLE TO FEED HIMSELF. WATCHING BASEBALL. DENIES NEEDS ATT.
--- NOTE | 2021-07-17 19:40 | NUR ---
SHIFT REPORT RECEIVED FROM DAYSORFT AZAR DAS AT BEDSIDE. pt AWAKE AND RESTING IN BED ON BACK. BLE ELEVATED. NO NEEDS AT THSI TIME, CALL LIGHT IN REACH.
--- NOTE | 2021-07-17 21:43 | NUR ---
ASSESSMENT COMPLETE, SCHEDULED MEDS GIVEN (SEE EMAR). pt REPORTS GENERALIZED DISCOMFORT, RESOLVED AFTER POSITION CHANGE. NO NEED FOR PAIN MEDICATION AT THIS TIME, WILL MONITOR. ALLEAlisonYN TO COCCYX, UNABLE TO ASSESS D/T DRESSING. pt BOOSTED IN BED AND NOW LAYING ON HER RIGHT SIDE, PILLOW UNDER LEFT HIP. PEDAL PULSES OBTAINED VIA DOPPLER, DRY DRESSING TO BLE INTACT. BLE AND BUE ELEVATED WITH PILLOWS. pt RESTING IN BED, NO FURTHER NEEDS, ASSISTED WITH VOID VIA URINAL. DRY ATTENDS IN PLACE, FRESH WATER IN ROOM. CALL LIGHT IN REACH.
--- NOTE | 2021-07-18 00:16 | NUR ---
pt LAYING ON LEFT SIDE, PILLOWS UNDER RIGHT SIDE. REPOSITIONED WITH HELP FROM HOA HAIRSTON. NO FURTHER NEEDS, CALL LIGHT IN REACH.
--- NOTE | 2021-07-18 02:20 | NUR ---
pt REPOSITIONED IN BED, BILATERAL HIPS FLOATED. ASSESSMENT COMPLETE, NO NEW CHANGES OR CONCERNS. IV SITE LEAKING, SITE DISCONTINUED. CATHETER TIP INTACT. IV ATTEMPT UNSUCCESSFUL, JESSICA CCU RN TO COME AND ATTEMPT IV PLACEMENT.
--- NOTE | 2021-07-18 03:30 | NUR ---
IV VANCO INFUSING PER MD ORDERS, NEW IV 20G PLACED BY CCU AZAR LOPEZ. NO FURTHER NEEDS AT THIS TIME. CALL LIGHT IN REACH.
--- NOTE | 2021-07-18 05:08 | NUR ---
IV VANCO COMPLETE, IV SITE WNL. pt REPOSITIONED IN BED, NOW LAYING ON HIS RIGHT SIDE. PILLOW UNDER LEFT HIP. NO FURTHER NEEDS, CALL LIGHT IN REACH.
--- NOTE | 2021-07-18 07:43 | NUR ---
REPORT RECIEVED FROM AESTHETICS INSTRUCTOR RNBRICE.
--- NOTE | 2021-07-18 07:45 | NUR ---
Call light answered, pt requests assistance with urinal. Pt also had incontinent void, dennis care and attends changed. Legs repositioned onto pillows per pt request, no other needs at this time.
--- NOTE | 2021-07-18 08:39 | NUR ---
PT AWAKE IN BED, BUT WANTS TO SLEEP LONGER. BREAKFAST ORDERED, ORAL CARE PLANNED FOR AFTER BREAKFAST. PT REPOSITIONED FROM LAYING ON RIGHT HIP TO BOTH HIPS FLOATED. CALL LIGHT WITHIN REACH. NO FURTHER NEEDS AT THIS TIME.
--- NOTE | 2021-07-18 13:03 | NUR ---
DR. LOAIZA IN TO SEE PATIENT, LEG DRESSINGS REMOVED. BILATERAL LOWER EXTREMITIES WASHED WITH WOUND CLEANSER, NON-STICK DRESSINGS APPLIED TO RIGHT AND LEFT POSTERIOR CALF, LEFT HEEL, COVERED WITH GUAZE.
--- NOTE | 2021-07-18 13:37 | NUR ---
LAB IN TO DRAW VANCO TROUGH.
--- NOTE | 2021-07-18 13:57 | NUR ---
PT REPOSITIONED IN BED FROM BOTH HIPS FLOATED TO RIGHT HIP FLOATED. PT TRIED TO USE THE URINAL AND HAD NO SUCCESS. CALL LIGHT WITHIN REACH. NO FURTHER NEEDS AT THIS TIME.
--- NOTE | 2021-07-18 14:58 | NUR ---
Vancomycin trough level = 24.3mcg/ml, but as level was drawn only 8.5hrs after end of infusion, actual trough level is extrapolated to 21.4mcg/ml. Reduce dose to 1250mg iv q 12 hrs, begin today at 1700
--- NOTE | 2021-07-18 16:29 | NUR ---
PATIENT IS RESTING IN BED, LEGS REMAIN ELEVATED ON PILLOWS. PATIENT DENIES OTHER NEEDS AT THIS TIME.
--- NOTE | 2021-07-18 17:06 | NUR ---
PATIENT SITTING UP IN BED TO EAT DINNER.
--- NOTE | 2021-07-18 19:15 | NUR ---
SHIFT REPORT FROM NURSE DORADO. PT LAYING IN BD RESTING WITH EYES CLOSED. WILL RETURN SHORTLY. CALL LIGHT WITHIN REACH
--- NOTE | 2021-07-18 20:55 | NUR ---
IN ROOM FOR EVENING MEDS AND ASSESSMENT. PT IS AWAKE AND ALERT AND TALKATIVE IN BED. PT REPORTS NEUROPATHY PAIN IN FEET. 325MG PRN TYLENOL ADMINISTERED PER PT REQUEST ALONG WITH 6MG MELATONIN. LUNG SOUNDS CLEAR, BOWEL TONES ACTIVE. PT REPORTS A BM TODAY. LT ARM EDEMA 2+ WITH ASSOCIATED REDNESS. BLE TO KNEES SEVERE EDEMA/CELLULITIS. MARKED AREA ON LT LEG SHOWS THAT REDNESS IS WITHIN BOUNDARIES. PT REPORTS NUMBESS IN BOTH HANDS, BOTH FEET UP TO CALF. THIS IS CHRONIC NUMBNESS/NEUROPATHY. LIGHT GAUZE BANDAGES INTACT ON BLE. PT DENIES FURTHER NEEDS AT THIS TIME. CALL LIGHT WITHI REACH.
--- NOTE | 2021-07-19 02:20 | NUR ---
IN TO CHECK ON PT; PT WOULD LIKE TO TRY TO URINATE. 150ML URINE INTO URINAL BUT PT HAD BEEN INCONTINENT. FRESH DEPENDS PUT ON, PT REPOSITIONED TO LT TILT. WARM BLANKET PROVIDED PER PT REQUEST. CALL LIGHT WITHIN REACH. NO FURHTER NEEDS AT THIS TIME.
--- NOTE | 2021-07-19 03:54 | NUR ---
CALL LIGHT ANSWERED. PT VOIDED 250ML CLEAR YELLOW URINE. SOME INCONTINENCE IN PAD. NEW PAD PLACED IN DEPENDS. CALL LIGHT WITHIN REACH
--- NOTE | 2021-07-19 05:00 | NUR ---
IN ROOM TO HANG IV VANCO. PT AWAKES WITH ACTIVITIY IN ROOM. VITALS DONE. VSS. PT DENIES NEEDS AT THIS TIME. CALL LIGHT WITHIN REACH
--- NOTE | 2021-07-19 05:48 | NUR ---
ANSWEREDE CALL LIGHT NEEDS HELP TO USE THE URINAL.
--- NOTE | 2021-07-19 07:55 | NUR ---
REPORT RECEIVED FROM AZAR MESA. PT APPEARS TO BE SLEEPING.
--- NOTE | 2021-07-19 09:13 | NUR ---
Patient has finished breakfast, 25%. The patient said that he has a hard time eating sometimes. I offered to chop up his food after he tried eating independently before I entered the room. He said that he was finished with his breakfast. 1PA/SBA drinking coffee because sometimes he has a had time getting the straw back out of his mouth with only his right hand, which seems the most mobile. He was asking about physical therapy and when his nurse will come back. The RN has been notified.
--- NOTE | 2021-07-19 11:20 | NUR ---
Vitals, I&Os are complete. Ernestina-care, 1PA. Patient was active by rolling. Patient was lifted up in bed, 2PA. I&O edited was made on urine output. Call light is in reach and there are no further requests.
--- NOTE | 2021-07-19 12:30 | NUR ---
Spoke with Monty. He states he lives in an apartment on the bottom floor. He has a caregiver he pays out of pockets. He spends 1-3 hrs per day. He sees pt daily and gets him up and cleaned up for the day Pt is no longer able to walk or assist cg. He would like to go to a SNF for rehab and regain ability to stand and transfer. Pt denies issues with alcoholism, but does state he drinks a 6 pack per day. He states his cg has a second job, so is not able to spend much time on some days. He cleans pts home, does laundry, and brings/cooks him food. Pt would like placement to [facility] and informed they are not cur- rently accepting pts. List given of SNFS in area. Pts first choice is [facility], second choice is [facility] and rehab. Pulled up pictures of [facility] on my phone and showed them to Monty. He is happy with the photos and would like to go there. I will fax chart to Nani at [facility].
--- NOTE | 2021-07-19 12:48 | NUR ---
PATIENT ATE 60% FOR LUNCH, REPORTED THAT D/C GEOPH[employer] LABORATORY CHIEF WAS WORKING ON PLACEMENT TO ODEM.
--- NOTE | 2021-07-19 13:17 | NUR ---
Vitals, I&Os are complete. The patient would like to be checked again soon after they've had their bed bath to see if they need a clean brief. Call light is in reach and there are no other requests.
--- NOTE | 2021-07-19 13:24 | NUR ---
Face sheet, covid test with not showing pt was vaccinated x 2, ER note, H&P, progress notes, PT eval faxed to Nani at [facility].
--- NOTE | 2021-07-19 15:36 | NUR ---
Patient had a bed bath, 1PA. This includes utilizing the shower cap. The patient has had a lot of dandruff built up on the patient's head. Ernestina-care, 2PA.
--- NOTE | 2021-07-19 15:57 | NUR ---
CHANGED PT DRESSING ON BILATERAL LEGS WITH HOA CUNHA'S ASSISTANCE. PT TOLERATED WELL. CLEANED WITH WOUND CLEANSER. AND WRAPPED WITH NON ADHERANT AND KERLIX. CHANGED PT DEPENDS AND BEDDING.
--- NOTE | 2021-07-19 17:16 | NUR ---
Called and spoke with Nani at [facility]. They did not receive the chart I faxed earlier. Refaxed chart to [facility] to review pt for admission.
--- NOTE | 2021-07-19 17:57 | NUR ---
THIS RN IN PTS ROOM PER PT REQUEST TO MOVE TRAY AND BEDSIDE TABLE. PT ALSO REQUESTING HELP WITH URINAL AT THIS TIME. PT ABLE TO VOID SUFFIENT. PT STATES THAT HE NEEDS NOTHING ELSE AT THIS TIME. I&O AND VITALS COMPLETE
--- NOTE | 2021-07-19 18:53 | NUR ---
in room for scheduled meds. pt had several questions regarding discharge. answered.
--- NOTE | 2021-07-19 19:46 | NUR ---
REPORT RECEIVED FROM DAY SHIFT RN. PT LYING IN BED ALERT AND ORIENTED. DENIES NEEDS AT THIS TIME. WHITE BOARD UPDATED. CALL LIGHT IN REACH.
--- NOTE | 2021-07-19 21:53 | NUR ---
EVENING ASSESSMENT COMPLETE. SCHEDULED MEDS ADMINISTERED PER EMAR. PRN ADMINISTERED FOR SLEEP PER PT REQUEST. ASSISTED PT TO USE URINAL. BLE ELEVATED ON PILLOWS. REDNESS ON LEFT ARM AND THIGH NOTED. REDNESS ON LEFT THIGH WITHIN OUTLINE. ASSISTED PT TO REPOSITION IN BED. PT DENIES QUESTIONS OR CONCERNS. CALL LIGHT IN REACH.
--- NOTE | 2021-07-19 22:53 | NUR ---
CALL LIGHT ANSWERED. ASSISTED PT TO USE URINAL TO VOID 75 ML YELLOW URINE. BLANKET PROVIDED. NO FURTHER NEEDS.
--- NOTE | 2021-07-20 01:00 | NUR ---
PATIENT CALLED NEEDED HELP TO USE THE URINAL. CHANGED PATIENT'S ATTENDS. NO FURTHER NEEDS AT THIS TIME.
--- NOTE | 2021-07-20 01:40 | NUR ---
PT AWAKE IN BED, STATES "EVERYTHING IS JUST FINE". BLE ELEVATED ON PILLOWS. DENIES NEEDS. CALL LIGHT IN REACH.
--- NOTE | 2021-07-20 03:00 | NUR ---
PT CALLED, REQUESTED TO USE URINAL. PT INSTRUCTED TO MOVE SHEETS, IS ABLE TO DO SO. PT HOPES TO HAVE A PLAN TODAY TO WHERE HE WILL GO TO HAVE MORE REHAB. NO OTHER NEEDS AT THIS TIME.
--- NOTE | 2021-07-20 03:13 | NUR ---
CALL LIGHT ANSWERED. DIRECTOR WATER AND WASTE SERVICES IN TO ASSIST PT WITH URINAL. ASSESSMENT COMPLETE. BLE AND LEFT ARM ELEVATED ON PILLOWS. ASSISTED TO REPOSITION IN BED. DENIES PAIN OR NAUSEA. NO FURTHER NEEDS. CALL LIGHT IN REACH.
--- NOTE | 2021-07-20 05:41 | NUR ---
VS AND I&O COMPLETE. IV ABX INFUSING WNL. PT DENIES FURTHER NEEDS. CALL LIGHT IN REACH.
--- NOTE | 2021-07-20 06:00 | NUR ---
PT CALLED, ASSISTED WITH URINAL, NOTED TO HAVE INCONT URINE, CARE PROVIDED, TURNED TO HIS LEFT SIDE, CALL LIGHT WITHIN REACH.
--- NOTE | 2021-07-20 07:35 | NUR ---
PT WAS IN BED. WHITEBOARD WAS UPDATED. PT WAS GIVEN A WARM WASHCLOTH FOR THEIR FACE. PT REQUESTED TO BE LEFT THERESA TO GET MORE SLEEP. CALL LIGHT IS WITHIN REACH. NO FURTHER NEEDS AT THIS TIME.
--- NOTE | 2021-07-20 07:55 | NUR ---
BEDSIDE REPORT FROM MIGUEL ÁNGEL RN, PT HAS HAD AN UNREMARKABLE INSURANCE COUNSEL, PT IS HEALING AND RED AREA RECEDING FROM LINES MARKED ON THIGH.
--- NOTE | 2021-07-20 08:27 | NUR ---
PT IS BED BOUND, THIS ASPARAGUS BUNCHER WILL GIVE PT A BED BATH AFTER BREAKFAST. CALL LIGHT IS WITHIN REACH. NO FURTHER NEEDS AT THIS TIME.
--- NOTE | 2021-07-20 09:31 | NUR ---
PT RESTING IN BED, TALKING WITH OCCUPATIONAL THERAPY. PT ALERT AND ORIENTED.
--- NOTE | 2021-07-20 09:39 | NUR ---
PT REPORTS NO PAIN OTHER THAN NEUROPATHY PAIN THAT IS CHRONIC
--- NOTE | 2021-07-20 10:05 | NUR ---
Spoke with Monty. Plan for dc to [facility] today. Awaiting confirmation. His friend has delivered his suitcase with clothing and personal items. Pt will transport per [facility] van. Updated he will need a covid test today. Pt denies questions.
--- NOTE | 2021-07-20 10:45 | NUR ---
PT RESTING IN BED ALERT AND ORIENTED WANTING TO HAVE A NOTARY COME TO HIS ROOM FOR PAPERS TO BE SIGNED. PT REPORTS NO PAIN OR NAUSEA, NO NEEDS AT THIS TIME.
--- NOTE | 2021-07-20 10:55 | NUR ---
Rapid covid test not complete.
[2021-07-20] MEDS ORDERED: DOXYCYCLINE HY100 MG PO ×2 (10:56→10:58)
--- NOTE | 2021-07-20 11:00 | NUR ---
RT COLLECTED COVID 19 SWAB WITH NO COMPLICATIONS. RT USED THE CEPHEID RAPID TEST THROUGH IN HOUSE LAB PER DR REQUEST AT THIS TIME.
--- NOTE | 2021-07-20 11:00 | NUR ---
Spoke with Nani from [facility]. They will accept pt today.
--- NOTE | 2021-07-20 12:30 | NUR ---
Received call from [facility] and they will pick Monty up at 1530 and transport per van today. and Karin ASKEW notified.
--- NOTE | 2021-07-20 13:21 | NUR ---
Face sheet, Dc summary, Passr, Covid test, PT eval, progress notes from today faxed to Nani at [facility].
--- NOTE | 2021-07-20 14:05 | NUR ---
Beatriz Lutz in to assist pt with notorizing a document.
--- NOTE | 2021-07-20 14:56 | NUR ---
pt changed of incontinence, urine and stool. BLE DRESSINGS CHANGED.
--- NOTE | 2021-07-20 15:33 | NUR ---
PATIENT IN WHEELCHAIR AND TRANSPORT TO [facility]. UNABLE TO GIVE FLU VACCINE.
--- NOTE | 2021-07-20 15:52 | NUR ---
REPORT CALLED TO JARRET MARIE [facility] IN [place]. NO FURTHER QUESTIONS OR CONCERNS.
== END 2021-07-20 15:35 | disposition home or self-care (01) | DRG 872 ==
LOC: ED 11:07 → CCU 18:05 → MS 07-17 16:20
PROVIDERS: ADMIT Internal Medicine; ATTEND Internal Medicine
DX: A41.9 Sepsis, unspecified organism (principal); L03.116 Cellulitis of left lower limb; L03.115 Cellulitis of right lower limb; I48.21 Permanent atrial fibrillation; Z66 Do not resuscitate; I11.0 Hypertensive heart disease with heart failure; Z20.822 Contact with and (suspected) exposure to COVID-19; N40.0 Benign prostatic hyperplasia without lower urinary tract symptoms; I87.2 Venous insufficiency (chronic) (peripheral); K21.9 Gastro-esophageal reflux disease without esophagitis; I50.9 Heart failure, unspecified; G62.9 Polyneuropathy, unspecified; K70.30 Alcoholic cirrhosis of liver without ascites; R65.20 Severe sepsis without septic shock; G47.00 Insomnia, unspecified; Z79.01 Long term (current) use of anticoagulants; Z98.1 Arthrodesis status; Z98.890 Other specified postprocedural states; Z79.899 Other long term (current) drug therapy; Z74.01 Bed confinement status
CPT/HCPCS: 71045; 80053; 80162; 80202; 81001; 83605; 83735; 83880; 84484; 85007; 85025; 87040; 93005; 93010; 93971; 96365; 96366; 96367; 97110; 97163; 97167; 97535; 99285-25; C9803; J0696; J1650; J2370; J3370; J3475; J7060; J7121; U0003

== ENCOUNTER 2021-10-06 15:25 | Emergency (ER) | payer MEDICARE, OTHER ==
[~2021-10-06] VITALS: Ht 180.3 cm; Wt 94.9 kg
[~2021-10-06 15:25] MED LIST changes: +ACETAMINOPHEN325 M1 PO; +DOXYCYCLINE HY100 MG PO; +FINASTERIDE5 MG PO; +FUROSEMIDE20 MG PO; +POTASSIUM CHLO10 ME1 PO
[2021-10-06] MEDS ORDERED: HYDROCODON-ACE1 EA10 PO (15:59)
[2021-10-06] MEDS ORDERED: MELATONIN3 MG PO (16:01)
[2021-10-06] MEDS ORDERED: [UNRECOGNIZED DRUG - OTHER] PO (16:02)
[2021-10-06] MEDS ORDERED: BACTRIM DS TAB1 EACH PO (16:04)
== END 2021-10-06 16:51 | disposition home or self-care (01) ==
LOC: ED 15:25
DX: S81.802A Unspecified open wound, left lower leg, initial encounter (principal); X58.XXXA Exposure to other specified factors, initial encounter; I10 Essential (primary) hypertension; I48.91 Unspecified atrial fibrillation; Z79.899 Other long term (current) drug therapy
CPT/HCPCS: 99283

== ENCOUNTER 2022-04-04 12:50 | Emergency (ER) | payer MEDICARE, OTHER ==
[~2022-04-04] VITALS: Ht 180.3 cm; Wt 86.2 kg
[~2022-04-04 12:50] MED LIST changes: +BACTRIM DS TAB1 EACH PO; +HYDROCODON-ACE1 EA10 PO; +MELATONIN3 MG PO; +[UNRECOGNIZED DRUG - OTHER] PO
[2022-04-04] MEDS ORDERED: CEPHALEXIN500 MG PO (13:34)
== END 2022-04-04 13:45 | disposition home or self-care (01) ==
LOC: ED 12:50
DX: I83.013 Varicose veins of right lower extremity with ulcer of ankle (principal); L97.319 Non-pressure chronic ulcer of right ankle with unspecified severity; I10 Essential (primary) hypertension; I48.91 Unspecified atrial fibrillation; Z79.899 Other long term (current) drug therapy
CPT/HCPCS: 99283

== ENCOUNTER 2023-11-06 12:16 | Emergency (ER) | payer MEDICARE, OTHER ==
[~2023-11-06] VITALS: Ht 180.3 cm; Wt 125.0 kg
[~2023-11-06 12:16] MED LIST changes: +CEPHALEXIN500 MG PO
[2023-11-06 13:47] LABS: BASOPHILS 0.6 % (0-2); EOSINOPHILS 1.2 % (0-6); HEMATOCRIT 42.7 % (35.0-50.0); HEMOGLOBIN 14.2 g/dL (12.0-18.0); LYMPHOCYTES 9.2 % (24-44); MCH 29.1 (27-36); MCHC 33.2 g/dl (30-36); MCV 87.5 fl (81-99); MONOCYTES 9.3 % (0-12); NEUTROPHILS 79.7 % (39-80); PLATELET COUNT 340 K/uL (140-440); RBC 4.88 M/ul (4.3-5.7); RDW 15.1 (10.5-15.0)
[2023-11-06 14:14] LABS: ALBUMIN 2.9 g/dL (3.4-5.0); ALBUMIN/GLOBULIN RATIO 0.62 (1.1-2.4); ALKALINE PHOSPHATASE 84 U/L (46-116); ALT (SGPT) 11 U/L (14-59); ANION GAP 9.8 (7-21); AST (SGOT) 13 U/L (15-37); BILIRUBIN, TOTAL 0.5 ng/dL (0.2-1.0); BUN/CREATININE RATIO 8.82 (6.0-28.6); CALCIUM 8.5 mg/dL (8.5-10.1); CARBON DIOXIDE 31 mmol/L (21-32); CHLORIDE 99 mmol/L (98-107); CREATININE, SERUM 1.02 mg/dL (0.70-1.30); DIGOXIN 0.2 ng/dL (0.9-2.0); GLOMERULAR FILTRATION RATE,EST 78 mL/min (>60); MAGNESIUM 2.2 mg/dL (1.8-2.4); POTASSIUM 4.8 mmol/L (3.5-5.1); PROTEIN, TOTAL 7.6 g/dL (6.4-8.2); UREA NITROGEN 9 mg/dL (7-18)
--- NOTE | 2023-11-06 15:24 | NUR ---
WOUND CARE CONSULTED FOR BLE WOUNDS. PT HX OF A-FIB, NEUROPATHY IN HANDS AND FEET, HTN, ETOH AND LIVER DISEASE. MRSA AND LE CELLULITIS. WOUNDS NOTED TO LEFT CALF AND RIGHT LATERAL LOWER LEG. PT HX OF CHRONIC VENOUS ULCERS TREATED AT [facility]. PT STATES HE NOTICED HIS CURRENT WOUNDS TWO WEEKS AGO. STATES HE DID NOT TRY TO TREAT THEM ON HIS OWN. REPORTS HE CAME INTO THE ER TODAY DUE TO THE DISCOMFORT AND CONCERN ABOUT GETTING THE WOUNDS TREATED. LEFT CALF WOUND, FULL THICKNESS, SUSPECTED ETIOLOGY VENOUS INSUFFICIENCY. SIZE: 11X5X0.2CM WOUND BASE: 80% PINK, NON-GRANULAR TISSUE. 20% SCATTERED, ADHERENT YELLOW SLOUGH. EDGES: OPEN AND ATTACHED. EXUDATE: SMALL AMOUNT OF SEROUS DRAINAGE. GUTIERREZ-WOUND SKIN: RED AND WARM. RIGHT LATERAL LOWER EXTREMITY WOUND, FULL THICKNESS, SUSPECTED ETIOLOGY VENOUS INSUFFICIENCY. SIZE: 10X8X0.2CM. WOUND BASE: 80% PINK, NON-GRANULAR TISSUE, 20% SCATTEERED, ADHERENT YELLOW SLOUGH. EDGES: OPEN AND ATTACHED. GUTIERREZ-WOUND SKIN: RED AND WARM. EXUDATE: SMALL AMOUNT OF SEROUS DRAINAGE, NO ODOR. BLE CHARACTERISTICS: VENOUS DERMATITIS, 4+ PITTING EDEMA FROM TOES TO KNEES, HEMOSIDERINE STAINING AND LIMB HEAVINESS. RECOMMENDATIONS: CLEANSE BLE WITH WARM WATER AND SOAP. REMOVE DRY FLAKY DEBRIDES FROM VENOUS DERMATITIS DURING CLEANSING AND PAT DRY. APPLY SILICONE BARRIER CREAM TO INTACT SKIN OF BLE. CLEANSE WOUNDS WITH WOUND CLEANSER. APPLY DEBRISOFT LOLLY TO WOUND BASES TO REMOVE LOOSELY ADHERENT SLOUGH. CLEANSE WOUNDS AND PAT DRY. APPLY SKIN PROTECTANT TO GUTIERREZ-WOUND SKIN, UP TO WOUND EDGES AND ALLOW TO DRY. CUT HYDROFERA BLUE TO FIT INSIDE THE BORDERS OF THE WOUND BED AND FILLED WOUND BASE. COVER WITH 4X4 GAUZE AND SECURE WITH GAUZE ROLL AND ELASTIC BANDAGE. CHANGE 3 TIMES WEEKLY. PT TO FOLLOW UP WITH PCP, , FOR WOUND CARE. WOUND CARE PROVIDED TO PT TODAY RECOMMENDED ABOVE. PT TOLERATED WELL.
[2023-11-06] MEDS ORDERED: FUROSEMIDE20 MG PO (15:30)
[2023-11-06 15:50] VITALS: BP 153/82
== END 2023-11-06 15:35 | disposition home or self-care (01) ==
LOC: ED 12:16
PROVIDERS: Emergency Medicine
DX: I87.2 Venous insufficiency (chronic) (peripheral) (principal); L97.829 Non-pressure chronic ulcer of other part of left lower leg with unspecified severity; L97.819 Non-pressure chronic ulcer of other part of right lower leg with unspecified severity; I48.91 Unspecified atrial fibrillation; I10 Essential (primary) hypertension; Z79.899 Other long term (current) drug therapy
CPT/HCPCS: 36415; 80053; 80162; 83735; 83880; 85025; 99283

== ENCOUNTER 2024-11-13 13:01 | Inpatient (IN) | payer MEDICARE, OTHER ==
[~2024-11-13] VITALS: Ht 180.3 cm; Wt 105.6 kg
--- NOTE | ~2024-11-13 | EKG ---
[facility] [address] [place], [place] [address] Draft EKG completed, results pending confirmation PATIENT NAME: DIANE BOTELLO Electrocardiogram DATE OF : 50 PHYSICIAN: PRELIMINARY REPORT #: [id number] REPORT IS CONFIDENTIAL AND NOT TO BE RELEASED WITHOUT AUTHORIZATION
[2024-11-13] MEDS ORDERED: ACETAMINOPHEN500 M1 PO (13:15)
[2024-11-13] MEDS ORDERED: ASPIRIN81 MG PO (13:15)
[2024-11-13] MEDS ORDERED: MELATONIN1 MG PO (13:16)
[2024-11-13 13:28] LABS: BASOPHILS 0.4 % (0-2); EOSINOPHILS 1.2 % (0-6); HEMATOCRIT 40.6 % (35.0-50.0); LYMPHOCYTES 7.8 % (24-44); MCH 33.5 (27-36); MCHC 34.6 g/dl (30-36); MCV 96.9 fl (81-99); MONOCYTES 6.9 % (0-12); NEUTROPHILS 83.7 % (39-80); PLATELET COUNT 214 K/uL (140-440); RBC 4.19 M/ul (4.3-5.7); RDW 14.2 (10.5-15.0)
[2024-11-13] MEDS ORDERED: SODIUM CHLORIDE 0.9% 1,000 ML IV ONE (13:30)
[2024-11-13 13:44] LABS: ALBUMIN 2.4 g/dL (3.4-5.0); ALBUMIN/GLOBULIN RATIO 0.51 (1.1-2.4); BILIRUBIN, TOTAL 0.6 ng/dL (0.2-1.0); BUN/CREATININE RATIO 3.19 (6.0-28.6); CALCIUM 8.6 mg/dL (8.5-10.1); CREATININE, SERUM 0.94 mg/dL (0.70-1.30); MAGNESIUM 1.7 mg/dL (1.8-2.4); PROTEIN, TOTAL 7.1 g/dL (6.4-8.2)
[2024-11-13 14:01] LABS: PARTIAL THROMBOPLASTIN TIME 27.9 Sec (22.9-41.3); PROTIME 13.1 Sec (11.2-14.2)
[2024-11-13 16:17] LABS: INFLUENZA B NAA NEGATIVE (NEGATIVE); RESPIRATORY SYNCYTIAL VIR NAA NEGATIVE (NEGATIVE)
[2024-11-13 20:19] LABS: BILIRUBIN, URINE NEGATIVE (negative); BLOOD/HGB, URINE NEGATIVE (Negative); KETONE, URINE NEGATIVE (Negative); LEUK ESTERASE, URINE NEGATIVE (negative); NITRITE, URINE NEGATIVE (negative)
[2024-11-13] MEDS ORDERED: MELATONIN 3 MG TAB PO PRN (21:00)
[2024-11-13] MEDS ORDERED: ACETAMINOPHEN 325 MG TAB PO PRN (21:45)
[2024-11-13] MEDS ORDERED: ondansetron HCL 4 MG/2 ML VIAL IV PRN (21:45)
[2024-11-13] MEDS ORDERED: LACTATED RINGER'S 1,000 ML IV SCH (21:45)
[2024-11-13 22:18] LABS: PHOSPHORUS, INORGANIC 3.4 mg/dL (2.5-4.9); TSH, 3RD GENERATION 1.347 uIU/mL (0.358-3.740)
[2024-11-13 23:08] VITALS: BP 155/59
[2024-11-13] MEDS ORDERED: MAGNESIUM SULFATE 2 GM/50 ML BAG IV ONE (23:30)
[2024-11-13] MEDS ORDERED: THIAMINE HCL 100 MG,FOLIC ACID 1 MG,MULTIVITAMINS 10 ML in SODIUM CHLORIDE 0.9% 1,000 ML IV ONE (23:45)
[2024-11-13] MEDS ORDERED: LORazepam 2 MG/ML VIAL IV/IM PRN (23:45)
[2024-11-14] VITALS (12 sets, daily range): BP systolic 104–155; BP diastolic 54–93
--- NOTE | 2024-11-14 00:17 | NUR ---
2305 - admitted to room 123 from ER. curry sweet used, very stiff and weak LE, and arms. Alert and oriented to all, pleasant and cooperative. on room air, lungs clear bilat, slightly dim at bases, large abd LBM 11/13/24. umbilical hernia present. incontinent of strong smelling urine. skin care, attedns in place. edema and redness to scrotum and under pannus redness present, skin care done. scabbed open area noted LFA, hands, and large open area L HIP all wounds draining small amount of ss drainage, strong smell. Edematous LE coverings, in place, tried to remove and skin peeled off, will not remove until seen by Wound RN, charge nurse notified. LE edematous, elevated. field start SL LFA present
[2024-11-14] MEDS ORDERED: THIAMINE HCL 200 MG/2 ML VIAL ONE (00:18)
--- NOTE | 2024-11-14 01:29 | NUR ---
AWAKENS EASILY, NO C/O PAIN . ON ROOM AIR, TOLERATED MAG RIDER. BANANA BAG STARTED, MED TEACHING DONE, STATED UNDERSTANDING. LE ELEVATED
--- NOTE | 2024-11-14 02:25 | NUR ---
FRONT END DEVELOPER JAVASCRIPT HTML CSS OBTAINED VITALS. NO NEW I&0 AT THIS TIME. PT STATES NO NEEDS AND CALL LIGHT IS WITHIN REACH.
--- NOTE | 2024-11-14 04:36 | NUR ---
Used call light, voided, using urinal. voided qs, helped w repositioning. On room air. very stiff LE, dressing in place. scabbed over areas on Left arm-fingers
--- NOTE | 2024-11-14 05:42 | NUR ---
Pt cooperative with assessments and vitals. daile bed weight 103.9 KG regular bedding and 3 pillows. IVF infusing w/o problems, has tolerated mag rider and Banana bag, LR currently infusing. RFA. scant amount of serous drainage from L foream, L hand/fingers scabbed over areas, and open large area L hip. continues to have strong smelling odor lower legs dressings. Skin wiped down gently earlier as pt had many car hairs sticking to wounds, skin and periarea. tolerated well. WIll be placed on Contact Precautions as a nursing judgement until evaluated by MD. No cultures were obtained on admit. MRI questionaire completed and faxed
[2024-11-14] MEDS ORDERED: THIAMINE HCL 100 MG TAB PO SCH (08:00)
[2024-11-14] MEDS ORDERED: DIGOXIN 125 MCG TAB PO SCH (09:00)
[2024-11-14] MEDS ORDERED: CYANOCOBALAMIN 1,000 MCG TAB PO SCH (09:00)
[2024-11-14] MEDS ORDERED: ENOXAPARIN SODIUM 40 MG/0.4 ML SYR SUB-Q SCH (09:00)
[2024-11-14] MEDS ORDERED: PHARMACY RENAL DOSE ADJUSTMENT 1 DOSE MISC PO SCH (12:00)
--- NOTE | 2024-11-14 12:00 | NUR ---
UR CLINICAL REVIEW: 2 MN JOSE M, MEETS INPT FOR WEAKNESS PROGRESSING AND SAFETY CONCERNS. CONTINUED EVALUATION NEEDED. MEDICARE INPT 11/13/24 @ 2148 ORDER MATCHES REG AUTH NOT REQUIRED PER MEDICARE RULES DC PLAN PENDING EVALUATION
--- NOTE | 2024-11-14 12:18 | NUR ---
Spoke with Monty. He states he is no longer able to care for himself at home. Pt has wound on lower extremties and wounds can be smelled from the hallway. improvement manager will see him today. Pt lives in an apartment with a ramp. He uses a wc or sits in his recliner. He also sleeps in his recliner. Pt has a a walker the he uses to help transfer. He states the last week he is not able to transfer himself. Initially there was concern pt may have had a stroke, but MRI did not show this. We had discussed options of IP rehab, SNF, or [facility]. Pt feels on dc from SNF he will need to go to an [facility]. I will give him a list of [facility] in our area. We discussed his drinking and he states has drank heavily for years. He has also stopped at home and in a SNF in the past and did not have an issue with DTS. He does not want to leave town, I will call [facility] to check for a bed.
--- NOTE | 2024-11-14 12:30 | NUR ---
Bed bath done at this time.
--- NOTE | 2024-11-14 12:38 | NUR ---
Patient in bed watching tv, alert and oriented x3. Patient reports generalized weakness for the last couple of weeks. Scatter wounds noted to arms, scabs in place/healing. Patient reports he receives wound care once per wk in day surgery for his legs. Wound care order in place at this time. Patient's IV is patent, fluids infusing per order. Patient reports he tolerated breakfast well. Call light within reach.
--- NOTE | 2024-11-14 15:07 | NUR ---
INFORMED PATIENT [facility] CAN ACCEPT HIM FOR SNF ON 11/17/24. LIST OF ASSISTED LIVING FACILITIES PROVIDED TO PATIENT. STATES HE WILL LIKELY TOUR FACILITIES TO MAKE FINAL DECISION IN THE FUTURE. AGREEABLE TO GO TO [facility] ON SUNDAY.
--- NOTE | 2024-11-14 15:44 | NUR ---
NOTED TELE LEADS OFF. REPLACED LEADS. VSS. PATIENT DENEIS ANY NEEDS AT THIS TIME. CALL LIGHT WITHIN REACH.
--- NOTE | 2024-11-14 15:45 | NUR ---
I spoke with Rosa at [facility]. She is with the nursing staff. They do have beds and when I gave her Monty's name, they stated they love him and do not think it would be an issue for him to return. Let them know he needs 2 more night IP stay. I will fax his chart and they will let me know Sunday if they can accept him.
--- NOTE | 2024-11-14 16:13 | NUR ---
Wound care nurse in with patient.
--- NOTE | 2024-11-14 17:17 | NUR ---
Patient's brief changed, smear of stool noted. Legs elevated at this time. Leg wounds are wrapped by wound nurse. Patient denies pain at this time. IV remains patent, fluids infusing at this time.
--- NOTE | 2024-11-14 17:56 | NUR ---
LE 1600: THIS RN IS HERE FOR A CONSULT OF THE LEFT FOREARM. IT WAS REPORTED THAT HE FELL 4 DAYS AGO AND OBTAINED THE INJURY AT THAT TIME. HE IS KNOW TO THIS RN ON AN OUTPATIENT BASIS - HE WAS DUE FOR BLE DRESSING CHANGES YESTERDAY, THIS WOUND RN WILL CHANGE THEM TODAY. THE BLE DRESSINGS ARE REMOVED. BLE ARE CLEANSED WITH WARM, WET WASH CLOTHS. THE RLE LATERAL ANKLE AND THE LLE POSTERIOR ANKLE WOUNDS ARE PHOTOGRAPHED AND MEASURED - SEE COMPLEX WOUND ASSESSMENT. THESE WOUNDS ARE DRESSED WITH IODOSORB, A NON-ADHESIVE FOAM, LOTION TO PERIWOUND SKIN, ROLL GAUZE, AND ELASTIC TUBULAR COMPRESSION SLEEVES. THE LEFT FOREARM IS A A FULL THICKNESS SKIN TEAR. THE WOUND APPEARS TO HAVE NOT BEEN CLEANSED OR REHYDRATED IN AN ATTEMPT TO REAPPROXIMATE THE SKIN FLAP. THE SKIN FLAP IS DEBRIDED DUE TO THE AMOUNT OF DRY CRUSTED EXUDATE PRESENT. THERE IS ALSO A SKIN TEAR ON THE THE HAND, ALSO COVERED WITH DRY/CRUSTED EXUDATE. A MAJORITY OF THE DRY/CRUSTED EXUDATE IS CLEANED OFF THE WOUNDS WITH A DEBRISOFT LOLLY AND NS. BOTH WOUNDS ARE MEASURED AND PHOTOGRAPHED - SEE COMPLEX WOUND ASSESSMENT FOR DETAILS. WOUNDS ARE DRESSED WITH A VERSATEL ONE SILICONE WOUND CONTACT LAYER, MEDIHONEY, QWIK FIBER, ROLL GAUZE, AND MEDIPORE TAPE. THE PT INFORMS THIS RN THAT HE HAS A WOUND ON HIS BUTTOCK - THERE WAS NO MENTION OF THIS WOUND ON THE CONSULT ORDER. THERE ARE NO PHOTOS OF ANY WOUNDS MENTIONED IN THE PT'S CHART TO REFERENCE. THE PT IS ROLLED UP ONTO HIS RIGHT SIDE, WHERE AN ABRASION IS FOUND ON THE LEFT HIP, REPORTEDLY FROM HIS FALL 4 DAYS AGO. THE AREA IS CLEANSED WITH WOUND CLEANSER AND DRY GAUZE. THE WOUND IS MEASURED AND PHOTOGRAPHED - SEE COMPLEX WOUND ASSESSMENT FOR DETAILS. SKIN PREP IS APPLIED TO PERIWOUND SKIN, MEDIHONEY IS APPLIED TO WOUND BED, THEN COVERED WITH AN ADHESIVE FOAM DRESSING. BLE DRESSINGS CHANGE STAY IN PLACE FOR A WEEK UNLESS SOILED. THE LEFT HAND AND FOREARM DRESSINGS - SILICONE CONTACT LAYER NEEDS TO STAY IN PLACE, CAN REAPPLY MEDIHONEY AND A SECONDARY DRESSING TO ABSORB EXUDATE NEEDED. THE LEFT HIP WILL NEED TO BE CHANGED EVERY 2-3 DAYS OR PRN FOR SOILED DRESSINGS.
--- NOTE | 2024-11-14 20:21 | NUR ---
HUMAN RESOURCES COMPENSATION ANALYST OBTAINED VITALS AND I&O. PT STATES NO NEEDS AT THIS TIME. CALL LIGHT WITHIN REACH.
--- NOTE | 2024-11-14 21:35 | NUR ---
as per tele, hr increaed to 160-170. Pt was talking on the phone. as soon as phone was removed heart rate readings per tele went down to 79-84. pt denies feeling fast heart rate at all. sitting up in bed, watching tv, denies c/o cp or any problems.
[2024-11-15] VITALS (12 sets, daily range): BP systolic 97–150; BP diastolic 57–95
--- NOTE | 2024-11-15 01:26 | NUR ---
CALL LIGHT ANSWERED. PT WANTED A SNACK. GORING CUTTER BROUGHT PT A GRANOLA BAR. GORING CUTTER THEN OBTAINED VITALS. NO NEW I&O AT THIS TIME. PT STATES NO FURTHER NEEDS AT THIS TIME. CALL LIGHT WITHIN REACH.
[2024-11-15] MEDS ORDERED: ALBUTEROL SULFATE 0.083% 3 ML VIAL ONE (02:08)
[2024-11-15] MEDS ORDERED: ALBUTEROL SULFATE 0.083% 3 ML VIAL INH PRN (02:15)
--- NOTE | 2024-11-15 02:25 | NUR ---
c/o sob, repositioned, sats 96% p80 resp 20. lungs clear dim at bses, wheezing auscultated at throat. no cough. RT notified, pt received neb tx and working w coronet. stated he feele better. repostioned in bed, ciwa 3.
--- NOTE | 2024-11-15 05:32 | NUR ---
COUNTY ADVISER OBTAINED VITALS AND I&O. PT STATES NO NEEDS AT THIS TIME. CALL LIGHT WITHIN REACH
--- NOTE | 2024-11-15 06:15 | NUR ---
Has slept off and on this shift. on room air. c/o sob earlier on the shfit after eating crackers and protein bar. was reasseed by RT, a neb given and pt worked with Coronet. stated he feels better. helpful with turning and repositioning in bed. Dressing to L arm and Le intact. tele#[address] SR
[2024-11-15 08:22] LABS: BASOPHILS 0.3 % (0-2); EOSINOPHILS 1.7 % (0-6); HEMATOCRIT 37.6 % (35.0-50.0); LYMPHOCYTES 8.7 % (24-44); MCH 33.7 (27-36); MCHC 34.6 g/dl (30-36); MCV 97.6 fl (81-99); MONOCYTES 7.1 % (0-12); NEUTROPHILS 82.2 % (39-80); PLATELET COUNT 151 K/uL (140-440); RBC 3.85 M/ul (4.3-5.7); RDW 14.4 (10.5-15.0)
[2024-11-15 08:33] LABS: ANION GAP 8.7 (7-21); BUN/CREATININE RATIO 6.09 (6.0-28.6); CALCIUM 7.7 mg/dL (8.5-10.1); CREATININE, SERUM 0.82 mg/dL (0.70-1.30); MAGNESIUM 2.1 mg/dL (1.8-2.4); POTASSIUM 3.7 mmol/L (3.5-5.1)
[2024-11-15 08:34] LABS: DIGOXIN 0.6 ng/dL (0.9-2.0)
--- NOTE | 2024-11-15 09:24 | NUR ---
Patient awake, alert and oriented x3, no acute distress. Patient denies pain at this time. Vital signs are stable, afebrile. Patient is on room air. Patient denies shortness of breath this morning. IV patent. No needs at this time, personal supplies and call light within reach.
[2024-11-15] MEDS ORDERED: POTASSIUM PHOSPHATE 30 MMOL in DEXTROSE 5% 500 ML IV ONE (11:45)
[2024-11-15] MEDS ORDERED: MICONAZOLE NITRATE 1 EA BTL TOP SCH (12:23)
--- NOTE | 2024-11-15 12:23 | NUR ---
Patient stood with physical therapy and myself-2P mod assist with fww, pt able to stand and take small step to right. Ernestina care done while pt stool d/t incontinence of stool. bg/redness noted to scrotal area. Nystatin powder ordered. New linens/brief and gown placed. Pt back to bed, no current needs.
--- NOTE | 2024-11-15 15:10 | NUR ---
Patient resting, eyes closed, respirations even and non labored. No discomfort noted. Personal supplies and call light within reach.
--- NOTE | 2024-11-15 21:06 | NUR ---
PT TURNED AND REPOSITONED IN BED. HOB ELEVATED, ON ROOM AIR, LUNG DIM AT BAES, COUGH MOIST PRODUCTIVE, HE SWALLOWS IT. KLEENEX AT BEDSIDE, FRESH WATER AND JUICE GIVE. DID OWN ORAL CARE. DRESSING L FOREARM WITH SCANT AMOUNT SS DRAINAGE, EDEMATOUS, ELEVATED. DRESSING L HAND INTACT. GOOD CMS BUT PT STATED HE HAS CHRONIC NEUROPATHY IN HANDS AND FEET. LE EDEMA 3+ LE, DRESSING CDI, ELEVATED WITH PILLOWS. EDEMATOUS RED GUTIERREZ AREA, POWDER TO AREA, RED AREAS UNDER PANNUS HEALING. SNACKS GIVEN ON REQUESTS, FLAT AFFECT BUT COOPERATIVE. SL LFA INTACT. WATCHNG TV
[2024-11-16] VITALS (9 sets, daily range): BP systolic 98–139; BP diastolic 51–71
--- NOTE | 2024-11-16 02:05 | NUR ---
AWAKE, USED URINAL, ON ROOM AIR, NO C/O PAIN OR SOB. TURNED AND REPOSITIONED. DECRESD EDEMA TO l ELBOW AREA, DRESSING MID FOREARM CHAGED, SCANT AMOUNT OF SS DRAINAGE. LE DRESSING INTACT, ELEVATED WITH PILLOWS, PLEASANT AND COOP
--- NOTE | 2024-11-16 03:48 | NUR ---
Eyes closed, no s/sx respiratory distress or c/o pain. L arm and legs elevated with pillows. Continues on contact precautions
[2024-11-16 05:38] LABS: ALBUMIN 2.1 g/dL (3.4-5.0); ANION GAP 6.1 (7-21); BUN/CREATININE RATIO 6.25 (6.0-28.6); CALCIUM 7.8 mg/dL (8.5-10.1); CREATININE, SERUM 0.8 mg/dL (0.70-1.30); MAGNESIUM 2.1 mg/dL (1.8-2.4); POTASSIUM 4.1 mmol/L (3.5-5.1)
--- NOTE | 2024-11-16 06:01 | NUR ---
AWAKE, COOPERATIVE WITH ASSESSMENTS. TURNED AND REPOSTIONED. NO C/O PAIN OR SOB. DRESSINGS L FOREARM, L HAND AND BILAT LE INTACT, ELEVATED.PLEASANT AND COOP, CIWA 1
--- NOTE | 2024-11-16 07:53 | NUR ---
PT AWAKE RESTING IN BED AT TIME OF SHIFT REPORT. AGREES HE IS COMFORTABLE CALL LIGHT IN REACH. FRESH H20 TO BEDSIDE DENIES OTHER NEEDS
--- NOTE | 2024-11-16 09:23 | NUR ---
PT EATS 100% OF MORNING MEAL. AGREES HE IS COMFORTABLE OTHER THAN CHRONIC NEUROPATHY DISCOMFORT. AGREES TO GET UP TO THE CHAIR AFTER A BIT WATCHING TV AT THIS TIME DENIES NEEDS OF
--- NOTE | 2024-11-16 11:05 | NUR ---
PT SITTING UP IN BED WATCHING TV DENIES DISCOMFORTS OR NEED OF ANYTHING
--- NOTE | 2024-11-16 12:46 | NUR ---
PT SELF FEEDING LUNCH WATCHING FOOTBALL. CALL LIGHT AND NEEDED ITEMS IN REACH
--- NOTE | 2024-11-16 16:39 | NUR ---
PT REPORTS DR CORONADO IN EARLIER ANSWERS ALL HIS QUESTIONS PLANS TO DC TO SNF. PT DENIES FURTHER QUESTIONS OR CONCERNS. WATCHING FOOTBALL NOW DENIES NEEDS OF
--- NOTE | 2024-11-16 16:39 | NUR ---
PT WORKING WITH P/T
--- NOTE | 2024-11-16 19:51 | NUR ---
PT AWAKE, HOB ELEVATED, ON ROOM AIR, L ARM AND LE ELEVATED. NO C/O PAIN
--- NOTE | 2024-11-16 21:10 | NUR ---
pt awake, alert and oriented. Repositioned up in bed, Allevyn to L hip in place, Dressing L FA and LH CDI, dressing to LE no changers. edeam 2+ RLE, 3+ Lankle. stated hx neuropathy chronic hands and feet. decreaed edema and redness to scrotum area, powder spplied. no c/o pain or n/v. had a large bm at change of shift
--- NOTE | 2024-11-17 03:53 | NUR ---
PT RESTING, ON ROOM AIR, NO S/SX DISTRESS, L ARMS AND BILAT LE ELEVATED, DRESSING IN PLACE. VOIDING QS DARK YELLOW URINE
[2024-11-17 05:25] VITALS: BP 132/73
--- NOTE | 2024-11-17 05:36 | NUR ---
COOPERATIVE WITH ASSESSMENT AND VITALS, NO C/O PAIN, USEES URINAL. HELPS WITH REPOSITONING, LE ELEVATED DRESSING INTACT
--- NOTE | 2024-11-17 08:00 | NUR ---
Texted Rosa at [facility] to see if they can accept this pt today.
[2024-11-17 08:56] VITALS: BP 107/65
[2024-11-17 08:58] VITALS: BP 107/65
--- NOTE | 2024-11-17 09:00 | NUR ---
NOtified by Rosa they can accept this pt. I called the wcv and they can transport this pt at 11:00. Orders printed and left on Dr. Dixon desk. Pts notes from the weekend and PT notes faxed at 8 am to Rosa.
--- NOTE | 2024-11-17 09:38 | NUR ---
PATIENT IN BED RESTING AT THIS TIME. VITALS DONE BY RN, I&O'S CHARTED. CALL LIGHT IN REACH. NO FURTHER NEEDS AT THIS TIME.
--- NOTE | 2024-11-17 10:45 | NUR ---
Orders have not been completed. I called the V and moved the transport back to 1300.
[2024-11-17 11:45] VITALS: BP 150/62
--- NOTE | 2024-11-17 11:45 | NUR ---
Orders, PASRR, EMAR x 3 days faxed to Rosa. Texted Rosa to let her know I have faxed. DC summary is a draft, I will fax when completed.
--- NOTE | 2024-11-17 12:09 | NUR ---
[facility]ICARE PROVIDED, NEW BRIEF DONNED. PT ASSISTED TO DRESS SELF. PT TRANSFERS TO WHEELCHAIR VIA FWW AND SBA. DISCUSSED DISCHARGE PLAN, PT VERBALIZES UNDERSTANDING. IV IN RIGHT WRIST REMOVED, TIP INTACT, GAUZE AND COBAN APPLIED TO SITE. DRESSING TO LUE C/D/I. VSS.
--- NOTE | 2024-11-17 12:58 | NUR ---
PT LEAVES UNIT VIA WHEELCHAIR ESCORTED BY AZAR DAS TO WHEELCHAIR [place] FOR TRANSPORT TO [facility]. PT LEAVES IN NO APPARENT DISTRESS.
--- NOTE | 2024-11-17 13:08 | NUR ---
TELEPHONE REPORT PROVIDED TO AZAR WILSON AT [facility].
== END 2024-11-17 12:55 | DRG 59 ==
LOC: ED 13:01 → MS 21:53
PROVIDERS: Emergency Medicine; ADMIT Student in an Organized Health Care Education/Training Program; ATTEND Student in an Organized Health Care Education/Training Program
DX: G37.9 Demyelinating disease of central nervous system, unspecified (principal); I48.19 Other persistent atrial fibrillation; I67.89 Other cerebrovascular disease; R29.6 Repeated falls; F10.10 Alcohol abuse, uncomplicated; E83.39 Other disorders of phosphorus metabolism; Z66 Do not resuscitate; G62.1 Alcoholic polyneuropathy; Z79.82 Long term (current) use of aspirin
CPT/HCPCS: 36415; 70450; 70551; 71045; 80048; 80053; 80162; 81003; 82040; 82607; 83036; 83735; 83880; 84100; 84439; 84443; 84484; 85025; 85610; 85730; 87502; 93005; 93010; 93306; 94640; 94667; 94668; 94760; 97161; 97164; 97166; 97530; 97535; J1650; J3411; J3475; J7030; J7060; J7121; U0002

== ENCOUNTER 2025-03-05 12:50 | Inpatient (IN) | payer MEDICARE, OTHER ==
[~2025-03-05] VITALS: Ht 180.3 cm; Wt 100.6 kg
[~2025-03-05 12:50] MED LIST changes: +ACETAMINOPHEN500 M1 PO; +ASPIRIN81 MG PO
[2025-03-05 13:49] LABS: BASOPHILS 0.4 % (0-2); EOSINOPHILS 0.4 % (0-6); HEMATOCRIT 45.1 % (35.0-50.0); HEMOGLOBIN 15.6 g/dL (12.0-18.0); LYMPHOCYTES 6.6 % (24-44); MCH 30.1 (27-36); MCHC 34.5 g/dl (30-36); MCV 87.3 fl (81-99); MONOCYTES 7.4 % (0-12); NEUTROPHILS 85.2 % (39-80); PLATELET COUNT 143 K/uL (140-440); RBC 5.16 M/ul (4.3-5.7); RDW 21.2 (10.5-15.0)
[2025-03-05 14:08] LABS: ALBUMIN 3.1 g/dL (3.4-5.0); ALBUMIN/GLOBULIN RATIO 0.65 (1.1-2.4); ALKALINE PHOSPHATASE 161 U/L (46-116); ALT (SGPT) 38 U/L (14-59); ANION GAP 11.9 (7-21); AST (SGOT) 41 U/L (15-37); BILIRUBIN, TOTAL 1.1 mg/dL (0.2-1.0); CALCIUM 8.6 mg/dL (8.5-10.1); CARBON DIOXIDE 33 mmol/L (21-32); CHLORIDE 97 mmol/L (98-107); DIGOXIN 0.8 ng/dL (0.9-2.0); GLOMERULAR FILTRATION RATE,EST 79 mL/min (>60); POTASSIUM 3.9 mmol/L (3.5-5.1); PROTEIN, TOTAL 7.9 g/dL (6.4-8.2); UREA NITROGEN 34 mg/dL (7-18)
[2025-03-05 14:25] LABS: LACTIC ACID, BLOOD 2.5 mmol/L (0.4-2.0)
[2025-03-05 14:29] LABS: INR 1.03 (0.80-1.30); PROTIME 12.9 Sec (11.2-14.2)
[2025-03-05] MEDS ORDERED: CEFTRIAXONE SODIUM 1 GM in SODIUM CHLORIDE 0.9% 100 ML IV ONE (15:00)
[2025-03-05] MEDS ORDERED: SODIUM CHLORIDE 0.9% 400 ML IV SCH ×2 (15:45)
[2025-03-05] MEDS ORDERED: ACETAMINOPHEN 325 MG TAB PO PRN (16:45)
[2025-03-05] MEDS ORDERED: SODIUM CHLORIDE 0.9% 1,000 ML IV SCH (16:45)
[2025-03-05] MEDS ORDERED: ondansetron HCL 4 MG/2 ML VIAL IV PRN (16:45)
[2025-03-05 17:33] VITALS: BP 121/94
--- NOTE | 2025-03-05 18:53 | NUR ---
Pt arrived to the floor via stretcher, transferred to room 112 by ED AZAR Johns. Pt is A&O x4, unable to assist with transfer from stretcher to bed. 5 person sheet/board transfer pt from stretcher to bed. 2 RN bedside skin assessment done at this time with AZAR Leslie and AZAR Salcedo. Pt oriented to room and call light. Side rails up x4.
[2025-03-05 18:55] VITALS: BP 121/94
--- NOTE | 2025-03-05 19:15 | NUR ---
3PA FOR BED CHANGE. PATIENT HAD 2 EL LOOSE BOWEL MOVEMENTS. AZAR WILSON COLLECTED A SAMPLE FOR CDIFF TESTING. PRECAUTION CART WAS PLACED IN FRONT OF THE ROOM. BED LINES, CHUCKS, AND BRIEF WERE CHANGED. AZAR BROWNING APPLIED BARRIER CREAM TO PATIENT'S BOTTOM AND GROIN. PATIENT WAS BOOSTED IN BED FOR COMFORT. CALL LIGHT AND PERSONAL ITEMS ARE WITHIN REACH.
--- NOTE | 2025-03-05 19:20 | NUR ---
REPORT RECEIVED FROM AZAR BROWNING. PATIENT RESTING IN BED WATCHING TV. PATIENT WITHOUT NEEDS AT THIS TIME. CALL LIGHT AND PERSONAL BELONGINGS ARE WITHIN REACH.
--- NOTE | 2025-03-05 20:20 | NUR ---
PATIENT RESTING IN BED WITH HOB ELEVATED. PATIENT DENIES ANY NEEDS AT THIS TIME. CALL LIGHT AND PERSONAL BELONGINGS ARE WITHIN REACH.
--- NOTE | 2025-03-05 20:49 | EKG ---
[facility] [address] [place] [address] Signed Atrial fibrillation with premature ventricular or aberrantly conducted complexes Left axis deviation Septal infarct , age undetermined ST \T\ T wave abnormality, consider lateral ischemia Abnormal ECG When compared with ECG of 16-JUL-2021 11:13, premature ventricular complexes are now present Confirmed by Zackery Doran MD () on 03/05/2025 8:49:09 PM Electronically Signed By: ZACKERY DORAN MD 03/05/252048 PATIENT NAME: DIANE BOTELLO Electrocardiogram DATE OF : 50 PHYSICIAN: ZACKERY DORAN MD REPORT #: [id number] REPORT IS CONFIDENTIAL AND NOT TO BE RELEASED WITHOUT AUTHORIZATION
[2025-03-05] MEDS ORDERED: MELATONIN 3 MG TAB PO PRN (21:00)
[2025-03-05 21:09] VITALS: BP 136/69
[2025-03-05 21:12] VITALS: BP 136/69
[2025-03-05] MEDS ORDERED: LORazepam 1 MG TAB PO PRN (21:15)
[2025-03-05] MEDS ORDERED: LORazepam 2 MG/ML VIAL IV/IM PRN (21:15)
--- NOTE | 2025-03-05 21:30 | NUR ---
PATIENT ASSESSMENT COMPLETED. IV FLUSHED WITH 10ML OF NS, DRESSING INTACT. NS INFUSING CONTINUOUS AT 125ML/HR. THIS RN ASSISSTED PATIENT WITH ORAL CARE. WARM BLANKET AND ICE WATER PROVIDED. PATIENT WITHOUT FURTHER NEEDS AT THIS TIME. CALL LIGHT AND PERSONAL BELONGINGS ARE WITHIN REACH.
--- NOTE | 2025-03-05 22:00 | NUR ---
PATIENT SITTING UP IN BED WATCHING TV AND REQUESTING CHEESE STICK. CHEESE STICK PROVIDED, PATIENT WITHOUT FURTHER NEEDS AT THIS TIME. CALL LIGHT AND PERSONAL BELONGINGS ARE WITHIN REACH.
--- NOTE | 2025-03-05 23:48 | NUR ---
THIS RN AND HR MANAGER CHANGED CLEANED PERINIUM, CHANGED BRIEF. APPLIED BARRIER CREAM AND SKIN PROTECTANT TO OPEN EXCORIATIONS ON BUTTOCK AND GROIN. NO OTHER NEEDS, CALL LIGHT IN REACH
[2025-03-06] VITALS (12 sets, daily range): BP systolic 108–151; BP diastolic 56–90
--- NOTE | 2025-03-06 00:30 | NUR ---
PATIENT RESTING IN BED WITH HIS EYES CLOSED. EVEN AND UNLABORED RESPIRATIONS NOTED. CALL LIGHT AND PERSONAL BELONGINGS ARE WITHIN REACH.
--- NOTE | 2025-03-06 01:36 | NUR ---
USER ACCEPTANCE TESTER OBTAINED VITALS AND I&O. PT STATES NO NEEDS AT THIS TIME. CALL LIGHT WITHIN REACH.
--- NOTE | 2025-03-06 02:30 | NUR ---
PATIENT CALLED DUE TO IV BEEPING. THIS RN IN ROOM TO PLACE NEW BAG OF FLUID. PATIENT REPORTING 7/10 PAIN WHEN ASKED BY THIS RN. PATIENT REFUSES TYLENOL AT THIS TIME DUE TO "IT DOESN'T REALLY WORK". PATIENT STATES HE WILL CALL AND LET THIS RN KNOW IF PATIENT DECIDES HE WANTS TO TRY THE TYLENOL. PATIENT WITHOUT FURTHER NEEDS AT THIS TIME. CALL LIGHT AND PERSONAL BELONGINGS ARE WITHIN REACH.
--- NOTE | 2025-03-06 03:47 | NUR ---
PATIENT RESTING IN BED UNABLE TO GO BACK TO SLEEP. PATIENT DENIES ANY NEEDS AT THIS TIME AND HAS REFUSED MELATONIN ALL NIGHT DUE TO "IT DOESN'T HELP". CALL LIGHT AND PERSONAL BELONGINGS ARE WITHIN REACH.
[2025-03-06 05:33] LABS: BASOPHILS 0.5 % (0-2); EOSINOPHILS 1.4 % (0-6); HEMATOCRIT 39.1 % (35.0-50.0); HEMOGLOBIN 13.6 g/dL (12.0-18.0); LYMPHOCYTES 9.4 % (24-44); MCH 30.4 (27-36); MCHC 34.8 g/dl (30-36); MCV 87.2 fl (81-99); MONOCYTES 9.9 % (0-12); NEUTROPHILS 78.8 % (39-80); PLATELET COUNT 123 K/uL (140-440); RBC 4.48 M/ul (4.3-5.7); RDW 21.5 (10.5-15.0)
[2025-03-06 05:55] LABS: ALBUMIN 2.4 g/dL (3.4-5.0); ALBUMIN/GLOBULIN RATIO 0.63 (1.1-2.4); ANION GAP 8.5 (7-21); BILIRUBIN, TOTAL 0.8 mg/dL (0.2-1.0); CALCIUM 7.8 mg/dL (8.5-10.1); CREATININE, SERUM 0.8 mg/dL (0.70-1.30); MAGNESIUM 2.3 mg/dL (1.8-2.4); PHOSPHORUS, INORGANIC 2.3 mg/dL (2.5-4.9); POTASSIUM 3.5 mmol/L (3.5-5.1); PROTEIN, TOTAL 6.2 g/dL (6.4-8.2)
--- NOTE | 2025-03-06 06:00 | NUR ---
PATIENT RESTING IN BED. WINDOW BLINDS OPEN PER PATIENT REQUEST. PATIENT DENIES ANY NEEDS AT THIS TIME. CALL LIGHT AND PERSONAL BELONGINGS ARE WITHIN REACH.
--- NOTE | 2025-03-06 07:25 | NUR ---
report received from bradley rn.
--- NOTE | 2025-03-06 07:50 | NUR ---
ASSESSMENT COMPLETE. PT RESTING IN BED WATCHING TV. NO REQUESTS AT THIS TIME.
[2025-03-06] MEDS ORDERED: THIAMINE HCL 200 MG/2 ML VIAL IV SCH (08:00)
[2025-03-06] MEDS ORDERED: POTASSIUM PHOSPHATE 30 MMOL in DEXTROSE 5% 500 ML IV ONE (08:00)
[2025-03-06] MEDS ORDERED: MULTIVITAMINS THERAPEUTIC 1 EA TAB PO SCH (08:00)
[2025-03-06] MEDS ORDERED: FOLIC ACID 1 MG/0.2 ML ML IV SCH (08:00)
--- NOTE | 2025-03-06 08:50 | NUR ---
MEDS GIVEN ORDERED. PT RESTING IN BED WATCHING TV, CALL LIGHT WITHIN REACH. NO REQUESTS AT THIS TIME.
[2025-03-06] MEDS ORDERED: DIGOXIN 125 MCG TAB PO SCH (09:00)
[2025-03-06] MEDS ORDERED: ENOXAPARIN SODIUM 40 MG/0.4 ML SYR SUB-Q SCH (09:00)
[2025-03-06] MEDS ORDERED: ASPIRIN 81 MG CHEW PO SCH (09:00)
--- NOTE | 2025-03-06 10:01 | NUR ---
UR CLINICAL REVIEW: 2MN JOSE M, MEETS INPT FOR CELLULITIS IV ANTIBIOTICS, WOUND NURSE CONSULT, IV FLUIDS, PT/OT EVALS MEDICARE INPT 03/05/25 @ 1640 ORDER MATCHES REG NO AUTH REQUIRED PER MEDICARE RULES DC TO SNF IN 1-2 DAYS.
--- NOTE | 2025-03-06 10:07 | NUR ---
PATIENT IS IN BED AT THIS TIME. DEMURRAGE WORKER CHARTED VITALS AND I&O'S, BRUSHED HIS HAIR AND TEETH, PATIENT HASNT VOIDED YET, CALL LIGHT WITH IN REACH AND NOTHING ELSE NEEDED AT THIS TIME.
--- NOTE | 2025-03-06 10:38 | NUR ---
MED REC COMPLETE
--- NOTE | 2025-03-06 11:01 | NUR ---
PT SITTING IN BED WATCHING TV. NO REQUESTS AT THIS TIME. CALL LIGHT WITHIN REACH.
--- NOTE | 2025-03-06 11:53 | NUR ---
Sap Abap Programmer Chito arrived to meet patient who wanted to talk to a school leader. Patient had some discouragement being 'back' in the hospital and wanted prayers for encouragement and healing. Had discussions regarding the patient's senior living history and about his chai. 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 Offered prayers for the patient's healing and continuance in helping relationships. Patient expressed encouragement from the visit.
[2025-03-06] MEDS ORDERED: PHARMACY RENAL DOSE ADJUSTMENT 1 DOSE MISC PO SCH (12:00)
--- NOTE | 2025-03-06 12:15 | NUR ---
Spoke with Monty. He would like to return to [facility]. He states his cgs son and she has been gone. He has become weaker and has not been able to get out of his chair. He would like to return to [facility] for therapy. He cont. with skin wounds and cellulities. He has a ramp, walker x2 and a wc. He denies financial or safety concerns. Will need a 3 night IP stay. I will fax the chart to Desmond at [facility].
--- NOTE | 2025-03-06 12:40 | NUR ---
GUTIERREZ CARE PROVIDED AFTER PT USED URINAL TO VOID 200 (PLUS BRIEF SLIGHTLY WET). PUREWICK APPLIED. GROIN AREA TO BACK OF LEGS BILATERALLY RED AND EXCORIATED. BARRIER CREAM APPLIED TO GROIN AREA AND BUTTOCKS. BRIEF INTACT. PT REPOSITIONED WITH PILLOW UNDER LEGS TO FLOAT HEELS AND PILLOW UNDER HIS L) SIDE. CALL LIGHT WITHIN REACH.
--- NOTE | 2025-03-06 12:45 | NUR ---
DR DORAN IN TO SEE PT AND DISCUSS PLAN OF CARE.
--- NOTE | 2025-03-06 12:50 | NUR ---
PT DRANK MAX ENSURE PROTEIN.
--- NOTE | 2025-03-06 13:11 | NUR ---
PATIENT WAS IN BED AT THIS TIME, RN VALERIE AND I PUT A PUREWICK ON PATIENT, CHANGED BREIF AND MATHIEU. SUPERVISOR SPINNING CHARTED VITALS AND I&O'S, AND GOT FRESH ICE WATER. CALLL LIGHT WITH IN REACH AND NOTHING ELSE NEEDED AT THIS TIME.
[2025-03-06] MEDS ORDERED: CEFTRIAXONE SODIUM 2 GM in SODIUM CHLORIDE 0.9% 100 ML IV SCH (16:00)
--- NOTE | 2025-03-06 16:25 | NUR ---
PT RESTING IN BED, NO REQUESTS AT THIS TIME. CALLL LIGHT WITHIN REACH.
--- NOTE | 2025-03-06 17:40 | NUR ---
WOUND CARE NURSES IN TO SEE PT.
--- NOTE | 2025-03-06 17:48 | NUR ---
THIS DOT ETCHER ATTEMPTED TO CALL [facility] TO GET WOUND CARE ORDERS FAXED OVER. [facility] STATED THAT "WE DO NOT HAVE ANY RECORDS OF THE PATIENT." AZAR VALENCIA AND AZAR PADILLA NOTIFIED.
--- NOTE | 2025-03-06 17:53 | NUR ---
PT SITTING UP IN BED. BOLIVAR CAMARA IN ROOM ASSISTING PT WITH EATING DINNER.
--- NOTE | 2025-03-06 17:54 | NUR ---
JASSON 1730: THIS RN TO SEE PT FOR A WOUND CONSULT OF THE GROIN/PERIAREA, POSTERIOR THIGHS, AND BILATERAL BUTTOCK/GLUTEAL CLEFT. PT WAS ADMITTED FOR CELLULITIS OF THE BUTTOCK AFTER BEING HOME WITH WEAKNESS UNABLE TO GET UP TO GET THE BATHROOM, RESULTING IN HIM SOILING HIMSELF WITH URINE AND FECES FOR AN UNDETERMINED AMOUNT OF TIME. YESTERDAY [facility] CAME TO CARE FOR HIS BLE AND ENCOURAGED HIM TO BE TRANSPORTED TO [facility] ER VIA AMBULANCE. THIS RN REVIEWS PICTURES FROM HIS ADMISSION YESTERDAY, THE BILATERAL BUTTOCK AND POSTERIOR THIGHS WERE BRIGHT RED. HIS BILATERAL GROIN WERE ALSO BRIGHT RED AND WEEPY. TODAY, THERE IS A VAST IMPROVEMENT IN THE PRESENTATION OF HIS SKIN. THERE ARE NO BRIGHT RED AREAS. HE HAS DENUDED AREAS TO BILATERAL BUTTOCK THAT ARE STILL WEEPING. THE POSTERIOR/LATERAL THIGHS BILATERALLY ARE NO LONGER RED, BUT VERY DRY WITH SCABBED AREAS. THE BILATERAL GROIN HAVE A GOOD AMOUNT OF BARRIER CREAM IN PLACE AND THIS RN IS UNABLE TO VISUALIZE THE SKIN - IT IS NOT APPROPRIATE TO CLEAN ALL BARRIER CREAM AWAY AT THIS TIME. BARRIER CREAM IS APPLIED TO BILATERAL BUTTOCKS. LOTION IS APPLIED TO THE DRY/SCABBED AREAS. HE HAD BILATERAL UNNA BOOTS APPLIED YESTERDAY TO HIS LOWER EXTREMITIES. THESE ARE NOT TAKEN OFF FOR ASSESSMENT DUE TO JUST BEING PUT ON. JASSON 175: CONSULT COMPLETE. ORDERS TO FOLLOW.
--- NOTE | 2025-03-06 18:16 | NUR ---
PATIENT IS IN BED AT THIS TIME, BATCH FREEZER OPERATOR ASSISTED IN FEEDING DINNER TO PATIENT, CHARTED VITALS AND I&O'S, AND REPOSITION PATIENT. BREIF IS DRY, CALL LIGHT WITH IN REACH AND NOTHING ELSE NEEDED AT THIS TIME.
--- NOTE | 2025-03-06 18:20 | NUR ---
PT RESTING IN BED VISITING WITH FRIENDS AND WATCHING TV. NO REQUESTS AT THIS TIME. CALL LIGHT WITHIN REACH.
--- NOTE | 2025-03-06 18:34 | NUR ---
PT SITTING UP IN BED, STATES HE DIDN'T LIKE DINNER. ENSURE GIVEN. CALL LIGHT WITHIN REACH.
--- NOTE | 2025-03-06 19:05 | NUR ---
REPORT RECEIVED FROM AZAR PADILLA. PATIENT RESTING IN BED AND DENIES ANY NEEDS AT THIS TIME. CALL LIGHT AND PERSONAL BELONGINGS ARE WITHIN REACH.
--- NOTE | 2025-03-06 20:00 | NUR ---
PATIENT MEDICATED PER EMAR. VITAL SIGNS OBTAINED. THIS RN ASSISTED PATIENT WITH BRUSHING HIS TEETH. NEW BAG OF IV FLUIDS INFUSING. PATIENT WITHOUT FURTHER NEEDS AT THIS TIME. CALL LIGHT AND PERSONAL BELONGINGS ARE WITHIN REACH. VITAL SIGNS STABLE.
--- NOTE | 2025-03-06 20:28 | NUR ---
HOGSHEAD PRESS OPERATOR OBTAINED VITALS AND I&O. PUREWICK CANNISTER EMPTIED. PT STATES NO NEEDS AT THIS TIME. CALL LIGHT WITHIN REACH.
--- NOTE | 2025-03-06 21:10 | NUR ---
PATIENT ASSESSMENT COMPLETED. PATIENT IS ALERT AND ORIENTED X4. PATIENT IS A 2-3 PERSON MAX ASSIST/GRACE LIFT. PATIENT ROLLED BY THIS RN WITH HELP FROM HOA FAGAN; FRESH LINEN PROVIDED, OLD BARRIER CREAM CLEANED OFF PER WOUND CARE INSTRUCTIONS WITH NEW CREAM AND LOTION APPLIED TO PATIENT BILATERAL GLUTES AND TO BACK OF PATIENT THIGHS. NEW PUREWICK PLACED AT THIS TIME. BARRIER WIPES USED ON PATIENT SKIN. PATIENT ALSO GIVEN PARTIAL BED BATH WITH BARRIER WIPES. PATIENT WITHOUT FURTHER NEEDS AT THIS TIME. CALL LIGHT AND PERSONAL BELONGINGS ARE WITHIN REACH.
--- NOTE | 2025-03-06 22:30 | NUR ---
PATIENT RESTING IN BED WITH EYES OPENED. PATIENT DENIES ANY NEEDS AT THIS TIME. CALL LIGHT AND PERSONAL BELONGINGS ARE WITHIN REACH.
[2025-03-07] VITALS (10 sets, daily range): BP systolic 106–147; BP diastolic 59–74
--- NOTE | 2025-03-07 00:05 | NUR ---
PATIENT RESTING IN BED WITH HIS EYES CLOSED. EVEN AND UNLABORED RESPIRATIONS NOTED. CALL LIGHT AND PERSONAL BELONGINGS ARE WITHIN REACH.
--- NOTE | 2025-03-07 01:04 | NUR ---
THIS RN AND HOA FAGAN IN ROOM TO REPOSITION PATIENT. FRESH ICE WATER PROVIDED. PATIENT WITHOUT FURTHER NEEDS AT THIS TIME. CALL LIGHT AND PERSONAL BELONGINGS ARE WITHIN REACH.
--- NOTE | 2025-03-07 02:34 | NUR ---
PATIENT RESTING IN BED WITH EYES CLOSED. EVEN AND UNLABORED RESPIRATIONS NOTED. PATIENT FOCUS ASSESSMENT COMPLETED. PATIENT IS ON ROOM AIR AT THIS TIME. LUNG SOUNDS ARE CLEAR IN BILATERAL UPPER LOBES, DIMINISHED IN LEFT LOWER LOBE, AND WITH DIMINISHED CRACKLES IN RIGHT LOWER LOBE. CALL LIGHT AND PERSONAL BELONGINGS ARE WITHIN REACH.
--- NOTE | 2025-03-07 03:41 | NUR ---
PATIENT RESTING IN BED WITH HIS EYES CLOSED. EVEN AND UNLABORED RESPIRATIONS NOTED. CALL LIGHT AND PERSONAL BELONGINGS ARE WITHIN REACH.
--- NOTE | 2025-03-07 05:09 | NUR ---
PATIENT RESTING IN BED, AWAKE. THIS RN REPOSITIONED PATIENT TO COMFORT. VITAL SIGNS TAKEN AND ARE STABLE. INTAKE AND OUTPUT DOCUMENTED. PATIENT WITHOUT FURTHER NEEDS AT THIS TIME. CALL LIGHT AND PERSONAL BELONGINGS ARE WITHIN REACH.
[2025-03-07 05:33] LABS: BASOPHILS 0.5 % (0-2); EOSINOPHILS 3.3 % (0-6); HEMATOCRIT 38.5 % (35.0-50.0); HEMOGLOBIN 13.3 g/dL (12.0-18.0); LYMPHOCYTES 11.7 % (24-44); MCH 30.3 (27-36); MCHC 34.6 g/dl (30-36); MCV 87.8 fl (81-99); NEUTROPHILS 75.5 % (39-80); PLATELET COUNT 118 K/uL (140-440); RBC 4.38 M/ul (4.3-5.7); RDW 21.9 (10.5-15.0)
[2025-03-07 05:51] LABS: ALBUMIN 2.2 g/dL (3.4-5.0); ALBUMIN/GLOBULIN RATIO 0.58 (1.1-2.4); ANION GAP 8.4 (7-21); BILIRUBIN, TOTAL 0.6 mg/dL (0.2-1.0); BUN/CREATININE RATIO 17.44 (6.0-28.6); CALCIUM 7.9 mg/dL (8.5-10.1); CREATININE, SERUM 0.86 mg/dL (0.70-1.30); POTASSIUM 3.4 mmol/L (3.5-5.1)
--- NOTE | 2025-03-07 07:15 | NUR ---
REPORT RECEIVED FROM AZAR VILLA. PATIENT IS AWAKE AND ALERT IN BED. HOA LUTZ IS PRESENT IN ROOM ASSISTING PATIENT WITH CLEANING UP FOR BREAKFAST. PATIENT HAS NO REQUESTS, CALL LIGHT AND PERSONAL BELONGINGS IN REACH.
--- NOTE | 2025-03-07 07:25 | NUR ---
PATIENT IS IN BED AT THIS TIME, HOA GOT FRESH ICE WATER FOR PATIENT, A WARM WASH CLOTH TO WASH HIS FACE, AND ASSISTED IN BRUSHING HIS TEETH. PATIENT WOULD LIKE TO GET UP IN HIS CHAIR FOR BREAKFAST, HOA VILLATORO AND I ARE ASSISTING TO THE CHAIR WITH GRACE. BRUSHED PATIENTS HAIR AND GOT A WARM BLANKET. CALL LIGHT WITH IN REACH AND NOTHING ELSE NEEDED AT THIS TIME.
[2025-03-07] MEDS ORDERED: POTASSIUM CHLORIDE 10 MEQ TABCR PO ONE (07:45)
--- NOTE | 2025-03-07 09:53 | NUR ---
ASSESSMENT COMPLETE. PATIENT IS RESTING IN RECLINER WITH BLE ELEVATED. NO REQUESTS AT THIS TIME, CALL LIGHT AND PERSONAL BELONGINGS IN REACH.
[2025-03-07] MEDS ORDERED: POLYETHYLENE GLYCOL 3350 1 PACKET PO SCH (09:59)
--- NOTE | 2025-03-07 10:03 | NUR ---
PATIENT IS IN HIS CHAIR AT THIS TIME, BICYCLE COURIER CHARTED VITALS AND I&O'S, CALL LIGHT WIHT IN REACH AND NOTHING ELSE NEEDED AT THIS TIME.
--- NOTE | 2025-03-07 12:31 | NUR ---
PATIENT WAS IN HIS CHAIR AT THIS TIME, HOSPITAL LIBRARIAN GOT HIM SET UP FOR LUNCH AND ASSISTED IN FEEDING. CALL LIGHT WITH IN REACH AND NOTHING ELSE NEEDED AT THIS TIME.
--- NOTE | 2025-03-07 13:21 | NUR ---
PATIENT IS IN HIS CHAIR AT THIS TIME, BOBBIN HAULER CHARTED VITALS AND I&O'S, PATIENT HAS NOT VOIDED YET SINCE I HAVE BEEN HERE, RN NOTIFIED. BOBBIN HAULER OFFERED FRESH ICE WATER AND A BED BATH PATIENT HAS REFUSED BOTH. CALL LIGHT IH IN REACH AND NOTHING ELSE NEEDED AT THIS TIME.
--- NOTE | 2025-03-07 14:46 | NUR ---
PATIENT TRANSFERED BY THIS RN AND HOA GUTIERREZ VIA [facility]. PATIENT TOLERATES WELL. BED BATH PROVIDED WITH HOA GUTIERREZ. SEE WOUND CARE ASSESSMENTS FOR WOUND CARE. PATIENT HAS PUREWICK IN PLACE AND VOIDS CLEAR, YELLOW URINE INTO SUCTION CANNISTER. RESTING IN BED WITH HOB ELEVATED WATCHING TELEVISION. NO OTHER REQUESTS. CALL LIGHT AND PERSONAL BELONGINGS IN REACH.
--- NOTE | 2025-03-07 18:32 | NUR ---
PATIENT IN BED AT THIS TIME, PASSENGER CAR INSPECTOR CHARTED VITALS AND I&O'S, RAFAEL;L LIGHT WITH IN REACH AND NOTHING ELSE NEEDED AT THIS TIME.
--- NOTE | 2025-03-07 19:10 | NUR ---
REPORT RECEIVED FROM AZAR LEOS. PATIENT RESTING IN BED TALKING ON THE PHONE. PATIENT DENIES ANY NEEDS AT THIS TIME. CALL LIGHT AND PERSONAL BELONGINGS ARE WITHIN REACH.
--- NOTE | 2025-03-07 20:47 | NUR ---
PATIENT ASSESSMENT COMPLETED. PATIENT IS ALERT AND ORIENTED X4, PATIENT IS A MAX ASSIST WITH TRANSFERS. PATIENT RESTING ON HIS LEFT SIDE IN BED WITH HIS LEGS ELEVATED. PATIENT REPORTS HAVING PAIN, BUT DENIES WANTING ANY PAIN MEDICATIONS. PATIENT HEART TONES ARE IRREGULAR DUE TO PATIENT HAVING A MURMUR. PATIENT REPORTS NUMBNESS/TINGLING IN BILATERAL UPPER EXTREMETIES AND BILATERAL LOWER EXTREMETIES, BUT PATIENT STATES IT IS CHRONIC. PATIENT CAPILARY REFILL IS <3 SECONDS IN BILATERAL UPPER EXTREMETIES AND BILATERAL LOWER EXTREMETIES. PATIENT IS WITH 1+ NON PITTING EDEMA TO PATIENT RIGHT LOWER EXTREMETY AND WITH TRACE EDEMA TO PATIENT LEFT LOWER EXTREMETY. PATIENT NOTED TO HAVE INCREASE WORK OF BREATHING. PATIENT STATES "THE LAST HOUR OR TWO I'VE BEEN FEELING SHORT OF BREATH" WHEN ASKED BY THIS RN IF PATIENT FEELS LIKE HE IS HAVING A HARD TIME BREATHING. PATIENT SATURATION NOTED TO BE 95% ON ROOM AIR, LUNG SOUNDS ARE CLEAR IN BILATERAL UPPER LOBES AND WITH CLEAR/SLIGHTLY DIMINISHED IN THE BILATERAL BASES. RT NOTIFIED AND IN ROOM TO EVALUATE PATIENT. PATIENT IS STABLE, RT STATES SHE WILL BE BACK TO DO A FULL EVALUATION OF PATIENT ONCE SHE IS FINISHED WITH THE DIFFERENT PATIENT SHE IS WITH. PATIENT IS ON A REGULAR DIET WITH ACTIVE BOWEL TONES. LAST BM WAS 03/05/25. WOUND CARE NOT COMPLETED AT THIS TIME DUE TO PATIENT'S INCREASE WORK OF BREATHING AND PATIENT REQUESTING TO "NOT ROLL RIGHT NOW, I'M JUST OUT OF BREATH". PATIENT STATES HIS PAIN IS 7/10, BUT "NOTHING WORKS" PATIENT AGREES TO NOTIFY RN IF PATIENT WISHES TO TAKE PRN TYLENOL. PATIENT HAS NEW IV PLACED IN HIS LEFT FOREARM BY THE DAYSHIFT RN. IV FLUSHED WITH 10ML OF NS, DRESSING INTACT. NS INFUSING CONTINUOUS AT 100ML/HR. CPOX PLACED AT BEDSIDE TO MONITOR PATIENT OXYGEN LEVEL THROUGHOUT THE NIGHT. PATIENT WITHOUT FURTHER NEEDS AT THIS TIME. CALL LIGHT AND PERSONAL BELONGINGS ARE WITHIN REACH.
[2025-03-07] MEDS ORDERED: ALBUTEROL/IPRATROPIUM 3 ML NEB ONE (21:19)
--- NOTE | 2025-03-07 21:20 | NUR ---
RT AT BEDSIDE EVALUATING PATIENT AND PROVIDING BREATHING TREATMENT. PATIENT WITHOUT FURTHER NEEDS AT THIS TIME. CALL LIGHT AND PERSONAL BELONGINGS ARE WTIHIN REACH. CPOX AT BEDSIDE.
--- NOTE | 2025-03-07 22:45 | NUR ---
PATIENT RESTING IN BED WATCHING TV. PATIENT STATES HE "FEELS LIKE I NEED TO HAVE A POOP". THIS RN OFFERED TO PLACE PATIENT ON BED BRAUN AT THIS TIME, BUT PATIENT STATES HE WANTS TO "WAIT UNTIL I FEEL LIKE I CAN GO FOR SURE SO I DON'T HAVE TO ROLL ALL THE TIME". PATIENT AGREED TO CALL THIS RN WHEN HE FEELS LIKE HE IS READY TO BE PLACED ON BED BRAUN. PATIENT WITHOUT FURTHER NEEDS AT THIS TIME. CALL LIGHT AND PERSONAL BELONGINGS ARE WITHIN REACH.
--- NOTE | 2025-03-07 23:52 | NUR ---
PATIENT HAS NOT CALLED FOR BED BRAUN, THIS RN IN TO CHECK ON PATIENT. PATIENT RESTING IN BED WITH HIS EYES CLOSED. EVEN AND IMPROVED WORK OF BREATHING NOTED. PATIENT IS 98% ON ROOM AIR, CPOX AT BEDSIDE. CALL LIGHT AND PERSONAL BELONGINGS ARE WITHIN REACH.
[2025-03-08] VITALS (9 sets, daily range): BP systolic 116–147; BP diastolic 65–92
--- NOTE | 2025-03-08 02:00 | NUR ---
PATIENT RESTING IN BED WITH EYES CLOSED. EVEN AND UNLABORED RESPIRATIONS NOTED. CALL LIGHT AND PERSONAL BELONGINGS ARE WITHIN REACH. CPOX AT BEDSIDE.
--- NOTE | 2025-03-08 04:05 | NUR ---
PATIENT CALLED FOR BED BRAUN. THIS RN AND DILEEP IN ROOM TO PLACE PATIENT ON BED BRAUN. PATIENT REQUESTING "A FEW MINUTES". CALL LIGHT AND PERSONAL BELONGINGS ARE WITHIN REACH.
[2025-03-08 05:09] LABS: BASOPHILS 0.4 % (0-2); EOSINOPHILS 4.3 % (0-6); HEMATOCRIT 38.9 % (35.0-50.0); HEMOGLOBIN 13.4 g/dL (12.0-18.0); LYMPHOCYTES 11.3 % (24-44); MCH 30.5 (27-36); MCHC 34.5 g/dl (30-36); MCV 88.3 fl (81-99); MONOCYTES 11.3 % (0-12); NEUTROPHILS 72.7 % (39-80); PLATELET COUNT 120 K/uL (140-440); RBC 4.41 M/ul (4.3-5.7); RDW 21.7 (10.5-15.0)
[2025-03-08 05:28] LABS: ALBUMIN 2.3 g/dL (3.4-5.0); ALBUMIN/GLOBULIN RATIO 0.61 (1.1-2.4); ANION GAP 9.7 (7-21); BILIRUBIN, TOTAL 0.5 mg/dL (0.2-1.0); BUN/CREATININE RATIO 12.79 (6.0-28.6); CREATININE, SERUM 0.86 mg/dL (0.70-1.30); POTASSIUM 3.7 mmol/L (3.5-5.1); PROTEIN, TOTAL 6.1 g/dL (6.4-8.2)
--- NOTE | 2025-03-08 07:35 | NUR ---
PT RESTING IN BED AWAKE AND INTERACTIVE AT TIME OF SHIFT REPORT. AGREES HE IS COMFORTABLE AND WITHOUT NEED. CALL LIGHT IN REACH FRESH FLUIDS AT BEDSIDE.
[2025-03-08] MEDS ORDERED: FOLIC ACID 1 MG TAB PO SCH (08:00)
[2025-03-08] MEDS ORDERED: THIAMINE HCL 100 MG TAB PO SCH (08:00)
[2025-03-08] MEDS ORDERED: ALBUTEROL/IPRATROPIUM 3 ML NEB INH SCH ×2 (08:00)
--- NOTE | 2025-03-08 08:16 | NUR ---
PT SITTING UP IN BED WITH MORNING MEAL STAFF ASSIST TO CUT UP DENIES OTHER NEEDS
--- NOTE | 2025-03-08 08:20 | NUR ---
PATIENT SITTING UP IN BED EATING BREAKFAST. PATIENT DOING WELL FEEDING HIMSELF. CALL LIGHT IN REACH. NO FURTHER NEEDS AT THIS TIME.
--- NOTE | 2025-03-08 09:00 | NUR ---
DR DORAN NOTIFIED OF INCREASED SOB AND SUSPICION PT IS FLUID OVERLOADED
--- NOTE | 2025-03-08 10:53 | NUR ---
PT TO THE BED BRAUN DECLINING ROMERO STEADY LIFT UNABLE TO MOVE HIS BOWELS. SKIN CARE COMPLETE PT HOYERED TO THE RECLINER. BREAKFAST WAS WELL TOLERATED PT DENIES FURTHER NEEDS CALL LIGHT IN HAND
--- NOTE | 2025-03-08 10:54 | NUR ---
IN TO DO VITALS AND I&O'S. PATIENT HOYERED TO CHAIR, 2PA. RN IN ROOM AT THIS TIME. LINENS CHANGED. CALL LIGHT IN REACH. NO FURTHER NEEDS AT THIS TIME.
[2025-03-08] MEDS ORDERED: FUROSEMIDE 40 MG/4 ML VIAL IV ONE (11:45)
--- NOTE | 2025-03-08 12:21 | NUR ---
ORDERS FOR LASIX RECEIVED. PT WORKING WITH P/T SHE USES SIT TO STAND. NOT WELL TOLERATED BY PT AT ALL HE IS VERY SOB AND HAS INCREASED TREMORS. P/T ENDS LASIX ADMINISTERED. NOON MEAL SERVED
--- NOTE | 2025-03-08 14:13 | NUR ---
PATIENT SITTING UP IN CHAIR AT THIS TIME. VITALS AND I&O'S DONE AND CHARTED. CALL LIGHT IN REACH. NO FRUTHER NEEDS AT THIS TIME.
--- NOTE | 2025-03-08 14:18 | NUR ---
PT SITTING UP IN THE CHAIR HAS VOIDED 1600 SINCE LASIX ADMINISTERED. HE REPORTS HIS BREATHING IS MUCH IMPROVED ALREADY. CALL LIGHT IN HAND DENIES NEEDS
--- NOTE | 2025-03-08 15:22 | NUR ---
PT RETURNED TO BED VIA GRACE. RESTING IN BED WATCHING TV
[2025-03-08] MEDS ORDERED: AZITHROMYCIN 500 MG in DEXTROSE 5% 250 ML IV SCH (16:00)
--- NOTE | 2025-03-08 17:51 | NUR ---
PT SITTING UP IN BED EATING EVENING MEAL DENIES NEEDS OF
--- NOTE | 2025-03-08 18:40 | NUR ---
PATIENT SITTING UP IN BED WATCHING TV. VITALS AND I&O'S DONE AND CHARTED. CALL LIGHT IN REACH. NO FURTHER NEEDS AT THIS TIME.
--- NOTE | 2025-03-08 19:10 | NUR ---
REPORT RECEIVED FROM AZAR MARKS. PATIENT SITTING UP IN BED WATCHING TV. PATIENT WITHOUT FURTHER NEEDS AT THIS TIME. CALL LIGHT AND PERSONAL BELONGINGS ARE WITHIN REACH.
--- NOTE | 2025-03-08 20:32 | NUR ---
PATIENT MEDICATED PER EMAR. PATIENT SITTING UP IN BED. THIS RN ASSISTED PATIENT WITH ORAL CARE. PATIENT ASSESSMENT COMPLETED. IV FLUSHES WITH 10ML OF NS, DRESSING INTACT. IV IS SALINE LOCKED. VITAL SIGNS TAKEN AND ARE STABLE. PATIENT WITHOUT FURTHER NEEDS AT THIS TIME. CALL LIGHT AND PERSONAL BELONGINGS ARE WITHIN REACH.
--- NOTE | 2025-03-08 22:29 | NUR ---
PATIENT RESTING IN BED ATTEMPTING TO GO TO SLEEP. PATIENT WITHOUT ANY NEEDS AT THIS TIME. CALL LIGHT AND PERSONAL BELONGINGS ARE WITHIN REACH.
--- NOTE | 2025-03-08 23:45 | NUR ---
PATIENT RESTING IN BED, AWAKE. PATIENT DENIES ANY NEEDS AT THIS TIME. CALL LIGHT AND PERSONAL BELONGINGS ARE WITHIN REACH.
[2025-03-09] VITALS (8 sets, daily range): BP systolic 119–145; BP diastolic 57–89
--- NOTE | 2025-03-09 00:20 | NUR ---
PATIENT CALLED FOR WARM BLANKETS. THIS RN IN ROOM TO PROVIDE BLANKETS. PATIENT REQUEST FOR BREAKFAST WRITTEN DOWN AT THIS TIME TO CALL INTO DIETARY IN THE MORNING. PATIENT WITHOUT FURTHER NEEDS AT THIS TIME. CALL LIGHT AND PERSONAL BELONGINGS ARE WITHIN REACH.
--- NOTE | 2025-03-09 01:45 | NUR ---
PATIENT CALLED AT THIS TIME TO GET REPOSITIONED. THIS RN AND HOA DONG IN ROOM TO REPOSITION PATIENT. WHEN PATIENT WAS ROLLED, THIS RN NOTED PATIENT LINEN TO BE WET. FULL BED CHANGE COMPLETED AT THIS TIME. WOUND CARE COMPLETED. FRESH PUREWICK AND BRIEF APPLIED. PATIENT POSITIONED TO COMFORT. PATIENT WITHOUT FURTHER NEEDS AT THIS TIME. CALL LIGHT AND PERSONAL BELONGINGS ARE WITHIN REACH.
--- NOTE | 2025-03-09 03:40 | NUR ---
PATIENT RESTING IN BED ON HIS RIGHT SIDE WITH HIS EYES CLOSED. EVEN AND UNLABORED RESPIRATIONS NOTED. CALL LIGHT AND PERSONAL BELONGINGS ARE WITHIN REACH.
--- NOTE | 2025-03-09 05:00 | NUR ---
PATIENT CALLED TO BE REPOSITIONED. HOA HAIRSTON AND THIS RN IN ROOM TO REPOSITION PATIENT. HOA HAIRSTON OBTAINING VITAL SIGNS, INTAKE AND OUTPUT.
[2025-03-09 05:15] LABS: BASOPHILS 0.6 % (0-2); EOSINOPHILS 4.6 % (0-6); HEMOGLOBIN 13.6 g/dL (12.0-18.0); LYMPHOCYTES 13.6 % (24-44); MCH 30.4 (27-36); MCHC 34.8 g/dl (30-36); MCV 87.5 fl (81-99); MONOCYTES 13.4 % (0-12); NEUTROPHILS 67.8 % (39-80); PLATELET COUNT 143 K/uL (140-440); RBC 4.46 M/ul (4.3-5.7); RDW 21.6 (10.5-15.0)
[2025-03-09 05:37] LABS: ALBUMIN 2.4 g/dL (3.4-5.0); ALBUMIN/GLOBULIN RATIO 0.59 (1.1-2.4); ANION GAP 12.5 (7-21); BILIRUBIN, TOTAL 0.7 mg/dL (0.2-1.0); BUN/CREATININE RATIO 14.28 (6.0-28.6); CALCIUM 8.1 mg/dL (8.5-10.1); CREATININE, SERUM 0.98 mg/dL (0.70-1.30); POTASSIUM 3.5 mmol/L (3.5-5.1); PROTEIN, TOTAL 6.5 g/dL (6.4-8.2)
--- NOTE | 2025-03-09 07:23 | NUR ---
PT RESTING EYES CLOSED AT TIME OF SHIFT REPORT, LEFT UNDISTURBED. AWAKE NOW SITTING UP IN BED. PT REPORTS FEELING "SHIT FACED" AT TIME OF SHIFT REPORT YESTERDAY. STATES "NO REALLY! I WAS" LABS ARE UNREMARKABLE NO PAIN MEDS OR OTHER MEDS ADMINISTERED THAT WOULD CAUSE THIS. PT DID HAVE NEW ABX YESTERDAY HIS STATEMENTS REPORTED TO HOSPITALIST. CALL LIGHT AND NEEDED ITEMS IN REACH
--- NOTE | 2025-03-09 08:49 | NUR ---
PATIENT IN BED AT THIS TIME. SEARCH ENGINE OPTIMIZATION MANAGER CHARTED HOURLY ROUNDS. CALL LIGHT WITHIN REACH, NO FURTHER NEEDS AT THIS TIME.
--- NOTE | 2025-03-09 09:07 | NUR ---
PT COMPLETES MORNING MEAL REQUESTS BEDPAN AGREES TO CALL WHEN HE IS FINISHED
--- NOTE | 2025-03-09 09:30 | NUR ---
Spoke with Monty. He is complaining of pain in his l side and is wanting to speak with the Dr. He would like to go to [facility] if they have a bed open this week. I called Desmond and she does have a bed and would be willing to take this pt today at 1300. I returned and updated Dr. Potts and let him know Monty would like to see him. He does not want to dc today until he has spoken with Dr. Greg renee.
--- NOTE | 2025-03-09 09:44 | NUR ---
Spoke with Monty. Updated I talked with Desmond this am and she is reviewing his chart for placement. I gave him a list of assisted livings as he was stating he wanted to move when he leaves the SNFs.
--- NOTE | 2025-03-09 09:52 | NUR ---
PATIENT IN BED AT THIS TIME. LINUX NETWORK SYSTEMS ADMINISTRATOR CHARTED VITALS AND I&O'S. CALL LIGHT WITHIN REACH, NO FURTHER NEEDS AT THIS TIME.
--- NOTE | 2025-03-09 10:30 | NUR ---
PT CONTINUES IN BED AT THIS TIME DECLINES OFFER OF UP TO CHAIR STATING HE WILL WAIT FOR P/T.
--- NOTE | 2025-03-09 11:30 | NUR ---
Returned and updated Dr. Monty will visit with him and he does not have to leave until everything is settled. I was later notified by Mike Escamilla. Pt will not dc until tomorrow. I notified [facility]. They would like pt to dc at 10:00. I scheduled the wc van for 10 and they will stop and order picker/assembler a wc from [facility] to transport Monty.
--- NOTE | 2025-03-09 11:51 | NUR ---
D/C HAND CLIPPER IN TO COORDINATE PLANS FOR DC ALL QUESTIONS ANSWERED
--- NOTE | 2025-03-09 11:55 | NUR ---
DR RAPHAEL MEETS WITH PT FOR ASSESSMENT ANSWERS QUESTIONS AND DISCUSSES PLAQNS FOR DC. P/T IN A SHORT TIME LATER TO WORK WITH PT.
[2025-03-09] MEDS ORDERED: FUROSEMIDE 40 MG TAB PO SCH (11:56)
--- NOTE | 2025-03-09 12:34 | NUR ---
P/T WELL TOLERATED TODAY PT IS UP IN THE CHAIR WITH NOON MEAL AGREES HE HAS EVERYTHING HE NEEDS CALL LIGHT IS IN HIS LAP
--- NOTE | 2025-03-09 13:00 | NUR ---
PATIENT IN CHAIR AT THIS TIME. THIS PERIODONTAL ASSISTANT CHERTED VITALS AND I&O'S. CALL LIGHT WITHIN REACH, NO FURTHER NEEDS AT THIS TIME.
--- NOTE | 2025-03-09 13:53 | NUR ---
VERBAL REPORT RECEIVED FROM AZAR MARKS. PT RESTS IN RECLINER, AWAKE AND ALERT, CALL LIGHT IN REACH. PT DENIES ANY NEEDS AT THIS TIME.
--- NOTE | 2025-03-09 14:17 | NUR ---
PT NOT AVAILABLE FOR VISIT. PROVIDED PRAYER.
--- NOTE | 2025-03-09 15:16 | NUR ---
PATIENT IN BED AT THIS TIME. THIS LINE DANCER AND RN STUDENT TRANSFERED PATIENT TO BED FROM CHAIR. CALL LIGHT WITHIN REACH, NO FURTHER NEEDS.
--- NOTE | 2025-03-09 16:22 | NUR ---
PT RESTS IN BED, AWAKE AND ALERT. DRESSINGS TO BLE INTACT. CIRCULATION TO BLE INTACT, MOTION WEAK, CHRONIC TINGLING AND NUMBNESS PRESENT PER PATIENT REPORT. PUREWICK IN PLACE, DRAINS CLEAR YELLOW URINE IN SUCTION CANISTER. CALL LIGHT IN REACH. NO REQUESTS AT THIS TIME.
--- NOTE | 2025-03-09 17:48 | NUR ---
PATIENT IN BED AT THIS TIME. CAT SCAN TECH CHARTED VITALS AND I&O'S. CALL LIGHT WITHIN REACH, NO FURTHER NEEDS AT THIS TIME.
--- NOTE | 2025-03-09 19:05 | NUR ---
REPORT RECEIVED FROM AZAR WILSON. PATIENT RESTING IN BED TALKING ON THE PHONE. PATIENT DENIES ANY NEEDS AT THIS TIME. CALL LIGHT AND PERSONAL BELONGINGS ARE WITHIN REACH.
--- NOTE | 2025-03-09 21:15 | NUR ---
PATIENT MEDICATED PER EMAR. PATIENT ASSESSMENT COMPLETED. PATIENT SITTING UP IN BED WATCHING TV. PATIENT WITHOUT FURTHER NEEDS AT THIS TIME. CALL LIGHT AND PERSONAL BELONGINGS ARE WITHIN REACH.
--- NOTE | 2025-03-09 22:33 | NUR ---
PATIENT RESTING IN BED WITH HIS EYES CLOSED. EVEN AND UNLABORED RESPIRATIONS NOTED. CALL LIGHT AND PERSONAL BELONGINGS ARE WITHIN REACH.
--- NOTE | 2025-03-09 23:45 | NUR ---
PATIENT RESTING IN BED WITH HIS EYES CLOSED. EVEN AND UNLABORED RESPIRATIONS NOTED. CALL LIGHT AND PERSONAL BELONGINGS ARE WITHIN REACH.
--- NOTE | 2025-03-10 01:42 | NUR ---
PATIENT RESTING IN BED WITH HIS EYES CLOSED. EVEN AND UNLABORED RESPIRATIONS NOTED. CALL LIGHT AND PERSONAL BELONGINGS ARE WITHIN REACH.
--- NOTE | 2025-03-10 02:27 | NUR ---
PATIENT RESTING IN BED WITH EYES CLOSED. EVEN AND UNLABORED RESPIRATIONS NOTED. CALL LIGHT AND PERSONAL BELONGINGS ARE WITHIN REACH.
--- NOTE | 2025-03-10 03:41 | NUR ---
PATIENT RESTING IN BED WITH HIS EYES CLOSED. EVEN AND UNLABORED RESPIRATIONS NOTED. CALL LIGHT AND PERSONAL BELONGINGS ARE WITHIN REACH.
--- NOTE | 2025-03-10 04:39 | NUR ---
PATIENT RESTING IN BED WITH HIS EYES CLOSED. EVEN AND UNLABORED RESPIRATIONS NOTED. CALL LIGHT AND PERSONAL BELONGINGS ARE WITHIN REACH.
[2025-03-10 05:22] VITALS: BP 154/77
--- NOTE | 2025-03-10 06:00 | NUR ---
PATIENT RESTING IN BED, REFUSING FOR THIS RN TO REPOSITION PATIENT. PATIENT WITH INCREASE AGITATION THIS MORNING. PATIENT WITHOUT FURTHER NEEDS AT THIS TIME. CALL LIGHT AND PERSONAL BELONGINGS ARE WITHIN REACH.
[2025-03-10 06:06] LABS: ALBUMIN 2.2 g/dL (3.4-5.0); ALBUMIN/GLOBULIN RATIO 0.5 (1.1-2.4); ANION GAP 8.7 (7-21); BILIRUBIN, TOTAL 0.5 mg/dL (0.2-1.0); BUN/CREATININE RATIO 13.68 (6.0-28.6); CALCIUM 8.3 mg/dL (8.5-10.1); CREATININE, SERUM 0.95 mg/dL (0.70-1.30); POTASSIUM 3.7 mmol/L (3.5-5.1); PROTEIN, TOTAL 6.6 g/dL (6.4-8.2)
[2025-03-10 06:25] LABS: BASOPHILS 0.3 % (0-2); EOSINOPHILS 5.8 % (0-6); HEMATOCRIT 39.3 % (35.0-50.0); HEMOGLOBIN 13.6 g/dL (12.0-18.0); LYMPHOCYTES 8.8 % (24-44); MCH 30.3 (27-36); MCHC 34.6 g/dl (30-36); MCV 87.5 fl (81-99); MONOCYTES 15.6 % (0-12); NEUTROPHILS 69.5 % (39-80); PLATELET COUNT 153 K/uL (140-440); RBC 4.49 M/ul (4.3-5.7); RDW 21.6 (10.5-15.0)
[2025-03-10 06:37] VITALS: BP 154/77
--- NOTE | 2025-03-10 07:23 | NUR ---
VERBAL REPORT RECEIVED FROM AZAR VILLA. PT RESTS IN BED, AWAKE AND ALERT, CALL LIGHT IN REACH, NO REQUESTS AT THIS TIME.
[2025-03-10 07:53] VITALS: BP 148/94
[2025-03-10 07:55] VITALS: BP 148/94
--- NOTE | 2025-03-10 07:58 | NUR ---
PATIENT IN BED AT THIS TIME. THIS FELT WASHING MACHINE TENDER CHARTED HOURLY ROUNDS. CALL LIGHT WITHIN REACH, NO FURTHER NEEDS AT THIS TIME.
--- NOTE | 2025-03-10 08:40 | NUR ---
Received a call from Desmond at [facility], she is requesting orders. Let her know we are in report and I will ask he complete marcellus.
[2025-03-10 09:05] VITALS: BP 139/83
--- NOTE | 2025-03-10 09:06 | NUR ---
PATIENT SITTING UP IN BED WATCHING TV. VITALS AND I&O'S DONE AND CHARTED. BELOGINGS BAGGED UP IN PREPERATION FOR DC. CALL LIGHT IN REACH. NO FURTHER NEEDS AT THIS TIME.
[2025-03-10] MEDS ORDERED: CEPHALEXIN500 M1 PO (09:29)
--- NOTE | 2025-03-10 09:45 | NUR ---
Received orders and faxed to [facility]. Called Desmond and updated chart has been sent. She states transport was there and picked up the wc for transport.
--- NOTE | 2025-03-10 11:00 | NUR ---
Updated by pepe Alonso. The van has not arrived. I called and spoke with [facility]. He will call the local hazmat driver. I spoke with Monty, He states he has the drivers number. I let him know I already called the dude ranch manager. He denies any concerns.
--- NOTE | 2025-03-10 11:04 | NUR ---
REFERRED BY HOSPICE SUPERINTENDENT BRANDI WHO INDICATED PT HAD REQUESTED VISIT BEFORE DISCHARGE. PT EXPRESSED ROHAN UPON MY ENTRY INTO ROOM, SATISFACTION WITH CARE, EXPRESSED CONTENTMENT WITH PLAN MOVING FORWARD, INTENT TO SEEK POSITIVITY, FRIENDSHIPS. SEWER PIPE LAYER HELPER PROVIDED SUPPORTIVE PRESENCE, FACILITATED LIFE REVIEW, ENCOURAGE FOCUS ON PRESENT, PROVIDED PRAYER, FACILITATED INTERACTION WITH THERAPY ANIMAL. PT EXPRESSED GRATITUDE, PEACE.
--- NOTE | 2025-03-10 11:10 | NUR ---
PATIENT IN BED AT THIS TIME. THIS ARMATURE STRAIGHTENER AND ARMATURE STRAIGHTENER CORNELIUS GOT PATIENT READY FOR DISCHARGE AND PATIENT IS WAITING. CALL LIGHT WITHIN REACH, NO FURTHER NEEDS.
--- NOTE | 2025-03-10 11:35 | NUR ---
PT ASSISTED TO BE DRESSED. VSS. IV REMOVED, TIP INTACT, GAUZE AND COBAN DRESSING APPLIED TO SITE, PT TOLERATED WELL. PT ASSISTED TO WHEELCHAIR. PT LEAVES UNIT VIA WHEELCHAIR WITH BLONGINGS - SHIRT, PANTS AND SUSPENDERS, ESCORTED BY DIANDRA HUI CNA TO WHEELCHAIR VAN FOR TRANSPORTATION TO [facility].
--- NOTE | 2025-03-10 11:40 | NUR ---
Notified by staff, Monty called the corporate driver and he will pick him up.
--- NOTE | 2025-03-10 12:02 | NUR ---
CALLED [facility] TO GIVE REPORT, FORWARDED TO NURSES STATION, NO ANSWER.
--- NOTE | 2025-03-10 15:13 | NUR ---
TELEPHONE REPORT PROVIDED TO NATHAN SHEA AT T.
== END 2025-03-10 11:35 | DRG 603 ==
LOC: ED 12:50 → MS 16:44
PROVIDERS: Emergency Medicine; ADMIT Family Medicine; ATTEND Family Medicine
DX: L03.317 Cellulitis of buttock (principal); F10.20 Alcohol dependence, uncomplicated; I48.91 Unspecified atrial fibrillation; Z66 Do not resuscitate; G62.9 Polyneuropathy, unspecified; I10 Essential (primary) hypertension; Z98.890 Other specified postprocedural states; Z90.49 Acquired absence of other specified parts of digestive tract; Z90.89 Acquired absence of other organs; Z79.82 Long term (current) use of aspirin; Z79.01 Long term (current) use of anticoagulants; Z74.01 Bed confinement status; E83.39 Other disorders of phosphorus metabolism; E87.6 Hypokalemia
CPT/HCPCS: 36415; 71045; 80053; 80162; 83605; 83735; 84100; 85025; 85060; 85610; 93005; 93010; 94640; 94760; 94762; 94799; 96365; 97110; 97162; 97166; 97530; 99285-25; A9270; J0456; J0696; J1650; J1938; J3411; J7030; J7040; J7060

== ENCOUNTER 2025-05-11 10:55 | Inpatient (IN) | payer MEDICARE, OTHER ==
[~2025-05-11] VITALS: Ht 180.3 cm; Wt 112.1 kg
[~2025-05-11 10:55] MED LIST changes: +CEPHALEXIN500 M1 PO
[2025-05-11 11:45] LABS: BASOPHILS 0.9 % (0.2-1.2); EOSINOPHILS 1.7 % (0.8-7.0); LYMPHOCYTES 8.0 % (21.8-53.1); MCH 30.4 PG (25.7-32.2); MCHC 33.9 g/dL (32.3-36.5); MCV 89.5 fL (79.0-92.2); MONOCYTES 11.9 % (5.3-12.2); NEUTROPHILS 77.0 % (34.0-67.9); RBC 4.97 M/uL (4.63-6.08)
[2025-05-11 12:06] LABS: LACTIC ACID, BLOOD 3.0 mmol/L (0.4-2.0)
[2025-05-11 12:12] LABS: ALT (SGPT) 27.0 U/L (14-59); AST (SGOT) 23.0 U/L (15-37); GLOMERULAR FILTRATION RATE,EST 64.0 mL/min (>60); PROTEIN, TOTAL 7.9 g/dL (6.4-8.2); UREA NITROGEN 7.0 mg/dL (7-18)
[2025-05-11 13:02] LABS: BLOOD/HGB, URINE NEGATIVE (Negative); KETONE, URINE NEGATIVE (Negative); LEUK ESTERASE, URINE NEGATIVE (negative); NITRITE, URINE NEGATIVE (negative)
[2025-05-11] MEDS ORDERED: LACTATED RINGER'S 1,000 ML IV ONE (14:30)
[2025-05-11] MEDS ORDERED: SODIUM CHLORIDE 0.9% 1,000 ML IV ONE (15:00)
[2025-05-11 15:14] LABS: AMPHETAMINES, URINE NEGATIVE (NEGATIVE); BARBITURATES, URINE NEGATIVE (NEGATIVE); BENZODIAZEPINE, URINE NEGATIVE (NEGATIVE); CANNABINOID, URINE NEGATIVE (NEGATIVE); COCAINE, URINE NEGATIVE (NEGATIVE); ECSTASY, URINE NEGATIVE (NEGATIVE); FENTANYL, URINE NEGATIVE (NEGATIVE); METHADONE, URINE NEGATIVE (NEGATIVE); OPIATES, URINE NEGATIVE (NEGATIVE); OXYCODONE, URINE NEGATIVE (NEGATIVE); PHENCYCLIDINE, URINE NEGATIVE (NEGATIVE)
[2025-05-11] MEDS ORDERED: LORazepam 1 MG TAB PO ONE (15:15)
[2025-05-11] MEDS ORDERED: MULTIVITAMINS THERAPEUTIC 1 EA TAB PO ONE (15:15)
[2025-05-11] MEDS ORDERED: LACTATED RINGER'S 1,000 ML IV SCH (18:15)
[2025-05-11] MEDS ORDERED: ACETAMINOPHEN 325 MG TAB PO PRN (18:15)
[2025-05-11] MEDS ORDERED: ENOXAPARIN SODIUM 40 MG/0.4 ML SYR SUB-Q SCH (18:15)
[2025-05-11] MEDS ORDERED: THIAMINE HCL 200 MG/2 ML VIAL IV SCH (18:17)
[2025-05-11] MEDS ORDERED: FOLIC ACID 1 MG/0.2 ML ML IV SCH (18:17)
[2025-05-11] MEDS ORDERED: LORazepam 2 MG/ML VIAL IV/IM PRN (18:30)
[2025-05-11 19:24] LABS: DIGOXIN LAST DOSE 06/30/2025
[2025-05-11 19:25] VITALS: BP 159/79
--- NOTE | 2025-05-11 19:25 | NUR ---
pt ARRIVED TO THE FLOOR VIA STRETCHER. pt TRANSFERED TO THE BED VIA HOVER MAT. REPORT RECEIVED FROM MIKE ASKEW. VITAL SIGNS DONE. ASSESSMENT DONE. pt HAS ULCER ON LATERAL SIDE OF RLE AND WOUND ON CALF OF LLE. PICS TAKEN AND ALLYVENS PLACED ON pt'S BILAT LE. WATER REFRESHED. SNACK PROVIDED. IV ASSESSED, WNL. pt DENIES ANY OTHER NEEDS AT THIS TIME. CALL LIGHT WITHIN REACH.
[2025-05-11 19:26] VITALS: BP 159/79
--- NOTE | 2025-05-11 19:37 | EKG ---
[facility] [address] [facility] [place] [address] Signed Atrial fibrillation with rapid ventricular response Left axis deviation Minimal voltage criteria for LVH, may be normal variant ( R in aVL ) Anteroseptal infarct (cited on or before 05-MAR-2025) Marked ST abnormality, possible lateral subendocardial injury Abnormal ECG When compared with ECG of 05-MAR-2025 13:54, Questionable change in initial forces of Anteroseptal leads Confirmed by Geovanna Raphael DO ([id number]) on 05/11/2025 7:37:06 PM Electronically Signed By: GEOVANNA RAPHAEL DO 05/11/251936 PATIENT NAME: DIANE BOTELLO Electrocardiogram DATE OF : 50 PHYSICIAN: GEOVANNA RAPHAEL DO REPORT #: [id number] REPORT IS CONFIDENTIAL AND NOT TO BE RELEASED WITHOUT AUTHORIZATION
--- NOTE | 2025-05-11 20:05 | NUR ---
IVF INFUSING PER ORDER. pt POSITONED WITH PILLOW UNDER LEGS. pt DENIES ANY OTHER NEEDS AT THIS TIME. CALL LIGHT WITHIN REACH.
[2025-05-11] MEDS ORDERED: MELATONIN 3 MG TAB PO PRN (21:00)
--- NOTE | 2025-05-11 21:15 | NUR ---
pt CALLED AND STATED HE HAD A BM FINISHER [employer] AND THE PLANT PROPAGATOR WENT IN THE RM AND CHANGED HIS BRIEF. pt HAD A LARGE LIQUID BM. BARRIER CREAM PLACED ON pt GUTIERREZ AREA. pt DENIES ANY OTHER NEEDS AT THIS TIME. CALL LIGHT WITHIN REACH.
--- NOTE | 2025-05-11 22:32 | NUR ---
pt RESTING IN THE BED. pt DENIES ANY NEEDS AT THIS TIME. IVF INFUSING PER ORDER. CALL LIGHT WITHIN REACH.
[2025-05-12] VITALS (8 sets, daily range): BP systolic 126–170; BP diastolic 31–64
--- NOTE | 2025-05-12 00:38 | NUR ---
pt RESTING IN THE BED. pt DENIES ANY NEEDS AT THIS TIME. CALL LIGHT WITHIN REACH.
--- NOTE | 2025-05-12 02:35 | NUR ---
pt RESTING IN THE BED. pt DENIES ANY OTHER NEEDS AT THIS TIME. CALL LIGHT WITHIN REACH.
--- NOTE | 2025-05-12 04:03 | NUR ---
pt CALLED FOR AN ALARMING IV. DISTAL OCCLUSION FIXED. pt DENIES ANY OTHER NEEDS AT THIS TIME. CALL LIGHT WITHIN REACH.
[2025-05-12 05:30] LABS: BASOPHILS 0.8 % (0.2-1.2); EOSINOPHILS 3.2 % (0.8-7.0); LYMPHOCYTES 15.9 % (21.8-53.1); MCH 30.3 PG (25.7-32.2); MCHC 32.5 g/dL (32.3-36.5); MCV 93.2 fL (79.0-92.2); MONOCYTES 11.2 % (5.3-12.2); NEUTROPHILS 68.3 % (34.0-67.9); RBC 4.29 M/uL (4.63-6.08)
[2025-05-12 05:52] LABS: ALT (SGPT) 19.0 U/L (14-59); AST (SGOT) 18.0 U/L (15-37); GLOMERULAR FILTRATION RATE,EST 83.0 mL/min (>60); PHOSPHORUS, INORGANIC 2.8 mg/dL (2.5-4.9); PROTEIN, TOTAL 6.5 g/dL (6.4-8.2); UREA NITROGEN 8.0 mg/dL (7-18)
--- NOTE | 2025-05-12 05:53 | NUR ---
IN RM TO DO ASSESSMENT. VITAL SIGNS DONE. pt HAS NO DRAINAGE FROM BILAT LE. CMS INTACT. pt DENIES ANY OTHER NEEDS AT THIS TIME. CALL LIGHT WITHIN REACH.
--- NOTE | 2025-05-12 07:25 | NUR ---
VERBAL REPORT RECEIVED FROM AZAR VEGA. PT IS AWAKE AND ALERT IN BED, NO REQUESTS AT THIS TIME.
--- NOTE | 2025-05-12 07:32 | NUR ---
PATIENT IN BED AT THIS TIME. THIS CONTACT ASSEMBLER ASSISTED PATIENT IN USING THE URINAL. THIS CONTACT ASSEMBLER AND CONTACT ASSEMBLERGilbert SHIELDS CHNAGED PATIENTS BRIEF AND PROVIDED GUTIERREZ CARE. THIS CONTACT ASSEMBLER ALSO GAVE PATIENT WARM WASH CLOTH. CALL LIGHT WITHIN REACH, NO FURTHER NEEDS AT THIS TIME.
[2025-05-12] MEDS ORDERED: MULTIVITAMINS THERAPEUTIC 1 EA TAB PO SCH (08:00)
[2025-05-12] MEDS ORDERED: AMOXICILLIN/CLAVULANATE K 875 MG TAB PO SCH (08:00)
[2025-05-12] MEDS ORDERED: ASPIRIN 81 MG CHEW PO SCH (08:00)
--- NOTE | 2025-05-12 08:30 | NUR ---
PHYSCIAL ASSESSMENT COMPLETE DURING POWER OUTAGE. UNABLE TO ACCESS PROCESS INTREVENTION. PT ALERT AND ORIENTED X4, HRR, LUNGS CLEAR, ON RA, BT ACTIVE X4 QUADRANTS, ABDOMEN IS SOFT AND NON-TENDER. TEDS IN PLACE TO BLE, FEET SCDS TO BLE, HEEL ELEVATED. CRYOCUF IN PLACE TO LEFT KNEE. CMS INTACT TO BLE. DRESSING TO LEFT KNEE INTACT. PT REPORTS CHRONIC NEROPATHY IN BLE. AMBULATES TO BATHROOM WITH FWW AND SBA, TOLERATES THIS WELL. VOIDS CLEAR YELLOW URINE. ON-Q PUMP TO RIGHT KNEE INTACT. CALL LIGHT IN REACH.
[2025-05-12] MEDS ORDERED: FUROSEMIDE 20 MG TAB PO SCH (09:00)
[2025-05-12] MEDS ORDERED: AMLODIPINE BESYLATE 5 MG TAB PO SCH (09:00)
[2025-05-12] MEDS ORDERED: CYANOCOBALAMIN 1,000 MCG TAB PO SCH (09:00)
[2025-05-12] MEDS ORDERED: DIGOXIN 125 MCG TAB PO SCH (09:00)
--- NOTE | 2025-05-12 09:30 | NUR ---
REFERRAL SENT TO [facility] VIA FAX.
--- NOTE | 2025-05-12 09:59 | NUR ---
PATIENT SEEN IN ED ON 05/11/25. LIVES IN APARTMENT ALONE WITH NO STEPS. HAS A CAREGIVER 10 HOURS/WEEK. HAS A WALKER AND WHEELCHAIR. DOES NOT DRIVE, USES [employer] FOR TRANSPORTATION. PLANNING TO GO TO SNF WHEN MEDICALLY STABLE. PREFERS [facility].
[2025-05-12] MEDS ORDERED: ADVIL200 MG PO (10:04)
--- NOTE | 2025-05-12 10:04 | NUR ---
MED REC COMPLETE
--- NOTE | 2025-05-12 10:23 | NUR ---
PT NOT AVAILABLE FOR VISIT. PROVIDED PRAYER.
--- NOTE | 2025-05-12 10:37 | NUR ---
PATIENT IN CHAIR AT THIS TIME. THIS SCIENTIFIC ILLUSTRATOR AND SCIENTIFIC ILLUSTRATOR CORNELIUS CHANGED PATIENTS BREIF AND PLACED PUREWICK @ 1020. THIS SCIENTIFIC ILLUSTRATOR CHANGED PATIENTS LINENS. CALL LIGHT WITHIN REACH, NO FURTHER NEEDS AT THIS TIME.
--- NOTE | 2025-05-12 10:48 | NUR ---
UR CLINICAL REVIEW: 2 MN FOR VERSALUS-PER GENERAL SALES MANAGER MEETS INPT CRITERIA FOR ALCOHOL USE DISORDER WITH NEGLECT OF SELF CARE MEDICARE INPT 05/11/25 @ 3946 ORDER MATCHES REG NO AUTH REQUIRED PER MEDICARE GUIDELINES DISCHARGE TO SNF PER PT EVAL AND PATIENT NEEDS
--- NOTE | 2025-05-12 11:31 | NUR ---
PATIENT BELIEVES HE HAS BEEN OUT OF [facility] FOR 32-33 DAYS. UNSURE HOW LONG HE WAS THERE. DISCUSSED POTENTIAL OF BEING OUT OF MEDICARE DAYS FOR SNF. VERBALIZES UNDERSTANDING. EDUCATED FURTHER ON INSPECTOR AND UNLOADER MEDICAID AND ENCOURAGED TO HAVE HIM APPLY. PHONE NUMBER FOR CARE HOME MEDICAID PROVIDED.
[2025-05-12] MEDS ORDERED: PHARMACY RENAL DOSE ADJUSTMENT 1 DOSE MISC PO SCH (12:00)
--- NOTE | 2025-05-12 13:55 | NUR ---
PT BACK TO BED PER REQUEST, TRANSFERRED PER GRACE, PT TOLERATES THIS WELL.
--- NOTE | 2025-05-12 13:56 | NUR ---
PATIENT IN BED AT THIS TIME. PRESS MANAGER CAHRTED VITALS AND I&O'S. THIS PRESS MANAGER, HOA SHIELDS, AZAR PADILLA, AND AZAR EDWARDSED PATIENT BACK TO BED. CALL LIGHT WITHIN REACH, NO FURTHER NEEDS.
--- NOTE | 2025-05-12 16:01 | NUR ---
SPOKE WITH VAISHALI AT [facility] FOR PRISON MEDICAID APPLICATION INITIATION, STATES SHE IS GOING TO RETURN CALL TO PATIENT TO START THE PROCESS BECAUSE HE LEFT HER A MESSAGE EARLIER TODAY.
--- NOTE | 2025-05-12 16:54 | NUR ---
WOUND CARE CONSULTED FOR WOUNDS TO BLE. HISTORY OF PRESENT ILLNESS: PT IS A 75 YEAR OLD MALE ADMITTED FOR VIRAL GASTROENTERITIS ON 05/11/25. PT ARRIVES WITH EXISTING CHRONIC WOUNDS TO THE BLE AND CHRONIC VENOUS INSUFFICIENCY. PAST MEDICAL HISTORY: A-FIB, ETOH, CHRONIC DECONDITIONING, CHRONIC LOWER EXTREMITY WOUNDS, CHRONIC LOWER EXTREMITY LYMPHEDEMA, HISTORY OBTAINED FROM CHART. ALLERGIES: NKDA UPON ASSESSMENT NOTED 2-3+ NON-PITTING EDEMA IN BLE. BLE ARE GERRY WITH DRY SCALING SKIN, VENOUS DEMATITIS, THICKEND TOE NAILS, SKIN IS WARM, GLASS FORMING CREW MEMBER < 3 SECONDS. WOUNDS X2 TO THE LEFT CALF AND X1 TO THE RIGHT LATERAL ANKLE. VARIOUS EXCORIATIONS NOTED. PT HAD A RECENT STAY AT [facility] AND HAS SINCE BEEN DISCHARGED HOME. PT REPORTS HE HAS NOT RECEIVED WOUND CARE SINCE HIS DISCHARGE FROM [facility]. PT IS FAMILAIR TO WOUND CARE FROM PREVIOUS ADMISSIONS AND OUTPATIENT CARE THROUGH [facility]. WOUND ASSESSMENT: LEFT LATERAL CALF, SUSPECTED ETIOLOGY OF VENOUS INSUFFICIENCY. CLASSIFICATION: FULL THICKNESS SIZE: 3 CM X 1 CM X 0.3 CM WOUND BASE: 100% YELLOW ADHERENT SLOUGH. EDGES: OPEN EXUDATE: Serosanguineous SMALL AMOUNT GUTIERREZ WOUND SKIN: EXCORIATION PINK DRY WARM. WOUND ASSESSMENT: LEFT MEDIAL CALF, SUSPECTED ETIOLOGY VENOUS INSUFFICIENCY. CLASSIFICATION: FULL THICKNESS SIZE: 3.5 CM X 1.2 CM X 0.2 CM WOUND BASE:100% YELLOW ADHERENT SLOUGH. EDGES: OPEN EXUDATE: Serosanguineous SMALL AMOUNT GUTIERREZ WOUND SKIN: EXCORIATION PINK DRY WARM. WOUND ASSESSMENT: RIGHT LATERAL ANKLE, SUSPECTED ETIOLOGY VENOUS INSUFFICIENCY. CLASSIFICATION: FULL THICKNESS SIZE: 1.5 CM X 1 CM X 0.3 CM WOUND BASE: 100% YELLOW ADHERENT SLOUGH. EDGES: DIFFUSE ATTACHED EXUDATE: Serosanguineous SMALL AMOUNT GUTIERREZ WOUND SKIN: INTACT PINK DRY WARM. PICTURES FROM ADMISSION IN PAPER CHART. PROCEDURE: BLE CLEANSED WITH DISPOSABLE BATH TOWELS AND NO-RINSE SOAP. LOOSE SCALING VENOUS DERMATITS IN PERIWOUND REMOVED. WOUNDS CLEANSED WITH NS AND PATTED DRY. TRIAD CREAM APPLIED TO WOUND BASED AND AREAS OF EXORIATION. UNNA S BOOTS WITH ZINC APPLIED FROM TOES TO KNEES WITH 50% OVERLAY. SECURED WITH CONFORM. PT TOLERATED WELL. TREATMENT RECOMMENDATIONS CLEANSE INTACT SKIN OF BLE WITH BATH WIPS AND/OR NO RINSE FOAM SOAP. CLEANSE WOUNDS WITH NS AND PAT DRY. APPLY TRIAD CREAM TO WOUND BASES AND ANY PERIWOUND EXCORIATION. WRAP BLE FROM TOES TO KNEE WITH UNNA S BOOTS WITH ZINC, APPLY WITH 50% OVERLAY. SECURED WITH COBAN WRAP AT 50% OR LESS STRETCH, DO NOT WRAP TIGHTLY. CHANGE DRESSING EVERY 3 DAYS. RECOMMEND CONTINUE OUTPATIENT WOUND CARE UPON DISCHARGE. GOALS: HEAL. CONTROL SWELLING AND DECREASE SLOUGH IN WOUND BASE. WOUND CARE SIGNING OFF. PLEASE RE-CONSULT FOR ANY NEW CONCERNS.
--- NOTE | 2025-05-12 18:53 | NUR ---
GOT PT FRESH ICE WATER. PT SITTING UP IN BED, PT IN GOOD MOOD WATCHING mARINEMovinto Fun BASEBALL GAME ON TV. PT REPORTS NEEDING NOTHING ELSE AT THIS TIME. CALL LIGHT WITHIN REACH.
--- NOTE | 2025-05-12 19:10 | NUR ---
REPORT RECEIVED FROM KATIE ASKEW. pt RESTING IN THE BED. BOARD UPDATED. pt DENIES ANY OTHER NEEDS AT THIS TIME. CALL LIGHT WITHIN REACH.
--- NOTE | 2025-05-12 20:40 | NUR ---
ASSESSMENT AND VITAL SIGNS DONE. pt RESTING IN THE BED. pt BRUSHED HIS TEETH. pt HAS MINIMAL DRAINAGE ON HIS RLE. LULA BOOTS INTACT. CMS INTACT. WATER REFRESHED. IV ASSESSED, WNL. pt DENIES ANY OTHER NEEDS AT THIS TIME. CALL LIGHT WITHIN REACH. MALE PURE WICK IN PLACE AND CONNECTED TO WALL SUCTION.
--- NOTE | 2025-05-12 22:56 | NUR ---
pt RESTING IN THE BED. pt DENIES ANY OTHER NEEDS AT THIS TIME. CALL LIGHT WITHIN REACH.
[2025-05-13] VITALS (9 sets, daily range): BP systolic 109–134; BP diastolic 58–85
--- NOTE | 2025-05-13 00:27 | NUR ---
pt RESTING IN THE BED. pt DENIES ANY OTHER NEEDS AT THIS TIME. CALL LIGHT WITHIN REACH.
--- NOTE | 2025-05-13 02:11 | NUR ---
pt RESTING IN THE BED WITH EYES CLOSED. RR EVEN AND UNLABORED. CALL LIGHT WITHIN REACH.
--- NOTE | 2025-05-13 04:32 | NUR ---
pt RESTING IN THE BED. pt DENIES ANY OTHER NEEDS AT THIS TIME. CALL LIGHT WITHIN REACH.
[2025-05-13 05:30] LABS: ALT (SGPT) 24.0 U/L (14-59); AST (SGOT) 23.0 U/L (15-37); GLOMERULAR FILTRATION RATE,EST 78.0 mL/min (>60); PROTEIN, TOTAL 6.5 g/dL (6.4-8.2); UREA NITROGEN 8.0 mg/dL (7-18)
--- NOTE | 2025-05-13 05:41 | NUR ---
in rm to do assessment and vital signs. new pure wick placed on PT. brief changed. PT denies any other needs at this time. call light within reach. lizzie boots in place. no new drainage on bilat LE.
--- NOTE | 2025-05-13 07:05 | NUR ---
REPORT RECEIVED FROM AZAR VEGA. PATIENT RESTING IN BED WITH EYES CLOSED, RR EVEN AND UNLABORED. PATIENT WAKES SUDDENLY AND REQUESTS HIS DOOR BE CLOSED. NO OTHER REQUESTS. CALL LIGHT AND PERSONAL BELONGINGS IN REACH.
[2025-05-13] MEDS ORDERED: FOLIC ACID 1 MG TAB PO SCH (08:00)
[2025-05-13] MEDS ORDERED: THIAMINE HCL 100 MG TAB PO SCH (08:00)
--- NOTE | 2025-05-13 08:50 | NUR ---
MEDICATION ADMINISTERED, SEE MAR. ASSESSMENT COMPLETE. PATIENT IS RESTING IN BED AND HAS JUST FINISHED BREAKFAST. PATIENT'S AFFECT IS FLAT AND PATIENT APPEARS DOWN. HOA ANGEL ENTERS. PATIENT REFUSES SHOWER AND GETTING OUT OF BED. PATIENT ENCOURAGED TO GET UP LATER FOR LUNCH. PATIENT DISINTERESTED. PATIENT REPORTING BLE PAIN FROM NEUROPATHY RATED 7/10, "IT'S ALWAYS A 7. NOTHING EVER HELPS IT." FRESH CHUX PLACED BENEATH BLE FOR SEROUS DRAINAGE FROM RLE DRESSING. PATIENT RESTING WITH EYES CLOSED, DOES NOT SPEAK UNLESS DIRECTLY ADDRESSED AND APPEARS HESITANT TO ANSWER ANY QUESTIONS. Refund ExchangeWICK REMAINS IN PLACE, CALL LIGHT AND PERSONAL BELONGINGS IN REACH.
--- NOTE | 2025-05-13 09:29 | NUR ---
SPOKE WITH PALLAVI AT [facility] AND THEY CAN ACCEPT PATIENT TOMORROW FOR SNF.
--- NOTE | 2025-05-13 10:08 | NUR ---
UPDATED PATIENT THAT HE HAS BEEN ACCEPTED TO [facility]. UPDATED DR. CORONADO PATIENT HAS BEEN ACCEPTED TO [facility] FOR TOMORROW IF HE IS MEDICALLY READY.
--- NOTE | 2025-05-13 10:13 | NUR ---
PATIENT IS WORKING WITH PHYSICAL AND OCCUPATIONAL THERAPY AT THIS TIME, APPEARS IN BETTER SPIRITS THAN THIS AM, MORE COMMUNICATIVE.
--- NOTE | 2025-05-13 11:07 | NUR ---
PT NOT AVAILABLE FOR VISIT. PROVIDED PRAYER.
--- NOTE | 2025-05-13 11:09 | NUR ---
PATIENT IS SITTING IN CHAIR. PATIENTS VITAL SIGNS AND I&OS WERE BELTRAN. PATIENTS CALL LIGHT IN REACH AND NO FURTHER NEEDS AT THIS TIME.
--- NOTE | 2025-05-13 11:15 | NUR ---
PATIENT REMAINS UP IN RECLINER WITH BLE ELEVATED, PUREWICK IN PLACE. PATIENT MOOD CONTINUES TO IMPROVE FROM THIS AM. PATIENT REPORTS THAT HE WAS FEELING DOWN THIS MORNING, BUT HE IS FEELING MUCH BETTER NOW. PATIENT IS JOKING WITH STAFF AND ENJOYING HIMSELF. DENIES PAIN OR DISCOMFORT. PATIENT DOES REPORT CONSTIPATION, AGREEABLE TO MIRALAX. NIO PLACED. NO OTHER REQUESTS, CALL LIGHT AND PERSONAL BELONGINGS IN REACH.
[2025-05-13] MEDS ORDERED: POLYETHYLENE GLYCOL 3350 1 PACKET PO SCH (11:24)
--- NOTE | 2025-05-13 11:42 | NUR ---
UPDATED ON DC PLAN. IMM LETTER DISCUSSED AND PATIENT SIGNED. 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 PHONE NUMBER FOR MAIN OFFICE PROVIDED AND INSTRUCTED TO ASK FOR THE WORKER OF THE DAY. DENIES OTHER NEEDS.PLAN TO DC TO [facility] TOMORROW VIA WHEELCHAIR VAN.
--- NOTE | 2025-05-13 12:23 | NUR ---
WHEELCHAIR VAN SCHEDULED FOR 10:15 AM TRANSPORT TIME TO [facility]. THEY WILL PET TECHNOLOGIST WHEELCHAIR FROM [facility] AROUND 0900 TO BRING TO HOSPITAL FOR TRANSPORT FOR PATIENT.
--- NOTE | 2025-05-13 13:00 | NUR ---
AFTER PATIENT WAS GRACE TO HIS BED. PATIENT'S MALE PUREWICK GOT CHANGED SO DID HIS TAPED ATTEND. DANNY THE NURSE HELPED ME. PATIENT GOT A NEW GOWN. GUTIERREZ CARE DONE.
--- NOTE | 2025-05-13 13:52 | NUR ---
PATIENT BACK IN BED WITH NEW PUREWICK IN PLACE, NEW BRIEF. FRESH CHUX PLACED UNDER BILAT LEGS, LEGS ELEVATED ON TWO PILLOWS IN BED. PATIENT HAS NO REQUESTS, CALL LIGHT AND PERSONAL BELONGINGS IN REACH.
--- NOTE | 2025-05-13 14:30 | NUR ---
PATIENT IS SLEEPING.
--- NOTE | 2025-05-13 14:53 | NUR ---
PATIENT RESTING IN BED WITH EYES CLOSED, RR EVEN AND UNLABORED. CALL LIGHT IN REACH.
--- NOTE | 2025-05-13 17:37 | NUR ---
PATIENT LAYING IN BED. VITAL SIGNS AND I&OS WERE DONE. MALE PURWICK WAS CHECK AND BRIEF WAS DRY. CALL LIGHT IN REACH AND NO FURTHER NEEDS AT THIS TIME.
--- NOTE | 2025-05-13 19:15 | NUR ---
REPORT RECEIVED FROM DERIC ASKEW. pt RESTING IN THE BED. BOARD UPDATED. pt DENIES ANY OTHER NEEDS AT THIS TIME. CALL LIGHT WITHIN REACH.
--- NOTE | 2025-05-13 20:47 | NUR ---
OPERATIONS RESEARCH ENGINEER OBTAINED VITALS AND I&O. ICE WATER REFILLED. PT STATES NO FURTHER NEEDS AT THIS TIME. CALL LIGHT WITHIN REACH.
--- NOTE | 2025-05-13 21:25 | NUR ---
ASSESSMENT AND VITAL SIGNS DONE. LULA BOOTS INTACT. CMS INTACT. BILAT LE HAS MINIMAL OLD SHADOWING ON DRESSING OTHERWISE CDI. IV ASSESSED, WNL. pt DENIES ANY OTHER NEEDS AT THIS TIME. CALL LIGHT WITHIN REACH.
--- NOTE | 2025-05-13 23:28 | NUR ---
pt RESTING IN THE BED. pt DENIES ANY OTHER NEEDS AT THIS TIME. CALL LIGHT WITHIN REACH.
--- NOTE | 2025-05-14 01:38 | NUR ---
pt RESTING IN THE BED WITH EYES CLOSED. RR EVEN AND UNLABORED. CALL LIGHT WITHIN REACH.
--- NOTE | 2025-05-14 03:44 | NUR ---
pt RESTING IN THE BED. pt DENIES ANY OTHER NEEDS AT THIS TIME. CALL LIGHT WITHIN REACH.
[2025-05-14 05:35] VITALS: BP 134/71
[2025-05-14 05:40] VITALS: BP 134/71
--- NOTE | 2025-05-14 05:54 | NUR ---
IN RM TO DO VITAL SIGNS pt RESTING IN THE BED. pt BRIEF DRY AT THIS TIME. pt DENIES ANY OTHER NEEDS AT THIS TIME. CALL LIGHT WITHIN REACH.
--- NOTE | 2025-05-14 07:20 | NUR ---
RECIEVED REPORT FROM AZAR VEGA. PT AWAKE IN BED, STATES NO CURRENT NEEDS. CALL LIGHT WITHIN REACH.
[2025-05-14] MEDS ORDERED: VITAMIN B-121000 MCG PO (08:04)
--- NOTE | 2025-05-14 08:11 | NUR ---
ORDERS FAXED TO [facility]. VAN TO BE HERE AT 0900 WITH WHEELCHAIR FOR D/C AROUND 10:15. NO FUTHER CM NEEDS AT THIS TIME.
--- NOTE | 2025-05-14 08:20 | NUR ---
PT UP IN BED, DENIES PAIN/NAUSEA/SOB. PT ABLE TO TAKE PO MEDICATIONS W/O DIFFICULTY. BREAKFAST TRAY SET UP FOR PT, PT STATES NO FURTHER NEEDS AT THIS TIME. CALL LIGHT WITHIN REACH.
[2025-05-14 09:24] VITALS: BP 106/53
--- NOTE | 2025-05-14 09:30 | NUR ---
JANICE AND I GAVE PATIENT A BED BATH AND SHAMPOO CAP. ALSO GOT HIM DRESSED. WHEN IT GET CLOSER FOR HIM TO DISCHARGE WE WILL DO THE GUTIERREZ CARE AND PUT THE SLING UNDER HIM. AND PULL UP HIS PANTS THE REST OF THE WAY. PATIENT ALSO BRUSHED HIS TEETH AND WASHED HIS FACE.
[2025-05-14 09:41] VITALS: BP 106/53
--- NOTE | 2025-05-14 09:52 | NUR ---
IV IS OUT EVERYTHING INTACT.
--- NOTE | 2025-05-14 10:20 | NUR ---
PT DRESSED IN OWN CLOTHES WITH ASSISTANCE, BREIF IN PLACE. IV DC'D WNL. PT PACKET SENT WITH PT TO [facility]. PT STATES ALL QUESTIONS HAVE BEEN ANSWERED. PT MOVED TO WHEELCHAIR, WHEELED TO FRONT OF BUILDING BY NURSING PERSONEL. VSS.
--- NOTE | 2025-05-14 10:30 | NUR ---
THIS RN CALLS TO [facility] TO GIVE REPORT, NO ANSWER, MESSAGE LEFT.
== END 2025-05-14 10:20 | DRG 603 ==
LOC: ED 10:55 → MS 18:28
PROVIDERS: Emergency Medicine; ADMIT Student in an Organized Health Care Education/Training Program; ATTEND Student in an Organized Health Care Education/Training Program
DX: L03.116 Cellulitis of left lower limb (principal); I48.20 Chronic atrial fibrillation, unspecified; F10.239 Alcohol dependence with withdrawal, unspecified; E87.20 Acidosis, unspecified; L03.115 Cellulitis of right lower limb; Z60.2 Problems related to living alone; Z66 Do not resuscitate; I10 Essential (primary) hypertension; G62.9 Polyneuropathy, unspecified; I89.0 Lymphedema, not elsewhere classified; S81.802A Unspecified open wound, left lower leg, initial encounter; S81.801A Unspecified open wound, right lower leg, initial encounter; I25.10 Atherosclerotic heart disease of native coronary artery without angina pectoris; R53.1 Weakness; M43.8X5 Other specified deforming dorsopathies, thoracolumbar region; R01.1 Cardiac murmur, unspecified; Z98.890 Other specified postprocedural states; Z90.89 Acquired absence of other organs; Z90.49 Acquired absence of other specified parts of digestive tract; Z87.19 Personal history of other diseases of the digestive system; Z79.899 Other long term (current) drug therapy; Z79.82 Long term (current) use of aspirin; X58.XXXA Exposure to other specified factors, initial encounter
CPT/HCPCS: 36415; 70450; 71045; 74177; 80053; 80162; 80307; 81003; 83605; 83690; 83735; 83880; 84100; 84484; 85025; 87040; 87045; 87046; 93005; 93010; 97162; 97166; 97530; 97535; A9270; A9270-GY; G0480; J1650; J3411; J7030; J7121; Q9967

== ENCOUNTER 2025-10-18 15:03 | Inpatient (IN) | payer MEDICARE, OTHER ==
[~2025-10-18] VITALS: Ht 180.3 cm; Wt 95.0 kg
[~2025-10-18 15:03] MED LIST changes: +ADVIL200 MG PO; +VITAMIN B-121000 MCG PO
[2025-10-18 15:43] LABS: BASOPHILS 0.8 % (0.2-1.2); EOSINOPHILS 2.2 % (0.8-7.0); LYMPHOCYTES 12.6 % (21.8-53.1); MCH 30.0 PG (25.7-32.2); MCHC 33.7 g/dL (32.3-36.5); MCV 89.2 fL (79.0-92.2); MONOCYTES 8.8 % (5.3-12.2); NEUTROPHILS 74.8 % (34.0-67.9); RBC 4.36 M/uL (4.63-6.08)
[2025-10-18 16:15] LABS: ALT (SGPT) 41.0 U/L (14-59); AST (SGOT) 56.0 U/L (15-37); GLOMERULAR FILTRATION RATE,EST 83.0 mL/min (>60); PROTEIN, TOTAL 7.3 g/dL (6.4-8.2); UREA NITROGEN 7.0 mg/dL (7-18)
[2025-10-18 17:10] LABS: BLOOD/HGB, URINE TRACE-I (Negative); KETONE, URINE TRACE (Negative); LEUK ESTERASE, URINE MODERATE (negative); NITRITE, URINE POSITIVE (negative)
[2025-10-18 17:30] LABS: EPITHELIAL CELLS, URINE SQUAMOUS 1+ /lpf (0-1+)
[2025-10-18 17:31] LABS: BACTERIA, URINE 4+ /hpf (negative); CASTS, URINE NONE SEEN \\lpf; CRYSTALS, URINE NONE SEEN (0-1+); REFLEX CULTURE, URINE Yes (No)
[2025-10-18] MEDS ORDERED: SODIUM CHLORIDE 0.9% 1,000 ML IV SCH (23:15)
[2025-10-18] MEDS ORDERED: MULTIVITAMINS THERAPEUTIC 1 EA TAB PO SCH (23:15)
[2025-10-18] MEDS ORDERED: THIAMINE HCL 100 MG TAB PO SCH (23:15)
[2025-10-18] MEDS ORDERED: LORazepam 2 MG/ML VIAL IV/IM PRN (23:15)
[2025-10-18] MEDS ORDERED: ACETAMINOPHEN 325 MG TAB PO PRN (23:15)
[2025-10-18] MEDS ORDERED: FOLIC ACID 1 MG TAB PO SCH (23:15)
[2025-10-19] VITALS (10 sets, daily range): BP systolic 120–145; BP diastolic 49–95
--- NOTE | 2025-10-19 01:15 | NUR ---
0647 - admitted to room 120 from ER via stretcher, required 5 people to transfer to bed. Alert and oriented, room air, SL patent. very edematous and peeling scaly skin legs, vascular discoloration to LE, edema and redness to feet. Legs elevated. redness to L upper coccyx area. Pt is incontinent of urine. f/c 16FR w 10cc water balloon inserted as per orders with inmediate dark yellow urine return. Procedure explained, Pt cooperative. tolerated sips of fluids. IVF started as per orders, denies c/o pain. Cooperative with admit questions and assessments
--- NOTE | 2025-10-19 01:30 | NUR ---
Patient arrived to the medical floor. Patient awake, alert and oriented x3, no acute distress. Vital signs are stable. Patient unable to stand, max assist transfer to unit bed. Patient oriented to room and call light. Bed alarm intact, call light within reach of pt.
--- NOTE | 2025-10-19 01:32 | NUR ---
New admit to the medical floor. Patient arrived to unit alert and oriented x3, no acute distress. Patient's vital signs are stable, 96% sp02 on room air, respirations non labored. Beebe catheter placed using sterile technique per provider order, pt tolerated well. Patient oriented to room and call light. Bed alarm intact.
[2025-10-19 05:24] LABS: BASOPHILS 0.9 % (0.2-1.2); EOSINOPHILS 2.8 % (0.8-7.0); LYMPHOCYTES 17.1 % (21.8-53.1); MCH 30.3 PG (25.7-32.2); MCHC 33.4 g/dL (32.3-36.5); MCV 90.6 fL (79.0-92.2); MONOCYTES 12.4 % (5.3-12.2); NEUTROPHILS 66.3 % (34.0-67.9); RBC 4.06 M/uL (4.63-6.08)
[2025-10-19 05:48] LABS: ALT (SGPT) 29.0 U/L (14-59); AST (SGOT) 28.0 U/L (15-37); GLOMERULAR FILTRATION RATE,EST 89.0 mL/min (>60); PROTEIN, TOTAL 6.1 g/dL (6.4-8.2); UREA NITROGEN 10.0 mg/dL (7-18)
--- NOTE | 2025-10-19 06:43 | NUR ---
Patient awake, no acute distress. Breakfast ordered for patient per his request. No further needs.
--- NOTE | 2025-10-19 07:15 | NUR ---
REPORT REC'D FROM AZAR CROWDER. PT RESTING IN BED, IV INFUSING @ 100ML/HR TO R AC. NO ACUTE DISTRESS NOTED. SIDERAILS UP X4, CALL AVILES IN REACH, BED IN LOW POSITION AND LOCKED,
[2025-10-19] MEDS ORDERED: DIGOXIN 125 MCG TAB PO SCH ×2 (09:00→13:00)
--- NOTE | 2025-10-19 09:30 | NUR ---
Spoke with Monty. He cont. to live in his rented apartment. He has two cg who visit him daily. He has not been able to walk the last few days and was stuck in his chair. He states he cannot get into the bathroom and uses wipes for bathing. Pt was able to use a walker to stand and then pivot transfer to a . He states he is too weak at this time. He would like to return to [place] where he discharged from July 09. He denies other needs. I contacted Desmond at [facility] and they do have a bed for him and he may return when he has met his 3 night IP stay. Monty updated. I did attempt to discuss with Monty if he thinks its time he move into an PENITENTIARY. He is not ready as he states he got strong enough to return home in June and was able to live there. He has looked at PENITENTIARY, but is not yet ready.
--- NOTE | 2025-10-19 10:46 | NUR ---
PATIENT SITTING UP IN CHAIR AT THIS TIME. VITALS DONE BY RN. I&O'S CHARTED. LINENS CHANGED. CALL LIGHT IN REACH. NO FURTHER NEEDS AT THIS TIME.
--- NOTE | 2025-10-19 12:15 | NUR ---
medications reconciled
--- NOTE | 2025-10-19 12:15 | NUR ---
PT REMAINS SITTING UP IN CHAIR. WOUND CARE NURSE AT BEDSIDE. LUNCH TRAY SERVED. PT STATES PAIN IS "OK". CALL AVILES IN REACH, CHAIR LOCKED. PT INSTRUCTED TO CALL FOR ASSISTANCE.
[2025-10-19] MEDS ORDERED: ACETAMINOPHEN 325 MG TAB PO PRN (13:00)
[2025-10-19] MEDS ORDERED: SODIUM CHLORIDE 0.9% 1,000 ML IV SCH (13:00)
[2025-10-19] MEDS ORDERED: ASPIRIN 81 MG CHEW PO SCH (13:00)
--- NOTE | 2025-10-19 13:37 | EKG ---
[facility] [address] [place] [address] Signed Atrial fibrillation Left axis deviation Minimal voltage criteria for LVH, may be normal variant ( R in aVL ) Septal infarct (cited on or before 05-MAR-2025) Abnormal ECG When compared with ECG of 11-MAY-2025 10:53, Questionable change in initial forces of Septal leads Confirmed by Zackery Doran MD () on 10/19/2025 1:36:55 PM Electronically Signed By: ZACKERY DORAN MD 10/19/25 1337 PATIENT NAME: DIANE BOTELLO Electrocardiogram DATE OF : 50 PHYSICIAN: ZACKERY DORAN MD REPORT #: [id number] REPORT IS CONFIDENTIAL AND NOT TO BE RELEASED WITHOUT AUTHORIZATION
[2025-10-19] MEDS ORDERED: LORazepam 1 MG TAB PO PRN (13:45)
[2025-10-19] MEDS ORDERED: LORazepam 2 MG/ML VIAL IV/IM PRN (13:45)
--- NOTE | 2025-10-19 14:00 | NUR ---
PATIENT CALLED TO USE BEDPAN. THIS PROCESS EQUIPMENT OPERATOR AND RN IN TO ASSIST. PATIENT STOOD WITH 2PA, GAITBELT, FWW AND BED BRAUN PLACED. PATIENT THEN STOOD AGAIN 2PA FWW GAITBELT, GUTIERREZ CARE DONE. BED BRAUN REMOVED. PATIENT NOW IN CHAIR WITH FEET ELEVATED. CALL LIGHT IN REACH. NO FURTHER NEEDS AT THIS TIME.
--- NOTE | 2025-10-19 14:25 | NUR ---
WOUND CARE CONSULTED FOR WOUND/SKIN CONCERNS TO BLE. HISTORY OF PRESENT ILLNESS: PT IS A 75 YEAR OLD MALE ADMITTED ON 10/18/25 FOR COMPLICATED UTI, WEAKNESS, GAIT INSTABILITY AND FAILURE TO THRIVE. ARRIVES TO MED-SURG WITH UNNA S BOOTS IN PLACE TO BLE, REMOVED BY PRIMARY NURSE ON ADMISSION. PT REPORTS BLE DRESSINGS WERE APPLIED BY [facility]. PT IS WELL KNOWN TO [facility]. PT HAS A LONG HISTORY OF BLE SWELLING AND RECURRENT WOUNDS TO BLE. PAST MEDICAL HISTORY: A-FIB, ETOH, CHRONICALLY DEBILITATED, LIVER DISEASE, CHRONIC LOWER EXTREMITY WOUNDS, CHRONIC LOWER EXTREMITY LYMPHEDEMA. HISTORY OBTAINED FROM PT AND CHART. ALLERGIES: NKDA ASSESSMENT: UPON ASSESSMENT NOTED VENOUS DERMATITIS TO BLE WITH THICK LAYERS OF BUILT UP, DRY, DERMAL DEBRIDES. NOTED 1-2+ NON-PITTING EDEMA FROM TOES TO KNEES. NOTED DEEP SKIN FOLDS TO FEET WITH POSITIVE STEMMER SIGN. CLOTH CHECKER <3 TO BLE. PT REPORTS LOS TO BLE. BLE CLEANSED WITH WARM SOAP AND WATER, DERMAL DEBRIDES REMOVED MECHANICALLY. VASHE SOAK THEN APPLIED TO BLE AND ALLOWED TO DWELL X10 MINUTES. SCATTERED PARTIAL THICKNESS SKIN BREAKS NOTED OVER SHINS AFTER DERMAL DEBRIDES WERE REMOVED. BLE SKIN IS GERRY, PURPLE, SHINNY AND FRAGILE. ULCER NOTED TO RIGHT LATERAL ANKLE. WOUND ASSESSMENT: RIGHT LATERAL ANKLE, SUSPECTED ETIOLOGY VENOUS INSUFFICIENCY. CLASSIFICATION: FULL THICKNESS SIZE: 2 CM X 2 CM X 0.3 CM WOUND BASE: 90% YELLOW ADHERENT SLOUGH AND 10% PINK MOIST NON-GRANULAR TISSUE. EDGES: DIFFUSE ATTACHED MACERATED. EXUDATE: Yellow tinge serous, SMALL AMOUNT, NO ODOR NOTED. GUTIERREZ WOUND SKIN: INTACT, GERRY, MOIST , WARM PICTURES OBTAINED, SEE PAPER CHART. PROCEDURE: VASHE SOAK APPLIED TO RIGHT LATERAL ANKLE ULCER AND ALLOWED TO DWELL X10 MINUTES. SKIN BARRIER FILM APPLIED TO PERIWOUND SKIN AND ALLOWED TO DRY. WOUND BASE FILLED WITH MAXORB AG+ ALGINATED AND COVERED WITH FOAM. ZINC UNNA S BOOT APPLIED TO BLE FROM TOES TO KNEE WITH 50% OVER LAP FOLLOWED BY CAST PADDING AND COBAN. PT TOLERATED WELL. TREATMENT RECOMMENDATIONS: RIGHT LATERA ANKLE WOUND: APPLY VASHE SOAK AND ALLOW TO DWELL X10 MINUTES. CLEANSE WOUND WITH DEBRISOFT LOLLY AND PAT DRY. APPLY SKIN BARRIER FILM TO PERIWOUND SKIN AND ALLOW TO DRY. FILL WOUND BASE WITH MAXORB AG+ ALGINATE AND COVER WITH FOAM DRESSING. THEN APPLY ZINC UNNA S BOOT. CHANGE DRESSING THREE TIMES WEEKLY WITH UNNA-Z CHANGES. BLE CARE: CLEANSE BLE WITH WARM SOAP AND WATER OR BATH WIPES. APPLY UNNA-Z ZINC PASTE WRAPS WITH 50% OVERLAY FROM BLE FROM TOES TO KNEE FOLLOWED BY CAST PADDING AND COBAN. CHANGE DRESSINGS THREE TIMES WEEKLY. GOALS: HEAL, MANAGE EDEMA, PROTECT SKIN INTEGRITY, PROMOTE DEBRIDEMENT OF WOUND AND DECREASE BIOBURDEN.
--- NOTE | 2025-10-19 15:30 | NUR ---
REPORT RECIEVED FROM AZAR KC. PATIENT IS SITTING UP IN HIS CHAIR AND REPORTS PAIN BUT STATES "I DON'T TAKE ANYTHING FOR IT, I ALWAYS HAVE THE PAIN BECAUSE I HAVE NEUROPATHY." PATIENT OFFERED TYLENOL, BUT DECLINES. PATIENT IS WITHOUT ANY NEEDS AT THIS TIME. CALL LIGHT AND PERSONAL BELONGINGS ARE WITHIN REACH.
--- NOTE | 2025-10-19 15:48 | NUR ---
PT CARED FOR T/O SHIFT. PT WORKED WITH PT THIS AM, PLACED IN RECLINER. PT WISHING TO HAVE BM, BUT REFUSING BSC AND USE OF STAIR STEADY. MAX ASSIST X2 TO STAND AND HAVE BEDPAN PLACED ON CHAIR. SMALL SOFT BM X1. PT RETURNED TO RECLINER. PT TO BE RETURNED TO BED BY STAIR STEADY OR GRACE ONLY. IV TO R AC INFUSING NS @ 100ML/HR. PT TOLERATING PO. HAS BEEN PLEASANT AND COOPERATIVE WITH CARE. REPORT GIVEN TO ONCOMING SHIFT.
--- NOTE | 2025-10-19 16:10 | NUR ---
HOURLY ROUNDING PATIENT IS VISITING WITH A VISITOR. PATIENT TWO PERSON MAX ASSIST WITH TRANSFERING. NO REQUEST FROM PATIENT AT THIS TIME. CALL LIGHT HAS BEEN PLACED WITHIN REACH
--- NOTE | 2025-10-19 16:48 | NUR ---
PATIENT SITTING UP IN HIS CHAIR AND IS WITHOUT ANY NEEDS AT THIS TIME. CALL LIGHT AND PERSONAL BELONGINGS ARE WITHIN REACH.
--- NOTE | 2025-10-19 17:24 | NUR ---
PATIENT SITTING UP IN HIS CHAIR EATING DINNER AND IS WITHOUT ANY NEEDS AT THIS TIME. CALL LIGHT AND PERSONAL BELONGINGS ARE WITHIN REACH.
--- NOTE | 2025-10-19 18:21 | NUR ---
PATIENT SITTING UP IN CHAIR WATCHING TV AT THIS TIME. VITALS AND I&O'S DONE AND CHARTED. CALL LIGHT IN REACH. NO FURTHER NEEDS AT THIS TIME.
--- NOTE | 2025-10-19 19:32 | NUR ---
VERBAL REPORT RECEIVED BY AZAR VILLA. PATIENT RESTING IN BED AWAKE AT THIS TIME. PATIENT DENIES ANY NEEDS AT THIS TIME. BED ALARM ON FOR PATIENT SAFETY. CALL LIGHT WITHIN REACH.
--- NOTE | 2025-10-19 20:35 | NUR ---
pt in bed, room air, alert and oriented, watching TV, f/c patent draining dark yellow urine, no c/o pain,
--- NOTE | 2025-10-19 22:24 | NUR ---
ASSESSMENT COMPLETE. PATIENT COMPLAINS OF 7/10 BLE PAIN. PATIENT REQUEST IBUPROFEN. MD CALLED REGARDING PATIENT REQUEST, NEW ORDERS RECEIVED VIA TELEPHONE, READ BACK METHOD. PATIENT DENIES ANY FURTHER NEEDS AT THIS TIME. PATIENT RESTING IN BED AWAKE. A&OX4. CALL LIGHT WITHIN REACH.
[2025-10-19] MEDS ORDERED: IBUPROFEN 400 MG TAB PO PRN (22:30)
[2025-10-20] VITALS (9 sets, daily range): BP systolic 114–136; BP diastolic 39–62
--- NOTE | 2025-10-20 00:56 | NUR ---
PATIENT RESTING IN BED EYES CLOSED. RR EVEN AND UNLABORED. CALL LIGHT WITHIN REACH.
--- NOTE | 2025-10-20 03:36 | NUR ---
PATIENT RESTING IN BED AWAKE AT THIS TIME. DENIES ANY NEEDS. CALL LIGHT WITHIN REACH.
[2025-10-20 05:29] LABS: BASOPHILS 0.9 % (0.2-1.2); EOSINOPHILS 4.0 % (0.8-7.0); LYMPHOCYTES 16.9 % (21.8-53.1); MCH 29.9 PG (25.7-32.2); MCHC 32.9 g/dL (32.3-36.5); MCV 91.0 fL (79.0-92.2); MONOCYTES 10.6 % (5.3-12.2); NEUTROPHILS 66.9 % (34.0-67.9); RBC 4.01 M/uL (4.63-6.08)
[2025-10-20 06:04] LABS: ALT (SGPT) 24.0 U/L (14-59); AST (SGOT) 21.0 U/L (15-37); GLOMERULAR FILTRATION RATE,EST 90.0 mL/min (>60); PHOSPHORUS, INORGANIC 3.6 mg/dL (2.5-4.9); PROTEIN, TOTAL 6.0 g/dL (6.4-8.2); UREA NITROGEN 10.0 mg/dL (7-18)
--- NOTE | 2025-10-20 06:15 | NUR ---
PATIENT RESTING IN BED EYES CLOSED. RESPIRATIONS EVEN AND UNLABORED. CALL LIGHT WITHIN REACH.
--- NOTE | 2025-10-20 07:20 | NUR ---
RECEIVED VERBAL REPORT FORM KEVIN RN. PATIENT RESTING IN BED WITH EYES CLOSED, RESPIRATIONS EVEN AND UNLABORED. ZAPATA DRAINING BELOW WAIST, NO NEEDS IDENTIFIED AT THIS TIME. CALL LIGHT IN REACH.
[2025-10-20] MEDS ORDERED: THIAMINE HCL 200 MG/2 ML VIAL IV SCH (08:00)
[2025-10-20] MEDS ORDERED: MULTIVITAMINS THERAPEUTIC 1 EA TAB PO SCH (08:00)
[2025-10-20] MEDS ORDERED: FOLIC ACID 1 MG/0.2 ML ML IV SCH (08:00)
[2025-10-20] MEDS ORDERED: ENOXAPARIN SODIUM 40 MG/0.4 ML SYR SUB-Q SCH (09:00)
--- NOTE | 2025-10-20 09:48 | NUR ---
Patient awake, alert and oriented x3, no acute distress. Patient denies further needs, personal supplies and call light within reach.
--- NOTE | 2025-10-20 10:15 | NUR ---
SCHEDULED MEDICATIONS GIVEN PER EMAR. PATINTE SITTING UP IN REACLINER WITH LEGS ELEVATED, AWAKE AND ALERT, ABLE TO ANSWER QUESTIONS APPROPRIATLY. ASSESSMENT COMPLETED AND DOCUMENTED, PATIENT DENIES NEEDS AT THIS TIME. CALL LIGHT IN REACH.
--- NOTE | 2025-10-20 10:52 | NUR ---
ALERT AND ORIENTED IN RECLINER. PLANNING TO DC TO [facility] TOMORROW BY [facility]. LEORIA AT [facility] STATES THEY CAN ACCEPT HIM AROUND 1000 TOMORROW. [facility] SCHEDULED FOR 1000 TOMORROW MORNING FOR TRANSPORT TO [facility]. NURSING STAFF, PATIENT, DR. RAPHAEL UPDATED.
--- NOTE | 2025-10-20 10:54 | NUR ---
DC REVIEW: CHRONIC COMORBIDITIES AND HX OF AUD NOTED BARRIERS TO DC DISCHARGE TO SNF WHEN MEDICALLY READY ADD: 10/21/25 NO ACTIONS REQUIRED
--- NOTE | 2025-10-20 11:43 | NUR ---
SCHEDULED MEDICATIONS GIVEN PER EMAR ORDER. PATIENT SITTIN IN RECLINER AWAKE AND ALERT LEGS ELEVATED WITH PILLOW. PATIENT DENIES NEEDS AT THIS TIME. CALL LIGHT AND BELONGINGS IN REACH.
--- NOTE | 2025-10-20 11:53 | NUR ---
NEW LINENS ON BED, ROOM CLEANED. PATIENT DENIES NEEDS AT THIS TIME. CALL LIGHT IN REACH.
[2025-10-20] MEDS ORDERED: PHARMACY RENAL DOSE ADJUSTMENT 1 DOSE MISC PO SCH (12:00)
--- NOTE | 2025-10-20 13:25 | NUR ---
ROUNDED ON PATIENT, SITTING IN RECLINER, FEET ELEVATED WTIH PILLOWS. ZAPATA DRAINING BELOW WAIST. PATIENT DENIES NEEDS AT THIS TIME. CALL LIGHT IN REACH.
--- NOTE | 2025-10-20 14:10 | NUR ---
PATIENT IS SITTING IN THE CHAIR WITH BILATERAL LOWER EXTREMITIES ELEVATED. PATIENT WITH EYES OPEN AND RESPIRATIONS ARE EVEN AND UNLABORED. PATIENT WITH A MASK ON. CALL LIGHT AND PERSONAL BELONGINGS ARE WITHIN REACH.
--- NOTE | 2025-10-20 15:40 | NUR ---
PATIENT SITTING UP IN RECLINER WITH FEEL ELEVATED, RESTING WITH EYES CLOSED, RESPIRATIONS EVEN AND UNLABORED. NO NEEDS IDENTIFIED AT THIS TIME. CALL LIGHT IN REACH.
--- NOTE | 2025-10-20 16:25 | NUR ---
PATIENT IS SITTING IN THE CHAIR WITH BILATERAL LOWER EXTREMITIES ELEVATED. PATIENT WITH EYES OPEN AND RESPIRATIONS ARE EVEN AND UNLABORED. PATIENT REPORTS NO NEEDS AT THIS TIME. CALL LIGHT AND PERSONAL BELONGINGS ARE WITHIN REACH.
--- NOTE | 2025-10-20 16:32 | NUR ---
FOCUSED ASSESSMENT COMPLETED. PATIENT SITTING IN RECLINER WITH BLE ELEVATED WITH PILLOWS. PATIENT AWAKE AND ALERT, ANSWERS QUESTIONS APPROPRIATELY. ZAPATA/GUTIERREZ CARE PROVIDED BY THIS RN. SHAMPOO CAP PROVIDED TO CLEAN HAIR, WARM WASH CLOTH FOR FACE/HANDS. PATIENT DENIES NEEDS AT THIS TIME. CALL LIGHT IN REACH.
--- NOTE | 2025-10-20 17:28 | NUR ---
PATIENT REMAINS IN THE CHAIR WITH BILATERAL LOWER EXTREMITIES ELEVATED. PATIENT WITH EYES OPEN AND RESPIRATIONS ARE EVEN AND UNLABORED. PATIENT DINNER TRAY REMOVED AT THIS TIME. PATIENT STATED NO FURTHER NEEDS AT THIS TIME. CALL LIGHT AND PERSONAL BELONGINGS ARE WITHIN REACH.
--- NOTE | 2025-10-20 18:23 | NUR ---
PATIENT SITTING IN RECLINER PILLOW UNDER R HIP. BLE ELEVATED WITH PILLOWS. PATIENT AWAKE AND ALERT ANWERING QUESTIONS APPROPRIATLY. NO NEEDS AT THIS TIME. CALL LIGHT AND BELONGINGS IN REACH.
--- NOTE | 2025-10-20 19:30 | NUR ---
VERBAL REPORT RECEIVED FROM ALETA AND CASSI ASKEW. PATIENT SITTING UP IN BED AT THIS TIME. DENIES ANY NEEDS AT THIS TIME. CALL LIGHT WITHIN REACH.
--- NOTE | 2025-10-20 20:21 | NUR ---
ASSESSMENT COMPLETE. PATIENT COMPLAINS OF 7/10 PAIN THE BLE AND UPPER EXTREMITIES STATES THIS IS CHRONIC, PRN PAIN MEDICATION ADMINISTERED ( SEE EMAR). PATIENT DENIES ANY NEEDS AT THIS TIME. FRESH ICE WATER PROVIDED. CALL LIGHT WITHIN REACH.
--- NOTE | 2025-10-20 22:37 | NUR ---
PATIENT USES CALL LIGHT. DOOR OPEN PER PATIENT REQUEST. PATIENT DENIES ANY FURTHER NEEDS AT THIS TIME. CALL LIGHT WITHIN REACH. PATIENT SITTING UP IN BED AWAKE AT THIS TIME.
--- NOTE | 2025-10-20 23:49 | NUR ---
PATIENT RESTING EYES CLOSED, RESPIRATIONS EVEN AND UNLABORED. CALL LIGHT WITHIN REACH.
--- NOTE | 2025-10-21 01:40 | NUR ---
PATIENT RESTING IN BED EYES CLOSED, RESPIRATIONS EVEN AND UNLABORED. NO NEEDS AT THIS TIME. CALL LIGHT WITHIN REACH.
--- NOTE | 2025-10-21 04:20 | NUR ---
PATIENT RESTING EYES CLOSED, RESPIRATIONS EVEN AND UNLABORED. CALL LIGHT WITHIN REACH.
[2025-10-21 05:31] VITALS: BP 125/69
[2025-10-21 05:46] LABS: BASOPHILS 0.6 % (0.2-1.2); EOSINOPHILS 4.7 % (0.8-7.0); LYMPHOCYTES 13.6 % (21.8-53.1); MCH 30.0 PG (25.7-32.2); MCHC 32.7 g/dL (32.3-36.5); MCV 91.8 fL (79.0-92.2); MONOCYTES 10.5 % (5.3-12.2); NEUTROPHILS 70.0 % (34.0-67.9); RBC 4.00 M/uL (4.63-6.08)
[2025-10-21 05:53] VITALS: BP 125/69
--- NOTE | 2025-10-21 05:53 | NUR ---
PATIENT RESTING IN BED AWAKE AT THIS TIME. LAB IN THE ROOM. VSS. PATIENT DENIES ANY NEEDS AT THIS TIME. FRESH ICE WATER PROVIDED. CALL LIGHT WITHIN REACH.
[2025-10-21 06:16] LABS: ALT (SGPT) 21.0 U/L (14-59); AST (SGOT) 27.0 U/L (15-37); GLOMERULAR FILTRATION RATE,EST 88.0 mL/min (>60); PROTEIN, TOTAL 6.1 g/dL (6.4-8.2); UREA NITROGEN 9.0 mg/dL (7-18)
[2025-10-21] MEDS ORDERED: FOLIC ACID 1 MG TAB PO SCH (08:00)
--- NOTE | 2025-10-21 08:00 | NUR ---
Spoke with Monty. He is ready and wanting to go to [place] today. He denies needs. He has questions about his antibiotics and I let him know I passed this on to Dr. Potts.
[2025-10-21] MEDS ORDERED: CEFPODOXIME PR200 MG PO (08:28)
--- NOTE | 2025-10-21 09:20 | NUR ---
Beebe catheter removed per order, cath tip intact. Patient tolerated well.
[2025-10-21 09:29] VITALS: BP 110/62
--- NOTE | 2025-10-21 09:33 | NUR ---
BED BATH COMPLETED BY THIS LABORER CHEESEMAKING AND HOA LUTZ. A CLEAN GOWN AND PJ BOTTOMS PROVIDED. DISCHARGE V.S. TAKEN AND PERSONAL BELONGINGS PACKED.
[2025-10-21 10:27] VITALS: BP 110/62
[2025-10-22] MEDS ORDERED: THIAMINE HCL 100 MG TAB PO SCH (08:00)
[2025-10-22] MEDS ORDERED: FOLIC ACID 1 MG TAB PO SCH (08:00)
== END 2025-10-21 09:50 | DRG 690 ==
LOC: ED 15:03 → MS 23:01
PROVIDERS: Emergency Medicine; Family Medicine; ADMIT Family Medicine; ATTEND Family Medicine
PROC: 3E03329 Introduction of Other Anti-infective into Peripheral Vein, Percutaneous Approach (ICD-10-PCS; principal; 2025-10-18)
PROC: 0T9B70Z Drainage of Bladder with Drainage Device, Via Natural or Artificial Opening (ICD-10-PCS; 2025-10-18)
DX: N39.0 Urinary tract infection, site not specified (principal); L97.319 Non-pressure chronic ulcer of right ankle with unspecified severity; I48.91 Unspecified atrial fibrillation; R53.81 Other malaise; I10 Essential (primary) hypertension; G62.9 Polyneuropathy, unspecified; F10.10 Alcohol abuse, uncomplicated; R62.7 Adult failure to thrive; Z74.1 Need for assistance with personal care; R26.89 Other abnormalities of gait and mobility; Z66 Do not resuscitate; R53.1 Weakness; M79.89 Other specified soft tissue disorders; Z68.29 Body mass index [BMI] 29.0-29.9, adult; Z90.89 Acquired absence of other organs; Z87.891 Personal history of nicotine dependence; Z87.39 Personal history of other diseases of the musculoskeletal system and connective tissue; Z98.890 Other specified postprocedural states; Z90.49 Acquired absence of other specified parts of digestive tract; Z79.899 Other long term (current) drug therapy; Z79.82 Long term (current) use of aspirin; Z79.1 Long term (current) use of non-steroidal anti-inflammatories (NSAID)
CPT/HCPCS: 36415; 71045; 80053; 80162; 81001; 82550; 83735; 83880; 84100; 84484; 85025; 93005; 93010; 94762; 96374; 97161; 97166; 97530; 97535; 99285-25; A9270; J0696; J1650; J3411; J7030